=== PATIENT | male | born 1950 | race American Indian/Alaskan Native ===

== ENCOUNTER 2020-09-15 06:28 | Observation (INO) | payer MEDICARE, OTHER ==
[2020-09-15] MEDS ORDERED: dilTIAZem 25 MG/5 ML INJ IV ONE (06:48)
--- NOTE | 2020-09-15 06:55 | Emergency Department Report ---
HPI - General Chief Complaint: Arrhythmia/Palpitations Time Seen by Provider: 09/15/20 06:42 - HPI HPI: Room 4 The patient is a 70-year-old male present with a chief complaint of "feeling hot." The patient states he was at home when he just began feeling hot. Patient states "I was just burning up." The patient states this is why he called 911. Patient denied ever having palpitations, chest pain shortness of breath or cough. Patient states in the ED he feels significantly better than before and currently has no complaints. Patient has a history of atrial fibrillation and is on Xarelto ED Past Medical Hx - Past Medical History Previous Medical History?: Yes Hx Hypertension: Yes Hx HIV: Yes (Unknown last CD4. Followed at [facility]) Additional medical history: Afib - Surgical History Past Surgical History?: No Additional Surgical History: Herniorrhaphy - Family History Family history: no significant - Social History Smoking Status: Former Smoker (None since 1985) Substance Use Type: None (Denies illicit drug use) ED Review of Systems ROS: Stated complaint: AFIB RVR Other details as noted in HPI Constitutional: fever (Subjective) Eyes: denies: eye pain ENT: denies: throat pain Respiratory: denies: shortness of breath Cardiovascular: denies: chest pain, palpitations Endocrine: no symptoms reported Gastrointestinal: denies: abdominal pain Genitourinary: denies: dysuria Musculoskeletal: denies: back pain Neurological: denies: headache Physical Exam - Physical Exam Vital Signs: Vital Signs 09/15/20 06:34 Temperature 98.2 F Pulse Rate 169 H Respiratory 22 Rate Blood Pressure 151/121 [Left] O2 Sat by Pulse 99 Oximetry Physical Exam: GENERAL: The patient is well-developed well-nourished male lying on stretcher no t appearing to be in acute distress. [] HEENT: Normocephalic. Atraumatic. Extraocular motions are intact. Patient has moist mucous membranes. NECK: Supple. Trachea midline CHEST/LUNGS: Clear to auscultation. There is no respiratory distress noted. HEART/CARDIOVASCULAR: Irregularly irregular. There is tachycardia. There is no gallop rub or murmur. ABDOMEN: Abdomen is soft, nontender. Patient has normal bowel sounds. There is no abdominal distention. SKIN: There is no rash. There is no edema. There is no diaphoresis. NEURO: The patient is awake, alert, and oriented. The patient is cooperative. The patient has no focal neurologic deficits. The patient has normal speech MUSCULOSKELETAL: There is no evidence of acute injury. ED Course Vital Signs 09/15/20 06:34 Temperature 98.2 F Pulse Rate 169 H Respiratory 22 Rate Blood Pressure 151/121 [Left] O2 Sat by Pulse 99 Oximetry ED Medical Decision Making - Lab Data Result diagrams: 09/15/20 07:12 09/15/20 07:12 - EKG Data -: EKG Interpreted by Me Rate: tachycardia (139 bpm) - EKG Data When compared to previous EKG there are: previous EKG unavailable Interpretation: other (A. fib with a rapid ventricular response) - Radiology Data Radiology results: report reviewed (Chest x-ray), image reviewed (Chest x-ray) interpreted by me: Chest x-ray-no focal infiltrates, no pneumothorax. No foreign body seen [facility] [address] [place] [address] XRay Report Signed Patient: ISSA PAYAN MR#: [id number] 4 : 1950 Acct:[id number] Age/Sex: 70 / M ADM Date: 09/15/20 Loc: ED Attending Dr: Ordering Physician: ROBERT GONZALEZ MD Date of Service: 09/15/20 Procedure(s): XR chest 1V ap Accession Number(s): [id number] cc: ROBERT GONZALEZ MD Fluoro Time In Minutes: CHEST 1 VIEW INDICATION: Tachycardia. COMPARISON: None FINDINGS: Support devices: None. Heart: Within normal limits. Lungs/Pleura: No acute air space or interstitial disease. Additional findings: None. IMPRESSION: No acute findings. Signer Name: Ray Hall Jr, MD Signed: 09/15/2020 7:55 AM Workstation Name: [id number] Transcribed By: TTR Dictated By: RAY HALL JR, MD Electronically Authenticated By: RAY HALL JR, MD Signed Date/Time: 09/15/20754 DD/ 4 TD/TT: Print Cancel - Differential Diagnosis A. fib with rapid ventricular response, pneumonia, Critical care attestation.: If time is entered above; I have spent that time in minutes in the direct care of this critically ill patient, excluding procedure time. ED Disposition Clinical Impression: Atrial fibrillation with rapid ventricular response, Hypomagnesemia Disposition: OP ADMIT IP TO THIS HOSP Is pt being admited?: Yes Does the pt Need Aspirin: Yes Condition: Fair Time of Disposition: 10:45 (Hospitalist paged)
[2020-09-15 07:43] LABS: Basophils % (Auto) 0.1 % (0.0-1.8); Hematocrit 34.9 % (35.5-45.6); Hemoglobin 11.8 gm/dl (11.8-15.2); Lymphocytes # (Auto) 0.6 K/mm3 (1.2-5.4); Lymphocytes % (Auto) 4.1 % (13.4-35.0); Mean Corpuscular HGB Conc 34 % (32-34); Mean Corpuscular Volume 96 fl (84-94); Monocytes # (Auto) 1.3 K/mm3 (0.0-0.8); Monocytes % (Auto) 9.4 % (0.0-7.3); Platelet Count 233 K/mm3 (140-440); Red Blood Count 3.65 M/mm3 (3.65-5.03); Red Cell Distribution Width 12.8 % (13.2-15.2)
[2020-09-15] MEDS ORDERED: SODIUM CHLORIDE 0.9% 1000 ML 1,000 ML IV ONE ×2 (07:49→09:42)
--- NOTE | 2020-09-15 08:00 | XRay Report ---
CHEST 1 VIEW INDICATION: Tachycardia. COMPARISON: None FINDINGS: Support devices: None. Heart: Within normal limits. Lungs/Pleura: No acute air space or interstitial disease. Additional findings: None. IMPRESSION: No acute findings. Signer Name: Ray Suazo Jr, MD Signed: 09/15/2020 7:55 AM Workstation Name: [id number]
[2020-09-15 08:05] LABS: Alanine Aminotransferase 25 units/L (7-56); Albumin 2.3 g/dL (3.9-5); BUN/Creatinine Ratio 11; Blood Urea Nitrogen 30 mg/dL (9-20); Calcium 8.7 mg/dL (8.4-10.2); Hemolysis Index 42
[2020-09-15 09:37] LABS: Free T4 (Free Thyroxine) 1.68 ng/dL (0.76-1.46)
[2020-09-15] MEDS ORDERED: MAGNESIUM SULFATE 2 GM/50 ML BAG IV ONE (10:33)
[2020-09-15] MEDS ORDERED: dilTIAZem/D5W 100 MG/100 ML BAG IV SCH (11:00)
--- NOTE | 2020-09-15 11:30 | History and Physical Report ---
History of Present Illness Date of admission: 09/15/20 10:52 Chief complaint: I was not feeling good this morning History of present illness: 70 YO Male with HIV, HTN, Atrial Fib presents to ED for evaluation. Patient reports "I was just burning up". Patient states that he was not feeling well this morning. EMS was notified and upon arrival the patient was found to be in distress with a heart rate in the 170s. Patient transported to [facility] for further care and evaluation of the aforementioned symptoms. The patient was seen and evaluated in the emergency department. All lab and imaging studies reviewed. The patient was found to have a heart rate in the 170s on the medical psychotherapist as well as a blood pressure of 74/45. Patient initiated on IV Cardizem for rate control and control of hemodynamic instability with mild improvement in symptoms. Patient admitted to [facility] and initiated on IV antiarrhythmic therapy with amiodarone. Patient also found to have acute kidney injury, systemic inflammatory response syndrome, hyponatremia, hypomagnesemia, as well as metabolic acidosis. Patient denies fever, chills, chest pain, palpitations, productive cough, skin rash, recent ill contacts, or known exposure to COVID-19. No prior admission for review. Cardiology team consulted in ED. Nephrology team consulted in ED. No medication listed at time of admission for reconciliation. Advanced care planning conducted in ED. Past History Past Medical History: atrial fib, HIV/AIDS, hypertension Past Surgical History: hernia repair Social history: single. denies: smoking, alcohol abuse, prescription drug abuse Family history: hypertension Medications and Allergies Allergies Allergy/AdvReac Type Severity Reaction Status Date / Time No Known Allergies Allergy Unverified 09/15/20 06:37 Active Meds: Active Medications Diltiazem HCl (Cardizem/D5w 100mg/100ml) 100 mg in 100 mls @ 5 mls/hr IV TITR EDIE; Protocol Review of Systems Constitutional: weakness, no weight loss, no weight gain, no fever, no chills Ears, nose, mouth and throat: no ear pain, no ear discharge, no tinnitis, no decreased hearing, no nose pain Cardiovascular: no chest pain, no orthopnea, no palpitations, no rapid/irregular heart beat Respiratory: no cough, no excessive sputum, no hemoptysis Gastrointestinal: no nausea, no vomiting, no diarrhea, no constipation Genitourinary Male: no hematuria, no flank pain, no discharge, no urinary freque ncy, no urinary hesitancy Rectal: no pain, no incontinence, no bleeding Musculoskeletal: no neck pain, no low back pain, no shooting leg pain, no leg numbness/tingling Integumentary: no rash, no pruritis, no redness, no sores, no jaundice Neurological: no head injury, no transient paralysis, no paralysis, no numbness, no syncope, no tremors Psychiatric: no anxiety, no memory loss, no change in sleep habits, no insomnia, no hypersomnia, no change in appetite Endocrine: no cold intolerance, no heat intolerance, no polyphagia, no excessive thirst, no polydipsia, no nocturia, no excessive sweating, no flushing Hematologic/Lymphatic: no easy bruising, no easy bleeding, no lymphadenopathy Allergic/Immunologic: no persistent infections, no anaphylaxis Exam - Constitutional Vitals: Temp Pulse Resp BP Pulse Ox 98.2 F 109 H 21 100/63 93 09/15/20 06:34 09/15/20 07:50 09/15/20 07:50 09/15/20 10:00 09/15/20 09:00 General appearance: Present: mild distress - EENT Eyes: Present: PERRL ENT: hearing intact, clear oral mucosa - Neck Neck: Present: supple, normal ROM - Respiratory Respiratory effort: normal Respiratory: bilateral: CTA - Cardiovascular Rhythm: irregularly irregular Heart Sounds: Present: S1 & S2. Absent: rub, click - Extremities Extremities: pulses symmetrical, No edema Peripheral Pulses: within normal limits - Abdominal General gastrointestinal: Present: soft, non-tender, non-distended, normal bowel sounds Male genitourinary: Present: normal - Integumentary Integumentary: Present: clear, warm, dry - Musculoskeletal Musculoskeletal: gait normal, strength equal bilaterally - Psychiatric Psychiatric: appropriate mood/affect, intact judgment & insight - Neurologic Neurologic: CNII-XII intact, moves all extremities HEART Score - HEART Score Troponin: Troponin T < 0.010 ng/mL (0.00-0.029) 09/15/20 10:13 Results - Labs CBC & Chem 7: 09/15/20 07:12 09/15/20 07:12 Labs: Abnormal lab results 09/15/20 09/15/20 09/15/20 Range/Units 07:12 07:12 07:12 WBC 13.5 H (4.5-11.0) K/mm3 Hct 34.9 L (35.5-45.6) % MCV 96 H (84-94) fl RDW 12.8 L (13.2-15.2) % Lymph % (Auto) 4.1 L (13.4-35.0) % [place] % (Auto) 9.4 H (0.0-7.3) % Lymph # (Auto) 0.6 L (1.2-5.4) K/mm3 [place] # (Auto) 1.3 H (0.0-0.8) K/mm3 Seg Neutrophils % 86.4 H (40.0-70.0) % Seg Neutrophils # 11.7 H (1.8-7.7) K/mm3 Sodium 128 L (137-145) mmol/L Chloride 96.5 L (98-107) mmol/L Carbon Dioxide 20 L (22-30) mmol/L BUN 30 H (9-20) mg/dL Creatinine 2.8 H (0.8-1.3) mg/dL Glucose 115 H (75-100) mg/dL Magnesium 1.00 L (1.7-2.3) mg/dL Albumin 2.3 L (3.9-5) g/dL Free T4 (0.76-1.46) ng/dL 09/15/20 Range/Units 07:12 WBC (4.5-11.0) K/mm3 Hct (35.5-45.6) % MCV (84-94) fl RDW (13.2-15.2) % Lymph % (Auto) (13.4-35.0) % [place] % (Auto) (0.0-7.3) % Lymph # (Auto) (1.2-5.4) K/mm3 [place] # (Auto) (0.0-0.8) K/mm3 Seg Neutrophils % (40.0-70.0) % Seg Neutrophils # (1.8-7.7) K/mm3 Sodium (137-145) mmol/L Chloride (98-107) mmol/L Carbon Dioxide (22-30) mmol/L BUN (9-20) mg/dL Creatinine (0.8-1.3) mg/dL Glucose (75-100) mg/dL Magnesium (1.7-2.3) mg/dL Albumin (3.9-5) g/dL Free T4 1.68 H (0.76-1.46) ng/dL Assessment and Plan - Patient Problems (1) Atrial fibrillation with rapid ventricular response Status: Acute Plan to address problem: Chads 2Vasc Score:1, patient treated with IV Cardizem with mild improvement in symptoms. Cardizem discontinued and patient initiated on IV amiodarone therapy. Thyroid panel, urine drug screen, cardiology team consulted. (2) Acute kidney injury (LOLI) with acute tubular necrosis (ATN) Status: Acute Plan to address problem: IV fluid resuscitation therapy, BMP, repeat BMP in a.m. to monitor serum creatinine as well as GFR. Urine sodium, urine creatinine, bilateral renal ultrasound, PSA level. (3) Systemic inflammatory response syndrome Status: Acute Plan to address problem: Empiric IV antibiotic therapy x1 dose, CBC, CMP, repeat CBC in a.m. No source of infection found at this time. (4) Hyponatremia syndrome Status: Acute Plan to address problem: IV fluid resuscitation therapy as clinically indicated, BMP, repeat BMP in a.m. (5) Metabolic acidosis Status: Acute Plan to address problem: IV fluid resuscitation therapy, BMP, repeat BMP in a.m., supportive care. (6) Hypomagnesemia Status: Acute Plan to address problem: Repleted in ED. (7) DVT prophylaxis Status: Acute Plan to address problem: SCD to bilateral lower extremities while in bed, patient is ambulatory. (8) Advance care planning Status: Acute Plan to address problem: Disease education conducted, care plan discussed, diagnosis discussed, prognosis discussed, patient is full code. Patient knowledges understanding and agreement with care plan, +30 minutes.
[2020-09-15] MEDS ORDERED: AMIODARONE 900 MG in DEXTROSE 5% IN WATER 482 ML IV SCH (13:00)
[2020-09-15 15:01] VITALS: BP 94/60
[2020-09-15] MEDS ORDERED: ALBUTEROL 2.5 MG/3 ML NEBU IH PRN (17:34)
[2020-09-15] MEDS ORDERED: ACETAMINOPHEN 325 MG TAB PO PRN (17:34)
[2020-09-15] MEDS ORDERED: SODIUM CHLORIDE 0.9% 1000 ML 1,000 ML IV SCH (17:45)
[2020-09-15] MEDS ORDERED: cefTRIAXone/NS 1 GM/50 ML 1 GM/50 ML BAG IV ONE (18:00)
[2020-09-15] MEDS ORDERED: FAMOTIDINE 20 MG TAB PO SCH (22:00)
--- NOTE | 2020-09-16 10:47 | Electrocardiograph Report ---
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
--- NOTE | 2020-09-16 11:52 | Event Note ---
Date: 09/15/20 Pt left AMA prior to completion of workup and treatment. Pt informed that departure may result in worsening symptoms and even .
== END 2020-09-15 14:50 | disposition left against medical advice (07) ==
LOC: ED 06:28 → 3A 10:52 → IMCU 13:03
PROVIDERS: ADMIT Internal Medicine; ATTEND Internal Medicine
DX: I48.20 Chronic atrial fibrillation, unspecified (principal); R65.10 Systemic inflammatory response syndrome (SIRS) of non-infectious origin without acute organ dysfunction; N17.9 Acute kidney failure, unspecified; E83.42 Hypomagnesemia; E87.1 Hypo-osmolality and hyponatremia; E87.2 Acidosis; Z21 Asymptomatic human immunodeficiency virus [HIV] infection status; Z98.890 Other specified postprocedural states; Z87.891 Personal history of nicotine dependence
CPT/HCPCS: 36415; 71045; 80053; 83735; 84439; 84443; 84484; 85025; 93005; G0378; J0282; J3475; J7030; J7060

== ENCOUNTER 2020-09-17 09:20 | Inpatient (IN) | payer MEDICARE, OTHER ==
[2020-09-17] MEDS ORDERED: SODIUM CHLORIDE 0.9% 1000 ML 1,000 ML IV ONE ×2 (10:43→13:10)
[2020-09-17] MEDS ORDERED: dilTIAZem 25 MG/5 ML INJ IV ONE (10:43)
--- NOTE | 2020-09-17 10:45 | Emergency Department Report ---
HPI - General Chief Complaint: Dyspnea/Respdistress Time Seen by Provider: 09/17/20 09:58 - HPI HPI: This is a 70-year-old male presents to the emergency department with a complaint of a 3-day history of shortness of breath. He has a past medical history of HIV, hypertension and atrial fibrillation. The patient says that he is compliant with his Xarelto. The patient was admitted to this hospital 2 days ago, 09/15, for similar complaints. Shortly after the patient was admitted he left AMA. His diagnosis from that day was A. fib with RVR, hyponatremia, hypomagnesemia and acute kidney injury. 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 He has not taken anything for symptoms prior to presentation today. He denies any fever, chest pain, lower extremity swelling. ED Past Medical Hx - Past Medical History Previous Medical History?: Yes Hx Hypertension: Yes Hx HIV: Yes (Unknown last CD4. Followed at [place]) Additional medical history: Afib - Surgical History Additional Surgical History: Herniorrhaphy - Social History Smoking Status: Former Smoker (None since 1985) Substance Use Type: None (Denies illicit drug use) ED Review of Systems ROS: Stated complaint: SOB Other details as noted in HPI Comment: All other systems reviewed and negative Constitutional: denies: chills, fever Eyes: denies: eye pain, vision change ENT: denies: ear pain, throat pain Respiratory: shortness of breath, wheezing. denies: cough Cardiovascular: denies: chest pain, edema Gastrointestinal: denies: abdominal pain, vomiting Genitourinary: denies: dysuria, discharge Musculoskeletal: denies: back pain, arthralgia Skin: denies: rash, lesions Neurological: denies: headache, weakness Physical Exam - Physical Exam Vital Signs: Vital Signs 09/17/20 09:47 Temperature 98.3 F Pulse Rate 74 Respiratory 35 H Rate Blood Pressure 78/43 [Right] O2 Sat by Pulse 95 Oximetry Physical Exam: GENERAL: The patient is ill-appearing. HENT: Normocephalic. Atraumatic. Patient has moist mucous membranes. EYES: Extraocular motions are intact. Pupils equal reactive to light bilaterally. NECK: Supple. Trachea is midline. CHEST/LUNGS: Coarse breath sounds throughout the chest. There is some tachypnea but no accessory muscle use. HEART/CARDIOVASCULAR: Irregular rhythm with mild to moderate tachycardia. ABDOMEN: Abdomen is soft, nontender. Patient has normal bowel sounds. SKIN: Skin is warm and dry. NEURO: The patient is awake, alert, and oriented. The patient is cooperative. The patient has no focal neurologic deficits. Normal speech. MUSCULOSKELETAL: There is no tenderness or deformity. There is no limitation range of motion. ED Course Vital Signs 09/17/20 09:47 Temperature 98.3 F Pulse Rate 74 Respiratory 35 H Rate Blood Pressure 78/43 [Right] O2 Sat by Pulse 95 Oximetry ED Medical Decision Making - Lab Data Result diagrams: 09/17/20 10:47 09/17/20 10:47 Lab Results 09/17/20 09/17/20 09/17/20 Range/Units 10:28 10:47 10:47 WBC 11.1 H (4.5-11.0) K/mm3 RBC 3.44 L (3.65-5.03) M/mm3 Hgb 11.2 L (11.8-15.2) gm/dl Hct 32.8 L (35.5-45.6) % MCV 95 H (84-94) fl MCH 32 (28-32) pg MCHC 34 (32-34) % RDW 13.7 (13.2-15.2) % Plt Count 168 (140-440) K/mm3 Seg Neutrophils % Inspector Fibrous Wallboard PT 32.9 H (12.2-14.9) Sec. INR 3.16 H (0.87-1.13) APTT 51.1 H (24.2-36.6) Sec. ABG pH 7.508 H (7.320-7.450) POC ABG pCO2 22.8 L (32.0-48.0) mmHg POC ABG pO2 66.8 L (83-108) mmHg POC ABG HCO3 17.7 ABG O2 Saturation 93.4 (0-100) POC ABG Base Excess -3.5 ABG Hemoglobin 12.7 (12.0-17.5) ABG Oxyhemoglobin 92.7 L (94-98) ABG Methemoglobin 0.3 (0.0-1.5) ABG Sodium 127.4 L (136.0-145.0) mmol/L ABG Potassium 4.7 H (3.40-4.50) mmol/L ABG Chloride 101.0 (98-107) mmol/L ABG Glucose 121 H (65-95) mg/dL Carboxyhemoglobin 0.4 L (0.5-1.5) FiO2 % 21 Sodium (137-145) mmol/L Potassium (3.6-5.0) mmol/L Chloride (98-107) mmol/L Carbon Dioxide (22-30) mmol/L Anion Gap mmol/L BUN (9-20) mg/dL Creatinine (0.8-1.3) mg/dL Estimated GFR ml/min BUN/Creatinine Ratio % Glucose (75-100) mg/dL Calcium (8.4-10.2) mg/dL Magnesium (1.7-2.3) mg/dL Total Bilirubin (0.1-1.2) mg/dL AST (5-40) units/L ALT (7-56) units/L Alkaline Phosphatase (35-129) units/L Troponin T (0.00-0.029) ng/mL NT-Pro-B Natriuret Pep (0-900) pg/mL Total Protein (6.3-8.2) g/dL Albumin (3.9-5) g/dL Albumin/Globulin Ratio % Arterial Blood Glucose 121 H (65-95) mg/dL Arterial Blood Ionized Calcium 5.0 (4.6-5.3) mg/dL 09/17/20 09/17/20 09/17/20 Range/Units 10:47 10:47 10:47 WBC (4.5-11.0) K/mm3 RBC (3.65-5.03) M/mm3 Hgb (11.8-15.2) gm/dl Hct (35.5-45.6) % MCV (84-94) fl MCH (28-32) pg MCHC (32-34) % RDW (13.2-15.2) % Plt Count (140-440) K/mm3 Seg Neutrophils % PT (12.2-14.9) Sec. INR (0.87-1.13) APTT (24.2-36.6) Sec. ABG pH (7.320-7.450) POC ABG pCO2 (32.0-48.0) mmHg POC ABG pO2 (83-108) mmHg POC ABG HCO3 ABG O2 Saturation (0-100) POC ABG Base Excess ABG Hemoglobin (12.0-17.5) ABG Oxyhemoglobin (94-98) ABG Methemoglobin (0.0-1.5) ABG Sodium (136.0-145.0) mmol/L ABG Potassium (3.40-4.50) mmol/L ABG Chloride (98-107) mmol/L ABG Glucose (65-95) mg/dL Carboxyhemoglobin (0.5-1.5) FiO2 % Sodium 125 L (137-145) mmol/L Potassium 4.7 (3.6-5.0) mmol/L Chloride 95.3 L (98-107) mmol/L Carbon Dioxide 17 L (22-30) mmol/L Anion Gap 17 mmol/L BUN 64 H (9-20) mg/dL Creatinine 4.6 H D (0.8-1.3) mg/dL Estimated GFR 15 ml/min BUN/Creatinine Ratio 14 % Glucose 104 H (75-100) mg/dL Calcium 9.1 (8.4-10.2) mg/dL Magnesium 1.80 (1.7-2.3) mg/dL Total Bilirubin 1.20 (0.1-1.2) mg/dL AST 69 H (5-40) units/L ALT 40 (7-56) units/L Alkaline Phosphatase 86 (35-129) units/L Troponin T 0.061 H D (0.00-0.029) ng/mL NT-Pro-B Natriuret Pep 42523 H (0-900) pg/mL Total Protein 6.7 (6.3-8.2) g/dL Albumin 1.9 L (3.9-5) g/dL Albumin/Globulin Ratio 0.4 % Arterial Blood Glucose (65-95) mg/dL Arterial Blood Ionized Calcium (4.6-5.3) mg/dL - EKG Data -: EKG Interpreted by Me - EKG Data When compared to previous EKG there are: no significant change Interpretation: unchanged when compared t (09/15/20), other (Atrial fibrillation with a rate of 125 bpm, normal axis. Q waves to the septal leads. No ST elevation MA) - Radiology Data Radiology results: image reviewed interpreted by me: Chest x-ray shows mild cardiomegaly and pulmonary vascular congestion. No obvious pneumonia. No pneumothorax. - Medical Decision Making This patient presents to the emergency department with a 3-day history of shortness of breath. He left AMA after being admitted 2 nights ago. He presents today in atrial fibrillation with RVR with a heart rate of about 120-130. Per triage and EMS records the patient came in on a room air pulse ox of about 85%. He was given oxygen via nasal cannula and then a nonrebreather. After the patient spent some time on the nonrebreather his oxygen was removed and he had a room air blood gas that showed some mild hypoxemia, respiratory alkalosis and mild metabolic acidosis. We were able to get the patient down to supplemental oxygen via nasal cannula and he is keeping his oxygen saturation in the mid 90s. EKG does not have any morphology consistent with ST elevation myocardial infarc tion. Chest x-ray shows some pulmonary vascular congestion and cardiomegaly. No obvious pneumonia or pneumothorax. The patient's labs have multiple abnormalities including hyponatremia with a sodium of 125, acute kidney injury with a creatinine level of 4.6 and a GFR of about 15, elevated troponin and a very elevated BNP level. While the patient initially came in with some low blood pressure, at the time of my initial examination his blood pressure had normalized but he did remain in A. fib with RVR. He was given a small dose of Cardizem with some improvement in the rate rate but he did not convert to sinus rhythm. However, once again, his blood pressure dropped. He was given 2 L of IV fluid resuscitation and currently has a MAP of 67. Patient will be admitted to the hospital for further evaluation treatment was accepted for patient by the hospitalist, Dr. Zamora. Critical Care Time: Yes Critical care time in (mins) excluding proc time.: 35 Critical care attestation.: If time is entered above; I have spent that time in minutes in the direct care of this critically ill patient, excluding procedure time. Critical care time was spent on this patient in doing his initial evaluation, multiple reevaluations, ordering and interpretation of labs and imaging, IV calcium channel ruddy for his A. fib with RVR for rate control, multiple liters of IV fluid for treatment of his hypotension, multiple discussions with the patient and discussion with the hospitalist service. Critical Care Time: 35 minutes ED Disposition Clinical Impression: Hyponatremia syndrome, Acute kidney injury (LOLI) with acute tubular necrosis (ATN), Atrial fibrillation with RVR, NSTEMI (non-ST elevated myocardial infarction) Hypotension Qualifiers: Hypotension type: unspecified hypotension type Qualified Code(s): I95.9 - Hypotension, unspecified Disposition: 09 OP ADMIT IP TO THIS HOSP Is pt being admited?: Yes Condition: Serious Time of Disposition: 14:54
--- NOTE | 2020-09-17 11:08 | XRay Report ---
CHEST 1 VIEW INDICATION: SOB. COMPARISON: 09/15/2020 FINDINGS: Support devices: None. Heart: Heart size appears borderline and slightly increased since the exam 2 days ago. Lungs/Pleura: Mild central pulmonary venous congestion is suspected. No evidence for infiltrate, pleu ral effusion or pneumothorax. Additional findings: None. IMPRESSION: Borderline heart size. Mild central pulmonary venous congestion. Signer Name: Ray Suazo Jr, MD Signed: 09/17/2020 11:04 AM Workstation Name: [id number]
[2020-09-17 11:25] LABS: Hematocrit 32.8 % (35.5-45.6); Hemoglobin 11.2 gm/dl (11.8-15.2); Mean Corpuscular HGB Conc 34 % (32-34); Mean Corpuscular Volume 95 fl (84-94); Platelet Count 168 K/mm3 (140-440); Red Blood Count 3.44 M/mm3 (3.65-5.03); Red Cell Distribution Width 13.7 % (13.2-15.2)
[2020-09-17 11:35] LABS: INR 3.16 (0.87-1.13)
[2020-09-17 11:36] LABS: Partial Thromboplastin Time 51.1 Sec. (24.2-36.6)
[2020-09-17 12:14] LABS: Albumin 1.9 g/dL (3.9-5); Calcium 9.1 mg/dL (8.4-10.2)
--- NOTE | 2020-09-17 13:51 | History and Physical Report ---
History of Present Illness Chief complaint: I feel short of breath History of present illness: 70 YO Male with HIV, HTN, Atrial Fib currently of therapeutic anticoagulation with Xarelto presents to ED for evaluation. Patient reports "I just can't breathe". Patient states that he has experienced shortness of breath over the past 3 days with persistently worsening symptoms over the same timeframe. EMS notified and upon arrival the patient was found to be in distress with a pulse oximetry of 85% on room air. The patient was placed on supplemental oxygen and subsequently transported to [facility] for further care and evaluation of the aforementioned symptoms. The patient was admitted to this hospital 2 days ago, 09/15, for similar complaints and was found to have A. fib with RVR, hyponatremia, hypomagnesemia and acute kidney injury. Shortly after the patient was admitted he left AMA. The patient was seen and evaluated in the emergency department. All lab and imaging studies reviewed. The patient was also found to have a pulse oximetry of 86% on room air which is consistent with acute hypoxemic respiratory failure. The patient was found to have atrial fibrillation with rapid ventricular response, metabolic acidosis, acute kidney injury, as well as symptoms consistent with acute CHF decompensation. The patient was found to be hypotensive with a blood pressure of 78/43 which resulted in a MAP less than 65. Patient admitted to [facility] due to increased risk of cardiopulmonary decompensation. Patient treated with antiarrhythmic therapy in the emergency department, and initiated on CHF protocol. Cardiology team consulted in ED. Nephrology team consulted in ED. Prior admission on 09/16/2019 reviewed. No medication listed at time of admission for reconciliation. Advanced care planning conducted in ED. Past History Past Medical History: atrial fib, HIV/AIDS, hypertension Past Surgical History: hernia repair Social history: single. denies: smoking, alcohol abuse Family history: hypertension Medications and Allergies Allergies Allergy/AdvReac Type Severity Reaction Status Date / Time No Known Allergies Allergy Unverified 09/15/20 06:37 Active Meds: Active Medications Sodium Chloride (Nacl 0.9% 1000 Ml) 1,000 mls @ 125 mls/hr IV ONCE ONE Stop: 09/17/20 18:42 Last Admin: 09/17/20 11:16 Dose: 125 mls/hr Documented by: Sodium Chloride (Nacl 0.9% 1000 Ml) 1,000 mls @ 999 mls/hr IV BOLUS ONE Stop: 09/17/20 14:10 Last Admin: 09/17/20 13:10 Dose: 999 mls/hr Documented by: Review of Systems Constitutional: no weight loss, no weight gain, no fever, no chills Ears, nose, mouth and throat: no ear pain, no ear discharge, no tinnitis, no decreased hearing, no nasal congestion Cardiovascular: shortness of breath, no chest pain, no palpitations, no rapid/irregular heart beat Respiratory: no cough, no cough with sputum, no shortness of breath Gastrointestinal: no abdominal pain, no nausea, no vomiting, no diarrhea Genitourinary Male: no hematuria, no flank pain, no discharge, no urinary frequency, no nocturia Rectal: no pain, no incontinence, no bleeding Musculoskeletal: no neck stiffness, no neck pain, no shooting arm pain, no low back pain, no leg numbness/tingling Integumentary: no rash, no pruritis, no redness, no sores, no wounds, no jaundice Neurological: no head injury, no transient paralysis, no paralysis, no weakness, no parathesias, no seizures Psychiatric: no anxiety, no change in sleep habits, no insomnia, no hypersomnia Endocrine: no cold intolerance, no heat intolerance, no polyphagia, no nocturia, no excessive sweating, no flushing Hematologic/Lymphatic: no easy bruising, no easy bleeding, no lymphedema Exam - Constitutional Vitals: Temp Pulse Resp BP Pulse Ox 98.3 F 134 H 35 H 78/43 98 09/17/20 09:47 09/17/20 11:15 09/17/20 09:47 09/17/20 09:47 09/17/20 10:58 General appearance: Present: mild distress - EENT Eyes: Present: PERRL ENT: hearing intact, clear oral mucosa - Neck Neck: Present: supple, normal ROM - Respiratory Respiratory effort: normal Respiratory: bilateral: diminished, rhonchi - Cardiovascular Rhythm: irregularly irregular Heart Sounds: Present: S1 & S2. Absent: rub, click - Extremities Extremities: pulses symmetrical, No edema Peripheral Pulses: within normal limits - Abdominal General gastrointestinal: Present: soft, non-tender, non-distended, normal bowel sounds Male genitourinary: Present: normal - Integumentary Integumentary: Present: clear, warm, dry - Musculoskeletal Musculoskeletal: gait normal, strength equal bilaterally - Psychiatric Psychiatric: appropriate mood/affect, intact judgment & insight - Neurologic Neurologic: CNII-XII intact, moves all extremities HEART Score - HEART Score Troponin: Troponin T 0.061 ng/mL (0.00-0.029) H D 09/17/20 10:47 Results - Labs CBC & Chem 7: 09/17/20 10:47 09/17/20 10:47 Labs: Abnormal lab results 09/17/20 09/17/20 09/17/20 Range/Units 10:47 10:47 10:47 WBC 11.1 H (4.5-11.0) K/mm3 RBC 3.44 L (3.65-5.03) M/mm3 Hgb 11.2 L (11.8-15.2) gm/dl Hct 32.8 L (35.5-45.6) % MCV 95 H (84-94) fl PT 32.9 H (12.2-14.9) Sec. INR 3.16 H (0.87-1.13) APTT 51.1 H (24.2-36.6) Sec. Sodium 125 L (137-145) mmol/L Chloride 95.3 L (98-107) mmol/L Carbon Dioxide 17 L (22-30) mmol/L BUN 64 H (9-20) mg/dL Creatinine 4.6 H D (0.8-1.3) mg/dL Glucose 104 H (75-100) mg/dL AST 69 H (5-40) units/L Troponin T 0.061 H D (0.00-0.029) ng/mL NT-Pro-B Natriuret Pep (0-900) pg/mL Albumin 1.9 L (3.9-5) g/dL 09/17/20 Range/Units 10:47 WBC (4.5-11.0) K/mm3 RBC (3.65-5.03) M/mm3 Hgb (11.8-15.2) gm/dl Hct (35.5-45.6) % MCV (84-94) fl PT (12.2-14.9) Sec. INR (0.87-1.13) APTT (24.2-36.6) Sec. Sodium (137-145) mmol/L Chloride (98-107) mmol/L Carbon Dioxide (22-30) mmol/L BUN (9-20) mg/dL Creatinine (0.8-1.3) mg/dL Glucose (75-100) mg/dL AST (5-40) units/L Troponin T (0.00-0.029) ng/mL NT-Pro-B Natriuret Pep 65532 H (0-900) pg/mL Albumin (3.9-5) g/dL Assessment and Plan - Patient Problems (1) CHF (congestive heart failure) Current Visit: Yes Status: Acute Qualifiers: Heart failure type: systolic Heart failure chronicity: acute Qualified Code(s): I50.21 - Acute systolic (congestive) heart failure Plan to address problem: Strict I's/O, monitor urine output every shift, daily weight, afterload reduction, blood pressure control, diuresis, cardiology team consulted. (2) Acute hypoxemic respiratory failure Current Visit: Yes Status: Acute Plan to address problem: Supplemental oxygen, pulse oximetry, nebulizer therapy, supportive care. (3) Acute kidney injury (LOLI) with acute tubular necrosis (ATN) Current Visit: Yes Status: Acute Plan to address problem: Monitor fluid balance, monitor urine output every shift, nephrology team consulted in ED, urine electrolytes, renal ultrasound, PSA level. (4) Atrial fibrillation with RVR Current Visit: Yes Status: Acute Plan to address problem: Medical cardioversion with Cardizem, admit to IMCU, telemetry monitoring, blood pressure control, cardiology team consulted. Resume therapeutic anticoagulation. (5) Hypotension Current Visit: Yes Status: Acute Qualifiers: Hypotension type: unspecified hypotension type Qualified Code(s): I95.9 - Hypotension, unspecified Plan to address problem: Monitor blood pressure every shift, IV fluid resuscitation therapy as clinically indicated, IMCU monitoring. (6) DVT prophylaxis Current Visit: No Status: Acute Plan to address problem: SCD to bilateral lower extremities while in bed, continue therapeutic anticoagulation. (7) Advance care planning Current Visit: No Status: Acute Plan to address problem: Disease education conducted, care plan discussed, diagnoses discussed, patient is full code, patient knowledges understanding and agreement with care plan, +30 minutes.
[2020-09-17] MEDS ORDERED: ONDANSETRON 4 MG/2 ML INJ IV PRN (13:52)
[2020-09-17] MEDS ORDERED: ALBUTEROL 2.5 MG/3 ML NEBU IH PRN (13:52)
[2020-09-17 14:37] LABS: Total Cells Counted 100
[2020-09-17 14:39] LABS: Platelet Estimate Consistent w Auto; RBC Morphology Normal
[2020-09-17] MEDS ORDERED: HYDROmorphone 1 MG/1 ML INJ ONE (14:49)
[2020-09-17 15:32] LABS: Chol/HDL Ratio 5.33 %
[2020-09-17] MEDS: HYDROmorphone 1 MG/1 ML INJ IV PRN (15:42)
[2020-09-17] MEDS ORDERED: SODIUM CHLORIDE 0.9% 1000 ML 2,000 ML IV ONE (16:05)
[2020-09-17 18:09] LABS: Hematocrit 31.1 % (35.5-45.6); Hemoglobin 10.7 gm/dl (11.8-15.2); Mean Corpuscular HGB Conc 34 % (32-34); Mean Corpuscular Volume 96 fl (84-94); Platelet Count 142 K/mm3 (140-440); Red Blood Count 3.25 M/mm3 (3.65-5.03); Red Cell Distribution Width 13.3 % (13.2-15.2)
[2020-09-17 18:23] LABS: INR 3.04 (0.87-1.13); Partial Thromboplastin Time 50.9 Sec. (24.2-36.6)
[2020-09-17] MEDS: FUROSEMIDE 20 MG/2 ML INJ IV SCH (18:55)
--- NOTE | 2020-09-17 19:09 | Procedure Note ---
Date of procedure: 09/17/20 Pre-op diagnosis: CHF Post-op diagnosis: same Procedure: Right femoral vein triple-lumen catheter placement under ultrasound guidance The patient was prepped and draped in the usual sterile fashion. A timeout was taken to verify the correct patient, procedure and correct operative site. Under ultrasound guidance and the Seldinger technique was utilized to access the right femoral vein without difficulty. Local anesthesia was obtained with 2% lidocaine. A seeker needle was advanced into the right femoral vein under ultrasound guidance. A guidewire was then placed via the seeker needle and the seeker needle was then removed over the guidewire. A scalpel was used to incise the skin and a dilator was then passed over the guidewire and subsequently removed. A preflushed triple-lumen catheter was then advanced to the right femoral vein. All 3 ports flush and draw with ease. The triple-lumen catheter was then sutured in place. A Biopatch was placed at the insertion site and a sterile dressing was applied over the triple-lumen catheter. Estimated blood loss minimal. Complications none. Anesthesia: local Surgeon: TATUM PAYNE Estimated blood loss: minimal Pathology: none Condition: stable Disposition: other
[2020-09-17] MEDS ORDERED: HYDROmorphone 1 MG/1 ML INJ IV ONE (21:02)
[2020-09-17] MEDS ORDERED: SODIUM CHLORIDE 0.9% 250ML 250 ML IV ONE ×2 (21:53→23:22)
[2020-09-18] MEDS ORDERED: SODIUM CHLORIDE 0.9% 500 ML 500 ML IV ONE (00:23)
[2020-09-18 03:33] LABS: Hemoglobin 10.9 gm/dl (11.8-15.2); Mean Corpuscular HGB Conc 34 % (32-34); Mean Corpuscular Volume 96 fl (84-94); Platelet Count 138 K/mm3 (140-440); Red Blood Count 3.32 M/mm3 (3.65-5.03); Red Cell Distribution Width 13.5 % (13.2-15.2)
[2020-09-18 04:04] LABS: Albumin 2.5 g/dL (3.9-5)
[2020-09-18 05:16] LABS: Calcium 8.2 mg/dL (8.4-10.2)
[2020-09-18] MEDS: FUROSEMIDE 20 MG/2 ML INJ IV SCH ×2 (06:04→17:56)
[2020-09-18 06:43] LABS: Total Cells Counted 100
[2020-09-18 06:44] LABS: Anisocytosis 1+
[2020-09-18 06:46] LABS: Macrocytosis 1+; Platelet Estimate Consistent w Auto
--- NOTE | 2020-09-18 09:23 | Progress Note ---
Assessment and Plan Assessment and plan: Acute hypoxic respiratory failure. Etiology secondary to heart failure. Acute heart failure. Await echocardiogram to assess for diastolic versus systolic etiology. Atrial fibrillation with RVR Acute kidney injury Elevated troponin Coagulopathy 09/18/2020. Await echocardiogram to assess for diastolic versus systolic etiology. Patient with elevated BNP greater than 18,000. Patient apparently wa s admitted approximately 3 days ago but left AMA. Cardiology consulted for heart failure, A. fib with RVR and elevated troponin. Patient denies chest pain. Also, patient with elevated creatinine of 4.7 with creatinine 2.8 on recent admission. We do not have a previous creatinine as a baseline to compare. Nephrology consultation pending. Follow-up renal ultrasound. Patient with coagulopathy and INR 3.04. Unsure if patient was on anticoagulation for A. fib. History Interval history: No new issues overnight. Hospitalist Physical - Constitutional Vitals: Temp Pulse Resp BP Pulse Ox 98.8 F 127 H 25 H 100/68 97 09/18/20 08:00 09/18/20 06:11 09/18/20 06:11 09/18/20 06:11 09/18/20 08:01 General appearance: Present: mild distress - EENT Eyes: Present: PERRL, EOM intact ENT: hearing intact, clear oral mucosa, dentition normal - Neck Neck: Present: supple, normal ROM - Respiratory Respiratory effort: normal Respiratory: bilateral: CTA - Cardiovascular Rhythm: regular Heart Sounds: Present: S1 & S2. Absent: gallop, rub - Extremities Extremities: no ischemia, No edema, Full ROM - Abdominal General gastrointestinal: soft, non-tender, non-distended, normal bowel sounds - Integumentary Integumentary: Present: clear, warm, dry - Neurologic Neurologic: CNII-XII intact, moves all extremities HEART Score - HEART Score Troponin: Troponin T 0.057 ng/mL (0.00-0.029) H 09/17/20 16:36 Results - Labs CBC & Chem 7: 09/18/20 03:19 09/18/20 03:19 Labs: Laboratory Last Values WBC 8.5 K/mm3 (4.5-11.0) 09/18/20 03:19 RBC 3.32 M/mm3 (3.65-5.03) L 09/18/20 03:19 Hgb 10.9 gm/dl (11.8-15.2) L 09/18/20 03:19 Hct 32.0 % (35.5-45.6) L 09/18/20 03:19 MCV 96 fl (84-94) H 09/18/20 03:19 MCH 33 pg (28-32) H 09/18/20 03:19 MCHC 34 % (32-34) 09/18/20 03:19 RDW 13.5 % (13.2-15.2) 09/18/20 03:19 Plt Count 138 K/mm3 (140-440) L 09/18/20 03:19 Add Manual Diff Complete 09/18/20 03:19 Total Counted 100 09/18/20 03:19 Seg Neutrophils % It Instructor 09/17/20 10:47 Seg Neuts % (Manual) 95.0 % (40.0-70.0) H 09/18/20 03:19 Lymphocytes % (Manual) 3.0 % (13.4-35.0) L 09/18/20 03:19 Monocytes % (Manual) 2.0 % (0.0-7.3) 09/18/20 03:19 Nucleated RBC % Not Reportable 09/18/20 03:19 Seg Neutrophils # Man 8.1 K/mm3 (1.8-7.7) H 09/18/20 03:19 Band Neutrophils # 0.0 K/mm3 09/18/20 03:19 Lymphocytes # (Manual) 0.3 K/mm3 (1.2-5.4) L 09/18/20 03:19 Abs React Lymphs (Man) 0.0 K/mm3 09/18/20 03:19 Monocytes # (Manual) 0.2 K/mm3 (0.0-0.8) 09/18/20 03:19 Eosinophils # (Manual) 0.0 K/mm3 (0.0-0.4) 09/18/20 03:19 Basophils # (Manual) 0.0 K/mm3 (0.0-0.1) 09/18/20 03:19 Metamyelocytes # 0.0 K/mm3 09/18/20 03:19 Myelocytes # 0.0 K/mm3 09/18/20 03:19 Promyelocytes # 0.0 K/mm3 09/18/20 03:19 Blast Cells # 0.0 K/mm3 09/18/20 03:19 WBC Morphology Not Reportable 09/18/20 03:19 Hypersegmented Neuts Not Reportable 09/18/20 03:19 Hyposegmented Neuts Not Reportable 09/18/20 03:19 Hypogranular Neuts Not Reportable 09/18/20 03:19 Smudge Cells Not Reportable 09/18/20 03:19 Toxic Granulation Not Reportable 09/18/20 03:19 Toxic Vacuolation Not Reportable 09/18/20 03:19 Dohle Bodies Not Reportable 09/18/20 03:19 Pelger-Huet Anomaly Not Reportable 09/18/20 03:19 Vinh Rods Not Reportable 09/18/20 03:19 Platelet Estimate Consistent w auto 09/18/20 03:19 Clumped Platelets Not Reportable 09/18/20 03:19 Plt Clumps, EDTA Not Reportable 09/18/20 03:19 Large Platelets Not Reportable 09/18/20 03:19 Giant Platelets Not Reportable 09/18/20 03:19 Platelet Satelliting Not Reportable 09/18/20 03:19 Plt Morphology Comment Not Reportable 09/18/20 03:19 RBC Morphology Not Reportable 09/18/20 03:19 Dimorphic RBCs Not Reportable 09/18/20 03:19 Polychromasia Not Reportable 09/18/20 03:19 Hypochromasia Not Reportable 09/18/20 03:19 Poikilocytosis Not Reportable 09/18/20 03:19 Anisocytosis 1+ 09/18/20 03:19 Microcytosis Not Reportable 09/18/20 03:19 Macrocytosis 1+ 09/18/20 03:19 Spherocytes Not Reportable 09/18/20 03:19 Pappenheimer Bodies Not Reportable 09/18/20 03:19 Sickle Cells Not Reportable 09/18/20 03:19 Target Cells Not Reportable 09/18/20 03:19 Tear Drop Cells Not Reportable 09/18/20 03:19 Ovalocytes Not Reportable 09/18/20 03:19 Helmet Cells Not Reportable 09/18/20 03:19 [place] Bodies Not Reportable 09/18/20 03:19 [place] Rings Not Reportable 09/18/20 03:19 [place] Cells Not Reportable 09/18/20 03:19 Bite Cells Not Reportable 09/18/20 03:19 Crenated Cell Not Reportable 09/18/20 03:19 Elliptocytes Not Reportable 09/18/20 03:19 Acanthocytes (Spur) Not Reportable 09/18/20 03:19 Rouleaux Not Reportable 09/18/20 03:19 Hemoglobin C Crystals Not Reportable 09/18/20 03:19 Schistocytes Not Reportable 09/18/20 03:19 Malaria parasites Not Reportable 09/18/20 03:19 Zachary Bodies Not Reportable 09/18/20 03:19 Hem Pathologist Commnt No 09/18/20 03:19 PT 31.9 Sec. (12.2-14.9) H 09/17/20 17:35 INR 3.04 (0.87-1.13) H 09/17/20 17:35 APTT 50.9 Sec. (24.2-36.6) H 09/17/20 17:35 ABG pH 7.508 (7.320-7.450) H 09/17/20 10:28 POC ABG pCO2 22.8 mmHg (32.0-48.0) L 09/17/20 10:28 POC ABG pO2 66.8 mmHg (83-108) L 09/17/20 10:28 POC ABG HCO3 17.7 09/17/20 10:28 ABG O2 Saturation 93.4 (0-100) 09/17/20 10:28 POC ABG Base Excess -3.5 09/17/20 10:28 ABG Hemoglobin 12.7 (12.0-17.5) 09/17/20 10:28 ABG Oxyhemoglobin 92.7 (94-98) L 09/17/20 10:28 ABG Methemoglobin 0.3 (0.0-1.5) 09/17/20 10:28 ABG Sodium 127.4 mmol/L (136.0-145.0) L 09/17/20 10:28 ABG Potassium 4.7 mmol/L (3.40-4.50) H 09/17/20 10:28 ABG Chloride 101.0 mmol/L (98-107) 09/17/20 10:28 ABG Glucose 121 mg/dL (65-95) H 09/17/20 10:28 Carboxyhemoglobin 0.4 (0.5-1.5) L 09/17/20 10:28 FiO2 % 21 09/17/20 10:28 Sodium 137 mmol/L (137-145) D 09/18/20 03:19 Potassium 4.7 mmol/L (3.6-5.0) 09/18/20 03:19 Chloride 106.1 mmol/L (98-107) 09/18/20 03:19 Carbon Dioxide 16 mmol/L (22-30) L 09/18/20 03:19 Anion Gap 20 mmol/L 09/18/20 03:19 BUN 70 mg/dL (9-20) H 09/18/20 03:19 Creatinine 4.7 mg/dL (0.8-1.3) H 09/18/20 03:19 Estimated GFR 15 ml/min 09/18/20 03:19 BUN/Creatinine Ratio 15 % 09/18/20 03:19 Glucose 104 mg/dL (75-100) H 09/18/20 03:19 Calcium 8.2 mg/dL (8.4-10.2) L 09/18/20 03:19 Magnesium 1.80 mg/dL (1.7-2.3) 09/17/20 10:47 Total Bilirubin 1.60 mg/dL (0.1-1.2) H 09/18/20 03:19 AST 128 units/L (5-40) H 09/18/20 03:19 ALT 67 units/L (7-56) H 09/18/20 03:19 Alkaline Phosphatase 90 units/L (35-129) 09/18/20 03:19 Troponin T 0.057 ng/mL (0.00-0.029) H 09/17/20 16:36 NT-Pro-B Natriuret Pep 07171 pg/mL (0-900) H 09/17/20 10:47 Total Protein 5.2 g/dL (6.3-8.2) L D 09/18/20 03:19 Albumin 2.5 g/dL (3.9-5) L 09/18/20 03:19 Albumin/Globulin Ratio 0.9 % 09/18/20 03:19 Triglycerides 137 mg/dL (2-149) 09/17/20 13:54 Cholesterol 48 mg/dL (50-199) L 09/17/20 13:54 LDL Cholesterol Direct 4 mg/dL (50-130) L 09/17/20 13:54 HDL Cholesterol 9 mg/dL (40-59) L 09/17/20 13:54 Cholesterol/HDL Ratio 5.33 % 09/17/20 13:54 Arterial Blood Glucose 121 mg/dL (65-95) H 09/17/20 10:28 Arterial Blood Ionized Calcium 5.0 mg/dL (4.6-5.3) 09/17/20 10:28 Microbiology: Microbiology 09/18/20 02:01 Peripheral/Venous Blood Culture - Preliminary Culture in Progress 09/18/20 03:19 Peripheral/Venous Blood Culture - Preliminary Culture in Progress Gardner/IV: Voiding Method Condom Catheter Active Medications - Current Medications Current Medications: Generic Name Dose Route Start Last Admin Trade Name Freq PRN Reason Stop Dose Admin Acetaminophen 650 mg 09/17/20 13:52 Acetaminophen 325 Mg Tab PO Q4H PRN Pain MILD(1-3)/Fever >100.5/ANGEL Albuterol 2.5 mg 09/17/20 13:52 09/17/20 20:47 Albuterol 2.5 Mg/3 Ml Nebu IH 2.5 mg Q4HRT PRN Administration Shortness Of Breath Furosemide 20 mg 09/17/20 18:00 09/18/20 06:04 Furosemide 20 Mg/2 Ml Inj IV 20 mg BID@0600,1800 EDIE Administration Hydromorphone HCl 0.25 mg 09/17/20 14:50 09/17/20 15:42 Hydromorphone 1 Mg/1 Ml Inj IV 0.25 mg ONCE PRN Administration Pain , Severe (7-10) Ondansetron HCl 4 mg 09/17/20 13:52 Ondansetron 4 Mg/2 Ml Inj IV Q8H PRN Nausea And Vomiting Rivaroxaban 15 mg 09/18/20 17:00 Rivaroxaban 15 Mg Tab PO QPMDIAB [facility] Protocol Sodium Chloride 10 ml 09/17/20 22:00 09/17/20 22:00 Sodium Chloride 0.9% 10 Ml Flush Syringe IV 10 ml BID EDIE Administration Sodium Chloride 10 ml 09/17/20 13:52 Sodium Chloride 0.9% 10 Ml Flush Syringe IV PRN PRN LINE FLUSH
[2020-09-18] MEDS ORDERED: HEPARIN 10,000 UNITS/10 ML VIAL IV PRN (11:02)
--- NOTE | 2020-09-18 11:04 | Consultation ---
History of Present Illness - Reason for Consult Consult date: 09/18/20 acute renal failure, chronic renal failure - History of Present Illness The patientg is a 70 YO male with history sisgnificant for HTN, HIV, Atrial Fib on Xarelto and CKD who presented to [facility] ED 09/17 with c/o worsening sob for the past 3 days. Patient was not able to provide any history and there was no family member at the bedside. EMS notified and upon arrival the patient was found to be in distress with a pulse oximetry of 85% on room air. The patient was placed on supplemental oxygen and subsequently transported to [facility] ED. Of note the patient was admitted to this hospital on 09/15 and was found to have A. fib with RVR, hyponatremia, hypomagnesemia and acute kidney injury. Shortly after the patient was admitted he left AMA. The patient was found to have Atrial fibrillation with rapid ventricular response, metabolic acidosis, acute kidney injury, as well as symptoms/signs consistent with acute CHF dec ompensation. The patient was also found to be hypotensive with a blood pressure of 78/43. Patient admitted to ICU to manage above. Labs significant for Creat 4.7, BUN 70 and bicarb 16. Nephrology was consulted ofr further evaluation and treatment of LOLI. Past History Past Medical History: atrial fib, HIV/AIDS, hypertension Past Surgical History: hernia repair Social history: single. denies: smoking, alcohol abuse Family history: hypertension Medications and Allergies Allergies Allergy/AdvReac Type Severity Reaction Status Date / Time No Known Allergies Allergy Unverified 09/15/20 06:37 Home Medications Medication Instructions Recorded Confirmed Last Taken Type AtorvaSTATin [Lipitor] 20 mg PO QHS 09/18/20 09/18/20 Unknown History Dolutegravir [Tivicay] 50 mg PO DAILY 09/18/20 09/18/20 Unknown History Emtricitabine/Tenofov Alafenam 1 tab PO DAILY 09/18/20 09/18/20 Unknown History [Descovy 200-25 mg (Nf)] Rivaroxaban [Xarelto] 15 mg PO QDAY 09/18/20 09/18/20 Unknown History allopurinoL [Zyloprim] 300 mg PO QDAY 09/18/20 09/18/20 Unknown History carvediloL [Coreg] 25 mg PO BID 09/18/20 09/18/20 Unknown History lisinopriL [Lisinopril] 20 mg PO DAILY 09/18/20 09/18/20 Unknown History Active Meds: Active Medications Acetaminophen (Acetaminophen 325 Mg Tab) 650 mg PO Q4H PRN PRN Reason: Pain MILD(1-3)/Fever >100.5/ANGEL Albuterol (Albuterol 2.5 Mg/3 Ml Nebu) 2.5 mg IH Q4HRT PRN PRN Reason: Shortness Of Breath Last Admin: 09/17/20 20:47 Dose: 2.5 mg Documented by: Furosemide (Furosemide 20 Mg/2 Ml Inj) 20 mg IV BID@0600,1800 [facility] Last Admin: 09/18/20 06:04 Dose: 20 mg Documented by: Hydromorphone HCl (Hydromorphone 1 Mg/1 Ml Inj) 0.25 mg IV ONCE PRN PRN Reason: Pain , Severe (7-10) Last Admin: 09/17/20 15:42 Dose: 0.25 mg Documented by: Ondansetron HCl (Ondansetron 4 Mg/2 Ml Inj) 4 mg IV Q8H PRN PRN Reason: Nausea And Vomiting Rivaroxaban (Rivaroxaban 15 Mg Tab) 15 mg PO QPMDIAB [facility]; Protocol Sodium Chloride (Sodium Chloride 0.9% 10 Ml Flush Syringe) 10 ml IV BID [facility] Last Admin: 09/18/20 10:25 Dose: 10 ml Documented by: Sodium Chloride (Sodium Chloride 0.9% 10 Ml Flush Syringe) 10 ml IV PRN PRN PRN Reason: LINE FLUSH Review of Systems ROS unobtainable: due to mental status Exam - Vital Signs Vital signs: Vital Signs Temp Pulse Resp BP Pulse Ox 98.3 F 74 35 H 78/43 95 09/17/20 09:47 09/17/20 09:47 09/17/20 09:47 09/17/20 09:47 09/17/20 09:47 Results - Lab Results 09/18/20 15:07 09/18/20 03:19 Most recent lab results ABG pH 7.508 (7.320-7.450) H 09/17/20 10:28 ABG O2 Saturation 93.4 (0-100) 09/17/20 10:28 Calcium 8.2 mg/dL (8.4-10.2) L 09/18/20 03:19 Magnesium 1.80 mg/dL (1.7-2.3) 09/17/20 10:47 Assessment and Plan 1. Acute kidney injury: Vasomotor LOLI in the setting of shock. Urine studies and Renal US ordered. Monitor renal function. Creatinine level is increasing. Renal prognosis is guarded. Avoid nephrotoxic agents. Meds dosage based on GFR. Monitor for [employer] needs. 2. FEN: Metabolic acidosis, monitor. Monitor volume status and lytes. 3. Acute hypoxic respiratory failure: Likely 2/2 CHF. Covid test pending. Supplemental O2. 4. Acute CHF: Await echocardiogram results. CHF orderset / pathway. Monitor. 5. Atrial fibrillation with RVR: Followed by Cards. 6. Elevated troponin: Trend. 7. Coagulopathy: Trend. 8. Hypotension: Multifactorial, monitor. Pressors as needed. 9. Metabolic encephalopathy: Monitor. 10. Anemia, POA: Monitor. Subjective: Patient was seen and examined at the bedside. Objective: General appearance: well-developed, appears stated age, appears emaciated, slight resp distress noted HEENT: ATNC, L pupil dilated Neck: trachea midline Respiratory: bilateral rhonchi Heart: irregular, S1S2, no murmur Gastrointestinal: soft, normoactive bowel sounds, not tender Integumentary: no obvious rash Ext: no edema Neurologic: lethargic, only able to tell his name, moving extremities, not following any command
--- NOTE | 2020-09-18 11:05 | Consultation ---
History of Present Illness Consult date: 09/18/20 Requesting physician: VICENTE AMADOR Consult reason: atrial fibrillation History of present illness: 70-year-old male with history of HIV hypertension atrial fibrillation was in the hospital last week signed out AMA for atrial fibrillation with uncontrolled rate. Presents back with shortness of breath history is obtained from the chart as patient is unable to give history secondary to altered mental status. Mita ent was placed on Cardizem drip placed in the CCU for hypotension hypoxemia as his initial saturation was 85%. Patient is in atrial fibrillation heart rate 110s. And hypotension. As per the chart no nausea no vomiting. No fever no chills. Past History Past Medical History: atrial fib, HIV/AIDS, hypertension Past Surgical History: hernia repair Social history: single. denies: smoking, alcohol abuse Family history: hypertension Medications and Allergies Allergies Allergy/AdvReac Type Severity Reaction Status Date / Time No Known Allergies Allergy Unverified 09/15/20 06:37 Home Medications Medication Instructions Recorded Confirmed Last Taken Type AtorvaSTATin [Lipitor] 20 mg PO QHS 09/18/20 09/18/20 Unknown History Dolutegravir [Tivicay] 50 mg PO DAILY 09/18/20 09/18/20 Unknown History Emtricitabine/Tenofov Alafenam 1 tab PO DAILY 09/18/20 09/18/20 Unknown History [Descovy 200-25 mg (Nf)] Rivaroxaban [Xarelto] 15 mg PO QDAY 09/18/20 09/18/20 Unknown History allopurinoL [Zyloprim] 300 mg PO QDAY 09/18/20 09/18/20 Unknown History carvediloL [Coreg] 25 mg PO BID 09/18/20 09/18/20 Unknown History lisinopriL [Lisinopril] 20 mg PO DAILY 09/18/20 09/18/20 Unknown History Active Meds: Active Medications Acetaminophen (Acetaminophen 325 Mg Tab) 650 mg PO Q4H PRN PRN Reason: Pain MILD(1-3)/Fever >100.5/ANGEL Albuterol (Albuterol 2.5 Mg/3 Ml Nebu) 2.5 mg IH Q4HRT PRN PRN Reason: Shortness Of Breath Last Admin: 09/17/20 20:47 Dose: 2.5 mg Documented by: Furosemide (Furosemide 20 Mg/2 Ml Inj) 20 mg IV BID@0600,1800 [facility] Last Admin: 09/18/20 06:04 Dose: 20 mg Documented by: Heparin Sodium (Porcine) (Heparin 10,000 Units/10 Ml Vial) 2,900 unit 40 unit/kg (2900 unit) IV ONCE ONE Stop: 09/18/20 11:03 Heparin Sodium (Porcine) (Heparin 10,000 Units/10 Ml Vial) 2,900 unit 40 unit/kg (2900 unit) IV Q6H PRN PRN Reason: Anti-Xa Assay < 0.1 units/ml Hydromorphone HCl (Hydromorphone 1 Mg/1 Ml Inj) 0.25 mg IV ONCE PRN PRN Reason: Pain , Severe (7-10) Last Admin: 09/17/20 15:42 Dose: 0.25 mg Documented by: Heparin Sodium/Sodium Chloride (Heparin/ 0.45% Nacl-25,000 Unit/500 Ml) 25,000 unit in 500 mls @ 21.69 mls/hr IV TITR EDIE; Protocol Amiodarone HCl 900 mg/ (Dextrose) 500 mls @ 33.333 mls/hr IV DIRECT EDIE; P rotocol Ondansetron HCl (Ondansetron 4 Mg/2 Ml Inj) 4 mg IV Q8H PRN PRN Reason: Nausea And Vomiting Sodium Chloride (Sodium Chloride 0.9% 10 Ml Flush Syringe) 10 ml IV BID [facility] Last Admin: 09/18/20 10:25 Dose: 10 ml Documented by: Sodium Chloride (Sodium Chloride 0.9% 10 Ml Flush Syringe) 10 ml IV PRN PRN PRN Reason: LINE FLUSH Review of Systems ROS unobtainable: due to mental status Physical Examination Vital Signs Temp Pulse Resp BP Pulse Ox 98.3 F 74 35 H 78/43 95 09/17/20 09:47 09/17/20 09:47 09/17/20 09:47 09/17/20 09:47 09/17/20 09:47 General appearance: mild distress HEENT: Positive: PERRL Neck: Positive: neck supple Cardiac: Positive: Irregularly Regular, Tachycardia Lungs: Positive: Decreased Breath Sounds, Wheezes Neuro: Positive: Other Abdomen: Positive: Soft Extremities: Present: normal. Absent: edema Results 09/18/20 03:19 09/18/20 03:19 Cardiac Enzymes 09/17/20 09/18/20 Range/Units 10:47 03:19 AST 69 H 128 H (5-40) units/L Coagulation 09/17/20 09/17/20 Range/Units 10:47 17:35 PT 32.9 H 31.9 H (12.2-14.9) Sec. INR 3.16 H 3.04 H (0.87-1.13) APTT 51.1 H 50.9 H (24.2-36.6) Sec. Lipids 09/17/20 Range/Units 13:54 Triglycerides 137 (2-149) mg/dL Cholesterol 48 L (50-199) mg/dL HDL Cholesterol 9 L (40-59) mg/dL Cholesterol/HDL Ratio 5.33 % CBC 09/17/20 09/17/20 09/18/20 Range/Units 10:47 17:35 03:19 WBC 11.1 H 10.1 8.5 (4.5-11.0) K/mm3 RBC 3.44 L 3.25 L 3.32 L (3.65-5.03) M/mm3 Hgb 11.2 L 10.7 L 10.9 L (11.8-15.2) gm/dl Hct 32.8 L 31.1 L 32.0 L (35.5-45.6) % Plt Count 168 142 138 L (140-440) K/mm3 Comprehensive Metabolic Panel 09/17/20 09/17/20 09/18/20 Range/Units 10:47 17:35 03:19 Sodium 125 L 137 D (137-145) mmol/L Potassium 4.7 4.7 (3.6-5.0) mmol/L Chloride 95.3 L 106.1 (98-107) mmol/L Carbon Dioxide 17 L 16 L (22-30) mmol/L BUN 64 H 70 H (9-20) mg/dL Creatinine 4.6 H D 4.6 H 4.7 H (0.8-1.3) mg/dL Glucose 104 H 104 H (75-100) mg/dL Calcium 9.1 8.2 L (8.4-10.2) mg/dL AST 69 H 128 H (5-40) units/L ALT 40 67 H (7-56) units/L Alkaline Phosphatase 86 90 (35-129) units/L Total Protein 6.7 5.2 L D (6.3-8.2) g/dL Albumin 1.9 L 2.5 L (3.9-5) g/dL - Imaging and Cardiology Echo: pending EKG interpretations - Telemetry EKG Rhythm: Atrial Fibrillation (Atrial fibrillation with RVR) Assessment and Plan 70-year-old male with acute respiratory failure acute atrial fibrillation with RVR acute renal failure altered mental status malnourished has expiratory wheeze on Lasix suggest IV amiodarone for rate control and IV heparin and hold Xarelto echo was ordered poor prognosis - Patient Problems (1) AMS (altered mental status) Current Visit: Yes Status: Acute Qualifiers: Altered mental status type: somnolence Qualified Code(s): R40.0 - Somnolence (2) Acute hypoxemic respiratory failure Current Visit: Yes Status: Acute (3) Acute kidney injury (LOLI) with acute tubular necrosis (ATN) Current Visit: Yes Status: Acute (4) Atrial fibrillation with RVR Current Visit: Yes Status: Acute (5) NSTEMI (non-ST elevated myocardial infarction) Current Visit: Yes Status: Acute (6) Metabolic acidosis Current Visit: No Status: Acute (7) Systemic inflammatory response syndrome Current Visit: No Status: Acute
[2020-09-18] MEDS ORDERED: SODIUM CHLORIDE 0.9% 1000 ML 1,000 ML IV SCH (11:15)
--- NOTE | 2020-09-18 11:40 | Consultation ---
History of Present Illness Consult date: 09/18/20 Requesting physician: TATUM PAYNE Reason for consult: other (Atrial Fibrillation with RVR; LOLI) History of present illness: PULMONARY/CCM CONSULT NOTE (Full dictation # [id number]) Please see dictated notes for full details Past History Past Medical History: atrial fib, HIV/AIDS, hypertension Past Surgical History: hernia repair Social history: single. denies: smoking, alcohol abuse Family history: hypertension Medications and Allergies Allergies Allergy/AdvReac Type Severity Reaction Status Date / Time No Known Allergies Allergy Unverified 09/15/20 06:37 Home Medications Medication Instructions Recorded Confirmed Last Taken Type AtorvaSTATin [Lipitor] 20 mg PO QHS 09/18/20 09/18/20 Unknown History Dolutegravir [Tivicay] 50 mg PO DAILY 09/18/20 09/18/20 Unknown History RX: Emtricitabine/Tenofov Alafenam 1 tab PO DAILY 09/18/20 09/18/20 Unknown History [Descovy 200-25 mg (Nf)] Rivaroxaban [Xarelto] 15 mg PO QDAY 09/18/20 09/18/20 Unknown History allopurinoL [Zyloprim] 300 mg PO QDAY 09/18/20 09/18/20 Unknown History carvediloL [Coreg] 25 mg PO BID 09/18/20 09/18/20 Unknown History lisinopriL [Lisinopril] 20 mg PO DAILY 09/18/20 09/18/20 Unknown History Active Meds: Active Medications Acetaminophen (Acetaminophen 325 Mg Tab) 650 mg PO Q4H PRN PRN Reason: Pain MILD(1-3)/Fever >100.5/ANGEL Albuterol (Albuterol 2.5 Mg/3 Ml Nebu) 2.5 mg IH Q4HRT PRN PRN Reason: Shortness Of Breath Last Admin: 09/17/20 20:47 Dose: 2.5 mg Documented by: Furosemide (Furosemide 20 Mg/2 Ml Inj) 20 mg IV BID@0600,1800 ED[facility] Last Admin: 09/18/20 06:04 Dose: 20 mg Documented by: Heparin Sodium (Porcine) (Heparin 10,000 Units/10 Ml Vial) 2,900 unit 40 unit/kg (2900 unit) IV ONCE ONE Stop: 09/18/20 12:03 Heparin Sodium (Porcine) (Heparin 10,000 Units/10 Ml Vial) 2,900 unit 40 unit/kg (2900 unit) IV Q6H PRN PRN Reason: Anti-Xa Assay < 0.1 units/ml Hydromorphone HCl (Hydromorphone 1 Mg/1 Ml Inj) 0.25 mg IV ONCE PRN PRN Reason: Pain , Severe (7-10) Last Admin: 09/17/20 15:42 Dose: 0.25 mg Documented by: Heparin Sodium/Sodium Chloride (Heparin/ 0.45% Nacl-25,000 Unit/500 Ml) 25,000 unit in 500 mls @ 21 mls/hr IV TITR EDIE; Protocol Amiodarone HCl 900 mg/ (Dextrose) 500 mls @ 33.333 mls/hr IV DIRECT EDIE; Protocol Ondansetron HCl (Ondansetron 4 Mg/2 Ml Inj) 4 mg IV Q8H PRN PRN Reason: Nausea And Vomiting Sodium Chloride (Sodium Chloride 0.9% 10 Ml Flush Syringe) 10 ml IV BID EDIE Last Admin: 09/18/20 10:25 Dose: 10 ml Documented by: Sodium Chloride (Sodium Chloride 0.9% 10 Ml Flush Syringe) 10 ml IV PRN PRN PRN Reason: LINE FLUSH Physical Examination Vital signs: Vital Signs Temp Pulse Resp BP Pulse Ox 98.3 F 74 35 H 78/43 95 09/17/20 09:47 09/17/20 09:47 09/17/20 09:47 09/17/20 09:47 09/17/20 09:47 Results - Laboratory Findings CBC and BMP: 09/18/20 03:19 09/18/20 03:19 ABG ABG pH 7.508 (7.320-7.450) H 09/17/20 10:28 POC ABG pCO2 22.8 mmHg (32.0-48.0) L 09/17/20 10:28 POC ABG pO2 66.8 mmHg (83-108) L 09/17/20 10:28 POC ABG HCO3 17.7 09/17/20 10:28 ABG O2 Saturation 93.4 (0-100) 09/17/20 10:28 PT/INR, D-dimer PT 31.9 Sec. (12.2-14.9) H 09/17/20 17:35 INR 3.04 (0.87-1.13) H 09/17/20 17:35 Abnormal lab findings: Abnormal Labs 09/17/20 09/17/20 09/17/20 10:28 10:47 10:47 WBC 11.1 H RBC 3.44 L Hgb 11.2 L Hct 32.8 L MCV 95 H MCH Plt Count Seg Neuts % (Manual) Lymphocytes % (Manual) 4.0 L Seg Neutrophils # Man 10.7 H Lymphocytes # (Manual) 0.4 L PT 32.9 H INR 3.16 H APTT 51.1 H ABG pH 7.508 H POC ABG pCO2 22.8 L POC ABG pO2 66.8 L ABG Oxyhemoglobin 92.7 L ABG Sodium 127.4 L ABG Potassium 4.7 H ABG Glucose 121 H Carboxyhemoglobin 0.4 L Sodium Chloride Carbon Dioxide BUN Creatinine Glucose Calcium Total Bilirubin AST ALT Troponin T NT-Pro-B Natriuret Pep Total Protein Albumin Cholesterol LDL Cholesterol Direct HDL Cholesterol Arterial Blood Glucose 121 H 09/17/20 09/17/20 09/17/20 10:47 10:47 13:54 WBC RBC Hgb Hct MCV MCH Plt Count Seg Neuts % (Manual) Lymphocytes % (Manual) Seg Neutrophils # Man Lymphocytes # (Manual) PT INR APTT ABG pH POC ABG pCO2 POC ABG pO2 ABG Oxyhemoglobin ABG Sodium ABG Potassium ABG Glucose Carboxyhemoglobin Sodium 125 L Chloride 95.3 L Carbon Dioxide 17 L BUN 64 H Creatinine 4.6 H D Glucose 104 H Calcium Total Bilirubin AST 69 H ALT Troponin T 0.061 H D 0.058 H NT-Pro-B Natriuret Pep 98905 H Total Protein Albumin 1.9 L Cholesterol 48 L LDL Cholesterol Direct 4 L HDL Cholesterol 9 L Arterial Blood Glucose 09/17/20 09/17/20 09/17/20 16:36 17:35 17:35 WBC RBC 3.25 L Hgb 10.7 L Hct 31.1 L MCV 96 H MCH 33 H Plt Count Seg Neuts % (Manual) Lymphocytes % (Manual) Seg Neutrophils # Man Lymphocytes # (Manual) PT 31.9 H INR 3.04 H APTT 50.9 H ABG pH POC ABG pCO2 POC ABG pO2 ABG Oxyhemoglobin ABG Sodium ABG Potassium ABG Glucose Carboxyhemoglobin Sodium Chloride Carbon Dioxide BUN Creatinine Glucose Calcium Total Bilirubin AST ALT Troponin T 0.057 H NT-Pro-B Natriuret Pep Total Protein Albumin Cholesterol LDL Cholesterol Direct HDL Cholesterol Arterial Blood Glucose 09/17/20 09/18/20 09/18/20 17:35 03:19 03:19 WBC RBC 3.32 L Hgb 10.9 L Hct 32.0 L MCV 96 H MCH 33 H Plt Count 138 L Seg Neuts % (Manual) 95.0 H Lymphocytes % (Manual) 3.0 L Seg Neutrophils # Man 8.1 H Lymphocytes # (Manual) 0.3 L PT INR APTT ABG pH POC ABG pCO2 POC ABG pO2 ABG Oxyhemoglobin ABG Sodium ABG Potassium ABG Glucose Carboxyhemoglobin Sodium Chloride Carbon Dioxide 16 L BUN 70 H Creatinine 4.6 H 4.7 H Glucose 104 H Calcium 8.2 L Total Bilirubin 1.60 H AST 128 H ALT 67 H Troponin T NT-Pro-B Natriuret Pep Total Protein 5.2 L D Albumin 2.5 L Cholesterol LDL Cholesterol Direct HDL Cholesterol Arterial Blood Glucose
[2020-09-18] MEDS: AMIODARONE 900 MG in DEXTROSE 5% IN WATER 482 ML IV SCH (11:51)
[2020-09-18] MEDS: HEPARIN/ 0.45% NACL DRIP 25,000 UNIT/500 ML BAG IV SCH (11:52)
[2020-09-18] MEDS ORDERED: HEPARIN 10,000 UNITS/10 ML VIAL IV ONE (12:02)
--- NOTE | 2020-09-18 12:16 | Ultrasound Report ---
Renal ultrasound INDICATION: Kidney disease FINDINGS: Right kidney measures 13.7 cm in left kidney 12.9 cm. Gardner catheter seen within the bladde r. No hydronephrosis. No renal stone or mass is seen. The bladder is not decompressed with Gardner cath eter. IMPRESSION: No acute findings are seen. Gardner catheter is present however there is still fluid in the bladder. Cl inical correlation for Gardner catheter functioning. Signer Name: Ebenezer Grijalva MD Signed: 09/18/2020 12:11 PM Workstation Name: [id number]
[2020-09-18 13:29] LABS: Bacteria,Urine 4+ /HPF (Negative); Bilirubin,Urine NEG (Negative); Blood,Urine SM (Negative); Color,Urine Yellow (Yellow); Granular Casts,Urine 3 /LPF; Hyaline Casts,Urine 3 /LPF; Mucus,Urine FEW /HPF; Urobilinogen,Urine < 2.0 mg/dL (<2.0)
[2020-09-18] MEDS ORDERED: VANCOMYCIN/NS 1 GM/250 ML 1 GM/250 ML BAG IV ONE (13:50)
[2020-09-18] MEDS: FAMOTIDINE 20 MG/2 ML INJ IV SCH (15:12)
[2020-09-18] MEDS: CEFEPIME/NS 1 GM/100 ML 1 GM/100 ML BAG IV SCH (15:12)
[2020-09-18] MEDS: PHENYLEPHRINE 100 MG in SODIUM CHLORIDE 0.9% 90 ML IV SCH (15:13)
[2020-09-18 15:45] LABS: Hematocrit 31.3 % (35.5-45.6); Hemoglobin 10.7 gm/dl (11.8-15.2)
[2020-09-18 15:57] LABS: INR 1.73 (0.87-1.13)
[2020-09-18 15:58] LABS: Partial Thromboplastin Time 40.8 Sec. (24.2-36.6)
[2020-09-18] MEDS ORDERED: VANCOMYCIN 1,500 MG in SODIUM CHLORIDE 0.9% 500 ML 500 ML IV ONE (16:00)
[2020-09-18] MEDS ORDERED: RIVAROXABAN 15 MG TAB PO SCH (17:00)
[2020-09-18] MEDS ORDERED: MORPHINE 4 MG/1 ML INJ IV ONE (21:08)
--- NOTE | 2020-09-19 01:05 | Consultation ---
DATE OF CONSULTATION: 09/18/2020 CONSULTING PHYSICIAN: Dr. Zamora. REASON FOR CONSULTATION: Atrial fibrillation with rapid ventricular response, hypotension. CHIEF COMPLAINT AND HISTORY OF PRESENT ILLNESS: The patient is a 70-year-old male with a past medical history significant amongst other things for a diagnosis of atrial fibrillation, but also HIV positive. He is on home anticoagulation with Xarelto. He came into the emergency room complaining of being unable to breathe. He stated that the shortness of breath have been going on for 3 days. EMS found the patient in respiratory distress with O2 sats of 85% on room air. He was placed on supplemental oxygen and brought into the emergency room. He apparently had just left this hospital about a couple of days prior, at which time was also found to have atrial fibrillation with a rapid ventricular response. He also was found with a metabolic acidosis and acute kidney injury and evidence of an acute CHF decompensation. He was hypotensive with a systolic blood pressure of 78. He was started on antiarrhythmic therapy initiated on CHF protocol and admitted to the medical floor. When I stopped by to see him, he was rested in bed. He had just been started on amiodarone drip; however, his most recent MAP was about 63 mmHg. He denied any chest pain. He was somnolent to somewhat lethargic. I do not have any history of nausea, vomiting or overt aspiration. When asked if he smokes, he nods his head yes to smoking. The above is as much of the history of presentation as I have. PAST MEDICAL HISTORY: Atrial fibrillation, hypertension, HIV positive, history of congestive heart failure. PAST SURGICAL HISTORY: He has had a history of hernia repair. MEDICATIONS: He was on at the time I stopped by to see him were reviewed. Pertinent medications include the following: Tylenol 650 mg p.o. q.4 hours p.r.n. mild pain and fever, albuterol 2.5 mg nebulized q.4 hours p.r.n. shortness of breath, amiodarone drip has just been started at 1 mg per minute, Lasix 20 mg IV b.i.d., heparin drip was going at I think about 1050 units per hour, IV Dilaudid 0.25 mg IV once received for pain, Zofran 4 mg IV q.8 hours p.r.n. nausea and vomiting. ALLERGIES: No known drug allergies. DIET: Well-built gentleman. Denies acute weight loss or gain in the preceding few weeks to months. SOCIAL HISTORY: He is single. He lives in the community. He told me he smokes. The records indicate that he denied alcohol or illicit drug use or abuse. FAMILY HISTORY: There is family history of hypertension. REVIEW OF SYSTEMS: Difficult to obtain secondary to the patient's medical and mental condition. Since he has been here, no gross hematochezia or melena, no gross hematuria, no hematemesis, no hemoptysis, no bloody tracheal secretions. We can see no witnessed seizures. Review of systems otherwise unobtainable or as in the body of the history above. PHYSICAL EXAMINATION: At presentation in the emergency room: VITAL SIGNS: He was afebrile, temperature 98.3 degrees Fahrenheit with a pulse of 74, respiratory rate of 35, blood pressure 78/43, O2 sats were 95%, inspired oxygen concentration was not recorded at that time, his pulse was as high as 135 in the ER, his T-max since he has been in the hospital was 102.4 that was earlier this morning. When I stopped by to see him, his O2 sats were 98% that was on 4 liters nasal cannula. GENERAL: Elderly looking male. Normocephalic, atraumatic. Resting in bed with mildly increased respiratory effort at rest, moaning intermittently. HEENT: Anicteric. No conjunctival erythema. Oropharynx was moist. NECK: No gross jugular venous distention, no thyromegaly. Grossly, there were no palpable lymph nodes in the supraclavicular or submandibular lymph node chains. No gross jugular venous distention. LUNGS: Auscultation of both lungs larson significant for coarse bilateral breath sounds as well as faint expiratory wheezing. HEART: Sounds 1 and 2 are heard, irregularly irregular rate and rhythm without overt rubs or murmurs. ABDOMEN: Soft, full, bowel sounds are positive, nontender. No palpable hepatosplenomegaly. EXTREMITIES: Without overt digital clubbing or cyanosis. No pedal edema. Pedal pulses are 2+ bilaterally. NEUROLOGIC: Pupils are equal, round, about 3 mm, reactive to light. Extraocular muscle movements are intact. He moves all 4 extremities spontaneously. SKIN: Normal turgor and the areas examined without overt cellulitis or rash. Please see the wound care nurses' notes for full description of his skin. PSYCHIATRIC: Mood and affect somewhat appeared depressed. He had poor judgment and insight. LABORATORY DATA: For my review are as follows: Admission white cell count 11,100, hemoglobin 11.2, hematocrit 32.8, platelet count 168. No band forms on the manual differential. INR was 3.16. Arterial blood gas showed a pH of 7.51, pCO2 of 23, pO2 of 67 that was on room air. Serum sodium 125, potassium 4.7, chloride 95, bicarbonate 17, BUN 64, creatinine 4.6, glucose was 104, AST 69. Troponin was 0.061. BNP was elevated. LDL cholesterol was 4.0. Urinalysis shows moderate leukocyte esterase with 71 white cells per high power field. Two sets of blood cultures are no growth to date. Radiographic studies have been reviewed. A chest x-ray was done. I have reviewed the image as well as the radiologist's interpretation, I do agree mild pulmonary venous congestion, perhaps a small left pleural effusion. He has gross cardiomegaly. No gross pneumothorax or consolidation that I can see. ASSESSMENT: 1. Acute hypoxemic respiratory failure. 2. Atrial fibrillation with rapid ventricular response. 3. Acute congestive heart failure exacerbation. 4. Acute on chronic kidney injury. 5. Anemia that is microcytic. 6. Coagulopathy appears to be acquired. 7. Respiratory alkalosis. 8. Mild metabolic acidosis. 9. Possible severe sepsis with shock due to a urinary tract infection. 10. Urinary tract infection. PLAN: I have asked the nurse to watch his blood pressures. If it continues to stay low on the amiodarone, we will hold the amiodarone in the short time. I will also be reaching out to the heavy equipment rental associate, perhaps we could reduce the diuresis. Oxygen will be continued and wean to keep sats greater than or equal to 92%. Aspiration precautions will be maintained. He will be kept in airborne and contact isolation while we are ruling out COVID-19 infection. In the meantime, I will hold on systemic steroids. In light of the wheezing, I will schedule some Xopenex and I will do that b.i.d. schedule. He will also have his p.r.n. treatments. Consideration will be made for beginning positive airway pressure ventilation therapy. I will probably consider at bedtime BiPAP therapy in the short time. I will await his 2D echo to review. I am bothered by the hypotension, the renal failure and the real possibility of occult infection going on. I am inclined to start him empirically on broad-spectrum antibiotic therapy. I will get a procalcitonin level as well as a lactic acid level to help guide clinical decision making. We will empirically give him a dose of vancomycin and start him on either Zosyn or cefepime. I will defer to cardiology for the management of the acute CHF exacerbation. Nephrology consultation has been placed. Again, I will defer to them in terms of management of his renal indices. He is on full anticoagulation. I will start him on GI prophylaxis. Flu and pneumonia vaccination will be addressed per protocol. Further interventions will be based on his progress through this hospitalization. Thank you very much for the consult. We will follow along and make further recommendations as picture progresses/becomes clearer. He is critically ill on life-sustaining interventions including the vasoactive medications. I should mention I will also probably start him on some Pietro-Synephrine for this low blood pressures he is having. At this time, I spent about 35-40 minutes of critical care time without overlap and excluding any procedural time that may be necessary. TID: [id number] RECEIPT: [id number] VICENTE HERNANDEZ
[2020-09-19] MEDS: CEFEPIME/NS 1 GM/100 ML 1 GM/100 ML BAG IV SCH (03:32)
[2020-09-19 03:49] LABS: Hematocrit 30.9 % (35.5-45.6); Hemoglobin 10.9 gm/dl (11.8-15.2); Mean Corpuscular HGB Conc 35 % (32-34); Mean Corpuscular Volume 94 fl (84-94); Platelet Count 147 K/mm3 (140-440); Red Blood Count 3.29 M/mm3 (3.65-5.03)
[2020-09-19 04:11] LABS: Calcium 9.1 mg/dL (8.4-10.2)
[2020-09-19] MEDS: FUROSEMIDE 20 MG/2 ML INJ IV SCH ×2 (06:24→17:19)
--- NOTE | 2020-09-19 08:35 | Progress Note ---
Assessment and Plan Assessment and plan: Acute hypoxic respiratory failure. Etiology secondary to heart failure. Acute heart failure. Await echocardiogram to assess for diastolic versus systolic etiology. Atrial fibrillation with RVR Acute kidney injury Elevated troponin Coagulopathy 09/18/2020. Await echocardiogram to assess for diastolic versus systolic etiology. Patient with elevated BNP greater than 18,000. Patient apparently wa s admitted approximately 3 days ago but left AMA. Cardiology consulted for heart failure, A. fib with RVR and elevated troponin. Patient denies chest pain. Also, patient with elevated creatinine of 4.7 with creatinine 2.8 on recent admission. We do not have a previous creatinine as a baseline to compare. Nephrology consultation pending. Follow-up renal ultrasound. Patient with coagulopathy and INR 3.04. Unsure if patient was on anticoagulation for A. fib. 09/19/2020. Patient likely with vasomotor acute kidney injury in the setting of shock. Follow-up urine studies and renal ultrasound. Creatinine continues to worsen. Nephrology following. Etiology of respiratory failure secondary to heart failure with Covid testing pending. Elevated troponin suggestive of NSTEMI. Continue diuresis with Lasix. Continue IV amiodarone for rate control of A. fib with RVR. Continue heparin. Follow-up echocardiogram. Cardiology following. History Interval history: No new issues overnight. Hospitalist Physical - Constitutional Vitals: Temp Pulse Resp BP Pulse Ox 99.0 F 104 H 26 H 88/63 100 09/18/20 19:43 09/19/20 06:15 09/19/20 06:15 09/19/20 06:15 09/19/20 06:15 General appearance: Present: mild distress - EENT Eyes: Present: PERRL, EOM intact ENT: hearing intact, clear oral mucosa, dentition normal - Neck Neck: Present: supple, normal ROM - Respiratory Respiratory effort: normal Respiratory: bilateral: CTA - Cardiovascular Rhythm: regular Heart Sounds: Present: S1 & S2. Absent: gallop, rub - Extremities Extremities: no ischemia, No edema, Full ROM - Abdominal General gastrointestinal: soft, non-tender, non-distended, normal bowel sounds - Integumentary Integumentary: Present: clear, warm, dry - Neurologic Neurologic: CNII-XII intact, moves all extremities HEART Score - HEART Score Troponin: Troponin T 0.057 ng/mL (0.00-0.029) H 09/17/20 16:36 Results - Labs CBC & Chem 7: 09/18/20 15:07 09/18/20 03:19 Labs: Laboratory Last Values WBC 9.1 K/mm3 (4.5-11.0) 09/19/20 03:30 RBC 3.29 M/mm3 (3.65-5.03) L 09/19/20 03:30 Hgb 10.9 gm/dl (11.8-15.2) L 09/19/20 03:30 Hct 30.9 % (35.5-45.6) L 09/19/20 03:30 MCV 94 fl (84-94) 09/19/20 03:30 MCH 33 pg (28-32) H 09/19/20 03:30 MCHC 35 % (32-34) H 09/19/20 03:30 RDW 14.0 % (13.2-15.2) 09/19/20 03:30 Plt Count 147 K/mm3 (140-440) 09/19/20 03:30 Add Manual Diff Complete 09/18/20 03:19 Total Counted 100 09/18/20 03:19 Seg Neutrophils % Slicing Machine Feeder 09/17/20 10:47 Seg Neuts % (Manual) 95.0 % (40.0-70.0) H 09/18/20 03:19 Lymphocytes % (Manual) 3.0 % (13.4-35.0) L 09/18/20 03:19 Monocytes % (Manual) 2.0 % (0.0-7.3) 09/18/20 03:19 Nucleated RBC % Not Reportable 09/18/20 03:19 Seg Neutrophils # Man 8.1 K/mm3 (1.8-7.7) H 09/18/20 03:19 Band Neutrophils # 0.0 K/mm3 09/18/20 03:19 Lymphocytes # (Manual) 0.3 K/mm3 (1.2-5.4) L 09/18/20 03:19 Abs React Lymphs (Man) 0.0 K/mm3 09/18/20 03:19 Monocytes # (Manual) 0.2 K/mm3 (0.0-0.8) 09/18/20 03:19 Eosinophils # (Manual) 0.0 K/mm3 (0.0-0.4) 09/18/20 03:19 Basophils # (Manual) 0.0 K/mm3 (0.0-0.1) 09/18/20 03:19 Metamyelocytes # 0.0 K/mm3 09/18/20 03:19 Myelocytes # 0.0 K/mm3 09/18/20 03:19 Promyelocytes # 0.0 K/mm3 09/18/20 03:19 Blast Cells # 0.0 K/mm3 09/18/20 03:19 WBC Morphology Not Reportable 09/18/20 03:19 Hypersegmented Neuts Not Reportable 09/18/20 03:19 Hyposegmented Neuts Not Reportable 09/18/20 03:19 Hypogranular Neuts Not Reportable 09/18/20 03:19 Smudge Cells Not Reportable 09/18/20 03:19 Toxic Granulation Not Reportable 09/18/20 03:19 Toxic Vacuolation Not Reportable 09/18/20 03:19 Dohle Bodies Not Reportable 09/18/20 03:19 Pelger-Huet Anomaly Not Reportable 09/18/20 03:19 Vinh Rods Not Reportable 09/18/20 03:19 Platelet Estimate Consistent w auto 09/18/20 03:19 Clumped Platelets Not Reportable 09/18/20 03:19 Plt Clumps, EDTA Not Reportable 09/18/20 03:19 Large Platelets Not Reportable 09/18/20 03:19 Giant Platelets Not Reportable 09/18/20 03:19 Platelet Satelliting Not Reportable 09/18/20 03:19 Plt Morphology Comment Not Reportable 09/18/20 03:19 RBC Morphology Not Reportable 09/18/20 03:19 Dimorphic RBCs Not Reportable 09/18/20 03:19 Polychromasia Not Reportable 09/18/20 03:19 Hypochromasia Not Reportable 09/18/20 03:19 Poikilocytosis Not Reportable 09/18/20 03:19 Anisocytosis 1+ 09/18/20 03:19 Microcytosis Not Reportable 09/18/20 03:19 Macrocytosis 1+ 09/18/20 03:19 Spherocytes Not Reportable 09/18/20 03:19 Pappenheimer Bodies Not Reportable 09/18/20 03:19 Sickle Cells Not Reportable 09/18/20 03:19 Target Cells Not Reportable 09/18/20 03:19 Tear Drop Cells Not Reportable 09/18/20 03:19 Ovalocytes Not Reportable 09/18/20 03:19 Helmet Cells Not Reportable 09/18/20 03:19 [place] Bodies Not Reportable 09/18/20 03:19 [place] Rings Not Reportable 09/18/20 03:19 Milnor Cells Not Reportable 09/18/20 03:19 Bite Cells Not Reportable 09/18/20 03:19 Crenated Cell Not Reportable 09/18/20 03:19 Elliptocytes Not Reportable 09/18/20 03:19 Acanthocytes (Spur) Not Reportable 09/18/20 03:19 Rouleaux Not Reportable 09/18/20 03:19 Hemoglobin C Crystals Not Reportable 09/18/20 03:19 Schistocytes Not Reportable 09/18/20 03:19 Malaria parasites Not Reportable 09/18/20 03:19 Zachary Bodies Not Reportable 09/18/20 03:19 Hem Pathologist Commnt No 09/18/20 03:19 PT 20.3 Sec. (12.2-14.9) H 09/18/20 15:07 INR 1.73 (0.87-1.13) H 09/18/20 15:07 APTT 40.8 Sec. (24.2-36.6) H 09/18/20 15:07 Heparin Anti-Xa Level 0.57 U.I./ml (0.3-0.7) 09/19/20 03:30 ABG pH 7.508 (7.320-7.450) H 09/17/20 10:28 POC ABG pCO2 22.8 mmHg (32.0-48.0) L 09/17/20 10:28 POC ABG pO2 66.8 mmHg (83-108) L 09/17/20 10:28 POC ABG HCO3 17.7 09/17/20 10:28 ABG O2 Saturation 93.4 (0-100) 09/17/20 10:28 POC ABG Base Excess -3.5 09/17/20 10:28 ABG Hemoglobin 12.7 (12.0-17.5) 09/17/20 10:28 ABG Oxyhemoglobin 92.7 (94-98) L 09/17/20 10:28 ABG Methemoglobin 0.3 (0.0-1.5) 09/17/20 10:28 ABG Sodium 127.4 mmol/L (136.0-145.0) L 09/17/20 10:28 ABG Potassium 4.7 mmol/L (3.40-4.50) H 09/17/20 10:28 ABG Chloride 101.0 mmol/L (98-107) 09/17/20 10:28 ABG Glucose 121 mg/dL (65-95) H 09/17/20 10:28 Carboxyhemoglobin 0.4 (0.5-1.5) L 09/17/20 10:28 FiO2 % 21 09/17/20 10:28 Sodium 133 mmol/L (137-145) L 09/19/20 03:30 Potassium 4.8 mmol/L (3.6-5.0) 09/19/20 03:30 Chloride 102.2 mmol/L (98-107) 09/19/20 03:30 Carbon Dioxide 17 mmol/L (22-30) L 09/19/20 03:30 Anion Gap 19 mmol/L 09/19/20 03:30 BUN 94 mg/dL (9-20) H 09/19/20 03:30 Creatinine 5.0 mg/dL (0.8-1.3) H 09/19/20 03:30 Estimated GFR 14 ml/min 09/19/20 03:30 BUN/Creatinine Ratio 19 % 09/19/20 03:30 Glucose 120 mg/dL (75-100) H 09/19/20 03:30 POC Glucose 96 mg/dL (70-105) 09/18/20 08:40 Lactic Acid 1.60 mmol/L (0.7-2.0) 09/18/20 15:07 Calcium 9.1 mg/dL (8.4-10.2) 09/19/20 03:30 Phosphorus 6.30 mg/dL (2.5-4.5) H 09/19/20 03:30 Magnesium 1.80 mg/dL (1.7-2.3) 09/17/20 10:47 Total Bilirubin 2.40 mg/dL (0.1-1.2) H 09/19/20 03:30 AST 163 units/L (5-40) H 09/19/20 03:30 ALT 109 units/L (7-56) H 09/19/20 03:30 Alkaline Phosphatase 160 units/L (35-129) H 09/19/20 03:30 Total Creatine Kinase 20 units/L (55-170) L 09/19/20 03:30 Troponin T 0.057 ng/mL (0.00-0.029) H 09/17/20 16:36 NT-Pro-B Natriuret Pep 75505 pg/mL (0-900) H 09/17/20 10:47 Total Protein 6.2 g/dL (6.3-8.2) L 09/19/20 03:30 Albumin 2.0 g/dL (3.9-5) L 09/19/20 03:30 Albumin/Globulin Ratio 0.5 % 09/19/20 03:30 Triglycerides 137 mg/dL (2-149) 09/17/20 13:54 Cholesterol 48 mg/dL (50-199) L 09/17/20 13:54 LDL Cholesterol Direct 4 mg/dL (50-130) L 09/17/20 13:54 HDL Cholesterol 9 mg/dL (40-59) L 09/17/20 13:54 Cholesterol/HDL Ratio 5.33 % 09/17/20 13:54 PTH Intact 161.4 pg/mL (15-65) H 09/19/20 03:30 Arterial Blood Glucose 121 mg/dL (65-95) H 09/17/20 10:28 Arterial Blood Ionized Calcium 5.0 mg/dL (4.6-5.3) 09/17/20 10:28 Urine Color Yellow (Yellow) 09/18/20 12:00 Urine Turbidity Cloudy (Clear) 09/18/20 12:00 Urine pH 5.0 (5.0-7.0) 09/18/20 12:00 Ur Specific Kenneth 1.009 (1.003-1.030) 09/18/20 12:00 Urine Protein 30 mg/dl mg/dL (Negative) 09/18/20 12:00 Urine Glucose (UA) Neg mg/dL (Negative) 09/18/20 12:00 Urine Ketones Neg mg/dL (Negative) 09/18/20 12:00 Urine Blood Sm (Negative) 09/18/20 12:00 Urine Nitrite Neg (Negative) 09/18/20 12:00 Urine Bilirubin Neg (Negative) 09/18/20 12:00 Urine Urobilinogen < 2.0 mg/dL (<2.0) 09/18/20 12:00 Ur Leukocyte Esterase Mod (Negative) 09/18/20 12:00 Urine WBC (Auto) 71.0 /HPF (0.0-6.0) H 09/18/20 12:00 Urine RBC (Auto) 2.0 /HPF (0.0-6.0) 09/18/20 12:00 U Epithel Cells (Auto) 1.0 /HPF (0-13.0) 09/18/20 12:00 Urine Bacteria (Auto) 4+ /HPF (Negative) 09/18/20 12:00 Urine WBC Clumps 2+ /HPF 09/18/20 12:00 Hyaline Casts 3 /LPF 09/18/20 12:00 Granular Casts 3 /LPF 09/18/20 12:00 Urine Mucus Few /HPF 09/18/20 12:00 Urine Creatinine 61.0 mg/dL (0.1-20.0) H 09/18/20 12:00 Urine Sodium 62 mmol/L 09/18/20 12:00 Random Vancomycin 12.7 ug/mL (0-40.0) 09/19/20 03:30 Microbiology: Microbiology 09/18/20 03:19 Peripheral/Venous Blood Culture - Preliminary 09/18/20 02:01 Peripheral/Venous Blood Culture - Preliminary Gardner/IV: Voiding Method Condom Catheter Active Medications - Current Medications Current Medications: Generic Name Dose Route Start Last Admin Trade Name Freq PRN Reason Stop Dose Admin Acetaminophen 650 mg 09/17/20 13:52 Acetaminophen 325 Mg Tab PO Q4H PRN Pain MILD(1-3)/Fever >100.5/ANGEL Albuterol 2.5 mg 09/17/20 13:52 09/17/20 20:47 Albuterol 2.5 Mg/3 Ml Nebu IH 2.5 mg Q4HRT PRN Administration Shortness Of Breath Famotidine 20 mg 09/18/20 16:00 09/18/20 15:12 Famotidine 20 Mg/2 Ml Inj IV 20 mg QDAY EDIE Administration Furosemide 20 mg 09/17/20 18:00 09/19/20 06:24 Furosemide 20 Mg/2 Ml Inj IV 20 mg BID@0600,1800 EDIE Administration Heparin Sodium (Porcine) 2,900 unit 09/18/20 11:02 Heparin 10,000 Units/10 Ml Vial 40 unit/kg (2900 unit) IV Q6H PRN Anti-Xa Assay < 0.1 units/ml Hydromorphone HCl 0.25 mg 09/17/20 14:50 09/17/20 15:42 Hydromorphone 1 Mg/1 Ml Inj IV 0.25 mg ONCE PRN Administration Pain , Severe (7-10) Heparin Sodium/Sodium Chloride 25,000 unit in 500 mls @ 21 mls/hr 09/18/20 12:00 09/19/20 04:34 Heparin/ 0.45% Nacl-25,000 Unit/500 Ml IV 900 units/hr TITR EDIE 18 mls/hr Titration Protocol 1,050 UNITS/HR Amiodarone HCl 900 mg/ 500 mls @ 33.333 mls/hr 09/18/20 12:00 09/18/20 18:41 Dextrose IV 0.5 mg/min DIRECT EDIE 16.667 mls/hr Infusion Protocol 1 MG/MIN Cefepime HCl 1 gm in 100 mls @ 200 mls/hr 09/18/20 15:30 09/19/20 03:32 Cefepime/Ns 1 Gm/100 Ml IV 09/25/20 15:29 200 mls/hr Q12H EDIE Administration Protocol Phenylephrine HCl 100 mg/ 100 mls @ 3 mls/hr 09/18/20 15:00 09/19/20 03:36 Sodium Chloride IV 40 mcg/min TITR EDIE 2.4 mls/hr Titration Protocol 50 MCG/MIN Ondansetron HCl 4 mg 09/17/20 13:52 Ondansetron 4 Mg/2 Ml Inj IV Q8H PRN Nausea And Vomiting Sodium Chloride 10 ml 09/17/20 22:00 09/18/20 22:00 Sodium Chloride 0.9% 10 Ml Flush Syringe IV 10 ml BID EDIE Administration Sodium Chloride 10 ml 09/17/20 13:52 Sodium Chloride 0.9% 10 Ml Flush Syringe IV PRN PRN LINE FLUSH Nutrition/Malnutrition Assess - Dietary Evaluation Nutrition/Malnutrition Findings: Nutrition Notes Start: 09/18/20 11:30 Freq: Status: Active Protocol: Document 09/18/20 11:30 CW (Rec: 09/18/20 11:36 CW [id number]) Nutrition Notes Need for Assessment generated from: MD Order Initial or Follow up Brief Note Current Diagnosis Acute Kidney Injury,Heart Failure Other Pertinent Diagnosis Covid 19 PUI, AR, AMS Current Diet Cardiac Consistent Carbohydrate (starting at dinner) Labs/Tests BUN 70 Cr 4.7 Pertinent Medications Lasix 5L of NS Height 6 ft 1 in Weight 72.3 kg [place] Body Weight (kg) 83.63 BMI 21.0 Weight change and time frame weight change per last visit likely d/t diuertics usage (87.5kg on 09/15/2020) Weight Status Appropriate Subjective/Other Information RN screen for MST. Pt did not answer phone x2. Pt with AMS. Unable to provide nutritional hx. Current diet to be initiated at dinner per order in chart. Will monitor intakes . Burn Absent Trauma Absent GI Symptoms Other Current % PO Negligible Minimum of two criteria No physical signs of malnutrition Nutrition Intervention Change Diet Order: Add renal modifications to diet Goal #1 Meet at least 75% of kcal and protein needs via PO Anticipated Discharge Needs: Cardiac Consistent Carbohydrate Diet Follow-Up By: 09/20/20 Additional Comments F/U for intakes
[2020-09-19] MEDS: PHENYLEPHRINE 100 MG in SODIUM CHLORIDE 0.9% 90 ML IV SCH (08:56)
[2020-09-19] MEDS: NORepinephrine/NS 4 MG-250 ML 4 MG/250 ML BAG IV SCH ×2 (09:01→19:16)
[2020-09-19] MEDS: FAMOTIDINE 20 MG/2 ML INJ IV SCH (09:06)
--- NOTE | 2020-09-19 09:22 | Progress Note ---
Assessment and Plan 1. Acute kidney injury: Vasomotor LOLI in the setting of shock. ATN likely. Renal US negative for hydro. Bladder scan 139 ml (09/19). Monitor renal function. Creatinine level is increasing. Renal prognosis is guarded. Avoid nephrotoxic agents. Meds dosage based on GFR. 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 2. FEN: Metabolic acidosis, monitor. Monitor volume status and lytes. 3. Acute hypoxic respiratory failure: Likely 2/2 CHF. Covid test pending. Supplemental O2. 4. Acute CHF: Await echocardiogram results. CHF orderset / pathway. Monitor. 5. Atrial fibrillation with RVR: Followed by Cards. 6. Elevated troponin: Trend. Followed by Cards. 7. Coagulopathy: Trend. 8. Hypotension: Multifactorial, monitor. On Phenylephrine. 9. Elevated Transaminases: Trend. 10. Metabolic encephalopathy: Monitor. 11. Anemia, POA: Monitor. Subjective: Patient was seen and examined at the bedside. Objective: General appearance: well-developed, appears stated age, appears emaciated, no distress HEENT: ATNC, L pupil dilated Neck: trachea midline Respiratory: bilateral diminished breath sounds Heart: irregular, S1S2, no murmur Gastrointestinal: soft, normoactive bowel sounds, not tender Integumentary: no obvious rash Ext: no edema Neurologic: lethargic, not following any command Subjective Date of service: 09/19/20 Objective - Vital Signs Vital signs: Vital Signs - 12hr 09/18/20 09/18/20 09/18/20 21:30 21:45 22:00 Pulse Rate 113 H 106 H 111 H Respiratory 31 H 29 H 30 H Rate Blood Pressure 99/70 90/66 89/63 O2 Sat by Pulse 99 Oximetry 09/18/20 09/18/20 09/18/20 22:15 22:30 22:45 Pulse Rate 108 H 116 H 107 H Respiratory 32 H 31 H 31 H Rate Blood Pressure 94/69 94/69 96/65 O2 Sat by Pulse 100 99 100 Oximetry 09/18/20 09/18/20 09/18/20 22:52 23:00 23:15 Pulse Rate 118 H 106 H 104 H Respiratory 31 H 30 H 31 H Rate Blood Pressure 96/65 91/66 95/59 O2 Sat by Pulse 100 100 100 Oximetry 09/18/20 09/18/20 09/19/20 23:30 23:46 00:00 Pulse Rate 106 H 104 H 92 H Respiratory 28 H 29 H 29 H Rate Blood Pressure 87/60 88/62 90/61 O2 Sat by Pulse 99 99 100 Oximetry 09/19/20 09/19/20 09/19/20 00:15 00:25 00:30 Pulse Rate 113 H 107 H 104 H Respiratory 30 H 29 H 30 H Rate Blood Pressure 94/65 94/68 99/64 O2 Sat by Pulse 100 100 100 Oximetry 09/19/20 09/19/20 09/19/20 00:45 01:00 01:15 Pulse Rate 101 H 117 H 99 H Respiratory 28 H 27 H 28 H Rate Blood Pressure 87/59 91/65 92/59 O2 Sat by Pulse 100 100 100 Oximetry 09/19/20 09/19/20 09/19/20 01:30 01:46 02:00 Pulse Rate 106 H 104 H 109 H Respiratory 28 H 27 H 29 H Rate Blood Pressure 85/52 92/68 89/63 O2 Sat by Pulse 99 100 100 Oximetry 09/19/20 09/19/20 09/19/20 02:15 02:30 02:45 Pulse Rate 106 H 111 H 107 H Respiratory 28 H 27 H 27 H Rate Blood Pressure 97/55 89/59 92/65 O2 Sat by Pulse 99 100 100 Oximetry 09/19/20 09/19/20 09/19/20 03:00 03:15 03:30 Pulse Rate 104 H 107 H 107 H Respiratory 28 H 27 H 29 H Rate Blood Pressure 86/62 91/59 91/59 O2 Sat by Pulse 100 99 100 Oximetry 09/19/20 09/19/20 09/19/20 03:46 04:00 04:03 Pulse Rate 102 H 109 H 116 H Respiratory 27 H 27 H Rate Blood Pressure 80/59 80/59 O2 Sat by Pulse 100 100 Oximetry 09/19/20 09/19/20 09/19/20 04:15 04:30 04:45 Pulse Rate 108 H 113 H 105 H Respiratory 28 H 25 H 28 H Rate Blood Pressure 90/66 85/56 87/63 O2 Sat by Pulse 99 100 100 Oximetry 09/19/20 09/19/20 09/19/20 04:47 05:00 05:15 Pulse Rate 110 H 108 H 94 H Respiratory 29 H 28 H 27 H Rate Blood Pressure 85/56 87/63 89/65 O2 Sat by Pulse 100 100 100 Oximetry 09/19/20 09/19/20 09/19/20 05:30 05:45 06:00 Pulse Rate 107 H 97 H 100 H Respiratory 27 H 27 H 26 H Rate Blood Pressure 90/68 99/50 90/59 O2 Sat by Pulse 100 99 99 Oximetry 09/19/20 09/19/20 06:15 09:14 Pulse Rate 104 H Respiratory 26 H Rate Blood Pressure 88/63 O2 Sat by Pulse 100 100 Oximetry - Lab 09/18/20 15:07 09/18/20 03:19 Most recent lab results ABG pH 7.508 (7.320-7.450) H 09/17/20 10:28 ABG O2 Saturation 93.4 (0-100) 09/17/20 10:28 Calcium 9.1 mg/dL (8.4-10.2) 09/19/20 03:30 Phosphorus 6.30 mg/dL (2.5-4.5) H 09/19/20 03:30 Magnesium 1.80 mg/dL (1.7-2.3) 09/17/20 10:47 Urine Creatinine 61.0 mg/dL (0.1-20.0) H 09/18/20 12:00 Urine Sodium 62 mmol/L 09/18/20 12:00 Medications & Allergies - Medications Allergies/Adverse Reactions: Allergies No Known Allergies Allergy (Unverified 09/15/20 06:37) Home Medications: Home Medications Medication Instructions Recorded Confirmed Last Taken Type AtorvaSTATin [Lipitor] 20 mg PO QHS 09/18/20 09/18/20 Unknown History Dolutegravir [Tivicay] 50 mg PO DAILY 09/18/20 09/18/20 Unknown History Emtricitabine/Tenofov Alafenam 1 tab PO DAILY 09/18/20 09/18/20 Unknown History [Descovy 200-25 mg (Nf)] Rivaroxaban [Xarelto] 15 mg PO QDAY 09/18/20 09/18/20 Unknown History allopurinoL [Zyloprim] 300 mg PO QDAY 09/18/20 09/18/20 Unknown History carvediloL [Coreg] 25 mg PO BID 09/18/20 09/18/20 Unknown History lisinopriL [Lisinopril] 20 mg PO DAILY 09/18/20 09/18/20 Unknown History Active Medications: Generic Name Dose Route Start Last Admin Trade Name Freq PRN Reason Stop Dose Admin Acetaminophen 650 mg 09/17/20 13:52 Acetaminophen 325 Mg Tab PO Q4H PRN Pain MILD(1-3)/Fever >100.5/ANGEL Albuterol 2.5 mg 09/17/20 13:52 09/17/20 20:47 Albuterol 2.5 Mg/3 Ml Nebu IH 2.5 mg Q4HRT PRN Administration Shortness Of Breath Famotidine 20 mg 09/18/20 16:00 09/19/20 09:06 Famotidine 20 Mg/2 Ml Inj IV 20 mg QDAY EDIE Administration Furosemide 20 mg 09/17/20 18:00 09/19/20 06:24 Furosemide 20 Mg/2 Ml Inj IV 20 mg BID@0600,1800 EDIE Administration Heparin Sodium (Porcine) 2,900 unit 09/18/20 11:02 Heparin 10,000 Units/10 Ml Vial 40 unit/kg (2900 unit) IV Q6H PRN Anti-Xa Assay < 0.1 units/ml Hydromorphone HCl 0.25 mg 09/17/20 14:50 09/17/20 15:42 Hydromorphone 1 Mg/1 Ml Inj IV 0.25 mg ONCE PRN Administration Pain , Severe (7-10) Heparin Sodium/Sodium Chloride 25,000 unit in 500 mls @ 21 mls/hr 09/18/20 12:00 09/19/20 04:34 Heparin/ 0.45% Nacl-25,000 Unit/500 Ml IV 900 units/hr TITR EDIE 18 mls/hr Titration Protocol 1,050 UNITS/HR Amiodarone HCl 900 mg/ 500 mls @ 33.333 mls/hr 09/18/20 12:00 09/18/20 18:41 Dextrose IV 0.5 mg/min DIRECT EDIE 16.667 mls/hr Infusion Protocol 1 MG/MIN Cefepime HCl 1 gm in 100 mls @ 200 mls/hr 09/18/20 15:30 09/19/20 03:32 Cefepime/Ns 1 Gm/100 Ml IV 09/25/20 15:29 200 mls/hr Q12H EDIE Administration Protocol Phenylephrine HCl 100 mg/ 100 mls @ 3 mls/hr 09/18/20 15:00 09/19/20 09:17 Sodium Chloride IV 20 mcg/min TITR EDIE 1.2 mls/hr Titration Protocol 50 MCG/MIN Ondansetron HCl 4 mg 09/17/20 13:52 Ondansetron 4 Mg/2 Ml Inj IV Q8H PRN Nausea And Vomiting Sodium Chloride 10 ml 09/17/20 22:00 09/19/20 09:06 Sodium Chloride 0.9% 10 Ml Flush Syringe IV 10 ml BID EDIE Administration Sodium Chloride 10 ml 09/17/20 13:52 Sodium Chloride 0.9% 10 Ml Flush Syringe IV PRN PRN LINE FLUSH
--- NOTE | 2020-09-19 09:27 | Consultation ---
History of Present Illness - Reason for Consult Consult date: 09/19/20 GNR bacteremia Requesting physician: MARGARITO CONNER - History of Present Illness 70-year-old male with history of HIV infection (unknown CD4/VL/ART compliance), hypertension, atrial fibrillation on Xarelto, initially admitted on 09/15/2020 RVR Rolf. fib, LOLI, left AMA, came back to the ED on 09/17/2020 secondary to worsening shortness of breath for 3 days. Patient is currently intubated, unable to provide history. On arrival, temperature 98.3, HR 135, RR 35, O2 sat 95% dropped to 88%, BP 70/43. Initial WBC 8.5. Hemoglobin 10.9. Platelets 138. Creatinine 4.7. AST 128. ALT 67. Procalcitonin 28. Urinalysis 71 WBC, moderate leukocytes. Chest x-ray with bilateral pulmonary venous congestion. Blood culture 09/18/2020 gram-negative bacilli 4 out of 4 bottles. Review of Systems: Unable to obtain Past History Past Medical History: atrial fib, HIV/AIDS, hypertension Past Surgical History: hernia repair Social history: single. denies: smoking, alcohol abuse Family history: hypertension Medications and Allergies Allergies Allergy/AdvReac Type Severity Reaction Status Date / Time No Known Allergies Allergy Unverified 09/15/20 06:37 Home Medications Medication Instructions Recorded Confirmed Last Taken Type AtorvaSTATin [Lipitor] 20 mg PO QHS 09/18/20 09/18/20 Unknown History Dolutegravir [Tivicay] 50 mg PO DAILY 09/18/20 09/18/20 Unknown History Emtricitabine/Tenofov Alafenam 1 tab PO DAILY 09/18/20 09/18/20 Unknown History [Descovy 200-25 mg (Nf)] Rivaroxaban [Xarelto] 15 mg PO QDAY 09/18/20 09/18/20 Unknown History allopurinoL [Zyloprim] 300 mg PO QDAY 09/18/20 09/18/20 Unknown History carvediloL [Coreg] 25 mg PO BID 09/18/20 09/18/20 Unknown History lisinopriL [Lisinopril] 20 mg PO DAILY 09/18/20 09/18/20 Unknown History Active Meds: Active Medications Acetaminophen (Acetaminophen 325 Mg Tab) 650 mg PO Q4H PRN PRN Reason: Pain MILD(1-3)/Fever >100.5/ANGEL Albuterol (Albuterol 2.5 Mg/3 Ml Nebu) 2.5 mg IH Q4HRT PRN PRN Reason: Shortness Of Breath Last Admin: 09/17/20 20:47 Dose: 2.5 mg Documented by: Famotidine (Famotidine 20 Mg/2 Ml Inj) 20 mg IV QDAY EDIE Last Admin: 09/19/20 09:06 Dose: 20 mg Documented by: Furosemide (Furosemide 20 Mg/2 Ml Inj) 20 mg IV BID@0600,1800 EDIE Last Admin: 09/19/20 06:24 Dose: 20 mg Documented by: Heparin Sodium (Porcine) (Heparin 10,000 Units/10 Ml Vial) 2,900 unit 40 unit/kg (2900 unit) IV Q6H PRN PRN Reason: Anti-Xa Assay < 0.1 units/ml Hydromorphone HCl (Hydromorphone 1 Mg/1 Ml Inj) 0.25 mg IV ONCE PRN PRN Reason: Pain , Severe (7-10) Last Admin: 09/17/20 15:42 Dose: 0.25 mg Documented by: Heparin Sodium/Sodium Chloride (Heparin/ 0.45% Nacl-25,000 Unit/500 Ml) 25,000 unit in 500 mls @ 21 mls/hr IV TITR EDIE; Protocol Last Titration: 09/19/20 04:34 Dose: 900 units/hr, 18 mls/hr Documented by: Amiodarone HCl 900 mg/ (Dextrose) 500 mls @ 33.333 mls/hr IV DIRECT EDIE; Protocol Last Infusion: 09/18/20 18:41 Dose: 0.5 mg/min, 16.667 mls/hr Documented by: Cefepime HCl (Cefepime/Ns 1 Gm/100 Ml) 1 gm in 100 mls @ 200 mls/hr IV Q12H EDIE; Protocol Stop: 09/25/20 15:29 Last Admin: 09/19/20 03:32 Dose: 200 mls/hr Documented by: Phenylephrine HCl 100 mg/ (Sodium Chloride) 100 mls @ 3 mls/hr IV TITR EDIE; Protocol Last Titration: 09/19/20 09:17 Dose: 20 mcg/min, 1.2 mls/hr Documented by: Ondansetron HCl (Ondansetron 4 Mg/2 Ml Inj) 4 mg IV Q8H PRN PRN Reason: Nausea And Vomiting Sodium Chloride (Sodium Chloride 0.9% 10 Ml Flush Syringe) 10 ml IV BID EDIE Last Admin: 09/19/20 09:06 Dose: 10 ml Documented by: Sodium Chloride (Sodium Chloride 0.9% 10 Ml Flush Syringe) 10 ml IV PRN PRN PRN Reason: LINE FLUSH Physical Examination - Physical Exam Narrative exam: General appearance: Somnolent on BiPAP in no acute distress Eyes: anicteric sclerae, moist conjunctivae; no lid-lag; PERRLA HENT: Normocephalic, Atraumatic; normal external ears, nares open, oropharynx limited due to BiPAP mask Neck: supple, tracheal midline, no JVD Lungs: Coarse breath sound bilaterally CV: Tachycardic Abdomen: Soft, tender to palpation grimaces on the right upper quadrant Extremities: Slightly asymmetric right leg edema more than left Skin: No rash. Psych: Anxious Neuro: Alert, confused - Constitutional Vitals: Vital Signs Temp Pulse Resp BP Pulse Ox 99.0 F 104 H 26 H 88/63 100 09/18/20 19:43 09/19/20 06:15 09/19/20 06:15 09/19/20 06:15 09/19/20 09:14 Temperature -Last 24 Hours Temperature 99.0 F Temperature 98.8 F Temperature 98.5 F Results - Labs CBC & Chem 7: 09/18/20 15:07 09/18/20 03:19 Labs: Abnormal lab results 09/18/20 09/18/20 09/18/20 Range/Units 12:00 12:00 15:07 RBC (3.65-5.03) M/mm3 Hgb 10.7 L (11.8-15.2) gm/dl Hct 31.3 L (35.5-45.6) % MCH (28-32) pg MCHC (32-34) % PT (12.2-14.9) Sec. INR (0.87-1.13) APTT (24.2-36.6) Sec. Heparin Anti-Xa Level (0.3-0.7) U.I./ml Sodium (137-145) mmol/L Carbon Dioxide (22-30) mmol/L BUN (9-20) mg/dL Creatinine (0.8-1.3) mg/dL Glucose (75-100) mg/dL POC Glucose (70-105) mg/dL Phosphorus (2.5-4.5) mg/dL Total Bilirubin (0.1-1.2) mg/dL AST (5-40) units/L ALT (7-56) units/L Alkaline Phosphatase (35-129) units/L Total Creatine Kinase (55-170) units/L Total Protein (6.3-8.2) g/dL Albumin (3.9-5) g/dL PTH Intact (15-65) pg/mL Urine WBC (Auto) 71.0 H (0.0-6.0) /HPF Urine Creatinine 61.0 H (0.1-20.0) mg/dL 09/18/20 09/18/20 09/19/20 Range/Units 15:07 18:33 03:30 RBC 3.29 L (3.65-5.03) M/mm3 Hgb 10.9 L (11.8-15.2) gm/dl Hct 30.9 L (35.5-45.6) % MCH 33 H (28-32) pg MCHC 35 H (32-34) % PT 20.3 H (12.2-14.9) Sec. INR 1.73 H (0.87-1.13) APTT 40.8 H (24.2-36.6) Sec. Heparin Anti-Xa Level 1.09 H (0.3-0.7) U.I./ml Sodium (137-145) mmol/L Carbon Dioxide (22-30) mmol/L BUN (9-20) mg/dL Creatinine (0.8-1.3) mg/dL Glucose (75-100) mg/dL POC Glucose (70-105) mg/dL Phosphorus (2.5-4.5) mg/dL Total Bilirubin (0.1-1.2) mg/dL AST (5-40) units/L ALT (7-56) units/L Alkaline Phosphatase (35-129) units/L Total Creatine Kinase (55-170) units/L Total Protein (6.3-8.2) g/dL Albumin (3.9-5) g/dL PTH Intact (15-65) pg/mL Urine WBC (Auto) (0.0-6.0) /HPF Urine Creatinine (0.1-20.0) mg/dL 09/19/20 09/19/20 09/19/20 Range/Units 03:30 03:30 06:35 RBC (3.65-5.03) M/mm3 Hgb (11.8-15.2) gm/dl Hct (35.5-45.6) % MCH (28-32) pg MCHC (32-34) % PT (12.2-14.9) Sec. INR (0.87-1.13) APTT (24.2-36.6) Sec. Heparin Anti-Xa Level (0.3-0.7) U.I./ml Sodium 133 L (137-145) mmol/L Carbon Dioxide 17 L (22-30) mmol/L BUN 94 H (9-20) mg/dL Creatinine 5.0 H (0.8-1.3) mg/dL Glucose 120 H (75-100) mg/dL POC Glucose 123 H (70-105) mg/dL Phosphorus 6.30 H (2.5-4.5) mg/dL Total Bilirubin 2.40 H (0.1-1.2) mg/dL AST 163 H (5-40) units/L ALT 109 H (7-56) units/L Alkaline Phosphatase 160 H (35-129) units/L Total Creatine Kinase 20 L (55-170) units/L Total Protein 6.2 L (6.3-8.2) g/dL Albumin 2.0 L (3.9-5) g/dL PTH Intact 161.4 H (15-65) pg/mL Urine WBC (Auto) (0.0-6.0) /HPF Urine Creatinine (0.1-20.0) mg/dL Assessment and Plan Cultures: Blood culture 09/18/2020 gram-negative bacilli 4 out of 4 bottles. Assessment: 70-year-old male with history of HIV infection (unknown CD4/VL/ART compliance), hypertension, atrial fibrillation on Xarelto, initially admitted on 09/15/2020 RVR A. fib, LOLI, left AMA, came back to the ED on 09/17/2020 secondary to worsening shortness of breath for 3 days: #Severe sepsis with septic shock: present on admission with tachycardia, hypotension, hypoxia, elevated LFTs, elevated creatinine; source likely secondary to gram-negative bacilli bacteremia from UTI. Noted marked elevated procalcitonin at 28 in the setting of LOLI. #Gram-negative bacilli bacteremia: Likely from UTI. However she rule out cholecystitis given elevated LFTs and tenderness right upper quadrant on exam. #UTI: Urinalysis with 71 WBCs and moderate leukocyte esterase. Urine culture pending. #RVR A. fib: Currently on heparin drip, was on amio gtt, cardiology on board #LOLI: Likely due to sepsis. #Transaminitis: Initial AST 128. ALT 67. Likely due to sepsis +/- passive liver congestion +/-cholecystitis? #Acute respiratory hypoxic failure: Likely secondary to volume overload. BNP 18K. The possibility of COVID-19 pneumonia is in the differential however less likely. Recommendations: -Follow-up blood cultures ID and HALI -Follow-up SARS-CoV-2 PCR -Obtain respiratory cultures -Continue cefepime 1 g IV every 12 hours -Okay to stop vancomycin -Follow-up echocardiogram -Obtain abdominal US rule out cholecystitis, hydronephrosis, pyelonephritis -Request HIV records, nursing communication ordered Guarded prognosis Dr. Butch cody tomorrow Will follow. Arlene Patel MD Infectious Diseases [facility] ([facility] M [phone] O [phone]
[2020-09-19] MEDS ORDERED: NORepinephrine/NS 4 MG-250 ML 4 MG/250 ML BAG IV ONE (09:51)
--- NOTE | 2020-09-19 10:05 | Progress Note ---
Assessment and Plan 70-year-old male with acute respiratory failure acute atrial fibrillation with RVR acute renal failure altered mental status malnourished, hiv, gram negative in discussion with renal patient's daughter renal function is worsening anticipated dialysis continue antibiotics as per ID for atrial fibrillation continue IV amiodarone as patient unable to take oral medications - Patient Problems (1) AMS (altered mental status) Current Visit: Yes Status: Acute Qualifiers: Altered mental status type: somnolence Qualified Code(s): R40.0 - Somnolence (2) Acute hypoxemic respiratory failure Current Visit: Yes Status: Acute (3) Acute kidney injury (LOLI) with acute tubular necrosis (ATN) Current Visit: Yes Status: Acute (4) Atrial fibrillation with RVR Current Visit: Yes Status: Acute (5) NSTEMI (non-ST elevated myocardial infarction) Current Visit: Yes Status: Acute (6) Metabolic acidosis Current Visit: No Status: Acute (7) Systemic inflammatory response syndrome Current Visit: No Status: Acute Subjective Date of service: 09/19/20 Principal diagnosis: afib Interval history: pt is still lethargic Objective Vital Signs Temp Pulse Pulse Resp BP Pulse Ox 09/19/20 09:14 100 09/19/20 06:15 104 H 26 H 88/63 100 09/19/20 06:00 100 H 26 H 90/59 99 09/19/20 05:45 97 H 27 H 99/50 99 09/19/20 05:30 107 H 27 H 90/68 100 09/19/20 05:15 94 H 27 H 89/65 100 09/19/20 05:00 108 H 28 H 87/63 100 09/19/20 04:47 110 H 29 H 85/56 100 09/19/20 04:45 105 H 28 H 87/63 100 09/19/20 04:30 113 H 25 H 85/56 100 09/19/20 04:15 108 H 28 H 90/66 99 09/19/20 04:03 116 H 09/19/20 04:00 109 H 27 H 80/59 100 09/19/20 03:46 102 H 27 H 80/59 100 09/19/20 03:30 107 H 29 H 91/59 100 09/19/20 03:15 107 H 27 H 91/59 99 09/19/20 03:00 104 H 28 H 86/62 100 09/19/20 02:45 107 H 27 H 92/65 100 09/19/20 02:30 111 H 27 H 89/59 100 09/19/20 02:15 106 H 28 H 97/55 99 09/19/20 02:00 109 H 29 H 89/63 100 09/19/20 01:46 104 H 27 H 92/68 100 09/19/20 01:30 106 H 28 H 85/52 99 02 01:15 99 H 28 H 92/59 100 02 01:00 117 H 27 H 91/65 100 09/19/20 00:45 101 H 28 H 87/59 100 09/19/20 00:30 104 H 30 H 99/64 100 09/19/20 00:25 107 H 29 H 94/68 100 09/19/20 00:15 113 H 30 H 94/65 100 09/19/20 00:00 92 H 29 H 90/61 100 09/18/20 23:46 104 H 29 H 88/62 99 09/18/20 23:30 106 H 28 H 87/60 99 09/18/20 23:15 104 H 31 H 95/59 100 09/18/20 23:00 106 H 30 H 91/66 100 09/18/20 22:52 118 H 31 H 96/65 100 09/18/20 22:45 107 H 31 H 96/65 100 09/18/20 22:30 116 H 31 H 94/69 99 09/18/20 22:15 108 H 32 H 94/69 100 09/18/20 22:00 111 H 30 H 89/63 99 09/18/20 21:45 106 H 29 H 90/66 09/18/20 21:30 113 H 31 H 99/70 09/18/20 21:21 102 H 32 H 100/54 97 09/18/20 21:15 107 H 31 H 100/54 09/18/20 21:00 106 H 32 H 100/54 09/18/20 20:47 99 09/18/20 20:45 114 H 29 H 93/72 09/18/20 20:31 107 H 28 H 90/63 98 09/18/20 20:15 107 H 27 H 77/52 09/18/20 20:00 110 H 28 H 77/52 84 05/01/21 19:45 103 H 33 H 93/55 /06/10 19:43 99.0 F 09/18/20 19:30 120 H 31 H 93/55 80 L 09/18/20 19:15 118 H 32 H 87/54 09/18/20 19:00 112 H 31 H 87/62 09/18/20 18:45 122 H 30 H 98/53 100 09/18/20 18:31 105 H 31 H 98/53 98 09/18/20 18:15 115 H 30 H 77/59 09/18/20 18:00 107 H 29 H 89/62 09/18/20 17:51 109 H 30 H 82/61 09/18/20 17:41 101 H 28 H 63/46 09/18/20 17:31 109 H 29 H 63/46 09/18/20 17:21 104 H 28 H 86/65 98 09/18/20 17:11 110 H 30 H 92/66 90 09/18/20 17:01 119 H 33 H 88/65 91 09/18/20 16:51 107 H 29 H 88/65 100 09/18/20 16:41 103 H 30 H 68/40 100 09/18/20 16:31 123 H 18 68/40 91 09/18/20 16:21 109 H 27 H 90/69 94 09/18/20 16:11 110 H 22 88/65 86 09/18/20 16:00 98.8 F 111 H 111 H 21 88/65 92 09/18/20 15:51 116 H 23 98/64 99 09/18/20 15:41 101 H 28 H 94/61 09/18/20 15:30 109 H 26 H 94/61 09/18/20 15:21 107 H 26 H 87/57 09/18/20 15:11 107 H 28 H 89/44 91 09/18/20 15:00 105 H 25 H 84/54 09/18/20 14:51 122 H 25 H 88/64 09/18/20 14:41 127 H 25 H 73/52 09/18/20 14:30 115 H 25 H 73/52 90 09/18/20 14:21 121 H 29 H 84/61 09/18/20 14:11 110 H 24 90/61 09/18/20 14:00 120 H 26 H 90/61 09/18/20 13:51 119 H 22 85/57 100 09/18/20 13:41 120 H 27 H 78/53 09/18/20 13:30 108 H 28 H 75/52 09/18/20 13:21 116 H 26 H 80/59 09/18/20 13:11 111 H 28 H 87/65 09/18/20 13:00 122 H 28 H 87/65 09/18/20 12:51 115 H 29 H 81/57 09/18/20 12:40 105 H 29 H 84/54 09/18/20 12:30 132 H 26 H 66/47 100 09/18/20 12:21 133 H 29 H 93/54 100 09/18/20 12:11 128 H 26 H 54/27 100 09/18/20 12:01 133 H 28 H 82/46 94 09/18/20 12:00 98.5 F 112 H 112 H 25 H 99 09/18/20 11:51 135 H 30 H 80/50 95 09/18/20 11:41 132 H 29 H 84/58 95 09/18/20 11:30 120 H 28 H 84/58 90 09/18/20 11:21 125 H 28 H 90/58 96 09/18/20 11:11 134 H 28 H 86/61 92 09/18/20 11:00 133 H 29 H 86/61 96 09/18/20 10:51 127 H 26 H 81/60 97 09/18/20 10:41 119 H 28 H 96/59 95 09/18/20 10:31 134 H 26 H 95/59 93 09/18/20 10:21 112 H 27 H 95/59 95 09/18/20 10:11 126 H 24 88/62 95 - Physical Examination General: Other HEENT: Positive: PERRL Neck: Positive: neck supple Cardiac: Positive: Irregularly Regular Lungs: Positive: Decreased Breath Sounds, Wheezes Neuro: Positive: Other Abdomen: Positive: Soft Extremities: Present: normal. Absent: edema - Labs and Meds Cardiac Enzymes 09/19/20 Range/Units 03:30 AST 163 H (5-40) units/L Coagulation 09/18/20 Range/Units 15:07 PT 20.3 H (12.2-14.9) Sec. INR 1.73 H (0.87-1.13) APTT 40.8 H (24.2-36.6) Sec. CBC 09/18/20 09/19/20 Range/Units 15:07 03:30 WBC 9.1 (4.5-11.0) K/mm3 RBC 3.29 L (3.65-5.03) M/mm3 Hgb 10.7 L 10.9 L (11.8-15.2) gm/dl Hct 31.3 L 30.9 L (35.5-45.6) % Plt Count 141 147 (140-440) K/mm3 Comprehensive Metabolic Panel 09/19/20 Range/Units 03:30 Sodium 133 L (137-145) mmol/L Potassium 4.8 (3.6-5.0) mmol/L Chloride 102.2 (98-107) mmol/L Carbon Dioxide 17 L (22-30) mmol/L BUN 94 H (9-20) mg/dL Creatinine 5.0 H (0.8-1.3) mg/dL Glucose 120 H (75-100) mg/dL Calcium 9.1 (8.4-10.2) mg/dL AST 163 H (5-40) units/L ALT 109 H (7-56) units/L Alkaline Phosphatase 160 H (35-129) units/L Total Protein 6.2 L (6.3-8.2) g/dL Albumin 2.0 L (3.9-5) g/dL - Imaging and Cardiology Echo: pending - Telemetry EKG Rhythm: Atrial Fibrillation
[2020-09-19] MEDS ORDERED: SODIUM BICARB 8.4% 50 MEQ/50 ML SYRINGE IV ONE (11:09)
--- NOTE | 2020-09-19 11:14 | Ultrasound Report ---
Abdominal ultrasound Limited INDICATION: Evaluate for cholecystitis FINDINGS: Gallbladder wall measures 3 mm. Large echogenic focus suggesting stone measures 1.2 x 0.2 x 1.0 cm. Common bile duct is not well seen. IMPRESSION: Large gallstone within the gallbladder. No pericholecystic fluid. Gallbladder wall is upper limits of normal measuring 3 mm. Signer Name: Ebenezer Grijalva MD Signed: 09/19/2020 11:09 AM Workstation Name: [id number]
--- NOTE | 2020-09-19 13:29 | Progress Note ---
Assessment and Plan Acute hypoxemic respiratory failure. Atrial fibrillation with rapid ventricular response. Gram negative bacteremia Acute congestive heart failure exacerbation. Acute on chronic kidney injury. Anemia that is microcytic. Coagulopathy appears to be acquired. Respiratory alkalosis. Mild metabolic acidosis. Possible severe sepsis with shock due to a urinary tract infection. Urinary tract infection - wean vasopressors for target MAP > 65 mmHg - follow COVID-19 test result - continue to wean supplemental oxygen for target O2 sat's > 92% acutely - Aspiration precautions - continue bronchodilators with pulmonary hygiene per RT - continue accuchecks with glycemic control per SSI (While critically ill target blood glucose of 140-180 mg/dL; avoid hypoglycemia) - avoid nephrotoxins, renally dose all medications - continue to avoid benzodiazepine's, reduce the possibility of delirium - complete AB's per ID rec's (on Cefepime) - prn analgesia per pain score - Maintenance of sleep-wake cycle, avoid delirium - G.I. & VTE prophylaxis - PT/OT/ROM exercises - continue mobility protocols for pressure ulcer prophylaxis - Monitor hemodynamics closely - continue other care per attending / other consultants - discharge planning ongoing concurrently COVID SPECIFIC INTERVENTIONS - Remdesivir as per ID/Pulmonary developed protocols - consider systemic steroids for severe COVID-19 infection empirically - follow repeat COVID tests results - zinc and vitamin C supplementation - Monitor inflammatory markers per facility protocol - ferritin, Ddimer, CRP - therapeutic anticoagulation per system Protocol based on d-dimer and clinical considerations - Continue contact and airborne isolation .... Re-evaluate in am & prn CONDITION: CRITICAL PROGNOSIS: GUARDED CODE STATUS: FULL CODE The high probability of a clinically significant, sudden or life-threatening deterioration of the [respiratory, cardiovascular & neurologic] system(s) required my full and direct attention, intervention and personal management. The aggregate critical care time was [34] minutes without overlap. Time includes spent on; [x] Data Review and interpretation [x] Patient assessment and monitoring of vital signs [x] Documentation [x] Medication orders and management Subjective Date of service: 09/19/20 Principal diagnosis: Ac hypoxemic resp failure; A-fib RVR; AE-CHF; LOLI; Septic shock; UTI Interval history: Patient is seen today for: Acute hypoxemic respiratory failure; A-fib with RVR; AE-CHF; LOLI on CKD; Severe sepsis with shock; UTI Seen and examined at bedside; 24hour events reviewed; nursing and respiratory care staff consulted; no adverse overnight events reported to me; resting peacefully in bed; remains on Levophed drip at 8 mics/min; still with A-fib RVR; remains on Amiodarone; less delirious overall; no emesis or overt aspiration; growing gm -ve rods Objective Vital Signs - 12hr 09/19/20 09/19/20 09/19/20 01:30 01:46 02:00 Pulse Rate 106 H 104 H 109 H Respiratory 28 H 27 H 29 H Rate Blood Pressure 85/52 92/68 89/63 O2 Sat by Pulse 99 100 100 Oximetry 09/19/20 09/19/20 09/19/20 02:15 02:30 02:45 Pulse Rate 106 H 111 H 107 H Respiratory 28 H 27 H 27 H Rate Blood Pressure 97/55 89/59 92/65 O2 Sat by Pulse 99 100 100 Oximetry 09/19/20 09/19/20 09/19/20 03:00 03:15 03:30 Pulse Rate 104 H 107 H 107 H Respiratory 28 H 27 H 29 H Rate Blood Pressure 86/62 91/59 91/59 O2 Sat by Pulse 100 99 100 Oximetry 09/19/20 09/19/20 09/19/20 03:46 04:00 04:03 Pulse Rate 102 H 109 H 116 H Respiratory 27 H 27 H Rate Blood Pressure 80/59 80/59 O2 Sat by Pulse 100 100 Oximetry 09/19/20 09/19/20 09/19/20 04:15 04:30 04:45 Pulse Rate 108 H 113 H 105 H Respiratory 28 H 25 H 28 H Rate Blood Pressure 90/66 85/56 87/63 O2 Sat by Pulse 99 100 100 Oximetry 09/19/20 09/19/20 09/19/20 04:47 05:00 05:15 Pulse Rate 110 H 108 H 94 H Respiratory 29 H 28 H 27 H Rate Blood Pressure 85/56 87/63 89/65 O2 Sat by Pulse 100 100 100 Oximetry 09/19/20 09/19/20 09/19/20 05:30 05:45 06:00 Pulse Rate 107 H 97 H 100 H Respiratory 27 H 27 H 26 H Rate Blood Pressure 90/68 99/50 90/59 O2 Sat by Pulse 100 99 99 Oximetry 09/19/20 09/19/20 09/19/20 06:15 06:30 06:45 Pulse Rate 104 H 104 H 91 H Respiratory 26 H 26 H 26 H Rate Blood Pressure 88/63 81/62 88/66 O2 Sat by Pulse 100 100 100 Oximetry 09/19/20 09/19/20 09/19/20 07:00 07:15 07:30 Pulse Rate 100 H 104 H 102 H Respiratory 27 H 26 H 25 H Rate Blood Pressure 91/61 87/59 92/61 O2 Sat by Pulse 100 98 97 Oximetry 09/19/20 09/19/20 09/19/20 07:45 08:00 08:15 Pulse Rate 105 H 103 H 108 H Respiratory 27 H 22 24 Rate Blood Pressure 84/59 94/59 107/73 O2 Sat by Pulse 100 84 Oximetry 09/19/20 09/19/20 09/19/20 08:30 08:45 09:00 Pulse Rate 89 98 H 106 H Respiratory 25 H 25 H 26 H Rate Blood Pressure 107/73 100/66 100/66 O2 Sat by Pulse 84 67 L Oximetry 09/19/20 09/19/20 09/19/20 09:14 09:16 09:30 Pulse Rate 111 H 110 H Respiratory 26 H 29 H Rate Blood Pressure 138/123 138/123 O2 Sat by Pulse 100 100 Oximetry 09/19/20 09/19/20 09/19/20 09:46 10:00 10:16 Pulse Rate 96 H 105 H 108 H Respiratory 28 H 26 H 23 Rate Blood Pressure 83/62 83/62 90/62 O2 Sat by Pulse 95 37 L Oximetry 09/19/20 09/19/20 09/19/20 10:30 10:46 11:00 Pulse Rate 125 H 128 H 133 H Respiratory 29 H 27 H 26 H Rate Blood Pressure 75/59 111/79 111/79 O2 Sat by Pulse 88 Oximetry 09/19/20 09/19/20 09/19/20 11:15 11:30 11:46 Pulse Rate 133 H 124 H 129 H Respiratory 27 H 27 H 26 H Rate Blood Pressure 92/75 97/69 65/42 O2 Sat by Pulse Oximetry 09/19/20 09/19/20 12:00 12:16 Pulse Rate 136 H 126 H Respiratory 27 H 28 H Rate Blood Pressure 65/42 145/108 O2 Sat by Pulse 98 97 Oximetry Constitutional: appears uncomfortable, other (elderly male with mildly increased respiratory effort at rest) Eyes: non-icteric ENT: oropharynx moist Neck: supple, no lymphadenopathy, no JVD Effort: mildly labored Ascultation: Bilateral: rhonchi Percussion: Bilateral: not dull Cardiovascular: irregular rhythm Gastrointestinal: normoactive bowel sounds, soft, non-tender, non-distended Integumentary: normal Extremities: no cyanosis, no edema, pulses normal, no ischemia or petechiae Neurologic: non-focal exam (grossly), pupils equal and round, CN II-XII normal, other (delirious) Psychiatric: other (delirious) CBC and BMP: 09/18/20 15:07 09/18/20 03:19 ABG, PT/INR, D-dimer: ABG ABG pH 7.508 (7.320-7.450) H 09/17/20 10:28 POC ABG pCO2 22.8 mmHg (32.0-48.0) L 09/17/20 10:28 POC ABG pO2 66.8 mmHg (83-108) L 09/17/20 10:28 POC ABG HCO3 17.7 09/17/20 10:28 ABG O2 Saturation 93.4 (0-100) 09/17/20 10:28 PT/INR, D-dimer PT 20.3 Sec. (12.2-14.9) H 09/18/20 15:07 INR 1.73 (0.87-1.13) H 09/18/20 15:07 Abnormal lab findings: Abnormal Labs 09/17/20 09/17/20 09/17/20 10:28 10:47 10:47 WBC 11.1 H RBC 3.44 L Hgb 11.2 L Hct 32.8 L MCV 95 H MCH MCHC Plt Count Seg Neuts % (Manual) Lymphocytes % (Manual) 4.0 L Seg Neutrophils # Man 10.7 H Lymphocytes # (Manual) 0.4 L PT 32.9 H INR 3.16 H APTT 51.1 H Heparin Anti-Xa Level ABG pH 7.508 H POC ABG pCO2 22.8 L POC ABG pO2 66.8 L ABG Oxyhemoglobin 92.7 L ABG Sodium 127.4 L ABG Potassium 4.7 H ABG Glucose 121 H Carboxyhemoglobin 0.4 L Sodium Chloride Carbon Dioxide BUN Creatinine Glucose POC Glucose Calcium Phosphorus Total Bilirubin AST ALT Alkaline Phosphatase Total Creatine Kinase Troponin T NT-Pro-B Natriuret Pep Total Protein Albumin Cholesterol LDL Cholesterol Direct HDL Cholesterol PTH Intact Arterial Blood Glucose 121 H Urine WBC (Auto) Urine Creatinine 09/17/20 09/17/20 09/17/20 10:47 10:47 13:54 WBC RBC Hgb Hct MCV MCH MCHC Plt Count Seg Neuts % (Manual) Lymphocytes % (Manual) Seg Neutrophils # Man Lymphocytes # (Manual) PT INR APTT Heparin Anti-Xa Level ABG pH POC ABG pCO2 POC ABG pO2 ABG Oxyhemoglobin ABG Sodium ABG Potassium ABG Glucose Carboxyhemoglobin Sodium 125 L Chloride 95.3 L Carbon Dioxide 17 L BUN 64 H Creatinine 4.6 H D Glucose 104 H POC Glucose Calcium Phosphorus Total Bilirubin AST 69 H ALT Alkaline Phosphatase Total Creatine Kinase Troponin T 0.061 H D 0.058 H NT-Pro-B Natriuret Pep 74419 H Total Protein Albumin 1.9 L Cholesterol 48 L LDL Cholesterol Direct 4 L HDL Cholesterol 9 L PTH Intact Arterial Blood Glucose Urine WBC (Auto) Urine Creatinine 09/17/20 09/17/20 09/17/20 16:36 17:35 17:35 WBC RBC 3.25 L Hgb 10.7 L Hct 31.1 L MCV 96 H MCH 33 H MCHC Plt Count Seg Neuts % (Manual) Lymphocytes % (Manual) Seg Neutrophils # Man Lymphocytes # (Manual) PT 31.9 H INR 3.04 H APTT 50.9 H Heparin Anti-Xa Level ABG pH POC ABG pCO2 POC ABG pO2 ABG Oxyhemoglobin ABG Sodium ABG Potassium ABG Glucose Carboxyhemoglobin Sodium Chloride Carbon Dioxide BUN Creatinine Glucose POC Glucose Calcium Phosphorus Total Bilirubin AST ALT Alkaline Phosphatase Total Creatine Kinase Troponin T 0.057 H NT-Pro-B Natriuret Pep Total Protein Albumin Cholesterol LDL Cholesterol Direct HDL Cholesterol PTH Intact Arterial Blood Glucose Urine WBC (Auto) Urine Creatinine 09/17/20 09/18/20 09/18/20 17:35 03:19 03:19 WBC RBC 3.32 L Hgb 10.9 L Hct 32.0 L MCV 96 H MCH 33 H MCHC Plt Count 138 L Seg Neuts % (Manual) 95.0 H Lymphocytes % (Manual) 3.0 L Seg Neutrophils # Man 8.1 H Lymphocytes # (Manual) 0.3 L PT INR APTT Heparin Anti-Xa Level ABG pH POC ABG pCO2 POC ABG pO2 ABG Oxyhemoglobin ABG Sodium ABG Potassium ABG Glucose Carboxyhemoglobin Sodium Chloride Carbon Dioxide 16 L BUN 70 H Creatinine 4.6 H 4.7 H Glucose 104 H POC Glucose Calcium 8.2 L Phosphorus Total Bilirubin 1.60 H AST 128 H ALT 67 H Alkaline Phosphatase Total Creatine Kinase Troponin T NT-Pro-B Natriuret Pep Total Protein 5.2 L D Albumin 2.5 L Cholesterol LDL Cholesterol Direct HDL Cholesterol PTH Intact Arterial Blood Glucose Urine WBC (Auto) Urine Creatinine 09/18/20 09/18/20 09/18/20 12:00 12:00 15:07 WBC RBC Hgb 10.7 L Hct 31.3 L MCV MCH MCHC Plt Count Seg Neuts % (Manual) Lymphocytes % (Manual) Seg Neutrophils # Man Lymphocytes # (Manual) PT INR APTT Heparin Anti-Xa Level ABG pH POC ABG pCO2 POC ABG pO2 ABG Oxyhemoglobin ABG Sodium ABG Potassium ABG Glucose Carboxyhemoglobin Sodium Chloride Carbon Dioxide BUN Creatinine Glucose POC Glucose Calcium Phosphorus Total Bilirubin AST ALT Alkaline Phosphatase Total Creatine Kinase Troponin T NT-Pro-B Natriuret Pep Total Protein Albumin Cholesterol LDL Cholesterol Direct HDL Cholesterol PTH Intact Arterial Blood Glucose Urine WBC (Auto) 71.0 H Urine Creatinine 61.0 H 09/18/20 09/18/20 09/19/20 15:07 18:33 03:30 WBC RBC 3.29 L Hgb 10.9 L Hct 30.9 L MCV MCH 33 H MCHC 35 H Plt Count Seg Neuts % (Manual) Lymphocytes % (Manual) Seg Neutrophils # Man Lymphocytes # (Manual) PT 20.3 H INR 1.73 H APTT 40.8 H Heparin Anti-Xa Level 1.09 H ABG pH POC ABG pCO2 POC ABG pO2 ABG Oxyhemoglobin ABG Sodium ABG Potassium ABG Glucose Carboxyhemoglobin Sodium Chloride Carbon Dioxide BUN Creatinine Glucose POC Glucose Calcium Phosphorus Total Bilirubin AST ALT Alkaline Phosphatase Total Creatine Kinase Troponin T NT-Pro-B Natriuret Pep Total Protein Albumin Cholesterol LDL Cholesterol Direct HDL Cholesterol PTH Intact Arterial Blood Glucose Urine WBC (Auto) Urine Creatinine 09/19/20 09/19/20 09/19/20 03:30 03:30 06:35 WBC RBC Hgb Hct MCV MCH MCHC Plt Count Seg Neuts % (Manual) Lymphocytes % (Manual) Seg Neutrophils # Man Lymphocytes # (Manual) PT INR APTT Heparin Anti-Xa Level ABG pH POC ABG pCO2 POC ABG pO2 ABG Oxyhemoglobin ABG Sodium ABG Potassium ABG Glucose Carboxyhemoglobin Sodium 133 L Chloride Carbon Dioxide 17 L BUN 94 H Creatinine 5.0 H Glucose 120 H POC Glucose 123 H Calcium Phosphorus 6.30 H Total Bilirubin 2.40 H AST 163 H ALT 109 H Alkaline Phosphatase 160 H Total Creatine Kinase 20 L Troponin T NT-Pro-B Natriuret Pep Total Protein 6.2 L Albumin 2.0 L Cholesterol LDL Cholesterol Direct HDL Cholesterol PTH Intact 161.4 H Arterial Blood Glucose Urine WBC (Auto) Urine Creatinine Allied health notes reviewed: nursing
[2020-09-19] MEDS: HEPARIN/ 0.45% NACL DRIP 25,000 UNIT/500 ML BAG IV SCH (13:50)
[2020-09-19] MEDS ORDERED: AMIODARONE 150 MG in DEXTROSE 5% IN WATER 97 ML IV ONE (20:59)
[2020-09-19] MEDS: AMIODARONE 900 MG in DEXTROSE 5% IN WATER 482 ML IV SCH (21:32)
[2020-09-20] MEDS: NORepinephrine/NS 4 MG-250 ML 4 MG/250 ML BAG IV SCH ×4 (01:28→17:00)
[2020-09-20] MEDS: CEFEPIME/NS 1 GM/100 ML 1 GM/100 ML BAG IV SCH ×2 (03:44)
[2020-09-20] MEDS: FUROSEMIDE 20 MG/2 ML INJ IV SCH (05:17)
[2020-09-20 05:57] LABS: Hematocrit 32.2 % (35.5-45.6); Hemoglobin 11.1 gm/dl (11.8-15.2); Mean Corpuscular HGB Conc 34 % (32-34); Mean Corpuscular Volume 94 fl (84-94); Platelet Count 131 K/mm3 (140-440); Red Blood Count 3.43 M/mm3 (3.65-5.03); Red Cell Distribution Width 13.8 % (13.2-15.2)
[2020-09-20 06:17] LABS: Calcium 8.7 mg/dL (8.4-10.2)
[2020-09-20 07:53] LABS: Anisocytosis 1+; Platelet Estimate Consistent w Auto; Total Cells Counted 100
--- NOTE | 2020-09-20 09:29 | Progress Note ---
Assessment and Plan 1. Acute kidney injury: Vasomotor LOLI in the setting of shock. ATN likely. Renal US negative for hydro. Bladder scan 139 ml (09/19). Monitor renal function. Creatinine level is increasing. Renal prognosis is guarded. Avoid nephrotoxic agents. Meds dosage based on GFR. Monitor for [employer] needs. Patient require hemodialysis due to significant decline in the renal function. D/w his daughter over the phone (09/20) about the indications, benefits, risks and alternatives involved in hemodialysis. She voiced understanding and gave verbal consent. Requested to insert temp hemodialysis catheter. HD today, orders placed. 2. FEN: Metabolic acidosis, monitor. Monitor volume status and lytes. 3. Acute hypoxic respiratory failure: Likely 2/2 CHF. Covid test pending. Supplemental O2. 4. Acute CHF: Echocardiogram: EF 40-45%. CHF orderset / pathway. Monitor. 5. Atrial fibrillation with RVR: Amio drip. Followed by Cards. 6. Elevated troponin: Trend. Followed by Cards. 7. Coagulopathy: Trend. 8. Shock / Hypotension: Multifactorial, monitor. On Levophed. 9. Elevated Transaminases: Trend. 10. Metabolic encephalopathy: Monitor. 11. Anemia, POA: Monitor. Subjective: Patient was seen and examined at the bedside. Objective: General appearance: well-developed, appears stated age, appears emaciated, no d istress, NC O2 HEENT: ATNC, L pupil dilated Neck: trachea midline Respiratory: bilateral diminished breath sounds Heart: irregular, S1S2, no murmur Gastrointestinal: soft, normoactive bowel sounds, not tender Integumentary: no obvious rash Ext: no edema Neurologic: lethargic, non-verbal, not following any command Subjective Date of service: 09/20/20 Principal diagnosis: Ac hypoxemic resp failure; A-fib RVR; AE-CHF; LOLI; Septic shock; UTI Objective - Vital Signs Vital signs: Vital Signs - 12hr 09/19/20 09/19/20 09/19/20 21:30 21:38 21:46 Temperature Pulse Rate 141 H 133 H 125 H Pulse Rate [ From Monitor] Respiratory 26 H 20 22 Rate Blood Pressure 91/46 91/46 81/52 O2 Sat by Pulse 100 100 100 Oximetry 09/19/20 09/19/20 09/19/20 22:00 22:16 22:30 Temperature Pulse Rate 118 H 123 H 123 H Pulse Rate [ From Monitor] Respiratory 25 H 26 H 25 H Rate Blood Pressure 94/39 70/32 O2 Sat by Pulse 100 100 100 Oximetry 09/19/20 09/19/20 09/19/20 22:46 23:00 23:15 Temperature Pulse Rate 137 H 124 H 124 H Pulse Rate [ From Monitor] Respiratory 25 H 21 25 H Rate Blood Pressure 97/75 O2 Sat by Pulse 100 100 100 Oximetry 09/19/20 09/19/20 09/20/20 23:30 23:46 00:00 Temperature 98.9 F Pulse Rate 132 H 131 H 133 H Pulse Rate [ From Monitor] Respiratory 23 24 26 H Rate Blood Pressure 85/23 85/23 O2 Sat by Pulse 100 100 100 Oximetry 09/20/20 09/20/20 09/20/20 00:16 00:30 00:46 Temperature Pulse Rate 131 H 130 H 130 H Pulse Rate [ From Monitor] Respiratory 25 H 25 H 25 H Rate Blood Pressure 105/70 O2 Sat by Pulse 100 100 100 Oximetry 09/20/20 09/20/20 09/20/20 01:00 01:16 01:30 Temperature Pulse Rate 137 H 144 H 134 H Pulse Rate [ From Monitor] Respiratory 25 H 22 26 H Rate Blood Pressure 125/81 102/74 102/74 O2 Sat by Pulse 100 99 100 Oximetry 09/20/20 09/20/20 09/20/20 01:46 02:00 02:16 Temperature Pulse Rate 129 H 138 H 120 H Pulse Rate [ From Monitor] Respiratory 24 24 25 H Rate Blood Pressure 102/74 118/65 O2 Sat by Pulse 100 100 100 Oximetry 09/20/20 09/20/20 09/20/20 02:30 02:46 03:00 Temperature Pulse Rate 131 H 139 H 133 H Pulse Rate [ From Monitor] Respiratory 24 25 H 26 H Rate Blood Pressure O2 Sat by Pulse 100 100 100 Oximetry 09/20/20 09/20/20 09/20/20 03:16 03:30 03:37 Temperature 98.8 F Pulse Rate 109 H 131 H Pulse Rate [ From Monitor] Respiratory 28 H Rate Blood Pressure 89/64 O2 Sat by Pulse 96 98 Oximetry 09/20/20 09/20/20 09/20/20 03:45 03:46 03:53 Temperature Pulse Rate 123 H 140 H 116 H Pulse Rate [ From Monitor] Respiratory 24 20 Rate Blood Pressure 107/91 90/58 O2 Sat by Pulse 99 99 Oximetry 09/20/20 09/20/20 09/20/20 04:00 04:15 04:30 Temperature Pulse Rate 119 H 124 H 138 H Pulse Rate [ From Monitor] Respiratory 20 23 22 Rate Blood Pressure 120/86 117/79 O2 Sat by Pulse 100 100 100 Oximetry 09/20/20 09/20/20 09/20/20 04:45 05:00 05:15 Temperature Pulse Rate 122 H 130 H 128 H Pulse Rate [ From Monitor] Respiratory 23 22 22 Rate Blood Pressure 110/81 113/89 O2 Sat by Pulse 100 100 100 Oximetry 09/20/20 09/20/20 09/20/20 05:30 05:45 06:00 Temperature Pulse Rate 130 H 130 H 131 H Pulse Rate [ From Monitor] Respiratory 22 21 20 Rate Blood Pressure 123/81 132/81 118/78 O2 Sat by Pulse 100 100 100 Oximetry 09/20/20 09/20/20 09/20/20 06:16 06:30 06:45 Temperature Pulse Rate 128 H 134 H 145 H Pulse Rate [ From Monitor] Respiratory 23 26 H 21 Rate Blood Pressure 122/82 125/77 123/85 O2 Sat by Pulse 100 100 100 Oximetry 09/20/20 09/20/20 09/20/20 07:00 07:16 07:30 Temperature Pulse Rate 126 H 139 H 138 H Pulse Rate [ From Monitor] Respiratory 20 20 23 Rate Blood Pressure 116/89 121/81 121/81 O2 Sat by Pulse 100 100 100 Oximetry 09/20/20 09/20/20 09/20/20 07:46 08:00 08:15 Temperature Pulse Rate 134 H 129 H 127 H Pulse Rate [ From Monitor] Respiratory 21 21 18 Rate Blood Pressure 122/88 123/87 118/86 O2 Sat by Pulse 100 100 100 Oximetry 09/20/20 09/20/20 09/20/20 08:30 08:45 08:51 Temperature Pulse Rate 127 H 127 H Pulse Rate [ 127 H From Monitor] Respiratory 19 19 21 Rate Blood Pressure 106/75 123/75 O2 Sat by Pulse 100 100 100 Oximetry - Lab 09/20/20 04:00 09/20/20 04:00 Most recent lab results ABG pH 7.508 (7.320-7.450) H 09/17/20 10:28 ABG O2 Saturation 93.4 (0-100) 09/17/20 10:28 Calcium 8.7 mg/dL (8.4-10.2) 09/20/20 04:00 Phosphorus 6.30 mg/dL (2.5-4.5) H 09/19/20 03:30 Magnesium 1.80 mg/dL (1.7-2.3) 09/17/20 10:47 Urine Creatinine 61.0 mg/dL (0.1-20.0) H 09/18/20 12:00 Urine Sodium 62 mmol/L 09/18/20 12:00 Medications & Allergies - Medications Allergies/Adverse Reactions: Allergies No Known Allergies Allergy (Unverified 09/15/20 06:37) Home Medications: Home Medications Medication Instructions Recorded Confirmed Last Taken Type AtorvaSTATin [Lipitor] 20 mg PO QHS 09/18/20 09/18/20 Unknown History Dolutegravir [Tivicay] 50 mg PO DAILY 09/18/20 09/18/20 Unknown History Emtricitabine/Tenofov Alafenam 1 tab PO DAILY 09/18/20 09/18/20 Unknown History [Descovy 200-25 mg (Nf)] Rivaroxaban [Xarelto] 15 mg PO QDAY 09/18/20 09/18/20 Unknown History allopurinoL [Zyloprim] 300 mg PO QDAY 09/18/20 09/18/20 Unknown History carvediloL [Coreg] 25 mg PO BID 09/18/20 09/18/20 Unknown History lisinopriL [Lisinopril] 20 mg PO DAILY 09/18/20 09/18/20 Unknown History Active Medications: Generic Name Dose Route Start Last Admin Trade Name Freq PRN Reason Stop Dose Admin Acetaminophen 650 mg 09/17/20 13:52 Acetaminophen 325 Mg Tab PO Q4H PRN Pain MILD(1-3)/Fever >100.5/ANGEL Albuterol 2.5 mg 09/17/20 13:52 09/17/20 20:47 Albuterol 2.5 Mg/3 Ml Nebu IH 2.5 mg Q4HRT PRN Administration Shortness Of Breath Famotidine 20 mg 09/18/20 16:00 09/19/20 09:06 Famotidine 20 Mg/2 Ml Inj IV 20 mg QDAY EDIE Administration Furosemide 60 mg 09/19/20 11:09 09/20/20 05:17 Furosemide 20 Mg/2 Ml Inj IV 60 mg BID@0600,1800 EDIE Administration Hydromorphone HCl 0.25 mg 09/17/20 14:50 09/17/20 15:42 Hydromorphone 1 Mg/1 Ml Inj IV 0.25 mg ONCE PRN Administration Pain , Severe (7-10) Amiodarone HCl 900 mg/ 500 mls @ 33.333 mls/hr 09/18/20 12:00 09/20/20 03:50 Dextrose IV 0.5 mg/min DIRECT EDIE 16.667 mls/hr Infusion Protocol 1 MG/MIN Norepinephrine 4 mg in 250 mls @ 7.5 mls/hr 09/19/20 11:00 09/20/20 06:32 Levophed Drip 4 Mg/Ns 250 Ml IV 14 mcg/min TITR EDIE 52.5 mls/hr Administration Protocol 2 MCG/MIN Cefepime HCl 2 gm in 100 mls @ 200 mls/hr 09/20/20 15:00 Cefepime/Ns 2 Gm/100 Ml IV Q24H [facility] Protocol Metoprolol Tartrate 5 mg 09/19/20 19:06 Metoprolol Tartrate 5 Mg/5 Ml Inj IV Q8HR PRN HR > 135 Minute Ondansetron HCl 4 mg 09/17/20 13:52 Ondansetron 4 Mg/2 Ml Inj IV Q8H PRN Nausea And Vomiting Sodium Chloride 10 ml 09/17/20 22:00 09/19/20 22:00 Sodium Chloride 0.9% 10 Ml Flush Syringe IV 10 ml BID EDIE Administration Sodium Chloride 10 ml 09/17/20 13:52 Sodium Chloride 0.9% 10 Ml Flush Syringe IV PRN PRN LINE FLUSH
[2020-09-20] MEDS: FAMOTIDINE 20 MG/2 ML INJ IV SCH (09:58)
[2020-09-20] MEDS: AMIODARONE 900 MG in DEXTROSE 5% IN WATER 482 ML IV SCH (09:58)
[2020-09-20] MEDS ORDERED: HEPARIN 10,000 UNITS/10 ML VIAL IV PRN (10:06)
[2020-09-20] MEDS ORDERED: SODIUM CHLORIDE 0.9% 100 ML IV PRN (10:06)
--- NOTE | 2020-09-20 10:22 | Progress Note ---
Assessment and Plan Assessment and plan: This is 70-year-old male with HIV, HTN, and atrial fibrillation (currently on therapeutic anticoagulation with Xarelto) admitted with atrial fibrillation with RVR, SIRs, metabolic acidosis, acute kidney injury, acute hypoxic respiratory failure, hypotension, and CHF Septic Shock Acute hypoxemic respiratory failure 2/2 to volume overload/chf exacerbation Acute systolic heart failure exacerbation Atrial fibrillation with RVR Acute on chronic kidney injury Hypotension Anemia Gram-negative bacilli bacteremia (E. coli 1/2 bottles, awaiting speciation of other bottle) E. coli urinary tract infection NSTEMI Metabolic acidosis HIV HTN Coagulopathy Metabolic acidosis Transaminitis -Cardiology, CCM, Nephrology, ID, general surgery consulted, appreciate recommendations -09/20 COVID-19 PCR positive -Droplet/isolation precautions -Dexamethasone 6 mg p.o. (09/20-09/30) -Vitamin D, vitamin C, zinc -Vasopressor support with levophed -09/17 CXR shows borderline heart size, mild central pulmonary venous congestion -09/17 renal ultrasound shows no acute findings -09/18 echocardiogram shows left ventricle systolic function mildly decreased, LVEF of 40 to 45% with mild concentric left ventricle hypertrophy, trace MR, mild TR, trace CA -09/19 abdominal ultrasound shows large gallstone within the gallbladder, no pe richolecystic fluid, gallbladder wall upper limits of normal measuring 3 mm -09/20 HIDA scan pending -09/17 proBNP 15990 -S/p IV Lasix twice daily -09/20 nephrology initiate the patient on dialysis -Pulmonary hygiene -Bipap qhs -IV amiodarone -HIV meds per ID -IV abx therapy -Trend CBC, BMP, LFTs DVT/GI prophylaxis: PPI, SCDs to bilateral lower extremities while in bed, systemic coagulation with heparin (on hold for procedure 09/20) Disposition: ICU The high probability of a clinically significant, sudden or life threatening deterioration of the [multi] system(s) required my full and direct attention, intervention and personal management. The aggregate critical care time was [35] minutes. This time is in addition to time spent performing reported procedures but includes the following: [x] Data Review and interpretation [x] Patient assessment and monitoring of vital signs [x] Documentation [x] Medication orders and management History Interval history: This is 70-year-old male with HIV, HTN, and atrial fibrillation (currently on therapeutic anticoagulation with Xarelto) presents the emergency department on 09/17 with complaints of shortness of breath over the past 3 days and on arrival of EMS patient was found to have a pulse oximetry of 85% on room air. He was placed on supplemental oxygenation. Of note patient was admitted on 09/15 with similar complaints and found to have A. fib with RVR, hyponatremia, hypomagnesemia and acute kidney injury and left AMA. He was admitted to the hospital service with atrial fibrillation with RVR, SIRs, metabolic acidosis, acute kidney injury, acute hypoxic respiratory failure, hypotension, and CHF . Cardiology, CCM and nephrology were consulted. 09/18/2020. Await echocardiogram to assess for diastolic versus systolic etiology. Patient with elevated BNP greater than 18,000. Patient apparently was admitted approximately 3 days ago but left AMA. Cardiology consulted for heart failure, A. fib with RVR and elevated troponin. Patient denies chest pain. Also, patient with elevated creatinine of 4.7 with creatinine 2.8 on recent admission. We do not have a previous creatinine as a baseline to compare. Nephrology consultation pending. Follow-up renal ultrasound. Patient with coagulopathy and INR 3.04. Unsure if patient was on anticoagulation for A. fib. 09/19/2020. Patient likely with vasomotor acute kidney injury in the setting of shock. Follow-up urine studies and renal ultrasound. Creatinine continues to worsen. Nephrology following. Etiology of respiratory failure secondary to heart failure with Covid testing pending. Elevated troponin suggestive of NSTEMI. Continue diuresis with Lasix. Continue IV amiodarone for rate control of A. fib with RVR. Continue heparin. Follow-up echocardiogram. Cardiology following. 09/20/2020: This time my examination patient was on BiPAP therapy and now is on nasal cannula. Patient remains on amiodarone drip with heart rate in the 130s to 140s and vasopressor support with Levophed. Today nephrology will initiate hemodialysis given worsening renal function studies and has stopped diuresis with Lasix. ID resumed antiretroviral therapy and ordered a HIDA scan. Today the patient received a temporary Vas-Cath and is COVID-19 PCR resulted as positive. Patient will be started on vitamin C, vitamin D and zinc and dex amethasone given need for supplemental oxygenation. Hospitalist Physical - Constitutional Vitals: Temp Pulse Resp BP Pulse Ox 97.6 F 132 H 22 119/83 98 09/20/20 08:00 09/20/20 10:00 09/20/20 10:00 09/20/20 10:00 09/20/20 10:00 General appearance: Present: mild distress - EENT Eyes: Present: PERRL ENT: poor dentition - Neck Neck: Absent: masses or JVD, cervical LAD - Respiratory Respiratory effort: normal Respiratory: bilateral: diminished - Cardiovascular Rhythm: irregularly irregular Heart Sounds: Present: S1 & S2. Absent: systolic murmur, diastolic murmur - Extremities Extremities: no ischemia, pulses intact, pulses symmetrical, normal temperature, normal color Extremity abnormal: edema Peripheral Pulses: within normal limits - Abdominal General gastrointestinal: soft, non-tender, non-distended, normal bowel sounds - Integumentary Integumentary: Present: warm, dry - Psychiatric Psychiatric: other (lethergic) - Neurologic Neurologic: moves all extremities - Allied Health Allied health notes reviewed: nursing, RT HEART Score - HEART Score Troponin: Troponin T 0.057 ng/mL (0.00-0.029) H 09/17/20 16:36 Results - Labs CBC & Chem 7: 09/20/20 04:00 09/20/20 04:00 Labs: Laboratory Last Values WBC 9.3 K/mm3 (4.5-11.0) 09/20/20 04:00 RBC 3.43 M/mm3 (3.65-5.03) L 09/20/20 04:00 Hgb 11.1 gm/dl (11.8-15.2) L 09/20/20 04:00 Hct 32.2 % (35.5-45.6) L 09/20/20 04:00 MCV 94 fl (84-94) 09/20/20 04:00 MCH 32 pg (28-32) 09/20/20 04:00 MCHC 34 % (32-34) 09/20/20 04:00 RDW 13.8 % (13.2-15.2) 09/20/20 04:00 Plt Count 131 K/mm3 (140-440) L 09/20/20 04:00 Add Manual Diff Complete 09/20/20 04:00 Total Counted 100 09/20/20 04:00 Seg Neutrophils % Lead Sales Consultant 09/17/20 10:47 Seg Neuts % (Manual) 88.0 % (40.0-70.0) H 09/20/20 04:00 Lymphocytes % (Manual) 3.0 % (13.4-35.0) L 09/20/20 04:00 Monocytes % (Manual) 9.0 % (0.0-7.3) H 09/20/20 04:00 Nucleated RBC % Not Reportable 09/20/20 04:00 Seg Neutrophils # Man 8.2 K/mm3 (1.8-7.7) H 09/20/20 04:00 Band Neutrophils # 0.0 K/mm3 09/20/20 04:00 Lymphocytes # (Manual) 0.3 K/mm3 (1.2-5.4) L 09/20/20 04:00 Abs React Lymphs (Man) 0.0 K/mm3 09/20/20 04:00 Monocytes # (Manual) 0.8 K/mm3 (0.0-0.8) 09/20/20 04:00 Eosinophils # (Manual) 0.0 K/mm3 (0.0-0.4) 09/20/20 04:00 Basophils # (Manual) 0.0 K/mm3 (0.0-0.1) 09/20/20 04:00 Metamyelocytes # 0.0 K/mm3 09/20/20 04:00 Myelocytes # 0.0 K/mm3 09/20/20 04:00 Promyelocytes # 0.0 K/mm3 09/20/20 04:00 Blast Cells # 0.0 K/mm3 09/20/20 04:00 WBC Morphology Not Reportable 09/20/20 04:00 Hypersegmented Neuts Not Reportable 09/20/20 04:00 Hyposegmented Neuts Not Reportable 09/20/20 04:00 Hypogranular Neuts Not Reportable 09/20/20 04:00 Smudge Cells Not Reportable 09/20/20 04:00 Toxic Granulation Not Reportable 09/20/20 04:00 Toxic Vacuolation Not Reportable 09/20/20 04:00 Dohle Bodies Not Reportable 09/20/20 04:00 Pelger-Huet Anomaly Not Reportable 09/20/20 04:00 Vinh Rods Not Reportable 09/20/20 04:00 Platelet Estimate Consistent w auto 09/20/20 04:00 Clumped Platelets Not Reportable 09/20/20 04:00 Plt Clumps, EDTA Not Reportable 09/20/20 04:00 Large Platelets Not Reportable 09/20/20 04:00 Giant Platelets Not Reportable 09/20/20 04:00 Platelet Satelliting Not Reportable 09/20/20 04:00 Plt Morphology Comment Not Reportable 09/20/20 04:00 RBC Morphology Not Reportable 09/20/20 04:00 Dimorphic RBCs Not Reportable 09/20/20 04:00 Polychromasia Not Reportable 09/20/20 04:00 Hypochromasia Not Reportable 09/20/20 04:00 Poikilocytosis Not Reportable 09/20/20 04:00 Anisocytosis 1+ 09/20/20 04:00 Microcytosis Not Reportable 09/20/20 04:00 Macrocytosis Not Reportable 09/20/20 04:00 Spherocytes Not Reportable 09/20/20 04:00 Pappenheimer Bodies Not Reportable 09/20/20 04:00 Sickle Cells Not Reportable 09/20/20 04:00 Target Cells Not Reportable 09/20/20 04:00 Tear Drop Cells Not Reportable 09/20/20 04:00 Ovalocytes Not Reportable 09/20/20 04:00 Helmet Cells Not Reportable 09/20/20 04:00 [place] Bodies Not Reportable 09/20/20 04:00 [place] Rings Not Reportable 09/20/20 04:00 [place] Cells Not Reportable 09/20/20 04:00 Bite Cells Not Reportable 09/20/20 04:00 Crenated Cell Not Reportable 09/20/20 04:00 Elliptocytes Not Reportable 09/20/20 04:00 Acanthocytes (Spur) Not Reportable 09/20/20 04:00 Rouleaux Not Reportable 09/20/20 04:00 Hemoglobin C Crystals Not Reportable 09/20/20 04:00 Schistocytes Not Reportable 09/20/20 04:00 Malaria parasites Not Reportable 09/20/20 04:00 Zachary Bodies Not Reportable 09/20/20 04:00 Hem Pathologist Commnt No 09/20/20 04:00 PT 20.3 Sec. (12.2-14.9) H 09/18/20 15:07 INR 1.73 (0.87-1.13) H 09/18/20 15:07 APTT 40.8 Sec. (24.2-36.6) H 09/18/20 15:07 Heparin Anti-Xa Level 0.10 U.I./ml (0.3-0.7) L 09/20/20 04:00 ABG pH 7.508 (7.320-7.450) H 09/17/20 10:28 POC ABG pCO2 22.8 mmHg (32.0-48.0) L 09/17/20 10:28 POC ABG pO2 66.8 mmHg (83-108) L 09/17/20 10:28 POC ABG HCO3 17.7 09/17/20 10:28 ABG O2 Saturation 93.4 (0-100) 09/17/20 10:28 POC ABG Base Excess -3.5 09/17/20 10:28 ABG Hemoglobin 12.7 (12.0-17.5) 09/17/20 10:28 ABG Oxyhemoglobin 92.7 (94-98) L 09/17/20 10:28 ABG Methemoglobin 0.3 (0.0-1.5) 09/17/20 10:28 ABG Sodium 127.4 mmol/L (136.0-145.0) L 09/17/20 10:28 ABG Potassium 4.7 mmol/L (3.40-4.50) H 09/17/20 10:28 ABG Chloride 101.0 mmol/L (98-107) 09/17/20 10:28 ABG Glucose 121 mg/dL (65-95) H 09/17/20 10:28 Carboxyhemoglobin 0.4 (0.5-1.5) L 09/17/20 10:28 FiO2 % 21 09/17/20 10:28 Sodium 138 mmol/L (137-145) 09/20/20 04:00 Potassium 4.4 mmol/L (3.6-5.0) 09/20/20 04:00 Chloride 105.5 mmol/L (98-107) 09/20/20 04:00 Carbon Dioxide 16 mmol/L (22-30) L 09/20/20 04:00 Anion Gap 21 mmol/L 09/20/20 04:00 BUN 119 mg/dL (9-20) H 09/20/20 04:00 Creatinine 6.2 mg/dL (0.8-1.3) H 09/20/20 04:00 Estimated GFR 11 ml/min 09/20/20 04:00 BUN/Creatinine Ratio 19 % 09/20/20 04:00 Glucose 136 mg/dL (75-100) H 09/20/20 04:00 POC Glucose 137 mg/dL (70-105) H 09/20/20 05:37 Lactic Acid 1.60 mmol/L (0.7-2.0) 09/18/20 15:07 Calcium 8.7 mg/dL (8.4-10.2) 09/20/20 04:00 Phosphorus 6.30 mg/dL (2.5-4.5) H 09/19/20 03:30 Magnesium 1.80 mg/dL (1.7-2.3) 09/17/20 10:47 Total Bilirubin 2.40 mg/dL (0.1-1.2) H 09/19/20 03:30 AST 163 units/L (5-40) H 09/19/20 03:30 ALT 109 units/L (7-56) H 09/19/20 03:30 Alkaline Phosphatase 160 units/L (35-129) H 09/19/20 03:30 Total Creatine Kinase 20 units/L (55-170) L 09/19/20 03:30 Troponin T 0.057 ng/mL (0.00-0.029) H 09/17/20 16:36 NT-Pro-B Natriuret Pep 90179 pg/mL (0-900) H 09/17/20 10:47 Total Protein 6.2 g/dL (6.3-8.2) L 09/19/20 03:30 Albumin 2.0 g/dL (3.9-5) L 09/19/20 03:30 Albumin/Globulin Ratio 0.5 % 09/19/20 03:30 Triglycerides 137 mg/dL (2-149) 09/17/20 13:54 Cholesterol 48 mg/dL (50-199) L 09/17/20 13:54 LDL Cholesterol Direct 4 mg/dL (50-130) L 09/17/20 13:54 HDL Cholesterol 9 mg/dL (40-59) L 09/17/20 13:54 Cholesterol/HDL Ratio 5.33 % 09/17/20 13:54 Procalcitonin 38.53 ng/mL (<0.15) 09/18/20 15:07 PTH Intact 161.4 pg/mL (15-65) H 09/19/20 03:30 Arterial Blood Glucose 121 mg/dL (65-95) H 09/17/20 10:28 Arterial Blood Ionized Calcium 5.0 mg/dL (4.6-5.3) 09/17/20 10:28 Urine Color Yellow (Yellow) 09/18/20 12:00 Urine Turbidity Cloudy (Clear) 09/18/20 12:00 Urine pH 5.0 (5.0-7.0) 09/18/20 12:00 Ur Specific [place] 1.009 (1.003-1.030) 09/18/20 12:00 Urine Protein 30 mg/dl mg/dL (Negative) 09/18/20 12:00 Urine Glucose (UA) Neg mg/dL (Negative) 09/18/20 12:00 Urine Ketones Neg mg/dL (Negative) 09/18/20 12:00 Urine Blood Sm (Negative) 09/18/20 12:00 Urine Nitrite Neg (Negative) 09/18/20 12:00 Urine Bilirubin Neg (Negative) 09/18/20 12:00 Urine Urobilinogen < 2.0 mg/dL (<2.0) 09/18/20 12:00 Ur Leukocyte Esterase Mod (Negative) 09/18/20 12:00 Urine WBC (Auto) 71.0 /HPF (0.0-6.0) H 09/18/20 12:00 Urine RBC (Auto) 2.0 /HPF (0.0-6.0) 09/18/20 12:00 U Epithel Cells (Auto) 1.0 /HPF (0-13.0) 09/18/20 12:00 Urine Bacteria (Auto) 4+ /HPF (Negative) 09/18/20 12:00 Urine WBC Clumps 2+ /HPF 09/18/20 12:00 Hyaline Casts 3 /LPF 09/18/20 12:00 Granular Casts 3 /LPF 09/18/20 12:00 Urine Mucus Few /HPF 09/18/20 12:00 Urine Eosinophils None seen (None Seen) 09/19/20 03:15 Urine Creatinine 61.0 mg/dL (0.1-20.0) H 09/18/20 12:00 Urine Sodium 62 mmol/L 09/18/20 12:00 Random Vancomycin 12.7 ug/mL (0-40.0) 09/19/20 03:30 Microbiology: Microbiology 09/18/20 02:01 Peripheral/Venous Blood Culture - Preliminary Gram Negative Compa 09/18/20 03:19 Peripheral/Venous Blood Culture - Preliminary Gram Negative Compa Gardner/IV: Voiding Method Condom Catheter Active Medications - Current Medications Current Medications: Generic Name Dose Route Start Last Admin Trade Name Freq PRN Reason Stop Dose Admin Acetaminophen 650 mg 09/17/20 13:52 Acetaminophen 325 Mg Tab PO Q4H PRN Pain MILD(1-3)/Fever >100.5/ANGEL Albuterol 2.5 mg 09/17/20 13:52 09/17/20 20:47 Albuterol 2.5 Mg/3 Ml Nebu IH 2.5 mg Q4HRT PRN Administration Shortness Of Breath Famotidine 20 mg 09/18/20 16:00 09/20/20 09:58 Famotidine 20 Mg/2 Ml Inj IV 20 mg QDAY EDIE Administration Heparin Sodium (Porcine) 3,000 unit 09/20/20 10:06 Heparin 10,000 Units/10 Ml Vial IV VIRGIL PRN hemodialysis Hydromorphone HCl 0.25 mg 09/17/20 14:50 09/17/20 15:42 Hydromorphone 1 Mg/1 Ml Inj IV 0.25 mg ONCE PRN Administration Pain , Severe (7-10) Amiodarone HCl 900 mg/ 500 mls @ 33.333 mls/hr 09/18/20 12:00 09/20/20 09:58 Dextrose IV 0.5 mg/min DIRECT EDIE 16.667 mls/hr Administration Protocol 1 MG/MIN Norepinephrine 4 mg in 250 mls @ 7.5 mls/hr 09/19/20 11:00 09/20/20 09:59 Levophed Drip 4 Mg/Ns 250 Ml IV 10 mcg/min TITR EDIE 37.5 mls/hr Titration Protocol 2 MCG/MIN Cefepime HCl 2 gm in 100 mls @ 200 mls/hr 09/20/20 15:00 Cefepime/Ns 2 Gm/100 Ml IV Q24H EDIE Protocol Sodium Chloride 100 mls @ 999 mls/hr 09/20/20 10:06 Nacl 0.9% IV VIRGIL PRN Hypotension Metoprolol Tartrate 5 mg 09/19/20 19:06 Metoprolol Tartrate 5 Mg/5 Ml Inj IV Q8HR PRN HR > 135 Minute Ondansetron HCl 4 mg 09/17/20 13:52 Ondansetron 4 Mg/2 Ml Inj IV Q8H PRN Nausea And Vomiting Sodium Chloride 10 ml 09/17/20 22:00 09/20/20 09:58 Sodium Chloride 0.9% 10 Ml Flush Syringe IV 10 ml BID EDIE Administration Sodium Chloride 10 ml 09/17/20 13:52 Sodium Chloride 0.9% 10 Ml Flush Syringe IV PRN PRN LINE FLUSH Nutrition/Malnutrition Assess - Dietary Evaluation Nutrition/Malnutrition Findings: Nutrition Notes Start: 09/18/20 11:30 Freq: Status: Active Protocol: Document 09/18/20 11:30 CW (Rec: 09/18/20 11:36 CW [email or web address]) Nutrition Notes Need for Assessment generated from: MD Order Initial or Follow up Brief Note Current Diagnosis Acute Kidney Injury,Heart Failure Other Pertinent Diagnosis Covid 19 PUI, UT, AMS Current Diet Cardiac Consistent Carbohydrate (starting at dinner) Labs/Tests BUN 70 Cr 4.7 Pertinent Medications Lasix 5L of NS Height 6 ft 1 in Weight 72.3 kg [place] Body Weight (kg) 83.63 BMI 21.0 Weight change and time frame weight change per last visit likely d/t diuertics usage (87.5kg on 09/15/2020) Weight Status Appropriate Subjective/Other Information RN screen for MST. Pt did not answer phone x2. Pt with AMS. Unable to provide nutritional hx. Current diet to be initiated at dinner per order in chart. Will monitor intakes . Burn Absent Trauma Absent GI Symptoms Other Current % PO Negligible Minimum of two criteria No physical signs of malnutrition Nutrition Intervention Change Diet Order: Add renal modifications to diet Goal #1 Meet at least 75% of kcal and protein needs via PO Anticipated Discharge Needs: Cardiac Consistent Carbohydrate Diet Follow-Up By: 09/20/20 Additional Comments F/U for intakes
--- NOTE | 2020-09-20 11:36 | Progress Note ---
Assessment and Plan Cultures: 09/18/2020 blood culture: GNR Assessment: 70-year-old male with history of HIV infection (unknown CD4/VL/ART compliance), hypertension, atrial fibrillation on Xarelto, initially admitted on 09/15/2020 RVR A. fib, LOLI, left AMA, came back to the ED on 09/17/2020 secondary to worsening shortness of breath for 3 days: #Severe sepsis with septic shock: likely secondary to gram-negative bacilli bacteremia ?from UTI v/s cholecystitis. #Gram-negative bacilli bacteremia: Likely from UTI. RUQ US did show a large GB stone. Labs with elevated LFTs and bilirubin. #UTI: Urinalysis with 71 WBCs and moderate leukocyte esterase. Urine culture pending. #RVR A. fib: cardiology on board #OLLI: Likely due to sepsis. Planned for HD. #Acute respiratory hypoxic failure: Likely secondary to volume overload. BNP 18K. The possibility of COVID-19 pneumonia is in the differential however less likely. #HIV: listed meds are Descovy + tivicay. Status unknown. #Acute encephalopathy: ?multifactorial. Recommendations: -Continue renally dosed cefepime -Flagyl added -Follow-up HIV RNA PCR, viral load -Follow-up COVID-19 PCR -HIDA scan and general surgery consult ordered, ? Cholecystitis -Resume renally dosed antiretroviral therapy: TDF + FTC + DTG Pat Rae MD, FACP [facility] ([facility]) O: [phone] F: [phone] Subjective Date of service: 09/20/20 Principal diagnosis: Ac hypoxemic resp failure; A-fib RVR; AE-CHF; LOLI; Septic shock; UTI Interval history: No fever. Drowsy. Discussed with RN. Objective - Exam Narrative Exam: Physical Exam: Constitutional: Drowsy Head, Ears, Nose: Normocephalic, atraumatic. External ears, nose normal Eyes: Conjunctivae/corneas clear. No icterus. No ptosis. Neck: Supple, no meningeal signs Oral: Limited Cardiovascular: S1, S2 normal. Respiratory: Good air entry, clear to auscultation bilaterally GI: Mild tenderness present. Bowel sounds present. Musculoskeletal: No pedal edema, no cyanosis. Skin: No rash or abscess Hem/Lymphatic: No palpable cervical or supraclavicular nodes. No lymphangitis Psych: No agitation Neurological: Drowsy, not following commands. Limited exam. - Constitutional Vitals: Vital Signs Temp Pulse Resp BP Pulse Ox 97.6 F 132 H 22 119/83 98 09/20/20 08:00 09/20/20 10:00 09/20/20 10:00 09/20/20 10:00 09/20/20 10:00 Temperature -Last 24 Hours Temperature 97.6 F Temperature 98.8 F Temperature 98.9 F Temperature 98.7 F Temperature 98.1 F Temperature 98.2 F - Labs CBC & Chem 7: 09/20/20 04:00 09/20/20 04:00 Labs: Abnormal lab results 09/19/20 09/20/20 09/20/20 Range/Units 23:37 04:00 04:00 RBC 3.43 L (3.65-5.03) M/mm3 Hgb 11.1 L (11.8-15.2) gm/dl Hct 32.2 L (35.5-45.6) % Plt Count 131 L (140-440) K/mm3 Seg Neuts % (Manual) 88.0 H (40.0-70.0) % Lymphocytes % (Manual) 3.0 L (13.4-35.0) % Monocytes % (Manual) 9.0 H (0.0-7.3) % Seg Neutrophils # Man 8.2 H (1.8-7.7) K/mm3 Lymphocytes # (Manual) 0.3 L (1.2-5.4) K/mm3 Heparin Anti-Xa Level 0.10 L (0.3-0.7) U.I./ml Carbon Dioxide (22-30) mmol/L BUN (9-20) mg/dL Creatinine (0.8-1.3) mg/dL Glucose (75-100) mg/dL POC Glucose 135 H (70-105) mg/dL 09/20/20 09/20/20 Range/Units 04:00 05:37 RBC (3.65-5.03) M/mm3 Hgb (11.8-15.2) gm/dl Hct (35.5-45.6) % Plt Count (140-440) K/mm3 Seg Neuts % (Manual) (40.0-70.0) % Lymphocytes % (Manual) (13.4-35.0) % Monocytes % (Manual) (0.0-7.3) % Seg Neutrophils # Man (1.8-7.7) K/mm3 Lymphocytes # (Manual) (1.2-5.4) K/mm3 Heparin Anti-Xa Level (0.3-0.7) U.I./ml Carbon Dioxide 16 L (22-30) mmol/L BUN 119 H (9-20) mg/dL Creatinine 6.2 H (0.8-1.3) mg/dL Glucose 136 H (75-100) mg/dL POC Glucose 137 H (70-105) mg/dL
[2020-09-20] MEDS ORDERED: TENOFOVIR 300 MG TAB PO SCH (12:00)
--- NOTE | 2020-09-20 12:15 | Consultation ---
History of Present Illness Consult date: 09/20/20 Chief complaint: Sepsis/cholelithiasis - History of present illness History of present illness: 70 yo male admitted with sepsis and found to have a large gallstone on RUQ US. Pt is not communicative. Past History Past Medical History: atrial fib, HIV/AIDS, hypertension Past Surgical History: hernia repair Social history: single. denies: smoking, alcohol abuse Family history: hypertension Medications and Allergies Allergies Allergy/AdvReac Type Severity Reaction Status Date / Time No Known Allergies Allergy Unverified 09/15/20 06:37 Home Medications Medication Instructions Recorded Confirmed Last Taken Type AtorvaSTATin [Lipitor] 20 mg PO QHS 09/18/20 09/18/20 Unknown History Dolutegravir [Tivicay] 50 mg PO DAILY 09/18/20 09/18/20 Unknown History Emtricitabine/Tenofov Alafenam 1 tab PO DAILY 09/18/20 09/18/20 Unknown History [Descovy 200-25 mg (Nf)] Rivaroxaban [Xarelto] 15 mg PO QDAY 09/18/20 09/18/20 Unknown History allopurinoL [Zyloprim] 300 mg PO QDAY 09/18/20 09/18/20 Unknown History carvediloL [Coreg] 25 mg PO BID 09/18/20 09/18/20 Unknown History lisinopriL [Lisinopril] 20 mg PO DAILY 09/18/20 09/18/20 Unknown History Active Meds: Active Medications Acetaminophen (Acetaminophen 325 Mg Tab) 650 mg PO Q4H PRN PRN Reason: Pain MILD(1-3)/Fever >100.5/ANGEL Albuterol (Albuterol 2.5 Mg/3 Ml Nebu) 2.5 mg IH Q4HRT PRN PRN Reason: Shortness Of Breath Last Admin: 09/17/20 20:47 Dose: 2.5 mg Documented by: Emtricitabine (Emtricitabine 200 Mg Cap) 200 mg PO Q96H EDIE Famotidine (Famotidine 20 Mg/2 Ml Inj) 20 mg IV QDAY EDIE Last Admin: 09/20/20 09:58 Dose: 20 mg Documented by: Heparin Sodium (Porcine) (Heparin 10,000 Units/10 Ml Vial) 3,000 unit IV VIRGIL PRN PRN Reason: hemodialysis Hydromorphone HCl (Hydromorphone 1 Mg/1 Ml Inj) 0.25 mg IV ONCE PRN PRN Reason: Pain , Severe (7-10) Last Admin: 09/17/20 15:42 Dose: 0.25 mg Documented by: Amiodarone HCl 900 mg/ (Dextrose) 500 mls @ 33.333 mls/hr IV DIRECT EDIE; Protocol Last Admin: 09/20/20 09:58 Dose: 0.5 mg/min, 16.667 mls/hr Documented by: Norepinephrine (Levophed Drip 4 Mg/Ns 250 Ml) 4 mg in 250 mls @ 7.5 mls/hr IV TITR DEIE; Protocol Last Admin: 09/20/20 11:27 Dose: 10 mcg/min, 37.5 mls/hr Documented by: Cefepime HCl (Cefepime/Ns 2 Gm/100 Ml) 2 gm in 100 mls @ 200 mls/hr IV Q24H EDIE; Protocol Sodium Chloride (Nacl 0.9%) 100 mls @ 999 mls/hr IV VIRGIL PRN PRN Reason: Hypotension Metronidazole (Flagyl 500 Mg/100 Ml) 500 mg in 100 mls @ 100 mls/hr IV Q8H EDIE; Protocol Metoprolol Tartrate (Metoprolol Tartrate 5 Mg/5 Ml Inj) 5 mg IV Q8HR PRN PRN Reason: HR > 135 Minute Ondansetron HCl (Ondansetron 4 Mg/2 Ml Inj) 4 mg IV Q8H PRN PRN Reason: Nausea And Vomiting Sodium Chloride (Sodium Chloride 0.9% 10 Ml Flush Syringe) 10 ml IV BID [facility] Last Admin: 09/20/20 09:58 Dose: 10 ml Documented by: Sodium Chloride (Sodium Chloride 0.9% 10 Ml Flush Syringe) 10 ml IV PRN PRN PRN Reason: LINE FLUSH Tenofovir Disoproxil Fumarate (Tenofovir 300 Mg Tab) 300 mg PO Mo EDIE Review of Systems ROS unobtainable: due to mental status Exam Vital Signs Temp Pulse Resp BP Pulse Ox 98.3 F 74 35 H 78/43 95 09/17/20 09:47 09/17/20 09:47 09/17/20 09:47 09/17/20 09:47 09/17/20 09:47 - General physical appearance Positive: well developed, well nourished, no distress - Eyes Positive: PERRL, normal occular movement - ENT Positive: normal pinna, normal nares, normal mucosa, no hearing loss, no congestion - Neck Positive: no masses, no bruits, trachea midline, no venous distension - Respiratory Positive: normal expansion, normal respiratory effort, clear to auscultation - Cardiovascular Rhythm: regular Heart Sounds: Present: S1 & S2. Absent: rub, click - Extremities Extremities: no ischemia, pulses symmetrical, No edema - Breasts Breasts: normal, no mass, no skin changes - Abdomen Abdomen: Present: soft, bowel sounds normal, other (No umbilicus secondary to prior hernia repair.). Absent: tender, distended Hernia: none - Genitourinary Male Genitourinary: normal Female Genitourinary: normal - Integumentary no rash, no growths, no abnormal pigmentation - Neurologic Neurologic: alert and oriented to time, place and person, motor strength and sensation are grossly intact - Musculoskeletal normal gait, normal posture - Psychiatric Psychiatric: appropriate mood/affect, intact judgment & insight Results - Labs 09/20/20 04:00 09/20/20 04:00 Abnormal lab results 09/19/20 09/20/20 09/20/20 Range/Units 23:37 04:00 04:00 RBC 3.43 L (3.65-5.03) M/mm3 Hgb 11.1 L (11.8-15.2) gm/dl Hct 32.2 L (35.5-45.6) % Plt Count 131 L (140-440) K/mm3 Seg Neuts % (Manual) 88.0 H (40.0-70.0) % Lymphocytes % (Manual) 3.0 L (13.4-35.0) % Monocytes % (Manual) 9.0 H (0.0-7.3) % Seg Neutrophils # Man 8.2 H (1.8-7.7) K/mm3 Lymphocytes # (Manual) 0.3 L (1.2-5.4) K/mm3 Heparin Anti-Xa Level 0.10 L (0.3-0.7) U.I./ml Carbon Dioxide (22-30) mmol/L BUN (9-20) mg/dL Creatinine (0.8-1.3) mg/dL Glucose (75-100) mg/dL POC Glucose 135 H (70-105) mg/dL 09/20/20 09/20/20 Range/Units 04:00 05:37 RBC (3.65-5.03) M/mm3 Hgb (11.8-15.2) gm/dl Hct (35.5-45.6) % Plt Count (140-440) K/mm3 Seg Neuts % (Manual) (40.0-70.0) % Lymphocytes % (Manual) (13.4-35.0) % Monocytes % (Manual) (0.0-7.3) % Seg Neutrophils # Man (1.8-7.7) K/mm3 Lymphocytes # (Manual) (1.2-5.4) K/mm3 Heparin Anti-Xa Level (0.3-0.7) U.I./ml Carbon Dioxide 16 L (22-30) mmol/L BUN 119 H (9-20) mg/dL Creatinine 6.2 H (0.8-1.3) mg/dL Glucose 136 H (75-100) mg/dL POC Glucose 137 H (70-105) mg/dL Diabetes panel 09/20/20 Range/Units 04:00 Sodium 138 (137-145) mmol/L Potassium 4.4 (3.6-5.0) mmol/L Chloride 105.5 (98-107) mmol/L Carbon Dioxide 16 L (22-30) mmol/L BUN 119 H (9-20) mg/dL Creatinine 6.2 H (0.8-1.3) mg/dL Glucose 136 H (75-100) mg/dL Calcium 8.7 (8.4-10.2) mg/dL Calcium panel 09/20/20 Range/Units 04:00 Calcium 8.7 (8.4-10.2) mg/dL Pituitary panel 09/20/20 Range/Units 04:00 Sodium 138 (137-145) mmol/L Potassium 4.4 (3.6-5.0) mmol/L Chloride 105.5 (98-107) mmol/L Carbon Dioxide 16 L (22-30) mmol/L BUN 119 H (9-20) mg/dL Creatinine 6.2 H (0.8-1.3) mg/dL Glucose 136 H (75-100) mg/dL Calcium 8.7 (8.4-10.2) mg/dL Adrenal panel 09/20/20 Range/Units 04:00 Sodium 138 (137-145) mmol/L Potassium 4.4 (3.6-5.0) mmol/L Chloride 105.5 (98-107) mmol/L Carbon Dioxide 16 L (22-30) mmol/L BUN 119 H (9-20) mg/dL Creatinine 6.2 H (0.8-1.3) mg/dL Glucose 136 H (75-100) mg/dL Calcium 8.7 (8.4-10.2) mg/dL - Imaging US - abdomen: report reviewed Assessment and Plan - Patient Problems (1) Cholelithiasis Current Visit: Yes Status: Acute Plan to address problem: 1) Agree with Hida scan 2) May need CT abd/pelvis 3) NPO for now
--- NOTE | 2020-09-20 12:48 | XRay Report ---
Abdomen single view INDICATION: Abdominal pain IMPRESSION: The esophagogastric tube terminates within the upper stomach. Signer Name: Crow Osborne MD Signed: 09/20/2020 12:39 PM Workstation Name: [id number]
--- NOTE | 2020-09-20 12:57 | Progress Note ---
Assessment and Plan Acute hypoxemic respiratory failure. Atrial fibrillation with rapid ventricular response. Gram negative bacteremia Acute congestive heart failure exacerbation. Acute on chronic kidney injury. Anemia that is microcytic. Coagulopathy appears to be acquired. Respiratory alkalosis. Mild metabolic acidosis. Possible severe sepsis with shock due to a urinary tract infection. Urinary tract infection - to begin dialysis - bolus 1 Liter IVNS then run @ 250 mls/hr X 1 liter - NGT placed and yo begin enteral nutrition - continue AB's per ID recommendations - continue care as below otherwise; - wean vasopressors for target MAP > 65 mmHg - follow COVID-19 test result - continue to wean supplemental oxygen for target O2 sat's > 92% acutely - Aspiration precautions - continue bronchodilators with pulmonary hygiene per RT - continue accuchecks with glycemic control per SSI (While critically ill target blood glucose of 140-180 mg/dL; avoid hypoglycemia) - avoid nephrotoxins, renally dose all medications - continue to avoid benzodiazepine's, reduce the possibility of delirium - complete AB's per ID rec's (on Cefepime) - prn analgesia per pain score - Maintenance of sleep-wake cycle, avoid delirium - G.I. & VTE prophylaxis - PT/OT/ROM exercises - continue mobility protocols for pressure ulcer prophylaxis - Monitor hemodynamics closely - continue other care per attending / other consultants - discharge planning ongoing concurrently COVID SPECIFIC INTERVENTIONS - Remdesivir as per ID/Pulmonary developed protocols - consider systemic steroids for severe COVID-19 infection empirically - follow repeat COVID tests results - zinc and vitamin C supplementation - Monitor inflammatory markers per facility protocol - ferritin, Ddimer, CRP - therapeutic anticoagulation per system Protocol based on d-dimer and clinical considerations - Continue contact and airborne isolation .... Re-evaluate in am & prn CONDITION: CRITICAL PROGNOSIS: GUARDED CODE STATUS: FULL CODE The high probability of a clinically significant, sudden or life-threatening deterioration of the [respiratory, cardiovascular & neurologic] system(s) required my full and direct attention, intervention and personal management. The aggregate critical care time was [60] minutes without overlap. Time includes spent on; [x] Data Review and interpretation [x] Patient assessment and monitoring of vital signs [x] Documentation [x] Medication orders and management Subjective Date of service: 09/20/20 Principal diagnosis: Ac hypoxemic resp failure; A-fib RVR; AE-CHF; LOLI; Septic shock; UTI Interval history: Patient is seen today for: Acute hypoxemic respiratory failure; A-fib with RVR; AE-CHF; LOLI on CKD; Severe sepsis with shock; UTI Seen and examined at bedside; 24hour events reviewed; nursing and respiratory care staff consulted; no adverse overnight events reported to me; resting peacefully in bed; azotemia is worse and he is to begin dialysis; no emesis or overt aspiration; remains on Levophed but requiring increased doses; no gross bleeding Objective Vital Signs - 12hr 09/20/20 09/20/20 09/20/20 01:00 01:16 01:30 Temperature Pulse Rate 137 H 144 H 134 H Pulse Rate [ From Monitor] Respiratory 25 H 22 26 H Rate Blood Pressure 125/81 102/74 102/74 O2 Sat by Pulse 100 99 100 Oximetry 09/20/20 09/20/20 09/20/20 01:46 02:00 02:16 Temperature Pulse Rate 129 H 138 H 120 H Pulse Rate [ From Monitor] Respiratory 24 24 25 H Rate Blood Pressure 102/74 118/65 O2 Sat by Pulse 100 100 100 Oximetry 09/20/20 09/20/20 09/20/20 02:30 02:46 03:00 Temperature Pulse Rate 131 H 139 H 133 H Pulse Rate [ From Monitor] Respiratory 24 25 H 26 H Rate Blood Pressure O2 Sat by Pulse 100 100 100 Oximetry 09/20/20 09/20/20 09/20/20 03:16 03:30 03:37 Temperature 98.8 F Pulse Rate 109 H 131 H Pulse Rate [ From Monitor] Respiratory 28 H Rate Blood Pressure 89/64 O2 Sat by Pulse 96 98 Oximetry 09/20/20 09/20/20 09/20/20 03:45 03:46 03:53 Temperature Pulse Rate 123 H 140 H 116 H Pulse Rate [ From Monitor] Respiratory 24 20 Rate Blood Pressure 107/91 90/58 O2 Sat by Pulse 99 99 Oximetry 09/20/20 09/20/20 09/20/20 04:00 04:15 04:30 Temperature Pulse Rate 119 H 124 H 138 H Pulse Rate [ From Monitor] Respiratory 20 23 22 Rate Blood Pressure 120/86 117/79 O2 Sat by Pulse 100 100 100 Oximetry 09/20/20 09/20/20 09/20/20 04:45 05:00 05:15 Temperature Pulse Rate 122 H 130 H 128 H Pulse Rate [ From Monitor] Respiratory 23 22 22 Rate Blood Pressure 110/81 113/89 O2 Sat by Pulse 100 100 100 Oximetry 09/20/20 09/20/20 09/20/20 05:30 05:45 06:00 Temperature Pulse Rate 130 H 130 H 131 H Pulse Rate [ From Monitor] Respiratory 22 21 20 Rate Blood Pressure 123/81 132/81 118/78 O2 Sat by Pulse 100 100 100 Oximetry 09/20/20 09/20/20 09/20/20 06:16 06:30 06:45 Temperature Pulse Rate 128 H 134 H 145 H Pulse Rate [ From Monitor] Respiratory 23 26 H 21 Rate Blood Pressure 122/82 125/77 123/85 O2 Sat by Pulse 100 100 100 Oximetry 09/20/20 09/20/20 09/20/20 07:00 07:16 07:30 Temperature Pulse Rate 126 H 139 H 138 H Pulse Rate [ From Monitor] Respiratory 20 20 23 Rate Blood Pressure 116/89 121/81 121/81 O2 Sat by Pulse 100 100 100 Oximetry 09/20/20 09/20/20 09/20/20 07:46 08:00 08:06 Temperature 97.6 F Pulse Rate 134 H 129 H 125 H Pulse Rate [ From Monitor] Respiratory 21 21 Rate Blood Pressure 122/88 123/87 O2 Sat by Pulse 100 100 Oximetry 09/20/20 09/20/20 09/20/20 08:15 08:30 08:45 Temperature Pulse Rate 127 H 127 H 127 H Pulse Rate [ From Monitor] Respiratory 18 19 19 Rate Blood Pressure 118/86 106/75 123/75 O2 Sat by Pulse 100 100 100 Oximetry 09/20/20 09/20/20 09/20/20 08:51 09:00 09:15 Temperature Pulse Rate 135 H 127 H Pulse Rate [ 127 H From Monitor] Respiratory 21 20 20 Rate Blood Pressure 114/79 115/81 O2 Sat by Pulse 100 100 100 Oximetry 09/20/20 09/20/20 09/20/20 09:30 09:45 09:49 Temperature Pulse Rate 134 H 132 H Pulse Rate [ From Monitor] Respiratory 21 18 Rate Blood Pressure 125/89 119/83 O2 Sat by Pulse 100 100 98 Oximetry 09/20/20 09/20/20 09/20/20 10:00 10:15 10:30 Temperature Pulse Rate 132 H 123 H 124 H Pulse Rate [ From Monitor] Respiratory 22 20 24 Rate Blood Pressure 119/83 104/63 99/66 O2 Sat by Pulse 98 98 95 Oximetry 09/20/20 09/20/20 09/20/20 10:45 11:00 11:16 Temperature Pulse Rate 119 H 106 H 97 H Pulse Rate [ From Monitor] Respiratory 26 H 21 19 Rate Blood Pressure 96/73 96/73 68/46 O2 Sat by Pulse 96 97 95 Oximetry 09/20/20 09/20/20 09/20/20 11:30 11:45 12:00 Temperature 97.8 F Pulse Rate 128 H 123 H 137 H Pulse Rate [ From Monitor] Respiratory 18 21 21 Rate Blood Pressure 100/64 100/69 100/63 O2 Sat by Pulse 98 96 98 Oximetry 09/20/20 09/20/20 12:15 12:30 Temperature Pulse Rate 124 H 133 H Pulse Rate [ From Monitor] Respiratory 21 21 Rate Blood Pressure 91/70 100/62 O2 Sat by Pulse 99 97 Oximetry Constitutional: appears uncomfortable, other (elderly male with mildly increased respiratory effort at rest) Eyes: non-icteric ENT: oropharynx moist Neck: supple, no lymphadenopathy, no JVD Effort: mildly labored Ascultation: Bilateral: rhonchi Percussion: Bilateral: not dull Cardiovascular: irregular rhythm Gastrointestinal: normoactive bowel sounds, soft, non-tender, non-distended Integumentary: normal Extremities: no cyanosis, no edema, pulses normal, no ischemia or petechiae Neurologic: non-focal exam (grossly), pupils equal and round, CN II-XII normal, other (delirious) Psychiatric: other (delirious) CBC and BMP: 09/20/20 04:00 09/20/20 04:00 ABG, PT/INR, D-dimer: ABG ABG pH 7.508 (7.320-7.450) H 09/17/20 10:28 POC ABG pCO2 22.8 mmHg (32.0-48.0) L 09/17/20 10:28 POC ABG pO2 66.8 mmHg (83-108) L 09/17/20 10:28 POC ABG HCO3 17.7 09/17/20 10:28 ABG O2 Saturation 93.4 (0-100) 09/17/20 10:28 PT/INR, D-dimer PT 20.3 Sec. (12.2-14.9) H 09/18/20 15:07 INR 1.73 (0.87-1.13) H 09/18/20 15:07 Abnormal lab findings: Abnormal Labs 09/17/20 09/17/20 09/17/20 10:28 10:47 10:47 WBC 11.1 H RBC 3.44 L Hgb 11.2 L Hct 32.8 L MCV 95 H MCH MCHC Plt Count Seg Neuts % (Manual) Lymphocytes % (Manual) 4.0 L Monocytes % (Manual) Seg Neutrophils # Man 10.7 H Lymphocytes # (Manual) 0.4 L PT 32.9 H INR 3.16 H APTT 51.1 H Heparin Anti-Xa Level ABG pH 7.508 H POC ABG pCO2 22.8 L POC ABG pO2 66.8 L ABG Oxyhemoglobin 92.7 L ABG Sodium 127.4 L ABG Potassium 4.7 H ABG Glucose 121 H Carboxyhemoglobin 0.4 L Sodium Chloride Carbon Dioxide BUN Creatinine Glucose POC Glucose Calcium Phosphorus Total Bilirubin AST ALT Alkaline Phosphatase Total Creatine Kinase Troponin T NT-Pro-B Natriuret Pep Total Protein Albumin Cholesterol LDL Cholesterol Direct HDL Cholesterol PTH Intact Arterial Blood Glucose 121 H Urine WBC (Auto) Urine Creatinine 09/17/20 09/17/20 09/17/20 10:47 10:47 13:54 WBC RBC Hgb Hct MCV MCH MCHC Plt Count Seg Neuts % (Manual) Lymphocytes % (Manual) Monocytes % (Manual) Seg Neutrophils # Man Lymphocytes # (Manual) PT INR APTT Heparin Anti-Xa Level ABG pH POC ABG pCO2 POC ABG pO2 ABG Oxyhemoglobin ABG Sodium ABG Potassium ABG Glucose Carboxyhemoglobin Sodium 125 L Chloride 95.3 L Carbon Dioxide 17 L BUN 64 H Creatinine 4.6 H D Glucose 104 H POC Glucose Calcium Phosphorus Total Bilirubin AST 69 H ALT Alkaline Phosphatase Total Creatine Kinase Troponin T 0.061 H D 0.058 H NT-Pro-B Natriuret Pep 67932 H Total Protein Albumin 1.9 L Cholesterol 48 L LDL Cholesterol Direct 4 L HDL Cholesterol 9 L PTH Intact Arterial Blood Glucose Urine WBC (Auto) Urine Creatinine 09/17/20 09/17/20 09/17/20 16:36 17:35 17:35 WBC RBC 3.25 L Hgb 10.7 L Hct 31.1 L MCV 96 H MCH 33 H MCHC Plt Count Seg Neuts % (Manual) Lymphocytes % (Manual) Monocytes % (Manual) Seg Neutrophils # Man Lymphocytes # (Manual) PT 31.9 H INR 3.04 H APTT 50.9 H Heparin Anti-Xa Level ABG pH POC ABG pCO2 POC ABG pO2 ABG Oxyhemoglobin ABG Sodium ABG Potassium ABG Glucose Carboxyhemoglobin Sodium Chloride Carbon Dioxide BUN Creatinine Glucose POC Glucose Calcium Phosphorus Total Bilirubin AST ALT Alkaline Phosphatase Total Creatine Kinase Troponin T 0.057 H NT-Pro-B Natriuret Pep Total Protein Albumin Cholesterol LDL Cholesterol Direct HDL Cholesterol PTH Intact Arterial Blood Glucose Urine WBC (Auto) Urine Creatinine 09/17/20 09/18/20 09/18/20 17:35 03:19 03:19 WBC RBC 3.32 L Hgb 10.9 L Hct 32.0 L MCV 96 H MCH 33 H MCHC Plt Count 138 L Seg Neuts % (Manual) 95.0 H Lymphocytes % (Manual) 3.0 L Monocytes % (Manual) Seg Neutrophils # Man 8.1 H Lymphocytes # (Manual) 0.3 L PT INR APTT Heparin Anti-Xa Level ABG pH POC ABG pCO2 POC ABG pO2 ABG Oxyhemoglobin ABG Sodium ABG Potassium ABG Glucose Carboxyhemoglobin Sodium Chloride Carbon Dioxide 16 L BUN 70 H Creatinine 4.6 H 4.7 H Glucose 104 H POC Glucose Calcium 8.2 L Phosphorus Total Bilirubin 1.60 H AST 128 H ALT 67 H Alkaline Phosphatase Total Creatine Kinase Troponin T NT-Pro-B Natriuret Pep Total Protein 5.2 L D Albumin 2.5 L Cholesterol LDL Cholesterol Direct HDL Cholesterol PTH Intact Arterial Blood Glucose Urine WBC (Auto) Urine Creatinine 09/18/20 09/18/20 09/18/20 12:00 12:00 15:07 WBC RBC Hgb 10.7 L Hct 31.3 L MCV MCH MCHC Plt Count Seg Neuts % (Manual) Lymphocytes % (Manual) Monocytes % (Manual) Seg Neutrophils # Man Lymphocytes # (Manual) PT INR APTT Heparin Anti-Xa Level ABG pH POC ABG pCO2 POC ABG pO2 ABG Oxyhemoglobin ABG Sodium ABG Potassium ABG Glucose Carboxyhemoglobin Sodium Chloride Carbon Dioxide BUN Creatinine Glucose POC Glucose Calcium Phosphorus Total Bilirubin AST ALT Alkaline Phosphatase Total Creatine Kinase Troponin T NT-Pro-B Natriuret Pep Total Protein Albumin Cholesterol LDL Cholesterol Direct HDL Cholesterol PTH Intact Arterial Blood Glucose Urine WBC (Auto) 71.0 H Urine Creatinine 61.0 H 09/18/20 09/18/20 09/19/20 15:07 18:33 03:30 WBC RBC 3.29 L Hgb 10.9 L Hct 30.9 L MCV MCH 33 H MCHC 35 H Plt Count Seg Neuts % (Manual) Lymphocytes % (Manual) Monocytes % (Manual) Seg Neutrophils # Man Lymphocytes # (Manual) PT 20.3 H INR 1.73 H APTT 40.8 H Heparin Anti-Xa Level 1.09 H ABG pH POC ABG pCO2 POC ABG pO2 ABG Oxyhemoglobin ABG Sodium ABG Potassium ABG Glucose Carboxyhemoglobin Sodium Chloride Carbon Dioxide BUN Creatinine Glucose POC Glucose Calcium Phosphorus Total Bilirubin AST ALT Alkaline Phosphatase Total Creatine Kinase Troponin T NT-Pro-B Natriuret Pep Total Protein Albumin Cholesterol LDL Cholesterol Direct HDL Cholesterol PTH Intact Arterial Blood Glucose Urine WBC (Auto) Urine Creatinine 09/19/20 09/19/20 09/19/20 03:30 03:30 06:35 WBC RBC Hgb Hct MCV MCH MCHC Plt Count Seg Neuts % (Manual) Lymphocytes % (Manual) Monocytes % (Manual) Seg Neutrophils # Man Lymphocytes # (Manual) PT INR APTT Heparin Anti-Xa Level ABG pH POC ABG pCO2 POC ABG pO2 ABG Oxyhemoglobin ABG Sodium ABG Potassium ABG Glucose Carboxyhemoglobin Sodium 133 L Chloride Carbon Dioxide 17 L BUN 94 H Creatinine 5.0 H Glucose 120 H POC Glucose 123 H Calcium Phosphorus 6.30 H Total Bilirubin 2.40 H AST 163 H ALT 109 H Alkaline Phosphatase 160 H Total Creatine Kinase 20 L Troponin T NT-Pro-B Natriuret Pep Total Protein 6.2 L Albumin 2.0 L Cholesterol LDL Cholesterol Direct HDL Cholesterol PTH Intact 161.4 H Arterial Blood Glucose Urine WBC (Auto) Urine Creatinine 09/19/20 09/20/20 09/20/20 23:37 04:00 04:00 WBC RBC 3.43 L Hgb 11.1 L Hct 32.2 L MCV MCH MCHC Plt Count 131 L Seg Neuts % (Manual) 88.0 H Lymphocytes % (Manual) 3.0 L Monocytes % (Manual) 9.0 H Seg Neutrophils # Man 8.2 H Lymphocytes # (Manual) 0.3 L PT INR APTT Heparin Anti-Xa Level 0.10 L ABG pH POC ABG pCO2 POC ABG pO2 ABG Oxyhemoglobin ABG Sodium ABG Potassium ABG Glucose Carboxyhemoglobin Sodium Chloride Carbon Dioxide BUN Creatinine Glucose POC Glucose 135 H Calcium Phosphorus Total Bilirubin AST ALT Alkaline Phosphatase Total Creatine Kinase Troponin T NT-Pro-B Natriuret Pep Total Protein Albumin Cholesterol LDL Cholesterol Direct HDL Cholesterol PTH Intact Arterial Blood Glucose Urine WBC (Auto) Urine Creatinine 09/20/20 09/20/20 09/20/20 04:00 05:37 11:20 WBC RBC Hgb Hct MCV MCH MCHC Plt Count Seg Neuts % (Manual) Lymphocytes % (Manual) Monocytes % (Manual) Seg Neutrophils # Man Lymphocytes # (Manual) PT INR APTT Heparin Anti-Xa Level ABG pH POC ABG pCO2 POC ABG pO2 ABG Oxyhemoglobin ABG Sodium ABG Potassium ABG Glucose Carboxyhemoglobin Sodium Chloride Carbon Dioxide 16 L BUN 119 H Creatinine 6.2 H Glucose 136 H POC Glucose 137 H 108 H Calcium Phosphorus Total Bilirubin AST ALT Alkaline Phosphatase Total Creatine Kinase Troponin T NT-Pro-B Natriuret Pep Total Protein Albumin Cholesterol LDL Cholesterol Direct HDL Cholesterol PTH Intact Arterial Blood Glucose Urine WBC (Auto) Urine Creatinine Chest x-ray: image reviewed (R. SCVL trialysis catheter in good position) Allied health notes reviewed: nursing
[2020-09-20] MEDS ORDERED: LIPASE 10,500/PROTEASE 25,000/AMYLASE 43,750 (UNITS) DR CAP FEEDTUBE PRN (13:10)
[2020-09-20] MEDS ORDERED: SODIUM BICARBONATE 325 MG TAB FEEDTUBE PRN (13:10)
[2020-09-20] MEDS ORDERED: SIMPLE SYRUP 15 ML FEEDTUBE PRN ×2 (13:10)
[2020-09-20] MEDS ORDERED: SODIUM CHLORIDE 0.9% 1000 ML 1,000 ML ONE (14:04)
[2020-09-20] MEDS ORDERED: SODIUM CHLORIDE 0.9% 1000 ML 1,000 ML IV ONE (14:30)
[2020-09-20] MEDS: HYDROmorphone 1 MG/1 ML INJ IV PRN ×2 (14:54→22:24)
[2020-09-20] MEDS ORDERED: CEFEPIME/NS 2 GM/100 ML 2 GM/100 ML BAG IV SCH (15:00)
[2020-09-20] MEDS: metroNIDAZOLE/NS 500 MG/100 ML 500 MG/100 ML BAG IV SCH ×2 (15:17→20:51)
--- NOTE | 2020-09-20 15:25 | Progress Note ---
Assessment and Plan Telemetry reviewed A. fib flutter 120s no events A. fib with RVR Continue amiodarone drip for rate control. Of note patient is unable to take p.o. medications per chart. Patient may benefit from addition of beta-ruddy for increased rate control once nature of p.o. medication problem is clarified. Patient will need anticoagulation. General surgery is consulted for large gallstone. HIDA scan is pending. No systemic AC in anticipation of possible procedure. NSTEMI Troponins are elevated, subacute and nonspecific. Continue to trend CE's Echocardiogram reviewed (09/18/2020): LVEF is 40 to 45%. LV SF is mildly decreased. Mild concentric LVH. RV SF is mildly reduced. No valvular abnormalities. LOLI with acute tubular necrosis Patient is anticipated to start dialysis. Nephrology is consulted. Await nephrology Recs. No GEMA/ARB in setting of LOIL. Avoid nephrotoxic agents. Patient unable to t earnest p.o. medication. DVT prophylaxis Heparin SQ We will follow This patient was seen in conjunction with Dr Avila who agrees with this assessment and plan of care - Patient Problems (1) AMS (altered mental status) Current Visit: Yes Status: Acute Qualifiers: Altered mental status type: somnolence Qualified Code(s): R40.0 - Somnolence (2) Acute hypoxemic respiratory failure Current Visit: Yes Status: Acute (3) Acute kidney injury (LOLI) with acute tubular necrosis (ATN) Current Visit: Yes Status: Acute (4) Atrial fibrillation with RVR Current Visit: Yes Status: Acute (5) NSTEMI (non-ST elevated myocardial infarction) Current Visit: Yes Status: Acute (6) Metabolic acidosis Current Visit: No Status: Acute (7) Systemic inflammatory response syndrome Current Visit: No Status: Acute Subjective Date of service: 09/20/20 Principal diagnosis: Ac hypoxemic resp failure; A-fib RVR; AE-CHF; LOLI; Septic shock; UTI Interval history: Patient resting comfortably in bed. No chest pain shortness of breath overnight. Communication is difficult due to patient being extremely hard of hearing and not having hearing aids. Telemetry reviewed: Sinus rhythm 75. Several episodes of PVC triplets noted overnight. Objective Last Vital Signs Temp 98.2 F 09/21/20 03:33 Pulse 107 H 09/21/20 08:30 Resp 13 09/21/20 08:30 BP 144/123 09/21/20 08:30 Pulse Ox 99 09/21/20 08:30 - Physical Examination General: Other HEENT: Positive: PERRL Neck: Positive: neck supple Neuro: Positive: Other Abdomen: Positive: Soft Extremities: Present: normal. Absent: edema - Labs and Meds CBC 09/20/20 Range/Units 04:00 WBC 9.3 (4.5-11.0) K/mm3 RBC 3.43 L (3.65-5.03) M/mm3 Hgb 11.1 L (11.8-15.2) gm/dl Hct 32.2 L (35.5-45.6) % Plt Count 131 L (140-440) K/mm3 Comprehensive Metabolic Panel 09/20/20 Range/Units 04:00 Sodium 138 (137-145) mmol/L Potassium 4.4 (3.6-5.0) mmol/L Chloride 105.5 (98-107) mmol/L Carbon Dioxide 16 L (22-30) mmol/L BUN 119 H (9-20) mg/dL Creatinine 6.2 H (0.8-1.3) mg/dL Glucose 136 H (75-100) mg/dL Calcium 8.7 (8.4-10.2) mg/dL - Imaging and Cardiology Echo: pending - Allied health notes Allied health notes reviewed: nursing
--- NOTE | 2020-09-20 15:49 | XRay Report ---
CHEST 1 VIEW INDICATION: Vascath placement COMPARISON: 09/17/2020 FINDINGS: Support devices: Perm catheter in the superior vena cava, tip at the atriocaval junction level. Nasog astric tube tip at the gastroesophageal junction. Heart: Normal and unchanged Lungs/Pleura: No acute pulmonary or pleural findings. No pneumothorax. IMPRESSION: 1. Right subclavian line in the superior vena cava. No pneumothorax. Signer Name: Rasheed Lubin MD Signed: 09/20/2020 3:44 PM Workstation Name: [id number]
--- NOTE | 2020-09-20 16:01 | Procedure Note ---
Date of procedure: 09/20/20 Pre-op diagnosis: LOLI Post-op diagnosis: same Procedure: RIJ to R. SCVL Trialysis catheter placement (full dictation # [id number]) Please see dictated notes for full details
[2020-09-20] MEDS: VASOPRESSIN 20 UNIT in SODIUM CHLORIDE 0.9% 100 ML IV SCH (16:59)
[2020-09-20] MEDS: DEXAMETHASONE 4 MG TAB PO SCH (17:01)
[2020-09-20 17:59] LABS: C-Reactive Protein 10.6 mg/dL (0.00-1.30)
[2020-09-20 18:13] LABS: Hepatitis B Surface Antigen Non-Reactive (Negative); Hepatitis C Virus Antibody Non-Reactive (NonReactive)
[2020-09-20] MEDS: DOLUTEGRAVIR 50 MG TAB PO SCH (18:39)
[2020-09-20] MEDS: EMTRICITABINE 200 MG CAP PO SCH (18:40)
--- NOTE | 2020-09-20 19:48 | Operative Report ---
DATE OF SURGERY: 09/20/2020 PROCEDURE: Right internal jugular Vas-Cath placement that was converted intra-procedurally to the right subclavian approach as a Trialysis catheter placement. Assisted by nurse practitioner, Jessica Schwarz. INDICATIONS: Acute kidney injury, needing dialysis. Consent was informed and witnessed, obtained from the niece over the phone. COMPLICATIONS: No immediate procedural complications. DESCRIPTION OF PROCEDURE: After informed and witnessed consent as well as premedication mostly with general local anesthetic agent, the area of the right upper anterior triangle of the neck, but also the right upper anterior chest wall was sterilely prepped and draped. Ultrasound surveillance prior to the procedure had clearly shown that the patient was significantly volume depleted with respiratory motion of the right internal jugular vein. Strict sterile technique was used to include a hat, gown, mask and gloves, full barrier protection. The right IJ was initially located with a 22-gauge needle after first infiltrating lidocaine with a 25-gauge needle. A good venous looking blood return was obtained. This was also to assist a guidance even with the ultrasound as the vein was very collapsible. Provided central venous line insertion needle, the large gauge needle was then introduced, initial pass was provided by the nurse practitioner. Good venous looking blood return was obtained. Unfortunately, the wire would not thread. I then attempted a second pass, again unable to get the vein. At that point, there was a stick, probably a carotid stick. An arterial looking blood was noted. The procedure was abandoned at this point and direct pressure was put over the area of the right upper anterior triangle of the neck. I then proceeded to the subclavian approach. Again, generous local anesthetic agent was placed. The area had been prior sterilely prepped and draped. I was able to locate the subclavian vein on the first stick. There was also evidence of intravascular volume depletion. Even though, I was able to thread the wire through respiratory motions could definitely prevented aspiration of venous blood. Wire was threaded through the needle. Catheter was advanced over the wire after dilatation with the dilators provided. Good venous looking blood was obtained. Catheter was sutured into place. Postprocedure chest x-ray shows a right subclavian Trialysis catheter with the tip in the distal SVC/right atrial junction. No pneumothorax. The nurse was instructed to give the patient a dose of Dilaudid also mostly because he was moaning, but he had been moaning before the procedure just in case there was any significant pain as the local anesthetic agent wore off. TID: [id number] RECEIPT: [id number] JIGAR/IZABELLA/EMEKA
[2020-09-20] MEDS ORDERED: HEPARIN 5,000 UNIT/1 ML VIAL SUB-Q SCH (22:00)
[2020-09-20] MEDS: TENOFOVIR 300 MG TAB PO SCH (22:25)
[2020-09-20] MEDS: ASCORBIC ACID 500 MG TAB PO SCH (22:25)
[2020-09-21] MEDS ORDERED: LIDOCAINE (1%) 10 MG/1 ML VIAL 20 ML MDV ONE (00:24)
[2020-09-21] MEDS: HYDROmorphone 1 MG/1 ML INJ IV PRN (04:12)
[2020-09-21] MEDS: metroNIDAZOLE/NS 500 MG/100 ML 500 MG/100 ML BAG IV SCH ×2 (04:19→13:22)
[2020-09-21] MEDS: VASOPRESSIN 20 UNIT in SODIUM CHLORIDE 0.9% 100 ML IV SCH ×2 (04:19→15:55)
[2020-09-21 07:29] LABS: Hematocrit 33.2 % (35.5-45.6); Hemoglobin 11.3 gm/dl (11.8-15.2); Mean Corpuscular HGB Conc 34 % (32-34); Mean Corpuscular Volume 93 fl (84-94); Platelet Count 125 K/mm3 (140-440); Red Blood Count 3.56 M/mm3 (3.65-5.03); Red Cell Distribution Width 13.8 % (13.2-15.2)
[2020-09-21 07:38] LABS: INR 1.36 (0.87-1.13)
--- NOTE | 2020-09-21 08:05 | Progress Note ---
Assessment and Plan 1. Acute kidney injury: Vasomotor LOLI in the setting of shock. ATN likely. Renal US negative for hydro. Bladder scan 139 ml (09/19). Monitor renal function. Creatinine level is increasing. Renal prognosis is guarded. Avoid nephrotoxic agents. Meds dosage based on GFR. Monitor for PEDIATRIC ALLERGIST needs. Patient require hemodialysis due to significant decline in the renal function. Hemodialysis: 09/20. HD today. 2. FEN: Metabolic acidosis, improving, monitor. Monitor volume status and lytes. 3. Acute hypoxic respiratory failure: Covid test positive. Supplemental O2. 4. Acute CHF: Echocardiogram: EF 40-45%. CHF orderset / pathway. Monitor. 5. Atrial fibrillation with RVR: Amio drip. Followed by Cards. 6. Elevated troponin: Trend. Followed by Cards. 7. Coagulopathy: Trend. 8. Shock / Hypotension: Multifactorial, monitor. On Levophed. 9. Elevated Transaminases: Trend. 10. Metabolic encephalopathy: Monitor. 11. Anemia, POA: Monitor. Subjective: Patient was seen and examined at the bedside. Objective: General appearance: well-developed, appears stated age, appears emaciated, no distress, NC O2 HEENT: ATNC, L pupil dilated Neck: trachea midline Respiratory: bilateral diminished breath sounds Heart: irregular, S1S2, no murmur Gastrointestinal: soft, normoactive bowel sounds, not tender Integumentary: no obvious rash Ext: no edema Neurologic: lethargic, non-verbal, not following any command Subjective Date of service: 09/21/20 Principal diagnosis: Ac hypoxemic resp failure; A-fib RVR; AE-CHF; LOLI; Septic s hock; UTI Objective - Vital Signs Vital signs: Vital Signs - 12hr 09/20/20 09/20/20 09/20/20 20:15 20:30 20:45 Temperature Pulse Rate 122 H 133 H 131 H Pulse Rate [ From Monitor] Respiratory 16 16 16 Rate Blood Pressure 113/84 115/87 111/90 O2 Sat by Pulse 100 100 100 Oximetry 09/20/20 09/20/20 09/20/20 21:00 21:01 21:15 Temperature Pulse Rate 84 128 H 133 H Pulse Rate [ From Monitor] Respiratory 15 14 Rate Blood Pressure 117/96 117/96 132/99 O2 Sat by Pulse 100 100 Oximetry 09/20/20 09/20/2021 21:30 21:31 21:45 Temperature Pulse Rate 78 142 H 139 H Pulse Rate [ From Monitor] Respiratory 17 20 Rate Blood Pressure 95/64 95/64 95/64 O2 Sat by Pulse 100 100 Oximetry 09/20/20 09/20/20 09/20/20 21:54 22:01 22:05 Temperature 97.8 F Pulse Rate 78 92 H 79 Pulse Rate [ From Monitor] Respiratory 14 14 Rate Blood Pressure 137/101 163/112 163/112 O2 Sat by Pulse 100 Oximetry 09/20/20 09/20/20 09/20/20 22:15 22:31 22:45 Temperature Pulse Rate 116 H 105 H 103 H Pulse Rate [ From Monitor] Respiratory 12 12 12 Rate Blood Pressure 158/118 158/118 158/118 O2 Sat by Pulse 100 100 100 Oximetry 09/20/20 09/20/20 09/20/20 23:01 23:15 23:16 Temperature Pulse Rate 105 H 100 H 98 H Pulse Rate [ From Monitor] Respiratory 11 L 11 L 10 L Rate Blood Pressure 158/118 158/118 158/118 O2 Sat by Pulse 100 100 100 Oximetry 09/20/20 09/20/20 09/20/20 23:29 23:31 23:41 Temperature 98 F Pulse Rate 91 H 105 H Pulse Rate [ From Monitor] Respiratory 11 L 11 L Rate Blood Pressure 158/118 158/118 O2 Sat by Pulse 100 100 Oximetry 09/20/20 09/21/20 09/21/20 23:45 00:00 00:01 Temperature Pulse Rate 100 H 94 H 100 H Pulse Rate [ 100 H From Monitor] Respiratory 10 L 12 10 L Rate Blood Pressure 158/118 158/118 O2 Sat by Pulse 100 100 100 Oximetry 09/21/20 09/21/20 09/21/20 00:15 00:31 00:45 Temperature Pulse Rate 100 H 112 H 99 H Pulse Rate [ From Monitor] Respiratory 11 L 11 L 11 L Rate Blood Pressure 158/118 158/118 158/118 O2 Sat by Pulse 100 100 100 Oximetry 09/21/20 09/21/20 09/21/20 01:00 01:15 01:31 Temperature Pulse Rate 97 H 98 H 98 H Pulse Rate [ From Monitor] Respiratory 12 12 11 L Rate Blood Pressure 158/118 158/118 158/118 O2 Sat by Pulse 100 100 100 Oximetry 09/21/20 09/21/20 09/21/20 01:45 02:01 02:15 Temperature Pulse Rate 94 H 93 H 94 H Pulse Rate [ From Monitor] Respiratory 11 L 11 L 11 L Rate Blood Pressure 158/118 158/118 158/118 O2 Sat by Pulse 100 100 100 Oximetry 09/21/20 09/21/20 09/21/20 02:31 02:45 03:01 Temperature Pulse Rate 114 H 104 H 96 H Pulse Rate [ From Monitor] Respiratory 15 12 11 L Rate Blood Pressure 158/118 158/118 158/118 O2 Sat by Pulse 100 100 100 Oximetry 09/21/20 09/21/20 09/21/20 03:15 03:31 03:33 Temperature 98.2 F Pulse Rate 103 H 146 H Pulse Rate [ From Monitor] Respiratory 12 13 Rate Blood Pressure 158/118 158/118 O2 Sat by Pulse 100 100 Oximetry 09/21/20 09/21/20 09/21/20 03:45 04:00 04:01 Temperature Pulse Rate 150 H 148 H 138 H Pulse Rate [ 150 H From Monitor] Respiratory 13 13 12 Rate Blood Pressure 158/118 158/118 O2 Sat by Pulse 100 100 100 Oximetry 09/21/20 09/21/20 09/21/20 04:10 04:15 04:31 Temperature Pulse Rate 134 H 132 H 123 H Pulse Rate [ From Monitor] Respiratory 10 L 10 L 9 L Rate Blood Pressure 158/118 158/118 158/118 O2 Sat by Pulse 100 100 100 Oximetry 09/21/20 09/21/20 09/21/20 04:45 05:01 05:15 Temperature Pulse Rate 141 H 152 H 126 H Pulse Rate [ From Monitor] Respiratory 10 L 11 L 10 L Rate Blood Pressure 158/118 158/118 158/118 O2 Sat by Pulse 100 100 99 Oximetry 09/21/20 09/21/20 09/21/20 05:31 05:45 06:01 Temperature Pulse Rate 116 H 109 H 108 H Pulse Rate [ From Monitor] Respiratory 10 L 11 L 10 L Rate Blood Pressure 113/73 113/73 113/73 O2 Sat by Pulse 100 100 100 Oximetry 09/21/20 09/21/20 09/21/20 06:15 06:31 06:45 Temperature Pulse Rate 107 H 102 H 103 H Pulse Rate [ From Monitor] Respiratory 10 L 10 L 11 L Rate Blood Pressure 113/73 113/73 113/73 O2 Sat by Pulse 100 100 100 Oximetry 09/21/20 09/21/20 07:01 07:39 Temperature Pulse Rate 95 H Pulse Rate [ From Monitor] Respiratory 10 L Rate Blood Pressure 113/73 O2 Sat by Pulse 100 98 Oximetry - Lab 09/21/20 Unknown 09/21/20 Unknown Most recent lab results ABG pH 7.508 (7.320-7.450) H 09/17/20 10:28 ABG O2 Saturation 93.4 (0-100) 09/17/20 10:28 Calcium 8.7 mg/dL (8.4-10.2) 09/20/20 04:00 Phosphorus 6.30 mg/dL (2.5-4.5) H 09/19/20 03:30 Magnesium 1.80 mg/dL (1.7-2.3) 09/17/20 10:47 Urine Creatinine 61.0 mg/dL (0.1-20.0) H 09/18/20 12:00 Urine Sodium 62 mmol/L 09/18/20 12:00 Medications & Allergies - Medications Allergies/Adverse Reactions: Allergies No Known Allergies Allergy (Unverified 09/15/20 06:37) Home Medications: Home Medications Medication Instructions Recorded Confirmed Last Taken Type AtorvaSTATin [Lipitor] 20 mg PO QHS 09/18/20 09/18/20 Unknown History Dolutegravir [Tivicay] 50 mg PO DAILY 09/18/20 09/18/20 Unknown History Emtricitabine/Tenofov Alafenam 1 tab PO DAILY 09/18/20 09/18/20 Unknown History [Descovy 200-25 mg (Nf)] Rivaroxaban [Xarelto] 15 mg PO QDAY 09/18/20 09/18/20 Unknown History allopurinoL [Zyloprim] 300 mg PO QDAY 09/18/20 09/18/20 Unknown History carvediloL [Coreg] 25 mg PO BID 09/18/20 09/18/20 Unknown History lisinopriL [Lisinopril] 20 mg PO DAILY 09/18/20 09/18/20 Unknown History Active Medications: Generic Name Dose Route Start Last Admin Trade Name Freq PRN Reason Stop Dose Admin Acetaminophen 650 mg 09/17/20 13:52 Acetaminophen 325 Mg Tab PO Q4H PRN Pain MILD(1-3)/Fever >100.5/ANGEL Albuterol 2.5 mg 09/17/20 13:52 09/17/20 20:47 Albuterol 2.5 Mg/3 Ml Nebu IH 2.5 mg Q4HRT PRN Administration Shortness Of Breath Lipase/Protease/Amylase 1 each 09/20/20 13:10 Lipase 10,500/Protease 25,000/Amylase 43,750 (Units) Dr Cap FEEDTUBE PRN PRN For Clogged Feeding Tube Ascorbic Acid 500 mg 09/20/20 22:00 09/20/20 22:25 Ascorbic Acid 500 Mg Tab PO 500 mg BID EDIE Administration Cholecalciferol 1,000 unit 09/21/20 10:00 Cholecalciferol (Vit D3) 1000 Unit (25 Mcg) Tab PO QDAY EDIE Dexamethasone 6 mg 09/20/20 17:00 09/20/20 17:01 Dexamethasone 4 Mg Tab PO 09/29/20 10:01 6 mg QDAY EDIE Administration Emtricitabine 200 mg 09/20/20 12:00 09/20/20 18:40 Emtricitabine 200 Mg Cap PO 200 mg Q96H EDIE Administration Famotidine 20 mg 09/18/20 16:00 09/20/20 09:58 Famotidine 20 Mg/2 Ml Inj IV 20 mg QDAY EDIE Administration Heparin Sodium (Porcine) 3,000 unit 09/20/20 10:06 Heparin 10,000 Units/10 Ml Vial IV VIRGIL PRN hemodialysis Hydromorphone HCl 0.25 mg 09/17/20 14:50 09/21/20 04:12 Hydromorphone 1 Mg/1 Ml Inj IV 0.25 mg ONCE PRN Administration Pain , Severe (7-10) Amiodarone HCl 900 mg/ 500 mls @ 33.333 mls/hr 09/18/20 12:00 09/20/20 09:58 Dextrose IV 0.5 mg/min DIRECT EDIE 16.667 mls/hr Administration Protocol 1 MG/MIN Norepinephrine 4 mg in 250 mls @ 7.5 mls/hr 09/19/20 11:00 09/21/20 00:00 Levophed Drip 4 Mg/Ns 250 Ml IV 8 mcg/min TITR EDIE 30 mls/hr Administration Protocol 2 MCG/MIN Cefepime HCl 2 gm in 100 mls @ 200 mls/hr 09/20/20 15:00 09/20/20 15:16 Cefepime/Ns 2 Gm/100 Ml IV 200 mls/hr Q24H EDIE Administration Protocol Sodium Chloride 100 mls @ 999 mls/hr 09/20/20 10:06 Nacl 0.9% IV VIRGIL PRN Hypotension Metronidazole 500 mg in 100 mls @ 100 mls/hr 09/20/20 12:00 09/21/20 04:19 Flagyl 500 Mg/100 Ml IV 100 mls/hr Q8H EDIE Administration Protocol Vasopressin 20 unit/ Sodium 101 mls @ 9.09 mls/hr 09/20/20 17:00 09/21/20 04:19 Chloride IV 0.03 units/min TITR EDIE 9.09 mls/hr Administration Protocol 0.03 UNITS/MIN Metoprolol Tartrate 5 mg 09/19/20 19:06 Metoprolol Tartrate 5 Mg/5 Ml Inj IV Q8HR PRN HR > 135 Minute Ondansetron HCl 4 mg 09/17/20 13:52 Ondansetron 4 Mg/2 Ml Inj IV Q8H PRN Nausea And Vomiting Simple Syrup 15 ml 09/20/20 13:10 Simple Syrup 15 Ml FEEDTUBE PRN PRN Hypoglycemia Simple Syrup 30 ml 09/20/20 13:10 Simple Syrup 15 Ml FEEDTUBE PRN PRN Hypoglycemia Sodium Bicarbonate 325 mg 09/20/20 13:10 Sodium Bicarbonate 325 Mg Tab FEEDTUBE PRN PRN For Clogged Feeding Tube Sodium Chloride 10 ml 09/17/20 22:00 09/20/20 22:24 Sodium Chloride 0.9% 10 Ml Flush Syringe IV 10 ml BID EDIE Administration Sodium Chloride 10 ml 09/17/20 13:52 Sodium Chloride 0.9% 10 Ml Flush Syringe IV PRN PRN LINE FLUSH Tenofovir Disoproxil Fumarate 300 mg 09/20/20 22:00 09/20/20 22:25 Tenofovir 300 Mg Tab PO 300 mg Mo EDIE Administration Zinc Sulfate 220 mg 09/21/20 10:00 Zinc Sulfate 220 Mg Cap PO QDAY [facility]
[2020-09-21 08:07] LABS: Alanine Aminotransferase 57 units/L (7-56); Albumin 1.9 g/dL (3.9-5); Blood Urea Nitrogen 83 mg/dL (9-20); Hemolysis Index 3
[2020-09-21 08:18] LABS: BUN/Creatinine Ratio 19
[2020-09-21] MEDS: NORepinephrine/NS 4 MG-250 ML 4 MG/250 ML BAG IV SCH ×3 (08:55→18:32)
[2020-09-21 09:27] LABS: Total Cells Counted 100
[2020-09-21 09:35] LABS: Platelet Estimate Consistent w Auto; RBC Morphology Normal
[2020-09-21] MEDS: DOLUTEGRAVIR 50 MG TAB PO SCH (09:36)
[2020-09-21] MEDS: CHOLECALCIFEROL (VIT D3) 1000 UNIT (25 mcg) TAB PO SCH (09:37)
[2020-09-21] MEDS: ZINC SULFATE 220 MG CAP PO SCH (09:37)
[2020-09-21] MEDS: ASCORBIC ACID 500 MG TAB PO SCH ×2 (09:37→21:35)
[2020-09-21] MEDS: FAMOTIDINE 20 MG/2 ML INJ IV SCH (09:37)
--- NOTE | 2020-09-21 11:14 | Progress Note ---
Assessment and Plan Acute hypoxemic respiratory failure. Atrial fibrillation with rapid ventricular response. Gram negative bacteremia Acute congestive heart failure exacerbation. Acute on chronic kidney injury. Anemia that is microcytic. Coagulopathy appears to be acquired. Respiratory alkalosis. Mild metabolic acidosis. Possible severe sepsis with shock due to a urinary tract infection. Urinary tract infection (i do feel that despite his CHF history he is septic now and with relative IVVD and will benefit from gentle hydration acutely - IVNS @ 75 mls/hr X 2 liters - continue to wean vasopressors for target MAP > 65 mmHg - enteral nutrition @ goal rate as tolerated - continue AB's per ID recommendations - continue care as below otherwise; - continue to wean supplemental oxygen for target O2 sat's > 92% acutely - Aspiration precautions - continue bronchodilators with pulmonary hygiene per RT - continue accuchecks with glycemic control per SSI (While critically ill target blood glucose of 140-180 mg/dL; avoid hypoglycemia) - avoid nephrotoxins, renally dose all medications - continue to avoid benzodiazepine's, reduce the possibility of delirium - complete AB's per ID rec's (on Cefepime) - prn analgesia per pain score - Maintenance of sleep-wake cycle, avoid delirium - G.I. & VTE prophylaxis - PT/OT/ROM exercises - continue mobility protocols for pressure ulcer prophylaxis - Monitor hemodynamics closely - continue other care per attending / other consultants - discharge planning ongoing concurrently COVID SPECIFIC INTERVENTIONS - Remdesivir as per ID/Pulmonary developed protocols - systemic steroids for severe COVID-19 infection (on Decadron) - follow repeat COVID tests results - zinc and vitamin C supplementation - Monitor inflammatory markers per facility protocol - ferritin, Ddimer, CRP - therapeutic anticoagulation per system Protocol based on d-dimer and clinical considerations - Continue contact and airborne isolation .... Re-evaluate in am & prn CONDITION: CRITICAL PROGNOSIS: GUARDED CODE STATUS: FULL CODE The high probability of a clinically significant, sudden or life-threatening deterioration of the [respiratory, cardiovascular & neurologic] system(s) required my full and direct attention, intervention and personal management. The aggregate critical care time was [32] minutes without overlap. Time includes spent on; [x] Data Review and interpretation [x] Patient assessment and monitoring of vital signs [x] Documentation [x] Medication orders and management Subjective Date of service: 09/21/20 Principal diagnosis: Ac hypoxemic resp failure; A-fib RVR; AE-CHF; LOLI; Septic shock; UTI Interval history: Patient is seen today for: Acute hypoxemic respiratory failure; A-fib with RVR; AE-CHF; LOLI on CKD; Severe sepsis with shock; UTI Seen and examined at bedside; 24hour events reviewed; nursing and respiratory care staff consulted; no adverse overnight events reported to me; resting peacefully in bed; went for HIDA scan today; COVID-19 test positive; remains on Levophed drip @ 4 mics/min and vasopressin Objective Vital Signs - 12hr 09/20/20 09/20/20 09/20/20 23:15 23:16 23:29 Temperature 98 F Pulse Rate 100 H 98 H Pulse Rate [ From Monitor] Pulse Rate [ None] Respiratory 11 L 10 L Rate Blood Pressure 158/118 158/118 O2 Sat by Pulse 100 100 Oximetry 09/20/20 09/20/20 09/20/20 23:31 23:41 23:45 Temperature Pulse Rate 91 H 105 H 100 H Pulse Rate [ From Monitor] Pulse Rate [ None] Respiratory 11 L 11 L 10 L Rate Blood Pressure 158/118 158/118 158/118 O2 Sat by Pulse 100 100 100 Oximetry 09/21/20 09/21/20 09/21/20 00:00 00:01 00:15 Temperature Pulse Rate 94 H 100 H 100 H Pulse Rate [ 100 H From Monitor] Pulse Rate [ None] Respiratory 12 10 L 11 L Rate Blood Pressure 158/118 158/118 O2 Sat by Pulse 100 100 100 Oximetry 09/21/20 09/21/20 09/21/20 00:31 00:45 01:00 Temperature Pulse Rate 112 H 99 H 97 H Pulse Rate [ From Monitor] Pulse Rate [ None] Respiratory 11 L 11 L 12 Rate Blood Pressure 158/118 158/118 158/118 O2 Sat by Pulse 100 100 100 Oximetry 09/21/20 09/21/20 09/21/20 01:15 01:31 01:45 Temperature Pulse Rate 98 H 98 H 94 H Pulse Rate [ From Monitor] Pulse Rate [ None] Respiratory 12 11 L 11 L Rate Blood Pressure 158/118 158/118 158/118 O2 Sat by Pulse 100 100 100 Oximetry 09/21/20 09/21/20 09/21/20 02:01 02:15 02:31 Temperature Pulse Rate 93 H 94 H 114 H Pulse Rate [ From Monitor] Pulse Rate [ None] Respiratory 11 L 11 L 15 Rate Blood Pressure 158/118 158/118 158/118 O2 Sat by Pulse 100 100 100 Oximetry 09/21/20 09/21/20 09/21/20 02:45 03:01 03:15 Temperature Pulse Rate 104 H 96 H 103 H Pulse Rate [ From Monitor] Pulse Rate [ None] Respiratory 12 11 L 12 Rate Blood Pressure 158/118 158/118 158/118 O2 Sat by Pulse 100 100 100 Oximetry 09/21/20 09/21/20 09/21/20 03:31 03:33 03:45 Temperature 98.2 F Pulse Rate 146 H 150 H Pulse Rate [ From Monitor] Pulse Rate [ None] Respiratory 13 13 Rate Blood Pressure 158/118 158/118 O2 Sat by Pulse 100 100 Oximetry 09/21/20 09/21/20 09/21/20 04:00 04:01 04:10 Temperature Pulse Rate 148 H 138 H 134 H Pulse Rate [ 150 H From Monitor] Pulse Rate [ None] Respiratory 13 12 10 L Rate Blood Pressure 158/118 158/118 O2 Sat by Pulse 100 100 100 Oximetry 09/21/20 09/21/20 09/21/20 04:15 04:31 04:45 Temperature Pulse Rate 132 H 123 H 141 H Pulse Rate [ From Monitor] Pulse Rate [ None] Respiratory 10 L 9 L 10 L Rate Blood Pressure 158/118 158/118 158/118 O2 Sat by Pulse 100 100 100 Oximetry 09/21/20 09/21/20 09/21/20 05:01 05:15 05:31 Temperature Pulse Rate 152 H 126 H 116 H Pulse Rate [ From Monitor] Pulse Rate [ None] Respiratory 11 L 10 L 10 L Rate Blood Pressure 158/118 158/118 113/73 O2 Sat by Pulse 100 99 100 Oximetry 09/21/20 09/21/20 09/21/20 05:45 06:01 06:15 Temperature Pulse Rate 109 H 108 H 107 H Pulse Rate [ From Monitor] Pulse Rate [ None] Respiratory 11 L 10 L 10 L Rate Blood Pressure 113/73 113/73 113/73 O2 Sat by Pulse 100 100 100 Oximetry 09/21/20 09/21/20 09/21/20 06:31 06:45 07:01 Temperature Pulse Rate 102 H 103 H 95 H Pulse Rate [ From Monitor] Pulse Rate [ None] Respiratory 10 L 11 L 10 L Rate Blood Pressure 113/73 113/73 113/73 O2 Sat by Pulse 100 100 100 Oximetry 09/21/20 09/21/20 09/21/20 07:15 07:31 07:39 Temperature Pulse Rate 109 H 96 H Pulse Rate [ From Monitor] Pulse Rate [ None] Respiratory 13 11 L Rate Blood Pressure 113/73 113/73 O2 Sat by Pulse 99 100 98 Oximetry 09/21/20 09/21/20 09/21/20 07:45 08:00 08:01 Temperature 97.9 F Pulse Rate 84 111 H 97 H Pulse Rate [ 112 H From Monitor] Pulse Rate [ None] Respiratory 12 15 14 Rate Blood Pressure 113/73 52/33 O2 Sat by Pulse 99 99 99 Oximetry 09/21/20 09/21/20 09/21/20 08:15 08:30 08:45 Temperature Pulse Rate 104 H 107 H 115 H Pulse Rate [ From Monitor] Pulse Rate [ None] Respiratory 13 13 12 Rate Blood Pressure 115/94 144/123 133/94 O2 Sat by Pulse 99 99 99 Oximetry 09/21/20 09/21/20 09/21/20 09:00 09:15 09:31 Temperature Pulse Rate 108 H 110 H 114 H Pulse Rate [ From Monitor] Pulse Rate [ None] Respiratory 17 15 12 Rate Blood Pressure 136/101 128/108 137/102 O2 Sat by Pulse 99 99 99 Oximetry 09/21/20 09/21/20 09:45 11:04 Temperature Pulse Rate 113 H Pulse Rate [ From Monitor] Pulse Rate [ 103 H None] Respiratory 14 16 Rate Blood Pressure 128/90 125/89 O2 Sat by Pulse 99 96 Oximetry Constitutional: appears uncomfortable, other (elderly male with mildly increased respiratory effort at rest) Eyes: non-icteric ENT: oropharynx moist Neck: supple, no lymphadenopathy, no JVD Effort: mildly labored Ascultation: Bilateral: rhonchi Percussion: Bilateral: not dull Cardiovascular: irregular rhythm Gastrointestinal: normoactive bowel sounds, soft, non-tender, non-distended Integumentary: normal Extremities: no cyanosis, no edema, pulses normal, no ischemia or petechiae Neurologic: non-focal exam (grossly), pupils equal and round, CN II-XII normal, other (delirious) Psychiatric: other (delirious) CBC and BMP: 05/04/21 Unknown 09/21/20 Unknown ABG, PT/INR, D-dimer: ABG ABG pH 7.508 (7.320-7.450) H 09/17/20 10:28 POC ABG pCO2 22.8 mmHg (32.0-48.0) L 09/17/20 10:28 POC ABG pO2 66.8 mmHg (83-108) L 09/17/20 10:28 POC ABG HCO3 17.7 09/17/20 10:28 ABG O2 Saturation 93.4 (0-100) 09/17/20 10:28 PT/INR, D-dimer PT 16.8 Sec. (12.2-14.9) H 09/21/20 Unknown INR 1.36 (0.87-1.13) H 09/21/20 Unknown D-Dimer 4271.58 ng/mlDDU (0-234) H 09/20/20 17:10 Abnormal lab findings: Abnormal Labs 09/17/20 09/17/20 09/17/20 10:28 10:47 10:47 WBC 11.1 H RBC 3.44 L Hgb 11.2 L Hct 32.8 L MCV 95 H MCH MCHC Plt Count Seg Neuts % (Manual) Lymphocytes % (Manual) 4.0 L Monocytes % (Manual) Nucleated RBC % Seg Neutrophils # Man 10.7 H Lymphocytes # (Manual) 0.4 L PT 32.9 H INR 3.16 H APTT 51.1 H D-Dimer Heparin Anti-Xa Level ABG pH 7.508 H POC ABG pCO2 22.8 L POC ABG pO2 66.8 L ABG Oxyhemoglobin 92.7 L ABG Sodium 127.4 L ABG Potassium 4.7 H ABG Glucose 121 H Carboxyhemoglobin 0.4 L Sodium Chloride Carbon Dioxide BUN Creatinine Glucose POC Glucose Calcium Phosphorus Ferritin Total Bilirubin AST ALT Alkaline Phosphatase Lactate Dehydrogenase Total Creatine Kinase Troponin T C-Reactive Protein NT-Pro-B Natriuret Pep Total Protein Albumin Cholesterol LDL Cholesterol Direct HDL Cholesterol PTH Intact Arterial Blood Glucose 121 H Urine WBC (Auto) Urine Creatinine Coronavirus (PCR) 09/17/20 09/17/20 09/17/20 10:47 10:47 13:54 WBC RBC Hgb Hct MCV MCH MCHC Plt Count Seg Neuts % (Manual) Lymphocytes % (Manual) Monocytes % (Manual) Nucleated RBC % Seg Neutrophils # Man Lymphocytes # (Manual) PT INR APTT D-Dimer Heparin Anti-Xa Level ABG pH POC ABG pCO2 POC ABG pO2 ABG Oxyhemoglobin ABG Sodium ABG Potassium ABG Glucose Carboxyhemoglobin Sodium 125 L Chloride 95.3 L Carbon Dioxide 17 L BUN 64 H Creatinine 4.6 H D Glucose 104 H POC Glucose Calcium Phosphorus Ferritin Total Bilirubin AST 69 H ALT Alkaline Phosphatase Lactate Dehydrogenase Total Creatine Kinase Troponin T 0.061 H D 0.058 H C-Reactive Protein NT-Pro-B Natriuret Pep 33653 H Total Protein Albumin 1.9 L Cholesterol 48 L LDL Cholesterol Direct 4 L HDL Cholesterol 9 L PTH Intact Arterial Blood Glucose Urine WBC (Auto) Urine Creatinine Coronavirus (PCR) 09/17/20 09/17/20 09/17/20 16:36 17:35 17:35 WBC RBC 3.25 L Hgb 10.7 L Hct 31.1 L MCV 96 H MCH 33 H MCHC Plt Count Seg Neuts % (Manual) Lymphocytes % (Manual) Monocytes % (Manual) Nucleated RBC % Seg Neutrophils # Man Lymphocytes # (Manual) PT 31.9 H INR 3.04 H APTT 50.9 H D-Dimer Heparin Anti-Xa Level ABG pH POC ABG pCO2 POC ABG pO2 ABG Oxyhemoglobin ABG Sodium ABG Potassium ABG Glucose Carboxyhemoglobin Sodium Chloride Carbon Dioxide BUN Creatinine Glucose POC Glucose Calcium Phosphorus Ferritin Total Bilirubin AST ALT Alkaline Phosphatase Lactate Dehydrogenase Total Creatine Kinase Troponin T 0.057 H C-Reactive Protein NT-Pro-B Natriuret Pep Total Protein Albumin Cholesterol LDL Cholesterol Direct HDL Cholesterol PTH Intact Arterial Blood Glucose Urine WBC (Auto) Urine Creatinine Coronavirus (PCR) 09/17/20 09/18/20 09/18/20 17:35 03:19 03:19 WBC RBC 3.32 L Hgb 10.9 L Hct 32.0 L MCV 96 H MCH 33 H MCHC Plt Count 138 L Seg Neuts % (Manual) 95.0 H Lymphocytes % (Manual) 3.0 L Monocytes % (Manual) Nucleated RBC % Seg Neutrophils # Man 8.1 H Lymphocytes # (Manual) 0.3 L PT INR APTT D-Dimer Heparin Anti-Xa Level ABG pH POC ABG pCO2 POC ABG pO2 ABG Oxyhemoglobin ABG Sodium ABG Potassium ABG Glucose Carboxyhemoglobin Sodium Chloride Carbon Dioxide 16 L BUN 70 H Creatinine 4.6 H 4.7 H Glucose 104 H POC Glucose Calcium 8.2 L Phosphorus Ferritin Total Bilirubin 1.60 H AST 128 H ALT 67 H Alkaline Phosphatase Lactate Dehydrogenase Total Creatine Kinase Troponin T C-Reactive Protein NT-Pro-B Natriuret Pep Total Protein 5.2 L D Albumin 2.5 L Cholesterol LDL Cholesterol Direct HDL Cholesterol PTH Intact Arterial Blood Glucose Urine WBC (Auto) Urine Creatinine Coronavirus (PCR) 09/18/20 09/18/20 09/18/20 09:39 12:00 12:00 WBC RBC Hgb Hct MCV MCH MCHC Plt Count Seg Neuts % (Manual) Lymphocytes % (Manual) Monocytes % (Manual) Nucleated RBC % Seg Neutrophils # Man Lymphocytes # (Manual) PT INR APTT D-Dimer Heparin Anti-Xa Level ABG pH POC ABG pCO2 POC ABG pO2 ABG Oxyhemoglobin ABG Sodium ABG Potassium ABG Glucose Carboxyhemoglobin Sodium Chloride Carbon Dioxide BUN Creatinine Glucose POC Glucose Calcium Phosphorus Ferritin Total Bilirubin AST ALT Alkaline Phosphatase Lactate Dehydrogenase Total Creatine Kinase Troponin T C-Reactive Protein NT-Pro-B Natriuret Pep Total Protein Albumin Cholesterol LDL Cholesterol Direct HDL Cholesterol PTH Intact Arterial Blood Glucose Urine WBC (Auto) 71.0 H Urine Creatinine 61.0 H Coronavirus (PCR) Positive A 09/18/20 09/18/20 09/18/20 15:07 15:07 18:33 WBC RBC Hgb 10.7 L Hct 31.3 L MCV MCH MCHC Plt Count Seg Neuts % (Manual) Lymphocytes % (Manual) Monocytes % (Manual) Nucleated RBC % Seg Neutrophils # Man Lymphocytes # (Manual) PT 20.3 H INR 1.73 H APTT 40.8 H D-Dimer Heparin Anti-Xa Level 1.09 H ABG pH POC ABG pCO2 POC ABG pO2 ABG Oxyhemoglobin ABG Sodium ABG Potassium ABG Glucose Carboxyhemoglobin Sodium Chloride Carbon Dioxide BUN Creatinine Glucose POC Glucose Calcium Phosphorus Ferritin Total Bilirubin AST ALT Alkaline Phosphatase Lactate Dehydrogenase Total Creatine Kinase Troponin T C-Reactive Protein NT-Pro-B Natriuret Pep Total Protein Albumin Cholesterol LDL Cholesterol Direct HDL Cholesterol PTH Intact Arterial Blood Glucose Urine WBC (Auto) Urine Creatinine Coronavirus (PCR) 09/19/20 09/19/20 09/19/20 03:30 03:30 03:30 WBC RBC 3.29 L Hgb 10.9 L Hct 30.9 L MCV MCH 33 H MCHC 35 H Plt Count Seg Neuts % (Manual) Lymphocytes % (Manual) Monocytes % (Manual) Nucleated RBC % Seg Neutrophils # Man Lymphocytes # (Manual) PT INR APTT D-Dimer Heparin Anti-Xa Level ABG pH POC ABG pCO2 POC ABG pO2 ABG Oxyhemoglobin ABG Sodium ABG Potassium ABG Glucose Carboxyhemoglobin Sodium 133 L Chloride Carbon Dioxide 17 L BUN 94 H Creatinine 5.0 H Glucose 120 H POC Glucose Calcium Phosphorus 6.30 H Ferritin Total Bilirubin 2.40 H AST 163 H ALT 109 H Alkaline Phosphatase 160 H Lactate Dehydrogenase Total Creatine Kinase 20 L Troponin T C-Reactive Protein NT-Pro-B Natriuret Pep Total Protein 6.2 L Albumin 2.0 L Cholesterol LDL Cholesterol Direct HDL Cholesterol PTH Intact 161.4 H Arterial Blood Glucose Urine WBC (Auto) Urine Creatinine Coronavirus (PCR) 09/19/20 09/19/20 09/20/20 06:35 23:37 04:00 WBC RBC 3.43 L Hgb 11.1 L Hct 32.2 L MCV MCH MCHC Plt Count 131 L Seg Neuts % (Manual) 88.0 H Lymphocytes % (Manual) 3.0 L Monocytes % (Manual) 9.0 H Nucleated RBC % Seg Neutrophils # Man 8.2 H Lymphocytes # (Manual) 0.3 L PT INR APTT D-Dimer Heparin Anti-Xa Level ABG pH POC ABG pCO2 POC ABG pO2 ABG Oxyhemoglobin ABG Sodium ABG Potassium ABG Glucose Carboxyhemoglobin Sodium Chloride Carbon Dioxide BUN Creatinine Glucose POC Glucose 123 H 135 H Calcium Phosphorus Ferritin Total Bilirubin AST ALT Alkaline Phosphatase Lactate Dehydrogenase Total Creatine Kinase Troponin T C-Reactive Protein NT-Pro-B Natriuret Pep Total Protein Albumin Cholesterol LDL Cholesterol Direct HDL Cholesterol PTH Intact Arterial Blood Glucose Urine WBC (Auto) Urine Creatinine Coronavirus (PCR) 09/20/20 09/20/20 09/20/20 04:00 04:00 05:37 WBC RBC Hgb Hct MCV MCH MCHC Plt Count Seg Neuts % (Manual) Lymphocytes % (Manual) Monocytes % (Manual) Nucleated RBC % Seg Neutrophils # Man Lymphocytes # (Manual) PT INR APTT D-Dimer Heparin Anti-Xa Level 0.10 L ABG pH POC ABG pCO2 POC ABG pO2 ABG Oxyhemoglobin ABG Sodium ABG Potassium ABG Glucose Carboxyhemoglobin Sodium Chloride Carbon Dioxide 16 L BUN 119 H Creatinine 6.2 H Glucose 136 H POC Glucose 137 H Calcium Phosphorus Ferritin Total Bilirubin AST ALT Alkaline Phosphatase Lactate Dehydrogenase Total Creatine Kinase Troponin T C-Reactive Protein NT-Pro-B Natriuret Pep Total Protein Albumin Cholesterol LDL Cholesterol Direct HDL Cholesterol PTH Intact Arterial Blood Glucose Urine WBC (Auto) Urine Creatinine Coronavirus (PCR) 09/20/20 09/20/20 09/20/20 11:20 17:10 17:10 WBC RBC Hgb Hct MCV MCH MCHC Plt Count Seg Neuts % (Manual) Lymphocytes % (Manual) Monocytes % (Manual) Nucleated RBC % Seg Neutrophils # Man Lymphocytes # (Manual) PT INR APTT D-Dimer 4271.58 H Heparin Anti-Xa Level ABG pH POC ABG pCO2 POC ABG pO2 ABG Oxyhemoglobin ABG Sodium ABG Potassium ABG Glucose Carboxyhemoglobin Sodium Chloride Carbon Dioxide BUN Creatinine 6.0 H Glucose POC Glucose 108 H Calcium Phosphorus Ferritin Total Bilirubin AST ALT Alkaline Phosphatase Lactate Dehydrogenase Total Creatine Kinase Troponin T C-Reactive Protein NT-Pro-B Natriuret Pep Total Protein Albumin Cholesterol LDL Cholesterol Direct HDL Cholesterol PTH Intact Arterial Blood Glucose Urine WBC (Auto) Urine Creatinine Coronavirus (PCR) 09/20/20 09/20/20 09/20/20 17:10 17:10 18:21 WBC RBC Hgb Hct MCV MCH MCHC Plt Count Seg Neuts % (Manual) Lymphocytes % (Manual) Monocytes % (Manual) Nucleated RBC % Seg Neutrophils # Man Lymphocytes # (Manual) PT INR APTT D-Dimer Heparin Anti-Xa Level ABG pH POC ABG pCO2 POC ABG pO2 ABG Oxyhemoglobin ABG Sodium ABG Potassium ABG Glucose Carboxyhemoglobin Sodium Chloride Carbon Dioxide BUN Creatinine Glucose POC Glucose 129 H Calcium Phosphorus Ferritin 696.6 H Total Bilirubin AST ALT Alkaline Phosphatase Lactate Dehydrogenase 209 H Total Creatine Kinase Troponin T C-Reactive Protein 10.60 H NT-Pro-B Natriuret Pep Total Protein Albumin Cholesterol LDL Cholesterol Direct HDL Cholesterol PTH Intact Arterial Blood Glucose Urine WBC (Auto) Urine Creatinine Coronavirus (PCR) 09/20/20 09/21/20 09/21/20 23:14 05:35 Unknown WBC RBC 3.56 L Hgb 11.3 L Hct 33.2 L MCV MCH MCHC Plt Count 125 L Seg Neuts % (Manual) 90.0 H Lymphocytes % (Manual) 8.0 L Monocytes % (Manual) Nucleated RBC % 1.0 H Seg Neutrophils # Man 9.4 H Lymphocytes # (Manual) 0.8 L PT INR APTT D-Dimer Heparin Anti-Xa Level ABG pH POC ABG pCO2 POC ABG pO2 ABG Oxyhemoglobin ABG Sodium ABG Potassium ABG Glucose Carboxyhemoglobin Sodium Chloride Carbon Dioxide BUN Creatinine Glucose POC Glucose 170 H 170 H Calcium Phosphorus Ferritin Total Bilirubin AST ALT Alkaline Phosphatase Lactate Dehydrogenase Total Creatine Kinase Troponin T C-Reactive Protein NT-Pro-B Natriuret Pep Total Protein Albumin Cholesterol LDL Cholesterol Direct HDL Cholesterol PTH Intact Arterial Blood Glucose Urine WBC (Auto) Urine Creatinine Coronavirus (PCR) 09/21/20 09/21/20 Unknown Unknown WBC RBC Hgb Hct MCV MCH MCHC Plt Count Seg Neuts % (Manual) Lymphocytes % (Manual) Monocytes % (Manual) Nucleated RBC % Seg Neutrophils # Man Lymphocytes # (Manual) PT 16.8 H INR 1.36 H APTT D-Dimer Heparin Anti-Xa Level ABG pH POC ABG pCO2 POC ABG pO2 ABG Oxyhemoglobin ABG Sodium ABG Potassium ABG Glucose Carboxyhemoglobin Sodium Chloride Carbon Dioxide BUN 83 H Creatinine 4.3 H Glucose 163 H POC Glucose Calcium Phosphorus Ferritin Total Bilirubin 2.40 H AST ALT 57 H Alkaline Phosphatase Lactate Dehydrogenase Total Creatine Kinase Troponin T C-Reactive Protein NT-Pro-B Natriuret Pep Total Protein Albumin 1.9 L Cholesterol LDL Cholesterol Direct HDL Cholesterol PTH Intact Arterial Blood Glucose Urine WBC (Auto) Urine Creatinine Coronavirus (PCR) Chest x-ray: other (none today) Allied health notes reviewed: nursing
--- NOTE | 2020-09-21 12:27 | Progress Note ---
Assessment and Plan Cultures: 09/18/2020 COVID-19 PCR: Positive 09/18/2020 blood culture: E.coli 09/18/2020 Urine culture: E.coli Assessment: 70-year-old male with history of HIV infection (unknown CD4/VL/ART compliance), hypertension, atrial fibrillation on Xarelto, initially admitted on 09/15/2020 RVR A. fib, LOLI, left AMA, came back to the ED on 09/17/2020 secondary to worsening shortness of breath for 3 days: #Severe sepsis with septic shock: likely secondary to E.coli bacteremia ?from UTI v/s cholecystitis. #E.coli bacteremia: Likely from UTI. RUQ US did show a large GB stone. Labs with elevated LFTs and bilirubin. HIDA pending. #UTI: Urinalysis with 71 WBCs and moderate leukocyte esterase. Urine culture pending. #COVID-19: PCR positive. On supplemental oxygen. Agree with steroids. Follow- up HIDA scan #LOLI: Likely due to sepsis. On HD. #Acute respiratory hypoxic failure: on NC. #HIV: listed meds are Descovy + Tivicay. Status unknown. #Acute encephalopathy: ?multifactorial. Recommendations: -Given ongoing pressor use, will switch to Meropenem pending E.coli susceptib ilities -COVID positive, agree with steroids -Follow-up HIV RNA PCR, viral load -Follow-up HIDA -continue renally dosed antiretroviral therapy: TDF + FTC + DTG Pat Rae MD, FACP [facility] ([facility]) O: [phone] F: [phone] Subjective Date of service: 09/21/20 Principal diagnosis: Ac hypoxemic resp failure; A-fib RVR; AE-CHF; LOLI; Septic shock; UTI Interval history: No fever. On nasal cannula. COVID-19 PCR came positive. Remains on pressors. Objective - Exam Narrative Exam: Physical Exam (reviewed in chart to minimize risk of transmission) Constitutional: deferred Head, Ears, Nose: deferred Eyes: deferred Neck: deferred Oral: deferred Cardiovascular: deferred Respiratory: deferred GI: deferred Musculoskeletal: deferred Skin: deferred Hem/Lymphatic: deferred Psych: deferred Neurological: deferred - Constitutional Vitals: Vital Signs Temp Pulse Resp BP Pulse Ox 97.9 F 106 H 17 125/85 99 09/21/20 08:00 09/21/20 12:00 09/21/20 12:00 09/21/20 11:54 09/21/20 12:00 Temperature -Last 24 Hours Temperature 97.9 F Temperature 98.2 F Temperature 98 F Temperature 97.8 F Temperature 97.8 F Temperature 97.8 F Temperature 97.6 F - Labs CBC & Chem 7: 09/21/20 Unknown 09/21/20 Unknown Labs: Abnormal lab results 09/18/20 09/20/20 09/20/20 Range/Units 09:39 11:20 17:10 RBC (3.65-5.03) M/mm3 Hgb (11.8-15.2) gm/dl Hct (35.5-45.6) % Plt Count (140-440) K/mm3 Seg Neuts % (Manual) (40.0-70.0) % Lymphocytes % (Manual) (13.4-35.0) % Nucleated RBC % (0.0-0.9) % Seg Neutrophils # Man (1.8-7.7) K/mm3 Lymphocytes # (Manual) (1.2-5.4) K/mm3 PT (12.2-14.9) Sec. INR (0.87-1.13) D-Dimer (0-234) ng/mlDDU BUN (9-20) mg/dL Creatinine 6.0 H (0.8-1.3) mg/dL Glucose (75-100) mg/dL POC Glucose 108 H (70-105) mg/dL Ferritin (30.0-300.0) ng/mL Total Bilirubin (0.1-1.2) mg/dL ALT (7-56) units/L Alkaline Phosphatase (35-129) units/L Lactate Dehydrogenase (91-180) units/L C-Reactive Protein (0.00-1.30) mg/dL Albumin (3.9-5) g/dL Coronavirus (PCR) Positive A (Negative) 09/20/20 09/20/20 09/20/20 Range/Units 17:10 17:10 17:10 RBC (3.65-5.03) M/mm3 Hgb (11.8-15.2) gm/dl Hct (35.5-45.6) % Plt Count (140-440) K/mm3 Seg Neuts % (Manual) (40.0-70.0) % Lymphocytes % (Manual) (13.4-35.0) % Nucleated RBC % (0.0-0.9) % Seg Neutrophils # Man (1.8-7.7) K/mm3 Lymphocytes # (Manual) (1.2-5.4) K/mm3 PT (12.2-14.9) Sec. INR (0.87-1.13) D-Dimer 4271.58 H (0-234) ng/mlDDU BUN (9-20) mg/dL Creatinine (0.8-1.3) mg/dL Glucose (75-100) mg/dL POC Glucose (70-105) mg/dL Ferritin 696.6 H (30.0-300.0) ng/mL Total Bilirubin (0.1-1.2) mg/dL ALT (7-56) units/L Alkaline Phosphatase (35-129) units/L Lactate Dehydrogenase 209 H (91-180) units/L C-Reactive Protein 10.60 H (0.00-1.30) mg/dL Albumin (3.9-5) g/dL Coronavirus (PCR) (Negative) 09/20/20 09/20/20 09/21/20 Range/Units 18:21 23:14 05:35 RBC (3.65-5.03) M/mm3 Hgb (11.8-15.2) gm/dl Hct (35.5-45.6) % Plt Count (140-440) K/mm3 Seg Neuts % (Manual) (40.0-70.0) % Lymphocytes % (Manual) (13.4-35.0) % Nucleated RBC % (0.0-0.9) % Seg Neutrophils # Man (1.8-7.7) K/mm3 Lymphocytes # (Manual) (1.2-5.4) K/mm3 PT (12.2-14.9) Sec. INR (0.87-1.13) D-Dimer (0-234) ng/mlDDU BUN (9-20) mg/dL Creatinine (0.8-1.3) mg/dL Glucose (75-100) mg/dL POC Glucose 129 H 170 H 170 H (70-105) mg/dL Ferritin (30.0-300.0) ng/mL Total Bilirubin (0.1-1.2) mg/dL ALT (7-56) units/L Alkaline Phosphatase (35-129) units/L Lactate Dehydrogenase (91-180) units/L C-Reactive Protein (0.00-1.30) mg/dL Albumin (3.9-5) g/dL Coronavirus (PCR) (Negative) 09/21/20 09/21/20 09/21/20 Range/Units Unknown Unknown Unknown RBC 3.56 L (3.65-5.03) M/mm3 Hgb 11.3 L (11.8-15.2) gm/dl Hct 33.2 L (35.5-45.6) % Plt Count 125 L (140-440) K/mm3 Seg Neuts % (Manual) 90.0 H (40.0-70.0) % Lymphocytes % (Manual) 8.0 L (13.4-35.0) % Nucleated RBC % 1.0 H (0.0-0.9) % Seg Neutrophils # Man 9.4 H (1.8-7.7) K/mm3 Lymphocytes # (Manual) 0.8 L (1.2-5.4) K/mm3 PT 16.8 H (12.2-14.9) Sec. INR 1.36 H (0.87-1.13) D-Dimer (0-234) ng/mlDDU BUN 83 H (9-20) mg/dL Creatinine 4.3 H (0.8-1.3) mg/dL Glucose 163 H (75-100) mg/dL POC Glucose (70-105) mg/dL Ferritin (30.0-300.0) ng/mL Total Bilirubin 2.40 H (0.1-1.2) mg/dL ALT 57 H (7-56) units/L Alkaline Phosphatase < 5 L (35-129) units/L Lactate Dehydrogenase (91-180) units/L C-Reactive Protein (0.00-1.30) mg/dL Albumin 1.9 L (3.9-5) g/dL Coronavirus (PCR) (Negative)
--- NOTE | 2020-09-21 12:37 | Progress Note ---
Assessment and Plan Assessment and plan: This is 70-year-old male with HIV, HTN, and atrial fibrillation (currently on therapeutic anticoagulation with Xarelto) admitted with atrial fibrillation with RVR, SIRs, metabolic acidosis, acute kidney injury, acute hypoxic respiratory failure, hypotension, and CHF Septic Shock Acute hypoxemic respiratory failure 2/2 to volume overload/chf exacerbation Acute systolic heart failure exacerbation Atrial fibrillation with RVR Acute on chronic kidney injury Hypotension Anemia Gram-negative bacilli bacteremia (E. coli 1/2 bottles, awaiting speciation of other bottle) E. coli urinary tract infection NSTEMI Elevated Ddimer Metabolic acidosis HIV HTN Coagulopathy Metabolic acidosis Transaminitis -Cardiology, CCM, Nephrology, ID, general surgery consulted, appreciate recommendations -09/20 COVID-19 PCR positive -Droplet/isolation precautions -Dexamethasone 6 mg p.o. (09/20-09/30) -Vitamin D, vitamin C, zinc -Vasopressor support with levophed and vasopressin -09/17 CXR shows borderline heart size, mild central pulmonary venous congestion -09/17 renal ultrasound shows no acute findings -09/18 echocardiogram shows left ventricle systolic function mildly decreased, LVEF of 40 to 45% with mild concentric left ventricle hypertrophy, trace MR, mild TR, trace IL -09/19 abdominal ultrasound shows large gallstone within the gallbladder, no pericholecystic fluid, gallbladder wall upper limits of normal measuring 3 mm -09/21 HIDA scan shows no evidence of acute cholecystitis -09/21 BLE Dopplar US pending -09/17 proBNP 64568 -S/p IV Lasix twice daily -09/20 nephrology initiate the patient on dialysis -Pulmonary hygiene -Bipap qhs -IV amiodarone -HIV meds per ID -IV abx therapy -Trend CBC, BMP, LFTs DVT/GI prophylaxis: PPI, SCDs to bilateral lower extremities while in bed, systemic coagulation with heparin (on hold for procedure 09/20) Disposition: ICU The high probability of a clinically significant, sudden or life threatening deterioration of the [multi] system(s) required my full and direct attention, intervention and personal management. The aggregate critical care time was [35] minutes. This time is in addition to time spent performing reported procedures but includes the following: [x] Data Review and interpretation [x] Patient assessment and monitoring of vital signs [x] Documentation [x] Medication orders and management History Interval history: This is 70-year-old male with HIV, HTN, and atrial fibrillation (currently on therapeutic anticoagulation with Xarelto) presents the emergency department on 09/17 with complaints of shortness of breath over the past 3 days and on arrival of EMS patient was found to have a pulse oximetry of 85% on room air. He was placed on supplemental oxygenation. Of note patient was admitted on 09/15 with similar complaints and found to have A. fib with RVR, hyponatremia, hypomagnesemia and acute kidney injury and left AMA. He was admitted to the hospital service with atrial fibrillation with RVR, SIRs, metabolic acidosis, acute kidney injury, acute hypoxic respiratory failure, hypotension, and CHF . Cardiology, CCM and nephrology were consulted. 09/18/2020. Await echocardiogram to assess for diastolic versus systolic etiology. Patient with elevated BNP greater than 18,000. Patient apparently was admitted approximately 3 days ago but left AMA. Cardiology consulted for heart failure, A. fib with RVR and elevated troponin. Patient denies chest pain. Also, patient with elevated creatinine of 4.7 with creatinine 2.8 on recent admission. We do not have a previous creatinine as a baseline to compare. Nephrology consultation pending. Follow-up renal ultrasound. Patient with coagulopathy and INR 3.04. Unsure if patient was on anticoagulation for A. fib. 09/19/2020. Patient likely with vasomotor acute kidney injury in the setting of shock. Follow-up urine studies and renal ultrasound. Creatinine continues to worsen. Nephrology following. Etiology of respiratory failure secondary to heart failure with Covid testing pending. Elevated troponin suggestive of NSTEMI. Continue diuresis with Lasix. Continue IV amiodarone for rate control of A. fib with RVR. Continue heparin. Follow-up echocardiogram. Cardiology following. 09/20/2020: This time my examination patient was on BiPAP therapy and now is on nasal cannula. Patient remains on amiodarone drip with heart rate in the 130s to 140s and vasopressor support with Levophed. Today nephrology will initiate hemodialysis given worsening renal function studies and has stopped diuresis with Lasix. ID resumed antiretroviral therapy and ordered a HIDA scan. Today the patient received a temporary Vas-Cath and is COVID-19 PCR resulted as positive. Patient will be started on vitamin C, vitamin D and zinc and dexamethasone given need for supplemental oxygenation. 5/4: Ecoli UTI and bacteremia and ID has changed him to meropenem, Patient received HD yesterday and patient remains on amiodarone drip. He is off the fl oor to obtain a HIDA scan. Hospitalist Physical - Physical exam Narrative exam: not conducted as the patient was off the floor for a procedure - Constitutional Vitals: Temp Pulse Resp BP Pulse Ox 97.9 F 106 H 17 125/85 99 09/21/20 08:00 09/21/20 12:00 09/21/20 12:00 09/21/20 11:54 09/21/20 12:00 General appearance: Present: mild distress HEART Score - HEART Score Troponin: Troponin T 0.057 ng/mL (0.00-0.029) H 09/17/20 16:36 Results - Labs CBC & Chem 7: 09/21/20 Unknown 09/21/20 Unknown Labs: Laboratory Last Values WBC 10.4 K/mm3 (4.5-11.0) 09/21/20 Unknown RBC 3.56 M/mm3 (3.65-5.03) L 09/21/20 Unknown Hgb 11.3 gm/dl (11.8-15.2) L 09/21/20 Unknown Hct 33.2 % (35.5-45.6) L 09/21/20 Unknown MCV 93 fl (84-94) 09/21/20 Unknown MCH 32 pg (28-32) 09/21/20 Unknown MCHC 34 % (32-34) 09/21/20 Unknown RDW 13.8 % (13.2-15.2) 09/21/20 Unknown Plt Count 125 K/mm3 (140-440) L 09/21/20 Unknown Add Manual Diff Complete 09/21/20 Unknown Total Counted 100 09/21/20 Unknown Seg Neutrophils % Grape Grower 09/17/20 10:47 Seg Neuts % (Manual) 90.0 % (40.0-70.0) H 09/21/20 Unknown Lymphocytes % (Manual) 8.0 % (13.4-35.0) L 09/21/20 Unknown Monocytes % (Manual) 2.0 % (0.0-7.3) 09/21/20 Unknown Nucleated RBC % 1.0 % (0.0-0.9) H 09/21/20 Unknown Seg Neutrophils # Man 9.4 K/mm3 (1.8-7.7) H 09/21/20 Unknown Band Neutrophils # 0.0 K/mm3 09/21/20 Unknown Lymphocytes # (Manual) 0.8 K/mm3 (1.2-5.4) L 09/21/20 Unknown Abs React Lymphs (Man) 0.0 K/mm3 09/21/20 Unknown Monocytes # (Manual) 0.2 K/mm3 (0.0-0.8) 09/21/20 Unknown Eosinophils # (Manual) 0.0 K/mm3 (0.0-0.4) 09/21/20 Unknown Basophils # (Manual) 0.0 K/mm3 (0.0-0.1) 09/21/20 Unknown Metamyelocytes # 0.0 K/mm3 09/21/20 Unknown Myelocytes # 0.0 K/mm3 09/21/20 Unknown Promyelocytes # 0.0 K/mm3 09/21/20 Unknown Blast Cells # 0.0 K/mm3 09/21/20 Unknown WBC Morphology Not Reportable 09/21/20 Unknown Hypersegmented Neuts Not Reportable 09/21/20 Unknown Hyposegmented Neuts Not Reportable 09/21/20 Unknown Hypogranular Neuts Not Reportable 09/21/20 Unknown Smudge Cells Not Reportable 09/21/20 Unknown Toxic Granulation Not Reportable 09/21/20 Unknown Toxic Vacuolation Not Reportable 09/21/20 Unknown Dohle Bodies Not Reportable 09/21/20 Unknown Pelger-Huet Anomaly Not Reportable 09/21/20 Unknown Vinh Rods Not Reportable 09/21/20 Unknown Platelet Estimate Consistent w auto 09/21/20 Unknown Clumped Platelets Not Reportable 09/21/20 Unknown Plt Clumps, EDTA Not Reportable 09/21/20 Unknown Large Platelets Not Reportable 09/21/20 Unknown Giant Platelets Not Reportable 09/21/20 Unknown Platelet Satelliting Not Reportable 09/21/20 Unknown Plt Morphology Comment Not Reportable 09/21/20 Unknown RBC Morphology Normal 09/21/20 Unknown Dimorphic RBCs Not Reportable 09/21/20 Unknown Polychromasia Not Reportable 09/21/20 Unknown Hypochromasia Not Reportable 09/21/20 Unknown Poikilocytosis Not Reportable 09/21/20 Unknown Anisocytosis Not Reportable 09/21/20 Unknown Microcytosis Not Reportable 09/21/20 Unknown Macrocytosis Not Reportable 09/21/20 Unknown Spherocytes Not Reportable 09/21/20 Unknown Pappenheimer Bodies Not Reportable 09/21/20 Unknown Sickle Cells Not Reportable 09/21/20 Unknown Target Cells Not Reportable 09/21/20 Unknown Tear Drop Cells Not Reportable 09/21/20 Unknown Ovalocytes Not Reportable 09/21/20 Unknown Helmet Cells Not Reportable 09/21/20 Unknown [place] Bodies Not Reportable 09/21/20 Unknown [place] Rings Not Reportable 09/21/20 Unknown Vita Cells Not Reportable 09/21/20 Unknown Bite Cells Not Reportable 09/21/20 Unknown Crenated Cell Not Reportable 09/21/20 Unknown Elliptocytes Not Reportable 09/21/20 Unknown Acanthocytes (Spur) Not Reportable 09/21/20 Unknown Rouleaux Not Reportable 09/21/20 Unknown Hemoglobin C Crystals Not Reportable 09/21/20 Unknown Schistocytes Not Reportable 09/21/20 Unknown Malaria parasites Not Reportable 09/21/20 Unknown Zachary Bodies Not Reportable 09/21/20 Unknown Hem Pathologist Commnt No 09/21/20 Unknown PT 16.8 Sec. (12.2-14.9) H 09/21/20 Unknown INR 1.36 (0.87-1.13) H 09/21/20 Unknown APTT 40.8 Sec. (24.2-36.6) H 09/18/20 15:07 D-Dimer 4271.58 ng/mlDDU (0-234) H 09/20/20 17:10 Heparin Anti-Xa Level 0.10 U.I./ml (0.3-0.7) L 09/20/20 04:00 ABG pH 7.508 (7.320-7.450) H 09/17/20 10:28 POC ABG pCO2 22.8 mmHg (32.0-48.0) L 09/17/20 10:28 POC ABG pO2 66.8 mmHg (83-108) L 09/17/20 10:28 POC ABG HCO3 17.7 09/17/20 10:28 ABG O2 Saturation 93.4 (0-100) 09/17/20 10:28 POC ABG Base Excess -3.5 09/17/20 10:28 ABG Hemoglobin 12.7 (12.0-17.5) 09/17/20 10:28 ABG Oxyhemoglobin 92.7 (94-98) L 09/17/20 10:28 ABG Methemoglobin 0.3 (0.0-1.5) 09/17/20 10:28 ABG Sodium 127.4 mmol/L (136.0-145.0) L 09/17/20 10:28 ABG Potassium 4.7 mmol/L (3.40-4.50) H 09/17/20 10:28 ABG Chloride 101.0 mmol/L (98-107) 09/17/20 10:28 ABG Glucose 121 mg/dL (65-95) H 09/17/20 10:28 Carboxyhemoglobin 0.4 (0.5-1.5) L 09/17/20 10:28 FiO2 % 21 09/17/20 10:28 Sodium 138 mmol/L (137-145) 09/21/20 Unknown Potassium 4.3 mmol/L (3.6-5.0) 09/21/20 Unknown Chloride 103.7 mmol/L (98-107) 09/21/20 Unknown Carbon Dioxide 22 mmol/L (22-30) 09/21/20 Unknown Anion Gap 17 mmol/L 09/21/20 Unknown BUN 83 mg/dL (9-20) H 09/21/20 Unknown Creatinine 4.3 mg/dL (0.8-1.3) H 09/21/20 Unknown Estimated GFR 17 ml/min 09/21/20 Unknown BUN/Creatinine Ratio 19 % 09/21/20 Unknown Glucose 163 mg/dL (75-100) H 09/21/20 Unknown POC Glucose 170 mg/dL (70-105) H 09/21/20 05:35 Lactic Acid 1.00 mmol/L (0.7-2.0) 09/20/20 17:10 Calcium 9.0 mg/dL (8.4-10.2) 09/21/20 Unknown Phosphorus 6.30 mg/dL (2.5-4.5) H 09/19/20 03:30 Magnesium 1.80 mg/dL (1.7-2.3) 09/17/20 10:47 Ferritin 696.6 ng/mL (30.0-300.0) H 09/20/20 17:10 Total Bilirubin 2.40 mg/dL (0.1-1.2) H 09/21/20 Unknown AST 31 units/L (5-40) 09/21/20 Unknown ALT 57 units/L (7-56) H 09/21/20 Unknown Alkaline Phosphatase < 5 units/L (35-129) L 09/21/20 Unknown Lactate Dehydrogenase 209 units/L (91-180) H 09/20/20 17:10 Total Creatine Kinase 20 units/L (55-170) L 09/19/20 03:30 Troponin T 0.057 ng/mL (0.00-0.029) H 09/17/20 16:36 C-Reactive Protein 10.60 mg/dL (0.00-1.30) H 09/20/20 17:10 NT-Pro-B Natriuret Pep 27813 pg/mL (0-900) H 09/17/20 10:47 Total Protein 6.7 g/dL (6.3-8.2) 09/21/20 Unknown Albumin 1.9 g/dL (3.9-5) L 09/21/20 Unknown Albumin/Globulin Ratio 0.4 % 09/21/20 Unknown Triglycerides 137 mg/dL (2-149) 09/17/20 13:54 Cholesterol 48 mg/dL (50-199) L 09/17/20 13:54 LDL Cholesterol Direct 4 mg/dL (50-130) L 09/17/20 13:54 HDL Cholesterol 9 mg/dL (40-59) L 09/17/20 13:54 Cholesterol/HDL Ratio 5.33 % 09/17/20 13:54 Procalcitonin 23.83 ng/mL (<0.15) 09/20/20 17:10 PTH Intact 161.4 pg/mL (15-65) H 09/19/20 03:30 Arterial Blood Glucose 121 mg/dL (65-95) H 09/17/20 10:28 Arterial Blood Ionized Calcium 5.0 mg/dL (4.6-5.3) 09/17/20 10:28 Urine Color Yellow (Yellow) 09/18/20 12:00 Urine Turbidity Cloudy (Clear) 09/18/20 12:00 Urine pH 5.0 (5.0-7.0) 09/18/20 12:00 Ur Specific [place] 1.009 (1.003-1.030) 09/18/20 12:00 Urine Protein 30 mg/dl mg/dL (Negative) 09/18/20 12:00 Urine Glucose (UA) Neg mg/dL (Negative) 09/18/20 12:00 Urine Ketones Neg mg/dL (Negative) 09/18/20 12:00 Urine Blood Sm (Negative) 09/18/20 12:00 Urine Nitrite Neg (Negative) 09/18/20 12:00 Urine Bilirubin Neg (Negative) 09/18/20 12:00 Urine Urobilinogen < 2.0 mg/dL (<2.0) 09/18/20 12:00 Ur Leukocyte Esterase Mod (Negative) 09/18/20 12:00 Urine WBC (Auto) 71.0 /HPF (0.0-6.0) H 09/18/20 12:00 Urine RBC (Auto) 2.0 /HPF (0.0-6.0) 09/18/20 12:00 U Epithel Cells (Auto) 1.0 /HPF (0-13.0) 09/18/20 12:00 Urine Bacteria (Auto) 4+ /HPF (Negative) 09/18/20 12:00 Urine WBC Clumps 2+ /HPF 09/18/20 12:00 Hyaline Casts 3 /LPF 09/18/20 12:00 Granular Casts 3 /LPF 09/18/20 12:00 Urine Mucus Few /HPF 09/18/20 12:00 Urine Eosinophils None seen (None Seen) 09/19/20 03:15 Urine Creatinine 61.0 mg/dL (0.1-20.0) H 09/18/20 12:00 Urine Sodium 62 mmol/L 09/18/20 12:00 Random Vancomycin 12.7 ug/mL (0-40.0) 09/19/20 03:30 Coronavirus (PCR) Positive (Negative) A 09/18/20 09:39 Hepatitis A IgM Ab Non-reactive (NonReactive) 09/20/20 17:10 Hep Bs Antigen Non-reactive (Negative) 09/20/20 17:10 Hep B Core IgM Ab Non-reactive (NonReactive) 09/20/20 17:10 Hepatitis C Antibody Non-reactive (NonReactive) 09/20/20 17:10 Microbiology: Microbiology 09/18/20 03:19 Peripheral/Venous Blood Culture - Preliminary Escherichia Coli 09/18/20 02:01 Peripheral/Venous Blood Culture - Preliminary Gram Negative Compa 09/18/20 12:00 Urine,Clean Catch Urine Culture - Preliminary Escherichia Coli Gardner/IV: Voiding Method Condom Catheter Active Medications - Current Medications Current Medications: Generic Name Dose Route Start Last Admin Trade Name Freq PRN Reason Stop Dose Admin Acetaminophen 650 mg 09/17/20 13:52 Acetaminophen 325 Mg Tab PO Q4H PRN Pain MILD(1-3)/Fever >100.5/ANGEL Albuterol 2.5 mg 09/17/20 13:52 09/17/20 20:47 Albuterol 2.5 Mg/3 Ml Nebu IH 2.5 mg Q4HRT PRN Administration Shortness Of Breath Lipase/Protease/Amylase 1 each 09/20/20 13:10 Lipase 10,500/Protease 25,000/Amylase 43,750 (Units) Dr Patrick FEEDTUBE PRN PRN For Clogged Feeding Tube Ascorbic Acid 500 mg 09/20/20 22:00 09/21/20 09:37 Ascorbic Acid 500 Mg Tab PO Not Given BID EDIE Cholecalciferol 1,000 unit 09/21/20 10:00 09/21/20 09:37 Cholecalciferol (Vit D3) 1000 Unit (25 Mcg) Tab PO Not Given QDAY EDIE Dexamethasone 6 mg 09/20/20 17:00 09/20/20 17:01 Dexamethasone 4 Mg Tab PO 09/29/20 10:01 6 mg QDAY EDIE Administration Emtricitabine 200 mg 09/20/20 12:00 09/20/20 18:40 Emtricitabine 200 Mg Cap PO 200 mg Q96H EDIE Administration Famotidine 20 mg 09/18/20 16:00 09/21/20 09:37 Famotidine 20 Mg/2 Ml Inj IV 20 mg QDAY EDIE Administration Heparin Sodium (Porcine) 3,000 unit 09/20/20 10:06 Heparin 10,000 Units/10 Ml Vial IV VIRGIL PRN hemodialysis Hydromorphone HCl 0.25 mg 09/17/20 14:50 09/21/20 04:12 Hydromorphone 1 Mg/1 Ml Inj IV 0.25 mg ONCE PRN Administration Pain , Severe (7-10) Amiodarone HCl 900 mg/ 500 mls @ 33.333 mls/hr 09/18/20 12:00 09/20/20 09:58 Dextrose IV 0.5 mg/min DIRECT EDIE 16.667 mls/hr Administration Protocol 1 MG/MIN Norepinephrine 4 mg in 250 mls @ 7.5 mls/hr 09/19/20 11:00 09/21/20 10:00 Levophed Drip 4 Mg/Ns 250 Ml IV 4 mcg/min TITR EDIE 15 mls/hr Titration Protocol 2 MCG/MIN Sodium Chloride 100 mls @ 999 mls/hr 09/20/20 10:06 Nacl 0.9% IV VIRGIL PRN Hypotension Vasopressin 20 unit/ Sodium 101 mls @ 9.09 mls/hr 09/20/20 17:00 09/21/20 04:19 Chloride IV 0.03 units/min TITR EDIE 9.09 mls/hr Administration Protocol 0.03 UNITS/MIN MEROPENEM/NS 1 GRAM/100 ML 1 gram in 100 mls @ 100 mls/hr 09/21/20 13:00 Merrem/Ns 1 Gram/100 Ml IV Q24H [facility] Protocol Metoprolol Tartrate 5 mg 09/19/20 19:06 Metoprolol Tartrate 5 Mg/5 Ml Inj IV Q8HR PRN HR > 135 Minute Ondansetron HCl 4 mg 09/17/20 13:52 Ondansetron 4 Mg/2 Ml Inj IV Q8H PRN Nausea And Vomiting Simple Syrup 15 ml 09/20/20 13:10 Simple Syrup 15 Ml FEEDTUBE PRN PRN Hypoglycemia Simple Syrup 30 ml 09/20/20 13:10 Simple Syrup 15 Ml FEEDTUBE PRN PRN Hypoglycemia Sodium Bicarbonate 325 mg 09/20/20 13:10 Sodium Bicarbonate 325 Mg Tab FEEDTUBE PRN PRN For Clogged Feeding Tube Sodium Chloride 10 ml 09/17/20 22:00 09/21/20 09:09 Sodium Chloride 0.9% 10 Ml Flush Syringe IV Not Given BID EDIE Sodium Chloride 10 ml 09/17/20 13:52 Sodium Chloride 0.9% 10 Ml Flush Syringe IV PRN PRN LINE FLUSH Tenofovir Disoproxil Fumarate 300 mg 09/20/20 22:00 09/20/20 22:25 Tenofovir 300 Mg Tab PO 300 mg Mo EDIE Administration Zinc Sulfate 220 mg 09/21/20 10:00 09/21/20 09:37 Zinc Sulfate 220 Mg Cap PO Not Given QDAY EDIE Nutrition/Malnutrition Assess - Dietary Evaluation Nutrition/Malnutrition Findings: Nutrition Notes Start: 09/18/20 11:30 Freq: Status: Active Protocol: Document 09/20/20 11:12 CW (Rec: 09/20/20 11:31 CW [id number]) Nutrition Notes Need for Assessment generated from: MD Order Initial or Follow up Assessment Current Diagnosis Acute Kidney Injury,Heart Failure Other Pertinent Diagnosis Covid 19 PUI, IN, AMS, cholethiasis Current Diet Renal Cardiac Consistent Carbohydrate Labs/Tests BUN 119 Cr 6.2 Pertinent Medications Lasix Levophed Height 6 ft 1 in Weight 72.3 kg [place] Body Weight (kg) 83.63 BMI 21.0 Weight Status Underweight Subjective/Other Information Per RN, pt is currently NPO for scheduled vas cath. Breakfast tray noted untouched outside of room. Pt did not eat the day prior. RN reports that AMS continues and pt is unable to eat that this time and TF may be warranted if pt unable to eat with feeding assistance. Admendment, 1310: MD consult for TF. Recommend Nepro. Percent of energy/protein needs met: 0%/0% Burn Absent Trauma Absent GI Symptoms Other Current % PO Negligible Minimum of two criteria No physical signs of malnutrition #1 Nutrition Diagnosis Inadequate energy intake Etiology AMS As Evidenced by Signs and Symptoms Pt unable to feed self at this time Is patient on ventilator? No Is Patient Ambulatory and/or Out of Bed No REE-(Roxie-St. Jeor-confined to bed) 1850.100 [facility]culation [facility] Additional Notes protein needs: 58 - 87 g(0.8 - 1.2g/kgBW) fluid needs: 1 ml/kcal Nutrition Intervention Change Diet Order: Initiate TF regimen Nutrition Support: Nepro 1.8 at 45 ml/hr with a free water flush of 200 ml q4h Kcal 1,944 Protein (gm) 87 Fluid (mL) 785 Goal #1 Meet at least 75% of kcal and protein needs Anticipated Discharge Needs: unable to determine at this time Follow-Up By: 09/22/20 Additional Comments F/U TF at goal and tolerance
--- NOTE | 2020-09-21 12:40 | Electrocardiograph Report ---
[facility] Test Date: 2020-09-17 Test Time: 14:41:22 Pat Name: AUBRIE PAYAN Department: Room: A252 Gender: M Mounter Smoking Pipe: RAMONA : 1950 Requested By: RENALDO ENG Order Number: [id number] Reading MD: Yazmin Bales Measurements Intervals [place] Rate: 125 P: SD: QRS: 61 QRSD: 93 T: 42 QT: 335 QTc: 484 Interpretive Statements Rapid atrial fibrillation Low voltage, extremity leads Probable anteroseptal infarct, old Compared to ECG 09/15/2020 06:50:17 Electronically Signed On 09-21-2020 12:40:25 EDT by Yazmin Bales
[2020-09-21] MEDS: DEXAMETHASONE 4 MG TAB PO SCH (13:20)
--- NOTE | 2020-09-21 13:23 | Nuclear Medicine Report ---
NUCLEAR MEDICINE HEPATOBILIARY SCAN INDICATION: cholecystitis. TECHNIQUE: Radiotracer: Tc-99m mebrofenin (by IV): 5.5 mCi. Gallbladder Stimulant: None. FINDINGS: Hepatic activity: Normal. Biliary activity: Normal. Common bile duct activity at 20 minutes. Gallbladder activity: Normal at 30 minutes. Small bowel activity: Not seen throughout 2 hours of imaging which can be a normal finding. CCK was not administered. The patient terminated the procedure at this point due to discomfort. IMPRESSION: No evidence for acute cholecystitis. Signer Name: Ray Suazo Jr, MD Signed: 09/21/2020 1:19 PM Workstation Name: [id number]
[2020-09-21] MEDS: MEROPENEM/NS 1 GRAM/100 ML 1 GRAM/100 ML BAG IV SCH (13:29)
[2020-09-21] MEDS: SODIUM CHLORIDE 0.9% 1000 ML 1,000 ML IV SCH (13:37)
[2020-09-21] MEDS: oxyCODONE 5 MG TAB PO PRN ×2 (13:41→22:57)
--- NOTE | 2020-09-21 14:09 | Vascular Lab Report ---
Bilateral duplex Doppler ultrasound lower extremities INDICATION: Evaluate for DVT FINDINGS: Bilateral common femoral veins, superficial femoral veins and popliteal veins have normal c ompressibility and phasic flow. IMPRESSION: No evidence for DVT. Signer Name: Ebenezer Grijalva MD Signed: 09/21/2020 2:04 PM Workstation Name: [id number]
--- NOTE | 2020-09-21 15:21 | Event Note ---
I updated Phil Pena ( daughter) [phone] on current events and updated her on the HIDA scan results.
--- NOTE | 2020-09-21 15:55 | Progress Note ---
Assessment and Plan Telemetry reviewed A. fib flutter 120s no events A. fib with RVR Optimize rate control regimen. Patient is currently on amiodarone drip at 0.5 mg/min. We will trial 1 mg/min. Of note per chart patient is unable to take p.o. medication. Currently requiring 2 vasopressors. Recommend anticoagulation in setting of atrial fib. No heparin in setting of thrombocytopenia. Patient is on home anticoagulation Xarelto. If no further procedures plans recommend resuming home Xarelto. NSTEMI Troponins are elevated, subacute and nonspecific. Continue to trend CE's Echocardiogram reviewed (09/18/2020): LVEF is 40 to 45%. LV SF is mildly decreased. Mild concentric LVH. RV SF is mildly reduced. No valvular abnormalities. LOLI with acute tubular necrosis Patient for dialysis this a.m. Nephrology is following. No GEMA/ARB in setting of LOLI. Avoid nephrotoxic agents. Patient unable to take p.o. medication. DVT prophylaxis Heparin SQ We will follow This patient was seen in conjunction with Dr Avila who agrees with this assessment and plan of care - Patient Problems (1) AMS (altered mental status) Current Visit: Yes Status: Acute Qualifiers: Altered mental status type: somnolence Qualified Code(s): R40.0 - Somnolence (2) Acute hypoxemic respiratory failure Current Visit: Yes Status: Acute (3) Acute kidney injury (LOLI) with acute tubular necrosis (ATN) Current Visit: Yes Status: Acute (4) Atrial fibrillation with RVR Current Visit: Yes Status: Acute (5) NSTEMI (non-ST elevated myocardial infarction) Current Visit: Yes Status: Acute (6) Metabolic acidosis Current Visit: No Status: Acute (7) Systemic inflammatory response syndrome Current Visit: No Status: Acute Subjective Date of service: 09/21/20 Principal diagnosis: Ac hypoxemic resp failure; A-fib RVR; AE-CHF; LOLI; Septic shock; UTI Interval history: Patient resting comfortably in bed. No chest pain shortness of breath overnight. Telemetry reviewed: A. fib 130s. No events Objective Last Vital Signs Temp 98.9 F 09/21/20 13:30 Pulse 128 H 09/21/20 15:45 Resp 17 09/21/20 15:00 BP 167/116 09/21/20 15:45 Pulse Ox 98 09/21/20 15:00 - Physical Examination General: No Apparent Distress HEENT: Positive: PERRL Neck: Positive: neck supple Cardiac: Positive: irregularly irregular, S1/S2 Lungs: Positive: clear to auscultation, Normal Breath Sounds Neuro: Positive: Grossly Intact Abdomen: Positive: Soft Skin: Negative: Rash, Wound Musculoskeletal: No Pain Extremities: Present: normal. Absent: edema - Labs and Meds Cardiac Enzymes 09/20/20 09/21/20 Range/Units 17:10 Unknown AST 31 (5-40) units/L Lactate Dehydrogenase 209 H (91-180) units/L Coagulation 09/21/20 Range/Units Unknown PT 16.8 H (12.2-14.9) Sec. INR 1.36 H (0.87-1.13) CBC 09/21/20 Range/Units Unknown WBC 10.4 (4.5-11.0) K/mm3 RBC 3.56 L (3.65-5.03) M/mm3 Hgb 11.3 L (11.8-15.2) gm/dl Hct 33.2 L (35.5-45.6) % Plt Count 125 L (140-440) K/mm3 Comprehensive Metabolic Panel 09/20/20 09/21/20 Range/Units 17:10 Unknown Sodium 138 (137-145) mmol/L Potassium 4.3 (3.6-5.0) mmol/L Chloride 103.7 (98-107) mmol/L Carbon Dioxide 22 (22-30) mmol/L BUN 83 H (9-20) mg/dL Creatinine 6.0 H 4.3 H (0.8-1.3) mg/dL Glucose 163 H (75-100) mg/dL Calcium 9.0 (8.4-10.2) mg/dL AST 31 (5-40) units/L ALT 57 H (7-56) units/L Alkaline Phosphatase < 5 L (35-129) units/L Total Protein 6.7 (6.3-8.2) g/dL Albumin 1.9 L (3.9-5) g/dL - Imaging and Cardiology Echo: report reviewed (Echocardiogram reviewed (09/18/2020): LVEF is 40 to 45%. LV SF is mildly decreased. Mild concentric LVH. RV SF is mildly reduced. No valvular abnormality) - Allied health notes Allied health notes reviewed: nursing
[2020-09-21] MEDS ORDERED: METOPROLOL TARTRATE 5 MG/5 ML INJ IV SCH (18:00)
[2020-09-21] MEDS ORDERED: METOPROLOL TARTRATE 25 MG TAB PO SCH (22:00)
[2020-09-22] MEDS: SODIUM CHLORIDE 0.9% 1000 ML 1,000 ML IV SCH (03:15)
[2020-09-22] MEDS: VASOPRESSIN 20 UNIT in SODIUM CHLORIDE 0.9% 100 ML IV SCH ×2 (04:50→17:00)
[2020-09-22] MEDS: AMIODARONE 900 MG in DEXTROSE 5% IN WATER 482 ML IV SCH ×2 (05:15→20:00)
[2020-09-22] MEDS: NORepinephrine/NS 4 MG-250 ML 4 MG/250 ML BAG IV SCH ×3 (05:27→21:38)
[2020-09-22 06:01] LABS: Hemoglobin 10.8 gm/dl (11.8-15.2); Mean Corpuscular HGB Conc 35 % (32-34); Mean Corpuscular Volume 92 fl (84-94); Red Blood Count 3.36 M/mm3 (3.65-5.03); Red Cell Distribution Width 13.5 % (13.2-15.2)
[2020-09-22 06:11] LABS: Platelet Count 68 K/mm3 (140-440)
[2020-09-22 06:13] LABS: Basophils % (Auto) 0.2 % (0.0-1.8); Eosinophils % (Auto) 0.1 % (0.0-4.3); Lymphocytes # (Auto) 0.5 K/mm3 (1.2-5.4); Lymphocytes % (Auto) 3.1 % (13.4-35.0); Monocytes # (Auto) 1.7 K/mm3 (0.0-0.8); Monocytes % (Auto) 10.7 % (0.0-7.3)
[2020-09-22 06:40] LABS: BUN/Creatinine Ratio 20; Blood Urea Nitrogen 61 mg/dL (9-20); Calcium 8.4 mg/dL (8.4-10.2); Hemolysis Index 11
[2020-09-22] MEDS: oxyCODONE 5 MG TAB PO PRN ×3 (07:10→19:55)
--- NOTE | 2020-09-22 08:40 | Progress Note ---
Assessment and Plan - Patient Problems (1) Cholelithiasis Current Visit: Yes Status: Acute Plan to address problem: 1) Cholelithiasis is most probably asymptomatic. 2) No surgery is indicated. 3) I will sign off. Subjective Date of service: 09/21/20 Patient Reports: Positive: no new complaints Objective Vital Signs - 12hr 09/21/20 09/21/20 09/21/20 20:46 21:00 21:16 Temperature Pulse Rate 130 H 128 H 128 H Pulse Rate [ From Monitor] Respiratory 19 21 21 Rate Blood Pressure 147/107 151/110 150/113 O2 Sat by Pulse 97 96 98 Oximetry 09/21/20 09/21/20 09/21/20 21:30 21:46 22:00 Temperature Pulse Rate 134 H 125 H 128 H Pulse Rate [ From Monitor] Respiratory 15 19 17 Rate Blood Pressure 150/113 139/101 160/111 O2 Sat by Pulse 97 98 96 Oximetry 09/21/20 09/21/20 09/21/20 22:16 22:30 22:45 Temperature Pulse Rate 127 H 104 H 118 H Pulse Rate [ From Monitor] Respiratory 14 20 19 Rate Blood Pressure 155/117 155/117 168/108 O2 Sat by Pulse 97 98 98 Oximetry 09/21/20 09/21/20 09/21/20 23:00 23:11 23:15 Temperature Pulse Rate 119 H 124 H 119 H Pulse Rate [ From Monitor] Respiratory 21 18 17 Rate Blood Pressure 145/109 145/109 157/114 O2 Sat by Pulse 97 100 100 Oximetry 09/21/20 09/21/20 09/21/20 23:30 23:43 23:45 Temperature 98.3 F Pulse Rate 124 H 118 H Pulse Rate [ From Monitor] Respiratory 14 17 Rate Blood Pressure 163/106 161/113 O2 Sat by Pulse 100 100 Oximetry 09/22/20 09/22/20 09/22/20 00:00 00:02 00:16 Temperature Pulse Rate 105 H 113 H 108 H Pulse Rate [ 116 H From Monitor] Respiratory 20 14 16 Rate Blood Pressure 103/80 103/80 122/90 O2 Sat by Pulse 100 99 100 Oximetry 09/22/20 09/22/20 09/22/20 00:30 00:46 01:00 Temperature Pulse Rate 114 H 100 H 103 H Pulse Rate [ From Monitor] Respiratory 16 17 17 Rate Blood Pressure 126/99 77/48 100/54 O2 Sat by Pulse 100 100 100 Oximetry 09/22/20 09/22/20 09/22/20 01:15 01:30 01:46 Temperature Pulse Rate 103 H 102 H 111 H Pulse Rate [ From Monitor] Respiratory 16 16 16 Rate Blood Pressure 166/118 150/98 150/98 O2 Sat by Pulse 100 100 100 Oximetry 09/22/20 09/22/20 09/22/20 02:00 02:15 02:30 Temperature Pulse Rate 112 H 106 H 110 H Pulse Rate [ From Monitor] Respiratory 16 16 17 Rate Blood Pressure 150/98 139/107 140/62 O2 Sat by Pulse 100 100 100 Oximetry 09/22/20 09/22/20 09/22/20 02:46 03:00 03:15 Temperature Pulse Rate 119 H 105 H 98 H Pulse Rate [ From Monitor] Respiratory 17 21 17 Rate Blood Pressure 129/64 119/86 123/77 O2 Sat by Pulse 100 100 100 Oximetry 09/22/20 09/22/20 09/22/20 03:30 03:46 03:47 Temperature 98.8 F Pulse Rate 114 H 119 H Pulse Rate [ From Monitor] Respiratory 16 17 Rate Blood Pressure 132/77 83/58 O2 Sat by Pulse 100 100 Oximetry 09/22/20 09/22/20 09/22/20 03:54 04:00 04:16 Temperature Pulse Rate 111 H 106 H 111 H Pulse Rate [ 110 H From Monitor] Respiratory 18 14 18 Rate Blood Pressure 83/58 123/77 87/60 O2 Sat by Pulse 100 100 100 Oximetry 09/22/20 09/22/20 09/22/20 04:30 04:46 05:00 Temperature Pulse Rate 101 H 107 H 97 H Pulse Rate [ From Monitor] Respiratory 16 16 16 Rate Blood Pressure 87/60 125/91 133/98 O2 Sat by Pulse 100 99 100 Oximetry 09/22/20 09/22/20 09/22/20 05:16 05:30 05:45 Temperature Pulse Rate 109 H 100 H 108 H Pulse Rate [ From Monitor] Respiratory 16 13 15 Rate Blood Pressure 131/108 137/103 137/98 O2 Sat by Pulse 100 98 100 Oximetry 09/22/20 09/22/20 09/22/20 06:00 06:16 06:30 Temperature Pulse Rate 121 H 109 H 110 H Pulse Rate [ From Monitor] Respiratory 18 17 17 Rate Blood Pressure 146/97 146/97 137/98 O2 Sat by Pulse 96 90 90 Oximetry 09/22/20 09/22/20 09/22/20 06:46 07:00 07:16 Temperature Pulse Rate 135 H 136 H 157 H Pulse Rate [ From Monitor] Respiratory 17 16 21 Rate Blood Pressure 129/102 149/112 O2 Sat by Pulse 91 92 99 Oximetry 09/22/20 09/22/20 09/22/20 07:19 07:30 07:45 Temperature Pulse Rate 125 H 125 H Pulse Rate [ From Monitor] Respiratory 19 19 Rate Blood Pressure 125/88 130/97 O2 Sat by Pulse 97 98 98 Oximetry 09/22/20 08:00 Temperature 97.4 F L Pulse Rate 131 H Pulse Rate [ 123 H From Monitor] Respiratory 17 Rate Blood Pressure 137/97 O2 Sat by Pulse 99 Oximetry - Abdomen PM_46_EXABD1 4, PM_46_EXABD1 6, PM_46_EXABD1 8 Hernia: none - Labs 09/22/20 05:38 09/22/20 05:38 Diabetes panel 09/21/20 09/22/20 Range/Units Unknown 05:38 Sodium 140 (137-145) mmol/L Potassium 3.9 (3.6-5.0) mmol/L Chloride 104.6 (98-107) mmol/L Carbon Dioxide 24 (22-30) mmol/L BUN 61 H (9-20) mg/dL Creatinine 3.1 H (0.8-1.3) mg/dL Glucose 129 H (75-100) mg/dL Calcium 8.4 (8.4-10.2) mg/dL Alkaline Phosphatase < 5 L (35-129) units/L Calcium panel 09/22/20 Range/Units 05:38 Calcium 8.4 (8.4-10.2) mg/dL Pituitary panel 09/22/20 Range/Units 05:38 Sodium 140 (137-145) mmol/L Potassium 3.9 (3.6-5.0) mmol/L Chloride 104.6 (98-107) mmol/L Carbon Dioxide 24 (22-30) mmol/L BUN 61 H (9-20) mg/dL Creatinine 3.1 H (0.8-1.3) mg/dL Glucose 129 H (75-100) mg/dL Calcium 8.4 (8.4-10.2) mg/dL Adrenal panel 09/21/20 09/22/20 Range/Units Unknown 05:38 Sodium 140 (137-145) mmol/L Potassium 3.9 (3.6-5.0) mmol/L Chloride 104.6 (98-107) mmol/L Carbon Dioxide 24 (22-30) mmol/L BUN 61 H (9-20) mg/dL Creatinine 3.1 H (0.8-1.3) mg/dL Glucose 129 H (75-100) mg/dL Calcium 8.4 (8.4-10.2) mg/dL Alkaline Phosphatase < 5 L (35-129) units/L - Imaging Additional Studies: Hida scan without cystic duct obstruction.
--- NOTE | 2020-09-22 10:24 | Progress Note ---
Assessment and Plan 1. Acute kidney injury: Vasomotor LOLI in the setting of shock. ATN likely. Renal US negative for hydro. Bladder scan 139 ml (09/19). Monitor renal function. Creatinine level is increasing. Renal prognosis is guarded. Avoid nephrotoxic agents. Meds dosage based on GFR. 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 Patient require hemodialysis due to significant decline in the renal function. Hemodialysis: 09/20, 09/21. 2. FEN: Metabolic acidosis, improving, monitor. Monitor volume status and lytes. 3. Acute hypoxic respiratory failure: Covid test positive. Supplemental O2. 4. Acute CHF: Echocardiogram: EF 40-45%. CHF orderset / pathway. Monitor. 5. Atrial fibrillation with RVR: Amio drip. Followed by Cards. 6. Elevated troponin: Trend. Followed by Cards. 7. Coagulopathy: Trend. 8. Shock / Hypotension: Multifactorial, monitor. On Levophed and Vasopressin. 9. Elevated Transaminases: Trend. 10. Metabolic encephalopathy: Monitor. 11. Anemia, POA: Monitor. Subjective: Patient was seen and examined at the bedside. Objective: General appearance: well-developed, appears stated age, no distress, NC O2, NG tube HEENT: ATNC, L pupil dilated Neck: trachea midline Respiratory: bilateral diminished breath sounds Heart: irregular, S1S2, no murmur Gastrointestinal: soft, normoactive bowel sounds, not tender Integumentary: no obvious rash Ext: no edema Neurologic: lethargic, non-verbal, not following any command Subjective Date of service: 09/22/20 Principal diagnosis: Ac hypoxemic resp failure; A-fib RVR; AE-CHF; LOLI; Septic shock; UTI Objective - Vital Signs Vital signs: Vital Signs - 12hr 09/21/20 09/21/20 09/21/20 22:30 22:45 23:00 Temperature Pulse Rate 104 H 118 H 119 H Pulse Rate [ From Monitor] Respiratory 20 19 21 Rate Blood Pressure 155/117 168/108 145/109 O2 Sat by Pulse 98 98 97 Oximetry 09/21/20 09/21/20 09/21/20 23:11 23:15 23:30 Temperature Pulse Rate 124 H 119 H 124 H Pulse Rate [ From Monitor] Respiratory 18 17 14 Rate Blood Pressure 145/109 157/114 163/106 O2 Sat by Pulse 100 100 100 Oximetry 05/09/0809/21/20 09/22/20 23:43 23:45 00:00 Temperature 98.3 F Pulse Rate 118 H 105 H Pulse Rate [ 116 H From Monitor] Respiratory 17 20 Rate Blood Pressure 161/113 103/80 O2 Sat by Pulse 100 100 Oximetry 09/22/20 09/22/20 09/22/20 00:02 00:16 00:30 Temperature Pulse Rate 113 H 108 H 114 H Pulse Rate [ From Monitor] Respiratory 14 16 16 Rate Blood Pressure 103/80 122/90 126/99 O2 Sat by Pulse 99 100 100 Oximetry 09/22/20 09/22/20 09/22/20 00:46 01:00 01:15 Temperature Pulse Rate 100 H 103 H 103 H Pulse Rate [ From Monitor] Respiratory 17 17 16 Rate Blood Pressure 77/48 100/54 166/118 O2 Sat by Pulse 100 100 100 Oximetry 09/22/20 09/22/20 09/22/20 01:30 01:46 02:00 Temperature Pulse Rate 102 H 111 H 112 H Pulse Rate [ From Monitor] Respiratory 16 16 16 Rate Blood Pressure 150/98 150/98 150/98 O2 Sat by Pulse 100 100 100 Oximetry 09/22/20 09/22/20 09/22/20 02:15 02:30 02:46 Temperature Pulse Rate 106 H 110 H 119 H Pulse Rate [ From Monitor] Respiratory 16 17 17 Rate Blood Pressure 139/107 140/62 129/64 O2 Sat by Pulse 100 100 100 Oximetry 09/22/20 09/22/20 09/22/20 03:00 03:15 03:30 Temperature Pulse Rate 105 H 98 H 114 H Pulse Rate [ From Monitor] Respiratory 21 17 16 Rate Blood Pressure 119/86 123/77 132/77 O2 Sat by Pulse 100 100 100 Oximetry 09/22/20 09/22/20 09/22/20 03:46 03:47 03:54 Temperature 98.8 F Pulse Rate 119 H 111 H Pulse Rate [ From Monitor] Respiratory 17 18 Rate Blood Pressure 83/58 83/58 O2 Sat by Pulse 100 100 Oximetry 09/22/20 09/22/20 09/22/20 04:00 04:16 04:30 Temperature Pulse Rate 106 H 111 H 101 H Pulse Rate [ 110 H From Monitor] Respiratory 14 18 16 Rate Blood Pressure 123/77 87/60 87/60 O2 Sat by Pulse 100 100 100 Oximetry 09/22/20 09/22/20 09/22/20 04:46 05:00 05:16 Temperature Pulse Rate 107 H 97 H 109 H Pulse Rate [ From Monitor] Respiratory 16 16 16 Rate Blood Pressure 125/91 133/98 131/108 O2 Sat by Pulse 99 100 100 Oximetry 09/22/20 09/22/20 09/22/20 05:30 05:45 06:00 Temperature Pulse Rate 100 H 108 H 121 H Pulse Rate [ From Monitor] Respiratory 13 15 18 Rate Blood Pressure 137/103 137/98 146/97 O2 Sat by Pulse 98 100 96 Oximetry 09/22/20 09/22/20 09/22/20 06:16 06:30 06:46 Temperature Pulse Rate 109 H 110 H 135 H Pulse Rate [ From Monitor] Respiratory 17 17 17 Rate Blood Pressure 146/97 137/98 129/102 O2 Sat by Pulse 90 90 91 Oximetry 09/22/20 09/22/20 09/22/20 07:00 07:16 07:19 Temperature Pulse Rate 136 H 157 H Pulse Rate [ From Monitor] Respiratory 16 21 Rate Blood Pressure 149/112 O2 Sat by Pulse 92 99 97 Oximetry 09/22/20 09/22/20 09/22/20 07:30 07:45 08:00 Temperature 97.4 F L Pulse Rate 125 H 125 H 131 H Pulse Rate [ 123 H From Monitor] Respiratory 19 19 17 Rate Blood Pressure 125/88 130/97 137/97 O2 Sat by Pulse 98 98 99 Oximetry 09/22/20 09/22/20 09/22/20 08:15 08:30 08:45 Temperature Pulse Rate 129 H 126 H 117 H Pulse Rate [ From Monitor] Respiratory 20 19 19 Rate Blood Pressure 133/91 138/89 141/91 O2 Sat by Pulse 99 99 99 Oximetry 09/22/20 09:00 Temperature Pulse Rate 107 H Pulse Rate [ From Monitor] Respiratory 18 Rate Blood Pressure 141/95 O2 Sat by Pulse 99 Oximetry - Lab 09/22/20 05:38 09/22/20 05:38 Most recent lab results ABG pH 7.508 (7.320-7.450) H 09/17/20 10:28 ABG O2 Saturation 93.4 (0-100) 09/17/20 10:28 Calcium 8.4 mg/dL (8.4-10.2) 09/22/20 05:38 Phosphorus 6.30 mg/dL (2.5-4.5) H 09/19/20 03:30 Magnesium 1.80 mg/dL (1.7-2.3) 09/17/20 10:47 Urine Creatinine 61.0 mg/dL (0.1-20.0) H 09/18/20 12:00 Urine Sodium 62 mmol/L 09/18/20 12:00 Medications & Allergies - Medications Allergies/Adverse Reactions: Allergies No Known Allergies Allergy (Unverified 09/15/20 06:37) Home Medications: Home Medications Medication Instructions Recorded Confirmed Last Taken Type AtorvaSTATin [Lipitor] 20 mg PO QHS 09/18/20 09/18/20 Unknown History Dolutegravir [Tivicay] 50 mg PO DAILY 09/18/20 09/18/20 Unknown History Emtricitabine/Tenofov Alafenam 1 tab PO DAILY 09/18/20 09/18/20 Unknown History [Descovy 200-25 mg (Nf)] Rivaroxaban [Xarelto] 15 mg PO QDAY 09/18/20 09/18/20 Unknown History allopurinoL [Zyloprim] 300 mg PO QDAY 09/18/20 09/18/20 Unknown History carvediloL [Coreg] 25 mg PO BID 09/18/20 09/18/20 Unknown History lisinopriL [Lisinopril] 20 mg PO DAILY 09/18/20 09/18/20 Unknown History Active Medications: Generic Name Dose Route Start Last Admin Trade Name Freq PRN Reason Stop Dose Admin Acetaminophen 650 mg 09/17/20 13:52 Acetaminophen 325 Mg Tab PO Q4H PRN Pain MILD(1-3)/Fever >100.5/ANGEL Albuterol 2.5 mg 09/17/20 13:52 09/17/20 20:47 Albuterol 2.5 Mg/3 Ml Nebu IH 2.5 mg Q4HRT PRN Administration Shortness Of Breath Lipase/Protease/Amylase 1 each 09/20/20 13:10 Lipase 10,500/Protease 25,000/Amylase 43,750 (Units) Dr Patrick FEEDTUBE PRN PRN For Clogged Feeding Tube Ascorbic Acid 500 mg 09/20/20 22:00 09/21/20 21:35 Ascorbic Acid 500 Mg Tab PO 500 mg BID EDIE Administration Cholecalciferol 1,000 unit 09/21/20 10:00 09/21/20 09:37 Cholecalciferol (Vit D3) 1000 Unit (25 Mcg) Tab PO Not Given QDAY EDIE Dexamethasone 6 mg 09/20/20 17:00 09/21/20 13:20 Dexamethasone 4 Mg Tab PO 09/29/20 10:01 6 mg QDAY EDIE Administration Emtricitabine 200 mg 09/20/20 12:00 09/20/20 18:40 Emtricitabine 200 Mg Cap PO 200 mg Q96H EDIE Administration Famotidine 20 mg 09/18/20 16:00 09/21/20 09:37 Famotidine 20 Mg/2 Ml Inj IV 20 mg QDAY EDIE Administration Heparin Sodium (Porcine) 3,000 unit 09/20/20 10:06 Heparin 10,000 Units/10 Ml Vial IV VIRGIL PRN hemodialysis Amiodarone HCl 900 mg/ 500 mls @ 33.333 mls/hr 09/18/20 12:00 09/22/20 05:15 Dextrose IV 1 mg/min DIRECT EDIE 33.333 mls/hr Administration Protocol 1 MG/MIN Norepinephrine 4 mg in 250 mls @ 7.5 mls/hr 09/19/20 11:00 09/22/20 07:25 Levophed Drip 4 Mg/Ns 250 Ml IV 7 mcg/min TITR EDIE 26.25 mls/hr Titration Protocol 2 MCG/MIN Sodium Chloride 100 mls @ 999 mls/hr 09/20/20 10:06 Nacl 0.9% IV VIRGIL PRN Hypotension Vasopressin 20 unit/ Sodium 101 mls @ 9.09 mls/hr 09/20/20 17:00 09/22/20 04:50 Chloride IV 0.03 units/min TITR EDIE 9.09 mls/hr Administration Protocol 0.03 UNITS/MIN MEROPENEM/NS 1 GRAM/100 ML 1 gram in 100 mls @ 100 mls/hr 09/21/20 13:00 0 09/21/20 13:29 Merrem/Ns 1 Gram/100 Ml IV 100 mls/hr Q24H EDIE Administration Protocol Sodium Chloride 1,000 mls @ 75 mls/hr 09/21/20 13:15 09/22/20 03:15 Nacl 0.9% 1000 Ml IV 09/23/20 02:34 75 mls/hr DIRECT EDIE Administration Metoprolol Tartrate 5 mg 09/19/20 19:06 Metoprolol Tartrate 5 Mg/5 Ml Inj IV Q8HR PRN HR > 135 Minute Ondansetron HCl 4 mg 09/17/20 13:52 Ondansetron 4 Mg/2 Ml Inj IV Q8H PRN Nausea And Vomiting Oxycodone HCl 5 mg 09/21/20 13:14 09/22/20 07:10 Oxycodone 5 Mg Tab PO 5 mg Q6H PRN Administration Pain, Moderate (4-6) Simple Syrup 15 ml 09/20/20 13:10 Simple Syrup 15 Ml FEEDTUBE PRN PRN Hypoglycemia Simple Syrup 30 ml 09/20/20 13:10 Simple Syrup 15 Ml FEEDTUBE PRN PRN Hypoglycemia Sodium Bicarbonate 325 mg 09/20/20 13:10 Sodium Bicarbonate 325 Mg Tab FEEDTUBE PRN PRN For Clogged Feeding Tube Sodium Chloride 10 ml 09/17/20 22:00 09/21/20 21:35 Sodium Chloride 0.9% 10 Ml Flush Syringe IV 10 ml BID EDIE Administration Sodium Chloride 10 ml 09/17/20 13:52 Sodium Chloride 0.9% 10 Ml Flush Syringe IV PRN PRN LINE FLUSH Tenofovir Disoproxil Fumarate 300 mg 09/20/20 22:00 09/20/20 22:25 Tenofovir 300 Mg Tab PO 300 mg Mo EDIE Administration Zinc Sulfate 220 mg 09/21/20 10:00 09/21/20 09:37 Zinc Sulfate 220 Mg Cap PO Not Given QDAY EDIE
[2020-09-22] MEDS: DOLUTEGRAVIR 50 MG TAB PO SCH (11:20)
[2020-09-22] MEDS: ZINC SULFATE 220 MG CAP PO SCH (11:21)
[2020-09-22] MEDS: ASCORBIC ACID 500 MG TAB PO SCH ×2 (11:21→21:28)
[2020-09-22] MEDS: CHOLECALCIFEROL (VIT D3) 1000 UNIT (25 mcg) TAB PO SCH (11:21)
[2020-09-22] MEDS: DEXAMETHASONE 4 MG TAB PO SCH (11:21)
[2020-09-22] MEDS: FAMOTIDINE 20 MG/2 ML INJ IV SCH (11:21)
--- NOTE | 2020-09-22 12:23 | Progress Note ---
Assessment and Plan Acute hypoxemic respiratory failure. Atrial fibrillation with rapid ventricular response. Gram negative bacteremia Acute congestive heart failure exacerbation. Acute on chronic kidney injury. Anemia that is microcytic. Coagulopathy appears to be acquired. Respiratory alkalosis. Mild metabolic acidosis. Possible severe sepsis with shock due to a urinary tract infection. Urinary tract infection (i do feel that despite his CHF history he is septic now and with relative IVVD and will benefit from gentle hydration acutely - Heaprinoids stopped - will send HIT assay - Hematology consult placed for thrombocytopenia - complete IVNS @ 75 mls/hr X 2 liters - continue to wean vasopressors for target MAP > 65 mmHg - continue enteral nutrition @ goal rate as tolerated - complete AB's per ID recommendations - continue care as below otherwise; - continue to wean supplemental oxygen for target O2 sat's > 92% acutely - Aspiration precautions - continue bronchodilators with pulmonary hygiene per RT - continue accuchecks with glycemic control per SSI (While critically ill target blood glucose of 140-180 mg/dL; avoid hypoglycemia) - avoid nephrotoxins, renally dose all medications - continue to avoid benzodiazepine's, reduce the possibility of delirium - complete AB's per ID rec's (on Cefepime) - prn analgesia per pain score - Maintenance of sleep-wake cycle, avoid delirium - G.I. & VTE prophylaxis - PT/OT/ROM exercises - continue mobility protocols for pressure ulcer prophylaxis - Monitor hemodynamics closely - continue other care per attending / other consultants - discharge planning ongoing concurrently COVID SPECIFIC INTERVENTIONS - Remdesivir as per ID/Pulmonary developed protocols - systemic steroids for severe COVID-19 infection (on Decadron) - follow repeat COVID tests results - zinc and vitamin C supplementation - Monitor inflammatory markers per facility protocol - ferritin, Ddimer, CRP - therapeutic anticoagulation per system Protocol based on d-dimer and clinical considerations - Continue contact and airborne isolation .... Re-evaluate in am & prn CONDITION: CRITICAL PROGNOSIS: GUARDED CODE STATUS: FULL CODE The high probability of a clinically significant, sudden or life-threatening deterioration of the [respiratory, cardiovascular & neurologic] system(s) req uired my full and direct attention, intervention and personal management. The aggregate critical care time was [35] minutes without overlap. Time includes spent on; [x] Data Review and interpretation [x] Patient assessment and monitoring of vital signs [x] Documentation [x] Medication orders and management Subjective Date of service: 09/22/20 Principal diagnosis: Ac hypoxemic resp failure; A-fib RVR; AE-CHF; LOLI; Septic shock; UTI Interval history: Patient is seen today for: Acute hypoxemic respiratory failure; A-fib with RVR; AE-CHF; LOLI on CKD; Severe sepsis with shock; UTI Seen and examined at bedside; 24hour events reviewed; nursing and respiratory care staff consulted; no adverse overnight events reported to me; resting peacefully in bed; hypotensive still and on vasopressor support; HIDA scan negatiove; AMS is persistent; still with A-fib RVR; no emesis or overt aspiration; no gross bleeding but platelet count has dropped > 50% since admission Objective Vital Signs - 12hr 09/22/20 09/22/20 09/22/20 00:30 00:46 01:00 Temperature Pulse Rate 114 H 100 H 103 H Pulse Rate [ From Monitor] Respiratory 16 17 17 Rate Blood Pressure 126/99 77/48 100/54 O2 Sat by Pulse 100 100 100 Oximetry 09/22/20 09/22/20 09/22/20 01:15 01:30 01:46 Temperature Pulse Rate 103 H 102 H 111 H Pulse Rate [ From Monitor] Respiratory 16 16 16 Rate Blood Pressure 166/118 150/98 150/98 O2 Sat by Pulse 100 100 100 Oximetry 09/22/20 09/22/20 09/22/20 02:00 02:15 02:30 Temperature Pulse Rate 112 H 106 H 110 H Pulse Rate [ From Monitor] Respiratory 16 16 17 Rate Blood Pressure 150/98 139/107 140/62 O2 Sat by Pulse 100 100 100 Oximetry 09/22/20 09/22/20 09/22/20 02:46 03:00 03:15 Temperature Pulse Rate 119 H 105 H 98 H Pulse Rate [ From Monitor] Respiratory 17 21 17 Rate Blood Pressure 129/64 119/86 123/77 O2 Sat by Pulse 100 100 100 Oximetry 09/22/20 09/22/20 09/22/20 03:30 03:46 03:47 Temperature 98.8 F Pulse Rate 114 H 119 H Pulse Rate [ From Monitor] Respiratory 16 17 Rate Blood Pressure 132/77 83/58 O2 Sat by Pulse 100 100 Oximetry 09/22/20 09/22/20 09/22/20 03:54 04:00 04:16 Temperature Pulse Rate 111 H 106 H 111 H Pulse Rate [ 110 H From Monitor] Respiratory 18 14 18 Rate Blood Pressure 83/58 123/77 87/60 O2 Sat by Pulse 100 100 100 Oximetry 09/22/20 09/22/20 09/22/20 04:30 04:46 05:00 Temperature Pulse Rate 101 H 107 H 97 H Pulse Rate [ From Monitor] Respiratory 16 16 16 Rate Blood Pressure 87/60 125/91 133/98 O2 Sat by Pulse 100 99 100 Oximetry 09/22/20 09/22/20 09/22/20 05:16 05:30 05:45 Temperature Pulse Rate 109 H 100 H 108 H Pulse Rate [ From Monitor] Respiratory 16 13 15 Rate Blood Pressure 131/108 137/103 137/98 O2 Sat by Pulse 100 98 100 Oximetry 09/22/20 09/22/20 09/22/20 06:00 06:16 06:30 Temperature Pulse Rate 121 H 109 H 110 H Pulse Rate [ From Monitor] Respiratory 18 17 17 Rate Blood Pressure 146/97 146/97 137/98 O2 Sat by Pulse 96 90 90 Oximetry 09/22/20 09/22/20 09/22/20 06:46 07:00 07:16 Temperature Pulse Rate 135 H 136 H 157 H Pulse Rate [ From Monitor] Respiratory 17 16 21 Rate Blood Pressure 129/102 149/112 O2 Sat by Pulse 91 92 99 Oximetry 09/22/20 09/22/20 09/22/20 07:19 07:30 07:45 Temperature Pulse Rate 125 H 125 H Pulse Rate [ From Monitor] Respiratory 19 19 Rate Blood Pressure 125/88 130/97 O2 Sat by Pulse 97 98 98 Oximetry 09/22/20 09/22/20 09/22/20 08:00 08:15 08:30 Temperature 97.4 F L Pulse Rate 131 H 129 H 126 H Pulse Rate [ 123 H From Monitor] Respiratory 17 20 19 Rate Blood Pressure 137/97 133/91 138/89 O2 Sat by Pulse 99 99 99 Oximetry 09/22/20 09/22/20 09/22/20 08:45 09:00 09:15 Temperature Pulse Rate 117 H 107 H 118 H Pulse Rate [ From Monitor] Respiratory 19 18 19 Rate Blood Pressure 141/91 141/95 143/93 O2 Sat by Pulse 99 99 98 Oximetry 09/22/20 09/22/20 09/22/20 09:30 09:45 10:00 Temperature Pulse Rate 117 H 127 H 129 H Pulse Rate [ From Monitor] Respiratory 18 18 19 Rate Blood Pressure 148/101 136/101 143/98 O2 Sat by Pulse 98 99 99 Oximetry 09/22/20 09/22/20 09/22/20 10:15 10:30 10:45 Temperature Pulse Rate 117 H 122 H 120 H Pulse Rate [ From Monitor] Respiratory 19 19 19 Rate Blood Pressure 145/106 145/95 155/104 O2 Sat by Pulse 99 98 98 Oximetry 09/22/20 09/22/20 09/22/20 11:00 11:16 11:30 Temperature Pulse Rate 119 H 114 H 125 H Pulse Rate [ From Monitor] Respiratory 20 19 19 Rate Blood Pressure 159/99 153/93 145/94 O2 Sat by Pulse 99 99 99 Oximetry 09/22/20 09/22/20 11:46 12:00 Temperature 97.8 F Pulse Rate 129 H 121 H Pulse Rate [ 127 H From Monitor] Respiratory 19 19 Rate Blood Pressure 40/25 40/25 O2 Sat by Pulse 97 99 Oximetry Constitutional: appears uncomfortable, other (elderly male with mildly increased respiratory effort at rest) Eyes: non-icteric ENT: oropharynx moist Neck: supple, no lymphadenopathy, no JVD Effort: mildly labored Ascultation: Bilateral: rhonchi Percussion: Bilateral: not dull Cardiovascular: irregular rhythm Gastrointestinal: normoactive bowel sounds, soft, non-tender, non-distended Integumentary: normal Extremities: no cyanosis, no edema, pulses normal, no ischemia or petechiae Neurologic: non-focal exam (grossly), pupils equal and round, CN II-XII normal, other (delirious) Psychiatric: other (delirious) CBC and BMP: 09/22/20 05:38 09/22/20 05:38 ABG, PT/INR, D-dimer: ABG ABG pH 7.508 (7.320-7.450) H 09/17/20 10:28 POC ABG pCO2 22.8 mmHg (32.0-48.0) L 09/17/20 10:28 POC ABG pO2 66.8 mmHg (83-108) L 09/17/20 10:28 POC ABG HCO3 17.7 09/17/20 10:28 ABG O2 Saturation 93.4 (0-100) 09/17/20 10:28 PT/INR, D-dimer PT 16.8 Sec. (12.2-14.9) H 09/21/20 Unknown INR 1.36 (0.87-1.13) H 09/21/20 Unknown D-Dimer 3281.49 ng/mlDDU (0-234) H 09/22/20 05:38 Abnormal lab findings: Abnormal Labs 09/17/20 09/17/20 09/17/20 10:28 10:47 10:47 WBC 11.1 H RBC 3.44 L Hgb 11.2 L Hct 32.8 L MCV 95 H MCH MCHC Plt Count Lymph % (Auto) [place] % (Auto) Lymph # (Auto) [place] # (Auto) Seg Neutrophils % Seg Neuts % (Manual) Lymphocytes % (Manual) 4.0 L Monocytes % (Manual) Nucleated RBC % Seg Neutrophils # Seg Neutrophils # Man 10.7 H Lymphocytes # (Manual) 0.4 L PT 32.9 H INR 3.16 H APTT 51.1 H D-Dimer Heparin Anti-Xa Level ABG pH 7.508 H POC ABG pCO2 22.8 L POC ABG pO2 66.8 L ABG Oxyhemoglobin 92.7 L ABG Sodium 127.4 L ABG Potassium 4.7 H ABG Glucose 121 H Carboxyhemoglobin 0.4 L Sodium Chloride Carbon Dioxide BUN Creatinine Glucose POC Glucose Calcium Phosphorus Ferritin Total Bilirubin AST ALT Alkaline Phosphatase Lactate Dehydrogenase Total Creatine Kinase Troponin T C-Reactive Protein NT-Pro-B Natriuret Pep Total Protein Albumin Cholesterol LDL Cholesterol Direct HDL Cholesterol PTH Intact Arterial Blood Glucose 121 H Urine WBC (Auto) Urine Creatinine Coronavirus (PCR) 09/17/20 09/17/20 09/17/20 10:47 10:47 13:54 WBC RBC Hgb Hct MCV MCH MCHC Plt Count Lymph % (Auto) [place] % (Auto) Lymph # (Auto) [place] # (Auto) Seg Neutrophils % Seg Neuts % (Manual) Lymphocytes % (Manual) Monocytes % (Manual) Nucleated RBC % Seg Neutrophils # Seg Neutrophils # Man Lymphocytes # (Manual) PT INR APTT D-Dimer Heparin Anti-Xa Level ABG pH POC ABG pCO2 POC ABG pO2 ABG Oxyhemoglobin ABG Sodium ABG Potassium ABG Glucose Carboxyhemoglobin Sodium 125 L Chloride 95.3 L Carbon Dioxide 17 L BUN 64 H Creatinine 4.6 H D Glucose 104 H POC Glucose Calcium Phosphorus Ferritin Total Bilirubin AST 69 H ALT Alkaline Phosphatase Lactate Dehydrogenase Total Creatine Kinase Troponin T 0.061 H D 0.058 H C-Reactive Protein NT-Pro-B Natriuret Pep 20118 H Total Protein Albumin 1.9 L Cholesterol 48 L LDL Cholesterol Direct 4 L HDL Cholesterol 9 L PTH Intact Arterial Blood Glucose Urine WBC (Auto) Urine Creatinine Coronavirus (PCR) 09/17/20 09/17/20 09/17/20 16:36 17:35 17:35 WBC RBC 3.25 L Hgb 10.7 L Hct 31.1 L MCV 96 H MCH 33 H MCHC Plt Count Lymph % (Auto) [place] % (Auto) Lymph # (Auto) [place] # (Auto) Seg Neutrophils % Seg Neuts % (Manual) Lymphocytes % (Manual) Monocytes % (Manual) Nucleated RBC % Seg Neutrophils # Seg Neutrophils # Man Lymphocytes # (Manual) PT 31.9 H INR 3.04 H APTT 50.9 H D-Dimer Heparin Anti-Xa Level ABG pH POC ABG pCO2 POC ABG pO2 ABG Oxyhemoglobin ABG Sodium ABG Potassium ABG Glucose Carboxyhemoglobin Sodium Chloride Carbon Dioxide BUN Creatinine Glucose POC Glucose Calcium Phosphorus Ferritin Total Bilirubin AST ALT Alkaline Phosphatase Lactate Dehydrogenase Total Creatine Kinase Troponin T 0.057 H C-Reactive Protein NT-Pro-B Natriuret Pep Total Protein Albumin Cholesterol LDL Cholesterol Direct HDL Cholesterol PTH Intact Arterial Blood Glucose Urine WBC (Auto) Urine Creatinine Coronavirus (PCR) 09/17/20 09/18/20 09/18/20 17:35 03:19 03:19 WBC RBC 3.32 L Hgb 10.9 L Hct 32.0 L MCV 96 H MCH 33 H MCHC Plt Count 138 L Lymph % (Auto) [place] % (Auto) Lymph # (Auto) [place] # (Auto) Seg Neutrophils % Seg Neuts % (Manual) 95.0 H Lymphocytes % (Manual) 3.0 L Monocytes % (Manual) Nucleated RBC % Seg Neutrophils # Seg Neutrophils # Man 8.1 H Lymphocytes # (Manual) 0.3 L PT INR APTT D-Dimer Heparin Anti-Xa Level ABG pH POC ABG pCO2 POC ABG pO2 ABG Oxyhemoglobin ABG Sodium ABG Potassium ABG Glucose Carboxyhemoglobin Sodium Chloride Carbon Dioxide 16 L BUN 70 H Creatinine 4.6 H 4.7 H Glucose 104 H POC Glucose Calcium 8.2 L Phosphorus Ferritin Total Bilirubin 1.60 H AST 128 H ALT 67 H Alkaline Phosphatase Lactate Dehydrogenase Total Creatine Kinase Troponin T C-Reactive Protein NT-Pro-B Natriuret Pep Total Protein 5.2 L D Albumin 2.5 L Cholesterol LDL Cholesterol Direct HDL Cholesterol PTH Intact Arterial Blood Glucose Urine WBC (Auto) Urine Creatinine Coronavirus (PCR) 09/18/20 09/18/20 09/18/20 09:39 12:00 12:00 WBC RBC Hgb Hct MCV MCH MCHC Plt Count Lymph % (Auto) [place] % (Auto) Lymph # (Auto) [place] # (Auto) Seg Neutrophils % Seg Neuts % (Manual) Lymphocytes % (Manual) Monocytes % (Manual) Nucleated RBC % Seg Neutrophils # Seg Neutrophils # Man Lymphocytes # (Manual) PT INR APTT D-Dimer Heparin Anti-Xa Level ABG pH POC ABG pCO2 POC ABG pO2 ABG Oxyhemoglobin ABG Sodium ABG Potassium ABG Glucose Carboxyhemoglobin Sodium Chloride Carbon Dioxide BUN Creatinine Glucose POC Glucose Calcium Phosphorus Ferritin Total Bilirubin AST ALT Alkaline Phosphatase Lactate Dehydrogenase Total Creatine Kinase Troponin T C-Reactive Protein NT-Pro-B Natriuret Pep Total Protein Albumin Cholesterol LDL Cholesterol Direct HDL Cholesterol PTH Intact Arterial Blood Glucose Urine WBC (Auto) 71.0 H Urine Creatinine 61.0 H Coronavirus (PCR) Positive A 09/18/20 09/18/20 09/18/20 15:07 15:07 18:33 WBC RBC Hgb 10.7 L Hct 31.3 L MCV MCH MCHC Plt Count Lymph % (Auto) [place] % (Auto) Lymph # (Auto) [place] # (Auto) Seg Neutrophils % Seg Neuts % (Manual) Lymphocytes % (Manual) Monocytes % (Manual) Nucleated RBC % Seg Neutrophils # Seg Neutrophils # Man Lymphocytes # (Manual) PT 20.3 H INR 1.73 H APTT 40.8 H D-Dimer Heparin Anti-Xa Level 1.09 H ABG pH POC ABG pCO2 POC ABG pO2 ABG Oxyhemoglobin ABG Sodium ABG Potassium ABG Glucose Carboxyhemoglobin Sodium Chloride Carbon Dioxide BUN Creatinine Glucose POC Glucose Calcium Phosphorus Ferritin Total Bilirubin AST ALT Alkaline Phosphatase Lactate Dehydrogenase Total Creatine Kinase Troponin T C-Reactive Protein NT-Pro-B Natriuret Pep Total Protein Albumin Cholesterol LDL Cholesterol Direct HDL Cholesterol PTH Intact Arterial Blood Glucose Urine WBC (Auto) Urine Creatinine Coronavirus (PCR) 09/19/20 09/19/20 09/19/20 03:30 03:30 03:30 WBC RBC 3.29 L Hgb 10.9 L Hct 30.9 L MCV MCH 33 H MCHC 35 H Plt Count Lymph % (Auto) [place] % (Auto) Lymph # (Auto) [place] # (Auto) Seg Neutrophils % Seg Neuts % (Manual) Lymphocytes % (Manual) Monocytes % (Manual) Nucleated RBC % Seg Neutrophils # Seg Neutrophils # Man Lymphocytes # (Manual) PT INR APTT D-Dimer Heparin Anti-Xa Level ABG pH POC ABG pCO2 POC ABG pO2 ABG Oxyhemoglobin ABG Sodium ABG Potassium ABG Glucose Carboxyhemoglobin Sodium 133 L Chloride Carbon Dioxide 17 L BUN 94 H Creatinine 5.0 H Glucose 120 H POC Glucose Calcium Phosphorus 6.30 H Ferritin Total Bilirubin 2.40 H AST 163 H ALT 109 H Alkaline Phosphatase 160 H Lactate Dehydrogenase Total Creatine Kinase 20 L Troponin T C-Reactive Protein NT-Pro-B Natriuret Pep Total Protein 6.2 L Albumin 2.0 L Cholesterol LDL Cholesterol Direct HDL Cholesterol PTH Intact 161.4 H Arterial Blood Glucose Urine WBC (Auto) Urine Creatinine Coronavirus (PCR) 09/19/20 09/19/20 09/20/20 06:35 23:37 04:00 WBC RBC 3.43 L Hgb 11.1 L Hct 32.2 L MCV MCH MCHC Plt Count 131 L Lymph % (Auto) [place] % (Auto) Lymph # (Auto) [place] # (Auto) Seg Neutrophils % Seg Neuts % (Manual) 88.0 H Lymphocytes % (Manual) 3.0 L Monocytes % (Manual) 9.0 H Nucleated RBC % Seg Neutrophils # Seg Neutrophils # Man 8.2 H Lymphocytes # (Manual) 0.3 L PT INR APTT D-Dimer Heparin Anti-Xa Level ABG pH POC ABG pCO2 POC ABG pO2 ABG Oxyhemoglobin ABG Sodium ABG Potassium ABG Glucose Carboxyhemoglobin Sodium Chloride Carbon Dioxide BUN Creatinine Glucose POC Glucose 123 H 135 H Calcium Phosphorus Ferritin Total Bilirubin AST ALT Alkaline Phosphatase Lactate Dehydrogenase Total Creatine Kinase Troponin T C-Reactive Protein NT-Pro-B Natriuret Pep Total Protein Albumin Cholesterol LDL Cholesterol Direct HDL Cholesterol PTH Intact Arterial Blood Glucose Urine WBC (Auto) Urine Creatinine Coronavirus (PCR) 09/20/20 09/20/20 09/20/20 04:00 04:00 05:37 WBC RBC Hgb Hct MCV MCH MCHC Plt Count Lymph % (Auto) [place] % (Auto) Lymph # (Auto) [place] # (Auto) Seg Neutrophils % Seg Neuts % (Manual) Lymphocytes % (Manual) Monocytes % (Manual) Nucleated RBC % Seg Neutrophils # Seg Neutrophils # Man Lymphocytes # (Manual) PT INR APTT D-Dimer Heparin Anti-Xa Level 0.10 L ABG pH POC ABG pCO2 POC ABG pO2 ABG Oxyhemoglobin ABG Sodium ABG Potassium ABG Glucose Carboxyhemoglobin Sodium Chloride Carbon Dioxide 16 L BUN 119 H Creatinine 6.2 H Glucose 136 H POC Glucose 137 H Calcium Phosphorus Ferritin Total Bilirubin AST ALT Alkaline Phosphatase Lactate Dehydrogenase Total Creatine Kinase Troponin T C-Reactive Protein NT-Pro-B Natriuret Pep Total Protein Albumin Cholesterol LDL Cholesterol Direct HDL Cholesterol PTH Intact Arterial Blood Glucose Urine WBC (Auto) Urine Creatinine Coronavirus (PCR) 09/20/20 09/20/20 09/20/20 11:20 17:10 17:10 WBC RBC Hgb Hct MCV MCH MCHC Plt Count Lymph % (Auto) [place] % (Auto) Lymph # (Auto) [place] # (Auto) Seg Neutrophils % Seg Neuts % (Manual) Lymphocytes % (Manual) Monocytes % (Manual) Nucleated RBC % Seg Neutrophils # Seg Neutrophils # Man Lymphocytes # (Manual) PT INR APTT D-Dimer 4271.58 H Heparin Anti-Xa Level ABG pH POC ABG pCO2 POC ABG pO2 ABG Oxyhemoglobin ABG Sodium ABG Potassium ABG Glucose Carboxyhemoglobin Sodium Chloride Carbon Dioxide BUN Creatinine 6.0 H Glucose POC Glucose 108 H Calcium Phosphorus Ferritin Total Bilirubin AST ALT Alkaline Phosphatase Lactate Dehydrogenase Total Creatine Kinase Troponin T C-Reactive Protein NT-Pro-B Natriuret Pep Total Protein Albumin Cholesterol LDL Cholesterol Direct HDL Cholesterol PTH Intact Arterial Blood Glucose Urine WBC (Auto) Urine Creatinine Coronavirus (PCR) 09/20/20 09/20/20 09/20/20 17:10 17:10 18:21 WBC RBC Hgb Hct MCV MCH MCHC Plt Count Lymph % (Auto) [place] % (Auto) Lymph # (Auto) [place] # (Auto) Seg Neutrophils % Seg Neuts % (Manual) Lymphocytes % (Manual) Monocytes % (Manual) Nucleated RBC % Seg Neutrophils # Seg Neutrophils # Man Lymphocytes # (Manual) PT INR APTT D-Dimer Heparin Anti-Xa Level ABG pH POC ABG pCO2 POC ABG pO2 ABG Oxyhemoglobin ABG Sodium ABG Potassium ABG Glucose Carboxyhemoglobin Sodium Chloride Carbon Dioxide BUN Creatinine Glucose POC Glucose 129 H Calcium Phosphorus Ferritin 696.6 H Total Bilirubin AST ALT Alkaline Phosphatase Lactate Dehydrogenase 209 H Total Creatine Kinase Troponin T C-Reactive Protein 10.60 H NT-Pro-B Natriuret Pep Total Protein Albumin Cholesterol LDL Cholesterol Direct HDL Cholesterol PTH Intact Arterial Blood Glucose Urine WBC (Auto) Urine Creatinine Coronavirus (PCR) 09/20/20 09/21/20 09/21/20 23:14 05:35 17:09 WBC RBC Hgb Hct MCV MCH MCHC Plt Count Lymph % (Auto) [place] % (Auto) Lymph # (Auto) [place] # (Auto) Seg Neutrophils % Seg Neuts % (Manual) Lymphocytes % (Manual) Monocytes % (Manual) Nucleated RBC % Seg Neutrophils # Seg Neutrophils # Man Lymphocytes # (Manual) PT INR APTT D-Dimer Heparin Anti-Xa Level ABG pH POC ABG pCO2 POC ABG pO2 ABG Oxyhemoglobin ABG Sodium ABG Potassium ABG Glucose Carboxyhemoglobin Sodium Chloride Carbon Dioxide BUN Creatinine Glucose POC Glucose 170 H 170 H 140 H Calcium Phosphorus Ferritin Total Bilirubin AST ALT Alkaline Phosphatase Lactate Dehydrogenase Total Creatine Kinase Troponin T C-Reactive Protein NT-Pro-B Natriuret Pep Total Protein Albumin Cholesterol LDL Cholesterol Direct HDL Cholesterol PTH Intact Arterial Blood Glucose Urine WBC (Auto) Urine Creatinine Coronavirus (PCR) 09/21/20 09/21/20 09/21/20 23:18 Unknown Unknown WBC RBC 3.56 L Hgb 11.3 L Hct 33.2 L MCV MCH MCHC Plt Count 125 L Lymph % (Auto) [place] % (Auto) Lymph # (Auto) [place] # (Auto) Seg Neutrophils % Seg Neuts % (Manual) 90.0 H Lymphocytes % (Manual) 8.0 L Monocytes % (Manual) Nucleated RBC % 1.0 H Seg Neutrophils # Seg Neutrophils # Man 9.4 H Lymphocytes # (Manual) 0.8 L PT INR APTT D-Dimer Heparin Anti-Xa Level ABG pH POC ABG pCO2 POC ABG pO2 ABG Oxyhemoglobin ABG Sodium ABG Potassium ABG Glucose Carboxyhemoglobin Sodium Chloride Carbon Dioxide BUN 83 H Creatinine 4.3 H Glucose 163 H POC Glucose 139 H Calcium Phosphorus Ferritin Total Bilirubin 2.40 H AST ALT 57 H Alkaline Phosphatase < 5 L Lactate Dehydrogenase Total Creatine Kinase Troponin T C-Reactive Protein NT-Pro-B Natriuret Pep Total Protein Albumin 1.9 L Cholesterol LDL Cholesterol Direct HDL Cholesterol PTH Intact Arterial Blood Glucose Urine WBC (Auto) Urine Creatinine Coronavirus (PCR) 09/21/20 09/22/20 09/22/20 Unknown 05:38 05:38 WBC 15.8 H RBC 3.36 L Hgb 10.8 L Hct 31.0 L MCV MCH MCHC 35 H Plt Count 68 L Lymph % (Auto) 3.1 L [place] % (Auto) 10.7 H Lymph # (Auto) 0.5 L [place] # (Auto) 1.7 H Seg Neutrophils % 85.9 H Seg Neuts % (Manual) Lymphocytes % (Manual) Monocytes % (Manual) Nucleated RBC % Seg Neutrophils # 13.6 H Seg Neutrophils # Man Lymphocytes # (Manual) PT 16.8 H INR 1.36 H APTT D-Dimer Heparin Anti-Xa Level ABG pH POC ABG pCO2 POC ABG pO2 ABG Oxyhemoglobin ABG Sodium ABG Potassium ABG Glucose Carboxyhemoglobin Sodium Chloride Carbon Dioxide BUN 61 H Creatinine 3.1 H Glucose 129 H POC Glucose Calcium Phosphorus Ferritin Total Bilirubin AST ALT Alkaline Phosphatase Lactate Dehydrogenase 277 H Total Creatine Kinase Troponin T C-Reactive Protein 6.60 H NT-Pro-B Natriuret Pep Total Protein Albumin Cholesterol LDL Cholesterol Direct HDL Cholesterol PTH Intact Arterial Blood Glucose Urine WBC (Auto) Urine Creatinine Coronavirus (PCR) 09/22/20 09/22/20 09/22/20 05:38 05:38 05:44 WBC RBC Hgb Hct MCV MCH MCHC Plt Count Lymph % (Auto) [place] % (Auto) Lymph # (Auto) [place] # (Auto) Seg Neutrophils % Seg Neuts % (Manual) Lymphocytes % (Manual) Monocytes % (Manual) Nucleated RBC % Seg Neutrophils # Seg Neutrophils # Man Lymphocytes # (Manual) PT INR APTT D-Dimer 3281.49 H Heparin Anti-Xa Level ABG pH POC ABG pCO2 POC ABG pO2 ABG Oxyhemoglobin ABG Sodium ABG Potassium ABG Glucose Carboxyhemoglobin Sodium Chloride Carbon Dioxide BUN Creatinine Glucose POC Glucose 112 H Calcium Phosphorus Ferritin 927.8 H Total Bilirubin AST ALT Alkaline Phosphatase Lactate Dehydrogenase Total Creatine Kinase Troponin T C-Reactive Protein NT-Pro-B Natriuret Pep Total Protein Albumin Cholesterol LDL Cholesterol Direct HDL Cholesterol PTH Intact Arterial Blood Glucose Urine WBC (Auto) Urine Creatinine Coronavirus (PCR) 09/22/20 11:26 WBC RBC Hgb Hct MCV MCH MCHC Plt Count Lymph % (Auto) [place] % (Auto) Lymph # (Auto) [place] # (Auto) Seg Neutrophils % Seg Neuts % (Manual) Lymphocytes % (Manual) Monocytes % (Manual) Nucleated RBC % Seg Neutrophils # Seg Neutrophils # Man Lymphocytes # (Manual) PT INR APTT D-Dimer Heparin Anti-Xa Level ABG pH POC ABG pCO2 POC ABG pO2 ABG Oxyhemoglobin ABG Sodium ABG Potassium ABG Glucose Carboxyhemoglobin Sodium Chloride Carbon Dioxide BUN Creatinine Glucose POC Glucose 131 H Calcium Phosphorus Ferritin Total Bilirubin AST ALT Alkaline Phosphatase Lactate Dehydrogenase Total Creatine Kinase Troponin T C-Reactive Protein NT-Pro-B Natriuret Pep Total Protein Albumin Cholesterol LDL Cholesterol Direct HDL Cholesterol PTH Intact Arterial Blood Glucose Urine WBC (Auto) Urine Creatinine Coronavirus (PCR) Chest x-ray: other (none today) Allied health notes reviewed: nursing
--- NOTE | 2020-09-22 12:23 | Progress Note ---
Assessment and Plan Telemetry reviewed A. fib flutter 120s no events A. fib with RVR Optimize rate control regimen. Patient is currently on amiodarone drip at 0.5 mg/min. We will trial 1 mg/min. Currently requiring multiple vasopressors to maintain hemostasis thus unable to tolerate AV leno blocking agents. Initiate Eliquis 5 mg twice daily, dose reviewed with pharmacy in setting of LOLI with tubular necrosis Thrombocytopenia Continue to trend CBC. NSTEMI Troponins elevated, subacute and nonspecific over the weekend. Suspect lab error. Repeat troponins are normal. Echocardiogram reviewed (09/18/2020): LVEF is 40 to 45%. LV SF is mildly decreased. Mild concentric LVH. RV SF is mildly reduced. No valvular abnormalities. LOLI with acute tubular necrosis Patient on dialysis. Nephrology is following. No GEMA/ARB in setting of LOLI. Avoid nephrotoxic agents. Patient unable to take p.o. medication. DVT prophylaxis Anticoagulated on Eliquis 2.5 mg twice a day We will follow This patient was seen in conjunction with Dr Avila who agrees with this assessment and plan of care - Patient Problems (1) AMS (altered mental status) Current Visit: Yes Status: Acute Qualifiers: Altered mental status type: somnolence Qualified Code(s): R40.0 - Somnolence (2) Acute hypoxemic respiratory failure Current Visit: Yes Status: Acute (3) Acute kidney injury (LOLI) with acute tubular necrosis (ATN) Current Visit: Yes Status: Acute (4) Atrial fibrillation with RVR Current Visit: Yes Status: Acute (5) NSTEMI (non-ST elevated myocardial infarction) Current Visit: Yes Status: Acute (6) Metabolic acidosis Current Visit: No Status: Acute (7) Systemic inflammatory response syndrome Current Visit: No Status: Acute Subjective Date of service: 09/22/20 Principal diagnosis: Ac hypoxemic resp failure; A-fib RVR; AE-CHF; LOLI; Septic shock; UTI Interval history: Patient resting comfortably in bed. No chest pain shortness of breath overnight. Telemetry reviewed: A. fib 110s to 120s. No events Objective Last Vital Signs Temp 97.8 F 09/22/20 12:00 Pulse 127 H 09/22/20 12:00 Resp 19 09/22/20 12:00 BP 40/25 09/22/20 12:00 Pulse Ox 100 09/22/20 12:00 - Physical Examination General: No Apparent Distress HEENT: Positive: PERRL Neck: Positive: neck supple Cardiac: Positive: irregularly irregular, S1/S2 Lungs: Positive: Normal Breath Sounds Neuro: Positive: Grossly Intact Abdomen: Positive: Soft Skin: Negative: Rash, Wound Musculoskeletal: No Pain Extremities: Present: normal. Absent: edema - Labs and Meds Cardiac Enzymes 09/22/20 Range/Units 05:38 Lactate Dehydrogenase 277 H (91-180) units/L CBC 09/22/20 Range/Units 05:38 WBC 15.8 H (4.5-11.0) K/mm3 RBC 3.36 L (3.65-5.03) M/mm3 Hgb 10.8 L (11.8-15.2) gm/dl Hct 31.0 L (35.5-45.6) % Plt Count 68 L (140-440) K/mm3 Lymph # (Auto) 0.5 L (1.2-5.4) K/mm3 [place] # (Auto) 1.7 H (0.0-0.8) K/mm3 Eos # (Auto) 0.0 (0.0-0.4) K/mm3 Baso # (Auto) 0.0 (0.0-0.1) K/mm3 Comprehensive Metabolic Panel 09/22/20 Range/Units 05:38 Sodium 140 (137-145) mmol/L Potassium 3.9 (3.6-5.0) mmol/L Chloride 104.6 (98-107) mmol/L Carbon Dioxide 24 (22-30) mmol/L BUN 61 H (9-20) mg/dL Creatinine 3.1 H (0.8-1.3) mg/dL Glucose 129 H (75-100) mg/dL Calcium 8.4 (8.4-10.2) mg/dL - Imaging and Cardiology EKG: report reviewed, image reviewed Echo: report reviewed (Echocardiogram reviewed (09/18/2020): LVEF is 40 to 45%. LV SF is mildly decreased. Mild concentric LVH. RV SF is mildly reduced. No valvular abnormality) - Telemetry EKG Rhythm: Atrial Fibrillation - EKG Supraventricular dysrhythmia: atrial fibrillation - Allied health notes Allied health notes reviewed: nursing
[2020-09-22] MEDS: MEROPENEM/NS 1 GRAM/100 ML 1 GRAM/100 ML BAG IV SCH (12:32)
[2020-09-22] MEDS: MIDODRINE 5 MG TAB PO SCH ×2 (12:33→15:41)
--- NOTE | 2020-09-22 12:41 | Progress Note ---
Assessment and Plan Cultures: 09/18/2020 COVID-19 PCR: Positive 09/18/2020 blood culture: E.coli 09/18/2020 Urine culture: E.coli Assessment: 70-year-old male with history of HIV infection (unknown CD4/VL/ART compliance), hypertension, atrial fibrillation on Xarelto, initially admitted on 09/15/2020 RVR A. fib, LOLI, left AMA, came back to the ED on 09/17/2020 secondary to worsening shortness of breath for 3 days: #Severe sepsis with septic shock: likely secondary to E.coli bacteremia ?from UTI. HIDA scan negative for acute cholecystitis #E.coli bacteremia: Likely from UTI. RUQ US did show a large GB stone. Labs in itially with elevated LFTs and bilirubin. HIDA negative #UTI: Urinalysis with 71 WBCs and moderate leukocyte esterase. Urine culture with E.coli #COVID-19: PCR positive. On supplemental oxygen. Agree with steroids. #LOLI: Likely due to sepsis. On HD. #Acute respiratory hypoxic failure: on NC. #HIV: listed meds are Descovy + Tivicay. Status unknown. #Acute encephalopathy: ?multifactorial. Recommendations: -Meropenem discontinued -IV ceftriaxone 2 g daily -COVID positive, agree with steroids (not on remdesivir due to renal failure) -Follow-up HIV RNA PCR, viral load -continue renally dosed antiretroviral therapy: TDF + FTC + DTG Pat Rae MD, FACP [facility] ([facility]) O: [phone] F: [phone] Subjective Date of service: 09/22/20 Principal diagnosis: Ac hypoxemic resp failure; A-fib RVR; AE-CHF; LOLI; Septic shock; UTI Interval history: No fever. On nasal cannula. COVID-19 PCR came positive. Remains on pressors.No fever. Tachycardic. On oxygen via nasal cannula. Remains on pressors. HIDA scan negative for acute cholecystitis Objective - Exam Narrative Exam: Physical Exam (reviewed in chart to minimize risk of transmission) Constitutional: deferred Head, Ears, Nose: deferred Eyes: deferred Neck: deferred Oral: deferred Cardiovascular: deferred Respiratory: deferred GI: deferred Musculoskeletal: deferred Skin: deferred Hem/Lymphatic: deferred Psych: deferred Neurological: deferred - Constitutional Vitals: Vital Signs Temp Pulse Resp BP Pulse Ox 97.8 F 127 H 19 40/25 100 09/22/20 12:00 09/22/20 12:00 09/22/20 12:00 09/22/20 12:00 09/22/20 12:00 Temperature -Last 24 Hours Temperature 97.8 F Temperature 97.4 F Temperature 98.8 F Temperature 98.3 F Temperature 98.5 F Temperature 98.0 F Temperature 98.0 F Temperature 98.9 F - Labs CBC & Chem 7: 09/22/20 05:38 09/22/20 05:38 Labs: Abnormal lab results 09/21/20 09/21/20 09/22/20 Range/Units 17:09 23:18 05:38 WBC 15.8 H (4.5-11.0) K/mm3 RBC 3.36 L (3.65-5.03) M/mm3 Hgb 10.8 L (11.8-15.2) gm/dl Hct 31.0 L (35.5-45.6) % MCHC 35 H (32-34) % Plt Count 68 L (140-440) K/mm3 Lymph % (Auto) 3.1 L (13.4-35.0) % [place] % (Auto) 10.7 H (0.0-7.3) % Lymph # (Auto) 0.5 L (1.2-5.4) K/mm3 [place] # (Auto) 1.7 H (0.0-0.8) K/mm3 Seg Neutrophils % 85.9 H (40.0-70.0) % Seg Neutrophils # 13.6 H (1.8-7.7) K/mm3 D-Dimer (0-234) ng/mlDDU BUN (9-20) mg/dL Creatinine (0.8-1.3) mg/dL Glucose (75-100) mg/dL POC Glucose 140 H 139 H (70-105) mg/dL Ferritin (30.0-300.0) ng/mL Lactate Dehydrogenase (91-180) units/L C-Reactive Protein (0.00-1.30) mg/dL 09/22/20 09/22/20 09/22/20 Range/Units 05:38 05:38 05:38 WBC (4.5-11.0) K/mm3 RBC (3.65-5.03) M/mm3 Hgb (11.8-15.2) gm/dl Hct (35.5-45.6) % MCHC (32-34) % Plt Count (140-440) K/mm3 Lymph % (Auto) (13.4-35.0) % [place] % (Auto) (0.0-7.3) % Lymph # (Auto) (1.2-5.4) K/mm3 [place] # (Auto) (0.0-0.8) K/mm3 Seg Neutrophils % (40.0-70.0) % Seg Neutrophils # (1.8-7.7) K/mm3 D-Dimer 3281.49 H (0-234) ng/mlDDU BUN 61 H (9-20) mg/dL Creatinine 3.1 H (0.8-1.3) mg/dL Glucose 129 H (75-100) mg/dL POC Glucose (70-105) mg/dL Ferritin 927.8 H (30.0-300.0) ng/mL Lactate Dehydrogenase 277 H (91-180) units/L C-Reactive Protein 6.60 H (0.00-1.30) mg/dL 09/22/20 09/22/20 Range/Units 05:44 11:26 WBC (4.5-11.0) K/mm3 RBC (3.65-5.03) M/mm3 Hgb (11.8-15.2) gm/dl Hct (35.5-45.6) % MCHC (32-34) % Plt Count (140-440) K/mm3 Lymph % (Auto) (13.4-35.0) % [place] % (Auto) (0.0-7.3) % Lymph # (Auto) (1.2-5.4) K/mm3 [place] # (Auto) (0.0-0.8) K/mm3 Seg Neutrophils % (40.0-70.0) % Seg Neutrophils # (1.8-7.7) K/mm3 D-Dimer (0-234) ng/mlDDU BUN (9-20) mg/dL Creatinine (0.8-1.3) mg/dL Glucose (75-100) mg/dL POC Glucose 112 H 131 H (70-105) mg/dL Ferritin (30.0-300.0) ng/mL Lactate Dehydrogenase (91-180) units/L C-Reactive Protein (0.00-1.30) mg/dL
[2020-09-22] MEDS ORDERED: cefTRIAXone/NS 2 GM/100 ML 2 GM/100 ML BAG IV SCH (13:00)
--- NOTE | 2020-09-22 13:17 | Progress Note ---
Assessment and Plan Assessment and plan: This is 70-year-old male with HIV, HTN, and atrial fibrillation (currently on therapeutic anticoagulation with Xarelto) admitted with atrial fibrillation with RVR, SIRs, metabolic acidosis, acute kidney injury, acute hypoxic respiratory failure, hypotension, and CHF Septic Shock Acute hypoxemic respiratory failure 2/2 to volume overload/chf exacerbation Acute systolic heart failure exacerbation Atrial fibrillation with RVR Acute on chronic kidney injury Hypotension Anemia Thrombocytopenia E coli bacteremia E. coli urinary tract infection NSTEMI Elevated Ddimer Leukocytosis HIV, unknown status HTN Coagulopathy Transaminitis -Cardiology, CCM, Nephrology, ID, general surgery, heme/onc consulted, appreciate recommendations -09/20 COVID-19 PCR positive -Droplet/isolation precautions -Dexamethasone 6 mg p.o. (09/20-09/30) -Vitamin D, vitamin C, zinc -Vasopressor support with levophed and vasopressin, midodrine -09/17 CXR shows borderline heart size, mild central pulmonary venous congestion -09/17 renal ultrasound shows no acute findings -09/18 echocardiogram shows left ventricle systolic function mildly decreased, LVEF of 40 to 45% with mild concentric left ventricle hypertrophy, trace MR, mild TR, trace OR -09/19 abdominal ultrasound shows large gallstone within the gallbladder, no pericholecystic fluid, gallbladder wall upper limits of normal measuring 3 mm -09/21 HIDA scan shows no evidence of acute cholecystitis -09/21 BLE Dopplar US no evidence for DVT -09/17 proBNP 39823 -S/p IV Lasix twice daily -09/20 nephrology initiated the patient on dialysis -Pulmonary hygiene -Bipap qhs -IV amiodarone -HIV meds per ID -IV abx therapy -HIT pending -Trend CBC, BMP, LFTs DVT/GI prophylaxis: PPI, SCDs to bilateral lower extremities while in bed, systemic anticoagulation with Eliquis per cardiology Disposition: ICU The high probability of a clinically significant, sudden or life threatening deterioration of the [multi] system(s) required my full and direct attention, intervention and personal management. The aggregate critical care time was [35] minutes. This time is in addition to time spent performing reported procedures but includes the following: [x] Data Review and interpretation [x] Patient assessment and monitoring of vital signs [x] Documentation [x] Medication orders and management History Interval history: This is 70-year-old male with HIV, HTN, and atrial fibrillation (currently on therapeutic anticoagulation with Xarelto) presents the emergency department on 09/17 with complaints of shortness of breath over the past 3 days and on arrival of EMS patient was found to have a pulse oximetry of 85% on room air. He was placed on supplemental oxygenation. Of note patient was admitted on 09/15 with similar complaints and found to have A. fib with RVR, hyponatremia, hypomagnesemia and acute kidney injury and left AMA. He was admitted to the hospital service with atrial fibrillation with RVR, SIRs, metabolic acidosis, acute kidney injury, acute hypoxic respiratory failure, hypotension, and CHF . Cardiology, CCM and nephrology were consulted. 09/18/2020. Await echocardiogram to assess for diastolic versus systolic tori ology. Patient with elevated BNP greater than 18,000. Patient apparently was admitted approximately 3 days ago but left AMA. Cardiology consulted for heart failure, A. fib with RVR and elevated troponin. Patient denies chest pain. Also, patient with elevated creatinine of 4.7 with creatinine 2.8 on recent admission. We do not have a previous creatinine as a baseline to compare. Nephrology consultation pending. Follow-up renal ultrasound. Patient with coagulopathy and INR 3.04. Unsure if patient was on anticoagulation for A. fib. 09/19/2020. Patient likely with vasomotor acute kidney injury in the setting of shock. Follow-up urine studies and renal ultrasound. Creatinine continues to worsen. Nephrology following. Etiology of respiratory failure secondary to heart failure with Covid testing pending. Elevated troponin suggestive of NSTEMI. Continue diuresis with Lasix. Continue IV amiodarone for rate control of A. fib with RVR. Continue heparin. Follow-up echocardiogram. Cardiology following. 09/20/2020: This time my examination patient was on BiPAP therapy and now is on nasal cannula. Patient remains on amiodarone drip with heart rate in the 130s to 140s and vasopressor support with Levophed. Today nephrology will initiate hemodialysis given worsening renal function studies and has stopped diuresis with Lasix. ID resumed antiretroviral therapy and ordered a HIDA scan. Today the patient received a temporary Vas-Cath and is COVID-19 PCR resulted as positive. Patient will be started on vitamin C, vitamin D and zinc and dexamethasone given need for supplemental oxygenation. 09/21: Ecoli UTI and bacteremia and ID has changed him to meropenem, Patient received HD yesterday and patient remains on amiodarone drip. He is off the floor to obtain a HIDA scan. 09/22: HIDA scan did not show acute cholecystitis. Ecoli bacteremia is sensitive to ceftriaxone and ID changed his abx. Mentation is better. BP is liable. Remains on levophed and vasopressin. We started midodrine. HIT panel pending and hem/onc consulted. Hospitalist Physical - Constitutional Vitals: Temp Pulse Resp BP Pulse Ox 97.8 F 116 H 21 160/111 100 09/22/20 12:00 09/22/20 13:00 09/22/20 13:00 09/22/20 13:00 09/22/20 13:00 General appearance: Present: no acute distress - EENT ENT: poor dentition - Neck Neck: Present: normal ROM. Absent: masses or JVD, cervical LAD - Respiratory Respiratory effort: normal Respiratory: bilateral: CTA, diminished - Cardiovascular Rhythm: irregularly irregular Heart Sounds: Present: S1 & S2. Absent: systolic murmur, diastolic murmur - Extremities Extremities: no ischemia, pulses intact, pulses symmetrical, normal temperature, normal color Peripheral Pulses: within normal limits - Abdominal General gastrointestinal: soft, non-tender, non-distended, normal bowel sounds - Integumentary Integumentary: Present: warm, dry - Psychiatric Psychiatric: cooperative, other (Intermittently follows commands) - Allied Health Allied health notes reviewed: nursing, RT HEART Score - HEART Score Troponin: Troponin T < 0.010 ng/mL (0.00-0.029) 09/22/20 05:38 Results - Labs CBC & Chem 7: 09/22/20 05:38 09/22/20 15:12 Labs: Laboratory Last Values WBC 15.8 K/mm3 (4.5-11.0) H 09/22/20 05:38 RBC 3.36 M/mm3 (3.65-5.03) L 09/22/20 05:38 Hgb 10.8 gm/dl (11.8-15.2) L 09/22/20 05:38 Hct 31.0 % (35.5-45.6) L 09/22/20 05:38 MCV 92 fl (84-94) 09/22/20 05:38 MCH 32 pg (28-32) 09/22/20 05:38 MCHC 35 % (32-34) H 09/22/20 05:38 RDW 13.5 % (13.2-15.2) 09/22/20 05:38 Plt Count 68 K/mm3 (140-440) L 09/22/20 05:38 Lymph % (Auto) 3.1 % (13.4-35.0) L 09/22/20 05:38 [place] % (Auto) 10.7 % (0.0-7.3) H 09/22/20 05:38 Eos % (Auto) 0.1 % (0.0-4.3) 09/22/20 05:38 Baso % (Auto) 0.2 % (0.0-1.8) 09/22/20 05:38 Lymph # (Auto) 0.5 K/mm3 (1.2-5.4) L 09/22/20 05:38 [place] # (Auto) 1.7 K/mm3 (0.0-0.8) H 09/22/20 05:38 Eos # (Auto) 0.0 K/mm3 (0.0-0.4) 09/22/20 05:38 Baso # (Auto) 0.0 K/mm3 (0.0-0.1) 09/22/20 05:38 Add Manual Diff Complete 09/21/20 Unknown Total Counted 100 09/21/20 Unknown Seg Neutrophils % 85.9 % (40.0-70.0) H 09/22/20 05:38 Seg Neuts % (Manual) 90.0 % (40.0-70.0) H 09/21/20 Unknown Lymphocytes % (Manual) 8.0 % (13.4-35.0) L 09/21/20 Unknown Monocytes % (Manual) 2.0 % (0.0-7.3) 09/21/20 Unknown Nucleated RBC % 1.0 % (0.0-0.9) H 09/21/20 Unknown Seg Neutrophils # 13.6 K/mm3 (1.8-7.7) H 09/22/20 05:38 Seg Neutrophils # Man 9.4 K/mm3 (1.8-7.7) H 09/21/20 Unknown Band Neutrophils # 0.0 K/mm3 09/21/20 Unknown Lymphocytes # (Manual) 0.8 K/mm3 (1.2-5.4) L 09/21/20 Unknown Abs React Lymphs (Man) 0.0 K/mm3 09/21/20 Unknown Monocytes # (Manual) 0.2 K/mm3 (0.0-0.8) 09/21/20 Unknown Eosinophils # (Manual) 0.0 K/mm3 (0.0-0.4) 09/21/20 Unknown Basophils # (Manual) 0.0 K/mm3 (0.0-0.1) 09/21/20 Unknown Metamyelocytes # 0.0 K/mm3 09/21/20 Unknown Myelocytes # 0.0 K/mm3 09/21/20 Unknown Promyelocytes # 0.0 K/mm3 09/21/20 Unknown Blast Cells # 0.0 K/mm3 09/21/20 Unknown WBC Morphology Not Reportable 09/21/20 Unknown Hypersegmented Neuts Not Reportable 09/21/20 Unknown Hyposegmented Neuts Not Reportable 09/21/20 Unknown Hypogranular Neuts Not Reportable 09/21/20 Unknown Smudge Cells Not Reportable 09/21/20 Unknown Toxic Granulation Not Reportable 09/21/20 Unknown Toxic Vacuolation Not Reportable 09/21/20 Unknown Dohle Bodies Not Reportable 09/21/20 Unknown Pelger-Huet Anomaly Not Reportable 09/21/20 Unknown Vinh Rods Not Reportable 09/21/20 Unknown Platelet Estimate Consistent w auto 09/21/20 Unknown Clumped Platelets Not Reportable 09/21/20 Unknown Plt Clumps, EDTA Not Reportable 09/21/20 Unknown Large Platelets Not Reportable 09/21/20 Unknown Giant Platelets Not Reportable 09/21/20 Unknown Platelet Satelliting Not Reportable 09/21/20 Unknown Plt Morphology Comment Not Reportable 09/21/20 Unknown RBC Morphology Normal 09/21/20 Unknown Dimorphic RBCs Not Reportable 09/21/20 Unknown Polychromasia Not Reportable 09/21/20 Unknown Hypochromasia Not Reportable 09/21/20 Unknown Poikilocytosis Not Reportable 09/21/20 Unknown Anisocytosis Not Reportable 09/21/20 Unknown Microcytosis Not Reportable 09/21/20 Unknown Macrocytosis Not Reportable 09/21/20 Unknown Spherocytes Not Reportable 09/21/20 Unknown Pappenheimer Bodies Not Reportable 09/21/20 Unknown Sickle Cells Not Reportable 09/21/20 Unknown Target Cells Not Reportable 09/21/20 Unknown Tear Drop Cells Not Reportable 09/21/20 Unknown Ovalocytes Not Reportable 09/21/20 Unknown Helmet Cells Not Reportable 09/21/20 Unknown Lazo-[place] Bodies Not Reportable 09/21/20 Unknown Heth Rings Not Reportable 09/21/20 Unknown [place] Cells Not Reportable 09/21/20 Unknown Bite Cells Not Reportable 09/21/20 Unknown Crenated Cell Not Reportable 09/21/20 Unknown Elliptocytes Not Reportable 09/21/20 Unknown Acanthocytes (Spur) Not Reportable 09/21/20 Unknown Rouleaux Not Reportable 09/21/20 Unknown Hemoglobin C Crystals Not Reportable 09/21/20 Unknown Schistocytes Not Reportable 09/21/20 Unknown Malaria parasites Not Reportable 09/21/20 Unknown Zachary Bodies Not Reportable 09/21/20 Unknown Hem Pathologist Commnt No 09/21/20 Unknown PT 16.8 Sec. (12.2-14.9) H 09/21/20 Unknown INR 1.36 (0.87-1.13) H 09/21/20 Unknown APTT 40.8 Sec. (24.2-36.6) H 09/18/20 15:07 D-Dimer 3281.49 ng/mlDDU (0-234) H 09/22/20 05:38 Heparin Anti-Xa Level 0.10 U.I./ml (0.3-0.7) L 09/20/20 04:00 ABG pH 7.508 (7.320-7.450) H 09/17/20 10:28 POC ABG pCO2 22.8 mmHg (32.0-48.0) L 09/17/20 10:28 POC ABG pO2 66.8 mmHg (83-108) L 09/17/20 10:28 POC ABG HCO3 17.7 09/17/20 10:28 ABG O2 Saturation 93.4 (0-100) 09/17/20 10:28 POC ABG Base Excess -3.5 09/17/20 10:28 ABG Hemoglobin 12.7 (12.0-17.5) 09/17/20 10:28 ABG Oxyhemoglobin 92.7 (94-98) L 09/17/20 10:28 ABG Methemoglobin 0.3 (0.0-1.5) 09/17/20 10:28 ABG Sodium 127.4 mmol/L (136.0-145.0) L 09/17/20 10:28 ABG Potassium 4.7 mmol/L (3.40-4.50) H 09/17/20 10:28 ABG Chloride 101.0 mmol/L (98-107) 09/17/20 10:28 ABG Glucose 121 mg/dL (65-95) H 09/17/20 10:28 Carboxyhemoglobin 0.4 (0.5-1.5) L 09/17/20 10:28 FiO2 % 09/17/20 10:28 Sodium 140 mmol/L (137-145) 09/22/20 05:38 Potassium 3.9 mmol/L (3.6-5.0) 09/22/20 05:38 Chloride 104.6 mmol/L (98-107) 09/22/20 05:38 Carbon Dioxide 24 mmol/L (22-30) 09/22/20 05:38 Anion Gap 15 mmol/L 09/22/20 05:38 BUN 61 mg/dL (9-20) H 09/22/20 05:38 Creatinine 3.1 mg/dL (0.8-1.3) H 09/22/20 05:38 Estimated GFR 24 ml/min 09/22/20 05:38 BUN/Creatinine Ratio 20 % 09/22/20 05:38 Glucose 129 mg/dL (75-100) H 09/22/20 05:38 POC Glucose 131 mg/dL (70-105) H 09/22/20 11:26 Lactic Acid 1.00 mmol/L (0.7-2.0) 09/20/20 17:10 Calcium 8.4 mg/dL (8.4-10.2) 09/22/20 05:38 Phosphorus 6.30 mg/dL (2.5-4.5) H 09/19/20 03:30 Magnesium 1.80 mg/dL (1.7-2.3) 09/17/20 10:47 Ferritin 927.8 ng/mL (30.0-300.0) H 09/22/20 05:38 Total Bilirubin 2.40 mg/dL (0.1-1.2) H 09/21/20 Unknown AST 31 units/L (5-40) 09/21/20 Unknown ALT 57 units/L (7-56) H 09/21/20 Unknown Alkaline Phosphatase < 5 units/L (35-129) L 09/21/20 Unknown Lactate Dehydrogenase 277 units/L (91-180) H 09/22/20 05:38 Total Creatine Kinase 20 units/L (55-170) L 09/19/20 03:30 Troponin T < 0.010 ng/mL (0.00-0.029) 09/22/20 05:38 C-Reactive Protein 6.60 mg/dL (0.00-1.30) H 09/22/20 05:38 NT-Pro-B Natriuret Pep 82239 pg/mL (0-900) H 09/17/20 10:47 Total Protein 6.7 g/dL (6.3-8.2) 09/21/20 Unknown Albumin 1.9 g/dL (3.9-5) L 09/21/20 Unknown Albumin/Globulin Ratio 0.4 % 09/21/20 Unknown Triglycerides 137 mg/dL (2-149) 09/17/20 13:54 Cholesterol 48 mg/dL (50-199) L 09/17/20 13:54 LDL Cholesterol Direct 4 mg/dL (50-130) L 09/17/20 13:54 HDL Cholesterol 9 mg/dL (40-59) L 09/17/20 13:54 Cholesterol/HDL Ratio 5.33 % 09/17/20 13:54 Procalcitonin 23.83 ng/mL (<0.15) 09/20/20 17:10 PTH Intact 161.4 pg/mL (15-65) H 09/19/20 03:30 Arterial Blood Glucose 121 mg/dL (65-95) H 09/17/20 10:28 Arterial Blood Ionized Calcium 5.0 mg/dL (4.6-5.3) 09/17/20 10:28 Urine Color Yellow (Yellow) 09/18/20 12:00 Urine Turbidity Cloudy (Clear) 09/18/20 12:00 Urine pH 5.0 (5.0-7.0) 09/18/20 12:00 Ur Specific [place] 1.009 (1.003-1.030) 09/18/20 12:00 Urine Protein 30 mg/dl mg/dL (Negative) 09/18/20 12:00 Urine Glucose (UA) Neg mg/dL (Negative) 09/18/20 12:00 Urine Ketones Neg mg/dL (Negative) 09/18/20 12:00 Urine Blood Sm (Negative) 09/18/20 12:00 Urine Nitrite Neg (Negative) 09/18/20 12:00 Urine Bilirubin Neg (Negative) 09/18/20 12:00 Urine Urobilinogen < 2.0 mg/dL (<2.0) 09/18/20 12:00 Ur Leukocyte Esterase Mod (Negative) 09/18/20 12:00 Urine WBC (Auto) 71.0 /HPF (0.0-6.0) H 09/18/20 12:00 Urine RBC (Auto) 2.0 /HPF (0.0-6.0) 09/18/20 12:00 U Epithel Cells (Auto) 1.0 /HPF (0-13.0) 09/18/20 12:00 Urine Bacteria (Auto) 4+ /HPF (Negative) 09/18/20 12:00 Urine WBC Clumps 2+ /HPF 09/18/20 12:00 Hyaline Casts 3 /LPF 09/18/20 12:00 Granular Casts 3 /LPF 09/18/20 12:00 Urine Mucus Few /HPF 09/18/20 12:00 Urine Eosinophils None seen (None Seen) 09/19/20 03:15 Urine Creatinine 61.0 mg/dL (0.1-20.0) H 09/18/20 12:00 Urine Sodium 62 mmol/L 09/18/20 12:00 Random Vancomycin 12.7 ug/mL (0-40.0) 09/19/20 03:30 Coronavirus (PCR) Positive (Negative) A 09/18/20 09:39 Hepatitis A IgM Ab Non-reactive (NonReactive) 09/20/20 17:10 Hep Bs Antigen Non-reactive (Negative) 09/20/20 17:10 Hep B Core IgM Ab Non-reactive (NonReactive) 09/20/20 17:10 Hepatitis C Antibody Non-reactive (NonReactive) 09/20/20 17:10 Microbiology: Microbiology 09/19/20 22:20 Tracheal Aspirate Sputum Culture - Final 09/18/20 03:19 Peripheral/Venous Blood Culture - Preliminary Escherichia Coli 09/18/20 12:00 Urine,Clean Catch Urine Culture - Preliminary Escherichia Coli 09/18/20 02:01 Peripheral/Venous Blood Culture - Preliminary Escherichia Coli Gardner/IV: Voiding Method Condom Catheter Active Medications - Current Medications Current Medications: Generic Name Dose Route Start Last Admin Trade Name Freq PRN Reason Stop Dose Admin Acetaminophen 650 mg 09/17/20 13:52 Acetaminophen 325 Mg Tab PO Q4H PRN Pain MILD(1-3)/Fever >100.5/ANGEL Albuterol 2.5 mg 09/17/20 13:52 09/17/20 20:47 Albuterol 2.5 Mg/3 Ml Nebu IH 2.5 mg Q4HRT PRN Administration Shortness Of Breath Lipase/Protease/Amylase 1 each 09/20/20 13:10 Lipase 10,500/Protease 25,000/Amylase 43,750 (Units) Dr Patrick FEEDTUBE PRN PRN For Clogged Feeding Tube Ascorbic Acid 500 mg 09/20/20 22:00 09/22/20 11:21 Ascorbic Acid 500 Mg Tab PO 500 mg BID EDIE Administration Cholecalciferol 1,000 unit 09/21/20 10:00 09/22/20 11:21 Cholecalciferol (Vit D3) 1000 Unit (25 Mcg) Tab PO 1,000 unit QDAY EDIE Administration Dexamethasone 6 mg 09/20/20 17:00 09/22/20 11:21 Dexamethasone 4 Mg Tab PO 09/29/20 10:01 6 mg QDAY EDIE Administration Emtricitabine 200 mg 09/20/20 12:00 09/20/20 18:40 Emtricitabine 200 Mg Cap PO 200 mg Q96H EDIE Administration Famotidine 20 mg 09/18/20 16:00 09/22/20 11:21 Famotidine 20 Mg/2 Ml Inj IV 20 mg QDAY EDIE Administration Heparin Sodium (Porcine) 3,000 unit 09/20/20 10:06 Heparin 10,000 Units/10 Ml Vial IV VIRGIL PRN hemodialysis Amiodarone HCl 900 mg/ 500 mls @ 33.333 mls/hr 09/18/20 12:00 09/22/20 05:15 Dextrose IV 1 mg/min DIRECT EDIE 33.333 mls/hr Administration Protocol 1 MG/MIN Norepinephrine 4 mg in 250 mls @ 7.5 mls/hr 09/19/20 11:00 09/22/20 12:53 Levophed Drip 4 Mg/Ns 250 Ml IV 8 mcg/min TITR EDIE 30 mls/hr Titration Protocol 2 MCG/MIN Sodium Chloride 100 mls @ 999 mls/hr 09/20/20 10:06 Nacl 0.9% IV VIRGIL PRN Hypotension Vasopressin 20 unit/ Sodium 101 mls @ 9.09 mls/hr 09/20/20 17:00 09/22/20 04:50 Chloride IV 0.03 units/min TITR EDIE 9.09 mls/hr Administration Protocol 0.03 UNITS/MIN Sodium Chloride 1,000 mls @ 75 mls/hr 09/21/20 13:15 09/22/20 03:15 Nacl 0.9% 1000 Ml IV 09/23/20 02:34 75 mls/hr DIRECT EDIE Administration Ceftriaxone Sodium 2 gm in 100 mls @ 200 mls/hr 09/22/20 13:00 Rocephin/Ns 2 Gm/100 Ml IV Q24HR EDIE Protocol Metoprolol Tartrate 5 mg 09/19/20 19:06 Metoprolol Tartrate 5 Mg/5 Ml Inj IV Q8HR PRN HR > 135 Minute Midodrine 5 mg 09/22/20 12:00 09/22/20 12:33 Midodrine 5 Mg Tab PO 5 mg TID@0800,1200,1600 EDIE Administration Ondansetron HCl 4 mg 09/17/20 13:52 Ondansetron 4 Mg/2 Ml Inj IV Q8H PRN Nausea And Vomiting Oxycodone HCl 5 mg 09/21/20 13:14 09/22/20 07:10 Oxycodone 5 Mg Tab PO 5 mg Q6H PRN Administration Pain, Moderate (4-6) Simple Syrup 15 ml 09/20/20 13:10 Simple Syrup 15 Ml FEEDTUBE PRN PRN Hypoglycemia Simple Syrup 30 ml 09/20/20 13:10 Simple Syrup 15 Ml FEEDTUBE PRN PRN Hypoglycemia Sodium Bicarbonate 325 mg 09/20/20 13:10 Sodium Bicarbonate 325 Mg Tab FEEDTUBE PRN PRN For Clogged Feeding Tube Sodium Chloride 10 ml 09/17/20 22:00 09/22/20 11:22 Sodium Chloride 0.9% 10 Ml Flush Syringe IV Not Given BID EDIE Sodium Chloride 10 ml 09/17/20 13:52 Sodium Chloride 0.9% 10 Ml Flush Syringe IV PRN PRN LINE FLUSH Tenofovir Disoproxil Fumarate 300 mg 09/20/20 22:00 09/20/20 22:25 Tenofovir 300 Mg Tab PO 300 mg Mo EDIE Administration Zinc Sulfate 220 mg 09/21/20 10:00 09/22/20 11:21 Zinc Sulfate 220 Mg Cap PO 220 mg QDAY EDIE Administration Nutrition/Malnutrition Assess - Dietary Evaluation Nutrition/Malnutrition Findings: Nutrition Notes Start: 09/18/20 11:30 Freq: Status: Active Protocol: Document 09/22/20 08:35 AT (Rec: 09/22/20 08:45 AT [id number]) Co-Sign 09/22/20 08:35 Nutrition Notes Initial or Follow up Reassessment Current Diagnosis Acute Kidney Injury,Heart Failure Other Pertinent Diagnosis COVID-19(+), CO, AMS, Cholethiasis, on HD Current Diet Nepro 1.8 at 45 mL/hr Labs/Tests BUN 61 Cr 3.1 BG 129 Pertinent Medications Vitamin C Vitamin D3 Decadron Levophed NS at 75 mL/hr Vasopressin Height 6 ft 1 in Weight 72.3 kg [place] Body Weight (kg) 83.63 BMI 21.0 Weight Status Underweight Subjective/Other Information Follow up for TF goal and tolerance. The pt is currently at 35 mL/hr and is tolerating the TF well per RN. The pt will be at goal by this afternoon. Percent of energy/protein needs met: 82%/78% Burn Absent Trauma Absent GI Symptoms Last BM,Other Current % PO Negligible Minimum of two criteria No Reduced Svp Monetization Strength Measurably Reduced (severe) #2 Nutrition Diagnosis Inadequate oral intake Etiology AMS As Evidenced by Signs and Symptoms pt requiring TF #1 Nutrition Diagnosis Inadequate energy intake As Evidenced by Signs and Symptoms pt on TF (Nepro 1.8) meeting 82% EER and 78% of estimated protein needs Diagnosis Progress(for reassessment Resolved documentation) Is patient on ventilator? No Is Patient Ambulatory and/or Out of Bed No REE-([place] Jeor-confined to bed) 1850.100 Calculation Used for Recommendations [place] Jeor Additional Notes PRO needs: >87 g(>1.2 g/kg for HD) Fluid needs: 1 mL/kcal or per MD Nutrition Intervention Change Diet Order: Continue TF Nutrition Support: Nepro 1.8 at 45 ml/hr with a free water flush of 200 ml q4h Kcal 1,944 Protein (gm) 87 Fluid (mL) 785 Goal #1 Meet at least 75% of estimated kcal and protein needs via TF Goal #2 TF tolerance Goal #3 Weight maintenance/weight gain Anticipated Discharge Needs: Unable to determine at this time. Follow-Up By: 09/24/20 Additional Comments F/U for goal and TF tolerance
[2020-09-22] MEDS: APIXABAN 5 MG TAB PO SCH ×2 (13:35→21:27)
[2020-09-22] MEDS: cefTRIAXone/NS 2 GM/100 ML 2 GM/100 ML BAG IV SCH (13:36)
[2020-09-22 15:47] LABS: INR 1.42 (0.87-1.13)
[2020-09-22 15:48] LABS: Partial Thromboplastin Time 28.6 Sec. (24.2-36.6)
[2020-09-22 16:27] LABS: HIV-1 RNA QN PCR 1.83 Log cps/mL
--- NOTE | 2020-09-22 17:52 | Hem/Onc Consultation ---
History of Present Illness - History of Present Illness hematology consult 70yo AA man with HIV (CD4?) and h/o atrial fib on xarelto, eval for SOB x 3 days, now found ot have covid19 infection has had hypoxia, hypotension found to have ARF-->now planning HD now also found to have low plt count, decreasing over a few days 160-->68 .receiving steroid pulse and now [facility] LAB DATA REVIEWED BELOW IMP:: Low plt count and ARF could be due to infection, r/o HIT recent atrial fibrillationmon IV heparin recent COvis19 infection recent elevated liver enzymes PLAN: change to argatroban low dose labs to include SPEP, Hgb electrophoresis Active Medications Apixaban (Apixaban 5 Mg Tab) 5 mg PO Q12HR EDIE; Protocol Last Admin: 09/22/20 13:35 Dose: 5 mg Documented by: Dexamethasone (Dexamethasone 4 Mg Tab) 6 mg PO QDAY EDIE Stop: 09/29/20 10:01 Last Admin: 09/22/20 11:21 Dose: 6 mg Documented by: Emtricitabine (Emtricitabine 200 Mg Cap) 200 mg PO Q96H EDIE Last Admin: 09/20/20 18:40 Dose: 200 mg Documented by: Famotidine (Famotidine 20 Mg/2 Ml Inj) 20 mg IV QDAY EDIE Last Admin: 09/22/20 11:21 Dose: 20 mg Documented by: Heparin Sodium (Porcine) (Heparin 10,000 Units/10 Ml Vial) 3,000 unit IV VIRGIL PRN PRN Reason: hemodialysis Amiodarone HCl 900 mg/ (Dextrose) 500 mls @ 33.333 mls/hr IV DIRECT EDIE; Protocol Last Admin: 09/22/20 05:15 Dose: 1 mg/min, 33.333 mls/hr Documented by: Norepinephrine (Levophed Drip 4 Mg/Ns 250 Ml) 4 mg in 250 mls @ 7.5 mls/hr IV TITR EDIE; Protocol Last Titration: 09/22/20 17:23 Dose: 6 mcg/min, 22.5 mls/hr Documented by: Sodium Chloride (Nacl 0.9%) 100 mls @ 999 mls/hr IV VIRGIL PRN PRN Reason: Hypotension Vasopressin 20 unit/ Sodium (Chloride) 101 mls @ 9.09 mls/hr IV TITR EDIE; Protocol Last Admin: 09/22/20 17:00 Dose: 0.03 units/min, 9.09 mls/hr Documented by: Sodium Chloride (Nacl 0.9% 1000 Ml) 1,000 mls @ 75 mls/hr IV DIRECT EDIE Stop: 09/23/20 02:34 Last Admin: 09/22/20 03:15 Dose: 75 mls/hr Documented by: Ceftriaxone Sodium (Rocephin/Ns 2 Gm/100 Ml) 2 gm in 100 mls @ 200 mls/hr IV Q24HR EDIE; Protocol Last Admin: 09/22/20 13:36 Dose: 200 mls/hr Documented by: Metoprolol Tartrate (Metoprolol Tartrate 5 Mg/5 Ml Inj) 5 mg IV Q8HR PRN PRN Reason: HR > 135 Minute Midodrine (Midodrine 5 Mg Tab) 5 mg PO TID@0800,1200,1600 EDIE Last Admin: 09/22/20 15:41 Dose: 5 mg Documented by: Tenofovir Disoproxil Fumarate (Tenofovir 300 Mg Tab) 300 mg PO Mo EDIE Last Admin: 09/20/20 22:25 Dose: 300 mg Documented by: Laboratory Last Values WBC 15.8 K/mm3 (4.5-11.0) H 09/22/20 05:38 Hgb 10.8 gm/dl (11.8-15.2) L 09/22/20 05:38 Hct 31.0 % (35.5-45.6) L 09/22/20 05:38 Plt Count 68 K/mm3 (140-440) L 09/22/20 05:38 PT 17.3 Sec. (12.2-14.9) H 09/22/20 15:12 INR 1.42 (0.87-1.13) H 09/22/20 15:12 APTT 28.6 Sec. (24.2-36.6) 09/22/20 15:12 D-Dimer 3281.49 ng/mlDDU (0-234) H 09/22/20 05:38 Heparin Anti-Xa Level 0.10 U.I./ml (0.3-0.7) L 09/20/20 04:00 Creatinine 3.0 mg/dL (0.8-1.3) H 09/22/20 15:12 Total Bilirubin 2.40 mg/dL (0.1-1.2) H 09/21/20 Unknown AST 31 units/L (5-40) 09/21/20 Unknown ALT 57 units/L (7-56) H 09/21/20 Unknown Alkaline Phosphatase < 5 units/L (35-129) L 09/21/20 Unknown Lactate Dehydrogenase 277 units/L (91-180) H 09/22/20 05:38 NT-Pro-B Natriuret Pep 34002 pg/mL (0-900) H 09/17/20 10:47 Total Protein 6.7 g/dL (6.3-8.2) 09/21/20 Unknown Albumin 1.9 g/dL (3.9-5) L 09/21/20 Unknown Coronavirus (PCR) Positive (Negative) A 09/18/20 09:39 HIV-1 RNA PCR copies/ml 67 Copies/mL H 09/19/20 13:35 HIV-1 RNA (PCR) log 1.83 Log cps/mL H 09/19/20 13:35 Past History Past Medical History: atrial fib, HIV/AIDS, hypertension Past Surgical History: hernia repair Social history: single. denies: smoking, alcohol abuse Family history: hypertension Medications and Allergies Allergies Allergy/AdvReac Type Severity Reaction Status Date / Time No Known Allergies Allergy Unverified 09/15/20 06:37 Home Medications Medication Instructions Recorded Confirmed Last Taken Type AtorvaSTATin [Lipitor] 20 mg PO QHS 09/18/20 09/18/20 Unknown History Dolutegravir [Tivicay] 50 mg PO DAILY 09/18/20 09/18/20 Unknown History Emtricitabine/Tenofov Alafenam 1 tab PO DAILY 09/18/20 09/18/20 Unknown History [Descovy 200-25 mg (Nf)] Rivaroxaban [Xarelto] 15 mg PO QDAY 09/18/20 09/18/20 Unknown History allopurinoL [Zyloprim] 300 mg PO QDAY 09/18/20 09/18/20 Unknown History carvediloL [Coreg] 25 mg PO BID 09/18/20 09/18/20 Unknown History lisinopriL [Lisinopril] 20 mg PO DAILY 09/18/20 09/18/20 Unknown History Active Meds: Active Medications Acetaminophen (Acetaminophen 325 Mg Tab) 650 mg PO Q4H PRN PRN Reason: Pain MILD(1-3)/Fever >100.5/ANGEL Albuterol (Albuterol 2.5 Mg/3 Ml Nebu) 2.5 mg IH Q4HRT PRN PRN Reason: Shortness Of Breath Last Admin: 09/17/20 20:47 Dose: 2.5 mg Documented by: Lipase/Protease/Amylase (Lipase 10,500/Protease 25,000/Amylase 43,750 (Units) Dr Cap) 1 each FEEDTUBE PRN PRN PRN Reason: For Clogged Feeding Tube Apixaban (Apixaban 5 Mg Tab) 5 mg PO Q12HR [facility]; Protocol Last Admin: 09/22/20 13:35 Dose: 5 mg Documented by: Ascorbic Acid (Ascorbic Acid 500 Mg Tab) 500 mg PO BID [facility] Last Admin: 09/22/20 11:21 Dose: 500 mg Documented by: Cholecalciferol (Cholecalciferol (Vit D3) 1000 Unit (25 Mcg) Tab) 1,000 unit PO QDAY [facility] Last Admin: 09/22/20 11:21 Dose: 1,000 unit Documented by: Dexamethasone (Dexamethasone 4 Mg Tab) 6 mg PO QDAY [facility] Stop: 09/29/20 10:01 Last Admin: 09/22/20 11:21 Dose: 6 mg Documented by: Emtricitabine (Emtricitabine 200 Mg Cap) 200 mg PO Q96H [facility] Last Admin: 09/20/20 18:40 Dose: 200 mg Documented by: Famotidine (Famotidine 20 Mg/2 Ml Inj) 20 mg IV QDAY [facility] Last Admin: 09/22/20 11:21 Dose: 20 mg Documented by: Heparin Sodium (Porcine) (Heparin 10,000 Units/10 Ml Vial) 3,000 unit IV VIRGIL PRN PRN Reason: hemodialysis Amiodarone HCl 900 mg/ (Dextrose) 500 mls @ 33.333 mls/hr IV DIRECT [facility]; Protocol Last Admin: 09/22/20 05:15 Dose: 1 mg/min, 33.333 mls/hr Documented by: Norepinephrine (Levophed Drip 4 Mg/Ns 250 Ml) 4 mg in 250 mls @ 7.5 mls/hr IV TITR [facility]; Protocol Last Titration: 09/22/20 17:23 Dose: 6 mcg/min, 22.5 mls/hr Documented by: Sodium Chloride (Nacl 0.9%) 100 mls @ 999 mls/hr IV VIRGIL PRN PRN Reason: Hypotension Vasopressin 20 unit/ Sodium (Chloride) 101 mls @ 9.09 mls/hr IV TITR [facility]; Protocol Last Admin: 09/22/20 17:00 Dose: 0.03 units/min, 9.09 mls/hr Documented by: Sodium Chloride (Nacl 0.9% 1000 Ml) 1,000 mls @ 75 mls/hr IV DIRECT EDIE Stop: 09/23/20 02:34 Last Admin: 09/22/20 03:15 Dose: 75 mls/hr Documented by: Ceftriaxone Sodium (Rocephin/Ns 2 Gm/100 Ml) 2 gm in 100 mls @ 200 mls/hr IV Q24HR [facility]; Protocol Last Admin: 09/22/20 13:36 Dose: 200 mls/hr Documented by: Metoprolol Tartrate (Metoprolol Tartrate 5 Mg/5 Ml Inj) 5 mg IV Q8HR PRN PRN Reason: HR > 135 Minute Midodrine (Midodrine 5 Mg Tab) 5 mg PO TID@0800,1200,1600 [facility] Last Admin: 09/22/20 15:41 Dose: 5 mg Documented by: Ondansetron HCl (Ondansetron 4 Mg/2 Ml Inj) 4 mg IV Q8H PRN PRN Reason: Nausea And Vomiting Oxycodone HCl (Oxycodone 5 Mg Tab) 5 mg PO Q6H PRN PRN Reason: Pain, Moderate (4-6) Last Admin: 09/22/20 13:36 Dose: 5 mg Documented by: Simple Syrup (Simple Syrup 15 Ml) 15 ml FEEDTUBE PRN PRN PRN Reason: Hypoglycemia Simple Syrup (Simple Syrup 15 Ml) 30 ml FEEDTUBE PRN PRN PRN Reason: Hypoglycemia Sodium Bicarbonate (Sodium Bicarbonate 325 Mg Tab) 325 mg FEEDTUBE PRN PRN PRN Reason: For Clogged Feeding Tube Sodium Chloride (Sodium Chloride 0.9% 10 Ml Flush Syringe) 10 ml IV BID [facility] Last Admin: 09/22/20 11:22 Dose: Not Given Documented by: Sodium Chloride (Sodium Chloride 0.9% 10 Ml Flush Syringe) 10 ml IV PRN PRN PRN Reason: LINE FLUSH Tenofovir Disoproxil Fumarate (Tenofovir 300 Mg Tab) 300 mg PO Mo [facility] Last Admin: 09/20/20 22:25 Dose: 300 mg Documented by: Zinc Sulfate (Zinc Sulfate 220 Mg Cap) 220 mg PO QDAY [facility] Last Admin: 09/22/20 11:21 Dose: 220 mg Documented by: Exam - Constitutional Vitals: Last Vital Signs Temp 98 F 09/22/20 16:00 Pulse 124 H 09/22/20 17:18 Resp 20 09/22/20 17:18 BP 139/100 09/22/20 17:00 Pulse Ox 96 09/22/20 17:18 Results - Labs lab Results: Laboratory Results - last 24 hr 09/19/20 09/21/20 09/21/20 13:35 17:09 23:18 WBC RBC Hgb Hct MCV MCH MCHC RDW Plt Count Lymph % (Auto) Kings % (Auto) Eos % (Auto) Baso % (Auto) Lymph # (Auto) Kings # (Auto) Eos # (Auto) Baso # (Auto) Seg Neutrophils % Seg Neutrophils # PT INR APTT D-Dimer Sodium Potassium Chloride Carbon Dioxide Anion Gap BUN Creatinine Estimated GFR BUN/Creatinine Ratio Glucose POC Glucose 140 H 139 H Calcium Ferritin Lactate Dehydrogenase Troponin T C-Reactive Protein HIV-1 RNA PCR copies/ml 67 H HIV-1 RNA (PCR) log 1.83 H 09/21/20 09/22/20 09/22/20 Unknown 05:38 05:38 WBC 15.8 H RBC 3.36 L Hgb 10.8 L Hct 31.0 L MCV 92 MCH 32 MCHC 35 H RDW 13.5 Plt Count 68 L Lymph % (Auto) 3.1 L Kings % (Auto) 10.7 H Eos % (Auto) 0.1 Baso % (Auto) 0.2 Lymph # (Auto) 0.5 L Kings # (Auto) 1.7 H Eos # (Auto) 0.0 Baso # (Auto) 0.0 Seg Neutrophils % 85.9 H Seg Neutrophils # 13.6 H PT INR APTT D-Dimer Sodium 140 Potassium 3.9 Chloride 104.6 Carbon Dioxide 24 Anion Gap 15 BUN 61 H Creatinine 3.1 H Estimated GFR 24 BUN/Creatinine Ratio 20 Glucose 129 H POC Glucose Calcium 8.4 Ferritin Lactate Dehydrogenase 277 H Troponin T < 0.010 < 0.010 C-Reactive Protein 6.60 H HIV-1 RNA PCR copies/ml HIV-1 RNA (PCR) log 09/22/20 09/22/20 09/22/20 05:38 05:38 05:44 WBC RBC Hgb Hct MCV MCH MCHC RDW Plt Count Lymph % (Auto) Kings % (Auto) Eos % (Auto) Baso % (Auto) Lymph # (Auto) Kings # (Auto) Eos # (Auto) Baso # (Auto) Seg Neutrophils % Seg Neutrophils # PT INR APTT D-Dimer 3281.49 H Sodium Potassium Chloride Carbon Dioxide Anion Gap BUN Creatinine Estimated GFR BUN/Creatinine Ratio Glucose POC Glucose 112 H Calcium Ferritin 927.8 H Lactate Dehydrogenase Troponin T C-Reactive Protein HIV-1 RNA PCR copies/ml HIV-1 RNA (PCR) log 09/22/20 09/22/20 09/22/20 11:26 15:12 15:12 WBC RBC Hgb Hct MCV MCH MCHC RDW Plt Count Lymph % (Auto) Kings % (Auto) Eos % (Auto) Baso % (Auto) Lymph # (Auto) Kings # (Auto) Eos # (Auto) Baso # (Auto) Seg Neutrophils % Seg Neutrophils # PT 17.3 H INR 1.42 H APTT 28.6 D-Dimer Sodium Potassium Chloride Carbon Dioxide Anion Gap BUN Creatinine 3.0 H Estimated GFR 25 BUN/Creatinine Ratio Glucose POC Glucose 131 H Calcium Ferritin Lactate Dehydrogenase Troponin T C-Reactive Protein HIV-1 RNA PCR copies/ml HIV-1 RNA (PCR) log 09/22/20 16:53 WBC RBC Hgb Hct MCV MCH MCHC RDW Plt Count Lymph % (Auto) Kings % (Auto) Eos % (Auto) Baso % (Auto) Lymph # (Auto) Kings # (Auto) Eos # (Auto) Baso # (Auto) Seg Neutrophils % Seg Neutrophils # PT INR APTT D-Dimer Sodium Potassium Chloride Carbon Dioxide Anion Gap BUN Creatinine Estimated GFR BUN/Creatinine Ratio Glucose POC Glucose 138 H Calcium Ferritin Lactate Dehydrogenase Troponin T C-Reactive Protein HIV-1 RNA PCR copies/ml HIV-1 RNA (PCR) log
[2020-09-22] MEDS: METOPROLOL TARTRATE 5 MG/5 ML INJ IV PRN (19:57)
[2020-09-23] MEDS: VASOPRESSIN 20 UNIT in SODIUM CHLORIDE 0.9% 100 ML IV SCH ×2 (03:51→16:17)
[2020-09-23 04:59] LABS: Hematocrit 28.4 % (35.5-45.6); Hemoglobin 9.8 gm/dl (11.8-15.2); Mean Corpuscular HGB Conc 34 % (32-34); Mean Corpuscular Volume 93 fl (84-94); Red Blood Count 3.05 M/mm3 (3.65-5.03); Red Cell Distribution Width 13.6 % (13.2-15.2)
[2020-09-23 05:12] LABS: Calcium 8.6 mg/dL (8.4-10.2)
[2020-09-23 05:22] LABS: Platelet Count 39 K/mm3 (140-440)
[2020-09-23 06:29] LABS: Anisocytosis 1+; Band Neutrophils # (Manual) 0.3 K/mm3; Platelet Estimate Consistent w Auto; Target Cells Few; Total Cells Counted 100
[2020-09-23] MEDS: oxyCODONE 5 MG TAB PO PRN ×2 (09:05→18:25)
[2020-09-23] MEDS: MIDODRINE 5 MG TAB PO SCH ×3 (09:06→16:17)
[2020-09-23] MEDS: cefTRIAXone/NS 2 GM/100 ML 2 GM/100 ML BAG IV SCH (09:06)
[2020-09-23] MEDS: APIXABAN 5 MG TAB PO SCH (09:06)
[2020-09-23] MEDS: ASCORBIC ACID 500 MG TAB PO SCH ×2 (09:06→22:11)
[2020-09-23] MEDS: DEXAMETHASONE 4 MG TAB PO SCH (09:06)
[2020-09-23] MEDS: DOLUTEGRAVIR 50 MG TAB PO SCH (09:06)
[2020-09-23] MEDS: CHOLECALCIFEROL (VIT D3) 1000 UNIT (25 mcg) TAB PO SCH (09:07)
[2020-09-23] MEDS: ZINC SULFATE 220 MG CAP PO SCH (09:07)
[2020-09-23] MEDS: FAMOTIDINE 20 MG/2 ML INJ IV SCH (09:07)
[2020-09-23] MEDS: AMIODARONE 900 MG in DEXTROSE 5% IN WATER 482 ML IV SCH (09:08)
--- NOTE | 2020-09-23 09:25 | Progress Note ---
Assessment and Plan 1. Acute kidney injury: Vasomotor LOLI in the setting of shock. ATN likely. Renal US negative for hydro. Bladder scan 0 ml (09/23). Patient require hemodialysis due to significant decline in the renal function. Hemodialysis: 09/20, 09/21. Monitor renal function. Creatinine leveled off. Renal prognosis is guarded. Avoid nephrotoxic agents. Meds dosage based on GFR. Monitor for [employer] A[employer]LY[employer] needs. 2. FEN: Metabolic acidosis, improving, monitor. Monitor volume status and lytes. 3. Acute hypoxic respiratory failure: Covid test positive. Supplemental O2. 4. Acute CHF: Echocardiogram: EF 40-45%. CHF orderset / pathway. Monitor. 5. Atrial fibrillation with RVR: Amio drip. Followed by Cards. 6. Elevated troponin: Trend. Followed by Cards. 7. Coagulopathy: Trend. 8. Shock / Hypotension: Multifactorial, monitor. On Levophed and Vasopressin. 9. Elevated Transaminases: Improving. 10. Metabolic encephalopathy: Monitor. 11. HIV. 12. Anemia, POA: Monitor. Subjective: Patient was seen and examined at the bedside. Objective: General appearance: well-developed, appears stated age, no distress, NC O2, NG tube HEENT: ATNC, L pupil dilated Neck: trachea midline Respiratory: bilateral diminished breath sounds Heart: irregular, S1S2, no murmur Gastrointestinal: soft, normoactive bowel sounds, not tender Integumentary: no obvious rash Ext: no edema Neurologic: lethargic, non-verbal, not following any command Subjective Date of service: 09/23/20 Principal diagnosis: Ac hypoxemic resp failure; A-fib RVR; AE-CHF; LOLI; Septic shock; UTI Objective - Vital Signs Vital signs: Vital Signs - 12hr 09/22/20 09/22/20 09/22/20 21:30 21:45 22:00 Temperature Pulse Rate 102 H 97 H 96 H Pulse Rate [ From Monitor] Respiratory 19 18 18 Rate Blood Pressure 146/108 146/108 120/95 O2 Sat by Pulse 100 100 100 Oximetry 09/22/20 09/22/20 09/22/20 22:15 22:30 22:33 Temperature Pulse Rate 96 H 96 H 94 H Pulse Rate [ From Monitor] Respiratory 17 15 16 Rate Blood Pressure 119/90 123/90 123/90 O2 Sat by Pulse 100 100 100 Oximetry 09/22/20 09/22/20 09/22/20 22:45 23:00 23:15 Temperature Pulse Rate 100 H 92 H 85 Pulse Rate [ From Monitor] Respiratory 17 15 16 Rate Blood Pressure 123/90 138/96 136/103 O2 Sat by Pulse 100 100 100 Oximetry 09/22/20 09/22/20 09/23/20 23:30 23:45 00:00 Temperature 98.6 F Pulse Rate 92 H 83 96 H Pulse Rate [ From Monitor] Respiratory 16 16 15 Rate Blood Pressure 143/108 143/108 139/108 O2 Sat by Pulse 100 100 100 Oximetry 09/23/20 09/23/20 09/23/20 00:15 00:19 00:30 Temperature Pulse Rate 97 H 97 H 84 Pulse Rate [ From Monitor] Respiratory 13 14 Rate Blood Pressure 139/108 135/105 O2 Sat by Pulse 100 100 100 Oximetry 09/23/20 09/23/20 09/23/20 00:45 01:00 01:15 Temperature Pulse Rate 91 H 82 89 Pulse Rate [ From Monitor] Respiratory 15 13 16 Rate Blood Pressure 143/110 150/109 141/114 O2 Sat by Pulse 100 100 100 Oximetry 09/23/20 09/23/20 09/23/20 01:30 01:45 01:53 Temperature Pulse Rate 93 H 89 Pulse Rate [ 97 H From Monitor] Respiratory 21 16 17 Rate Blood Pressure 151/102 134/101 O2 Sat by Pulse 100 100 100 Oximetry 09/23/20 09/23/20 09/23/20 02:00 02:15 02:30 Temperature Pulse Rate 105 H 97 H 94 H Pulse Rate [ From Monitor] Respiratory 17 16 16 Rate Blood Pressure 138/103 138/104 135/100 O2 Sat by Pulse 100 100 100 Oximetry 09/23/20 09/23/20 09/23/20 02:45 03:01 03:15 Temperature Pulse Rate 95 H 90 93 H Pulse Rate [ From Monitor] Respiratory 15 15 18 Rate Blood Pressure 135/100 117/84 111/85 O2 Sat by Pulse 100 100 100 Oximetry 09/23/20 09/23/20 09/23/20 03:30 03:45 03:54 Temperature Pulse Rate 95 H 94 H 889 H Pulse Rate [ From Monitor] Respiratory 15 16 18 Rate Blood Pressure 115/81 115/81 126/84 O2 Sat by Pulse 100 100 99 Oximetry 09/23/20 09/23/20 09/23/20 04:00 04:15 04:30 Temperature 97.6 F Pulse Rate 82 95 H 92 H Pulse Rate [ 82 From Monitor] Respiratory 15 16 13 Rate Blood Pressure 102/76 102/76 102/67 O2 Sat by Pulse 100 100 100 Oximetry 09/23/20 09/23/20 09/23/20 04:45 05:00 05:15 Temperature Pulse Rate 97 H 91 H 81 Pulse Rate [ From Monitor] Respiratory 18 16 15 Rate Blood Pressure 107/75 110/77 103/75 O2 Sat by Pulse 100 100 100 Oximetry 09/23/20 09/23/20 09/23/20 05:30 05:45 06:00 Temperature Pulse Rate 88 89 88 Pulse Rate [ From Monitor] Respiratory 15 24 17 Rate Blood Pressure 106/83 106/79 O2 Sat by Pulse 100 100 100 Oximetry 09/23/20 09/23/20 09/23/20 06:15 06:30 06:45 Temperature Pulse Rate 87 87 89 Pulse Rate [ From Monitor] Respiratory 16 15 17 Rate Blood Pressure 98/73 101/77 104/75 O2 Sat by Pulse 100 100 100 Oximetry 09/23/20 09/23/20 09/23/20 07:00 07:12 07:15 Temperature 97.7 F Pulse Rate 92 H 82 Pulse Rate [ From Monitor] Respiratory 15 15 Rate Blood Pressure 110/75 110/75 O2 Sat by Pulse 100 100 100 Oximetry 09/23/20 09/23/20 09/23/20 07:30 07:45 07:53 Temperature Pulse Rate 88 84 85 Pulse Rate [ From Monitor] Respiratory 19 18 Rate Blood Pressure 100/76 103/73 O2 Sat by Pulse 99 100 Oximetry 09/23/20 09/23/20 09/23/20 07:54 08:00 08:15 Temperature Pulse Rate 92 H 84 Pulse Rate [ 81 From Monitor] Respiratory 23 19 21 Rate Blood Pressure 100/72 90/63 O2 Sat by Pulse 100 99 100 Oximetry 09/23/20 09/23/20 09/23/20 08:30 08:45 09:01 Temperature Pulse Rate 85 93 H 86 Pulse Rate [ From Monitor] Respiratory 15 19 13 Rate Blood Pressure 93/64 85/65 85/65 O2 Sat by Pulse 99 100 100 Oximetry - Lab 09/23/20 04:36 09/23/20 04:36 Most recent lab results ABG pH 7.508 (7.320-7.450) H 09/17/20 10:28 ABG O2 Saturation 93.4 (0-100) 09/17/20 10:28 Calcium 8.6 mg/dL (8.4-10.2) 09/23/20 04:36 Phosphorus 6.30 mg/dL (2.5-4.5) H 09/19/20 03:30 Magnesium 1.80 mg/dL (1.7-2.3) 09/17/20 10:47 Urine Creatinine 61.0 mg/dL (0.1-20.0) H 09/18/20 12:00 Urine Sodium 62 mmol/L 09/18/20 12:00 Medications & Allergies - Medications Allergies/Adverse Reactions: Allergies No Known Allergies Allergy (Unverified 09/15/20 06:37) Home Medications: Home Medications Medication Instructions Recorded Confirmed Last Taken Type AtorvaSTATin [Lipitor] 20 mg PO QHS 09/18/20 09/18/20 Unknown History Dolutegravir [Tivicay] 50 mg PO DAILY 09/18/20 09/18/20 Unknown History Emtricitabine/Tenofov Alafenam 1 tab PO DAILY 09/18/20 09/18/20 Unknown History [Descovy 200-25 mg (Nf)] Rivaroxaban [Xarelto] 15 mg PO QDAY 09/18/20 09/18/20 Unknown History allopurinoL [Zyloprim] 300 mg PO QDAY 09/18/20 09/18/20 Unknown History carvediloL [Coreg] 25 mg PO BID 09/18/20 09/18/20 Unknown History lisinopriL [Lisinopril] 20 mg PO DAILY 09/18/20 09/18/20 Unknown History Active Medications: Generic Name Dose Route Start Last Admin Trade Name Freq PRN Reason Stop Dose Admin Acetaminophen 650 mg 09/17/20 13:52 Acetaminophen 325 Mg Tab PO Q4H PRN Pain MILD(1-3)/Fever >100.5/ANGEL Albuterol 2.5 mg 09/17/20 13:52 09/17/20 20:47 Albuterol 2.5 Mg/3 Ml Nebu IH 2.5 mg Q4HRT PRN Administration Shortness Of Breath Lipase/Protease/Amylase 1 each 09/20/20 13:10 Lipase 10,500/Protease 25,000/Amylase 43,750 (Units) Dr Cap FEEDTUBE PRN PRN For Clogged Feeding Tube Apixaban 5 mg 09/22/20 14:00 09/23/20 09:06 Apixaban 5 Mg Tab PO 5 mg Q12HR EDIE Administration Protocol Ascorbic Acid 500 mg 09/20/20 22:00 09/23/20 09:06 Ascorbic Acid 500 Mg Tab PO 500 mg BID EDIE Administration Cholecalciferol 1,000 unit 09/21/20 10:00 09/23/20 09:07 Cholecalciferol (Vit D3) 1000 Unit (25 Mcg) Tab PO 1,000 unit QDAY EDIE Administration Dexamethasone 6 mg 09/20/20 17:00 09/23/20 09:06 Dexamethasone 4 Mg Tab PO 09/29/20 10:01 6 mg QDAY EDIE Administration Emtricitabine 200 mg 09/20/20 12:00 09/20/20 18:40 Emtricitabine 200 Mg Cap PO 200 mg Q96H EDIE Administration Famotidine 20 mg 09/18/20 16:00 09/23/20 09:07 Famotidine 20 Mg/2 Ml Inj IV 20 mg QDAY EDIE Administration Heparin Sodium (Porcine) 3,000 unit 09/20/20 10:06 Heparin 10,000 Units/10 Ml Vial IV VIRGIL PRN hemodialysis Amiodarone HCl 900 mg/ 500 mls @ 33.333 mls/hr 09/18/20 12:00 09/23/20 09:08 Dextrose IV 1 mg/min DIRECT EDIE 33.333 mls/hr Administration Protocol 1 MG/MIN Norepinephrine 4 mg in 250 mls @ 7.5 mls/hr 09/19/20 11:00 09/23/20 03:51 Levophed Drip 4 Mg/Ns 250 Ml IV 0 mcg/min TITR EDIE 0 mls/hr Titration Protocol 2 MCG/MIN Sodium Chloride 100 mls @ 999 mls/hr 09/20/20 10:06 Nacl 0.9% IV VIRGIL PRN Hypotension Vasopressin 20 unit/ Sodium 101 mls @ 9.09 mls/hr 09/20/20 17:00 09/23/20 03:51 Chloride IV 0.03 units/min TITR EDIE 9.09 mls/hr Administration Protocol 0.03 UNITS/MIN Ceftriaxone Sodium 2 gm in 100 mls @ 200 mls/hr 09/22/20 13:00 09/23/20 09:06 Rocephin/Ns 2 Gm/100 Ml IV 200 mls/hr Q24HR EDIE Administration Protocol Metoprolol Tartrate 5 mg 09/19/20 19:06 09/22/20 19:57 Metoprolol Tartrate 5 Mg/5 Ml Inj IV 5 mg Q8HR PRN Administration HR > 135 Minute Midodrine 5 mg 09/22/20 12:00 09/23/20 09:06 Midodrine 5 Mg Tab PO 5 mg TID@0800,1200,1600 EDIE Administration Ondansetron HCl 4 mg 09/17/20 13:52 Ondansetron 4 Mg/2 Ml Inj IV Q8H PRN Nausea And Vomiting Oxycodone HCl 5 mg 09/21/20 13:14 09/23/20 09:05 Oxycodone 5 Mg Tab PO 5 mg Q6H PRN Administration Pain, Moderate (4-6) Simple Syrup 15 ml 09/20/20 13:10 Simple Syrup 15 Ml FEEDTUBE PRN PRN Hypoglycemia Simple Syrup 30 ml 09/20/20 13:10 Simple Syrup 15 Ml FEEDTUBE PRN PRN Hypoglycemia Sodium Bicarbonate 325 mg 09/20/20 13:10 Sodium Bicarbonate 325 Mg Tab FEEDTUBE PRN PRN For Clogged Feeding Tube Sodium Chloride 10 ml 09/17/20 22:00 09/22/20 21:28 Sodium Chloride 0.9% 10 Ml Flush Syringe IV 10 ml BID EDIE Administration Sodium Chloride 10 ml 09/17/20 13:52 Sodium Chloride 0.9% 10 Ml Flush Syringe IV PRN PRN LINE FLUSH Tenofovir Disoproxil Fumarate 300 mg 09/20/20 22:00 09/20/20 22:25 Tenofovir 300 Mg Tab PO 300 mg Mo EDIE Administration Zinc Sulfate 220 mg 09/21/20 10:00 09/23/20 09:07 Zinc Sulfate 220 Mg Cap PO 220 mg QDAY EDIE Administration
--- NOTE | 2020-09-23 11:28 | Progress Note ---
Assessment and Plan Cultures: 09/18/2020 COVID-19 PCR: Positive 09/18/2020 blood culture: E.coli 09/18/2020 Urine culture: E.coli 09/19/2020 sputum culture: Contaminated with oral secretions 09/19/2020 HIV RNA PCR: 67 copies per mL Assessment: 70-year-old male with history of HIV infection (unknown CD4/VL/ART compliance), hypertension, atrial fibrillation on Xarelto, initially admitted on 09/15/2020 RVR A. fib, LOLI, left AMA, came back to the ED on 09/17/2020 secondary to worsening shortness of breath for 3 days: #Severe sepsis with septic shock: secondary to E.coli bacteremia ?from UTI. HIDA scan negative for acute cholecystitis #E.coli bacteremia: Likely from UTI. RUQ US did show a large GB stone. Labs initially with elevated LFTs and bilirubin. HIDA negative. #UTI: Urinalysis with 71 WBCs and moderate leukocyte esterase. Urine culture with E.coli #COVID-19: PCR positive. On supplemental oxygen. Agree with steroids. #LOLI: Likely due to sepsis. On HD. #Acute respiratory hypoxic failure: on NC. #HIV: listed meds are Descovy + Tivicay. Likely good control since his HIV RNA PCR came back at 67 copies/ml. CD4 pending. #Acute encephalopathy: ?multifactorial. Recommendations: -continue IV ceftriaxone 2 g daily + flagyl -complete steroid course for COVID-19 -Follow-up CD4 -continue renally dosed antiretroviral therapy based on formulary/therapeutic interchange: TDF + FTC + DTG Pat Rae MD, FACP [facility] ([facility]) O: [phone] F: [phone] Subjective Date of service: 09/23/20 Principal diagnosis: Ac hypoxemic resp failure; A-fib RVR; AE-CHF; LOLI; Septic shock; UTI Interval history: No fever. Remains on nasal cannula, stable oxygenation. Off Levophed, remains on vasopressin. Objective - Exam Narrative Exam: Physical Exam (reviewed in chart to minimize risk of transmission) Constitutional: deferred Head, Ears, Nose: deferred Eyes: deferred Neck: deferred Oral: deferred Cardiovascular: deferred Respiratory: deferred GI: deferred Musculoskeletal: deferred Skin: deferred Hem/Lymphatic: deferred Psych: deferred Neurological: deferred - Constitutional Vitals: Vital Signs Temp Pulse Resp BP Pulse Ox 97.7 F 90 18 104/75 100 09/23/20 07:00 09/23/20 11:00 09/23/20 11:00 09/23/20 11:00 09/23/20 11:00 Temperature -Last 24 Hours Temperature 97.7 F Temperature 97.6 F Temperature 98.6 F Temperature 98.2 F Temperature 98 F Temperature 97.8 F - Labs CBC & Chem 7: 09/23/20 04:36 09/23/20 04:36 Labs: Abnormal lab results 09/19/20 09/22/20 09/22/20 Range/Units 13:35 11:26 15:12 WBC (4.5-11.0) K/mm3 RBC (3.65-5.03) M/mm3 Hgb (11.8-15.2) gm/dl Hct (35.5-45.6) % Plt Count (140-440) K/mm3 Seg Neuts % (Manual) (40.0-70.0) % Lymphocytes % (Manual) (13.4-35.0) % Seg Neutrophils # Man (1.8-7.7) K/mm3 Lymphocytes # (Manual) (1.2-5.4) K/mm3 PT 17.3 H (12.2-14.9) Sec. INR 1.42 H (0.87-1.13) BUN (9-20) mg/dL Creatinine (0.8-1.3) mg/dL Glucose (75-100) mg/dL POC Glucose 131 H (70-105) mg/dL HIV-1 RNA PCR copies/ml 67 H Copies/mL HIV-1 RNA (PCR) log 1.83 H Log cps/mL 09/22/20 09/22/20 09/22/20 Range/Units 15:12 16:53 23:55 WBC (4.5-11.0) K/mm3 RBC (3.65-5.03) M/mm3 Hgb (11.8-15.2) gm/dl Hct (35.5-45.6) % Plt Count (140-440) K/mm3 Seg Neuts % (Manual) (40.0-70.0) % Lymphocytes % (Manual) (13.4-35.0) % Seg Neutrophils # Man (1.8-7.7) K/mm3 Lymphocytes # (Manual) (1.2-5.4) K/mm3 PT (12.2-14.9) Sec. INR (0.87-1.13) BUN (9-20) mg/dL Creatinine 3.0 H (0.8-1.3) mg/dL Glucose (75-100) mg/dL POC Glucose 138 H 171 H (70-105) mg/dL HIV-1 RNA PCR copies/ml Copies/mL HIV-1 RNA (PCR) log Log cps/mL 09/23/20 09/23/20 09/23/20 Range/Units 04:36 04:36 05:41 WBC 14.2 H (4.5-11.0) K/mm3 RBC 3.05 L (3.65-5.03) M/mm3 Hgb 9.8 L (11.8-15.2) gm/dl Hct 28.4 L (35.5-45.6) % Plt Count 39 L (140-440) K/mm3 Seg Neuts % (Manual) 91.0 H (40.0-70.0) % Lymphocytes % (Manual) 2.0 L (13.4-35.0) % Seg Neutrophils # Man 12.9 H (1.8-7.7) K/mm3 Lymphocytes # (Manual) 0.3 L (1.2-5.4) K/mm3 PT (12.2-14.9) Sec. INR (0.87-1.13) BUN 76 H (9-20) mg/dL Creatinine 3.1 H (0.8-1.3) mg/dL Glucose 157 H (75-100) mg/dL POC Glucose 136 H (70-105) mg/dL HIV-1 RNA PCR copies/ml Copies/mL HIV-1 RNA (PCR) log Log cps/mL
--- NOTE | 2020-09-23 12:21 | Progress Note ---
Assessment and Plan Assessment and plan: This is 70-year-old male with HIV, HTN, and atrial fibrillation (currently on therapeutic anticoagulation with Xarelto) admitted with atrial fibrillation with RVR, SIRs, metabolic acidosis, acute kidney injury, acute hypoxic respiratory failure, hypotension, and CHF Septic Shock Acute hypoxemic respiratory failure 2/2 to volume overload/chf exacerbation Acute systolic heart failure exacerbation Atrial fibrillation with RVR Acute on chronic kidney injury Hypotension Anemia Thrombocytopenia E coli bacteremia E. coli urinary tract infection NSTEMI Elevated Ddimer Leukocytosis HIV, unknown status HTN Coagulopathy Transaminitis -Cardiology, CCM, Nephrology, ID, general surgery, heme/onc consulted, appreciate recommendations -09/20 COVID-19 PCR positive -Droplet/isolation precautions -Dexamethasone 6 mg p.o. (09/20-09/30) -Vitamin D, vitamin C, zinc -Vasopressor support with levophed and vasopressin, midodrine -09/17 CXR shows borderline heart size, mild central pulmonary venous congestion -09/17 renal ultrasound shows no acute findings -09/18 echocardiogram shows left ventricle systolic function mildly decreased, LVEF of 40 to 45% with mild concentric left ventricle hypertrophy, trace MR, mild TR, trace AR -09/19 abdominal ultrasound shows large gallstone within the gallbladder, no pericholecystic fluid, gallbladder wall upper limits of normal measuring 3 mm -09/21 HIDA scan shows no evidence of acute cholecystitis -09/21 BLE Dopplar US no evidence for DVT -09/23 CT head shows no acute intracranial hemorrhage or parenchymal abnormality, mild diffuse brain atrophy with commensurate ventricular enlargement which is likely age appropriate, small frontal scalp lipoma measuring 9 mm in thickness, 4 cm in length, and 4 cm in width., Sinuses and mastoid air cells are clear. -09/17 proBNP 53722 -S/p IV Lasix twice daily -09/20 nephrology initiated the patient on dialysis -Pulmonary hygiene -Bipap qhs -IV amiodarone -HIV meds per ID -IV abx therapy -HIT pending -Trend CBC, BMP, LFTs DVT/GI prophylaxis: PPI, SCDs to bilateral lower extremities while in bed, no chemical anticoagulation at this time d/t thrombocytopenia Disposition: ICU The high probability of a clinically significant, sudden or life threatening deterioration of the [multi] system(s) required my full and direct attention, i ntervention and personal management. The aggregate critical care time was [35] minutes. This time is in addition to time spent performing reported procedures but includes the following: [x] Data Review and interpretation [x] Patient assessment and monitoring of vital signs [x] Documentation [x] Medication orders and management History Interval history: This is 70-year-old male with HIV, HTN, and atrial fibrillation (currently on therapeutic anticoagulation with Xarelto) presents the emergency department on 09/17 with complaints of shortness of breath over the past 3 days and on arrival of EMS patient was found to have a pulse oximetry of 85% on room air. He was placed on supplemental oxygenation. Of note patient was admitted on 09/15 with similar complaints and found to have A. fib with RVR, hyponatremia, hypomagnesemia and acute kidney injury and left AMA. He was admitted to the hospital service with atrial fibrillation with RVR, SIRs, metabolic acidosis, acute kidney injury, acute hypoxic respiratory failure, hypotension, and CHF . Cardiology, CCM and nephrology were consulted. 09/18/2020. Await echocardiogram to assess for diastolic versus systolic etiology. Patient with elevated BNP greater than 18,000. Patient apparently was admitted approximately 3 days ago but left AMA. Cardiology consulted for heart failure, A. fib with RVR and elevated troponin. Patient denies chest pain. Also, patient with elevated creatinine of 4.7 with creatinine 2.8 on recent admission. We do not have a previous creatinine as a baseline to compare. Nephrology consultation pending. Follow-up renal ultrasound. Patient with coagulopathy and INR 3.04. Unsure if patient was on anticoagulation for A. fib. 09/19/2020. Patient likely with vasomotor acute kidney injury in the setting of shock. Follow-up urine studies and renal ultrasound. Creatinine continues to worsen. Nephrology following. Etiology of respiratory failure secondary to heart failure with Covid testing pending. Elevated troponin suggestive of NSTEMI. Continue diuresis with Lasix. Continue IV amiodarone for rate control of A. fib with RVR. Continue heparin. Follow-up echocardiogram. Cardiology following. 09/20/2020: This time my examination patient was on BiPAP therapy and now is on nasal cannula. Patient remains on amiodarone drip with heart rate in the 130s to 140s and vasopressor support with Levophed. Today nephrology will initiate hemodialysis given worsening renal function studies and has stopped diuresis with Lasix. ID resumed antiretroviral therapy and ordered a HIDA scan. Today the patient received a temporary Vas-Cath and is COVID-19 PCR resulted as positive. Patient will be started on vitamin C, vitamin D and zinc and dexamethasone given need for supplemental oxygenation. 09/21: Ecoli UTI and bacteremia and ID has changed him to meropenem, Patient received HD yesterday and patient remains on amiodarone drip. He is off the floor to obtain a HIDA scan. 09/22: HIDA scan did not show acute cholecystitis. Ecoli bacteremia is sensitive to ceftriaxone and ID changed his abx. Mentation is better. BP is liable. Remains on levophed and vasopressin. We started midodrine. HIT panel pending and hem/onc consulted. 09/23: Patient noted to have unequal pupils with left >right, STAT CT head ordered. Nephro will withhold hemodialysis and assess needs as kidney function has gotten better. Patient symptomatically follows commands and is on nasal cannula. Cardiology stopped his Eliquis due to persistent thrombocytopenia. Hospitalist Physical - Constitutional Vitals: Temp Pulse Resp BP Pulse Ox 98.6 F 74 17 104/75 100 09/23/20 12:00 09/23/20 12:00 09/23/20 12:00 09/23/20 11:00 09/23/20 12:00 General appearance: Present: no acute distress - EENT Eyes: Absent: PERRL (unqual pupils, L>R, Left not reactive to light (acute change according to RN who states they were equal and reactive during AM assessment)) ENT: poor dentition - Neck Neck: Present: normal ROM - Respiratory Respiratory effort: normal Respiratory: bilateral: diminished - Cardiovascular Rhythm: irregularly irregular Heart Sounds: Present: S1 & S2. Absent: systolic murmur, diastolic murmur - Extremities Extremities: no ischemia, pulses intact, pulses symmetrical, No edema, normal temperature Peripheral Pulses: within normal limits - Abdominal General gastrointestinal: soft, non-tender, non-distended, normal bowel sounds - Integumentary Integumentary: Present: warm, dry - Psychiatric Psychiatric: other (Intermittently follows commands) - Neurologic Neurologic: moves all extremities - Allied Health Allied health notes reviewed: nursing, RT, social work HEART Score - HEART Score Troponin: Troponin T < 0.010 ng/mL (0.00-0.029) 09/22/20 05:38 Results - Labs CBC & Chem 7: 09/23/20 04:36 09/23/20 04:36 Labs: Laboratory Last Values WBC 14.2 K/mm3 (4.5-11.0) H 09/23/20 04:36 RBC 3.05 M/mm3 (3.65-5.03) L 09/23/20 04:36 Hgb 9.8 gm/dl (11.8-15.2) L 09/23/20 04:36 Hct 28.4 % (35.5-45.6) L 09/23/20 04:36 MCV 93 fl (84-94) 09/23/20 04:36 MCH 32 pg (28-32) 09/23/20 04:36 MCHC 34 % (32-34) 09/23/20 04:36 RDW 13.6 % (13.2-15.2) 09/23/20 04:36 Plt Count 39 K/mm3 (140-440) L 09/23/20 04:36 Lymph % (Auto) 3.1 % (13.4-35.0) L 09/22/20 05:38 [place] % (Auto) 10.7 % (0.0-7.3) H 09/22/20 05:38 Eos % (Auto) 0.1 % (0.0-4.3) 09/22/20 05:38 Baso % (Auto) 0.2 % (0.0-1.8) 09/22/20 05:38 Lymph # (Auto) 0.5 K/mm3 (1.2-5.4) L 09/22/20 05:38 [place] # (Auto) 1.7 K/mm3 (0.0-0.8) H 09/22/20 05:38 Eos # (Auto) 0.0 K/mm3 (0.0-0.4) 09/22/20 05:38 Baso # (Auto) 0.0 K/mm3 (0.0-0.1) 09/22/20 05:38 Add Manual Diff Complete 09/23/20 04:36 Total Counted 100 09/23/20 04:36 Seg Neutrophils % [employer] L[employer]arian 09/23/20 04:36 Seg Neuts % (Manual) 91.0 % (40.0-70.0) H 09/23/20 04:36 Band Neutrophils % 2.0 % 09/23/20 04:36 Lymphocytes % (Manual) 2.0 % (13.4-35.0) L 09/23/20 04:36 Monocytes % (Manual) 5.0 % (0.0-7.3) 09/23/20 04:36 Nucleated RBC % Not Reportable 09/23/20 04:36 Seg Neutrophils # 13.6 K/mm3 (1.8-7.7) H 09/22/20 05:38 Seg Neutrophils # Man 12.9 K/mm3 (1.8-7.7) H 09/23/20 04:36 Band Neutrophils # 0.3 K/mm3 09/23/20 04:36 Lymphocytes # (Manual) 0.3 K/mm3 (1.2-5.4) L 09/23/20 04:36 Abs React Lymphs (Man) 0.0 K/mm3 09/23/20 04:36 Monocytes # (Manual) 0.7 K/mm3 (0.0-0.8) 09/23/20 04:36 Eosinophils # (Manual) 0.0 K/mm3 (0.0-0.4) 09/23/20 04:36 Basophils # (Manual) 0.0 K/mm3 (0.0-0.1) 09/23/20 04:36 Metamyelocytes # 0.0 K/mm3 09/23/20 04:36 Myelocytes # 0.0 K/mm3 09/23/20 04:36 Promyelocytes # 0.0 K/mm3 09/23/20 04:36 Blast Cells # 0.0 K/mm3 09/23/20 04:36 WBC Morphology Not Reportable 09/23/20 04:36 Hypersegmented Neuts Not Reportable 09/23/20 04:36 Hyposegmented Neuts Not Reportable 09/23/20 04:36 Hypogranular Neuts Not Reportable 09/23/20 04:36 Smudge Cells Not Reportable 09/23/20 04:36 Toxic Granulation Not Reportable 09/23/20 04:36 Toxic Vacuolation Not Reportable 09/23/20 04:36 Dohle Bodies Not Reportable 09/23/20 04:36 Pelger-Huet Anomaly Not Reportable 09/23/20 04:36 Vinh Rods Not Reportable 09/23/20 04:36 Platelet Estimate Consistent w auto 09/23/20 04:36 Clumped Platelets Not Reportable 09/23/20 04:36 Plt Clumps, EDTA Not Reportable 09/23/20 04:36 Large Platelets Not Reportable 09/23/20 04:36 Giant Platelets Not Reportable 09/23/20 04:36 Platelet Satelliting Not Reportable 09/23/20 04:36 Plt Morphology Comment Not Reportable 09/23/20 04:36 RBC Morphology Not Reportable 09/23/20 04:36 Dimorphic RBCs Not Reportable 09/23/20 04:36 Polychromasia Not Reportable 09/23/20 04:36 Hypochromasia Not Reportable 09/23/20 04:36 Poikilocytosis Not Reportable 09/23/20 04:36 Anisocytosis 1+ 09/23/20 04:36 Microcytosis Not Reportable 09/23/20 04:36 Macrocytosis Not Reportable 09/23/20 04:36 Spherocytes Not Reportable 09/23/20 04:36 Pappenheimer Bodies Not Reportable 09/23/20 04:36 Sickle Cells Not Reportable 09/23/20 04:36 Target Cells Few 09/23/20 04:36 Tear Drop Cells Not Reportable 09/23/20 04:36 Ovalocytes Not Reportable 09/23/20 04:36 Helmet Cells Not Reportable 09/23/20 04:36 Lazo-Culp Bodies Not Reportable 09/23/20 04:36 [place] Rings Not Reportable 09/23/20 04:36 [place] Cells Not Reportable 09/23/20 04:36 Bite Cells Not Reportable 09/23/20 04:36 Crenated Cell Not Reportable 09/23/20 04:36 Elliptocytes Not Reportable 09/23/20 04:36 Acanthocytes (Spur) Not Reportable 09/23/20 04:36 Rouleaux Not Reportable 09/23/20 04:36 Hemoglobin C Crystals Not Reportable 09/23/20 04:36 Schistocytes Not Reportable 09/23/20 04:36 Malaria parasites Not Reportable 09/23/20 04:36 Zachary Bodies Not Reportable 09/23/20 04:36 Hem Pathologist Commnt No 09/23/20 04:36 PT 17.3 Sec. (12.2-14.9) H 09/22/20 15:12 INR 1.42 (0.87-1.13) H 09/22/20 15:12 APTT 28.6 Sec. (24.2-36.6) 09/22/20 15:12 D-Dimer 3281.49 ng/mlDDU (0-234) H 09/22/20 05:38 Heparin Anti-Xa Level 0.10 U.I./ml (0.3-0.7) L 09/20/20 04:00 ABG pH 7.508 (7.320-7.450) H 09/17/20 10:28 POC ABG pCO2 22.8 mmHg (32.0-48.0) L 09/17/20 10:28 POC ABG pO2 66.8 mmHg (83-108) L 09/17/20 10:28 POC ABG HCO3 17.7 09/17/20 10:28 ABG O2 Saturation 93.4 (0-100) 09/17/20 10:28 POC ABG Base Excess -3.5 09/17/20 10:28 ABG Hemoglobin 12.7 (12.0-17.5) 09/17/20 10:28 ABG Oxyhemoglobin 92.7 (94-98) L 09/17/20 10:28 ABG Methemoglobin 0.3 (0.0-1.5) 09/17/20 10:28 ABG Sodium 127.4 mmol/L (136.0-145.0) L 09/17/20 10:28 ABG Potassium 4.7 mmol/L (3.40-4.50) H 09/17/20 10:28 ABG Chloride 101.0 mmol/L (98-107) 09/17/20 10:28 ABG Glucose 121 mg/dL (65-95) H 09/17/20 10:28 Carboxyhemoglobin 0.4 (0.5-1.5) L 09/17/20 10:28 FiO2 % 21 09/17/20 10:28 Sodium 138 mmol/L (137-145) 09/23/20 04:36 Potassium 4.0 mmol/L (3.6-5.0) 09/23/20 04:36 Chloride 104.0 mmol/L (98-107) 09/23/20 04:36 Carbon Dioxide 25 mmol/L (22-30) 09/23/20 04:36 Anion Gap 13 mmol/L 09/23/20 04:36 BUN 76 mg/dL (9-20) H 09/23/20 04:36 Creatinine 3.1 mg/dL (0.8-1.3) H 09/23/20 04:36 Estimated GFR 24 ml/min 09/23/20 04:36 BUN/Creatinine Ratio 25 % 09/23/20 04:36 Glucose 157 mg/dL (75-100) H 09/23/20 04:36 POC Glucose 141 mg/dL (70-105) H 09/23/20 11:38 Lactic Acid 1.00 mmol/L (0.7-2.0) 09/20/20 17:10 Calcium 8.6 mg/dL (8.4-10.2) 09/23/20 04:36 Phosphorus 6.30 mg/dL (2.5-4.5) H 09/19/20 03:30 Magnesium 1.80 mg/dL (1.7-2.3) 09/17/20 10:47 Ferritin 927.8 ng/mL (30.0-300.0) H 09/22/20 05:38 Total Bilirubin 2.40 mg/dL (0.1-1.2) H 09/21/20 Unknown AST 31 units/L (5-40) 09/21/20 Unknown ALT 57 units/L (7-56) H 09/21/20 Unknown Alkaline Phosphatase < 5 units/L (35-129) L 09/21/20 Unknown Lactate Dehydrogenase 277 units/L (91-180) H 09/22/20 05:38 Total Creatine Kinase 20 units/L (55-170) L 09/19/20 03:30 Troponin T < 0.010 ng/mL (0.00-0.029) 09/22/20 05:38 C-Reactive Protein 6.60 mg/dL (0.00-1.30) H 09/22/20 05:38 NT-Pro-B Natriuret Pep 23883 pg/mL (0-900) H 09/17/20 10:47 Total Protein 6.7 g/dL (6.3-8.2) 09/21/20 Unknown Albumin 1.9 g/dL (3.9-5) L 09/21/20 Unknown Albumin/Globulin Ratio 0.4 % 09/21/20 Unknown Triglycerides 137 mg/dL (2-149) 09/17/20 13:54 Cholesterol 48 mg/dL (50-199) L 09/17/20 13:54 LDL Cholesterol Direct 4 mg/dL (50-130) L 09/17/20 13:54 HDL Cholesterol 9 mg/dL (40-59) L 09/17/20 13:54 Cholesterol/HDL Ratio 5.33 % 09/17/20 13:54 Procalcitonin 23.83 ng/mL (<0.15) 09/20/20 17:10 PTH Intact 161.4 pg/mL (15-65) H 09/19/20 03:30 Arterial Blood Glucose 121 mg/dL (65-95) H 09/17/20 10:28 Arterial Blood Ionized Calcium 5.0 mg/dL (4.6-5.3) 09/17/20 10:28 Urine Color Yellow (Yellow) 09/18/20 12:00 Urine Turbidity Cloudy (Clear) 09/18/20 12:00 Urine pH 5.0 (5.0-7.0) 09/18/20 12:00 Ur Specific [place] 1.009 (1.003-1.030) 09/18/20 12:00 Urine Protein 30 mg/dl mg/dL (Negative) 09/18/20 12:00 Urine Glucose (UA) Neg mg/dL (Negative) 09/18/20 12:00 Urine Ketones Neg mg/dL (Negative) 09/18/20 12:00 Urine Blood Sm (Negative) 09/18/20 12:00 Urine Nitrite Neg (Negative) 09/18/20 12:00 Urine Bilirubin Neg (Negative) 09/18/20 12:00 Urine Urobilinogen < 2.0 mg/dL (<2.0) 09/18/20 12:00 Ur Leukocyte Esterase Mod (Negative) 09/18/20 12:00 Urine WBC (Auto) 71.0 /HPF (0.0-6.0) H 09/18/20 12:00 Urine RBC (Auto) 2.0 /HPF (0.0-6.0) 09/18/20 12:00 U Epithel Cells (Auto) 1.0 /HPF (0-13.0) 09/18/20 12:00 Urine Bacteria (Auto) 4+ /HPF (Negative) 09/18/20 12:00 Urine WBC Clumps 2+ /HPF 09/18/20 12:00 Hyaline Casts 3 /LPF 09/18/20 12:00 Granular Casts 3 /LPF 09/18/20 12:00 Urine Mucus Few /HPF 09/18/20 12:00 Urine Eosinophils None seen (None Seen) 09/19/20 03:15 Urine Creatinine 61.0 mg/dL (0.1-20.0) H 09/18/20 12:00 Urine Sodium 62 mmol/L 09/18/20 12:00 Random Vancomycin 12.7 ug/mL (0-40.0) 09/19/20 03:30 Coronavirus (PCR) Positive (Negative) A 09/18/20 09:39 Hepatitis A IgM Ab Non-reactive (NonReactive) 09/20/20 17:10 Hep Bs Antigen Non-reactive (Negative) 09/20/20 17:10 Hep B Core IgM Ab Non-reactive (NonReactive) 09/20/20 17:10 Hepatitis C Antibody Non-reactive (NonReactive) 09/20/20 17:10 HIV-1 RNA PCR copies/ml 67 Copies/mL H 09/19/20 13:35 HIV-1 RNA (PCR) log 1.83 Log cps/mL H 09/19/20 13:35 [place]/IV: Voiding Method Condom Catheter Active Medications - Current Medications Current Medications: Generic Name Dose Route Start Last Admin Trade Name Freq PRN Reason Stop Dose Admin Acetaminophen 650 mg 09/17/20 13:52 Acetaminophen 325 Mg Tab PO Q4H PRN Pain MILD(1-3)/Fever >100.5/ANGEL Albuterol 2.5 mg 09/17/20 13:52 09/17/20 20:47 Albuterol 2.5 Mg/3 Ml Nebu IH 2.5 mg Q4HRT PRN Administration Shortness Of Breath Lipase/Protease/Amylase 1 each 09/20/20 13:10 Lipase 10,500/Protease 25,000/Amylase 43,750 (Units) Dr Cap FEEDTUBE PRN PRN For Clogged Feeding Tube Ascorbic Acid 500 mg 09/20/20 22:00 09/23/20 09:06 Ascorbic Acid 500 Mg Tab PO 500 mg BID EDIE Administration Cholecalciferol 1,000 unit 09/21/20 10:00 09/23/20 09:07 Cholecalciferol (Vit D3) 1000 Unit (25 Mcg) Tab PO 1,000 unit QDAY EDIE Administration Dexamethasone 6 mg 09/20/20 17:00 09/23/20 09:06 Dexamethasone 4 Mg Tab PO 09/29/20 10:01 6 mg QDAY EDIE Administration Emtricitabine 200 mg 09/20/20 12:00 09/20/20 18:40 Emtricitabine 200 Mg Cap PO 200 mg Q96H EDIE Administration Famotidine 20 mg 09/18/20 16:00 09/23/20 09:07 Famotidine 20 Mg/2 Ml Inj IV 20 mg QDAY EDIE Administration Heparin Sodium (Porcine) 3,000 unit 09/20/20 10:06 Heparin 10,000 Units/10 Ml Vial IV VIRGIL PRN hemodialysis Amiodarone HCl 900 mg/ 500 mls @ 33.333 mls/hr 09/18/20 12:00 09/23/20 11:03 Dextrose IV 0.5 mg/min DIRECT EDIE 16.667 mls/hr Infusion Protocol 1 MG/MIN Norepinephrine 4 mg in 250 mls @ 7.5 mls/hr 09/19/20 11:00 09/23/20 03:51 Levophed Drip 4 Mg/Ns 250 Ml IV 0 mcg/min TITR EDIE 0 mls/hr Titration Protocol 2 MCG/MIN Sodium Chloride 100 mls @ 999 mls/hr 09/20/20 10:06 Nacl 0.9% IV VIRGIL PRN Hypotension Vasopressin 20 unit/ Sodium 101 mls @ 9.09 mls/hr 09/20/20 17:00 09/23/20 03:51 Chloride IV 0.03 units/min TITR EDIE 9.09 mls/hr Administration Protocol 0.03 UNITS/MIN Ceftriaxone Sodium 2 gm in 100 mls @ 200 mls/hr 09/22/20 13:00 09/23/20 09:06 Rocephin/Ns 2 Gm/100 Ml IV 200 mls/hr Q24HR EDIE Administration Protocol Metoprolol Tartrate 5 mg 09/19/20 19:06 09/22/20 19:57 Metoprolol Tartrate 5 Mg/5 Ml Inj IV 5 mg Q8HR PRN Administration HR > 135 Minute Midodrine 5 mg 09/22/20 12:00 09/23/20 11:02 Midodrine 5 Mg Tab PO 5 mg TID@0800,1200,1600 EDIE Administration Ondansetron HCl 4 mg 09/17/20 13:52 Ondansetron 4 Mg/2 Ml Inj IV Q8H PRN Nausea And Vomiting Oxycodone HCl 5 mg 09/21/20 13:14 09/23/20 09:05 Oxycodone 5 Mg Tab PO 5 mg Q6H PRN Administration Pain, Moderate (4-6) Simple Syrup 15 ml 09/20/20 13:10 Simple Syrup 15 Ml FEEDTUBE PRN PRN Hypoglycemia Simple Syrup 30 ml 09/20/20 13:10 Simple Syrup 15 Ml FEEDTUBE PRN PRN Hypoglycemia Sodium Bicarbonate 325 mg 09/20/20 13:10 Sodium Bicarbonate 325 Mg Tab FEEDTUBE PRN PRN For Clogged Feeding Tube Sodium Chloride 10 ml 09/17/20 22:00 09/23/20 09:29 Sodium Chloride 0.9% 10 Ml Flush Syringe IV Not Given BID EDIE Sodium Chloride 10 ml 09/17/20 13:52 Sodium Chloride 0.9% 10 Ml Flush Syringe IV PRN PRN LINE FLUSH Tenofovir Disoproxil Fumarate 300 mg 09/20/20 22:00 09/20/20 22:25 Tenofovir 300 Mg Tab PO 300 mg Mo EDIE Administration Zinc Sulfate 220 mg 09/21/20 10:00 09/23/20 09:07 Zinc Sulfate 220 Mg Cap PO 220 mg QDAY EDIE Administration Nutrition/Malnutrition Assess - Dietary Evaluation Nutrition/Malnutrition Findings: Nutrition Notes Start: 09/18/20 11 :30 Freq: Status: Active Protocol: Document 09/22/20 08:35 AT (Rec: 09/22/20 08:45 AT [id number]) Co-Sign 09/22/20 08:35 MK Nutrition Notes Initial or Follow up Reassessment Current Diagnosis Acute Kidney Injury,Heart Failure Other Pertinent Diagnosis COVID-19(+), [place], AMS, Cholethiasis, on HD Current Diet Nepro 1.8 at 45 mL/hr Labs/Tests BUN 61 Cr 3.1 BG 129 Pertinent Medications Vitamin C Vitamin D3 Decadron Levophed NS at 75 mL/hr Vasopressin Height 6 ft 1 in Weight 72.3 kg [place] Body Weight (kg) 83.63 BMI 21.0 Weight Status Underweight Subjective/Other Information Follow up for TF goal and tolerance. The pt is currently at 35 mL/hr and is tolerating the TF well per RN. The pt will be at goal by this afternoon. Percent of energy/protein needs met: 82%/78% Burn Absent Trauma Absent GI Symptoms Last BM,Other Current % PO Negligible Minimum of two criteria No Reduced Customer Relations Coordinator Strength Measurably Reduced (severe) #2 Nutrition Diagnosis Inadequate oral intake Etiology AMS As Evidenced by Signs and Symptoms pt requiring TF #1 Nutrition Diagnosis Inadequate energy intake As Evidenced by Signs and Symptoms pt on TF (Nepro 1.8) meeting 82% EER and 78% of estimated protein needs Diagnosis Progress(for reassessment Resolved documentation) Is patient on ventilator? No Is Patient Ambulatory and/or Out of Bed No REE-([facility]-confined to bed) 1850.100 Calculation Used for Recommendations [facility] Additional Notes PRO needs: >87 g(>1.2 g/kg for HD) Fluid needs: 1 mL/kcal or per MD Nutrition Intervention Change Diet Order: Continue TF Nutrition Support: Nepro 1.8 at 45 ml/hr with a free water flush of 200 ml q4h Kcal 1,944 Protein (gm) 87 Fluid (mL) 785 Goal #1 Meet at least 75% of estimated kcal and protein needs via TF Goal #2 TF tolerance Goal #3 Weight maintenance/weight gain Anticipated Discharge Needs: Unable to determine at this time. Follow-Up By: 09/24/20 Additional Comments F/U for goal and TF tolerance
--- NOTE | 2020-09-23 12:36 | Progress Note ---
Assessment and Plan * A. fib with RVR * Telemetry reviewed: A. fib 80s. No events * Optimize rate control. Patient currently on amiodarone gtt. 1 mg/minute. Will wean as tolerated, trial 0.5 mg/min. Patient is still requiring multiple vasopressors to maintain him hemostasis thus unable to tolerate AV leno blocking agents for rate control. * No anticoagulation in the setting of severe thrombocytopenia. Discontinue Eliquis due to risk of significant bleeding. * NSTEMI * Troponins elevated, subacute and nonspecific over the weekend. Suspect lab error. Repeat troponins are normal. * Echocardiogram reviewed (09/18/2020): LVEF is 40 to 45%. LV SF is mildly decreased. Mild concentric LVH. RV SF is mildly reduced. No valvular abnormalities. * LOLI with acute tubular necrosis * Patient on dialysis. Nephrology is following. * No GEMA/ARB in setting of LOLI. Avoid nephrotoxic agents. * DVT prophylaxis * No AC in setting of severe thrombocytopenia We will follow This patient was seen in conjunction with Dr Avila who agrees with this assessment and plan of care - Patient Problems (1) AMS (altered mental status) Current Visit: Yes Status: Acute Qualifiers: Altered mental status type: somnolence Qualified Code(s): R40.0 - Somnolence (2) Acute hypoxemic respiratory failure Current Visit: Yes Status: Acute (3) Acute kidney injury (LOLI) with acute tubular necrosis (ATN) Current Visit: Yes Status: Acute (4) Atrial fibrillation with RVR Current Visit: Yes Status: Acute (5) NSTEMI (non-ST elevated myocardial infarction) Current Visit: Yes Status: Acute (6) Metabolic acidosis Current Visit: No Status: Acute (7) Systemic inflammatory response syndrome Current Visit: No Status: Acute Subjective Date of service: 09/23/20 Principal diagnosis: Ac hypoxemic resp failure; A-fib RVR; AE-CHF; LOLI; Septic shock; UTI Interval history: Patient is resting in bed. Altered mental status in the setting of septic shock. Telemetry reviewed: A. fib 80s. No events Objective Last Vital Signs Temp 98.6 F 09/23/20 12:00 Pulse 74 09/23/20 12:00 Resp 17 09/23/20 12:00 BP 104/75 09/23/20 11:00 Pulse Ox 100 09/23/20 12:00 - Physical Examination General: No Apparent Distress HEENT: Positive: PERRL Neck: Positive: neck supple Cardiac: Positive: irregularly irregular, S1/S2 Lungs: Positive: Decreased Breath Sounds Neuro: Positive: Grossly Intact Abdomen: Positive: Soft Skin: Negative: Rash, Wound Musculoskeletal: No Pain Extremities: Present: normal. Absent: edema - Labs and Meds Coagulation 09/22/20 Range/Units 15:12 PT 17.3 H (12.2-14.9) Sec. INR 1.42 H (0.87-1.13) APTT 28.6 (24.2-36.6) Sec. CBC 09/23/20 Range/Units 04:36 WBC 14.2 H (4.5-11.0) K/mm3 RBC 3.05 L (3.65-5.03) M/mm3 Hgb 9.8 L (11.8-15.2) gm/dl Hct 28.4 L (35.5-45.6) % Plt Count 39 L (140-440) K/mm3 Comprehensive Metabolic Panel 09/22/20 09/23/20 Range/Units 15:12 04:36 Sodium 138 (137-145) mmol/L Potassium 4.0 (3.6-5.0) mmol/L Chloride 104.0 (98-107) mmol/L Carbon Dioxide 25 (22-30) mmol/L BUN 76 H (9-20) mg/dL Creatinine 3.0 H 3.1 H (0.8-1.3) mg/dL Glucose 157 H (75-100) mg/dL Calcium 8.6 (8.4-10.2) mg/dL - Imaging and Cardiology EKG: report reviewed, image reviewed Echo: report reviewed (Echocardiogram reviewed (09/18/2020): LVEF is 40 to 45%. LV SF is mildly decreased. Mild concentric LVH. RV SF is mildly reduced. No valvular abnormality) - Telemetry EKG Rhythm: Atrial Fibrillation - Allied health notes Allied health notes reviewed: nursing
--- NOTE | 2020-09-23 12:49 | Progress Note ---
Assessment and Plan Acute hypoxemic respiratory failure. Atrial fibrillation with rapid ventricular response. Gram negative bacteremia Acute congestive heart failure exacerbation. Acute on chronic kidney injury. Anemia that is microcytic. Coagulopathy appears to be acquired. Respiratory alkalosis. Mild metabolic acidosis. Possible severe sepsis with shock due to a urinary tract infection. Urinary tract infection (i do feel that despite his CHF history he is septic now and with relative IVVD and will benefit from gentle hydration acutely - CT head negative - place Fentanyl 25 rylee's/hr patch X 1 - get mid-line and discontinue R. Femoral CVL (use Trialysis for vasopressors) - get CXR and address - Mag Citrate 300 mls X 1 and begin bowel regimen - watch for bleeding - follow HIT assay - complete IVNS @ 75 mls/hr X 2 liters - continue to wean vasopressors for target MAP > 65 mmHg - continue enteral nutrition @ goal rate as tolerated - complete AB's per ID recommendations - continue care as below otherwise; - continue to wean supplemental oxygen for target O2 sat's > 92% acutely - Aspiration precautions - continue bronchodilators with pulmonary hygiene per RT - continue accuchecks with glycemic control per SSI (While critically ill target blood glucose of 140-180 mg/dL; avoid hypoglycemia) - avoid nephrotoxins, renally dose all medications - continue to avoid benzodiazepine's, reduce the possibility of delirium - complete AB's per ID rec's (on Cefepime) - prn analgesia per pain score - Maintenance of sleep-wake cycle, avoid delirium - G.I. & VTE prophylaxis - PT/OT/ROM exercises - continue mobility protocols for pressure ulcer prophylaxis - Monitor hemodynamics closely - continue other care per attending / other consultants - discharge planning ongoing concurrently COVID SPECIFIC INTERVENTIONS - Remdesivir as per ID/Pulmonary developed protocols - systemic steroids for severe COVID-19 infection (on Decadron) - follow repeat COVID tests results - zinc and vitamin C supplementation - Monitor inflammatory markers per facility protocol - ferritin, Ddimer, CRP - therapeutic anticoagulation per system Protocol based on d-dimer and clinical considerations - Continue contact and airborne isolation .... Re-evaluate in am & prn CONDITION: CRITICAL PROGNOSIS: GUARDED CODE STATUS: FULL CODE The high probability of a clinically significant, sudden or life-threatening deterioration of the [respiratory, cardiovascular & neurologic] system(s) required my full and direct attention, intervention and personal management. The aggregate critical care time was [32] minutes without overlap. Time includes spent on; [x] Data Review and interpretation [x] Patient assessment and monitoring of vital signs [x] Documentation [x] Medication orders and management Subjective Date of service: 09/23/20 Principal diagnosis: Ac hypoxemic resp failure; A-fib RVR; AE-CHF; LOLI; Septic shock; UTI Interval history: Patient is seen today for: Acute hypoxemic respiratory failure; A-fib with RVR; AE-CHF; LOLI on CKD; Severe sepsis with shock; UTI Seen and examined at bedside; 24hour events reviewed; nursing and respiratory care staff consulted; no adverse overnight events reported to me; resting peacefully in bed; Eliquis held re: thrombocytopenia; weaned off Levophed but remains on vasopressin; tolerating tube feeds well but no BM's; + ? uncontrolled pain issues Objective Vital Signs - 12hr 09/23/20 09/23/20 09/23/20 01:00 01:15 01:30 Temperature Pulse Rate 82 89 93 H Pulse Rate [ From Monitor] Respiratory 13 16 21 Rate Blood Pressure 150/109 141/114 151/102 O2 Sat by Pulse 100 100 100 Oximetry 09/23/20 09/23/20 09/23/20 01:45 01:53 02:00 Temperature Pulse Rate 89 105 H Pulse Rate [ 97 H From Monitor] Respiratory 16 17 17 Rate Blood Pressure 134/101 138/103 O2 Sat by Pulse 100 100 100 Oximetry 09/23/20 09/23/20 09/23/20 02:15 02:30 02:45 Temperature Pulse Rate 97 H 94 H 95 H Pulse Rate [ From Monitor] Respiratory 16 16 15 Rate Blood Pressure 138/104 135/100 135/100 O2 Sat by Pulse 100 100 100 Oximetry 09/23/20 09/23/20 09/23/20 03:01 03:15 03:30 Temperature Pulse Rate 90 93 H 95 H Pulse Rate [ From Monitor] Respiratory 15 18 15 Rate Blood Pressure 117/84 111/85 115/81 O2 Sat by Pulse 100 100 100 Oximetry 09/23/20 09/23/20 09/23/20 03:45 03:54 04:00 Temperature 97.6 F Pulse Rate 94 H 889 H 82 Pulse Rate [ 82 From Monitor] Respiratory 16 18 15 Rate Blood Pressure 115/81 126/84 102/76 O2 Sat by Pulse 100 99 100 Oximetry 09/23/20 09/23/20 09/23/20 04:15 04:30 04:45 Temperature Pulse Rate 95 H 92 H 97 H Pulse Rate [ From Monitor] Respiratory 16 13 18 Rate Blood Pressure 102/76 102/67 107/75 O2 Sat by Pulse 100 100 100 Oximetry 09/23/20 09/23/20 09/23/20 05:00 05:15 05:30 Temperature Pulse Rate 91 H 81 88 Pulse Rate [ From Monitor] Respiratory 16 15 15 Rate Blood Pressure 110/77 103/75 106/83 O2 Sat by Pulse 100 100 100 Oximetry 09/23/20 09/23/20 09/23/20 05:45 06:00 06:15 Temperature Pulse Rate 89 88 87 Pulse Rate [ From Monitor] Respiratory 24 17 16 Rate Blood Pressure 106/79 98/73 O2 Sat by Pulse 100 100 100 Oximetry 09/23/20 09/23/20 09/23/20 06:30 06:45 07:00 Temperature 97.7 F Pulse Rate 87 89 92 H Pulse Rate [ From Monitor] Respiratory 15 17 15 Rate Blood Pressure 101/77 104/75 110/75 O2 Sat by Pulse 100 100 100 Oximetry 09/23/20 09/23/20 09/23/20 07:12 07:15 07:30 Temperature Pulse Rate 82 88 Pulse Rate [ From Monitor] Respiratory 15 19 Rate Blood Pressure 110/75 100/76 O2 Sat by Pulse 100 100 99 Oximetry 09/23/20 09/23/20 09/23/20 07:45 07:53 07:54 Temperature Pulse Rate 84 85 Pulse Rate [ 81 From Monitor] Respiratory 18 23 Rate Blood Pressure 103/73 O2 Sat by Pulse 100 100 Oximetry 09/23/20 09/23/20 09/23/20 08:00 08:15 08:30 Temperature Pulse Rate 92 H 84 85 Pulse Rate [ From Monitor] Respiratory 19 21 15 Rate Blood Pressure 100/72 90/63 93/64 O2 Sat by Pulse 99 100 99 Oximetry 09/23/20 09/23/20 09/23/20 08:45 09:01 09:15 Temperature Pulse Rate 93 H 86 87 Pulse Rate [ From Monitor] Respiratory 19 13 15 Rate Blood Pressure 85/65 85/65 97/67 O2 Sat by Pulse 100 100 Oximetry 09/23/20 09/23/20 09/23/20 09:30 09:45 10:01 Temperature Pulse Rate 83 89 91 H Pulse Rate [ From Monitor] Respiratory 17 19 16 Rate Blood Pressure 102/72 95/71 104/71 O2 Sat by Pulse 100 100 Oximetry 09/23/20 09/23/20 09/23/20 10:15 10:30 10:45 Temperature Pulse Rate 90 79 94 H Pulse Rate [ From Monitor] Respiratory 19 13 16 Rate Blood Pressure 89/64 97/63 105/71 O2 Sat by Pulse 100 100 100 Oximetry 09/23/20 09/23/20 11:00 12:00 Temperature 98.6 F Pulse Rate 90 Pulse Rate [ 74 From Monitor] Respiratory 18 17 Rate Blood Pressure 104/75 O2 Sat by Pulse 100 100 Oximetry Constitutional: appears uncomfortable, other (elderly male with mildly increased respiratory effort at rest) Eyes: non-icteric ENT: oropharynx moist Neck: supple, no lymphadenopathy, no JVD Effort: mildly labored Ascultation: Bilateral: rhonchi Percussion: Bilateral: not dull Cardiovascular: irregular rhythm Gastrointestinal: normoactive bowel sounds, soft, non-tender, non-distended Integumentary: normal Extremities: no cyanosis, no edema, pulses normal, no ischemia or petechiae Neurologic: non-focal exam (grossly), pupils equal and round, CN II-XII normal, other (delirious) Psychiatric: other (delirious) CBC and BMP: 09/24/20 05:00 09/24/20 05:00 ABG, PT/INR, D-dimer: ABG ABG pH 7.508 (7.320-7.450) H 09/17/20 10:28 POC ABG pCO2 22.8 mmHg (32.0-48.0) L 09/17/20 10:28 POC ABG pO2 66.8 mmHg (83-108) L 09/17/20 10:28 POC ABG HCO3 17.7 09/17/20 10:28 ABG O2 Saturation 93.4 (0-100) 09/17/20 10:28 PT/INR, D-dimer PT 17.3 Sec. (12.2-14.9) H 09/22/20 15:12 INR 1.42 (0.87-1.13) H 09/22/20 15:12 D-Dimer 3281.49 ng/mlDDU (0-234) H 09/22/20 05:38 Abnormal lab findings: Abnormal Labs 09/17/20 09/17/20 09/17/20 10:28 10:47 10:47 WBC 11.1 H RBC 3.44 L Hgb 11.2 L Hct 32.8 L MCV 95 H MCH MCHC Plt Count Lymph % (Auto) [place] % (Auto) Lymph # (Auto) [place] # (Auto) Seg Neutrophils % Seg Neuts % (Manual) Lymphocytes % (Manual) 4.0 L Monocytes % (Manual) Nucleated RBC % Seg Neutrophils # Seg Neutrophils # Man 10.7 H Lymphocytes # (Manual) 0.4 L PT 32.9 H INR 3.16 H APTT 51.1 H D-Dimer Heparin Anti-Xa Level ABG pH 7.508 H POC ABG pCO2 22.8 L POC ABG pO2 66.8 L ABG Oxyhemoglobin 92.7 L ABG Sodium 127.4 L ABG Potassium 4.7 H ABG Glucose 121 H Carboxyhemoglobin 0.4 L Sodium Chloride Carbon Dioxide BUN Creatinine Glucose POC Glucose Calcium Phosphorus Ferritin Total Bilirubin AST ALT Alkaline Phosphatase Lactate Dehydrogenase Total Creatine Kinase Troponin T C-Reactive Protein NT-Pro-B Natriuret Pep Total Protein Albumin Cholesterol LDL Cholesterol Direct HDL Cholesterol PTH Intact Arterial Blood Glucose 121 H Urine WBC (Auto) Urine Creatinine Coronavirus (PCR) HIV-1 RNA PCR copies/ml HIV-1 RNA (PCR) log 09/17/20 09/17/20 09/17/20 10:47 10:47 13:54 WBC RBC Hgb Hct MCV MCH MCHC Plt Count Lymph % (Auto) [place] % (Auto) Lymph # (Auto) [place] # (Auto) Seg Neutrophils % Seg Neuts % (Manual) Lymphocytes % (Manual) Monocytes % (Manual) Nucleated RBC % Seg Neutrophils # Seg Neutrophils # Man Lymphocytes # (Manual) PT INR APTT D-Dimer Heparin Anti-Xa Level ABG pH POC ABG pCO2 POC ABG pO2 ABG Oxyhemoglobin ABG Sodium ABG Potassium ABG Glucose Carboxyhemoglobin Sodium 125 L Chloride 95.3 L Carbon Dioxide 17 L BUN 64 H Creatinine 4.6 H D Glucose 104 H POC Glucose Calcium Phosphorus Ferritin Total Bilirubin AST 69 H ALT Alkaline Phosphatase Lactate Dehydrogenase Total Creatine Kinase Troponin T 0.061 H D 0.058 H C-Reactive Protein NT-Pro-B Natriuret Pep 25327 H Total Protein Albumin 1.9 L Cholesterol 48 L LDL Cholesterol Direct 4 L HDL Cholesterol 9 L PTH Intact Arterial Blood Glucose Urine WBC (Auto) Urine Creatinine Coronavirus (PCR) HIV-1 RNA PCR copies/ml HIV-1 RNA (PCR) log 09/17/20 09/17/20 09/17/20 16:36 17:35 17:35 WBC RBC 3.25 L Hgb 10.7 L Hct 31.1 L MCV 96 H MCH 33 H MCHC Plt Count Lymph % (Auto) [place] % (Auto) Lymph # (Auto) [place] # (Auto) Seg Neutrophils % Seg Neuts % (Manual) Lymphocytes % (Manual) Monocytes % (Manual) Nucleated RBC % Seg Neutrophils # Seg Neutrophils # Man Lymphocytes # (Manual) PT 31.9 H INR 3.04 H APTT 50.9 H D-Dimer Heparin Anti-Xa Level ABG pH POC ABG pCO2 POC ABG pO2 ABG Oxyhemoglobin ABG Sodium ABG Potassium ABG Glucose Carboxyhemoglobin Sodium Chloride Carbon Dioxide BUN Creatinine Glucose POC Glucose Calcium Phosphorus Ferritin Total Bilirubin AST ALT Alkaline Phosphatase Lactate Dehydrogenase Total Creatine Kinase Troponin T 0.057 H C-Reactive Protein NT-Pro-B Natriuret Pep Total Protein Albumin Cholesterol LDL Cholesterol Direct HDL Cholesterol PTH Intact Arterial Blood Glucose Urine WBC (Auto) Urine Creatinine Coronavirus (PCR) HIV-1 RNA PCR copies/ml HIV-1 RNA (PCR) log 09/17/20 09/18/20 09/18/20 17:35 03:19 03:19 WBC RBC 3.32 L Hgb 10.9 L Hct 32.0 L MCV 96 H MCH 33 H MCHC Plt Count 138 L Lymph % (Auto) [place] % (Auto) Lymph # (Auto) [place] # (Auto) Seg Neutrophils % Seg Neuts % (Manual) 95.0 H Lymphocytes % (Manual) 3.0 L Monocytes % (Manual) Nucleated RBC % Seg Neutrophils # Seg Neutrophils # Man 8.1 H Lymphocytes # (Manual) 0.3 L PT INR APTT D-Dimer Heparin Anti-Xa Level ABG pH POC ABG pCO2 POC ABG pO2 ABG Oxyhemoglobin ABG Sodium ABG Potassium ABG Glucose Carboxyhemoglobin Sodium Chloride Carbon Dioxide 16 L BUN 70 H Creatinine 4.6 H 4.7 H Glucose 104 H POC Glucose Calcium 8.2 L Phosphorus Ferritin Total Bilirubin 1.60 H AST 128 H ALT 67 H Alkaline Phosphatase Lactate Dehydrogenase Total Creatine Kinase Troponin T C-Reactive Protein NT-Pro-B Natriuret Pep Total Protein 5.2 L D Albumin 2.5 L Cholesterol LDL Cholesterol Direct HDL Cholesterol PTH Intact Arterial Blood Glucose Urine WBC (Auto) Urine Creatinine Coronavirus (PCR) HIV-1 RNA PCR copies/ml HIV-1 RNA (PCR) log 09/18/20 09/18/20 09/18/20 09:39 12:00 12:00 WBC RBC Hgb Hct MCV MCH MCHC Plt Count Lymph % (Auto) [place] % (Auto) Lymph # (Auto) [place] # (Auto) Seg Neutrophils % Seg Neuts % (Manual) Lymphocytes % (Manual) Monocytes % (Manual) Nucleated RBC % Seg Neutrophils # Seg Neutrophils # Man Lymphocytes # (Manual) PT INR APTT D-Dimer Heparin Anti-Xa Level ABG pH POC ABG pCO2 POC ABG pO2 ABG Oxyhemoglobin ABG Sodium ABG Potassium ABG Glucose Carboxyhemoglobin Sodium Chloride Carbon Dioxide BUN Creatinine Glucose POC Glucose Calcium Phosphorus Ferritin Total Bilirubin AST ALT Alkaline Phosphatase Lactate Dehydrogenase Total Creatine Kinase Troponin T C-Reactive Protein NT-Pro-B Natriuret Pep Total Protein Albumin Cholesterol LDL Cholesterol Direct HDL Cholesterol PTH Intact Arterial Blood Glucose Urine WBC (Auto) 71.0 H Urine Creatinine 61.0 H Coronavirus (PCR) Positive A HIV-1 RNA PCR copies/ml HIV-1 RNA (PCR) log 09/18/20 09/18/20 09/18/20 15:07 15:07 18:33 WBC RBC Hgb 10.7 L Hct 31.3 L MCV MCH MCHC Plt Count Lymph % (Auto) [place] % (Auto) Lymph # (Auto) [place] # (Auto) Seg Neutrophils % Seg Neuts % (Manual) Lymphocytes % (Manual) Monocytes % (Manual) Nucleated RBC % Seg Neutrophils # Seg Neutrophils # Man Lymphocytes # (Manual) PT 20.3 H INR 1.73 H APTT 40.8 H D-Dimer Heparin Anti-Xa Level 1.09 H ABG pH POC ABG pCO2 POC ABG pO2 ABG Oxyhemoglobin ABG Sodium ABG Potassium ABG Glucose Carboxyhemoglobin Sodium Chloride Carbon Dioxide BUN Creatinine Glucose POC Glucose Calcium Phosphorus Ferritin Total Bilirubin AST ALT Alkaline Phosphatase Lactate Dehydrogenase Total Creatine Kinase Troponin T C-Reactive Protein NT-Pro-B Natriuret Pep Total Protein Albumin Cholesterol LDL Cholesterol Direct HDL Cholesterol PTH Intact Arterial Blood Glucose Urine WBC (Auto) Urine Creatinine Coronavirus (PCR) HIV-1 RNA PCR copies/ml HIV-1 RNA (PCR) log 09/19/20 09/19/20 09/19/20 03:30 03:30 03:30 WBC RBC 3.29 L Hgb 10.9 L Hct 30.9 L MCV MCH 33 H MCHC 35 H Plt Count Lymph % (Auto) [place] % (Auto) Lymph # (Auto) [place] # (Auto) Seg Neutrophils % Seg Neuts % (Manual) Lymphocytes % (Manual) Monocytes % (Manual) Nucleated RBC % Seg Neutrophils # Seg Neutrophils # Man Lymphocytes # (Manual) PT INR APTT D-Dimer Heparin Anti-Xa Level ABG pH POC ABG pCO2 POC ABG pO2 ABG Oxyhemoglobin ABG Sodium ABG Potassium ABG Glucose Carboxyhemoglobin Sodium 133 L Chloride Carbon Dioxide 17 L BUN 94 H Creatinine 5.0 H Glucose 120 H POC Glucose Calcium Phosphorus 6.30 H Ferritin Total Bilirubin 2.40 H AST 163 H ALT 109 H Alkaline Phosphatase 160 H Lactate Dehydrogenase Total Creatine Kinase 20 L Troponin T C-Reactive Protein NT-Pro-B Natriuret Pep Total Protein 6.2 L Albumin 2.0 L Cholesterol LDL Cholesterol Direct HDL Cholesterol PTH Intact 161.4 H Arterial Blood Glucose Urine WBC (Auto) Urine Creatinine Coronavirus (PCR) HIV-1 RNA PCR copies/ml HIV-1 RNA (PCR) log 09/19/20 09/19/20 09/19/20 06:35 13:35 23:37 WBC RBC Hgb Hct MCV MCH MCHC Plt Count Lymph % (Auto) [place] % (Auto) Lymph # (Auto) [place] # (Auto) Seg Neutrophils % Seg Neuts % (Manual) Lymphocytes % (Manual) Monocytes % (Manual) Nucleated RBC % Seg Neutrophils # Seg Neutrophils # Man Lymphocytes # (Manual) PT INR APTT D-Dimer Heparin Anti-Xa Level ABG pH POC ABG pCO2 POC ABG pO2 ABG Oxyhemoglobin ABG Sodium ABG Potassium ABG Glucose Carboxyhemoglobin Sodium Chloride Carbon Dioxide BUN Creatinine Glucose POC Glucose 123 H 135 H Calcium Phosphorus Ferritin Total Bilirubin AST ALT Alkaline Phosphatase Lactate Dehydrogenase Total Creatine Kinase Troponin T C-Reactive Protein NT-Pro-B Natriuret Pep Total Protein Albumin Cholesterol LDL Cholesterol Direct HDL Cholesterol PTH Intact Arterial Blood Glucose Urine WBC (Auto) Urine Creatinine Coronavirus (PCR) HIV-1 RNA PCR copies/ml 67 H HIV-1 RNA (PCR) log 1.83 H 09/20/20 09/20/20 09/20/20 04:00 04:00 04:00 WBC RBC 3.43 L Hgb 11.1 L Hct 32.2 L MCV MCH MCHC Plt Count 131 L Lymph % (Auto) [place] % (Auto) Lymph # (Auto) [place] # (Auto) Seg Neutrophils % Seg Neuts % (Manual) 88.0 H Lymphocytes % (Manual) 3.0 L Monocytes % (Manual) 9.0 H Nucleated RBC % Seg Neutrophils # Seg Neutrophils # Man 8.2 H Lymphocytes # (Manual) 0.3 L PT INR APTT D-Dimer Heparin Anti-Xa Level 0.10 L ABG pH POC ABG pCO2 POC ABG pO2 ABG Oxyhemoglobin ABG Sodium ABG Potassium ABG Glucose Carboxyhemoglobin Sodium Chloride Carbon Dioxide 16 L BUN 119 H Creatinine 6.2 H Glucose 136 H POC Glucose Calcium Phosphorus Ferritin Total Bilirubin AST ALT Alkaline Phosphatase Lactate Dehydrogenase Total Creatine Kinase Troponin T C-Reactive Protein NT-Pro-B Natriuret Pep Total Protein Albumin Cholesterol LDL Cholesterol Direct HDL Cholesterol PTH Intact Arterial Blood Glucose Urine WBC (Auto) Urine Creatinine Coronavirus (PCR) HIV-1 RNA PCR copies/ml HIV-1 RNA (PCR) log 09/20/20 09/20/20 09/20/20 05:37 11:20 17:10 WBC RBC Hgb Hct MCV MCH MCHC Plt Count Lymph % (Auto) [place] % (Auto) Lymph # (Auto) [place] # (Auto) Seg Neutrophils % Seg Neuts % (Manual) Lymphocytes % (Manual) Monocytes % (Manual) Nucleated RBC % Seg Neutrophils # Seg Neutrophils # Man Lymphocytes # (Manual) PT INR APTT D-Dimer Heparin Anti-Xa Level ABG pH POC ABG pCO2 POC ABG pO2 ABG Oxyhemoglobin ABG Sodium ABG Potassium ABG Glucose Carboxyhemoglobin Sodium Chloride Carbon Dioxide BUN Creatinine 6.0 H Glucose POC Glucose 137 H 108 H Calcium Phosphorus Ferritin Total Bilirubin AST ALT Alkaline Phosphatase Lactate Dehydrogenase Total Creatine Kinase Troponin T C-Reactive Protein NT-Pro-B Natriuret Pep Total Protein Albumin Cholesterol LDL Cholesterol Direct HDL Cholesterol PTH Intact Arterial Blood Glucose Urine WBC (Auto) Urine Creatinine Coronavirus (PCR) HIV-1 RNA PCR copies/ml HIV-1 RNA (PCR) log 09/20/20 09/20/20 09/20/20 17:10 17:10 17:10 WBC RBC Hgb Hct MCV MCH MCHC Plt Count Lymph % (Auto) [place] % (Auto) Lymph # (Auto) [place] # (Auto) Seg Neutrophils % Seg Neuts % (Manual) Lymphocytes % (Manual) Monocytes % (Manual) Nucleated RBC % Seg Neutrophils # Seg Neutrophils # Man Lymphocytes # (Manual) PT INR APTT D-Dimer 4271.58 H Heparin Anti-Xa Level ABG pH POC ABG pCO2 POC ABG pO2 ABG Oxyhemoglobin ABG Sodium ABG Potassium ABG Glucose Carboxyhemoglobin Sodium Chloride Carbon Dioxide BUN Creatinine Glucose POC Glucose Calcium Phosphorus Ferritin 696.6 H Total Bilirubin AST ALT Alkaline Phosphatase Lactate Dehydrogenase 209 H Total Creatine Kinase Troponin T C-Reactive Protein 10.60 H NT-Pro-B Natriuret Pep Total Protein Albumin Cholesterol LDL Cholesterol Direct HDL Cholesterol PTH Intact Arterial Blood Glucose Urine WBC (Auto) Urine Creatinine Coronavirus (PCR) HIV-1 RNA PCR copies/ml HIV-1 RNA (PCR) log 09/20/20 09/20/20 09/21/20 18:21 23:14 05:35 WBC RBC Hgb Hct MCV MCH MCHC Plt Count Lymph % (Auto) [place] % (Auto) Lymph # (Auto) [place] # (Auto) Seg Neutrophils % Seg Neuts % (Manual) Lymphocytes % (Manual) Monocytes % (Manual) Nucleated RBC % Seg Neutrophils # Seg Neutrophils # Man Lymphocytes # (Manual) PT INR APTT D-Dimer Heparin Anti-Xa Level ABG pH POC ABG pCO2 POC ABG pO2 ABG Oxyhemoglobin ABG Sodium ABG Potassium ABG Glucose Carboxyhemoglobin Sodium Chloride Carbon Dioxide BUN Creatinine Glucose POC Glucose 129 H 170 H 170 H Calcium Phosphorus Ferritin Total Bilirubin AST ALT Alkaline Phosphatase Lactate Dehydrogenase Total Creatine Kinase Troponin T C-Reactive Protein NT-Pro-B Natriuret Pep Total Protein Albumin Cholesterol LDL Cholesterol Direct HDL Cholesterol PTH Intact Arterial Blood Glucose Urine WBC (Auto) Urine Creatinine Coronavirus (PCR) HIV-1 RNA PCR copies/ml HIV-1 RNA (PCR) log 09/21/20 09/21/20 09/21/20 17:09 23:18 Unknown WBC RBC 3.56 L Hgb 11.3 L Hct 33.2 L MCV MCH MCHC Plt Count 125 L Lymph % (Auto) [place] % (Auto) Lymph # (Auto) [place] # (Auto) Seg Neutrophils % Seg Neuts % (Manual) 90.0 H Lymphocytes % (Manual) 8.0 L Monocytes % (Manual) Nucleated RBC % 1.0 H Seg Neutrophils # Seg Neutrophils # Man 9.4 H Lymphocytes # (Manual) 0.8 L PT INR APTT D-Dimer Heparin Anti-Xa Level ABG pH POC ABG pCO2 POC ABG pO2 ABG Oxyhemoglobin ABG Sodium ABG Potassium ABG Glucose Carboxyhemoglobin Sodium Chloride Carbon Dioxide BUN Creatinine Glucose POC Glucose 140 H 139 H Calcium Phosphorus Ferritin Total Bilirubin AST ALT Alkaline Phosphatase Lactate Dehydrogenase Total Creatine Kinase Troponin T C-Reactive Protein NT-Pro-B Natriuret Pep Total Protein Albumin Cholesterol LDL Cholesterol Direct HDL Cholesterol PTH Intact Arterial Blood Glucose Urine WBC (Auto) Urine Creatinine Coronavirus (PCR) HIV-1 RNA PCR copies/ml HIV-1 RNA (PCR) log 09/21/20 09/21/20 09/22/20 Unknown Unknown 05:38 WBC 15.8 H RBC 3.36 L Hgb 10.8 L Hct 31.0 L MCV MCH MCHC 35 H Plt Count 68 L Lymph % (Auto) 3.1 L [place] % (Auto) 10.7 H Lymph # (Auto) 0.5 L [place] # (Auto) 1.7 H Seg Neutrophils % 85.9 H Seg Neuts % (Manual) Lymphocytes % (Manual) Monocytes % (Manual) Nucleated RBC % Seg Neutrophils # 13.6 H Seg Neutrophils # Man Lymphocytes # (Manual) PT 16.8 H INR 1.36 H APTT D-Dimer Heparin Anti-Xa Level ABG pH POC ABG pCO2 POC ABG pO2 ABG Oxyhemoglobin ABG Sodium ABG Potassium ABG Glucose Carboxyhemoglobin Sodium Chloride Carbon Dioxide BUN 83 H Creatinine 4.3 H Glucose 163 H POC Glucose Calcium Phosphorus Ferritin Total Bilirubin 2.40 H AST ALT 57 H Alkaline Phosphatase < 5 L Lactate Dehydrogenase Total Creatine Kinase Troponin T C-Reactive Protein NT-Pro-B Natriuret Pep Total Protein Albumin 1.9 L Cholesterol LDL Cholesterol Direct HDL Cholesterol PTH Intact Arterial Blood Glucose Urine WBC (Auto) Urine Creatinine Coronavirus (PCR) HIV-1 RNA PCR copies/ml HIV-1 RNA (PCR) log 09/22/20 09/22/20 09/22/20 05:38 05:38 05:38 WBC RBC Hgb Hct MCV MCH MCHC Plt Count Lymph % (Auto) [place] % (Auto) Lymph # (Auto) [place] # (Auto) Seg Neutrophils % Seg Neuts % (Manual) Lymphocytes % (Manual) Monocytes % (Manual) Nucleated RBC % Seg Neutrophils # Seg Neutrophils # Man Lymphocytes # (Manual) PT INR APTT D-Dimer 3281.49 H Heparin Anti-Xa Level ABG pH POC ABG pCO2 POC ABG pO2 ABG Oxyhemoglobin ABG Sodium ABG Potassium ABG Glucose Carboxyhemoglobin Sodium Chloride Carbon Dioxide BUN 61 H Creatinine 3.1 H Glucose 129 H POC Glucose Calcium Phosphorus Ferritin 927.8 H Total Bilirubin AST ALT Alkaline Phosphatase Lactate Dehydrogenase 277 H Total Creatine Kinase Troponin T C-Reactive Protein 6.60 H NT-Pro-B Natriuret Pep Total Protein Albumin Cholesterol LDL Cholesterol Direct HDL Cholesterol PTH Intact Arterial Blood Glucose Urine WBC (Auto) Urine Creatinine Coronavirus (PCR) HIV-1 RNA PCR copies/ml HIV-1 RNA (PCR) log 09/22/20 09/22/20 09/22/20 05:44 11:26 15:12 WBC RBC Hgb Hct MCV MCH MCHC Plt Count Lymph % (Auto) [place] % (Auto) Lymph # (Auto) [place] # (Auto) Seg Neutrophils % Seg Neuts % (Manual) Lymphocytes % (Manual) Monocytes % (Manual) Nucleated RBC % Seg Neutrophils # Seg Neutrophils # Man Lymphocytes # (Manual) PT 17.3 H INR 1.42 H APTT D-Dimer Heparin Anti-Xa Level ABG pH POC ABG pCO2 POC ABG pO2 ABG Oxyhemoglobin ABG Sodium ABG Potassium ABG Glucose Carboxyhemoglobin Sodium Chloride Carbon Dioxide BUN Creatinine Glucose POC Glucose 112 H 131 H Calcium Phosphorus Ferritin Total Bilirubin AST ALT Alkaline Phosphatase Lactate Dehydrogenase Total Creatine Kinase Troponin T C-Reactive Protein NT-Pro-B Natriuret Pep Total Protein Albumin Cholesterol LDL Cholesterol Direct HDL Cholesterol PTH Intact Arterial Blood Glucose Urine WBC (Auto) Urine Creatinine Coronavirus (PCR) HIV-1 RNA PCR copies/ml HIV-1 RNA (PCR) log 09/22/20 09/22/20 09/22/20 15:12 16:53 23:55 WBC RBC Hgb Hct MCV MCH MCHC Plt Count Lymph % (Auto) [place] % (Auto) Lymph # (Auto) [place] # (Auto) Seg Neutrophils % Seg Neuts % (Manual) Lymphocytes % (Manual) Monocytes % (Manual) Nucleated RBC % Seg Neutrophils # Seg Neutrophils # Man Lymphocytes # (Manual) PT INR APTT D-Dimer Heparin Anti-Xa Level ABG pH POC ABG pCO2 POC ABG pO2 ABG Oxyhemoglobin ABG Sodium ABG Potassium ABG Glucose Carboxyhemoglobin Sodium Chloride Carbon Dioxide BUN Creatinine 3.0 H Glucose POC Glucose 138 H 171 H Calcium Phosphorus Ferritin Total Bilirubin AST ALT Alkaline Phosphatase Lactate Dehydrogenase Total Creatine Kinase Troponin T C-Reactive Protein NT-Pro-B Natriuret Pep Total Protein Albumin Cholesterol LDL Cholesterol Direct HDL Cholesterol PTH Intact Arterial Blood Glucose Urine WBC (Auto) Urine Creatinine Coronavirus (PCR) HIV-1 RNA PCR copies/ml HIV-1 RNA (PCR) log 09/23/20 09/23/20 09/23/20 04:36 04:36 05:41 WBC 14.2 H RBC 3.05 L Hgb 9.8 L Hct 28.4 L MCV MCH MCHC Plt Count 39 L Lymph % (Auto) [place] % (Auto) Lymph # (Auto) [place] # (Auto) Seg Neutrophils % Seg Neuts % (Manual) 91.0 H Lymphocytes % (Manual) 2.0 L Monocytes % (Manual) Nucleated RBC % Seg Neutrophils # Seg Neutrophils # Man 12.9 H Lymphocytes # (Manual) 0.3 L PT INR APTT D-Dimer Heparin Anti-Xa Level ABG pH POC ABG pCO2 POC ABG pO2 ABG Oxyhemoglobin ABG Sodium ABG Potassium ABG Glucose Carboxyhemoglobin Sodium Chloride Carbon Dioxide BUN 76 H Creatinine 3.1 H Glucose 157 H POC Glucose 136 H Calcium Phosphorus Ferritin Total Bilirubin AST ALT Alkaline Phosphatase Lactate Dehydrogenase Total Creatine Kinase Troponin T C-Reactive Protein NT-Pro-B Natriuret Pep Total Protein Albumin Cholesterol LDL Cholesterol Direct HDL Cholesterol PTH Intact Arterial Blood Glucose Urine WBC (Auto) Urine Creatinine Coronavirus (PCR) HIV-1 RNA PCR copies/ml HIV-1 RNA (PCR) log 09/23/20 11:38 WBC RBC Hgb Hct MCV MCH MCHC Plt Count Lymph % (Auto) [place] % (Auto) Lymph # (Auto) [place] # (Auto) Seg Neutrophils % Seg Neuts % (Manual) Lymphocytes % (Manual) Monocytes % (Manual) Nucleated RBC % Seg Neutrophils # Seg Neutrophils # Man Lymphocytes # (Manual) PT INR APTT D-Dimer Heparin Anti-Xa Level ABG pH POC ABG pCO2 POC ABG pO2 ABG Oxyhemoglobin ABG Sodium ABG Potassium ABG Glucose Carboxyhemoglobin Sodium Chloride Carbon Dioxide BUN Creatinine Glucose POC Glucose 141 H Calcium Phosphorus Ferritin Total Bilirubin AST ALT Alkaline Phosphatase Lactate Dehydrogenase Total Creatine Kinase Troponin T C-Reactive Protein NT-Pro-B Natriuret Pep Total Protein Albumin Cholesterol LDL Cholesterol Direct HDL Cholesterol PTH Intact Arterial Blood Glucose Urine WBC (Auto) Urine Creatinine Coronavirus (PCR) HIV-1 RNA PCR copies/ml HIV-1 RNA (PCR) log Allied health notes reviewed: nursing
--- NOTE | 2020-09-23 13:11 | Cat Scan Report ---
CT head without contrast HISTORY: ams. TECHNIQUE: Axial imaging performed from the skull apex through the skull base without the use of con trast. All CT scans at this location are performed using CT dose reduction for ALARA by means of aut omated exposure control. COMPARISON: None FINDINGS: Parenchyma: No acute intracranial hemorrhage or parenchymal abnormality. Ventricles: There is mild diffuse brain atrophy with commensurate ventricular enlargement which is l ikely age appropriate. Soft tissues: Soft tissues including the orbits appear normal. There is a small frontal scalp lipoma measuring 9 mm in thickness, 4 cm in length, and 4 cm in width. Bones: No acute osseous abnormality. Sinuses: Sinuses and mastoid air cells are clear. IMPRESSION: No acute abnormality. Signer Name: Calderon Clarke MD Signed: 09/23/2020 1:07 PM Workstation Name: [id number]
[2020-09-23] MEDS ORDERED: MAGNESIUM CITRATE 300 ML ORAL LIQD PO ONE (14:03)
[2020-09-23] MEDS ORDERED: HYDROmorphone 1 MG/1 ML INJ IV ONE (14:04)
[2020-09-23] MEDS ORDERED: fentaNYL 25 MCG/HR PATCH 72HR TD NR (14:05)
[2020-09-24 03:56] LABS: CD4/CD8 Ratio 0.7 (0.86-5.00)
[2020-09-24 05:18] LABS: Hematocrit 29.7 % (35.5-45.6); Mean Corpuscular HGB Conc 34 % (32-34); Mean Corpuscular Volume 92 fl (84-94); Red Blood Count 3.23 M/mm3 (3.65-5.03); Red Cell Distribution Width 13.8 % (13.2-15.2)
[2020-09-24 05:21] LABS: Platelet Count 74 K/mm3 (140-440)
[2020-09-24 05:51] LABS: C-Reactive Protein 4.2 mg/dL (0.00-1.30); Calcium 9.2 mg/dL (8.4-10.2)
[2020-09-24] MEDS: metroNIDAZOLE/NS 500 MG/100 ML 500 MG/100 ML BAG IV SCH ×2 (09:12→16:53)
[2020-09-24] MEDS: cefTRIAXone/NS 2 GM/100 ML 2 GM/100 ML BAG IV SCH (09:13)
[2020-09-24] MEDS: ZINC SULFATE 220 MG CAP PO SCH (09:13)
[2020-09-24] MEDS: DEXAMETHASONE 4 MG TAB PO SCH (09:13)
[2020-09-24] MEDS: CHOLECALCIFEROL (VIT D3) 1000 UNIT (25 mcg) TAB PO SCH (09:13)
[2020-09-24] MEDS: MIDODRINE 5 MG TAB PO SCH ×3 (09:13→16:54)
[2020-09-24] MEDS: ASCORBIC ACID 500 MG TAB PO SCH ×2 (09:14→21:04)
[2020-09-24] MEDS: FAMOTIDINE 20 MG TAB PO SCH (09:14)
[2020-09-24] MEDS: DOLUTEGRAVIR 50 MG TAB PO SCH (09:16)
[2020-09-24] MEDS: METOPROLOL TARTRATE 5 MG/5 ML INJ IV PRN (10:59)
[2020-09-24] MEDS: EMTRICITABINE 200 MG CAP PO SCH (11:00)
--- NOTE | 2020-09-24 11:00 | Progress Note ---
Assessment and Plan Acute hypoxemic respiratory failure. Atrial fibrillation with rapid ventricular response. Gram negative bacteremia Acute congestive heart failure exacerbation. Acute on chronic kidney injury. Anemia that is microcytic. Coagulopathy appears to be acquired. Respiratory alkalosis. Mild metabolic acidosis. Possible severe sepsis with shock due to a urinary tract infection. Urinary tract infection (i do feel that despite his CHF history he is septic now and with relative IVVD and will benefit from gentle hydration acutely - resume Eliquis 2.5 mg p.o. bid - repeat procalcitonin in am - begin scopolamine re: oropheryngeal secretions - continue care as below otherwise; - R. Femoral CVL discontinued (use Trialysis for vasopressors) - continue to watch for bleeding - follow HIT assay - continue enteral nutrition @ goal rate as tolerated - complete AB's per ID recommendations - continue to wean supplemental oxygen for target O2 sat's > 92% acutely - Aspiration precautions - continue bronchodilators with pulmonary hygiene per RT - continue accuchecks with glycemic control per SSI (While critically ill target blood glucose of 140-180 mg/dL; avoid hypoglycemia) - avoid nephrotoxins, renally dose all medications - continue to avoid benzodiazepine's, reduce the possibility of delirium - complete AB's per ID rec's (on Cefepime) - prn analgesia per pain score - Maintenance of sleep-wake cycle, avoid delirium - G.I. & VTE prophylaxis - PT/OT/ROM exercises - continue mobility protocols for pressure ulcer prophylaxis - Monitor hemodynamics closely - continue other care per attending / other consultants - discharge planning ongoing concurrently COVID SPECIFIC INTERVENTIONS - Remdesivir as per ID/Pulmonary developed protocols - systemic steroids for severe COVID-19 infection (on Decadron) - follow repeat COVID tests results - zinc and vitamin C supplementation - Monitor inflammatory markers per facility protocol - ferritin, Ddimer, CRP - therapeutic anticoagulation per system Protocol based on d-dimer and clinical considerations - Continue contact and airborne isolation ... will transfer to [facility] .... Re-evaluate in am & prn CONDITION: CRITICAL PROGNOSIS: GUARDED CODE STATUS: FULL CODE The high probability of a clinically significant, sudden or life-threatening deterioration of the [respiratory, cardiovascular & neurologic] system(s) required my full and direct attention, intervention and personal management. The aggregate critical care time was [34] minutes without overlap. Time includes spent on; [x] Data Review and interpretation [x] Patient assessment and monitoring of vital signs [x] Documentation [x] Medication orders and management Subjective Date of service: 09/24/20 Principal diagnosis: Ac hypoxemic resp failure; A-fib RVR; AE-CHF; LOLI; Septic shock; UTI Interval history: Patient is seen today for: Acute hypoxemic respiratory failure; A-fib with RVR; AE-CHF; LOLI on CKD; Severe sepsis with shock; UTI Seen and examined at bedside; 24hour events reviewed; nursing and respiratory care staff consulted; no adverse overnight events reported to me; resting peacefully in bed; slowly improving and now off vasopressors; started on midodrine; still delirious but a little better; no emesis or overt aspiration Objective Vital Signs - 12hr 09/23/20 09/23/20 09/23/20 23:00 23:15 23:30 Temperature Pulse Rate 116 H 115 H 110 H Pulse Rate [ From Monitor] Respiratory 17 17 18 Rate Blood Pressure 116/74 117/78 117/74 O2 Sat by Pulse 97 97 98 Oximetry 09/23/20 09/23/20 09/24/20 23:36 23:45 00:00 Temperature 97.8 F Pulse Rate 119 H 113 H Pulse Rate [ 112 H From Monitor] Respiratory 17 14 Rate Blood Pressure 117/75 123/79 O2 Sat by Pulse 98 99 Oximetry 09/24/20 09/24/20 09/24/20 00:15 00:30 00:46 Temperature Pulse Rate 113 H 117 H 120 H Pulse Rate [ From Monitor] Respiratory 18 16 18 Rate Blood Pressure 123/79 123/79 121/76 O2 Sat by Pulse 98 98 97 Oximetry 09/24/20 09/24/20 09/24/20 01:00 01:15 01:30 Temperature Pulse Rate 115 H 121 H 110 H Pulse Rate [ From Monitor] Respiratory 14 16 17 Rate Blood Pressure 121/76 124/83 114/75 O2 Sat by Pulse 98 99 99 Oximetry 09/24/20 09/24/20 09/24/20 01:46 02:00 02:16 Temperature Pulse Rate 113 H 111 H 107 H Pulse Rate [ From Monitor] Respiratory 15 17 18 Rate Blood Pressure 106/81 114/76 112/85 O2 Sat by Pulse 98 99 97 Oximetry 09/24/20 09/24/20 09/24/20 02:30 02:45 03:00 Temperature Pulse Rate 114 H 112 H 123 H Pulse Rate [ From Monitor] Respiratory 18 17 16 Rate Blood Pressure 123/82 115/86 121/80 O2 Sat by Pulse 99 98 98 Oximetry 09/24/20 09/24/20 09/24/20 03:16 03:30 03:41 Temperature 97.8 F Pulse Rate 116 H 112 H Pulse Rate [ From Monitor] Respiratory 14 17 Rate Blood Pressure 121/80 123/71 O2 Sat by Pulse 98 97 Oximetry 09/24/20 09/24/20 09/24/20 03:45 04:00 04:15 Temperature Pulse Rate 108 H 106 H 102 H Pulse Rate [ 106 H From Monitor] Respiratory 16 18 15 Rate Blood Pressure 129/75 125/87 121/70 O2 Sat by Pulse 99 97 98 Oximetry 09/24/20 09/24/20 09/24/20 04:30 04:45 05:00 Temperature Pulse Rate 111 H 104 H 119 H Pulse Rate [ From Monitor] Respiratory 15 11 L 17 Rate Blood Pressure 113/78 102/79 114/84 O2 Sat by Pulse 97 99 97 Oximetry 09/24/20 09/24/20 09/24/20 05:15 05:30 05:45 Temperature Pulse Rate 114 H 114 H 110 H Pulse Rate [ From Monitor] Respiratory 11 L 16 16 Rate Blood Pressure 122/78 122/75 122/81 O2 Sat by Pulse 98 99 97 Oximetry 09/24/20 09/24/20 09/24/20 06:00 06:16 06:30 Temperature Pulse Rate 111 H 112 H 111 H Pulse Rate [ From Monitor] Respiratory 15 14 16 Rate Blood Pressure 129/86 118/78 128/78 O2 Sat by Pulse 97 98 98 Oximetry 09/24/20 09/24/20 09/24/20 06:46 07:00 07:16 Temperature Pulse Rate 105 H 99 H 87 Pulse Rate [ From Monitor] Respiratory 16 17 14 Rate Blood Pressure 128/78 108/66 139/100 O2 Sat by Pulse 95 97 Oximetry 09/24/20 09/24/20 09/24/20 07:30 07:45 07:56 Temperature 97.9 F Pulse Rate 92 H 84 Pulse Rate [ From Monitor] Respiratory 16 17 Rate Blood Pressure 120/82 121/82 O2 Sat by Pulse 98 97 Oximetry 09/24/20 09/24/20 09/24/20 08:00 08:15 08:30 Temperature Pulse Rate 82 90 95 H Pulse Rate [ 106 H From Monitor] Respiratory 15 15 17 Rate Blood Pressure 140/93 135/92 143/89 O2 Sat by Pulse 100 98 100 Oximetry 09/24/20 09/24/20 09/24/20 08:45 09:00 09:15 Temperature Pulse Rate 85 82 91 H Pulse Rate [ From Monitor] Respiratory 15 15 14 Rate Blood Pressure 137/86 117/82 115/88 O2 Sat by Pulse 100 99 99 Oximetry 09/24/20 09:30 Temperature Pulse Rate 95 H Pulse Rate [ From Monitor] Respiratory 13 Rate Blood Pressure 138/93 O2 Sat by Pulse 89 Oximetry Constitutional: appears uncomfortable, other (elderly male with mildly increased respiratory effort at rest) Eyes: non-icteric ENT: oropharynx moist Neck: supple, no lymphadenopathy, no JVD Effort: mildly labored Ascultation: Bilateral: rhonchi, other (right SCVL Trialysis catheter) Percussion: Bilateral: not dull Cardiovascular: irregular rhythm Gastrointestinal: normoactive bowel sounds, soft, non-tender, non-distended Integumentary: normal Extremities: no cyanosis, no edema, pulses normal, no ischemia or petechiae Neurologic: non-focal exam (grossly), pupils equal and round, CN II-XII normal, other (delirious) Psychiatric: other (delirious) CBC and BMP: 09/24/20 12:13 09/24/20 11:25 ABG, PT/INR, D-dimer: ABG ABG pH 7.508 (7.320-7.450) H 09/17/20 10:28 POC ABG pCO2 22.8 mmHg (32.0-48.0) L 09/17/20 10:28 POC ABG pO2 66.8 mmHg (83-108) L 09/17/20 10:28 POC ABG HCO3 17.7 09/17/20 10:28 ABG O2 Saturation 93.4 (0-100) 09/17/20 10:28 PT/INR, D-dimer PT 17.3 Sec. (12.2-14.9) H 09/22/20 15:12 INR 1.42 (0.87-1.13) H 09/22/20 15:12 D-Dimer 1772.86 ng/mlDDU (0-234) H 09/24/20 05:00 Abnormal lab findings: Abnormal Labs 09/17/20 09/17/20 09/17/20 10:28 10:47 10:47 WBC 11.1 H RBC 3.44 L Hgb 11.2 L Hct 32.8 L MCV 95 H MCH MCHC Plt Count Lymph % (Auto) [place] % (Auto) Lymph # (Auto) [place] # (Auto) Seg Neutrophils % Seg Neuts % (Manual) Lymphocytes % (Manual) 4.0 L Monocytes % (Manual) Nucleated RBC % Seg Neutrophils # Seg Neutrophils # Man 10.7 H Abs Lymphs (Manual) Lymphocytes # (Manual) 0.4 L PT 32.9 H INR 3.16 H APTT 51.1 H D-Dimer Heparin Anti-Xa Level ABG pH 7.508 H POC ABG pCO2 22.8 L POC ABG pO2 66.8 L ABG Oxyhemoglobin 92.7 L ABG Sodium 127.4 L ABG Potassium 4.7 H ABG Glucose 121 H Carboxyhemoglobin 0.4 L Sodium Chloride Carbon Dioxide BUN Creatinine Glucose POC Glucose Calcium Phosphorus Ferritin Total Bilirubin AST ALT Alkaline Phosphatase Lactate Dehydrogenase Total Creatine Kinase Troponin T C-Reactive Protein NT-Pro-B Natriuret Pep Total Protein Albumin Cholesterol LDL Cholesterol Direct HDL Cholesterol PTH Intact Arterial Blood Glucose 121 H Urine WBC (Auto) Urine Creatinine Lymph Enumerat CD4/CD8 Absolute CD3 Count Absolute CD4 Count % CD8 Cells Absolute CD8 Count Absolute CD19 Count Coronavirus (PCR) HIV-1 RNA PCR copies/ml HIV-1 RNA (PCR) log 09/17/20 09/17/20 09/17/20 10:47 10:47 13:54 WBC RBC Hgb Hct MCV MCH MCHC Plt Count Lymph % (Auto) [place] % (Auto) Lymph # (Auto) [place] # (Auto) Seg Neutrophils % Seg Neuts % (Manual) Lymphocytes % (Manual) Monocytes % (Manual) Nucleated RBC % Seg Neutrophils # Seg Neutrophils # Man Abs Lymphs (Manual) Lymphocytes # (Manual) PT INR APTT D-Dimer Heparin Anti-Xa Level ABG pH POC ABG pCO2 POC ABG pO2 ABG Oxyhemoglobin ABG Sodium ABG Potassium ABG Glucose Carboxyhemoglobin Sodium 125 L Chloride 95.3 L Carbon Dioxide 17 L BUN 64 H Creatinine 4.6 H D Glucose 104 H POC Glucose Calcium Phosphorus Ferritin Total Bilirubin AST 69 H ALT Alkaline Phosphatase Lactate Dehydrogenase Total Creatine Kinase Troponin T 0.061 H D 0.058 H C-Reactive Protein NT-Pro-B Natriuret Pep 90170 H Total Protein Albumin 1.9 L Cholesterol 48 L LDL Cholesterol Direct 4 L HDL Cholesterol 9 L PTH Intact Arterial Blood Glucose Urine WBC (Auto) Urine Creatinine Lymph Enumerat CD4/CD8 Absolute CD3 Count Absolute CD4 Count % CD8 Cells Absolute CD8 Count Absolute CD19 Count Coronavirus (PCR) HIV-1 RNA PCR copies/ml HIV-1 RNA (PCR) log 09/17/20 09/17/20 09/17/20 16:36 17:35 17:35 WBC RBC 3.25 L Hgb 10.7 L Hct 31.1 L MCV 96 H MCH 33 H MCHC Plt Count Lymph % (Auto) [place] % (Auto) Lymph # (Auto) [place] # (Auto) Seg Neutrophils % Seg Neuts % (Manual) Lymphocytes % (Manual) Monocytes % (Manual) Nucleated RBC % Seg Neutrophils # Seg Neutrophils # Man Abs Lymphs (Manual) Lymphocytes # (Manual) PT 31.9 H INR 3.04 H APTT 50.9 H D-Dimer Heparin Anti-Xa Level ABG pH POC ABG pCO2 POC ABG pO2 ABG Oxyhemoglobin ABG Sodium ABG Potassium ABG Glucose Carboxyhemoglobin Sodium Chloride Carbon Dioxide BUN Creatinine Glucose POC Glucose Calcium Phosphorus Ferritin Total Bilirubin AST ALT Alkaline Phosphatase Lactate Dehydrogenase Total Creatine Kinase Troponin T 0.057 H C-Reactive Protein NT-Pro-B Natriuret Pep Total Protein Albumin Cholesterol LDL Cholesterol Direct HDL Cholesterol PTH Intact Arterial Blood Glucose Urine WBC (Auto) Urine Creatinine Lymph Enumerat CD4/CD8 Absolute CD3 Count Absolute CD4 Count % CD8 Cells Absolute CD8 Count Absolute CD19 Count Coronavirus (PCR) HIV-1 RNA PCR copies/ml HIV-1 RNA (PCR) log 09/17/20 09/18/20 09/18/20 17:35 03:19 03:19 WBC RBC 3.32 L Hgb 10.9 L Hct 32.0 L MCV 96 H MCH 33 H MCHC Plt Count 138 L Lymph % (Auto) [place] % (Auto) Lymph # (Auto) [place] # (Auto) Seg Neutrophils % Seg Neuts % (Manual) 95.0 H Lymphocytes % (Manual) 3.0 L Monocytes % (Manual) Nucleated RBC % Seg Neutrophils # Seg Neutrophils # Man 8.1 H Abs Lymphs (Manual) Lymphocytes # (Manual) 0.3 L PT INR APTT D-Dimer Heparin Anti-Xa Level ABG pH POC ABG pCO2 POC ABG pO2 ABG Oxyhemoglobin ABG Sodium ABG Potassium ABG Glucose Carboxyhemoglobin Sodium Chloride Carbon Dioxide 16 L BUN 70 H Creatinine 4.6 H 4.7 H Glucose 104 H POC Glucose Calcium 8.2 L Phosphorus Ferritin Total Bilirubin 1.60 H AST 128 H ALT 67 H Alkaline Phosphatase Lactate Dehydrogenase Total Creatine Kinase Troponin T C-Reactive Protein NT-Pro-B Natriuret Pep Total Protein 5.2 L D Albumin 2.5 L Cholesterol LDL Cholesterol Direct HDL Cholesterol PTH Intact Arterial Blood Glucose Urine WBC (Auto) Urine Creatinine Lymph Enumerat CD4/CD8 Absolute CD3 Count Absolute CD4 Count % CD8 Cells Absolute CD8 Count Absolute CD19 Count Coronavirus (PCR) HIV-1 RNA PCR copies/ml HIV-1 RNA (PCR) log 09/18/20 09/18/20 09/18/20 09:39 12:00 12:00 WBC RBC Hgb Hct MCV MCH MCHC Plt Count Lymph % (Auto) [place] % (Auto) Lymph # (Auto) [place] # (Auto) Seg Neutrophils % Seg Neuts % (Manual) Lymphocytes % (Manual) Monocytes % (Manual) Nucleated RBC % Seg Neutrophils # Seg Neutrophils # Man Abs Lymphs (Manual) Lymphocytes # (Manual) PT INR APTT D-Dimer Heparin Anti-Xa Level ABG pH POC ABG pCO2 POC ABG pO2 ABG Oxyhemoglobin ABG Sodium ABG Potassium ABG Glucose Carboxyhemoglobin Sodium Chloride Carbon Dioxide BUN Creatinine Glucose POC Glucose Calcium Phosphorus Ferritin Total Bilirubin AST ALT Alkaline Phosphatase Lactate Dehydrogenase Total Creatine Kinase Troponin T C-Reactive Protein NT-Pro-B Natriuret Pep Total Protein Albumin Cholesterol LDL Cholesterol Direct HDL Cholesterol PTH Intact Arterial Blood Glucose Urine WBC (Auto) 71.0 H Urine Creatinine 61.0 H Lymph Enumerat CD4/CD8 Absolute CD3 Count Absolute CD4 Count % CD8 Cells Absolute CD8 Count Absolute CD19 Count Coronavirus (PCR) Positive A HIV-1 RNA PCR copies/ml HIV-1 RNA (PCR) log 09/18/20 09/18/20 09/18/20 15:07 15:07 18:33 WBC RBC Hgb 10.7 L Hct 31.3 L MCV MCH MCHC Plt Count Lymph % (Auto) [place] % (Auto) Lymph # (Auto) [place] # (Auto) Seg Neutrophils % Seg Neuts % (Manual) Lymphocytes % (Manual) Monocytes % (Manual) Nucleated RBC % Seg Neutrophils # Seg Neutrophils # Man Abs Lymphs (Manual) Lymphocytes # (Manual) PT 20.3 H INR 1.73 H APTT 40.8 H D-Dimer Heparin Anti-Xa Level 1.09 H ABG pH POC ABG pCO2 POC ABG pO2 ABG Oxyhemoglobin ABG Sodium ABG Potassium ABG Glucose Carboxyhemoglobin Sodium Chloride Carbon Dioxide BUN Creatinine Glucose POC Glucose Calcium Phosphorus Ferritin Total Bilirubin AST ALT Alkaline Phosphatase Lactate Dehydrogenase Total Creatine Kinase Troponin T C-Reactive Protein NT-Pro-B Natriuret Pep Total Protein Albumin Cholesterol LDL Cholesterol Direct HDL Cholesterol PTH Intact Arterial Blood Glucose Urine WBC (Auto) Urine Creatinine Lymph Enumerat CD4/CD8 Absolute CD3 Count Absolute CD4 Count % CD8 Cells Absolute CD8 Count Absolute CD19 Count Coronavirus (PCR) HIV-1 RNA PCR copies/ml HIV-1 RNA (PCR) log 09/19/20 09/19/20 09/19/20 03:30 03:30 03:30 WBC RBC 3.29 L Hgb 10.9 L Hct 30.9 L MCV MCH 33 H MCHC 35 H Plt Count Lymph % (Auto) [place] % (Auto) Lymph # (Auto) [place] # (Auto) Seg Neutrophils % Seg Neuts % (Manual) Lymphocytes % (Manual) Monocytes % (Manual) Nucleated RBC % Seg Neutrophils # Seg Neutrophils # Man Abs Lymphs (Manual) Lymphocytes # (Manual) PT INR APTT D-Dimer Heparin Anti-Xa Level ABG pH POC ABG pCO2 POC ABG pO2 ABG Oxyhemoglobin ABG Sodium ABG Potassium ABG Glucose Carboxyhemoglobin Sodium 133 L Chloride Carbon Dioxide 17 L BUN 94 H Creatinine 5.0 H Glucose 120 H POC Glucose Calcium Phosphorus 6.30 H Ferritin Total Bilirubin 2.40 H AST 163 H ALT 109 H Alkaline Phosphatase 160 H Lactate Dehydrogenase Total Creatine Kinase 20 L Troponin T C-Reactive Protein NT-Pro-B Natriuret Pep Total Protein 6.2 L Albumin 2.0 L Cholesterol LDL Cholesterol Direct HDL Cholesterol PTH Intact 161.4 H Arterial Blood Glucose Urine WBC (Auto) Urine Creatinine Lymph Enumerat CD4/CD8 Absolute CD3 Count Absolute CD4 Count % CD8 Cells Absolute CD8 Count Absolute CD19 Count Coronavirus (PCR) HIV-1 RNA PCR copies/ml HIV-1 RNA (PCR) log 09/19/20 09/19/20 09/19/20 06:35 13:35 13:35 WBC RBC Hgb Hct MCV MCH MCHC Plt Count Lymph % (Auto) [place] % (Auto) Lymph # (Auto) [place] # (Auto) Seg Neutrophils % Seg Neuts % (Manual) Lymphocytes % (Manual) Monocytes % (Manual) Nucleated RBC % Seg Neutrophils # Seg Neutrophils # Man Abs Lymphs (Manual) 223 L Lymphocytes # (Manual) PT INR APTT D-Dimer Heparin Anti-Xa Level ABG pH POC ABG pCO2 POC ABG pO2 ABG Oxyhemoglobin ABG Sodium ABG Potassium ABG Glucose Carboxyhemoglobin Sodium Chloride Carbon Dioxide BUN Creatinine Glucose POC Glucose 123 H Calcium Phosphorus Ferritin Total Bilirubin AST ALT Alkaline Phosphatase Lactate Dehydrogenase Total Creatine Kinase Troponin T C-Reactive Protein NT-Pro-B Natriuret Pep Total Protein Albumin Cholesterol LDL Cholesterol Direct HDL Cholesterol PTH Intact Arterial Blood Glucose Urine WBC (Auto) Urine Creatinine Lymph Enumerat CD4/CD8 0.70 L Absolute CD3 Count 175 L Absolute CD4 Count 70 L % CD8 Cells 45 H Absolute CD8 Count 101 L Absolute CD19 Count 26 L Coronavirus (PCR) HIV-1 RNA PCR copies/ml 67 H HIV-1 RNA (PCR) log 1.83 H 09/19/20 09/20/20 09/20/20 23:37 04:00 04:00 WBC RBC 3.43 L Hgb 11.1 L Hct 32.2 L MCV MCH MCHC Plt Count 131 L Lymph % (Auto) [place] % (Auto) Lymph # (Auto) [place] # (Auto) Seg Neutrophils % Seg Neuts % (Manual) 88.0 H Lymphocytes % (Manual) 3.0 L Monocytes % (Manual) 9.0 H Nucleated RBC % Seg Neutrophils # Seg Neutrophils # Man 8.2 H Abs Lymphs (Manual) Lymphocytes # (Manual) 0.3 L PT INR APTT D-Dimer Heparin Anti-Xa Level 0.10 L ABG pH POC ABG pCO2 POC ABG pO2 ABG Oxyhemoglobin ABG Sodium ABG Potassium ABG Glucose Carboxyhemoglobin Sodium Chloride Carbon Dioxide BUN Creatinine Glucose POC Glucose 135 H Calcium Phosphorus Ferritin Total Bilirubin AST ALT Alkaline Phosphatase Lactate Dehydrogenase Total Creatine Kinase Troponin T C-Reactive Protein NT-Pro-B Natriuret Pep Total Protein Albumin Cholesterol LDL Cholesterol Direct HDL Cholesterol PTH Intact Arterial Blood Glucose Urine WBC (Auto) Urine Creatinine Lymph Enumerat CD4/CD8 Absolute CD3 Count Absolute CD4 Count % CD8 Cells Absolute CD8 Count Absolute CD19 Count Coronavirus (PCR) HIV-1 RNA PCR copies/ml HIV-1 RNA (PCR) log 09/20/20 09/20/20 09/20/20 04:00 05:37 11:20 WBC RBC Hgb Hct MCV MCH MCHC Plt Count Lymph % (Auto) [place] % (Auto) Lymph # (Auto) [place] # (Auto) Seg Neutrophils % Seg Neuts % (Manual) Lymphocytes % (Manual) Monocytes % (Manual) Nucleated RBC % Seg Neutrophils # Seg Neutrophils # Man Abs Lymphs (Manual) Lymphocytes # (Manual) PT INR APTT D-Dimer Heparin Anti-Xa Level ABG pH POC ABG pCO2 POC ABG pO2 ABG Oxyhemoglobin ABG Sodium ABG Potassium ABG Glucose Carboxyhemoglobin Sodium Chloride Carbon Dioxide 16 L BUN 119 H Creatinine 6.2 H Glucose 136 H POC Glucose 137 H 108 H Calcium Phosphorus Ferritin Total Bilirubin AST ALT Alkaline Phosphatase Lactate Dehydrogenase Total Creatine Kinase Troponin T C-Reactive Protein NT-Pro-B Natriuret Pep Total Protein Albumin Cholesterol LDL Cholesterol Direct HDL Cholesterol PTH Intact Arterial Blood Glucose Urine WBC (Auto) Urine Creatinine Lymph Enumerat CD4/CD8 Absolute CD3 Count Absolute CD4 Count % CD8 Cells Absolute CD8 Count Absolute CD19 Count Coronavirus (PCR) HIV-1 RNA PCR copies/ml HIV-1 RNA (PCR) log 09/20/20 09/20/20 09/20/20 17:10 17:10 17:10 WBC RBC Hgb Hct MCV MCH MCHC Plt Count Lymph % (Auto) [place] % (Auto) Lymph # (Auto) [place] # (Auto) Seg Neutrophils % Seg Neuts % (Manual) Lymphocytes % (Manual) Monocytes % (Manual) Nucleated RBC % Seg Neutrophils # Seg Neutrophils # Man Abs Lymphs (Manual) Lymphocytes # (Manual) PT INR APTT D-Dimer 4271.58 H Heparin Anti-Xa Level ABG pH POC ABG pCO2 POC ABG pO2 ABG Oxyhemoglobin ABG Sodium ABG Potassium ABG Glucose Carboxyhemoglobin Sodium Chloride Carbon Dioxide BUN Creatinine 6.0 H Glucose POC Glucose Calcium Phosphorus Ferritin 696.6 H Total Bilirubin AST ALT Alkaline Phosphatase Lactate Dehydrogenase Total Creatine Kinase Troponin T C-Reactive Protein NT-Pro-B Natriuret Pep Total Protein Albumin Cholesterol LDL Cholesterol Direct HDL Cholesterol PTH Intact Arterial Blood Glucose Urine WBC (Auto) Urine Creatinine Lymph Enumerat CD4/CD8 Absolute CD3 Count Absolute CD4 Count % CD8 Cells Absolute CD8 Count Absolute CD19 Count Coronavirus (PCR) HIV-1 RNA PCR copies/ml HIV-1 RNA (PCR) log 09/20/20 09/20/20 09/20/20 17:10 18:21 23:14 WBC RBC Hgb Hct MCV MCH MCHC Plt Count Lymph % (Auto) [place] % (Auto) Lymph # (Auto) [place] # (Auto) Seg Neutrophils % Seg Neuts % (Manual) Lymphocytes % (Manual) Monocytes % (Manual) Nucleated RBC % Seg Neutrophils # Seg Neutrophils # Man Abs Lymphs (Manual) Lymphocytes # (Manual) PT INR APTT D-Dimer Heparin Anti-Xa Level ABG pH POC ABG pCO2 POC ABG pO2 ABG Oxyhemoglobin ABG Sodium ABG Potassium ABG Glucose Carboxyhemoglobin Sodium Chloride Carbon Dioxide BUN Creatinine Glucose POC Glucose 129 H 170 H Calcium Phosphorus Ferritin Total Bilirubin AST ALT Alkaline Phosphatase Lactate Dehydrogenase 209 H Total Creatine Kinase Troponin T C-Reactive Protein 10.60 H NT-Pro-B Natriuret Pep Total Protein Albumin Cholesterol LDL Cholesterol Direct HDL Cholesterol PTH Intact Arterial Blood Glucose Urine WBC (Auto) Urine Creatinine Lymph Enumerat CD4/CD8 Absolute CD3 Count Absolute CD4 Count % CD8 Cells Absolute CD8 Count Absolute CD19 Count Coronavirus (PCR) HIV-1 RNA PCR copies/ml HIV-1 RNA (PCR) log 09/21/20 09/21/20 09/21/20 05:35 17:09 23:18 WBC RBC Hgb Hct MCV MCH MCHC Plt Count Lymph % (Auto) [place] % (Auto) Lymph # (Auto) [place] # (Auto) Seg Neutrophils % Seg Neuts % (Manual) Lymphocytes % (Manual) Monocytes % (Manual) Nucleated RBC % Seg Neutrophils # Seg Neutrophils # Man Abs Lymphs (Manual) Lymphocytes # (Manual) PT INR APTT D-Dimer Heparin Anti-Xa Level ABG pH POC ABG pCO2 POC ABG pO2 ABG Oxyhemoglobin ABG Sodium ABG Potassium ABG Glucose Carboxyhemoglobin Sodium Chloride Carbon Dioxide BUN Creatinine Glucose POC Glucose 170 H 140 H 139 H Calcium Phosphorus Ferritin Total Bilirubin AST ALT Alkaline Phosphatase Lactate Dehydrogenase Total Creatine Kinase Troponin T C-Reactive Protein NT-Pro-B Natriuret Pep Total Protein Albumin Cholesterol LDL Cholesterol Direct HDL Cholesterol PTH Intact Arterial Blood Glucose Urine WBC (Auto) Urine Creatinine Lymph Enumerat CD4/CD8 Absolute CD3 Count Absolute CD4 Count % CD8 Cells Absolute CD8 Count Absolute CD19 Count Coronavirus (PCR) HIV-1 RNA PCR copies/ml HIV-1 RNA (PCR) log 09/21/20 09/21/20 09/21/20 Unknown Unknown Unknown WBC RBC 3.56 L Hgb 11.3 L Hct 33.2 L MCV MCH MCHC Plt Count 125 L Lymph % (Auto) [place] % (Auto) Lymph # (Auto) [place] # (Auto) Seg Neutrophils % Seg Neuts % (Manual) 90.0 H Lymphocytes % (Manual) 8.0 L Monocytes % (Manual) Nucleated RBC % 1.0 H Seg Neutrophils # Seg Neutrophils # Man 9.4 H Abs Lymphs (Manual) Lymphocytes # (Manual) 0.8 L PT 16.8 H INR 1.36 H APTT D-Dimer Heparin Anti-Xa Level ABG pH POC ABG pCO2 POC ABG pO2 ABG Oxyhemoglobin ABG Sodium ABG Potassium ABG Glucose Carboxyhemoglobin Sodium Chloride Carbon Dioxide BUN 83 H Creatinine 4.3 H Glucose 163 H POC Glucose Calcium Phosphorus Ferritin Total Bilirubin 2.40 H AST ALT 57 H Alkaline Phosphatase < 5 L Lactate Dehydrogenase Total Creatine Kinase Troponin T C-Reactive Protein NT-Pro-B Natriuret Pep Total Protein Albumin 1.9 L Cholesterol LDL Cholesterol Direct HDL Cholesterol PTH Intact Arterial Blood Glucose Urine WBC (Auto) Urine Creatinine Lymph Enumerat CD4/CD8 Absolute CD3 Count Absolute CD4 Count % CD8 Cells Absolute CD8 Count Absolute CD19 Count Coronavirus (PCR) HIV-1 RNA PCR copies/ml HIV-1 RNA (PCR) log 09/22/20 09/22/20 09/22/20 05:38 05:38 05:38 WBC 15.8 H RBC 3.36 L Hgb 10.8 L Hct 31.0 L MCV MCH MCHC 35 H Plt Count 68 L Lymph % (Auto) 3.1 L [place] % (Auto) 10.7 H Lymph # (Auto) 0.5 L [place] # (Auto) 1.7 H Seg Neutrophils % 85.9 H Seg Neuts % (Manual) Lymphocytes % (Manual) Monocytes % (Manual) Nucleated RBC % Seg Neutrophils # 13.6 H Seg Neutrophils # Man Abs Lymphs (Manual) Lymphocytes # (Manual) PT INR APTT D-Dimer 3281.49 H Heparin Anti-Xa Level ABG pH POC ABG pCO2 POC ABG pO2 ABG Oxyhemoglobin ABG Sodium ABG Potassium ABG Glucose Carboxyhemoglobin Sodium Chloride Carbon Dioxide BUN 61 H Creatinine 3.1 H Glucose 129 H POC Glucose Calcium Phosphorus Ferritin Total Bilirubin AST ALT Alkaline Phosphatase Lactate Dehydrogenase 277 H Total Creatine Kinase Troponin T C-Reactive Protein 6.60 H NT-Pro-B Natriuret Pep Total Protein Albumin Cholesterol LDL Cholesterol Direct HDL Cholesterol PTH Intact Arterial Blood Glucose Urine WBC (Auto) Urine Creatinine Lymph Enumerat CD4/CD8 Absolute CD3 Count Absolute CD4 Count % CD8 Cells Absolute CD8 Count Absolute CD19 Count Coronavirus (PCR) HIV-1 RNA PCR copies/ml HIV-1 RNA (PCR) log 09/22/20 09/22/20 09/22/20 05:38 05:44 11:26 WBC RBC Hgb Hct MCV MCH MCHC Plt Count Lymph % (Auto) [place] % (Auto) Lymph # (Auto) [place] # (Auto) Seg Neutrophils % Seg Neuts % (Manual) Lymphocytes % (Manual) Monocytes % (Manual) Nucleated RBC % Seg Neutrophils # Seg Neutrophils # Man Abs Lymphs (Manual) Lymphocytes # (Manual) PT INR APTT D-Dimer Heparin Anti-Xa Level ABG pH POC ABG pCO2 POC ABG pO2 ABG Oxyhemoglobin ABG Sodium ABG Potassium ABG Glucose Carboxyhemoglobin Sodium Chloride Carbon Dioxide BUN Creatinine Glucose POC Glucose 112 H 131 H Calcium Phosphorus Ferritin 927.8 H Total Bilirubin AST ALT Alkaline Phosphatase Lactate Dehydrogenase Total Creatine Kinase Troponin T C-Reactive Protein NT-Pro-B Natriuret Pep Total Protein Albumin Cholesterol LDL Cholesterol Direct HDL Cholesterol PTH Intact Arterial Blood Glucose Urine WBC (Auto) Urine Creatinine Lymph Enumerat CD4/CD8 Absolute CD3 Count Absolute CD4 Count % CD8 Cells Absolute CD8 Count Absolute CD19 Count Coronavirus (PCR) HIV-1 RNA PCR copies/ml HIV-1 RNA (PCR) log 09/22/20 09/22/20 09/22/20 15:12 15:12 16:53 WBC RBC Hgb Hct MCV MCH MCHC Plt Count Lymph % (Auto) [place] % (Auto) Lymph # (Auto) [place] # (Auto) Seg Neutrophils % Seg Neuts % (Manual) Lymphocytes % (Manual) Monocytes % (Manual) Nucleated RBC % Seg Neutrophils # Seg Neutrophils # Man Abs Lymphs (Manual) Lymphocytes # (Manual) PT 17.3 H INR 1.42 H APTT D-Dimer Heparin Anti-Xa Level ABG pH POC ABG pCO2 POC ABG pO2 ABG Oxyhemoglobin ABG Sodium ABG Potassium ABG Glucose Carboxyhemoglobin Sodium Chloride Carbon Dioxide BUN Creatinine 3.0 H Glucose POC Glucose 138 H Calcium Phosphorus Ferritin Total Bilirubin AST ALT Alkaline Phosphatase Lactate Dehydrogenase Total Creatine Kinase Troponin T C-Reactive Protein NT-Pro-B Natriuret Pep Total Protein Albumin Cholesterol LDL Cholesterol Direct HDL Cholesterol PTH Intact Arterial Blood Glucose Urine WBC (Auto) Urine Creatinine Lymph Enumerat CD4/CD8 Absolute CD3 Count Absolute CD4 Count % CD8 Cells Absolute CD8 Count Absolute CD19 Count Coronavirus (PCR) HIV-1 RNA PCR copies/ml HIV-1 RNA (PCR) log 09/22/20 09/23/20 09/23/20 23:55 04:36 04:36 WBC 14.2 H RBC 3.05 L Hgb 9.8 L Hct 28.4 L MCV MCH MCHC Plt Count 39 L Lymph % (Auto) [place] % (Auto) Lymph # (Auto) [place] # (Auto) Seg Neutrophils % Seg Neuts % (Manual) 91.0 H Lymphocytes % (Manual) 2.0 L Monocytes % (Manual) Nucleated RBC % Seg Neutrophils # Seg Neutrophils # Man 12.9 H Abs Lymphs (Manual) Lymphocytes # (Manual) 0.3 L PT INR APTT D-Dimer Heparin Anti-Xa Level ABG pH POC ABG pCO2 POC ABG pO2 ABG Oxyhemoglobin ABG Sodium ABG Potassium ABG Glucose Carboxyhemoglobin Sodium Chloride Carbon Dioxide BUN 76 H Creatinine 3.1 H Glucose 157 H POC Glucose 171 H Calcium Phosphorus Ferritin Total Bilirubin AST ALT Alkaline Phosphatase Lactate Dehydrogenase Total Creatine Kinase Troponin T C-Reactive Protein NT-Pro-B Natriuret Pep Total Protein Albumin Cholesterol LDL Cholesterol Direct HDL Cholesterol PTH Intact Arterial Blood Glucose Urine WBC (Auto) Urine Creatinine Lymph Enumerat CD4/CD8 Absolute CD3 Count Absolute CD4 Count % CD8 Cells Absolute CD8 Count Absolute CD19 Count Coronavirus (PCR) HIV-1 RNA PCR copies/ml HIV-1 RNA (PCR) log 09/23/20 09/23/20 09/23/20 05:41 11:38 17:09 WBC RBC Hgb Hct MCV MCH MCHC Plt Count Lymph % (Auto) [place] % (Auto) Lymph # (Auto) [place] # (Auto) Seg Neutrophils % Seg Neuts % (Manual) Lymphocytes % (Manual) Monocytes % (Manual) Nucleated RBC % Seg Neutrophils # Seg Neutrophils # Man Abs Lymphs (Manual) Lymphocytes # (Manual) PT INR APTT D-Dimer Heparin Anti-Xa Level ABG pH POC ABG pCO2 POC ABG pO2 ABG Oxyhemoglobin ABG Sodium ABG Potassium ABG Glucose Carboxyhemoglobin Sodium Chloride Carbon Dioxide BUN Creatinine Glucose POC Glucose 136 H 141 H 128 H Calcium Phosphorus Ferritin Total Bilirubin AST ALT Alkaline Phosphatase Lactate Dehydrogenase Total Creatine Kinase Troponin T C-Reactive Protein NT-Pro-B Natriuret Pep Total Protein Albumin Cholesterol LDL Cholesterol Direct HDL Cholesterol PTH Intact Arterial Blood Glucose Urine WBC (Auto) Urine Creatinine Lymph Enumerat CD4/CD8 Absolute CD3 Count Absolute CD4 Count % CD8 Cells Absolute CD8 Count Absolute CD19 Count Coronavirus (PCR) HIV-1 RNA PCR copies/ml HIV-1 RNA (PCR) log 09/23/20 09/24/20 09/24/20 23:51 05:00 05:00 WBC 24.2 H RBC 3.23 L Hgb 10.0 L Hct 29.7 L MCV MCH MCHC Plt Count 74 L Lymph % (Auto) [place] % (Auto) Lymph # (Auto) [place] # (Auto) Seg Neutrophils % Seg Neuts % (Manual) Lymphocytes % (Manual) Monocytes % (Manual) Nucleated RBC % Seg Neutrophils # Seg Neutrophils # Man Abs Lymphs (Manual) Lymphocytes # (Manual) PT INR APTT D-Dimer 1772.86 H Heparin Anti-Xa Level ABG pH POC ABG pCO2 POC ABG pO2 ABG Oxyhemoglobin ABG Sodium ABG Potassium ABG Glucose Carboxyhemoglobin Sodium Chloride Carbon Dioxide BUN Creatinine Glucose POC Glucose 128 H Calcium Phosphorus Ferritin Total Bilirubin AST ALT Alkaline Phosphatase Lactate Dehydrogenase Total Creatine Kinase Troponin T C-Reactive Protein NT-Pro-B Natriuret Pep Total Protein Albumin Cholesterol LDL Cholesterol Direct HDL Cholesterol PTH Intact Arterial Blood Glucose Urine WBC (Auto) Urine Creatinine Lymph Enumerat CD4/CD8 Absolute CD3 Count Absolute CD4 Count % CD8 Cells Absolute CD8 Count Absolute CD19 Count Coronavirus (PCR) HIV-1 RNA PCR copies/ml HIV-1 RNA (PCR) log 09/24/20 09/24/20 09/24/20 05:00 05:00 05:12 WBC RBC Hgb Hct MCV MCH MCHC Plt Count Lymph % (Auto) [place] % (Auto) Lymph # (Auto) [place] # (Auto) Seg Neutrophils % Seg Neuts % (Manual) Lymphocytes % (Manual) Monocytes % (Manual) Nucleated RBC % Seg Neutrophils # Seg Neutrophils # Man Abs Lymphs (Manual) Lymphocytes # (Manual) PT INR APTT D-Dimer Heparin Anti-Xa Level ABG pH POC ABG pCO2 POC ABG pO2 ABG Oxyhemoglobin ABG Sodium ABG Potassium ABG Glucose Carboxyhemoglobin Sodium Chloride 107.1 H Carbon Dioxide BUN 90 H Creatinine 3.1 H Glucose 118 H POC Glucose 114 H Calcium Phosphorus Ferritin 1190.0 H Total Bilirubin AST ALT Alkaline Phosphatase Lactate Dehydrogenase 276 H Total Creatine Kinase Troponin T C-Reactive Protein 4.20 H NT-Pro-B Natriuret Pep Total Protein Albumin Cholesterol LDL Cholesterol Direct HDL Cholesterol PTH Intact Arterial Blood Glucose Urine WBC (Auto) Urine Creatinine Lymph Enumerat CD4/CD8 Absolute CD3 Count Absolute CD4 Count % CD8 Cells Absolute CD8 Count Absolute CD19 Count Coronavirus (PCR) HIV-1 RNA PCR copies/ml HIV-1 RNA (PCR) log Additional Studies: CT head negative Allied health notes reviewed: nursing
--- NOTE | 2020-09-24 11:16 | Progress Note ---
Assessment and Plan Cultures: 09/18/2020 COVID-19 PCR: Positive 09/18/2020 blood culture: E.coli 09/18/2020 Urine culture: E.coli 09/19/2020 sputum culture: Contaminated with oral secretions 09/19/2020 HIV RNA PCR: 67 copies per mL Assessment: 70-year-old male with history of HIV infection (unknown CD4/VL/ART compliance), hypertension, atrial fibrillation on Xarelto, initially admitted on 09/15/2020 RVR A. fib, LOLI, left AMA, came back to the ED on 09/17/2020 secondary to worsening shortness of breath for 3 days: #Severe sepsis with septic shock: secondary to E.coli bacteremia ?from UTI. HIDA scan negative for acute cholecystitis #E.coli bacteremia: Likely from UTI. RUQ US did show a large GB stone. Labs initially with elevated LFTs and bilirubin. HIDA negative. #UTI: Urinalysis with 71 WBCs and moderate leukocyte esterase. Urine culture with E.coli #COVID-19: PCR positive. On supplemental oxygen. Agree with steroids. #LOLI: Likely due to sepsis. On HD. #Acute respiratory hypoxic failure: on NC. #HIV: listed meds are Descovy + Tivicay. Likely good control since his HIV RNA PCR came back at 67 copies/ml. CD4 is 70 but 30%, overall count is low likely due to steroids. OI prophylaxis is not needed. #Acute encephalopathy: ?multifactorial. Recommendations: -if WBC remains elevated, get CT abdomen pelvis without contrast -continue IV ceftriaxone 2 g daily + flagyl -complete steroid course for COVID-19 -continue renally dosed antiretroviral therapy based on formulary/therapeutic interchange: TDF + FTC + DTG -HIV RNA PCR came back at 67 copies/ml. CD4 is 70 but 30%, overall count is low likely due to steroids. OI prophylaxis is not needed Pat Rae MD, FACP [facility] ([facility] O: [phone] F: [phone] Subjective Date of service: 09/24/20 Principal diagnosis: Ac hypoxemic resp failure; A-fib RVR; AE-CHF; LOLI; Septic shock; UTI Interval history: No fever. Remains on nasal cannula, stable oxygenation. Off pressors but WBC is up. Objective - Exam Narrative Exam: Physical Exam (reviewed in chart to minimize risk of transmission) Constitutional: deferred Head, Ears, Nose: deferred Eyes: deferred Neck: deferred Oral: deferred Cardiovascular: deferred Respiratory: deferred GI: deferred Musculoskeletal: deferred Skin: deferred Hem/Lymphatic: deferred Psych: deferred Neurological: deferred - Constitutional Vitals: Vital Signs Temp Pulse Resp BP Pulse Ox 97.9 F 95 H 13 138/93 99 09/24/20 07:56 09/24/20 09:30 09/24/20 09:30 09/24/20 09:30 09/24/20 10:00 Temperature -Last 24 Hours Temperature 97.9 F Temperature 97.8 F Temperature 97.8 F Temperature 97.5 F Temperature 97.6 F Temperature 98.6 F - Labs CBC & Chem 7: 09/24/20 05:00 09/24/20 05:00 Labs: Abnormal lab results 09/19/20 09/23/20 09/23/20 Range/Units 13:35 11:38 17:09 WBC (4.5-11.0) K/mm3 RBC (3.65-5.03) M/mm3 Hgb (11.8-15.2) gm/dl Hct (35.5-45.6) % Plt Count (140-440) K/mm3 Abs Lymphs (Manual) 223 L (850-3900) cells/uL D-Dimer (0-234) ng/mlDDU Chloride (98-107) mmol/L BUN (9-20) mg/dL Creatinine (0.8-1.3) mg/dL Glucose (75-100) mg/dL POC Glucose 141 H 128 H (70-105) mg/dL Ferritin (30.0-300.0) ng/mL Lactate Dehydrogenase (91-180) units/L C-Reactive Protein (0.00-1.30) mg/dL Lymph Enumerat CD4/CD8 0.70 L (0.86-5.00) Absolute CD3 Count 175 L (840-3060) cells/uL Absolute CD4 Count 70 L (490-1740) cells/uL % CD8 Cells 45 H (12-42) % Absolute CD8 Count 101 L (180-1170) cells/uL Absolute CD19 Count 26 L (110-660) cells/uL 09/23/20 09/24/20 09/24/20 Range/Units 23:51 05:00 05:00 WBC 24.2 H (4.5-11.0) K/mm3 RBC 3.23 L (3.65-5.03) M/mm3 Hgb 10.0 L (11.8-15.2) gm/dl Hct 29.7 L (35.5-45.6) % Plt Count 74 L (140-440) K/mm3 Abs Lymphs (Manual) (850-3900) cells/uL D-Dimer 1772.86 H (0-234) ng/mlDDU Chloride (98-107) mmol/L BUN (9-20) mg/dL Creatinine (0.8-1.3) mg/dL Glucose (75-100) mg/dL POC Glucose 128 H (70-105) mg/dL Ferritin (30.0-300.0) ng/mL Lactate Dehydrogenase (91-180) units/L C-Reactive Protein (0.00-1.30) mg/dL Lymph Enumerat CD4/CD8 (0.86-5.00) Absolute CD3 Count (840-3060) cells/uL Absolute CD4 Count (490-1740) cells/uL % CD8 Cells (12-42) % Absolute CD8 Count (180-1170) cells/uL Absolute CD19 Count (110-660) cells/uL 09/24/20 09/24/20 09/24/20 Range/Units 05:00 05:00 05:12 WBC (4.5-11.0) K/mm3 RBC (3.65-5.03) M/mm3 Hgb (11.8-15.2) gm/dl Hct (35.5-45.6) % Plt Count (140-440) K/mm3 Abs Lymphs (Manual) (850-3900) cells/uL D-Dimer (0-234) ng/mlDDU Chloride 107.1 H (98-107) mmol/L BUN 90 H (9-20) mg/dL Creatinine 3.1 H (0.8-1.3) mg/dL Glucose 118 H (75-100) mg/dL POC Glucose 114 H (70-105) mg/dL Ferritin 1190.0 H (30.0-300.0) ng/mL Lactate Dehydrogenase 276 H (91-180) units/L C-Reactive Protein 4.20 H (0.00-1.30) mg/dL Lymph Enumerat CD4/CD8 (0.86-5.00) Absolute CD3 Count (840-3060) cells/uL Absolute CD4 Count (490-1740) cells/uL % CD8 Cells (12-42) % Absolute CD8 Count (180-1170) cells/uL Absolute CD19 Count (110-660) cells/uL
[2020-09-24] MEDS: APIXABAN 2.5 MG TAB PO SCH ×2 (11:57→21:04)
--- NOTE | 2020-09-24 12:12 | Progress Note ---
Assessment and Plan 1. Acute kidney injury: Vasomotor LOLI in the setting of shock. ATN likely. Renal US negative for hydro. Bladder scan 0 ml (09/23). Patient require hemodialysis due to significant decline in the renal function. Hemodialysis: 09/20, 09/21. Monitor renal function. Creatinine leveled off. BUN level is increasing. Renal prognosis is guarded. Avoid nephrotoxic agents. Meds dosage based on GFR. Monitor for TELEMARK[employer]PERVIS[employer] needs. 2. FEN: Metabolic acidosis, improved, monitor. Monitor volume status and lytes. 3. Acute hypoxic respiratory failure: Covid test positive. Supplemental O2. 4. Acute CHF: Echocardiogram: EF 40-45%. CHF orderset / pathway. Monitor. 5. Atrial fibrillation with RVR: On Amio. Followed by Cards. 6. Elevated troponin: Trend. Followed by Cards. 7. Coagulopathy: Trend. 8. Shock / Hypotension: Multifactorial, monitor. Off pressors. 9. Elevated Transaminases: Improving. 10. Metabolic encephalopathy: Monitor. 11. HIV. 12. Anemia, POA: Monitor. Subjective: Patient was seen and examined at the bedside. Objective: General appearance: well-developed, appears stated age, no distress, NC O2, NG tube HEENT: ATNC, L pupil dilated Neck: trachea midline Respiratory: bilateral diminished breath sounds Heart: irregular, S1S2, no murmur Gastrointestinal: soft, normoactive bowel sounds, not tender Integumentary: no obvious rash Ext: no edema Neurologic: lethargic, non-verbal, not following any command Subjective Date of service: 09/24/20 Principal diagnosis: Ac hypoxemic resp failure; A-fib RVR; AE-CHF; LOLI; Septic shock; UTI Objective - Vital Signs Vital signs: Vital Signs - 12hr 09/24/20 09/24/20 09/24/20 00:15 00:30 00:46 Temperature Pulse Rate 113 H 117 H 120 H Pulse Rate [ From Monitor] Respiratory 18 16 18 Rate Blood Pressure 123/79 123/79 121/76 O2 Sat by Pulse 98 98 97 Oximetry 09/24/20 09/24/20 09/24/20 01:00 01:15 01:30 Temperature Pulse Rate 115 H 121 H 110 H Pulse Rate [ From Monitor] Respiratory 14 16 17 Rate Blood Pressure 121/76 124/83 114/75 O2 Sat by Pulse 98 99 99 Oximetry 09/24/20 09/24/20 09/24/20 01:46 02:00 02:16 Temperature Pulse Rate 113 H 111 H 107 H Pulse Rate [ From Monitor] Respiratory 15 17 18 Rate Blood Pressure 106/81 114/76 112/85 O2 Sat by Pulse 98 99 97 Oximetry 09/24/20 09/24/20 09/24/20 02:30 02:45 03:00 Temperature Pulse Rate 114 H 112 H 123 H Pulse Rate [ From Monitor] Respiratory 18 17 16 Rate Blood Pressure 123/82 115/86 121/80 O2 Sat by Pulse 99 98 98 Oximetry 09/24/20 09/24/20 09/24/20 03:16 03:30 03:41 Temperature 97.8 F Pulse Rate 116 H 112 H Pulse Rate [ From Monitor] Respiratory 14 17 Rate Blood Pressure 121/80 123/71 O2 Sat by Pulse 98 97 Oximetry 09/24/20 09/24/20 09/24/20 03:45 04:00 04:15 Temperature Pulse Rate 108 H 106 H 102 H Pulse Rate [ 106 H From Monitor] Respiratory 16 18 15 Rate Blood Pressure 129/75 125/87 121/70 O2 Sat by Pulse 99 97 98 Oximetry 09/24/20 09/24/20 09/24/20 04:30 04:45 05:00 Temperature Pulse Rate 111 H 104 H 119 H Pulse Rate [ From Monitor] Respiratory 15 11 L 17 Rate Blood Pressure 113/78 102/79 114/84 O2 Sat by Pulse 97 99 97 Oximetry 09/24/20 09/24/20 09/24/20 05:15 05:30 05:45 Temperature Pulse Rate 114 H 114 H 110 H Pulse Rate [ From Monitor] Respiratory 11 L 16 16 Rate Blood Pressure 122/78 122/75 122/81 O2 Sat by Pulse 98 99 97 Oximetry 09/24/20 09/24/20 09/24/20 06:00 06:16 06:30 Temperature Pulse Rate 111 H 112 H 111 H Pulse Rate [ From Monitor] Respiratory 15 14 16 Rate Blood Pressure 129/86 118/78 128/78 O2 Sat by Pulse 97 98 98 Oximetry 09/24/20 09/24/20 09/24/20 06:46 07:00 07:16 Temperature Pulse Rate 105 H 99 H 87 Pulse Rate [ From Monitor] Respiratory 16 17 14 Rate Blood Pressure 128/78 108/66 139/100 O2 Sat by Pulse 95 97 Oximetry 09/24/20 09/24/20 09/24/20 07:30 07:45 07:56 Temperature 97.9 F Pulse Rate 92 H 84 Pulse Rate [ From Monitor] Respiratory 16 17 Rate Blood Pressure 120/82 121/82 O2 Sat by Pulse 98 97 Oximetry 09/24/20 09/24/20 09/24/20 08:00 08:15 08:30 Temperature Pulse Rate 82 90 95 H Pulse Rate [ 106 H From Monitor] Respiratory 15 15 17 Rate Blood Pressure 140/93 135/92 143/89 O2 Sat by Pulse 100 98 100 Oximetry 09/24/20 09/24/20 09/24/20 08:45 09:00 09:15 Temperature Pulse Rate 85 82 91 H Pulse Rate [ From Monitor] Respiratory 15 15 14 Rate Blood Pressure 137/86 117/82 115/88 O2 Sat by Pulse 100 99 99 Oximetry 09/24/20 09/24/20 09:30 10:00 Temperature Pulse Rate 95 H Pulse Rate [ From Monitor] Respiratory 13 Rate Blood Pressure 138/93 O2 Sat by Pulse 89 99 Oximetry - Lab 09/24/20 12:13 09/24/20 11:25 Most recent lab results ABG pH 7.508 (7.320-7.450) H 09/17/20 10:28 ABG O2 Saturation 93.4 (0-100) 09/17/20 10:28 Calcium 9.2 mg/dL (8.4-10.2) 09/24/20 05:00 Phosphorus 6.30 mg/dL (2.5-4.5) H 09/19/20 03:30 Magnesium 1.80 mg/dL (1.7-2.3) 09/17/20 10:47 Urine Creatinine 61.0 mg/dL (0.1-20.0) H 09/18/20 12:00 Urine Sodium 62 mmol/L 09/18/20 12:00 Medications & Allergies - Medications Allergies/Adverse Reactions: Allergies No Known Allergies Allergy (Unverified 09/15/20 06:37) Home Medications: Home Medications Medication Instructions Recorded Confirmed Last Taken Type AtorvaSTATin [Lipitor] 20 mg PO QHS 09/18/20 09/18/20 Unknown History Dolutegravir [Tivicay] 50 mg PO DAILY 09/18/20 09/18/20 Unknown History Emtricitabine/Tenofov Alafenam 1 tab PO DAILY 09/18/20 09/18/20 Unknown History [Descovy 200-25 mg (Nf)] Rivaroxaban [Xarelto] 15 mg PO QDAY 09/18/20 09/18/20 Unknown History allopurinoL [Zyloprim] 300 mg PO QDAY 09/18/20 09/18/20 Unknown History carvediloL [Coreg] 25 mg PO BID 09/18/20 09/18/20 Unknown History lisinopriL [Lisinopril] 20 mg PO DAILY 09/18/20 09/18/20 Unknown History Active Medications: Generic Name Dose Route Start Last Admin Trade Name Freq PRN Reason Stop Dose Admin Acetaminophen 650 mg 09/17/20 13:52 Acetaminophen 325 Mg Tab PO Q4H PRN Pain MILD(1-3)/Fever >100.5/ANGEL Albuterol 2.5 mg 09/17/20 13:52 09/17/20 20:47 Albuterol 2.5 Mg/3 Ml Nebu IH 2.5 mg Q4HRT PRN Administration Shortness Of Breath Amiodarone HCl 200 mg 09/24/20 22:00 Amiodarone 200 Mg Tab PO BID EDIE Lipase/Protease/Amylase 1 each 09/20/20 13:10 Lipase 10,500/Protease 25,000/Amylase 43,750 (Units) Dr Patrick FEEDTUBE PRN PRN For Clogged Feeding Tube Apixaban 2.5 mg 09/24/20 12:00 09/24/20 11:57 Apixaban 2.5 Mg Tab PO 2.5 mg Q12HR EDIE Administration Protocol Ascorbic Acid 500 mg 09/20/20 22:00 09/24/20 09:14 Ascorbic Acid 500 Mg Tab PO 500 mg BID EDIE Administration Cholecalciferol 1,000 unit 09/21/20 10:00 09/24/20 09:13 Cholecalciferol (Vit D3) 1000 Unit (25 Mcg) Tab PO 1,000 unit QDAY EDIE Administration Dexamethasone 6 mg 09/20/20 17:00 09/24/20 09:13 Dexamethasone 4 Mg Tab PO 09/29/20 10:01 6 mg QDAY EDIE Administration Emtricitabine 200 mg 09/20/20 12:00 09/24/20 11:00 Emtricitabine 200 Mg Cap PO 200 mg Q96H EDIE Administration Famotidine 20 mg 09/24/20 10:00 09/24/20 09:14 Famotidine 20 Mg Tab PO 20 mg DAILY EDIE Administration Fentanyl 1 applic 09/23/20 14:05 09/23/20 14:42 Fentanyl 25 Mcg/Hr Patch 72hr TD 09/26/20 14:04 1 applic ONCE NR Administration Heparin Sodium (Porcine) 3,000 unit 09/20/20 10:06 Heparin 10,000 Units/10 Ml Vial IV VIRGIL PRN hemodialysis Amiodarone HCl 900 mg/ 500 mls @ 33.333 mls/hr 09/18/20 12:00 09/23/20 11:03 Dextrose IV 0.5 mg/min DIRECT EDIE 16.667 mls/hr Infusion Protocol 1 MG/MIN Norepinephrine 4 mg in 250 mls @ 7.5 mls/hr 09/19/20 11:00 09/23/20 03:51 Levophed Drip 4 Mg/Ns 250 Ml IV 0 mcg/min TITR EDIE 0 mls/hr Titration Protocol 2 MCG/MIN Sodium Chloride 100 mls @ 999 mls/hr 09/20/20 10:06 Nacl 0.9% IV VIRGIL PRN Hypotension Vasopressin 20 unit/ Sodium 101 mls @ 9.09 mls/hr 09/20/20 17:00 09/23/20 18:15 Chloride IV 0 units/min TITR EDIE 0 mls/hr Titration Protocol 0.03 UNITS/MIN Ceftriaxone Sodium 2 gm in 100 mls @ 200 mls/hr 09/22/20 13:00 09/24/20 09:13 Rocephin/Ns 2 Gm/100 Ml IV 200 mls/hr Q24HR EDIE Administration Protocol Metronidazole 500 mg in 100 mls @ 100 mls/hr 09/24/20 08:00 09/24/20 09:12 Flagyl 500 Mg/100 Ml IV 100 mls/hr Q8H EDIE Administration Protocol Metoprolol Tartrate 5 mg 09/19/20 19:06 09/24/20 10:59 Metoprolol Tartrate 5 Mg/5 Ml Inj IV 5 mg Q8HR PRN Administration HR > 135 Minute Metoprolol Tartrate 25 mg 09/24/20 22:00 Metoprolol Tartrate 25 Mg Tab PO BID EDIE Midodrine 5 mg 09/22/20 12:00 09/24/20 10:59 Midodrine 5 Mg Tab PO 5 mg TID@0800,1200,1600 EDIE Administration Ondansetron HCl 4 mg 09/17/20 13:52 Ondansetron 4 Mg/2 Ml Inj IV Q8H PRN Nausea And Vomiting Oxycodone HCl 5 mg 09/21/20 13:14 09/23/20 18:25 Oxycodone 5 Mg Tab PO 5 mg Q6H PRN Administration Pain, Moderate (4-6) Simple Syrup 15 ml 09/20/20 13:10 Simple Syrup 15 Ml FEEDTUBE PRN PRN Hypoglycemia Simple Syrup 30 ml 09/20/20 13:10 Simple Syrup 15 Ml FEEDTUBE PRN PRN Hypoglycemia Sodium Bicarbonate 325 mg 09/20/20 13:10 Sodium Bicarbonate 325 Mg Tab FEEDTUBE PRN PRN For Clogged Feeding Tube Sodium Chloride 10 ml 09/17/20 22:00 09/24/20 09:16 Sodium Chloride 0.9% 10 Ml Flush Syringe IV 10 ml BID EDIE Administration Sodium Chloride 10 ml 09/17/20 13:52 09/24/20 09:15 Sodium Chloride 0.9% 10 Ml Flush Syringe IV 10 ml PRN PRN Administration LINE FLUSH Tenofovir Disoproxil Fumarate 300 mg 09/20/20 22:00 09/20/20 22:25 Tenofovir 300 Mg Tab PO 300 mg Mo EDIE Administration Zinc Sulfate 220 mg 09/21/20 10:00 09/24/20 09:13 Zinc Sulfate 220 Mg Cap PO 220 mg QDAY EDIE Administration
[2020-09-24 12:16] LABS: Hemoglobin 9.5 gm/dl (11.8-15.2); Mean Corpuscular HGB Conc 34 % (32-34); Mean Corpuscular Volume 92 fl (84-94); Platelet Count 78 K/mm3 (140-440); Red Blood Count 3.04 M/mm3 (3.65-5.03)
[2020-09-24 12:30] LABS: INR 1.27 (0.87-1.13)
[2020-09-24 12:31] LABS: Partial Thromboplastin Time 25.7 Sec. (24.2-36.6)
--- NOTE | 2020-09-24 12:59 | Progress Note ---
Assessment and Plan Assessment and plan: This is 70-year-old male with HIV, HTN, and atrial fibrillation (currently on therapeutic anticoagulation with Xarelto) admitted with atrial fibrillation with RVR, SIRs, metabolic acidosis, acute kidney injury, acute hypoxic respiratory failure, hypotension, and CHF Septic Shock Acute hypoxemic respiratory failure 2/2 to volume overload/chf exacerbation Acute systolic heart failure exacerbation Atrial fibrillation with RVR Acute on chronic kidney injury Hypotension Anemia Thrombocytopenia E coli bacteremia E. coli urinary tract infection NSTEMI Elevated Ddimer Leukocytosis HIV, asymptomatic HTN Coagulopathy Transaminitis -Cardiology, CCM, Nephrology, ID, general surgery, heme/onc consulted, a ppreciate recommendations -09/20 COVID-19 PCR positive -Droplet/isolation precautions -Dexamethasone 6 mg p.o. (09/20-09/30) -Vitamin D, vitamin C, zinc -Vasopressor support with levophed and vasopressin, midodrine -09/17 CXR shows borderline heart size, mild central pulmonary venous congestion -09/17 renal ultrasound shows no acute findings -09/18 echocardiogram shows left ventricle systolic function mildly decreased, LVEF of 40 to 45% with mild concentric left ventricle hypertrophy, trace MR, mild TR, trace IA -09/19 abdominal ultrasound shows large gallstone within the gallbladder, no pericholecystic fluid, gallbladder wall upper limits of normal measuring 3 mm -09/21 HIDA scan shows no evidence of acute cholecystitis -09/21 BLE Dopplar US no evidence for DVT -09/23 CT head shows no acute intracranial hemorrhage or parenchymal abnormality, mild diffuse brain atrophy with commensurate ventricular enlargement which is likely age appropriate, small frontal scalp lipoma measuring 9 mm in thickness, 4 cm in length, and 4 cm in width., Sinuses and mastoid air cells are clear. -09/17 proBNP 21482 -S/p IV Lasix twice daily -09/20 nephrology initiated the patient on dialysis -Pulmonary hygiene -Bipap qhs -PO amiodarone -HIV meds per ID -IV abx therapy -HIT pending -Trend CBC, BMP, LFTs DVT/GI prophylaxis: PPI, SCDs to bilateral lower extremities while in bed, no chemical anticoagulation at this time d/t thrombocytopenia Disposition: transfer to [facility] The high probability of a clinically significant, sudden or life threatening deterioration of the [multi] system(s) required my full and direct attention, intervention and personal management. The aggregate critical care time was [25] minutes. This time is in addition to time spent performing reported procedures but includes the following: [x] Data Review and interpretation [x] Patient assessment and monitoring of vital signs [x] Documentation [x] Medication orders and management History Interval history: This is 70-year-old male with HIV, HTN, and atrial fibrillation (currently on therapeutic anticoagulation with Xarelto) presents the emergency department on 09/17 with complaints of shortness of breath over the past 3 days and on arrival of EMS patient was found to have a pulse oximetry of 85% on room air. He was placed on supplemental oxygenation. Of note patient was admitted on 09/15 with similar complaints and found to have A. fib with RVR, hyponatremia, hypomagnesemia and acute kidney injury and left AMA. He was admitted to the hospital service with atrial fibrillation with RVR, SIRs, metabolic acidosis, acute kidney injury, acute hypoxic respiratory failure, hypotension, and CHF . Cardiology, CCM and nephrology were consulted. 09/18/2020. Await echocardiogram to assess for diastolic versus systolic etiology. Patient with elevated BNP greater than 18,000. Patient apparently was admitted approximately 3 days ago but left AMA. Cardiology consulted for heart failure, A. fib with RVR and elevated troponin. Patient denies chest pain. Also, patient with elevated creatinine of 4.7 with creatinine 2.8 on recent admission. We do not have a previous creatinine as a baseline to compare. Nephrology consultation pending. Follow-up renal ultrasound. Patient with coagulopathy and INR 3.04. Unsure if patient was on anticoagulation for A. fib. 09/19/2020. Patient likely with vasomotor acute kidney injury in the setting of shock. Follow-up urine studies and renal ultrasound. Creatinine continues to worsen. Nephrology following. Etiology of respiratory failure secondary to heart failure with Covid testing pending. Elevated troponin suggestive of NSTEMI. Continue diuresis with Lasix. Continue IV amiodarone for rate control of A. fib with RVR. Continue heparin. Follow-up echocardiogram. Cardiology following. 09/20/2020: This time my examination patient was on BiPAP therapy and now is on nasal cannula. Patient remains on amiodarone drip with heart rate in the 130s to 140s and vasopressor support with Levophed. Today nephrology will initiate hemodialysis given worsening renal function studies and has stopped diuresis with Lasix. ID resumed antiretroviral therapy and ordered a HIDA scan. Today the patient received a temporary Vas-Cath and is COVID-19 PCR resulted as positive. Patient will be started on vitamin C, vitamin D and zinc and de xamethasone given need for supplemental oxygenation. 09/21: Ecoli UTI and bacteremia and ID has changed him to meropenem, Patient received HD yesterday and patient remains on amiodarone drip. He is off the floor to obtain a HIDA scan. 09/22: HIDA scan did not show acute cholecystitis. Ecoli bacteremia is sensitive to ceftriaxone and ID changed his abx. Mentation is better. BP is liable. Remains on levophed and vasopressin. We started midodrine. HIT panel pending and hem/onc consulted. 09/23: Patient noted to have unequal pupils with left >right, STAT CT head ordered. Nephro will withhold hemodialysis and assess needs as kidney function has gotten better. Patient symptomatically follows commands and is on nasal cannula. Cardiology stopped his Eliquis due to persistent thrombocytopenia. 09/24: Patient remains confused, pupils still unequal. Started on eliquis 2.5 today and he will be transferred to [facility]. Hospitalist Physical - Constitutional Vitals: Temp Pulse Resp BP Pulse Ox 97.6 F 100 H 17 120/79 100 09/24/20 12:18 09/24/20 12:45 09/24/20 12:45 09/24/20 12:45 09/24/20 12:45 General appearance: Present: no acute distress - EENT Eyes: Absent: PERRL (unequal pupils) ENT: poor dentition - Neck Neck: Absent: masses or JVD, cervical LAD - Respiratory Respiratory effort: normal Respiratory: bilateral: diminished - Cardiovascular Rhythm: irregularly irregular Heart Sounds: Present: S1 & S2. Absent: systolic murmur, diastolic murmur - Extremities Extremities: no ischemia, pulses intact, pulses symmetrical, normal temperature, normal color Peripheral Pulses: within normal limits - Abdominal General gastrointestinal: soft, non-tender, non-distended, normal bowel sounds - Integumentary Integumentary: Present: warm, dry - Psychiatric Psychiatric: agitated - Neurologic Neurologic: moves all extremities - Allied Health Allied health notes reviewed: nursing, RT HEART Score - HEART Score Troponin: Troponin T < 0.010 ng/mL (0.00-0.029) 09/22/20 05:38 Results - Labs CBC & Chem 7: 09/24/20 12:13 09/24/20 11:25 Labs: Laboratory Last Values WBC 20.8 K/mm3 (4.5-11.0) H 09/24/20 12:13 RBC 3.04 M/mm3 (3.65-5.03) L 09/24/20 12:13 Hgb 9.5 gm/dl (11.8-15.2) L 09/24/20 12:13 Hct 28.0 % (35.5-45.6) L 09/24/20 12:13 MCV 92 fl (84-94) 09/24/20 12:13 MCH 31 pg (28-32) 09/24/20 12:13 MCHC 34 % (32-34) 09/24/20 12:13 RDW 14.0 % (13.2-15.2) 09/24/20 12:13 Plt Count 78 K/mm3 (140-440) L 09/24/20 12:13 Lymph % (Auto) 3.1 % (13.4-35.0) L 09/22/20 05:38 Mckenzie % (Auto) 10.7 % (0.0-7.3) H 09/22/20 05:38 Eos % (Auto) 0.1 % (0.0-4.3) 09/22/20 05:38 Baso % (Auto) 0.2 % (0.0-1.8) 09/22/20 05:38 Lymph # (Auto) 0.5 K/mm3 (1.2-5.4) L 09/22/20 05:38 Mckenzie # (Auto) 1.7 K/mm3 (0.0-0.8) H 09/22/20 05:38 Eos # (Auto) 0.0 K/mm3 (0.0-0.4) 09/22/20 05:38 Baso # (Auto) 0.0 K/mm3 (0.0-0.1) 09/22/20 05:38 Add Manual Diff Complete 09/23/20 04:36 Total Counted 100 09/23/20 04:36 Seg Neutrophils % Hand Fretted Instrument Maker 09/23/20 04:36 Seg Neuts % (Manual) 91.0 % (40.0-70.0) H 09/23/20 04:36 Band Neutrophils % 2.0 % 09/23/20 04:36 Lymphocytes % (Manual) 2.0 % (13.4-35.0) L 09/23/20 04:36 Monocytes % (Manual) 5.0 % (0.0-7.3) 09/23/20 04:36 Nucleated RBC % Not Reportable 09/23/20 04:36 Seg Neutrophils # 13.6 K/mm3 (1.8-7.7) H 09/22/20 05:38 Seg Neutrophils # Man 12.9 K/mm3 (1.8-7.7) H 09/23/20 04:36 Band Neutrophils # 0.3 K/mm3 09/23/20 04:36 Abs Lymphs (Manual) 223 cells/uL (850-3900) L 09/19/20 13:35 Lymphocytes # (Manual) 0.3 K/mm3 (1.2-5.4) L 09/23/20 04:36 Abs React Lymphs (Man) 0.0 K/mm3 09/23/20 04:36 Monocytes # (Manual) 0.7 K/mm3 (0.0-0.8) 09/23/20 04:36 Eosinophils # (Manual) 0.0 K/mm3 (0.0-0.4) 09/23/20 04:36 Basophils # (Manual) 0.0 K/mm3 (0.0-0.1) 09/23/20 04:36 Metamyelocytes # 0.0 K/mm3 09/23/20 04:36 Myelocytes # 0.0 K/mm3 09/23/20 04:36 Promyelocytes # 0.0 K/mm3 09/23/20 04:36 Blast Cells # 0.0 K/mm3 09/23/20 04:36 WBC Morphology Not Reportable 09/23/20 04:36 Hypersegmented Neuts Not Reportable 09/23/20 04:36 Hyposegmented Neuts Not Reportable 09/23/20 04:36 Hypogranular Neuts Not Reportable 09/23/20 04:36 Smudge Cells Not Reportable 09/23/20 04:36 Toxic Granulation Not Reportable 09/23/20 04:36 Toxic Vacuolation Not Reportable 09/23/20 04:36 Dohle Bodies Not Reportable 09/23/20 04:36 Pelger-Huet Anomaly Not Reportable 09/23/20 04:36 Vinh Rods Not Reportable 09/23/20 04:36 Platelet Estimate Consistent w auto 09/23/20 04:36 Clumped Platelets Not Reportable 09/23/20 04:36 Plt Clumps, EDTA Not Reportable 09/23/20 04:36 Large Platelets Not Reportable 09/23/20 04:36 Giant Platelets Not Reportable 09/23/20 04:36 Platelet Satelliting Not Reportable 09/23/20 04:36 Plt Morphology Comment Not Reportable 09/23/20 04:36 RBC Morphology Not Reportable 09/23/20 04:36 Dimorphic RBCs Not Reportable 09/23/20 04:36 Polychromasia Not Reportable 09/23/20 04:36 Hypochromasia Not Reportable 09/23/20 04:36 Poikilocytosis Not Reportable 09/23/20 04:36 Anisocytosis 1+ 09/23/20 04:36 Microcytosis Not Reportable 09/23/20 04:36 Macrocytosis Not Reportable 09/23/20 04:36 Spherocytes Not Reportable 09/23/20 04:36 Pappenheimer Bodies Not Reportable 09/23/20 04:36 Sickle Cells Not Reportable 09/23/20 04:36 Target Cells Few 09/23/20 04:36 Tear Drop Cells Not Reportable 09/23/20 04:36 Ovalocytes Not Reportable 09/23/20 04:36 Helmet Cells Not Reportable 09/23/20 04:36 Lazo-Markle Bodies Not Reportable 09/23/20 04:36 Bowie Rings Not Reportable 09/23/20 04:36 Vita Cells Not Reportable 09/23/20 04:36 Bite Cells Not Reportable 09/23/20 04:36 Crenated Cell Not Reportable 09/23/20 04:36 Elliptocytes Not Reportable 09/23/20 04:36 Acanthocytes (Spur) Not Reportable 09/23/20 04:36 Rouleaux Not Reportable 09/23/20 04:36 Hemoglobin C Crystals Not Reportable 09/23/20 04:36 Schistocytes Not Reportable 09/23/20 04:36 Malaria parasites Not Reportable 09/23/20 04:36 Zachary Bodies Not Reportable 09/23/20 04:36 Hem Pathologist Commnt No 09/23/20 04:36 PT 15.7 Sec. (12.2-14.9) H 09/24/20 12:13 INR 1.27 (0.87-1.13) H 09/24/20 12:13 APTT 25.7 Sec. (24.2-36.6) 09/24/20 12:13 D-Dimer 1772.86 ng/mlDDU (0-234) H 09/24/20 05:00 Heparin Anti-Xa Level 0.10 U.I./ml (0.3-0.7) L 09/20/20 04:00 ABG pH 7.508 (7.320-7.450) H 09/17/20 10:28 POC ABG pCO2 22.8 mmHg (32.0-48.0) L 09/17/20 10:28 POC ABG pO2 66.8 mmHg (83-108) L 09/17/20 10:28 POC ABG HCO3 17.7 09/17/20 10:28 ABG O2 Saturation 93.4 (0-100) 09/17/20 10:28 POC ABG Base Excess -3.5 09/17/20 10:28 ABG Hemoglobin 12.7 (12.0-17.5) 09/17/20 10:28 ABG Oxyhemoglobin 92.7 (94-98) L 09/17/20 10:28 ABG Methemoglobin 0.3 (0.0-1.5) 09/17/20 10:28 ABG Sodium 127.4 mmol/L (136.0-145.0) L 09/17/20 10:28 ABG Potassium 4.7 mmol/L (3.40-4.50) H 09/17/20 10:28 ABG Chloride 101.0 mmol/L (98-107) 09/17/20 10:28 ABG Glucose 121 mg/dL (65-95) H 09/17/20 10:28 Carboxyhemoglobin 0.4 (0.5-1.5) L 09/17/20 10:28 FiO2 % 21 09/17/20 10:28 Sodium 142 mmol/L (137-145) 09/24/20 05:00 Potassium 3.9 mmol/L (3.6-5.0) 09/24/20 05:00 Chloride 107.1 mmol/L (98-107) H 09/24/20 05:00 Carbon Dioxide 25 mmol/L (22-30) 09/24/20 05:00 Anion Gap 14 mmol/L 09/24/20 05:00 BUN 90 mg/dL (9-20) H 09/24/20 05:00 Creatinine 3.1 mg/dL (0.8-1.3) H 09/24/20 11:25 Estimated GFR 24 ml/min 09/24/20 11:25 BUN/Creatinine Ratio 29 % 09/24/20 05:00 Glucose 118 mg/dL (75-100) H 09/24/20 05:00 POC Glucose 114 mg/dL (70-105) H 09/24/20 05:12 Lactic Acid 1.00 mmol/L (0.7-2.0) 09/20/20 17:10 Calcium 9.2 mg/dL (8.4-10.2) 09/24/20 05:00 Phosphorus 6.30 mg/dL (2.5-4.5) H 09/19/20 03:30 Magnesium 1.80 mg/dL (1.7-2.3) 09/17/20 10:47 Ferritin 1190.0 ng/mL (30.0-300.0) H 09/24/20 05:00 Total Bilirubin 2.40 mg/dL (0.1-1.2) H 09/21/20 Unknown AST 31 units/L (5-40) 09/21/20 Unknown ALT 57 units/L (7-56) H 09/21/20 Unknown Alkaline Phosphatase < 5 units/L (35-129) L 09/21/20 Unknown Lactate Dehydrogenase 276 units/L (91-180) H 09/24/20 05:00 Total Creatine Kinase 20 units/L (55-170) L 09/19/20 03:30 Troponin T < 0.010 ng/mL (0.00-0.029) 09/22/20 05:38 C-Reactive Protein 4.20 mg/dL (0.00-1.30) H 09/24/20 05:00 NT-Pro-B Natriuret Pep 08609 pg/mL (0-900) H 09/17/20 10:47 Total Protein 6.7 g/dL (6.3-8.2) 09/21/20 Unknown Albumin 1.9 g/dL (3.9-5) L 09/21/20 Unknown Albumin/Globulin Ratio 0.4 % 09/21/20 Unknown Triglycerides 137 mg/dL (2-149) 09/17/20 13:54 Cholesterol 48 mg/dL (50-199) L 09/17/20 13:54 LDL Cholesterol Direct 4 mg/dL (50-130) L 09/17/20 13:54 HDL Cholesterol 9 mg/dL (40-59) L 09/17/20 13:54 Cholesterol/HDL Ratio 5.33 % 09/17/20 13:54 Procalcitonin 23.83 ng/mL (<0.15) 09/20/20 17:10 PTH Intact 161.4 pg/mL (15-65) H 09/19/20 03:30 Arterial Blood Glucose 121 mg/dL (65-95) H 09/17/20 10:28 Arterial Blood Ionized Calcium 5.0 mg/dL (4.6-5.3) 09/17/20 10:28 Urine Color Yellow (Yellow) 09/18/20 12:00 Urine Turbidity Cloudy (Clear) 09/18/20 12:00 Urine pH 5.0 (5.0-7.0) 09/18/20 12:00 Ur Specific [place] 1.009 (1.003-1.030) 09/18/20 12:00 Urine Protein 30 mg/dl mg/dL (Negative) 09/18/20 12:00 Urine Glucose (UA) Neg mg/dL (Negative) 09/18/20 12:00 Urine Ketones Neg mg/dL (Negative) 09/18/20 12:00 Urine Blood Sm (Negative) 09/18/20 12:00 Urine Nitrite Neg (Negative) 09/18/20 12:00 Urine Bilirubin Neg (Negative) 09/18/20 12:00 Urine Urobilinogen < 2.0 mg/dL (<2.0) 09/18/20 12:00 Ur Leukocyte Esterase Mod (Negative) 09/18/20 12:00 Urine WBC (Auto) 71.0 /HPF (0.0-6.0) H 09/18/20 12:00 Urine RBC (Auto) 2.0 /HPF (0.0-6.0) 09/18/20 12:00 U Epithel Cells (Auto) 1.0 /HPF (0-13.0) 09/18/20 12:00 Urine Bacteria (Auto) 4+ /HPF (Negative) 09/18/20 12:00 Urine WBC Clumps 2+ /HPF 09/18/20 12:00 Hyaline Casts 3 /LPF 09/18/20 12:00 Granular Casts 3 /LPF 09/18/20 12:00 Urine Mucus Few /HPF 09/18/20 12:00 Urine Eosinophils None seen (None Seen) 09/19/20 03:15 Urine Creatinine 61.0 mg/dL (0.1-20.0) H 09/18/20 12:00 Urine Sodium 62 mmol/L 09/18/20 12:00 Random Vancomycin 12.7 ug/mL (0-40.0) 09/19/20 03:30 Lymph Enumerat CD4/CD8 0.70 (0.86-5.00) L 09/19/20 13:35 % CD3 Cells 79 % (57-85) 09/19/20 13:35 Absolute CD3 Count 175 cells/uL (840-3060) L 09/19/20 13:35 % CD4 Cells 31 % (30-61) 09/19/20 13:35 Absolute CD4 Count 70 cells/uL (490-1740) L 09/19/20 13:35 % CD8 Cells 45 % (12-42) H 09/19/20 13:35 Absolute CD8 Count 101 cells/uL (180-1170) L 09/19/20 13:35 % CD19 Cells 12 % (6-29) 09/19/20 13:35 Absolute CD19 Count 26 cells/uL (110-660) L 09/19/20 13:35 Coronavirus (PCR) Positive (Negative) A 09/18/20 09:39 Hepatitis A IgM Ab Non-reactive (NonReactive) 09/20/20 17:10 Hep Bs Antigen Non-reactive (Negative) 09/20/20 17:10 Hep B Core IgM Ab Non-reactive (NonReactive) 09/20/20 17:10 Hepatitis C Antibody Non-reactive (NonReactive) 09/20/20 17:10 HIV-1 RNA PCR copies/ml 67 Copies/mL H 09/19/20 13:35 HIV-1 RNA (PCR) log 1.83 Log cps/mL H 09/19/20 13:35 Gardner/IV: Voiding Method Condom Catheter Active Medications - Current Medications Current Medications: Generic Name Dose Route Start Last Admin Trade Name Freq PRN Reason Stop Dose Admin Acetaminophen 650 mg 09/17/20 13:52 Acetaminophen 325 Mg Tab PO Q4H PRN Pain MILD(1-3)/Fever >100.5/ANGEL Albuterol 2.5 mg 09/17/20 13:52 09/17/20 20:47 Albuterol 2.5 Mg/3 Ml Nebu IH 2.5 mg Q4HRT PRN Administration Shortness Of Breath Amiodarone HCl 200 mg 09/24/20 22:00 Amiodarone 200 Mg Tab PO BID EDIE Lipase/Protease/Amylase 1 each 09/20/20 13:10 Lipase 10,500/Protease 25,000/Amylase 43,750 (Units) Dr Patrick FEEDTUBE PRN PRN For Clogged Feeding Tube Apixaban 2.5 mg 09/24/20 12:00 09/24/20 11:57 Apixaban 2.5 Mg Tab PO 2.5 mg Q12HR EDIE Administration Protocol Ascorbic Acid 500 mg 09/20/20 22:00 09/24/20 09:14 Ascorbic Acid 500 Mg Tab PO 500 mg BID EDIE Administration Cholecalciferol 1,000 unit 09/21/20 10:00 09/24/20 09:13 Cholecalciferol (Vit D3) 1000 Unit (25 Mcg) Tab PO 1,000 unit QDAY EDIE Administration Dexamethasone 6 mg 09/20/20 17:00 09/24/20 09:13 Dexamethasone 4 Mg Tab PO 09/29/20 10:01 6 mg QDAY EDIE Administration Emtricitabine 200 mg 09/20/20 12:00 09/24/20 11:00 Emtricitabine 200 Mg Cap PO 200 mg Q96H EDIE Administration Famotidine 20 mg 09/24/20 10:00 09/24/20 09:14 Famotidine 20 Mg Tab PO 20 mg DAILY EDIE Administration Fentanyl 1 applic 09/23/20 14:05 09/23/20 14:42 Fentanyl 25 Mcg/Hr Patch 72hr TD 09/26/20 14:04 1 applic ONCE NR Administration Heparin Sodium (Porcine) 3,000 unit 09/20/20 10:06 Heparin 10,000 Units/10 Ml Vial IV VIRGIL PRN hemodialysis Amiodarone HCl 900 mg/ 500 mls @ 33.333 mls/hr 09/18/20 12:00 09/23/20 11:03 Dextrose IV 0.5 mg/min DIRECT EDIE 16.667 mls/hr Infusion Protocol 1 MG/MIN Norepinephrine 4 mg in 250 mls @ 7.5 mls/hr 09/19/20 11:00 09/23/20 03:51 Levophed Drip 4 Mg/Ns 250 Ml IV 0 mcg/min TITR EDIE 0 mls/hr Titration Protocol 2 MCG/MIN Sodium Chloride 100 mls @ 999 mls/hr 09/20/20 10:06 Nacl 0.9% IV VIRGIL PRN Hypotension Vasopressin 20 unit/ Sodium 101 mls @ 9.09 mls/hr 09/20/20 17:00 09/23/20 18:15 Chloride IV 0 units/min TITR EDIE 0 mls/hr Titration Protocol 0.03 UNITS/MIN Ceftriaxone Sodium 2 gm in 100 mls @ 200 mls/hr 09/22/20 13:00 09/24/20 09:13 Rocephin/Ns 2 Gm/100 Ml IV 200 mls/hr Q24HR EDIE Administration Protocol Metronidazole 500 mg in 100 mls @ 100 mls/hr 09/24/20 08:00 09/24/20 09:12 Flagyl 500 Mg/100 Ml IV 100 mls/hr Q8H EDIE Administration Protocol Metoprolol Tartrate 5 mg 09/19/20 19:06 09/24/20 10:59 Metoprolol Tartrate 5 Mg/5 Ml Inj IV 5 mg Q8HR PRN Administration HR > 135 Minute Metoprolol Tartrate 25 mg 09/24/20 22:00 Metoprolol Tartrate 25 Mg Tab PO BID EDIE Midodrine 5 mg 09/22/20 12:00 09/24/20 10:59 Midodrine 5 Mg Tab PO 5 mg TID@0800,1200,1600 EDIE Administration Ondansetron HCl 4 mg 09/17/20 13:52 Ondansetron 4 Mg/2 Ml Inj IV Q8H PRN Nausea And Vomiting Oxycodone HCl 5 mg 09/21/20 13:14 09/23/20 18:25 Oxycodone 5 Mg Tab PO 5 mg Q6H PRN Administration Pain, Moderate (4-6) Simple Syrup 15 ml 09/20/20 13:10 Simple Syrup 15 Ml FEEDTUBE PRN PRN Hypoglycemia Simple Syrup 30 ml 09/20/20 13:10 Simple Syrup 15 Ml FEEDTUBE PRN PRN Hypoglycemia Sodium Bicarbonate 325 mg 09/20/20 13:10 Sodium Bicarbonate 325 Mg Tab FEEDTUBE PRN PRN For Clogged Feeding Tube Sodium Chloride 10 ml 09/17/20 22:00 09/24/20 09:16 Sodium Chloride 0.9% 10 Ml Flush Syringe IV 10 ml BID EDIE Administration Sodium Chloride 10 ml 09/17/20 13:52 09/24/20 09:15 Sodium Chloride 0.9% 10 Ml Flush Syringe IV 10 ml PRN PRN Administration LINE FLUSH Tenofovir Disoproxil Fumarate 300 mg 09/20/20 22:00 09/20/20 22:25 Tenofovir 300 Mg Tab PO 300 mg Mo EDIE Administration Zinc Sulfate 220 mg 09/21/20 10:00 09/24/20 09:13 Zinc Sulfate 220 Mg Cap PO 220 mg QDAY EDIE Administration Nutrition/Malnutrition Assess - Dietary Evaluation Nutrition/Malnutrition Findings: Nutrition Notes Start: 09/18/20 11:30 Freq: Status: Active Protocol: Document 09/24/20 12:37 CW (Rec: 09/24/20 12:50 CW [id number]) Nutrition Notes Initial or Follow up Reassessment Current Diagnosis Acute Kidney Injury,Heart Failure Other Pertinent Diagnosis COVID-19(+), ME, AMS, Cholethiasis, on HD Current Diet Nepro 1.8 at 45 mL/hr Labs/Tests BUN 90 Cr 3.1 Pertinent Medications Decadron Vasopressin Height 6 ft 1 in Weight 73 kg [place] Body Weight (kg) 83.63 BMI 21.2 Weight Status Underweight Subjective/Other Information F/U for TF at goal and tolerance. TF running at goal and was well tolerated. Percent of energy/protein needs met: 100%/100% Burn Absent Trauma Absent GI Symptoms Constipation Current % PO Negligible Minimum of two criteria No Reduced Bereavement Program Coordinator Strength Measurably Reduced (severe) #2 Nutrition Diagnosis Inadequate oral intake Diagnosis Progress(for reassessment Continues documentation) Is patient on ventilator? No Is Patient Ambulatory and/or Out of Bed No [facility] [phone] Calculation Used for Recommendations [facility] Additional Notes PRO needs: >87 g(>1.2 g/kg for HD) Fluid needs: 1 mL/kcal or per MD Nutrition Intervention Change Diet Order: Continue TF Nutrition Support: Nepro 1.8 at 45 ml/hr with a free water flush of 200 ml q4h Kcal 1,944 Protein (gm) 87 Fluid (mL) 785 Goal #1 Meet at least 75% of estimated kcal and protein needs via TF Goal #2 TF tolerance Goal #3 Weight maintenance/weight gain Anticipated Discharge Needs: Unable to determine at this time. Follow-Up By: 09/27/20 Additional Comments F/U for TF tolerance
--- NOTE | 2020-09-24 13:04 | Progress Note ---
Assessment and Plan * A. fib with RVR * Telemetry reviewed: A flutter/fib 90s to 100s. * Patient is currently weaned off vasopressors. Optimize rate control. Discontinue amiodarone gtt., initiate amiodarone 200 mg p.o. twice daily. Initiate metoprolol 25 mg p.o. twice daily. * No anticoagulation in the setting of severe thrombocytopenia. Discontinue Eliquis due to risk of significant bleeding. * NSTEMI * Troponins elevated, subacute and nonspecific over the weekend. Suspect lab error. Repeat troponins are normal. * Echocardiogram reviewed (09/18/2020): LVEF is 40 to 45%. LV SF is mildly decreased. Mild concentric LVH. RV SF is mildly reduced. No valvular abnormalities. * LOLI with acute tubular necrosis * Patient on dialysis. Nephrology is following. * No GEMA/ARB in setting of LOLI. Avoid nephrotoxic agents. * DVT prophylaxis * No AC in setting of severe thrombocytopenia We will follow This patient was seen in conjunction with Dr Avila who agrees with this assessment and plan of care - Patient Problems (1) AMS (altered mental status) Current Visit: Yes Status: Acute Qualifiers: Altered mental status type: somnolence Qualified Code(s): R40.0 - Somnolence (2) Acute hypoxemic respiratory failure Current Visit: Yes Status: Acute (3) Acute kidney injury (LOLI) with acute tubular necrosis (ATN) Current Visit: Yes Status: Acute (4) Atrial fibrillation with RVR Current Visit: Yes Status: Acute (5) NSTEMI (non-ST elevated myocardial infarction) Current Visit: Yes Status: Acute (6) Metabolic acidosis Current Visit: No Status: Acute (7) Systemic inflammatory response syndrome Current Visit: No Status: Acute Subjective Date of service: 09/24/20 Principal diagnosis: Ac hypoxemic resp failure; A-fib RVR; AE-CHF; LOLI; Septic shock; UTI Interval history: Patient is resting in bed. Altered mental status in the setting of septic shock. Telemetry reviewed: A. fib flutter/fib 90s to 100s. No events Objective Last Vital Signs Temp 97.6 F 09/24/20 12:18 Pulse 100 H 09/24/20 12:45 Resp 17 09/24/20 12:45 BP 120/79 09/24/20 12:45 Pulse Ox 100 09/24/20 12:45 - Physical Examination General: No Apparent Distress HEENT: Positive: PERRL Neck: Positive: neck supple Cardiac: Positive: irregularly irregular, S1/S2 Lungs: Positive: Decreased Breath Sounds Neuro: Positive: Grossly Intact Abdomen: Positive: Soft Skin: Negative: Rash, Wound Musculoskeletal: No Pain Extremities: Present: normal. Absent: edema - Labs and Meds Cardiac Enzymes 09/24/20 Range/Units 05:00 Lactate Dehydrogenase 276 H (91-180) units/L Coagulation 09/24/20 Range/Units 12:13 PT 15.7 H (12.2-14.9) Sec. INR 1.27 H (0.87-1.13) APTT 25.7 (24.2-36.6) Sec. CBC 09/24/20 09/24/20 Range/Units 05:00 12:13 WBC 24.2 H 20.8 H (4.5-11.0) K/mm3 RBC 3.23 L 3.04 L (3.65-5.03) M/mm3 Hgb 10.0 L 9.5 L (11.8-15.2) gm/dl Hct 29.7 L 28.0 L (35.5-45.6) % Plt Count 74 L 78 L (140-440) K/mm3 Comprehensive Metabolic Panel 09/24/20 09/24/20 Range/Units 05:00 11:25 Sodium 142 (137-145) mmol/L Potassium 3.9 (3.6-5.0) mmol/L Chloride 107.1 H (98-107) mmol/L Carbon Dioxide 25 (22-30) mmol/L BUN 90 H (9-20) mg/dL Creatinine 3.1 H 3.1 H (0.8-1.3) mg/dL Glucose 118 H (75-100) mg/dL Calcium 9.2 (8.4-10.2) mg/dL - Imaging and Cardiology EKG: report reviewed, image reviewed Echo: report reviewed (Echocardiogram reviewed (09/18/2020): LVEF is 40 to 45%. LV SF is mildly decreased. Mild concentric LVH. RV SF is mildly reduced. No valvular abnormality) - Telemetry EKG Rhythm: Atrial Flutter - Allied health notes Allied health notes reviewed: nursing
[2020-09-24] MEDS: oxyCODONE 5 MG TAB PO PRN (16:54)
[2020-09-24] MEDS: AMIODARONE 200 MG TAB PO SCH (21:05)
[2020-09-24] MEDS: METOPROLOL TARTRATE 25 MG TAB PO SCH (21:05)
[2020-09-25 07:32] LABS: Calcium 9.6 mg/dL (8.4-10.2)
--- NOTE | 2020-09-25 08:12 | Progress Note ---
Assessment and Plan 1. Acute kidney injury: Vasomotor LOLI in the setting of shock. ATN likely. Renal US negative for hydro. Bladder scan 0 ml (09/23). Patient require hemodialysis due to significant decline in the renal function. Hemodialysis: 09/20, 09/21. Monitor renal function. Creatinine leveled off. BUN level is increasing. Renal prognosis is guarded. Avoid nephrotoxic agents. Meds dosage based on GFR. Monitor for [employer] needs. HD today. 2. FEN: Metabolic acidosis, improved, monitor. Monitor volume status and lytes. 3. Acute hypoxic respiratory failure: Covid test positive. Supplemental O2. 4. Acute CHF: Echocardiogram: EF 40-45%. CHF orderset / pathway. Monitor. 5. Atrial fibrillation with RVR: On Amio. Followed by Cards. 6. Elevated troponin: Trend. Followed by Cards. 7. Coagulopathy: Trend. 8. Shock / Hypotension: Multifactorial, monitor. Off pressors. 9. Elevated Transaminases: Improving. 10. Metabolic encephalopathy: Monitor. 11. HIV. 12. Anemia, POA: Monitor. Subjective: Patient was seen and examined at the bedside. Objective: General appearance: well-developed, appears stated age, no distress, on BIPAP HEENT: ATNC, L pupil dilated Neck: trachea midline Respiratory: bilateral diminished breath sounds Heart: irregular, S1S2, no murmur Gastrointestinal: soft, normoactive bowel sounds, not tender Integumentary: no obvious rash Ext: no edema Neurologic: lethargic, non-verbal, not following any command Subjective Date of service: 09/25/20 Principal diagnosis: Ac hypoxemic resp failure; A-fib RVR; AE-CHF; LOLI; Septic shock; UTI Objective - Vital Signs Vital signs: Vital Signs - 12hr 09/24/20 09/24/20 09/24/20 20:15 20:30 20:46 Temperature Pulse Rate 86 75 79 Respiratory 13 13 10 L Rate Blood Pressure 108/76 98/63 106/85 O2 Sat by Pulse 98 99 98 Oximetry 09/24/20 09/24/20 09/24/20 21:00 21:05 21:15 Temperature Pulse Rate 83 87 90 Respiratory 11 L 12 13 Rate Blood Pressure 107/89 107/89 116/89 O2 Sat by Pulse 100 100 100 Oximetry 09/24/20 09/24/20 09/24/20 21:30 21:45 22:00 Temperature Pulse Rate 79 85 80 Respiratory 14 12 12 Rate Blood Pressure 111/81 120/86 111/73 O2 Sat by Pulse 100 100 100 Oximetry 09/24/20 09/24/20 09/24/20 22:15 22:30 22:45 Temperature Pulse Rate 84 78 75 Respiratory 12 13 11 L Rate Blood Pressure 111/67 105/64 95/63 O2 Sat by Pulse 99 99 100 Oximetry 09/24/20 09/24/20 09/24/20 23:00 23:15 23:30 Temperature Pulse Rate 80 75 80 Respiratory 11 L 12 9 L Rate Blood Pressure 110/81 95/62 99/69 O2 Sat by Pulse 100 99 100 Oximetry 09/24/20 09/24/20 09/24/20 23:33 23:45 23:51 Temperature Pulse Rate 75 68 84 Respiratory 13 13 12 Rate Blood Pressure 99/69 93/63 93/63 O2 Sat by Pulse 99 97 100 Oximetry 09/24/20 09/25/20 09/25/20 23:55 00:00 00:15 Temperature 97.6 F Pulse Rate 71 64 Respiratory 11 L 12 Rate Blood Pressure 91/70 91/61 O2 Sat by Pulse 100 100 Oximetry 09/25/20 09/25/20 09/25/20 00:30 00:45 01:00 Temperature Pulse Rate 74 89 96 H Respiratory 11 L 11 L 13 Rate Blood Pressure 91/61 125/109 109/71 O2 Sat by Pulse 100 96 95 Oximetry 09/25/20 09/25/20 09/25/20 01:16 01:30 01:45 Temperature Pulse Rate 93 H 95 H 91 H Respiratory 12 10 L 10 L Rate Blood Pressure 129/89 119/73 119/73 O2 Sat by Pulse 100 99 Oximetry 09/25/20 09/25/20 09/25/20 02:00 02:15 02:30 Temperature Pulse Rate 90 81 92 H Respiratory 14 12 12 Rate Blood Pressure 118/77 108/82 105/74 O2 Sat by Pulse 100 99 100 Oximetry 09/25/20 09/25/20 09/25/20 02:45 03:01 03:15 Temperature Pulse Rate 94 H 86 87 Respiratory 11 L 13 13 Rate Blood Pressure 101/71 101/71 104/70 O2 Sat by Pulse 100 94 100 Oximetry 09/25/20 09/25/20 09/25/20 03:31 03:40 03:45 Temperature 98 F Pulse Rate 91 H 99 H Respiratory 13 17 Rate Blood Pressure 112/74 112/74 O2 Sat by Pulse Oximetry 09/25/20 09/25/20 09/25/20 04:00 04:01 04:15 Temperature Pulse Rate 91 H 98 H 89 Respiratory 18 17 15 Rate Blood Pressure 115/80 115/80 O2 Sat by Pulse 99 100 100 Oximetry 09/25/20 09/25/20 09/25/20 04:30 04:45 05:00 Temperature Pulse Rate 79 84 87 Respiratory 16 12 14 Rate Blood Pressure 104/76 112/79 105/73 O2 Sat by Pulse 100 100 99 Oximetry 09/25/20 09/25/20 09/25/20 05:15 05:30 05:32 Temperature Pulse Rate 117 H 88 100 H Respiratory 17 11 L 17 Rate Blood Pressure 105/73 104/79 124/87 O2 Sat by Pulse 100 Oximetry 09/25/20 09/25/20 09/25/20 05:45 06:00 07:15 Temperature Pulse Rate 88 96 H 89 Respiratory 12 14 12 Rate Blood Pressure 120/87 113/78 115/77 O2 Sat by Pulse 100 Oximetry - Lab 09/25/20 10:45 09/25/20 06:40 Most recent lab results ABG pH 7.508 (7.320-7.450) H 09/17/20 10:28 ABG O2 Saturation 93.4 (0-100) 09/17/20 10:28 Calcium 9.6 mg/dL (8.4-10.2) 09/25/20 06:40 Phosphorus 6.30 mg/dL (2.5-4.5) H 09/19/20 03:30 Magnesium 1.80 mg/dL (1.7-2.3) 09/17/20 10:47 Urine Creatinine 61.0 mg/dL (0.1-20.0) H 09/18/20 12:00 Urine Sodium 62 mmol/L 09/18/20 12:00 Medications & Allergies - Medications Allergies/Adverse Reactions: Allergies No Known Allergies Allergy (Unverified 09/15/20 06:37) Home Medications: Home Medications Medication Instructions Recorded Confirmed Last Taken Type AtorvaSTATin [Lipitor] 20 mg PO QHS 09/18/20 09/18/20 Unknown History Dolutegravir [Tivicay] 50 mg PO DAILY 09/18/20 09/18/20 Unknown History Emtricitabine/Tenofov Alafenam 1 tab PO DAILY 09/18/20 09/18/20 Unknown History [Descovy 200-25 mg (Nf)] Rivaroxaban [Xarelto] 15 mg PO QDAY 09/18/20 09/18/20 Unknown History allopurinoL [Zyloprim] 300 mg PO QDAY 09/18/20 09/18/20 Unknown History carvediloL [Coreg] 25 mg PO BID 09/18/20 09/18/20 Unknown History lisinopriL [Lisinopril] 20 mg PO DAILY 09/18/20 09/18/20 Unknown History Active Medications: Generic Name Dose Route Start Last Admin Trade Name Freq PRN Reason Stop Dose Admin Acetaminophen 650 mg 09/17/20 13:52 Acetaminophen 325 Mg Tab PO Q4H PRN Pain MILD(1-3)/Fever >100.5/ANGEL Albuterol 2.5 mg 09/17/20 13:52 09/17/20 20:47 Albuterol 2.5 Mg/3 Ml Nebu IH 2.5 mg Q4HRT PRN Administration Shortness Of Breath Amiodarone HCl 200 mg 09/24/20 22:00 09/24/20 21:05 Amiodarone 200 Mg Tab PO 200 mg BID EDIE Administration Lipase/Protease/Amylase 1 each 09/20/20 13:10 Lipase 10,500/Protease 25,000/Amylase 43,750 (Units) Dr Darnell BREENTHODA PRN PRN For Clogged Feeding Tube Apixaban 2.5 mg 09/24/20 12:00 09/24/20 21:04 Apixaban 2.5 Mg Tab PO 2.5 mg Q12HR EDIE Administration Protocol Ascorbic Acid 500 mg 09/20/20 22:00 09/24/20 21:04 Ascorbic Acid 500 Mg Tab PO 500 mg BID EDIE Administration Cholecalciferol 1,000 unit 09/21/20 10:00 09/24/20 09:13 Cholecalciferol (Vit D3) 1000 Unit (25 Mcg) Tab PO 1,000 unit QDAY EDIE Administration Dexamethasone 6 mg 09/20/20 17:00 09/24/20 09:13 Dexamethasone 4 Mg Tab PO 09/29/20 10:01 6 mg QDAY EDIE Administration Emtricitabine 200 mg 09/20/20 12:00 09/24/20 11:00 Emtricitabine 200 Mg Cap PO 200 mg Q96H EDIE Administration Famotidine 20 mg 09/24/20 10:00 09/24/20 09:14 Famotidine 20 Mg Tab PO 20 mg DAILY EDIE Administration Fentanyl 1 applic 09/23/20 14:05 09/23/20 14:42 Fentanyl 25 Mcg/Hr Patch 72hr TD 09/26/20 14:04 1 applic ONCE NR Administration Heparin Sodium (Porcine) 3,000 unit 09/20/20 10:06 Heparin 10,000 Units/10 Ml Vial IV VIRGIL PRN hemodialysis Amiodarone HCl 900 mg/ 500 mls @ 33.333 mls/hr 09/18/20 12:00 09/23/20 11:03 Dextrose IV 0.5 mg/min DIRECT EDIE 16.667 mls/hr Infusion Protocol 1 MG/MIN Norepinephrine 4 mg in 250 mls @ 7.5 mls/hr 09/19/20 11:00 09/23/20 03:51 Levophed Drip 4 Mg/Ns 250 Ml IV 0 mcg/min TITR EDIE 0 mls/hr Titration Protocol 2 MCG/MIN Sodium Chloride 100 mls @ 999 mls/hr 09/20/20 10:06 Nacl 0.9% IV VIRGIL PRN Hypotension Vasopressin 20 unit/ Sodium 101 mls @ 9.09 mls/hr 09/20/20 17:00 09/23/20 18:15 Chloride IV 0 units/min TITR EDIE 0 mls/hr Titration Protocol 0.03 UNITS/MIN Ceftriaxone Sodium 2 gm in 100 mls @ 200 mls/hr 09/22/20 13:00 09/24/20 09:13 Rocephin/Ns 2 Gm/100 Ml IV 200 mls/hr Q24HR EDIE Administration Protocol Metronidazole 500 mg in 100 mls @ 100 mls/hr 09/24/20 08:00 09/24/20 16:53 Flagyl 500 Mg/100 Ml IV 100 mls/hr Q8H EDIE Administration Protocol Metoprolol Tartrate 5 mg 09/19/20 19:06 09/24/20 10:59 Metoprolol Tartrate 5 Mg/5 Ml Inj IV 5 mg Q8HR PRN Administration HR > 135 Minute Metoprolol Tartrate 25 mg 09/24/20 22:00 09/24/20 21:05 Metoprolol Tartrate 25 Mg Tab PO 25 mg BID EDIE Administration Midodrine 5 mg 09/22/20 12:00 09/24/20 16:54 Midodrine 5 Mg Tab PO 5 mg TID@0800,1200,1600 EDIE Administration Ondansetron HCl 4 mg 09/17/20 13:52 Ondansetron 4 Mg/2 Ml Inj IV Q8H PRN Nausea And Vomiting Oxycodone HCl 5 mg 09/21/20 13:14 09/24/20 16:54 Oxycodone 5 Mg Tab PO 5 mg Q6H PRN Administration Pain, Moderate (4-6) Simple Syrup 15 ml 09/20/20 13:10 Simple Syrup 15 Ml FEEDTUBE PRN PRN Hypoglycemia Simple Syrup 30 ml 09/20/20 13:10 Simple Syrup 15 Ml FEEDTUBE PRN PRN Hypoglycemia Sodium Bicarbonate 325 mg 09/20/20 13:10 Sodium Bicarbonate 325 Mg Tab FEEDTUBE PRN PRN For Clogged Feeding Tube Sodium Chloride 10 ml 09/17/20 22:00 09/24/20 21:05 Sodium Chloride 0.9% 10 Ml Flush Syringe IV 10 ml BID EDIE Administration Sodium Chloride 10 ml 09/17/20 13:52 09/24/20 09:15 Sodium Chloride 0.9% 10 Ml Flush Syringe IV 10 ml PRN PRN Administration LINE FLUSH Tenofovir Disoproxil Fumarate 300 mg 09/20/20 22:00 09/20/20 22:25 Tenofovir 300 Mg Tab PO 300 mg Mo EDIE Administration Zinc Sulfate 220 mg 09/21/20 10:00 09/24/20 09:13 Zinc Sulfate 220 Mg Cap PO 220 mg QDAY EDIE Administration
[2020-09-25] MEDS: MIDODRINE 5 MG TAB PO SCH ×3 (08:21→15:00)
[2020-09-25] MEDS: CHOLECALCIFEROL (VIT D3) 1000 UNIT (25 mcg) TAB PO SCH (10:20)
[2020-09-25] MEDS: ASCORBIC ACID 500 MG TAB PO SCH (10:21)
[2020-09-25] MEDS: FAMOTIDINE 20 MG TAB PO SCH (10:21)
[2020-09-25] MEDS: DEXAMETHASONE 4 MG TAB PO SCH (10:21)
[2020-09-25] MEDS: AMIODARONE 200 MG TAB PO SCH ×2 (10:22→22:51)
[2020-09-25] MEDS: METOPROLOL TARTRATE 25 MG TAB PO SCH ×2 (10:22→23:02)
[2020-09-25] MEDS: DOLUTEGRAVIR 50 MG TAB PO SCH (10:23)
[2020-09-25] MEDS: cefTRIAXone/NS 2 GM/100 ML 2 GM/100 ML BAG IV SCH (10:23)
[2020-09-25] MEDS: APIXABAN 2.5 MG TAB PO SCH ×2 (10:23→22:52)
[2020-09-25] MEDS: ZINC SULFATE 220 MG CAP PO SCH (10:23)
[2020-09-25] MEDS: metroNIDAZOLE/NS 500 MG/100 ML 500 MG/100 ML BAG IV SCH ×2 (10:24)
[2020-09-25 10:54] LABS: Hematocrit 31.3 % (35.5-45.6); Hemoglobin 10.2 gm/dl (11.8-15.2); Mean Corpuscular HGB Conc 33 % (32-34); Mean Corpuscular Volume 94 fl (84-94); Platelet Count 139 K/mm3 (140-440); Red Blood Count 3.33 M/mm3 (3.65-5.03); Red Cell Distribution Width 14.1 % (13.2-15.2)
[2020-09-25] MEDS ORDERED: SODIUM CHLORIDE 0.9% 1000 ML 2,000 ML ONE (11:02)
--- NOTE | 2020-09-25 11:12 | Progress Note ---
Assessment and Plan Cultures: 09/18/2020 COVID-19 PCR: Positive 09/18/2020 blood culture: E.coli 09/18/2020 Urine culture: E.coli 09/19/2020 sputum culture: Contaminated with oral secretions 09/19/2020 HIV RNA PCR: 67 copies per mL Assessment: 70-year-old male with history of HIV infection (unknown CD4/VL/ART compliance), hypertension, atrial fibrillation on Xarelto, initially admitted on 09/15/2020 RVR A. fib, LOLI, left AMA, came back to the ED on 09/17/2020 secondary to worsening shortness of breath for 3 days: #Severe sepsis with septic shock: secondary to E.coli bacteremia ?from UTI. HIDA scan negative for acute cholecystitis #E.coli bacteremia: Likely from UTI. RUQ US did show a large GB stone. Labs initially with elevated LFTs and bilirubin. HIDA negative. Was seen by Gen Surg #UTI: Urinalysis with 71 WBCs and moderate leukocyte esterase. Urine culture with E.coli #COVID-19: PCR positive. On supplemental oxygen. Was not given remdesivir due to renal failure. #LOLI: Likely due to sepsis. On HD. #Acute respiratory hypoxic failure: on NC. #HIV: listed meds are Descovy + Tivicay. Likely good control since his HIV RNA PCR came back at 67 copies/ml. CD4 is 70 but 30%, overall count is low likely due to steroids. OI prophylaxis is not needed. #Acute encephalopathy: ?multifactorial. CT head unremarkable for acute process. Recommendations: -if WBC remains elevated, get CT abdomen pelvis without contrast -continue IV ceftriaxone 2 g daily -flagyl discontinued -complete steroid course for COVID-19 -continue renally dosed antiretroviral therapy based on formulary/therapeutic interchange: TDF + FTC + DTG -HIV RNA PCR came back at 67 copies/ml. CD4 is 70 but 30%, overall count is low likely due to steroids. OI prophylaxis is not needed Pat Rae MD, FACP [facility] ([facility] O: [phone] F: [phone] Subjective Date of service: 09/25/20 Principal diagnosis: Ac hypoxemic resp failure; A-fib RVR; AE-CHF; LOLI; Septic shock; UTI Interval history: No fever. On nasal cannula this morning. Remains off pressors. WBC improving. Objective - Exam Narrative Exam: Physical Exam (reviewed in chart to minimize risk of transmission) Constitutional: deferred Head, Ears, Nose: deferred Eyes: deferred Neck: deferred Oral: deferred Cardiovascular: deferred Respiratory: deferred GI: deferred Musculoskeletal: deferred Skin: deferred Hem/Lymphatic: deferred Psych: deferred Neurological: deferred - Constitutional Vitals: Vital Signs Temp Pulse Resp BP Pulse Ox 98 F 110 H 13 135/85 100 09/25/20 03:40 09/25/20 10:22 09/25/20 08:45 09/25/20 10:22 09/25/20 07:15 Temperature -Last 24 Hours Temperature 98 F Temperature 97.6 F Temperature 97.7 F Temperature 97.4 F Temperature 97.6 F - Labs CBC & Chem 7: 09/25/20 10:45 09/25/20 06:40 Labs: Abnormal lab results 09/24/20 09/24/20 09/24/20 Range/Units 11:25 12:09 12:13 WBC 20.8 H (4.5-11.0) K/mm3 RBC 3.04 L (3.65-5.03) M/mm3 Hgb 9.5 L (11.8-15.2) gm/dl Hct 28.0 L (35.5-45.6) % Plt Count 78 L (140-440) K/mm3 PT (12.2-14.9) Sec. INR (0.87-1.13) Chloride (98-107) mmol/L BUN (9-20) mg/dL Creatinine 3.1 H (0.8-1.3) mg/dL Glucose (75-100) mg/dL POC Glucose 110 H (70-105) mg/dL 09/24/20 09/24/20 09/24/20 Range/Units 12:13 17:41 23:34 WBC (4.5-11.0) K/mm3 RBC (3.65-5.03) M/mm3 Hgb (11.8-15.2) gm/dl Hct (35.5-45.6) % Plt Count (140-440) K/mm3 PT 15.7 H (12.2-14.9) Sec. INR 1.27 H (0.87-1.13) Chloride (98-107) mmol/L BUN (9-20) mg/dL Creatinine (0.8-1.3) mg/dL Glucose (75-100) mg/dL POC Glucose 133 H 113 H (70-105) mg/dL 09/25/20 09/25/20 09/25/20 Range/Units 06:40 06:40 10:45 WBC 20.7 H (4.5-11.0) K/mm3 RBC 3.33 L (3.65-5.03) M/mm3 Hgb 10.2 L (11.8-15.2) gm/dl Hct 31.3 L (35.5-45.6) % Plt Count 139 L (140-440) K/mm3 PT (12.2-14.9) Sec. INR (0.87-1.13) Chloride 109.0 H (98-107) mmol/L BUN 98 H (9-20) mg/dL Creatinine 3.0 H 3.0 H (0.8-1.3) mg/dL Glucose 111 H (75-100) mg/dL POC Glucose (70-105) mg/dL
--- NOTE | 2020-09-25 11:47 | Progress Note ---
Assessment and Plan Assessment and plan: This is 70-year-old male with HIV, HTN, and atrial fibrillation (currently on therapeutic anticoagulation with Xarelto) admitted with atrial fibrillation with RVR, SIRs, metabolic acidosis, acute kidney injury, acute hypoxic respiratory failure, hypotension, and CHF Septic Shock Acute hypoxemic respiratory failure 2/2 to volume overload/chf exacerbation Acute systolic heart failure exacerbation Atrial fibrillation with RVR Acute on chronic kidney injury Hypotension Anemia Thrombocytopenia E coli bacteremia E. coli urinary tract infection NSTEMI Elevated Ddimer Leukocytosis HIV, asymptomatic HTN Coagulopathy Transaminitis -Cardiology, CCM, Nephrology, ID, general surgery, heme/onc consulted, a ppreciate recommendations -09/20 COVID-19 PCR positive -Droplet/isolation precautions -Dexamethasone 6 mg p.o. (09/20-09/30) -Vitamin D, vitamin C, zinc -Vasopressor support with levophed and vasopressin, midodrine -09/17 CXR shows borderline heart size, mild central pulmonary venous congestion -09/17 renal ultrasound shows no acute findings -09/18 echocardiogram shows left ventricle systolic function mildly decreased, LVEF of 40 to 45% with mild concentric left ventricle hypertrophy, trace MR, mild TR, trace WA -09/19 abdominal ultrasound shows large gallstone within the gallbladder, no pericholecystic fluid, gallbladder wall upper limits of normal measuring 3 mm -09/21 HIDA scan shows no evidence of acute cholecystitis -09/21 BLE Dopplar US no evidence for DVT -09/23 CT head shows no acute intracranial hemorrhage or parenchymal abnormality, mild diffuse brain atrophy with commensurate ventricular enlargement which is likely age appropriate, small frontal scalp lipoma measuring 9 mm in thickness, 4 cm in length, and 4 cm in width., Sinuses and mastoid air cells are clear. -09/17 proBNP [id number] -S/p IV Lasix twice daily -09/20 nephrology initiated the patient on dialysis -Pulmonary hygiene -Bipap qhs -09/25 CT abd/pelvis without contrast pending -PO amiodarone -HIV meds per ID -IV abx therapy -HIT pending -Trend CBC, BMP, LFTs DVT/GI prophylaxis: PPI, SCDs to bilateral lower extremities while in bed, no chemical anticoagulation at this time d/t thrombocytopenia Disposition: IMCU The high probability of a clinically significant, sudden or life threatening deterioration of the [multi] system(s) required my full and direct attention, intervention and personal management. The aggregate critical care time was [25] minutes. This time is in addition to time spent performing reported procedures but includes the following: [x] Data Review and interpretation [x] Patient assessment and monitoring of vital signs [x] Documentation [x] Medication orders and management History Interval history: This is 70-year-old male with HIV, HTN, and atrial fibrillation (currently on therapeutic anticoagulation with Xarelto) presents the emergency department on 09/17 with complaints of shortness of breath over the past 3 days and on arrival of EMS patient was found to have a pulse oximetry of 85% on room air. He was placed on supplemental oxygenation. Of note patient was admitted on 09/15 with similar complaints and found to have A. fib with RVR, hyponatremia, hypomagnesemia and acute kidney injury and left AMA. He was admitted to the hospital service with atrial fibrillation with RVR, SIRs, metabolic acidosis, acute kidney injury, acute hypoxic respiratory failure, hypotension, and CHF . Cardiology, [facility] and nephrology were consulted. 09/18/2020. Await echocardiogram to assess for diastolic versus systolic etiology. Patient with elevated BNP greater than 18,000. Patient apparently was admitted approximately 3 days ago but left AMA. Cardiology consulted for heart failure, A. fib with RVR and elevated troponin. Patient denies chest pain . Also, patient with elevated creatinine of 4.7 with creatinine 2.8 on recent admission. We do not have a previous creatinine as a baseline to compare. Nephrology consultation pending. Follow-up renal ultrasound. Patient with coagulopathy and INR 3.04. Unsure if patient was on anticoagulation for A. fib. 09/19/2020. Patient likely with vasomotor acute kidney injury in the setting of shock. Follow-up urine studies and renal ultrasound. Creatinine continues to worsen. Nephrology following. Etiology of respiratory failure secondary to heart failure with Covid testing pending. Elevated troponin suggestive of NSTEMI. Continue diuresis with Lasix. Continue IV amiodarone for rate control of A. fib with RVR. Continue heparin. Follow-up echocardiogram. Cardiology following. 09/20/2020: This time my examination patient was on BiPAP therapy and now is on nasal cannula. Patient remains on amiodarone drip with heart rate in the 130s to 140s and vasopressor support with Levophed. Today nephrology will initiate hemodialysis given worsening renal function studies and has stopped diuresis with Lasix. ID resumed antiretroviral therapy and ordered a HIDA scan. Today the patient received a temporary Vas-Cath and is COVID-19 PCR resulted as positive. Patient will be started on vitamin C, vitamin D and zinc and dexamethasone given need for supplemental oxygenation. 09/21: Ecoli UTI and bacteremia and ID has changed him to meropenem, Patient received HD yesterday and patient remains on amiodarone drip. He is off the floor to obtain a HIDA scan. 09/22: HIDA scan did not show acute cholecystitis. Ecoli bacteremia is sensitive to ceftriaxone and ID changed his abx. Mentation is better. BP is liable. Remains on levophed and vasopressin. We started midodrine. HIT panel pending and hem/onc consulted. 09/23: Patient noted to have unequal pupils with left >right, STAT CT head order ed. Nephro will withhold hemodialysis and assess needs as kidney function has gotten better. Patient symptomatically follows commands and is on nasal cannula. Cardiology stopped his Eliquis due to persistent thrombocytopenia. 09/24: Patient remains confused, pupils still unequal. Started on eliquis 2.5 today and he will be transferred to IM. 09/25: Patient remains confused, had Bipap overnight, CT abd/pelvis ordered per ID recommendations given persistent leukocytosis. Cr remains unchanged but BUN in rising. Nephrology is on the case. Hospitalist Physical - Constitutional Vitals: Temp Pulse Resp BP Pulse Ox 98 F 110 H 13 135/85 100 09/25/20 03:40 09/25/20 10:22 09/25/20 08:45 09/25/20 10:22 09/25/20 07:15 General appearance: Present: no acute distress - EENT Eyes: Absent: PERRL ENT: poor dentition - Neck Neck: Present: normal ROM - Respiratory Respiratory effort: normal Respiratory: bilateral: diminished - Cardiovascular Rhythm: regular Heart Sounds: Present: S1 & S2. Absent: systolic murmur, diastolic murmur - Extremities Extremities: no ischemia, pulses intact, pulses symmetrical, No edema, normal temperature, normal color Peripheral Pulses: within normal limits - Abdominal General gastrointestinal: soft, non-tender, non-distended, normal bowel sounds - Integumentary Integumentary: Present: warm, dry - Psychiatric Psychiatric: agitated - Neurologic Neurologic: CNII-XII intact, no focal deficits, moves all extremities - Allied Health Allied health notes reviewed: nursing, RT HEART Score - HEART Score Troponin: Troponin T < 0.010 ng/mL (0.00-0.029) 09/22/20 05:38 Results - Labs CBC & Chem 7: 09/25/20 10:45 09/25/20 06:40 Labs: Laboratory Last Values WBC 20.7 K/mm3 (4.5-11.0) H 09/25/20 10:45 RBC 3.33 M/mm3 (3.65-5.03) L 09/25/20 10:45 Hgb 10.2 gm/dl (11.8-15.2) L 09/25/20 10:45 Hct 31.3 % (35.5-45.6) L 09/25/20 10:45 MCV 94 fl (84-94) 09/25/20 10:45 MCH 31 pg (28-32) 09/25/20 10:45 MCHC 33 % (32-34) 09/25/20 10:45 RDW 14.1 % (13.2-15.2) 09/25/20 10:45 Plt Count 139 K/mm3 (140-440) L 09/25/20 10:45 Lymph % (Auto) 3.1 % (13.4-35.0) L 09/22/20 05:38 [place] % (Auto) 10.7 % (0.0-7.3) H 09/22/20 05:38 Eos % (Auto) 0.1 % (0.0-4.3) 09/22/20 05:38 Baso % (Auto) 0.2 % (0.0-1.8) 09/22/20 05:38 Lymph # (Auto) 0.5 K/mm3 (1.2-5.4) L 09/22/20 05:38 [place] # (Auto) 1.7 K/mm3 (0.0-0.8) H 09/22/20 05:38 Eos # (Auto) 0.0 K/mm3 (0.0-0.4) 09/22/20 05:38 Baso # (Auto) 0.0 K/mm3 (0.0-0.1) 09/22/20 05:38 Add Manual Diff Complete 09/23/20 04:36 Total Counted 100 09/23/20 04:36 Seg Neutrophils % Evs Tech 09/23/20 04:36 Seg Neuts % (Manual) 91.0 % (40.0-70.0) H 09/23/20 04:36 Band Neutrophils % 2.0 % 09/23/20 04:36 Lymphocytes % (Manual) 2.0 % (13.4-35.0) L 09/23/20 04:36 Monocytes % (Manual) 5.0 % (0.0-7.3) 09/23/20 04:36 Nucleated RBC % Not Reportable 09/23/20 04:36 Seg Neutrophils # 13.6 K/mm3 (1.8-7.7) H 09/22/20 05:38 Seg Neutrophils # Man 12.9 K/mm3 (1.8-7.7) H 09/23/20 04:36 Band Neutrophils # 0.3 K/mm3 09/23/20 04:36 Abs Lymphs (Manual) 223 cells/uL (850-3900) L 09/19/20 13:35 Lymphocytes # (Manual) 0.3 K/mm3 (1.2-5.4) L 09/23/20 04:36 Abs React Lymphs (Man) 0.0 K/mm3 09/23/20 04:36 Monocytes # (Manual) 0.7 K/mm3 (0.0-0.8) 09/23/20 04:36 Eosinophils # (Manual) 0.0 K/mm3 (0.0-0.4) 09/23/20 04:36 Basophils # (Manual) 0.0 K/mm3 (0.0-0.1) 09/23/20 04:36 Metamyelocytes # 0.0 K/mm3 09/23/20 04:36 Myelocytes # 0.0 K/mm3 09/23/20 04:36 Promyelocytes # 0.0 K/mm3 09/23/20 04:36 Blast Cells # 0.0 K/mm3 09/23/20 04:36 WBC Morphology Not Reportable 09/23/20 04:36 Hypersegmented Neuts Not Reportable 09/23/20 04:36 Hyposegmented Neuts Not Reportable 09/23/20 04:36 Hypogranular Neuts Not Reportable 09/23/20 04:36 Smudge Cells Not Reportable 09/23/20 04:36 Toxic Granulation Not Reportable 09/23/20 04:36 Toxic Vacuolation Not Reportable 09/23/20 04:36 Dohle Bodies Not Reportable 09/23/20 04:36 Pelger-Huet Anomaly Not Reportable 09/23/20 04:36 Vinh Rods Not Reportable 09/23/20 04:36 Platelet Estimate Consistent w auto 09/23/20 04:36 Clumped Platelets Not Reportable 09/23/20 04:36 Plt Clumps, EDTA Not Reportable 09/23/20 04:36 Large Platelets Not Reportable 09/23/20 04:36 Giant Platelets Not Reportable 09/23/20 04:36 Platelet Satelliting Not Reportable 09/23/20 04:36 Plt Morphology Comment Not Reportable 09/23/20 04:36 RBC Morphology Not Reportable 09/23/20 04:36 Dimorphic RBCs Not Reportable 09/23/20 04:36 Polychromasia Not Reportable 09/23/20 04:36 Hypochromasia Not Reportable 09/23/20 04:36 Poikilocytosis Not Reportable 09/23/20 04:36 Anisocytosis 1+ 09/23/20 04:36 Microcytosis Not Reportable 09/23/20 04:36 Macrocytosis Not Reportable 09/23/20 04:36 Spherocytes Not Reportable 09/23/20 04:36 Pappenheimer Bodies Not Reportable 09/23/20 04:36 Sickle Cells Not Reportable 09/23/20 04:36 Target Cells Few 09/23/20 04:36 Tear Drop Cells Not Reportable 09/23/20 04:36 Ovalocytes Not Reportable 09/23/20 04:36 Helmet Cells Not Reportable 09/23/20 04:36 [place] Bodies Not Reportable 09/23/20 04:36 [place] Rings Not Reportable 09/23/20 04:36 [place] Cells Not Reportable 09/23/20 04:36 Bite Cells Not Reportable 09/23/20 04:36 Crenated Cell Not Reportable 09/23/20 04:36 Elliptocytes Not Reportable 09/23/20 04:36 Acanthocytes (Spur) Not Reportable 09/23/20 04:36 Rouleaux Not Reportable 09/23/20 04:36 Hemoglobin C Crystals Not Reportable 09/23/20 04:36 Schistocytes Not Reportable 09/23/20 04:36 Malaria parasites Not Reportable 09/23/20 04:36 Zachary Bodies Not Reportable 09/23/20 04:36 Hem Pathologist Commnt No 09/23/20 04:36 PT 15.7 Sec. (12.2-14.9) H 09/24/20 12:13 INR 1.27 (0.87-1.13) H 09/24/20 12:13 APTT 25.7 Sec. (24.2-36.6) 09/24/20 12:13 D-Dimer 1772.86 ng/mlDDU (0-234) H 09/24/20 05:00 Heparin Anti-Xa Level 0.10 U.I./ml (0.3-0.7) L 09/20/20 04:00 ABG pH 7.508 (7.320-7.450) H 09/17/20 10:28 POC ABG pCO2 22.8 mmHg (32.0-48.0) L 09/17/20 10:28 POC ABG pO2 66.8 mmHg (83-108) L 09/17/20 10:28 POC ABG HCO3 17.7 09/17/20 10:28 ABG O2 Saturation 93.4 (0-100) 09/17/20 10:28 POC ABG Base Excess -3.5 09/17/20 10:28 ABG Hemoglobin 12.7 (12.0-17.5) 09/17/20 10:28 ABG Oxyhemoglobin 92.7 (94-98) L 09/17/20 10:28 ABG Methemoglobin 0.3 (0.0-1.5) 09/17/20 10:28 ABG Sodium 127.4 mmol/L (136.0-145.0) L 09/17/20 10:28 ABG Potassium 4.7 mmol/L (3.40-4.50) H 09/17/20 10:28 ABG Chloride 101.0 mmol/L (98-107) 09/17/20 10:28 ABG Glucose 121 mg/dL (65-95) H 09/17/20 10:28 Carboxyhemoglobin 0.4 (0.5-1.5) L 09/17/20 10:28 FiO2 % 21 09/17/20 10:28 Sodium 145 mmol/L (137-145) 09/25/20 06:40 Potassium 4.0 mmol/L (3.6-5.0) 09/25/20 06:40 Chloride 109.0 mmol/L (98-107) H 09/25/20 06:40 Carbon Dioxide 27 mmol/L (22-30) 09/25/20 06:40 Anion Gap 13 mmol/L 09/25/20 06:40 BUN 98 mg/dL (9-20) H 09/25/20 06:40 Creatinine 3.0 mg/dL (0.8-1.3) H 09/25/20 06:40 Creatinine 3.0 mg/dL (0.8-1.3) H 09/25/20 06:40 Estimated GFR 25 ml/min 09/25/20 06:40 Estimated GFR 25 ml/min 09/25/20 06:40 BUN/Creatinine Ratio 33 % 09/25/20 06:40 Glucose 111 mg/dL (75-100) H 09/25/20 06:40 POC Glucose 103 mg/dL (70-105) 09/25/20 05:08 Lactic Acid 1.00 mmol/L (0.7-2.0) 09/20/20 17:10 Calcium 9.6 mg/dL (8.4-10.2) 09/25/20 06:40 Phosphorus 6.30 mg/dL (2.5-4.5) H 09/19/20 03:30 Magnesium 1.80 mg/dL (1.7-2.3) 09/17/20 10:47 Ferritin 1190.0 ng/mL (30.0-300.0) H 09/24/20 05:00 Total Bilirubin 2.40 mg/dL (0.1-1.2) H 09/21/20 Unknown AST 31 units/L (5-40) 09/21/20 Unknown ALT 57 units/L (7-56) H 09/21/20 Unknown Alkaline Phosphatase < 5 units/L (35-129) L 09/21/20 Unknown Lactate Dehydrogenase 276 units/L (91-180) H 09/24/20 05:00 Total Creatine Kinase 20 units/L (55-170) L 09/19/20 03:30 Troponin T < 0.010 ng/mL (0.00-0.029) 09/22/20 05:38 C-Reactive Protein 4.20 mg/dL (0.00-1.30) H 09/24/20 05:00 NT-Pro-B Natriuret Pep 49548 pg/mL (0-900) H 09/17/20 10:47 Total Protein 6.7 g/dL (6.3-8.2) 09/21/20 Unknown Albumin 1.9 g/dL (3.9-5) L 09/21/20 Unknown Albumin/Globulin Ratio 0.4 % 09/21/20 Unknown Triglycerides 137 mg/dL (2-149) 09/17/20 13:54 Cholesterol 48 mg/dL (50-199) L 09/17/20 13:54 LDL Cholesterol Direct 4 mg/dL (50-130) L 09/17/20 13:54 HDL Cholesterol 9 mg/dL (40-59) L 09/17/20 13:54 Cholesterol/HDL Ratio 5.33 % 09/17/20 13:54 Free PSA See scanned result 09/17/20 17:35 % Free PSA Calc See scanned result 09/17/20 17:35 Total PSA See scanned result 09/17/20 17:35 Procalcitonin 2.10 ng/mL (<0.15) 09/25/20 06:40 PTH Intact 161.4 pg/mL (15-65) H 09/19/20 03:30 Arterial Blood Glucose 121 mg/dL (65-95) H 09/17/20 10:28 Arterial Blood Ionized Calcium 5.0 mg/dL (4.6-5.3) 09/17/20 10:28 Urine Color Yellow (Yellow) 09/18/20 12:00 Urine Turbidity Cloudy (Clear) 09/18/20 12:00 Urine pH 5.0 (5.0-7.0) 09/18/20 12:00 Ur Specific [place] 1.009 (1.003-1.030) 09/18/20 12:00 Urine Protein 30 mg/dl mg/dL (Negative) 09/18/20 12:00 Urine Glucose (UA) Neg mg/dL (Negative) 09/18/20 12:00 Urine Ketones Neg mg/dL (Negative) 09/18/20 12:00 Urine Blood Sm (Negative) 09/18/20 12:00 Urine Nitrite Neg (Negative) 09/18/20 12:00 Urine Bilirubin Neg (Negative) 09/18/20 12:00 Urine Urobilinogen < 2.0 mg/dL (<2.0) 09/18/20 12:00 Ur Leukocyte Esterase Mod (Negative) 09/18/20 12:00 Urine WBC (Auto) 71.0 /HPF (0.0-6.0) H 09/18/20 12:00 Urine RBC (Auto) 2.0 /HPF (0.0-6.0) 09/18/20 12:00 U Epithel Cells (Auto) 1.0 /HPF (0-13.0) 09/18/20 12:00 Urine Bacteria (Auto) 4+ /HPF (Negative) 09/18/20 12:00 Urine WBC Clumps 2+ /HPF 09/18/20 12:00 Hyaline Casts 3 /LPF 09/18/20 12:00 Granular Casts 3 /LPF 09/18/20 12:00 Urine Mucus Few /HPF 09/18/20 12:00 Urine Eosinophils None seen (None Seen) 09/19/20 03:15 Urine Creatinine 61.0 mg/dL (0.1-20.0) H 09/18/20 12:00 Urine Sodium 62 mmol/L 09/18/20 12:00 Random Vancomycin 12.7 ug/mL (0-40.0) 09/19/20 03:30 Lymph Enumerat CD4/CD8 0.70 (0.86-5.00) L 09/19/20 13:35 % CD3 Cells 79 % (57-85) 09/19/20 13:35 Absolute CD3 Count 175 cells/uL (840-3060) L 09/19/20 13:35 % CD4 Cells 31 % (30-61) 09/19/20 13:35 Absolute CD4 Count 70 cells/uL (490-1740) L 09/19/20 13:35 % CD8 Cells 45 % (12-42) H 09/19/20 13:35 Absolute CD8 Count 101 cells/uL (180-1170) L 09/19/20 13:35 % CD19 Cells 12 % (6-29) 09/19/20 13:35 Absolute CD19 Count 26 cells/uL (110-660) L 09/19/20 13:35 Coronavirus (PCR) Positive (Negative) A 09/18/20 09:39 Hepatitis A IgM Ab Non-reactive (NonReactive) 09/20/20 17:10 Hep Bs Antigen Non-reactive (Negative) 09/20/20 17:10 Hep B Core IgM Ab Non-reactive (NonReactive) 09/20/20 17:10 Hepatitis C Antibody Non-reactive (NonReactive) 09/20/20 17:10 HIV-1 RNA PCR copies/ml 67 Copies/mL H 09/19/20 13:35 HIV-1 RNA (PCR) log 1.83 Log cps/mL H 09/19/20 13:35 [place]/IV: Voiding Method Condom Catheter Active Medications - Current Medications Current Medications: Generic Name Dose Route Start Last Admin Trade Name Freq PRN Reason Stop Dose Admin Acetaminophen 650 mg 09/17/20 13:52 Acetaminophen 325 Mg Tab PO Q4H PRN Pain MILD(1-3)/Fever >100.5/ANGEL Albuterol 2.5 mg 09/17/20 13:52 09/17/20 20:47 Albuterol 2.5 Mg/3 Ml Nebu IH 2.5 mg Q4HRT PRN Administration Shortness Of Breath Amiodarone HCl 200 mg 09/24/20 22:00 09/25/20 10:22 Amiodarone 200 Mg Tab PO 200 mg BID EDIE Administration Lipase/Protease/Amylase 1 each 09/20/20 13:10 Lipase 10,500/Protease 25,000/Amylase 43,750 (Units) Dr Patrick FEEDTUBE PRN PRN For Clogged Feeding Tube Apixaban 2.5 mg 09/24/20 12:00 09/25/20 10:23 Apixaban 2.5 Mg Tab PO 2.5 mg Q12HR EDIE Administration Protocol Ascorbic Acid 500 mg 09/20/20 22:00 09/25/20 10:21 Ascorbic Acid 500 Mg Tab PO 500 mg BID EDIE Administration Cholecalciferol 1,000 unit 09/21/20 10:00 09/25/20 10:20 Cholecalciferol (Vit D3) 1000 Unit (25 Mcg) Tab PO 1,000 unit QDAY EDIE Administration Dexamethasone 6 mg 09/20/20 17:00 09/25/20 10:21 Dexamethasone 4 Mg Tab PO 09/29/20 10:01 6 mg QDAY EDIE Administration Emtricitabine 200 mg 09/20/20 12:00 09/24/20 11:00 Emtricitabine 200 Mg Cap PO 200 mg Q96H EDIE Administration Famotidine 20 mg 09/24/20 10:00 09/25/20 10:21 Famotidine 20 Mg Tab PO 20 mg DAILY EDIE Administration Fentanyl 1 applic 09/23/20 14:05 09/23/20 14:42 Fentanyl 25 Mcg/Hr Patch 72hr TD 09/26/20 14:04 1 applic ONCE NR Administration Heparin Sodium (Porcine) 3,000 unit 09/20/20 10:06 Heparin 10,000 Units/10 Ml Vial IV VIRGIL PRN hemodialysis Norepinephrine 4 mg in 250 mls @ 7.5 mls/hr 09/19/20 11:00 09/23/20 03:51 Levophed Drip 4 Mg/Ns 250 Ml IV 0 mcg/min TITR EDIE 0 mls/hr Titration Protocol 2 MCG/MIN Sodium Chloride 100 mls @ 999 mls/hr 09/20/20 10:06 Nacl 0.9% IV VIRGIL PRN Hypotension Vasopressin 20 unit/ Sodium 101 mls @ 9.09 mls/hr 09/20/20 17:00 09/23/20 18:15 Chloride IV 0 units/min TITR EDIE 0 mls/hr Titration Protocol 0.03 UNITS/MIN Ceftriaxone Sodium 2 gm in 100 mls @ 200 mls/hr 09/22/20 13:00 09/25/20 10:23 Rocephin/Ns 2 Gm/100 Ml IV 200 mls/hr Q24HR EDIE Administration Protocol Metoprolol Tartrate 5 mg 09/19/20 19:06 09/24/20 10:59 Metoprolol Tartrate 5 Mg/5 Ml Inj IV 5 mg Q8HR PRN Administration HR > 135 Minute Metoprolol Tartrate 25 mg 09/24/20 22:00 09/25/20 10:22 Metoprolol Tartrate 25 Mg Tab PO 25 mg BID EDIE Administration Midodrine 5 mg 09/22/20 12:00 09/25/20 08:21 Midodrine 5 Mg Tab PO 5 mg TID@0800,1200,1600 EDIE Administration Ondansetron HCl 4 mg 09/17/20 13:52 Ondansetron 4 Mg/2 Ml Inj IV Q8H PRN Nausea And Vomiting Oxycodone HCl 5 mg 09/21/20 13:14 09/24/20 16:54 Oxycodone 5 Mg Tab PO 5 mg Q6H PRN Administration Pain, Moderate (4-6) Simple Syrup 15 ml 09/20/20 13:10 Simple Syrup 15 Ml FEEDTUBE PRN PRN Hypoglycemia Simple Syrup 30 ml 09/20/20 13:10 Simple Syrup 15 Ml FEEDTUBE PRN PRN Hypoglycemia Sodium Bicarbonate 325 mg 09/20/20 13:10 Sodium Bicarbonate 325 Mg Tab FEEDTUBE PRN PRN For Clogged Feeding Tube Sodium Chloride 10 ml 09/17/20 22:00 09/25/20 10:25 Sodium Chloride 0.9% 10 Ml Flush Syringe IV 10 ml BID EDIE Administration Sodium Chloride 10 ml 09/17/20 13:52 09/24/20 09:15 Sodium Chloride 0.9% 10 Ml Flush Syringe IV 10 ml PRN PRN Administration LINE FLUSH Tenofovir Disoproxil Fumarate 300 mg 09/20/20 22:00 09/20/20 22:25 Tenofovir 300 Mg Tab PO 300 mg Mo EDIE Administration Zinc Sulfate 220 mg 09/21/20 10:00 09/25/20 10:23 Zinc Sulfate 220 Mg Cap PO 220 mg QDAY EDIE Administration Nutrition/Malnutrition Assess - Dietary Evaluation Nutrition/Malnutrition Findings: Nutrition Notes Start: 09/18/20 11:30 Freq: Status: Active Protocol: Document 09/24/20 12:37 CW (Rec: 09/24/20 12:50 CW [email or web address]) Nutrition Notes Initial or Follow up Reassessment Current Diagnosis Acute Kidney Injury,Heart Failure Other Pertinent Diagnosis COVID-19(+), [place], AMS, Cholethiasis, on HD Current Diet Nepro 1.8 at 45 mL/hr Labs/Tests BUN 90 Cr 3.1 Pertinent Medications Decadron Vasopressin Height 6 ft 1 in Weight 73 kg [place] Body Weight (kg) 83.63 BMI 21.2 Weight Status Underweight Subjective/Other Information F/U for TF at goal and tolerance. TF running at goal and was well tolerated. Percent of energy/protein needs met: 100%/100% Burn Absent Trauma Absent GI Symptoms Constipation Current % PO Negligible Minimum of two criteria No Reduced Freight Clerk Strength Measurably Reduced (severe) #2 Nutrition Diagnosis Inadequate oral intake Diagnosis Progress(for reassessment Continues documentation) Is patient on ventilator? No Is Patient Ambulatory and/or Out of Bed No REE-([facility]-confined to bed) [phone] Calculation Used for Recommendations [facility] Additional Notes PRO needs: >87 g(>1.2 g/kg for HD) Fluid needs: 1 mL/kcal or per MD Nutrition Intervention Change Diet Order: Continue TF Nutrition Support: Nepro 1.8 at 45 ml/hr with a free water flush of 200 ml q4h Kcal 1,944 Protein (gm) 87 Fluid (mL) 785 Goal #1 Meet at least 75% of estimated kcal and protein needs via TF Goal #2 TF tolerance Goal #3 Weight maintenance/weight gain Anticipated Discharge Needs: Unable to determine at this time. Follow-Up By: 09/27/20 Additional Comments F/U for TF tolerance
--- NOTE | 2020-09-25 14:09 | Event Note ---
I updated Phil Pena ( daughter) [phone] on current events and updated her on the CT head results, current events and current therapies.
--- NOTE | 2020-09-25 16:23 | Progress Note ---
Assessment and Plan Acute hypoxemic respiratory failure. Atrial fibrillation with rapid ventricular response. Gram negative bacteremia Acute congestive heart failure exacerbation. Acute on chronic kidney injury. Anemia that is microcytic. Coagulopathy appears to be acquired. Respiratory alkalosis. Mild metabolic acidosis. Possible severe sepsis with shock due to a urinary tract infection. Urinary tract infection HIV COVID positive -Titrate supplemental oxygen to keep O2 sast 89-92%, BIPAP qhs and prn - continue enteral nutrition at goal rate as tolerated, using NGT -conitnue with aspiration precautions, HOB >40 - complete antibiotics per ID recommendations. ART therapy per ID service - continue bronchodilators with pulmonary hygiene per RT - continue accuchecks with glycemic control per SSI (While critically ill target blood glucose of 140-180 mg/dL; avoid hypoglycemia) - avoid nephrotoxins, renally dose all medications - continue to avoid benzodiazepines, reduce the possibility of delirium - prn analgesia per pain score - Maintain of sleep-wake cycle, avoid delirium - Stress ulcer and VTE prophylaxis( Famotidine and therapeutic Apixaban) - PT/OT/ROM exercises - continue mobility, off loading, frequent turning per facility protocol to prevent pressure ulcers - Monitor hemodynamics closely -Follow up HIT panel results - continue other care per attending / other consultants COVID SPECIFIC INTERVENTIONS - Did not receive Remdesivir secondary to renal failure - Complete Dexamethasone - zinc and vitamin C supplementation - Monitor inflammatory markers per facility protocol - ferritin, D dimer, CRP - therapeutic anticoagulation per system Protocol based on d-dimer and clinical considerations- currently on Apixaban - Continue contact and airborne isolation per facility protocol Subjective Date of service: 09/25/20 Principal diagnosis: Ac hypoxemic resp failure; A-fib RVR; AE-CHF; LOLI; Septic shock; UTI Interval history: Patient is seen today for: Acute hypoxemic respiratory failure; A-fib with RVR; AE-CHF; LOLI on CKD; Severe sepsis with shock; UTI Seen and examined at bedside; 24hour events reviewed; nursing and respiratory care staff consulted; no adverse overnight events reported to me; resting peacefully in bed; slowly improving off vasopressors on midodrine; no emesis or overt aspiration; no documented fevers, BIPAP qhs. Remains in the ICU, but can be transferred to IMCU. Mental status changes, but awake and alert, weak Objective Vital Signs - 12hr 09/25/20 09/25/20 09/25/20 04:30 04:45 05:00 Temperature Pulse Rate 79 84 87 Respiratory 16 12 14 Rate Blood Pressure 104/76 112/79 105/73 O2 Sat by Pulse 100 100 99 Oximetry O2 Sat by Pulse Oximetry [ Bilateral Throughout] 09/25/20 09/25/20 09/25/20 05:15 05:30 05:32 Temperature Pulse Rate 117 H 88 100 H Respiratory 17 11 L 17 Rate Blood Pressure 105/73 104/79 124/87 O2 Sat by Pulse 100 Oximetry O2 Sat by Pulse Oximetry [ Bilateral Throughout] 09/25/20 09/25/20 09/25/20 05:45 06:00 06:16 Temperature Pulse Rate 88 96 H Respiratory 12 14 Rate Blood Pressure 120/87 113/78 102/57 O2 Sat by Pulse Oximetry O2 Sat by Pulse Oximetry [ Bilateral Throughout] 09/25/20 09/25/20 09/25/20 06:30 06:45 07:00 Temperature Pulse Rate 95 H 92 H 96 H Respiratory 13 14 13 Rate Blood Pressure 108/75 105/67 104/69 O2 Sat by Pulse Oximetry O2 Sat by Pulse Oximetry [ Bilateral Throughout] 09/25/20 09/25/20 09/25/20 07:15 07:30 07:45 Temperature Pulse Rate 83 92 H 84 Respiratory 19 12 14 Rate Blood Pressure 100/76 95/67 95/67 O2 Sat by Pulse 100 Oximetry O2 Sat by Pulse Oximetry [ Bilateral Throughout] 09/25/20 09/25/20 09/25/20 08:00 08:15 08:31 Temperature 97.4 F L Pulse Rate 102 H 94 H 98 H Respiratory 18 12 16 Rate Blood Pressure 115/77 100/73 102/70 O2 Sat by Pulse 99 Oximetry O2 Sat by Pulse Oximetry [ Bilateral Throughout] 09/25/20 09/25/20 09/25/20 08:45 09:01 09:15 Temperature Pulse Rate 94 H 102 H 105 H Respiratory 13 17 14 Rate Blood Pressure 102/70 135/88 135/88 O2 Sat by Pulse Oximetry O2 Sat by Pulse Oximetry [ Bilateral Throughout] 09/25/20 09/25/20 09/25/20 09:30 09:45 10:01 Temperature Pulse Rate 92 H 95 H 106 H Respiratory 13 11 L 13 Rate Blood Pressure 130/100 131/91 135/85 O2 Sat by Pulse Oximetry O2 Sat by Pulse Oximetry [ Bilateral Throughout] 09/25/20 09/25/20 09/25/20 10:15 10:22 10:30 Temperature Pulse Rate 109 H 110 H 115 H Respiratory 16 14 Rate Blood Pressure 135/85 135/85 131/84 O2 Sat by Pulse Oximetry O2 Sat by Pulse Oximetry [ Bilateral Throughout] 09/25/20 09/25/20 09/25/20 10:45 11:00 11:10 Temperature 98.9 F Pulse Rate 106 H 93 H 97 H Respiratory 14 11 L 15 Rate Blood Pressure 129/86 139/90 139/90 O2 Sat by Pulse 93 Oximetry O2 Sat by Pulse 93 Oximetry [ Bilateral Throughout] 09/25/20 09/25/20 09/25/20 11:15 11:30 11:45 Temperature Pulse Rate 92 H 96 H 109 H Respiratory 11 L 11 L 16 Rate Blood Pressure 141/87 127/74 101/65 O2 Sat by Pulse Oximetry O2 Sat by Pulse Oximetry [ Bilateral Throughout] 09/25/20 09/25/20 09/25/20 12:00 12:01 12:15 Temperature 97.7 F Pulse Rate 96 H 99 H 100 H Respiratory 18 15 16 Rate Blood Pressure 137/90 88/64 104/68 O2 Sat by Pulse 99 Oximetry O2 Sat by Pulse Oximetry [ Bilateral Throughout] 09/25/20 09/25/20 09/25/20 12:30 12:31 12:45 Temperature Pulse Rate 97 H 98 H 99 H Respiratory 15 14 Rate Blood Pressure 92/66 92/66 100/71 O2 Sat by Pulse Oximetry O2 Sat by Pulse Oximetry [ Bilateral Throughout] 09/25/20 09/25/20 09/25/20 13:00 13:15 13:30 Temperature Pulse Rate 97 H 96 H 95 H Respiratory 15 16 12 Rate Blood Pressure 93/67 98/62 92/62 O2 Sat by Pulse 99 Oximetry O2 Sat by Pulse Oximetry [ Bilateral Throughout] 09/25/20 09/25/20 09/25/20 13:45 14:00 14:01 Temperature Pulse Rate 98 H 102 H 122 H Respiratory 15 12 Rate Blood Pressure 92/67 107/77 107/77 O2 Sat by Pulse 99 Oximetry O2 Sat by Pulse Oximetry [ Bilateral Throughout] 09/25/20 09/25/20 09/25/20 14:15 14:31 14:38 Temperature 99 F Pulse Rate 103 H 105 H 98 H Respiratory 11 L 16 13 Rate Blood Pressure 110/82 102/72 102/72 O2 Sat by Pulse 98 100 Oximetry O2 Sat by Pulse 100 Oximetry [ Bilateral Throughout] 09/25/20 09/25/20 09/25/20 14:45 15:00 15:15 Temperature Pulse Rate 93 H 108 H 103 H Respiratory 16 16 16 Rate Blood Pressure 95/62 98/71 106/69 O2 Sat by Pulse 100 100 100 Oximetry O2 Sat by Pulse Oximetry [ Bilateral Throughout] 09/25/20 09/25/20 09/25/20 15:31 15:45 16:00 Temperature Pulse Rate 94 H 98 H 104 H Respiratory 10 L 16 18 Rate Blood Pressure 116/78 116/78 O2 Sat by Pulse 98 98 99 Oximetry O2 Sat by Pulse Oximetry [ Bilateral Throughout] 09/25/20 09/25/20 16:01 16:15 Temperature Pulse Rate 99 H 86 Respiratory 12 10 L Rate Blood Pressure 114/73 113/76 O2 Sat by Pulse 96 95 Oximetry O2 Sat by Pulse Oximetry [ Bilateral Throughout] Constitutional: appears uncomfortable, other (elderly male with mildly increased respiratory effort at rest) Eyes: non-icteric ENT: oropharynx moist, other (NGT in nares) Neck: supple, no lymphadenopathy, no JVD Effort: mildly labored Ascultation: Bilateral: rhonchi, other (right SCVL Trialysis catheter) Percussion: Bilateral: not dull Cardiovascular: irregular rhythm, other (S1,S2) Gastrointestinal: normoactive bowel sounds, soft, non-tender, non-distended Integumentary: normal Extremities: no cyanosis, no edema, pulses normal, no ischemia or petechiae Neurologic: non-focal exam (grossly, moves extemities, tracks voice), pupils equal and round, other (delirious) Psychiatric: other (delirious) CBC and BMP: 09/30/20 04:47 09/30/20 04:47 ABG, PT/INR, D-dimer: ABG ABG pH 7.508 (7.320-7.450) H 09/17/20 10:28 POC ABG pCO2 22.8 mmHg (32.0-48.0) L 09/17/20 10:28 POC ABG pO2 66.8 mmHg (83-108) L 09/17/20 10:28 POC ABG HCO3 17.7 09/17/20 10:28 ABG O2 Saturation 93.4 (0-100) 09/17/20 10:28 PT/INR, D-dimer PT 15.7 Sec. (12.2-14.9) H 09/24/20 12:13 INR 1.27 (0.87-1.13) H 09/24/20 12:13 D-Dimer 1772.86 ng/mlDDU (0-234) H 09/24/20 05:00 Abnormal lab findings: Abnormal Labs 09/17/20 09/17/20 09/17/20 10:28 10:47 10:47 WBC 11.1 H RBC 3.44 L Hgb 11.2 L Hct 32.8 L MCV 95 H MCH MCHC Plt Count Lymph % (Auto) [place] % (Auto) Lymph # (Auto) [place] # (Auto) Seg Neutrophils % Seg Neuts % (Manual) Lymphocytes % (Manual) 4.0 L Monocytes % (Manual) Nucleated RBC % Seg Neutrophils # Seg Neutrophils # Man 10.7 H Abs Lymphs (Manual) Lymphocytes # (Manual) 0.4 L PT 32.9 H INR 3.16 H APTT 51.1 H D-Dimer Heparin Anti-Xa Level ABG pH 7.508 H POC ABG pCO2 22.8 L POC ABG pO2 66.8 L ABG Oxyhemoglobin 92.7 L ABG Sodium 127.4 L ABG Potassium 4.7 H ABG Glucose 121 H Carboxyhemoglobin 0.4 L Sodium Chloride Carbon Dioxide BUN Creatinine Glucose POC Glucose Calcium Phosphorus Ferritin Total Bilirubin AST ALT Alkaline Phosphatase Lactate Dehydrogenase Total Creatine Kinase Troponin T C-Reactive Protein NT-Pro-B Natriuret Pep Total Protein Albumin Cholesterol LDL Cholesterol Direct HDL Cholesterol PTH Intact Arterial Blood Glucose 121 H Urine WBC (Auto) Urine Creatinine Lymph Enumerat CD4/CD8 Absolute CD3 Count Absolute CD4 Count % CD8 Cells Absolute CD8 Count Absolute CD19 Count Coronavirus (PCR) HIV-1 RNA PCR copies/ml HIV-1 RNA (PCR) log 09/17/20 09/17/20 09/17/20 10:47 10:47 13:54 WBC RBC Hgb Hct MCV MCH MCHC Plt Count Lymph % (Auto) [place] % (Auto) Lymph # (Auto) [place] # (Auto) Seg Neutrophils % Seg Neuts % (Manual) Lymphocytes % (Manual) Monocytes % (Manual) Nucleated RBC % Seg Neutrophils # Seg Neutrophils # Man Abs Lymphs (Manual) Lymphocytes # (Manual) PT INR APTT D-Dimer Heparin Anti-Xa Level ABG pH POC ABG pCO2 POC ABG pO2 ABG Oxyhemoglobin ABG Sodium ABG Potassium ABG Glucose Carboxyhemoglobin Sodium 125 L Chloride 95.3 L Carbon Dioxide 17 L BUN 64 H Creatinine 4.6 H D Glucose 104 H POC Glucose Calcium Phosphorus Ferritin Total Bilirubin AST 69 H ALT Alkaline Phosphatase Lactate Dehydrogenase Total Creatine Kinase Troponin T 0.061 H D 0.058 H C-Reactive Protein NT-Pro-B Natriuret Pep 91195 H Total Protein Albumin 1.9 L Cholesterol 48 L LDL Cholesterol Direct 4 L HDL Cholesterol 9 L PTH Intact Arterial Blood Glucose Urine WBC (Auto) Urine Creatinine Lymph Enumerat CD4/CD8 Absolute CD3 Count Absolute CD4 Count % CD8 Cells Absolute CD8 Count Absolute CD19 Count Coronavirus (PCR) HIV-1 RNA PCR copies/ml HIV-1 RNA (PCR) log 09/17/20 09/17/20 09/17/20 16:36 17:35 17:35 WBC RBC 3.25 L Hgb 10.7 L Hct 31.1 L MCV 96 H MCH 33 H MCHC Plt Count Lymph % (Auto) [place] % (Auto) Lymph # (Auto) [place] # (Auto) Seg Neutrophils % Seg Neuts % (Manual) Lymphocytes % (Manual) Monocytes % (Manual) Nucleated RBC % Seg Neutrophils # Seg Neutrophils # Man Abs Lymphs (Manual) Lymphocytes # (Manual) PT 31.9 H INR 3.04 H APTT 50.9 H D-Dimer Heparin Anti-Xa Level ABG pH POC ABG pCO2 POC ABG pO2 ABG Oxyhemoglobin ABG Sodium ABG Potassium ABG Glucose Carboxyhemoglobin Sodium Chloride Carbon Dioxide BUN Creatinine Glucose POC Glucose Calcium Phosphorus Ferritin Total Bilirubin AST ALT Alkaline Phosphatase Lactate Dehydrogenase Total Creatine Kinase Troponin T 0.057 H C-Reactive Protein NT-Pro-B Natriuret Pep Total Protein Albumin Cholesterol LDL Cholesterol Direct HDL Cholesterol PTH Intact Arterial Blood Glucose Urine WBC (Auto) Urine Creatinine Lymph Enumerat CD4/CD8 Absolute CD3 Count Absolute CD4 Count % CD8 Cells Absolute CD8 Count Absolute CD19 Count Coronavirus (PCR) HIV-1 RNA PCR copies/ml HIV-1 RNA (PCR) log 09/17/20 09/18/20 09/18/20 17:35 03:19 03:19 WBC RBC 3.32 L Hgb 10.9 L Hct 32.0 L MCV 96 H MCH 33 H MCHC Plt Count 138 L Lymph % (Auto) [place] % (Auto) Lymph # (Auto) [place] # (Auto) Seg Neutrophils % Seg Neuts % (Manual) 95.0 H Lymphocytes % (Manual) 3.0 L Monocytes % (Manual) Nucleated RBC % Seg Neutrophils # Seg Neutrophils # Man 8.1 H Abs Lymphs (Manual) Lymphocytes # (Manual) 0.3 L PT INR APTT D-Dimer Heparin Anti-Xa Level ABG pH POC ABG pCO2 POC ABG pO2 ABG Oxyhemoglobin ABG Sodium ABG Potassium ABG Glucose Carboxyhemoglobin Sodium Chloride Carbon Dioxide 16 L BUN 70 H Creatinine 4.6 H 4.7 H Glucose 104 H POC Glucose Calcium 8.2 L Phosphorus Ferritin Total Bilirubin 1.60 H AST 128 H ALT 67 H Alkaline Phosphatase Lactate Dehydrogenase Total Creatine Kinase Troponin T C-Reactive Protein NT-Pro-B Natriuret Pep Total Protein 5.2 L D Albumin 2.5 L Cholesterol LDL Cholesterol Direct HDL Cholesterol PTH Intact Arterial Blood Glucose Urine WBC (Auto) Urine Creatinine Lymph Enumerat CD4/CD8 Absolute CD3 Count Absolute CD4 Count % CD8 Cells Absolute CD8 Count Absolute CD19 Count Coronavirus (PCR) HIV-1 RNA PCR copies/ml HIV-1 RNA (PCR) log 09/18/20 09/18/20 09/18/20 09:39 12:00 12:00 WBC RBC Hgb Hct MCV MCH MCHC Plt Count Lymph % (Auto) [place] % (Auto) Lymph # (Auto) [place] # (Auto) Seg Neutrophils % Seg Neuts % (Manual) Lymphocytes % (Manual) Monocytes % (Manual) Nucleated RBC % Seg Neutrophils # Seg Neutrophils # Man Abs Lymphs (Manual) Lymphocytes # (Manual) PT INR APTT D-Dimer Heparin Anti-Xa Level ABG pH POC ABG pCO2 POC ABG pO2 ABG Oxyhemoglobin ABG Sodium ABG Potassium ABG Glucose Carboxyhemoglobin Sodium Chloride Carbon Dioxide BUN Creatinine Glucose POC Glucose Calcium Phosphorus Ferritin Total Bilirubin AST ALT Alkaline Phosphatase Lactate Dehydrogenase Total Creatine Kinase Troponin T C-Reactive Protein NT-Pro-B Natriuret Pep Total Protein Albumin Cholesterol LDL Cholesterol Direct HDL Cholesterol PTH Intact Arterial Blood Glucose Urine WBC (Auto) 71.0 H Urine Creatinine 61.0 H Lymph Enumerat CD4/CD8 Absolute CD3 Count Absolute CD4 Count % CD8 Cells Absolute CD8 Count Absolute CD19 Count Coronavirus (PCR) Positive A HIV-1 RNA PCR copies/ml HIV-1 RNA (PCR) log 09/18/20 09/18/20 09/18/20 15:07 15:07 18:33 WBC RBC Hgb 10.7 L Hct 31.3 L MCV MCH MCHC Plt Count Lymph % (Auto) [place] % (Auto) Lymph # (Auto) [place] # (Auto) Seg Neutrophils % Seg Neuts % (Manual) Lymphocytes % (Manual) Monocytes % (Manual) Nucleated RBC % Seg Neutrophils # Seg Neutrophils # Man Abs Lymphs (Manual) Lymphocytes # (Manual) PT 20.3 H INR 1.73 H APTT 40.8 H D-Dimer Heparin Anti-Xa Level 1.09 H ABG pH POC ABG pCO2 POC ABG pO2 ABG Oxyhemoglobin ABG Sodium ABG Potassium ABG Glucose Carboxyhemoglobin Sodium Chloride Carbon Dioxide BUN Creatinine Glucose POC Glucose Calcium Phosphorus Ferritin Total Bilirubin AST ALT Alkaline Phosphatase Lactate Dehydrogenase Total Creatine Kinase Troponin T C-Reactive Protein NT-Pro-B Natriuret Pep Total Protein Albumin Cholesterol LDL Cholesterol Direct HDL Cholesterol PTH Intact Arterial Blood Glucose Urine WBC (Auto) Urine Creatinine Lymph Enumerat CD4/CD8 Absolute CD3 Count Absolute CD4 Count % CD8 Cells Absolute CD8 Count Absolute CD19 Count Coronavirus (PCR) HIV-1 RNA PCR copies/ml HIV-1 RNA (PCR) log 09/19/20 09/19/20 09/19/20 03:30 03:30 03:30 WBC RBC 3.29 L Hgb 10.9 L Hct 30.9 L MCV MCH 33 H MCHC 35 H Plt Count Lymph % (Auto) [place] % (Auto) Lymph # (Auto) [place] # (Auto) Seg Neutrophils % Seg Neuts % (Manual) Lymphocytes % (Manual) Monocytes % (Manual) Nucleated RBC % Seg Neutrophils # Seg Neutrophils # Man Abs Lymphs (Manual) Lymphocytes # (Manual) PT INR APTT D-Dimer Heparin Anti-Xa Level ABG pH POC ABG pCO2 POC ABG pO2 ABG Oxyhemoglobin ABG Sodium ABG Potassium ABG Glucose Carboxyhemoglobin Sodium 133 L Chloride Carbon Dioxide 17 L BUN 94 H Creatinine 5.0 H Glucose 120 H POC Glucose Calcium Phosphorus 6.30 H Ferritin Total Bilirubin 2.40 H AST 163 H ALT 109 H Alkaline Phosphatase 160 H Lactate Dehydrogenase Total Creatine Kinase 20 L Troponin T C-Reactive Protein NT-Pro-B Natriuret Pep Total Protein 6.2 L Albumin 2.0 L Cholesterol LDL Cholesterol Direct HDL Cholesterol PTH Intact 161.4 H Arterial Blood Glucose Urine WBC (Auto) Urine Creatinine Lymph Enumerat CD4/CD8 Absolute CD3 Count Absolute CD4 Count % CD8 Cells Absolute CD8 Count Absolute CD19 Count Coronavirus (PCR) HIV-1 RNA PCR copies/ml HIV-1 RNA (PCR) log 09/19/20 09/19/20 09/19/20 06:35 13:35 13:35 WBC RBC Hgb Hct MCV MCH MCHC Plt Count Lymph % (Auto) [place] % (Auto) Lymph # (Auto) [place] # (Auto) Seg Neutrophils % Seg Neuts % (Manual) Lymphocytes % (Manual) Monocytes % (Manual) Nucleated RBC % Seg Neutrophils # Seg Neutrophils # Man Abs Lymphs (Manual) 223 L Lymphocytes # (Manual) PT INR APTT D-Dimer Heparin Anti-Xa Level ABG pH POC ABG pCO2 POC ABG pO2 ABG Oxyhemoglobin ABG Sodium ABG Potassium ABG Glucose Carboxyhemoglobin Sodium Chloride Carbon Dioxide BUN Creatinine Glucose POC Glucose 123 H Calcium Phosphorus Ferritin Total Bilirubin AST ALT Alkaline Phosphatase Lactate Dehydrogenase Total Creatine Kinase Troponin T C-Reactive Protein NT-Pro-B Natriuret Pep Total Protein Albumin Cholesterol LDL Cholesterol Direct HDL Cholesterol PTH Intact Arterial Blood Glucose Urine WBC (Auto) Urine Creatinine Lymph Enumerat CD4/CD8 0.70 L Absolute CD3 Count 175 L Absolute CD4 Count 70 L % CD8 Cells 45 H Absolute CD8 Count 101 L Absolute CD19 Count 26 L Coronavirus (PCR) HIV-1 RNA PCR copies/ml 67 H HIV-1 RNA (PCR) log 1.83 H 09/19/20 09/20/20 09/20/20 23:37 04:00 04:00 WBC RBC 3.43 L Hgb 11.1 L Hct 32.2 L MCV MCH MCHC Plt Count 131 L Lymph % (Auto) [place] % (Auto) Lymph # (Auto) [place] # (Auto) Seg Neutrophils % Seg Neuts % (Manual) 88.0 H Lymphocytes % (Manual) 3.0 L Monocytes % (Manual) 9.0 H Nucleated RBC % Seg Neutrophils # Seg Neutrophils # Man 8.2 H Abs Lymphs (Manual) Lymphocytes # (Manual) 0.3 L PT INR APTT D-Dimer Heparin Anti-Xa Level 0.10 L ABG pH POC ABG pCO2 POC ABG pO2 ABG Oxyhemoglobin ABG Sodium ABG Potassium ABG Glucose Carboxyhemoglobin Sodium Chloride Carbon Dioxide BUN Creatinine Glucose POC Glucose 135 H Calcium Phosphorus Ferritin Total Bilirubin AST ALT Alkaline Phosphatase Lactate Dehydrogenase Total Creatine Kinase Troponin T C-Reactive Protein NT-Pro-B Natriuret Pep Total Protein Albumin Cholesterol LDL Cholesterol Direct HDL Cholesterol PTH Intact Arterial Blood Glucose Urine WBC (Auto) Urine Creatinine Lymph Enumerat CD4/CD8 Absolute CD3 Count Absolute CD4 Count % CD8 Cells Absolute CD8 Count Absolute CD19 Count Coronavirus (PCR) HIV-1 RNA PCR copies/ml HIV-1 RNA (PCR) log 09/20/20 09/20/20 09/20/20 04:00 05:37 11:20 WBC RBC Hgb Hct MCV MCH MCHC Plt Count Lymph % (Auto) [place] % (Auto) Lymph # (Auto) [place] # (Auto) Seg Neutrophils % Seg Neuts % (Manual) Lymphocytes % (Manual) Monocytes % (Manual) Nucleated RBC % Seg Neutrophils # Seg Neutrophils # Man Abs Lymphs (Manual) Lymphocytes # (Manual) PT INR APTT D-Dimer Heparin Anti-Xa Level ABG pH POC ABG pCO2 POC ABG pO2 ABG Oxyhemoglobin ABG Sodium ABG Potassium ABG Glucose Carboxyhemoglobin Sodium Chloride Carbon Dioxide 16 L BUN 119 H Creatinine 6.2 H Glucose 136 H POC Glucose 137 H 108 H Calcium Phosphorus Ferritin Total Bilirubin AST ALT Alkaline Phosphatase Lactate Dehydrogenase Total Creatine Kinase Troponin T C-Reactive Protein NT-Pro-B Natriuret Pep Total Protein Albumin Cholesterol LDL Cholesterol Direct HDL Cholesterol PTH Intact Arterial Blood Glucose Urine WBC (Auto) Urine Creatinine Lymph Enumerat CD4/CD8 Absolute CD3 Count Absolute CD4 Count % CD8 Cells Absolute CD8 Count Absolute CD19 Count Coronavirus (PCR) HIV-1 RNA PCR copies/ml HIV-1 RNA (PCR) log 09/20/20 09/20/20 09/20/20 17:10 17:10 17:10 WBC RBC Hgb Hct MCV MCH MCHC Plt Count Lymph % (Auto) [place] % (Auto) Lymph # (Auto) [place] # (Auto) Seg Neutrophils % Seg Neuts % (Manual) Lymphocytes % (Manual) Monocytes % (Manual) Nucleated RBC % Seg Neutrophils # Seg Neutrophils # Man Abs Lymphs (Manual) Lymphocytes # (Manual) PT INR APTT D-Dimer 4271.58 H Heparin Anti-Xa Level ABG pH POC ABG pCO2 POC ABG pO2 ABG Oxyhemoglobin ABG Sodium ABG Potassium ABG Glucose Carboxyhemoglobin Sodium Chloride Carbon Dioxide BUN Creatinine 6.0 H Glucose POC Glucose Calcium Phosphorus Ferritin 696.6 H Total Bilirubin AST ALT Alkaline Phosphatase Lactate Dehydrogenase Total Creatine Kinase Troponin T C-Reactive Protein NT-Pro-B Natriuret Pep Total Protein Albumin Cholesterol LDL Cholesterol Direct HDL Cholesterol PTH Intact Arterial Blood Glucose Urine WBC (Auto) Urine Creatinine Lymph Enumerat CD4/CD8 Absolute CD3 Count Absolute CD4 Count % CD8 Cells Absolute CD8 Count Absolute CD19 Count Coronavirus (PCR) HIV-1 RNA PCR copies/ml HIV-1 RNA (PCR) log 09/20/20 09/20/20 09/20/20 17:10 18:21 23:14 WBC RBC Hgb Hct MCV MCH MCHC Plt Count Lymph % (Auto) [place] % (Auto) Lymph # (Auto) [place] # (Auto) Seg Neutrophils % Seg Neuts % (Manual) Lymphocytes % (Manual) Monocytes % (Manual) Nucleated RBC % Seg Neutrophils # Seg Neutrophils # Man Abs Lymphs (Manual) Lymphocytes # (Manual) PT INR APTT D-Dimer Heparin Anti-Xa Level ABG pH POC ABG pCO2 POC ABG pO2 ABG Oxyhemoglobin ABG Sodium ABG Potassium ABG Glucose Carboxyhemoglobin Sodium Chloride Carbon Dioxide BUN Creatinine Glucose POC Glucose 129 H 170 H Calcium Phosphorus Ferritin Total Bilirubin AST ALT Alkaline Phosphatase Lactate Dehydrogenase 209 H Total Creatine Kinase Troponin T C-Reactive Protein 10.60 H NT-Pro-B Natriuret Pep Total Protein Albumin Cholesterol LDL Cholesterol Direct HDL Cholesterol PTH Intact Arterial Blood Glucose Urine WBC (Auto) Urine Creatinine Lymph Enumerat CD4/CD8 Absolute CD3 Count Absolute CD4 Count % CD8 Cells Absolute CD8 Count Absolute CD19 Count Coronavirus (PCR) HIV-1 RNA PCR copies/ml HIV-1 RNA (PCR) log 09/21/20 09/21/20 09/21/20 05:35 17:09 23:18 WBC RBC Hgb Hct MCV MCH MCHC Plt Count Lymph % (Auto) [place] % (Auto) Lymph # (Auto) [place] # (Auto) Seg Neutrophils % Seg Neuts % (Manual) Lymphocytes % (Manual) Monocytes % (Manual) Nucleated RBC % Seg Neutrophils # Seg Neutrophils # Man Abs Lymphs (Manual) Lymphocytes # (Manual) PT INR APTT D-Dimer Heparin Anti-Xa Level ABG pH POC ABG pCO2 POC ABG pO2 ABG Oxyhemoglobin ABG Sodium ABG Potassium ABG Glucose Carboxyhemoglobin Sodium Chloride Carbon Dioxide BUN Creatinine Glucose POC Glucose 170 H 140 H 139 H Calcium Phosphorus Ferritin Total Bilirubin AST ALT Alkaline Phosphatase Lactate Dehydrogenase Total Creatine Kinase Troponin T C-Reactive Protein NT-Pro-B Natriuret Pep Total Protein Albumin Cholesterol LDL Cholesterol Direct HDL Cholesterol PTH Intact Arterial Blood Glucose Urine WBC (Auto) Urine Creatinine Lymph Enumerat CD4/CD8 Absolute CD3 Count Absolute CD4 Count % CD8 Cells Absolute CD8 Count Absolute CD19 Count Coronavirus (PCR) HIV-1 RNA PCR copies/ml HIV-1 RNA (PCR) log 09/21/20 09/21/20 09/21/20 Unknown Unknown Unknown WBC RBC 3.56 L Hgb 11.3 L Hct 33.2 L MCV MCH MCHC Plt Count 125 L Lymph % (Auto) [place] % (Auto) Lymph # (Auto) [place] # (Auto) Seg Neutrophils % Seg Neuts % (Manual) 90.0 H Lymphocytes % (Manual) 8.0 L Monocytes % (Manual) Nucleated RBC % 1.0 H Seg Neutrophils # Seg Neutrophils # Man 9.4 H Abs Lymphs (Manual) Lymphocytes # (Manual) 0.8 L PT 16.8 H INR 1.36 H APTT D-Dimer Heparin Anti-Xa Level ABG pH POC ABG pCO2 POC ABG pO2 ABG Oxyhemoglobin ABG Sodium ABG Potassium ABG Glucose Carboxyhemoglobin Sodium Chloride Carbon Dioxide BUN 83 H Creatinine 4.3 H Glucose 163 H POC Glucose Calcium Phosphorus Ferritin Total Bilirubin 2.40 H AST ALT 57 H Alkaline Phosphatase < 5 L Lactate Dehydrogenase Total Creatine Kinase Troponin T C-Reactive Protein NT-Pro-B Natriuret Pep Total Protein Albumin 1.9 L Cholesterol LDL Cholesterol Direct HDL Cholesterol PTH Intact Arterial Blood Glucose Urine WBC (Auto) Urine Creatinine Lymph Enumerat CD4/CD8 Absolute CD3 Count Absolute CD4 Count % CD8 Cells Absolute CD8 Count Absolute CD19 Count Coronavirus (PCR) HIV-1 RNA PCR copies/ml HIV-1 RNA (PCR) log 09/22/20 09/22/20 09/22/20 05:38 05:38 05:38 WBC 15.8 H RBC 3.36 L Hgb 10.8 L Hct 31.0 L MCV MCH MCHC 35 H Plt Count 68 L Lymph % (Auto) 3.1 L [place] % (Auto) 10.7 H Lymph # (Auto) 0.5 L [place] # (Auto) 1.7 H Seg Neutrophils % 85.9 H Seg Neuts % (Manual) Lymphocytes % (Manual) Monocytes % (Manual) Nucleated RBC % Seg Neutrophils # 13.6 H Seg Neutrophils # Man Abs Lymphs (Manual) Lymphocytes # (Manual) PT INR APTT D-Dimer 3281.49 H Heparin Anti-Xa Level ABG pH POC ABG pCO2 POC ABG pO2 ABG Oxyhemoglobin ABG Sodium ABG Potassium ABG Glucose Carboxyhemoglobin Sodium Chloride Carbon Dioxide BUN 61 H Creatinine 3.1 H Glucose 129 H POC Glucose Calcium Phosphorus Ferritin Total Bilirubin AST ALT Alkaline Phosphatase Lactate Dehydrogenase 277 H Total Creatine Kinase Troponin T C-Reactive Protein 6.60 H NT-Pro-B Natriuret Pep Total Protein Albumin Cholesterol LDL Cholesterol Direct HDL Cholesterol PTH Intact Arterial Blood Glucose Urine WBC (Auto) Urine Creatinine Lymph Enumerat CD4/CD8 Absolute CD3 Count Absolute CD4 Count % CD8 Cells Absolute CD8 Count Absolute CD19 Count Coronavirus (PCR) HIV-1 RNA PCR copies/ml HIV-1 RNA (PCR) log 09/22/20 09/22/20 09/22/20 05:38 05:44 11:26 WBC RBC Hgb Hct MCV MCH MCHC Plt Count Lymph % (Auto) [place] % (Auto) Lymph # (Auto) [place] # (Auto) Seg Neutrophils % Seg Neuts % (Manual) Lymphocytes % (Manual) Monocytes % (Manual) Nucleated RBC % Seg Neutrophils # Seg Neutrophils # Man Abs Lymphs (Manual) Lymphocytes # (Manual) PT INR APTT D-Dimer Heparin Anti-Xa Level ABG pH POC ABG pCO2 POC ABG pO2 ABG Oxyhemoglobin ABG Sodium ABG Potassium ABG Glucose Carboxyhemoglobin Sodium Chloride Carbon Dioxide BUN Creatinine Glucose POC Glucose 112 H 131 H Calcium Phosphorus Ferritin 927.8 H Total Bilirubin AST ALT Alkaline Phosphatase Lactate Dehydrogenase Total Creatine Kinase Troponin T C-Reactive Protein NT-Pro-B Natriuret Pep Total Protein Albumin Cholesterol LDL Cholesterol Direct HDL Cholesterol PTH Intact Arterial Blood Glucose Urine WBC (Auto) Urine Creatinine Lymph Enumerat CD4/CD8 Absolute CD3 Count Absolute CD4 Count % CD8 Cells Absolute CD8 Count Absolute CD19 Count Coronavirus (PCR) HIV-1 RNA PCR copies/ml HIV-1 RNA (PCR) log 09/22/20 09/22/20 09/22/20 15:12 15:12 16:53 WBC RBC Hgb Hct MCV MCH MCHC Plt Count Lymph % (Auto) [place] % (Auto) Lymph # (Auto) [place] # (Auto) Seg Neutrophils % Seg Neuts % (Manual) Lymphocytes % (Manual) Monocytes % (Manual) Nucleated RBC % Seg Neutrophils # Seg Neutrophils # Man Abs Lymphs (Manual) Lymphocytes # (Manual) PT 17.3 H INR 1.42 H APTT D-Dimer Heparin Anti-Xa Level ABG pH POC ABG pCO2 POC ABG pO2 ABG Oxyhemoglobin ABG Sodium ABG Potassium ABG Glucose Carboxyhemoglobin Sodium Chloride Carbon Dioxide BUN Creatinine 3.0 H Glucose POC Glucose 138 H Calcium Phosphorus Ferritin Total Bilirubin AST ALT Alkaline Phosphatase Lactate Dehydrogenase Total Creatine Kinase Troponin T C-Reactive Protein NT-Pro-B Natriuret Pep Total Protein Albumin Cholesterol LDL Cholesterol Direct HDL Cholesterol PTH Intact Arterial Blood Glucose Urine WBC (Auto) Urine Creatinine Lymph Enumerat CD4/CD8 Absolute CD3 Count Absolute CD4 Count % CD8 Cells Absolute CD8 Count Absolute CD19 Count Coronavirus (PCR) HIV-1 RNA PCR copies/ml HIV-1 RNA (PCR) log 09/22/20 09/23/20 09/23/20 23:55 04:36 04:36 WBC 14.2 H RBC 3.05 L Hgb 9.8 L Hct 28.4 L MCV MCH MCHC Plt Count 39 L Lymph % (Auto) [place] % (Auto) Lymph # (Auto) [place] # (Auto) Seg Neutrophils % Seg Neuts % (Manual) 91.0 H Lymphocytes % (Manual) 2.0 L Monocytes % (Manual) Nucleated RBC % Seg Neutrophils # Seg Neutrophils # Man 12.9 H Abs Lymphs (Manual) Lymphocytes # (Manual) 0.3 L PT INR APTT D-Dimer Heparin Anti-Xa Level ABG pH POC ABG pCO2 POC ABG pO2 ABG Oxyhemoglobin ABG Sodium ABG Potassium ABG Glucose Carboxyhemoglobin Sodium Chloride Carbon Dioxide BUN 76 H Creatinine 3.1 H Glucose 157 H POC Glucose 171 H Calcium Phosphorus Ferritin Total Bilirubin AST ALT Alkaline Phosphatase Lactate Dehydrogenase Total Creatine Kinase Troponin T C-Reactive Protein NT-Pro-B Natriuret Pep Total Protein Albumin Cholesterol LDL Cholesterol Direct HDL Cholesterol PTH Intact Arterial Blood Glucose Urine WBC (Auto) Urine Creatinine Lymph Enumerat CD4/CD8 Absolute CD3 Count Absolute CD4 Count % CD8 Cells Absolute CD8 Count Absolute CD19 Count Coronavirus (PCR) HIV-1 RNA PCR copies/ml HIV-1 RNA (PCR) log 09/23/20 09/23/20 09/23/20 05:41 11:38 17:09 WBC RBC Hgb Hct MCV MCH MCHC Plt Count Lymph % (Auto) [place] % (Auto) Lymph # (Auto) [place] # (Auto) Seg Neutrophils % Seg Neuts % (Manual) Lymphocytes % (Manual) Monocytes % (Manual) Nucleated RBC % Seg Neutrophils # Seg Neutrophils # Man Abs Lymphs (Manual) Lymphocytes # (Manual) PT INR APTT D-Dimer Heparin Anti-Xa Level ABG pH POC ABG pCO2 POC ABG pO2 ABG Oxyhemoglobin ABG Sodium ABG Potassium ABG Glucose Carboxyhemoglobin Sodium Chloride Carbon Dioxide BUN Creatinine Glucose POC Glucose 136 H 141 H 128 H Calcium Phosphorus Ferritin Total Bilirubin AST ALT Alkaline Phosphatase Lactate Dehydrogenase Total Creatine Kinase Troponin T C-Reactive Protein NT-Pro-B Natriuret Pep Total Protein Albumin Cholesterol LDL Cholesterol Direct HDL Cholesterol PTH Intact Arterial Blood Glucose Urine WBC (Auto) Urine Creatinine Lymph Enumerat CD4/CD8 Absolute CD3 Count Absolute CD4 Count % CD8 Cells Absolute CD8 Count Absolute CD19 Count Coronavirus (PCR) HIV-1 RNA PCR copies/ml HIV-1 RNA (PCR) log 09/23/20 09/24/20 09/24/20 23:51 05:00 05:00 WBC 24.2 H RBC 3.23 L Hgb 10.0 L Hct 29.7 L MCV MCH MCHC Plt Count 74 L Lymph % (Auto) [place] % (Auto) Lymph # (Auto) [place] # (Auto) Seg Neutrophils % Seg Neuts % (Manual) Lymphocytes % (Manual) Monocytes % (Manual) Nucleated RBC % Seg Neutrophils # Seg Neutrophils # Man Abs Lymphs (Manual) Lymphocytes # (Manual) PT INR APTT D-Dimer 1772.86 H Heparin Anti-Xa Level ABG pH POC ABG pCO2 POC ABG pO2 ABG Oxyhemoglobin ABG Sodium ABG Potassium ABG Glucose Carboxyhemoglobin Sodium Chloride Carbon Dioxide BUN Creatinine Glucose POC Glucose 128 H Calcium Phosphorus Ferritin Total Bilirubin AST ALT Alkaline Phosphatase Lactate Dehydrogenase Total Creatine Kinase Troponin T C-Reactive Protein NT-Pro-B Natriuret Pep Total Protein Albumin Cholesterol LDL Cholesterol Direct HDL Cholesterol PTH Intact Arterial Blood Glucose Urine WBC (Auto) Urine Creatinine Lymph Enumerat CD4/CD8 Absolute CD3 Count Absolute CD4 Count % CD8 Cells Absolute CD8 Count Absolute CD19 Count Coronavirus (PCR) HIV-1 RNA PCR copies/ml HIV-1 RNA (PCR) log 09/24/20 09/24/20 09/24/20 05:00 05:00 05:12 WBC RBC Hgb Hct MCV MCH MCHC Plt Count Lymph % (Auto) [place] % (Auto) Lymph # (Auto) [place] # (Auto) Seg Neutrophils % Seg Neuts % (Manual) Lymphocytes % (Manual) Monocytes % (Manual) Nucleated RBC % Seg Neutrophils # Seg Neutrophils # Man Abs Lymphs (Manual) Lymphocytes # (Manual) PT INR APTT D-Dimer Heparin Anti-Xa Level ABG pH POC ABG pCO2 POC ABG pO2 ABG Oxyhemoglobin ABG Sodium ABG Potassium ABG Glucose Carboxyhemoglobin Sodium Chloride 107.1 H Carbon Dioxide BUN 90 H Creatinine 3.1 H Glucose 118 H POC Glucose 114 H Calcium Phosphorus Ferritin 1190.0 H Total Bilirubin AST ALT Alkaline Phosphatase Lactate Dehydrogenase 276 H Total Creatine Kinase Troponin T C-Reactive Protein 4.20 H NT-Pro-B Natriuret Pep Total Protein Albumin Cholesterol LDL Cholesterol Direct HDL Cholesterol PTH Intact Arterial Blood Glucose Urine WBC (Auto) Urine Creatinine Lymph Enumerat CD4/CD8 Absolute CD3 Count Absolute CD4 Count % CD8 Cells Absolute CD8 Count Absolute CD19 Count Coronavirus (PCR) HIV-1 RNA PCR copies/ml HIV-1 RNA (PCR) log 09/24/20 09/24/20 09/24/20 11:25 12:09 12:13 WBC 20.8 H RBC 3.04 L Hgb 9.5 L Hct 28.0 L MCV MCH MCHC Plt Count 78 L Lymph % (Auto) [place] % (Auto) Lymph # (Auto) [place] # (Auto) Seg Neutrophils % Seg Neuts % (Manual) Lymphocytes % (Manual) Monocytes % (Manual) Nucleated RBC % Seg Neutrophils # Seg Neutrophils # Man Abs Lymphs (Manual) Lymphocytes # (Manual) PT INR APTT D-Dimer Heparin Anti-Xa Level ABG pH POC ABG pCO2 POC ABG pO2 ABG Oxyhemoglobin ABG Sodium ABG Potassium ABG Glucose Carboxyhemoglobin Sodium Chloride Carbon Dioxide BUN Creatinine 3.1 H Glucose POC Glucose 110 H Calcium Phosphorus Ferritin Total Bilirubin AST ALT Alkaline Phosphatase Lactate Dehydrogenase Total Creatine Kinase Troponin T C-Reactive Protein NT-Pro-B Natriuret Pep Total Protein Albumin Cholesterol LDL Cholesterol Direct HDL Cholesterol PTH Intact Arterial Blood Glucose Urine WBC (Auto) Urine Creatinine Lymph Enumerat CD4/CD8 Absolute CD3 Count Absolute CD4 Count % CD8 Cells Absolute CD8 Count Absolute CD19 Count Coronavirus (PCR) HIV-1 RNA PCR copies/ml HIV-1 RNA (PCR) log 09/24/20 09/24/20 09/24/20 12:13 17:41 23:34 WBC RBC Hgb Hct MCV MCH MCHC Plt Count Lymph % (Auto) [place] % (Auto) Lymph # (Auto) [place] # (Auto) Seg Neutrophils % Seg Neuts % (Manual) Lymphocytes % (Manual) Monocytes % (Manual) Nucleated RBC % Seg Neutrophils # Seg Neutrophils # Man Abs Lymphs (Manual) Lymphocytes # (Manual) PT 15.7 H INR 1.27 H APTT D-Dimer Heparin Anti-Xa Level ABG pH POC ABG pCO2 POC ABG pO2 ABG Oxyhemoglobin ABG Sodium ABG Potassium ABG Glucose Carboxyhemoglobin Sodium Chloride Carbon Dioxide BUN Creatinine Glucose POC Glucose 133 H 113 H Calcium Phosphorus Ferritin Total Bilirubin AST ALT Alkaline Phosphatase Lactate Dehydrogenase Total Creatine Kinase Troponin T C-Reactive Protein NT-Pro-B Natriuret Pep Total Protein Albumin Cholesterol LDL Cholesterol Direct HDL Cholesterol PTH Intact Arterial Blood Glucose Urine WBC (Auto) Urine Creatinine Lymph Enumerat CD4/CD8 Absolute CD3 Count Absolute CD4 Count % CD8 Cells Absolute CD8 Count Absolute CD19 Count Coronavirus (PCR) HIV-1 RNA PCR copies/ml HIV-1 RNA (PCR) log 09/25/20 09/25/20 09/25/20 06:40 06:40 10:45 WBC 20.7 H RBC 3.33 L Hgb 10.2 L Hct 31.3 L MCV MCH MCHC Plt Count 139 L Lymph % (Auto) [place] % (Auto) Lymph # (Auto) [place] # (Auto) Seg Neutrophils % Seg Neuts % (Manual) Lymphocytes % (Manual) Monocytes % (Manual) Nucleated RBC % Seg Neutrophils # Seg Neutrophils # Man Abs Lymphs (Manual) Lymphocytes # (Manual) PT INR APTT D-Dimer Heparin Anti-Xa Level ABG pH POC ABG pCO2 POC ABG pO2 ABG Oxyhemoglobin ABG Sodium ABG Potassium ABG Glucose Carboxyhemoglobin Sodium Chloride 109.0 H Carbon Dioxide BUN 98 H Creatinine 3.0 H 3.0 H Glucose 111 H POC Glucose Calcium Phosphorus Ferritin Total Bilirubin AST ALT Alkaline Phosphatase Lactate Dehydrogenase Total Creatine Kinase Troponin T C-Reactive Protein NT-Pro-B Natriuret Pep Total Protein Albumin Cholesterol LDL Cholesterol Direct HDL Cholesterol PTH Intact Arterial Blood Glucose Urine WBC (Auto) Urine Creatinine Lymph Enumerat CD4/CD8 Absolute CD3 Count Absolute CD4 Count % CD8 Cells Absolute CD8 Count Absolute CD19 Count Coronavirus (PCR) HIV-1 RNA PCR copies/ml HIV-1 RNA (PCR) log 09/25/20 12:45 WBC RBC Hgb Hct MCV MCH MCHC Plt Count Lymph % (Auto) [place] % (Auto) Lymph # (Auto) [place] # (Auto) Seg Neutrophils % Seg Neuts % (Manual) Lymphocytes % (Manual) Monocytes % (Manual) Nucleated RBC % Seg Neutrophils # Seg Neutrophils # Man Abs Lymphs (Manual) Lymphocytes # (Manual) PT INR APTT D-Dimer Heparin Anti-Xa Level ABG pH POC ABG pCO2 POC ABG pO2 ABG Oxyhemoglobin ABG Sodium ABG Potassium ABG Glucose Carboxyhemoglobin Sodium Chloride Carbon Dioxide BUN Creatinine Glucose POC Glucose 108 H Calcium Phosphorus Ferritin Total Bilirubin AST ALT Alkaline Phosphatase Lactate Dehydrogenase Total Creatine Kinase Troponin T C-Reactive Protein NT-Pro-B Natriuret Pep Total Protein Albumin Cholesterol LDL Cholesterol Direct HDL Cholesterol PTH Intact Arterial Blood Glucose Urine WBC (Auto) Urine Creatinine Lymph Enumerat CD4/CD8 Absolute CD3 Count Absolute CD4 Count % CD8 Cells Absolute CD8 Count Absolute CD19 Count Coronavirus (PCR) HIV-1 RNA PCR copies/ml HIV-1 RNA (PCR) log Chest x-ray: image reviewed Allied health notes reviewed: RT
--- NOTE | 2020-09-25 22:06 | Progress Note ---
Assessment and Plan Volume optimization via HD. Continue PO Lopressor 25 mg BID as BP permits on Midodrine. Continue PO Amio 200mg BID. Recommend PRN repletion of electrolytes to avoid tachyarrhythmias. Continue anticoagulation with Eliquis 2.5mg BID. Pt seen in conjunction with Dr. Crespo, who agrees with the assessment and plan of care. - Patient Problems (1) AMS (altered mental status) Current Visit: Yes Status: Acute Qualifiers: Altered mental status type: somnolence Qualified Code(s): R40.0 - Somnolence (2) Acute respiratory failure Current Visit: Yes Status: Acute (3) Sepsis Current Visit: Yes Status: Acute Qualifiers: Severe sepsis shock status: with septic shock (4) UTI (urinary tract infection) Current Visit: Yes Status: Acute (5) LOLI (acute kidney injury) Current Visit: Yes Status: Acute (6) Acute HFrEF (heart failure with reduced ejection fraction) Current Visit: Yes Status: Acute (7) Cardiomyopathy Current Visit: Yes Status: Chronic (8) Atrial fibrillation with RVR Current Visit: Yes Status: Acute (9) Anemia Current Visit: Yes Status: Acute (10) Thrombocytopenia Current Visit: Yes Status: Acute (11) Coagulopathy Current Visit: Yes Status: Acute (12) Elevated LFTs Current Visit: Yes Status: Acute (13) H/O: HTN (hypertension) Current Visit: Yes Status: Chronic (14) HIV (human immunodeficiency virus infection) Current Visit: Yes Status: Chronic Subjective Date of service: 09/25/20 Principal diagnosis: Acute Resp Fail, Sepsis, AF with RVR Interval history: On BiPAP at time of exam. Tele reviewed - AF 80-110s, no acute events overnight. Objective Last Vital Signs Temp 98.2 F 09/25/20 20:00 Pulse 91 H 09/25/20 21:00 Resp 13 09/25/20 21:00 BP 105/72 09/25/20 21:00 Pulse Ox 100 09/25/20 21:00 - Physical Examination General: No Apparent Distress HEENT: Positive: Normocephaly, Mucus Membranes Moist Neck: Positive: neck supple. Negative: JVD/HJR Cardiac: Positive: irregularly irregular, S1/S2 Lungs: Positive: Decreased Breath Sounds Neuro: Positive: Grossly Intact Abdomen: Positive: Soft Skin: Negative: Rash Extremities: Absent: edema - Labs and Meds CBC 09/25/20 Range/Units 10:45 WBC 20.7 H (4.5-11.0) K/mm3 RBC 3.33 L (3.65-5.03) M/mm3 Hgb 10.2 L (11.8-15.2) gm/dl Hct 31.3 L (35.5-45.6) % Plt Count 139 L (140-440) K/mm3 Comprehensive Metabolic Panel 09/25/20 09/25/20 Range/Units 06:40 06:40 Sodium 145 (137-145) mmol/L Potassium 4.0 (3.6-5.0) mmol/L Chloride 109.0 H (98-107) mmol/L Carbon Dioxide 27 (22-30) mmol/L BUN 98 H (9-20) mg/dL Creatinine 3.0 H 3.0 H (0.8-1.3) mg/dL Glucose 111 H (75-100) mg/dL Calcium 9.6 (8.4-10.2) mg/dL - Imaging and Cardiology EKG: report reviewed, image reviewed Echo: report reviewed (09/18/2020 - EF 40-45%, mild concentric LVH, RV sys fxn mildly reduced, no significant valvular abnormality) - Telemetry EKG Rhythm: Atrial Fibrillation - EKG Supraventricular dysrhythmia: atrial fibrillation Myocardial infarction: septal DC (old age or ind, anterior DC (old age or i - Allied health notes Allied health notes reviewed: nursing
[2020-09-25] MEDS: ACETAMINOPHEN 325 MG TAB PO PRN (22:52)
[2020-09-25] MEDS: oxyCODONE 5 MG TAB PO PRN (23:02)
[2020-09-26] MEDS: ASCORBIC ACID 500 MG TAB PO SCH ×3 (00:28→21:29)
[2020-09-26] MEDS: ACETAMINOPHEN 325 MG TAB PO PRN ×2 (06:43→21:29)
[2020-09-26 07:59] LABS: Hematocrit 28.8 % (35.5-45.6); Hemoglobin 9.6 gm/dl (11.8-15.2); Mean Corpuscular HGB Conc 34 % (32-34); Mean Corpuscular Volume 93 fl (84-94); Platelet Count 153 K/mm3 (140-440); Red Cell Distribution Width 13.9 % (13.2-15.2)
[2020-09-26 08:25] LABS: Calcium 9.1 mg/dL (8.4-10.2)
[2020-09-26] MEDS: cefTRIAXone/NS 2 GM/100 ML 2 GM/100 ML BAG IV SCH (09:05)
[2020-09-26] MEDS: DEXAMETHASONE 4 MG TAB PO SCH (09:06)
[2020-09-26] MEDS: FAMOTIDINE 20 MG TAB PO SCH (09:07)
[2020-09-26] MEDS: AMIODARONE 200 MG TAB PO SCH ×2 (09:07→21:29)
[2020-09-26] MEDS: ZINC SULFATE 220 MG CAP PO SCH (09:07)
[2020-09-26] MEDS: METOPROLOL TARTRATE 25 MG TAB PO SCH ×2 (09:07→21:30)
[2020-09-26] MEDS: MIDODRINE 5 MG TAB PO SCH ×3 (09:07→17:36)
[2020-09-26] MEDS: APIXABAN 2.5 MG TAB PO SCH ×2 (09:07→21:29)
[2020-09-26] MEDS: oxyCODONE 5 MG TAB PO PRN (09:07)
[2020-09-26] MEDS: CHOLECALCIFEROL (VIT D3) 1000 UNIT (25 mcg) TAB PO SCH (09:08)
--- NOTE | 2020-09-26 09:14 | Progress Note ---
Assessment and Plan Cultures: 09/18/2020 COVID-19 PCR: Positive 09/18/2020 blood culture: E.coli 09/18/2020 Urine culture: E.coli 09/19/2020 sputum culture: Contaminated with oral secretions 09/19/2020 HIV RNA PCR: 67 copies per mL Assessment: 70-year-old male with history of HIV infection (unknown CD4/VL/ART compliance), hypertension, atrial fibrillation on Xarelto, initially admitted on 09/15/2020 RVR A. fib, LOLI, left AMA, came back to the ED on 09/17/2020 secondary to worsening shortness of breath for 3 days: #Severe sepsis with septic shock: Shock resolved. Secondary to E.coli bacteremia likely from UTI. HIDA scan negative for acute cholecystitis. #E.coli bacteremia: Likely from UTI. RUQ US did show a large GB stone. Labs initially with elevated LFTs and bilirubin. HIDA negative. Was seen by Gen Surg. #UTI: Urinalysis with 71 WBCs and moderate leukocyte esterase. Urine culture with E.coli #COVID-19: PCR positive. On supplemental oxygen. Was not given remdesivir due to renal failure. #LOLI: renally dose meds and antimicrobials. On HD. #Acute respiratory hypoxic failure: on NC. #HIV: listed meds are Descovy + Tivicay. Likely good control since his HIV RNA PCR came back at 67 copies/ml. CD4 is 70 but 30%, overall count is low likely due to steroids. OI prophylaxis is not needed. #Acute encephalopathy: ?multifactorial. CT head unremarkable for acute process. Recommendations: -continue IV ceftriaxone 2 g daily ending 09/28/2020 (total 10 days) -complete steroid course for COVID-19 -continue renally dosed antiretroviral therapy based on formulary/therapeutic interchange: TDF + FTC + DTG -HIV RNA PCR came back at 67 copies/ml. CD4 is 70 but 30%, overall count is low likely due to steroids. OI prophylaxis is not needed -anticoag per protocol, on yasmin Rae MD, FACP [facility] ([facility]) O: [phone] F: [phone] Subjective Date of service: 09/26/20 Principal diagnosis: Acute Resp Fail, Sepsis, AF with RVR Interval history: No fever. On nasal cannula but had taken it off. He pulled out his NG tube. Ot herwise calm, states he wants to get out of here. Objective - Exam Narrative Exam: Physical Exam Constitutional: Awake, no distress Head, Ears, Nose: Normocephalic, atraumatic. External ears, nose normal Eyes: Conjunctivae/corneas clear. No icterus. No ptosis. Neck: Supple, no meningeal signs Cardiovascular: S1, S2 normal. Respiratory: Air entry fair bilaterally GI: Soft, non-tender; bowel sounds normal. No peritoneal signs Musculoskeletal: No pedal edema, no cyanosis. Right upper chest HD catheter present Skin: No rash or abscess Hem/Lymphatic: No palpable cervical or supraclavicular nodes. No lymphangitis Psych: No agitation Neurological: Awake, lying in bed - Constitutional Vitals: Vital Signs Temp Pulse Resp BP Pulse Ox 96.8 F L 77 20 114/59 100 09/26/20 03:50 09/26/20 08:00 09/26/20 08:00 09/26/20 08:00 09/26/20 08:00 Temperature -Last 24 Hours Temperature 96.8 F Temperature 97.9 F Temperature 98.2 F Temperature 98.0 F Temperature 99 F Temperature 97.7 F Temperature 98.9 F - Labs CBC & Chem 7: 09/26/20 07:06 09/26/20 07:06 Labs: Abnormal lab results 09/25/20 09/25/20 09/25/20 Range/Units 10:45 12:45 18:03 WBC 20.7 H (4.5-11.0) K/mm3 RBC 3.33 L (3.65-5.03) M/mm3 Hgb 10.2 L (11.8-15.2) gm/dl Hct 31.3 L (35.5-45.6) % Plt Count 139 L (140-440) K/mm3 BUN (9-20) mg/dL Creatinine (0.8-1.3) mg/dL Glucose (75-100) mg/dL POC Glucose 108 H 114 H (70-105) mg/dL 09/25/20 09/26/20 09/26/20 Range/Units 23:29 05:00 07:06 WBC 17.0 H (4.5-11.0) K/mm3 RBC 3.10 L (3.65-5.03) M/mm3 Hgb 9.6 L (11.8-15.2) gm/dl Hct 28.8 L (35.5-45.6) % Plt Count (140-440) K/mm3 BUN (9-20) mg/dL Creatinine (0.8-1.3) mg/dL Glucose (75-100) mg/dL POC Glucose 111 H 115 H (70-105) mg/dL 09/26/20 Range/Units 07:06 WBC (4.5-11.0) K/mm3 RBC (3.65-5.03) M/mm3 Hgb (11.8-15.2) gm/dl Hct (35.5-45.6) % Plt Count (140-440) K/mm3 BUN 69 H (9-20) mg/dL Creatinine 2.2 H (0.8-1.3) mg/dL Glucose 107 H (75-100) mg/dL POC Glucose (70-105) mg/dL
--- NOTE | 2020-09-26 09:54 | Progress Note ---
Assessment and Plan Assessment and plan: This is 70-year-old male with HIV, HTN, and atrial fibrillation (currently on therapeutic anticoagulation with Xarelto) admitted with atrial fibrillation with RVR, SIRs, metabolic acidosis, acute kidney injury, acute hypoxic respiratory failure, hypotension, and CHF Septic Shock Acute hypoxemic respiratory failure 2/2 to volume overload/chf exacerbation Acute systolic heart failure exacerbation Atrial fibrillation with RVR Acute on chronic kidney injury Hypotension Anemia Thrombocytopenia E coli bacteremia E. coli urinary tract infection NSTEMI Elevated Ddimer Leukocytosis HIV, asymptomatic HTN Coagulopathy Transaminitis -Cardiology, CCM, Nephrology, ID, general surgery, heme/onc consulted, appreciate recommendations -09/20 COVID-19 PCR positive -Droplet/isolation precautions -Dexamethasone 6 mg p.o. (09/20-09/30) -Vitamin D, vitamin C, zinc -Vasopressor support with levophed and vasopressin, midodrine -09/17 CXR shows borderline heart size, mild central pulmonary venous congestion -09/17 renal ultrasound shows no acute findings -09/18 echocardiogram shows left ventricle systolic function mildly decreased, LVEF of 40 to 45% with mild concentric left ventricle hypertrophy, trace MR, mild TR, trace OR -09/19 abdominal ultrasound shows large gallstone within the gallbladder, no pericholecystic fluid, gallbladder wall upper limits of normal measuring 3 mm -09/21 HIDA scan shows no evidence of acute cholecystitis -09/21 BLE Dopplar US no evidence for DVT -09/23 CT head shows no acute intracranial hemorrhage or parenchymal abnormality, mild diffuse brain atrophy with commensurate ventricular enlargement which is likely age appropriate, small frontal scalp lipoma measuring 9 mm in thickness, 4 cm in length, and 4 cm in width., Sinuses and mastoid air cells are clear. -09/17 proBNP 98149 -S/p IV Lasix twice daily -09/20 nephrology initiated the patient on dialysis -Pulmonary hygiene -Bipap qhs -09/25 CT abd/pelvis without contrast pending -PO amiodarone -HIV meds per ID -IV abx therapy -HIT pending -Trend CBC, BMP, LFTs DVT/GI prophylaxis: PPI, SCDs to bilateral lower extremities while in bed, no chemical anticoagulation at this time d/t thrombocytopenia Disposition: IMCU History Interval history: This is 70-year-old male with HIV, HTN, and atrial fibrillation (currently on therapeutic anticoagulation with Xarelto) presents the emergency department on 09/17 with complaints of shortness of breath over the past 3 days and on arrival of EMS patient was found to have a pulse oximetry of 85% on room air. He was placed on supplemental oxygenation. Of note patient was admitted on 09/15 with similar complaints and found to have A. fib with RVR, hyponatremia, hypomagnesemia and acute kidney injury and left AMA. He was admitted to the hospital service with atrial fibrillation with RVR, SIRs, metabolic acidosis, acute kidney injury, acute hypoxic respiratory failure, hypotension, and CHF . Cardiology, CCM and nephrology were consulted. 09/18/2020. Await echocardiogram to assess for diastolic versus systolic etiology. Patient with elevated BNP greater than 18,000. Patient apparently was admitted approximately 3 days ago but left AMA. Cardiology consulted for heart failure, A. fib with RVR and elevated troponin. Patient denies chest pain. Also, patient with elevated creatinine of 4.7 with creatinine 2.8 on recent admission. We do not have a previous creatinine as a baseline to compare. Nephrology consultation pending. Follow-up renal ultrasound. Patient with coagulopathy and INR 3.04. Unsure if patient was on anticoagulation for A. fib. 09/19/2020. Patient likely with vasomotor acute kidney injury in the setting of s hock. Follow-up urine studies and renal ultrasound. Creatinine continues to worsen. Nephrology following. Etiology of respiratory failure secondary to heart failure with Covid testing pending. Elevated troponin suggestive of NSTEMI. Continue diuresis with Lasix. Continue IV amiodarone for rate control of A. fib with RVR. Continue heparin. Follow-up echocardiogram. Cardiology following. 09/20/2020: This time my examination patient was on BiPAP therapy and now is on nasal cannula. Patient remains on amiodarone drip with heart rate in the 130s to 140s and vasopressor support with Levophed. Today nephrology will initiate hemodialysis given worsening renal function studies and has stopped diuresis with Lasix. ID resumed antiretroviral therapy and ordered a HIDA scan. Today the patient received a temporary Vas-Cath and is COVID-19 PCR resulted as positive. Patient will be started on vitamin C, vitamin D and zinc and dexamethasone given need for supplemental oxygenation. 09/21: Ecoli UTI and bacteremia and ID has changed him to meropenem, Patient received HD yesterday and patient remains on amiodarone drip. He is off the floor to obtain a HIDA scan. 09/22: HIDA scan did not show acute cholecystitis. Ecoli bacteremia is sensitive to ceftriaxone and ID changed his abx. Mentation is better. BP is liable. Remains on levophed and vasopressin. We started midodrine. HIT panel pending and hem/onc consulted. 09/23: Patient noted to have unequal pupils with left >right, STAT CT head ordered. Nephro will withhold hemodialysis and assess needs as kidney function has gotten better. Patient symptomatically follows commands and is on nasal cannula. Cardiology stopped his Eliquis due to persistent thrombocytopenia. 09/24: Patient remains confused, pupils still unequal. Started on eliquis 2.5 today and he will be transferred to [facility]. 09/25: Patient remains confused, had Bipap overnight, CT abd/pelvis ordered per ID recommendations given persistent leukocytosis. Cr remains unchanged but BUN in rising. Nephrology is on the case. 09/26/2020; patient was confused and on 3 L of oxygen. ID is following the patient and continue with antiretroviral medications, no OI prophylaxis needed. Patient is on IV Rocephin lasted 09/28 per ID recommendation for E. coli bacteremia. ID ordered CT abdomen and pelvis. We will follow the results. Patient is being followed by cardiology and they recommend to resume Eliquis with 2.5 mg p.o. twice daily, thrombocytopenia is improving. Patient is on amiodarone and metoprolol. Patient is being followed by nephrology and is on dialysis. Blood pressure was normal this morning. Patient was tachycardic in A. fib with RVR. CT head was normal. Prognosis is guarded. Continue [facility] care. History Interval history: Patient was seen and evaluated this morning Patient said he is feeling better, patient was confused and did not answer more questions. Patient was on 3 L of oxygen Hospitalist Physical - Physical exam Narrative exam: Patient was on 3L of oxygen. The patient appeared well nourished and normally developed. Vital signs as documented. Head exam is unremarkable. No scleral icterus . Neck is without jugular venous distension, thyromegaly, or carotid bruits. Lungs are clear to auscultation. Cardiac exam reveals regular rate and Rhythm. Abdominal exam reveals normal bowel sounds, nontender, no organomegaly. Extremities are nonedematous and both femoral and pedal pulses are normal. 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 - Constitutional Vitals: Temp Pulse Resp BP Pulse Ox 96.8 F L 110 H 16 118/70 100 09/26/20 03:50 09/26/20 09:31 09/26/20 09:31 09/26/20 09:31 09/26/20 09:31 General appearance: Present: no acute distress HEART Score - HEART Score Troponin: Troponin T < 0.010 ng/mL (0.00-0.029) 09/22/20 05:38 Results - Labs CBC & Chem 7: 09/26/20 07:06 09/26/20 07:06 Labs: Laboratory Last Values WBC 17.0 K/mm3 (4.5-11.0) H 09/26/20 07:06 RBC 3.10 M/mm3 (3.65-5.03) L 09/26/20 07:06 Hgb 9.6 gm/dl (11.8-15.2) L 09/26/20 07:06 Hct 28.8 % (35.5-45.6) L 09/26/20 07:06 MCV 93 fl (84-94) 09/26/20 07:06 MCH 31 pg (28-32) 09/26/20 07:06 MCHC 34 % (32-34) 09/26/20 07:06 RDW 13.9 % (13.2-15.2) 09/26/20 07:06 Plt Count 153 K/mm3 (140-440) 09/26/20 07:06 Lymph % (Auto) 3.1 % (13.4-35.0) L 09/22/20 05:38 [place] % (Auto) 10.7 % (0.0-7.3) H 09/22/20 05:38 Eos % (Auto) 0.1 % (0.0-4.3) 09/22/20 05:38 Baso % (Auto) 0.2 % (0.0-1.8) 09/22/20 05:38 Lymph # (Auto) 0.5 K/mm3 (1.2-5.4) L 09/22/20 05:38 [place] # (Auto) 1.7 K/mm3 (0.0-0.8) H 09/22/20 05:38 Eos # (Auto) 0.0 K/mm3 (0.0-0.4) 09/22/20 05:38 Baso # (Auto) 0.0 K/mm3 (0.0-0.1) 09/22/20 05:38 Add Manual Diff Complete 09/23/20 04:36 Total Counted 100 09/23/20 04:36 Seg Neutrophils % Piping Design Specialist 09/23/20 04:36 Seg Neuts % (Manual) 91.0 % (40.0-70.0) H 09/23/20 04:36 Band Neutrophils % 2.0 % 09/23/20 04:36 Lymphocytes % (Manual) 2.0 % (13.4-35.0) L 09/23/20 04:36 Monocytes % (Manual) 5.0 % (0.0-7.3) 09/23/20 04:36 Nucleated RBC % Not Reportable 09/23/20 04:36 Seg Neutrophils # 13.6 K/mm3 (1.8-7.7) H 09/22/20 05:38 Seg Neutrophils # Man 12.9 K/mm3 (1.8-7.7) H 09/23/20 04:36 Band Neutrophils # 0.3 K/mm3 09/23/20 04:36 Abs Lymphs (Manual) 223 cells/uL (850-3900) L 09/19/20 13:35 Lymphocytes # (Manual) 0.3 K/mm3 (1.2-5.4) L 09/23/20 04:36 Abs React Lymphs (Man) 0.0 K/mm3 09/23/20 04:36 Monocytes # (Manual) 0.7 K/mm3 (0.0-0.8) 09/23/20 04:36 Eosinophils # (Manual) 0.0 K/mm3 (0.0-0.4) 09/23/20 04:36 Basophils # (Manual) 0.0 K/mm3 (0.0-0.1) 09/23/20 04:36 Metamyelocytes # 0.0 K/mm3 09/23/20 04:36 Myelocytes # 0.0 K/mm3 09/23/20 04:36 Promyelocytes # 0.0 K/mm3 09/23/20 04:36 Blast Cells # 0.0 K/mm3 09/23/20 04:36 WBC Morphology Not Reportable 09/23/20 04:36 Hypersegmented Neuts Not Reportable 09/23/20 04:36 Hyposegmented Neuts Not Reportable 09/23/20 04:36 Hypogranular Neuts Not Reportable 09/23/20 04:36 Smudge Cells Not Reportable 09/23/20 04:36 Toxic Granulation Not Reportable 09/23/20 04:36 Toxic Vacuolation Not Reportable 09/23/20 04:36 Dohle Bodies Not Reportable 09/23/20 04:36 Pelger-Huet Anomaly Not Reportable 09/23/20 04:36 Vinh Rods Not Reportable 09/23/20 04:36 Platelet Estimate Consistent w auto 09/23/20 04:36 Clumped Platelets Not Reportable 09/23/20 04:36 Plt Clumps, EDTA Not Reportable 09/23/20 04:36 Large Platelets Not Reportable 09/23/20 04:36 Giant Platelets Not Reportable 09/23/20 04:36 Platelet Satelliting Not Reportable 09/23/20 04:36 Plt Morphology Comment Not Reportable 09/23/20 04:36 RBC Morphology Not Reportable 09/23/20 04:36 Dimorphic RBCs Not Reportable 09/23/20 04:36 Polychromasia Not Reportable 09/23/20 04:36 Hypochromasia Not Reportable 09/23/20 04:36 Poikilocytosis Not Reportable 09/23/20 04:36 Anisocytosis 1+ 09/23/20 04:36 Microcytosis Not Reportable 09/23/20 04:36 Macrocytosis Not Reportable 09/23/20 04:36 Spherocytes Not Reportable 09/23/20 04:36 Pappenheimer Bodies Not Reportable 09/23/20 04:36 Sickle Cells Not Reportable 09/23/20 04:36 Target Cells Few 09/23/20 04:36 Tear Drop Cells Not Reportable 09/23/20 04:36 Ovalocytes Not Reportable 09/23/20 04:36 Helmet Cells Not Reportable 09/23/20 04:36 [place] Bodies Not Reportable 09/23/20 04:36 [place] Rings Not Reportable 09/23/20 04:36 Vita Cells Not Reportable 09/23/20 04:36 Bite Cells Not Reportable 09/23/20 04:36 Crenated Cell Not Reportable 09/23/20 04:36 Elliptocytes Not Reportable 09/23/20 04:36 Acanthocytes (Spur) Not Reportable 09/23/20 04:36 Rouleaux Not Reportable 09/23/20 04:36 Hemoglobin C Crystals Not Reportable 09/23/20 04:36 Schistocytes Not Reportable 09/23/20 04:36 Malaria parasites Not Reportable 09/23/20 04:36 Zachary Bodies Not Reportable 09/23/20 04:36 Hem Pathologist Commnt No 09/23/20 04:36 PT 15.7 Sec. (12.2-14.9) H 09/24/20 12:13 INR 1.27 (0.87-1.13) H 09/24/20 12:13 APTT 25.7 Sec. (24.2-36.6) 09/24/20 12:13 D-Dimer 1772.86 ng/mlDDU (0-234) H 09/24/20 05:00 Heparin Anti-Xa Level 0.10 U.I./ml (0.3-0.7) L 09/20/20 04:00 ABG pH 7.508 (7.320-7.450) H 09/17/20 10:28 POC ABG pCO2 22.8 mmHg (32.0-48.0) L 09/17/20 10:28 POC ABG pO2 66.8 mmHg (83-108) L 09/17/20 10:28 POC ABG HCO3 17.7 09/17/20 10:28 ABG O2 Saturation 93.4 (0-100) 09/17/20 10:28 POC ABG Base Excess -3.5 09/17/20 10:28 ABG Hemoglobin 12.7 (12.0-17.5) 09/17/20 10:28 ABG Oxyhemoglobin 92.7 (94-98) L 09/17/20 10:28 ABG Methemoglobin 0.3 (0.0-1.5) 09/17/20 10:28 ABG Sodium 127.4 mmol/L (136.0-145.0) L 09/17/20 10:28 ABG Potassium 4.7 mmol/L (3.40-4.50) H 09/17/20 10:28 ABG Chloride 101.0 mmol/L (98-107) 09/17/20 10:28 ABG Glucose 121 mg/dL (65-95) H 09/17/20 10:28 Carboxyhemoglobin 0.4 (0.5-1.5) L 09/17/20 10:28 FiO2 % 21 09/17/20 10:28 Sodium 139 mmol/L (137-145) 09/26/20 07:06 Potassium 3.9 mmol/L (3.6-5.0) 09/26/20 07:06 Chloride 103.7 mmol/L (98-107) 09/26/20 07:06 Carbon Dioxide 30 mmol/L (22-30) 09/26/20 07:06 Anion Gap 9 mmol/L 09/26/20 07:06 BUN 69 mg/dL (9-20) H 09/26/20 07:06 Creatinine 2.2 mg/dL (0.8-1.3) H 09/26/20 07:06 Estimated GFR 36 ml/min 09/26/20 07:06 BUN/Creatinine Ratio 31 % 09/26/20 07:06 Glucose 107 mg/dL (75-100) H 09/26/20 07:06 POC Glucose 115 mg/dL (70-105) H 09/26/20 05:00 Lactic Acid 1.00 mmol/L (0.7-2.0) 09/20/20 17:10 Calcium 9.1 mg/dL (8.4-10.2) 09/26/20 07:06 Phosphorus 2.90 mg/dL (2.5-4.5) 09/26/20 07:06 Magnesium 1.70 mg/dL (1.7-2.3) 09/26/20 07:06 Ferritin 1190.0 ng/mL (30.0-300.0) H 09/24/20 05:00 Total Bilirubin 2.40 mg/dL (0.1-1.2) H 09/21/20 Unknown AST 31 units/L (5-40) 09/21/20 Unknown ALT 57 units/L (7-56) H 09/21/20 Unknown Alkaline Phosphatase < 5 units/L (35-129) L 09/21/20 Unknown Lactate Dehydrogenase 276 units/L (91-180) H 09/24/20 05:00 Total Creatine Kinase 20 units/L (55-170) L 09/19/20 03:30 Troponin T < 0.010 ng/mL (0.00-0.029) 09/22/20 05:38 C-Reactive Protein 4.20 mg/dL (0.00-1.30) H 09/24/20 05:00 NT-Pro-B Natriuret Pep 46428 pg/mL (0-900) H 09/17/20 10:47 Total Protein 6.7 g/dL (6.3-8.2) 09/21/20 Unknown Albumin 1.9 g/dL (3.9-5) L 09/21/20 Unknown Albumin/Globulin Ratio 0.4 % 09/21/20 Unknown Triglycerides 137 mg/dL (2-149) 09/17/20 13:54 Cholesterol 48 mg/dL (50-199) L 09/17/20 13:54 LDL Cholesterol Direct 4 mg/dL (50-130) L 09/17/20 13:54 HDL Cholesterol 9 mg/dL (40-59) L 09/17/20 13:54 Cholesterol/HDL Ratio 5.33 % 09/17/20 13:54 Free PSA See scanned result 09/17/20 17:35 % Free PSA Calc See scanned result 09/17/20 17:35 Total PSA See scanned result 09/17/20 17:35 Procalcitonin 2.10 ng/mL (<0.15) 09/25/20 06:40 PTH Intact 161.4 pg/mL (15-65) H 09/19/20 03:30 Arterial Blood Glucose 121 mg/dL (65-95) H 09/17/20 10:28 Arterial Blood Ionized Calcium 5.0 mg/dL (4.6-5.3) 09/17/20 10:28 Urine Color Yellow (Yellow) 09/18/20 12:00 Urine Turbidity Cloudy (Clear) 09/18/20 12:00 Urine pH 5.0 (5.0-7.0) 09/18/20 12:00 Ur Specific [place] 1.009 (1.003-1.030) 09/18/20 12:00 Urine Protein 30 mg/dl mg/dL (Negative) 09/18/20 12:00 Urine Glucose (UA) Neg mg/dL (Negative) 09/18/20 12:00 Urine Ketones Neg mg/dL (Negative) 09/18/20 12:00 Urine Blood Sm (Negative) 09/18/20 12:00 Urine Nitrite Neg (Negative) 09/18/20 12:00 Urine Bilirubin Neg (Negative) 09/18/20 12:00 Urine Urobilinogen < 2.0 mg/dL (<2.0) 09/18/20 12:00 Ur Leukocyte Esterase Mod (Negative) 09/18/20 12:00 Urine WBC (Auto) 71.0 /HPF (0.0-6.0) H 09/18/20 12:00 Urine RBC (Auto) 2.0 /HPF (0.0-6.0) 09/18/20 12:00 U Epithel Cells (Auto) 1.0 /HPF (0-13.0) 09/18/20 12:00 Urine Bacteria (Auto) 4+ /HPF (Negative) 09/18/20 12:00 Urine WBC Clumps 2+ /HPF 09/18/20 12:00 Hyaline Casts 3 /LPF 09/18/20 12:00 Granular Casts 3 /LPF 09/18/20 12:00 Urine Mucus Few /HPF 09/18/20 12:00 Urine Eosinophils None seen (None Seen) 09/19/20 03:15 Urine Creatinine 61.0 mg/dL (0.1-20.0) H 09/18/20 12:00 Urine Sodium 62 mmol/L 09/18/20 12:00 Random Vancomycin 12.7 ug/mL (0-40.0) 09/19/20 03:30 Lymph Enumerat CD4/CD8 0.70 (0.86-5.00) L 09/19/20 13:35 % CD3 Cells 79 % (57-85) 09/19/20 13:35 Absolute CD3 Count 175 cells/uL (840-3060) L 09/19/20 13:35 % CD4 Cells 31 % (30-61) 09/19/20 13:35 Absolute CD4 Count 70 cells/uL (490-1740) L 09/19/20 13:35 % CD8 Cells 45 % (12-42) H 09/19/20 13:35 Absolute CD8 Count 101 cells/uL (180-1170) L 09/19/20 13:35 % CD19 Cells 12 % (6-29) 09/19/20 13:35 Absolute CD19 Count 26 cells/uL (110-660) L 09/19/20 13:35 Coronavirus (PCR) Positive (Negative) A 09/18/20 09:39 Hepatitis A IgM Ab Non-reactive (NonReactive) 09/20/20 17:10 Hep Bs Antigen Non-reactive (Negative) 09/20/20 17:10 Hep B Core IgM Ab Non-reactive (NonReactive) 09/20/20 17:10 Hepatitis C Antibody Non-reactive (NonReactive) 09/20/20 17:10 HIV-1 RNA PCR copies/ml 67 Copies/mL H 09/19/20 13:35 HIV-1 RNA (PCR) log 1.83 Log cps/mL H 09/19/20 13:35 [place]/IV: Voiding Method Condom Catheter Active Medications - Current Medications Current Medications: Generic Name Dose Route Start Last Admin Trade Name Freq PRN Reason Stop Dose Admin Acetaminophen 650 mg 09/17/20 13:52 09/26/20 06:43 Acetaminophen 325 Mg Tab PO 650 mg Q4H PRN Administration Pain MILD(1-3)/Fever >100.5/ANGEL Albuterol 2.5 mg 09/17/20 13:52 09/17/20 20:47 Albuterol 2.5 Mg/3 Ml Nebu IH 2.5 mg Q4HRT PRN Administration Shortness Of Breath Amiodarone HCl 200 mg 09/24/20 22:00 09/26/20 09:07 Amiodarone 200 Mg Tab PO 200 mg BID EDIE Administration Lipase/Protease/Amylase 1 each 09/20/20 13:10 Lipase 10,500/Protease 25,000/Amylase 43,750 (Units) Dr Darnell BREENTUBE PRN PRN For Clogged Feeding Tube Apixaban 2.5 mg 09/24/20 12:00 09/26/20 09:07 Apixaban 2.5 Mg Tab PO 2.5 mg Q12HR EDIE Administration Protocol Ascorbic Acid 500 mg 09/20/20 22:00 09/26/20 09:08 Ascorbic Acid 500 Mg Tab PO 500 mg BID EDIE Administration Cholecalciferol 1,000 unit 09/21/20 10:00 09/26/20 09:08 Cholecalciferol (Vit D3) 1000 Unit (25 Mcg) Tab PO 1,000 unit QDAY EDIE Administration Dexamethasone 6 mg 09/20/20 17:00 09/26/20 09:06 Dexamethasone 4 Mg Tab PO 09/29/20 10:01 6 mg QDAY EDIE Administration Emtricitabine 200 mg 09/20/20 12:00 09/24/20 11:00 Emtricitabine 200 Mg Cap PO 200 mg Q96H EDIE Administration Famotidine 20 mg 09/24/20 10:00 09/26/20 09:07 Famotidine 20 Mg Tab PO 20 mg DAILY EDIE Administration Fentanyl 1 applic 09/23/20 14:05 09/23/20 14:42 Fentanyl 25 Mcg/Hr Patch 72hr TD 09/26/20 14:04 1 applic ONCE NR Administration Heparin Sodium (Porcine) 3,000 unit 09/20/20 10:06 Heparin 10,000 Units/10 Ml Vial IV VIRGIL PRN hemodialysis Sodium Chloride 100 mls @ 999 mls/hr 09/20/20 10:06 Nacl 0.9% IV VIRGIL PRN Hypotension Ceftriaxone Sodium 2 gm in 100 mls @ 200 mls/hr 09/22/20 13:00 09/26/20 09:05 Rocephin/Ns 2 Gm/100 Ml IV 200 mls/hr Q24HR EDIE Administration Protocol Metoprolol Tartrate 5 mg 09/19/20 19:06 09/24/20 10:59 Metoprolol Tartrate 5 Mg/5 Ml Inj IV 5 mg Q8HR PRN Administration HR > 135 Minute Metoprolol Tartrate 25 mg 09/24/20 22:00 09/26/20 09:07 Metoprolol Tartrate 25 Mg Tab PO 25 mg BID EDIE Administration Midodrine 5 mg 09/22/20 12:00 09/26/20 09:07 Midodrine 5 Mg Tab PO 5 mg TID@0800,1200,1600 EDIE Administration Ondansetron HCl 4 mg 09/17/20 13:52 Ondansetron 4 Mg/2 Ml Inj IV Q8H PRN Nausea And Vomiting Oxycodone HCl 5 mg 09/21/20 13:14 09/26/20 09:07 Oxycodone 5 Mg Tab PO 5 mg Q6H PRN Administration Pain, Moderate (4-6) Simple Syrup 15 ml 09/20/20 13:10 Simple Syrup 15 Ml FEEDTUBE PRN PRN Hypoglycemia Simple Syrup 30 ml 09/20/20 13:10 Simple Syrup 15 Ml FEEDTUBE PRN PRN Hypoglycemia Sodium Bicarbonate 325 mg 09/20/20 13:10 Sodium Bicarbonate 325 Mg Tab FEEDTUBE PRN PRN For Clogged Feeding Tube Sodium Chloride 10 ml 09/17/20 22:00 09/26/20 09:08 Sodium Chloride 0.9% 10 Ml Flush Syringe IV 10 ml BID EDIE Administration Sodium Chloride 10 ml 09/17/20 13:52 09/24/20 09:15 Sodium Chloride 0.9% 10 Ml Flush Syringe IV 10 ml PRN PRN Administration LINE FLUSH Tenofovir Disoproxil Fumarate 300 mg 09/20/20 22:00 09/20/20 22:25 Tenofovir 300 Mg Tab PO 300 mg Mo EDIE Administration Zinc Sulfate 220 mg 09/21/20 10:00 09/26/20 09:07 Zinc Sulfate 220 Mg Cap PO 220 mg QDAY EDIE Administration Nutrition/Malnutrition Assess - Dietary Evaluation Nutrition/Malnutrition Findings: Nutrition Notes Start: 09/18/20 11:30 Freq: Status: Active Protocol: Document 09/24/20 12:37 CW (Rec: 09/24/20 12:50 CW [id number]) Nutrition Notes Initial or Follow up Reassessment Current Diagnosis Acute Kidney Injury,Heart Failure Other Pertinent Diagnosis COVID-19(+), MS, AMS, Cholethiasis, on HD Current Diet Nepro 1.8 at 45 mL/hr Labs/Tests BUN 90 Cr 3.1 Pertinent Medications Decadron Vasopressin Height 6 ft 1 in Weight 73 kg [place] Body Weight (kg) 83.63 BMI 21.2 Weight Status Underweight Subjective/Other Information F/U for TF at goal and tolerance. TF running at goal and was well tolerated. 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 No Is Patient Ambulatory and/or Out of Bed No REE-([facility] Hoang-confined to bed) [phone] Calculation Used for Recommendations [facility] Additional Notes PRO needs: >87 g(>1.2 g/kg for HD) Fluid needs: 1 mL/kcal or per MD Nutrition Intervention Change Diet Order: Continue TF Nutrition Support: Nepro 1.8 at 45 ml/hr with a free water flush of 200 ml q4h Kcal 1,944 Protein (gm) 87 Fluid (mL) 785 Goal #1 Meet at least 75% of estimated kcal and protein needs via TF Goal #2 TF tolerance Goal #3 Weight maintenance/weight gain Anticipated Discharge Needs: Unable to determine at this time. Follow-Up By: 09/27/20 Additional Comments F/U for TF tolerance
--- NOTE | 2020-09-26 10:43 | XRay Report ---
ABDOMEN 1 VIEW 09/26/2020 9:35 AM INDICATION / CLINICAL INFORMATION: NG tube placement confirmation. COMPARISON: 09/20/2020 FINDINGS: TUBES / LINES: Gastric tube with radiolucent marker at the gastroesophageal junction. BOWEL GAS PATTERN: Diffuse gaseous distention of bowel. No definite evidence of obstruction. FREE AIR / EXTRALUMINAL GAS: None. ADDITIONAL FINDINGS: No significant additional findings. IMPRESSION: 1. Gastric tube radiolucent marker is at the gastroesophageal junction. Recommend advancing 5 cm prio r to use. Signer Name: Jose Alfredo Mujica MD Signed: 09/26/2020 10:38 AM Workstation Name: [email or web address]
--- NOTE | 2020-09-26 10:48 | Progress Note ---
Assessment and Plan 1. Acute kidney injury: Vasomotor LOLI in the setting of shock. ATN likely. Renal US negative for hydro. Multiple bladder scan negative. Patient require hemodialysis due to significant decline in the renal function. Hemodialysis: 09/20, 09/21, 09/25. Monitor renal function. Renal prognosis is guarded. Avoid nephrotoxic agents. Meds dosage based on GFR. Monitor for FOOD SERVICES COORDINATOR needs. 2. FEN: Metabolic acidosis, improved, monitor. Monitor volume status and lytes. 3. Acute hypoxic respiratory failure: Covid test positive. Supplemental O2. 4. Acute CHF: Echocardiogram: EF 40-45%. CHF orderset / pathway. Monitor. 5. Atrial fibrillation with RVR: On Amio. Followed by Cards. 6. Elevated troponin: Trend. Followed by Cards. 7. Coagulopathy: Trend. 8. Shock / Hypotension: Multifactorial, monitor. Off pressors. 9. Elevated Transaminases: Improving. 10. Metabolic encephalopathy: Monitor. 11. HIV. 12. Anemia, POA: Monitor. Subjective: Patient was seen and examined at the bedside. Objective: General appearance: well-developed, appears stated age, no distress, on NC O2 HEENT: ATNC, L pupil dilated Neck: trachea midline Respiratory: bilateral diminished breath sounds Heart: irregular, S1S2, no murmur Gastrointestinal: soft, normoactive bowel sounds, not tender Integumentary: no obvious rash Ext: no edema Neurologic: lethargic, non-verbal, not following any command Subjective Date of service: 09/26/20 Principal diagnosis: Acute Resp Fail, Sepsis, AF with RVR Objective - Vital Signs Vital signs: Vital Signs - 12hr 09/25/20 09/25/20 09/25/20 22:51 22:52 23:01 Temperature Pulse Rate 87 99 H Pulse Rate [ From Monitor] Pulse Rate [ None] Respiratory 14 13 14 Rate Blood Pressure 80/50 116/68 O2 Sat by Pulse 100 100 Oximetry 09/25/20 09/25/20 09/25/20 23:02 23:11 23:21 Temperature Pulse Rate 99 H 107 H 110 H Pulse Rate [ From Monitor] Pulse Rate [ None] Respiratory 13 17 11 L Rate Blood Pressure 116/68 80/50 80/50 O2 Sat by Pulse 100 100 Oximetry 09/25/20 09/25/20 09/25/20 23:31 23:41 23:51 Temperature Pulse Rate 89 94 H 89 Pulse Rate [ From Monitor] Pulse Rate [ None] Respiratory 14 13 13 Rate Blood Pressure 80/50 80/50 80/50 O2 Sat by Pulse 100 100 100 Oximetry 09/25/20 09/26/20 09/26/20 23:52 00:00 00:02 Temperature 97.9 F Pulse Rate 82 Pulse Rate [ From Monitor] Pulse Rate [ None] Respiratory 12 11 L 12 Rate Blood Pressure 66/43 O2 Sat by Pulse 100 Oximetry 09/26/20 09/26/20 09/26/20 00:10 00:11 00:21 Temperature Pulse Rate 68 82 75 Pulse Rate [ From Monitor] Pulse Rate [ None] Respiratory 12 11 L Rate Blood Pressure 66/43 66/43 O2 Sat by Pulse 100 100 Oximetry 09/26/20 09/26/20 09/26/20 00:30 00:41 00:51 Temperature Pulse Rate 72 77 83 Pulse Rate [ From Monitor] Pulse Rate [ None] Respiratory 11 L 11 L 13 Rate Blood Pressure 81/44 87/49 87/49 O2 Sat by Pulse 100 90 90 Oximetry 09/26/20 09/26/20 09/26/20 00:54 01:00 01:11 Temperature Pulse Rate 66 89 96 H Pulse Rate [ 89 From Monitor] Pulse Rate [ None] Respiratory 14 11 L 11 L Rate Blood Pressure 87/49 85/54 85/54 O2 Sat by Pulse 97 99 100 Oximetry 09/26/20 09/26/20 09/26/20 01:21 01:30 01:41 Temperature Pulse Rate 91 H 82 75 Pulse Rate [ From Monitor] Pulse Rate [ None] Respiratory 12 11 L 11 L Rate Blood Pressure 85/54 82/49 82/49 O2 Sat by Pulse 100 100 100 Oximetry 09/26/20 09/26/20 09/26/20 01:51 02:00 02:10 Temperature Pulse Rate 84 80 72 Pulse Rate [ From Monitor] Pulse Rate [ None] Respiratory 10 L 11 L 13 Rate Blood Pressure 82/49 79/49 82/52 O2 Sat by Pulse 100 100 100 Oximetry 09/26/20 09/26/20 09/26/20 02:21 02:30 02:41 Temperature Pulse Rate 75 73 79 Pulse Rate [ From Monitor] Pulse Rate [ None] Respiratory 20 12 14 Rate Blood Pressure 82/52 85/53 82/52 O2 Sat by Pulse 99 99 100 Oximetry 09/26/20 09/26/20 09/26/20 02:50 03:00 03:11 Temperature Pulse Rate 89 93 H 98 H Pulse Rate [ From Monitor] Pulse Rate [ None] Respiratory 10 L 12 11 L Rate Blood Pressure 85/53 77/50 107/68 O2 Sat by Pulse 100 99 98 Oximetry 09/26/20 09/26/20 09/26/20 03:21 03:30 03:45 Temperature Pulse Rate 97 H 88 91 H Pulse Rate [ From Monitor] Pulse Rate [ None] Respiratory 12 11 L Rate Blood Pressure 85/53 111/63 O2 Sat by Pulse 97 98 Oximetry 09/26/20 09/26/20 09/26/20 03:50 04:00 04:30 Temperature 96.8 F L Pulse Rate 82 97 H Pulse Rate [ From Monitor] Pulse Rate [ None] Respiratory 11 L 14 Rate Blood Pressure 114/58 110/59 O2 Sat by Pulse 99 98 Oximetry 09/26/20 09/26/20 09/26/20 05:01 05:30 06:00 Temperature Pulse Rate 95 H 112 H 92 H Pulse Rate [ From Monitor] Pulse Rate [ None] Respiratory 18 10 L 12 Rate Blood Pressure 139/72 108/63 108/63 O2 Sat by Pulse 96 99 94 Oximetry 09/26/20 09/26/20 09/26/20 06:30 06:43 07:00 Temperature Pulse Rate 94 H 114 H Pulse Rate [ From Monitor] Pulse Rate [ None] Respiratory 12 13 13 Rate Blood Pressure 103/62 102/58 O2 Sat by Pulse 95 93 Oximetry 09/26/20 09/26/20 09/26/20 07:30 08:00 08:20 Temperature Pulse Rate 111 H 108 H Pulse Rate [ 110 H From Monitor] Pulse Rate [ 77 None] Respiratory 11 L 20 Rate Blood Pressure 110/69 114/59 O2 Sat by Pulse 100 100 99 Oximetry 09/26/20 09/26/20 09/26/20 08:30 09:00 09:31 Temperature Pulse Rate 111 H 125 H 110 H Pulse Rate [ From Monitor] Pulse Rate [ None] Respiratory 13 15 16 Rate Blood Pressure 114/71 103/73 118/70 O2 Sat by Pulse 94 100 Oximetry 09/26/20 10:00 Temperature Pulse Rate 117 H Pulse Rate [ From Monitor] Pulse Rate [ None] Respiratory 17 Rate Blood Pressure 98/63 O2 Sat by Pulse 100 Oximetry - Lab 09/27/20 04:00 09/27/20 05:00 Most recent lab results ABG pH 7.508 (7.320-7.450) H 09/17/20 10:28 ABG O2 Saturation 93.4 (0-100) 09/17/20 10:28 Calcium 9.1 mg/dL (8.4-10.2) 09/26/20 07:06 Phosphorus 2.90 mg/dL (2.5-4.5) 09/26/20 07:06 Magnesium 1.70 mg/dL (1.7-2.3) 09/26/20 07:06 Urine Creatinine 61.0 mg/dL (0.1-20.0) H 09/18/20 12:00 Urine Sodium 62 mmol/L 09/18/20 12:00 Medications & Allergies - Medications Allergies/Adverse Reactions: Allergies No Known Allergies Allergy (Unverified 09/15/20 06:37) Home Medications: Home Medications Medication Instructions Recorded Confirmed Last Taken Type AtorvaSTATin [Lipitor] 20 mg PO QHS 09/18/20 09/18/20 Unknown History Dolutegravir [Tivicay] 50 mg PO DAILY 09/18/20 09/18/20 Unknown History Emtricitabine/Tenofov Alafenam 1 tab PO DAILY 09/18/20 09/18/20 Unknown History [Descovy 200-25 mg (Nf)] Rivaroxaban [Xarelto] 15 mg PO QDAY 09/18/20 09/18/20 Unknown History allopurinoL [Zyloprim] 300 mg PO QDAY 09/18/20 09/18/20 Unknown History carvediloL [Coreg] 25 mg PO BID 09/18/20 09/18/20 Unknown History lisinopriL [Lisinopril] 20 mg PO DAILY 09/18/20 09/18/20 Unknown History Active Medications: Generic Name Dose Route Start Last Admin Trade Name Freq PRN Reason Stop Dose Admin Acetaminophen 650 mg 09/17/20 13:52 09/26/20 06:43 Acetaminophen 325 Mg Tab PO 650 mg Q4H PRN Administration Pain MILD(1-3)/Fever >100.5/ANGEL Albuterol 2.5 mg 09/17/20 13:52 09/17/20 20:47 Albuterol 2.5 Mg/3 Ml Nebu IH 2.5 mg Q4HRT PRN Administration Shortness Of Breath Amiodarone HCl 200 mg 09/24/20 22:00 09/26/20 09:07 Amiodarone 200 Mg Tab PO 200 mg BID EDIE Administration Lipase/Protease/Amylase 1 each 09/20/20 13:10 Lipase 10,500/Protease 25,000/Amylase 43,750 (Units) Dr Patrick FEEDTUBE PRN PRN For Clogged Feeding Tube Apixaban 2.5 mg 09/24/20 12:00 09/26/20 09:07 Apixaban 2.5 Mg Tab PO 2.5 mg Q12HR DEIE Administration Protocol Ascorbic Acid 500 mg 09/20/20 22:00 09/26/20 09:08 Ascorbic Acid 500 Mg Tab PO 500 mg BID EDIE Administration Cholecalciferol 1,000 unit 09/21/20 10:00 09/26/20 09:08 Cholecalciferol (Vit D3) 1000 Unit (25 Mcg) Tab PO 1,000 unit QDAY EDIE Administration Dexamethasone 6 mg 09/20/20 17:00 09/26/20 09:06 Dexamethasone 4 Mg Tab PO 09/29/20 10:01 6 mg QDAY EDIE Administration Emtricitabine 200 mg 09/20/20 12:00 09/24/20 11:00 Emtricitabine 200 Mg Cap PO 200 mg Q96H EDIE Administration Famotidine 20 mg 09/24/20 10:00 09/26/20 09:07 Famotidine 20 Mg Tab PO 20 mg DAILY EDIE Administration Fentanyl 1 applic 09/23/20 14:05 09/23/20 14:42 Fentanyl 25 Mcg/Hr Patch 72hr TD 09/26/20 14:04 1 applic ONCE NR Administration Heparin Sodium (Porcine) 3,000 unit 09/20/20 10:06 Heparin 10,000 Units/10 Ml Vial IV VIRGIL PRN hemodialysis Sodium Chloride 100 mls @ 999 mls/hr 09/20/20 10:06 Nacl 0.9% IV VIRGIL PRN Hypotension Ceftriaxone Sodium 2 gm in 100 mls @ 200 mls/hr 09/22/20 13:00 09/26/20 09:05 Rocephin/Ns 2 Gm/100 Ml IV 200 mls/hr Q24HR EDIE Administration Protocol Metoprolol Tartrate 5 mg 09/19/20 19:06 09/24/20 10:59 Metoprolol Tartrate 5 Mg/5 Ml Inj IV 5 mg Q8HR PRN Administration HR > 135 Minute Metoprolol Tartrate 25 mg 09/24/20 22:00 09/26/20 09:07 Metoprolol Tartrate 25 Mg Tab PO 25 mg BID EDIE Administration Midodrine 5 mg 09/22/20 12:00 09/26/20 09:07 Midodrine 5 Mg Tab PO 5 mg TID@0800,1200,1600 EDIE Administration Ondansetron HCl 4 mg 09/17/20 13:52 Ondansetron 4 Mg/2 Ml Inj IV Q8H PRN Nausea And Vomiting Oxycodone HCl 5 mg 09/21/20 13:14 09/26/20 09:07 Oxycodone 5 Mg Tab PO 5 mg Q6H PRN Administration Pain, Moderate (4-6) Simple Syrup 15 ml 09/20/20 13:10 Simple Syrup 15 Ml FEEDTUBE PRN PRN Hypoglycemia Simple Syrup 30 ml 09/20/20 13:10 Simple Syrup 15 Ml FEEDTUBE PRN PRN Hypoglycemia Sodium Bicarbonate 325 mg 09/20/20 13:10 Sodium Bicarbonate 325 Mg Tab FEEDTUBE PRN PRN For Clogged Feeding Tube Sodium Chloride 10 ml 09/17/20 22:00 09/26/20 09:08 Sodium Chloride 0.9% 10 Ml Flush Syringe IV 10 ml BID EDIE Administration Sodium Chloride 10 ml 09/17/20 13:52 09/24/20 09:15 Sodium Chloride 0.9% 10 Ml Flush Syringe IV 10 ml PRN PRN Administration LINE FLUSH Tenofovir Disoproxil Fumarate 300 mg 09/20/20 22:00 09/20/20 22:25 Tenofovir 300 Mg Tab PO 300 mg Mo EDIE Administration Zinc Sulfate 220 mg 09/21/20 10:00 09/26/20 09:07 Zinc Sulfate 220 Mg Cap PO 220 mg QDAY EDIE Administration
--- NOTE | 2020-09-26 13:30 | Progress Note ---
Assessment and Plan Volume optimization via HD. Continue PO Lopressor 25 mg BID as BP permits on Midodrine. Ok to continue PRN IV Lopressor as well for sustained HR > 130 bpm. Continue PO Amio 200mg BID. Recommend PRN repletion of electrolytes to avoid tachyarrhythmias. Continue anticoagulation with Eliquis 2.5mg BID. Pt seen in conjunction with Dr. Crespo, who agrees with the assessment and plan of care. - Patient Problems (1) AMS (altered mental status) Current Visit: Yes Status: Acute Qualifiers: Altered mental status type: somnolence Qualified Code(s): R40.0 - Somnolence (2) Acute respiratory failure Current Visit: Yes Status: Acute (3) Sepsis Current Visit: Yes Status: Acute Qualifiers: Severe sepsis shock status: with septic shock (4) UTI (urinary tract infection) Current Visit: Yes Status: Acute (5) LOLI (acute kidney injury) Current Visit: Yes Status: Acute (6) Acute HFrEF (heart failure with reduced ejection fraction) Current Visit: Yes Status: Acute (7) Cardiomyopathy Current Visit: Yes Status: Chronic (8) Atrial fibrillation with RVR Current Visit: Yes Status: Acute (9) Anemia Current Visit: Yes Status: Acute (10) Thrombocytopenia Current Visit: Yes Status: Acute (11) Coagulopathy Current Visit: Yes Status: Acute (12) Elevated LFTs Current Visit: Yes Status: Acute (13) H/O: HTN (hypertension) Current Visit: Yes Status: Chronic (14) HIV (human immunodeficiency virus infection) Current Visit: Yes Status: Chronic Subjective Date of service: 09/26/20 Principal diagnosis: Acute Resp Fail, Sepsis, AF with RVR Interval history: Tele reviewed - AF 100-110s, no acute events overnight. Objective Last Vital Signs Temp 96.8 F L 09/26/20 03:50 Pulse 104 H 09/26/20 13:01 Resp 16 09/26/20 13:01 BP 128/78 09/26/20 13:01 Pulse Ox 98 09/26/20 13:01 - Physical Examination General: No Apparent Distress HEENT: Positive: Normocephaly, Mucus Membranes Moist Neck: Positive: neck supple. Negative: JVD/HJR Cardiac: Positive: irregularly irregular Lungs: Positive: Decreased Breath Sounds Neuro: Positive: Grossly Intact Abdomen: Positive: Soft Skin: Negative: Rash Musculoskeletal: No Pain Extremities: Present: lower extr. pulses. Absent: edema - Labs and Meds CBC 09/26/20 Range/Units 07:06 WBC 17.0 H (4.5-11.0) K/mm3 RBC 3.10 L (3.65-5.03) M/mm3 Hgb 9.6 L (11.8-15.2) gm/dl Hct 28.8 L (35.5-45.6) % Plt Count 153 (140-440) K/mm3 Comprehensive Metabolic Panel 09/26/20 Range/Units 07:06 Sodium 139 (137-145) mmol/L Potassium 3.9 (3.6-5.0) mmol/L Chloride 103.7 (98-107) mmol/L Carbon Dioxide 30 (22-30) mmol/L BUN 69 H (9-20) mg/dL Creatinine 2.2 H (0.8-1.3) mg/dL Glucose 107 H (75-100) mg/dL Calcium 9.1 (8.4-10.2) mg/dL - Imaging and Cardiology EKG: report reviewed, image reviewed Echo: report reviewed (09/18/2020 - EF 40-45%, mild concentric LVH, RV sys fxn mildly reduced, no significant valvular abnormality) - Telemetry EKG Rhythm: Atrial Fibrillation - EKG Supraventricular dysrhythmia: atrial fibrillation Myocardial infarction: septal NH (old age or ind, anterior NH (old age or i - Allied health notes Allied health notes reviewed: nursing
[2020-09-26] MEDS: DOLUTEGRAVIR 50 MG TAB PO SCH (13:35)
--- NOTE | 2020-09-26 19:32 | Progress Note ---
Assessment and Plan Acute hypoxemic respiratory failure. Atrial fibrillation with rapid ventricular response. Gram negative bacteremia Acute congestive heart failure exacerbation. Acute on chronic kidney injury. Anemia that is microcytic. Coagulopathy appears to be acquired. Respiratory alkalosis. Mild metabolic acidosis. Possible severe sepsis with shock due to a urinary tract infection. Urinary tract infection HIV COVID positive - Continue to titrate supplemental oxygen to keep O2 sast 89-92%, BIPAP qhs and prn - continue enteral nutrition at goal rate as tolerated, using NGT -continue with aspiration precautions, HOB >40 - complete antibiotics per ID recommendations. ART therapy per ID service - continue bronchodilators with pulmonary hygiene per RT - continue accuchecks with glycemic control per SSI (While critically ill target blood glucose of 140-180 mg/dL; avoid hypoglycemia) - avoid nephrotoxins, renally dose all medications - continue to avoid benzodiazepines, reduce the possibility of delirium - prn analgesia per pain score - Maintain of sleep-wake cycle, avoid delirium - Stress ulcer and VTE prophylaxis( Famotidine and therapeutic Apixaban) - PT/OT/ROM exercises - continue mobility, off loading, frequent turning per facility protocol to prevent pressure ulcers - Monitor hemodynamics closely -Follow up HIT panel results, still pending - continue other care per attending / other consultants COVID SPECIFIC INTERVENTIONS - Did not receive Remdesivir secondary to renal failure - Complete Dexamethasone - zinc and vitamin C supplementation - Monitor inflammatory markers per facility protocol - ferritin, D dimer, CRP - therapeutic anticoagulation per system Protocol based on d-dimer and clinical considerations- currently on Apixaban - Continue contact and airborne isolation per facility protocol Subjective Date of service: 09/26/20 Principal diagnosis: Acute Resp Fail, Sepsis, AF with RVR Interval history: Patient is seen today for: Acute hypoxemic respiratory failure; A-fib with RVR; AE-CHF; LOLI on CKD; Severe sepsis with shock; UTI Seen and examined at bedside; 24hour events reviewed; nursing and respiratory care staff consulted; no adverse overnight events reported to me; resting peacefully in bed; slowly improving reamains off vasopressors on midodrine; no emesis or overt aspiration; no documented fevers, BIPAP qhs. Mental status c hanges, but awake and alert, weak, tracking voice. remains HD dependant, now on 3L supplemental oxygen via NC Objective Vital Signs - 12hr 09/26/20 09/26/20 09/26/20 08:00 08:20 08:30 Temperature Pulse Rate 108 H 111 H Pulse Rate [ 110 H From Monitor] Pulse Rate [ 77 None] Respiratory 20 13 Rate Blood Pressure 114/59 114/71 O2 Sat by Pulse 100 99 94 Oximetry 09/26/20 09/26/20 09/26/20 09:00 09:31 10:00 Temperature Pulse Rate 125 H 110 H 117 H Pulse Rate [ From Monitor] Pulse Rate [ None] Respiratory 15 16 17 Rate Blood Pressure 103/73 118/70 98/63 O2 Sat by Pulse 100 100 Oximetry 09/26/20 09/26/20 09/26/20 10:31 11:00 11:31 Temperature Pulse Rate 110 H 108 H 94 H Pulse Rate [ From Monitor] Pulse Rate [ None] Respiratory 15 14 13 Rate Blood Pressure 106/73 91/70 91/70 O2 Sat by Pulse 99 78 L 100 Oximetry 09/26/20 09/26/20 09/26/20 12:00 12:01 12:31 Temperature 97.2 F L Pulse Rate 100 H 98 H Pulse Rate [ From Monitor] Pulse Rate [ 105 H None] Respiratory 12 12 Rate Blood Pressure 139/95 139/95 O2 Sat by Pulse 93 100 Oximetry 09/26/20 09/26/20 09/26/20 13:01 13:31 14:00 Temperature Pulse Rate 104 H 113 H 106 H Pulse Rate [ From Monitor] Pulse Rate [ None] Respiratory 16 14 12 Rate Blood Pressure 128/78 128/78 150/87 O2 Sat by Pulse 98 94 100 Oximetry 09/26/20 09/26/20 09/26/20 14:31 15:00 15:31 Temperature Pulse Rate 112 H 111 H 106 H Pulse Rate [ From Monitor] Pulse Rate [ None] Respiratory 14 13 13 Rate Blood Pressure 150/87 135/82 135/82 O2 Sat by Pulse 100 100 Oximetry 09/26/20 09/26/20 09/26/20 16:00 16:31 17:01 Temperature Pulse Rate 101 H 111 H 102 H Pulse Rate [ 110 H From Monitor] Pulse Rate [ None] Respiratory 16 13 13 Rate Blood Pressure 111/73 111/73 109/79 O2 Sat by Pulse 100 Oximetry 09/26/20 09/26/20 17:31 18:00 Temperature Pulse Rate 112 H 126 H Pulse Rate [ From Monitor] Pulse Rate [ None] Respiratory 11 L 10 L Rate Blood Pressure 109/79 122/91 O2 Sat by Pulse Oximetry Constitutional: appears uncomfortable, other (elderly male with mildly increased respiratory effort at rest) Eyes: non-icteric ENT: oropharynx moist Neck: supple, no lymphadenopathy, no JVD Effort: mildly labored Ascultation: Bilateral: rhonchi, other (right SCVL Trialysis catheter) Percussion: Bilateral: not dull Cardiovascular: irregular rhythm Gastrointestinal: normoactive bowel sounds, soft, non-tender, non-distended Integumentary: normal Extremities: no cyanosis, no edema, pulses normal, no ischemia or petechiae Neurologic: non-focal exam (grossly), pupils equal and round, CN II-XII normal, other (delirious) Psychiatric: other (delirious) CBC and BMP: 09/30/20 04:47 09/30/20 04:47 ABG, PT/INR, D-dimer: ABG ABG pH 7.508 (7.320-7.450) H 09/17/20 10:28 POC ABG pCO2 22.8 mmHg (32.0-48.0) L 09/17/20 10:28 POC ABG pO2 66.8 mmHg (83-108) L 09/17/20 10:28 POC ABG HCO3 17.7 09/17/20 10:28 ABG O2 Saturation 93.4 (0-100) 09/17/20 10:28 PT/INR, D-dimer PT 15.7 Sec. (12.2-14.9) H 09/24/20 12:13 INR 1.27 (0.87-1.13) H 09/24/20 12:13 D-Dimer 1772.86 ng/mlDDU (0-234) H 09/24/20 05:00 Abnormal lab findings: Abnormal Labs 09/17/20 09/17/20 09/17/20 10:28 10:47 10:47 WBC 11.1 H RBC 3.44 L Hgb 11.2 L Hct 32.8 L MCV 95 H MCH MCHC Plt Count Lymph % (Auto) [place] % (Auto) Lymph # (Auto) [place] # (Auto) Seg Neutrophils % Seg Neuts % (Manual) Lymphocytes % (Manual) 4.0 L Monocytes % (Manual) Nucleated RBC % Seg Neutrophils # Seg Neutrophils # Man 10.7 H Abs Lymphs (Manual) Lymphocytes # (Manual) 0.4 L PT 32.9 H INR 3.16 H APTT 51.1 H D-Dimer Heparin Anti-Xa Level ABG pH 7.508 H POC ABG pCO2 22.8 L POC ABG pO2 66.8 L ABG Oxyhemoglobin 92.7 L ABG Sodium 127.4 L ABG Potassium 4.7 H ABG Glucose 121 H Carboxyhemoglobin 0.4 L Sodium Chloride Carbon Dioxide BUN Creatinine Glucose POC Glucose Calcium Phosphorus Ferritin Total Bilirubin AST ALT Alkaline Phosphatase Lactate Dehydrogenase Total Creatine Kinase Troponin T C-Reactive Protein NT-Pro-B Natriuret Pep Total Protein Albumin Cholesterol LDL Cholesterol Direct HDL Cholesterol PTH Intact Arterial Blood Glucose 121 H Urine WBC (Auto) Urine Creatinine Lymph Enumerat CD4/CD8 Absolute CD3 Count Absolute CD4 Count % CD8 Cells Absolute CD8 Count Absolute CD19 Count Coronavirus (PCR) HIV-1 RNA PCR copies/ml HIV-1 RNA (PCR) log 09/17/20 09/17/20 09/17/20 10:47 10:47 13:54 WBC RBC Hgb Hct MCV MCH MCHC Plt Count Lymph % (Auto) [place] % (Auto) Lymph # (Auto) [place] # (Auto) Seg Neutrophils % Seg Neuts % (Manual) Lymphocytes % (Manual) Monocytes % (Manual) Nucleated RBC % Seg Neutrophils # Seg Neutrophils # Man Abs Lymphs (Manual) Lymphocytes # (Manual) PT INR APTT D-Dimer Heparin Anti-Xa Level ABG pH POC ABG pCO2 POC ABG pO2 ABG Oxyhemoglobin ABG Sodium ABG Potassium ABG Glucose Carboxyhemoglobin Sodium 125 L Chloride 95.3 L Carbon Dioxide 17 L BUN 64 H Creatinine 4.6 H D Glucose 104 H POC Glucose Calcium Phosphorus Ferritin Total Bilirubin AST 69 H ALT Alkaline Phosphatase Lactate Dehydrogenase Total Creatine Kinase Troponin T 0.061 H D 0.058 H C-Reactive Protein NT-Pro-B Natriuret Pep 01403 H Total Protein Albumin 1.9 L Cholesterol 48 L LDL Cholesterol Direct 4 L HDL Cholesterol 9 L PTH Intact Arterial Blood Glucose Urine WBC (Auto) Urine Creatinine Lymph Enumerat CD4/CD8 Absolute CD3 Count Absolute CD4 Count % CD8 Cells Absolute CD8 Count Absolute CD19 Count Coronavirus (PCR) HIV-1 RNA PCR copies/ml HIV-1 RNA (PCR) log 09/17/20 09/17/20 09/17/20 16:36 17:35 17:35 WBC RBC 3.25 L Hgb 10.7 L Hct 31.1 L MCV 96 H MCH 33 H MCHC Plt Count Lymph % (Auto) [place] % (Auto) Lymph # (Auto) [place] # (Auto) Seg Neutrophils % Seg Neuts % (Manual) Lymphocytes % (Manual) Monocytes % (Manual) Nucleated RBC % Seg Neutrophils # Seg Neutrophils # Man Abs Lymphs (Manual) Lymphocytes # (Manual) PT 31.9 H INR 3.04 H APTT 50.9 H D-Dimer Heparin Anti-Xa Level ABG pH POC ABG pCO2 POC ABG pO2 ABG Oxyhemoglobin ABG Sodium ABG Potassium ABG Glucose Carboxyhemoglobin Sodium Chloride Carbon Dioxide BUN Creatinine Glucose POC Glucose Calcium Phosphorus Ferritin Total Bilirubin AST ALT Alkaline Phosphatase Lactate Dehydrogenase Total Creatine Kinase Troponin T 0.057 H C-Reactive Protein NT-Pro-B Natriuret Pep Total Protein Albumin Cholesterol LDL Cholesterol Direct HDL Cholesterol PTH Intact Arterial Blood Glucose Urine WBC (Auto) Urine Creatinine Lymph Enumerat CD4/CD8 Absolute CD3 Count Absolute CD4 Count % CD8 Cells Absolute CD8 Count Absolute CD19 Count Coronavirus (PCR) HIV-1 RNA PCR copies/ml HIV-1 RNA (PCR) log 09/17/20 09/18/20 09/18/20 17:35 03:19 03:19 WBC RBC 3.32 L Hgb 10.9 L Hct 32.0 L MCV 96 H MCH 33 H MCHC Plt Count 138 L Lymph % (Auto) [place] % (Auto) Lymph # (Auto) [place] # (Auto) Seg Neutrophils % Seg Neuts % (Manual) 95.0 H Lymphocytes % (Manual) 3.0 L Monocytes % (Manual) Nucleated RBC % Seg Neutrophils # Seg Neutrophils # Man 8.1 H Abs Lymphs (Manual) Lymphocytes # (Manual) 0.3 L PT INR APTT D-Dimer Heparin Anti-Xa Level ABG pH POC ABG pCO2 POC ABG pO2 ABG Oxyhemoglobin ABG Sodium ABG Potassium ABG Glucose Carboxyhemoglobin Sodium Chloride Carbon Dioxide 16 L BUN 70 H Creatinine 4.6 H 4.7 H Glucose 104 H POC Glucose Calcium 8.2 L Phosphorus Ferritin Total Bilirubin 1.60 H AST 128 H ALT 67 H Alkaline Phosphatase Lactate Dehydrogenase Total Creatine Kinase Troponin T C-Reactive Protein NT-Pro-B Natriuret Pep Total Protein 5.2 L D Albumin 2.5 L Cholesterol LDL Cholesterol Direct HDL Cholesterol PTH Intact Arterial Blood Glucose Urine WBC (Auto) Urine Creatinine Lymph Enumerat CD4/CD8 Absolute CD3 Count Absolute CD4 Count % CD8 Cells Absolute CD8 Count Absolute CD19 Count Coronavirus (PCR) HIV-1 RNA PCR copies/ml HIV-1 RNA (PCR) log 09/18/20 09/18/20 09/18/20 09:39 12:00 12:00 WBC RBC Hgb Hct MCV MCH MCHC Plt Count Lymph % (Auto) [place] % (Auto) Lymph # (Auto) [place] # (Auto) Seg Neutrophils % Seg Neuts % (Manual) Lymphocytes % (Manual) Monocytes % (Manual) Nucleated RBC % Seg Neutrophils # Seg Neutrophils # Man Abs Lymphs (Manual) Lymphocytes # (Manual) PT INR APTT D-Dimer Heparin Anti-Xa Level ABG pH POC ABG pCO2 POC ABG pO2 ABG Oxyhemoglobin ABG Sodium ABG Potassium ABG Glucose Carboxyhemoglobin Sodium Chloride Carbon Dioxide BUN Creatinine Glucose POC Glucose Calcium Phosphorus Ferritin Total Bilirubin AST ALT Alkaline Phosphatase Lactate Dehydrogenase Total Creatine Kinase Troponin T C-Reactive Protein NT-Pro-B Natriuret Pep Total Protein Albumin Cholesterol LDL Cholesterol Direct HDL Cholesterol PTH Intact Arterial Blood Glucose Urine WBC (Auto) 71.0 H Urine Creatinine 61.0 H Lymph Enumerat CD4/CD8 Absolute CD3 Count Absolute CD4 Count % CD8 Cells Absolute CD8 Count Absolute CD19 Count Coronavirus (PCR) Positive A HIV-1 RNA PCR copies/ml HIV-1 RNA (PCR) log 09/18/20 09/18/20 09/18/20 15:07 15:07 18:33 WBC RBC Hgb 10.7 L Hct 31.3 L MCV MCH MCHC Plt Count Lymph % (Auto) [place] % (Auto) Lymph # (Auto) [place] # (Auto) Seg Neutrophils % Seg Neuts % (Manual) Lymphocytes % (Manual) Monocytes % (Manual) Nucleated RBC % Seg Neutrophils # Seg Neutrophils # Man Abs Lymphs (Manual) Lymphocytes # (Manual) PT 20.3 H INR 1.73 H APTT 40.8 H D-Dimer Heparin Anti-Xa Level 1.09 H ABG pH POC ABG pCO2 POC ABG pO2 ABG Oxyhemoglobin ABG Sodium ABG Potassium ABG Glucose Carboxyhemoglobin Sodium Chloride Carbon Dioxide BUN Creatinine Glucose POC Glucose Calcium Phosphorus Ferritin Total Bilirubin AST ALT Alkaline Phosphatase Lactate Dehydrogenase Total Creatine Kinase Troponin T C-Reactive Protein NT-Pro-B Natriuret Pep Total Protein Albumin Cholesterol LDL Cholesterol Direct HDL Cholesterol PTH Intact Arterial Blood Glucose Urine WBC (Auto) Urine Creatinine Lymph Enumerat CD4/CD8 Absolute CD3 Count Absolute CD4 Count % CD8 Cells Absolute CD8 Count Absolute CD19 Count Coronavirus (PCR) HIV-1 RNA PCR copies/ml HIV-1 RNA (PCR) log 09/19/20 09/19/20 09/19/20 03:30 03:30 03:30 WBC RBC 3.29 L Hgb 10.9 L Hct 30.9 L MCV MCH 33 H MCHC 35 H Plt Count Lymph % (Auto) [place] % (Auto) Lymph # (Auto) [place] # (Auto) Seg Neutrophils % Seg Neuts % (Manual) Lymphocytes % (Manual) Monocytes % (Manual) Nucleated RBC % Seg Neutrophils # Seg Neutrophils # Man Abs Lymphs (Manual) Lymphocytes # (Manual) PT INR APTT D-Dimer Heparin Anti-Xa Level ABG pH POC ABG pCO2 POC ABG pO2 ABG Oxyhemoglobin ABG Sodium ABG Potassium ABG Glucose Carboxyhemoglobin Sodium 133 L Chloride Carbon Dioxide 17 L BUN 94 H Creatinine 5.0 H Glucose 120 H POC Glucose Calcium Phosphorus 6.30 H Ferritin Total Bilirubin 2.40 H AST 163 H ALT 109 H Alkaline Phosphatase 160 H Lactate Dehydrogenase Total Creatine Kinase 20 L Troponin T C-Reactive Protein NT-Pro-B Natriuret Pep Total Protein 6.2 L Albumin 2.0 L Cholesterol LDL Cholesterol Direct HDL Cholesterol PTH Intact 161.4 H Arterial Blood Glucose Urine WBC (Auto) Urine Creatinine Lymph Enumerat CD4/CD8 Absolute CD3 Count Absolute CD4 Count % CD8 Cells Absolute CD8 Count Absolute CD19 Count Coronavirus (PCR) HIV-1 RNA PCR copies/ml HIV-1 RNA (PCR) log 09/19/20 09/19/20 09/19/20 06:35 13:35 13:35 WBC RBC Hgb Hct MCV MCH MCHC Plt Count Lymph % (Auto) [place] % (Auto) Lymph # (Auto) [place] # (Auto) Seg Neutrophils % Seg Neuts % (Manual) Lymphocytes % (Manual) Monocytes % (Manual) Nucleated RBC % Seg Neutrophils # Seg Neutrophils # Man Abs Lymphs (Manual) 223 L Lymphocytes # (Manual) PT INR APTT D-Dimer Heparin Anti-Xa Level ABG pH POC ABG pCO2 POC ABG pO2 ABG Oxyhemoglobin ABG Sodium ABG Potassium ABG Glucose Carboxyhemoglobin Sodium Chloride Carbon Dioxide BUN Creatinine Glucose POC Glucose 123 H Calcium Phosphorus Ferritin Total Bilirubin AST ALT Alkaline Phosphatase Lactate Dehydrogenase Total Creatine Kinase Troponin T C-Reactive Protein NT-Pro-B Natriuret Pep Total Protein Albumin Cholesterol LDL Cholesterol Direct HDL Cholesterol PTH Intact Arterial Blood Glucose Urine WBC (Auto) Urine Creatinine Lymph Enumerat CD4/CD8 0.70 L Absolute CD3 Count 175 L Absolute CD4 Count 70 L % CD8 Cells 45 H Absolute CD8 Count 101 L Absolute CD19 Count 26 L Coronavirus (PCR) HIV-1 RNA PCR copies/ml 67 H HIV-1 RNA (PCR) log 1.83 H 09/19/20 09/20/20 09/20/20 23:37 04:00 04:00 WBC RBC 3.43 L Hgb 11.1 L Hct 32.2 L MCV MCH MCHC Plt Count 131 L Lymph % (Auto) [place] % (Auto) Lymph # (Auto) [place] # (Auto) Seg Neutrophils % Seg Neuts % (Manual) 88.0 H Lymphocytes % (Manual) 3.0 L Monocytes % (Manual) 9.0 H Nucleated RBC % Seg Neutrophils # Seg Neutrophils # Man 8.2 H Abs Lymphs (Manual) Lymphocytes # (Manual) 0.3 L PT INR APTT D-Dimer Heparin Anti-Xa Level 0.10 L ABG pH POC ABG pCO2 POC ABG pO2 ABG Oxyhemoglobin ABG Sodium ABG Potassium ABG Glucose Carboxyhemoglobin Sodium Chloride Carbon Dioxide BUN Creatinine Glucose POC Glucose 135 H Calcium Phosphorus Ferritin Total Bilirubin AST ALT Alkaline Phosphatase Lactate Dehydrogenase Total Creatine Kinase Troponin T C-Reactive Protein NT-Pro-B Natriuret Pep Total Protein Albumin Cholesterol LDL Cholesterol Direct HDL Cholesterol PTH Intact Arterial Blood Glucose Urine WBC (Auto) Urine Creatinine Lymph Enumerat CD4/CD8 Absolute CD3 Count Absolute CD4 Count % CD8 Cells Absolute CD8 Count Absolute CD19 Count Coronavirus (PCR) HIV-1 RNA PCR copies/ml HIV-1 RNA (PCR) log 09/20/20 09/20/20 09/20/20 04:00 05:37 11:20 WBC RBC Hgb Hct MCV MCH MCHC Plt Count Lymph % (Auto) [place] % (Auto) Lymph # (Auto) [place] # (Auto) Seg Neutrophils % Seg Neuts % (Manual) Lymphocytes % (Manual) Monocytes % (Manual) Nucleated RBC % Seg Neutrophils # Seg Neutrophils # Man Abs Lymphs (Manual) Lymphocytes # (Manual) PT INR APTT D-Dimer Heparin Anti-Xa Level ABG pH POC ABG pCO2 POC ABG pO2 ABG Oxyhemoglobin ABG Sodium ABG Potassium ABG Glucose Carboxyhemoglobin Sodium Chloride Carbon Dioxide 16 L BUN 119 H Creatinine 6.2 H Glucose 136 H POC Glucose 137 H 108 H Calcium Phosphorus Ferritin Total Bilirubin AST ALT Alkaline Phosphatase Lactate Dehydrogenase Total Creatine Kinase Troponin T C-Reactive Protein NT-Pro-B Natriuret Pep Total Protein Albumin Cholesterol LDL Cholesterol Direct HDL Cholesterol PTH Intact Arterial Blood Glucose Urine WBC (Auto) Urine Creatinine Lymph Enumerat CD4/CD8 Absolute CD3 Count Absolute CD4 Count % CD8 Cells Absolute CD8 Count Absolute CD19 Count Coronavirus (PCR) HIV-1 RNA PCR copies/ml HIV-1 RNA (PCR) log 09/20/20 09/20/20 09/20/20 17:10 17:10 17:10 WBC RBC Hgb Hct MCV MCH MCHC Plt Count Lymph % (Auto) [place] % (Auto) Lymph # (Auto) [place] # (Auto) Seg Neutrophils % Seg Neuts % (Manual) Lymphocytes % (Manual) Monocytes % (Manual) Nucleated RBC % Seg Neutrophils # Seg Neutrophils # Man Abs Lymphs (Manual) Lymphocytes # (Manual) PT INR APTT D-Dimer 4271.58 H Heparin Anti-Xa Level ABG pH POC ABG pCO2 POC ABG pO2 ABG Oxyhemoglobin ABG Sodium ABG Potassium ABG Glucose Carboxyhemoglobin Sodium Chloride Carbon Dioxide BUN Creatinine 6.0 H Glucose POC Glucose Calcium Phosphorus Ferritin 696.6 H Total Bilirubin AST ALT Alkaline Phosphatase Lactate Dehydrogenase Total Creatine Kinase Troponin T C-Reactive Protein NT-Pro-B Natriuret Pep Total Protein Albumin Cholesterol LDL Cholesterol Direct HDL Cholesterol PTH Intact Arterial Blood Glucose Urine WBC (Auto) Urine Creatinine Lymph Enumerat CD4/CD8 Absolute CD3 Count Absolute CD4 Count % CD8 Cells Absolute CD8 Count Absolute CD19 Count Coronavirus (PCR) HIV-1 RNA PCR copies/ml HIV-1 RNA (PCR) log 09/20/20 09/20/20 09/20/20 17:10 18:21 23:14 WBC RBC Hgb Hct MCV MCH MCHC Plt Count Lymph % (Auto) [place] % (Auto) Lymph # (Auto) [place] # (Auto) Seg Neutrophils % Seg Neuts % (Manual) Lymphocytes % (Manual) Monocytes % (Manual) Nucleated RBC % Seg Neutrophils # Seg Neutrophils # Man Abs Lymphs (Manual) Lymphocytes # (Manual) PT INR APTT D-Dimer Heparin Anti-Xa Level ABG pH POC ABG pCO2 POC ABG pO2 ABG Oxyhemoglobin ABG Sodium ABG Potassium ABG Glucose Carboxyhemoglobin Sodium Chloride Carbon Dioxide BUN Creatinine Glucose POC Glucose 129 H 170 H Calcium Phosphorus Ferritin Total Bilirubin AST ALT Alkaline Phosphatase Lactate Dehydrogenase 209 H Total Creatine Kinase Troponin T C-Reactive Protein 10.60 H NT-Pro-B Natriuret Pep Total Protein Albumin Cholesterol LDL Cholesterol Direct HDL Cholesterol PTH Intact Arterial Blood Glucose Urine WBC (Auto) Urine Creatinine Lymph Enumerat CD4/CD8 Absolute CD3 Count Absolute CD4 Count % CD8 Cells Absolute CD8 Count Absolute CD19 Count Coronavirus (PCR) HIV-1 RNA PCR copies/ml HIV-1 RNA (PCR) log 09/21/20 09/21/20 09/21/20 05:35 17:09 23:18 WBC RBC Hgb Hct MCV MCH MCHC Plt Count Lymph % (Auto) [place] % (Auto) Lymph # (Auto) [place] # (Auto) Seg Neutrophils % Seg Neuts % (Manual) Lymphocytes % (Manual) Monocytes % (Manual) Nucleated RBC % Seg Neutrophils # Seg Neutrophils # Man Abs Lymphs (Manual) Lymphocytes # (Manual) PT INR APTT D-Dimer Heparin Anti-Xa Level ABG pH POC ABG pCO2 POC ABG pO2 ABG Oxyhemoglobin ABG Sodium ABG Potassium ABG Glucose Carboxyhemoglobin Sodium Chloride Carbon Dioxide BUN Creatinine Glucose POC Glucose 170 H 140 H 139 H Calcium Phosphorus Ferritin Total Bilirubin AST ALT Alkaline Phosphatase Lactate Dehydrogenase Total Creatine Kinase Troponin T C-Reactive Protein NT-Pro-B Natriuret Pep Total Protein Albumin Cholesterol LDL Cholesterol Direct HDL Cholesterol PTH Intact Arterial Blood Glucose Urine WBC (Auto) Urine Creatinine Lymph Enumerat CD4/CD8 Absolute CD3 Count Absolute CD4 Count % CD8 Cells Absolute CD8 Count Absolute CD19 Count Coronavirus (PCR) HIV-1 RNA PCR copies/ml HIV-1 RNA (PCR) log 09/21/20 09/21/20 09/21/20 Unknown Unknown Unknown WBC RBC 3.56 L Hgb 11.3 L Hct 33.2 L MCV MCH MCHC Plt Count 125 L Lymph % (Auto) [place] % (Auto) Lymph # (Auto) [place] # (Auto) Seg Neutrophils % Seg Neuts % (Manual) 90.0 H Lymphocytes % (Manual) 8.0 L Monocytes % (Manual) Nucleated RBC % 1.0 H Seg Neutrophils # Seg Neutrophils # Man 9.4 H Abs Lymphs (Manual) Lymphocytes # (Manual) 0.8 L PT 16.8 H INR 1.36 H APTT D-Dimer Heparin Anti-Xa Level ABG pH POC ABG pCO2 POC ABG pO2 ABG Oxyhemoglobin ABG Sodium ABG Potassium ABG Glucose Carboxyhemoglobin Sodium Chloride Carbon Dioxide BUN 83 H Creatinine 4.3 H Glucose 163 H POC Glucose Calcium Phosphorus Ferritin Total Bilirubin 2.40 H AST ALT 57 H Alkaline Phosphatase < 5 L Lactate Dehydrogenase Total Creatine Kinase Troponin T C-Reactive Protein NT-Pro-B Natriuret Pep Total Protein Albumin 1.9 L Cholesterol LDL Cholesterol Direct HDL Cholesterol PTH Intact Arterial Blood Glucose Urine WBC (Auto) Urine Creatinine Lymph Enumerat CD4/CD8 Absolute CD3 Count Absolute CD4 Count % CD8 Cells Absolute CD8 Count Absolute CD19 Count Coronavirus (PCR) HIV-1 RNA PCR copies/ml HIV-1 RNA (PCR) log 09/22/20 09/22/20 09/22/20 05:38 05:38 05:38 WBC 15.8 H RBC 3.36 L Hgb 10.8 L Hct 31.0 L MCV MCH MCHC 35 H Plt Count 68 L Lymph % (Auto) 3.1 L [place] % (Auto) 10.7 H Lymph # (Auto) 0.5 L [place] # (Auto) 1.7 H Seg Neutrophils % 85.9 H Seg Neuts % (Manual) Lymphocytes % (Manual) Monocytes % (Manual) Nucleated RBC % Seg Neutrophils # 13.6 H Seg Neutrophils # Man Abs Lymphs (Manual) Lymphocytes # (Manual) PT INR APTT D-Dimer 3281.49 H Heparin Anti-Xa Level ABG pH POC ABG pCO2 POC ABG pO2 ABG Oxyhemoglobin ABG Sodium ABG Potassium ABG Glucose Carboxyhemoglobin Sodium Chloride Carbon Dioxide BUN 61 H Creatinine 3.1 H Glucose 129 H POC Glucose Calcium Phosphorus Ferritin Total Bilirubin AST ALT Alkaline Phosphatase Lactate Dehydrogenase 277 H Total Creatine Kinase Troponin T C-Reactive Protein 6.60 H NT-Pro-B Natriuret Pep Total Protein Albumin Cholesterol LDL Cholesterol Direct HDL Cholesterol PTH Intact Arterial Blood Glucose Urine WBC (Auto) Urine Creatinine Lymph Enumerat CD4/CD8 Absolute CD3 Count Absolute CD4 Count % CD8 Cells Absolute CD8 Count Absolute CD19 Count Coronavirus (PCR) HIV-1 RNA PCR copies/ml HIV-1 RNA (PCR) log 09/22/20 09/22/20 09/22/20 05:38 05:44 11:26 WBC RBC Hgb Hct MCV MCH MCHC Plt Count Lymph % (Auto) [place] % (Auto) Lymph # (Auto) [place] # (Auto) Seg Neutrophils % Seg Neuts % (Manual) Lymphocytes % (Manual) Monocytes % (Manual) Nucleated RBC % Seg Neutrophils # Seg Neutrophils # Man Abs Lymphs (Manual) Lymphocytes # (Manual) PT INR APTT D-Dimer Heparin Anti-Xa Level ABG pH POC ABG pCO2 POC ABG pO2 ABG Oxyhemoglobin ABG Sodium ABG Potassium ABG Glucose Carboxyhemoglobin Sodium Chloride Carbon Dioxide BUN Creatinine Glucose POC Glucose 112 H 131 H Calcium Phosphorus Ferritin 927.8 H Total Bilirubin AST ALT Alkaline Phosphatase Lactate Dehydrogenase Total Creatine Kinase Troponin T C-Reactive Protein NT-Pro-B Natriuret Pep Total Protein Albumin Cholesterol LDL Cholesterol Direct HDL Cholesterol PTH Intact Arterial Blood Glucose Urine WBC (Auto) Urine Creatinine Lymph Enumerat CD4/CD8 Absolute CD3 Count Absolute CD4 Count % CD8 Cells Absolute CD8 Count Absolute CD19 Count Coronavirus (PCR) HIV-1 RNA PCR copies/ml HIV-1 RNA (PCR) log 09/22/20 09/22/20 09/22/20 15:12 15:12 16:53 WBC RBC Hgb Hct MCV MCH MCHC Plt Count Lymph % (Auto) [place] % (Auto) Lymph # (Auto) [place] # (Auto) Seg Neutrophils % Seg Neuts % (Manual) Lymphocytes % (Manual) Monocytes % (Manual) Nucleated RBC % Seg Neutrophils # Seg Neutrophils # Man Abs Lymphs (Manual) Lymphocytes # (Manual) PT 17.3 H INR 1.42 H APTT D-Dimer Heparin Anti-Xa Level ABG pH POC ABG pCO2 POC ABG pO2 ABG Oxyhemoglobin ABG Sodium ABG Potassium ABG Glucose Carboxyhemoglobin Sodium Chloride Carbon Dioxide BUN Creatinine 3.0 H Glucose POC Glucose 138 H Calcium Phosphorus Ferritin Total Bilirubin AST ALT Alkaline Phosphatase Lactate Dehydrogenase Total Creatine Kinase Troponin T C-Reactive Protein NT-Pro-B Natriuret Pep Total Protein Albumin Cholesterol LDL Cholesterol Direct HDL Cholesterol PTH Intact Arterial Blood Glucose Urine WBC (Auto) Urine Creatinine Lymph Enumerat CD4/CD8 Absolute CD3 Count Absolute CD4 Count % CD8 Cells Absolute CD8 Count Absolute CD19 Count Coronavirus (PCR) HIV-1 RNA PCR copies/ml HIV-1 RNA (PCR) log 09/22/20 09/23/20 09/23/20 23:55 04:36 04:36 WBC 14.2 H RBC 3.05 L Hgb 9.8 L Hct 28.4 L MCV MCH MCHC Plt Count 39 L Lymph % (Auto) [place] % (Auto) Lymph # (Auto) [place] # (Auto) Seg Neutrophils % Seg Neuts % (Manual) 91.0 H Lymphocytes % (Manual) 2.0 L Monocytes % (Manual) Nucleated RBC % Seg Neutrophils # Seg Neutrophils # Man 12.9 H Abs Lymphs (Manual) Lymphocytes # (Manual) 0.3 L PT INR APTT D-Dimer Heparin Anti-Xa Level ABG pH POC ABG pCO2 POC ABG pO2 ABG Oxyhemoglobin ABG Sodium ABG Potassium ABG Glucose Carboxyhemoglobin Sodium Chloride Carbon Dioxide BUN 76 H Creatinine 3.1 H Glucose 157 H POC Glucose 171 H Calcium Phosphorus Ferritin Total Bilirubin AST ALT Alkaline Phosphatase Lactate Dehydrogenase Total Creatine Kinase Troponin T C-Reactive Protein NT-Pro-B Natriuret Pep Total Protein Albumin Cholesterol LDL Cholesterol Direct HDL Cholesterol PTH Intact Arterial Blood Glucose Urine WBC (Auto) Urine Creatinine Lymph Enumerat CD4/CD8 Absolute CD3 Count Absolute CD4 Count % CD8 Cells Absolute CD8 Count Absolute CD19 Count Coronavirus (PCR) HIV-1 RNA PCR copies/ml HIV-1 RNA (PCR) log 09/23/20 09/23/20 09/23/20 05:41 11:38 17:09 WBC RBC Hgb Hct MCV MCH MCHC Plt Count Lymph % (Auto) [place] % (Auto) Lymph # (Auto) [place] # (Auto) Seg Neutrophils % Seg Neuts % (Manual) Lymphocytes % (Manual) Monocytes % (Manual) Nucleated RBC % Seg Neutrophils # Seg Neutrophils # Man Abs Lymphs (Manual) Lymphocytes # (Manual) PT INR APTT D-Dimer Heparin Anti-Xa Level ABG pH POC ABG pCO2 POC ABG pO2 ABG Oxyhemoglobin ABG Sodium ABG Potassium ABG Glucose Carboxyhemoglobin Sodium Chloride Carbon Dioxide BUN Creatinine Glucose POC Glucose 136 H 141 H 128 H Calcium Phosphorus Ferritin Total Bilirubin AST ALT Alkaline Phosphatase Lactate Dehydrogenase Total Creatine Kinase Troponin T C-Reactive Protein NT-Pro-B Natriuret Pep Total Protein Albumin Cholesterol LDL Cholesterol Direct HDL Cholesterol PTH Intact Arterial Blood Glucose Urine WBC (Auto) Urine Creatinine Lymph Enumerat CD4/CD8 Absolute CD3 Count Absolute CD4 Count % CD8 Cells Absolute CD8 Count Absolute CD19 Count Coronavirus (PCR) HIV-1 RNA PCR copies/ml HIV-1 RNA (PCR) log 09/23/20 09/24/20 09/24/20 23:51 05:00 05:00 WBC 24.2 H RBC 3.23 L Hgb 10.0 L Hct 29.7 L MCV MCH MCHC Plt Count 74 L Lymph % (Auto) [place] % (Auto) Lymph # (Auto) [place] # (Auto) Seg Neutrophils % Seg Neuts % (Manual) Lymphocytes % (Manual) Monocytes % (Manual) Nucleated RBC % Seg Neutrophils # Seg Neutrophils # Man Abs Lymphs (Manual) Lymphocytes # (Manual) PT INR APTT D-Dimer 1772.86 H Heparin Anti-Xa Level ABG pH POC ABG pCO2 POC ABG pO2 ABG Oxyhemoglobin ABG Sodium ABG Potassium ABG Glucose Carboxyhemoglobin Sodium Chloride Carbon Dioxide BUN Creatinine Glucose POC Glucose 128 H Calcium Phosphorus Ferritin Total Bilirubin AST ALT Alkaline Phosphatase Lactate Dehydrogenase Total Creatine Kinase Troponin T C-Reactive Protein NT-Pro-B Natriuret Pep Total Protein Albumin Cholesterol LDL Cholesterol Direct HDL Cholesterol PTH Intact Arterial Blood Glucose Urine WBC (Auto) Urine Creatinine Lymph Enumerat CD4/CD8 Absolute CD3 Count Absolute CD4 Count % CD8 Cells Absolute CD8 Count Absolute CD19 Count Coronavirus (PCR) HIV-1 RNA PCR copies/ml HIV-1 RNA (PCR) log 09/24/20 09/24/20 09/24/20 05:00 05:00 05:12 WBC RBC Hgb Hct MCV MCH MCHC Plt Count Lymph % (Auto) [place] % (Auto) Lymph # (Auto) [place] # (Auto) Seg Neutrophils % Seg Neuts % (Manual) Lymphocytes % (Manual) Monocytes % (Manual) Nucleated RBC % Seg Neutrophils # Seg Neutrophils # Man Abs Lymphs (Manual) Lymphocytes # (Manual) PT INR APTT D-Dimer Heparin Anti-Xa Level ABG pH POC ABG pCO2 POC ABG pO2 ABG Oxyhemoglobin ABG Sodium ABG Potassium ABG Glucose Carboxyhemoglobin Sodium Chloride 107.1 H Carbon Dioxide BUN 90 H Creatinine 3.1 H Glucose 118 H POC Glucose 114 H Calcium Phosphorus Ferritin 1190.0 H Total Bilirubin AST ALT Alkaline Phosphatase Lactate Dehydrogenase 276 H Total Creatine Kinase Troponin T C-Reactive Protein 4.20 H NT-Pro-B Natriuret Pep Total Protein Albumin Cholesterol LDL Cholesterol Direct HDL Cholesterol PTH Intact Arterial Blood Glucose Urine WBC (Auto) Urine Creatinine Lymph Enumerat CD4/CD8 Absolute CD3 Count Absolute CD4 Count % CD8 Cells Absolute CD8 Count Absolute CD19 Count Coronavirus (PCR) HIV-1 RNA PCR copies/ml HIV-1 RNA (PCR) log 09/24/20 09/24/20 09/24/20 11:25 12:09 12:13 WBC 20.8 H RBC 3.04 L Hgb 9.5 L Hct 28.0 L MCV MCH MCHC Plt Count 78 L Lymph % (Auto) [place] % (Auto) Lymph # (Auto) [place] # (Auto) Seg Neutrophils % Seg Neuts % (Manual) Lymphocytes % (Manual) Monocytes % (Manual) Nucleated RBC % Seg Neutrophils # Seg Neutrophils # Man Abs Lymphs (Manual) Lymphocytes # (Manual) PT INR APTT D-Dimer Heparin Anti-Xa Level ABG pH POC ABG pCO2 POC ABG pO2 ABG Oxyhemoglobin ABG Sodium ABG Potassium ABG Glucose Carboxyhemoglobin Sodium Chloride Carbon Dioxide BUN Creatinine 3.1 H Glucose POC Glucose 110 H Calcium Phosphorus Ferritin Total Bilirubin AST ALT Alkaline Phosphatase Lactate Dehydrogenase Total Creatine Kinase Troponin T C-Reactive Protein NT-Pro-B Natriuret Pep Total Protein Albumin Cholesterol LDL Cholesterol Direct HDL Cholesterol PTH Intact Arterial Blood Glucose Urine WBC (Auto) Urine Creatinine Lymph Enumerat CD4/CD8 Absolute CD3 Count Absolute CD4 Count % CD8 Cells Absolute CD8 Count Absolute CD19 Count Coronavirus (PCR) HIV-1 RNA PCR copies/ml HIV-1 RNA (PCR) log 09/24/20 09/24/20 09/24/20 12:13 17:41 23:34 WBC RBC Hgb Hct MCV MCH MCHC Plt Count Lymph % (Auto) [place] % (Auto) Lymph # (Auto) [place] # (Auto) Seg Neutrophils % Seg Neuts % (Manual) Lymphocytes % (Manual) Monocytes % (Manual) Nucleated RBC % Seg Neutrophils # Seg Neutrophils # Man Abs Lymphs (Manual) Lymphocytes # (Manual) PT 15.7 H INR 1.27 H APTT D-Dimer Heparin Anti-Xa Level ABG pH POC ABG pCO2 POC ABG pO2 ABG Oxyhemoglobin ABG Sodium ABG Potassium ABG Glucose Carboxyhemoglobin Sodium Chloride Carbon Dioxide BUN Creatinine Glucose POC Glucose 133 H 113 H Calcium Phosphorus Ferritin Total Bilirubin AST ALT Alkaline Phosphatase Lactate Dehydrogenase Total Creatine Kinase Troponin T C-Reactive Protein NT-Pro-B Natriuret Pep Total Protein Albumin Cholesterol LDL Cholesterol Direct HDL Cholesterol PTH Intact Arterial Blood Glucose Urine WBC (Auto) Urine Creatinine Lymph Enumerat CD4/CD8 Absolute CD3 Count Absolute CD4 Count % CD8 Cells Absolute CD8 Count Absolute CD19 Count Coronavirus (PCR) HIV-1 RNA PCR copies/ml HIV-1 RNA (PCR) log 09/25/20 09/25/20 09/25/20 06:40 06:40 10:45 WBC 20.7 H RBC 3.33 L Hgb 10.2 L Hct 31.3 L MCV MCH MCHC Plt Count 139 L Lymph % (Auto) [place] % (Auto) Lymph # (Auto) [place] # (Auto) Seg Neutrophils % Seg Neuts % (Manual) Lymphocytes % (Manual) Monocytes % (Manual) Nucleated RBC % Seg Neutrophils # Seg Neutrophils # Man Abs Lymphs (Manual) Lymphocytes # (Manual) PT INR APTT D-Dimer Heparin Anti-Xa Level ABG pH POC ABG pCO2 POC ABG pO2 ABG Oxyhemoglobin ABG Sodium ABG Potassium ABG Glucose Carboxyhemoglobin Sodium Chloride 109.0 H Carbon Dioxide BUN 98 H Creatinine 3.0 H 3.0 H Glucose 111 H POC Glucose Calcium Phosphorus Ferritin Total Bilirubin AST ALT Alkaline Phosphatase Lactate Dehydrogenase Total Creatine Kinase Troponin T C-Reactive Protein NT-Pro-B Natriuret Pep Total Protein Albumin Cholesterol LDL Cholesterol Direct HDL Cholesterol PTH Intact Arterial Blood Glucose Urine WBC (Auto) Urine Creatinine Lymph Enumerat CD4/CD8 Absolute CD3 Count Absolute CD4 Count % CD8 Cells Absolute CD8 Count Absolute CD19 Count Coronavirus (PCR) HIV-1 RNA PCR copies/ml HIV-1 RNA (PCR) log 09/25/20 09/25/20 09/25/20 12:45 18:03 23:29 WBC RBC Hgb Hct MCV MCH MCHC Plt Count Lymph % (Auto) [place] % (Auto) Lymph # (Auto) [place] # (Auto) Seg Neutrophils % Seg Neuts % (Manual) Lymphocytes % (Manual) Monocytes % (Manual) Nucleated RBC % Seg Neutrophils # Seg Neutrophils # Man Abs Lymphs (Manual) Lymphocytes # (Manual) PT INR APTT D-Dimer Heparin Anti-Xa Level ABG pH POC ABG pCO2 POC ABG pO2 ABG Oxyhemoglobin ABG Sodium ABG Potassium ABG Glucose Carboxyhemoglobin Sodium Chloride Carbon Dioxide BUN Creatinine Glucose POC Glucose 108 H 114 H 111 H Calcium Phosphorus Ferritin Total Bilirubin AST ALT Alkaline Phosphatase Lactate Dehydrogenase Total Creatine Kinase Troponin T C-Reactive Protein NT-Pro-B Natriuret Pep Total Protein Albumin Cholesterol LDL Cholesterol Direct HDL Cholesterol PTH Intact Arterial Blood Glucose Urine WBC (Auto) Urine Creatinine Lymph Enumerat CD4/CD8 Absolute CD3 Count Absolute CD4 Count % CD8 Cells Absolute CD8 Count Absolute CD19 Count Coronavirus (PCR) HIV-1 RNA PCR copies/ml HIV-1 RNA (PCR) log 09/26/20 09/26/20 09/26/20 05:00 07:06 07:06 WBC 17.0 H RBC 3.10 L Hgb 9.6 L Hct 28.8 L MCV MCH MCHC Plt Count Lymph % (Auto) [place] % (Auto) Lymph # (Auto) [place] # (Auto) Seg Neutrophils % Seg Neuts % (Manual) Lymphocytes % (Manual) Monocytes % (Manual) Nucleated RBC % Seg Neutrophils # Seg Neutrophils # Man Abs Lymphs (Manual) Lymphocytes # (Manual) PT INR APTT D-Dimer Heparin Anti-Xa Level ABG pH POC ABG pCO2 POC ABG pO2 ABG Oxyhemoglobin ABG Sodium ABG Potassium ABG Glucose Carboxyhemoglobin Sodium Chloride Carbon Dioxide BUN 69 H Creatinine 2.2 H Glucose 107 H POC Glucose 115 H Calcium Phosphorus Ferritin Total Bilirubin AST ALT Alkaline Phosphatase Lactate Dehydrogenase Total Creatine Kinase Troponin T C-Reactive Protein NT-Pro-B Natriuret Pep Total Protein Albumin Cholesterol LDL Cholesterol Direct HDL Cholesterol PTH Intact Arterial Blood Glucose Urine WBC (Auto) Urine Creatinine Lymph Enumerat CD4/CD8 Absolute CD3 Count Absolute CD4 Count % CD8 Cells Absolute CD8 Count Absolute CD19 Count Coronavirus (PCR) HIV-1 RNA PCR copies/ml HIV-1 RNA (PCR) log Allied health notes reviewed: nursing
[2020-09-27] MEDS: ACETAMINOPHEN 325 MG TAB PO PRN ×2 (04:20→12:41)
[2020-09-27 04:59] LABS: Eosinophils % (Auto) 0.1 % (0.0-4.3); Hematocrit 25.8 % (35.5-45.6); Hemoglobin 8.6 gm/dl (11.8-15.2); Lymphocytes # (Auto) 0.6 K/mm3 (1.2-5.4); Lymphocytes % (Auto) 4.3 % (13.4-35.0); Mean Corpuscular HGB Conc 33 % (32-34); Mean Corpuscular Volume 95 fl (84-94); Monocytes # (Auto) 0.9 K/mm3 (0.0-0.8); Platelet Count 175 K/mm3 (140-440); Red Blood Count 2.72 M/mm3 (3.65-5.03); Red Cell Distribution Width 13.4 % (13.2-15.2)
[2020-09-27 05:07] LABS: Calcium 8.9 mg/dL (8.4-10.2)
[2020-09-27] MEDS: MIDODRINE 5 MG TAB PO SCH ×3 (07:29→15:07)
[2020-09-27 09:03] LABS: Heparin-Induced Platelet Antib Weak Positive (Negative); Unfractionated Heparin Negative (Negative)
--- NOTE | 2020-09-27 09:18 | Progress Note ---
Assessment and Plan 1. Acute kidney injury: Vasomotor OLLI in the setting of shock. ATN likely. Renal US negative for hydro. Multiple bladder scan negative. Patient require hemodialysis due to significant decline in the renal function. Hemodialysis: 09/20, 09/21, 09/25. Monitor renal function. Renal prognosis is guarded. Avoid nephrotoxic agents. Meds dosage based on GFR. Monitor for STEREOTYPER needs. 2. FEN: Metabolic acidosis, improved, monitor. Monitor volume status and lytes. 3. Acute hypoxic respiratory failure: Covid test positive. Supplemental O2. 4. Acute CHF: Echocardiogram: EF 40-45%. CHF orderset / pathway. Monitor. 5. Atrial fibrillation with RVR: On Amio. Followed by Cards. 6. Elevated troponin: Trend. Followed by Cards. 7. Coagulopathy: Trend. 8. Shock / Hypotension: Multifactorial, monitor. Off pressors. 9. Elevated Transaminases: Improving. 10. Metabolic encephalopathy: Monitor. 11. HIV. 12. Anemia, POA: Monitor. Subjective: Patient was seen and examined at the bedside. Objective: General appearance: well-developed, appears stated age, no distress, on NC O2 HEENT: ATNC, L pupil dilated Neck: trachea midline Respiratory: bilateral diminished breath sounds Heart: irregular, S1S2, no murmur Gastrointestinal: soft, normoactive bowel sounds, not tender Integumentary: no obvious rash Ext: no edema Neurologic: lethargic, non-verbal, not following any command Hemodialysis access: R subclavian catheter Subjective Date of service: 09/27/20 Principal diagnosis: Acute Resp Fail, Sepsis, AF with RVR Objective - Vital Signs Vital signs: Vital Signs - 12hr 09/26/20 09/26/20 09/26/20 21:29 21:30 21:31 Temperature Pulse Rate 94 H 107 H Pulse Rate [ From Monitor] Respiratory 14 15 Rate Blood Pressure 140/95 140/95 O2 Sat by Pulse 100 Oximetry 09/26/20 09/26/20 09/26/20 21:47 22:00 22:01 Temperature Pulse Rate 105 H 96 H 93 H Pulse Rate [ From Monitor] Respiratory 11 L 12 11 L Rate Blood Pressure 140/95 143/82 143/82 O2 Sat by Pulse 100 100 99 Oximetry 09/26/20 09/26/20 09/26/20 22:29 22:31 23:00 Temperature Pulse Rate 100 H 89 Pulse Rate [ From Monitor] Respiratory 12 13 13 Rate Blood Pressure 143/82 137/95 O2 Sat by Pulse 100 100 Oximetry 09/26/20 09/27/20 09/27/20 23:31 00:00 00:28 Temperature 97.5 F L Pulse Rate 83 94 H 90 Pulse Rate [ From Monitor] Respiratory 13 13 Rate Blood Pressure 137/95 122/67 O2 Sat by Pulse 100 99 Oximetry 09/27/20 09/27/20 09/27/20 00:31 01:01 01:31 Temperature Pulse Rate 107 H 105 H 99 H Pulse Rate [ From Monitor] Respiratory 13 12 13 Rate Blood Pressure 137/95 107/58 107/58 O2 Sat by Pulse 92 95 99 Oximetry 09/27/20 09/27/20 09/27/20 02:00 02:31 04:00 Temperature Pulse Rate 85 89 86 Pulse Rate [ From Monitor] Respiratory 14 13 12 Rate Blood Pressure 99/66 99/66 118/68 O2 Sat by Pulse 100 100 100 Oximetry 09/27/20 09/27/20 09/27/20 04:02 04:04 04:20 Temperature Pulse Rate 85 95 H Pulse Rate [ From Monitor] Respiratory 11 L 11 L Rate Blood Pressure 118/68 O2 Sat by Pulse 100 Oximetry 09/27/20 09/27/20 09/27/20 04:31 04:45 05:00 Temperature 97.2 F L Pulse Rate 92 H 86 Pulse Rate [ From Monitor] Respiratory 10 L 15 Rate Blood Pressure 116/91 121/80 O2 Sat by Pulse 100 100 Oximetry 09/27/20 09/27/20 09/27/20 05:30 06:00 06:31 Temperature Pulse Rate 106 H 107 H 96 H Pulse Rate [ From Monitor] Respiratory 12 9 L 15 Rate Blood Pressure 121/80 129/99 129/99 O2 Sat by Pulse 100 100 100 Oximetry 09/27/20 09/27/20 09/27/20 07:00 07:31 08:00 Temperature 98.4 F Pulse Rate 102 H 81 101 H Pulse Rate [ 98 H From Monitor] Respiratory 12 10 L 13 Rate Blood Pressure 105/65 129/99 O2 Sat by Pulse 100 99 99 Oximetry 09/27/20 09/27/20 09/27/20 08:01 08:31 09:01 Temperature Pulse Rate 94 H 116 H 114 H Pulse Rate [ From Monitor] Respiratory 10 L 12 12 Rate Blood Pressure 146/84 146/84 132/87 O2 Sat by Pulse 97 99 99 Oximetry 09/27/20 09:03 Temperature Pulse Rate Pulse Rate [ From Monitor] Respiratory Rate Blood Pressure O2 Sat by Pulse 100 Oximetry - Lab 09/27/20 04:00 09/27/20 05:00 Most recent lab results ABG pH 7.508 (7.320-7.450) H 09/17/20 10:28 ABG O2 Saturation 93.4 (0-100) 09/17/20 10:28 Calcium 8.9 mg/dL (8.4-10.2) 09/27/20 04:00 Phosphorus 2.90 mg/dL (2.5-4.5) 09/26/20 07:06 Magnesium 1.70 mg/dL (1.7-2.3) 09/26/20 07:06 Urine Creatinine 61.0 mg/dL (0.1-20.0) H 09/18/20 12:00 Urine Sodium 62 mmol/L 09/18/20 12:00 Medications & Allergies - Medications Allergies/Adverse Reactions: Allergies No Known Allergies Allergy (Unverified 09/15/20 06:37) Home Medications: Home Medications Medication Instructions Recorded Confirmed Last Taken Type AtorvaSTATin [Lipitor] 20 mg PO QHS 09/18/20 09/18/20 Unknown History Dolutegravir [Tivicay] 50 mg PO DAILY 09/18/20 09/18/20 Unknown History Emtricitabine/Tenofov Alafenam 1 tab PO DAILY 09/18/20 09/18/20 Unknown History [Descovy 200-25 mg (Nf)] Rivaroxaban [Xarelto] 15 mg PO QDAY 09/18/20 09/18/20 Unknown History allopurinoL [Zyloprim] 300 mg PO QDAY 09/18/20 09/18/20 Unknown History carvediloL [Coreg] 25 mg PO BID 09/18/20 09/18/20 Unknown History lisinopriL [Lisinopril] 20 mg PO DAILY 09/18/20 09/18/20 Unknown History Active Medications: Generic Name Dose Route Start Last Admin Trade Name Freq PRN Reason Stop Dose Admin Acetaminophen 650 mg 09/17/20 13:52 09/27/20 04:20 Acetaminophen 325 Mg Tab PO 650 mg Q4H PRN Administration Pain MILD(1-3)/Fever >100.5/ANGEL Albuterol 2.5 mg 09/17/20 13:52 09/17/20 20:47 Albuterol 2.5 Mg/3 Ml Nebu IH 2.5 mg Q4HRT PRN Administration Shortness Of Breath Amiodarone HCl 200 mg 09/24/20 22:00 09/26/20 21:29 Amiodarone 200 Mg Tab PO 200 mg BID EDIE Administration Lipase/Protease/Amylase 1 each 09/20/20 13:10 Lipase 10,500/Protease 25,000/Amylase 43,750 (Units) Dr Patrick FEEDTUBE PRN PRN For Clogged Feeding Tube Apixaban 2.5 mg 09/24/20 12:00 09/26/20 21:29 Apixaban 2.5 Mg Tab PO 2.5 mg Q12HR EDIE Administration Protocol Ascorbic Acid 500 mg 09/20/20 22:00 09/26/20 21:29 Ascorbic Acid 500 Mg Tab PO 500 mg BID EDIE Administration Cholecalciferol 1,000 unit 09/21/20 10:00 09/26/20 09:08 Cholecalciferol (Vit D3) 1000 Unit (25 Mcg) Tab PO 1,000 unit QDAY EDIE Administration Dexamethasone 6 mg 09/20/20 17:00 09/26/20 09:06 Dexamethasone 4 Mg Tab PO 09/29/20 10:01 6 mg QDAY EDIE Administration Emtricitabine 200 mg 09/20/20 12:00 09/24/20 11:00 Emtricitabine 200 Mg Cap PO 200 mg Q96H EDIE Administration Famotidine 20 mg 09/24/20 10:00 09/26/20 09:07 Famotidine 20 Mg Tab PO 20 mg DAILY EDIE Administration Heparin Sodium (Porcine) 3,000 unit 09/20/20 10:06 Heparin 10,000 Units/10 Ml Vial IV VIRGIL PRN hemodialysis Sodium Chloride 100 mls @ 999 mls/hr 09/20/20 10:06 Nacl 0.9% IV VIRGIL PRN Hypotension Ceftriaxone Sodium 2 gm in 100 mls @ 200 mls/hr 09/22/20 13:00 09/26/20 09:05 Rocephin/Ns 2 Gm/100 Ml IV 09/28/20 10:29 200 mls/hr Q24HR EDIE Administration Protocol Metoprolol Tartrate 5 mg 09/19/20 19:06 09/24/20 10:59 Metoprolol Tartrate 5 Mg/5 Ml Inj IV 5 mg Q8HR PRN Administration HR > 135 Minute Metoprolol Tartrate 25 mg 09/24/20 22:00 09/26/20 21:30 Metoprolol Tartrate 25 Mg Tab PO 25 mg BID EDIE Administration Midodrine 5 mg 09/22/20 12:00 09/27/20 07:29 Midodrine 5 Mg Tab PO 5 mg TID@0800,1200,1600 EDIE Administration Ondansetron HCl 4 mg 09/17/20 13:52 Ondansetron 4 Mg/2 Ml Inj IV Q8H PRN Nausea And Vomiting Oxycodone HCl 5 mg 09/21/20 13:14 09/26/20 09:07 Oxycodone 5 Mg Tab PO 5 mg Q6H PRN Administration Pain, Moderate (4-6) Simple Syrup 15 ml 09/20/20 13:10 Simple Syrup 15 Ml FEEDTUBE PRN PRN Hypoglycemia Simple Syrup 30 ml 09/20/20 13:10 Simple Syrup 15 Ml FEEDTUBE PRN PRN Hypoglycemia Sodium Bicarbonate 325 mg 09/20/20 13:10 Sodium Bicarbonate 325 Mg Tab FEEDTUBE PRN PRN For Clogged Feeding Tube Sodium Chloride 10 ml 09/17/20 22:00 09/26/20 21:30 Sodium Chloride 0.9% 10 Ml Flush Syringe IV 10 ml BID EDIE Administration Sodium Chloride 10 ml 09/17/20 13:52 09/24/20 09:15 Sodium Chloride 0.9% 10 Ml Flush Syringe IV 10 ml PRN PRN Administration LINE FLUSH Tenofovir Disoproxil Fumarate 300 mg 09/20/20 22:00 09/20/20 22:25 Tenofovir 300 Mg Tab PO 300 mg Mo EDIE Administration Zinc Sulfate 220 mg 09/21/20 10:00 09/26/20 09:07 Zinc Sulfate 220 Mg Cap PO 220 mg QDAY EDIE Administration
[2020-09-27] MEDS: ZINC SULFATE 220 MG CAP PO SCH (09:21)
[2020-09-27] MEDS: CHOLECALCIFEROL (VIT D3) 1000 UNIT (25 mcg) TAB PO SCH (09:21)
[2020-09-27] MEDS: APIXABAN 2.5 MG TAB PO SCH ×2 (09:22→21:38)
[2020-09-27] MEDS: DEXAMETHASONE 4 MG TAB PO SCH (09:22)
[2020-09-27] MEDS: METOPROLOL TARTRATE 25 MG TAB PO SCH ×2 (09:22→21:41)
[2020-09-27] MEDS: FAMOTIDINE 20 MG TAB PO SCH (09:22)
[2020-09-27] MEDS: cefTRIAXone/NS 2 GM/100 ML 2 GM/100 ML BAG IV SCH (09:23)
[2020-09-27] MEDS: ASCORBIC ACID 500 MG TAB PO SCH ×2 (09:23→21:40)
[2020-09-27] MEDS: DOLUTEGRAVIR 50 MG TAB PO SCH (09:23)
[2020-09-27] MEDS: AMIODARONE 200 MG TAB PO SCH ×2 (09:23→21:38)
[2020-09-27] MEDS: oxyCODONE 5 MG TAB PO PRN ×3 (09:25→23:19)
--- NOTE | 2020-09-27 13:49 | Progress Note ---
Assessment and Plan Acute hypoxemic respiratory failure. Atrial fibrillation with rapid ventricular response. Gram negative bacteremia Acute congestive heart failure exacerbation. Acute on chronic kidney injury. Anemia that is microcytic. Coagulopathy appears to be acquired. Respiratory alkalosis. Mild metabolic acidosis. Possible severe sepsis with shock due to a urinary tract infection. Urinary tract infection (i do feel that despite his CHF history he is septic now and with relative IVVD and will benefit from gentle hydration acutely - resume Eliquis 2.5 mg p.o. bid - repeat procalcitonin in am - begin scopolamine re: oropheryngeal secretions - continue care as below otherwise; - R. Femoral CVL discontinued (use Trialysis for vasopressors) - continue to watch for bleeding - follow HIT assay - continue enteral nutrition @ goal rate as tolerated - complete AB's per ID recommendations - continue to wean supplemental oxygen for target O2 sat's > 92% acutely - Aspiration precautions - continue bronchodilators with pulmonary hygiene per RT - continue accuchecks with glycemic control per SSI (While critically ill target blood glucose of 140-180 mg/dL; avoid hypoglycemia) - avoid nephrotoxins, renally dose all medications - continue to avoid benzodiazepine's, reduce the possibility of delirium - complete AB's per ID rec's (on Cefepime) - prn analgesia per pain score - Maintenance of sleep-wake cycle, avoid delirium - G.I. & VTE prophylaxis - PT/OT/ROM exercises - continue mobility protocols for pressure ulcer prophylaxis - Monitor hemodynamics closely - continue other care per attending / other consultants - discharge planning ongoing concurrently COVID SPECIFIC INTERVENTIONS - Remdesivir as per ID/Pulmonary developed protocols - systemic steroids for severe COVID-19 infection (on Decadron) - follow repeat COVID tests results - zinc and vitamin C supplementation - Monitor inflammatory markers per facility protocol - ferritin, Ddimer, CRP - therapeutic anticoagulation per system Protocol based on d-dimer and clinical considerations - Continue contact and airborne isolation ... will transfer to [facility] .... Re-evaluate in am & prn CONDITION: CRITICAL PROGNOSIS: GUARDED CODE STATUS: FULL CODE The high probability of a clinically significant, sudden or life-threatening deterioration of the [respiratory, cardiovascular & neurologic] system(s) required my full and direct attention, intervention and personal management. The aggregate critical care time was [34] minutes without overlap. Time includes spent on; [x] Data Review and interpretation [x] Patient assessment and monitoring of vital signs [x] Documentation [x] Medication orders and management Subjective Date of service: 09/27/20 Principal diagnosis: Ac hypoxemic resp failure; A-fib RVR; AE-CHF; LOLI; Septic shock; UTI Interval history: Patient is seen today for: Acute hypoxemic respiratory failure; A-fib with RVR; AE-CHF; LOLI on CKD; Severe sepsis with shock; UTI Seen and examined at bedside; 24hour events reviewed; nursing and respiratory care staff consulted; no adverse overnight events reported to me; resting peacefully in bed; Objective Vital Signs - 12hr 09/27/20 09/27/20 09/27/20 02:00 02:31 04:00 Temperature Pulse Rate 85 89 86 Pulse Rate [ From Monitor] Respiratory 14 13 12 Rate Blood Pressure 99/66 99/66 118/68 O2 Sat by Pulse 100 100 100 Oximetry 09/27/20 09/27/20 09/27/20 04:02 04:04 04:20 Temperature Pulse Rate 85 95 H Pulse Rate [ From Monitor] Respiratory 11 L 11 L Rate Blood Pressure 118/68 O2 Sat by Pulse 100 Oximetry 09/27/20 09/27/20 09/27/20 04:31 04:45 05:00 Temperature 97.2 F L Pulse Rate 92 H 86 Pulse Rate [ From Monitor] Respiratory 10 L 15 Rate Blood Pressure 116/91 121/80 O2 Sat by Pulse 100 100 Oximetry 09/27/20 09/27/20 09/27/20 05:30 06:00 06:31 Temperature Pulse Rate 106 H 107 H 96 H Pulse Rate [ From Monitor] Respiratory 12 9 L 15 Rate Blood Pressure 121/80 129/99 129/99 O2 Sat by Pulse 100 100 100 Oximetry 09/27/20 09/27/20 09/27/20 07:00 07:31 08:00 Temperature 98.4 F Pulse Rate 102 H 81 101 H Pulse Rate [ 98 H From Monitor] Respiratory 12 10 L 13 Rate Blood Pressure 105/65 129/99 O2 Sat by Pulse 100 99 99 Oximetry 09/27/20 09/27/20 09/27/20 08:01 08:31 09:01 Temperature Pulse Rate 94 H 116 H 114 H Pulse Rate [ From Monitor] Respiratory 10 L 12 12 Rate Blood Pressure 146/84 146/84 132/87 O2 Sat by Pulse 97 99 99 Oximetry 09/27/20 09/27/20 09/27/20 09:03 09:22 09:31 Temperature Pulse Rate 118 H 118 H Pulse Rate [ From Monitor] Respiratory 12 Rate Blood Pressure 132/87 132/87 O2 Sat by Pulse 100 Oximetry 09/27/20 09/27/20 09/27/20 10:01 10:31 11:00 Temperature Pulse Rate 105 H 81 87 Pulse Rate [ From Monitor] Respiratory 10 L 13 13 Rate Blood Pressure 107/88 107/88 121/79 O2 Sat by Pulse 83 L 100 100 Oximetry 09/27/20 09/27/20 09/27/20 11:31 11:39 12:00 Temperature 97.6 F Pulse Rate 88 92 H 87 Pulse Rate [ 92 H From Monitor] Respiratory 21 14 16 Rate Blood Pressure 107/88 129/95 O2 Sat by Pulse 99 99 100 Oximetry 09/27/20 09/27/20 12:31 13:00 Temperature Pulse Rate 110 H 115 H Pulse Rate [ From Monitor] Respiratory 11 L 14 Rate Blood Pressure 129/95 141/106 O2 Sat by Pulse 89 100 Oximetry Constitutional: appears uncomfortable, other (elderly male with mildly increased respiratory effort at rest) Eyes: non-icteric ENT: oropharynx moist Neck: supple, no lymphadenopathy, no JVD Effort: mildly labored Ascultation: Bilateral: rhonchi, other (right SCVL Trialysis catheter) Percussion: Bilateral: not dull Cardiovascular: irregular rhythm Gastrointestinal: normoactive bowel sounds, soft, non-tender, non-distended Integumentary: normal Extremities: no cyanosis, no edema, pulses normal, no ischemia or petechiae Neurologic: non-focal exam (grossly), pupils equal and round, CN II-XII normal, other (delirious) Psychiatric: other (delirious) CBC and BMP: 09/27/20 04:00 09/27/20 05:00 ABG, PT/INR, D-dimer: ABG ABG pH 7.508 (7.320-7.450) H 09/17/20 10:28 POC ABG pCO2 22.8 mmHg (32.0-48.0) L 09/17/20 10:28 POC ABG pO2 66.8 mmHg (83-108) L 09/17/20 10:28 POC ABG HCO3 17.7 09/17/20 10:28 ABG O2 Saturation 93.4 (0-100) 09/17/20 10:28 PT/INR, D-dimer PT 15.7 Sec. (12.2-14.9) H 09/24/20 12:13 INR 1.27 (0.87-1.13) H 09/24/20 12:13 D-Dimer 1772.86 ng/mlDDU (0-234) H 09/24/20 05:00 Abnormal lab findings: Abnormal Labs 09/17/20 09/17/20 09/17/20 10:28 10:47 10:47 WBC 11.1 H RBC 3.44 L Hgb 11.2 L Hct 32.8 L MCV 95 H MCH MCHC Plt Count Lymph % (Auto) [place] % (Auto) Lymph # (Auto) [place] # (Auto) Seg Neutrophils % Seg Neuts % (Manual) Lymphocytes % (Manual) 4.0 L Monocytes % (Manual) Nucleated RBC % Seg Neutrophils # Seg Neutrophils # Man 10.7 H Abs Lymphs (Manual) Lymphocytes # (Manual) 0.4 L PT 32.9 H INR 3.16 H APTT 51.1 H D-Dimer Heparin Anti-Xa Level ABG pH 7.508 H POC ABG pCO2 22.8 L POC ABG pO2 66.8 L ABG Oxyhemoglobin 92.7 L ABG Sodium 127.4 L ABG Potassium 4.7 H ABG Glucose 121 H Carboxyhemoglobin 0.4 L Sodium Chloride Carbon Dioxide BUN Creatinine Glucose POC Glucose Calcium Phosphorus Ferritin Total Bilirubin AST ALT Alkaline Phosphatase Lactate Dehydrogenase Total Creatine Kinase Troponin T C-Reactive Protein NT-Pro-B Natriuret Pep Total Protein Albumin Cholesterol LDL Cholesterol Direct HDL Cholesterol PTH Intact Arterial Blood Glucose 121 H Urine WBC (Auto) Urine Creatinine Heparin-induced Plt Ab Lymph Enumerat CD4/CD8 Absolute CD3 Count Absolute CD4 Count % CD8 Cells Absolute CD8 Count Absolute CD19 Count Coronavirus (PCR) HIV-1 RNA PCR copies/ml HIV-1 RNA (PCR) log 09/17/20 09/17/20 09/17/20 10:47 10:47 13:54 WBC RBC Hgb Hct MCV MCH MCHC Plt Count Lymph % (Auto) [place] % (Auto) Lymph # (Auto) [place] # (Auto) Seg Neutrophils % Seg Neuts % (Manual) Lymphocytes % (Manual) Monocytes % (Manual) Nucleated RBC % Seg Neutrophils # Seg Neutrophils # Man Abs Lymphs (Manual) Lymphocytes # (Manual) PT INR APTT D-Dimer Heparin Anti-Xa Level ABG pH POC ABG pCO2 POC ABG pO2 ABG Oxyhemoglobin ABG Sodium ABG Potassium ABG Glucose Carboxyhemoglobin Sodium 125 L Chloride 95.3 L Carbon Dioxide 17 L BUN 64 H Creatinine 4.6 H D Glucose 104 H POC Glucose Calcium Phosphorus Ferritin Total Bilirubin AST 69 H ALT Alkaline Phosphatase Lactate Dehydrogenase Total Creatine Kinase Troponin T 0.061 H D 0.058 H C-Reactive Protein NT-Pro-B Natriuret Pep 36928 H Total Protein Albumin 1.9 L Cholesterol 48 L LDL Cholesterol Direct 4 L HDL Cholesterol 9 L PTH Intact Arterial Blood Glucose Urine WBC (Auto) Urine Creatinine Heparin-induced Plt Ab Lymph Enumerat CD4/CD8 Absolute CD3 Count Absolute CD4 Count % CD8 Cells Absolute CD8 Count Absolute CD19 Count Coronavirus (PCR) HIV-1 RNA PCR copies/ml HIV-1 RNA (PCR) log 09/17/20 09/17/20 09/17/20 16:36 17:35 17:35 WBC RBC 3.25 L Hgb 10.7 L Hct 31.1 L MCV 96 H MCH 33 H MCHC Plt Count Lymph % (Auto) [place] % (Auto) Lymph # (Auto) [place] # (Auto) Seg Neutrophils % Seg Neuts % (Manual) Lymphocytes % (Manual) Monocytes % (Manual) Nucleated RBC % Seg Neutrophils # Seg Neutrophils # Man Abs Lymphs (Manual) Lymphocytes # (Manual) PT 31.9 H INR 3.04 H APTT 50.9 H D-Dimer Heparin Anti-Xa Level ABG pH POC ABG pCO2 POC ABG pO2 ABG Oxyhemoglobin ABG Sodium ABG Potassium ABG Glucose Carboxyhemoglobin Sodium Chloride Carbon Dioxide BUN Creatinine Glucose POC Glucose Calcium Phosphorus Ferritin Total Bilirubin AST ALT Alkaline Phosphatase Lactate Dehydrogenase Total Creatine Kinase Troponin T 0.057 H C-Reactive Protein NT-Pro-B Natriuret Pep Total Protein Albumin Cholesterol LDL Cholesterol Direct HDL Cholesterol PTH Intact Arterial Blood Glucose Urine WBC (Auto) Urine Creatinine Heparin-induced Plt Ab Lymph Enumerat CD4/CD8 Absolute CD3 Count Absolute CD4 Count % CD8 Cells Absolute CD8 Count Absolute CD19 Count Coronavirus (PCR) HIV-1 RNA PCR copies/ml HIV-1 RNA (PCR) log 09/17/20 09/18/20 09/18/20 17:35 03:19 03:19 WBC RBC 3.32 L Hgb 10.9 L Hct 32.0 L MCV 96 H MCH 33 H MCHC Plt Count 138 L Lymph % (Auto) [place] % (Auto) Lymph # (Auto) [place] # (Auto) Seg Neutrophils % Seg Neuts % (Manual) 95.0 H Lymphocytes % (Manual) 3.0 L Monocytes % (Manual) Nucleated RBC % Seg Neutrophils # Seg Neutrophils # Man 8.1 H Abs Lymphs (Manual) Lymphocytes # (Manual) 0.3 L PT INR APTT D-Dimer Heparin Anti-Xa Level ABG pH POC ABG pCO2 POC ABG pO2 ABG Oxyhemoglobin ABG Sodium ABG Potassium ABG Glucose Carboxyhemoglobin Sodium Chloride Carbon Dioxide 16 L BUN 70 H Creatinine 4.6 H 4.7 H Glucose 104 H POC Glucose Calcium 8.2 L Phosphorus Ferritin Total Bilirubin 1.60 H AST 128 H ALT 67 H Alkaline Phosphatase Lactate Dehydrogenase Total Creatine Kinase Troponin T C-Reactive Protein NT-Pro-B Natriuret Pep Total Protein 5.2 L D Albumin 2.5 L Cholesterol LDL Cholesterol Direct HDL Cholesterol PTH Intact Arterial Blood Glucose Urine WBC (Auto) Urine Creatinine Heparin-induced Plt Ab Lymph Enumerat CD4/CD8 Absolute CD3 Count Absolute CD4 Count % CD8 Cells Absolute CD8 Count Absolute CD19 Count Coronavirus (PCR) HIV-1 RNA PCR copies/ml HIV-1 RNA (PCR) log 09/18/20 09/18/20 09/18/20 09:39 12:00 12:00 WBC RBC Hgb Hct MCV MCH MCHC Plt Count Lymph % (Auto) [place] % (Auto) Lymph # (Auto) [place] # (Auto) Seg Neutrophils % Seg Neuts % (Manual) Lymphocytes % (Manual) Monocytes % (Manual) Nucleated RBC % Seg Neutrophils # Seg Neutrophils # Man Abs Lymphs (Manual) Lymphocytes # (Manual) PT INR APTT D-Dimer Heparin Anti-Xa Level ABG pH POC ABG pCO2 POC ABG pO2 ABG Oxyhemoglobin ABG Sodium ABG Potassium ABG Glucose Carboxyhemoglobin Sodium Chloride Carbon Dioxide BUN Creatinine Glucose POC Glucose Calcium Phosphorus Ferritin Total Bilirubin AST ALT Alkaline Phosphatase Lactate Dehydrogenase Total Creatine Kinase Troponin T C-Reactive Protein NT-Pro-B Natriuret Pep Total Protein Albumin Cholesterol LDL Cholesterol Direct HDL Cholesterol PTH Intact Arterial Blood Glucose Urine WBC (Auto) 71.0 H Urine Creatinine 61.0 H Heparin-induced Plt Ab Lymph Enumerat CD4/CD8 Absolute CD3 Count Absolute CD4 Count % CD8 Cells Absolute CD8 Count Absolute CD19 Count Coronavirus (PCR) Positive A HIV-1 RNA PCR copies/ml HIV-1 RNA (PCR) log 09/18/20 09/18/20 09/18/20 15:07 15:07 18:33 WBC RBC Hgb 10.7 L Hct 31.3 L MCV MCH MCHC Plt Count Lymph % (Auto) [place] % (Auto) Lymph # (Auto) [place] # (Auto) Seg Neutrophils % Seg Neuts % (Manual) Lymphocytes % (Manual) Monocytes % (Manual) Nucleated RBC % Seg Neutrophils # Seg Neutrophils # Man Abs Lymphs (Manual) Lymphocytes # (Manual) PT 20.3 H INR 1.73 H APTT 40.8 H D-Dimer Heparin Anti-Xa Level 1.09 H ABG pH POC ABG pCO2 POC ABG pO2 ABG Oxyhemoglobin ABG Sodium ABG Potassium ABG Glucose Carboxyhemoglobin Sodium Chloride Carbon Dioxide BUN Creatinine Glucose POC Glucose Calcium Phosphorus Ferritin Total Bilirubin AST ALT Alkaline Phosphatase Lactate Dehydrogenase Total Creatine Kinase Troponin T C-Reactive Protein NT-Pro-B Natriuret Pep Total Protein Albumin Cholesterol LDL Cholesterol Direct HDL Cholesterol PTH Intact Arterial Blood Glucose Urine WBC (Auto) Urine Creatinine Heparin-induced Plt Ab Lymph Enumerat CD4/CD8 Absolute CD3 Count Absolute CD4 Count % CD8 Cells Absolute CD8 Count Absolute CD19 Count Coronavirus (PCR) HIV-1 RNA PCR copies/ml HIV-1 RNA (PCR) log 09/19/20 09/19/20 09/19/20 03:30 03:30 03:30 WBC RBC 3.29 L Hgb 10.9 L Hct 30.9 L MCV MCH 33 H MCHC 35 H Plt Count Lymph % (Auto) [place] % (Auto) Lymph # (Auto) [place] # (Auto) Seg Neutrophils % Seg Neuts % (Manual) Lymphocytes % (Manual) Monocytes % (Manual) Nucleated RBC % Seg Neutrophils # Seg Neutrophils # Man Abs Lymphs (Manual) Lymphocytes # (Manual) PT INR APTT D-Dimer Heparin Anti-Xa Level ABG pH POC ABG pCO2 POC ABG pO2 ABG Oxyhemoglobin ABG Sodium ABG Potassium ABG Glucose Carboxyhemoglobin Sodium 133 L Chloride Carbon Dioxide 17 L BUN 94 H Creatinine 5.0 H Glucose 120 H POC Glucose Calcium Phosphorus 6.30 H Ferritin Total Bilirubin 2.40 H AST 163 H ALT 109 H Alkaline Phosphatase 160 H Lactate Dehydrogenase Total Creatine Kinase 20 L Troponin T C-Reactive Protein NT-Pro-B Natriuret Pep Total Protein 6.2 L Albumin 2.0 L Cholesterol LDL Cholesterol Direct HDL Cholesterol PTH Intact 161.4 H Arterial Blood Glucose Urine WBC (Auto) Urine Creatinine Heparin-induced Plt Ab Lymph Enumerat CD4/CD8 Absolute CD3 Count Absolute CD4 Count % CD8 Cells Absolute CD8 Count Absolute CD19 Count Coronavirus (PCR) HIV-1 RNA PCR copies/ml HIV-1 RNA (PCR) log 09/19/20 09/19/20 09/19/20 06:35 13:35 13:35 WBC RBC Hgb Hct MCV MCH MCHC Plt Count Lymph % (Auto) [place] % (Auto) Lymph # (Auto) [place] # (Auto) Seg Neutrophils % Seg Neuts % (Manual) Lymphocytes % (Manual) Monocytes % (Manual) Nucleated RBC % Seg Neutrophils # Seg Neutrophils # Man Abs Lymphs (Manual) 223 L Lymphocytes # (Manual) PT INR APTT D-Dimer Heparin Anti-Xa Level ABG pH POC ABG pCO2 POC ABG pO2 ABG Oxyhemoglobin ABG Sodium ABG Potassium ABG Glucose Carboxyhemoglobin Sodium Chloride Carbon Dioxide BUN Creatinine Glucose POC Glucose 123 H Calcium Phosphorus Ferritin Total Bilirubin AST ALT Alkaline Phosphatase Lactate Dehydrogenase Total Creatine Kinase Troponin T C-Reactive Protein NT-Pro-B Natriuret Pep Total Protein Albumin Cholesterol LDL Cholesterol Direct HDL Cholesterol PTH Intact Arterial Blood Glucose Urine WBC (Auto) Urine Creatinine Heparin-induced Plt Ab Lymph Enumerat CD4/CD8 0.70 L Absolute CD3 Count 175 L Absolute CD4 Count 70 L % CD8 Cells 45 H Absolute CD8 Count 101 L Absolute CD19 Count 26 L Coronavirus (PCR) HIV-1 RNA PCR copies/ml 67 H HIV-1 RNA (PCR) log 1.83 H 09/19/20 09/20/20 09/20/20 23:37 04:00 04:00 WBC RBC 3.43 L Hgb 11.1 L Hct 32.2 L MCV MCH MCHC Plt Count 131 L Lymph % (Auto) [place] % (Auto) Lymph # (Auto) [place] # (Auto) Seg Neutrophils % Seg Neuts % (Manual) 88.0 H Lymphocytes % (Manual) 3.0 L Monocytes % (Manual) 9.0 H Nucleated RBC % Seg Neutrophils # Seg Neutrophils # Man 8.2 H Abs Lymphs (Manual) Lymphocytes # (Manual) 0.3 L PT INR APTT D-Dimer Heparin Anti-Xa Level 0.10 L ABG pH POC ABG pCO2 POC ABG pO2 ABG Oxyhemoglobin ABG Sodium ABG Potassium ABG Glucose Carboxyhemoglobin Sodium Chloride Carbon Dioxide BUN Creatinine Glucose POC Glucose 135 H Calcium Phosphorus Ferritin Total Bilirubin AST ALT Alkaline Phosphatase Lactate Dehydrogenase Total Creatine Kinase Troponin T C-Reactive Protein NT-Pro-B Natriuret Pep Total Protein Albumin Cholesterol LDL Cholesterol Direct HDL Cholesterol PTH Intact Arterial Blood Glucose Urine WBC (Auto) Urine Creatinine Heparin-induced Plt Ab Lymph Enumerat CD4/CD8 Absolute CD3 Count Absolute CD4 Count % CD8 Cells Absolute CD8 Count Absolute CD19 Count Coronavirus (PCR) HIV-1 RNA PCR copies/ml HIV-1 RNA (PCR) log 09/20/20 09/20/20 09/20/20 04:00 05:37 11:20 WBC RBC Hgb Hct MCV MCH MCHC Plt Count Lymph % (Auto) [place] % (Auto) Lymph # (Auto) [place] # (Auto) Seg Neutrophils % Seg Neuts % (Manual) Lymphocytes % (Manual) Monocytes % (Manual) Nucleated RBC % Seg Neutrophils # Seg Neutrophils # Man Abs Lymphs (Manual) Lymphocytes # (Manual) PT INR APTT D-Dimer Heparin Anti-Xa Level ABG pH POC ABG pCO2 POC ABG pO2 ABG Oxyhemoglobin ABG Sodium ABG Potassium ABG Glucose Carboxyhemoglobin Sodium Chloride Carbon Dioxide 16 L BUN 119 H Creatinine 6.2 H Glucose 136 H POC Glucose 137 H 108 H Calcium Phosphorus Ferritin Total Bilirubin AST ALT Alkaline Phosphatase Lactate Dehydrogenase Total Creatine Kinase Troponin T C-Reactive Protein NT-Pro-B Natriuret Pep Total Protein Albumin Cholesterol LDL Cholesterol Direct HDL Cholesterol PTH Intact Arterial Blood Glucose Urine WBC (Auto) Urine Creatinine Heparin-induced Plt Ab Lymph Enumerat CD4/CD8 Absolute CD3 Count Absolute CD4 Count % CD8 Cells Absolute CD8 Count Absolute CD19 Count Coronavirus (PCR) HIV-1 RNA PCR copies/ml HIV-1 RNA (PCR) log 09/20/20 09/20/20 09/20/20 17:10 17:10 17:10 WBC RBC Hgb Hct MCV MCH MCHC Plt Count Lymph % (Auto) [place] % (Auto) Lymph # (Auto) [place] # (Auto) Seg Neutrophils % Seg Neuts % (Manual) Lymphocytes % (Manual) Monocytes % (Manual) Nucleated RBC % Seg Neutrophils # Seg Neutrophils # Man Abs Lymphs (Manual) Lymphocytes # (Manual) PT INR APTT D-Dimer 4271.58 H Heparin Anti-Xa Level ABG pH POC ABG pCO2 POC ABG pO2 ABG Oxyhemoglobin ABG Sodium ABG Potassium ABG Glucose Carboxyhemoglobin Sodium Chloride Carbon Dioxide BUN Creatinine 6.0 H Glucose POC Glucose Calcium Phosphorus Ferritin 696.6 H Total Bilirubin AST ALT Alkaline Phosphatase Lactate Dehydrogenase Total Creatine Kinase Troponin T C-Reactive Protein NT-Pro-B Natriuret Pep Total Protein Albumin Cholesterol LDL Cholesterol Direct HDL Cholesterol PTH Intact Arterial Blood Glucose Urine WBC (Auto) Urine Creatinine Heparin-induced Plt Ab Lymph Enumerat CD4/CD8 Absolute CD3 Count Absolute CD4 Count % CD8 Cells Absolute CD8 Count Absolute CD19 Count Coronavirus (PCR) HIV-1 RNA PCR copies/ml HIV-1 RNA (PCR) log 09/20/20 09/20/20 09/20/20 17:10 18:21 23:14 WBC RBC Hgb Hct MCV MCH MCHC Plt Count Lymph % (Auto) [place] % (Auto) Lymph # (Auto) [place] # (Auto) Seg Neutrophils % Seg Neuts % (Manual) Lymphocytes % (Manual) Monocytes % (Manual) Nucleated RBC % Seg Neutrophils # Seg Neutrophils # Man Abs Lymphs (Manual) Lymphocytes # (Manual) PT INR APTT D-Dimer Heparin Anti-Xa Level ABG pH POC ABG pCO2 POC ABG pO2 ABG Oxyhemoglobin ABG Sodium ABG Potassium ABG Glucose Carboxyhemoglobin Sodium Chloride Carbon Dioxide BUN Creatinine Glucose POC Glucose 129 H 170 H Calcium Phosphorus Ferritin Total Bilirubin AST ALT Alkaline Phosphatase Lactate Dehydrogenase 209 H Total Creatine Kinase Troponin T C-Reactive Protein 10.60 H NT-Pro-B Natriuret Pep Total Protein Albumin Cholesterol LDL Cholesterol Direct HDL Cholesterol PTH Intact Arterial Blood Glucose Urine WBC (Auto) Urine Creatinine Heparin-induced Plt Ab Lymph Enumerat CD4/CD8 Absolute CD3 Count Absolute CD4 Count % CD8 Cells Absolute CD8 Count Absolute CD19 Count Coronavirus (PCR) HIV-1 RNA PCR copies/ml HIV-1 RNA (PCR) log 09/21/20 09/21/20 09/21/20 05:35 17:09 23:18 WBC RBC Hgb Hct MCV MCH MCHC Plt Count Lymph % (Auto) [place] % (Auto) Lymph # (Auto) [place] # (Auto) Seg Neutrophils % Seg Neuts % (Manual) Lymphocytes % (Manual) Monocytes % (Manual) Nucleated RBC % Seg Neutrophils # Seg Neutrophils # Man Abs Lymphs (Manual) Lymphocytes # (Manual) PT INR APTT D-Dimer Heparin Anti-Xa Level ABG pH POC ABG pCO2 POC ABG pO2 ABG Oxyhemoglobin ABG Sodium ABG Potassium ABG Glucose Carboxyhemoglobin Sodium Chloride Carbon Dioxide BUN Creatinine Glucose POC Glucose 170 H 140 H 139 H Calcium Phosphorus Ferritin Total Bilirubin AST ALT Alkaline Phosphatase Lactate Dehydrogenase Total Creatine Kinase Troponin T C-Reactive Protein NT-Pro-B Natriuret Pep Total Protein Albumin Cholesterol LDL Cholesterol Direct HDL Cholesterol PTH Intact Arterial Blood Glucose Urine WBC (Auto) Urine Creatinine Heparin-induced Plt Ab Lymph Enumerat CD4/CD8 Absolute CD3 Count Absolute CD4 Count % CD8 Cells Absolute CD8 Count Absolute CD19 Count Coronavirus (PCR) HIV-1 RNA PCR copies/ml HIV-1 RNA (PCR) log 09/21/20 09/21/20 09/21/20 Unknown Unknown Unknown WBC RBC 3.56 L Hgb 11.3 L Hct 33.2 L MCV MCH MCHC Plt Count 125 L Lymph % (Auto) [place] % (Auto) Lymph # (Auto) [place] # (Auto) Seg Neutrophils % Seg Neuts % (Manual) 90.0 H Lymphocytes % (Manual) 8.0 L Monocytes % (Manual) Nucleated RBC % 1.0 H Seg Neutrophils # Seg Neutrophils # Man 9.4 H Abs Lymphs (Manual) Lymphocytes # (Manual) 0.8 L PT 16.8 H INR 1.36 H APTT D-Dimer Heparin Anti-Xa Level ABG pH POC ABG pCO2 POC ABG pO2 ABG Oxyhemoglobin ABG Sodium ABG Potassium ABG Glucose Carboxyhemoglobin Sodium Chloride Carbon Dioxide BUN 83 H Creatinine 4.3 H Glucose 163 H POC Glucose Calcium Phosphorus Ferritin Total Bilirubin 2.40 H AST ALT 57 H Alkaline Phosphatase < 5 L Lactate Dehydrogenase Total Creatine Kinase Troponin T C-Reactive Protein NT-Pro-B Natriuret Pep Total Protein Albumin 1.9 L Cholesterol LDL Cholesterol Direct HDL Cholesterol PTH Intact Arterial Blood Glucose Urine WBC (Auto) Urine Creatinine Heparin-induced Plt Ab Lymph Enumerat CD4/CD8 Absolute CD3 Count Absolute CD4 Count % CD8 Cells Absolute CD8 Count Absolute CD19 Count Coronavirus (PCR) HIV-1 RNA PCR copies/ml HIV-1 RNA (PCR) log 09/22/20 09/22/20 09/22/20 05:38 05:38 05:38 WBC 15.8 H RBC 3.36 L Hgb 10.8 L Hct 31.0 L MCV MCH MCHC 35 H Plt Count 68 L Lymph % (Auto) 3.1 L [place] % (Auto) 10.7 H Lymph # (Auto) 0.5 L [place] # (Auto) 1.7 H Seg Neutrophils % 85.9 H Seg Neuts % (Manual) Lymphocytes % (Manual) Monocytes % (Manual) Nucleated RBC % Seg Neutrophils # 13.6 H Seg Neutrophils # Man Abs Lymphs (Manual) Lymphocytes # (Manual) PT INR APTT D-Dimer 3281.49 H Heparin Anti-Xa Level ABG pH POC ABG pCO2 POC ABG pO2 ABG Oxyhemoglobin ABG Sodium ABG Potassium ABG Glucose Carboxyhemoglobin Sodium Chloride Carbon Dioxide BUN 61 H Creatinine 3.1 H Glucose 129 H POC Glucose Calcium Phosphorus Ferritin Total Bilirubin AST ALT Alkaline Phosphatase Lactate Dehydrogenase 277 H Total Creatine Kinase Troponin T C-Reactive Protein 6.60 H NT-Pro-B Natriuret Pep Total Protein Albumin Cholesterol LDL Cholesterol Direct HDL Cholesterol PTH Intact Arterial Blood Glucose Urine WBC (Auto) Urine Creatinine Heparin-induced Plt Ab Lymph Enumerat CD4/CD8 Absolute CD3 Count Absolute CD4 Count % CD8 Cells Absolute CD8 Count Absolute CD19 Count Coronavirus (PCR) HIV-1 RNA PCR copies/ml HIV-1 RNA (PCR) log 09/22/20 09/22/20 09/22/20 05:38 05:44 11:26 WBC RBC Hgb Hct MCV MCH MCHC Plt Count Lymph % (Auto) [place] % (Auto) Lymph # (Auto) [place] # (Auto) Seg Neutrophils % Seg Neuts % (Manual) Lymphocytes % (Manual) Monocytes % (Manual) Nucleated RBC % Seg Neutrophils # Seg Neutrophils # Man Abs Lymphs (Manual) Lymphocytes # (Manual) PT INR APTT D-Dimer Heparin Anti-Xa Level ABG pH POC ABG pCO2 POC ABG pO2 ABG Oxyhemoglobin ABG Sodium ABG Potassium ABG Glucose Carboxyhemoglobin Sodium Chloride Carbon Dioxide BUN Creatinine Glucose POC Glucose 112 H 131 H Calcium Phosphorus Ferritin 927.8 H Total Bilirubin AST ALT Alkaline Phosphatase Lactate Dehydrogenase Total Creatine Kinase Troponin T C-Reactive Protein NT-Pro-B Natriuret Pep Total Protein Albumin Cholesterol LDL Cholesterol Direct HDL Cholesterol PTH Intact Arterial Blood Glucose Urine WBC (Auto) Urine Creatinine Heparin-induced Plt Ab Lymph Enumerat CD4/CD8 Absolute CD3 Count Absolute CD4 Count % CD8 Cells Absolute CD8 Count Absolute CD19 Count Coronavirus (PCR) HIV-1 RNA PCR copies/ml HIV-1 RNA (PCR) log 09/22/20 09/22/20 09/22/20 15:12 15:12 15:12 WBC RBC Hgb Hct MCV MCH MCHC Plt Count Lymph % (Auto) [place] % (Auto) Lymph # (Auto) [place] # (Auto) Seg Neutrophils % Seg Neuts % (Manual) Lymphocytes % (Manual) Monocytes % (Manual) Nucleated RBC % Seg Neutrophils # Seg Neutrophils # Man Abs Lymphs (Manual) Lymphocytes # (Manual) PT 17.3 H INR 1.42 H APTT D-Dimer Heparin Anti-Xa Level ABG pH POC ABG pCO2 POC ABG pO2 ABG Oxyhemoglobin ABG Sodium ABG Potassium ABG Glucose Carboxyhemoglobin Sodium Chloride Carbon Dioxide BUN Creatinine 3.0 H Glucose POC Glucose Calcium Phosphorus Ferritin Total Bilirubin AST ALT Alkaline Phosphatase Lactate Dehydrogenase Total Creatine Kinase Troponin T C-Reactive Protein NT-Pro-B Natriuret Pep Total Protein Albumin Cholesterol LDL Cholesterol Direct HDL Cholesterol PTH Intact Arterial Blood Glucose Urine WBC (Auto) Urine Creatinine Heparin-induced Plt Ab Weak positive H Lymph Enumerat CD4/CD8 Absolute CD3 Count Absolute CD4 Count % CD8 Cells Absolute CD8 Count Absolute CD19 Count Coronavirus (PCR) HIV-1 RNA PCR copies/ml HIV-1 RNA (PCR) log 09/22/20 09/22/20 09/23/20 16:53 23:55 04:36 WBC 14.2 H RBC 3.05 L Hgb 9.8 L Hct 28.4 L MCV MCH MCHC Plt Count 39 L Lymph % (Auto) [place] % (Auto) Lymph # (Auto) [place] # (Auto) Seg Neutrophils % Seg Neuts % (Manual) 91.0 H Lymphocytes % (Manual) 2.0 L Monocytes % (Manual) Nucleated RBC % Seg Neutrophils # Seg Neutrophils # Man 12.9 H Abs Lymphs (Manual) Lymphocytes # (Manual) 0.3 L PT INR APTT D-Dimer Heparin Anti-Xa Level ABG pH POC ABG pCO2 POC ABG pO2 ABG Oxyhemoglobin ABG Sodium ABG Potassium ABG Glucose Carboxyhemoglobin Sodium Chloride Carbon Dioxide BUN Creatinine Glucose POC Glucose 138 H 171 H Calcium Phosphorus Ferritin Total Bilirubin AST ALT Alkaline Phosphatase Lactate Dehydrogenase Total Creatine Kinase Troponin T C-Reactive Protein NT-Pro-B Natriuret Pep Total Protein Albumin Cholesterol LDL Cholesterol Direct HDL Cholesterol PTH Intact Arterial Blood Glucose Urine WBC (Auto) Urine Creatinine Heparin-induced Plt Ab Lymph Enumerat CD4/CD8 Absolute CD3 Count Absolute CD4 Count % CD8 Cells Absolute CD8 Count Absolute CD19 Count Coronavirus (PCR) HIV-1 RNA PCR copies/ml HIV-1 RNA (PCR) log 09/23/20 09/23/20 09/23/20 04:36 05:41 11:38 WBC RBC Hgb Hct MCV MCH MCHC Plt Count Lymph % (Auto) [place] % (Auto) Lymph # (Auto) [place] # (Auto) Seg Neutrophils % Seg Neuts % (Manual) Lymphocytes % (Manual) Monocytes % (Manual) Nucleated RBC % Seg Neutrophils # Seg Neutrophils # Man Abs Lymphs (Manual) Lymphocytes # (Manual) PT INR APTT D-Dimer Heparin Anti-Xa Level ABG pH POC ABG pCO2 POC ABG pO2 ABG Oxyhemoglobin ABG Sodium ABG Potassium ABG Glucose Carboxyhemoglobin Sodium Chloride Carbon Dioxide BUN 76 H Creatinine 3.1 H Glucose 157 H POC Glucose 136 H 141 H Calcium Phosphorus Ferritin Total Bilirubin AST ALT Alkaline Phosphatase Lactate Dehydrogenase Total Creatine Kinase Troponin T C-Reactive Protein NT-Pro-B Natriuret Pep Total Protein Albumin Cholesterol LDL Cholesterol Direct HDL Cholesterol PTH Intact Arterial Blood Glucose Urine WBC (Auto) Urine Creatinine Heparin-induced Plt Ab Lymph Enumerat CD4/CD8 Absolute CD3 Count Absolute CD4 Count % CD8 Cells Absolute CD8 Count Absolute CD19 Count Coronavirus (PCR) HIV-1 RNA PCR copies/ml HIV-1 RNA (PCR) log 09/23/20 09/23/20 09/24/20 17:09 23:51 05:00 WBC 24.2 H RBC 3.23 L Hgb 10.0 L Hct 29.7 L MCV MCH MCHC Plt Count 74 L Lymph % (Auto) [place] % (Auto) Lymph # (Auto) [place] # (Auto) Seg Neutrophils % Seg Neuts % (Manual) Lymphocytes % (Manual) Monocytes % (Manual) Nucleated RBC % Seg Neutrophils # Seg Neutrophils # Man Abs Lymphs (Manual) Lymphocytes # (Manual) PT INR APTT D-Dimer Heparin Anti-Xa Level ABG pH POC ABG pCO2 POC ABG pO2 ABG Oxyhemoglobin ABG Sodium ABG Potassium ABG Glucose Carboxyhemoglobin Sodium Chloride Carbon Dioxide BUN Creatinine Glucose POC Glucose 128 H 128 H Calcium Phosphorus Ferritin Total Bilirubin AST ALT Alkaline Phosphatase Lactate Dehydrogenase Total Creatine Kinase Troponin T C-Reactive Protein NT-Pro-B Natriuret Pep Total Protein Albumin Cholesterol LDL Cholesterol Direct HDL Cholesterol PTH Intact Arterial Blood Glucose Urine WBC (Auto) Urine Creatinine Heparin-induced Plt Ab Lymph Enumerat CD4/CD8 Absolute CD3 Count Absolute CD4 Count % CD8 Cells Absolute CD8 Count Absolute CD19 Count Coronavirus (PCR) HIV-1 RNA PCR copies/ml HIV-1 RNA (PCR) log 09/24/20 09/24/20 09/24/20 05:00 05:00 05:00 WBC RBC Hgb Hct MCV MCH MCHC Plt Count Lymph % (Auto) [place] % (Auto) Lymph # (Auto) [place] # (Auto) Seg Neutrophils % Seg Neuts % (Manual) Lymphocytes % (Manual) Monocytes % (Manual) Nucleated RBC % Seg Neutrophils # Seg Neutrophils # Man Abs Lymphs (Manual) Lymphocytes # (Manual) PT INR APTT D-Dimer 1772.86 H Heparin Anti-Xa Level ABG pH POC ABG pCO2 POC ABG pO2 ABG Oxyhemoglobin ABG Sodium ABG Potassium ABG Glucose Carboxyhemoglobin Sodium Chloride 107.1 H Carbon Dioxide BUN 90 H Creatinine 3.1 H Glucose 118 H POC Glucose Calcium Phosphorus Ferritin 1190.0 H Total Bilirubin AST ALT Alkaline Phosphatase Lactate Dehydrogenase 276 H Total Creatine Kinase Troponin T C-Reactive Protein 4.20 H NT-Pro-B Natriuret Pep Total Protein Albumin Cholesterol LDL Cholesterol Direct HDL Cholesterol PTH Intact Arterial Blood Glucose Urine WBC (Auto) Urine Creatinine Heparin-induced Plt Ab Lymph Enumerat CD4/CD8 Absolute CD3 Count Absolute CD4 Count % CD8 Cells Absolute CD8 Count Absolute CD19 Count Coronavirus (PCR) HIV-1 RNA PCR copies/ml HIV-1 RNA (PCR) log 09/24/20 09/24/20 09/24/20 05:12 11:25 12:09 WBC RBC Hgb Hct MCV MCH MCHC Plt Count Lymph % (Auto) [place] % (Auto) Lymph # (Auto) [place] # (Auto) Seg Neutrophils % Seg Neuts % (Manual) Lymphocytes % (Manual) Monocytes % (Manual) Nucleated RBC % Seg Neutrophils # Seg Neutrophils # Man Abs Lymphs (Manual) Lymphocytes # (Manual) PT INR APTT D-Dimer Heparin Anti-Xa Level ABG pH POC ABG pCO2 POC ABG pO2 ABG Oxyhemoglobin ABG Sodium ABG Potassium ABG Glucose Carboxyhemoglobin Sodium Chloride Carbon Dioxide BUN Creatinine 3.1 H Glucose POC Glucose 114 H 110 H Calcium Phosphorus Ferritin Total Bilirubin AST ALT Alkaline Phosphatase Lactate Dehydrogenase Total Creatine Kinase Troponin T C-Reactive Protein NT-Pro-B Natriuret Pep Total Protein Albumin Cholesterol LDL Cholesterol Direct HDL Cholesterol PTH Intact Arterial Blood Glucose Urine WBC (Auto) Urine Creatinine Heparin-induced Plt Ab Lymph Enumerat CD4/CD8 Absolute CD3 Count Absolute CD4 Count % CD8 Cells Absolute CD8 Count Absolute CD19 Count Coronavirus (PCR) HIV-1 RNA PCR copies/ml HIV-1 RNA (PCR) log 09/24/20 09/24/20 09/24/20 12:13 12:13 17:41 WBC 20.8 H RBC 3.04 L Hgb 9.5 L Hct 28.0 L MCV MCH MCHC Plt Count 78 L Lymph % (Auto) [place] % (Auto) Lymph # (Auto) [place] # (Auto) Seg Neutrophils % Seg Neuts % (Manual) Lymphocytes % (Manual) Monocytes % (Manual) Nucleated RBC % Seg Neutrophils # Seg Neutrophils # Man Abs Lymphs (Manual) Lymphocytes # (Manual) PT 15.7 H INR 1.27 H APTT D-Dimer Heparin Anti-Xa Level ABG pH POC ABG pCO2 POC ABG pO2 ABG Oxyhemoglobin ABG Sodium ABG Potassium ABG Glucose Carboxyhemoglobin Sodium Chloride Carbon Dioxide BUN Creatinine Glucose POC Glucose 133 H Calcium Phosphorus Ferritin Total Bilirubin AST ALT Alkaline Phosphatase Lactate Dehydrogenase Total Creatine Kinase Troponin T C-Reactive Protein NT-Pro-B Natriuret Pep Total Protein Albumin Cholesterol LDL Cholesterol Direct HDL Cholesterol PTH Intact Arterial Blood Glucose Urine WBC (Auto) Urine Creatinine Heparin-induced Plt Ab Lymph Enumerat CD4/CD8 Absolute CD3 Count Absolute CD4 Count % CD8 Cells Absolute CD8 Count Absolute CD19 Count Coronavirus (PCR) HIV-1 RNA PCR copies/ml HIV-1 RNA (PCR) log 09/24/20 09/25/20 09/25/20 23:34 06:40 06:40 WBC RBC Hgb Hct MCV MCH MCHC Plt Count Lymph % (Auto) [place] % (Auto) Lymph # (Auto) [place] # (Auto) Seg Neutrophils % Seg Neuts % (Manual) Lymphocytes % (Manual) Monocytes % (Manual) Nucleated RBC % Seg Neutrophils # Seg Neutrophils # Man Abs Lymphs (Manual) Lymphocytes # (Manual) PT INR APTT D-Dimer Heparin Anti-Xa Level ABG pH POC ABG pCO2 POC ABG pO2 ABG Oxyhemoglobin ABG Sodium ABG Potassium ABG Glucose Carboxyhemoglobin Sodium Chloride 109.0 H Carbon Dioxide BUN 98 H Creatinine 3.0 H 3.0 H Glucose 111 H POC Glucose 113 H Calcium Phosphorus Ferritin Total Bilirubin AST ALT Alkaline Phosphatase Lactate Dehydrogenase Total Creatine Kinase Troponin T C-Reactive Protein NT-Pro-B Natriuret Pep Total Protein Albumin Cholesterol LDL Cholesterol Direct HDL Cholesterol PTH Intact Arterial Blood Glucose Urine WBC (Auto) Urine Creatinine Heparin-induced Plt Ab Lymph Enumerat CD4/CD8 Absolute CD3 Count Absolute CD4 Count % CD8 Cells Absolute CD8 Count Absolute CD19 Count Coronavirus (PCR) HIV-1 RNA PCR copies/ml HIV-1 RNA (PCR) log 09/25/20 09/25/20 09/25/20 10:45 12:45 18:03 WBC 20.7 H RBC 3.33 L Hgb 10.2 L Hct 31.3 L MCV MCH MCHC Plt Count 139 L Lymph % (Auto) [place] % (Auto) Lymph # (Auto) [place] # (Auto) Seg Neutrophils % Seg Neuts % (Manual) Lymphocytes % (Manual) Monocytes % (Manual) Nucleated RBC % Seg Neutrophils # Seg Neutrophils # Man Abs Lymphs (Manual) Lymphocytes # (Manual) PT INR APTT D-Dimer Heparin Anti-Xa Level ABG pH POC ABG pCO2 POC ABG pO2 ABG Oxyhemoglobin ABG Sodium ABG Potassium ABG Glucose Carboxyhemoglobin Sodium Chloride Carbon Dioxide BUN Creatinine Glucose POC Glucose 108 H 114 H Calcium Phosphorus Ferritin Total Bilirubin AST ALT Alkaline Phosphatase Lactate Dehydrogenase Total Creatine Kinase Troponin T C-Reactive Protein NT-Pro-B Natriuret Pep Total Protein Albumin Cholesterol LDL Cholesterol Direct HDL Cholesterol PTH Intact Arterial Blood Glucose Urine WBC (Auto) Urine Creatinine Heparin-induced Plt Ab Lymph Enumerat CD4/CD8 Absolute CD3 Count Absolute CD4 Count % CD8 Cells Absolute CD8 Count Absolute CD19 Count Coronavirus (PCR) HIV-1 RNA PCR copies/ml HIV-1 RNA (PCR) log 09/25/20 09/26/20 09/26/20 23:29 05:00 07:06 WBC 17.0 H RBC 3.10 L Hgb 9.6 L Hct 28.8 L MCV MCH MCHC Plt Count Lymph % (Auto) [place] % (Auto) Lymph # (Auto) [place] # (Auto) Seg Neutrophils % Seg Neuts % (Manual) Lymphocytes % (Manual) Monocytes % (Manual) Nucleated RBC % Seg Neutrophils # Seg Neutrophils # Man Abs Lymphs (Manual) Lymphocytes # (Manual) PT INR APTT D-Dimer Heparin Anti-Xa Level ABG pH POC ABG pCO2 POC ABG pO2 ABG Oxyhemoglobin ABG Sodium ABG Potassium ABG Glucose Carboxyhemoglobin Sodium Chloride Carbon Dioxide BUN Creatinine Glucose POC Glucose 111 H 115 H Calcium Phosphorus Ferritin Total Bilirubin AST ALT Alkaline Phosphatase Lactate Dehydrogenase Total Creatine Kinase Troponin T C-Reactive Protein NT-Pro-B Natriuret Pep Total Protein Albumin Cholesterol LDL Cholesterol Direct HDL Cholesterol PTH Intact Arterial Blood Glucose Urine WBC (Auto) Urine Creatinine Heparin-induced Plt Ab Lymph Enumerat CD4/CD8 Absolute CD3 Count Absolute CD4 Count % CD8 Cells Absolute CD8 Count Absolute CD19 Count Coronavirus (PCR) HIV-1 RNA PCR copies/ml HIV-1 RNA (PCR) log 09/26/20 09/26/20 09/27/20 07:06 17:26 04:00 WBC RBC Hgb Hct MCV MCH MCHC Plt Count Lymph % (Auto) [place] % (Auto) Lymph # (Auto) [place] # (Auto) Seg Neutrophils % Seg Neuts % (Manual) Lymphocytes % (Manual) Monocytes % (Manual) Nucleated RBC % Seg Neutrophils # Seg Neutrophils # Man Abs Lymphs (Manual) Lymphocytes # (Manual) PT INR APTT D-Dimer Heparin Anti-Xa Level ABG pH POC ABG pCO2 POC ABG pO2 ABG Oxyhemoglobin ABG Sodium ABG Potassium ABG Glucose Carboxyhemoglobin Sodium Chloride Carbon Dioxide BUN 69 H 67 H Creatinine 2.2 H 2.3 H Glucose 107 H 121 H POC Glucose 124 H Calcium Phosphorus Ferritin Total Bilirubin AST ALT Alkaline Phosphatase Lactate Dehydrogenase Total Creatine Kinase Troponin T C-Reactive Protein NT-Pro-B Natriuret Pep Total Protein Albumin Cholesterol LDL Cholesterol Direct HDL Cholesterol PTH Intact Arterial Blood Glucose Urine WBC (Auto) Urine Creatinine Heparin-induced Plt Ab Lymph Enumerat CD4/CD8 Absolute CD3 Count Absolute CD4 Count % CD8 Cells Absolute CD8 Count Absolute CD19 Count Coronavirus (PCR) HIV-1 RNA PCR copies/ml HIV-1 RNA (PCR) log 09/27/20 09/27/20 04:00 05:00 WBC 14.6 H RBC 2.72 L Hgb 8.6 L Hct 25.8 L MCV 95 H MCH MCHC Plt Count Lymph % (Auto) 4.3 L [place] % (Auto) Lymph # (Auto) 0.6 L [place] # (Auto) 0.9 H Seg Neutrophils % 89.6 H Seg Neuts % (Manual) Lymphocytes % (Manual) Monocytes % (Manual) Nucleated RBC % Seg Neutrophils # 13.1 H Seg Neutrophils # Man Abs Lymphs (Manual) Lymphocytes # (Manual) PT INR APTT D-Dimer Heparin Anti-Xa Level ABG pH POC ABG pCO2 POC ABG pO2 ABG Oxyhemoglobin ABG Sodium ABG Potassium ABG Glucose Carboxyhemoglobin Sodium Chloride Carbon Dioxide BUN Creatinine 2.4 H Glucose POC Glucose Calcium Phosphorus Ferritin Total Bilirubin AST ALT Alkaline Phosphatase Lactate Dehydrogenase Total Creatine Kinase Troponin T C-Reactive Protein NT-Pro-B Natriuret Pep Total Protein Albumin Cholesterol LDL Cholesterol Direct HDL Cholesterol PTH Intact Arterial Blood Glucose Urine WBC (Auto) Urine Creatinine Heparin-induced Plt Ab Lymph Enumerat CD4/CD8 Absolute CD3 Count Absolute CD4 Count % CD8 Cells Absolute CD8 Count Absolute CD19 Count Coronavirus (PCR) HIV-1 RNA PCR copies/ml HIV-1 RNA (PCR) log Allied health notes reviewed: nursing
--- NOTE | 2020-09-27 13:57 | Progress Note ---
Assessment and Plan * A. fib with RVR * Telemetry reviewed: Atrial fibrillation 100s-110s. No events * Patient is currently weaned off vasopressors. Continue rate control regimen: Amiodarone 200 mg p.o. twice daily, metoprolol 25 mg p.o. twice daily. * Continue anticoagulation with Eliquis 2.5 mg twice daily in setting of renal disease * NSTEMI * Troponins elevated, subacute and nonspecific over the weekend. Suspect lab error. Repeat troponins are normal. * Echocardiogram reviewed (09/18/2020): LVEF is 40 to 45%. LV SF is mildly decreased. Mild concentric LVH. RV SF is mildly reduced. No valvular abnormalities. * LOLI with acute tubular necrosis * Patient on dialysis. Nephrology is following. * No GEMA/ARB in setting of LOLI. Avoid nephrotoxic agents. * DVT prophylaxis * Currently on Eliquis We will follow This patient was seen in conjunction with Dr Feliciano Grey who agrees with this assessment and plan of care - Patient Problems (1) AMS (altered mental status) Current Visit: Yes Status: Acute Qualifiers: Altered mental status type: somnolence Qualified Code(s): R40.0 - Somnolence (2) Acute hypoxemic respiratory failure Current Visit: Yes Status: Acute (3) Acute kidney injury (LOLI) with acute tubular necrosis (ATN) Current Visit: Yes Status: Acute (4) Atrial fibrillation with RVR Current Visit: Yes Status: Acute (5) NSTEMI (non-ST elevated myocardial infarction) Current Visit: Yes Status: Acute (6) Metabolic acidosis Current Visit: No Status: Acute (7) Systemic inflammatory response syndrome Current Visit: No Status: Acute Subjective Date of service: 09/27/20 Principal diagnosis: Ac hypoxemic resp failure; A-fib RVR; AE-CHF; LOLI; Septic shock; UTI Interval history: Patient is resting in bed. Altered mental status, agitated requiring restraints in the setting of septic shock. Telemetry reviewed: A. fib flutter/fib 110s. No events Objective Last Vital Signs Temp 97.6 F 09/27/20 12:00 Pulse 115 H 09/27/20 13:00 Resp 14 09/27/20 13:00 BP 141/106 09/27/20 13:00 Pulse Ox 100 09/27/20 13:00 - Physical Examination General: No Apparent Distress HEENT: Positive: Normocephaly, Mucus Membranes Moist Neck: Positive: neck supple. Negative: JVD/HJR Cardiac: Positive: irregularly irregular, S1/S2 Lungs: Positive: clear to auscultation, Normal Breath Sounds Neuro: Positive: Grossly Intact Abdomen: Positive: Soft Skin: Negative: Rash Musculoskeletal: No Pain Extremities: Present: lower extr. pulses. Absent: edema - Labs and Meds CBC 09/27/20 Range/Units 04:00 WBC 14.6 H (4.5-11.0) K/mm3 RBC 2.72 L (3.65-5.03) M/mm3 Hgb 8.6 L (11.8-15.2) gm/dl Hct 25.8 L (35.5-45.6) % Plt Count 175 (140-440) K/mm3 Lymph # (Auto) 0.6 L (1.2-5.4) K/mm3 [place] # (Auto) 0.9 H (0.0-0.8) K/mm3 Eos # (Auto) 0.0 (0.0-0.4) K/mm3 Baso # (Auto) 0.0 (0.0-0.1) K/mm3 Comprehensive Metabolic Panel 09/27/20 09/27/20 Range/Units 04:00 05:00 Sodium 139 (137-145) mmol/L Potassium 4.5 (3.6-5.0) mmol/L Chloride 102.8 (98-107) mmol/L Carbon Dioxide 30 (22-30) mmol/L BUN 67 H (9-20) mg/dL Creatinine 2.3 H 2.4 H (0.8-1.3) mg/dL Glucose 121 H (75-100) mg/dL Calcium 8.9 (8.4-10.2) mg/dL - Imaging and Cardiology EKG: report reviewed, image reviewed Echo: report reviewed (09/18/2020 - EF 40-45%, mild concentric LVH, RV sys fxn mildly reduced, no significant valvular abnormality) - EKG Supraventricular dysrhythmia: atrial fibrillation Myocardial infarction: septal [place] (old age or ind, anterior [place] (old age or i - Allied health notes Allied health notes reviewed: nursing
--- NOTE | 2020-09-27 14:07 | Progress Note ---
Assessment and Plan Cultures: 09/18/2020 COVID-19 PCR: Positive 09/18/2020 blood culture: E.coli 09/18/2020 Urine culture: E.coli 09/19/2020 sputum culture: Contaminated with oral secretions 09/19/2020 HIV RNA PCR: 67 copies per mL Assessment: 70-year-old male with history of HIV infection (unknown CD4/VL/ART compliance), hypertension, atrial fibrillation on Xarelto, initially admitted on 09/15/2020 RVR A. fib, LOLI, left AMA, came back to the ED on 09/17/2020 secondary to worsening shortness of breath for 3 days: #Severe sepsis with septic shock: Shock resolved. Secondary to E.coli bacteremia likely from UTI. HIDA scan negative for acute cholecystitis. #E.coli bacteremia: Likely from UTI. RUQ US did show a large GB stone. Labs initially with elevated LFTs and bilirubin. HIDA negative. Was seen by Gen Surg. #UTI: Urinalysis with 71 WBCs and moderate leukocyte esterase. Urine culture with E.coli #COVID-19: PCR positive. On supplemental oxygen. Was not given remdesivir due to renal failure. #LOLI: renally dose meds and antimicrobials. On HD. #Acute respiratory hypoxic failure: on 3L NC. #HIV: listed meds are Descovy + Tivicay. Likely good control since his HIV RNA PCR came back at 67 copies/ml. CD4 is 70 but 30%, overall count is low likely due to steroids. OI prophylaxis is not needed. #Acute encephalopathy: ?multifactorial. CT head unremarkable for acute process. Remains confused. Recommendations: -continue IV ceftriaxone 2 g daily ending 09/28/2020 (total 10 days) -complete steroid course for COVID-19 -continue renally dosed antiretroviral therapy based on formulary/therapeutic interchange: TDF + FTC + DTG -anticoag per protocol, on eliquis Will follow. Arlene Patel MD Infectious Diseases [employer] Admin [facility] ([facility] M [phone] O [phone] Subjective Date of service: 09/27/20 Principal diagnosis: Ac hypoxemic resp failure; A-fib RVR; AE-CHF; LOLI; Septic shock; UTI Interval history: Patient remains confused, no fever, on nasal cannula oxygen 3 L. Objective - Exam Narrative Exam: General appearance: Alert, in no acute distress, on nasal cannula oxygen Eyes: anicteric sclerae, moist conjunctivae; no lid-lag; PERRLA HENT: Normocephalic, Atraumatic; normal external ears, nares open, oropharynx limited partially edentulous Neck: supple, tracheal midline, no JVD Lungs: Bilateral scattered rhonchi CV: RRR Abdomen: Soft, tender to palpation grimaces on the right upper quadrant Extremities: No edema Skin: No rash. Psych: Anxious Neuro: Alert, confused - Constitutional Vitals: Vital Signs Temp Pulse Resp BP Pulse Ox 97.6 F 115 H 14 141/106 100 09/27/20 12:00 09/27/20 13:00 09/27/20 13:00 09/27/20 13:00 09/27/20 13:00 Temperature -Last 24 Hours Temperature 97.6 F Temperature 98.4 F Temperature 97.2 F Temperature 97.5 F Temperature 97.8 F - Labs CBC & Chem 7: 09/27/20 04:00 09/27/20 05:00 Labs: Abnormal lab results 09/22/20 09/26/20 09/27/20 Range/Units 15:12 17:26 04:00 WBC (4.5-11.0) K/mm3 RBC (3.65-5.03) M/mm3 Hgb (11.8-15.2) gm/dl Hct (35.5-45.6) % MCV (84-94) fl Lymph % (Auto) (13.4-35.0) % Lymph # (Auto) (1.2-5.4) K/mm3 Arthur # (Auto) (0.0-0.8) K/mm3 Seg Neutrophils % (40.0-70.0) % Seg Neutrophils # (1.8-7.7) K/mm3 BUN 67 H (9-20) mg/dL Creatinine 2.3 H (0.8-1.3) mg/dL Glucose 121 H (75-100) mg/dL POC Glucose 124 H (70-105) mg/dL Heparin-induced Plt Ab Weak positive H (Negative) 09/27/20 09/27/20 Range/Units 04:00 05:00 WBC 14.6 H (4.5-11.0) K/mm3 RBC 2.72 L (3.65-5.03) M/mm3 Hgb 8.6 L (11.8-15.2) gm/dl Hct 25.8 L (35.5-45.6) % MCV 95 H (84-94) fl Lymph % (Auto) 4.3 L (13.4-35.0) % Lymph # (Auto) 0.6 L (1.2-5.4) K/mm3 Arthur # (Auto) 0.9 H (0.0-0.8) K/mm3 Seg Neutrophils % 89.6 H (40.0-70.0) % Seg Neutrophils # 13.1 H (1.8-7.7) K/mm3 BUN (9-20) mg/dL Creatinine 2.4 H (0.8-1.3) mg/dL Glucose (75-100) mg/dL POC Glucose (70-105) mg/dL Heparin-induced Plt Ab (Negative)
--- NOTE | 2020-09-27 14:15 | Progress Note ---
Assessment and Plan Assessment and plan: This is 70-year-old male with HIV, HTN, and atrial fibrillation (currently on therapeutic anticoagulation with Xarelto) presents the emergency department on 09/17 with complaints of shortness of breath over the past 3 days and on arrival of EMS patient was found to have a pulse oximetry of 85% on room air. He was placed on supplemental oxygenation. Of note patient was admitted on 09/15 with similar complaints and found to have A. fib with RVR, hyponatremia, hypomagnesemia and acute kidney injury and left AMA. He was admitted to the hospital service with atrial fibrillation with RVR, SIRs, metabolic acidosis, acute kidney injury, acute hypoxic respiratory failure, hypotension, and CHF . Cardiology, CCM and nephrology were consulted. 09/18/2020. Await echocardiogram to assess for diastolic versus systolic etiology. Patient with elevated BNP greater than 18,000. Patient apparently was admitted approximately 3 days ago but left AMA. Cardiology consulted for heart failure, A. fib with RVR and elevated troponin. Patient denies chest pain. Also, patient with elevated creatinine of 4.7 with creatinine 2.8 on recent admission. We do not have a previous creatinine as a baseline to compar e. Nephrology consultation pending. Follow-up renal ultrasound. Patient with coagulopathy and INR 3.04. Unsure if patient was on anticoagulation for A. fib. 09/19/2020. Patient likely with vasomotor acute kidney injury in the setting of shock. Follow-up urine studies and renal ultrasound. Creatinine continues to worsen. Nephrology following. Etiology of respiratory failure secondary to hea rt failure with Covid testing pending. Elevated troponin suggestive of NSTEMI. Continue diuresis with Lasix. Continue IV amiodarone for rate control of A. fib with RVR. Continue heparin. Follow-up echocardiogram. Cardiology following. 09/20/2020: This time my examination patient was on BiPAP therapy and now is on nasal cannula. Patient remains on amiodarone drip with heart rate in the 130s t o 140s and vasopressor support with Levophed. Today nephrology will initiate hemodialysis given worsening renal function studies and has stopped diuresis with Lasix. ID resumed antiretroviral therapy and ordered a HIDA scan. Today the patient received a temporary Vas-Cath and is COVID-19 PCR resulted as positive. Patient will be started on vitamin C, vitamin D and zinc and dexamethasone given need for supplemental oxygenation. 09/21: Ecoli UTI and bacteremia and ID has changed him to meropenem, Patient received HD yesterday and patient remains on amiodarone drip. He is off the floor to obtain a HIDA scan. 09/22: HIDA scan did not show acute cholecystitis. Ecoli bacteremia is sensitive to ceftriaxone and ID changed his abx. Mentation is better. BP is liable. Remains on levophed and vasopressin. We started midodrine. HIT panel pending and hem/onc consulted. 09/23: Patient noted to have unequal pupils with left >right, STAT CT head ordered. Nephro will withhold hemodialysis and assess needs as kidney function has gotten better. Patient symptomatically follows commands and is on nasal cannula. Cardiology stopped his Eliquis due to persistent thrombocytopenia. 09/24: Patient remains confused, pupils still unequal. Started on eliquis 2.5 today and he will be transferred to IMCU. 09/25: Patient remains confused, had Bipap overnight, CT abd/pelvis ordered per ID recommendations given persistent leukocytosis. Cr remains unchanged but BUN in rising. Nephrology is on the case. 09/26/2020; patient was confused and on 3 L of oxygen. ID is following the patient and continue with antiretroviral medications, no OI prophylaxis needed. Patient is on IV Rocephin lasted 09/28 per ID recommendation for E. coli bacteremia. ID ordered CT abdomen and pelvis. We will follow the results. Sulaiman wild is being followed by cardiology and they recommend to resume Eliquis with 2.5 mg p.o. twice daily, thrombocytopenia is improving. Patient is on amiodarone and metoprolol. Patient is being followed by nephrology and is on dialysis. Blood pressure was normal this morning. Patient was tachycardic in A. fib with RVR. CT head was normal. Prognosis is guarded. Continue IMCU care. 09/27: Continue IMCU care, still with unresolved Afib, will continue to adjust medications for better control. Septic Shock Acute hypoxemic respiratory failure 2/2 to volume overload/chf exacerbation Acute systolic heart failure exacerbation Atrial fibrillation with RVR Acute on chronic kidney injury Hypotension Anemia Thrombocytopenia E coli bacteremia E. coli urinary tract infection NSTEMI Elevated Ddimer Leukocytosis HIV, asymptomatic HTN Coagulopathy Transaminitis -Cardiology, CCM, Nephrology, ID, general surgery, heme/onc consulted, appreciate recommendations -09/20 COVID-19 PCR positive -Droplet/isolation precautions -Dexamethasone 6 mg p.o. (09/20-09/30) -Vitamin D, vitamin C, zinc -Vasopressor support with levophed and vasopressin, midodrine -09/17 CXR shows borderline heart size, mild central pulmonary venous congestion -09/17 renal ultrasound shows no acute findings -09/18 echocardiogram shows left ventricle systolic function mildly decreased, LVEF of 40 to 45% with mild concentric left ventricle hypertrophy, trace MR, mild TR, trace NH -09/19 abdominal ultrasound shows large gallstone within the gallbladder, no pericholecystic fluid, gallbladder wall upper limits of normal measuring 3 mm -09/21 HIDA scan shows no evidence of acute cholecystitis -09/21 BLE Dopplar US no evidence for DVT -09/23 CT head shows no acute intracranial hemorrhage or parenchymal abnormality, mild diffuse brain atrophy with commensurate ventricular enlargement which is likely age appropriate, small frontal scalp lipoma measuring 9 mm in thickness, 4 cm in length, and 4 cm in width., Sinuses and mastoid air cells are clear. -09/17 proBNP 36693 -S/p IV Lasix twice daily -09/20 nephrology initiated the patient on dialysis -Pulmonary hygiene -Bipap qhs -09/25 CT abd/pelvis without contrast pending -PO amiodarone -HIV meds per ID -IV abx therapy -HIT pending -Trend CBC, BMP, LFTs DVT/GI prophylaxis: PPI, SCDs to bilateral lower extremities while in bed, no chemical anticoagulation at this time d/t thrombocytopenia Disposition: IMCU History Interval history: This is 70-year-old male with HIV, HTN, and atrial fibrillation (currently on therapeutic anticoagulation with Xarelto) admitted with atrial fibrillation with RVR, SIRs, metabolic acidosis, acute kidney injury, acute hypoxic respiratory failure, hypotension, and CHF Patient seen and examined, No new issues reported, remains on 3 liters of oxygen Hospitalist Physical - Physical exam Narrative exam: Patient was on 3L of oxygen. The patient appeared well nourished and normally developed. Vital signs as documented. Head exam is unremarkable. No scleral icterus . Neck is without jugular venous distension, thyromegaly, or carotid bruits. Lungs are clear to auscultation. Cardiac exam reveals regular rate and Rhythm. Abdominal exam reveals normal bowel sounds, nontender, no organomegaly. Extremities are nonedematous and both femoral and pedal pulses are normal. 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 - Constitutional Vitals: Temp Pulse Resp BP Pulse Ox 97.6 F 115 H 14 141/106 100 09/27/20 12:00 09/27/20 13:00 09/27/20 13:00 09/27/20 13:00 09/27/20 13:00 General appearance: Present: no acute distress HEART Score - HEART Score Troponin: Troponin T < 0.010 ng/mL (0.00-0.029) 09/22/20 05:38 Results - Labs CBC & Chem 7: 09/28/20 04:46 09/28/20 04:46 Labs: Laboratory Last Values WBC 14.6 K/mm3 (4.5-11.0) H 09/27/20 04:00 RBC 2.72 M/mm3 (3.65-5.03) L 09/27/20 04:00 Hgb 8.6 gm/dl (11.8-15.2) L 09/27/20 04:00 Hct 25.8 % (35.5-45.6) L 09/27/20 04:00 MCV 95 fl (84-94) H 09/27/20 04:00 MCH 32 pg (28-32) 09/27/20 04:00 MCHC 33 % (32-34) 09/27/20 04:00 RDW 13.4 % (13.2-15.2) 09/27/20 04:00 Plt Count 175 K/mm3 (140-440) 09/27/20 04:00 Lymph % (Auto) 4.3 % (13.4-35.0) L 09/27/20 04:00 [place] % (Auto) 6.0 % (0.0-7.3) 09/27/20 04:00 Eos % (Auto) 0.1 % (0.0-4.3) 09/27/20 04:00 Baso % (Auto) 0.0 % (0.0-1.8) 09/27/20 04:00 Lymph # (Auto) 0.6 K/mm3 (1.2-5.4) L 09/27/20 04:00 [place] # (Auto) 0.9 K/mm3 (0.0-0.8) H 09/27/20 04:00 Eos # (Auto) 0.0 K/mm3 (0.0-0.4) 09/27/20 04:00 Baso # (Auto) 0.0 K/mm3 (0.0-0.1) 09/27/20 04:00 Add Manual Diff Complete 09/23/20 04:36 Total Counted 100 09/23/20 04:36 Seg Neutrophils % 89.6 % (40.0-70.0) H 09/27/20 04:00 Seg Neuts % (Manual) 91.0 % (40.0-70.0) H 09/23/20 04:36 Band Neutrophils % 2.0 % 09/23/20 04:36 Lymphocytes % (Manual) 2.0 % (13.4-35.0) L 09/23/20 04:36 Monocytes % (Manual) 5.0 % (0.0-7.3) 09/23/20 04:36 Nucleated RBC % Not Reportable 09/23/20 04:36 Seg Neutrophils # 13.1 K/mm3 (1.8-7.7) H 09/27/20 04:00 Seg Neutrophils # Man 12.9 K/mm3 (1.8-7.7) H 09/23/20 04:36 Band Neutrophils # 0.3 K/mm3 09/23/20 04:36 Abs Lymphs (Manual) 223 cells/uL (850-3900) L 09/19/20 13:35 Lymphocytes # (Manual) 0.3 K/mm3 (1.2-5.4) L 09/23/20 04:36 Abs React Lymphs (Man) 0.0 K/mm3 09/23/20 04:36 Monocytes # (Manual) 0.7 K/mm3 (0.0-0.8) 09/23/20 04:36 Eosinophils # (Manual) 0.0 K/mm3 (0.0-0.4) 09/23/20 04:36 Basophils # (Manual) 0.0 K/mm3 (0.0-0.1) 09/23/20 04:36 Metamyelocytes # 0.0 K/mm3 09/23/20 04:36 Myelocytes # 0.0 K/mm3 09/23/20 04:36 Promyelocytes # 0.0 K/mm3 09/23/20 04:36 Blast Cells # 0.0 K/mm3 09/23/20 04:36 WBC Morphology Not Reportable 09/23/20 04:36 Hypersegmented Neuts Not Reportable 09/23/20 04:36 Hyposegmented Neuts Not Reportable 09/23/20 04:36 Hypogranular Neuts Not Reportable 09/23/20 04:36 Smudge Cells Not Reportable 09/23/20 04:36 Toxic Granulation Not Reportable 09/23/20 04:36 Toxic Vacuolation Not Reportable 09/23/20 04:36 Dohle Bodies Not Reportable 09/23/20 04:36 Pelger-Huet Anomaly Not Reportable 09/23/20 04:36 Vinh Rods Not Reportable 09/23/20 04:36 Platelet Estimate Consistent w auto 09/23/20 04:36 Clumped Platelets Not Reportable 09/23/20 04:36 Plt Clumps, EDTA Not Reportable 09/23/20 04:36 Large Platelets Not Reportable 09/23/20 04:36 Giant Platelets Not Reportable 09/23/20 04:36 Platelet Satelliting Not Reportable 09/23/20 04:36 Plt Morphology Comment Not Reportable 09/23/20 04:36 RBC Morphology Not Reportable 09/23/20 04:36 Dimorphic RBCs Not Reportable 09/23/20 04:36 Polychromasia Not Reportable 09/23/20 04:36 Hypochromasia Not Reportable 09/23/20 04:36 Poikilocytosis Not Reportable 09/23/20 04:36 Anisocytosis 1+ 09/23/20 04:36 Microcytosis Not Reportable 09/23/20 04:36 Macrocytosis Not Reportable 09/23/20 04:36 Spherocytes Not Reportable 09/23/20 04:36 Pappenheimer Bodies Not Reportable 09/23/20 04:36 Sickle Cells Not Reportable 09/23/20 04:36 Target Cells Few 09/23/20 04:36 Tear Drop Cells Not Reportable 09/23/20 04:36 Ovalocytes Not Reportable 09/23/20 04:36 Helmet Cells Not Reportable 09/23/20 04:36 [place] Bodies Not Reportable 09/23/20 04:36 [place] Rings Not Reportable 09/23/20 04:36 Vita Cells Not Reportable 09/23/20 04:36 Bite Cells Not Reportable 09/23/20 04:36 Crenated Cell Not Reportable 09/23/20 04:36 Elliptocytes Not Reportable 09/23/20 04:36 Acanthocytes (Spur) Not Reportable 09/23/20 04:36 Rouleaux Not Reportable 09/23/20 04:36 Hemoglobin C Crystals Not Reportable 09/23/20 04:36 Schistocytes Not Reportable 09/23/20 04:36 Malaria parasites Not Reportable 09/23/20 04:36 Zachary Bodies Not Reportable 09/23/20 04:36 Hem Pathologist Commnt No 09/23/20 04:36 PT 15.7 Sec. (12.2-14.9) H 09/24/20 12:13 INR 1.27 (0.87-1.13) H 09/24/20 12:13 APTT 25.7 Sec. (24.2-36.6) 09/24/20 12:13 D-Dimer 1772.86 ng/mlDDU (0-234) H 09/24/20 05:00 Heparin Anti-Xa Level 0.10 U.I./ml (0.3-0.7) L 09/20/20 04:00 Heparin Anti-Xa, Unfract Negative (Negative) 09/22/20 15:12 ABG pH 7.508 (7.320-7.450) H 09/17/20 10:28 POC ABG pCO2 22.8 mmHg (32.0-48.0) L 09/17/20 10:28 POC ABG pO2 66.8 mmHg (83-108) L 09/17/20 10:28 POC ABG HCO3 17.7 09/17/20 10:28 ABG O2 Saturation 93.4 (0-100) 09/17/20 10:28 POC ABG Base Excess -3.5 09/17/20 10:28 ABG Hemoglobin 12.7 (12.0-17.5) 09/17/20 10:28 ABG Oxyhemoglobin 92.7 (94-98) L 09/17/20 10:28 ABG Methemoglobin 0.3 (0.0-1.5) 09/17/20 10:28 ABG Sodium 127.4 mmol/L (136.0-145.0) L 09/17/20 10:28 ABG Potassium 4.7 mmol/L (3.40-4.50) H 09/17/20 10:28 ABG Chloride 101.0 mmol/L (98-107) 09/17/20 10:28 ABG Glucose 121 mg/dL (65-95) H 09/17/20 10:28 Carboxyhemoglobin 0.4 (0.5-1.5) L 09/17/20 10:28 FiO2 % 21 09/17/20 10:28 Sodium 139 mmol/L (137-145) 09/27/20 04:00 Potassium 4.5 mmol/L (3.6-5.0) 09/27/20 04:00 Chloride 102.8 mmol/L (98-107) 09/27/20 04:00 Carbon Dioxide 30 mmol/L (22-30) 09/27/20 04:00 Anion Gap 11 mmol/L 09/27/20 04:00 BUN 67 mg/dL (9-20) H 09/27/20 04:00 Creatinine 2.4 mg/dL (0.8-1.3) H 09/27/20 05:00 Estimated GFR 33 ml/min 09/27/20 05:00 BUN/Creatinine Ratio 29 % 09/27/20 04:00 Glucose 121 mg/dL (75-100) H 09/27/20 04:00 POC Glucose 104 mg/dL (70-105) 09/27/20 11:22 Lactic Acid 1.00 mmol/L (0.7-2.0) 09/20/20 17:10 Calcium 8.9 mg/dL (8.4-10.2) 09/27/20 04:00 Phosphorus 2.90 mg/dL (2.5-4.5) 09/26/20 07:06 Magnesium 1.70 mg/dL (1.7-2.3) 09/26/20 07:06 Ferritin 1190.0 ng/mL (30.0-300.0) H 09/24/20 05:00 Total Bilirubin 2.40 mg/dL (0.1-1.2) H 09/21/20 Unknown AST 31 units/L (5-40) 09/21/20 Unknown ALT 57 units/L (7-56) H 09/21/20 Unknown Alkaline Phosphatase < 5 units/L (35-129) L 09/21/20 Unknown Lactate Dehydrogenase 276 units/L (91-180) H 09/24/20 05:00 Total Creatine Kinase 20 units/L (55-170) L 09/19/20 03:30 Troponin T < 0.010 ng/mL (0.00-0.029) 09/22/20 05:38 C-Reactive Protein 4.20 mg/dL (0.00-1.30) H 09/24/20 05:00 NT-Pro-B Natriuret Pep 57469 pg/mL (0-900) H 09/17/20 10:47 Total Protein 6.7 g/dL (6.3-8.2) 09/21/20 Unknown Albumin 1.9 g/dL (3.9-5) L 09/21/20 Unknown Albumin/Globulin Ratio 0.4 % 09/21/20 Unknown Triglycerides 137 mg/dL (2-149) 09/17/20 13:54 Cholesterol 48 mg/dL (50-199) L 09/17/20 13:54 LDL Cholesterol Direct 4 mg/dL (50-130) L 09/17/20 13:54 HDL Cholesterol 9 mg/dL (40-59) L 09/17/20 13:54 Cholesterol/HDL Ratio 5.33 % 09/17/20 13:54 Free PSA See scanned result 09/17/20 17:35 % Free PSA Calc See scanned result 09/17/20 17:35 Total PSA See scanned result 09/17/20 17:35 Procalcitonin 2.10 ng/mL (<0.15) 09/25/20 06:40 PTH Intact 161.4 pg/mL (15-65) H 09/19/20 03:30 Arterial Blood Glucose 121 mg/dL (65-95) H 09/17/20 10:28 Arterial Blood Ionized Calcium 5.0 mg/dL (4.6-5.3) 09/17/20 10:28 Urine Color Yellow (Yellow) 09/18/20 12:00 Urine Turbidity Cloudy (Clear) 09/18/20 12:00 Urine pH 5.0 (5.0-7.0) 09/18/20 12:00 Ur Specific [place] 1.009 (1.003-1.030) 09/18/20 12:00 Urine Protein 30 mg/dl mg/dL (Negative) 09/18/20 12:00 Urine Glucose (UA) Neg mg/dL (Negative) 09/18/20 12:00 Urine Ketones Neg mg/dL (Negative) 09/18/20 12:00 Urine Blood Sm (Negative) 09/18/20 12:00 Urine Nitrite Neg (Negative) 09/18/20 12:00 Urine Bilirubin Neg (Negative) 09/18/20 12:00 Urine Urobilinogen < 2.0 mg/dL (<2.0) 09/18/20 12:00 Ur Leukocyte Esterase Mod (Negative) 09/18/20 12:00 Urine WBC (Auto) 71.0 /HPF (0.0-6.0) H 09/18/20 12:00 Urine RBC (Auto) 2.0 /HPF (0.0-6.0) 09/18/20 12:00 U Epithel Cells (Auto) 1.0 /HPF (0-13.0) 09/18/20 12:00 Urine Bacteria (Auto) 4+ /HPF (Negative) 09/18/20 12:00 Urine WBC Clumps 2+ /HPF 09/18/20 12:00 Hyaline Casts 3 /LPF 09/18/20 12:00 Granular Casts 3 /LPF 09/18/20 12:00 Urine Mucus Few /HPF 09/18/20 12:00 Urine Eosinophils None seen (None Seen) 09/19/20 03:15 Urine Creatinine 61.0 mg/dL (0.1-20.0) H 09/18/20 12:00 Urine Sodium 62 mmol/L 09/18/20 12:00 Random Vancomycin 12.7 ug/mL (0-40.0) 09/19/20 03:30 Heparin-induced Plt Ab Weak positive (Negative) H 09/22/20 15:12 UF Heparin High Dose 0 % Release 09/22/20 15:12 [place] UFH Low Dose 0.1 0 % Release 09/22/20 15:12 [place] UFH Low Dose 0.5 0 % Release 09/22/20 15:12 Lymph Enumerat CD4/CD8 0.70 (0.86-5.00) L 09/19/20 13:35 % CD3 Cells 79 % (57-85) 09/19/20 13:35 Absolute CD3 Count 175 cells/uL (840-3060) L 09/19/20 13:35 % CD4 Cells 31 % (30-61) 09/19/20 13:35 Absolute CD4 Count 70 cells/uL (490-1740) L 09/19/20 13:35 % CD8 Cells 45 % (12-42) H 09/19/20 13:35 Absolute CD8 Count 101 cells/uL (180-1170) L 09/19/20 13:35 % CD19 Cells 12 % (6-29) 09/19/20 13:35 Absolute CD19 Count 26 cells/uL (110-660) L 09/19/20 13:35 Coronavirus (PCR) Positive (Negative) A 09/18/20 09:39 Hepatitis A IgM Ab Non-reactive (NonReactive) 09/20/20 17:10 Hep Bs Antigen Non-reactive (Negative) 09/20/20 17:10 Hep B Core IgM Ab Non-reactive (NonReactive) 09/20/20 17:10 Hepatitis C Antibody Non-reactive (NonReactive) 09/20/20 17:10 HIV-1 RNA PCR copies/ml 67 Copies/mL H 09/19/20 13:35 HIV-1 RNA (PCR) log 1.83 Log cps/mL H 09/19/20 13:35 Gardner/IV: Voiding Method Condom Catheter Active Medications - Current Medications Current Medications: Generic Name Dose Route Start Last Admin Trade Name Freq PRN Reason Stop Dose Admin Acetaminophen 650 mg 09/17/20 13:52 09/27/20 12:41 Acetaminophen 325 Mg Tab PO 650 mg Q4H PRN Administration Pain MILD(1-3)/Fever >100.5/ANGEL Albuterol 2.5 mg 09/17/20 13:52 09/17/20 20:47 Albuterol 2.5 Mg/3 Ml Nebu IH 2.5 mg Q4HRT PRN Administration Shortness Of Breath Amiodarone HCl 200 mg 09/24/20 22:00 09/27/20 09:23 Amiodarone 200 Mg Tab PO 200 mg BID EDIE Administration Lipase/Protease/Amylase 1 each 09/20/20 13:10 Lipase 10,500/Protease 25,000/Amylase 43,750 (Units) Dr Patrick FEEDTUBE PRN PRN For Clogged Feeding Tube Apixaban 2.5 mg 09/24/20 12:00 09/27/20 09:22 Apixaban 2.5 Mg Tab PO 2.5 mg Q12HR EDIE Administration Protocol Ascorbic Acid 500 mg 09/20/20 22:00 09/27/20 09:23 Ascorbic Acid 500 Mg Tab PO 500 mg BID EDIE Administration Cholecalciferol 1,000 unit 09/21/20 10:00 09/27/20 09:21 Cholecalciferol (Vit D3) 1000 Unit (25 Mcg) Tab PO 1,000 unit QDAY EDIE Administration Dexamethasone 6 mg 09/20/20 17:00 09/27/20 09:22 Dexamethasone 4 Mg Tab PO 09/29/20 10:01 6 mg QDAY EDIE Administration Emtricitabine 200 mg 09/20/20 12:00 09/24/20 11:00 Emtricitabine 200 Mg Cap PO 200 mg Q96H EDIE Administration Famotidine 20 mg 09/24/20 10:00 09/27/20 09:22 Famotidine 20 Mg Tab PO 20 mg DAILY EDIE Administration Heparin Sodium (Porcine) 3,000 unit 09/20/20 10:06 Heparin 10,000 Units/10 Ml Vial IV VIRGIL PRN hemodialysis Sodium Chloride 100 mls @ 999 mls/hr 09/20/20 10:06 Nacl 0.9% IV VIRGIL PRN Hypotension Ceftriaxone Sodium 2 gm in 100 mls @ 200 mls/hr 09/22/20 13:00 09/27/20 09:23 Rocephin/Ns 2 Gm/100 Ml IV 09/28/20 10:29 200 mls/hr Q24HR EDIE Administration Protocol Metoprolol Tartrate 5 mg 09/19/20 19:06 09/24/20 10:59 Metoprolol Tartrate 5 Mg/5 Ml Inj IV 5 mg Q8HR PRN Administration HR > 135 Minute Metoprolol Tartrate 25 mg 09/24/20 22:00 09/27/20 09:22 Metoprolol Tartrate 25 Mg Tab PO 25 mg BID EDIE Administration Midodrine 5 mg 09/22/20 12:00 09/27/20 11:07 Midodrine 5 Mg Tab PO 5 mg TID@0800,1200,1600 EDIE Administration Ondansetron HCl 4 mg 09/17/20 13:52 Ondansetron 4 Mg/2 Ml Inj IV Q8H PRN Nausea And Vomiting Oxycodone HCl 5 mg 09/21/20 13:14 09/27/20 09:25 Oxycodone 5 Mg Tab PO 5 mg Q6H PRN Administration Pain, Moderate (4-6) Simple Syrup 15 ml 09/20/20 13:10 Simple Syrup 15 Ml FEEDTUBE PRN PRN Hypoglycemia Simple Syrup 30 ml 09/20/20 13:10 Simple Syrup 15 Ml FEEDTUBE PRN PRN Hypoglycemia Sodium Bicarbonate 325 mg 09/20/20 13:10 Sodium Bicarbonate 325 Mg Tab FEEDTUBE PRN PRN For Clogged Feeding Tube Sodium Chloride 10 ml 09/17/20 22:00 09/27/20 09:23 Sodium Chloride 0.9% 10 Ml Flush Syringe IV Not Given BID EDIE Sodium Chloride 10 ml 09/17/20 13:52 09/24/20 09:15 Sodium Chloride 0.9% 10 Ml Flush Syringe IV 10 ml PRN PRN Administration LINE FLUSH Tenofovir Disoproxil Fumarate 300 mg 09/20/20 22:00 09/20/20 22:25 Tenofovir 300 Mg Tab PO 300 mg Mo EDIE Administration Zinc Sulfate 220 mg 09/21/20 10:00 09/27/20 09:21 Zinc Sulfate 220 Mg Cap PO 220 mg QDAY EDIE Administration Nutrition/Malnutrition Assess - Dietary Evaluation Nutrition/Malnutrition Findings: Nutrition Notes Start: 09/18/20 11:30 Freq: Status: Active Protocol: Document 09/27/20 13:30 MELISSA (Rec: 09/27/20 13:40 MELISSA [id number]) Nutrition Notes Initial or Follow up Reassessment Current Diagnosis Acute Kidney Injury,Sepsis, Hypertension,Heart Failure, Respiratory Failure Other Pertinent Diagnosis COVID-19 (+), AMS, UTI, afib with RVR, HIV (+) Current Diet TF - Nepro at 45ml/hr Labs/Tests BUN 67 Cr 2.3 Pertinent Medications Reviewed Height 6 ft 1 in Weight 73 kg [place] Body Weight (kg) 83.63 BMI 21.2 Weight Status Underweight Subjective/Other Information Pt pulled out NGT yesterday, however, it was re-inserted and confirmed by MARQUESIlia. Spoke with RN via phone at 13:28. Pt tolerating TF at goal rate. Percent of energy/protein needs met: 100% energy 99% pro Burn Absent Trauma Absent #2 Nutrition Diagnosis Inadequate oral intake Diagnosis Progress(for reassessment Continues documentation) Is patient on ventilator? No Is Patient Ambulatory and/or Out of Bed No REE-([place]-St. Jeor-confined to bed) 1858.500 Kcal/Kg value to use for calculation 30 Approximate Energy Requirements Using 2190 kcal/Kg Calculation Used for Recommendations Kcal/kg Additional Notes Pro needs >1.2g/kg: >88g/day Fluid needs 1-1.5L/day Nutrition Intervention Nutrition Support: Continue Nepro at 45 ml/hr with a free water flush of 200 ml q4h Kcal 1,944 Protein (gm) 87 Fluid (mL) 785 Goal #1 TF tolerance Goal #2 TF to meet 75-100% energy and pro needs Goal #3 Wt maintenance and/or gain Follow-Up By: 10/04/20 Additional Comments F/U: stable TF, wt
--- NOTE | 2020-09-27 16:09 | Progress Note ---
Assessment and Plan 70 YO Male with HIV, HTN, Atrial Fib currently of therapeutic anticoagulation with Xarelto presents to ED for evaluation. Patient reports "I just can't breathe". Patient states that he has experienced shortness of breath over the past 3 days with persistently worsening symptoms over the same timeframe. EMS notified and upon arrival the patient was found to be in distress with a pulse oximetry of 85% on room air. The patient was placed on supplemental oxygen and subsequently transported to [facility] for further care and evaluation of the aforementioned symptoms. The patient was admitted to this hospital 2 days ago, 09/15, for similar complaints and was found to have A. fib with RVR, hyponatremia, hypomagnesemia and acute kidney injury. Shortly after the patient was admitted he left AMA. The patient was seen and evaluated in the emergency department. All lab and imaging studies reviewed. The patient was also found to have a pulse oximetry of 86% on room air which is consistent with acute hypoxemic respiratory failure. The patient was found to have atrial fibrillation with rapid ventricular response, metabolic acidosis, acute kidney injury, as well as symptoms consistent with acute CHF decompensation. The patient was found to be hypotensive with a blood pressure of 78/43 which resulted in a MAP less than 65. Patient admitted to [facility] due to increased risk of cardiopulmonary decompensation. Patient treated with antiarrhythmic therapy in the emergency department, and initiated on CHF protocol. Cardiology , Nepro logy and pulmonary and critical care consulted. Patient awake. On 3L O2. O2 saturation running 98%. BiPap 20/8, rate of 10, FiO2 40% STANDBY in room. Patient appears depressed. No acute respiratory distress at rest. Patient afebrile, with leukocytosis. Patient's coronavirus test was positive. Patient's inflammatory markers: D-dimer: 1772.86, Ferritin: 1,190, Lactic: 1.00, C-reactive protein: 4.20, NT Pro-BNP: 18,204, Troponin < 0.01, CPK: 20, LDH: 276 Medications include apixaban, albuterol, famotidine, dexamethasone, ceftriaxone, tenofovir. Chest x-ray done on 09/20/20 showed no acute pulmonary or pleural findings. No pneumothorax. Patient is seen in IM. I spent critical care time of 35 minutes, reviewing the chart, examining the patient, review chest xray, labs, talking to the respiratory therapy and nursing staff and work out plan of treatment in this cricall ill COVID 19 Positive patient. - Patient Problems (1) Acute hypoxemic respiratory failure Current Visit: Yes Status: Acute Plan to address problem: Patient on 3L O2. O2 saturation running 98%. BiPap 20/8, rate of 10, FiO2 40% STANDBY in room. No acute respiratory distress at rest. Medications include albuterol, dexamethasone. (2) CHF (congestive heart failure) Current Visit: Yes Status: Acute Qualifiers: Heart failure type: systolic Heart failure chronicity: acute Qualified Code(s): I50.21 - Acute systolic (congestive) heart failure Plan to address problem: Management as per cardiology (3) LOLI (acute kidney injury) Current Visit: Yes Status: Acute Plan to address problem: Management as per nephrology. (4) AMS (altered mental status) Current Visit: Yes Status: Acute Qualifiers: Altered mental status type: somnolence Qualified Code(s): R40.0 - Somnolence Plan to address problem: Management as per primary team. (5) Atrial fibrillation with RVR Current Visit: Yes Status: Acute Plan to address problem: Management as cardiology. Patient is on Apixaban (6) Coronavirus infection Current Visit: Yes Status: Acute Plan to address problem: Patients [place] virus PCR is positive. Management as per ID. (7) HIV (human immunodeficiency virus infection) Current Visit: Yes Status: Chronic Plan to address problem: Management as per ID. Patient on Tenofovir. Subjective Date of service: 09/27/20 Principal diagnosis: Ac hypoxemic resp failure; A-fib RVR; AE-CHF; LOLI; Septic shock; UTI Interval history: 70 YO Male with HIV, HTN, Atrial Fib currently of therapeutic anticoagulation with Xarelto presents to ED for evaluation. Patient reports "I just can't breathe". Patient states that he has experienced shortness of breath over the past 3 days with persistently worsening symptoms over the same timeframe. EMS notified and upon arrival the patient was found to be in distress with a pulse oximetry of 85% on room air. The patient was placed on supplemental oxygen and subsequently transported to [facility] for further care and evaluation of the aforementioned symptoms. The patient was admitted to this hospital 2 days ago, 09/15, for similar complaints and was found to have A. fib with RVR, hyponatremia, hypomagnesemia and acute kidney injury. Shortly after the patient was admitted he left AMA. The patient was seen and evaluated in the emergency department. All lab and imaging studies reviewed. The patient was also found to have a pulse oximetry of 86% on room air which is consistent with acute hypoxemic respiratory failure. The patient was found to have atrial fibrillation with rapid ventricular response, metabolic acidosis, acute kidney injury, as well as symptoms consistent with acute CHF decompensation. The patient was found to be hypotensive with a blood pressure of 78/43 which resulted in a MAP less than 65. Patient admitted to [facility] due to increased risk of cardiopulmonary decompensation. Patient treated with antiarrhythmic therapy in the emergency department, and initiated on CHF protocol. Cardiology and Nephrology and pulmonary and critical care consulted. Patient awake. On 3L O2. O2 saturation running 98%. BiPap 20/8, rate of 10, FiO2 40% STANDBY in room. Patient appears depressed. No acute respiratory distress at rest. Patient afebrile, with leukocytosis. Patient's coronavirus test was positive. Patient's inflammatory markers: D-dimer: 1772.86, Ferritin: 1,190, Lactic: 1.00, C-reactive protein: 4.20, NT Pro-BNP: 18,204, Troponin < 0.01, CPK: 20, LDH: 276 Medications include apixaban, albuterol, famotidine, dexamethasone, ceftriaxone, tenofovir, Chest x-ray done on 09/20/20 showed no acute pulmonary or pleural findings. No pneumothorax. Objective Vital Signs - 12hr 09/27/20 09/27/20 09/27/20 04:20 04:31 04:45 Temperature 97.2 F L Pulse Rate 92 H Pulse Rate [ From Monitor] Respiratory 11 L 10 L Rate Blood Pressure 116/91 O2 Sat by Pulse 100 Oximetry 09/27/20 09/27/20 09/27/20 05:00 05:30 06:00 Temperature Pulse Rate 86 106 H 107 H Pulse Rate [ From Monitor] Respiratory 15 12 9 L Rate Blood Pressure 121/80 121/80 129/99 O2 Sat by Pulse 100 100 100 Oximetry 09/27/20 09/27/20 09/27/20 06:31 07:00 07:31 Temperature Pulse Rate 96 H 102 H 81 Pulse Rate [ From Monitor] Respiratory 15 12 10 L Rate Blood Pressure 129/99 105/65 129/99 O2 Sat by Pulse 100 100 99 Oximetry 09/27/20 09/27/20 09/27/20 08:00 08:01 08:31 Temperature 98.4 F Pulse Rate 101 H 94 H 116 H Pulse Rate [ 98 H From Monitor] Respiratory 13 10 L 12 Rate Blood Pressure 146/84 146/84 O2 Sat by Pulse 99 97 99 Oximetry 09/27/20 09/27/20 09/27/20 09:01 09:03 09:22 Temperature Pulse Rate 114 H 118 H Pulse Rate [ From Monitor] Respiratory 12 Rate Blood Pressure 132/87 132/87 O2 Sat by Pulse 99 100 Oximetry 09/27/20 09/27/20 09/27/20 09:31 10:01 10:31 Temperature Pulse Rate 118 H 105 H 81 Pulse Rate [ From Monitor] Respiratory 12 10 L 13 Rate Blood Pressure 132/87 107/88 107/88 O2 Sat by Pulse 83 L 100 Oximetry 09/27/20 09/27/20 09/27/20 11:00 11:31 11:39 Temperature Pulse Rate 87 88 92 H Pulse Rate [ 92 H From Monitor] Respiratory 13 21 14 Rate Blood Pressure 121/79 107/88 O2 Sat by Pulse 100 99 99 Oximetry 09/27/20 09/27/20 09/27/20 12:00 12:31 13:00 Temperature 97.6 F Pulse Rate 87 110 H 115 H Pulse Rate [ From Monitor] Respiratory 16 11 L 14 Rate Blood Pressure 129/95 129/95 141/106 O2 Sat by Pulse 100 89 100 Oximetry 09/27/20 09/27/20 09/27/20 13:31 14:00 14:31 Temperature Pulse Rate 115 H 112 H 109 H Pulse Rate [ From Monitor] Respiratory 18 16 12 Rate Blood Pressure 141/106 125/86 141/106 O2 Sat by Pulse 100 100 Oximetry 09/27/20 15:00 Temperature Pulse Rate 115 H Pulse Rate [ From Monitor] Respiratory 14 Rate Blood Pressure 132/81 O2 Sat by Pulse 99 Oximetry Constitutional: no acute distress, alert, appears uncomfortable, other (elderly male with mildly increased respiratory effort at rest) Eyes: non-icteric ENT: oropharynx moist Neck: supple, no lymphadenopathy, no JVD Effort: mildly labored Ascultation: Bilateral: rhonchi, other (right SCVL Trialysis catheter) Percussion: Bilateral: not dull Cardiovascular: irregular rhythm Gastrointestinal: normoactive bowel sounds, soft, non-tender, non-distended Integumentary: normal Extremities: no cyanosis, no edema, pulses normal, no ischemia or petechiae Neurologic: non-focal exam (grossly), pupils equal and round, CN II-XII normal, other (delirious) Psychiatric: depressed, other (delirious) CBC and BMP: 09/27/20 04:00 09/27/20 05:00 ABG, PT/INR, D-dimer: ABG ABG pH 7.508 (7.320-7.450) H 09/17/20 10:28 POC ABG pCO2 22.8 mmHg (32.0-48.0) L 09/17/20 10:28 POC ABG pO2 66.8 mmHg (83-108) L 09/17/20 10:28 POC ABG HCO3 17.7 09/17/20 10:28 ABG O2 Saturation 93.4 (0-100) 09/17/20 10:28 PT/INR, D-dimer PT 15.7 Sec. (12.2-14.9) H 09/24/20 12:13 INR 1.27 (0.87-1.13) H 09/24/20 12:13 D-Dimer 1772.86 ng/mlDDU (0-234) H 09/24/20 05:00 Abnormal lab findings: Abnormal Labs 09/17/20 09/17/20 09/17/20 10:28 10:47 10:47 WBC 11.1 H RBC 3.44 L Hgb 11.2 L Hct 32.8 L MCV 95 H MCH MCHC Plt Count Lymph % (Auto) [place] % (Auto) Lymph # (Auto) [place] # (Auto) Seg Neutrophils % Seg Neuts % (Manual) Lymphocytes % (Manual) 4.0 L Monocytes % (Manual) Nucleated RBC % Seg Neutrophils # Seg Neutrophils # Man 10.7 H Abs Lymphs (Manual) Lymphocytes # (Manual) 0.4 L PT 32.9 H INR 3.16 H APTT 51.1 H D-Dimer Heparin Anti-Xa Level ABG pH 7.508 H POC ABG pCO2 22.8 L POC ABG pO2 66.8 L ABG Oxyhemoglobin 92.7 L ABG Sodium 127.4 L ABG Potassium 4.7 H ABG Glucose 121 H Carboxyhemoglobin 0.4 L Sodium Chloride Carbon Dioxide BUN Creatinine Glucose POC Glucose Calcium Phosphorus Ferritin Total Bilirubin AST ALT Alkaline Phosphatase Lactate Dehydrogenase Total Creatine Kinase Troponin T C-Reactive Protein NT-Pro-B Natriuret Pep Total Protein Albumin Cholesterol LDL Cholesterol Direct HDL Cholesterol PTH Intact Arterial Blood Glucose 121 H Urine WBC (Auto) Urine Creatinine Heparin-induced Plt Ab Lymph Enumerat CD4/CD8 Absolute CD3 Count Absolute CD4 Count % CD8 Cells Absolute CD8 Count Absolute CD19 Count Coronavirus (PCR) HIV-1 RNA PCR copies/ml HIV-1 RNA (PCR) log 09/17/20 09/17/20 09/17/20 10:47 10:47 13:54 WBC RBC Hgb Hct MCV MCH MCHC Plt Count Lymph % (Auto) [place] % (Auto) Lymph # (Auto) [place] # (Auto) Seg Neutrophils % Seg Neuts % (Manual) Lymphocytes % (Manual) Monocytes % (Manual) Nucleated RBC % Seg Neutrophils # Seg Neutrophils # Man Abs Lymphs (Manual) Lymphocytes # (Manual) PT INR APTT D-Dimer Heparin Anti-Xa Level ABG pH POC ABG pCO2 POC ABG pO2 ABG Oxyhemoglobin ABG Sodium ABG Potassium ABG Glucose Carboxyhemoglobin Sodium 125 L Chloride 95.3 L Carbon Dioxide 17 L BUN 64 H Creatinine 4.6 H D Glucose 104 H POC Glucose Calcium Phosphorus Ferritin Total Bilirubin AST 69 H ALT Alkaline Phosphatase Lactate Dehydrogenase Total Creatine Kinase Troponin T 0.061 H D 0.058 H C-Reactive Protein NT-Pro-B Natriuret Pep 04283 H Total Protein Albumin 1.9 L Cholesterol 48 L LDL Cholesterol Direct 4 L HDL Cholesterol 9 L PTH Intact Arterial Blood Glucose Urine WBC (Auto) Urine Creatinine Heparin-induced Plt Ab Lymph Enumerat CD4/CD8 Absolute CD3 Count Absolute CD4 Count % CD8 Cells Absolute CD8 Count Absolute CD19 Count Coronavirus (PCR) HIV-1 RNA PCR copies/ml HIV-1 RNA (PCR) log 09/17/20 09/17/20 09/17/20 16:36 17:35 17:35 WBC RBC 3.25 L Hgb 10.7 L Hct 31.1 L MCV 96 H MCH 33 H MCHC Plt Count Lymph % (Auto) [place] % (Auto) Lymph # (Auto) [place] # (Auto) Seg Neutrophils % Seg Neuts % (Manual) Lymphocytes % (Manual) Monocytes % (Manual) Nucleated RBC % Seg Neutrophils # Seg Neutrophils # Man Abs Lymphs (Manual) Lymphocytes # (Manual) PT 31.9 H INR 3.04 H APTT 50.9 H D-Dimer Heparin Anti-Xa Level ABG pH POC ABG pCO2 POC ABG pO2 ABG Oxyhemoglobin ABG Sodium ABG Potassium ABG Glucose Carboxyhemoglobin Sodium Chloride Carbon Dioxide BUN Creatinine Glucose POC Glucose Calcium Phosphorus Ferritin Total Bilirubin AST ALT Alkaline Phosphatase Lactate Dehydrogenase Total Creatine Kinase Troponin T 0.057 H C-Reactive Protein NT-Pro-B Natriuret Pep Total Protein Albumin Cholesterol LDL Cholesterol Direct HDL Cholesterol PTH Intact Arterial Blood Glucose Urine WBC (Auto) Urine Creatinine Heparin-induced Plt Ab Lymph Enumerat CD4/CD8 Absolute CD3 Count Absolute CD4 Count % CD8 Cells Absolute CD8 Count Absolute CD19 Count Coronavirus (PCR) HIV-1 RNA PCR copies/ml HIV-1 RNA (PCR) log 09/17/20 09/18/20 09/18/20 17:35 03:19 03:19 WBC RBC 3.32 L Hgb 10.9 L Hct 32.0 L MCV 96 H MCH 33 H MCHC Plt Count 138 L Lymph % (Auto) [place] % (Auto) Lymph # (Auto) [place] # (Auto) Seg Neutrophils % Seg Neuts % (Manual) 95.0 H Lymphocytes % (Manual) 3.0 L Monocytes % (Manual) Nucleated RBC % Seg Neutrophils # Seg Neutrophils # Man 8.1 H Abs Lymphs (Manual) Lymphocytes # (Manual) 0.3 L PT INR APTT D-Dimer Heparin Anti-Xa Level ABG pH POC ABG pCO2 POC ABG pO2 ABG Oxyhemoglobin ABG Sodium ABG Potassium ABG Glucose Carboxyhemoglobin Sodium Chloride Carbon Dioxide 16 L BUN 70 H Creatinine 4.6 H 4.7 H Glucose 104 H POC Glucose Calcium 8.2 L Phosphorus Ferritin Total Bilirubin 1.60 H AST 128 H ALT 67 H Alkaline Phosphatase Lactate Dehydrogenase Total Creatine Kinase Troponin T C-Reactive Protein NT-Pro-B Natriuret Pep Total Protein 5.2 L D Albumin 2.5 L Cholesterol LDL Cholesterol Direct HDL Cholesterol PTH Intact Arterial Blood Glucose Urine WBC (Auto) Urine Creatinine Heparin-induced Plt Ab Lymph Enumerat CD4/CD8 Absolute CD3 Count Absolute CD4 Count % CD8 Cells Absolute CD8 Count Absolute CD19 Count Coronavirus (PCR) HIV-1 RNA PCR copies/ml HIV-1 RNA (PCR) log 09/18/20 09/18/20 09/18/20 09:39 12:00 12:00 WBC RBC Hgb Hct MCV MCH MCHC Plt Count Lymph % (Auto) [place] % (Auto) Lymph # (Auto) [place] # (Auto) Seg Neutrophils % Seg Neuts % (Manual) Lymphocytes % (Manual) Monocytes % (Manual) Nucleated RBC % Seg Neutrophils # Seg Neutrophils # Man Abs Lymphs (Manual) Lymphocytes # (Manual) PT INR APTT D-Dimer Heparin Anti-Xa Level ABG pH POC ABG pCO2 POC ABG pO2 ABG Oxyhemoglobin ABG Sodium ABG Potassium ABG Glucose Carboxyhemoglobin Sodium Chloride Carbon Dioxide BUN Creatinine Glucose POC Glucose Calcium Phosphorus Ferritin Total Bilirubin AST ALT Alkaline Phosphatase Lactate Dehydrogenase Total Creatine Kinase Troponin T C-Reactive Protein NT-Pro-B Natriuret Pep Total Protein Albumin Cholesterol LDL Cholesterol Direct HDL Cholesterol PTH Intact Arterial Blood Glucose Urine WBC (Auto) 71.0 H Urine Creatinine 61.0 H Heparin-induced Plt Ab Lymph Enumerat CD4/CD8 Absolute CD3 Count Absolute CD4 Count % CD8 Cells Absolute CD8 Count Absolute CD19 Count Coronavirus (PCR) Positive A HIV-1 RNA PCR copies/ml HIV-1 RNA (PCR) log 09/18/20 09/18/20 09/18/20 15:07 15:07 18:33 WBC RBC Hgb 10.7 L Hct 31.3 L MCV MCH MCHC Plt Count Lymph % (Auto) [place] % (Auto) Lymph # (Auto) [place] # (Auto) Seg Neutrophils % Seg Neuts % (Manual) Lymphocytes % (Manual) Monocytes % (Manual) Nucleated RBC % Seg Neutrophils # Seg Neutrophils # Man Abs Lymphs (Manual) Lymphocytes # (Manual) PT 20.3 H INR 1.73 H APTT 40.8 H D-Dimer Heparin Anti-Xa Level 1.09 H ABG pH POC ABG pCO2 POC ABG pO2 ABG Oxyhemoglobin ABG Sodium ABG Potassium ABG Glucose Carboxyhemoglobin Sodium Chloride Carbon Dioxide BUN Creatinine Glucose POC Glucose Calcium Phosphorus Ferritin Total Bilirubin AST ALT Alkaline Phosphatase Lactate Dehydrogenase Total Creatine Kinase Troponin T C-Reactive Protein NT-Pro-B Natriuret Pep Total Protein Albumin Cholesterol LDL Cholesterol Direct HDL Cholesterol PTH Intact Arterial Blood Glucose Urine WBC (Auto) Urine Creatinine Heparin-induced Plt Ab Lymph Enumerat CD4/CD8 Absolute CD3 Count Absolute CD4 Count % CD8 Cells Absolute CD8 Count Absolute CD19 Count Coronavirus (PCR) HIV-1 RNA PCR copies/ml HIV-1 RNA (PCR) log 09/19/20 09/19/20 09/19/20 03:30 03:30 03:30 WBC RBC 3.29 L Hgb 10.9 L Hct 30.9 L MCV MCH 33 H MCHC 35 H Plt Count Lymph % (Auto) [place] % (Auto) Lymph # (Auto) [place] # (Auto) Seg Neutrophils % Seg Neuts % (Manual) Lymphocytes % (Manual) Monocytes % (Manual) Nucleated RBC % Seg Neutrophils # Seg Neutrophils # Man Abs Lymphs (Manual) Lymphocytes # (Manual) PT INR APTT D-Dimer Heparin Anti-Xa Level ABG pH POC ABG pCO2 POC ABG pO2 ABG Oxyhemoglobin ABG Sodium ABG Potassium ABG Glucose Carboxyhemoglobin Sodium 133 L Chloride Carbon Dioxide 17 L BUN 94 H Creatinine 5.0 H Glucose 120 H POC Glucose Calcium Phosphorus 6.30 H Ferritin Total Bilirubin 2.40 H AST 163 H ALT 109 H Alkaline Phosphatase 160 H Lactate Dehydrogenase Total Creatine Kinase 20 L Troponin T C-Reactive Protein NT-Pro-B Natriuret Pep Total Protein 6.2 L Albumin 2.0 L Cholesterol LDL Cholesterol Direct HDL Cholesterol PTH Intact 161.4 H Arterial Blood Glucose Urine WBC (Auto) Urine Creatinine Heparin-induced Plt Ab Lymph Enumerat CD4/CD8 Absolute CD3 Count Absolute CD4 Count % CD8 Cells Absolute CD8 Count Absolute CD19 Count Coronavirus (PCR) HIV-1 RNA PCR copies/ml HIV-1 RNA (PCR) log 09/19/20 09/19/20 09/19/20 06:35 13:35 13:35 WBC RBC Hgb Hct MCV MCH MCHC Plt Count Lymph % (Auto) [place] % (Auto) Lymph # (Auto) [place] # (Auto) Seg Neutrophils % Seg Neuts % (Manual) Lymphocytes % (Manual) Monocytes % (Manual) Nucleated RBC % Seg Neutrophils # Seg Neutrophils # Man Abs Lymphs (Manual) 223 L Lymphocytes # (Manual) PT INR APTT D-Dimer Heparin Anti-Xa Level ABG pH POC ABG pCO2 POC ABG pO2 ABG Oxyhemoglobin ABG Sodium ABG Potassium ABG Glucose Carboxyhemoglobin Sodium Chloride Carbon Dioxide BUN Creatinine Glucose POC Glucose 123 H Calcium Phosphorus Ferritin Total Bilirubin AST ALT Alkaline Phosphatase Lactate Dehydrogenase Total Creatine Kinase Troponin T C-Reactive Protein NT-Pro-B Natriuret Pep Total Protein Albumin Cholesterol LDL Cholesterol Direct HDL Cholesterol PTH Intact Arterial Blood Glucose Urine WBC (Auto) Urine Creatinine Heparin-induced Plt Ab Lymph Enumerat CD4/CD8 0.70 L Absolute CD3 Count 175 L Absolute CD4 Count 70 L % CD8 Cells 45 H Absolute CD8 Count 101 L Absolute CD19 Count 26 L Coronavirus (PCR) HIV-1 RNA PCR copies/ml 67 H HIV-1 RNA (PCR) log 1.83 H 09/19/20 09/20/20 09/20/20 23:37 04:00 04:00 WBC RBC 3.43 L Hgb 11.1 L Hct 32.2 L MCV MCH MCHC Plt Count 131 L Lymph % (Auto) [place] % (Auto) Lymph # (Auto) [place] # (Auto) Seg Neutrophils % Seg Neuts % (Manual) 88.0 H Lymphocytes % (Manual) 3.0 L Monocytes % (Manual) 9.0 H Nucleated RBC % Seg Neutrophils # Seg Neutrophils # Man 8.2 H Abs Lymphs (Manual) Lymphocytes # (Manual) 0.3 L PT INR APTT D-Dimer Heparin Anti-Xa Level 0.10 L ABG pH POC ABG pCO2 POC ABG pO2 ABG Oxyhemoglobin ABG Sodium ABG Potassium ABG Glucose Carboxyhemoglobin Sodium Chloride Carbon Dioxide BUN Creatinine Glucose POC Glucose 135 H Calcium Phosphorus Ferritin Total Bilirubin AST ALT Alkaline Phosphatase Lactate Dehydrogenase Total Creatine Kinase Troponin T C-Reactive Protein NT-Pro-B Natriuret Pep Total Protein Albumin Cholesterol LDL Cholesterol Direct HDL Cholesterol PTH Intact Arterial Blood Glucose Urine WBC (Auto) Urine Creatinine Heparin-induced Plt Ab Lymph Enumerat CD4/CD8 Absolute CD3 Count Absolute CD4 Count % CD8 Cells Absolute CD8 Count Absolute CD19 Count Coronavirus (PCR) HIV-1 RNA PCR copies/ml HIV-1 RNA (PCR) log 09/20/20 09/20/20 09/20/20 04:00 05:37 11:20 WBC RBC Hgb Hct MCV MCH MCHC Plt Count Lymph % (Auto) [place] % (Auto) Lymph # (Auto) [place] # (Auto) Seg Neutrophils % Seg Neuts % (Manual) Lymphocytes % (Manual) Monocytes % (Manual) Nucleated RBC % Seg Neutrophils # Seg Neutrophils # Man Abs Lymphs (Manual) Lymphocytes # (Manual) PT INR APTT D-Dimer Heparin Anti-Xa Level ABG pH POC ABG pCO2 POC ABG pO2 ABG Oxyhemoglobin ABG Sodium ABG Potassium ABG Glucose Carboxyhemoglobin Sodium Chloride Carbon Dioxide 16 L BUN 119 H Creatinine 6.2 H Glucose 136 H POC Glucose 137 H 108 H Calcium Phosphorus Ferritin Total Bilirubin AST ALT Alkaline Phosphatase Lactate Dehydrogenase Total Creatine Kinase Troponin T C-Reactive Protein NT-Pro-B Natriuret Pep Total Protein Albumin Cholesterol LDL Cholesterol Direct HDL Cholesterol PTH Intact Arterial Blood Glucose Urine WBC (Auto) Urine Creatinine Heparin-induced Plt Ab Lymph Enumerat CD4/CD8 Absolute CD3 Count Absolute CD4 Count % CD8 Cells Absolute CD8 Count Absolute CD19 Count Coronavirus (PCR) HIV-1 RNA PCR copies/ml HIV-1 RNA (PCR) log 09/20/20 09/20/20 09/20/20 17:10 17:10 17:10 WBC RBC Hgb Hct MCV MCH MCHC Plt Count Lymph % (Auto) [place] % (Auto) Lymph # (Auto) [place] # (Auto) Seg Neutrophils % Seg Neuts % (Manual) Lymphocytes % (Manual) Monocytes % (Manual) Nucleated RBC % Seg Neutrophils # Seg Neutrophils # Man Abs Lymphs (Manual) Lymphocytes # (Manual) PT INR APTT D-Dimer 4271.58 H Heparin Anti-Xa Level ABG pH POC ABG pCO2 POC ABG pO2 ABG Oxyhemoglobin ABG Sodium ABG Potassium ABG Glucose Carboxyhemoglobin Sodium Chloride Carbon Dioxide BUN Creatinine 6.0 H Glucose POC Glucose Calcium Phosphorus Ferritin 696.6 H Total Bilirubin AST ALT Alkaline Phosphatase Lactate Dehydrogenase Total Creatine Kinase Troponin T C-Reactive Protein NT-Pro-B Natriuret Pep Total Protein Albumin Cholesterol LDL Cholesterol Direct HDL Cholesterol PTH Intact Arterial Blood Glucose Urine WBC (Auto) Urine Creatinine Heparin-induced Plt Ab Lymph Enumerat CD4/CD8 Absolute CD3 Count Absolute CD4 Count % CD8 Cells Absolute CD8 Count Absolute CD19 Count Coronavirus (PCR) HIV-1 RNA PCR copies/ml HIV-1 RNA (PCR) log 09/20/20 09/20/20 09/20/20 17:10 18:21 23:14 WBC RBC Hgb Hct MCV MCH MCHC Plt Count Lymph % (Auto) [place] % (Auto) Lymph # (Auto) [place] # (Auto) Seg Neutrophils % Seg Neuts % (Manual) Lymphocytes % (Manual) Monocytes % (Manual) Nucleated RBC % Seg Neutrophils # Seg Neutrophils # Man Abs Lymphs (Manual) Lymphocytes # (Manual) PT INR APTT D-Dimer Heparin Anti-Xa Level ABG pH POC ABG pCO2 POC ABG pO2 ABG Oxyhemoglobin ABG Sodium ABG Potassium ABG Glucose Carboxyhemoglobin Sodium Chloride Carbon Dioxide BUN Creatinine Glucose POC Glucose 129 H 170 H Calcium Phosphorus Ferritin Total Bilirubin AST ALT Alkaline Phosphatase Lactate Dehydrogenase 209 H Total Creatine Kinase Troponin T C-Reactive Protein 10.60 H NT-Pro-B Natriuret Pep Total Protein Albumin Cholesterol LDL Cholesterol Direct HDL Cholesterol PTH Intact Arterial Blood Glucose Urine WBC (Auto) Urine Creatinine Heparin-induced Plt Ab Lymph Enumerat CD4/CD8 Absolute CD3 Count Absolute CD4 Count % CD8 Cells Absolute CD8 Count Absolute CD19 Count Coronavirus (PCR) HIV-1 RNA PCR copies/ml HIV-1 RNA (PCR) log 09/21/20 09/21/20 09/21/20 05:35 17:09 23:18 WBC RBC Hgb Hct MCV MCH MCHC Plt Count Lymph % (Auto) [place] % (Auto) Lymph # (Auto) [place] # (Auto) Seg Neutrophils % Seg Neuts % (Manual) Lymphocytes % (Manual) Monocytes % (Manual) Nucleated RBC % Seg Neutrophils # Seg Neutrophils # Man Abs Lymphs (Manual) Lymphocytes # (Manual) PT INR APTT D-Dimer Heparin Anti-Xa Level ABG pH POC ABG pCO2 POC ABG pO2 ABG Oxyhemoglobin ABG Sodium ABG Potassium ABG Glucose Carboxyhemoglobin Sodium Chloride Carbon Dioxide BUN Creatinine Glucose POC Glucose 170 H 140 H 139 H Calcium Phosphorus Ferritin Total Bilirubin AST ALT Alkaline Phosphatase Lactate Dehydrogenase Total Creatine Kinase Troponin T C-Reactive Protein NT-Pro-B Natriuret Pep Total Protein Albumin Cholesterol LDL Cholesterol Direct HDL Cholesterol PTH Intact Arterial Blood Glucose Urine WBC (Auto) Urine Creatinine Heparin-induced Plt Ab Lymph Enumerat CD4/CD8 Absolute CD3 Count Absolute CD4 Count % CD8 Cells Absolute CD8 Count Absolute CD19 Count Coronavirus (PCR) HIV-1 RNA PCR copies/ml HIV-1 RNA (PCR) log 09/21/20 09/21/20 09/21/20 Unknown Unknown Unknown WBC RBC 3.56 L Hgb 11.3 L Hct 33.2 L MCV MCH MCHC Plt Count 125 L Lymph % (Auto) [place] % (Auto) Lymph # (Auto) [place] # (Auto) Seg Neutrophils % Seg Neuts % (Manual) 90.0 H Lymphocytes % (Manual) 8.0 L Monocytes % (Manual) Nucleated RBC % 1.0 H Seg Neutrophils # Seg Neutrophils # Man 9.4 H Abs Lymphs (Manual) Lymphocytes # (Manual) 0.8 L PT 16.8 H INR 1.36 H APTT D-Dimer Heparin Anti-Xa Level ABG pH POC ABG pCO2 POC ABG pO2 ABG Oxyhemoglobin ABG Sodium ABG Potassium ABG Glucose Carboxyhemoglobin Sodium Chloride Carbon Dioxide BUN 83 H Creatinine 4.3 H Glucose 163 H POC Glucose Calcium Phosphorus Ferritin Total Bilirubin 2.40 H AST ALT 57 H Alkaline Phosphatase < 5 L Lactate Dehydrogenase Total Creatine Kinase Troponin T C-Reactive Protein NT-Pro-B Natriuret Pep Total Protein Albumin 1.9 L Cholesterol LDL Cholesterol Direct HDL Cholesterol PTH Intact Arterial Blood Glucose Urine WBC (Auto) Urine Creatinine Heparin-induced Plt Ab Lymph Enumerat CD4/CD8 Absolute CD3 Count Absolute CD4 Count % CD8 Cells Absolute CD8 Count Absolute CD19 Count Coronavirus (PCR) HIV-1 RNA PCR copies/ml HIV-1 RNA (PCR) log 09/22/20 09/22/20 09/22/20 05:38 05:38 05:38 WBC 15.8 H RBC 3.36 L Hgb 10.8 L Hct 31.0 L MCV MCH MCHC 35 H Plt Count 68 L Lymph % (Auto) 3.1 L [place] % (Auto) 10.7 H Lymph # (Auto) 0.5 L [place] # (Auto) 1.7 H Seg Neutrophils % 85.9 H Seg Neuts % (Manual) Lymphocytes % (Manual) Monocytes % (Manual) Nucleated RBC % Seg Neutrophils # 13.6 H Seg Neutrophils # Man Abs Lymphs (Manual) Lymphocytes # (Manual) PT INR APTT D-Dimer 3281.49 H Heparin Anti-Xa Level ABG pH POC ABG pCO2 POC ABG pO2 ABG Oxyhemoglobin ABG Sodium ABG Potassium ABG Glucose Carboxyhemoglobin Sodium Chloride Carbon Dioxide BUN 61 H Creatinine 3.1 H Glucose 129 H POC Glucose Calcium Phosphorus Ferritin Total Bilirubin AST ALT Alkaline Phosphatase Lactate Dehydrogenase 277 H Total Creatine Kinase Troponin T C-Reactive Protein 6.60 H NT-Pro-B Natriuret Pep Total Protein Albumin Cholesterol LDL Cholesterol Direct HDL Cholesterol PTH Intact Arterial Blood Glucose Urine WBC (Auto) Urine Creatinine Heparin-induced Plt Ab Lymph Enumerat CD4/CD8 Absolute CD3 Count Absolute CD4 Count % CD8 Cells Absolute CD8 Count Absolute CD19 Count Coronavirus (PCR) HIV-1 RNA PCR copies/ml HIV-1 RNA (PCR) log 09/22/20 09/22/20 09/22/20 05:38 05:44 11:26 WBC RBC Hgb Hct MCV MCH MCHC Plt Count Lymph % (Auto) [place] % (Auto) Lymph # (Auto) [place] # (Auto) Seg Neutrophils % Seg Neuts % (Manual) Lymphocytes % (Manual) Monocytes % (Manual) Nucleated RBC % Seg Neutrophils # Seg Neutrophils # Man Abs Lymphs (Manual) Lymphocytes # (Manual) PT INR APTT D-Dimer Heparin Anti-Xa Level ABG pH POC ABG pCO2 POC ABG pO2 ABG Oxyhemoglobin ABG Sodium ABG Potassium ABG Glucose Carboxyhemoglobin Sodium Chloride Carbon Dioxide BUN Creatinine Glucose POC Glucose 112 H 131 H Calcium Phosphorus Ferritin 927.8 H Total Bilirubin AST ALT Alkaline Phosphatase Lactate Dehydrogenase Total Creatine Kinase Troponin T C-Reactive Protein NT-Pro-B Natriuret Pep Total Protein Albumin Cholesterol LDL Cholesterol Direct HDL Cholesterol PTH Intact Arterial Blood Glucose Urine WBC (Auto) Urine Creatinine Heparin-induced Plt Ab Lymph Enumerat CD4/CD8 Absolute CD3 Count Absolute CD4 Count % CD8 Cells Absolute CD8 Count Absolute CD19 Count Coronavirus (PCR) HIV-1 RNA PCR copies/ml HIV-1 RNA (PCR) log 09/22/20 09/22/20 09/22/20 15:12 15:12 15:12 WBC RBC Hgb Hct MCV MCH MCHC Plt Count Lymph % (Auto) [place] % (Auto) Lymph # (Auto) [place] # (Auto) Seg Neutrophils % Seg Neuts % (Manual) Lymphocytes % (Manual) Monocytes % (Manual) Nucleated RBC % Seg Neutrophils # Seg Neutrophils # Man Abs Lymphs (Manual) Lymphocytes # (Manual) PT 17.3 H INR 1.42 H APTT D-Dimer Heparin Anti-Xa Level ABG pH POC ABG pCO2 POC ABG pO2 ABG Oxyhemoglobin ABG Sodium ABG Potassium ABG Glucose Carboxyhemoglobin Sodium Chloride Carbon Dioxide BUN Creatinine 3.0 H Glucose POC Glucose Calcium Phosphorus Ferritin Total Bilirubin AST ALT Alkaline Phosphatase Lactate Dehydrogenase Total Creatine Kinase Troponin T C-Reactive Protein NT-Pro-B Natriuret Pep Total Protein Albumin Cholesterol LDL Cholesterol Direct HDL Cholesterol PTH Intact Arterial Blood Glucose Urine WBC (Auto) Urine Creatinine Heparin-induced Plt Ab Weak positive H Lymph Enumerat CD4/CD8 Absolute CD3 Count Absolute CD4 Count % CD8 Cells Absolute CD8 Count Absolute CD19 Count Coronavirus (PCR) HIV-1 RNA PCR copies/ml HIV-1 RNA (PCR) log 09/22/20 09/22/20 09/23/20 16:53 23:55 04:36 WBC 14.2 H RBC 3.05 L Hgb 9.8 L Hct 28.4 L MCV MCH MCHC Plt Count 39 L Lymph % (Auto) [place] % (Auto) Lymph # (Auto) [place] # (Auto) Seg Neutrophils % Seg Neuts % (Manual) 91.0 H Lymphocytes % (Manual) 2.0 L Monocytes % (Manual) Nucleated RBC % Seg Neutrophils # Seg Neutrophils # Man 12.9 H Abs Lymphs (Manual) Lymphocytes # (Manual) 0.3 L PT INR APTT D-Dimer Heparin Anti-Xa Level ABG pH POC ABG pCO2 POC ABG pO2 ABG Oxyhemoglobin ABG Sodium ABG Potassium ABG Glucose Carboxyhemoglobin Sodium Chloride Carbon Dioxide BUN Creatinine Glucose POC Glucose 138 H 171 H Calcium Phosphorus Ferritin Total Bilirubin AST ALT Alkaline Phosphatase Lactate Dehydrogenase Total Creatine Kinase Troponin T C-Reactive Protein NT-Pro-B Natriuret Pep Total Protein Albumin Cholesterol LDL Cholesterol Direct HDL Cholesterol PTH Intact Arterial Blood Glucose Urine WBC (Auto) Urine Creatinine Heparin-induced Plt Ab Lymph Enumerat CD4/CD8 Absolute CD3 Count Absolute CD4 Count % CD8 Cells Absolute CD8 Count Absolute CD19 Count Coronavirus (PCR) HIV-1 RNA PCR copies/ml HIV-1 RNA (PCR) log 09/23/20 09/23/20 09/23/20 04:36 05:41 11:38 WBC RBC Hgb Hct MCV MCH MCHC Plt Count Lymph % (Auto) [place] % (Auto) Lymph # (Auto) [place] # (Auto) Seg Neutrophils % Seg Neuts % (Manual) Lymphocytes % (Manual) Monocytes % (Manual) Nucleated RBC % Seg Neutrophils # Seg Neutrophils # Man Abs Lymphs (Manual) Lymphocytes # (Manual) PT INR APTT D-Dimer Heparin Anti-Xa Level ABG pH POC ABG pCO2 POC ABG pO2 ABG Oxyhemoglobin ABG Sodium ABG Potassium ABG Glucose Carboxyhemoglobin Sodium Chloride Carbon Dioxide BUN 76 H Creatinine 3.1 H Glucose 157 H POC Glucose 136 H 141 H Calcium Phosphorus Ferritin Total Bilirubin AST ALT Alkaline Phosphatase Lactate Dehydrogenase Total Creatine Kinase Troponin T C-Reactive Protein NT-Pro-B Natriuret Pep Total Protein Albumin Cholesterol LDL Cholesterol Direct HDL Cholesterol PTH Intact Arterial Blood Glucose Urine WBC (Auto) Urine Creatinine Heparin-induced Plt Ab Lymph Enumerat CD4/CD8 Absolute CD3 Count Absolute CD4 Count % CD8 Cells Absolute CD8 Count Absolute CD19 Count Coronavirus (PCR) HIV-1 RNA PCR copies/ml HIV-1 RNA (PCR) log 09/23/20 09/23/20 09/24/20 17:09 23:51 05:00 WBC 24.2 H RBC 3.23 L Hgb 10.0 L Hct 29.7 L MCV MCH MCHC Plt Count 74 L Lymph % (Auto) [place] % (Auto) Lymph # (Auto) [place] # (Auto) Seg Neutrophils % Seg Neuts % (Manual) Lymphocytes % (Manual) Monocytes % (Manual) Nucleated RBC % Seg Neutrophils # Seg Neutrophils # Man Abs Lymphs (Manual) Lymphocytes # (Manual) PT INR APTT D-Dimer Heparin Anti-Xa Level ABG pH POC ABG pCO2 POC ABG pO2 ABG Oxyhemoglobin ABG Sodium ABG Potassium ABG Glucose Carboxyhemoglobin Sodium Chloride Carbon Dioxide BUN Creatinine Glucose POC Glucose 128 H 128 H Calcium Phosphorus Ferritin Total Bilirubin AST ALT Alkaline Phosphatase Lactate Dehydrogenase Total Creatine Kinase Troponin T C-Reactive Protein NT-Pro-B Natriuret Pep Total Protein Albumin Cholesterol LDL Cholesterol Direct HDL Cholesterol PTH Intact Arterial Blood Glucose Urine WBC (Auto) Urine Creatinine Heparin-induced Plt Ab Lymph Enumerat CD4/CD8 Absolute CD3 Count Absolute CD4 Count % CD8 Cells Absolute CD8 Count Absolute CD19 Count Coronavirus (PCR) HIV-1 RNA PCR copies/ml HIV-1 RNA (PCR) log 09/24/20 09/24/20 09/24/20 05:00 05:00 05:00 WBC RBC Hgb Hct MCV MCH MCHC Plt Count Lymph % (Auto) [place] % (Auto) Lymph # (Auto) [place] # (Auto) Seg Neutrophils % Seg Neuts % (Manual) Lymphocytes % (Manual) Monocytes % (Manual) Nucleated RBC % Seg Neutrophils # Seg Neutrophils # Man Abs Lymphs (Manual) Lymphocytes # (Manual) PT INR APTT D-Dimer 1772.86 H Heparin Anti-Xa Level ABG pH POC ABG pCO2 POC ABG pO2 ABG Oxyhemoglobin ABG Sodium ABG Potassium ABG Glucose Carboxyhemoglobin Sodium Chloride 107.1 H Carbon Dioxide BUN 90 H Creatinine 3.1 H Glucose 118 H POC Glucose Calcium Phosphorus Ferritin 1190.0 H Total Bilirubin AST ALT Alkaline Phosphatase Lactate Dehydrogenase 276 H Total Creatine Kinase Troponin T C-Reactive Protein 4.20 H NT-Pro-B Natriuret Pep Total Protein Albumin Cholesterol LDL Cholesterol Direct HDL Cholesterol PTH Intact Arterial Blood Glucose Urine WBC (Auto) Urine Creatinine Heparin-induced Plt Ab Lymph Enumerat CD4/CD8 Absolute CD3 Count Absolute CD4 Count % CD8 Cells Absolute CD8 Count Absolute CD19 Count Coronavirus (PCR) HIV-1 RNA PCR copies/ml HIV-1 RNA (PCR) log 09/24/20 09/24/20 09/24/20 05:12 11:25 12:09 WBC RBC Hgb Hct MCV MCH MCHC Plt Count Lymph % (Auto) [place] % (Auto) Lymph # (Auto) [place] # (Auto) Seg Neutrophils % Seg Neuts % (Manual) Lymphocytes % (Manual) Monocytes % (Manual) Nucleated RBC % Seg Neutrophils # Seg Neutrophils # Man Abs Lymphs (Manual) Lymphocytes # (Manual) PT INR APTT D-Dimer Heparin Anti-Xa Level ABG pH POC ABG pCO2 POC ABG pO2 ABG Oxyhemoglobin ABG Sodium ABG Potassium ABG Glucose Carboxyhemoglobin Sodium Chloride Carbon Dioxide BUN Creatinine 3.1 H Glucose POC Glucose 114 H 110 H Calcium Phosphorus Ferritin Total Bilirubin AST ALT Alkaline Phosphatase Lactate Dehydrogenase Total Creatine Kinase Troponin T C-Reactive Protein NT-Pro-B Natriuret Pep Total Protein Albumin Cholesterol LDL Cholesterol Direct HDL Cholesterol PTH Intact Arterial Blood Glucose Urine WBC (Auto) Urine Creatinine Heparin-induced Plt Ab Lymph Enumerat CD4/CD8 Absolute CD3 Count Absolute CD4 Count % CD8 Cells Absolute CD8 Count Absolute CD19 Count Coronavirus (PCR) HIV-1 RNA PCR copies/ml HIV-1 RNA (PCR) log 09/24/20 09/24/20 09/24/20 12:13 12:13 17:41 WBC 20.8 H RBC 3.04 L Hgb 9.5 L Hct 28.0 L MCV MCH MCHC Plt Count 78 L Lymph % (Auto) [place] % (Auto) Lymph # (Auto) [place] # (Auto) Seg Neutrophils % Seg Neuts % (Manual) Lymphocytes % (Manual) Monocytes % (Manual) Nucleated RBC % Seg Neutrophils # Seg Neutrophils # Man Abs Lymphs (Manual) Lymphocytes # (Manual) PT 15.7 H INR 1.27 H APTT D-Dimer Heparin Anti-Xa Level ABG pH POC ABG pCO2 POC ABG pO2 ABG Oxyhemoglobin ABG Sodium ABG Potassium ABG Glucose Carboxyhemoglobin Sodium Chloride Carbon Dioxide BUN Creatinine Glucose POC Glucose 133 H Calcium Phosphorus Ferritin Total Bilirubin AST ALT Alkaline Phosphatase Lactate Dehydrogenase Total Creatine Kinase Troponin T C-Reactive Protein NT-Pro-B Natriuret Pep Total Protein Albumin Cholesterol LDL Cholesterol Direct HDL Cholesterol PTH Intact Arterial Blood Glucose Urine WBC (Auto) Urine Creatinine Heparin-induced Plt Ab Lymph Enumerat CD4/CD8 Absolute CD3 Count Absolute CD4 Count % CD8 Cells Absolute CD8 Count Absolute CD19 Count Coronavirus (PCR) HIV-1 RNA PCR copies/ml HIV-1 RNA (PCR) log 09/24/20 09/25/20 09/25/20 23:34 06:40 06:40 WBC RBC Hgb Hct MCV MCH MCHC Plt Count Lymph % (Auto) [place] % (Auto) Lymph # (Auto) [place] # (Auto) Seg Neutrophils % Seg Neuts % (Manual) Lymphocytes % (Manual) Monocytes % (Manual) Nucleated RBC % Seg Neutrophils # Seg Neutrophils # Man Abs Lymphs (Manual) Lymphocytes # (Manual) PT INR APTT D-Dimer Heparin Anti-Xa Level ABG pH POC ABG pCO2 POC ABG pO2 ABG Oxyhemoglobin ABG Sodium ABG Potassium ABG Glucose Carboxyhemoglobin Sodium Chloride 109.0 H Carbon Dioxide BUN 98 H Creatinine 3.0 H 3.0 H Glucose 111 H POC Glucose 113 H Calcium Phosphorus Ferritin Total Bilirubin AST ALT Alkaline Phosphatase Lactate Dehydrogenase Total Creatine Kinase Troponin T C-Reactive Protein NT-Pro-B Natriuret Pep Total Protein Albumin Cholesterol LDL Cholesterol Direct HDL Cholesterol PTH Intact Arterial Blood Glucose Urine WBC (Auto) Urine Creatinine Heparin-induced Plt Ab Lymph Enumerat CD4/CD8 Absolute CD3 Count Absolute CD4 Count % CD8 Cells Absolute CD8 Count Absolute CD19 Count Coronavirus (PCR) HIV-1 RNA PCR copies/ml HIV-1 RNA (PCR) log 09/25/20 09/25/20 09/25/20 10:45 12:45 18:03 WBC 20.7 H RBC 3.33 L Hgb 10.2 L Hct 31.3 L MCV MCH MCHC Plt Count 139 L Lymph % (Auto) [place] % (Auto) Lymph # (Auto) [place] # (Auto) Seg Neutrophils % Seg Neuts % (Manual) Lymphocytes % (Manual) Monocytes % (Manual) Nucleated RBC % Seg Neutrophils # Seg Neutrophils # Man Abs Lymphs (Manual) Lymphocytes # (Manual) PT INR APTT D-Dimer Heparin Anti-Xa Level ABG pH POC ABG pCO2 POC ABG pO2 ABG Oxyhemoglobin ABG Sodium ABG Potassium ABG Glucose Carboxyhemoglobin Sodium Chloride Carbon Dioxide BUN Creatinine Glucose POC Glucose 108 H 114 H Calcium Phosphorus Ferritin Total Bilirubin AST ALT Alkaline Phosphatase Lactate Dehydrogenase Total Creatine Kinase Troponin T C-Reactive Protein NT-Pro-B Natriuret Pep Total Protein Albumin Cholesterol LDL Cholesterol Direct HDL Cholesterol PTH Intact Arterial Blood Glucose Urine WBC (Auto) Urine Creatinine Heparin-induced Plt Ab Lymph Enumerat CD4/CD8 Absolute CD3 Count Absolute CD4 Count % CD8 Cells Absolute CD8 Count Absolute CD19 Count Coronavirus (PCR) HIV-1 RNA PCR copies/ml HIV-1 RNA (PCR) log 09/25/20 09/26/20 09/26/20 23:29 05:00 07:06 WBC 17.0 H RBC 3.10 L Hgb 9.6 L Hct 28.8 L MCV MCH MCHC Plt Count Lymph % (Auto) [place] % (Auto) Lymph # (Auto) [place] # (Auto) Seg Neutrophils % Seg Neuts % (Manual) Lymphocytes % (Manual) Monocytes % (Manual) Nucleated RBC % Seg Neutrophils # Seg Neutrophils # Man Abs Lymphs (Manual) Lymphocytes # (Manual) PT INR APTT D-Dimer Heparin Anti-Xa Level ABG pH POC ABG pCO2 POC ABG pO2 ABG Oxyhemoglobin ABG Sodium ABG Potassium ABG Glucose Carboxyhemoglobin Sodium Chloride Carbon Dioxide BUN Creatinine Glucose POC Glucose 111 H 115 H Calcium Phosphorus Ferritin Total Bilirubin AST ALT Alkaline Phosphatase Lactate Dehydrogenase Total Creatine Kinase Troponin T C-Reactive Protein NT-Pro-B Natriuret Pep Total Protein Albumin Cholesterol LDL Cholesterol Direct HDL Cholesterol PTH Intact Arterial Blood Glucose Urine WBC (Auto) Urine Creatinine Heparin-induced Plt Ab Lymph Enumerat CD4/CD8 Absolute CD3 Count Absolute CD4 Count % CD8 Cells Absolute CD8 Count Absolute CD19 Count Coronavirus (PCR) HIV-1 RNA PCR copies/ml HIV-1 RNA (PCR) log 09/26/20 09/26/20 09/27/20 07:06 17:26 04:00 WBC RBC Hgb Hct MCV MCH MCHC Plt Count Lymph % (Auto) [place] % (Auto) Lymph # (Auto) [place] # (Auto) Seg Neutrophils % Seg Neuts % (Manual) Lymphocytes % (Manual) Monocytes % (Manual) Nucleated RBC % Seg Neutrophils # Seg Neutrophils # Man Abs Lymphs (Manual) Lymphocytes # (Manual) PT INR APTT D-Dimer Heparin Anti-Xa Level ABG pH POC ABG pCO2 POC ABG pO2 ABG Oxyhemoglobin ABG Sodium ABG Potassium ABG Glucose Carboxyhemoglobin Sodium Chloride Carbon Dioxide BUN 69 H 67 H Creatinine 2.2 H 2.3 H Glucose 107 H 121 H POC Glucose 124 H Calcium Phosphorus Ferritin Total Bilirubin AST ALT Alkaline Phosphatase Lactate Dehydrogenase Total Creatine Kinase Troponin T C-Reactive Protein NT-Pro-B Natriuret Pep Total Protein Albumin Cholesterol LDL Cholesterol Direct HDL Cholesterol PTH Intact Arterial Blood Glucose Urine WBC (Auto) Urine Creatinine Heparin-induced Plt Ab Lymph Enumerat CD4/CD8 Absolute CD3 Count Absolute CD4 Count % CD8 Cells Absolute CD8 Count Absolute CD19 Count Coronavirus (PCR) HIV-1 RNA PCR copies/ml HIV-1 RNA (PCR) log 09/27/20 09/27/20 04:00 05:00 WBC 14.6 H RBC 2.72 L Hgb 8.6 L Hct 25.8 L MCV 95 H MCH MCHC Plt Count Lymph % (Auto) 4.3 L [place] % (Auto) Lymph # (Auto) 0.6 L [place] # (Auto) 0.9 H Seg Neutrophils % 89.6 H Seg Neuts % (Manual) Lymphocytes % (Manual) Monocytes % (Manual) Nucleated RBC % Seg Neutrophils # 13.1 H Seg Neutrophils # Man Abs Lymphs (Manual) Lymphocytes # (Manual) PT INR APTT D-Dimer Heparin Anti-Xa Level ABG pH POC ABG pCO2 POC ABG pO2 ABG Oxyhemoglobin ABG Sodium ABG Potassium ABG Glucose Carboxyhemoglobin Sodium Chloride Carbon Dioxide BUN Creatinine 2.4 H Glucose POC Glucose Calcium Phosphorus Ferritin Total Bilirubin AST ALT Alkaline Phosphatase Lactate Dehydrogenase Total Creatine Kinase Troponin T C-Reactive Protein NT-Pro-B Natriuret Pep Total Protein Albumin Cholesterol LDL Cholesterol Direct HDL Cholesterol PTH Intact Arterial Blood Glucose Urine WBC (Auto) Urine Creatinine Heparin-induced Plt Ab Lymph Enumerat CD4/CD8 Absolute CD3 Count Absolute CD4 Count % CD8 Cells Absolute CD8 Count Absolute CD19 Count Coronavirus (PCR) HIV-1 RNA PCR copies/ml HIV-1 RNA (PCR) log Chest x-ray: report reviewed, image reviewed Prior PFT's, U/S of legs: report reviewed, image reviewed Additional Studies: CHEST 1 VIEW 09/20/20 INDICATION: Vascath placement COMPARISON: 09/17/2020 FINDINGS: Support devices: Perm catheter in the superior vena cava, tip at the atriocaval junction level. Nasogastric tube tip at the gastroesophageal junction. Heart: Normal and unchanged Lungs/Pleura: No acute pulmonary or pleural findings. No pneumothorax. IMPRESSION: 1. Right subclavian line in the superior vena cava. No pneumothorax. Bilateral duplex Doppler ultrasound lower extremities 09/21/20 INDICATION: Evaluate for DVT FINDINGS: Bilateral common femoral veins, superficial femoral veins and po pliteal veins have normal compressibility and phasic flow. IMPRESSION: No evidence for DVT. Allied health notes reviewed: nursing
--- NOTE | 2020-09-27 16:38 | Cat Scan Report ---
CT ABDOMEN AND PELVIS WITHOUT CONTRAST INDICATION: Worsening Leukocytosis. TECHNIQUE: Axial CT images were obtained through the abdomen and pelvis without IV contrast. All CT scans at [facility] location are performed using CT dose reduction for ALARA by means of automated exposure control. COMPARISON: Renal ultrasound 09/18/2020 FINDINGS: LOWER CHEST: Incompletely visualized 8mm right middle lobe pulmonary nodule. Moderate COPD and increa sed interstitial markings both lung bases LIVER: No significant abnormality. GALLBLADDER: Cholelithiasis and gallbladder sludge. BILE DUCTS: No significant abnormality. PANCREAS: No significant abnormality. SPLEEN: No significant abnormality. ADRENALS: No significant abnormality. RIGHT KIDNEY and URETER: Complex 2.5 cm exophytic lesion upper pole right kidney image 59. Several hy podense right renal lesions characteristic for cysts. LEFT KIDNEY and URETER: Small hemorrhagic 1 cm left upper pole renal cyst STOMACH and SMALL BOWEL: No significant abnormality. COLON: Mild sigmoid diverticulosis without diverticulitis. APPENDIX: No significant abnormality. PERITONEUM: No free fluid. No free air. No fluid collection. LYMPH NODES: No significant adenopathy. AORTA and ARTERIES: No significant abnormality. IVC and VEINS: No significant abnormality. URINARY BLADDER: No significant abnormality. REPRODUCTIVE ORGANS: Enlarged prostate with 2 cm intravesicular protrusion ADDITIONAL FINDINGS: None. 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 Cholelithiasis. 2. Mild sigmoid diverticulosis without diverticulitis 3 indeterminate 2.5 cm exophytic right upper pole renal lesion. Recommend repeat renal ultrasound or multiphase CT for further characterization in order to exclude solid mass. This lesion was not imaged on recent renal ultrasound Single incidental pulmonary nodule(s) in the right middle lobe measuring 8 mm with solid characterist ics. Recommendation according to Fleischner Society 2017 Guidelines: Low Risk Patient: CT at 6-12 mon ths, then consider CT at 18-24 months; High Risk Patient: CT at 6-12 months, then CT at 18-24 months Signer Name: Kota Pedroza MD Signed: 09/27/2020 4:34 PM Workstation Name: [id number]
[2020-09-27] MEDS: TENOFOVIR 300 MG TAB PO SCH (21:39)
[2020-09-28] MEDS: ACETAMINOPHEN 325 MG TAB PO PRN (03:21)
[2020-09-28 05:21] LABS: Hematocrit 25.3 % (35.5-45.6); Hemoglobin 8.4 gm/dl (11.8-15.2); Mean Corpuscular HGB Conc 33 % (32-34); Mean Corpuscular Volume 95 fl (84-94); Platelet Count 220 K/mm3 (140-440); Red Blood Count 2.66 M/mm3 (3.65-5.03); Red Cell Distribution Width 13.9 % (13.2-15.2)
[2020-09-28 05:40] LABS: Calcium 9.2 mg/dL (8.4-10.2)
[2020-09-28] MEDS: FAMOTIDINE 20 MG TAB PO SCH (10:00)
[2020-09-28] MEDS: METOPROLOL TARTRATE 25 MG TAB PO SCH ×2 (10:00→21:28)
[2020-09-28] MEDS: ZINC SULFATE 220 MG CAP PO SCH (10:00)
[2020-09-28] MEDS: APIXABAN 2.5 MG TAB PO SCH ×2 (10:00→21:28)
[2020-09-28] MEDS: MIDODRINE 5 MG TAB PO SCH ×3 (10:00→16:41)
[2020-09-28] MEDS: cefTRIAXone/NS 2 GM/100 ML 2 GM/100 ML BAG IV SCH (10:00)
[2020-09-28] MEDS: DEXAMETHASONE 4 MG TAB PO SCH (10:00)
[2020-09-28] MEDS: AMIODARONE 200 MG TAB PO SCH ×2 (10:00→21:26)
[2020-09-28] MEDS: DOLUTEGRAVIR 50 MG TAB PO SCH (10:00)
[2020-09-28] MEDS: CHOLECALCIFEROL (VIT D3) 1000 UNIT (25 mcg) TAB PO SCH (10:00)
[2020-09-28] MEDS: ASCORBIC ACID 500 MG TAB PO SCH ×2 (10:00→21:28)
--- NOTE | 2020-09-28 10:58 | Progress Note ---
Assessment and Plan 70 YO Male with HIV, HTN, Atrial Fib currently of therapeutic anticoagulation with Xarelto presents to ED for evaluation. Patient reports "I just can't breathe". Patient states that he has experienced shortness of breath over the past 3 days with persistently worsening symptoms over the same timeframe. EMS notified and upon arrival the patient was found to be in distress with a pulse oximetry of 85% on room air. The patient was placed on supplemental oxygen and subsequently transported to [facility] for further care and evaluation of the aforementioned symptoms. The patient was admitted to this hospital 2 days ago, 09/15, for similar complaints and was found to have A. fib with RVR, hyponatremia, hypomagnesemia and acute kidney injury. Shortly after the patient was admitted he left AMA. The patient was seen and evaluated in the emergency department. All lab and imaging studies reviewed. The patient was also found to have a pulse oximetry of 86% on room air which is consistent with acute hypoxemic respiratory failure. The patient was found to have atrial fibrillation with rapid ventricular response, metabolic acidosis, acute kidney injury, as well as symptoms consistent with acute CHF decompensation. The patient was found to be hypotensive with a blood pressure of 78/43 which resulted in a MAP less than 65. Patient admitted to [facility] due to increased risk of cardiopulmonary decompensation. Patient treated with antiarrhythmic therapy in the emergency department, and initiated on CHF protocol. Cardiology , Nepro logy and pulmonary and critical care consulted. Patient awake. On 3L O2. O2 saturation running 99%. BiPap 20/8, rate of 10, FiO2 40% STANDBY in room. Patient appears depressed. No acute respiratory distress at rest. Patient afebrile, with leukocytosis. Patient's coronavirus test was positive. Patient's inflammatory markers: D-dimer: 1772.86, Ferritin: 1,190, Lactic: 1.00, C-reactive protein: 4.20, NT Pro-BNP: 18,204, Troponin < 0.01, CPK: 20, LDH: 276 Medications include apixaban, albuterol, famotidine, dexamethasone, ceftriaxone, tenofovir. Chest x-ray done on 09/20/20 showed no acute pulmonary or pleural findings. No pneumothorax. Patient is seen in IMCU. I spent critical care time of 33 minutes, reviewing the chart, examining the patient, review chest xray, labs, talking to the respiratory therapy and nursing staff and work out plan of treatment in this cricall ill COVID 19 Positive patient. - Patient Problems (1) Acute hypoxemic respiratory failure Current Visit: Yes Status: Acute Plan to address problem: Patient on 3L O2. O2 saturation running 98%. BiPap 20/8, rate of 10, FiO2 40% STANDBY in room. No acute respiratory distress at rest. Medications include albuterol, dexamethasone. (2) CHF (congestive heart failure) Current Visit: Yes Status: Acute Qualifiers: Heart failure type: systolic Heart failure chronicity: acute Qualified Code(s): I50.21 - Acute systolic (congestive) heart failure Plan to address problem: Management as per cardiology (3) LOLI (acute kidney injury) Current Visit: Yes Status: Acute Plan to address problem: Management as per nephrology. (4) AMS (altered mental status) Current Visit: Yes Status: Acute Qualifiers: Altered mental status type: somnolence Qualified Code(s): R40.0 - Somnolence Plan to address problem: Management as per primary team. (5) Atrial fibrillation with RVR Current Visit: Yes Status: Acute Plan to address problem: Management as cardiology. Patient is on Apixaban (6) Coronavirus infection Current Visit: Yes Status: Acute Plan to address problem: Patients [place] virus PCR is positive. Management as per ID. (7) HIV (human immunodeficiency virus infection) Current Visit: Yes Status: Chronic Plan to address problem: Management as per ID. Patient on Tenofovir. Subjective Date of service: 09/28/20 Principal diagnosis: Acute Resp Fail, Sepsis, AF with RVR Interval history: 70 YO Male with HIV, HTN, Atrial Fib currently of therapeutic anticoagulation with Xarelto presents to ED for evaluation. Patient reports "I just can't breathe". Patient states that he has experienced shortness of breath over the past 3 days with persistently worsening symptoms over the same timeframe. EMS notified and upon arrival the patient was found to be in distress with a pulse oximetry of 85% on room air. The patient was placed on supplemental oxygen and subsequently transported to [facility] for further care and evaluation of the aforementioned symptoms. The patient was admitted to this hospital 2 days ago, 09/15, for similar complaints and was found to have A. fib with RVR, hyponatremia, hypomagnesemia and acute kidney injury. Shortly after the patient was admitted he left AMA. The patient was seen and evaluated in the emergency department. All lab and imaging studies reviewed. The patient was also found to have a pulse oximetry of 86% on room air which is consistent with acute hypoxemic respiratory failure. The patient was found to have atrial fibrillation with rapid ventricular response, metabolic acidosis, acute kidney injury, as well as symptoms consistent with acute CHF decompensation. The patient was found to be hypotensive with a blood pressure of 78/43 which resulted in a MAP less than 65. Patient admitted to [facility] due to increased risk of cardiopulmonary decompensation. Patient treated with antiarrhythmic therapy in the emergency department, and initiated on CHF protocol. Cardiology and Nephrology and pulmonary and critical care consulted. Patient awake. On 3L O2. O2 saturation running 99%. BiPap 20/8, rate of 10, FiO2 40% STANDBY in room. Patient appears depressed. No acute respiratory distress at rest. Patient afebrile, with leukocytosis. Patient's coronavirus test was positive. Patient's inflammatory markers: D-dimer: 1772.86, Ferritin: 1,190, Lactic: 1.00, C-reactive protein: 4.20, NT Pro-BNP: 18,204, Troponin < 0.01, CPK: 20, LDH: 276 Medications include apixaban, albuterol, famotidine, dexamethasone, ceftriaxone, tenofovir, Chest x-ray done on 09/20/20 showed no acute pulmonary or pleural findings. No pneumothorax. Objective Vital Signs - 12hr 09/27/20 09/27/20 09/27/20 23:00 23:05 23:19 Temperature Pulse Rate 89 89 Pulse Rate [ From Monitor] Respiratory 16 15 12 Rate Blood Pressure 94/60 94/60 O2 Sat by Pulse 100 100 Oximetry 09/27/20 09/27/20 09/28/20 23:31 23:43 00:00 Temperature 98.7 F Pulse Rate 107 H 86 Pulse Rate [ 107 H From Monitor] Respiratory 14 13 Rate Blood Pressure 94/60 86/57 O2 Sat by Pulse 100 100 Oximetry 09/28/20 09/28/20 09/28/20 00:31 00:41 01:00 Temperature Pulse Rate 100 H 96 H 95 H Pulse Rate [ From Monitor] Respiratory 11 L 12 11 L Rate Blood Pressure 86/57 91/55 O2 Sat by Pulse 100 99 100 Oximetry 09/28/20 09/28/20 09/28/20 01:31 02:00 02:31 Temperature Pulse Rate 93 H 101 H 100 H Pulse Rate [ From Monitor] Respiratory 11 L 10 L 11 L Rate Blood Pressure 91/55 106/72 106/72 O2 Sat by Pulse 100 100 100 Oximetry 09/28/20 09/28/20 09/28/20 03:00 03:21 03:31 Temperature Pulse Rate 97 H 105 H Pulse Rate [ From Monitor] Respiratory 13 12 14 Rate Blood Pressure 92/70 92/70 O2 Sat by Pulse 100 100 Oximetry 09/28/20 09/28/20 09/28/20 04:00 04:31 05:00 Temperature 98.8 F Pulse Rate 111 H 111 H 96 H Pulse Rate [ 102 H From Monitor] Respiratory 11 L 12 12 Rate Blood Pressure 114/86 114/86 99/57 O2 Sat by Pulse 99 100 100 Oximetry 09/28/20 09/28/20 09/28/20 05:31 06:00 06:31 Temperature Pulse Rate 79 87 81 Pulse Rate [ From Monitor] Respiratory 11 L 11 L 10 L Rate Blood Pressure 99/57 89/50 89/50 O2 Sat by Pulse 100 100 100 Oximetry 09/28/20 09/28/20 09/28/20 07:00 07:30 07:31 Temperature Pulse Rate 96 H 108 H Pulse Rate [ From Monitor] Respiratory 11 L 12 Rate Blood Pressure 116/80 116/80 O2 Sat by Pulse 100 100 100 Oximetry 09/28/20 09/28/20 09/28/20 08:00 08:31 09:00 Temperature Pulse Rate Pulse Rate [ From Monitor] Respiratory Rate Blood Pressure 109/73 109/73 93/65 O2 Sat by Pulse 99 98 99 Oximetry 09/28/20 09/28/20 09/28/20 09:31 10:00 10:31 Temperature Pulse Rate 120 H 107 H Pulse Rate [ From Monitor] Respiratory 14 11 L Rate Blood Pressure 93/65 94/73 94/73 O2 Sat by Pulse 98 99 100 Oximetry Constitutional: no acute distress, alert, appears uncomfortable, other (elderly male with mildly increased respiratory effort at rest) Eyes: non-icteric ENT: oropharynx moist Neck: supple, no lymphadenopathy, no JVD Effort: mildly labored Ascultation: Bilateral: rhonchi, other (right SCVL Trialysis catheter) Percussion: Bilateral: not dull Cardiovascular: irregular rhythm Gastrointestinal: normoactive bowel sounds, soft, non-tender, non-distended Integumentary: normal Extremities: no cyanosis, no edema, pulses normal, no ischemia or petechiae Neurologic: non-focal exam (grossly), pupils equal and round, CN II-XII normal, other (delirious) Psychiatric: depressed, other (delirious) CBC and BMP: 09/28/20 04:46 09/28/20 04:46 ABG, PT/INR, D-dimer: ABG ABG pH 7.508 (7.320-7.450) H 09/17/20 10:28 POC ABG pCO2 22.8 mmHg (32.0-48.0) L 09/17/20 10:28 POC ABG pO2 66.8 mmHg (83-108) L 09/17/20 10:28 POC ABG HCO3 17.7 09/17/20 10:28 ABG O2 Saturation 93.4 (0-100) 09/17/20 10:28 PT/INR, D-dimer PT 15.7 Sec. (12.2-14.9) H 09/24/20 12:13 INR 1.27 (0.87-1.13) H 09/24/20 12:13 D-Dimer 1772.86 ng/mlDDU (0-234) H 09/24/20 05:00 Abnormal lab findings: Abnormal Labs 09/17/20 09/17/20 09/17/20 10:28 10:47 10:47 WBC 11.1 H RBC 3.44 L Hgb 11.2 L Hct 32.8 L MCV 95 H MCH MCHC Plt Count Lymph % (Auto) [place] % (Auto) Lymph # (Auto) [place] # (Auto) Seg Neutrophils % Seg Neuts % (Manual) Lymphocytes % (Manual) 4.0 L Monocytes % (Manual) Nucleated RBC % Seg Neutrophils # Seg Neutrophils # Man 10.7 H Abs Lymphs (Manual) Lymphocytes # (Manual) 0.4 L PT 32.9 H INR 3.16 H APTT 51.1 H D-Dimer Heparin Anti-Xa Level ABG pH 7.508 H POC ABG pCO2 22.8 L POC ABG pO2 66.8 L ABG Oxyhemoglobin 92.7 L ABG Sodium 127.4 L ABG Potassium 4.7 H ABG Glucose 121 H Carboxyhemoglobin 0.4 L Sodium Chloride Carbon Dioxide BUN Creatinine Glucose POC Glucose Calcium Phosphorus Ferritin Total Bilirubin AST ALT Alkaline Phosphatase Lactate Dehydrogenase Total Creatine Kinase Troponin T C-Reactive Protein NT-Pro-B Natriuret Pep Total Protein Albumin Cholesterol LDL Cholesterol Direct HDL Cholesterol PTH Intact Arterial Blood Glucose 121 H Urine WBC (Auto) Urine Creatinine Heparin-induced Plt Ab Lymph Enumerat CD4/CD8 Absolute CD3 Count Absolute CD4 Count % CD8 Cells Absolute CD8 Count Absolute CD19 Count Coronavirus (PCR) HIV-1 RNA PCR copies/ml HIV-1 RNA (PCR) log 09/17/20 09/17/20 09/17/20 10:47 10:47 13:54 WBC RBC Hgb Hct MCV MCH MCHC Plt Count Lymph % (Auto) [place] % (Auto) Lymph # (Auto) [place] # (Auto) Seg Neutrophils % Seg Neuts % (Manual) Lymphocytes % (Manual) Monocytes % (Manual) Nucleated RBC % Seg Neutrophils # Seg Neutrophils # Man Abs Lymphs (Manual) Lymphocytes # (Manual) PT INR APTT D-Dimer Heparin Anti-Xa Level ABG pH POC ABG pCO2 POC ABG pO2 ABG Oxyhemoglobin ABG Sodium ABG Potassium ABG Glucose Carboxyhemoglobin Sodium 125 L Chloride 95.3 L Carbon Dioxide 17 L BUN 64 H Creatinine 4.6 H D Glucose 104 H POC Glucose Calcium Phosphorus Ferritin Total Bilirubin AST 69 H ALT Alkaline Phosphatase Lactate Dehydrogenase Total Creatine Kinase Troponin T 0.061 H D 0.058 H C-Reactive Protein NT-Pro-B Natriuret Pep 85174 H Total Protein Albumin 1.9 L Cholesterol 48 L LDL Cholesterol Direct 4 L HDL Cholesterol 9 L PTH Intact Arterial Blood Glucose Urine WBC (Auto) Urine Creatinine Heparin-induced Plt Ab Lymph Enumerat CD4/CD8 Absolute CD3 Count Absolute CD4 Count % CD8 Cells Absolute CD8 Count Absolute CD19 Count Coronavirus (PCR) HIV-1 RNA PCR copies/ml HIV-1 RNA (PCR) log 09/17/20 09/17/20 09/17/20 16:36 17:35 17:35 WBC RBC 3.25 L Hgb 10.7 L Hct 31.1 L MCV 96 H MCH 33 H MCHC Plt Count Lymph % (Auto) [place] % (Auto) Lymph # (Auto) [place] # (Auto) Seg Neutrophils % Seg Neuts % (Manual) Lymphocytes % (Manual) Monocytes % (Manual) Nucleated RBC % Seg Neutrophils # Seg Neutrophils # Man Abs Lymphs (Manual) Lymphocytes # (Manual) PT 31.9 H INR 3.04 H APTT 50.9 H D-Dimer Heparin Anti-Xa Level ABG pH POC ABG pCO2 POC ABG pO2 ABG Oxyhemoglobin ABG Sodium ABG Potassium ABG Glucose Carboxyhemoglobin Sodium Chloride Carbon Dioxide BUN Creatinine Glucose POC Glucose Calcium Phosphorus Ferritin Total Bilirubin AST ALT Alkaline Phosphatase Lactate Dehydrogenase Total Creatine Kinase Troponin T 0.057 H C-Reactive Protein NT-Pro-B Natriuret Pep Total Protein Albumin Cholesterol LDL Cholesterol Direct HDL Cholesterol PTH Intact Arterial Blood Glucose Urine WBC (Auto) Urine Creatinine Heparin-induced Plt Ab Lymph Enumerat CD4/CD8 Absolute CD3 Count Absolute CD4 Count % CD8 Cells Absolute CD8 Count Absolute CD19 Count Coronavirus (PCR) HIV-1 RNA PCR copies/ml HIV-1 RNA (PCR) log 09/17/20 09/18/20 09/18/20 17:35 03:19 03:19 WBC RBC 3.32 L Hgb 10.9 L Hct 32.0 L MCV 96 H MCH 33 H MCHC Plt Count 138 L Lymph % (Auto) [place] % (Auto) Lymph # (Auto) [place] # (Auto) Seg Neutrophils % Seg Neuts % (Manual) 95.0 H Lymphocytes % (Manual) 3.0 L Monocytes % (Manual) Nucleated RBC % Seg Neutrophils # Seg Neutrophils # Man 8.1 H Abs Lymphs (Manual) Lymphocytes # (Manual) 0.3 L PT INR APTT D-Dimer Heparin Anti-Xa Level ABG pH POC ABG pCO2 POC ABG pO2 ABG Oxyhemoglobin ABG Sodium ABG Potassium ABG Glucose Carboxyhemoglobin Sodium Chloride Carbon Dioxide 16 L BUN 70 H Creatinine 4.6 H 4.7 H Glucose 104 H POC Glucose Calcium 8.2 L Phosphorus Ferritin Total Bilirubin 1.60 H AST 128 H ALT 67 H Alkaline Phosphatase Lactate Dehydrogenase Total Creatine Kinase Troponin T C-Reactive Protein NT-Pro-B Natriuret Pep Total Protein 5.2 L D Albumin 2.5 L Cholesterol LDL Cholesterol Direct HDL Cholesterol PTH Intact Arterial Blood Glucose Urine WBC (Auto) Urine Creatinine Heparin-induced Plt Ab Lymph Enumerat CD4/CD8 Absolute CD3 Count Absolute CD4 Count % CD8 Cells Absolute CD8 Count Absolute CD19 Count Coronavirus (PCR) HIV-1 RNA PCR copies/ml HIV-1 RNA (PCR) log 09/18/20 09/18/20 09/18/20 09:39 12:00 12:00 WBC RBC Hgb Hct MCV MCH MCHC Plt Count Lymph % (Auto) [place] % (Auto) Lymph # (Auto) [place] # (Auto) Seg Neutrophils % Seg Neuts % (Manual) Lymphocytes % (Manual) Monocytes % (Manual) Nucleated RBC % Seg Neutrophils # Seg Neutrophils # Man Abs Lymphs (Manual) Lymphocytes # (Manual) PT INR APTT D-Dimer Heparin Anti-Xa Level ABG pH POC ABG pCO2 POC ABG pO2 ABG Oxyhemoglobin ABG Sodium ABG Potassium ABG Glucose Carboxyhemoglobin Sodium Chloride Carbon Dioxide BUN Creatinine Glucose POC Glucose Calcium Phosphorus Ferritin Total Bilirubin AST ALT Alkaline Phosphatase Lactate Dehydrogenase Total Creatine Kinase Troponin T C-Reactive Protein NT-Pro-B Natriuret Pep Total Protein Albumin Cholesterol LDL Cholesterol Direct HDL Cholesterol PTH Intact Arterial Blood Glucose Urine WBC (Auto) 71.0 H Urine Creatinine 61.0 H Heparin-induced Plt Ab Lymph Enumerat CD4/CD8 Absolute CD3 Count Absolute CD4 Count % CD8 Cells Absolute CD8 Count Absolute CD19 Count Coronavirus (PCR) Positive A HIV-1 RNA PCR copies/ml HIV-1 RNA (PCR) log 09/18/20 09/18/20 09/18/20 15:07 15:07 18:33 WBC RBC Hgb 10.7 L Hct 31.3 L MCV MCH MCHC Plt Count Lymph % (Auto) [place] % (Auto) Lymph # (Auto) [place] # (Auto) Seg Neutrophils % Seg Neuts % (Manual) Lymphocytes % (Manual) Monocytes % (Manual) Nucleated RBC % Seg Neutrophils # Seg Neutrophils # Man Abs Lymphs (Manual) Lymphocytes # (Manual) PT 20.3 H INR 1.73 H APTT 40.8 H D-Dimer Heparin Anti-Xa Level 1.09 H ABG pH POC ABG pCO2 POC ABG pO2 ABG Oxyhemoglobin ABG Sodium ABG Potassium ABG Glucose Carboxyhemoglobin Sodium Chloride Carbon Dioxide BUN Creatinine Glucose POC Glucose Calcium Phosphorus Ferritin Total Bilirubin AST ALT Alkaline Phosphatase Lactate Dehydrogenase Total Creatine Kinase Troponin T C-Reactive Protein NT-Pro-B Natriuret Pep Total Protein Albumin Cholesterol LDL Cholesterol Direct HDL Cholesterol PTH Intact Arterial Blood Glucose Urine WBC (Auto) Urine Creatinine Heparin-induced Plt Ab Lymph Enumerat CD4/CD8 Absolute CD3 Count Absolute CD4 Count % CD8 Cells Absolute CD8 Count Absolute CD19 Count Coronavirus (PCR) HIV-1 RNA PCR copies/ml HIV-1 RNA (PCR) log 09/19/20 09/19/20 09/19/20 03:30 03:30 03:30 WBC RBC 3.29 L Hgb 10.9 L Hct 30.9 L MCV MCH 33 H MCHC 35 H Plt Count Lymph % (Auto) [place] % (Auto) Lymph # (Auto) [place] # (Auto) Seg Neutrophils % Seg Neuts % (Manual) Lymphocytes % (Manual) Monocytes % (Manual) Nucleated RBC % Seg Neutrophils # Seg Neutrophils # Man Abs Lymphs (Manual) Lymphocytes # (Manual) PT INR APTT D-Dimer Heparin Anti-Xa Level ABG pH POC ABG pCO2 POC ABG pO2 ABG Oxyhemoglobin ABG Sodium ABG Potassium ABG Glucose Carboxyhemoglobin Sodium 133 L Chloride Carbon Dioxide 17 L BUN 94 H Creatinine 5.0 H Glucose 120 H POC Glucose Calcium Phosphorus 6.30 H Ferritin Total Bilirubin 2.40 H AST 163 H ALT 109 H Alkaline Phosphatase 160 H Lactate Dehydrogenase Total Creatine Kinase 20 L Troponin T C-Reactive Protein NT-Pro-B Natriuret Pep Total Protein 6.2 L Albumin 2.0 L Cholesterol LDL Cholesterol Direct HDL Cholesterol PTH Intact 161.4 H Arterial Blood Glucose Urine WBC (Auto) Urine Creatinine Heparin-induced Plt Ab Lymph Enumerat CD4/CD8 Absolute CD3 Count Absolute CD4 Count % CD8 Cells Absolute CD8 Count Absolute CD19 Count Coronavirus (PCR) HIV-1 RNA PCR copies/ml HIV-1 RNA (PCR) log 09/19/20 09/19/20 09/19/20 06:35 13:35 13:35 WBC RBC Hgb Hct MCV MCH MCHC Plt Count Lymph % (Auto) [place] % (Auto) Lymph # (Auto) [place] # (Auto) Seg Neutrophils % Seg Neuts % (Manual) Lymphocytes % (Manual) Monocytes % (Manual) Nucleated RBC % Seg Neutrophils # Seg Neutrophils # Man Abs Lymphs (Manual) 223 L Lymphocytes # (Manual) PT INR APTT D-Dimer Heparin Anti-Xa Level ABG pH POC ABG pCO2 POC ABG pO2 ABG Oxyhemoglobin ABG Sodium ABG Potassium ABG Glucose Carboxyhemoglobin Sodium Chloride Carbon Dioxide BUN Creatinine Glucose POC Glucose 123 H Calcium Phosphorus Ferritin Total Bilirubin AST ALT Alkaline Phosphatase Lactate Dehydrogenase Total Creatine Kinase Troponin T C-Reactive Protein NT-Pro-B Natriuret Pep Total Protein Albumin Cholesterol LDL Cholesterol Direct HDL Cholesterol PTH Intact Arterial Blood Glucose Urine WBC (Auto) Urine Creatinine Heparin-induced Plt Ab Lymph Enumerat CD4/CD8 0.70 L Absolute CD3 Count 175 L Absolute CD4 Count 70 L % CD8 Cells 45 H Absolute CD8 Count 101 L Absolute CD19 Count 26 L Coronavirus (PCR) HIV-1 RNA PCR copies/ml 67 H HIV-1 RNA (PCR) log 1.83 H 09/19/20 09/20/20 09/20/20 23:37 04:00 04:00 WBC RBC 3.43 L Hgb 11.1 L Hct 32.2 L MCV MCH MCHC Plt Count 131 L Lymph % (Auto) [place] % (Auto) Lymph # (Auto) [place] # (Auto) Seg Neutrophils % Seg Neuts % (Manual) 88.0 H Lymphocytes % (Manual) 3.0 L Monocytes % (Manual) 9.0 H Nucleated RBC % Seg Neutrophils # Seg Neutrophils # Man 8.2 H Abs Lymphs (Manual) Lymphocytes # (Manual) 0.3 L PT INR APTT D-Dimer Heparin Anti-Xa Level 0.10 L ABG pH POC ABG pCO2 POC ABG pO2 ABG Oxyhemoglobin ABG Sodium ABG Potassium ABG Glucose Carboxyhemoglobin Sodium Chloride Carbon Dioxide BUN Creatinine Glucose POC Glucose 135 H Calcium Phosphorus Ferritin Total Bilirubin AST ALT Alkaline Phosphatase Lactate Dehydrogenase Total Creatine Kinase Troponin T C-Reactive Protein NT-Pro-B Natriuret Pep Total Protein Albumin Cholesterol LDL Cholesterol Direct HDL Cholesterol PTH Intact Arterial Blood Glucose Urine WBC (Auto) Urine Creatinine Heparin-induced Plt Ab Lymph Enumerat CD4/CD8 Absolute CD3 Count Absolute CD4 Count % CD8 Cells Absolute CD8 Count Absolute CD19 Count Coronavirus (PCR) HIV-1 RNA PCR copies/ml HIV-1 RNA (PCR) log 09/20/20 09/20/20 09/20/20 04:00 05:37 11:20 WBC RBC Hgb Hct MCV MCH MCHC Plt Count Lymph % (Auto) [place] % (Auto) Lymph # (Auto) [place] # (Auto) Seg Neutrophils % Seg Neuts % (Manual) Lymphocytes % (Manual) Monocytes % (Manual) Nucleated RBC % Seg Neutrophils # Seg Neutrophils # Man Abs Lymphs (Manual) Lymphocytes # (Manual) PT INR APTT D-Dimer Heparin Anti-Xa Level ABG pH POC ABG pCO2 POC ABG pO2 ABG Oxyhemoglobin ABG Sodium ABG Potassium ABG Glucose Carboxyhemoglobin Sodium Chloride Carbon Dioxide 16 L BUN 119 H Creatinine 6.2 H Glucose 136 H POC Glucose 137 H 108 H Calcium Phosphorus Ferritin Total Bilirubin AST ALT Alkaline Phosphatase Lactate Dehydrogenase Total Creatine Kinase Troponin T C-Reactive Protein NT-Pro-B Natriuret Pep Total Protein Albumin Cholesterol LDL Cholesterol Direct HDL Cholesterol PTH Intact Arterial Blood Glucose Urine WBC (Auto) Urine Creatinine Heparin-induced Plt Ab Lymph Enumerat CD4/CD8 Absolute CD3 Count Absolute CD4 Count % CD8 Cells Absolute CD8 Count Absolute CD19 Count Coronavirus (PCR) HIV-1 RNA PCR copies/ml HIV-1 RNA (PCR) log 09/20/20 09/20/20 09/20/20 17:10 17:10 17:10 WBC RBC Hgb Hct MCV MCH MCHC Plt Count Lymph % (Auto) [place] % (Auto) Lymph # (Auto) [place] # (Auto) Seg Neutrophils % Seg Neuts % (Manual) Lymphocytes % (Manual) Monocytes % (Manual) Nucleated RBC % Seg Neutrophils # Seg Neutrophils # Man Abs Lymphs (Manual) Lymphocytes # (Manual) PT INR APTT D-Dimer 4271.58 H Heparin Anti-Xa Level ABG pH POC ABG pCO2 POC ABG pO2 ABG Oxyhemoglobin ABG Sodium ABG Potassium ABG Glucose Carboxyhemoglobin Sodium Chloride Carbon Dioxide BUN Creatinine 6.0 H Glucose POC Glucose Calcium Phosphorus Ferritin 696.6 H Total Bilirubin AST ALT Alkaline Phosphatase Lactate Dehydrogenase Total Creatine Kinase Troponin T C-Reactive Protein NT-Pro-B Natriuret Pep Total Protein Albumin Cholesterol LDL Cholesterol Direct HDL Cholesterol PTH Intact Arterial Blood Glucose Urine WBC (Auto) Urine Creatinine Heparin-induced Plt Ab Lymph Enumerat CD4/CD8 Absolute CD3 Count Absolute CD4 Count % CD8 Cells Absolute CD8 Count Absolute CD19 Count Coronavirus (PCR) HIV-1 RNA PCR copies/ml HIV-1 RNA (PCR) log 09/20/20 09/20/20 09/20/20 17:10 18:21 23:14 WBC RBC Hgb Hct MCV MCH MCHC Plt Count Lymph % (Auto) [place] % (Auto) Lymph # (Auto) [place] # (Auto) Seg Neutrophils % Seg Neuts % (Manual) Lymphocytes % (Manual) Monocytes % (Manual) Nucleated RBC % Seg Neutrophils # Seg Neutrophils # Man Abs Lymphs (Manual) Lymphocytes # (Manual) PT INR APTT D-Dimer Heparin Anti-Xa Level ABG pH POC ABG pCO2 POC ABG pO2 ABG Oxyhemoglobin ABG Sodium ABG Potassium ABG Glucose Carboxyhemoglobin Sodium Chloride Carbon Dioxide BUN Creatinine Glucose POC Glucose 129 H 170 H Calcium Phosphorus Ferritin Total Bilirubin AST ALT Alkaline Phosphatase Lactate Dehydrogenase 209 H Total Creatine Kinase Troponin T C-Reactive Protein 10.60 H NT-Pro-B Natriuret Pep Total Protein Albumin Cholesterol LDL Cholesterol Direct HDL Cholesterol PTH Intact Arterial Blood Glucose Urine WBC (Auto) Urine Creatinine Heparin-induced Plt Ab Lymph Enumerat CD4/CD8 Absolute CD3 Count Absolute CD4 Count % CD8 Cells Absolute CD8 Count Absolute CD19 Count Coronavirus (PCR) HIV-1 RNA PCR copies/ml HIV-1 RNA (PCR) log 09/21/20 09/21/20 09/21/20 05:35 17:09 23:18 WBC RBC Hgb Hct MCV MCH MCHC Plt Count Lymph % (Auto) [place] % (Auto) Lymph # (Auto) [place] # (Auto) Seg Neutrophils % Seg Neuts % (Manual) Lymphocytes % (Manual) Monocytes % (Manual) Nucleated RBC % Seg Neutrophils # Seg Neutrophils # Man Abs Lymphs (Manual) Lymphocytes # (Manual) PT INR APTT D-Dimer Heparin Anti-Xa Level ABG pH POC ABG pCO2 POC ABG pO2 ABG Oxyhemoglobin ABG Sodium ABG Potassium ABG Glucose Carboxyhemoglobin Sodium Chloride Carbon Dioxide BUN Creatinine Glucose POC Glucose 170 H 140 H 139 H Calcium Phosphorus Ferritin Total Bilirubin AST ALT Alkaline Phosphatase Lactate Dehydrogenase Total Creatine Kinase Troponin T C-Reactive Protein NT-Pro-B Natriuret Pep Total Protein Albumin Cholesterol LDL Cholesterol Direct HDL Cholesterol PTH Intact Arterial Blood Glucose Urine WBC (Auto) Urine Creatinine Heparin-induced Plt Ab Lymph Enumerat CD4/CD8 Absolute CD3 Count Absolute CD4 Count % CD8 Cells Absolute CD8 Count Absolute CD19 Count Coronavirus (PCR) HIV-1 RNA PCR copies/ml HIV-1 RNA (PCR) log 09/21/20 09/21/20 09/21/20 Unknown Unknown Unknown WBC RBC 3.56 L Hgb 11.3 L Hct 33.2 L MCV MCH MCHC Plt Count 125 L Lymph % (Auto) [place] % (Auto) Lymph # (Auto) [place] # (Auto) Seg Neutrophils % Seg Neuts % (Manual) 90.0 H Lymphocytes % (Manual) 8.0 L Monocytes % (Manual) Nucleated RBC % 1.0 H Seg Neutrophils # Seg Neutrophils # Man 9.4 H Abs Lymphs (Manual) Lymphocytes # (Manual) 0.8 L PT 16.8 H INR 1.36 H APTT D-Dimer Heparin Anti-Xa Level ABG pH POC ABG pCO2 POC ABG pO2 ABG Oxyhemoglobin ABG Sodium ABG Potassium ABG Glucose Carboxyhemoglobin Sodium Chloride Carbon Dioxide BUN 83 H Creatinine 4.3 H Glucose 163 H POC Glucose Calcium Phosphorus Ferritin Total Bilirubin 2.40 H AST ALT 57 H Alkaline Phosphatase < 5 L Lactate Dehydrogenase Total Creatine Kinase Troponin T C-Reactive Protein NT-Pro-B Natriuret Pep Total Protein Albumin 1.9 L Cholesterol LDL Cholesterol Direct HDL Cholesterol PTH Intact Arterial Blood Glucose Urine WBC (Auto) Urine Creatinine Heparin-induced Plt Ab Lymph Enumerat CD4/CD8 Absolute CD3 Count Absolute CD4 Count % CD8 Cells Absolute CD8 Count Absolute CD19 Count Coronavirus (PCR) HIV-1 RNA PCR copies/ml HIV-1 RNA (PCR) log 09/22/20 09/22/20 09/22/20 05:38 05:38 05:38 WBC 15.8 H RBC 3.36 L Hgb 10.8 L Hct 31.0 L MCV MCH MCHC 35 H Plt Count 68 L Lymph % (Auto) 3.1 L [place] % (Auto) 10.7 H Lymph # (Auto) 0.5 L [place] # (Auto) 1.7 H Seg Neutrophils % 85.9 H Seg Neuts % (Manual) Lymphocytes % (Manual) Monocytes % (Manual) Nucleated RBC % Seg Neutrophils # 13.6 H Seg Neutrophils # Man Abs Lymphs (Manual) Lymphocytes # (Manual) PT INR APTT D-Dimer 3281.49 H Heparin Anti-Xa Level ABG pH POC ABG pCO2 POC ABG pO2 ABG Oxyhemoglobin ABG Sodium ABG Potassium ABG Glucose Carboxyhemoglobin Sodium Chloride Carbon Dioxide BUN 61 H Creatinine 3.1 H Glucose 129 H POC Glucose Calcium Phosphorus Ferritin Total Bilirubin AST ALT Alkaline Phosphatase Lactate Dehydrogenase 277 H Total Creatine Kinase Troponin T C-Reactive Protein 6.60 H NT-Pro-B Natriuret Pep Total Protein Albumin Cholesterol LDL Cholesterol Direct HDL Cholesterol PTH Intact Arterial Blood Glucose Urine WBC (Auto) Urine Creatinine Heparin-induced Plt Ab Lymph Enumerat CD4/CD8 Absolute CD3 Count Absolute CD4 Count % CD8 Cells Absolute CD8 Count Absolute CD19 Count Coronavirus (PCR) HIV-1 RNA PCR copies/ml HIV-1 RNA (PCR) log 09/22/20 09/22/20 09/22/20 05:38 05:44 11:26 WBC RBC Hgb Hct MCV MCH MCHC Plt Count Lymph % (Auto) [place] % (Auto) Lymph # (Auto) [place] # (Auto) Seg Neutrophils % Seg Neuts % (Manual) Lymphocytes % (Manual) Monocytes % (Manual) Nucleated RBC % Seg Neutrophils # Seg Neutrophils # Man Abs Lymphs (Manual) Lymphocytes # (Manual) PT INR APTT D-Dimer Heparin Anti-Xa Level ABG pH POC ABG pCO2 POC ABG pO2 ABG Oxyhemoglobin ABG Sodium ABG Potassium ABG Glucose Carboxyhemoglobin Sodium Chloride Carbon Dioxide BUN Creatinine Glucose POC Glucose 112 H 131 H Calcium Phosphorus Ferritin 927.8 H Total Bilirubin AST ALT Alkaline Phosphatase Lactate Dehydrogenase Total Creatine Kinase Troponin T C-Reactive Protein NT-Pro-B Natriuret Pep Total Protein Albumin Cholesterol LDL Cholesterol Direct HDL Cholesterol PTH Intact Arterial Blood Glucose Urine WBC (Auto) Urine Creatinine Heparin-induced Plt Ab Lymph Enumerat CD4/CD8 Absolute CD3 Count Absolute CD4 Count % CD8 Cells Absolute CD8 Count Absolute CD19 Count Coronavirus (PCR) HIV-1 RNA PCR copies/ml HIV-1 RNA (PCR) log 09/22/20 09/22/20 09/22/20 15:12 15:12 15:12 WBC RBC Hgb Hct MCV MCH MCHC Plt Count Lymph % (Auto) [place] % (Auto) Lymph # (Auto) [place] # (Auto) Seg Neutrophils % Seg Neuts % (Manual) Lymphocytes % (Manual) Monocytes % (Manual) Nucleated RBC % Seg Neutrophils # Seg Neutrophils # Man Abs Lymphs (Manual) Lymphocytes # (Manual) PT 17.3 H INR 1.42 H APTT D-Dimer Heparin Anti-Xa Level ABG pH POC ABG pCO2 POC ABG pO2 ABG Oxyhemoglobin ABG Sodium ABG Potassium ABG Glucose Carboxyhemoglobin Sodium Chloride Carbon Dioxide BUN Creatinine 3.0 H Glucose POC Glucose Calcium Phosphorus Ferritin Total Bilirubin AST ALT Alkaline Phosphatase Lactate Dehydrogenase Total Creatine Kinase Troponin T C-Reactive Protein NT-Pro-B Natriuret Pep Total Protein Albumin Cholesterol LDL Cholesterol Direct HDL Cholesterol PTH Intact Arterial Blood Glucose Urine WBC (Auto) Urine Creatinine Heparin-induced Plt Ab Weak positive H Lymph Enumerat CD4/CD8 Absolute CD3 Count Absolute CD4 Count % CD8 Cells Absolute CD8 Count Absolute CD19 Count Coronavirus (PCR) HIV-1 RNA PCR copies/ml HIV-1 RNA (PCR) log 09/22/20 09/22/20 09/23/20 16:53 23:55 04:36 WBC 14.2 H RBC 3.05 L Hgb 9.8 L Hct 28.4 L MCV MCH MCHC Plt Count 39 L Lymph % (Auto) [place] % (Auto) Lymph # (Auto) [place] # (Auto) Seg Neutrophils % Seg Neuts % (Manual) 91.0 H Lymphocytes % (Manual) 2.0 L Monocytes % (Manual) Nucleated RBC % Seg Neutrophils # Seg Neutrophils # Man 12.9 H Abs Lymphs (Manual) Lymphocytes # (Manual) 0.3 L PT INR APTT D-Dimer Heparin Anti-Xa Level ABG pH POC ABG pCO2 POC ABG pO2 ABG Oxyhemoglobin ABG Sodium ABG Potassium ABG Glucose Carboxyhemoglobin Sodium Chloride Carbon Dioxide BUN Creatinine Glucose POC Glucose 138 H 171 H Calcium Phosphorus Ferritin Total Bilirubin AST ALT Alkaline Phosphatase Lactate Dehydrogenase Total Creatine Kinase Troponin T C-Reactive Protein NT-Pro-B Natriuret Pep Total Protein Albumin Cholesterol LDL Cholesterol Direct HDL Cholesterol PTH Intact Arterial Blood Glucose Urine WBC (Auto) Urine Creatinine Heparin-induced Plt Ab Lymph Enumerat CD4/CD8 Absolute CD3 Count Absolute CD4 Count % CD8 Cells Absolute CD8 Count Absolute CD19 Count Coronavirus (PCR) HIV-1 RNA PCR copies/ml HIV-1 RNA (PCR) log 09/23/20 09/23/20 09/23/20 04:36 05:41 11:38 WBC RBC Hgb Hct MCV MCH MCHC Plt Count Lymph % (Auto) [place] % (Auto) Lymph # (Auto) [place] # (Auto) Seg Neutrophils % Seg Neuts % (Manual) Lymphocytes % (Manual) Monocytes % (Manual) Nucleated RBC % Seg Neutrophils # Seg Neutrophils # Man Abs Lymphs (Manual) Lymphocytes # (Manual) PT INR APTT D-Dimer Heparin Anti-Xa Level ABG pH POC ABG pCO2 POC ABG pO2 ABG Oxyhemoglobin ABG Sodium ABG Potassium ABG Glucose Carboxyhemoglobin Sodium Chloride Carbon Dioxide BUN 76 H Creatinine 3.1 H Glucose 157 H POC Glucose 136 H 141 H Calcium Phosphorus Ferritin Total Bilirubin AST ALT Alkaline Phosphatase Lactate Dehydrogenase Total Creatine Kinase Troponin T C-Reactive Protein NT-Pro-B Natriuret Pep Total Protein Albumin Cholesterol LDL Cholesterol Direct HDL Cholesterol PTH Intact Arterial Blood Glucose Urine WBC (Auto) Urine Creatinine Heparin-induced Plt Ab Lymph Enumerat CD4/CD8 Absolute CD3 Count Absolute CD4 Count % CD8 Cells Absolute CD8 Count Absolute CD19 Count Coronavirus (PCR) HIV-1 RNA PCR copies/ml HIV-1 RNA (PCR) log 09/23/20 09/23/20 09/24/20 17:09 23:51 05:00 WBC 24.2 H RBC 3.23 L Hgb 10.0 L Hct 29.7 L MCV MCH MCHC Plt Count 74 L Lymph % (Auto) [place] % (Auto) Lymph # (Auto) [place] # (Auto) Seg Neutrophils % Seg Neuts % (Manual) Lymphocytes % (Manual) Monocytes % (Manual) Nucleated RBC % Seg Neutrophils # Seg Neutrophils # Man Abs Lymphs (Manual) Lymphocytes # (Manual) PT INR APTT D-Dimer Heparin Anti-Xa Level ABG pH POC ABG pCO2 POC ABG pO2 ABG Oxyhemoglobin ABG Sodium ABG Potassium ABG Glucose Carboxyhemoglobin Sodium Chloride Carbon Dioxide BUN Creatinine Glucose POC Glucose 128 H 128 H Calcium Phosphorus Ferritin Total Bilirubin AST ALT Alkaline Phosphatase Lactate Dehydrogenase Total Creatine Kinase Troponin T C-Reactive Protein NT-Pro-B Natriuret Pep Total Protein Albumin Cholesterol LDL Cholesterol Direct HDL Cholesterol PTH Intact Arterial Blood Glucose Urine WBC (Auto) Urine Creatinine Heparin-induced Plt Ab Lymph Enumerat CD4/CD8 Absolute CD3 Count Absolute CD4 Count % CD8 Cells Absolute CD8 Count Absolute CD19 Count Coronavirus (PCR) HIV-1 RNA PCR copies/ml HIV-1 RNA (PCR) log 09/24/20 09/24/20 09/24/20 05:00 05:00 05:00 WBC RBC Hgb Hct MCV MCH MCHC Plt Count Lymph % (Auto) [place] % (Auto) Lymph # (Auto) [place] # (Auto) Seg Neutrophils % Seg Neuts % (Manual) Lymphocytes % (Manual) Monocytes % (Manual) Nucleated RBC % Seg Neutrophils # Seg Neutrophils # Man Abs Lymphs (Manual) Lymphocytes # (Manual) PT INR APTT D-Dimer 1772.86 H Heparin Anti-Xa Level ABG pH POC ABG pCO2 POC ABG pO2 ABG Oxyhemoglobin ABG Sodium ABG Potassium ABG Glucose Carboxyhemoglobin Sodium Chloride 107.1 H Carbon Dioxide BUN 90 H Creatinine 3.1 H Glucose 118 H POC Glucose Calcium Phosphorus Ferritin 1190.0 H Total Bilirubin AST ALT Alkaline Phosphatase Lactate Dehydrogenase 276 H Total Creatine Kinase Troponin T C-Reactive Protein 4.20 H NT-Pro-B Natriuret Pep Total Protein Albumin Cholesterol LDL Cholesterol Direct HDL Cholesterol PTH Intact Arterial Blood Glucose Urine WBC (Auto) Urine Creatinine Heparin-induced Plt Ab Lymph Enumerat CD4/CD8 Absolute CD3 Count Absolute CD4 Count % CD8 Cells Absolute CD8 Count Absolute CD19 Count Coronavirus (PCR) HIV-1 RNA PCR copies/ml HIV-1 RNA (PCR) log 09/24/20 09/24/20 09/24/20 05:12 11:25 12:09 WBC RBC Hgb Hct MCV MCH MCHC Plt Count Lymph % (Auto) [place] % (Auto) Lymph # (Auto) [place] # (Auto) Seg Neutrophils % Seg Neuts % (Manual) Lymphocytes % (Manual) Monocytes % (Manual) Nucleated RBC % Seg Neutrophils # Seg Neutrophils # Man Abs Lymphs (Manual) Lymphocytes # (Manual) PT INR APTT D-Dimer Heparin Anti-Xa Level ABG pH POC ABG pCO2 POC ABG pO2 ABG Oxyhemoglobin ABG Sodium ABG Potassium ABG Glucose Carboxyhemoglobin Sodium Chloride Carbon Dioxide BUN Creatinine 3.1 H Glucose POC Glucose 114 H 110 H Calcium Phosphorus Ferritin Total Bilirubin AST ALT Alkaline Phosphatase Lactate Dehydrogenase Total Creatine Kinase Troponin T C-Reactive Protein NT-Pro-B Natriuret Pep Total Protein Albumin Cholesterol LDL Cholesterol Direct HDL Cholesterol PTH Intact Arterial Blood Glucose Urine WBC (Auto) Urine Creatinine Heparin-induced Plt Ab Lymph Enumerat CD4/CD8 Absolute CD3 Count Absolute CD4 Count % CD8 Cells Absolute CD8 Count Absolute CD19 Count Coronavirus (PCR) HIV-1 RNA PCR copies/ml HIV-1 RNA (PCR) log 09/24/20 09/24/20 09/24/20 12:13 12:13 17:41 WBC 20.8 H RBC 3.04 L Hgb 9.5 L Hct 28.0 L MCV MCH MCHC Plt Count 78 L Lymph % (Auto) [place] % (Auto) Lymph # (Auto) [place] # (Auto) Seg Neutrophils % Seg Neuts % (Manual) Lymphocytes % (Manual) Monocytes % (Manual) Nucleated RBC % Seg Neutrophils # Seg Neutrophils # Man Abs Lymphs (Manual) Lymphocytes # (Manual) PT 15.7 H INR 1.27 H APTT D-Dimer Heparin Anti-Xa Level ABG pH POC ABG pCO2 POC ABG pO2 ABG Oxyhemoglobin ABG Sodium ABG Potassium ABG Glucose Carboxyhemoglobin Sodium Chloride Carbon Dioxide BUN Creatinine Glucose POC Glucose 133 H Calcium Phosphorus Ferritin Total Bilirubin AST ALT Alkaline Phosphatase Lactate Dehydrogenase Total Creatine Kinase Troponin T C-Reactive Protein NT-Pro-B Natriuret Pep Total Protein Albumin Cholesterol LDL Cholesterol Direct HDL Cholesterol PTH Intact Arterial Blood Glucose Urine WBC (Auto) Urine Creatinine Heparin-induced Plt Ab Lymph Enumerat CD4/CD8 Absolute CD3 Count Absolute CD4 Count % CD8 Cells Absolute CD8 Count Absolute CD19 Count Coronavirus (PCR) HIV-1 RNA PCR copies/ml HIV-1 RNA (PCR) log 09/24/20 09/25/20 09/25/20 23:34 06:40 06:40 WBC RBC Hgb Hct MCV MCH MCHC Plt Count Lymph % (Auto) [place] % (Auto) Lymph # (Auto) [place] # (Auto) Seg Neutrophils % Seg Neuts % (Manual) Lymphocytes % (Manual) Monocytes % (Manual) Nucleated RBC % Seg Neutrophils # Seg Neutrophils # Man Abs Lymphs (Manual) Lymphocytes # (Manual) PT INR APTT D-Dimer Heparin Anti-Xa Level ABG pH POC ABG pCO2 POC ABG pO2 ABG Oxyhemoglobin ABG Sodium ABG Potassium ABG Glucose Carboxyhemoglobin Sodium Chloride 109.0 H Carbon Dioxide BUN 98 H Creatinine 3.0 H 3.0 H Glucose 111 H POC Glucose 113 H Calcium Phosphorus Ferritin Total Bilirubin AST ALT Alkaline Phosphatase Lactate Dehydrogenase Total Creatine Kinase Troponin T C-Reactive Protein NT-Pro-B Natriuret Pep Total Protein Albumin Cholesterol LDL Cholesterol Direct HDL Cholesterol PTH Intact Arterial Blood Glucose Urine WBC (Auto) Urine Creatinine Heparin-induced Plt Ab Lymph Enumerat CD4/CD8 Absolute CD3 Count Absolute CD4 Count % CD8 Cells Absolute CD8 Count Absolute CD19 Count Coronavirus (PCR) HIV-1 RNA PCR copies/ml HIV-1 RNA (PCR) log 09/25/20 09/25/20 09/25/20 10:45 12:45 18:03 WBC 20.7 H RBC 3.33 L Hgb 10.2 L Hct 31.3 L MCV MCH MCHC Plt Count 139 L Lymph % (Auto) [place] % (Auto) Lymph # (Auto) [place] # (Auto) Seg Neutrophils % Seg Neuts % (Manual) Lymphocytes % (Manual) Monocytes % (Manual) Nucleated RBC % Seg Neutrophils # Seg Neutrophils # Man Abs Lymphs (Manual) Lymphocytes # (Manual) PT INR APTT D-Dimer Heparin Anti-Xa Level ABG pH POC ABG pCO2 POC ABG pO2 ABG Oxyhemoglobin ABG Sodium ABG Potassium ABG Glucose Carboxyhemoglobin Sodium Chloride Carbon Dioxide BUN Creatinine Glucose POC Glucose 108 H 114 H Calcium Phosphorus Ferritin Total Bilirubin AST ALT Alkaline Phosphatase Lactate Dehydrogenase Total Creatine Kinase Troponin T C-Reactive Protein NT-Pro-B Natriuret Pep Total Protein Albumin Cholesterol LDL Cholesterol Direct HDL Cholesterol PTH Intact Arterial Blood Glucose Urine WBC (Auto) Urine Creatinine Heparin-induced Plt Ab Lymph Enumerat CD4/CD8 Absolute CD3 Count Absolute CD4 Count % CD8 Cells Absolute CD8 Count Absolute CD19 Count Coronavirus (PCR) HIV-1 RNA PCR copies/ml HIV-1 RNA (PCR) log 09/25/20 09/26/20 09/26/20 23:29 05:00 07:06 WBC 17.0 H RBC 3.10 L Hgb 9.6 L Hct 28.8 L MCV MCH MCHC Plt Count Lymph % (Auto) [place] % (Auto) Lymph # (Auto) [place] # (Auto) Seg Neutrophils % Seg Neuts % (Manual) Lymphocytes % (Manual) Monocytes % (Manual) Nucleated RBC % Seg Neutrophils # Seg Neutrophils # Man Abs Lymphs (Manual) Lymphocytes # (Manual) PT INR APTT D-Dimer Heparin Anti-Xa Level ABG pH POC ABG pCO2 POC ABG pO2 ABG Oxyhemoglobin ABG Sodium ABG Potassium ABG Glucose Carboxyhemoglobin Sodium Chloride Carbon Dioxide BUN Creatinine Glucose POC Glucose 111 H 115 H Calcium Phosphorus Ferritin Total Bilirubin AST ALT Alkaline Phosphatase Lactate Dehydrogenase Total Creatine Kinase Troponin T C-Reactive Protein NT-Pro-B Natriuret Pep Total Protein Albumin Cholesterol LDL Cholesterol Direct HDL Cholesterol PTH Intact Arterial Blood Glucose Urine WBC (Auto) Urine Creatinine Heparin-induced Plt Ab Lymph Enumerat CD4/CD8 Absolute CD3 Count Absolute CD4 Count % CD8 Cells Absolute CD8 Count Absolute CD19 Count Coronavirus (PCR) HIV-1 RNA PCR copies/ml HIV-1 RNA (PCR) log 09/26/20 09/26/20 09/27/20 07:06 17:26 04:00 WBC RBC Hgb Hct MCV MCH MCHC Plt Count Lymph % (Auto) [place] % (Auto) Lymph # (Auto) [place] # (Auto) Seg Neutrophils % Seg Neuts % (Manual) Lymphocytes % (Manual) Monocytes % (Manual) Nucleated RBC % Seg Neutrophils # Seg Neutrophils # Man Abs Lymphs (Manual) Lymphocytes # (Manual) PT INR APTT D-Dimer Heparin Anti-Xa Level ABG pH POC ABG pCO2 POC ABG pO2 ABG Oxyhemoglobin ABG Sodium ABG Potassium ABG Glucose Carboxyhemoglobin Sodium Chloride Carbon Dioxide BUN 69 H 67 H Creatinine 2.2 H 2.3 H Glucose 107 H 121 H POC Glucose 124 H Calcium Phosphorus Ferritin Total Bilirubin AST ALT Alkaline Phosphatase Lactate Dehydrogenase Total Creatine Kinase Troponin T C-Reactive Protein NT-Pro-B Natriuret Pep Total Protein Albumin Cholesterol LDL Cholesterol Direct HDL Cholesterol PTH Intact Arterial Blood Glucose Urine WBC (Auto) Urine Creatinine Heparin-induced Plt Ab Lymph Enumerat CD4/CD8 Absolute CD3 Count Absolute CD4 Count % CD8 Cells Absolute CD8 Count Absolute CD19 Count Coronavirus (PCR) HIV-1 RNA PCR copies/ml HIV-1 RNA (PCR) log 09/27/20 09/27/20 09/27/20 04:00 05:00 17:11 WBC 14.6 H RBC 2.72 L Hgb 8.6 L Hct 25.8 L MCV 95 H MCH MCHC Plt Count Lymph % (Auto) 4.3 L [place] % (Auto) Lymph # (Auto) 0.6 L [place] # (Auto) 0.9 H Seg Neutrophils % 89.6 H Seg Neuts % (Manual) Lymphocytes % (Manual) Monocytes % (Manual) Nucleated RBC % Seg Neutrophils # 13.1 H Seg Neutrophils # Man Abs Lymphs (Manual) Lymphocytes # (Manual) PT INR APTT D-Dimer Heparin Anti-Xa Level ABG pH POC ABG pCO2 POC ABG pO2 ABG Oxyhemoglobin ABG Sodium ABG Potassium ABG Glucose Carboxyhemoglobin Sodium Chloride Carbon Dioxide BUN Creatinine 2.4 H Glucose POC Glucose 132 H Calcium Phosphorus Ferritin Total Bilirubin AST ALT Alkaline Phosphatase Lactate Dehydrogenase Total Creatine Kinase Troponin T C-Reactive Protein NT-Pro-B Natriuret Pep Total Protein Albumin Cholesterol LDL Cholesterol Direct HDL Cholesterol PTH Intact Arterial Blood Glucose Urine WBC (Auto) Urine Creatinine Heparin-induced Plt Ab Lymph Enumerat CD4/CD8 Absolute CD3 Count Absolute CD4 Count % CD8 Cells Absolute CD8 Count Absolute CD19 Count Coronavirus (PCR) HIV-1 RNA PCR copies/ml HIV-1 RNA (PCR) log 09/28/20 09/28/20 04:46 04:46 WBC 14.6 H RBC 2.66 L Hgb 8.4 L Hct 25.3 L MCV 95 H MCH MCHC Plt Count Lymph % (Auto) [place] % (Auto) Lymph # (Auto) [place] # (Auto) Seg Neutrophils % Seg Neuts % (Manual) Lymphocytes % (Manual) Monocytes % (Manual) Nucleated RBC % Seg Neutrophils # Seg Neutrophils # Man Abs Lymphs (Manual) Lymphocytes # (Manual) PT INR APTT D-Dimer Heparin Anti-Xa Level ABG pH POC ABG pCO2 POC ABG pO2 ABG Oxyhemoglobin ABG Sodium ABG Potassium ABG Glucose Carboxyhemoglobin Sodium Chloride Carbon Dioxide BUN 71 H Creatinine 2.3 H Glucose 105 H POC Glucose Calcium Phosphorus Ferritin Total Bilirubin AST ALT Alkaline Phosphatase Lactate Dehydrogenase Total Creatine Kinase Troponin T C-Reactive Protein NT-Pro-B Natriuret Pep Total Protein Albumin Cholesterol LDL Cholesterol Direct HDL Cholesterol PTH Intact Arterial Blood Glucose Urine WBC (Auto) Urine Creatinine Heparin-induced Plt Ab Lymph Enumerat CD4/CD8 Absolute CD3 Count Absolute CD4 Count % CD8 Cells Absolute CD8 Count Absolute CD19 Count Coronavirus (PCR) HIV-1 RNA PCR copies/ml HIV-1 RNA (PCR) log Allied health notes reviewed: nursing
--- NOTE | 2020-09-28 12:23 | Progress Note ---
Assessment and Plan 1. Acute kidney injury: Vasomotor LOLI in the setting of shock. ATN likely. Renal US negative for hydro. Multiple bladder scan negative. Patient require hemodialysis due to significant decline in the renal function. Hemodialysis: 09/20, 09/21, 09/25. Monitor renal function. Renal prognosis is guarded. Avoid nephrotoxic agents. Meds dosage based on GFR. 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 2. FEN: Metabolic acidosis, improved, monitor. Monitor volume status and lytes. 3. Acute hypoxic respiratory failure: Covid test positive. Supplemental O2. 4. Acute CHF: Echocardiogram: EF 40-45%. CHF orderset / pathway. Monitor. 5. Atrial fibrillation with RVR: On Amio. Followed by Cards. 6. Elevated troponin: Trend. Followed by Cards. 7. Coagulopathy: Trend. 8. Shock / Hypotension: Multifactorial, monitor. Off pressors. 9. Elevated Transaminases: Improving. 10. Metabolic encephalopathy: Monitor. 11. HIV. 12. Anemia, POA: Monitor. Subjective: Patient was seen and examined at the bedside. RN at the bedside. Objective: General appearance: well-developed, appears stated age, pt trying to come out of the bed HEENT: ATNC, L pupil dilated Neck: trachea midline Respiratory: bilateral diminished breath sounds Heart: S1S2, no murmur Gastrointestinal: soft, normoactive bowel sounds, not tender Integumentary: no obvious rash Ext: no edema Neurologic: lethargic, non-verbal, not following any command Hemodialysis access: R subclavian catheter Subjective Date of service: 09/28/20 Principal diagnosis: Acute Resp Fail, Sepsis, AF with RVR Objective - Vital Signs Vital signs: Vital Signs - 12hr 09/28/20 09/28/20 09/28/20 00:31 00:41 01:00 Temperature Pulse Rate 100 H 96 H 95 H Pulse Rate [ From Monitor] Respiratory 11 L 12 11 L Rate Blood Pressure 86/57 91/55 O2 Sat by Pulse 100 99 100 Oximetry 09/28/20 09/28/20 09/28/20 01:31 02:00 02:31 Temperature Pulse Rate 93 H 101 H 100 H Pulse Rate [ From Monitor] Respiratory 11 L 10 L 11 L Rate Blood Pressure 91/55 106/72 106/72 O2 Sat by Pulse 100 100 100 Oximetry 09/28/20 09/28/20 09/28/20 03:00 03:21 03:31 Temperature Pulse Rate 97 H 105 H Pulse Rate [ From Monitor] Respiratory 13 12 14 Rate Blood Pressure 92/70 92/70 O2 Sat by Pulse 100 100 Oximetry 09/28/20 09/28/20 09/28/20 04:00 04:31 05:00 Temperature 98.8 F Pulse Rate 111 H 111 H 96 H Pulse Rate [ 102 H From Monitor] Respiratory 11 L 12 12 Rate Blood Pressure 114/86 114/86 99/57 O2 Sat by Pulse 99 100 100 Oximetry 09/28/20 09/28/20 09/28/20 05:31 06:00 06:31 Temperature Pulse Rate 79 87 81 Pulse Rate [ From Monitor] Respiratory 11 L 11 L 10 L Rate Blood Pressure 99/57 89/50 89/50 O2 Sat by Pulse 100 100 100 Oximetry 09/28/20 09/28/20 09/28/20 07:00 07:30 07:31 Temperature Pulse Rate 96 H 108 H Pulse Rate [ From Monitor] Respiratory 11 L 12 Rate Blood Pressure 116/80 116/80 O2 Sat by Pulse 100 100 100 Oximetry 09/28/20 09/28/20 09/28/20 08:00 08:31 09:00 Temperature Pulse Rate Pulse Rate [ From Monitor] Respiratory Rate Blood Pressure 109/73 109/73 93/65 O2 Sat by Pulse 99 98 99 Oximetry 09/28/20 09/28/20 09/28/20 09:31 10:00 10:31 Temperature Pulse Rate 120 H 107 H Pulse Rate [ From Monitor] Respiratory 14 11 L Rate Blood Pressure 93/65 94/73 94/73 O2 Sat by Pulse 98 99 100 Oximetry 09/28/20 09/28/20 09/28/20 11:01 11:31 12:00 Temperature Pulse Rate 113 H 114 H 110 H Pulse Rate [ From Monitor] Respiratory 12 Rate Blood Pressure 118/84 118/84 121/81 O2 Sat by Pulse 63 L 99 Oximetry - Lab 09/28/20 04:46 09/28/20 04:46 Most recent lab results ABG pH 7.508 (7.320-7.450) H 09/17/20 10:28 ABG O2 Saturation 93.4 (0-100) 09/17/20 10:28 Calcium 9.2 mg/dL (8.4-10.2) 09/28/20 04:46 Phosphorus 2.90 mg/dL (2.5-4.5) 09/26/20 07:06 Magnesium 1.70 mg/dL (1.7-2.3) 09/26/20 07:06 Urine Creatinine 61.0 mg/dL (0.1-20.0) H 09/18/20 12:00 Urine Sodium 62 mmol/L 09/18/20 12:00 Medications & Allergies - Medications Allergies/Adverse Reactions: Allergies No Known Allergies Allergy (Unverified 09/15/20 06:37) Home Medications: Home Medications Medication Instructions Recorded Confirmed Last Taken Type AtorvaSTATin [Lipitor] 20 mg PO QHS 09/18/20 09/18/20 Unknown History Dolutegravir [Tivicay] 50 mg PO DAILY 09/18/20 09/18/20 Unknown History Emtricitabine/Tenofov Alafenam 1 tab PO DAILY 09/18/20 09/18/20 Unknown History [Descovy 200-25 mg (Nf)] Rivaroxaban [Xarelto] 15 mg PO QDAY 09/18/20 09/18/20 Unknown History allopurinoL [Zyloprim] 300 mg PO QDAY 09/18/20 09/18/20 Unknown History carvediloL [Coreg] 25 mg PO BID 09/18/20 09/18/20 Unknown History lisinopriL [Lisinopril] 20 mg PO DAILY 09/18/20 09/18/20 Unknown History Active Medications: Generic Name Dose Route Start Last Admin Trade Name Freq PRN Reason Stop Dose Admin Acetaminophen 650 mg 09/17/20 13:52 09/28/20 03:21 Acetaminophen 325 Mg Tab PO 650 mg Q4H PRN Administration Pain MILD(1-3)/Fever >100.5/ANGEL Albuterol 2.5 mg 09/17/20 13:52 09/17/20 20:47 Albuterol 2.5 Mg/3 Ml Nebu IH 2.5 mg Q4HRT PRN Administration Shortness Of Breath Amiodarone HCl 200 mg 09/24/20 22:00 09/28/20 10:00 Amiodarone 200 Mg Tab PO 200 mg BID EDIE Administration Lipase/Protease/Amylase 1 each 09/20/20 13:10 Lipase 10,500/Protease 25,000/Amylase 43,750 (Units) Dr Patrick FEEDTUBE PRN PRN For Clogged Feeding Tube Apixaban 2.5 mg 09/24/20 12:00 09/28/20 10:00 Apixaban 2.5 Mg Tab PO 2.5 mg Q12HR EDIE Administration Protocol Ascorbic Acid 500 mg 09/20/20 22:00 09/28/20 10:00 Ascorbic Acid 500 Mg Tab PO 500 mg BID EDIE Administration Cholecalciferol 1,000 unit 09/21/20 10:00 09/28/20 10:00 Cholecalciferol (Vit D3) 1000 Unit (25 Mcg) Tab PO 1,000 unit QDAY EDIE Administration Dexamethasone 6 mg 09/20/20 17:00 09/28/20 10:00 Dexamethasone 4 Mg Tab PO 09/29/20 10:01 6 mg QDAY EDIE Administration Emtricitabine 200 mg 09/20/20 12:00 09/24/20 11:00 Emtricitabine 200 Mg Cap PO 200 mg Q96H EDIE Administration Famotidine 20 mg 09/24/20 10:00 09/28/20 10:00 Famotidine 20 Mg Tab PO 20 mg DAILY EDIE Administration Heparin Sodium (Porcine) 3,000 unit 09/20/20 10:06 Heparin 10,000 Units/10 Ml Vial IV VIRGIL PRN hemodialysis Sodium Chloride 100 mls @ 999 mls/hr 09/20/20 10:06 Nacl 0.9% IV VIRGIL PRN Hypotension Metoprolol Tartrate 5 mg 09/19/20 19:06 09/24/20 10:59 Metoprolol Tartrate 5 Mg/5 Ml Inj IV 5 mg Q8HR PRN Administration HR > 135 Minute Metoprolol Tartrate 25 mg 09/24/20 22:00 09/28/20 10:00 Metoprolol Tartrate 25 Mg Tab PO 25 mg BID EDIE Administration Midodrine 5 mg 09/22/20 12:00 09/28/20 10:00 Midodrine 5 Mg Tab PO 5 mg TID@0800,1200,1600 EDIE Administration Ondansetron HCl 4 mg 09/17/20 13:52 Ondansetron 4 Mg/2 Ml Inj IV Q8H PRN Nausea And Vomiting Oxycodone HCl 5 mg 09/21/20 13:14 09/27/20 23:19 Oxycodone 5 Mg Tab PO 5 mg Q6H PRN Administration Pain, Moderate (4-6) Simple Syrup 15 ml 09/20/20 13:10 Simple Syrup 15 Ml FEEDTUBE PRN PRN Hypoglycemia Simple Syrup 30 ml 09/20/20 13:10 Simple Syrup 15 Ml FEEDTUBE PRN PRN Hypoglycemia Sodium Bicarbonate 325 mg 09/20/20 13:10 Sodium Bicarbonate 325 Mg Tab FEEDTUBE PRN PRN For Clogged Feeding Tube Sodium Chloride 10 ml 09/17/20 22:00 09/27/20 21:40 Sodium Chloride 0.9% 10 Ml Flush Syringe IV 10 ml BID EDIE Administration Sodium Chloride 10 ml 09/17/20 13:52 09/24/20 09:15 Sodium Chloride 0.9% 10 Ml Flush Syringe IV 10 ml PRN PRN Administration LINE FLUSH Tenofovir Disoproxil Fumarate 300 mg 09/20/20 22:00 09/27/20 21:39 Tenofovir 300 Mg Tab PO 300 mg Mo EDIE Administration Zinc Sulfate 220 mg 09/21/20 10:00 09/28/20 10:00 Zinc Sulfate 220 Mg Cap PO 220 mg QDAY EDIE Administration
--- NOTE | 2020-09-28 12:55 | Progress Note ---
Assessment and Plan Cultures: 09/18/2020 COVID-19 PCR: Positive 09/18/2020 blood culture: E.coli 09/18/2020 Urine culture: E.coli 09/19/2020 sputum culture: Contaminated with oral secretions 09/19/2020 HIV RNA PCR: 67 copies per mL Assessment: 70-year-old male with history of HIV infection (unknown CD4/VL/ART compliance), hypertension, atrial fibrillation on Xarelto, initially admitted on 09/15/2020 RVR A. fib, LOLI, left AMA, came back to the ED on 09/17/2020 secondary to worsening shortness of breath for 3 days: #Severe sepsis with septic shock: Shock resolved. Remains with leukocytosis. Secondary to E.coli bacteremia likely from UTI. HIDA scan negative for acute cholecystitis. #E.coli bacteremia: Likely from UTI. RUQ US did show a large GB stone. Labs initially with elevated LFTs and bilirubin. HIDA negative. Was seen by Gen Surg. #UTI: Urinalysis with 71 WBCs and moderate leukocyte esterase. Urine culture with E.coli #COVID-19: PCR positive. On supplemental oxygen. Was not given remdesivir due to renal failure. #LOLI: renally dose meds and antimicrobials. On HD. #Acute respiratory hypoxic failure: Remains on 3 L #HIV: listed meds are Descovy + Tivicay. Likely good control since his HIV RNA PCR came back at 67 copies/ml. CD4 is 70 but 30%, overall count is low likely due to steroids. OI prophylaxis is not needed. #Acute encephalopathy: ?multifactorial. CT head unremarkable for acute process. Remains confused. Recommendations: -continue IV ceftriaxone 2 g daily ending 09/28/2020 (total 10 days) -complete steroid course for COVID-19 -continue renally dosed antiretroviral therapy based on formulary/therapeutic interchange: TDF + FTC + DTG -anticoag per protocol, on eliquis -Monitor off antibiotics Will follow. Arlene Patel MD Infectious Diseases Lead Bi Developer [facility] ([facility] M [phone] O [phone] Subjective Date of service: 09/28/20 Principal diagnosis: Acute Resp Fail, Sepsis, AF with RVR Interval history: Patient is alert, confused, agitated, pulling lines and NG tube. Remains on 3 L nasal cannula. Objective - Exam Narrative Exam: General appearance: Alert, in no acute distress, on nasal cannula oxygen Eyes: anicteric sclerae, moist conjunctivae; no lid-lag; PERRLA HENT: Normocephalic, Atraumatic; normal external ears, nares open, oropharynx limited partially edentulous Neck: supple, tracheal midline, no JVD Lungs: Bilateral scattered rhonchi CV: RRR Abdomen: Soft, tender to palpation grimaces on the right upper quadrant Extremities: No edema Skin: No rash. Psych: Anxious Neuro: Alert, confused - Constitutional Vitals: Vital Signs Temp Pulse Resp BP Pulse Ox 98.8 F 112 H 12 121/81 99 09/28/20 04:00 09/28/20 12:00 09/28/20 12:00 09/28/20 12:00 09/28/20 12:00 Temperature -Last 24 Hours Temperature 98.8 F Temperature 98.7 F Temperature 98.8 F Temperature 97.5 F - Labs CBC & Chem 7: 09/28/20 04:46 09/28/20 04:46 Labs: Abnormal lab results 09/27/20 09/28/20 09/28/20 Range/Units 17:11 04:46 04:46 WBC 14.6 H (4.5-11.0) K/mm3 RBC 2.66 L (3.65-5.03) M/mm3 Hgb 8.4 L (11.8-15.2) gm/dl Hct 25.3 L (35.5-45.6) % MCV 95 H (84-94) fl BUN 71 H (9-20) mg/dL Creatinine 2.3 H (0.8-1.3) mg/dL Glucose 105 H (75-100) mg/dL POC Glucose 132 H (70-105) mg/dL
[2020-09-28] MEDS: oxyCODONE 5 MG TAB PO PRN ×2 (13:42→21:27)
[2020-09-28] MEDS: EMTRICITABINE 200 MG CAP PO SCH (13:44)
--- NOTE | 2020-09-28 15:30 | Progress Note ---
Assessment and Plan * A. fib with RVR * Telemetry reviewed: Atrial fibrillation 100s-110s. No events * Continue rate control regimen: Amiodarone 200 mg p.o. twice daily, metoprolol 25 mg p.o. twice daily. * Continue anticoagulation with Eliquis 2.5 mg twice daily in setting of renal disease * NSTEMI * Troponins elevated, subacute and nonspecific over the weekend. Suspect lab error. Repeat troponins are normal. * Echocardiogram reviewed (09/18/2020): LVEF is 40 to 45%. LVSF is mildly decreased. Mild concentric LVH. RVSF is mildly reduced. No valvular abnormalities. * LOLI with acute tubular necrosis * Patient on dialysis. Nephrology is following. * No GEMA/ARB in setting of LOLI. Avoid nephrotoxic agents. * DVT prophylaxis * Currently on Eliquis We will follow This patient was seen in conjunction with Dr Feliciano Grey who agrees with this assessment and plan of care - Patient Problems (1) AMS (altered mental status) Current Visit: Yes Status: Acute Qualifiers: Altered mental status type: somnolence Qualified Code(s): R40.0 - Somnolence (2) Acute hypoxemic respiratory failure Current Visit: Yes Status: Acute (3) Acute kidney injury (LOLI) with acute tubular necrosis (ATN) Current Visit: Yes Status: Acute (4) Atrial fibrillation with RVR Current Visit: Yes Status: Acute (5) NSTEMI (non-ST elevated myocardial infarction) Current Visit: Yes Status: Acute (6) Metabolic acidosis Current Visit: No Status: Acute (7) Systemic inflammatory response syndrome Current Visit: No Status: Acute Subjective Date of service: 09/28/20 Principal diagnosis: Acute Resp Fail, Sepsis, AF with RVR Interval history: Patient is resting in bed. Altered mental status, agitated requiring restraints in the setting of septic shock. Telemetry reviewed: A. fib flutter/fib 100s-110s. No events Objective Last Vital Signs Temp 97.9 F 09/28/20 12:00 Pulse 113 H 09/28/20 14:31 Resp 14 09/28/20 14:31 BP 129/85 09/28/20 14:31 Pulse Ox 100 09/28/20 12:00 - Physical Examination General: No Apparent Distress HEENT: Positive: Normocephaly, Mucus Membranes Moist Neck: Positive: neck supple. Negative: JVD/HJR Cardiac: Positive: irregularly irregular, S1/S2 Lungs: Positive: Normal Exam Neuro: Positive: Grossly Intact Abdomen: Positive: Soft Skin: Negative: Rash Musculoskeletal: No Pain Extremities: Present: lower extr. pulses. Absent: edema - Labs and Meds CBC 09/28/20 Range/Units 04:46 WBC 14.6 H (4.5-11.0) K/mm3 RBC 2.66 L (3.65-5.03) M/mm3 Hgb 8.4 L (11.8-15.2) gm/dl Hct 25.3 L (35.5-45.6) % Plt Count 220 (140-440) K/mm3 Comprehensive Metabolic Panel 09/28/20 Range/Units 04:46 Sodium 141 (137-145) mmol/L Potassium 4.7 (3.6-5.0) mmol/L Chloride 104.2 (98-107) mmol/L Carbon Dioxide 30 (22-30) mmol/L BUN 71 H (9-20) mg/dL Creatinine 2.3 H (0.8-1.3) mg/dL Glucose 105 H (75-100) mg/dL Calcium 9.2 (8.4-10.2) mg/dL - Imaging and Cardiology EKG: report reviewed, image reviewed Echo: report reviewed (09/18/2020 - EF 40-45%, mild concentric LVH, RV sys fxn mildly reduced, no significant valvular abnormality) - EKG Supraventricular dysrhythmia: atrial fibrillation Myocardial infarction: septal SC (old age or ind, anterior SC (old age or i - Allied health notes Allied health notes reviewed: nursing
--- NOTE | 2020-09-28 15:34 | Progress Note ---
Assessment and Plan Assessment and plan: This is 70-year-old male with HIV, HTN, and atrial fibrillation (currently on therapeutic anticoagulation with Xarelto) presents the emergency department on 09/17 with complaints of shortness of breath over the past 3 days and on arrival of EMS patient was found to have a pulse oximetry of 85% on room air. He was placed on supplemental oxygenation. Of note patient was admitted on 09/15 with similar complaints and found to have A. fib with RVR, hyponatremia, hypomagnesemia and acute kidney injury and left AMA. He was admitted to the hospital service with atrial fibrillation with RVR, SIRs, metabolic acidosis, acute kidney injury, acute hypoxic respiratory failure, hypotension, and CHF . Cardiology, CCM and nephrology were consulted. 09/18/2020. Await echocardiogram to assess for diastolic versus systolic etiology. Patient with elevated BNP greater than 18,000. Patient apparently was admitted approximately 3 days ago but left AMA. Cardiology consulted for heart failure, A. fib with RVR and elevated troponin. Patient denies chest pain. Also, patient with elevated creatinine of 4.7 with creatinine 2.8 on recent admission. We do not have a previous creatinine as a baseline to compar e. Nephrology consultation pending. Follow-up renal ultrasound. Patient with coagulopathy and INR 3.04. Unsure if patient was on anticoagulation for A. fib. 09/19/2020. Patient likely with vasomotor acute kidney injury in the setting of shock. Follow-up urine studies and renal ultrasound. Creatinine continues to worsen. Nephrology following. Etiology of respiratory failure secondary to hea rt failure with Covid testing pending. Elevated troponin suggestive of NSTEMI. Continue diuresis with Lasix. Continue IV amiodarone for rate control of A. fib with RVR. Continue heparin. Follow-up echocardiogram. Cardiology following. 09/20/2020: This time my examination patient was on BiPAP therapy and now is on nasal cannula. Patient remains on amiodarone drip with heart rate in the 130s t o 140s and vasopressor support with Levophed. Today nephrology will initiate hemodialysis given worsening renal function studies and has stopped diuresis with Lasix. ID resumed antiretroviral therapy and ordered a HIDA scan. Today the patient received a temporary Vas-Cath and is COVID-19 PCR resulted as positive. Patient will be started on vitamin C, vitamin D and zinc and dexamethasone given need for supplemental oxygenation. 09/21: Ecoli UTI and bacteremia and ID has changed him to meropenem, Patient received HD yesterday and patient remains on amiodarone drip. He is off the floor to obtain a HIDA scan. 09/22: HIDA scan did not show acute cholecystitis. Ecoli bacteremia is sensitive to ceftriaxone and ID changed his abx. Mentation is better. BP is liable. Remains on levophed and vasopressin. We started midodrine. HIT panel pending and hem/onc consulted. 09/23: Patient noted to have unequal pupils with left >right, STAT CT head ordered. Nephro will withhold hemodialysis and assess needs as kidney function has gotten better. Patient symptomatically follows commands and is on nasal cannula. Cardiology stopped his Eliquis due to persistent thrombocytopenia. 09/24: Patient remains confused, pupils still unequal. Started on eliquis 2.5 today and he will be transferred to IMCU. 09/25: Patient remains confused, had Bipap overnight, CT abd/pelvis ordered per ID recommendations given persistent leukocytosis. Cr remains unchanged but BUN in rising. Nephrology is on the case. 09/26/2020; patient was confused and on 3 L of oxygen. ID is following the patient and continue with antiretroviral medications, no OI prophylaxis needed. Patient is on IV Rocephin lasted 09/28 per ID recommendation for E. coli bacteremia. ID ordered CT abdomen and pelvis. We will follow the results. Sulaiman wild is being followed by cardiology and they recommend to resume Eliquis with 2.5 mg p.o. twice daily, thrombocytopenia is improving. Patient is on amiodarone and metoprolol. Patient is being followed by nephrology and is on dialysis. Blood pressure was normal this morning. Patient was tachycardic in A. fib with RVR. CT head was normal. Prognosis is guarded. Continue IMCU care. 09/27: Continue IMCU care, still with unresolved Afib, will continue to adjust medications for better control. 09/28: Start Seroquel DUE TO THE AGITATION, Discussed with daughter, will work on getting Afib better controlled. Per daughter the confusion is new, although some improvement noted today. Patient will benefit from SNF Septic Shock Acute hypoxemic respiratory failure 2/2 to volume overload/chf exacerbation Acute systolic heart failure exacerbation Atrial fibrillation with RVR Acute on chronic kidney injury Hypotension Anemia Thrombocytopenia E coli bacteremia E. coli urinary tract infection NSTEMI Elevated Ddimer Leukocytosis HIV, asymptomatic HTN Coagulopathy Transaminitis -Cardiology, CCM, Nephrology, ID, general surgery, heme/onc consulted, appreciate recommendations -09/20 COVID-19 PCR positive -Droplet/isolation precautions -Dexamethasone 6 mg p.o. (09/20-09/30) -Vitamin D, vitamin C, zinc -Vasopressor support with levophed and vasopressin, midodrine -09/17 CXR shows borderline heart size, mild central pulmonary venous congestion -09/17 renal ultrasound shows no acute findings -09/18 echocardiogram shows left ventricle systolic function mildly decreased, LVEF of 40 to 45% with mild concentric left ventricle hypertrophy, trace MR, mild TR, trace LA -09/19 abdominal ultrasound shows large gallstone within the gallbladder, no pericholecystic fluid, gallbladder wall upper limits of normal measuring 3 mm -09/21 HIDA scan shows no evidence of acute cholecystitis -09/21 BLE Dopplar US no evidence for DVT -09/23 CT head shows no acute intracranial hemorrhage or parenchymal abnormality, mild diffuse brain atrophy with commensurate ventricular enlargement which is likely age appropriate, small frontal scalp lipoma measuring 9 mm in thickness, 4 cm in length, and 4 cm in width., Sinuses and mastoid air cells are clear. -09/17 proBNP [id number] -S/p IV Lasix twice daily -09/20 nephrology initiated the patient on dialysis -Pulmonary hygiene -Bipap qhs -09/25 CT abd/pelvis without contrast pending -PO amiodarone -HIV meds per ID -IV abx therapy -HIT pending -Trend CBC, BMP, LFTs DVT/GI prophylaxis: PPI, SCDs to bilateral lower extremities while in bed, no chemical anticoagulation at this time d/t thrombocytopenia Disposition: IMCU History Interval history: This is 70-year-old male with HIV, HTN, and atrial fibrillation (currently on therapeutic anticoagulation with Xarelto) admitted with atrial fibrillation with RVR, SIRs, metabolic acidosis, acute kidney injury, acute hypoxic respiratory failure, hypotension, and CHF Patient seen and examined, No new issues reported except agitation, remains on 3 liters of oxygen Hospitalist Physical - Physical exam Narrative exam: Patient was on 3L of oxygen. The patient appeared well nourished and normally developed. Vital signs as documented. Head exam is unremarkable. No scleral icterus . Neck is without jugular venous distension, thyromegaly, or carotid bruits. Lungs are clear to auscultation. Cardiac exam reveals regular rate and Rhythm. Abdominal exam reveals normal bowel sounds, nontender, no organomegaly. Extremities are nonedematous and both femoral and pedal pulses are normal. 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 - Constitutional Vitals: Temp Pulse Resp BP Pulse Ox 97.9 F 126 H 14 129/85 100 09/28/20 12:00 09/28/20 15:00 09/28/20 14:31 09/28/20 15:00 09/28/20 12:00 General appearance: Present: no acute distress HEART Score - HEART Score Troponin: Troponin T < 0.010 ng/mL (0.00-0.029) 09/22/20 05:38 Results - Labs CBC & Chem 7: 09/29/20 04:45 09/29/20 04:45 Labs: Laboratory Last Values WBC 14.6 K/mm3 (4.5-11.0) H 09/28/20 04:46 RBC 2.66 M/mm3 (3.65-5.03) L 09/28/20 04:46 Hgb 8.4 gm/dl (11.8-15.2) L 09/28/20 04:46 Hct 25.3 % (35.5-45.6) L 09/28/20 04:46 MCV 95 fl (84-94) H 09/28/20 04:46 MCH 32 pg (28-32) 09/28/20 04:46 MCHC 33 % (32-34) 09/28/20 04:46 RDW 13.9 % (13.2-15.2) 09/28/20 04:46 Plt Count 220 K/mm3 (140-440) 09/28/20 04:46 Lymph % (Auto) 4.3 % (13.4-35.0) L 09/27/20 04:00 [place] % (Auto) 6.0 % (0.0-7.3) 09/27/20 04:00 Eos % (Auto) 0.1 % (0.0-4.3) 09/27/20 04:00 Baso % (Auto) 0.0 % (0.0-1.8) 09/27/20 04:00 Lymph # (Auto) 0.6 K/mm3 (1.2-5.4) L 09/27/20 04:00 [place] # (Auto) 0.9 K/mm3 (0.0-0.8) H 09/27/20 04:00 Eos # (Auto) 0.0 K/mm3 (0.0-0.4) 09/27/20 04:00 Baso # (Auto) 0.0 K/mm3 (0.0-0.1) 09/27/20 04:00 Add Manual Diff Complete 09/23/20 04:36 Total Counted 100 09/23/20 04:36 Seg Neutrophils % 89.6 % (40.0-70.0) H 09/27/20 04:00 Seg Neuts % (Manual) 91.0 % (40.0-70.0) H 09/23/20 04:36 Band Neutrophils % 2.0 % 09/23/20 04:36 Lymphocytes % (Manual) 2.0 % (13.4-35.0) L 09/23/20 04:36 Monocytes % (Manual) 5.0 % (0.0-7.3) 09/23/20 04:36 Nucleated RBC % Not Reportable 09/23/20 04:36 Seg Neutrophils # 13.1 K/mm3 (1.8-7.7) H 09/27/20 04:00 Seg Neutrophils # Man 12.9 K/mm3 (1.8-7.7) H 09/23/20 04:36 Band Neutrophils # 0.3 K/mm3 09/23/20 04:36 Abs Lymphs (Manual) 223 cells/uL (850-3900) L 09/19/20 13:35 Lymphocytes # (Manual) 0.3 K/mm3 (1.2-5.4) L 09/23/20 04:36 Abs React Lymphs (Man) 0.0 K/mm3 09/23/20 04:36 Monocytes # (Manual) 0.7 K/mm3 (0.0-0.8) 09/23/20 04:36 Eosinophils # (Manual) 0.0 K/mm3 (0.0-0.4) 09/23/20 04:36 Basophils # (Manual) 0.0 K/mm3 (0.0-0.1) 09/23/20 04:36 Metamyelocytes # 0.0 K/mm3 09/23/20 04:36 Myelocytes # 0.0 K/mm3 09/23/20 04:36 Promyelocytes # 0.0 K/mm3 09/23/20 04:36 Blast Cells # 0.0 K/mm3 09/23/20 04:36 WBC Morphology Not Reportable 09/23/20 04:36 Hypersegmented Neuts Not Reportable 09/23/20 04:36 Hyposegmented Neuts Not Reportable 09/23/20 04:36 Hypogranular Neuts Not Reportable 09/23/20 04:36 Smudge Cells Not Reportable 09/23/20 04:36 Toxic Granulation Not Reportable 09/23/20 04:36 Toxic Vacuolation Not Reportable 09/23/20 04:36 Dohle Bodies Not Reportable 09/23/20 04:36 Pelger-Huet Anomaly Not Reportable 09/23/20 04:36 Vinh Rods Not Reportable 09/23/20 04:36 Platelet Estimate Consistent w auto 09/23/20 04:36 Clumped Platelets Not Reportable 09/23/20 04:36 Plt Clumps, EDTA Not Reportable 09/23/20 04:36 Large Platelets Not Reportable 09/23/20 04:36 Giant Platelets Not Reportable 09/23/20 04:36 Platelet Satelliting Not Reportable 09/23/20 04:36 Plt Morphology Comment Not Reportable 09/23/20 04:36 RBC Morphology Not Reportable 09/23/20 04:36 Dimorphic RBCs Not Reportable 09/23/20 04:36 Polychromasia Not Reportable 09/23/20 04:36 Hypochromasia Not Reportable 09/23/20 04:36 Poikilocytosis Not Reportable 09/23/20 04:36 Anisocytosis 1+ 09/23/20 04:36 Microcytosis Not Reportable 09/23/20 04:36 Macrocytosis Not Reportable 09/23/20 04:36 Spherocytes Not Reportable 09/23/20 04:36 Pappenheimer Bodies Not Reportable 09/23/20 04:36 Sickle Cells Not Reportable 09/23/20 04:36 Target Cells Few 09/23/20 04:36 Tear Drop Cells Not Reportable 09/23/20 04:36 Ovalocytes Not Reportable 09/23/20 04:36 Helmet Cells Not Reportable 09/23/20 04:36 [place] Bodies Not Reportable 09/23/20 04:36 [place] Rings Not Reportable 09/23/20 04:36 [place] Cells Not Reportable 09/23/20 04:36 Bite Cells Not Reportable 09/23/20 04:36 Crenated Cell Not Reportable 09/23/20 04:36 Elliptocytes Not Reportable 09/23/20 04:36 Acanthocytes (Spur) Not Reportable 09/23/20 04:36 Rouleaux Not Reportable 09/23/20 04:36 Hemoglobin C Crystals Not Reportable 09/23/20 04:36 Schistocytes Not Reportable 09/23/20 04:36 Malaria parasites Not Reportable 09/23/20 04:36 Zachary Bodies Not Reportable 09/23/20 04:36 Hem Pathologist Commnt No 09/23/20 04:36 PT 15.7 Sec. (12.2-14.9) H 09/24/20 12:13 INR 1.27 (0.87-1.13) H 09/24/20 12:13 APTT 25.7 Sec. (24.2-36.6) 09/24/20 12:13 D-Dimer 1772.86 ng/mlDDU (0-234) H 09/24/20 05:00 Heparin Anti-Xa Level 0.10 U.I./ml (0.3-0.7) L 09/20/20 04:00 Heparin Anti-Xa, Unfract Negative (Negative) 09/22/20 15:12 ABG pH 7.508 (7.320-7.450) H 09/17/20 10:28 POC ABG pCO2 22.8 mmHg (32.0-48.0) L 09/17/20 10:28 POC ABG pO2 66.8 mmHg (83-108) L 09/17/20 10:28 POC ABG HCO3 17.7 09/17/20 10:28 ABG O2 Saturation 93.4 (0-100) 09/17/20 10:28 POC ABG Base Excess -3.5 09/17/20 10:28 ABG Hemoglobin 12.7 (12.0-17.5) 09/17/20 10:28 ABG Oxyhemoglobin 92.7 (94-98) L 09/17/20 10:28 ABG Methemoglobin 0.3 (0.0-1.5) 09/17/20 10:28 ABG Sodium 127.4 mmol/L (136.0-145.0) L 09/17/20 10:28 ABG Potassium 4.7 mmol/L (3.40-4.50) H 09/17/20 10:28 ABG Chloride 101.0 mmol/L (98-107) 09/17/20 10:28 ABG Glucose 121 mg/dL (65-95) H 09/17/20 10:28 Carboxyhemoglobin 0.4 (0.5-1.5) L 09/17/20 10:28 FiO2 % 21 09/17/20 10:28 Sodium 141 mmol/L (137-145) 09/28/20 04:46 Potassium 4.7 mmol/L (3.6-5.0) 09/28/20 04:46 Chloride 104.2 mmol/L (98-107) 09/28/20 04:46 Carbon Dioxide 30 mmol/L (22-30) 09/28/20 04:46 Anion Gap 12 mmol/L 09/28/20 04:46 BUN 71 mg/dL (9-20) H 09/28/20 04:46 Creatinine 2.3 mg/dL (0.8-1.3) H 09/28/20 04:46 Estimated GFR 34 ml/min 09/28/20 04:46 BUN/Creatinine Ratio 31 % 09/28/20 04:46 Glucose 105 mg/dL (75-100) H 09/28/20 04:46 POC Glucose 91 mg/dL (70-105) 09/28/20 11:41 Lactic Acid 1.00 mmol/L (0.7-2.0) 09/20/20 17:10 Calcium 9.2 mg/dL (8.4-10.2) 09/28/20 04:46 Phosphorus 2.90 mg/dL (2.5-4.5) 09/26/20 07:06 Magnesium 1.70 mg/dL (1.7-2.3) 09/26/20 07:06 Ferritin 1190.0 ng/mL (30.0-300.0) H 09/24/20 05:00 Total Bilirubin 2.40 mg/dL (0.1-1.2) H 09/21/20 Unknown AST 31 units/L (5-40) 09/21/20 Unknown ALT 57 units/L (7-56) H 09/21/20 Unknown Alkaline Phosphatase < 5 units/L (35-129) L 09/21/20 Unknown Lactate Dehydrogenase 276 units/L (91-180) H 09/24/20 05:00 Total Creatine Kinase 20 units/L (55-170) L 09/19/20 03:30 Troponin T < 0.010 ng/mL (0.00-0.029) 09/22/20 05:38 C-Reactive Protein 4.20 mg/dL (0.00-1.30) H 09/24/20 05:00 NT-Pro-B Natriuret Pep 57046 pg/mL (0-900) H 09/17/20 10:47 Total Protein 6.7 g/dL (6.3-8.2) 09/21/20 Unknown Albumin 1.9 g/dL (3.9-5) L 09/21/20 Unknown Albumin/Globulin Ratio 0.4 % 09/21/20 Unknown Triglycerides 137 mg/dL (2-149) 09/17/20 13:54 Cholesterol 48 mg/dL (50-199) L 09/17/20 13:54 LDL Cholesterol Direct 4 mg/dL (50-130) L 09/17/20 13:54 HDL Cholesterol 9 mg/dL (40-59) L 09/17/20 13:54 Cholesterol/HDL Ratio 5.33 % 09/17/20 13:54 Free PSA See scanned result 09/17/20 17:35 % Free PSA Calc See scanned result 09/17/20 17:35 Total PSA See scanned result 09/17/20 17:35 Procalcitonin 2.10 ng/mL (<0.15) 09/25/20 06:40 PTH Intact 161.4 pg/mL (15-65) H 09/19/20 03:30 Arterial Blood Glucose 121 mg/dL (65-95) H 09/17/20 10:28 Arterial Blood Ionized Calcium 5.0 mg/dL (4.6-5.3) 09/17/20 10:28 Urine Color Yellow (Yellow) 09/18/20 12:00 Urine Turbidity Cloudy (Clear) 09/18/20 12:00 Urine pH 5.0 (5.0-7.0) 09/18/20 12:00 Ur Specific [place] 1.009 (1.003-1.030) 09/18/20 12:00 Urine Protein 30 mg/dl mg/dL (Negative) 09/18/20 12:00 Urine Glucose (UA) Neg mg/dL (Negative) 09/18/20 12:00 Urine Ketones Neg mg/dL (Negative) 09/18/20 12:00 Urine Blood Sm (Negative) 09/18/20 12:00 Urine Nitrite Neg (Negative) 09/18/20 12:00 Urine Bilirubin Neg (Negative) 09/18/20 12:00 Urine Urobilinogen < 2.0 mg/dL (<2.0) 09/18/20 12:00 Ur Leukocyte Esterase Mod (Negative) 09/18/20 12:00 Urine WBC (Auto) 71.0 /HPF (0.0-6.0) H 09/18/20 12:00 Urine RBC (Auto) 2.0 /HPF (0.0-6.0) 09/18/20 12:00 U Epithel Cells (Auto) 1.0 /HPF (0-13.0) 09/18/20 12:00 Urine Bacteria (Auto) 4+ /HPF (Negative) 09/18/20 12:00 Urine WBC Clumps 2+ /HPF 09/18/20 12:00 Hyaline Casts 3 /LPF 09/18/20 12:00 Granular Casts 3 /LPF 09/18/20 12:00 Urine Mucus Few /HPF 09/18/20 12:00 Urine Eosinophils None seen (None Seen) 09/19/20 03:15 Urine Creatinine 61.0 mg/dL (0.1-20.0) H 09/18/20 12:00 Urine Sodium 62 mmol/L 09/18/20 12:00 Random Vancomycin 12.7 ug/mL (0-40.0) 09/19/20 03:30 Heparin-induced Plt Ab Weak positive (Negative) H 09/22/20 15:12 UF Heparin High Dose 0 % Release 09/22/20 15:12 CORAZON UFH Low Dose 0.1 0 % Release 09/22/20 15:12 [place]ON UFH Low Dose 0.5 0 % Release 09/22/20 15:12 Lymph Enumerat CD4/CD8 0.70 (0.86-5.00) L 09/19/20 13:35 % CD3 Cells 79 % (57-85) 09/19/20 13:35 Absolute CD3 Count 175 cells/uL (840-3060) L 09/19/20 13:35 % CD4 Cells 31 % (30-61) 09/19/20 13:35 Absolute CD4 Count 70 cells/uL (490-1740) L 09/19/20 13:35 % CD8 Cells 45 % (12-42) H 09/19/20 13:35 Absolute CD8 Count 101 cells/uL (180-1170) L 09/19/20 13:35 % CD19 Cells 12 % (6-29) 09/19/20 13:35 Absolute CD19 Count 26 cells/uL (110-660) L 09/19/20 13:35 Coronavirus (PCR) Positive (Negative) A 09/18/20 09:39 Hepatitis A IgM Ab Non-reactive (NonReactive) 09/20/20 17:10 Hep Bs Antigen Non-reactive (Negative) 09/20/20 17:10 Hep B Core IgM Ab Non-reactive (NonReactive) 09/20/20 17:10 Hepatitis C Antibody Non-reactive (NonReactive) 09/20/20 17:10 HIV-1 RNA PCR copies/ml 67 Copies/mL H 09/19/20 13:35 HIV-1 RNA (PCR) log 1.83 Log cps/mL H 09/19/20 13:35 [place]/IV: Voiding Method Diaper Active Medications - Current Medications Current Medications: Generic Name Dose Route Start Last Admin Trade Name Freq PRN Reason Stop Dose Admin Acetaminophen 650 mg 09/17/20 13:52 09/28/20 03:21 Acetaminophen 325 Mg Tab PO 650 mg Q4H PRN Administration Pain MILD(1-3)/Fever >100.5/ANGEL Albuterol 2.5 mg 09/17/20 13:52 09/17/20 20:47 Albuterol 2.5 Mg/3 Ml Nebu IH 2.5 mg Q4HRT PRN Administration Shortness Of Breath Amiodarone HCl 200 mg 09/24/20 22:00 09/28/20 10:00 Amiodarone 200 Mg Tab PO 200 mg BID EDIE Administration Lipase/Protease/Amylase 1 each 09/20/20 13:10 Lipase 10,500/Protease 25,000/Amylase 43,750 (Units) Dr Patrick FEEDTUBE PRN PRN For Clogged Feeding Tube Apixaban 2.5 mg 09/24/20 12:00 09/28/20 10:00 Apixaban 2.5 Mg Tab PO 2.5 mg Q12HR EDIE Administration Protocol Ascorbic Acid 500 mg 09/20/20 22:00 09/28/20 10:00 Ascorbic Acid 500 Mg Tab PO 500 mg BID EDIE Administration Cholecalciferol 1,000 unit 09/21/20 10:00 09/28/20 10:00 Cholecalciferol (Vit D3) 1000 Unit (25 Mcg) Tab PO 1,000 unit QDAY EDIE Administration Dexamethasone 6 mg 09/20/20 17:00 09/28/20 10:00 Dexamethasone 4 Mg Tab PO 09/29/20 10:01 6 mg QDAY EDIE Administration Emtricitabine 200 mg 09/20/20 12:00 09/28/20 13:44 Emtricitabine 200 Mg Cap PO 200 mg Q96H EDIE Administration Famotidine 20 mg 09/24/20 10:00 09/28/20 10:00 Famotidine 20 Mg Tab PO 20 mg DAILY EDIE Administration Heparin Sodium (Porcine) 3,000 unit 09/20/20 10:06 Heparin 10,000 Units/10 Ml Vial IV VIRGIL PRN hemodialysis Sodium Chloride 100 mls @ 999 mls/hr 09/20/20 10:06 Nacl 0.9% IV VIRGIL PRN Hypotension Metoprolol Tartrate 5 mg 09/19/20 19:06 09/24/20 10:59 Metoprolol Tartrate 5 Mg/5 Ml Inj IV 5 mg Q8HR PRN Administration HR > 135 Minute Metoprolol Tartrate 25 mg 09/24/20 22:00 09/28/20 10:00 Metoprolol Tartrate 25 Mg Tab PO 25 mg BID EDIE Administration Midodrine 5 mg 09/22/20 12:00 09/28/20 13:45 Midodrine 5 Mg Tab PO 5 mg TID@0800,1200,1600 EDIE Administration Ondansetron HCl 4 mg 09/17/20 13:52 Ondansetron 4 Mg/2 Ml Inj IV Q8H PRN Nausea And Vomiting Oxycodone HCl 5 mg 09/21/20 13:14 09/28/20 13:42 Oxycodone 5 Mg Tab PO 5 mg Q6H PRN Administration Pain, Moderate (4-6) Simple Syrup 15 ml 09/20/20 13:10 Simple Syrup 15 Ml FEEDTUBE PRN PRN Hypoglycemia Simple Syrup 30 ml 09/20/20 13:10 Simple Syrup 15 Ml FEEDTUBE PRN PRN Hypoglycemia Sodium Bicarbonate 325 mg 09/20/20 13:10 Sodium Bicarbonate 325 Mg Tab FEEDTUBE PRN PRN For Clogged Feeding Tube Sodium Chloride 10 ml 09/17/20 22:00 09/27/20 21:40 Sodium Chloride 0.9% 10 Ml Flush Syringe IV 10 ml BID EDIE Administration Sodium Chloride 10 ml 09/17/20 13:52 09/24/20 09:15 Sodium Chloride 0.9% 10 Ml Flush Syringe IV 10 ml PRN PRN Administration LINE FLUSH Tenofovir Disoproxil Fumarate 300 mg 09/20/20 22:00 09/27/20 21:39 Tenofovir 300 Mg Tab PO 300 mg Mo EDIE Administration Zinc Sulfate 220 mg 09/21/20 10:00 09/28/20 10:00 Zinc Sulfate 220 Mg Cap PO 220 mg QDAY EDIE Administration Nutrition/Malnutrition Assess - Dietary Evaluation Nutrition/Malnutrition Findings: Nutrition Notes Start: 09/18/20 11:30 Freq: Status: Active Protocol: Document 09/27/20 13:30 MELISSA (Rec: 09/27/20 13:40 [facility] [id number]) Nutrition Notes Initial or Follow up Reassessment Current Diagnosis Acute Kidney Injury,Sepsis, Hypertension,Heart Failure, Respiratory Failure Other Pertinent Diagnosis COVID-19 (+), AMS, UTI, afib with RVR, HIV (+) Current Diet TF - Nepro at 45ml/hr Labs/Tests BUN 67 Cr 2.3 Pertinent Medications Reviewed Height 6 ft 1 in Weight 73 kg [place] Body Weight (kg) 83.63 BMI 21.2 Weight Status Underweight Subjective/Other Information Pt pulled out NGT yesterday, however, it was re-inserted and confirmed by KUB. Spoke with RN via phone at 13:28. Pt tolerating TF at goal rate. Percent of energy/protein needs met: 100% energy 99% pro Burn Absent Trauma Absent #2 Nutrition Diagnosis Inadequate oral intake Diagnosis Progress(for reassessment Continues documentation) Is patient on ventilator? No Is Patient Ambulatory and/or Out of Bed No REE-([place]-confined to bed) 1858.500 Kcal/Kg value to use for calculation 30 Approximate Energy Requirements Using 2190 kcal/Kg Calculation Used for Recommendations Kcal/kg Additional Notes Pro needs >1.2g/kg: >88g/day Fluid needs 1-1.5L/day Nutrition Intervention Nutrition Support: Continue Nepro at 45 ml/hr with a free water flush of 200 ml q4h Kcal 1,944 Protein (gm) 87 Fluid (mL) 785 Goal #1 TF tolerance Goal #2 TF to meet 75-100% energy and pro needs Goal #3 Wt maintenance and/or gain Follow-Up By: 10/04/20 Additional Comments F/U: stable TF, wt
[2020-09-29 05:19] LABS: Hematocrit 28.1 % (35.5-45.6); Hemoglobin 9.6 gm/dl (11.8-15.2); Mean Corpuscular HGB Conc 34 % (32-34); Mean Corpuscular Volume 96 fl (84-94); Platelet Count 266 K/mm3 (140-440); Red Blood Count 2.92 M/mm3 (3.65-5.03); Red Cell Distribution Width 13.8 % (13.2-15.2)
[2020-09-29 05:37] LABS: Calcium 9.4 mg/dL (8.4-10.2)
[2020-09-29] MEDS: oxyCODONE 5 MG TAB PO PRN (05:51)
--- NOTE | 2020-09-29 09:02 | Progress Note ---
Assessment and Plan 70 YO Male with HIV, HTN, Atrial Fib currently of therapeutic anticoagulation with Xarelto presents to ED for evaluation. Patient reports "I just can't breathe". Patient states that he has experienced shortness of breath over the past 3 days with persistently worsening symptoms over the same timeframe. EMS notified and upon arrival the patient was found to be in distress with a pulse oximetry of 85% on room air. The patient was placed on supplemental oxygen and subsequently transported to [facility] for further care and evaluation of the aforementioned symptoms. The patient was admitted to this hospital 2 days ago, 09/15, for similar complaints and was found to have A. fib with RVR, hyponatremia, hypomagnesemia and acute kidney injury. Shortly after the patient was admitted he left AMA. The patient was seen and evaluated in the emergency department. All lab and imaging studies reviewed. The patient was also found to have a pulse oximetry of 86% on room air which is consistent with acute hypoxemic respiratory failure. The patient was found to have atrial fibrillation with rapid ventricular response, metabolic acidosis, acute kidney injury, as well as symptoms consistent with acute CHF decompensation. The patient was found to be hypotensive with a blood pressure of 78/43 which resulted in a MAP less than 65. Patient admitted to [facility] due to increased risk of cardiopulmonary decompensation. Patient treated with antiarrhythmic therapy in the emergency department, and initiated on CHF protocol. Cardiology and Nep hrology and pulmonary and critical care consulted. Patient awake and patient presently resting on room air. O2 saturation running 100%. BiPap 20/8, rate of 10, FiO2 40% STANDBY in room. Patient appears depressed. No acute respiratory distress at rest. Patient afebrile, with no leukocytosis. Patient's coronavirus test was positive. Patient's inflammatory markers: D-dimer: 1772.86, Ferritin: 1,190, Lactic: 1.00, C-reactive protein: 4.20, NT Pro-BNP: 18,204, Troponin < 0.01, CPK: 20, LDH: 276 Medications include apixaban, albuterol, famotidine, tenofovir, Chest x-ray done on 09/20/20 showed no acute pulmonary or pleural findings. No pneumothorax. Patient is seen in [facility]. I spent critical care time of 32 minutes, reviewing the chart, examining the patient, review chest xray, labs, talking to the respiratory therapy and nursing staff and work out plan of treatment in this cricall ill COVID 19 Positive patient. - Patient Problems (1) Acute hypoxemic respiratory failure Current Visit: Yes Status: Acute Plan to address problem: Patient resting on room air. O2 saturation running 100%. BiPap 20/8, rate of 10, FiO2 40% STANDBY in room. No acute respiratory distress at rest. Medications include albuterol. (2) CHF (congestive heart failure) Current Visit: Yes Status: Acute Qualifiers: Heart failure type: systolic Heart failure chronicity: acute Qualified Code(s): I50.21 - Acute systolic (congestive) heart failure Plan to address problem: Management as per cardiology (3) LOLI (acute kidney injury) Current Visit: Yes Status: Acute Plan to address problem: Management as per nephrology. (4) AMS (altered mental status) Current Visit: Yes Status: Acute Qualifiers: Altered mental status type: somnolence Qualified Code(s): R40.0 - Somnolence Plan to address problem: Management as per primary team. (5) Atrial fibrillation with RVR Current Visit: Yes Status: Acute Plan to address problem: Management as cardiology. Patient is on Apixaban (6) Coronavirus infection Current Visit: Yes Status: Acute Plan to address problem: Patients [place] virus PCR is positive. Management as per ID. (7) HIV (human immunodeficiency virus infection) Current Visit: Yes Status: Chronic Plan to address problem: Management as per ID. Subjective Date of service: 09/29/20 Principal diagnosis: Acute Resp Fail, Sepsis, AF with RVR Interval history: 70 YO Male with HIV, HTN, Atrial Fib currently of therapeutic anticoagulation with Xarelto presents to ED for evaluation. Patient reports "I just can't breathe". Patient states that he has experienced shortness of breath over the past 3 days with persistently worsening symptoms over the same timeframe. EMS notified and upon arrival the patient was found to be in distress with a pulse oximetry of 85% on room air. The patient was placed on supplemental oxygen and subsequently transported to [facility] for further care and evaluation of the aforementioned symptoms. The patient was admitted to this hospital 2 days ago, 09/15, for similar complaints and was found to have A. fib with RVR, hyponatremia, hypomagnesemia and acute kidney injury. Shortly after the patient was admitted he left AMA. The patient was seen and evaluated in the emergency department. All lab and imaging studies reviewed. The patient was also found to have a pulse oximetry of 86% on room air which is consistent with acute hypoxemic respiratory failure. The patient was found to have atrial fibrillation with rapid ventricular response, metabolic acidosis, acute kidney injury, as well as symptoms consistent with acute CHF decompensation. The zenaida ent was found to be hypotensive with a blood pressure of 78/43 which resulted in a MAP less than 65. Patient admitted to [facility] due to increased risk of cardiopulmonary decompensation. Patient treated with antiarrhythmic therapy in the emergency department, and initiated on CHF protocol. Cardiology and Nephrology and pulmonary and critical care consulted. Patient awake and patient presently resting on room air. O2 saturation running 100%. BiPap 20/8, rate of 10, FiO2 40% STANDBY in room. Patient appears depressed. No acute respiratory distress at rest. Patient afebrile, with no leukocytosis. Patient's coronavirus test was positive. Patient's inflammatory markers: D-dimer: 1772.86, Ferritin: 1,190, Lactic: 1.00, C-reactive protein: 4.20, NT Pro-BNP: 18,204, Troponin < 0.01, CPK: 20, LDH: 276 Medications include apixaban, albuterol, famotidine, tenofovir, Chest x-ray done on 09/20/20 showed no acute pulmonary or pleural findings. No pneumothorax. Objective Vital Signs - 12hr 09/28/20 09/28/20 09/28/20 21:27 21:28 21:30 Temperature Pulse Rate 114 H 122 H Pulse Rate [ From Monitor] Respiratory 12 10 L Rate Blood Pressure 108/76 108/76 O2 Sat by Pulse Oximetry 09/28/20 09/28/20 09/28/20 22:00 22:30 22:34 Temperature Pulse Rate 87 86 Pulse Rate [ From Monitor] Respiratory 12 12 Rate Blood Pressure 115/76 108/76 108/76 O2 Sat by Pulse 95 96 Oximetry 09/28/20 09/28/20 09/28/20 22:48 23:00 23:30 Temperature Pulse Rate 89 85 Pulse Rate [ From Monitor] Respiratory 11 L 11 L Rate Blood Pressure 103/71 103/71 O2 Sat by Pulse 97 97 97 Oximetry 09/29/20 09/29/20 09/29/20 00:00 00:30 01:00 Temperature 98.5 F Pulse Rate 96 H 90 88 Pulse Rate [ 96 H From Monitor] Respiratory 20 11 L 11 L Rate Blood Pressure 125/86 125/86 108/76 O2 Sat by Pulse 100 93 Oximetry 09/29/20 09/29/20 09/29/20 01:30 02:00 02:30 Temperature Pulse Rate 102 H 89 106 H Pulse Rate [ From Monitor] Respiratory 9 L 13 10 L Rate Blood Pressure 108/76 106/74 106/74 O2 Sat by Pulse 86 70 L Oximetry 09/29/20 09/29/20 09/29/20 03:00 03:30 04:00 Temperature 97.6 F Pulse Rate 105 H 97 H 114 H Pulse Rate [ 106 H From Monitor] Respiratory 12 15 14 Rate Blood Pressure 123/77 123/77 118/86 O2 Sat by Pulse 66 L 90 96 Oximetry 09/29/20 09/29/20 09/29/20 04:30 05:00 05:30 Temperature Pulse Rate 114 H 109 H 109 H Pulse Rate [ From Monitor] Respiratory 10 L 13 17 Rate Blood Pressure 118/86 126/90 126/90 O2 Sat by Pulse Oximetry 09/29/20 09/29/20 09/29/20 06:00 06:30 07:00 Temperature Pulse Rate 114 H 112 H 137 H Pulse Rate [ From Monitor] Respiratory 13 15 11 L Rate Blood Pressure 125/88 125/88 125/88 O2 Sat by Pulse 91 Oximetry 09/29/20 09/29/20 09/29/20 07:30 08:00 08:30 Temperature 97.8 F Pulse Rate 119 H 102 H Pulse Rate [ From Monitor] Respiratory 14 13 Rate Blood Pressure 121/93 121/93 O2 Sat by Pulse 100 97 Oximetry Constitutional: no acute distress, alert, appears uncomfortable, other (elderly male with mildly increased respiratory effort at rest) Eyes: non-icteric ENT: oropharynx moist Neck: supple, no lymphadenopathy, no JVD Effort: mildly labored Ascultation: Bilateral: rhonchi, other (right SCVL Trialysis catheter) Percussion: Bilateral: not dull Cardiovascular: irregular rhythm Gastrointestinal: normoactive bowel sounds, soft, non-tender, non-distended Integumentary: normal Extremities: no cyanosis, no edema, pulses normal, no ischemia or petechiae Neurologic: non-focal exam (grossly), pupils equal and round, CN II-XII normal, other (delirious) Psychiatric: depressed, other (delirious) CBC and BMP: 09/29/20 04:45 09/29/20 04:45 ABG, PT/INR, D-dimer: ABG ABG pH 7.508 (7.320-7.450) H 09/17/20 10:28 POC ABG pCO2 22.8 mmHg (32.0-48.0) L 09/17/20 10:28 POC ABG pO2 66.8 mmHg (83-108) L 09/17/20 10:28 POC ABG HCO3 17.7 09/17/20 10:28 ABG O2 Saturation 93.4 (0-100) 09/17/20 10:28 PT/INR, D-dimer PT 15.7 Sec. (12.2-14.9) H 09/24/20 12:13 INR 1.27 (0.87-1.13) H 09/24/20 12:13 D-Dimer 1772.86 ng/mlDDU (0-234) H 09/24/20 05:00 Abnormal lab findings: Abnormal Labs 09/17/20 09/17/20 09/17/20 10:28 10:47 10:47 WBC 11.1 H RBC 3.44 L Hgb 11.2 L Hct 32.8 L MCV 95 H MCH MCHC Plt Count Lymph % (Auto) [place] % (Auto) Lymph # (Auto) [place] # (Auto) Seg Neutrophils % Seg Neuts % (Manual) Lymphocytes % (Manual) 4.0 L Monocytes % (Manual) Nucleated RBC % Seg Neutrophils # Seg Neutrophils # Man 10.7 H Abs Lymphs (Manual) Lymphocytes # (Manual) 0.4 L PT 32.9 H INR 3.16 H APTT 51.1 H D-Dimer Heparin Anti-Xa Level ABG pH 7.508 H POC ABG pCO2 22.8 L POC ABG pO2 66.8 L ABG Oxyhemoglobin 92.7 L ABG Sodium 127.4 L ABG Potassium 4.7 H ABG Glucose 121 H Carboxyhemoglobin 0.4 L Sodium Chloride Carbon Dioxide BUN Creatinine Glucose POC Glucose Calcium Phosphorus Ferritin Total Bilirubin AST ALT Alkaline Phosphatase Lactate Dehydrogenase Total Creatine Kinase Troponin T C-Reactive Protein NT-Pro-B Natriuret Pep Total Protein Albumin Cholesterol LDL Cholesterol Direct HDL Cholesterol PTH Intact Arterial Blood Glucose 121 H Urine WBC (Auto) Urine Creatinine Heparin-induced Plt Ab Lymph Enumerat CD4/CD8 Absolute CD3 Count Absolute CD4 Count % CD8 Cells Absolute CD8 Count Absolute CD19 Count Coronavirus (PCR) HIV-1 RNA PCR copies/ml HIV-1 RNA (PCR) log 09/17/20 09/17/20 09/17/20 10:47 10:47 13:54 WBC RBC Hgb Hct MCV MCH MCHC Plt Count Lymph % (Auto) [place] % (Auto) Lymph # (Auto) [place] # (Auto) Seg Neutrophils % Seg Neuts % (Manual) Lymphocytes % (Manual) Monocytes % (Manual) Nucleated RBC % Seg Neutrophils # Seg Neutrophils # Man Abs Lymphs (Manual) Lymphocytes # (Manual) PT INR APTT D-Dimer Heparin Anti-Xa Level ABG pH POC ABG pCO2 POC ABG pO2 ABG Oxyhemoglobin ABG Sodium ABG Potassium ABG Glucose Carboxyhemoglobin Sodium 125 L Chloride 95.3 L Carbon Dioxide 17 L BUN 64 H Creatinine 4.6 H D Glucose 104 H POC Glucose Calcium Phosphorus Ferritin Total Bilirubin AST 69 H ALT Alkaline Phosphatase Lactate Dehydrogenase Total Creatine Kinase Troponin T 0.061 H D 0.058 H C-Reactive Protein NT-Pro-B Natriuret Pep 76538 H Total Protein Albumin 1.9 L Cholesterol 48 L LDL Cholesterol Direct 4 L HDL Cholesterol 9 L PTH Intact Arterial Blood Glucose Urine WBC (Auto) Urine Creatinine Heparin-induced Plt Ab Lymph Enumerat CD4/CD8 Absolute CD3 Count Absolute CD4 Count % CD8 Cells Absolute CD8 Count Absolute CD19 Count Coronavirus (PCR) HIV-1 RNA PCR copies/ml HIV-1 RNA (PCR) log 09/17/20 09/17/20 09/17/20 16:36 17:35 17:35 WBC RBC 3.25 L Hgb 10.7 L Hct 31.1 L MCV 96 H MCH 33 H MCHC Plt Count Lymph % (Auto) [place] % (Auto) Lymph # (Auto) [place] # (Auto) Seg Neutrophils % Seg Neuts % (Manual) Lymphocytes % (Manual) Monocytes % (Manual) Nucleated RBC % Seg Neutrophils # Seg Neutrophils # Man Abs Lymphs (Manual) Lymphocytes # (Manual) PT 31.9 H INR 3.04 H APTT 50.9 H D-Dimer Heparin Anti-Xa Level ABG pH POC ABG pCO2 POC ABG pO2 ABG Oxyhemoglobin ABG Sodium ABG Potassium ABG Glucose Carboxyhemoglobin Sodium Chloride Carbon Dioxide BUN Creatinine Glucose POC Glucose Calcium Phosphorus Ferritin Total Bilirubin AST ALT Alkaline Phosphatase Lactate Dehydrogenase Total Creatine Kinase Troponin T 0.057 H C-Reactive Protein NT-Pro-B Natriuret Pep Total Protein Albumin Cholesterol LDL Cholesterol Direct HDL Cholesterol PTH Intact Arterial Blood Glucose Urine WBC (Auto) Urine Creatinine Heparin-induced Plt Ab Lymph Enumerat CD4/CD8 Absolute CD3 Count Absolute CD4 Count % CD8 Cells Absolute CD8 Count Absolute CD19 Count Coronavirus (PCR) HIV-1 RNA PCR copies/ml HIV-1 RNA (PCR) log 09/17/20 09/18/20 09/18/20 17:35 03:19 03:19 WBC RBC 3.32 L Hgb 10.9 L Hct 32.0 L MCV 96 H MCH 33 H MCHC Plt Count 138 L Lymph % (Auto) [place] % (Auto) Lymph # (Auto) [place] # (Auto) Seg Neutrophils % Seg Neuts % (Manual) 95.0 H Lymphocytes % (Manual) 3.0 L Monocytes % (Manual) Nucleated RBC % Seg Neutrophils # Seg Neutrophils # Man 8.1 H Abs Lymphs (Manual) Lymphocytes # (Manual) 0.3 L PT INR APTT D-Dimer Heparin Anti-Xa Level ABG pH POC ABG pCO2 POC ABG pO2 ABG Oxyhemoglobin ABG Sodium ABG Potassium ABG Glucose Carboxyhemoglobin Sodium Chloride Carbon Dioxide 16 L BUN 70 H Creatinine 4.6 H 4.7 H Glucose 104 H POC Glucose Calcium 8.2 L Phosphorus Ferritin Total Bilirubin 1.60 H AST 128 H ALT 67 H Alkaline Phosphatase Lactate Dehydrogenase Total Creatine Kinase Troponin T C-Reactive Protein NT-Pro-B Natriuret Pep Total Protein 5.2 L D Albumin 2.5 L Cholesterol LDL Cholesterol Direct HDL Cholesterol PTH Intact Arterial Blood Glucose Urine WBC (Auto) Urine Creatinine Heparin-induced Plt Ab Lymph Enumerat CD4/CD8 Absolute CD3 Count Absolute CD4 Count % CD8 Cells Absolute CD8 Count Absolute CD19 Count Coronavirus (PCR) HIV-1 RNA PCR copies/ml HIV-1 RNA (PCR) log 09/18/20 09/18/20 09/18/20 09:39 12:00 12:00 WBC RBC Hgb Hct MCV MCH MCHC Plt Count Lymph % (Auto) [place] % (Auto) Lymph # (Auto) [place] # (Auto) Seg Neutrophils % Seg Neuts % (Manual) Lymphocytes % (Manual) Monocytes % (Manual) Nucleated RBC % Seg Neutrophils # Seg Neutrophils # Man Abs Lymphs (Manual) Lymphocytes # (Manual) PT INR APTT D-Dimer Heparin Anti-Xa Level ABG pH POC ABG pCO2 POC ABG pO2 ABG Oxyhemoglobin ABG Sodium ABG Potassium ABG Glucose Carboxyhemoglobin Sodium Chloride Carbon Dioxide BUN Creatinine Glucose POC Glucose Calcium Phosphorus Ferritin Total Bilirubin AST ALT Alkaline Phosphatase Lactate Dehydrogenase Total Creatine Kinase Troponin T C-Reactive Protein NT-Pro-B Natriuret Pep Total Protein Albumin Cholesterol LDL Cholesterol Direct HDL Cholesterol PTH Intact Arterial Blood Glucose Urine WBC (Auto) 71.0 H Urine Creatinine 61.0 H Heparin-induced Plt Ab Lymph Enumerat CD4/CD8 Absolute CD3 Count Absolute CD4 Count % CD8 Cells Absolute CD8 Count Absolute CD19 Count Coronavirus (PCR) Positive A HIV-1 RNA PCR copies/ml HIV-1 RNA (PCR) log 09/18/20 09/18/20 09/18/20 15:07 15:07 18:33 WBC RBC Hgb 10.7 L Hct 31.3 L MCV MCH MCHC Plt Count Lymph % (Auto) [place] % (Auto) Lymph # (Auto) [place] # (Auto) Seg Neutrophils % Seg Neuts % (Manual) Lymphocytes % (Manual) Monocytes % (Manual) Nucleated RBC % Seg Neutrophils # Seg Neutrophils # Man Abs Lymphs (Manual) Lymphocytes # (Manual) PT 20.3 H INR 1.73 H APTT 40.8 H D-Dimer Heparin Anti-Xa Level 1.09 H ABG pH POC ABG pCO2 POC ABG pO2 ABG Oxyhemoglobin ABG Sodium ABG Potassium ABG Glucose Carboxyhemoglobin Sodium Chloride Carbon Dioxide BUN Creatinine Glucose POC Glucose Calcium Phosphorus Ferritin Total Bilirubin AST ALT Alkaline Phosphatase Lactate Dehydrogenase Total Creatine Kinase Troponin T C-Reactive Protein NT-Pro-B Natriuret Pep Total Protein Albumin Cholesterol LDL Cholesterol Direct HDL Cholesterol PTH Intact Arterial Blood Glucose Urine WBC (Auto) Urine Creatinine Heparin-induced Plt Ab Lymph Enumerat CD4/CD8 Absolute CD3 Count Absolute CD4 Count % CD8 Cells Absolute CD8 Count Absolute CD19 Count Coronavirus (PCR) HIV-1 RNA PCR copies/ml HIV-1 RNA (PCR) log 05/02/21 05/02/21 05/02/21 03:30 03:30 03:30 WBC RBC 3.29 L Hgb 10.9 L Hct 30.9 L MCV MCH 33 H MCHC 35 H Plt Count Lymph % (Auto) [place] % (Auto) Lymph # (Auto) [place] # (Auto) Seg Neutrophils % Seg Neuts % (Manual) Lymphocytes % (Manual) Monocytes % (Manual) Nucleated RBC % Seg Neutrophils # Seg Neutrophils # Man Abs Lymphs (Manual) Lymphocytes # (Manual) PT INR APTT D-Dimer Heparin Anti-Xa Level ABG pH POC ABG pCO2 POC ABG pO2 ABG Oxyhemoglobin ABG Sodium ABG Potassium ABG Glucose Carboxyhemoglobin Sodium 133 L Chloride Carbon Dioxide 17 L BUN 94 H Creatinine 5.0 H Glucose 120 H POC Glucose Calcium Phosphorus 6.30 H Ferritin Total Bilirubin 2.40 H AST 163 H ALT 109 H Alkaline Phosphatase 160 H Lactate Dehydrogenase Total Creatine Kinase 20 L Troponin T C-Reactive Protein NT-Pro-B Natriuret Pep Total Protein 6.2 L Albumin 2.0 L Cholesterol LDL Cholesterol Direct HDL Cholesterol PTH Intact 161.4 H Arterial Blood Glucose Urine WBC (Auto) Urine Creatinine Heparin-induced Plt Ab Lymph Enumerat CD4/CD8 Absolute CD3 Count Absolute CD4 Count % CD8 Cells Absolute CD8 Count Absolute CD19 Count Coronavirus (PCR) HIV-1 RNA PCR copies/ml HIV-1 RNA (PCR) log 09/19/20 09/19/20 09/19/20 06:35 13:35 13:35 WBC RBC Hgb Hct MCV MCH MCHC Plt Count Lymph % (Auto) [place] % (Auto) Lymph # (Auto) [place] # (Auto) Seg Neutrophils % Seg Neuts % (Manual) Lymphocytes % (Manual) Monocytes % (Manual) Nucleated RBC % Seg Neutrophils # Seg Neutrophils # Man Abs Lymphs (Manual) 223 L Lymphocytes # (Manual) PT INR APTT D-Dimer Heparin Anti-Xa Level ABG pH POC ABG pCO2 POC ABG pO2 ABG Oxyhemoglobin ABG Sodium ABG Potassium ABG Glucose Carboxyhemoglobin Sodium Chloride Carbon Dioxide BUN Creatinine Glucose POC Glucose 123 H Calcium Phosphorus Ferritin Total Bilirubin AST ALT Alkaline Phosphatase Lactate Dehydrogenase Total Creatine Kinase Troponin T C-Reactive Protein NT-Pro-B Natriuret Pep Total Protein Albumin Cholesterol LDL Cholesterol Direct HDL Cholesterol PTH Intact Arterial Blood Glucose Urine WBC (Auto) Urine Creatinine Heparin-induced Plt Ab Lymph Enumerat CD4/CD8 0.70 L Absolute CD3 Count 175 L Absolute CD4 Count 70 L % CD8 Cells 45 H Absolute CD8 Count 101 L Absolute CD19 Count 26 L Coronavirus (PCR) HIV-1 RNA PCR copies/ml 67 H HIV-1 RNA (PCR) log 1.83 H 09/19/20 09/20/20 09/20/20 23:37 04:00 04:00 WBC RBC 3.43 L Hgb 11.1 L Hct 32.2 L MCV MCH MCHC Plt Count 131 L Lymph % (Auto) [place] % (Auto) Lymph # (Auto) [place] # (Auto) Seg Neutrophils % Seg Neuts % (Manual) 88.0 H Lymphocytes % (Manual) 3.0 L Monocytes % (Manual) 9.0 H Nucleated RBC % Seg Neutrophils # Seg Neutrophils # Man 8.2 H Abs Lymphs (Manual) Lymphocytes # (Manual) 0.3 L PT INR APTT D-Dimer Heparin Anti-Xa Level 0.10 L ABG pH POC ABG pCO2 POC ABG pO2 ABG Oxyhemoglobin ABG Sodium ABG Potassium ABG Glucose Carboxyhemoglobin Sodium Chloride Carbon Dioxide BUN Creatinine Glucose POC Glucose 135 H Calcium Phosphorus Ferritin Total Bilirubin AST ALT Alkaline Phosphatase Lactate Dehydrogenase Total Creatine Kinase Troponin T C-Reactive Protein NT-Pro-B Natriuret Pep Total Protein Albumin Cholesterol LDL Cholesterol Direct HDL Cholesterol PTH Intact Arterial Blood Glucose Urine WBC (Auto) Urine Creatinine Heparin-induced Plt Ab Lymph Enumerat CD4/CD8 Absolute CD3 Count Absolute CD4 Count % CD8 Cells Absolute CD8 Count Absolute CD19 Count Coronavirus (PCR) HIV-1 RNA PCR copies/ml HIV-1 RNA (PCR) log 09/20/20 09/20/20 09/20/20 04:00 05:37 11:20 WBC RBC Hgb Hct MCV MCH MCHC Plt Count Lymph % (Auto) [place] % (Auto) Lymph # (Auto) [place] # (Auto) Seg Neutrophils % Seg Neuts % (Manual) Lymphocytes % (Manual) Monocytes % (Manual) Nucleated RBC % Seg Neutrophils # Seg Neutrophils # Man Abs Lymphs (Manual) Lymphocytes # (Manual) PT INR APTT D-Dimer Heparin Anti-Xa Level ABG pH POC ABG pCO2 POC ABG pO2 ABG Oxyhemoglobin ABG Sodium ABG Potassium ABG Glucose Carboxyhemoglobin Sodium Chloride Carbon Dioxide 16 L BUN 119 H Creatinine 6.2 H Glucose 136 H POC Glucose 137 H 108 H Calcium Phosphorus Ferritin Total Bilirubin AST ALT Alkaline Phosphatase Lactate Dehydrogenase Total Creatine Kinase Troponin T C-Reactive Protein NT-Pro-B Natriuret Pep Total Protein Albumin Cholesterol LDL Cholesterol Direct HDL Cholesterol PTH Intact Arterial Blood Glucose Urine WBC (Auto) Urine Creatinine Heparin-induced Plt Ab Lymph Enumerat CD4/CD8 Absolute CD3 Count Absolute CD4 Count % CD8 Cells Absolute CD8 Count Absolute CD19 Count Coronavirus (PCR) HIV-1 RNA PCR copies/ml HIV-1 RNA (PCR) log 09/20/20 09/20/20 09/20/20 17:10 17:10 17:10 WBC RBC Hgb Hct MCV MCH MCHC Plt Count Lymph % (Auto) [place] % (Auto) Lymph # (Auto) [place] # (Auto) Seg Neutrophils % Seg Neuts % (Manual) Lymphocytes % (Manual) Monocytes % (Manual) Nucleated RBC % Seg Neutrophils # Seg Neutrophils # Man Abs Lymphs (Manual) Lymphocytes # (Manual) PT INR APTT D-Dimer 4271.58 H Heparin Anti-Xa Level ABG pH POC ABG pCO2 POC ABG pO2 ABG Oxyhemoglobin ABG Sodium ABG Potassium ABG Glucose Carboxyhemoglobin Sodium Chloride Carbon Dioxide BUN Creatinine 6.0 H Glucose POC Glucose Calcium Phosphorus Ferritin 696.6 H Total Bilirubin AST ALT Alkaline Phosphatase Lactate Dehydrogenase Total Creatine Kinase Troponin T C-Reactive Protein NT-Pro-B Natriuret Pep Total Protein Albumin Cholesterol LDL Cholesterol Direct HDL Cholesterol PTH Intact Arterial Blood Glucose Urine WBC (Auto) Urine Creatinine Heparin-induced Plt Ab Lymph Enumerat CD4/CD8 Absolute CD3 Count Absolute CD4 Count % CD8 Cells Absolute CD8 Count Absolute CD19 Count Coronavirus (PCR) HIV-1 RNA PCR copies/ml HIV-1 RNA (PCR) log 09/20/20 09/20/20 09/20/20 17:10 18:21 23:14 WBC RBC Hgb Hct MCV MCH MCHC Plt Count Lymph % (Auto) [place] % (Auto) Lymph # (Auto) [place] # (Auto) Seg Neutrophils % Seg Neuts % (Manual) Lymphocytes % (Manual) Monocytes % (Manual) Nucleated RBC % Seg Neutrophils # Seg Neutrophils # Man Abs Lymphs (Manual) Lymphocytes # (Manual) PT INR APTT D-Dimer Heparin Anti-Xa Level ABG pH POC ABG pCO2 POC ABG pO2 ABG Oxyhemoglobin ABG Sodium ABG Potassium ABG Glucose Carboxyhemoglobin Sodium Chloride Carbon Dioxide BUN Creatinine Glucose POC Glucose 129 H 170 H Calcium Phosphorus Ferritin Total Bilirubin AST ALT Alkaline Phosphatase Lactate Dehydrogenase 209 H Total Creatine Kinase Troponin T C-Reactive Protein 10.60 H NT-Pro-B Natriuret Pep Total Protein Albumin Cholesterol LDL Cholesterol Direct HDL Cholesterol PTH Intact Arterial Blood Glucose Urine WBC (Auto) Urine Creatinine Heparin-induced Plt Ab Lymph Enumerat CD4/CD8 Absolute CD3 Count Absolute CD4 Count % CD8 Cells Absolute CD8 Count Absolute CD19 Count Coronavirus (PCR) HIV-1 RNA PCR copies/ml HIV-1 RNA (PCR) log 09/21/20 09/21/20 09/21/20 05:35 17:09 23:18 WBC RBC Hgb Hct MCV MCH MCHC Plt Count Lymph % (Auto) [place] % (Auto) Lymph # (Auto) [place] # (Auto) Seg Neutrophils % Seg Neuts % (Manual) Lymphocytes % (Manual) Monocytes % (Manual) Nucleated RBC % Seg Neutrophils # Seg Neutrophils # Man Abs Lymphs (Manual) Lymphocytes # (Manual) PT INR APTT D-Dimer Heparin Anti-Xa Level ABG pH POC ABG pCO2 POC ABG pO2 ABG Oxyhemoglobin ABG Sodium ABG Potassium ABG Glucose Carboxyhemoglobin Sodium Chloride Carbon Dioxide BUN Creatinine Glucose POC Glucose 170 H 140 H 139 H Calcium Phosphorus Ferritin Total Bilirubin AST ALT Alkaline Phosphatase Lactate Dehydrogenase Total Creatine Kinase Troponin T C-Reactive Protein NT-Pro-B Natriuret Pep Total Protein Albumin Cholesterol LDL Cholesterol Direct HDL Cholesterol PTH Intact Arterial Blood Glucose Urine WBC (Auto) Urine Creatinine Heparin-induced Plt Ab Lymph Enumerat CD4/CD8 Absolute CD3 Count Absolute CD4 Count % CD8 Cells Absolute CD8 Count Absolute CD19 Count Coronavirus (PCR) HIV-1 RNA PCR copies/ml HIV-1 RNA (PCR) log 09/21/20 09/21/20 09/21/20 Unknown Unknown Unknown WBC RBC 3.56 L Hgb 11.3 L Hct 33.2 L MCV MCH MCHC Plt Count 125 L Lymph % (Auto) [place] % (Auto) Lymph # (Auto) [place] # (Auto) Seg Neutrophils % Seg Neuts % (Manual) 90.0 H Lymphocytes % (Manual) 8.0 L Monocytes % (Manual) Nucleated RBC % 1.0 H Seg Neutrophils # Seg Neutrophils # Man 9.4 H Abs Lymphs (Manual) Lymphocytes # (Manual) 0.8 L PT 16.8 H INR 1.36 H APTT D-Dimer Heparin Anti-Xa Level ABG pH POC ABG pCO2 POC ABG pO2 ABG Oxyhemoglobin ABG Sodium ABG Potassium ABG Glucose Carboxyhemoglobin Sodium Chloride Carbon Dioxide BUN 83 H Creatinine 4.3 H Glucose 163 H POC Glucose Calcium Phosphorus Ferritin Total Bilirubin 2.40 H AST ALT 57 H Alkaline Phosphatase < 5 L Lactate Dehydrogenase Total Creatine Kinase Troponin T C-Reactive Protein NT-Pro-B Natriuret Pep Total Protein Albumin 1.9 L Cholesterol LDL Cholesterol Direct HDL Cholesterol PTH Intact Arterial Blood Glucose Urine WBC (Auto) Urine Creatinine Heparin-induced Plt Ab Lymph Enumerat CD4/CD8 Absolute CD3 Count Absolute CD4 Count % CD8 Cells Absolute CD8 Count Absolute CD19 Count Coronavirus (PCR) HIV-1 RNA PCR copies/ml HIV-1 RNA (PCR) log 09/22/20 09/22/20 09/22/20 05:38 05:38 05:38 WBC 15.8 H RBC 3.36 L Hgb 10.8 L Hct 31.0 L MCV MCH MCHC 35 H Plt Count 68 L Lymph % (Auto) 3.1 L [place] % (Auto) 10.7 H Lymph # (Auto) 0.5 L [place] # (Auto) 1.7 H Seg Neutrophils % 85.9 H Seg Neuts % (Manual) Lymphocytes % (Manual) Monocytes % (Manual) Nucleated RBC % Seg Neutrophils # 13.6 H Seg Neutrophils # Man Abs Lymphs (Manual) Lymphocytes # (Manual) PT INR APTT D-Dimer 3281.49 H Heparin Anti-Xa Level ABG pH POC ABG pCO2 POC ABG pO2 ABG Oxyhemoglobin ABG Sodium ABG Potassium ABG Glucose Carboxyhemoglobin Sodium Chloride Carbon Dioxide BUN 61 H Creatinine 3.1 H Glucose 129 H POC Glucose Calcium Phosphorus Ferritin Total Bilirubin AST ALT Alkaline Phosphatase Lactate Dehydrogenase 277 H Total Creatine Kinase Troponin T C-Reactive Protein 6.60 H NT-Pro-B Natriuret Pep Total Protein Albumin Cholesterol LDL Cholesterol Direct HDL Cholesterol PTH Intact Arterial Blood Glucose Urine WBC (Auto) Urine Creatinine Heparin-induced Plt Ab Lymph Enumerat CD4/CD8 Absolute CD3 Count Absolute CD4 Count % CD8 Cells Absolute CD8 Count Absolute CD19 Count Coronavirus (PCR) HIV-1 RNA PCR copies/ml HIV-1 RNA (PCR) log 09/22/20 09/22/20 09/22/20 05:38 05:44 11:26 WBC RBC Hgb Hct MCV MCH MCHC Plt Count Lymph % (Auto) [place] % (Auto) Lymph # (Auto) [place] # (Auto) Seg Neutrophils % Seg Neuts % (Manual) Lymphocytes % (Manual) Monocytes % (Manual) Nucleated RBC % Seg Neutrophils # Seg Neutrophils # Man Abs Lymphs (Manual) Lymphocytes # (Manual) PT INR APTT D-Dimer Heparin Anti-Xa Level ABG pH POC ABG pCO2 POC ABG pO2 ABG Oxyhemoglobin ABG Sodium ABG Potassium ABG Glucose Carboxyhemoglobin Sodium Chloride Carbon Dioxide BUN Creatinine Glucose POC Glucose 112 H 131 H Calcium Phosphorus Ferritin 927.8 H Total Bilirubin AST ALT Alkaline Phosphatase Lactate Dehydrogenase Total Creatine Kinase Troponin T C-Reactive Protein NT-Pro-B Natriuret Pep Total Protein Albumin Cholesterol LDL Cholesterol Direct HDL Cholesterol PTH Intact Arterial Blood Glucose Urine WBC (Auto) Urine Creatinine Heparin-induced Plt Ab Lymph Enumerat CD4/CD8 Absolute CD3 Count Absolute CD4 Count % CD8 Cells Absolute CD8 Count Absolute CD19 Count Coronavirus (PCR) HIV-1 RNA PCR copies/ml HIV-1 RNA (PCR) log 09/22/20 09/22/20 09/22/20 15:12 15:12 15:12 WBC RBC Hgb Hct MCV MCH MCHC Plt Count Lymph % (Auto) [place] % (Auto) Lymph # (Auto) [place] # (Auto) Seg Neutrophils % Seg Neuts % (Manual) Lymphocytes % (Manual) Monocytes % (Manual) Nucleated RBC % Seg Neutrophils # Seg Neutrophils # Man Abs Lymphs (Manual) Lymphocytes # (Manual) PT 17.3 H INR 1.42 H APTT D-Dimer Heparin Anti-Xa Level ABG pH POC ABG pCO2 POC ABG pO2 ABG Oxyhemoglobin ABG Sodium ABG Potassium ABG Glucose Carboxyhemoglobin Sodium Chloride Carbon Dioxide BUN Creatinine 3.0 H Glucose POC Glucose Calcium Phosphorus Ferritin Total Bilirubin AST ALT Alkaline Phosphatase Lactate Dehydrogenase Total Creatine Kinase Troponin T C-Reactive Protein NT-Pro-B Natriuret Pep Total Protein Albumin Cholesterol LDL Cholesterol Direct HDL Cholesterol PTH Intact Arterial Blood Glucose Urine WBC (Auto) Urine Creatinine Heparin-induced Plt Ab Weak positive H Lymph Enumerat CD4/CD8 Absolute CD3 Count Absolute CD4 Count % CD8 Cells Absolute CD8 Count Absolute CD19 Count Coronavirus (PCR) HIV-1 RNA PCR copies/ml HIV-1 RNA (PCR) log 09/22/20 09/22/20 09/23/20 16:53 23:55 04:36 WBC 14.2 H RBC 3.05 L Hgb 9.8 L Hct 28.4 L MCV MCH MCHC Plt Count 39 L Lymph % (Auto) [place] % (Auto) Lymph # (Auto) [place] # (Auto) Seg Neutrophils % Seg Neuts % (Manual) 91.0 H Lymphocytes % (Manual) 2.0 L Monocytes % (Manual) Nucleated RBC % Seg Neutrophils # Seg Neutrophils # Man 12.9 H Abs Lymphs (Manual) Lymphocytes # (Manual) 0.3 L PT INR APTT D-Dimer Heparin Anti-Xa Level ABG pH POC ABG pCO2 POC ABG pO2 ABG Oxyhemoglobin ABG Sodium ABG Potassium ABG Glucose Carboxyhemoglobin Sodium Chloride Carbon Dioxide BUN Creatinine Glucose POC Glucose 138 H 171 H Calcium Phosphorus Ferritin Total Bilirubin AST ALT Alkaline Phosphatase Lactate Dehydrogenase Total Creatine Kinase Troponin T C-Reactive Protein NT-Pro-B Natriuret Pep Total Protein Albumin Cholesterol LDL Cholesterol Direct HDL Cholesterol PTH Intact Arterial Blood Glucose Urine WBC (Auto) Urine Creatinine Heparin-induced Plt Ab Lymph Enumerat CD4/CD8 Absolute CD3 Count Absolute CD4 Count % CD8 Cells Absolute CD8 Count Absolute CD19 Count Coronavirus (PCR) HIV-1 RNA PCR copies/ml HIV-1 RNA (PCR) log 09/23/20 09/23/20 09/23/20 04:36 05:41 11:38 WBC RBC Hgb Hct MCV MCH MCHC Plt Count Lymph % (Auto) [place] % (Auto) Lymph # (Auto) [place] # (Auto) Seg Neutrophils % Seg Neuts % (Manual) Lymphocytes % (Manual) Monocytes % (Manual) Nucleated RBC % Seg Neutrophils # Seg Neutrophils # Man Abs Lymphs (Manual) Lymphocytes # (Manual) PT INR APTT D-Dimer Heparin Anti-Xa Level ABG pH POC ABG pCO2 POC ABG pO2 ABG Oxyhemoglobin ABG Sodium ABG Potassium ABG Glucose Carboxyhemoglobin Sodium Chloride Carbon Dioxide BUN 76 H Creatinine 3.1 H Glucose 157 H POC Glucose 136 H 141 H Calcium Phosphorus Ferritin Total Bilirubin AST ALT Alkaline Phosphatase Lactate Dehydrogenase Total Creatine Kinase Troponin T C-Reactive Protein NT-Pro-B Natriuret Pep Total Protein Albumin Cholesterol LDL Cholesterol Direct HDL Cholesterol PTH Intact Arterial Blood Glucose Urine WBC (Auto) Urine Creatinine Heparin-induced Plt Ab Lymph Enumerat CD4/CD8 Absolute CD3 Count Absolute CD4 Count % CD8 Cells Absolute CD8 Count Absolute CD19 Count Coronavirus (PCR) HIV-1 RNA PCR copies/ml HIV-1 RNA (PCR) log 09/23/20 09/23/20 09/24/20 17:09 23:51 05:00 WBC 24.2 H RBC 3.23 L Hgb 10.0 L Hct 29.7 L MCV MCH MCHC Plt Count 74 L Lymph % (Auto) [place] % (Auto) Lymph # (Auto) [place] # (Auto) Seg Neutrophils % Seg Neuts % (Manual) Lymphocytes % (Manual) Monocytes % (Manual) Nucleated RBC % Seg Neutrophils # Seg Neutrophils # Man Abs Lymphs (Manual) Lymphocytes # (Manual) PT INR APTT D-Dimer Heparin Anti-Xa Level ABG pH POC ABG pCO2 POC ABG pO2 ABG Oxyhemoglobin ABG Sodium ABG Potassium ABG Glucose Carboxyhemoglobin Sodium Chloride Carbon Dioxide BUN Creatinine Glucose POC Glucose 128 H 128 H Calcium Phosphorus Ferritin Total Bilirubin AST ALT Alkaline Phosphatase Lactate Dehydrogenase Total Creatine Kinase Troponin T C-Reactive Protein NT-Pro-B Natriuret Pep Total Protein Albumin Cholesterol LDL Cholesterol Direct HDL Cholesterol PTH Intact Arterial Blood Glucose Urine WBC (Auto) Urine Creatinine Heparin-induced Plt Ab Lymph Enumerat CD4/CD8 Absolute CD3 Count Absolute CD4 Count % CD8 Cells Absolute CD8 Count Absolute CD19 Count Coronavirus (PCR) HIV-1 RNA PCR copies/ml HIV-1 RNA (PCR) log 09/24/20 09/24/20 09/24/20 05:00 05:00 05:00 WBC RBC Hgb Hct MCV MCH MCHC Plt Count Lymph % (Auto) [place] % (Auto) Lymph # (Auto) [place] # (Auto) Seg Neutrophils % Seg Neuts % (Manual) Lymphocytes % (Manual) Monocytes % (Manual) Nucleated RBC % Seg Neutrophils # Seg Neutrophils # Man Abs Lymphs (Manual) Lymphocytes # (Manual) PT INR APTT D-Dimer 1772.86 H Heparin Anti-Xa Level ABG pH POC ABG pCO2 POC ABG pO2 ABG Oxyhemoglobin ABG Sodium ABG Potassium ABG Glucose Carboxyhemoglobin Sodium Chloride 107.1 H Carbon Dioxide BUN 90 H Creatinine 3.1 H Glucose 118 H POC Glucose Calcium Phosphorus Ferritin 1190.0 H Total Bilirubin AST ALT Alkaline Phosphatase Lactate Dehydrogenase 276 H Total Creatine Kinase Troponin T C-Reactive Protein 4.20 H NT-Pro-B Natriuret Pep Total Protein Albumin Cholesterol LDL Cholesterol Direct HDL Cholesterol PTH Intact Arterial Blood Glucose Urine WBC (Auto) Urine Creatinine Heparin-induced Plt Ab Lymph Enumerat CD4/CD8 Absolute CD3 Count Absolute CD4 Count % CD8 Cells Absolute CD8 Count Absolute CD19 Count Coronavirus (PCR) HIV-1 RNA PCR copies/ml HIV-1 RNA (PCR) log 09/24/20 09/24/20 09/24/20 05:12 11:25 12:09 WBC RBC Hgb Hct MCV MCH MCHC Plt Count Lymph % (Auto) [place] % (Auto) Lymph # (Auto) [place] # (Auto) Seg Neutrophils % Seg Neuts % (Manual) Lymphocytes % (Manual) Monocytes % (Manual) Nucleated RBC % Seg Neutrophils # Seg Neutrophils # Man Abs Lymphs (Manual) Lymphocytes # (Manual) PT INR APTT D-Dimer Heparin Anti-Xa Level ABG pH POC ABG pCO2 POC ABG pO2 ABG Oxyhemoglobin ABG Sodium ABG Potassium ABG Glucose Carboxyhemoglobin Sodium Chloride Carbon Dioxide BUN Creatinine 3.1 H Glucose POC Glucose 114 H 110 H Calcium Phosphorus Ferritin Total Bilirubin AST ALT Alkaline Phosphatase Lactate Dehydrogenase Total Creatine Kinase Troponin T C-Reactive Protein NT-Pro-B Natriuret Pep Total Protein Albumin Cholesterol LDL Cholesterol Direct HDL Cholesterol PTH Intact Arterial Blood Glucose Urine WBC (Auto) Urine Creatinine Heparin-induced Plt Ab Lymph Enumerat CD4/CD8 Absolute CD3 Count Absolute CD4 Count % CD8 Cells Absolute CD8 Count Absolute CD19 Count Coronavirus (PCR) HIV-1 RNA PCR copies/ml HIV-1 RNA (PCR) log 09/24/20 09/24/20 09/24/20 12:13 12:13 17:41 WBC 20.8 H RBC 3.04 L Hgb 9.5 L Hct 28.0 L MCV MCH MCHC Plt Count 78 L Lymph % (Auto) [place] % (Auto) Lymph # (Auto) [place] # (Auto) Seg Neutrophils % Seg Neuts % (Manual) Lymphocytes % (Manual) Monocytes % (Manual) Nucleated RBC % Seg Neutrophils # Seg Neutrophils # Man Abs Lymphs (Manual) Lymphocytes # (Manual) PT 15.7 H INR 1.27 H APTT D-Dimer Heparin Anti-Xa Level ABG pH POC ABG pCO2 POC ABG pO2 ABG Oxyhemoglobin ABG Sodium ABG Potassium ABG Glucose Carboxyhemoglobin Sodium Chloride Carbon Dioxide BUN Creatinine Glucose POC Glucose 133 H Calcium Phosphorus Ferritin Total Bilirubin AST ALT Alkaline Phosphatase Lactate Dehydrogenase Total Creatine Kinase Troponin T C-Reactive Protein NT-Pro-B Natriuret Pep Total Protein Albumin Cholesterol LDL Cholesterol Direct HDL Cholesterol PTH Intact Arterial Blood Glucose Urine WBC (Auto) Urine Creatinine Heparin-induced Plt Ab Lymph Enumerat CD4/CD8 Absolute CD3 Count Absolute CD4 Count % CD8 Cells Absolute CD8 Count Absolute CD19 Count Coronavirus (PCR) HIV-1 RNA PCR copies/ml HIV-1 RNA (PCR) log 09/24/20 09/25/20 09/25/20 23:34 06:40 06:40 WBC RBC Hgb Hct MCV MCH MCHC Plt Count Lymph % (Auto) [place] % (Auto) Lymph # (Auto) [place] # (Auto) Seg Neutrophils % Seg Neuts % (Manual) Lymphocytes % (Manual) Monocytes % (Manual) Nucleated RBC % Seg Neutrophils # Seg Neutrophils # Man Abs Lymphs (Manual) Lymphocytes # (Manual) PT INR APTT D-Dimer Heparin Anti-Xa Level ABG pH POC ABG pCO2 POC ABG pO2 ABG Oxyhemoglobin ABG Sodium ABG Potassium ABG Glucose Carboxyhemoglobin Sodium Chloride 109.0 H Carbon Dioxide BUN 98 H Creatinine 3.0 H 3.0 H Glucose 111 H POC Glucose 113 H Calcium Phosphorus Ferritin Total Bilirubin AST ALT Alkaline Phosphatase Lactate Dehydrogenase Total Creatine Kinase Troponin T C-Reactive Protein NT-Pro-B Natriuret Pep Total Protein Albumin Cholesterol LDL Cholesterol Direct HDL Cholesterol PTH Intact Arterial Blood Glucose Urine WBC (Auto) Urine Creatinine Heparin-induced Plt Ab Lymph Enumerat CD4/CD8 Absolute CD3 Count Absolute CD4 Count % CD8 Cells Absolute CD8 Count Absolute CD19 Count Coronavirus (PCR) HIV-1 RNA PCR copies/ml HIV-1 RNA (PCR) log 09/25/20 09/25/20 09/25/20 10:45 12:45 18:03 WBC 20.7 H RBC 3.33 L Hgb 10.2 L Hct 31.3 L MCV MCH MCHC Plt Count 139 L Lymph % (Auto) [place] % (Auto) Lymph # (Auto) [place] # (Auto) Seg Neutrophils % Seg Neuts % (Manual) Lymphocytes % (Manual) Monocytes % (Manual) Nucleated RBC % Seg Neutrophils # Seg Neutrophils # Man Abs Lymphs (Manual) Lymphocytes # (Manual) PT INR APTT D-Dimer Heparin Anti-Xa Level ABG pH POC ABG pCO2 POC ABG pO2 ABG Oxyhemoglobin ABG Sodium ABG Potassium ABG Glucose Carboxyhemoglobin Sodium Chloride Carbon Dioxide BUN Creatinine Glucose POC Glucose 108 H 114 H Calcium Phosphorus Ferritin Total Bilirubin AST ALT Alkaline Phosphatase Lactate Dehydrogenase Total Creatine Kinase Troponin T C-Reactive Protein NT-Pro-B Natriuret Pep Total Protein Albumin Cholesterol LDL Cholesterol Direct HDL Cholesterol PTH Intact Arterial Blood Glucose Urine WBC (Auto) Urine Creatinine Heparin-induced Plt Ab Lymph Enumerat CD4/CD8 Absolute CD3 Count Absolute CD4 Count % CD8 Cells Absolute CD8 Count Absolute CD19 Count Coronavirus (PCR) HIV-1 RNA PCR copies/ml HIV-1 RNA (PCR) log 09/25/20 09/26/20 09/26/20 23:29 05:00 07:06 WBC 17.0 H RBC 3.10 L Hgb 9.6 L Hct 28.8 L MCV MCH MCHC Plt Count Lymph % (Auto) [place] % (Auto) Lymph # (Auto) [place] # (Auto) Seg Neutrophils % Seg Neuts % (Manual) Lymphocytes % (Manual) Monocytes % (Manual) Nucleated RBC % Seg Neutrophils # Seg Neutrophils # Man Abs Lymphs (Manual) Lymphocytes # (Manual) PT INR APTT D-Dimer Heparin Anti-Xa Level ABG pH POC ABG pCO2 POC ABG pO2 ABG Oxyhemoglobin ABG Sodium ABG Potassium ABG Glucose Carboxyhemoglobin Sodium Chloride Carbon Dioxide BUN Creatinine Glucose POC Glucose 111 H 115 H Calcium Phosphorus Ferritin Total Bilirubin AST ALT Alkaline Phosphatase Lactate Dehydrogenase Total Creatine Kinase Troponin T C-Reactive Protein NT-Pro-B Natriuret Pep Total Protein Albumin Cholesterol LDL Cholesterol Direct HDL Cholesterol PTH Intact Arterial Blood Glucose Urine WBC (Auto) Urine Creatinine Heparin-induced Plt Ab Lymph Enumerat CD4/CD8 Absolute CD3 Count Absolute CD4 Count % CD8 Cells Absolute CD8 Count Absolute CD19 Count Coronavirus (PCR) HIV-1 RNA PCR copies/ml HIV-1 RNA (PCR) log 09/26/20 09/26/20 09/27/20 07:06 17:26 04:00 WBC RBC Hgb Hct MCV MCH MCHC Plt Count Lymph % (Auto) [place] % (Auto) Lymph # (Auto) [place] # (Auto) Seg Neutrophils % Seg Neuts % (Manual) Lymphocytes % (Manual) Monocytes % (Manual) Nucleated RBC % Seg Neutrophils # Seg Neutrophils # Man Abs Lymphs (Manual) Lymphocytes # (Manual) PT INR APTT D-Dimer Heparin Anti-Xa Level ABG pH POC ABG pCO2 POC ABG pO2 ABG Oxyhemoglobin ABG Sodium ABG Potassium ABG Glucose Carboxyhemoglobin Sodium Chloride Carbon Dioxide BUN 69 H 67 H Creatinine 2.2 H 2.3 H Glucose 107 H 121 H POC Glucose 124 H Calcium Phosphorus Ferritin Total Bilirubin AST ALT Alkaline Phosphatase Lactate Dehydrogenase Total Creatine Kinase Troponin T C-Reactive Protein NT-Pro-B Natriuret Pep Total Protein Albumin Cholesterol LDL Cholesterol Direct HDL Cholesterol PTH Intact Arterial Blood Glucose Urine WBC (Auto) Urine Creatinine Heparin-induced Plt Ab Lymph Enumerat CD4/CD8 Absolute CD3 Count Absolute CD4 Count % CD8 Cells Absolute CD8 Count Absolute CD19 Count Coronavirus (PCR) HIV-1 RNA PCR copies/ml HIV-1 RNA (PCR) log 09/27/20 09/27/20 09/27/20 04:00 05:00 17:11 WBC 14.6 H RBC 2.72 L Hgb 8.6 L Hct 25.8 L MCV 95 H MCH MCHC Plt Count Lymph % (Auto) 4.3 L [place] % (Auto) Lymph # (Auto) 0.6 L [place] # (Auto) 0.9 H Seg Neutrophils % 89.6 H Seg Neuts % (Manual) Lymphocytes % (Manual) Monocytes % (Manual) Nucleated RBC % Seg Neutrophils # 13.1 H Seg Neutrophils # Man Abs Lymphs (Manual) Lymphocytes # (Manual) PT INR APTT D-Dimer Heparin Anti-Xa Level ABG pH POC ABG pCO2 POC ABG pO2 ABG Oxyhemoglobin ABG Sodium ABG Potassium ABG Glucose Carboxyhemoglobin Sodium Chloride Carbon Dioxide BUN Creatinine 2.4 H Glucose POC Glucose 132 H Calcium Phosphorus Ferritin Total Bilirubin AST ALT Alkaline Phosphatase Lactate Dehydrogenase Total Creatine Kinase Troponin T C-Reactive Protein NT-Pro-B Natriuret Pep Total Protein Albumin Cholesterol LDL Cholesterol Direct HDL Cholesterol PTH Intact Arterial Blood Glucose Urine WBC (Auto) Urine Creatinine Heparin-induced Plt Ab Lymph Enumerat CD4/CD8 Absolute CD3 Count Absolute CD4 Count % CD8 Cells Absolute CD8 Count Absolute CD19 Count Coronavirus (PCR) HIV-1 RNA PCR copies/ml HIV-1 RNA (PCR) log 09/28/20 09/28/20 09/29/20 04:46 04:46 04:45 WBC 14.6 H RBC 2.66 L Hgb 8.4 L Hct 25.3 L MCV 95 H MCH MCHC Plt Count Lymph % (Auto) [place] % (Auto) Lymph # (Auto) [place] # (Auto) Seg Neutrophils % Seg Neuts % (Manual) Lymphocytes % (Manual) Monocytes % (Manual) Nucleated RBC % Seg Neutrophils # Seg Neutrophils # Man Abs Lymphs (Manual) Lymphocytes # (Manual) PT INR APTT D-Dimer Heparin Anti-Xa Level ABG pH POC ABG pCO2 POC ABG pO2 ABG Oxyhemoglobin ABG Sodium ABG Potassium ABG Glucose Carboxyhemoglobin Sodium Chloride Carbon Dioxide BUN 71 H 63 H Creatinine 2.3 H 2.2 H Glucose 105 H POC Glucose Calcium Phosphorus Ferritin Total Bilirubin AST ALT Alkaline Phosphatase Lactate Dehydrogenase Total Creatine Kinase Troponin T C-Reactive Protein NT-Pro-B Natriuret Pep Total Protein Albumin Cholesterol LDL Cholesterol Direct HDL Cholesterol PTH Intact Arterial Blood Glucose Urine WBC (Auto) Urine Creatinine Heparin-induced Plt Ab Lymph Enumerat CD4/CD8 Absolute CD3 Count Absolute CD4 Count % CD8 Cells Absolute CD8 Count Absolute CD19 Count Coronavirus (PCR) HIV-1 RNA PCR copies/ml HIV-1 RNA (PCR) log 09/29/20 09/29/20 04:45 05:43 WBC RBC 2.92 L Hgb 9.6 L Hct 28.1 L MCV 96 H MCH 33 H MCHC Plt Count Lymph % (Auto) [place] % (Auto) Lymph # (Auto) [place] # (Auto) Seg Neutrophils % Seg Neuts % (Manual) Lymphocytes % (Manual) Monocytes % (Manual) Nucleated RBC % Seg Neutrophils # Seg Neutrophils # Man Abs Lymphs (Manual) Lymphocytes # (Manual) PT INR APTT D-Dimer Heparin Anti-Xa Level ABG pH POC ABG pCO2 POC ABG pO2 ABG Oxyhemoglobin ABG Sodium ABG Potassium ABG Glucose Carboxyhemoglobin Sodium Chloride Carbon Dioxide BUN Creatinine Glucose POC Glucose 69 L Calcium Phosphorus Ferritin Total Bilirubin AST ALT Alkaline Phosphatase Lactate Dehydrogenase Total Creatine Kinase Troponin T C-Reactive Protein NT-Pro-B Natriuret Pep Total Protein Albumin Cholesterol LDL Cholesterol Direct HDL Cholesterol PTH Intact Arterial Blood Glucose Urine WBC (Auto) Urine Creatinine Heparin-induced Plt Ab Lymph Enumerat CD4/CD8 Absolute CD3 Count Absolute CD4 Count % CD8 Cells Absolute CD8 Count Absolute CD19 Count Coronavirus (PCR) HIV-1 RNA PCR copies/ml HIV-1 RNA (PCR) log Allied health notes reviewed: nursing
--- NOTE | 2020-09-29 09:15 | Progress Note ---
Assessment and Plan * A. fib with RVR * Telemetry reviewed: Atrial fibrillation 100s-110s. No events * Optimize rate control regimen: Increase metoprolol to 50 mg twice daily, continue amiodarone p.o. 200 mg twice daily. Repeat CMP * Continue anticoagulation with Eliquis 2.5 mg twice daily in setting of renal disease * NSTEMI * Troponins elevated, subacute and nonspecific over the weekend. Suspect lab error. Repeat troponins are normal. * Echocardiogram reviewed (09/18/2020): LVEF is 40 to 45%. LVSF is mildly decreased. Mild concentric LVH. RVSF is mildly reduced. No valvular abnormalities. * LOLI with acute tubular necrosis * Patient on dialysis. Nephrology is following. * No GEMA/ARB in setting of LOLI. Avoid nephrotoxic agents. * DVT prophylaxis * Currently on Eliquis We will follow This patient was seen in conjunction with Dr Feliciano Grey who agrees with this assessment and plan of care - Patient Problems (1) AMS (altered mental status) Current Visit: Yes Status: Acute Qualifiers: Altered mental status type: somnolence Qualified Code(s): R40.0 - Somnolence (2) Acute hypoxemic respiratory failure Current Visit: Yes Status: Acute (3) Acute kidney injury (LOLI) with acute tubular necrosis (ATN) Current Visit: Yes Status: Acute (4) Atrial fibrillation with RVR Current Visit: Yes Status: Acute (5) NSTEMI (non-ST elevated myocardial infarction) Current Visit: Yes Status: Acute (6) Metabolic acidosis Current Visit: No Status: Acute (7) Systemic inflammatory response syndrome Current Visit: No Status: Acute Subjective Date of service: 09/29/20 Principal diagnosis: Acute Resp Fail, Sepsis, AF with RVR Interval history: Patient is resting in bed. Altered mental status. Telemetry reviewed: A. fib 100-110s. No events Objective Last Vital Signs Temp 97.8 F 09/29/20 08:00 Pulse 102 H 09/29/20 08:00 Resp 13 09/29/20 08:00 BP 121/93 09/29/20 08:00 Pulse Ox 97 09/29/20 08:30 - Physical Examination General: No Apparent Distress HEENT: Positive: Normocephaly, Mucus Membranes Moist Neck: Positive: neck supple. Negative: JVD/HJR Cardiac: Positive: irregularly irregular, S1/S2 Lungs: Positive: Normal Exam Neuro: Positive: Grossly Intact Abdomen: Positive: Soft Skin: Negative: Rash Musculoskeletal: No Pain Extremities: Present: upper extr. pulses, lower extr. pulses. Absent: edema - Labs and Meds CBC 09/29/20 Range/Units 04:45 WBC 10.5 (4.5-11.0) K/mm3 RBC 2.92 L (3.65-5.03) M/mm3 Hgb 9.6 L (11.8-15.2) gm/dl Hct 28.1 L (35.5-45.6) % Plt Count 266 (140-440) K/mm3 Comprehensive Metabolic Panel 09/29/20 Range/Units 04:45 Sodium 143 (137-145) mmol/L Potassium 4.4 (3.6-5.0) mmol/L Chloride 104.3 (98-107) mmol/L Carbon Dioxide 30 (22-30) mmol/L BUN 63 H (9-20) mg/dL Creatinine 2.2 H (0.8-1.3) mg/dL Glucose 94 (75-100) mg/dL Calcium 9.4 (8.4-10.2) mg/dL - Imaging and Cardiology EKG: report reviewed, image reviewed Echo: report reviewed (09/18/2020 - EF 40-45%, mild concentric LVH, RV sys fxn mildly reduced, no significant valvular abnormality) Myocardial infarction: septal NC (old age or ind, anterior NC (old age or i - Allied health notes Allied health notes reviewed: nursing
[2020-09-29] MEDS: CHOLECALCIFEROL (VIT D3) 1000 UNIT (25 mcg) TAB PO SCH (09:41)
[2020-09-29] MEDS: MIDODRINE 5 MG TAB PO SCH ×3 (09:42→16:00)
[2020-09-29] MEDS: DEXAMETHASONE 4 MG TAB PO SCH (09:42)
[2020-09-29] MEDS: METOPROLOL TARTRATE 25 MG TAB PO SCH ×2 (09:43→18:30)
[2020-09-29] MEDS: APIXABAN 2.5 MG TAB PO SCH ×2 (09:43→21:19)
[2020-09-29] MEDS: FAMOTIDINE 20 MG TAB PO SCH (09:43)
[2020-09-29] MEDS: AMIODARONE 200 MG TAB PO SCH ×2 (09:43→21:19)
[2020-09-29] MEDS: ZINC SULFATE 220 MG CAP PO SCH (09:43)
[2020-09-29] MEDS: ASCORBIC ACID 500 MG TAB PO SCH ×2 (09:43→21:19)
[2020-09-29] MEDS: DOLUTEGRAVIR 50 MG TAB PO SCH (09:43)
--- NOTE | 2020-09-29 11:47 | Progress Note ---
Assessment and Plan 1. Acute kidney injury: Vasomotor LOLI in the setting of shock. ATN likely. Renal US negative for hydro. Multiple bladder scan negative. Patient require hemodialysis due to significant decline in the renal function. Hemodialysis: 09/20, 09/21, 09/25. Monitor renal function. Creatinine appears leveled off. Renal prognosis is guarded. Avoid nephrotoxic agents. Meds dosage based on GFR. Monitor for STREET PH[employer]GR[employer]HER needs. 2. FEN: Metabolic acidosis, improved, monitor. Monitor volume status and lytes. 3. Acute hypoxic respiratory failure: Covid test positive. Supplemental O2. 4. Acute CHF: Echocardiogram: EF 40-45%. CHF orderset / pathway. Monitor. 5. Atrial fibrillation with RVR: On Amio and Metoprolol. Followed by Cards. 6. Elevated troponin: Trend. Followed by Cards. 7. Coagulopathy: Trend. 8. Shock / Hypotension: Multifactorial, monitor. Off pressors. 9. Elevated Transaminases: Improving. 10. Metabolic encephalopathy: Monitor. 11. HIV. 12. Anemia, POA: Monitor. Subjective: Patient was seen and examined at the bedside. Objective: General appearance: well-developed, appears stated age, on restrains HEENT: ATNC, L pupil dilated Neck: trachea midline Respiratory: bilateral diminished breath sounds Heart: S1S2, irregular, no murmur Abdomen: soft, normoactive bowel sounds, not tender Integumentary: no obvious rash Ext: no edema Neurologic: lethargic, non-verbal, not following any command Hemodialysis access: R subclavian catheter Subjective Date of service: 09/29/20 Principal diagnosis: Acute Resp Fail, Sepsis, AF with RVR Objective - Vital Signs Vital signs: Vital Signs - 12hr 09/29/20 09/29/20 09/29/20 00:00 00:30 01:00 Temperature 98.5 F Pulse Rate 96 H 90 88 Pulse Rate [ 96 H From Monitor] Respiratory 20 11 L 11 L Rate Blood Pressure 125/86 125/86 108/76 O2 Sat by Pulse 100 93 Oximetry 09/29/20 09/29/20 09/29/20 01:30 02:00 02:30 Temperature Pulse Rate 102 H 89 106 H Pulse Rate [ From Monitor] Respiratory 9 L 13 10 L Rate Blood Pressure 108/76 106/74 106/74 O2 Sat by Pulse 86 70 L Oximetry 0509/29/20 09/29/20 03:00 03:30 04:00 Temperature 97.6 F Pulse Rate 105 H 97 H 114 H Pulse Rate [ 106 H From Monitor] Respiratory 12 15 14 Rate Blood Pressure 123/77 123/77 118/86 O2 Sat by Pulse 66 L 90 96 Oximetry 09/29/20 09/29/20 09/29/20 04:30 05:00 05:30 Temperature Pulse Rate 114 H 109 H 109 H Pulse Rate [ From Monitor] Respiratory 10 L 13 17 Rate Blood Pressure 118/86 126/90 126/90 O2 Sat by Pulse Oximetry 09/29/20 09/29/20 09/29/20 06:00 06:30 07:00 Temperature Pulse Rate 114 H 112 H 137 H Pulse Rate [ From Monitor] Respiratory 13 15 11 L Rate Blood Pressure 125/88 125/88 125/88 O2 Sat by Pulse 91 Oximetry 09/29/20 09/29/20 09/29/20 07:30 08:00 08:30 Temperature 97.8 F Pulse Rate 119 H 102 H 122 H Pulse Rate [ From Monitor] Respiratory 14 13 13 Rate Blood Pressure 121/93 121/93 98/61 O2 Sat by Pulse 100 97 Oximetry 09/29/20 09/29/20 09/29/20 09:00 09:30 10:00 Temperature Pulse Rate 112 H 112 H 111 H Pulse Rate [ From Monitor] Respiratory 12 13 9 L Rate Blood Pressure 99/67 99/67 99/67 O2 Sat by Pulse 97 Oximetry - Lab 09/29/20 04:45 09/29/20 04:45 Most recent lab results ABG pH 7.508 (7.320-7.450) H 09/17/20 10:28 ABG O2 Saturation 93.4 (0-100) 09/17/20 10:28 Calcium 9.4 mg/dL (8.4-10.2) 09/29/20 04:45 Phosphorus 2.90 mg/dL (2.5-4.5) 09/26/20 07:06 Magnesium 1.70 mg/dL (1.7-2.3) 09/26/20 07:06 Urine Creatinine 61.0 mg/dL (0.1-20.0) H 09/18/20 12:00 Urine Sodium 62 mmol/L 09/18/20 12:00 Medications & Allergies - Medications Allergies/Adverse Reactions: Allergies heparin Adverse Reaction (Verified 09/29/20 16:33) thrombocytopenia PF4 Home Medications: Home Medications Medication Instructions Recorded Confirmed Last Taken Type AtorvaSTATin [Lipitor] 20 mg PO QHS 09/18/20 09/18/20 Unknown History Dolutegravir [Tivicay] 50 mg PO DAILY 09/18/20 09/18/20 Unknown History Emtricitabine/Tenofov Alafenam 1 tab PO DAILY 09/18/20 09/18/20 Unknown History [Descovy 200-25 mg (Nf)] Rivaroxaban [Xarelto] 15 mg PO QDAY 09/18/20 09/18/20 Unknown History allopurinoL [Zyloprim] 300 mg PO QDAY 09/18/20 09/18/20 Unknown History carvediloL [Coreg] 25 mg PO BID 09/18/20 09/18/20 Unknown History lisinopriL [Lisinopril] 20 mg PO DAILY 09/18/20 09/18/20 Unknown History Active Medications: Generic Name Dose Route Start Last Admin Trade Name Freq PRN Reason Stop Dose Admin Acetaminophen 650 mg 09/17/20 13:52 09/28/20 03:21 Acetaminophen 325 Mg Tab PO 650 mg Q4H PRN Administration Pain MILD(1-3)/Fever >100.5/ANGEL Albuterol 2.5 mg 09/17/20 13:52 09/17/20 20:47 Albuterol 2.5 Mg/3 Ml Nebu IH 2.5 mg Q4HRT PRN Administration Shortness Of Breath Amiodarone HCl 200 mg 09/24/20 22:00 09/29/20 09:43 Amiodarone 200 Mg Tab PO 200 mg BID EDIE Administration Lipase/Protease/Amylase 1 each 09/20/20 13:10 Lipase 10,500/Protease 25,000/Amylase 43,750 (Units) Dr Darnell BINGHAM PRN PRN For Clogged Feeding Tube Apixaban 2.5 mg 09/24/20 12:00 09/29/20 09:43 Apixaban 2.5 Mg Tab PO 2.5 mg Q12HR EDIE Administration Protocol Ascorbic Acid 500 mg 09/20/20 22:00 09/29/20 09:43 Ascorbic Acid 500 Mg Tab PO 500 mg BID EDIE Administration Cholecalciferol 1,000 unit 09/21/20 10:00 09/29/20 09:41 Cholecalciferol (Vit D3) 1000 Unit (25 Mcg) Tab PO 1,000 unit QDAY EDIE Administration Emtricitabine 200 mg 09/20/20 12:00 09/28/20 13:44 Emtricitabine 200 Mg Cap PO 200 mg Q96H EDIE Administration Famotidine 20 mg 09/24/20 10:00 09/29/20 09:43 Famotidine 20 Mg Tab PO 20 mg DAILY EDIE Administration Heparin Sodium (Porcine) 3,000 unit 09/20/20 10:06 Heparin 10,000 Units/10 Ml Vial IV VIRGIL PRN hemodialysis Sodium Chloride 100 mls @ 999 mls/hr 09/20/20 10:06 Nacl 0.9% IV VIRGIL PRN Hypotension Metoprolol Tartrate 5 mg 09/19/20 19:06 09/24/20 10:59 Metoprolol Tartrate 5 Mg/5 Ml Inj IV 5 mg Q8HR PRN Administration HR > 135 Minute Metoprolol Tartrate 25 mg 09/24/20 22:00 09/29/20 09:43 Metoprolol Tartrate 25 Mg Tab PO 25 mg BID EDIE Administration Midodrine 5 mg 09/22/20 12:00 09/29/20 09:42 Midodrine 5 Mg Tab PO 5 mg TID@0800,1200,1600 EDIE Administration Ondansetron HCl 4 mg 09/17/20 13:52 Ondansetron 4 Mg/2 Ml Inj IV Q8H PRN Nausea And Vomiting Oxycodone HCl 5 mg 09/21/20 13:14 09/29/20 05:51 Oxycodone 5 Mg Tab PO 5 mg Q6H PRN Administration Pain, Moderate (4-6) Simple Syrup 15 ml 09/20/20 13:10 Simple Syrup 15 Ml FEEDTUBE PRN PRN Hypoglycemia Simple Syrup 30 ml 09/20/20 13:10 Simple Syrup 15 Ml FEEDTUBE PRN PRN Hypoglycemia Sodium Bicarbonate 325 mg 09/20/20 13:10 Sodium Bicarbonate 325 Mg Tab FEEDTUBE PRN PRN For Clogged Feeding Tube Sodium Chloride 10 ml 09/17/20 22:00 09/28/20 21:27 Sodium Chloride 0.9% 10 Ml Flush Syringe IV 10 ml BID EDIE Administration Sodium Chloride 10 ml 09/17/20 13:52 09/24/20 09:15 Sodium Chloride 0.9% 10 Ml Flush Syringe IV 10 ml PRN PRN Administration LINE FLUSH Tenofovir Disoproxil Fumarate 300 mg 09/20/20 22:00 09/27/20 21:39 Tenofovir 300 Mg Tab PO 300 mg Mo EDIE Administration Zinc Sulfate 220 mg 09/21/20 10:00 09/29/20 09:43 Zinc Sulfate 220 Mg Cap PO 220 mg QDAY EDIE Administration
[2020-09-29] MEDS ORDERED: QUEtiapine 25 MG TAB PO SCH (13:00)
[2020-09-29] MEDS ORDERED: METOPROLOL TARTRATE 25 MG TAB PO SCH (13:00)
--- NOTE | 2020-09-29 13:40 | Progress Note ---
Assessment and Plan Cultures: 09/18/2020 COVID-19 PCR: Positive 09/18/2020 blood culture: E.coli 09/18/2020 Urine culture: E.coli 09/19/2020 sputum culture: Contaminated with oral secretions 09/19/2020 HIV RNA PCR: 67 copies per mL Assessment: 70-year-old male with history of HIV infection (unknown CD4/VL/ART compliance), hypertension, atrial fibrillation on Xarelto, initially admitted on 09/15/2020 RVR A. fib, LOLI, left AMA, came back to the ED on 09/17/2020 secondary to worsening shortness of breath for 3 days: #Severe sepsis with septic shock: Shock resolved. Remains with leukocytosis. Secondary to E.coli bacteremia likely from UTI. HIDA scan negative for acute cholecystitis. #E.coli bacteremia: Likely from UTI. RUQ US did show a large GB stone. Labs initially with elevated LFTs and bilirubin. HIDA negative. Was seen by Gen Surg. #UTI: Urinalysis with 71 WBCs and moderate leukocyte esterase. Urine culture with E.coli #COVID-19: PCR positive. On supplemental oxygen. Was not given remdesivir due to renal failure. #LOLI: renally dose meds and antimicrobials. On HD. #Acute respiratory hypoxic failure: Remains on 3 L #HIV: listed meds are Descovy + Tivicay. Likely good control since his HIV RNA PCR came back at 67 copies/ml. CD4 is 70 but 30%, overall count is low likely due to steroids. OI prophylaxis is not needed. #Acute encephalopathy: ?multifactorial. CT head unremarkable for acute process. Remains confused. Recommendations: -Completed IV ceftriaxone 2 g daily ending 09/28/2020 (total 10 days) -complete steroid course for COVID-19 -continue renally dosed antiretroviral therapy based on formulary/therapeutic interchange: TDF + FTC + DTG -anticoag per protocol, on eliquis -Monitor off antibiotics Will follow. Arlene Patel MD Infectious Diseases Inspector [employer] [facility] M [phone] O [phone] Subjective Date of service: 09/29/20 Principal diagnosis: Acute Resp Fail, Sepsis, AF with RVR Interval history: Feels better, talking, slightly agitated. Objective - Exam Narrative Exam: General appearance: Alert, in no acute distress, on nasal cannula oxygen Eyes: anicteric sclerae, moist conjunctivae; no lid-lag; PERRLA HENT: Normocephalic, Atraumatic; normal external ears, nares open, oropharynx limited partially edentulous Neck: supple, tracheal midline, no JVD Lungs: Bilateral scattered rhonchi CV: RRR Abdomen: Soft, nontender Extremities: No edema Skin: No rash. Psych: Anxious Neuro: Alert, confused - Constitutional Vitals: Vital Signs Temp Pulse Resp BP Pulse Ox 97.0 F L 98 H 12 114/81 100 09/29/20 12:00 09/29/20 13:00 09/29/20 13:00 09/29/20 13:00 09/29/20 12:30 Temperature -Last 24 Hours Temperature 97.0 F Temperature 97.8 F Temperature 97.6 F Temperature 98.5 F Temperature 98.5 F Temperature 98.0 F - Labs CBC & Chem 7: 09/29/20 04:45 09/29/20 04:45 Labs: Abnormal lab results 09/29/20 09/29/20 09/29/20 Range/Units 04:45 04:45 05:43 RBC 2.92 L (3.65-5.03) M/mm3 Hgb 9.6 L (11.8-15.2) gm/dl Hct 28.1 L (35.5-45.6) % MCV 96 H (84-94) fl MCH 33 H (28-32) pg BUN 63 H (9-20) mg/dL Creatinine 2.2 H (0.8-1.3) mg/dL POC Glucose 69 L (70-105) mg/dL
--- NOTE | 2020-09-29 15:19 | Progress Note ---
Assessment and Plan Assessment and plan: This is 70-year-old male with HIV, HTN, and atrial fibrillation (currently on therapeutic anticoagulation with Xarelto) presents the emergency department on 09/17 with complaints of shortness of breath over the past 3 days and on arrival of EMS patient was found to have a pulse oximetry of 85% on room air. He was placed on supplemental oxygenation. Of note patient was admitted on 09/15 with similar complaints and found to have A. fib with RVR, hyponatremia, hypomagnesemia and acute kidney injury and left AMA. He was admitted to the hospital service with atrial fibrillation with RVR, SIRs, metabolic acidosis, acute kidney injury, acute hypoxic respiratory failure, hypotension, and CHF . Cardiology, CCM and nephrology were consulted. 09/18/2020. Await echocardiogram to assess for diastolic versus systolic etiology. Patient with elevated BNP greater than 18,000. Patient apparently was admitted approximately 3 days ago but left AMA. Cardiology consulted for heart failure, A. fib with RVR and elevated troponin. Patient denies chest pain. Also, patient with elevated creatinine of 4.7 with creatinine 2.8 on recent admission. We do not have a previous creatinine as a baseline to compar e. Nephrology consultation pending. Follow-up renal ultrasound. Patient with coagulopathy and INR 3.04. Unsure if patient was on anticoagulation for A. fib. 09/19/2020. Patient likely with vasomotor acute kidney injury in the setting of shock. Follow-up urine studies and renal ultrasound. Creatinine continues to worsen. Nephrology following. Etiology of respiratory failure secondary to hea rt failure with Covid testing pending. Elevated troponin suggestive of NSTEMI. Continue diuresis with Lasix. Continue IV amiodarone for rate control of A. fib with RVR. Continue heparin. Follow-up echocardiogram. Cardiology following. 09/20/2020: This time my examination patient was on BiPAP therapy and now is on nasal cannula. Patient remains on amiodarone drip with heart rate in the 130s t o 140s and vasopressor support with Levophed. Today nephrology will initiate hemodialysis given worsening renal function studies and has stopped diuresis with Lasix. ID resumed antiretroviral therapy and ordered a HIDA scan. Today the patient received a temporary Vas-Cath and is COVID-19 PCR resulted as positive. Patient will be started on vitamin C, vitamin D and zinc and dexamethasone given need for supplemental oxygenation. 09/21: Ecoli UTI and bacteremia and ID has changed him to meropenem, Patient received HD yesterday and patient remains on amiodarone drip. He is off the floor to obtain a HIDA scan. 09/22: HIDA scan did not show acute cholecystitis. Ecoli bacteremia is sensitive to ceftriaxone and ID changed his abx. Mentation is better. BP is liable. Remains on levophed and vasopressin. We started midodrine. HIT panel pending and hem/onc consulted. 09/23: Patient noted to have unequal pupils with left >right, STAT CT head ordered. Nephro will withhold hemodialysis and assess needs as kidney function has gotten better. Patient symptomatically follows commands and is on nasal cannula. Cardiology stopped his Eliquis due to persistent thrombocytopenia. 09/24: Patient remains confused, pupils still unequal. Started on eliquis 2.5 today and he will be transferred to IMCU. 09/25: Patient remains confused, had Bipap overnight, CT abd/pelvis ordered per ID recommendations given persistent leukocytosis. Cr remains unchanged but BUN in rising. Nephrology is on the case. 09/26/2020; patient was confused and on 3 L of oxygen. ID is following the patient and continue with antiretroviral medications, no OI prophylaxis needed. Patient is on IV Rocephin lasted 09/28 per ID recommendation for E. coli bacteremia. ID ordered CT abdomen and pelvis. We will follow the results. Sulaiman wild is being followed by cardiology and they recommend to resume Eliquis with 2.5 mg p.o. twice daily, thrombocytopenia is improving. Patient is on amiodarone and metoprolol. Patient is being followed by nephrology and is on dialysis. Blood pressure was normal this morning. Patient was tachycardic in A. fib with RVR. CT head was normal. Prognosis is guarded. Continue IMCU care. 09/27: Continue IMCU care, still with unresolved Afib, will continue to adjust medications for better control. 09/28: Start Seroquel DUE TO THE AGITATION, Discussed with daughter, will work on getting Afib better controlled. Per daughter the confusion is new, although some improvement noted today. Patient will benefit from SNF 09/29: Seroquel started today as it was not started yesterday, await PT/OT, Yasmin veronica to monitor mental status, will transfer to Tele. Anticipate discharge when bed available. Septic Shock Acute hypoxemic respiratory failure 2/2 to volume overload/chf exacerbation Acute systolic heart failure exacerbation Atrial fibrillation with RVR Acute on chronic kidney injury Hypotension Anemia Thrombocytopenia E coli bacteremia E. coli urinary tract infection NSTEMI Elevated Ddimer Leukocytosis HIV, asymptomatic HTN Coagulopathy Transaminitis -Cardiology, CCM, Nephrology, ID, general surgery, heme/onc consulted, appreciate recommendations -09/20 COVID-19 PCR positive -Droplet/isolation precautions -Dexamethasone 6 mg p.o. (09/20-09/30) -Vitamin D, vitamin C, zinc -Vasopressor support with levophed and vasopressin, midodrine -09/17 CXR shows borderline heart size, mild central pulmonary venous congestion -09/17 renal ultrasound shows no acute findings -09/18 echocardiogram shows left ventricle systolic function mildly decreased, LVEF of 40 to 45% with mild concentric left ventricle hypertrophy, trace MR, mild TR, trace VT -09/19 abdominal ultrasound shows large gallstone within the gallbladder, no pericholecystic fluid, gallbladder wall upper limits of normal measuring 3 mm -09/21 HIDA scan shows no evidence of acute cholecystitis -09/21 BLE Dopplar US no evidence for DVT -09/23 CT head shows no acute intracranial hemorrhage or parenchymal abnormality, mild diffuse brain atrophy with commensurate ventricular enlargement which is likely age appropriate, small frontal scalp lipoma measuring 9 mm in thickness, 4 cm in length, and 4 cm in width., Sinuses and mastoid air cells are clear. -09/17 proBNP 46036 -S/p IV Lasix twice daily -09/20 nephrology initiated the patient on dialysis -Pulmonary hygiene -Bipap qhs -09/25 CT abd/pelvis without contrast pending -PO amiodarone -HIV meds per ID -IV abx therapy -HIT pending -Trend CBC, BMP, LFTs DVT/GI prophylaxis: PPI, SCDs to bilateral lower extremities while in bed, no chemical anticoagulation at this time d/t thrombocytopenia Disposition: IMCU History Interval history: This is 70-year-old male with HIV, HTN, and atrial fibrillation (currently on therapeutic anticoagulation with Xarelto) admitted with atrial fibrillation with RVR, SIRs, metabolic acidosis, acute kidney injury, acute hypoxic respiratory failure, hypotension, and CHF Patient seen and examined, No new issues reported except agitation, remains on 3 liters of oxygen. drowsy this morning following seroquel Hospitalist Physical - Physical exam Narrative exam: Patient was on 3L of oxygen. The patient appeared well nourished and normally developed. Vital signs as documented. Head exam is unremarkable. No scleral icterus . Neck is without jugular venous distension, thyromegaly, or carotid bruits. Lungs are clear to auscultation. Cardiac exam reveals regular rate and Rhythm. Abdominal exam reveals normal bowel sounds, nontender, no organomegaly. Extremities are nonedematous and both femoral and pedal pulses are normal. 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 agitated - Constitutional Vitals: Temp Pulse Resp BP Pulse Ox 97.0 F L 98 H 12 114/81 100 09/29/20 12:00 09/29/20 13:00 09/29/20 13:00 09/29/20 13:00 09/29/20 12:30 General appearance: Present: no acute distress HEART Score - HEART Score Troponin: Troponin T < 0.010 ng/mL (0.00-0.029) 09/22/20 05:38 Results - Labs CBC & Chem 7: 09/29/20 04:45 09/29/20 04:45 Labs: Laboratory Last Values WBC 10.5 K/mm3 (4.5-11.0) 09/29/20 04:45 RBC 2.92 M/mm3 (3.65-5.03) L 09/29/20 04:45 Hgb 9.6 gm/dl (11.8-15.2) L 09/29/20 04:45 Hct 28.1 % (35.5-45.6) L 09/29/20 04:45 MCV 96 fl (84-94) H 09/29/20 04:45 MCH 33 pg (28-32) H 09/29/20 04:45 MCHC 34 % (32-34) 09/29/20 04:45 RDW 13.8 % (13.2-15.2) 09/29/20 04:45 Plt Count 266 K/mm3 (140-440) 09/29/20 04:45 Lymph % (Auto) 4.3 % (13.4-35.0) L 09/27/20 04:00 [place] % (Auto) 6.0 % (0.0-7.3) 09/27/20 04:00 Eos % (Auto) 0.1 % (0.0-4.3) 09/27/20 04:00 Baso % (Auto) 0.0 % (0.0-1.8) 09/27/20 04:00 Lymph # (Auto) 0.6 K/mm3 (1.2-5.4) L 09/27/20 04:00 [place] # (Auto) 0.9 K/mm3 (0.0-0.8) H 09/27/20 04:00 Eos # (Auto) 0.0 K/mm3 (0.0-0.4) 09/27/20 04:00 Baso # (Auto) 0.0 K/mm3 (0.0-0.1) 09/27/20 04:00 Add Manual Diff Complete 09/23/20 04:36 Total Counted 100 09/23/20 04:36 Seg Neutrophils % 89.6 % (40.0-70.0) H 09/27/20 04:00 Seg Neuts % (Manual) 91.0 % (40.0-70.0) H 09/23/20 04:36 Band Neutrophils % 2.0 % 09/23/20 04:36 Lymphocytes % (Manual) 2.0 % (13.4-35.0) L 09/23/20 04:36 Monocytes % (Manual) 5.0 % (0.0-7.3) 09/23/20 04:36 Nucleated RBC % Not Reportable 09/23/20 04:36 Seg Neutrophils # 13.1 K/mm3 (1.8-7.7) H 09/27/20 04:00 Seg Neutrophils # Man 12.9 K/mm3 (1.8-7.7) H 09/23/20 04:36 Band Neutrophils # 0.3 K/mm3 09/23/20 04:36 Abs Lymphs (Manual) 223 cells/uL (850-3900) L 09/19/20 13:35 Lymphocytes # (Manual) 0.3 K/mm3 (1.2-5.4) L 09/23/20 04:36 Abs React Lymphs (Man) 0.0 K/mm3 09/23/20 04:36 Monocytes # (Manual) 0.7 K/mm3 (0.0-0.8) 09/23/20 04:36 Eosinophils # (Manual) 0.0 K/mm3 (0.0-0.4) 09/23/20 04:36 Basophils # (Manual) 0.0 K/mm3 (0.0-0.1) 09/23/20 04:36 Metamyelocytes # 0.0 K/mm3 09/23/20 04:36 Myelocytes # 0.0 K/mm3 09/23/20 04:36 Promyelocytes # 0.0 K/mm3 09/23/20 04:36 Blast Cells # 0.0 K/mm3 09/23/20 04:36 WBC Morphology Not Reportable 09/23/20 04:36 Hypersegmented Neuts Not Reportable 09/23/20 04:36 Hyposegmented Neuts Not Reportable 09/23/20 04:36 Hypogranular Neuts Not Reportable 09/23/20 04:36 Smudge Cells Not Reportable 09/23/20 04:36 Toxic Granulation Not Reportable 09/23/20 04:36 Toxic Vacuolation Not Reportable 09/23/20 04:36 Dohle Bodies Not Reportable 09/23/20 04:36 Pelger-Huet Anomaly Not Reportable 09/23/20 04:36 Vinh Rods Not Reportable 09/23/20 04:36 Platelet Estimate Consistent w auto 09/23/20 04:36 Clumped Platelets Not Reportable 09/23/20 04:36 Plt Clumps, EDTA Not Reportable 09/23/20 04:36 Large Platelets Not Reportable 09/23/20 04:36 Giant Platelets Not Reportable 09/23/20 04:36 Platelet Satelliting Not Reportable 09/23/20 04:36 Plt Morphology Comment Not Reportable 09/23/20 04:36 RBC Morphology Not Reportable 09/23/20 04:36 Dimorphic RBCs Not Reportable 09/23/20 04:36 Polychromasia Not Reportable 09/23/20 04:36 Hypochromasia Not Reportable 09/23/20 04:36 Poikilocytosis Not Reportable 09/23/20 04:36 Anisocytosis 1+ 09/23/20 04:36 Microcytosis Not Reportable 09/23/20 04:36 Macrocytosis Not Reportable 09/23/20 04:36 Spherocytes Not Reportable 09/23/20 04:36 Pappenheimer Bodies Not Reportable 09/23/20 04:36 Sickle Cells Not Reportable 09/23/20 04:36 Target Cells Few 09/23/20 04:36 Tear Drop Cells Not Reportable 09/23/20 04:36 Ovalocytes Not Reportable 09/23/20 04:36 Helmet Cells Not Reportable 09/23/20 04:36 [place] Bodies Not Reportable 09/23/20 04:36 [place] Rings Not Reportable 09/23/20 04:36 [place] Cells Not Reportable 09/23/20 04:36 Bite Cells Not Reportable 09/23/20 04:36 Crenated Cell Not Reportable 09/23/20 04:36 Elliptocytes Not Reportable 09/23/20 04:36 Acanthocytes (Spur) Not Reportable 09/23/20 04:36 Rouleaux Not Reportable 09/23/20 04:36 Hemoglobin C Crystals Not Reportable 09/23/20 04:36 Schistocytes Not Reportable 09/23/20 04:36 Malaria parasites Not Reportable 09/23/20 04:36 Zachary Bodies Not Reportable 09/23/20 04:36 Hem Pathologist Commnt No 09/23/20 04:36 PT 15.7 Sec. (12.2-14.9) H 09/24/20 12:13 INR 1.27 (0.87-1.13) H 09/24/20 12:13 APTT 25.7 Sec. (24.2-36.6) 09/24/20 12:13 D-Dimer 1772.86 ng/mlDDU (0-234) H 09/24/20 05:00 Heparin Anti-Xa Level 0.10 U.I./ml (0.3-0.7) L 09/20/20 04:00 Heparin Anti-Xa, Unfract Negative (Negative) 09/22/20 15:12 ABG pH 7.508 (7.320-7.450) H 09/17/20 10:28 POC ABG pCO2 22.8 mmHg (32.0-48.0) L 09/17/20 10:28 POC ABG pO2 66.8 mmHg (83-108) L 09/17/20 10:28 POC ABG HCO3 17.7 09/17/20 10:28 ABG O2 Saturation 93.4 (0-100) 09/17/20 10:28 POC ABG Base Excess -3.5 09/17/20 10:28 ABG Hemoglobin 12.7 (12.0-17.5) 09/17/20 10:28 ABG Oxyhemoglobin 92.7 (94-98) L 09/17/20 10:28 ABG Methemoglobin 0.3 (0.0-1.5) 09/17/20 10:28 ABG Sodium 127.4 mmol/L (136.0-145.0) L 09/17/20 10:28 ABG Potassium 4.7 mmol/L (3.40-4.50) H 09/17/20 10:28 ABG Chloride 101.0 mmol/L (98-107) 09/17/20 10:28 ABG Glucose 121 mg/dL (65-95) H 09/17/20 10:28 Carboxyhemoglobin 0.4 (0.5-1.5) L 09/17/20 10:28 FiO2 % 21 09/17/20 10:28 Sodium 143 mmol/L (137-145) 09/29/20 04:45 Potassium 4.4 mmol/L (3.6-5.0) 09/29/20 04:45 Chloride 104.3 mmol/L (98-107) 09/29/20 04:45 Carbon Dioxide 30 mmol/L (22-30) 09/29/20 04:45 Anion Gap 13 mmol/L 09/29/20 04:45 BUN 63 mg/dL (9-20) H 09/29/20 04:45 Creatinine 2.2 mg/dL (0.8-1.3) H 09/29/20 04:45 Estimated GFR 36 ml/min 09/29/20 04:45 BUN/Creatinine Ratio 29 % 09/29/20 04:45 Glucose 94 mg/dL (75-100) 09/29/20 04:45 POC Glucose 69 mg/dL (70-105) L 09/29/20 05:43 Lactic Acid 1.00 mmol/L (0.7-2.0) 09/20/20 17:10 Calcium 9.4 mg/dL (8.4-10.2) 09/29/20 04:45 Phosphorus 2.90 mg/dL (2.5-4.5) 09/26/20 07:06 Magnesium 1.70 mg/dL (1.7-2.3) 09/26/20 07:06 Ferritin 1190.0 ng/mL (30.0-300.0) H 09/24/20 05:00 Total Bilirubin 2.40 mg/dL (0.1-1.2) H 09/21/20 Unknown AST 31 units/L (5-40) 09/21/20 Unknown ALT 57 units/L (7-56) H 09/21/20 Unknown Alkaline Phosphatase < 5 units/L (35-129) L 09/21/20 Unknown Lactate Dehydrogenase 276 units/L (91-180) H 09/24/20 05:00 Total Creatine Kinase 20 units/L (55-170) L 09/19/20 03:30 Troponin T < 0.010 ng/mL (0.00-0.029) 09/22/20 05:38 C-Reactive Protein 4.20 mg/dL (0.00-1.30) H 09/24/20 05:00 NT-Pro-B Natriuret Pep 18722 pg/mL (0-900) H 09/17/20 10:47 Total Protein 6.7 g/dL (6.3-8.2) 09/21/20 Unknown Albumin 1.9 g/dL (3.9-5) L 09/21/20 Unknown Albumin/Globulin Ratio 0.4 % 09/21/20 Unknown Triglycerides 137 mg/dL (2-149) 09/17/20 13:54 Cholesterol 48 mg/dL (50-199) L 09/17/20 13:54 LDL Cholesterol Direct 4 mg/dL (50-130) L 09/17/20 13:54 HDL Cholesterol 9 mg/dL (40-59) L 09/17/20 13:54 Cholesterol/HDL Ratio 5.33 % 09/17/20 13:54 Free PSA See scanned result 09/17/20 17:35 % Free PSA Calc See scanned result 09/17/20 17:35 Total PSA See scanned result 09/17/20 17:35 Procalcitonin 2.10 ng/mL (<0.15) 09/25/20 06:40 PTH Intact 161.4 pg/mL (15-65) H 09/19/20 03:30 Arterial Blood Glucose 121 mg/dL (65-95) H 09/17/20 10:28 Arterial Blood Ionized Calcium 5.0 mg/dL (4.6-5.3) 09/17/20 10:28 Urine Color Yellow (Yellow) 09/18/20 12:00 Urine Turbidity Cloudy (Clear) 09/18/20 12:00 Urine pH 5.0 (5.0-7.0) 09/18/20 12:00 Ur Specific [place] 1.009 (1.003-1.030) 09/18/20 12:00 Urine Protein 30 mg/dl mg/dL (Negative) 09/18/20 12:00 Urine Glucose (UA) Neg mg/dL (Negative) 09/18/20 12:00 Urine Ketones Neg mg/dL (Negative) 09/18/20 12:00 Urine Blood Sm (Negative) 09/18/20 12:00 Urine Nitrite Neg (Negative) 09/18/20 12:00 Urine Bilirubin Neg (Negative) 09/18/20 12:00 Urine Urobilinogen < 2.0 mg/dL (<2.0) 09/18/20 12:00 Ur Leukocyte Esterase Mod (Negative) 09/18/20 12:00 Urine WBC (Auto) 71.0 /HPF (0.0-6.0) H 09/18/20 12:00 Urine RBC (Auto) 2.0 /HPF (0.0-6.0) 09/18/20 12:00 U Epithel Cells (Auto) 1.0 /HPF (0-13.0) 09/18/20 12:00 Urine Bacteria (Auto) 4+ /HPF (Negative) 09/18/20 12:00 Urine WBC Clumps 2+ /HPF 09/18/20 12:00 Hyaline Casts 3 /LPF 09/18/20 12:00 Granular Casts 3 /LPF 09/18/20 12:00 Urine Mucus Few /HPF 09/18/20 12:00 Urine Eosinophils None seen (None Seen) 09/19/20 03:15 Urine Creatinine 61.0 mg/dL (0.1-20.0) H 09/18/20 12:00 Urine Sodium 62 mmol/L 09/18/20 12:00 Random Vancomycin 12.7 ug/mL (0-40.0) 09/19/20 03:30 Heparin-induced Plt Ab Weak positive (Negative) H 09/22/20 15:12 UF Heparin High Dose 0 % Release 09/22/20 15:12 COR[place]ON UFH Low Dose 0.1 0 % Release 09/22/20 15:12 [place]ON UFH Low Dose 0.5 0 % Release 09/22/20 15:12 Lymph Enumerat CD4/CD8 0.70 (0.86-5.00) L 09/19/20 13:35 % CD3 Cells 79 % (57-85) 09/19/20 13:35 Absolute CD3 Count 175 cells/uL (840-3060) L 09/19/20 13:35 % CD4 Cells 31 % (30-61) 09/19/20 13:35 Absolute CD4 Count 70 cells/uL (490-1740) L 09/19/20 13:35 % CD8 Cells 45 % (12-42) H 09/19/20 13:35 Absolute CD8 Count 101 cells/uL (180-1170) L 09/19/20 13:35 % CD19 Cells 12 % (6-29) 09/19/20 13:35 Absolute CD19 Count 26 cells/uL (110-660) L 09/19/20 13:35 Coronavirus (PCR) Positive (Negative) A 09/18/20 09:39 Hepatitis A IgM Ab Non-reactive (NonReactive) 09/20/20 17:10 Hep Bs Antigen Non-reactive (Negative) 09/20/20 17:10 Hep B Core IgM Ab Non-reactive (NonReactive) 09/20/20 17:10 Hepatitis C Antibody Non-reactive (NonReactive) 09/20/20 17:10 HIV-1 RNA PCR copies/ml 67 Copies/mL H 09/19/20 13:35 HIV-1 RNA (PCR) log 1.83 Log cps/mL H 09/19/20 13:35 Gardner/IV: Voiding Method Incontinent Active Medications - Current Medications Current Medications: Generic Name Dose Route Start Last Admin Trade Name Freq PRN Reason Stop Dose Admin Acetaminophen 650 mg 09/17/20 13:52 09/28/20 03:21 Acetaminophen 325 Mg Tab PO 650 mg Q4H PRN Administration Pain MILD(1-3)/Fever >100.5/ANGEL Albuterol 2.5 mg 09/17/20 13:52 09/17/20 20:47 Albuterol 2.5 Mg/3 Ml Nebu IH 2.5 mg Q4HRT PRN Administration Shortness Of Breath Amiodarone HCl 200 mg 09/24/20 22:00 09/29/20 09:43 Amiodarone 200 Mg Tab PO 200 mg BID EDIE Administration Lipase/Protease/Amylase 1 each 09/20/20 13:10 Lipase 10,500/Protease 25,000/Amylase 43,750 (Units) Dr Patrick FEEDTUBE PRN PRN For Clogged Feeding Tube Apixaban 2.5 mg 09/24/20 12:00 09/29/20 09:43 Apixaban 2.5 Mg Tab PO 2.5 mg Q12HR EDIE Administration Protocol Ascorbic Acid 500 mg 09/20/20 22:00 09/29/20 09:43 Ascorbic Acid 500 Mg Tab PO 500 mg BID EDIE Administration Cholecalciferol 1,000 unit 09/21/20 10:00 09/29/20 09:41 Cholecalciferol (Vit D3) 1000 Unit (25 Mcg) Tab PO 1,000 unit QDAY EDIE Administration Emtricitabine 200 mg 09/20/20 12:00 09/28/20 13:44 Emtricitabine 200 Mg Cap PO 200 mg Q96H EDIE Administration Famotidine 20 mg 09/24/20 10:00 09/29/20 09:43 Famotidine 20 Mg Tab PO 20 mg DAILY EDIE Administration Heparin Sodium (Porcine) 3,000 unit 09/20/20 10:06 Heparin 10,000 Units/10 Ml Vial IV VIRGIL PRN hemodialysis Sodium Chloride 100 mls @ 999 mls/hr 09/20/20 10:06 Nacl 0.9% IV VIRGIL PRN Hypotension Sodium Chloride 500 mls @ 999 mls/hr 09/29/20 15:51 09/29/20 15:00 Nacl 0.9% 500 Ml IV 09/29/20 16:21 999 mls/hr ONCE ONE Administration Metoprolol Tartrate 5 mg 09/19/20 19:06 09/24/20 10:59 Metoprolol Tartrate 5 Mg/5 Ml Inj IV 5 mg Q8HR PRN Administration HR > 135 Minute Metoprolol Tartrate 50 mg 09/29/20 13:00 09/29/20 15:03 Metoprolol Tartrate 25 Mg Tab PO Not Given BID EDIE Midodrine 5 mg 09/22/20 12:00 09/29/20 12:47 Midodrine 5 Mg Tab PO 5 mg TID@0800,1200,1600 EDIE Administration Ondansetron HCl 4 mg 09/17/20 13:52 Ondansetron 4 Mg/2 Ml Inj IV Q8H PRN Nausea And Vomiting Oxycodone HCl 5 mg 09/21/20 13:14 09/29/20 05:51 Oxycodone 5 Mg Tab PO 5 mg Q6H PRN Administration Pain, Moderate (4-6) Quetiapine Fumarate 25 mg 09/30/20 10:00 Quetiapine 25 Mg Tab PO BID EDIE Simple Syrup 15 ml 09/20/20 13:10 Simple Syrup 15 Ml FEEDTUBE PRN PRN Hypoglycemia Simple Syrup 30 ml 09/20/20 13:10 Simple Syrup 15 Ml FEEDTUBE PRN PRN Hypoglycemia Sodium Bicarbonate 325 mg 09/20/20 13:10 Sodium Bicarbonate 325 Mg Tab FEEDTUBE PRN PRN For Clogged Feeding Tube Sodium Chloride 10 ml 09/17/20 22:00 09/29/20 15:02 Sodium Chloride 0.9% 10 Ml Flush Syringe IV 10 ml BID EDIE Administration Sodium Chloride 10 ml 09/17/20 13:52 09/24/20 09:15 Sodium Chloride 0.9% 10 Ml Flush Syringe IV 10 ml PRN PRN Administration LINE FLUSH Tenofovir Disoproxil Fumarate 300 mg 09/20/20 22:00 09/27/20 21:39 Tenofovir 300 Mg Tab PO 300 mg Mo EDIE Administration Zinc Sulfate 220 mg 09/21/20 10:00 09/29/20 09:43 Zinc Sulfate 220 Mg Cap PO 220 mg QDAY EDIE Administration Nutrition/Malnutrition Assess - Dietary Evaluation Nutrition/Malnutrition Findings: Nutrition Notes Start: 09/18/20 11:30 Freq: Status: Active Protocol: Document 09/27/20 13:30 [facility] (Rec: 09/27/20 13:40 [facility] [id number]) Nutrition Notes Initial or Follow up Reassessment Current Diagnosis Acute Kidney Injury,Sepsis, Hypertension,Heart Failure, Respiratory Failure Other Pertinent Diagnosis COVID-19 (+), AMS, UTI, afib with RVR, HIV (+) Current Diet TF - Nepro at 45ml/hr Labs/Tests BUN 67 Cr 2.3 Pertinent Medications Reviewed Height 6 ft 1 in Weight 73 kg [place] Body Weight (kg) 83.63 BMI 21.2 Weight Status Underweight Subjective/Other Information Pt pulled out NGT yesterday, however, it was re-inserted and confirmed by KUB. Spoke with RN via phone at 13:28. Pt tolerating TF at goal rate. Percent of energy/protein needs met: 100% energy 99% pro Burn Absent Trauma Absent #2 Nutrition Diagnosis Inadequate oral intake Diagnosis Progress(for reassessment Continues documentation) Is patient on ventilator? No Is Patient Ambulatory and/or Out of Bed No REE-([facility]-confined to bed) 1858.500 Kcal/Kg value to use for calculation 30 Approximate Energy Requirements Using 2190 kcal/Kg Calculation Used for Recommendations Kcal/kg Additional Notes Pro needs >1.2g/kg: >88g/day Fluid needs 1-1.5L/day Nutrition Intervention Nutrition Support: Continue Nepro at 45 ml/hr with a free water flush of 200 ml q4h Kcal 1,944 Protein (gm) 87 Fluid (mL) 785 Goal #1 TF tolerance Goal #2 TF to meet 75-100% energy and pro needs Goal #3 Wt maintenance and/or gain Follow-Up By: 10/04/20 Additional Comments F/U: stable TF, wt
[2020-09-29] MEDS ORDERED: SODIUM CHLORIDE 0.9% 500 ML 500 ML IV ONE (15:51)
[2020-09-29] MEDS ORDERED: SODIUM CHLORIDE 0.9% 1000 ML 500 ML IV ONE (18:34)
[2020-09-30] MEDS: oxyCODONE 5 MG TAB PO PRN (00:19)
--- NOTE | 2020-09-30 03:00 | Hem/Onc Progress Note ---
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 recent atrial fibrillation on IV heparin-->now eliquis recent COvid19 infection recent elevated liver enzymes PLAN: cont eliquis inpt-->outpt Active Medications Acetaminophen (Acetaminophen 325 Mg Tab) 650 mg PO Q4H PRN PRN Reason: Pain MILD(1-3)/Fever >100.5/ANGEL Last Admin: 09/28/20 03:21 Dose: 650 mg Documented by: Albuterol (Albuterol 2.5 Mg/3 Ml Nebu) 2.5 mg IH Q4HRT PRN PRN Reason: Shortness Of Breath Last Admin: 09/17/20 20:47 Dose: 2.5 mg Documented by: Amiodarone HCl (Amiodarone 200 Mg Tab) 200 mg PO BID [facility] Last Admin: 09/29/20 21:19 Dose: 200 mg Documented by: Lipase/Protease/Amylase (Lipase 10,500/Protease 25,000/Amylase 43,750 (Units) Dr Patrick) 1 each FEEDTUBE PRN PRN PRN Reason: For Clogged Feeding Tube Apixaban (Apixaban 2.5 Mg Tab) 2.5 mg PO Q12HR [facility]; Protocol Last Admin: 09/29/20 21:19 Dose: 2.5 mg Documented by: Emtricitabine (Emtricitabine 200 Mg Cap) 200 mg PO Q96H [facility] Last Admin: 09/28/20 13:44 Dose: 200 mg Documented by: Famotidine (Famotidine 20 Mg Tab) 20 mg PO DAILY [facility] Last Admin: 09/29/20 09:43 Dose: 20 mg Documented by: Heparin Sodium (Porcine) (Heparin 10,000 Units/10 Ml Vial) 3,000 unit IV VIRGIL PRN PRN Reason: hemodialysis Sodium Chloride (Nacl 0.9%) 100 mls @ 999 mls/hr IV VIRGIL PRN PRN Reason: Hypotension Metoprolol Tartrate (Metoprolol Tartrate 5 Mg/5 Ml Inj) 5 mg IV Q8HR PRN PRN Reason: HR > 135 Minute Last Admin: 09/24/20 10:59 Dose: 5 mg Documented by: Metoprolol Tartrate (Metoprolol Tartrate 25 Mg Tab) 25 mg PO BID EDIE Midodrine (Midodrine 5 Mg Tab) 5 mg PO TID@0800,1200,1600 EDIE Last Admin: 09/29/20 12:47 Dose: 5 mg Documented by: Ondansetron HCl (Ondansetron 4 Mg/2 Ml Inj) 4 mg IV Q8H PRN PRN Reason: Nausea And Vomiting Oxycodone HCl (Oxycodone 5 Mg Tab) 5 mg PO Q6H PRN PRN Reason: Pain, Moderate (4-6) Last Admin: 09/30/20 00:19 Dose: 5 m Documented by: Laboratory Last Values WBC 10.5 K/mm3 (4.5-11.0) 09/29/20 04:45 RBC 2.92 M/mm3 (3.65-5.03) L 09/29/20 04:45 Hgb 9.6 gm/dl (11.8-15.2) L 09/29/20 04:45 Hct 28.1 % (35.5-45.6) L 09/29/20 04:45 Plt Count 266 K/mm3 (140-440) 09/29/20 04:45 PT 15.7 Sec. (12.2-14.9) H 09/24/20 12:13 INR 1.27 (0.87-1.13) H 09/24/20 12:13 APTT 25.7 Sec. (24.2-36.6) 09/24/20 12:13 D-Dimer 1772.86 ng/mlDDU (0-234) H 09/24/20 05:00 Heparin-induced Plt Ab Weak positive (Negative) H 09/22/20 15:12 UF Heparin High Dose 0 % Release 09/22/20 15:12 CORAZON UFH Low Dose 0.1 0 % Release 09/22/20 15:12 CORAZON UFH Low Dose 0.5 0 % Release 09/22/20 15:12 Absolute CD4 Count 70 cells/uL (490-1740) L 09/19/20 13:35 Hepatitis C Antibody Non-reactive (NonReactive) 09/20/20 17:10 HIV-1 RNA PCR copies/ml 67 Copies/mL H 09/19/20 13:35 HIV-1 RNA (PCR) log 1.83 Log cps/mL H 09/19/20 13:35 Objective - Constitutional Vitals: Last Vital Signs Temp 97.4 F L 09/30/20 00:00 Pulse 80 09/30/20 02:00 Resp 10 L 09/30/20 02:00 BP 101/64 09/30/20 02:00 Pulse Ox 100 09/30/20 02:00 - Labs Lab Results: Laboratory Results - last 24 hr 09/28/20 09/29/20 09/29/20 23:46 04:45 04:45 WBC 10.5 RBC 2.92 L Hgb 9.6 L Hct 28.1 L MCV 96 H MCH 33 H MCHC 34 RDW 13.8 Plt Count 266 Sodium 143 Potassium 4.4 Chloride 104.3 Carbon Dioxide 30 Anion Gap 13 BUN 63 H Creatinine 2.2 H Estimated GFR 36 BUN/Creatinine Ratio 29 Glucose 94 POC Glucose 97 Calcium 9.4 09/29/20 09/29/20 09/29/20 05:43 17:50 23:45 WBC RBC Hgb Hct MCV MCH MCHC RDW Plt Count Sodium Potassium Chloride Carbon Dioxide Anion Gap BUN Creatinine Estimated GFR BUN/Creatinine Ratio Glucose POC Glucose 69 L 132 H 96 Calcium Medications & Allergies - Medications Allergies/Adverse Reactions: Allergies heparin Adverse Reaction (Verified 09/29/20 16:33) thrombocytopenia PF4 Home Medications: Home Medications Medication Instructions Recorded Confirmed Last Taken Type AtorvaSTATin [Lipitor] 20 mg PO QHS 09/18/20 09/18/20 Unknown History Dolutegravir [Tivicay] 50 mg PO DAILY 09/18/20 09/18/20 Unknown History Emtricitabine/Tenofov Alafenam 1 tab PO DAILY 09/18/20 09/18/20 Unknown History [Descovy 200-25 mg (Nf)] Rivaroxaban [Xarelto] 15 mg PO QDAY 09/18/20 09/18/20 Unknown History allopurinoL [Zyloprim] 300 mg PO QDAY 09/18/20 09/18/20 Unknown History carvediloL [Coreg] 25 mg PO BID 09/18/20 09/18/20 Unknown History lisinopriL [Lisinopril] 20 mg PO DAILY 09/18/20 09/18/20 Unknown History Active Medications: Generic Name Dose Route Start Last Admin Trade Name Freq PRN Reason Stop Dose Admin Acetaminophen 650 mg 09/17/20 13:52 09/28/20 03:21 Acetaminophen 325 Mg Tab PO 650 mg Q4H PRN Administration Pain MILD(1-3)/Fever >100.5/ANGEL Albuterol 2.5 mg 09/17/20 13:52 09/17/20 20:47 Albuterol 2.5 Mg/3 Ml Nebu IH 2.5 mg Q4HRT PRN Administration Shortness Of Breath Amiodarone HCl 200 mg 09/24/20 22:00 09/29/20 21:19 Amiodarone 200 Mg Tab PO 200 mg BID EDIE Administration Lipase/Protease/Amylase 1 each 09/20/20 13:10 Lipase 10,500/Protease 25,000/Amylase 43,750 (Units) Dr Patrick FEEDTUBE PRN PRN For Clogged Feeding Tube Apixaban 2.5 mg 09/24/20 12:00 09/29/20 21:19 Apixaban 2.5 Mg Tab PO 2.5 mg Q12HR EDIE Administration Protocol Ascorbic Acid 500 mg 09/20/20 22:00 09/29/20 21:19 Ascorbic Acid 500 Mg Tab PO 500 mg BID EDIE Administration Cholecalciferol 1,000 unit 09/21/20 10:00 09/29/20 09:41 Cholecalciferol (Vit D3) 1000 Unit (25 Mcg) Tab PO 1,000 unit QDAY EDIE Administration Emtricitabine 200 mg 09/20/20 12:00 09/28/20 13:44 Emtricitabine 200 Mg Cap PO 200 mg Q96H EDIE Administration Famotidine 20 mg 09/24/20 10:00 09/29/20 09:43 Famotidine 20 Mg Tab PO 20 mg DAILY EDIE Administration Heparin Sodium (Porcine) 3,000 unit 09/20/20 10:06 Heparin 10,000 Units/10 Ml Vial IV VIRGIL PRN hemodialysis Sodium Chloride 100 mls @ 999 mls/hr 09/20/20 10:06 Nacl 0.9% IV VIRGIL PRN Hypotension Metoprolol Tartrate 5 mg 09/19/20 19:06 09/24/20 10:59 Metoprolol Tartrate 5 Mg/5 Ml Inj IV 5 mg Q8HR PRN Administration HR > 135 Minute Metoprolol Tartrate 25 mg 09/29/20 18:34 Metoprolol Tartrate 25 Mg Tab PO BID EDIE Midodrine 5 mg 09/22/20 12:00 09/29/20 12:47 Midodrine 5 Mg Tab PO 5 mg TID@0800,1200,1600 EDIE Administration Ondansetron HCl 4 mg 09/17/20 13:52 Ondansetron 4 Mg/2 Ml Inj IV Q8H PRN Nausea And Vomiting Oxycodone HCl 5 mg 09/21/20 13:14 09/30/20 00:19 Oxycodone 5 Mg Tab PO 5 mg Q6H PRN Administration Pain, Moderate (4-6) Quetiapine Fumarate 25 mg 09/30/20 10:00 Quetiapine 25 Mg Tab PO BID EDIE Simple Syrup 15 ml 09/20/20 13:10 Simple Syrup 15 Ml FEEDTUBE PRN PRN Hypoglycemia Simple Syrup 30 ml 09/20/20 13:10 Simple Syrup 15 Ml FEEDTUBE PRN PRN Hypoglycemia Sodium Bicarbonate 325 mg 09/20/20 13:10 Sodium Bicarbonate 325 Mg Tab FEEDTUBE PRN PRN For Clogged Feeding Tube Sodium Chloride 10 ml 09/17/20 22:00 09/29/20 23:35 Sodium Chloride 0.9% 10 Ml Flush Syringe IV Not Given BID EDIE Sodium Chloride 10 ml 09/17/20 13:52 09/24/20 09:15 Sodium Chloride 0.9% 10 Ml Flush Syringe IV 10 ml PRN PRN Administration LINE FLUSH Tenofovir Disoproxil Fumarate 300 mg 09/20/20 22:00 09/27/20 21:39 Tenofovir 300 Mg Tab PO 300 mg Mo EDIE Administration Zinc Sulfate 220 mg 09/21/20 10:00 09/29/20 09:43 Zinc Sulfate 220 Mg Cap PO 220 mg QDAY EDIE Administration
[2020-09-30 05:18] LABS: Hematocrit 23.9 % (35.5-45.6); Hemoglobin 8.1 gm/dl (11.8-15.2); Mean Corpuscular HGB Conc 34 % (32-34); Mean Corpuscular Volume 97 fl (84-94); Platelet Count 240 K/mm3 (140-440); Red Blood Count 2.47 M/mm3 (3.65-5.03); Red Cell Distribution Width 14.2 % (13.2-15.2)
[2020-09-30 05:51] LABS: Albumin 2.2 g/dL (3.9-5); Calcium 8.8 mg/dL (8.4-10.2)
--- NOTE | 2020-09-30 09:24 | Progress Note ---
Assessment and Plan 1. Acute kidney injury: Vasomotor LOLI in the setting of shock. ATN likely. Renal US negative for hydro. Multiple bladder scan negative. Patient require hemodialysis due to significant decline in the renal function. Hemodialysis: 09/20, 09/21, 09/25. Monitor renal function. Creatinine appears leveled off. Renal prognosis is guarded. Avoid nephrotoxic agents. Meds dosage based on GFR. Monitor for [employer] needs. 2. FEN: Metabolic acidosis, improved, monitor. Monitor volume status and lytes. 3. Acute hypoxic respiratory failure: Covid test positive. Supplemental O2. 4. Acute CHF: Echocardiogram: EF 40-45%. CHF orderset / pathway. Monitor. 5. Atrial fibrillation with RVR: On Amio and Metoprolol. Followed by Cards. 6. Elevated troponin: Trend. Followed by Cards. 7. Coagulopathy: Trend. 8. Shock / Hypotension: Multifactorial, monitor. Off pressors. 9. Elevated Transaminases: Improving. 10. Metabolic encephalopathy: Monitor. 11. HIV. 12. Anemia, POA: Monitor. Subjective: Patient was seen and examined at the bedside. Objective: General appearance: well-developed, appears stated age, on restrains HEENT: ATNC, L pupil dilated Neck: trachea midline Respiratory: bilateral diminished breath sounds Heart: S1S2, irregular, no murmur Abdomen: soft, normoactive bowel sounds, not tender Integumentary: no obvious rash Ext: no edema Neurologic: lethargic, non-verbal, not following any command Hemodialysis access: R subclavian catheter Subjective Date of service: 09/30/20 Principal diagnosis: Acute Resp Fail, Sepsis, AF with RVR Objective - Vital Signs Vital signs: Vital Signs - 12hr 09/29/20 09/29/20 09/29/20 21:30 22:00 22:30 Temperature Pulse Rate 100 H 83 95 H Pulse Rate [ From Monitor] Respiratory 11 L 11 L 11 L Rate Blood Pressure 95/67 86/53 100/65 O2 Sat by Pulse 100 99 93 Oximetry 09/29/20 09/29/20 09/29/20 23:00 23:26 23:30 Temperature Pulse Rate 91 H 87 94 H Pulse Rate [ From Monitor] Respiratory 10 L 11 L 12 Rate Blood Pressure 102/65 102/65 108/73 O2 Sat by Pulse 99 100 90 Oximetry 09/29/20 09/30/2021 23:32 00:00 00:10 Temperature 97.4 F L Pulse Rate 85 87 98 H Pulse Rate [ From Monitor] Respiratory 13 11 L 16 Rate Blood Pressure 108/73 99/65 O2 Sat by Pulse 100 100 96 Oximetry 09/30/20 09/30/20 09/30/20 00:30 01:00 01:30 Temperature Pulse Rate 100 H 90 101 H Pulse Rate [ From Monitor] Respiratory 11 L 10 L 13 Rate Blood Pressure 100/70 94/58 98/66 O2 Sat by Pulse 100 100 Oximetry 09/30/20 09/30/20 09/30/20 02:00 02:30 03:00 Temperature Pulse Rate 80 88 89 Pulse Rate [ From Monitor] Respiratory 10 L 10 L 11 L Rate Blood Pressure 101/64 93/63 116/84 O2 Sat by Pulse 100 65 L Oximetry 09/30/20 09/30/20 09/30/20 03:30 04:00 04:30 Temperature 97.5 F L Pulse Rate 95 H 99 H 90 Pulse Rate [ 90 From Monitor] Respiratory 9 L 10 L 10 L Rate Blood Pressure 98/63 103/73 95/63 O2 Sat by Pulse 86 Oximetry 09/30/20 09/30/20 09/30/20 05:00 05:30 06:00 Temperature Pulse Rate 101 H 105 H 87 Pulse Rate [ From Monitor] Respiratory 11 L 15 10 L Rate Blood Pressure 94/61 105/74 100/75 O2 Sat by Pulse 100 93 97 Oximetry 09/30/20 07:38 Temperature 98.1 F Pulse Rate Pulse Rate [ From Monitor] Respiratory Rate Blood Pressure O2 Sat by Pulse Oximetry - Lab 09/30/20 04:47 09/30/20 04:47 Most recent lab results ABG pH 7.508 (7.320-7.450) H 09/17/20 10:28 ABG O2 Saturation 93.4 (0-100) 09/17/20 10:28 Calcium 8.8 mg/dL (8.4-10.2) 09/30/20 04:47 Phosphorus 2.90 mg/dL (2.5-4.5) 09/26/20 07:06 Magnesium 1.70 mg/dL (1.7-2.3) 09/26/20 07:06 Urine Creatinine 61.0 mg/dL (0.1-20.0) H 09/18/20 12:00 Urine Sodium 62 mmol/L 09/18/20 12:00 Medications & Allergies - Medications Allergies/Adverse Reactions: Allergies heparin Adverse Reaction (Verified 09/29/20 16:33) thrombocytopenia PF4 Home Medications: Home Medications Medication Instructions Recorded Confirmed Last Taken Type AtorvaSTATin [Lipitor] 20 mg PO QHS 09/18/20 09/18/20 Unknown History Dolutegravir [Tivicay] 50 mg PO DAILY 09/18/20 09/18/20 Unknown History Emtricitabine/Tenofov Alafenam 1 tab PO DAILY 09/18/20 09/18/20 Unknown History [Descovy 200-25 mg (Nf)] Rivaroxaban [Xarelto] 15 mg PO QDAY 09/18/20 09/18/20 Unknown History allopurinoL [Zyloprim] 300 mg PO QDAY 09/18/20 09/18/20 Unknown History carvediloL [Coreg] 25 mg PO BID 09/18/20 09/18/20 Unknown History lisinopriL [Lisinopril] 20 mg PO DAILY 09/18/20 09/18/20 Unknown History Active Medications: Generic Name Dose Route Start Last Admin Trade Name Freq PRN Reason Stop Dose Admin Acetaminophen 650 mg 09/17/20 13:52 09/28/20 03:21 Acetaminophen 325 Mg Tab PO 650 mg Q4H PRN Administration Pain MILD(1-3)/Fever >100.5/ANGEL Albuterol 2.5 mg 09/17/20 13:52 09/17/20 20:47 Albuterol 2.5 Mg/3 Ml Nebu IH 2.5 mg Q4HRT PRN Administration Shortness Of Breath Amiodarone HCl 200 mg 09/24/20 22:00 09/29/20 21:19 Amiodarone 200 Mg Tab PO 200 mg BID EDIE Administration Lipase/Protease/Amylase 1 each 09/20/20 13:10 Lipase 10,500/Protease 25,000/Amylase 43,750 (Units) Dr Patrick FEEDTUBE PRN PRN For Clogged Feeding Tube Apixaban 2.5 mg 09/24/20 12:00 09/29/20 21:19 Apixaban 2.5 Mg Tab PO 2.5 mg Q12HR EDIE Administration Protocol Ascorbic Acid 500 mg 09/20/20 22:00 09/29/20 21:19 Ascorbic Acid 500 Mg Tab PO 500 mg BID EDIE Administration Cholecalciferol 1,000 unit 09/21/20 10:00 09/29/20 09:41 Cholecalciferol (Vit D3) 1000 Unit (25 Mcg) Tab PO 1,000 unit QDAY EDIE Administration Emtricitabine 200 mg 09/20/20 12:00 09/28/20 13:44 Emtricitabine 200 Mg Cap PO 200 mg Q96H EDIE Administration Famotidine 20 mg 09/24/20 10:00 09/29/20 09:43 Famotidine 20 Mg Tab PO 20 mg DAILY EDIE Administration Heparin Sodium (Porcine) 3,000 unit 09/20/20 10:06 Heparin 10,000 Units/10 Ml Vial IV VIRGIL PRN hemodialysis Sodium Chloride 100 mls @ 999 mls/hr 09/20/20 10:06 Nacl 0.9% IV VIRGIL PRN Hypotension Metoprolol Tartrate 5 mg 09/19/20 19:06 09/24/20 10:59 Metoprolol Tartrate 5 Mg/5 Ml Inj IV 5 mg Q8HR PRN Administration HR > 135 Minute Metoprolol Tartrate 25 mg 09/29/20 18:34 Metoprolol Tartrate 25 Mg Tab PO BID [facility] Midodrine 5 mg 09/22/20 12:00 09/29/20 12:47 Midodrine 5 Mg Tab PO 5 mg TID@0800,1200,1600 EDIE Administration Ondansetron HCl 4 mg 09/17/20 13:52 Ondansetron 4 Mg/2 Ml Inj IV Q8H PRN Nausea And Vomiting Simple Syrup 15 ml 09/20/20 13:10 Simple Syrup 15 Ml FEEDTUBE PRN PRN Hypoglycemia Simple Syrup 30 ml 09/20/20 13:10 Simple Syrup 15 Ml FEEDTUBE PRN PRN Hypoglycemia Sodium Bicarbonate 325 mg 09/20/20 13:10 Sodium Bicarbonate 325 Mg Tab FEEDTUBE PRN PRN For Clogged Feeding Tube Sodium Chloride 10 ml 09/17/20 22:00 09/29/20 23:35 Sodium Chloride 0.9% 10 Ml Flush Syringe IV Not Given BID EDIE Sodium Chloride 10 ml 09/17/20 13:52 09/24/20 09:15 Sodium Chloride 0.9% 10 Ml Flush Syringe IV 10 ml PRN PRN Administration LINE FLUSH Tenofovir Disoproxil Fumarate 300 mg 09/20/20 22:00 09/27/20 21:39 Tenofovir 300 Mg Tab PO 300 mg Mo EDIE Administration Zinc Sulfate 220 mg 09/21/20 10:00 09/29/20 09:43 Zinc Sulfate 220 Mg Cap PO 220 mg QDAY EDIE Administration
[2020-09-30] MEDS: FAMOTIDINE 20 MG TAB PO SCH (09:54)
[2020-09-30] MEDS: MIDODRINE 5 MG TAB PO SCH ×3 (09:55→16:45)
[2020-09-30] MEDS: APIXABAN 2.5 MG TAB PO SCH ×2 (09:55→21:12)
[2020-09-30] MEDS: ASCORBIC ACID 500 MG TAB PO SCH ×2 (09:55→21:13)
[2020-09-30] MEDS: ZINC SULFATE 220 MG CAP PO SCH (09:55)
[2020-09-30] MEDS: CHOLECALCIFEROL (VIT D3) 1000 UNIT (25 mcg) TAB PO SCH (09:55)
[2020-09-30] MEDS: METOPROLOL TARTRATE 25 MG TAB PO SCH ×2 (09:56→21:13)
[2020-09-30] MEDS: DOLUTEGRAVIR 50 MG TAB PO SCH (09:57)
[2020-09-30] MEDS ORDERED: QUEtiapine 25 MG TAB PO SCH (10:00)
--- NOTE | 2020-09-30 13:16 | Progress Note ---
Assessment and Plan Acute hypoxemic respiratory failure. Atrial fibrillation with rapid ventricular response. Gram negative bacteremia Acute congestive heart failure exacerbation. Acute on chronic kidney injury. Anemia that is microcytic. Coagulopathy appears to be acquired. Respiratory alkalosis. Mild metabolic acidosis. Possible severe sepsis with shock due to a urinary tract infection. Urinary tract infection (i do feel that despite his CHF history he is septic now and with relative IVVD and will benefit from gentle hydration acutely - continue Eliquis 2.5 mg p.o. bid - [employer] evaluation and advance diet as tolerated - AB's per ID recommendations - continue to wean supplemental oxygen for target O2 sat's > 92% acutely - Aspiration precautions - prn bronchodilators with pulmonary hygiene per RT - continue accuchecks with glycemic control per SSI for target blood glucose of < 180 mg/dL; avoid hypoglycemia - avoid nephrotoxins, renally dose all medications - continue to avoid benzodiazepine's, reduce the possibility of delirium - prn analgesia per pain score - Maintenance of sleep-wake cycle, avoid delirium - G.I. & VTE prophylaxis - PT/OT/ROM exercises - continue mobility protocols for pressure ulcer prophylaxis - Monitor hemodynamics closely - continue other care per attending / other consultants - discharge planning ongoing concurrently COVID SPECIFIC INTERVENTIONS - Remdesivir as per ID/Pulmonary developed protocols - systemic steroids for severe COVID-19 infection (on Decadron) - follow repeat COVID tests results - zinc and vitamin C supplementation - Monitor inflammatory markers per facility protocol - ferritin, Ddimer, CRP - therapeutic anticoagulation per system Protocol based on d-dimer and clinical considerations - Continue contact and airborne isolation ... improved .... Re-evaluate in am & prn Subjective Date of service: 09/30/20 Principal diagnosis: Acute Resp Fail, Sepsis, AF with RVR Interval history: Patient is seen today for: Acute hypoxemic respiratory failure; A-fib with RVR; AE-CHF; LOLI on CKD; Severe sepsis with shock; UTI Seen and examined at bedside; 24hour events reviewed; nursing and respiratory care staff consulted; no adverse overnight events reported to me; resting peacefully in bed; delirium much better; off vasopressors; no emesis or overt aspiration Objective Vital Signs - 12hr 09/30/20 09/30/20 09/30/20 01:30 02:00 02:30 Temperature Pulse Rate 101 H 80 88 Pulse Rate [ From Monitor] Respiratory 13 10 L 10 L Rate Blood Pressure 98/66 101/64 93/63 O2 Sat by Pulse 100 100 Oximetry 09/30/20 09/30/20 09/30/20 03:00 03:30 04:00 Temperature 97.5 F L Pulse Rate 89 95 H 99 H Pulse Rate [ 90 From Monitor] Respiratory 11 L 9 L 10 L Rate Blood Pressure 116/84 98/63 103/73 O2 Sat by Pulse 65 L 86 Oximetry 09/30/20 09/30/20 09/30/20 04:30 05:00 05:30 Temperature Pulse Rate 90 101 H 105 H Pulse Rate [ From Monitor] Respiratory 10 L 11 L 15 Rate Blood Pressure 95/63 94/61 105/74 O2 Sat by Pulse 100 93 Oximetry 09/30/20 09/30/20 09/30/20 06:00 06:30 07:00 Temperature Pulse Rate 87 100 H 104 H Pulse Rate [ From Monitor] Respiratory 10 L 11 L 12 Rate Blood Pressure 100/75 106/74 102/72 O2 Sat by Pulse 97 53 L Oximetry 09/30/20 09/30/20 09/30/20 07:30 07:38 08:00 Temperature 98.1 F Pulse Rate 102 H 98 H Pulse Rate [ 100 H From Monitor] Respiratory 12 11 L Rate Blood Pressure 95/69 93/67 O2 Sat by Pulse 72 L 89 Oximetry 09/30/20 09/30/20 09/30/20 08:30 09:00 09:30 Temperature Pulse Rate 100 H 94 H 112 H Pulse Rate [ From Monitor] Respiratory 13 12 12 Rate Blood Pressure 102/66 94/67 97/61 O2 Sat by Pulse 71 L 74 L 53 L Oximetry 09/30/20 09/30/20 09/30/20 09:56 10:00 10:30 Temperature Pulse Rate 112 H 118 H 112 H Pulse Rate [ From Monitor] Respiratory 13 13 Rate Blood Pressure 97/61 101/59 102/62 O2 Sat by Pulse 99 Oximetry 09/30/20 09/30/20 11:00 12:29 Temperature 97.7 F Pulse Rate 122 H Pulse Rate [ From Monitor] Respiratory 12 Rate Blood Pressure 102/62 O2 Sat by Pulse Oximetry Constitutional: no acute distress, alert, appears uncomfortable, other (elderly male with mildly increased respiratory effort at rest) Eyes: non-icteric ENT: oropharynx moist Neck: supple, no lymphadenopathy, no JVD Effort: mildly labored Ascultation: Bilateral: rhonchi Percussion: Bilateral: not dull Cardiovascular: irregular rhythm Gastrointestinal: normoactive bowel sounds, soft, non-tender, non-distended Integumentary: normal Extremities: no cyanosis, no edema, pulses normal, no ischemia or petechiae Neurologic: non-focal exam (grossly), pupils equal and round, CN II-XII normal, other (delirious) Psychiatric: depressed, other (delirious) CBC and BMP: 09/30/20 04:47 10/01/20 07:16 ABG, PT/INR, D-dimer: ABG ABG pH 7.508 (7.320-7.450) H 09/17/20 10:28 POC ABG pCO2 22.8 mmHg (32.0-48.0) L 09/17/20 10:28 POC ABG pO2 66.8 mmHg (83-108) L 09/17/20 10:28 POC ABG HCO3 17.7 09/17/20 10:28 ABG O2 Saturation 93.4 (0-100) 09/17/20 10:28 PT/INR, D-dimer PT 15.7 Sec. (12.2-14.9) H 09/24/20 12:13 INR 1.27 (0.87-1.13) H 09/24/20 12:13 D-Dimer 1772.86 ng/mlDDU (0-234) H 09/24/20 05:00 Abnormal lab findings: Abnormal Labs 09/17/20 09/17/20 09/17/20 10:28 10:47 10:47 WBC 11.1 H RBC 3.44 L Hgb 11.2 L Hct 32.8 L MCV 95 H MCH MCHC Plt Count Lymph % (Auto) [place] % (Auto) Lymph # (Auto) [place] # (Auto) Seg Neutrophils % Seg Neuts % (Manual) Lymphocytes % (Manual) 4.0 L Monocytes % (Manual) Nucleated RBC % Seg Neutrophils # Seg Neutrophils # Man 10.7 H Abs Lymphs (Manual) Lymphocytes # (Manual) 0.4 L PT 32.9 H INR 3.16 H APTT 51.1 H D-Dimer Heparin Anti-Xa Level ABG pH 7.508 H POC ABG pCO2 22.8 L POC ABG pO2 66.8 L ABG Oxyhemoglobin 92.7 L ABG Sodium 127.4 L ABG Potassium 4.7 H ABG Glucose 121 H Carboxyhemoglobin 0.4 L Sodium Chloride Carbon Dioxide BUN Creatinine Glucose POC Glucose Calcium Phosphorus Ferritin Total Bilirubin AST ALT Alkaline Phosphatase Lactate Dehydrogenase Total Creatine Kinase Troponin T C-Reactive Protein NT-Pro-B Natriuret Pep Total Protein Albumin Cholesterol LDL Cholesterol Direct HDL Cholesterol PTH Intact Arterial Blood Glucose 121 H Urine WBC (Auto) Urine Creatinine Heparin-induced Plt Ab Lymph Enumerat CD4/CD8 Absolute CD3 Count Absolute CD4 Count % CD8 Cells Absolute CD8 Count Absolute CD19 Count Coronavirus (PCR) HIV-1 RNA PCR copies/ml HIV-1 RNA (PCR) log 09/17/20 09/17/20 09/17/20 10:47 10:47 13:54 WBC RBC Hgb Hct MCV MCH MCHC Plt Count Lymph % (Auto) [place] % (Auto) Lymph # (Auto) [place] # (Auto) Seg Neutrophils % Seg Neuts % (Manual) Lymphocytes % (Manual) Monocytes % (Manual) Nucleated RBC % Seg Neutrophils # Seg Neutrophils # Man Abs Lymphs (Manual) Lymphocytes # (Manual) PT INR APTT D-Dimer Heparin Anti-Xa Level ABG pH POC ABG pCO2 POC ABG pO2 ABG Oxyhemoglobin ABG Sodium ABG Potassium ABG Glucose Carboxyhemoglobin Sodium 125 L Chloride 95.3 L Carbon Dioxide 17 L BUN 64 H Creatinine 4.6 H D Glucose 104 H POC Glucose Calcium Phosphorus Ferritin Total Bilirubin AST 69 H ALT Alkaline Phosphatase Lactate Dehydrogenase Total Creatine Kinase Troponin T 0.061 H D 0.058 H C-Reactive Protein NT-Pro-B Natriuret Pep 98949 H Total Protein Albumin 1.9 L Cholesterol 48 L LDL Cholesterol Direct 4 L HDL Cholesterol 9 L PTH Intact Arterial Blood Glucose Urine WBC (Auto) Urine Creatinine Heparin-induced Plt Ab Lymph Enumerat CD4/CD8 Absolute CD3 Count Absolute CD4 Count % CD8 Cells Absolute CD8 Count Absolute CD19 Count Coronavirus (PCR) HIV-1 RNA PCR copies/ml HIV-1 RNA (PCR) log 09/17/20 09/17/20 09/17/20 16:36 17:35 17:35 WBC RBC 3.25 L Hgb 10.7 L Hct 31.1 L MCV 96 H MCH 33 H MCHC Plt Count Lymph % (Auto) [place] % (Auto) Lymph # (Auto) [place] # (Auto) Seg Neutrophils % Seg Neuts % (Manual) Lymphocytes % (Manual) Monocytes % (Manual) Nucleated RBC % Seg Neutrophils # Seg Neutrophils # Man Abs Lymphs (Manual) Lymphocytes # (Manual) PT 31.9 H INR 3.04 H APTT 50.9 H D-Dimer Heparin Anti-Xa Level ABG pH POC ABG pCO2 POC ABG pO2 ABG Oxyhemoglobin ABG Sodium ABG Potassium ABG Glucose Carboxyhemoglobin Sodium Chloride Carbon Dioxide BUN Creatinine Glucose POC Glucose Calcium Phosphorus Ferritin Total Bilirubin AST ALT Alkaline Phosphatase Lactate Dehydrogenase Total Creatine Kinase Troponin T 0.057 H C-Reactive Protein NT-Pro-B Natriuret Pep Total Protein Albumin Cholesterol LDL Cholesterol Direct HDL Cholesterol PTH Intact Arterial Blood Glucose Urine WBC (Auto) Urine Creatinine Heparin-induced Plt Ab Lymph Enumerat CD4/CD8 Absolute CD3 Count Absolute CD4 Count % CD8 Cells Absolute CD8 Count Absolute CD19 Count Coronavirus (PCR) HIV-1 RNA PCR copies/ml HIV-1 RNA (PCR) log 09/17/20 09/18/20 09/18/20 17:35 03:19 03:19 WBC RBC 3.32 L Hgb 10.9 L Hct 32.0 L MCV 96 H MCH 33 H MCHC Plt Count 138 L Lymph % (Auto) [place] % (Auto) Lymph # (Auto) [place] # (Auto) Seg Neutrophils % Seg Neuts % (Manual) 95.0 H Lymphocytes % (Manual) 3.0 L Monocytes % (Manual) Nucleated RBC % Seg Neutrophils # Seg Neutrophils # Man 8.1 H Abs Lymphs (Manual) Lymphocytes # (Manual) 0.3 L PT INR APTT D-Dimer Heparin Anti-Xa Level ABG pH POC ABG pCO2 POC ABG pO2 ABG Oxyhemoglobin ABG Sodium ABG Potassium ABG Glucose Carboxyhemoglobin Sodium Chloride Carbon Dioxide 16 L BUN 70 H Creatinine 4.6 H 4.7 H Glucose 104 H POC Glucose Calcium 8.2 L Phosphorus Ferritin Total Bilirubin 1.60 H AST 128 H ALT 67 H Alkaline Phosphatase Lactate Dehydrogenase Total Creatine Kinase Troponin T C-Reactive Protein NT-Pro-B Natriuret Pep Total Protein 5.2 L D Albumin 2.5 L Cholesterol LDL Cholesterol Direct HDL Cholesterol PTH Intact Arterial Blood Glucose Urine WBC (Auto) Urine Creatinine Heparin-induced Plt Ab Lymph Enumerat CD4/CD8 Absolute CD3 Count Absolute CD4 Count % CD8 Cells Absolute CD8 Count Absolute CD19 Count Coronavirus (PCR) HIV-1 RNA PCR copies/ml HIV-1 RNA (PCR) log 09/18/20 09/18/20 09/18/20 09:39 12:00 12:00 WBC RBC Hgb Hct MCV MCH MCHC Plt Count Lymph % (Auto) [place] % (Auto) Lymph # (Auto) [place] # (Auto) Seg Neutrophils % Seg Neuts % (Manual) Lymphocytes % (Manual) Monocytes % (Manual) Nucleated RBC % Seg Neutrophils # Seg Neutrophils # Man Abs Lymphs (Manual) Lymphocytes # (Manual) PT INR APTT D-Dimer Heparin Anti-Xa Level ABG pH POC ABG pCO2 POC ABG pO2 ABG Oxyhemoglobin ABG Sodium ABG Potassium ABG Glucose Carboxyhemoglobin Sodium Chloride Carbon Dioxide BUN Creatinine Glucose POC Glucose Calcium Phosphorus Ferritin Total Bilirubin AST ALT Alkaline Phosphatase Lactate Dehydrogenase Total Creatine Kinase Troponin T C-Reactive Protein NT-Pro-B Natriuret Pep Total Protein Albumin Cholesterol LDL Cholesterol Direct HDL Cholesterol PTH Intact Arterial Blood Glucose Urine WBC (Auto) 71.0 H Urine Creatinine 61.0 H Heparin-induced Plt Ab Lymph Enumerat CD4/CD8 Absolute CD3 Count Absolute CD4 Count % CD8 Cells Absolute CD8 Count Absolute CD19 Count Coronavirus (PCR) Positive A HIV-1 RNA PCR copies/ml HIV-1 RNA (PCR) log 09/18/20 09/18/20 09/18/20 15:07 15:07 18:33 WBC RBC Hgb 10.7 L Hct 31.3 L MCV MCH MCHC Plt Count Lymph % (Auto) [place] % (Auto) Lymph # (Auto) [place] # (Auto) Seg Neutrophils % Seg Neuts % (Manual) Lymphocytes % (Manual) Monocytes % (Manual) Nucleated RBC % Seg Neutrophils # Seg Neutrophils # Man Abs Lymphs (Manual) Lymphocytes # (Manual) PT 20.3 H INR 1.73 H APTT 40.8 H D-Dimer Heparin Anti-Xa Level 1.09 H ABG pH POC ABG pCO2 POC ABG pO2 ABG Oxyhemoglobin ABG Sodium ABG Potassium ABG Glucose Carboxyhemoglobin Sodium Chloride Carbon Dioxide BUN Creatinine Glucose POC Glucose Calcium Phosphorus Ferritin Total Bilirubin AST ALT Alkaline Phosphatase Lactate Dehydrogenase Total Creatine Kinase Troponin T C-Reactive Protein NT-Pro-B Natriuret Pep Total Protein Albumin Cholesterol LDL Cholesterol Direct HDL Cholesterol PTH Intact Arterial Blood Glucose Urine WBC (Auto) Urine Creatinine Heparin-induced Plt Ab Lymph Enumerat CD4/CD8 Absolute CD3 Count Absolute CD4 Count % CD8 Cells Absolute CD8 Count Absolute CD19 Count Coronavirus (PCR) HIV-1 RNA PCR copies/ml HIV-1 RNA (PCR) log 09/19/20 09/19/20 09/19/20 03:30 03:30 03:30 WBC RBC 3.29 L Hgb 10.9 L Hct 30.9 L MCV MCH 33 H MCHC 35 H Plt Count Lymph % (Auto) [place] % (Auto) Lymph # (Auto) [place] # (Auto) Seg Neutrophils % Seg Neuts % (Manual) Lymphocytes % (Manual) Monocytes % (Manual) Nucleated RBC % Seg Neutrophils # Seg Neutrophils # Man Abs Lymphs (Manual) Lymphocytes # (Manual) PT INR APTT D-Dimer Heparin Anti-Xa Level ABG pH POC ABG pCO2 POC ABG pO2 ABG Oxyhemoglobin ABG Sodium ABG Potassium ABG Glucose Carboxyhemoglobin Sodium 133 L Chloride Carbon Dioxide 17 L BUN 94 H Creatinine 5.0 H Glucose 120 H POC Glucose Calcium Phosphorus 6.30 H Ferritin Total Bilirubin 2.40 H AST 163 H ALT 109 H Alkaline Phosphatase 160 H Lactate Dehydrogenase Total Creatine Kinase 20 L Troponin T C-Reactive Protein NT-Pro-B Natriuret Pep Total Protein 6.2 L Albumin 2.0 L Cholesterol LDL Cholesterol Direct HDL Cholesterol PTH Intact 161.4 H Arterial Blood Glucose Urine WBC (Auto) Urine Creatinine Heparin-induced Plt Ab Lymph Enumerat CD4/CD8 Absolute CD3 Count Absolute CD4 Count % CD8 Cells Absolute CD8 Count Absolute CD19 Count Coronavirus (PCR) HIV-1 RNA PCR copies/ml HIV-1 RNA (PCR) log 09/19/20 09/19/20 09/19/20 06:35 13:35 13:35 WBC RBC Hgb Hct MCV MCH MCHC Plt Count Lymph % (Auto) [place] % (Auto) Lymph # (Auto) [place] # (Auto) Seg Neutrophils % Seg Neuts % (Manual) Lymphocytes % (Manual) Monocytes % (Manual) Nucleated RBC % Seg Neutrophils # Seg Neutrophils # Man Abs Lymphs (Manual) 223 L Lymphocytes # (Manual) PT INR APTT D-Dimer Heparin Anti-Xa Level ABG pH POC ABG pCO2 POC ABG pO2 ABG Oxyhemoglobin ABG Sodium ABG Potassium ABG Glucose Carboxyhemoglobin Sodium Chloride Carbon Dioxide BUN Creatinine Glucose POC Glucose 123 H Calcium Phosphorus Ferritin Total Bilirubin AST ALT Alkaline Phosphatase Lactate Dehydrogenase Total Creatine Kinase Troponin T C-Reactive Protein NT-Pro-B Natriuret Pep Total Protein Albumin Cholesterol LDL Cholesterol Direct HDL Cholesterol PTH Intact Arterial Blood Glucose Urine WBC (Auto) Urine Creatinine Heparin-induced Plt Ab Lymph Enumerat CD4/CD8 0.70 L Absolute CD3 Count 175 L Absolute CD4 Count 70 L % CD8 Cells 45 H Absolute CD8 Count 101 L Absolute CD19 Count 26 L Coronavirus (PCR) HIV-1 RNA PCR copies/ml 67 H HIV-1 RNA (PCR) log 1.83 H 09/19/20 09/20/20 09/20/20 23:37 04:00 04:00 WBC RBC 3.43 L Hgb 11.1 L Hct 32.2 L MCV MCH MCHC Plt Count 131 L Lymph % (Auto) [place] % (Auto) Lymph # (Auto) [place] # (Auto) Seg Neutrophils % Seg Neuts % (Manual) 88.0 H Lymphocytes % (Manual) 3.0 L Monocytes % (Manual) 9.0 H Nucleated RBC % Seg Neutrophils # Seg Neutrophils # Man 8.2 H Abs Lymphs (Manual) Lymphocytes # (Manual) 0.3 L PT INR APTT D-Dimer Heparin Anti-Xa Level 0.10 L ABG pH POC ABG pCO2 POC ABG pO2 ABG Oxyhemoglobin ABG Sodium ABG Potassium ABG Glucose Carboxyhemoglobin Sodium Chloride Carbon Dioxide BUN Creatinine Glucose POC Glucose 135 H Calcium Phosphorus Ferritin Total Bilirubin AST ALT Alkaline Phosphatase Lactate Dehydrogenase Total Creatine Kinase Troponin T C-Reactive Protein NT-Pro-B Natriuret Pep Total Protein Albumin Cholesterol LDL Cholesterol Direct HDL Cholesterol PTH Intact Arterial Blood Glucose Urine WBC (Auto) Urine Creatinine Heparin-induced Plt Ab Lymph Enumerat CD4/CD8 Absolute CD3 Count Absolute CD4 Count % CD8 Cells Absolute CD8 Count Absolute CD19 Count Coronavirus (PCR) HIV-1 RNA PCR copies/ml HIV-1 RNA (PCR) log 09/20/20 09/20/20 09/20/20 04:00 05:37 11:20 WBC RBC Hgb Hct MCV MCH MCHC Plt Count Lymph % (Auto) [place] % (Auto) Lymph # (Auto) [place] # (Auto) Seg Neutrophils % Seg Neuts % (Manual) Lymphocytes % (Manual) Monocytes % (Manual) Nucleated RBC % Seg Neutrophils # Seg Neutrophils # Man Abs Lymphs (Manual) Lymphocytes # (Manual) PT INR APTT D-Dimer Heparin Anti-Xa Level ABG pH POC ABG pCO2 POC ABG pO2 ABG Oxyhemoglobin ABG Sodium ABG Potassium ABG Glucose Carboxyhemoglobin Sodium Chloride Carbon Dioxide 16 L BUN 119 H Creatinine 6.2 H Glucose 136 H POC Glucose 137 H 108 H Calcium Phosphorus Ferritin Total Bilirubin AST ALT Alkaline Phosphatase Lactate Dehydrogenase Total Creatine Kinase Troponin T C-Reactive Protein NT-Pro-B Natriuret Pep Total Protein Albumin Cholesterol LDL Cholesterol Direct HDL Cholesterol PTH Intact Arterial Blood Glucose Urine WBC (Auto) Urine Creatinine Heparin-induced Plt Ab Lymph Enumerat CD4/CD8 Absolute CD3 Count Absolute CD4 Count % CD8 Cells Absolute CD8 Count Absolute CD19 Count Coronavirus (PCR) HIV-1 RNA PCR copies/ml HIV-1 RNA (PCR) log 09/20/20 09/20/20 09/20/20 17:10 17:10 17:10 WBC RBC Hgb Hct MCV MCH MCHC Plt Count Lymph % (Auto) [place] % (Auto) Lymph # (Auto) [place] # (Auto) Seg Neutrophils % Seg Neuts % (Manual) Lymphocytes % (Manual) Monocytes % (Manual) Nucleated RBC % Seg Neutrophils # Seg Neutrophils # Man Abs Lymphs (Manual) Lymphocytes # (Manual) PT INR APTT D-Dimer 4271.58 H Heparin Anti-Xa Level ABG pH POC ABG pCO2 POC ABG pO2 ABG Oxyhemoglobin ABG Sodium ABG Potassium ABG Glucose Carboxyhemoglobin Sodium Chloride Carbon Dioxide BUN Creatinine 6.0 H Glucose POC Glucose Calcium Phosphorus Ferritin 696.6 H Total Bilirubin AST ALT Alkaline Phosphatase Lactate Dehydrogenase Total Creatine Kinase Troponin T C-Reactive Protein NT-Pro-B Natriuret Pep Total Protein Albumin Cholesterol LDL Cholesterol Direct HDL Cholesterol PTH Intact Arterial Blood Glucose Urine WBC (Auto) Urine Creatinine Heparin-induced Plt Ab Lymph Enumerat CD4/CD8 Absolute CD3 Count Absolute CD4 Count % CD8 Cells Absolute CD8 Count Absolute CD19 Count Coronavirus (PCR) HIV-1 RNA PCR copies/ml HIV-1 RNA (PCR) log 09/20/20 09/20/20 09/20/20 17:10 18:21 23:14 WBC RBC Hgb Hct MCV MCH MCHC Plt Count Lymph % (Auto) [place] % (Auto) Lymph # (Auto) [place] # (Auto) Seg Neutrophils % Seg Neuts % (Manual) Lymphocytes % (Manual) Monocytes % (Manual) Nucleated RBC % Seg Neutrophils # Seg Neutrophils # Man Abs Lymphs (Manual) Lymphocytes # (Manual) PT INR APTT D-Dimer Heparin Anti-Xa Level ABG pH POC ABG pCO2 POC ABG pO2 ABG Oxyhemoglobin ABG Sodium ABG Potassium ABG Glucose Carboxyhemoglobin Sodium Chloride Carbon Dioxide BUN Creatinine Glucose POC Glucose 129 H 170 H Calcium Phosphorus Ferritin Total Bilirubin AST ALT Alkaline Phosphatase Lactate Dehydrogenase 209 H Total Creatine Kinase Troponin T C-Reactive Protein 10.60 H NT-Pro-B Natriuret Pep Total Protein Albumin Cholesterol LDL Cholesterol Direct HDL Cholesterol PTH Intact Arterial Blood Glucose Urine WBC (Auto) Urine Creatinine Heparin-induced Plt Ab Lymph Enumerat CD4/CD8 Absolute CD3 Count Absolute CD4 Count % CD8 Cells Absolute CD8 Count Absolute CD19 Count Coronavirus (PCR) HIV-1 RNA PCR copies/ml HIV-1 RNA (PCR) log 09/21/20 09/21/20 09/21/20 05:35 17:09 23:18 WBC RBC Hgb Hct MCV MCH MCHC Plt Count Lymph % (Auto) [place] % (Auto) Lymph # (Auto) [place] # (Auto) Seg Neutrophils % Seg Neuts % (Manual) Lymphocytes % (Manual) Monocytes % (Manual) Nucleated RBC % Seg Neutrophils # Seg Neutrophils # Man Abs Lymphs (Manual) Lymphocytes # (Manual) PT INR APTT D-Dimer Heparin Anti-Xa Level ABG pH POC ABG pCO2 POC ABG pO2 ABG Oxyhemoglobin ABG Sodium ABG Potassium ABG Glucose Carboxyhemoglobin Sodium Chloride Carbon Dioxide BUN Creatinine Glucose POC Glucose 170 H 140 H 139 H Calcium Phosphorus Ferritin Total Bilirubin AST ALT Alkaline Phosphatase Lactate Dehydrogenase Total Creatine Kinase Troponin T C-Reactive Protein NT-Pro-B Natriuret Pep Total Protein Albumin Cholesterol LDL Cholesterol Direct HDL Cholesterol PTH Intact Arterial Blood Glucose Urine WBC (Auto) Urine Creatinine Heparin-induced Plt Ab Lymph Enumerat CD4/CD8 Absolute CD3 Count Absolute CD4 Count % CD8 Cells Absolute CD8 Count Absolute CD19 Count Coronavirus (PCR) HIV-1 RNA PCR copies/ml HIV-1 RNA (PCR) log 09/21/20 09/21/20 09/21/20 Unknown Unknown Unknown WBC RBC 3.56 L Hgb 11.3 L Hct 33.2 L MCV MCH MCHC Plt Count 125 L Lymph % (Auto) [place] % (Auto) Lymph # (Auto) [place] # (Auto) Seg Neutrophils % Seg Neuts % (Manual) 90.0 H Lymphocytes % (Manual) 8.0 L Monocytes % (Manual) Nucleated RBC % 1.0 H Seg Neutrophils # Seg Neutrophils # Man 9.4 H Abs Lymphs (Manual) Lymphocytes # (Manual) 0.8 L PT 16.8 H INR 1.36 H APTT D-Dimer Heparin Anti-Xa Level ABG pH POC ABG pCO2 POC ABG pO2 ABG Oxyhemoglobin ABG Sodium ABG Potassium ABG Glucose Carboxyhemoglobin Sodium Chloride Carbon Dioxide BUN 83 H Creatinine 4.3 H Glucose 163 H POC Glucose Calcium Phosphorus Ferritin Total Bilirubin 2.40 H AST ALT 57 H Alkaline Phosphatase < 5 L Lactate Dehydrogenase Total Creatine Kinase Troponin T C-Reactive Protein NT-Pro-B Natriuret Pep Total Protein Albumin 1.9 L Cholesterol LDL Cholesterol Direct HDL Cholesterol PTH Intact Arterial Blood Glucose Urine WBC (Auto) Urine Creatinine Heparin-induced Plt Ab Lymph Enumerat CD4/CD8 Absolute CD3 Count Absolute CD4 Count % CD8 Cells Absolute CD8 Count Absolute CD19 Count Coronavirus (PCR) HIV-1 RNA PCR copies/ml HIV-1 RNA (PCR) log 09/22/20 09/22/20 09/22/20 05:38 05:38 05:38 WBC 15.8 H RBC 3.36 L Hgb 10.8 L Hct 31.0 L MCV MCH MCHC 35 H Plt Count 68 L Lymph % (Auto) 3.1 L [place] % (Auto) 10.7 H Lymph # (Auto) 0.5 L [place] # (Auto) 1.7 H Seg Neutrophils % 85.9 H Seg Neuts % (Manual) Lymphocytes % (Manual) Monocytes % (Manual) Nucleated RBC % Seg Neutrophils # 13.6 H Seg Neutrophils # Man Abs Lymphs (Manual) Lymphocytes # (Manual) PT INR APTT D-Dimer 3281.49 H Heparin Anti-Xa Level ABG pH POC ABG pCO2 POC ABG pO2 ABG Oxyhemoglobin ABG Sodium ABG Potassium ABG Glucose Carboxyhemoglobin Sodium Chloride Carbon Dioxide BUN 61 H Creatinine 3.1 H Glucose 129 H POC Glucose Calcium Phosphorus Ferritin Total Bilirubin AST ALT Alkaline Phosphatase Lactate Dehydrogenase 277 H Total Creatine Kinase Troponin T C-Reactive Protein 6.60 H NT-Pro-B Natriuret Pep Total Protein Albumin Cholesterol LDL Cholesterol Direct HDL Cholesterol PTH Intact Arterial Blood Glucose Urine WBC (Auto) Urine Creatinine Heparin-induced Plt Ab Lymph Enumerat CD4/CD8 Absolute CD3 Count Absolute CD4 Count % CD8 Cells Absolute CD8 Count Absolute CD19 Count Coronavirus (PCR) HIV-1 RNA PCR copies/ml HIV-1 RNA (PCR) log 09/22/20 09/22/20 09/22/20 05:38 05:44 11:26 WBC RBC Hgb Hct MCV MCH MCHC Plt Count Lymph % (Auto) [place] % (Auto) Lymph # (Auto) [place] # (Auto) Seg Neutrophils % Seg Neuts % (Manual) Lymphocytes % (Manual) Monocytes % (Manual) Nucleated RBC % Seg Neutrophils # Seg Neutrophils # Man Abs Lymphs (Manual) Lymphocytes # (Manual) PT INR APTT D-Dimer Heparin Anti-Xa Level ABG pH POC ABG pCO2 POC ABG pO2 ABG Oxyhemoglobin ABG Sodium ABG Potassium ABG Glucose Carboxyhemoglobin Sodium Chloride Carbon Dioxide BUN Creatinine Glucose POC Glucose 112 H 131 H Calcium Phosphorus Ferritin 927.8 H Total Bilirubin AST ALT Alkaline Phosphatase Lactate Dehydrogenase Total Creatine Kinase Troponin T C-Reactive Protein NT-Pro-B Natriuret Pep Total Protein Albumin Cholesterol LDL Cholesterol Direct HDL Cholesterol PTH Intact Arterial Blood Glucose Urine WBC (Auto) Urine Creatinine Heparin-induced Plt Ab Lymph Enumerat CD4/CD8 Absolute CD3 Count Absolute CD4 Count % CD8 Cells Absolute CD8 Count Absolute CD19 Count Coronavirus (PCR) HIV-1 RNA PCR copies/ml HIV-1 RNA (PCR) log 09/22/20 09/22/20 09/22/20 15:12 15:12 15:12 WBC RBC Hgb Hct MCV MCH MCHC Plt Count Lymph % (Auto) [place] % (Auto) Lymph # (Auto) [place] # (Auto) Seg Neutrophils % Seg Neuts % (Manual) Lymphocytes % (Manual) Monocytes % (Manual) Nucleated RBC % Seg Neutrophils # Seg Neutrophils # Man Abs Lymphs (Manual) Lymphocytes # (Manual) PT 17.3 H INR 1.42 H APTT D-Dimer Heparin Anti-Xa Level ABG pH POC ABG pCO2 POC ABG pO2 ABG Oxyhemoglobin ABG Sodium ABG Potassium ABG Glucose Carboxyhemoglobin Sodium Chloride Carbon Dioxide BUN Creatinine 3.0 H Glucose POC Glucose Calcium Phosphorus Ferritin Total Bilirubin AST ALT Alkaline Phosphatase Lactate Dehydrogenase Total Creatine Kinase Troponin T C-Reactive Protein NT-Pro-B Natriuret Pep Total Protein Albumin Cholesterol LDL Cholesterol Direct HDL Cholesterol PTH Intact Arterial Blood Glucose Urine WBC (Auto) Urine Creatinine Heparin-induced Plt Ab Weak positive H Lymph Enumerat CD4/CD8 Absolute CD3 Count Absolute CD4 Count % CD8 Cells Absolute CD8 Count Absolute CD19 Count Coronavirus (PCR) HIV-1 RNA PCR copies/ml HIV-1 RNA (PCR) log 09/22/20 09/22/20 09/23/20 16:53 23:55 04:36 WBC 14.2 H RBC 3.05 L Hgb 9.8 L Hct 28.4 L MCV MCH MCHC Plt Count 39 L Lymph % (Auto) [place] % (Auto) Lymph # (Auto) [place] # (Auto) Seg Neutrophils % Seg Neuts % (Manual) 91.0 H Lymphocytes % (Manual) 2.0 L Monocytes % (Manual) Nucleated RBC % Seg Neutrophils # Seg Neutrophils # Man 12.9 H Abs Lymphs (Manual) Lymphocytes # (Manual) 0.3 L PT INR APTT D-Dimer Heparin Anti-Xa Level ABG pH POC ABG pCO2 POC ABG pO2 ABG Oxyhemoglobin ABG Sodium ABG Potassium ABG Glucose Carboxyhemoglobin Sodium Chloride Carbon Dioxide BUN Creatinine Glucose POC Glucose 138 H 171 H Calcium Phosphorus Ferritin Total Bilirubin AST ALT Alkaline Phosphatase Lactate Dehydrogenase Total Creatine Kinase Troponin T C-Reactive Protein NT-Pro-B Natriuret Pep Total Protein Albumin Cholesterol LDL Cholesterol Direct HDL Cholesterol PTH Intact Arterial Blood Glucose Urine WBC (Auto) Urine Creatinine Heparin-induced Plt Ab Lymph Enumerat CD4/CD8 Absolute CD3 Count Absolute CD4 Count % CD8 Cells Absolute CD8 Count Absolute CD19 Count Coronavirus (PCR) HIV-1 RNA PCR copies/ml HIV-1 RNA (PCR) log 09/23/20 09/23/20 09/23/20 04:36 05:41 11:38 WBC RBC Hgb Hct MCV MCH MCHC Plt Count Lymph % (Auto) [place] % (Auto) Lymph # (Auto) [place] # (Auto) Seg Neutrophils % Seg Neuts % (Manual) Lymphocytes % (Manual) Monocytes % (Manual) Nucleated RBC % Seg Neutrophils # Seg Neutrophils # Man Abs Lymphs (Manual) Lymphocytes # (Manual) PT INR APTT D-Dimer Heparin Anti-Xa Level ABG pH POC ABG pCO2 POC ABG pO2 ABG Oxyhemoglobin ABG Sodium ABG Potassium ABG Glucose Carboxyhemoglobin Sodium Chloride Carbon Dioxide BUN 76 H Creatinine 3.1 H Glucose 157 H POC Glucose 136 H 141 H Calcium Phosphorus Ferritin Total Bilirubin AST ALT Alkaline Phosphatase Lactate Dehydrogenase Total Creatine Kinase Troponin T C-Reactive Protein NT-Pro-B Natriuret Pep Total Protein Albumin Cholesterol LDL Cholesterol Direct HDL Cholesterol PTH Intact Arterial Blood Glucose Urine WBC (Auto) Urine Creatinine Heparin-induced Plt Ab Lymph Enumerat CD4/CD8 Absolute CD3 Count Absolute CD4 Count % CD8 Cells Absolute CD8 Count Absolute CD19 Count Coronavirus (PCR) HIV-1 RNA PCR copies/ml HIV-1 RNA (PCR) log 09/23/20 09/23/20 09/24/20 17:09 23:51 05:00 WBC 24.2 H RBC 3.23 L Hgb 10.0 L Hct 29.7 L MCV MCH MCHC Plt Count 74 L Lymph % (Auto) [place] % (Auto) Lymph # (Auto) [place] # (Auto) Seg Neutrophils % Seg Neuts % (Manual) Lymphocytes % (Manual) Monocytes % (Manual) Nucleated RBC % Seg Neutrophils # Seg Neutrophils # Man Abs Lymphs (Manual) Lymphocytes # (Manual) PT INR APTT D-Dimer Heparin Anti-Xa Level ABG pH POC ABG pCO2 POC ABG pO2 ABG Oxyhemoglobin ABG Sodium ABG Potassium ABG Glucose Carboxyhemoglobin Sodium Chloride Carbon Dioxide BUN Creatinine Glucose POC Glucose 128 H 128 H Calcium Phosphorus Ferritin Total Bilirubin AST ALT Alkaline Phosphatase Lactate Dehydrogenase Total Creatine Kinase Troponin T C-Reactive Protein NT-Pro-B Natriuret Pep Total Protein Albumin Cholesterol LDL Cholesterol Direct HDL Cholesterol PTH Intact Arterial Blood Glucose Urine WBC (Auto) Urine Creatinine Heparin-induced Plt Ab Lymph Enumerat CD4/CD8 Absolute CD3 Count Absolute CD4 Count % CD8 Cells Absolute CD8 Count Absolute CD19 Count Coronavirus (PCR) HIV-1 RNA PCR copies/ml HIV-1 RNA (PCR) log 09/24/20 09/24/20 09/24/20 05:00 05:00 05:00 WBC RBC Hgb Hct MCV MCH MCHC Plt Count Lymph % (Auto) [place] % (Auto) Lymph # (Auto) [place] # (Auto) Seg Neutrophils % Seg Neuts % (Manual) Lymphocytes % (Manual) Monocytes % (Manual) Nucleated RBC % Seg Neutrophils # Seg Neutrophils # Man Abs Lymphs (Manual) Lymphocytes # (Manual) PT INR APTT D-Dimer 1772.86 H Heparin Anti-Xa Level ABG pH POC ABG pCO2 POC ABG pO2 ABG Oxyhemoglobin ABG Sodium ABG Potassium ABG Glucose Carboxyhemoglobin Sodium Chloride 107.1 H Carbon Dioxide BUN 90 H Creatinine 3.1 H Glucose 118 H POC Glucose Calcium Phosphorus Ferritin 1190.0 H Total Bilirubin AST ALT Alkaline Phosphatase Lactate Dehydrogenase 276 H Total Creatine Kinase Troponin T C-Reactive Protein 4.20 H NT-Pro-B Natriuret Pep Total Protein Albumin Cholesterol LDL Cholesterol Direct HDL Cholesterol PTH Intact Arterial Blood Glucose Urine WBC (Auto) Urine Creatinine Heparin-induced Plt Ab Lymph Enumerat CD4/CD8 Absolute CD3 Count Absolute CD4 Count % CD8 Cells Absolute CD8 Count Absolute CD19 Count Coronavirus (PCR) HIV-1 RNA PCR copies/ml HIV-1 RNA (PCR) log 09/24/20 09/24/20 09/24/20 05:12 11:25 12:09 WBC RBC Hgb Hct MCV MCH MCHC Plt Count Lymph % (Auto) [place] % (Auto) Lymph # (Auto) [place] # (Auto) Seg Neutrophils % Seg Neuts % (Manual) Lymphocytes % (Manual) Monocytes % (Manual) Nucleated RBC % Seg Neutrophils # Seg Neutrophils # Man Abs Lymphs (Manual) Lymphocytes # (Manual) PT INR APTT D-Dimer Heparin Anti-Xa Level ABG pH POC ABG pCO2 POC ABG pO2 ABG Oxyhemoglobin ABG Sodium ABG Potassium ABG Glucose Carboxyhemoglobin Sodium Chloride Carbon Dioxide BUN Creatinine 3.1 H Glucose POC Glucose 114 H 110 H Calcium Phosphorus Ferritin Total Bilirubin AST ALT Alkaline Phosphatase Lactate Dehydrogenase Total Creatine Kinase Troponin T C-Reactive Protein NT-Pro-B Natriuret Pep Total Protein Albumin Cholesterol LDL Cholesterol Direct HDL Cholesterol PTH Intact Arterial Blood Glucose Urine WBC (Auto) Urine Creatinine Heparin-induced Plt Ab Lymph Enumerat CD4/CD8 Absolute CD3 Count Absolute CD4 Count % CD8 Cells Absolute CD8 Count Absolute CD19 Count Coronavirus (PCR) HIV-1 RNA PCR copies/ml HIV-1 RNA (PCR) log 09/24/20 09/24/20 09/24/20 12:13 12:13 17:41 WBC 20.8 H RBC 3.04 L Hgb 9.5 L Hct 28.0 L MCV MCH MCHC Plt Count 78 L Lymph % (Auto) [place] % (Auto) Lymph # (Auto) [place] # (Auto) Seg Neutrophils % Seg Neuts % (Manual) Lymphocytes % (Manual) Monocytes % (Manual) Nucleated RBC % Seg Neutrophils # Seg Neutrophils # Man Abs Lymphs (Manual) Lymphocytes # (Manual) PT 15.7 H INR 1.27 H APTT D-Dimer Heparin Anti-Xa Level ABG pH POC ABG pCO2 POC ABG pO2 ABG Oxyhemoglobin ABG Sodium ABG Potassium ABG Glucose Carboxyhemoglobin Sodium Chloride Carbon Dioxide BUN Creatinine Glucose POC Glucose 133 H Calcium Phosphorus Ferritin Total Bilirubin AST ALT Alkaline Phosphatase Lactate Dehydrogenase Total Creatine Kinase Troponin T C-Reactive Protein NT-Pro-B Natriuret Pep Total Protein Albumin Cholesterol LDL Cholesterol Direct HDL Cholesterol PTH Intact Arterial Blood Glucose Urine WBC (Auto) Urine Creatinine Heparin-induced Plt Ab Lymph Enumerat CD4/CD8 Absolute CD3 Count Absolute CD4 Count % CD8 Cells Absolute CD8 Count Absolute CD19 Count Coronavirus (PCR) HIV-1 RNA PCR copies/ml HIV-1 RNA (PCR) log 09/24/20 09/25/20 09/25/20 23:34 06:40 06:40 WBC RBC Hgb Hct MCV MCH MCHC Plt Count Lymph % (Auto) [place] % (Auto) Lymph # (Auto) [place] # (Auto) Seg Neutrophils % Seg Neuts % (Manual) Lymphocytes % (Manual) Monocytes % (Manual) Nucleated RBC % Seg Neutrophils # Seg Neutrophils # Man Abs Lymphs (Manual) Lymphocytes # (Manual) PT INR APTT D-Dimer Heparin Anti-Xa Level ABG pH POC ABG pCO2 POC ABG pO2 ABG Oxyhemoglobin ABG Sodium ABG Potassium ABG Glucose Carboxyhemoglobin Sodium Chloride 109.0 H Carbon Dioxide BUN 98 H Creatinine 3.0 H 3.0 H Glucose 111 H POC Glucose 113 H Calcium Phosphorus Ferritin Total Bilirubin AST ALT Alkaline Phosphatase Lactate Dehydrogenase Total Creatine Kinase Troponin T C-Reactive Protein NT-Pro-B Natriuret Pep Total Protein Albumin Cholesterol LDL Cholesterol Direct HDL Cholesterol PTH Intact Arterial Blood Glucose Urine WBC (Auto) Urine Creatinine Heparin-induced Plt Ab Lymph Enumerat CD4/CD8 Absolute CD3 Count Absolute CD4 Count % CD8 Cells Absolute CD8 Count Absolute CD19 Count Coronavirus (PCR) HIV-1 RNA PCR copies/ml HIV-1 RNA (PCR) log 09/25/20 09/25/20 09/25/20 10:45 12:45 18:03 WBC 20.7 H RBC 3.33 L Hgb 10.2 L Hct 31.3 L MCV MCH MCHC Plt Count 139 L Lymph % (Auto) [place] % (Auto) Lymph # (Auto) [place] # (Auto) Seg Neutrophils % Seg Neuts % (Manual) Lymphocytes % (Manual) Monocytes % (Manual) Nucleated RBC % Seg Neutrophils # Seg Neutrophils # Man Abs Lymphs (Manual) Lymphocytes # (Manual) PT INR APTT D-Dimer Heparin Anti-Xa Level ABG pH POC ABG pCO2 POC ABG pO2 ABG Oxyhemoglobin ABG Sodium ABG Potassium ABG Glucose Carboxyhemoglobin Sodium Chloride Carbon Dioxide BUN Creatinine Glucose POC Glucose 108 H 114 H Calcium Phosphorus Ferritin Total Bilirubin AST ALT Alkaline Phosphatase Lactate Dehydrogenase Total Creatine Kinase Troponin T C-Reactive Protein NT-Pro-B Natriuret Pep Total Protein Albumin Cholesterol LDL Cholesterol Direct HDL Cholesterol PTH Intact Arterial Blood Glucose Urine WBC (Auto) Urine Creatinine Heparin-induced Plt Ab Lymph Enumerat CD4/CD8 Absolute CD3 Count Absolute CD4 Count % CD8 Cells Absolute CD8 Count Absolute CD19 Count Coronavirus (PCR) HIV-1 RNA PCR copies/ml HIV-1 RNA (PCR) log 09/25/20 09/26/20 09/26/20 23:29 05:00 07:06 WBC 17.0 H RBC 3.10 L Hgb 9.6 L Hct 28.8 L MCV MCH MCHC Plt Count Lymph % (Auto) [place] % (Auto) Lymph # (Auto) [place] # (Auto) Seg Neutrophils % Seg Neuts % (Manual) Lymphocytes % (Manual) Monocytes % (Manual) Nucleated RBC % Seg Neutrophils # Seg Neutrophils # Man Abs Lymphs (Manual) Lymphocytes # (Manual) PT INR APTT D-Dimer Heparin Anti-Xa Level ABG pH POC ABG pCO2 POC ABG pO2 ABG Oxyhemoglobin ABG Sodium ABG Potassium ABG Glucose Carboxyhemoglobin Sodium Chloride Carbon Dioxide BUN Creatinine Glucose POC Glucose 111 H 115 H Calcium Phosphorus Ferritin Total Bilirubin AST ALT Alkaline Phosphatase Lactate Dehydrogenase Total Creatine Kinase Troponin T C-Reactive Protein NT-Pro-B Natriuret Pep Total Protein Albumin Cholesterol LDL Cholesterol Direct HDL Cholesterol PTH Intact Arterial Blood Glucose Urine WBC (Auto) Urine Creatinine Heparin-induced Plt Ab Lymph Enumerat CD4/CD8 Absolute CD3 Count Absolute CD4 Count % CD8 Cells Absolute CD8 Count Absolute CD19 Count Coronavirus (PCR) HIV-1 RNA PCR copies/ml HIV-1 RNA (PCR) log 09/26/20 09/26/20 09/27/20 07:06 17:26 04:00 WBC RBC Hgb Hct MCV MCH MCHC Plt Count Lymph % (Auto) [place] % (Auto) Lymph # (Auto) [place] # (Auto) Seg Neutrophils % Seg Neuts % (Manual) Lymphocytes % (Manual) Monocytes % (Manual) Nucleated RBC % Seg Neutrophils # Seg Neutrophils # Man Abs Lymphs (Manual) Lymphocytes # (Manual) PT INR APTT D-Dimer Heparin Anti-Xa Level ABG pH POC ABG pCO2 POC ABG pO2 ABG Oxyhemoglobin ABG Sodium ABG Potassium ABG Glucose Carboxyhemoglobin Sodium Chloride Carbon Dioxide BUN 69 H 67 H Creatinine 2.2 H 2.3 H Glucose 107 H 121 H POC Glucose 124 H Calcium Phosphorus Ferritin Total Bilirubin AST ALT Alkaline Phosphatase Lactate Dehydrogenase Total Creatine Kinase Troponin T C-Reactive Protein NT-Pro-B Natriuret Pep Total Protein Albumin Cholesterol LDL Cholesterol Direct HDL Cholesterol PTH Intact Arterial Blood Glucose Urine WBC (Auto) Urine Creatinine Heparin-induced Plt Ab Lymph Enumerat CD4/CD8 Absolute CD3 Count Absolute CD4 Count % CD8 Cells Absolute CD8 Count Absolute CD19 Count Coronavirus (PCR) HIV-1 RNA PCR copies/ml HIV-1 RNA (PCR) log 09/27/20 09/27/20 09/27/20 04:00 05:00 17:11 WBC 14.6 H RBC 2.72 L Hgb 8.6 L Hct 25.8 L MCV 95 H MCH MCHC Plt Count Lymph % (Auto) 4.3 L [place] % (Auto) Lymph # (Auto) 0.6 L [place] # (Auto) 0.9 H Seg Neutrophils % 89.6 H Seg Neuts % (Manual) Lymphocytes % (Manual) Monocytes % (Manual) Nucleated RBC % Seg Neutrophils # 13.1 H Seg Neutrophils # Man Abs Lymphs (Manual) Lymphocytes # (Manual) PT INR APTT D-Dimer Heparin Anti-Xa Level ABG pH POC ABG pCO2 POC ABG pO2 ABG Oxyhemoglobin ABG Sodium ABG Potassium ABG Glucose Carboxyhemoglobin Sodium Chloride Carbon Dioxide BUN Creatinine 2.4 H Glucose POC Glucose 132 H Calcium Phosphorus Ferritin Total Bilirubin AST ALT Alkaline Phosphatase Lactate Dehydrogenase Total Creatine Kinase Troponin T C-Reactive Protein NT-Pro-B Natriuret Pep Total Protein Albumin Cholesterol LDL Cholesterol Direct HDL Cholesterol PTH Intact Arterial Blood Glucose Urine WBC (Auto) Urine Creatinine Heparin-induced Plt Ab Lymph Enumerat CD4/CD8 Absolute CD3 Count Absolute CD4 Count % CD8 Cells Absolute CD8 Count Absolute CD19 Count Coronavirus (PCR) HIV-1 RNA PCR copies/ml HIV-1 RNA (PCR) log 09/28/20 09/28/20 09/29/20 04:46 04:46 04:45 WBC 14.6 H RBC 2.66 L Hgb 8.4 L Hct 25.3 L MCV 95 H MCH MCHC Plt Count Lymph % (Auto) [place] % (Auto) Lymph # (Auto) [place] # (Auto) Seg Neutrophils % Seg Neuts % (Manual) Lymphocytes % (Manual) Monocytes % (Manual) Nucleated RBC % Seg Neutrophils # Seg Neutrophils # Man Abs Lymphs (Manual) Lymphocytes # (Manual) PT INR APTT D-Dimer Heparin Anti-Xa Level ABG pH POC ABG pCO2 POC ABG pO2 ABG Oxyhemoglobin ABG Sodium ABG Potassium ABG Glucose Carboxyhemoglobin Sodium Chloride Carbon Dioxide BUN 71 H 63 H Creatinine 2.3 H 2.2 H Glucose 105 H POC Glucose Calcium Phosphorus Ferritin Total Bilirubin AST ALT Alkaline Phosphatase Lactate Dehydrogenase Total Creatine Kinase Troponin T C-Reactive Protein NT-Pro-B Natriuret Pep Total Protein Albumin Cholesterol LDL Cholesterol Direct HDL Cholesterol PTH Intact Arterial Blood Glucose Urine WBC (Auto) Urine Creatinine Heparin-induced Plt Ab Lymph Enumerat CD4/CD8 Absolute CD3 Count Absolute CD4 Count % CD8 Cells Absolute CD8 Count Absolute CD19 Count Coronavirus (PCR) HIV-1 RNA PCR copies/ml HIV-1 RNA (PCR) log 09/29/20 09/29/20 09/29/20 04:45 05:43 17:50 WBC RBC 2.92 L Hgb 9.6 L Hct 28.1 L MCV 96 H MCH 33 H MCHC Plt Count Lymph % (Auto) [place] % (Auto) Lymph # (Auto) [place] # (Auto) Seg Neutrophils % Seg Neuts % (Manual) Lymphocytes % (Manual) Monocytes % (Manual) Nucleated RBC % Seg Neutrophils # Seg Neutrophils # Man Abs Lymphs (Manual) Lymphocytes # (Manual) PT INR APTT D-Dimer Heparin Anti-Xa Level ABG pH POC ABG pCO2 POC ABG pO2 ABG Oxyhemoglobin ABG Sodium ABG Potassium ABG Glucose Carboxyhemoglobin Sodium Chloride Carbon Dioxide BUN Creatinine Glucose POC Glucose 69 L 132 H Calcium Phosphorus Ferritin Total Bilirubin AST ALT Alkaline Phosphatase Lactate Dehydrogenase Total Creatine Kinase Troponin T C-Reactive Protein NT-Pro-B Natriuret Pep Total Protein Albumin Cholesterol LDL Cholesterol Direct HDL Cholesterol PTH Intact Arterial Blood Glucose Urine WBC (Auto) Urine Creatinine Heparin-induced Plt Ab Lymph Enumerat CD4/CD8 Absolute CD3 Count Absolute CD4 Count % CD8 Cells Absolute CD8 Count Absolute CD19 Count Coronavirus (PCR) HIV-1 RNA PCR copies/ml HIV-1 RNA (PCR) log 09/30/20 09/30/20 04:47 04:47 WBC RBC 2.47 L Hgb 8.1 L Hct 23.9 L MCV 97 H MCH 33 H MCHC Plt Count Lymph % (Auto) [place] % (Auto) Lymph # (Auto) [place] # (Auto) Seg Neutrophils % Seg Neuts % (Manual) Lymphocytes % (Manual) Monocytes % (Manual) Nucleated RBC % Seg Neutrophils # Seg Neutrophils # Man Abs Lymphs (Manual) Lymphocytes # (Manual) PT INR APTT D-Dimer Heparin Anti-Xa Level ABG pH POC ABG pCO2 POC ABG pO2 ABG Oxyhemoglobin ABG Sodium ABG Potassium ABG Glucose Carboxyhemoglobin Sodium Chloride Carbon Dioxide 31 H BUN 63 H Creatinine 2.1 H Glucose POC Glucose Calcium Phosphorus Ferritin Total Bilirubin AST ALT Alkaline Phosphatase Lactate Dehydrogenase Total Creatine Kinase Troponin T C-Reactive Protein NT-Pro-B Natriuret Pep Total Protein 5.9 L Albumin 2.2 L Cholesterol LDL Cholesterol Direct HDL Cholesterol PTH Intact Arterial Blood Glucose Urine WBC (Auto) Urine Creatinine Heparin-induced Plt Ab Lymph Enumerat CD4/CD8 Absolute CD3 Count Absolute CD4 Count % CD8 Cells Absolute CD8 Count Absolute CD19 Count Coronavirus (PCR) HIV-1 RNA PCR copies/ml HIV-1 RNA (PCR) log Allied health notes reviewed: nursing
--- NOTE | 2020-09-30 13:40 | Progress Note ---
Assessment and Plan Cultures: 09/18/2020 COVID-19 PCR: Positive 09/18/2020 blood culture: E.coli 09/18/2020 Urine culture: E.coli 09/19/2020 sputum culture: Contaminated with oral secretions 09/19/2020 HIV RNA PCR: 67 copies per mL Assessment: 70-year-old male with history of HIV infection (unknown CD4/VL/ART compliance), hypertension, atrial fibrillation on Xarelto, initially admitted on 09/15/2020 RVR A. fib, LOLI, left AMA, came back to the ED on 09/17/2020 secondary to worsening shortness of breath for 3 days: #Severe sepsis with septic shock: Shock resolved. Remains with leukocytosis. Secondary to E.coli bacteremia likely from UTI. HIDA scan negative for acute cholecystitis. #E.coli bacteremia: Likely from UTI. RUQ US did show a large GB stone. Labs initially with elevated LFTs and bilirubin. HIDA negative. Was seen by Gen Surg. #UTI: Urinalysis with 71 WBCs and moderate leukocyte esterase. Urine culture with E.coli #COVID-19: PCR positive. On supplemental oxygen. Was not given remdesivir due to renal failure. #LOLI: renally dose meds and antimicrobials. On HD. #Acute respiratory hypoxic failure: Remains on 3 L #HIV: listed meds are Descovy + Tivicay. Likely good control since his HIV RNA PCR came back at 67 copies/ml. CD4 is 70 but 30%, overall count is low likely due to steroids. OI prophylaxis is not needed. #Acute encephalopathy: ?multifactorial. CT head unremarkable for acute process. Remains confused. Recommendations: -Completed IV ceftriaxone 2 g daily ending 09/28/2020 (total 10 days) -Completed steroid course for COVID-19 -continue renally dosed antiretroviral therapy based on formulary/therapeutic interchange: TDF + FTC + DTG -Monitor off antibiotics Will follow. Arlene Patel MD Infectious Diseases [employer] [facility] ([facility] M [phone] O [phone] Subjective Date of service: 09/30/20 Principal diagnosis: Acute Resp Fail, Sepsis, AF with RVR Interval history: Patient feels okay. Slightly confused. No fever. Objective - Exam Narrative Exam: General appearance: Alert in no acute distress Eyes: anicteric sclerae, moist conjunctivae; no lid-lag; PERRLA HENT: Normocephalic, Atraumatic; normal external ears, nares open, oropharynx limited partially edentulous Neck: supple, tracheal midline, no JVD Lungs: Bilateral scattered rhonchi CV: RRR Abdomen: Soft, nontender Extremities: No edema Skin: No rash. Psych: Anxious Neuro: Alert, confused - Constitutional Vitals: Vital Signs Temp Pulse Resp BP Pulse Ox 97.7 F 122 H 12 102/62 99 09/30/20 12:29 09/30/20 11:00 09/30/20 11:00 09/30/20 11:00 09/30/20 10:00 Temperature -Last 24 Hours Temperature 97.7 F Temperature 98.1 F Temperature 97.5 F Temperature 97.4 F Temperature 97.7 F Temperature 97.5 F - Labs CBC & Chem 7: 09/30/20 04:47 09/30/20 04:47 Labs: Abnormal lab results 09/29/20 09/30/20 09/30/20 Range/Units 17:50 04:47 04:47 RBC 2.47 L (3.65-5.03) M/mm3 Hgb 8.1 L (11.8-15.2) gm/dl Hct 23.9 L (35.5-45.6) % MCV 97 H (84-94) fl MCH 33 H (28-32) pg Carbon Dioxide 31 H (22-30) mmol/L BUN 63 H (9-20) mg/dL Creatinine 2.1 H (0.8-1.3) mg/dL POC Glucose 132 H (70-105) mg/dL Total Protein 5.9 L (6.3-8.2) g/dL Albumin 2.2 L (3.9-5) g/dL
--- NOTE | 2020-09-30 14:49 | Progress Note ---
Assessment and Plan Assessment and plan: This is 70-year-old male with HIV, HTN, and atrial fibrillation (currently on therapeutic anticoagulation with Xarelto) presents the emergency department on 09/17 with complaints of shortness of breath over the past 3 days and on arrival of EMS patient was found to have a pulse oximetry of 85% on room air. He was placed on supplemental oxygenation. Of note patient was admitted on 09/15 with similar complaints and found to have A. fib with RVR, hyponatremia, hypomagnesemia and acute kidney injury and left AMA. He was admitted to the hospital service with atrial fibrillation with RVR, SIRs, metabolic acidosis, acute kidney injury, acute hypoxic respiratory failure, hypotension, and CHF . Cardiology, CCM and nephrology were consulted. 09/18/2020. Await echocardiogram to assess for diastolic versus systolic etiology. Patient with elevated BNP greater than 18,000. Patient apparently was admitted approximately 3 days ago but left AMA. Cardiology consulted for heart failure, A. fib with RVR and elevated troponin. Patient denies chest pain. Also, patient with elevated creatinine of 4.7 with creatinine 2.8 on recent admission. We do not have a previous creatinine as a baseline to compar e. Nephrology consultation pending. Follow-up renal ultrasound. Patient with coagulopathy and INR 3.04. Unsure if patient was on anticoagulation for A. fib. 09/19/2020. Patient likely with vasomotor acute kidney injury in the setting of shock. Follow-up urine studies and renal ultrasound. Creatinine continues to worsen. Nephrology following. Etiology of respiratory failure secondary to hea rt failure with Covid testing pending. Elevated troponin suggestive of NSTEMI. Continue diuresis with Lasix. Continue IV amiodarone for rate control of A. fib with RVR. Continue heparin. Follow-up echocardiogram. Cardiology following. 09/20/2020: This time my examination patient was on BiPAP therapy and now is on nasal cannula. Patient remains on amiodarone drip with heart rate in the 130s t o 140s and vasopressor support with Levophed. Today nephrology will initiate hemodialysis given worsening renal function studies and has stopped diuresis with Lasix. ID resumed antiretroviral therapy and ordered a HIDA scan. Today the patient received a temporary Vas-Cath and is COVID-19 PCR resulted as positive. Patient will be started on vitamin C, vitamin D and zinc and dexamethasone given need for supplemental oxygenation. 09/21: Ecoli UTI and bacteremia and ID has changed him to meropenem, Patient received HD yesterday and patient remains on amiodarone drip. He is off the floor to obtain a HIDA scan. 09/22: HIDA scan did not show acute cholecystitis. Ecoli bacteremia is sensitive to ceftriaxone and ID changed his abx. Mentation is better. BP is liable. Remains on levophed and vasopressin. We started midodrine. HIT panel pending and hem/onc consulted. 09/23: Patient noted to have unequal pupils with left >right, STAT CT head ordered. Nephro will withhold hemodialysis and assess needs as kidney function has gotten better. Patient symptomatically follows commands and is on nasal cannula. Cardiology stopped his Eliquis due to persistent thrombocytopenia. 09/24: Patient remains confused, pupils still unequal. Started on eliquis 2.5 today and he will be transferred to IMCU. 09/25: Patient remains confused, had Bipap overnight, CT abd/pelvis ordered per ID recommendations given persistent leukocytosis. Cr remains unchanged but BUN in rising. Nephrology is on the case. 09/26/2020; patient was confused and on 3 L of oxygen. ID is following the patient and continue with antiretroviral medications, no OI prophylaxis needed. Patient is on IV Rocephin lasted 09/28 per ID recommendation for E. coli bacteremia. ID ordered CT abdomen and pelvis. We will follow the results. Sulaiman wild is being followed by cardiology and they recommend to resume Eliquis with 2.5 mg p.o. twice daily, thrombocytopenia is improving. Patient is on amiodarone and metoprolol. Patient is being followed by nephrology and is on dialysis. Blood pressure was normal this morning. Patient was tachycardic in A. fib with RVR. CT head was normal. Prognosis is guarded. Continue IMCU care. 09/27: Continue IMCU care, still with unresolved Afib, will continue to adjust medications for better control. 09/28: Start Seroquel DUE TO THE AGITATION, Discussed with daughter, will work on getting Afib better controlled. Per daughter the confusion is new, although some improvement noted today. Patient will benefit from SNF 09/29: Seroquel started today as it was not started yesterday, await PT/OT, Yasmin veronica to monitor mental status, will transfer to Tele. Anticipate discharge when bed available. 09/30: Discussed extensively with the daughter about her clinical condition, Seroquel discontinued as patient did not tolerate, still with low BP responded to Fluids. Hold BB and continue to monitor and redirect. Discussed with Nursing staff. Septic Shock Acute hypoxemic respiratory failure 2/2 to volume overload/chf exacerbation Acute systolic heart failure exacerbation Atrial fibrillation with RVR Acute on chronic kidney injury Hypotension Anemia Thrombocytopenia E coli bacteremia Delirium related to critical illness. E. coli urinary tract infection NSTEMI Elevated Ddimer Leukocytosis HIV, asymptomatic HTN Coagulopathy Transaminitis -Cardiology, CCM, Nephrology, ID, general surgery, heme/onc consulted, appreciate recommendations -09/20 COVID-19 PCR positive -Droplet/isolation precautions -Dexamethasone 6 mg p.o. (09/20-09/30) -Vitamin D, vitamin C, zinc -Vasopressor support with levophed and vasopressin, midodrine -09/17 CXR shows borderline heart size, mild central pulmonary venous congestion -09/17 renal ultrasound shows no acute findings -09/18 echocardiogram shows left ventricle systolic function mildly decreased, LVEF of 40 to 45% with mild concentric left ventricle hypertrophy, trace MR, mild TR, trace MD -09/19 abdominal ultrasound shows large gallstone within the gallbladder, no pericholecystic fluid, gallbladder wall upper limits of normal measuring 3 mm -09/21 HIDA scan shows no evidence of acute cholecystitis -09/21 BLE Dopplar US no evidence for DVT -09/23 CT head shows no acute intracranial hemorrhage or parenchymal abnormality, mild diffuse brain atrophy with commensurate ventricular enlargement which is likely age appropriate, small frontal scalp lipoma measuring 9 mm in thickness, 4 cm in length, and 4 cm in width., Sinuses and mastoid air cells are clear. -09/17 proBNP 12515 -S/p IV Lasix twice daily -09/20 nephrology initiated the patient on dialysis -Pulmonary hygiene -Bipap qhs -09/25 CT abd/pelvis without contrast pending -PO amiodarone -HIV meds per ID -IV abx therapy -HIT pending -Trend CBC, BMP, LFTs DVT/GI prophylaxis: PPI, SCDs to bilateral lower extremities while in bed, no chemical anticoagulation at this time d/t thrombocytopenia Disposition: IMCU History Interval history: This is 70-year-old male with HIV, HTN, and atrial fibrillation (currently on therapeutic anticoagulation with Xarelto) admitted with atrial fibrillation with RVR, SIRs, metabolic acidosis, acute kidney injury, acute hypoxic respiratory failure, hypotension, and CHF Patient seen and examined, No new issues reported except agitation which has improved, remains on 3 liters of oxygen. Hospitalist Physical - Physical exam Narrative exam: Patient was on 3L of oxygen. The patient appeared well nourished and normally developed. Vital signs as documented. Head exam is unremarkable. No scleral icterus . Neck is without jugular venous distension, thyromegaly, or carotid bruits. Lungs are clear to auscultation. Cardiac exam reveals regular rate and Rhythm. Abdominal exam reveals normal bowel sounds, nontender, no organomegaly. Extremities are nonedematous and both femoral and pedal pulses are normal. PHOTOGRAPHER MODEL: Confused. agitated - Constitutional Vitals: Temp Pulse Resp BP Pulse Ox 97.7 F 140 H 14 71/41 76 L 09/30/20 12:29 09/30/20 13:00 09/30/20 13:00 09/30/20 14:01 09/30/20 12:30 General appearance: Present: no acute distress HEART Score - HEART Score Troponin: Troponin T < 0.010 ng/mL (0.00-0.029) 09/22/20 05:38 Results - Labs CBC & Chem 7: 09/30/20 04:47 09/30/20 04:47 Labs: Laboratory Last Values WBC 9.3 K/mm3 (4.5-11.0) 09/30/20 04:47 RBC 2.47 M/mm3 (3.65-5.03) L 09/30/20 04:47 Hgb 8.1 gm/dl (11.8-15.2) L 09/30/20 04:47 Hct 23.9 % (35.5-45.6) L 09/30/20 04:47 MCV 97 fl (84-94) H 09/30/20 04:47 MCH 33 pg (28-32) H 09/30/20 04:47 MCHC 34 % (32-34) 09/30/20 04:47 RDW 14.2 % (13.2-15.2) 09/30/20 04:47 Plt Count 240 K/mm3 (140-440) 09/30/20 04:47 Lymph % (Auto) 4.3 % (13.4-35.0) L 09/27/20 04:00 Rich % (Auto) 6.0 % (0.0-7.3) 09/27/20 04:00 Eos % (Auto) 0.1 % (0.0-4.3) 09/27/20 04:00 Baso % (Auto) 0.0 % (0.0-1.8) 09/27/20 04:00 Lymph # (Auto) 0.6 K/mm3 (1.2-5.4) L 09/27/20 04:00 Rich # (Auto) 0.9 K/mm3 (0.0-0.8) H 09/27/20 04:00 Eos # (Auto) 0.0 K/mm3 (0.0-0.4) 09/27/20 04:00 Baso # (Auto) 0.0 K/mm3 (0.0-0.1) 09/27/20 04:00 Add Manual Diff Complete 09/23/20 04:36 Total Counted 100 09/23/20 04:36 Seg Neutrophils % 89.6 % (40.0-70.0) H 09/27/20 04:00 Seg Neuts % (Manual) 91.0 % (40.0-70.0) H 09/23/20 04:36 Band Neutrophils % 2.0 % 09/23/20 04:36 Lymphocytes % (Manual) 2.0 % (13.4-35.0) L 09/23/20 04:36 Monocytes % (Manual) 5.0 % (0.0-7.3) 09/23/20 04:36 Nucleated RBC % Not Reportable 09/23/20 04:36 Seg Neutrophils # 13.1 K/mm3 (1.8-7.7) H 09/27/20 04:00 Seg Neutrophils # Man 12.9 K/mm3 (1.8-7.7) H 09/23/20 04:36 Band Neutrophils # 0.3 K/mm3 09/23/20 04:36 Abs Lymphs (Manual) 223 cells/uL (850-3900) L 09/19/20 13:35 Lymphocytes # (Manual) 0.3 K/mm3 (1.2-5.4) L 09/23/20 04:36 Abs React Lymphs (Man) 0.0 K/mm3 09/23/20 04:36 Monocytes # (Manual) 0.7 K/mm3 (0.0-0.8) 09/23/20 04:36 Eosinophils # (Manual) 0.0 K/mm3 (0.0-0.4) 09/23/20 04:36 Basophils # (Manual) 0.0 K/mm3 (0.0-0.1) 09/23/20 04:36 Metamyelocytes # 0.0 K/mm3 09/23/20 04:36 Myelocytes # 0.0 K/mm3 09/23/20 04:36 Promyelocytes # 0.0 K/mm3 09/23/20 04:36 Blast Cells # 0.0 K/mm3 09/23/20 04:36 WBC Morphology Not Reportable 09/23/20 04:36 Hypersegmented Neuts Not Reportable 09/23/20 04:36 Hyposegmented Neuts Not Reportable 09/23/20 04:36 Hypogranular Neuts Not Reportable 09/23/20 04:36 Smudge Cells Not Reportable 09/23/20 04:36 Toxic Granulation Not Reportable 09/23/20 04:36 Toxic Vacuolation Not Reportable 09/23/20 04:36 Dohle Bodies Not Reportable 09/23/20 04:36 Pelger-Huet Anomaly Not Reportable 09/23/20 04:36 Vinh Rods Not Reportable 09/23/20 04:36 Platelet Estimate Consistent w auto 09/23/20 04:36 Clumped Platelets Not Reportable 09/23/20 04:36 Plt Clumps, EDTA Not Reportable 09/23/20 04:36 Large Platelets Not Reportable 09/23/20 04:36 Giant Platelets Not Reportable 09/23/20 04:36 Platelet Satelliting Not Reportable 09/23/20 04:36 Plt Morphology Comment Not Reportable 09/23/20 04:36 RBC Morphology Not Reportable 09/23/20 04:36 Dimorphic RBCs Not Reportable 09/23/20 04:36 Polychromasia Not Reportable 09/23/20 04:36 Hypochromasia Not Reportable 09/23/20 04:36 Poikilocytosis Not Reportable 09/23/20 04:36 Anisocytosis 1+ 09/23/20 04:36 Microcytosis Not Reportable 09/23/20 04:36 Macrocytosis Not Reportable 09/23/20 04:36 Spherocytes Not Reportable 09/23/20 04:36 Pappenheimer Bodies Not Reportable 09/23/20 04:36 Sickle Cells Not Reportable 09/23/20 04:36 Target Cells Few 09/23/20 04:36 Tear Drop Cells Not Reportable 09/23/20 04:36 Ovalocytes Not Reportable 09/23/20 04:36 Helmet Cells Not Reportable 09/23/20 04:36 Lazo-Mehama Bodies Not Reportable 09/23/20 04:36 Davenport Rings Not Reportable 09/23/20 04:36 Vita Cells Not Reportable 09/23/20 04:36 Bite Cells Not Reportable 09/23/20 04:36 Crenated Cell Not Reportable 09/23/20 04:36 Elliptocytes Not Reportable 09/23/20 04:36 Acanthocytes (Spur) Not Reportable 09/23/20 04:36 Rouleaux Not Reportable 09/23/20 04:36 Hemoglobin C Crystals Not Reportable 09/23/20 04:36 Schistocytes Not Reportable 09/23/20 04:36 Malaria parasites Not Reportable 09/23/20 04:36 Zachary Bodies Not Reportable 09/23/20 04:36 Hem Pathologist Commnt No 09/23/20 04:36 PT 15.7 Sec. (12.2-14.9) H 09/24/20 12:13 INR 1.27 (0.87-1.13) H 09/24/20 12:13 APTT 25.7 Sec. (24.2-36.6) 09/24/20 12:13 D-Dimer 1772.86 ng/mlDDU (0-234) H 09/24/20 05:00 Heparin Anti-Xa Level 0.10 U.I./ml (0.3-0.7) L 09/20/20 04:00 Heparin Anti-Xa, Unfract Negative (Negative) 09/22/20 15:12 ABG pH 7.508 (7.320-7.450) H 09/17/20 10:28 POC ABG pCO2 22.8 mmHg (32.0-48.0) L 09/17/20 10:28 POC ABG pO2 66.8 mmHg (83-108) L 09/17/20 10:28 POC ABG HCO3 17.7 09/17/20 10:28 ABG O2 Saturation 93.4 (0-100) 09/17/20 10:28 POC ABG Base Excess -3.5 09/17/20 10:28 ABG Hemoglobin 12.7 (12.0-17.5) 09/17/20 10:28 ABG Oxyhemoglobin 92.7 (94-98) L 09/17/20 10:28 ABG Methemoglobin 0.3 (0.0-1.5) 09/17/20 10:28 ABG Sodium 127.4 mmol/L (136.0-145.0) L 09/17/20 10:28 ABG Potassium 4.7 mmol/L (3.40-4.50) H 09/17/20 10:28 ABG Chloride 101.0 mmol/L (98-107) 09/17/20 10:28 ABG Glucose 121 mg/dL (65-95) H 09/17/20 10:28 Carboxyhemoglobin 0.4 (0.5-1.5) L 09/17/20 10:28 FiO2 % 21 09/17/20 10:28 Sodium 141 mmol/L (137-145) 09/30/20 04:47 Potassium 4.5 mmol/L (3.6-5.0) 09/30/20 04:47 Chloride 105.9 mmol/L (98-107) 09/30/20 04:47 Carbon Dioxide 31 mmol/L (22-30) H 09/30/20 04:47 Anion Gap 9 mmol/L 09/30/20 04:47 BUN 63 mg/dL (9-20) H 09/30/20 04:47 Creatinine 2.1 mg/dL (0.8-1.3) H 09/30/20 04:47 Estimated GFR 38 ml/min 09/30/20 04:47 BUN/Creatinine Ratio 30 % 09/30/20 04:47 Glucose 97 mg/dL (75-100) 09/30/20 04:47 POC Glucose 72 mg/dL (70-105) 09/30/20 11:45 Lactic Acid 1.00 mmol/L (0.7-2.0) 09/20/20 17:10 Calcium 8.8 mg/dL (8.4-10.2) 09/30/20 04:47 Phosphorus 2.90 mg/dL (2.5-4.5) 09/26/20 07:06 Magnesium 1.70 mg/dL (1.7-2.3) 09/26/20 07:06 Ferritin 1190.0 ng/mL (30.0-300.0) H 09/24/20 05:00 Total Bilirubin 0.80 mg/dL (0.1-1.2) 09/30/20 04:47 AST 14 units/L (5-40) 09/30/20 04:47 ALT 21 units/L (7-56) 09/30/20 04:47 Alkaline Phosphatase 81 units/L (35-129) 09/30/20 04:47 Lactate Dehydrogenase 276 units/L (91-180) H 09/24/20 05:00 Total Creatine Kinase 20 units/L (55-170) L 09/19/20 03:30 Troponin T < 0.010 ng/mL (0.00-0.029) 09/22/20 05:38 C-Reactive Protein 4.20 mg/dL (0.00-1.30) H 09/24/20 05:00 NT-Pro-B Natriuret Pep 44199 pg/mL (0-900) H 09/17/20 10:47 Total Protein 5.9 g/dL (6.3-8.2) L 09/30/20 04:47 Albumin 2.2 g/dL (3.9-5) L 09/30/20 04:47 Albumin/Globulin Ratio 0.6 % 09/30/20 04:47 Triglycerides 137 mg/dL (2-149) 09/17/20 13:54 Cholesterol 48 mg/dL (50-199) L 09/17/20 13:54 LDL Cholesterol Direct 4 mg/dL (50-130) L 09/17/20 13:54 HDL Cholesterol 9 mg/dL (40-59) L 09/17/20 13:54 Cholesterol/HDL Ratio 5.33 % 09/17/20 13:54 Free PSA See scanned result 09/17/20 17:35 % Free PSA Calc See scanned result 09/17/20 17:35 Total PSA See scanned result 09/17/20 17:35 Procalcitonin 2.10 ng/mL (<0.15) 09/25/20 06:40 PTH Intact 161.4 pg/mL (15-65) H 09/19/20 03:30 Arterial Blood Glucose 121 mg/dL (65-95) H 09/17/20 10:28 Arterial Blood Ionized Calcium 5.0 mg/dL (4.6-5.3) 09/17/20 10:28 Urine Color Yellow (Yellow) 09/18/20 12:00 Urine Turbidity Cloudy (Clear) 09/18/20 12:00 Urine pH 5.0 (5.0-7.0) 09/18/20 12:00 Ur Specific [place] 1.009 (1.003-1.030) 09/18/20 12:00 Urine Protein 30 mg/dl mg/dL (Negative) 09/18/20 12:00 Urine Glucose (UA) Neg mg/dL (Negative) 09/18/20 12:00 Urine Ketones Neg mg/dL (Negative) 09/18/20 12:00 Urine Blood Sm (Negative) 09/18/20 12:00 Urine Nitrite Neg (Negative) 09/18/20 12:00 Urine Bilirubin Neg (Negative) 09/18/20 12:00 Urine Urobilinogen < 2.0 mg/dL (<2.0) 09/18/20 12:00 Ur Leukocyte Esterase Mod (Negative) 09/18/20 12:00 Urine WBC (Auto) 71.0 /HPF (0.0-6.0) H 09/18/20 12:00 Urine RBC (Auto) 2.0 /HPF (0.0-6.0) 09/18/20 12:00 U Epithel Cells (Auto) 1.0 /HPF (0-13.0) 09/18/20 12:00 Urine Bacteria (Auto) 4+ /HPF (Negative) 09/18/20 12:00 Urine WBC Clumps 2+ /HPF 09/18/20 12:00 Hyaline Casts 3 /LPF 09/18/20 12:00 Granular Casts 3 /LPF 09/18/20 12:00 Urine Mucus Few /HPF 09/18/20 12:00 Urine Eosinophils None seen (None Seen) 09/19/20 03:15 Urine Creatinine 61.0 mg/dL (0.1-20.0) H 09/18/20 12:00 Urine Sodium 62 mmol/L 09/18/20 12:00 Random Vancomycin 12.7 ug/mL (0-40.0) 09/19/20 03:30 Heparin-induced Plt Ab Weak positive (Negative) H 09/22/20 15:12 UF Heparin High Dose 0 % Release 09/22/20 15:12 CORAZON UFH Low Dose 0.1 0 % Release 09/22/20 15:12 COR[place]ON UFH Low Dose 0.5 0 % Release 09/22/20 15:12 Lymph Enumerat CD4/CD8 0.70 (0.86-5.00) L 09/19/20 13:35 % CD3 Cells 79 % (57-85) 09/19/20 13:35 Absolute CD3 Count 175 cells/uL (840-3060) L 09/19/20 13:35 % CD4 Cells 31 % (30-61) 09/19/20 13:35 Absolute CD4 Count 70 cells/uL (490-1740) L 09/19/20 13:35 % CD8 Cells 45 % (12-42) H 09/19/20 13:35 Absolute CD8 Count 101 cells/uL (180-1170) L 09/19/20 13:35 % CD19 Cells 12 % (6-29) 09/19/20 13:35 Absolute CD19 Count 26 cells/uL (110-660) L 09/19/20 13:35 Coronavirus (PCR) Positive (Negative) A 09/18/20 09:39 Hepatitis A IgM Ab Non-reactive (NonReactive) 09/20/20 17:10 Hep Bs Antigen Non-reactive (Negative) 09/20/20 17:10 Hep B Core IgM Ab Non-reactive (NonReactive) 09/20/20 17:10 Hepatitis C Antibody Non-reactive (NonReactive) 09/20/20 17:10 HIV-1 RNA PCR copies/ml 67 Copies/mL H 09/19/20 13:35 HIV-1 RNA (PCR) log 1.83 Log cps/mL H 09/19/20 13:35 Gardner/IV: Voiding Method Incontinent Active Medications - Current Medications Current Medications: Generic Name Dose Route Start Last Admin Trade Name Freq PRN Reason Stop Dose Admin Acetaminophen 650 mg 09/17/20 13:52 09/28/20 03:21 Acetaminophen 325 Mg Tab PO 650 mg Q4H PRN Administration Pain MILD(1-3)/Fever >100.5/ANGEL Albuterol 2.5 mg 09/17/20 13:52 09/17/20 20:47 Albuterol 2.5 Mg/3 Ml Nebu IH 2.5 mg Q4HRT PRN Administration Shortness Of Breath Amiodarone HCl 200 mg 09/24/20 22:00 09/29/20 21:19 Amiodarone 200 Mg Tab PO 200 mg BID EDIE Administration Lipase/Protease/Amylase 1 each 09/20/20 13:10 Lipase 10,500/Protease 25,000/Amylase 43,750 (Units) Dr Patrick FEEDTUBE PRN PRN For Clogged Feeding Tube Apixaban 2.5 mg 09/24/20 12:00 09/30/20 09:55 Apixaban 2.5 Mg Tab PO 2.5 mg Q12HR EDIE Administration Protocol Ascorbic Acid 500 mg 09/20/20 22:00 09/30/20 09:55 Ascorbic Acid 500 Mg Tab PO 500 mg BID EDIE Administration Cholecalciferol 1,000 unit 09/21/20 10:00 09/30/20 09:55 Cholecalciferol (Vit D3) 1000 Unit (25 Mcg) Tab PO 1,000 unit QDAY EDIE Administration Emtricitabine 200 mg 09/30/20 11:00 Emtricitabine 200 Mg Cap PO Q48H EDIE Famotidine 20 mg 09/24/20 10:00 09/30/20 09:54 Famotidine 20 Mg Tab PO 20 mg DAILY EDIE Administration Heparin Sodium (Porcine) 3,000 unit 09/20/20 10:06 Heparin 10,000 Units/10 Ml Vial IV VIRGIL PRN hemodialysis Sodium Chloride 100 mls @ 999 mls/hr 09/20/20 10:06 Nacl 0.9% IV VIRGIL PRN Hypotension Metoprolol Tartrate 5 mg 09/19/20 19:06 09/24/20 10:59 Metoprolol Tartrate 5 Mg/5 Ml Inj IV 5 mg Q8HR PRN Administration HR > 135 Minute Metoprolol Tartrate 25 mg 09/29/20 18:34 09/30/20 09:56 Metoprolol Tartrate 25 Mg Tab PO Not Given BID EDIE Midodrine 5 mg 09/22/20 12:00 09/30/20 12:44 Midodrine 5 Mg Tab PO 5 mg TID@0800,1200,1600 EDIE Administration Ondansetron HCl 4 mg 09/17/20 13:52 Ondansetron 4 Mg/2 Ml Inj IV Q8H PRN Nausea And Vomiting Simple Syrup 15 ml 09/20/20 13:10 Simple Syrup 15 Ml FEEDTUBE PRN PRN Hypoglycemia Simple Syrup 30 ml 09/20/20 13:10 Simple Syrup 15 Ml FEEDTUBE PRN PRN Hypoglycemia Sodium Bicarbonate 325 mg 09/20/20 13:10 Sodium Bicarbonate 325 Mg Tab FEEDTUBE PRN PRN For Clogged Feeding Tube Sodium Chloride 10 ml 09/17/20 22:00 09/30/20 09:57 Sodium Chloride 0.9% 10 Ml Flush Syringe IV 10 ml BID EDIE Administration Sodium Chloride 10 ml 09/17/20 13:52 09/24/20 09:15 Sodium Chloride 0.9% 10 Ml Flush Syringe IV 10 ml PRN PRN Administration LINE FLUSH Tenofovir Disoproxil Fumarate 300 mg 09/30/20 11:00 Tenofovir 300 Mg Tab PO Q48H EDIE Zinc Sulfate 220 mg 09/21/20 10:00 09/30/20 09:55 Zinc Sulfate 220 Mg Cap PO 220 mg QDAY EDIE Administration Nutrition/Malnutrition Assess - Dietary Evaluation Nutrition/Malnutrition Findings: Nutrition Notes Start: 09/18/20 11:30 Freq: Status: Active Protocol: Document 09/27/20 13:30 MELISSA (Rec: 09/27/20 13:40 [id number]) Nutrition Notes Initial or Follow up Reassessment Current Diagnosis Acute Kidney Injury,Sepsis, Hypertension,Heart Failure, Respiratory Failure Other Pertinent Diagnosis COVID-19 (+), AMS, UTI, afib with RVR, HIV (+) Current Diet TF - Nepro at 45ml/hr Labs/Tests BUN 67 Cr 2.3 Pertinent Medications Reviewed Height 6 ft 1 in Weight 73 kg [place] Body Weight (kg) 83.63 BMI 21.2 Weight Status Underweight Subjective/Other Information Pt pulled out NGT yesterday, however, it was re-inserted and confirmed by KUB. Spoke with RN via phone at 13:28. Pt tolerating TF at goal rate. Percent of energy/protein needs met: 100% energy 99% pro Burn Absent Trauma Absent #2 Nutrition Diagnosis Inadequate oral intake Diagnosis Progress(for reassessment Continues documentation) Is patient on ventilator? No Is Patient Ambulatory and/or Out of Bed No REE-([place]-St. Jeor-confined to bed) 1858.500 Kcal/Kg value to use for calculation 30 Approximate Energy Requirements Using 2190 kcal/Kg Calculation Used for Recommendations Kcal/kg Additional Notes Pro needs >1.2g/kg: >88g/day Fluid needs 1-1.5L/day Nutrition Intervention Nutrition Support: Continue Nepro at 45 ml/hr with a free water flush of 200 ml q4h Kcal 1,944 Protein (gm) 87 Fluid (mL) 785 Goal #1 TF tolerance Goal #2 TF to meet 75-100% energy and pro needs Goal #3 Wt maintenance and/or gain Follow-Up By: 10/04/20 Additional Comments F/U: stable TF, wt
[2020-09-30] MEDS: EMTRICITABINE 200 MG CAP PO SCH (15:28)
[2020-09-30] MEDS: AMIODARONE 200 MG TAB PO SCH (15:28)
[2020-09-30] MEDS: TENOFOVIR 300 MG TAB PO SCH (15:35)
[2020-09-30] MEDS ORDERED: SODIUM CHLORIDE 0.9% 500 ML IVPB IV ONE (16:10)
[2020-09-30] MEDS ORDERED: SODIUM CHLORIDE 0.9% 1000 ML 0 ML ONE (17:42)
[2020-09-30] MEDS ORDERED: NEOMY 3.5 MG/BACIT 400 UNITS/POLY B 5000 UNITS/GM OINT PACKET TP ONE (17:52)
--- NOTE | 2020-09-30 18:39 | Progress Note ---
Assessment and Plan May decrease PO Amio to 200mg daily. Given significant drop in Hgb, would consider holding Eliquis at this time. Recommend Heme input. There is some concern about the safety continuing long-term OAC as an outpatient given high fall risk. Pt seen in conjunction with Dr. Feliciano Grey, who agrees with the assessment and plan of care. - Patient Problems (1) AMS (altered mental status) Current Visit: Yes Status: Acute Qualifiers: Altered mental status type: somnolence Qualified Code(s): R40.0 - Somnolence (2) Acute respiratory failure Current Visit: Yes Status: Acute (3) Sepsis Current Visit: Yes Status: Acute Qualifiers: Severe sepsis shock status: with septic shock (4) UTI (urinary tract infection) Current Visit: Yes Status: Acute (5) LOLI (acute kidney injury) Current Visit: Yes Status: Acute (6) Acute HFrEF (heart failure with reduced ejection fraction) Current Visit: Yes Status: Resolved (7) Cardiomyopathy Current Visit: Yes Status: Chronic (8) Atrial fibrillation with RVR Current Visit: Yes Status: Acute (9) Anemia Current Visit: Yes Status: Acute (10) H/O: HTN (hypertension) Current Visit: Yes Status: Chronic (11) HIV (human immunodeficiency virus infection) Current Visit: Yes Status: Chronic Subjective Date of service: 09/30/20 Principal diagnosis: Acute Resp Fail, Sepsis, AF with RVR Interval history: Tele reviewed - AF 80-100s, no acute events overnight. Objective Last Vital Signs Temp 98.8 F 09/30/20 16:32 Pulse 102 H 09/30/20 16:32 Resp 18 09/30/20 16:32 BP 126/78 09/30/20 16:32 Pulse Ox 95 09/30/20 16:32 - Physical Examination General: No Apparent Distress HEENT: Positive: Normocephaly, Mucus Membranes Moist Neck: Positive: neck supple. Negative: JVD/HJR Cardiac: Positive: irregularly irregular, S1/S2 Lungs: Positive: Decreased Breath Sounds Neuro: Positive: Grossly Intact Abdomen: Positive: Soft Skin: Negative: Rash Musculoskeletal: No Fluid Collection Extremities: Present: upper extr. pulses, lower extr. pulses. Absent: edema - Labs and Meds Cardiac Enzymes 09/30/20 Range/Units 04:47 AST 14 (5-40) units/L CBC 09/30/20 Range/Units 04:47 WBC 9.3 (4.5-11.0) K/mm3 RBC 2.47 L (3.65-5.03) M/mm3 Hgb 8.1 L (11.8-15.2) gm/dl Hct 23.9 L (35.5-45.6) % Plt Count 240 (140-440) K/mm3 Comprehensive Metabolic Panel 09/30/20 Range/Units 04:47 Sodium 141 (137-145) mmol/L Potassium 4.5 (3.6-5.0) mmol/L Chloride 105.9 (98-107) mmol/L Carbon Dioxide 31 H (22-30) mmol/L BUN 63 H (9-20) mg/dL Creatinine 2.1 H (0.8-1.3) mg/dL Glucose 97 (75-100) mg/dL Calcium 8.8 (8.4-10.2) mg/dL AST 14 (5-40) units/L ALT 21 (7-56) units/L Alkaline Phosphatase 81 (35-129) units/L Total Protein 5.9 L (6.3-8.2) g/dL Albumin 2.2 L (3.9-5) g/dL - Imaging and Cardiology EKG: report reviewed, image reviewed Echo: report reviewed (09/18/2020 - EF 40-45%, mild concentric LVH, RV sys fxn mildly reduced, no significant valvular abnormality) - Telemetry EKG Rhythm: Atrial Fibrillation - EKG Supraventricular dysrhythmia: atrial fibrillation Myocardial infarction: septal UT (old age or ind, anterior UT (old age or i - Allied health notes Allied health notes reviewed: nursing
[2020-09-30] MEDS: ACETAMINOPHEN 325 MG TAB PO PRN (21:12)
[2020-10-01] MEDS: MIDODRINE 5 MG TAB PO SCH ×3 (08:00→16:27)
[2020-10-01 08:10] LABS: Calcium 8.5 mg/dL (8.4-10.2)
--- NOTE | 2020-10-01 08:14 | Consultation ---
History of Present Illness Consult date: 10/01/20 Reason for Consult: Delirium History of present illness: This is 70-year-old male with HIV, HTN, and atrial fibrillation (currently on therapeutic anticoagulation with Xarelto) presents the emergency department on 09/17 with complaints of shortness of breath over the past 3 days and on arrival of EMS patient was found to have a pulse oximetry of 85% on room air. He was placed on supplemental oxygenation. Of note patient was admitted on 09/15 with similar complaints and found to have A. fib with RVR, hyponatremia, hypomagnesemia and acute kidney injury and left AMA. He was admitted to the hospital service with atrial fibrillation with RVR, SIRs, metabolic acidosis, acute kidney injury, acute hypoxic respiratory failure, hypotension, and CHF . Cardiology, CCM and nephrology were consulted. Initially presented with Afib with RVR and elevated troponin. Patient denies chest pain. Also, patient with elevated creatinine of 4.7 Patient remains on amiodarone drip with heart rate in the 130s to 140s and vasopressor support with Levophed. Nephrology initiate hemodialysis given worsening renal function studies and has stopped diuresis with Lasix. ID resumed antiretroviral therapy and ordered a HIDA scan. COVID-19 PCR resulted as positive. Patient started on vitamin C, vitamin D and zinc and dexamethasone given need for supplemental oxygenation. Ecoli UTI and bacteremia and ID has changed him to meropenem, HIDA scan did not show acute cholecystitis. Ecoli bacteremia is sensitive to ceftriaxone and ID changed his abx. Remains on levophed and vasopressin. and is started midodrine. Patient remains confused, pupils still unequal. on 09/24 Started on eliquis 2.5 today and he will be transferred to [facility]. On 09/29: Start Seroquel as he is getting more agitated Seroquel discontinued as patient did not tolerate, still with low BP responded to Fluids. 10/01: Patient seen and examined resting comfortably still with intermittent delirium and agitated he cries and wants to go home . Blood pressure has improved although beta-ruddy was held midodrine was given. Past History Past Medical History: atrial fib, HIV/AIDS, hypertension Past Surgical History: hernia repair Social history: single. denies: smoking, alcohol abuse Family history: hypertension Past History Past Medical History: atrial fib, HIV/AIDS, hypertension Past Surgical History: hernia repair Social history: single. denies: smoking, alcohol abuse Family history: hypertension Medications and Allergies Allergies Allergy/AdvReac Type Severity Reaction Status Date / Time heparin AdvReac thrombocyto Verified 09/29/20 16:33 penia Home Medications Medication Instructions Recorded Confirmed Last Taken Type AtorvaSTATin [Lipitor] 20 mg PO QHS 09/18/20 09/18/20 Unknown History Dolutegravir [Tivicay] 50 mg PO DAILY 09/18/20 09/18/20 Unknown History Emtricitabine/Tenofov Alafenam 1 tab PO DAILY 09/18/20 09/18/20 Unknown History [Descovy 200-25 mg (Nf)] allopurinoL [Zyloprim] 300 mg PO QDAY 09/18/20 09/18/20 Unknown History Amiodarone [Cordarone 200 MG TAB] 200 mg PO DAILY #60 tablet 10/01/20 Unknown Rx Apixaban [Eliquis] 2.5 mg PO Q12HR #60 tablet 10/01/20 Unknown Rx Ascorbic Acid [Vitamin C] 500 mg PO BID #60 tablet 10/01/20 Unknown Rx Cholecalciferol Vit D3 [Vitamin D3 1,000 unit PO QDAY #30 tablet 10/01/20 Unknown Rx 1,000 UNIT TAB] Famotidine [Pepcid] 20 mg PO DAILY #30 tablet 10/01/20 Unknown Rx Midodrine [Proamatine] 5 mg PO TID@0800,1200,1600 #90 10/01/20 Unknown Rx tablet QUEtiapine [SEROquel] 25 mg PO BID #30 tablet 10/01/20 Unknown Rx Zinc Sulfate 220 mg PO QDAY #30 capsule 10/01/20 Unknown Rx carvediloL [Coreg] 3.125 mg PO BID #60 tablet 10/01/20 Unknown Rx haloperidoL [Haldol] 2 mg PO Q8H PRN #30 tablet 10/01/20 Unknown Rx Active Meds: Active Medications Acetaminophen (Acetaminophen 325 Mg Tab) 650 mg PO Q4H PRN PRN Reason: Pain MILD(1-3)/Fever >100.5/ANGEL Last Admin: 09/30/20 21:12 Dose: 650 mg Documented by: Albuterol (Albuterol 2.5 Mg/3 Ml Nebu) 2.5 mg IH Q4HRT PRN PRN Reason: Shortness Of Breath Last Admin: 09/17/20 20:47 Dose: 2.5 mg Documented by: Amiodarone HCl (Amiodarone 200 Mg Tab) 200 mg PO DAILY [facility] Lipase/Protease/Amylase (Lipase 10,500/Protease 25,000/Amylase 43,750 (Units) Dr Darnell) 1 each FEEDTUBE PRN PRN PRN Reason: For Clogged Feeding Tube Apixaban (Apixaban 2.5 Mg Tab) 2.5 mg PO Q12HR [facility]; Protocol Last Admin: 09/30/20 21:12 Dose: 2.5 mg Documented by: Ascorbic Acid (Ascorbic Acid 500 Mg Tab) 500 mg PO BID [facility] Last Admin: 09/30/20 21:13 Dose: 500 mg Documented by: Cholecalciferol (Cholecalciferol (Vit D3) 1000 Unit (25 Mcg) Tab) 1,000 unit PO QDAY [facility] Last Admin: 09/30/20 09:55 Dose: 1,000 unit Documented by: Emtricitabine (Emtricitabine 200 Mg Cap) 200 mg PO Q48H [facility] Last Admin: 09/30/20 15:28 Dose: 200 mg Documented by: Famotidine (Famotidine 20 Mg Tab) 20 mg PO DAILY [facility] Last Admin: 09/30/20 09:54 Dose: 20 mg Documented by: Heparin Sodium (Porcine) (Heparin 10,000 Units/10 Ml Vial) 3,000 unit IV VIRGIL PRN PRN Reason: hemodialysis Sodium Chloride (Nacl 0.9%) 100 mls @ 999 mls/hr IV VIRGIL PRN PRN Reason: Hypotension Metoprolol Tartrate (Metoprolol Tartrate 5 Mg/5 Ml Inj) 5 mg IV Q8HR PRN PRN Reason: HR > 135 Minute Last Admin: 09/24/20 10:59 Dose: 5 mg Documented by: Metoprolol Tartrate (Metoprolol Tartrate 25 Mg Tab) 25 mg PO BID [facility] Last Admin: 09/30/20 21:13 Dose: 25 mg Documented by: Midodrine (Midodrine 5 Mg Tab) 5 mg PO TID@0800,1200,1600 [facility] Last Admin: 09/30/20 16:45 Dose: 5 mg Documented by: Ondansetron HCl (Ondansetron 4 Mg/2 Ml Inj) 4 mg IV Q8H PRN PRN Reason: Nausea And Vomiting Simple Syrup (Simple Syrup 15 Ml) 15 ml FEEDTUBE PRN PRN PRN Reason: Hypoglycemia Simple Syrup (Simple Syrup 15 Ml) 30 ml FEEDTUBE PRN PRN PRN Reason: Hypoglycemia Sodium Bicarbonate (Sodium Bicarbonate 325 Mg Tab) 325 mg FEEDTUBE PRN PRN PRN Reason: For Clogged Feeding Tube Sodium Chloride (Sodium Chloride 0.9% 10 Ml Flush Syringe) 10 ml IV BID [facility] Last Admin: 09/30/20 21:13 Dose: 10 ml Documented by: Sodium Chloride (Sodium Chloride 0.9% 10 Ml Flush Syringe) 10 ml IV PRN PRN PRN Reason: LINE FLUSH Last Admin: 09/24/20 09:15 Dose: 10 ml Documented by: Tenofovir Disoproxil Fumarate (Tenofovir 300 Mg Tab) 300 mg PO Q48H [facility] Last Admin: 09/30/20 15:35 Dose: 300 mg Documented by: Zinc Sulfate (Zinc Sulfate 220 Mg Cap) 220 mg PO QDAY [facility] Last Admin: 09/30/20 09:55 Dose: 220 mg Documented by: Physical Examination - Vital Signs Vital Signs: Vital Signs Temp Pulse Resp BP Pulse Ox 98.3 F 74 35 H 78/43 95 09/17/20 09:47 09/17/20 09:47 09/17/20 09:47 09/17/20 09:47 09/17/20 09:47 - Constitutional General appearance: other (agitated crying restless at time getting aggressive) - EENT EENT: Present: PERRL, mucous membranes moist - Respiratory Respiratory: Present: lungs clear, crackles - Cardiovascular Cardiovascular: Present: other (AF) Extremities: Present: no peripheral edema bilatateraly, no clubbing, cyanosis - Gastrointestinal Gastrointestinal: Present: normoactive bowel sounds - Integumentary Integumentary: Present: normal - Neurologic Cranial nerve examination: PERRL, EOMI, intact Speech examination: intact Sensorimotor examination: intact Detailed motor examination: grossly full strength in Detailed sensory examination: intact Results - Laboratory Findings CBC and BMP: 09/30/20 04:47 10/01/20 07:16 Abnormal Lab Findings: Abnormal Labs 09/17/20 09/17/20 09/17/20 10:28 10:47 10:47 WBC 11.1 H RBC 3.44 L Hgb 11.2 L Hct 32.8 L MCV 95 H MCH MCHC Plt Count Lymph % (Auto) [place] % (Auto) Lymph # (Auto) [place] # (Auto) Seg Neutrophils % Seg Neuts % (Manual) Lymphocytes % (Manual) 4.0 L Monocytes % (Manual) Nucleated RBC % Seg Neutrophils # Seg Neutrophils # Man 10.7 H Abs Lymphs (Manual) Lymphocytes # (Manual) 0.4 L PT 32.9 H INR 3.16 H APTT 51.1 H D-Dimer Heparin Anti-Xa Level ABG pH 7.508 H POC ABG pCO2 22.8 L POC ABG pO2 66.8 L ABG Oxyhemoglobin 92.7 L ABG Sodium 127.4 L ABG Potassium 4.7 H ABG Glucose 121 H Carboxyhemoglobin 0.4 L Sodium Chloride Carbon Dioxide BUN Creatinine Glucose POC Glucose Calcium Phosphorus Ferritin Total Bilirubin AST ALT Alkaline Phosphatase Lactate Dehydrogenase Total Creatine Kinase Troponin T C-Reactive Protein NT-Pro-B Natriuret Pep Total Protein Albumin Cholesterol LDL Cholesterol Direct HDL Cholesterol PTH Intact Arterial Blood Glucose 121 H Urine WBC (Auto) Urine Creatinine Heparin-induced Plt Ab Lymph Enumerat CD4/CD8 Absolute CD3 Count Absolute CD4 Count % CD8 Cells Absolute CD8 Count Absolute CD19 Count Coronavirus (PCR) HIV-1 RNA PCR copies/ml HIV-1 RNA (PCR) log 09/17/20 09/17/20 09/17/20 10:47 10:47 13:54 WBC RBC Hgb Hct MCV MCH MCHC Plt Count Lymph % (Auto) [place] % (Auto) Lymph # (Auto) [place] # (Auto) Seg Neutrophils % Seg Neuts % (Manual) Lymphocytes % (Manual) Monocytes % (Manual) Nucleated RBC % Seg Neutrophils # Seg Neutrophils # Man Abs Lymphs (Manual) Lymphocytes # (Manual) PT INR APTT D-Dimer Heparin Anti-Xa Level ABG pH POC ABG pCO2 POC ABG pO2 ABG Oxyhemoglobin ABG Sodium ABG Potassium ABG Glucose Carboxyhemoglobin Sodium 125 L Chloride 95.3 L Carbon Dioxide 17 L BUN 64 H Creatinine 4.6 H D Glucose 104 H POC Glucose Calcium Phosphorus Ferritin Total Bilirubin AST 69 H ALT Alkaline Phosphatase Lactate Dehydrogenase Total Creatine Kinase Troponin T 0.061 H D 0.058 H C-Reactive Protein NT-Pro-B Natriuret Pep 80688 H Total Protein Albumin 1.9 L Cholesterol 48 L LDL Cholesterol Direct 4 L HDL Cholesterol 9 L PTH Intact Arterial Blood Glucose Urine WBC (Auto) Urine Creatinine Heparin-induced Plt Ab Lymph Enumerat CD4/CD8 Absolute CD3 Count Absolute CD4 Count % CD8 Cells Absolute CD8 Count Absolute CD19 Count Coronavirus (PCR) HIV-1 RNA PCR copies/ml HIV-1 RNA (PCR) log 09/17/20 09/17/20 09/17/20 16:36 17:35 17:35 WBC RBC 3.25 L Hgb 10.7 L Hct 31.1 L MCV 96 H MCH 33 H MCHC Plt Count Lymph % (Auto) [place] % (Auto) Lymph # (Auto) [place] # (Auto) Seg Neutrophils % Seg Neuts % (Manual) Lymphocytes % (Manual) Monocytes % (Manual) Nucleated RBC % Seg Neutrophils # Seg Neutrophils # Man Abs Lymphs (Manual) Lymphocytes # (Manual) PT 31.9 H INR 3.04 H APTT 50.9 H D-Dimer Heparin Anti-Xa Level ABG pH POC ABG pCO2 POC ABG pO2 ABG Oxyhemoglobin ABG Sodium ABG Potassium ABG Glucose Carboxyhemoglobin Sodium Chloride Carbon Dioxide BUN Creatinine Glucose POC Glucose Calcium Phosphorus Ferritin Total Bilirubin AST ALT Alkaline Phosphatase Lactate Dehydrogenase Total Creatine Kinase Troponin T 0.057 H C-Reactive Protein NT-Pro-B Natriuret Pep Total Protein Albumin Cholesterol LDL Cholesterol Direct HDL Cholesterol PTH Intact Arterial Blood Glucose Urine WBC (Auto) Urine Creatinine Heparin-induced Plt Ab Lymph Enumerat CD4/CD8 Absolute CD3 Count Absolute CD4 Count % CD8 Cells Absolute CD8 Count Absolute CD19 Count Coronavirus (PCR) HIV-1 RNA PCR copies/ml HIV-1 RNA (PCR) log 09/17/20 09/18/20 09/18/20 17:35 03:19 03:19 WBC RBC 3.32 L Hgb 10.9 L Hct 32.0 L MCV 96 H MCH 33 H MCHC Plt Count 138 L Lymph % (Auto) [place] % (Auto) Lymph # (Auto) [place] # (Auto) Seg Neutrophils % Seg Neuts % (Manual) 95.0 H Lymphocytes % (Manual) 3.0 L Monocytes % (Manual) Nucleated RBC % Seg Neutrophils # Seg Neutrophils # Man 8.1 H Abs Lymphs (Manual) Lymphocytes # (Manual) 0.3 L PT INR APTT D-Dimer Heparin Anti-Xa Level ABG pH POC ABG pCO2 POC ABG pO2 ABG Oxyhemoglobin ABG Sodium ABG Potassium ABG Glucose Carboxyhemoglobin Sodium Chloride Carbon Dioxide 16 L BUN 70 H Creatinine 4.6 H 4.7 H Glucose 104 H POC Glucose Calcium 8.2 L Phosphorus Ferritin Total Bilirubin 1.60 H AST 128 H ALT 67 H Alkaline Phosphatase Lactate Dehydrogenase Total Creatine Kinase Troponin T C-Reactive Protein NT-Pro-B Natriuret Pep Total Protein 5.2 L D Albumin 2.5 L Cholesterol LDL Cholesterol Direct HDL Cholesterol PTH Intact Arterial Blood Glucose Urine WBC (Auto) Urine Creatinine Heparin-induced Plt Ab Lymph Enumerat CD4/CD8 Absolute CD3 Count Absolute CD4 Count % CD8 Cells Absolute CD8 Count Absolute CD19 Count Coronavirus (PCR) HIV-1 RNA PCR copies/ml HIV-1 RNA (PCR) log 09/18/20 09/18/20 09/18/20 09:39 12:00 12:00 WBC RBC Hgb Hct MCV MCH MCHC Plt Count Lymph % (Auto) [place] % (Auto) Lymph # (Auto) [place] # (Auto) Seg Neutrophils % Seg Neuts % (Manual) Lymphocytes % (Manual) Monocytes % (Manual) Nucleated RBC % Seg Neutrophils # Seg Neutrophils # Man Abs Lymphs (Manual) Lymphocytes # (Manual) PT INR APTT D-Dimer Heparin Anti-Xa Level ABG pH POC ABG pCO2 POC ABG pO2 ABG Oxyhemoglobin ABG Sodium ABG Potassium ABG Glucose Carboxyhemoglobin Sodium Chloride Carbon Dioxide BUN Creatinine Glucose POC Glucose Calcium Phosphorus Ferritin Total Bilirubin AST ALT Alkaline Phosphatase Lactate Dehydrogenase Total Creatine Kinase Troponin T C-Reactive Protein NT-Pro-B Natriuret Pep Total Protein Albumin Cholesterol LDL Cholesterol Direct HDL Cholesterol PTH Intact Arterial Blood Glucose Urine WBC (Auto) 71.0 H Urine Creatinine 61.0 H Heparin-induced Plt Ab Lymph Enumerat CD4/CD8 Absolute CD3 Count Absolute CD4 Count % CD8 Cells Absolute CD8 Count Absolute CD19 Count Coronavirus (PCR) Positive A HIV-1 RNA PCR copies/ml HIV-1 RNA (PCR) log 09/18/20 09/18/20 09/18/20 15:07 15:07 18:33 WBC RBC Hgb 10.7 L Hct 31.3 L MCV MCH MCHC Plt Count Lymph % (Auto) [place] % (Auto) Lymph # (Auto) [place] # (Auto) Seg Neutrophils % Seg Neuts % (Manual) Lymphocytes % (Manual) Monocytes % (Manual) Nucleated RBC % Seg Neutrophils # Seg Neutrophils # Man Abs Lymphs (Manual) Lymphocytes # (Manual) PT 20.3 H INR 1.73 H APTT 40.8 H D-Dimer Heparin Anti-Xa Level 1.09 H ABG pH POC ABG pCO2 POC ABG pO2 ABG Oxyhemoglobin ABG Sodium ABG Potassium ABG Glucose Carboxyhemoglobin Sodium Chloride Carbon Dioxide BUN Creatinine Glucose POC Glucose Calcium Phosphorus Ferritin Total Bilirubin AST ALT Alkaline Phosphatase Lactate Dehydrogenase Total Creatine Kinase Troponin T C-Reactive Protein NT-Pro-B Natriuret Pep Total Protein Albumin Cholesterol LDL Cholesterol Direct HDL Cholesterol PTH Intact Arterial Blood Glucose Urine WBC (Auto) Urine Creatinine Heparin-induced Plt Ab Lymph Enumerat CD4/CD8 Absolute CD3 Count Absolute CD4 Count % CD8 Cells Absolute CD8 Count Absolute CD19 Count Coronavirus (PCR) HIV-1 RNA PCR copies/ml HIV-1 RNA (PCR) log 09/19/20 09/19/20 09/19/20 03:30 03:30 03:30 WBC RBC 3.29 L Hgb 10.9 L Hct 30.9 L MCV MCH 33 H MCHC 35 H Plt Count Lymph % (Auto) [place] % (Auto) Lymph # (Auto) [place] # (Auto) Seg Neutrophils % Seg Neuts % (Manual) Lymphocytes % (Manual) Monocytes % (Manual) Nucleated RBC % Seg Neutrophils # Seg Neutrophils # Man Abs Lymphs (Manual) Lymphocytes # (Manual) PT INR APTT D-Dimer Heparin Anti-Xa Level ABG pH POC ABG pCO2 POC ABG pO2 ABG Oxyhemoglobin ABG Sodium ABG Potassium ABG Glucose Carboxyhemoglobin Sodium 133 L Chloride Carbon Dioxide 17 L BUN 94 H Creatinine 5.0 H Glucose 120 H POC Glucose Calcium Phosphorus 6.30 H Ferritin Total Bilirubin 2.40 H AST 163 H ALT 109 H Alkaline Phosphatase 160 H Lactate Dehydrogenase Total Creatine Kinase 20 L Troponin T C-Reactive Protein NT-Pro-B Natriuret Pep Total Protein 6.2 L Albumin 2.0 L Cholesterol LDL Cholesterol Direct HDL Cholesterol PTH Intact 161.4 H Arterial Blood Glucose Urine WBC (Auto) Urine Creatinine Heparin-induced Plt Ab Lymph Enumerat CD4/CD8 Absolute CD3 Count Absolute CD4 Count % CD8 Cells Absolute CD8 Count Absolute CD19 Count Coronavirus (PCR) HIV-1 RNA PCR copies/ml HIV-1 RNA (PCR) log 09/19/20 09/19/20 09/19/20 06:35 13:35 13:35 WBC RBC Hgb Hct MCV MCH MCHC Plt Count Lymph % (Auto) [place] % (Auto) Lymph # (Auto) [place] # (Auto) Seg Neutrophils % Seg Neuts % (Manual) Lymphocytes % (Manual) Monocytes % (Manual) Nucleated RBC % Seg Neutrophils # Seg Neutrophils # Man Abs Lymphs (Manual) 223 L Lymphocytes # (Manual) PT INR APTT D-Dimer Heparin Anti-Xa Level ABG pH POC ABG pCO2 POC ABG pO2 ABG Oxyhemoglobin ABG Sodium ABG Potassium ABG Glucose Carboxyhemoglobin Sodium Chloride Carbon Dioxide BUN Creatinine Glucose POC Glucose 123 H Calcium Phosphorus Ferritin Total Bilirubin AST ALT Alkaline Phosphatase Lactate Dehydrogenase Total Creatine Kinase Troponin T C-Reactive Protein NT-Pro-B Natriuret Pep Total Protein Albumin Cholesterol LDL Cholesterol Direct HDL Cholesterol PTH Intact Arterial Blood Glucose Urine WBC (Auto) Urine Creatinine Heparin-induced Plt Ab Lymph Enumerat CD4/CD8 0.70 L Absolute CD3 Count 175 L Absolute CD4 Count 70 L % CD8 Cells 45 H Absolute CD8 Count 101 L Absolute CD19 Count 26 L Coronavirus (PCR) HIV-1 RNA PCR copies/ml 67 H HIV-1 RNA (PCR) log 1.83 H 09/19/20 09/20/20 09/20/20 23:37 04:00 04:00 WBC RBC 3.43 L Hgb 11.1 L Hct 32.2 L MCV MCH MCHC Plt Count 131 L Lymph % (Auto) [place] % (Auto) Lymph # (Auto) [place] # (Auto) Seg Neutrophils % Seg Neuts % (Manual) 88.0 H Lymphocytes % (Manual) 3.0 L Monocytes % (Manual) 9.0 H Nucleated RBC % Seg Neutrophils # Seg Neutrophils # Man 8.2 H Abs Lymphs (Manual) Lymphocytes # (Manual) 0.3 L PT INR APTT D-Dimer Heparin Anti-Xa Level 0.10 L ABG pH POC ABG pCO2 POC ABG pO2 ABG Oxyhemoglobin ABG Sodium ABG Potassium ABG Glucose Carboxyhemoglobin Sodium Chloride Carbon Dioxide BUN Creatinine Glucose POC Glucose 135 H Calcium Phosphorus Ferritin Total Bilirubin AST ALT Alkaline Phosphatase Lactate Dehydrogenase Total Creatine Kinase Troponin T C-Reactive Protein NT-Pro-B Natriuret Pep Total Protein Albumin Cholesterol LDL Cholesterol Direct HDL Cholesterol PTH Intact Arterial Blood Glucose Urine WBC (Auto) Urine Creatinine Heparin-induced Plt Ab Lymph Enumerat CD4/CD8 Absolute CD3 Count Absolute CD4 Count % CD8 Cells Absolute CD8 Count Absolute CD19 Count Coronavirus (PCR) HIV-1 RNA PCR copies/ml HIV-1 RNA (PCR) log 09/20/20 09/20/20 09/20/20 04:00 05:37 11:20 WBC RBC Hgb Hct MCV MCH MCHC Plt Count Lymph % (Auto) [place] % (Auto) Lymph # (Auto) [place] # (Auto) Seg Neutrophils % Seg Neuts % (Manual) Lymphocytes % (Manual) Monocytes % (Manual) Nucleated RBC % Seg Neutrophils # Seg Neutrophils # Man Abs Lymphs (Manual) Lymphocytes # (Manual) PT INR APTT D-Dimer Heparin Anti-Xa Level ABG pH POC ABG pCO2 POC ABG pO2 ABG Oxyhemoglobin ABG Sodium ABG Potassium ABG Glucose Carboxyhemoglobin Sodium Chloride Carbon Dioxide 16 L BUN 119 H Creatinine 6.2 H Glucose 136 H POC Glucose 137 H 108 H Calcium Phosphorus Ferritin Total Bilirubin AST ALT Alkaline Phosphatase Lactate Dehydrogenase Total Creatine Kinase Troponin T C-Reactive Protein NT-Pro-B Natriuret Pep Total Protein Albumin Cholesterol LDL Cholesterol Direct HDL Cholesterol PTH Intact Arterial Blood Glucose Urine WBC (Auto) Urine Creatinine Heparin-induced Plt Ab Lymph Enumerat CD4/CD8 Absolute CD3 Count Absolute CD4 Count % CD8 Cells Absolute CD8 Count Absolute CD19 Count Coronavirus (PCR) HIV-1 RNA PCR copies/ml HIV-1 RNA (PCR) log 09/20/20 09/20/20 09/20/20 17:10 17:10 17:10 WBC RBC Hgb Hct MCV MCH MCHC Plt Count Lymph % (Auto) [place] % (Auto) Lymph # (Auto) [place] # (Auto) Seg Neutrophils % Seg Neuts % (Manual) Lymphocytes % (Manual) Monocytes % (Manual) Nucleated RBC % Seg Neutrophils # Seg Neutrophils # Man Abs Lymphs (Manual) Lymphocytes # (Manual) PT INR APTT D-Dimer 4271.58 H Heparin Anti-Xa Level ABG pH POC ABG pCO2 POC ABG pO2 ABG Oxyhemoglobin ABG Sodium ABG Potassium ABG Glucose Carboxyhemoglobin Sodium Chloride Carbon Dioxide BUN Creatinine 6.0 H Glucose POC Glucose Calcium Phosphorus Ferritin 696.6 H Total Bilirubin AST ALT Alkaline Phosphatase Lactate Dehydrogenase Total Creatine Kinase Troponin T C-Reactive Protein NT-Pro-B Natriuret Pep Total Protein Albumin Cholesterol LDL Cholesterol Direct HDL Cholesterol PTH Intact Arterial Blood Glucose Urine WBC (Auto) Urine Creatinine Heparin-induced Plt Ab Lymph Enumerat CD4/CD8 Absolute CD3 Count Absolute CD4 Count % CD8 Cells Absolute CD8 Count Absolute CD19 Count Coronavirus (PCR) HIV-1 RNA PCR copies/ml HIV-1 RNA (PCR) log 09/20/20 09/20/20 09/20/20 17:10 18:21 23:14 WBC RBC Hgb Hct MCV MCH MCHC Plt Count Lymph % (Auto) [place] % (Auto) Lymph # (Auto) [place] # (Auto) Seg Neutrophils % Seg Neuts % (Manual) Lymphocytes % (Manual) Monocytes % (Manual) Nucleated RBC % Seg Neutrophils # Seg Neutrophils # Man Abs Lymphs (Manual) Lymphocytes # (Manual) PT INR APTT D-Dimer Heparin Anti-Xa Level ABG pH POC ABG pCO2 POC ABG pO2 ABG Oxyhemoglobin ABG Sodium ABG Potassium ABG Glucose Carboxyhemoglobin Sodium Chloride Carbon Dioxide BUN Creatinine Glucose POC Glucose 129 H 170 H Calcium Phosphorus Ferritin Total Bilirubin AST ALT Alkaline Phosphatase Lactate Dehydrogenase 209 H Total Creatine Kinase Troponin T C-Reactive Protein 10.60 H NT-Pro-B Natriuret Pep Total Protein Albumin Cholesterol LDL Cholesterol Direct HDL Cholesterol PTH Intact Arterial Blood Glucose Urine WBC (Auto) Urine Creatinine Heparin-induced Plt Ab Lymph Enumerat CD4/CD8 Absolute CD3 Count Absolute CD4 Count % CD8 Cells Absolute CD8 Count Absolute CD19 Count Coronavirus (PCR) HIV-1 RNA PCR copies/ml HIV-1 RNA (PCR) log 09/21/20 09/21/20 09/21/20 05:35 17:09 23:18 WBC RBC Hgb Hct MCV MCH MCHC Plt Count Lymph % (Auto) [place] % (Auto) Lymph # (Auto) [place] # (Auto) Seg Neutrophils % Seg Neuts % (Manual) Lymphocytes % (Manual) Monocytes % (Manual) Nucleated RBC % Seg Neutrophils # Seg Neutrophils # Man Abs Lymphs (Manual) Lymphocytes # (Manual) PT INR APTT D-Dimer Heparin Anti-Xa Level ABG pH POC ABG pCO2 POC ABG pO2 ABG Oxyhemoglobin ABG Sodium ABG Potassium ABG Glucose Carboxyhemoglobin Sodium Chloride Carbon Dioxide BUN Creatinine Glucose POC Glucose 170 H 140 H 139 H Calcium Phosphorus Ferritin Total Bilirubin AST ALT Alkaline Phosphatase Lactate Dehydrogenase Total Creatine Kinase Troponin T C-Reactive Protein NT-Pro-B Natriuret Pep Total Protein Albumin Cholesterol LDL Cholesterol Direct HDL Cholesterol PTH Intact Arterial Blood Glucose Urine WBC (Auto) Urine Creatinine Heparin-induced Plt Ab Lymph Enumerat CD4/CD8 Absolute CD3 Count Absolute CD4 Count % CD8 Cells Absolute CD8 Count Absolute CD19 Count Coronavirus (PCR) HIV-1 RNA PCR copies/ml HIV-1 RNA (PCR) log 09/21/20 09/21/20 09/21/20 Unknown Unknown Unknown WBC RBC 3.56 L Hgb 11.3 L Hct 33.2 L MCV MCH MCHC Plt Count 125 L Lymph % (Auto) [place] % (Auto) Lymph # (Auto) [place] # (Auto) Seg Neutrophils % Seg Neuts % (Manual) 90.0 H Lymphocytes % (Manual) 8.0 L Monocytes % (Manual) Nucleated RBC % 1.0 H Seg Neutrophils # Seg Neutrophils # Man 9.4 H Abs Lymphs (Manual) Lymphocytes # (Manual) 0.8 L PT 16.8 H INR 1.36 H APTT D-Dimer Heparin Anti-Xa Level ABG pH POC ABG pCO2 POC ABG pO2 ABG Oxyhemoglobin ABG Sodium ABG Potassium ABG Glucose Carboxyhemoglobin Sodium Chloride Carbon Dioxide BUN 83 H Creatinine 4.3 H Glucose 163 H POC Glucose Calcium Phosphorus Ferritin Total Bilirubin 2.40 H AST ALT 57 H Alkaline Phosphatase < 5 L Lactate Dehydrogenase Total Creatine Kinase Troponin T C-Reactive Protein NT-Pro-B Natriuret Pep Total Protein Albumin 1.9 L Cholesterol LDL Cholesterol Direct HDL Cholesterol PTH Intact Arterial Blood Glucose Urine WBC (Auto) Urine Creatinine Heparin-induced Plt Ab Lymph Enumerat CD4/CD8 Absolute CD3 Count Absolute CD4 Count % CD8 Cells Absolute CD8 Count Absolute CD19 Count Coronavirus (PCR) HIV-1 RNA PCR copies/ml HIV-1 RNA (PCR) log 09/22/20 09/22/20 09/22/20 05:38 05:38 05:38 WBC 15.8 H RBC 3.36 L Hgb 10.8 L Hct 31.0 L MCV MCH MCHC 35 H Plt Count 68 L Lymph % (Auto) 3.1 L [place] % (Auto) 10.7 H Lymph # (Auto) 0.5 L [place] # (Auto) 1.7 H Seg Neutrophils % 85.9 H Seg Neuts % (Manual) Lymphocytes % (Manual) Monocytes % (Manual) Nucleated RBC % Seg Neutrophils # 13.6 H Seg Neutrophils # Man Abs Lymphs (Manual) Lymphocytes # (Manual) PT INR APTT D-Dimer 3281.49 H Heparin Anti-Xa Level ABG pH POC ABG pCO2 POC ABG pO2 ABG Oxyhemoglobin ABG Sodium ABG Potassium ABG Glucose Carboxyhemoglobin Sodium Chloride Carbon Dioxide BUN 61 H Creatinine 3.1 H Glucose 129 H POC Glucose Calcium Phosphorus Ferritin Total Bilirubin AST ALT Alkaline Phosphatase Lactate Dehydrogenase 277 H Total Creatine Kinase Troponin T C-Reactive Protein 6.60 H NT-Pro-B Natriuret Pep Total Protein Albumin Cholesterol LDL Cholesterol Direct HDL Cholesterol PTH Intact Arterial Blood Glucose Urine WBC (Auto) Urine Creatinine Heparin-induced Plt Ab Lymph Enumerat CD4/CD8 Absolute CD3 Count Absolute CD4 Count % CD8 Cells Absolute CD8 Count Absolute CD19 Count Coronavirus (PCR) HIV-1 RNA PCR copies/ml HIV-1 RNA (PCR) log 09/22/20 09/22/20 09/22/20 05:38 05:44 11:26 WBC RBC Hgb Hct MCV MCH MCHC Plt Count Lymph % (Auto) [place] % (Auto) Lymph # (Auto) [place] # (Auto) Seg Neutrophils % Seg Neuts % (Manual) Lymphocytes % (Manual) Monocytes % (Manual) Nucleated RBC % Seg Neutrophils # Seg Neutrophils # Man Abs Lymphs (Manual) Lymphocytes # (Manual) PT INR APTT D-Dimer Heparin Anti-Xa Level ABG pH POC ABG pCO2 POC ABG pO2 ABG Oxyhemoglobin ABG Sodium ABG Potassium ABG Glucose Carboxyhemoglobin Sodium Chloride Carbon Dioxide BUN Creatinine Glucose POC Glucose 112 H 131 H Calcium Phosphorus Ferritin 927.8 H Total Bilirubin AST ALT Alkaline Phosphatase Lactate Dehydrogenase Total Creatine Kinase Troponin T C-Reactive Protein NT-Pro-B Natriuret Pep Total Protein Albumin Cholesterol LDL Cholesterol Direct HDL Cholesterol PTH Intact Arterial Blood Glucose Urine WBC (Auto) Urine Creatinine Heparin-induced Plt Ab Lymph Enumerat CD4/CD8 Absolute CD3 Count Absolute CD4 Count % CD8 Cells Absolute CD8 Count Absolute CD19 Count Coronavirus (PCR) HIV-1 RNA PCR copies/ml HIV-1 RNA (PCR) log 09/22/20 09/22/20 09/22/20 15:12 15:12 15:12 WBC RBC Hgb Hct MCV MCH MCHC Plt Count Lymph % (Auto) [place] % (Auto) Lymph # (Auto) [place] # (Auto) Seg Neutrophils % Seg Neuts % (Manual) Lymphocytes % (Manual) Monocytes % (Manual) Nucleated RBC % Seg Neutrophils # Seg Neutrophils # Man Abs Lymphs (Manual) Lymphocytes # (Manual) PT 17.3 H INR 1.42 H APTT D-Dimer Heparin Anti-Xa Level ABG pH POC ABG pCO2 POC ABG pO2 ABG Oxyhemoglobin ABG Sodium ABG Potassium ABG Glucose Carboxyhemoglobin Sodium Chloride Carbon Dioxide BUN Creatinine 3.0 H Glucose POC Glucose Calcium Phosphorus Ferritin Total Bilirubin AST ALT Alkaline Phosphatase Lactate Dehydrogenase Total Creatine Kinase Troponin T C-Reactive Protein NT-Pro-B Natriuret Pep Total Protein Albumin Cholesterol LDL Cholesterol Direct HDL Cholesterol PTH Intact Arterial Blood Glucose Urine WBC (Auto) Urine Creatinine Heparin-induced Plt Ab Weak positive H Lymph Enumerat CD4/CD8 Absolute CD3 Count Absolute CD4 Count % CD8 Cells Absolute CD8 Count Absolute CD19 Count Coronavirus (PCR) HIV-1 RNA PCR copies/ml HIV-1 RNA (PCR) log 09/22/20 09/22/20 09/23/20 16:53 23:55 04:36 WBC 14.2 H RBC 3.05 L Hgb 9.8 L Hct 28.4 L MCV MCH MCHC Plt Count 39 L Lymph % (Auto) [place] % (Auto) Lymph # (Auto) [place] # (Auto) Seg Neutrophils % Seg Neuts % (Manual) 91.0 H Lymphocytes % (Manual) 2.0 L Monocytes % (Manual) Nucleated RBC % Seg Neutrophils # Seg Neutrophils # Man 12.9 H Abs Lymphs (Manual) Lymphocytes # (Manual) 0.3 L PT INR APTT D-Dimer Heparin Anti-Xa Level ABG pH POC ABG pCO2 POC ABG pO2 ABG Oxyhemoglobin ABG Sodium ABG Potassium ABG Glucose Carboxyhemoglobin Sodium Chloride Carbon Dioxide BUN Creatinine Glucose POC Glucose 138 H 171 H Calcium Phosphorus Ferritin Total Bilirubin AST ALT Alkaline Phosphatase Lactate Dehydrogenase Total Creatine Kinase Troponin T C-Reactive Protein NT-Pro-B Natriuret Pep Total Protein Albumin Cholesterol LDL Cholesterol Direct HDL Cholesterol PTH Intact Arterial Blood Glucose Urine WBC (Auto) Urine Creatinine Heparin-induced Plt Ab Lymph Enumerat CD4/CD8 Absolute CD3 Count Absolute CD4 Count % CD8 Cells Absolute CD8 Count Absolute CD19 Count Coronavirus (PCR) HIV-1 RNA PCR copies/ml HIV-1 RNA (PCR) log 09/23/20 09/23/20 09/23/20 04:36 05:41 11:38 WBC RBC Hgb Hct MCV MCH MCHC Plt Count Lymph % (Auto) [place] % (Auto) Lymph # (Auto) [place] # (Auto) Seg Neutrophils % Seg Neuts % (Manual) Lymphocytes % (Manual) Monocytes % (Manual) Nucleated RBC % Seg Neutrophils # Seg Neutrophils # Man Abs Lymphs (Manual) Lymphocytes # (Manual) PT INR APTT D-Dimer Heparin Anti-Xa Level ABG pH POC ABG pCO2 POC ABG pO2 ABG Oxyhemoglobin ABG Sodium ABG Potassium ABG Glucose Carboxyhemoglobin Sodium Chloride Carbon Dioxide BUN 76 H Creatinine 3.1 H Glucose 157 H POC Glucose 136 H 141 H Calcium Phosphorus Ferritin Total Bilirubin AST ALT Alkaline Phosphatase Lactate Dehydrogenase Total Creatine Kinase Troponin T C-Reactive Protein NT-Pro-B Natriuret Pep Total Protein Albumin Cholesterol LDL Cholesterol Direct HDL Cholesterol PTH Intact Arterial Blood Glucose Urine WBC (Auto) Urine Creatinine Heparin-induced Plt Ab Lymph Enumerat CD4/CD8 Absolute CD3 Count Absolute CD4 Count % CD8 Cells Absolute CD8 Count Absolute CD19 Count Coronavirus (PCR) HIV-1 RNA PCR copies/ml HIV-1 RNA (PCR) log 09/23/20 09/23/20 09/24/20 17:09 23:51 05:00 WBC 24.2 H RBC 3.23 L Hgb 10.0 L Hct 29.7 L MCV MCH MCHC Plt Count 74 L Lymph % (Auto) [place] % (Auto) Lymph # (Auto) [place] # (Auto) Seg Neutrophils % Seg Neuts % (Manual) Lymphocytes % (Manual) Monocytes % (Manual) Nucleated RBC % Seg Neutrophils # Seg Neutrophils # Man Abs Lymphs (Manual) Lymphocytes # (Manual) PT INR APTT D-Dimer Heparin Anti-Xa Level ABG pH POC ABG pCO2 POC ABG pO2 ABG Oxyhemoglobin ABG Sodium ABG Potassium ABG Glucose Carboxyhemoglobin Sodium Chloride Carbon Dioxide BUN Creatinine Glucose POC Glucose 128 H 128 H Calcium Phosphorus Ferritin Total Bilirubin AST ALT Alkaline Phosphatase Lactate Dehydrogenase Total Creatine Kinase Troponin T C-Reactive Protein NT-Pro-B Natriuret Pep Total Protein Albumin Cholesterol LDL Cholesterol Direct HDL Cholesterol PTH Intact Arterial Blood Glucose Urine WBC (Auto) Urine Creatinine Heparin-induced Plt Ab Lymph Enumerat CD4/CD8 Absolute CD3 Count Absolute CD4 Count % CD8 Cells Absolute CD8 Count Absolute CD19 Count Coronavirus (PCR) HIV-1 RNA PCR copies/ml HIV-1 RNA (PCR) log 09/24/20 09/24/20 09/24/20 05:00 05:00 05:00 WBC RBC Hgb Hct MCV MCH MCHC Plt Count Lymph % (Auto) [place] % (Auto) Lymph # (Auto) [place] # (Auto) Seg Neutrophils % Seg Neuts % (Manual) Lymphocytes % (Manual) Monocytes % (Manual) Nucleated RBC % Seg Neutrophils # Seg Neutrophils # Man Abs Lymphs (Manual) Lymphocytes # (Manual) PT INR APTT D-Dimer 1772.86 H Heparin Anti-Xa Level ABG pH POC ABG pCO2 POC ABG pO2 ABG Oxyhemoglobin ABG Sodium ABG Potassium ABG Glucose Carboxyhemoglobin Sodium Chloride 107.1 H Carbon Dioxide BUN 90 H Creatinine 3.1 H Glucose 118 H POC Glucose Calcium Phosphorus Ferritin 1190.0 H Total Bilirubin AST ALT Alkaline Phosphatase Lactate Dehydrogenase 276 H Total Creatine Kinase Troponin T C-Reactive Protein 4.20 H NT-Pro-B Natriuret Pep Total Protein Albumin Cholesterol LDL Cholesterol Direct HDL Cholesterol PTH Intact Arterial Blood Glucose Urine WBC (Auto) Urine Creatinine Heparin-induced Plt Ab Lymph Enumerat CD4/CD8 Absolute CD3 Count Absolute CD4 Count % CD8 Cells Absolute CD8 Count Absolute CD19 Count Coronavirus (PCR) HIV-1 RNA PCR copies/ml HIV-1 RNA (PCR) log 09/24/20 09/24/20 09/24/20 05:12 11:25 12:09 WBC RBC Hgb Hct MCV MCH MCHC Plt Count Lymph % (Auto) [place] % (Auto) Lymph # (Auto) [place] # (Auto) Seg Neutrophils % Seg Neuts % (Manual) Lymphocytes % (Manual) Monocytes % (Manual) Nucleated RBC % Seg Neutrophils # Seg Neutrophils # Man Abs Lymphs (Manual) Lymphocytes # (Manual) PT INR APTT D-Dimer Heparin Anti-Xa Level ABG pH POC ABG pCO2 POC ABG pO2 ABG Oxyhemoglobin ABG Sodium ABG Potassium ABG Glucose Carboxyhemoglobin Sodium Chloride Carbon Dioxide BUN Creatinine 3.1 H Glucose POC Glucose 114 H 110 H Calcium Phosphorus Ferritin Total Bilirubin AST ALT Alkaline Phosphatase Lactate Dehydrogenase Total Creatine Kinase Troponin T C-Reactive Protein NT-Pro-B Natriuret Pep Total Protein Albumin Cholesterol LDL Cholesterol Direct HDL Cholesterol PTH Intact Arterial Blood Glucose Urine WBC (Auto) Urine Creatinine Heparin-induced Plt Ab Lymph Enumerat CD4/CD8 Absolute CD3 Count Absolute CD4 Count % CD8 Cells Absolute CD8 Count Absolute CD19 Count Coronavirus (PCR) HIV-1 RNA PCR copies/ml HIV-1 RNA (PCR) log 09/24/20 09/24/20 09/24/20 12:13 12:13 17:41 WBC 20.8 H RBC 3.04 L Hgb 9.5 L Hct 28.0 L MCV MCH MCHC Plt Count 78 L Lymph % (Auto) [place] % (Auto) Lymph # (Auto) [place] # (Auto) Seg Neutrophils % Seg Neuts % (Manual) Lymphocytes % (Manual) Monocytes % (Manual) Nucleated RBC % Seg Neutrophils # Seg Neutrophils # Man Abs Lymphs (Manual) Lymphocytes # (Manual) PT 15.7 H INR 1.27 H APTT D-Dimer Heparin Anti-Xa Level ABG pH POC ABG pCO2 POC ABG pO2 ABG Oxyhemoglobin ABG Sodium ABG Potassium ABG Glucose Carboxyhemoglobin Sodium Chloride Carbon Dioxide BUN Creatinine Glucose POC Glucose 133 H Calcium Phosphorus Ferritin Total Bilirubin AST ALT Alkaline Phosphatase Lactate Dehydrogenase Total Creatine Kinase Troponin T C-Reactive Protein NT-Pro-B Natriuret Pep Total Protein Albumin Cholesterol LDL Cholesterol Direct HDL Cholesterol PTH Intact Arterial Blood Glucose Urine WBC (Auto) Urine Creatinine Heparin-induced Plt Ab Lymph Enumerat CD4/CD8 Absolute CD3 Count Absolute CD4 Count % CD8 Cells Absolute CD8 Count Absolute CD19 Count Coronavirus (PCR) HIV-1 RNA PCR copies/ml HIV-1 RNA (PCR) log 09/24/20 09/25/20 09/25/20 23:34 06:40 06:40 WBC RBC Hgb Hct MCV MCH MCHC Plt Count Lymph % (Auto) [place] % (Auto) Lymph # (Auto) [place] # (Auto) Seg Neutrophils % Seg Neuts % (Manual) Lymphocytes % (Manual) Monocytes % (Manual) Nucleated RBC % Seg Neutrophils # Seg Neutrophils # Man Abs Lymphs (Manual) Lymphocytes # (Manual) PT INR APTT D-Dimer Heparin Anti-Xa Level ABG pH POC ABG pCO2 POC ABG pO2 ABG Oxyhemoglobin ABG Sodium ABG Potassium ABG Glucose Carboxyhemoglobin Sodium Chloride 109.0 H Carbon Dioxide BUN 98 H Creatinine 3.0 H 3.0 H Glucose 111 H POC Glucose 113 H Calcium Phosphorus Ferritin Total Bilirubin AST ALT Alkaline Phosphatase Lactate Dehydrogenase Total Creatine Kinase Troponin T C-Reactive Protein NT-Pro-B Natriuret Pep Total Protein Albumin Cholesterol LDL Cholesterol Direct HDL Cholesterol PTH Intact Arterial Blood Glucose Urine WBC (Auto) Urine Creatinine Heparin-induced Plt Ab Lymph Enumerat CD4/CD8 Absolute CD3 Count Absolute CD4 Count % CD8 Cells Absolute CD8 Count Absolute CD19 Count Coronavirus (PCR) HIV-1 RNA PCR copies/ml HIV-1 RNA (PCR) log 09/25/20 09/25/20 09/25/20 10:45 12:45 18:03 WBC 20.7 H RBC 3.33 L Hgb 10.2 L Hct 31.3 L MCV MCH MCHC Plt Count 139 L Lymph % (Auto) [place] % (Auto) Lymph # (Auto) [place] # (Auto) Seg Neutrophils % Seg Neuts % (Manual) Lymphocytes % (Manual) Monocytes % (Manual) Nucleated RBC % Seg Neutrophils # Seg Neutrophils # Man Abs Lymphs (Manual) Lymphocytes # (Manual) PT INR APTT D-Dimer Heparin Anti-Xa Level ABG pH POC ABG pCO2 POC ABG pO2 ABG Oxyhemoglobin ABG Sodium ABG Potassium ABG Glucose Carboxyhemoglobin Sodium Chloride Carbon Dioxide BUN Creatinine Glucose POC Glucose 108 H 114 H Calcium Phosphorus Ferritin Total Bilirubin AST ALT Alkaline Phosphatase Lactate Dehydrogenase Total Creatine Kinase Troponin T C-Reactive Protein NT-Pro-B Natriuret Pep Total Protein Albumin Cholesterol LDL Cholesterol Direct HDL Cholesterol PTH Intact Arterial Blood Glucose Urine WBC (Auto) Urine Creatinine Heparin-induced Plt Ab Lymph Enumerat CD4/CD8 Absolute CD3 Count Absolute CD4 Count % CD8 Cells Absolute CD8 Count Absolute CD19 Count Coronavirus (PCR) HIV-1 RNA PCR copies/ml HIV-1 RNA (PCR) log 09/25/20 09/26/20 09/26/20 23:29 05:00 07:06 WBC 17.0 H RBC 3.10 L Hgb 9.6 L Hct 28.8 L MCV MCH MCHC Plt Count Lymph % (Auto) [place] % (Auto) Lymph # (Auto) [place] # (Auto) Seg Neutrophils % Seg Neuts % (Manual) Lymphocytes % (Manual) Monocytes % (Manual) Nucleated RBC % Seg Neutrophils # Seg Neutrophils # Man Abs Lymphs (Manual) Lymphocytes # (Manual) PT INR APTT D-Dimer Heparin Anti-Xa Level ABG pH POC ABG pCO2 POC ABG pO2 ABG Oxyhemoglobin ABG Sodium ABG Potassium ABG Glucose Carboxyhemoglobin Sodium Chloride Carbon Dioxide BUN Creatinine Glucose POC Glucose 111 H 115 H Calcium Phosphorus Ferritin Total Bilirubin AST ALT Alkaline Phosphatase Lactate Dehydrogenase Total Creatine Kinase Troponin T C-Reactive Protein NT-Pro-B Natriuret Pep Total Protein Albumin Cholesterol LDL Cholesterol Direct HDL Cholesterol PTH Intact Arterial Blood Glucose Urine WBC (Auto) Urine Creatinine Heparin-induced Plt Ab Lymph Enumerat CD4/CD8 Absolute CD3 Count Absolute CD4 Count % CD8 Cells Absolute CD8 Count Absolute CD19 Count Coronavirus (PCR) HIV-1 RNA PCR copies/ml HIV-1 RNA (PCR) log 09/26/20 09/26/20 09/27/20 07:06 17:26 04:00 WBC RBC Hgb Hct MCV MCH MCHC Plt Count Lymph % (Auto) [place] % (Auto) Lymph # (Auto) [place] # (Auto) Seg Neutrophils % Seg Neuts % (Manual) Lymphocytes % (Manual) Monocytes % (Manual) Nucleated RBC % Seg Neutrophils # Seg Neutrophils # Man Abs Lymphs (Manual) Lymphocytes # (Manual) PT INR APTT D-Dimer Heparin Anti-Xa Level ABG pH POC ABG pCO2 POC ABG pO2 ABG Oxyhemoglobin ABG Sodium ABG Potassium ABG Glucose Carboxyhemoglobin Sodium Chloride Carbon Dioxide BUN 69 H 67 H Creatinine 2.2 H 2.3 H Glucose 107 H 121 H POC Glucose 124 H Calcium Phosphorus Ferritin Total Bilirubin AST ALT Alkaline Phosphatase Lactate Dehydrogenase Total Creatine Kinase Troponin T C-Reactive Protein NT-Pro-B Natriuret Pep Total Protein Albumin Cholesterol LDL Cholesterol Direct HDL Cholesterol PTH Intact Arterial Blood Glucose Urine WBC (Auto) Urine Creatinine Heparin-induced Plt Ab Lymph Enumerat CD4/CD8 Absolute CD3 Count Absolute CD4 Count % CD8 Cells Absolute CD8 Count Absolute CD19 Count Coronavirus (PCR) HIV-1 RNA PCR copies/ml HIV-1 RNA (PCR) log 09/27/20 09/27/20 09/27/20 04:00 05:00 17:11 WBC 14.6 H RBC 2.72 L Hgb 8.6 L Hct 25.8 L MCV 95 H MCH MCHC Plt Count Lymph % (Auto) 4.3 L [place] % (Auto) Lymph # (Auto) 0.6 L [place] # (Auto) 0.9 H Seg Neutrophils % 89.6 H Seg Neuts % (Manual) Lymphocytes % (Manual) Monocytes % (Manual) Nucleated RBC % Seg Neutrophils # 13.1 H Seg Neutrophils # Man Abs Lymphs (Manual) Lymphocytes # (Manual) PT INR APTT D-Dimer Heparin Anti-Xa Level ABG pH POC ABG pCO2 POC ABG pO2 ABG Oxyhemoglobin ABG Sodium ABG Potassium ABG Glucose Carboxyhemoglobin Sodium Chloride Carbon Dioxide BUN Creatinine 2.4 H Glucose POC Glucose 132 H Calcium Phosphorus Ferritin Total Bilirubin AST ALT Alkaline Phosphatase Lactate Dehydrogenase Total Creatine Kinase Troponin T C-Reactive Protein NT-Pro-B Natriuret Pep Total Protein Albumin Cholesterol LDL Cholesterol Direct HDL Cholesterol PTH Intact Arterial Blood Glucose Urine WBC (Auto) Urine Creatinine Heparin-induced Plt Ab Lymph Enumerat CD4/CD8 Absolute CD3 Count Absolute CD4 Count % CD8 Cells Absolute CD8 Count Absolute CD19 Count Coronavirus (PCR) HIV-1 RNA PCR copies/ml HIV-1 RNA (PCR) log 09/28/20 09/28/20 09/29/20 04:46 04:46 04:45 WBC 14.6 H RBC 2.66 L Hgb 8.4 L Hct 25.3 L MCV 95 H MCH MCHC Plt Count Lymph % (Auto) [place] % (Auto) Lymph # (Auto) [place] # (Auto) Seg Neutrophils % Seg Neuts % (Manual) Lymphocytes % (Manual) Monocytes % (Manual) Nucleated RBC % Seg Neutrophils # Seg Neutrophils # Man Abs Lymphs (Manual) Lymphocytes # (Manual) PT INR APTT D-Dimer Heparin Anti-Xa Level ABG pH POC ABG pCO2 POC ABG pO2 ABG Oxyhemoglobin ABG Sodium ABG Potassium ABG Glucose Carboxyhemoglobin Sodium Chloride Carbon Dioxide BUN 71 H 63 H Creatinine 2.3 H 2.2 H Glucose 105 H POC Glucose Calcium Phosphorus Ferritin Total Bilirubin AST ALT Alkaline Phosphatase Lactate Dehydrogenase Total Creatine Kinase Troponin T C-Reactive Protein NT-Pro-B Natriuret Pep Total Protein Albumin Cholesterol LDL Cholesterol Direct HDL Cholesterol PTH Intact Arterial Blood Glucose Urine WBC (Auto) Urine Creatinine Heparin-induced Plt Ab Lymph Enumerat CD4/CD8 Absolute CD3 Count Absolute CD4 Count % CD8 Cells Absolute CD8 Count Absolute CD19 Count Coronavirus (PCR) HIV-1 RNA PCR copies/ml HIV-1 RNA (PCR) log 09/29/20 09/29/20 09/29/20 04:45 05:43 17:50 WBC RBC 2.92 L Hgb 9.6 L Hct 28.1 L MCV 96 H MCH 33 H MCHC Plt Count Lymph % (Auto) [place] % (Auto) Lymph # (Auto) [place] # (Auto) Seg Neutrophils % Seg Neuts % (Manual) Lymphocytes % (Manual) Monocytes % (Manual) Nucleated RBC % Seg Neutrophils # Seg Neutrophils # Man Abs Lymphs (Manual) Lymphocytes # (Manual) PT INR APTT D-Dimer Heparin Anti-Xa Level ABG pH POC ABG pCO2 POC ABG pO2 ABG Oxyhemoglobin ABG Sodium ABG Potassium ABG Glucose Carboxyhemoglobin Sodium Chloride Carbon Dioxide BUN Creatinine Glucose POC Glucose 69 L 132 H Calcium Phosphorus Ferritin Total Bilirubin AST ALT Alkaline Phosphatase Lactate Dehydrogenase Total Creatine Kinase Troponin T C-Reactive Protein NT-Pro-B Natriuret Pep Total Protein Albumin Cholesterol LDL Cholesterol Direct HDL Cholesterol PTH Intact Arterial Blood Glucose Urine WBC (Auto) Urine Creatinine Heparin-induced Plt Ab Lymph Enumerat CD4/CD8 Absolute CD3 Count Absolute CD4 Count % CD8 Cells Absolute CD8 Count Absolute CD19 Count Coronavirus (PCR) HIV-1 RNA PCR copies/ml HIV-1 RNA (PCR) log 09/30/20 09/30/20 10/01/20 04:47 04:47 07:16 WBC RBC 2.47 L Hgb 8.1 L Hct 23.9 L MCV 97 H MCH 33 H MCHC Plt Count Lymph % (Auto) [place] % (Auto) Lymph # (Auto) [place] # (Auto) Seg Neutrophils % Seg Neuts % (Manual) Lymphocytes % (Manual) Monocytes % (Manual) Nucleated RBC % Seg Neutrophils # Seg Neutrophils # Man Abs Lymphs (Manual) Lymphocytes # (Manual) PT INR APTT D-Dimer Heparin Anti-Xa Level ABG pH POC ABG pCO2 POC ABG pO2 ABG Oxyhemoglobin ABG Sodium ABG Potassium ABG Glucose Carboxyhemoglobin Sodium Chloride Carbon Dioxide 31 H BUN 63 H 58 H Creatinine 2.1 H 2.2 H Glucose POC Glucose Calcium Phosphorus Ferritin Total Bilirubin AST ALT Alkaline Phosphatase Lactate Dehydrogenase Total Creatine Kinase Troponin T C-Reactive Protein NT-Pro-B Natriuret Pep Total Protein 5.9 L Albumin 2.2 L Cholesterol LDL Cholesterol Direct HDL Cholesterol PTH Intact Arterial Blood Glucose Urine WBC (Auto) Urine Creatinine Heparin-induced Plt Ab Lymph Enumerat CD4/CD8 Absolute CD3 Count Absolute CD4 Count % CD8 Cells Absolute CD8 Count Absolute CD19 Count Coronavirus (PCR) HIV-1 RNA PCR copies/ml HIV-1 RNA (PCR) log Assessment and Plan Assessment and Plan Assessment and plan: This is 70-year-old male with HIV, HTN, and atrial fibrillation (currently on therapeutic anticoagulation with Xarelto) presents the emergency department on 09/17 with complaints of shortness of breath over the past 3 days and on arrival of EMS patient was found to have a pulse oximetry of 85% on room air. He was placed on supplemental oxygenation. Of note patient was admitted on 09/15 with similar complaints and found to have A. fib with RVR, hyponatremia, hypomagnesemia and acute kidney injury and left AMA. He was admitted to the hospital service with atrial fibrillation with RVR, SIRs, metabolic acidosis, acute kidney injury, acute hypoxic respiratory failure, hypotension, and CHF . Cardiology, CCM and nephrology were consulted. Neurology is consulted today due to increase agitation /aggressive behaviour and confusion according to record attempt to give seroquel was not tolerated by the pt. # Finding from hx and exam is suggestive of underling Delirium -he is alert interactive at time does not knows place or date but knows name and birthdate and address -crying wants to go home with the possibilty of under lying reactive depression can not be excluded -recommend psychiatry to see -Haldol 1 mg Iv q 4 hours prn for agitation -hold Seroquel for now - try geodon 10 mg IM q 8 hours prn #Septic Shock resolved #Acute hypoxemic respiratory failure 2/2 to volume overload/chf exacerbation #Acute systolic heart failure exacerbation #Atrial fibrillation with RVR #Acute on chronic kidney injury #Hypotension #Anemia #Thrombocytopenia #E coli bacteremia #E. coli urinary tract infection #NSTEMI #Elevated Ddimer #Leukocytosis #HIV, asymptomatic #HTN #Coagulopathy #Transaminitis DVT/GI prophylaxis: PPI, SCDs to bilateral lower extremities while in bed, no chemical anticoagulation at this time d/t thrombocytopenia will follow
[2020-10-01] MEDS: ASCORBIC ACID 500 MG TAB PO SCH ×2 (09:25→22:01)
[2020-10-01] MEDS: CHOLECALCIFEROL (VIT D3) 1000 UNIT (25 mcg) TAB PO SCH (09:26)
[2020-10-01] MEDS: FAMOTIDINE 20 MG TAB PO SCH (09:26)
[2020-10-01] MEDS: APIXABAN 2.5 MG TAB PO SCH ×2 (09:27→22:01)
[2020-10-01] MEDS: DOLUTEGRAVIR 50 MG TAB PO SCH (09:32)
[2020-10-01] MEDS: METOPROLOL TARTRATE 25 MG TAB PO SCH ×2 (09:33→22:00)
[2020-10-01] MEDS: ZINC SULFATE 220 MG CAP PO SCH (09:35)
[2020-10-01] MEDS ORDERED: AMIODARONE 200 MG TAB PO SCH (10:00)
--- NOTE | 2020-10-01 10:29 | Progress Note ---
Assessment and Plan Assessment and plan: This is 70-year-old male with HIV, HTN, and atrial fibrillation (currently on therapeutic anticoagulation with Xarelto) presents the emergency department on 09/17 with complaints of shortness of breath over the past 3 days and on arrival of EMS patient was found to have a pulse oximetry of 85% on room air. He was placed on supplemental oxygenation. Of note patient was admitted on 09/15 with similar complaints and found to have A. fib with RVR, hyponatremia, hypomagnesemia and acute kidney injury and left AMA. He was admitted to the hospital service with atrial fibrillation with RVR, SIRs, metabolic acidosis, acute kidney injury, acute hypoxic respiratory failure, hypotension, and CHF . Cardiology, CCM and nephrology were consulted. 09/18/2020. Await echocardiogram to assess for diastolic versus systolic etiology. Patient with elevated BNP greater than 18,000. Patient apparently was admitted approximately 3 days ago but left AMA. Cardiology consulted for heart failure, A. fib with RVR and elevated troponin. Patient denies chest pain. Also, patient with elevated creatinine of 4.7 with creatinine 2.8 on recent admission. We do not have a previous creatinine as a baseline to compar e. Nephrology consultation pending. Follow-up renal ultrasound. Patient with coagulopathy and INR 3.04. Unsure if patient was on anticoagulation for A. fib. 09/19/2020. Patient likely with vasomotor acute kidney injury in the setting of shock. Follow-up urine studies and renal ultrasound. Creatinine continues to worsen. Nephrology following. Etiology of respiratory failure secondary to hea rt failure with Covid testing pending. Elevated troponin suggestive of NSTEMI. Continue diuresis with Lasix. Continue IV amiodarone for rate control of A. fib with RVR. Continue heparin. Follow-up echocardiogram. Cardiology following. 09/20/2020: This time my examination patient was on BiPAP therapy and now is on nasal cannula. Patient remains on amiodarone drip with heart rate in the 130s t o 140s and vasopressor support with Levophed. Today nephrology will initiate hemodialysis given worsening renal function studies and has stopped diuresis with Lasix. ID resumed antiretroviral therapy and ordered a HIDA scan. Today the patient received a temporary Vas-Cath and is COVID-19 PCR resulted as positive. Patient will be started on vitamin C, vitamin D and zinc and dexamethasone given need for supplemental oxygenation. 09/21: Ecoli UTI and bacteremia and ID has changed him to meropenem, Patient received HD yesterday and patient remains on amiodarone drip. He is off the floor to obtain a HIDA scan. 09/22: HIDA scan did not show acute cholecystitis. Ecoli bacteremia is sensitive to ceftriaxone and ID changed his abx. Mentation is better. BP is liable. Remains on levophed and vasopressin. We started midodrine. HIT panel pending and hem/onc consulted. 09/23: Patient noted to have unequal pupils with left >right, STAT CT head ordered. Nephro will withhold hemodialysis and assess needs as kidney function has gotten better. Patient symptomatically follows commands and is on nasal cannula. Cardiology stopped his Eliquis due to persistent thrombocytopenia. 09/24: Patient remains confused, pupils still unequal. Started on eliquis 2.5 today and he will be transferred to IMCU. 09/25: Patient remains confused, had Bipap overnight, CT abd/pelvis ordered per ID recommendations given persistent leukocytosis. Cr remains unchanged but BUN in rising. Nephrology is on the case. 09/26/2020; patient was confused and on 3 L of oxygen. ID is following the patient and continue with antiretroviral medications, no OI prophylaxis needed. Patient is on IV Rocephin lasted 09/28 per ID recommendation for E. coli bacteremia. ID ordered CT abdomen and pelvis. We will follow the results. Sulaiman wild is being followed by cardiology and they recommend to resume Eliquis with 2.5 mg p.o. twice daily, thrombocytopenia is improving. Patient is on amiodarone and metoprolol. Patient is being followed by nephrology and is on dialysis. Blood pressure was normal this morning. Patient was tachycardic in A. fib with RVR. CT head was normal. Prognosis is guarded. Continue IMCU care. 09/27: Continue IMCU care, still with unresolved Afib, will continue to adjust medications for better control. 09/28: Start Seroquel DUE TO THE AGITATION, Discussed with daughter, will work on getting Afib better controlled. Per daughter the confusion is new, although some improvement noted today. Patient will benefit from SNF 09/29: Seroquel started today as it was not started yesterday, await PT/OT, Yasmin veronica to monitor mental status, will transfer to Tele. Anticipate discharge when bed available. 09/30: Discussed extensively with the daughter about her clinical condition, Seroquel discontinued as patient did not tolerate, still with low BP responded to Fluids. Hold BB and continue to monitor and redirect. Discussed with Nursing staff. 10/01: Patient seen and examined resting comfortably still with intermittent delirium. Blood pressure has improved although beta-ruddy was held midodrine was given. Will change to Coreg 3.125 with holding parameters on discharge. Per cardiology amiodarone changed to 200 mg daily. Neurology evaluation is still pending. I have initiated placement to a SNF facility and once approved patient can be discharged. Daughter has been updated on medical condition. For now on anticoagulation left in place although outpatient this may be discontinued due to patient's mental status if there is no improvement. Septic Shock Acute hypoxemic respiratory failure 2/2 to volume overload/chf exacerbation Acute systolic heart failure exacerbation Atrial fibrillation with RVR Acute on chronic kidney injury Hypotension Anemia Thrombocytopenia E coli bacteremia Delirium related to critical illness. E. coli urinary tract infection NSTEMI Elevated Ddimer Leukocytosis HIV, asymptomatic HTN Coagulopathy Transaminitis -Cardiology, CCM, Nephrology, ID, general surgery, heme/onc consulted, appreciate recommendations -09/20 COVID-19 PCR positive -Droplet/isolation precautions -Dexamethasone 6 mg p.o. (09/20-09/30) -Vitamin D, vitamin C, zinc -Vasopressor support with levophed and vasopressin, midodrine -09/17 CXR shows borderline heart size, mild central pulmonary venous congestion -09/17 renal ultrasound shows no acute findings -09/18 echocardiogram shows left ventricle systolic function mildly decreased, LVEF of 40 to 45% with mild concentric left ventricle hypertrophy, trace MR, mild TR, trace MI -09/19 abdominal ultrasound shows large gallstone within the gallbladder, no pericholecystic fluid, gallbladder wall upper limits of normal measuring 3 mm -09/21 HIDA scan shows no evidence of acute cholecystitis -09/21 BLE Dopplar US no evidence for DVT -09/23 CT head shows no acute intracranial hemorrhage or parenchymal abnormality, mild diffuse brain atrophy with commensurate ventricular enlargement which is likely age appropriate, small frontal scalp lipoma measuring 9 mm in thickness, 4 cm in length, and 4 cm in width., Sinuses and mastoid air cells are clear. -09/17 proBNP 09841 -S/p IV Lasix twice daily -09/20 nephrology initiated the patient on dialysis -Pulmonary hygiene -Bipap qhs -09/25 CT abd/pelvis without contrast pending -PO amiodarone -HIV meds per ID -IV abx therapy -HIT pending -Trend CBC, BMP, LFTs DVT/GI prophylaxis: PPI, SCDs to bilateral lower extremities while in bed, no chemical anticoagulation at this time d/t thrombocytopenia Disposition: IMCU History Interval history: This is 70-year-old male with HIV, HTN, and atrial fibrillation (currently on therapeutic anticoagulation with Xarelto) admitted with atrial fibrillation with RVR, SIRs, metabolic acidosis, acute kidney injury, acute hypoxic respiratory failure, hypotension, and CHF Patient seen and examined, No new issues reported except agitation and intermittent delirium oxygen has been weaned off without hypoxia noted. Hospitalist Physical - Physical exam Narrative exam: Resting comfortably although intermittently delirious and agitated The patient appeared well nourished and normally developed. Vital signs as documented. Head exam is unremarkable. No scleral icterus . Neck is without jugular venous distension, thyromegaly, or carotid bruits. Lungs are clear to auscultation. Cardiac exam reveals regular rate and Rhythm. Abdominal exam reveals normal bowel sounds, nontender, no organomegaly. Extremities are nonedematous and both femoral and pedal pulses are normal. 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 oriented x2 no focal deficit noted intermittent delirium noted to - Constitutional Vitals: Temp Pulse Resp BP Pulse Ox 97.8 F 101 H 16 131/81 96 10/01/20 04:23 09/30/20 21:05 10/01/20 04:23 10/01/20 04:23 09/30/20 22:00 General appearance: Present: no acute distress HEART Score - HEART Score Troponin: Troponin T < 0.010 ng/mL (0.00-0.029) 09/22/20 05:38 Results - Labs CBC & Chem 7: 09/30/20 04:47 10/01/20 07:16 Labs: Laboratory Last Values WBC 9.3 K/mm3 (4.5-11.0) 09/30/20 04:47 RBC 2.47 M/mm3 (3.65-5.03) L 09/30/20 04:47 Hgb 8.1 gm/dl (11.8-15.2) L 09/30/20 04:47 Hct 23.9 % (35.5-45.6) L 09/30/20 04:47 MCV 97 fl (84-94) H 09/30/20 04:47 MCH 33 pg (28-32) H 09/30/20 04:47 MCHC 34 % (32-34) 09/30/20 04:47 RDW 14.2 % (13.2-15.2) 09/30/20 04:47 Plt Count 240 K/mm3 (140-440) 09/30/20 04:47 Lymph % (Auto) 4.3 % (13.4-35.0) L 09/27/20 04:00 [place] % (Auto) 6.0 % (0.0-7.3) 09/27/20 04:00 Eos % (Auto) 0.1 % (0.0-4.3) 09/27/20 04:00 Baso % (Auto) 0.0 % (0.0-1.8) 09/27/20 04:00 Lymph # (Auto) 0.6 K/mm3 (1.2-5.4) L 09/27/20 04:00 [place] # (Auto) 0.9 K/mm3 (0.0-0.8) H 09/27/20 04:00 Eos # (Auto) 0.0 K/mm3 (0.0-0.4) 09/27/20 04:00 Baso # (Auto) 0.0 K/mm3 (0.0-0.1) 09/27/20 04:00 Add Manual Diff Complete 09/23/20 04:36 Total Counted 100 09/23/20 04:36 Seg Neutrophils % 89.6 % (40.0-70.0) H 09/27/20 04:00 Seg Neuts % (Manual) 91.0 % (40.0-70.0) H 09/23/20 04:36 Band Neutrophils % 2.0 % 09/23/20 04:36 Lymphocytes % (Manual) 2.0 % (13.4-35.0) L 09/23/20 04:36 Monocytes % (Manual) 5.0 % (0.0-7.3) 09/23/20 04:36 Nucleated RBC % Not Reportable 09/23/20 04:36 Seg Neutrophils # 13.1 K/mm3 (1.8-7.7) H 09/27/20 04:00 Seg Neutrophils # Man 12.9 K/mm3 (1.8-7.7) H 09/23/20 04:36 Band Neutrophils # 0.3 K/mm3 09/23/20 04:36 Abs Lymphs (Manual) 223 cells/uL (850-3900) L 09/19/20 13:35 Lymphocytes # (Manual) 0.3 K/mm3 (1.2-5.4) L 09/23/20 04:36 Abs React Lymphs (Man) 0.0 K/mm3 09/23/20 04:36 Monocytes # (Manual) 0.7 K/mm3 (0.0-0.8) 09/23/20 04:36 Eosinophils # (Manual) 0.0 K/mm3 (0.0-0.4) 09/23/20 04:36 Basophils # (Manual) 0.0 K/mm3 (0.0-0.1) 09/23/20 04:36 Metamyelocytes # 0.0 K/mm3 09/23/20 04:36 Myelocytes # 0.0 K/mm3 09/23/20 04:36 Promyelocytes # 0.0 K/mm3 09/23/20 04:36 Blast Cells # 0.0 K/mm3 09/23/20 04:36 WBC Morphology Not Reportable 09/23/20 04:36 Hypersegmented Neuts Not Reportable 09/23/20 04:36 Hyposegmented Neuts Not Reportable 09/23/20 04:36 Hypogranular Neuts Not Reportable 09/23/20 04:36 Smudge Cells Not Reportable 09/23/20 04:36 Toxic Granulation Not Reportable 09/23/20 04:36 Toxic Vacuolation Not Reportable 09/23/20 04:36 Dohle Bodies Not Reportable 09/23/20 04:36 Pelger-Huet Anomaly Not Reportable 09/23/20 04:36 Vinh Rods Not Reportable 09/23/20 04:36 Platelet Estimate Consistent w auto 09/23/20 04:36 Clumped Platelets Not Reportable 09/23/20 04:36 Plt Clumps, EDTA Not Reportable 09/23/20 04:36 Large Platelets Not Reportable 09/23/20 04:36 Giant Platelets Not Reportable 09/23/20 04:36 Platelet Satelliting Not Reportable 09/23/20 04:36 Plt Morphology Comment Not Reportable 09/23/20 04:36 RBC Morphology Not Reportable 09/23/20 04:36 Dimorphic RBCs Not Reportable 09/23/20 04:36 Polychromasia Not Reportable 09/23/20 04:36 Hypochromasia Not Reportable 09/23/20 04:36 Poikilocytosis Not Reportable 09/23/20 04:36 Anisocytosis 1+ 09/23/20 04:36 Microcytosis Not Reportable 09/23/20 04:36 Macrocytosis Not Reportable 09/23/20 04:36 Spherocytes Not Reportable 09/23/20 04:36 Pappenheimer Bodies Not Reportable 09/23/20 04:36 Sickle Cells Not Reportable 09/23/20 04:36 Target Cells Few 09/23/20 04:36 Tear Drop Cells Not Reportable 09/23/20 04:36 Ovalocytes Not Reportable 09/23/20 04:36 Helmet Cells Not Reportable 09/23/20 04:36 [place] Bodies Not Reportable 09/23/20 04:36 Barney Rings Not Reportable 09/23/20 04:36 Vita Cells Not Reportable 09/23/20 04:36 Bite Cells Not Reportable 09/23/20 04:36 Crenated Cell Not Reportable 09/23/20 04:36 Elliptocytes Not Reportable 09/23/20 04:36 Acanthocytes (Spur) Not Reportable 09/23/20 04:36 Rouleaux Not Reportable 09/23/20 04:36 Hemoglobin C Crystals Not Reportable 09/23/20 04:36 Schistocytes Not Reportable 09/23/20 04:36 Malaria parasites Not Reportable 09/23/20 04:36 Zachary Bodies Not Reportable 09/23/20 04:36 Hem Pathologist Commnt No 09/23/20 04:36 PT 15.7 Sec. (12.2-14.9) H 09/24/20 12:13 INR 1.27 (0.87-1.13) H 09/24/20 12:13 APTT 25.7 Sec. (24.2-36.6) 09/24/20 12:13 D-Dimer 1772.86 ng/mlDDU (0-234) H 09/24/20 05:00 Heparin Anti-Xa Level 0.10 U.I./ml (0.3-0.7) L 09/20/20 04:00 Heparin Anti-Xa, Unfract Negative (Negative) 09/22/20 15:12 ABG pH 7.508 (7.320-7.450) H 09/17/20 10:28 POC ABG pCO2 22.8 mmHg (32.0-48.0) L 09/17/20 10:28 POC ABG pO2 66.8 mmHg (83-108) L 09/17/20 10:28 POC ABG HCO3 17.7 09/17/20 10:28 ABG O2 Saturation 93.4 (0-100) 09/17/20 10:28 POC ABG Base Excess -3.5 09/17/20 10:28 ABG Hemoglobin 12.7 (12.0-17.5) 09/17/20 10:28 ABG Oxyhemoglobin 92.7 (94-98) L 09/17/20 10:28 ABG Methemoglobin 0.3 (0.0-1.5) 09/17/20 10:28 ABG Sodium 127.4 mmol/L (136.0-145.0) L 09/17/20 10:28 ABG Potassium 4.7 mmol/L (3.40-4.50) H 09/17/20 10:28 ABG Chloride 101.0 mmol/L (98-107) 09/17/20 10:28 ABG Glucose 121 mg/dL (65-95) H 09/17/20 10:28 Carboxyhemoglobin 0.4 (0.5-1.5) L 09/17/20 10:28 FiO2 % 21 09/17/20 10:28 Sodium 142 mmol/L (137-145) 10/01/20 07:16 Potassium 4.5 mmol/L (3.6-5.0) 10/01/20 07:16 Chloride 106.6 mmol/L (98-107) 10/01/20 07:16 Carbon Dioxide 30 mmol/L (22-30) 10/01/20 07:16 Anion Gap 10 mmol/L 10/01/20 07:16 BUN 58 mg/dL (9-20) H 10/01/20 07:16 Creatinine 2.2 mg/dL (0.8-1.3) H 10/01/20 07:16 Estimated GFR 36 ml/min 10/01/20 07:16 BUN/Creatinine Ratio 26 % 10/01/20 07:16 Glucose 80 mg/dL (75-100) 10/01/20 07:16 POC Glucose 72 mg/dL (70-105) 09/30/20 11:45 Lactic Acid 1.00 mmol/L (0.7-2.0) 09/20/20 17:10 Calcium 8.5 mg/dL (8.4-10.2) 10/01/20 07:16 Phosphorus 2.90 mg/dL (2.5-4.5) 09/26/20 07:06 Magnesium 1.70 mg/dL (1.7-2.3) 09/26/20 07:06 Ferritin 1190.0 ng/mL (30.0-300.0) H 09/24/20 05:00 Total Bilirubin 0.80 mg/dL (0.1-1.2) 09/30/20 04:47 AST 14 units/L (5-40) 09/30/20 04:47 ALT 21 units/L (7-56) 09/30/20 04:47 Alkaline Phosphatase 81 units/L (35-129) 09/30/20 04:47 Lactate Dehydrogenase 276 units/L (91-180) H 09/24/20 05:00 Total Creatine Kinase 20 units/L (55-170) L 09/19/20 03:30 Troponin T < 0.010 ng/mL (0.00-0.029) 09/22/20 05:38 C-Reactive Protein 4.20 mg/dL (0.00-1.30) H 09/24/20 05:00 NT-Pro-B Natriuret Pep 38721 pg/mL (0-900) H 09/17/20 10:47 Total Protein 5.9 g/dL (6.3-8.2) L 09/30/20 04:47 Albumin 2.2 g/dL (3.9-5) L 09/30/20 04:47 Albumin/Globulin Ratio 0.6 % 09/30/20 04:47 Triglycerides 137 mg/dL (2-149) 09/17/20 13:54 Cholesterol 48 mg/dL (50-199) L 09/17/20 13:54 LDL Cholesterol Direct 4 mg/dL (50-130) L 09/17/20 13:54 HDL Cholesterol 9 mg/dL (40-59) L 09/17/20 13:54 Cholesterol/HDL Ratio 5.33 % 09/17/20 13:54 Free PSA See scanned result 09/17/20 17:35 % Free PSA Calc See scanned result 09/17/20 17:35 Total PSA See scanned result 09/17/20 17:35 Procalcitonin 2.10 ng/mL (<0.15) 09/25/20 06:40 PTH Intact 161.4 pg/mL (15-65) H 09/19/20 03:30 Arterial Blood Glucose 121 mg/dL (65-95) H 09/17/20 10:28 Arterial Blood Ionized Calcium 5.0 mg/dL (4.6-5.3) 09/17/20 10:28 Urine Color Yellow (Yellow) 09/18/20 12:00 Urine Turbidity Cloudy (Clear) 09/18/20 12:00 Urine pH 5.0 (5.0-7.0) 09/18/20 12:00 Ur Specific [place] 1.009 (1.003-1.030) 09/18/20 12:00 Urine Protein 30 mg/dl mg/dL (Negative) 09/18/20 12:00 Urine Glucose (UA) Neg mg/dL (Negative) 09/18/20 12:00 Urine Ketones Neg mg/dL (Negative) 09/18/20 12:00 Urine Blood Sm (Negative) 09/18/20 12:00 Urine Nitrite Neg (Negative) 09/18/20 12:00 Urine Bilirubin Neg (Negative) 09/18/20 12:00 Urine Urobilinogen < 2.0 mg/dL (<2.0) 09/18/20 12:00 Ur Leukocyte Esterase Mod (Negative) 09/18/20 12:00 Urine WBC (Auto) 71.0 /HPF (0.0-6.0) H 09/18/20 12:00 Urine RBC (Auto) 2.0 /HPF (0.0-6.0) 09/18/20 12:00 U Epithel Cells (Auto) 1.0 /HPF (0-13.0) 09/18/20 12:00 Urine Bacteria (Auto) 4+ /HPF (Negative) 09/18/20 12:00 Urine WBC Clumps 2+ /HPF 09/18/20 12:00 Hyaline Casts 3 /LPF 09/18/20 12:00 Granular Casts 3 /LPF 09/18/20 12:00 Urine Mucus Few /HPF 09/18/20 12:00 Urine Eosinophils None seen (None Seen) 09/19/20 03:15 Urine Creatinine 61.0 mg/dL (0.1-20.0) H 09/18/20 12:00 Urine Sodium 62 mmol/L 09/18/20 12:00 Random Vancomycin 12.7 ug/mL (0-40.0) 09/19/20 03:30 Heparin-induced Plt Ab Weak positive (Negative) H 09/22/20 15:12 UF Heparin High Dose 0 % Release 09/22/20 15:12 CORAZON UFH Low Dose 0.1 0 % Release 09/22/20 15:12 [place]ON UFH Low Dose 0.5 0 % Release 09/22/20 15:12 Lymph Enumerat CD4/CD8 0.70 (0.86-5.00) L 09/19/20 13:35 % CD3 Cells 79 % (57-85) 09/19/20 13:35 Absolute CD3 Count 175 cells/uL (840-3060) L 09/19/20 13:35 % CD4 Cells 31 % (30-61) 09/19/20 13:35 Absolute CD4 Count 70 cells/uL (490-1740) L 09/19/20 13:35 % CD8 Cells 45 % (12-42) H 09/19/20 13:35 Absolute CD8 Count 101 cells/uL (180-1170) L 09/19/20 13:35 % CD19 Cells 12 % (6-29) 09/19/20 13:35 Absolute CD19 Count 26 cells/uL (110-660) L 09/19/20 13:35 Coronavirus (PCR) Positive (Negative) A 09/18/20 09:39 Hepatitis A IgM Ab Non-reactive (NonReactive) 09/20/20 17:10 Hep Bs Antigen Non-reactive (Negative) 09/20/20 17:10 Hep B Core IgM Ab Non-reactive (NonReactive) 09/20/20 17:10 Hepatitis C Antibody Non-reactive (NonReactive) 09/20/20 17:10 HIV-1 RNA PCR copies/ml 67 Copies/mL H 09/19/20 13:35 HIV-1 RNA (PCR) log 1.83 Log cps/mL H 09/19/20 13:35 Gardner/IV: Voiding Method Condom Catheter Active Medications - Current Medications Current Medications: Generic Name Dose Route Start Last Admin Trade Name Freq PRN Reason Stop Dose Admin Acetaminophen 650 mg 09/17/20 13:52 09/30/20 21:12 Acetaminophen 325 Mg Tab PO 650 mg Q4H PRN Administration Pain MILD(1-3)/Fever >100.5/ANGEL Albuterol 2.5 mg 09/17/20 13:52 09/17/20 20:47 Albuterol 2.5 Mg/3 Ml Nebu IH 2.5 mg Q4HRT PRN Administration Shortness Of Breath Amiodarone HCl 200 mg 10/01/20 10:00 10/01/20 09:26 Amiodarone 200 Mg Tab PO 200 mg DAILY EDIE Administration Lipase/Protease/Amylase 1 each 09/20/20 13:10 Lipase 10,500/Protease 25,000/Amylase 43,750 (Units) Dr Patrick FEEDTUBE PRN PRN For Clogged Feeding Tube Apixaban 2.5 mg 09/24/20 12:00 10/01/20 09:27 Apixaban 2.5 Mg Tab PO 2.5 mg Q12HR EDIE Administration Protocol Ascorbic Acid 500 mg 09/20/20 22:00 10/01/20 09:25 Ascorbic Acid 500 Mg Tab PO 500 mg BID EDIE Administration Cholecalciferol 1,000 unit 09/21/20 10:00 10/01/20 09:26 Cholecalciferol (Vit D3) 1000 Unit (25 Mcg) Tab PO 1,000 unit QDAY EDIE Administration Emtricitabine 200 mg 09/30/20 11:00 09/30/20 15:28 Emtricitabine 200 Mg Cap PO 200 mg Q48H EDIE Administration Famotidine 20 mg 09/24/20 10:00 10/01/20 09:26 Famotidine 20 Mg Tab PO 20 mg DAILY EDIE Administration Heparin Sodium (Porcine) 3,000 unit 09/20/20 10:06 Heparin 10,000 Units/10 Ml Vial IV VIRGIL PRN hemodialysis Sodium Chloride 100 mls @ 999 mls/hr 09/20/20 10:06 Nacl 0.9% IV VIRGIL PRN Hypotension Metoprolol Tartrate 5 mg 09/19/20 19:06 09/24/20 10:59 Metoprolol Tartrate 5 Mg/5 Ml Inj IV 5 mg Q8HR PRN Administration HR > 135 Minute Metoprolol Tartrate 25 mg 09/29/20 18:34 10/01/20 09:33 Metoprolol Tartrate 25 Mg Tab PO Not Given BID EDIE Midodrine 5 mg 09/22/20 12:00 10/01/20 08:00 Midodrine 5 Mg Tab PO 5 mg TID@0800,1200,1600 EDIE Administration Ondansetron HCl 4 mg 09/17/20 13:52 Ondansetron 4 Mg/2 Ml Inj IV Q8H PRN Nausea And Vomiting Simple Syrup 15 ml 09/20/20 13:10 Simple Syrup 15 Ml FEEDTUBE PRN PRN Hypoglycemia Simple Syrup 30 ml 09/20/20 13:10 Simple Syrup 15 Ml FEEDTUBE PRN PRN Hypoglycemia Sodium Bicarbonate 325 mg 09/20/20 13:10 Sodium Bicarbonate 325 Mg Tab FEEDTUBE PRN PRN For Clogged Feeding Tube Sodium Chloride 10 ml 09/17/20 22:00 10/01/20 09:29 Sodium Chloride 0.9% 10 Ml Flush Syringe IV 10 ml BID EDIE Administration Sodium Chloride 10 ml 09/17/20 13:52 09/24/20 09:15 Sodium Chloride 0.9% 10 Ml Flush Syringe IV 10 ml PRN PRN Administration LINE FLUSH Tenofovir Disoproxil Fumarate 300 mg 09/30/20 11:00 09/30/20 15:35 Tenofovir 300 Mg Tab PO 300 mg Q48H EDIE Administration Zinc Sulfate 220 mg 09/21/20 10:00 10/01/20 09:35 Zinc Sulfate 220 Mg Cap PO 220 mg QDAY EDIE Administration Nutrition/Malnutrition Assess - Dietary Evaluation Nutrition/Malnutrition Findings: Nutrition Notes Start: 09/18/20 11:30 Freq: Status: Active Protocol: Document 09/27/20 13:30 MARILULEEANNA (Rec: 09/27/20 13:40 [facility] [id number]) Nutrition Notes Initial or Follow up Reassessment Current Diagnosis Acute Kidney Injury,Sepsis, Hypertension,Heart Failure, Respiratory Failure Other Pertinent Diagnosis COVID-19 (+), AMS, UTI, afib with RVR, HIV (+) Current Diet TF - Nepro at 45ml/hr Labs/Tests BUN 67 Cr 2.3 Pertinent Medications Reviewed Height 6 ft 1 in Weight 73 kg [place] Body Weight (kg) 83.63 BMI 21.2 Weight Status Underweight Subjective/Other Information Pt pulled out NGT yesterday, however, it was re-inserted and confirmed by KUB. Spoke with RN via phone at 13:28. Pt tolerating TF at goal rate. Percent of energy/protein needs met: 100% energy 99% pro Burn Absent Trauma Absent #2 Nutrition Diagnosis Inadequate oral intake Diagnosis Progress(for reassessment Continues documentation) Is patient on ventilator? No Is Patient Ambulatory and/or Out of Bed No REE-([place]-confined to bed) 1858.500 Kcal/Kg value to use for calculation 30 Approximate Energy Requirements Using 2190 kcal/Kg Calculation Used for Recommendations Kcal/kg Additional Notes Pro needs >1.2g/kg: >88g/day Fluid needs 1-1.5L/day Nutrition Intervention Nutrition Support: Continue Nepro at 45 ml/hr with a free water flush of 200 ml q4h Kcal 1,944 Protein (gm) 87 Fluid (mL) 785 Goal #1 TF tolerance Goal #2 TF to meet 75-100% energy and pro needs Goal #3 Wt maintenance and/or gain Follow-Up By: 10/04/20 Additional Comments F/U: stable TF, wt
--- NOTE | 2020-10-01 10:48 | Progress Note ---
Assessment and Plan * A. fib with RVR * Telemetry reviewed: A. fib 120s. No events * Optimize rate control: Increase amiodarone to 200 mg p.o. twice daily, con tinue metoprolol 25 mg twice daily * Continue anticoagulation with Eliquis 2.5 mg twice daily in setting of renal disease. Repeat CBC/BMP in a.m. * NSTEMI * Troponins elevated, subacute and nonspecific over the weekend. Suspect lab error. Repeat troponins are normal x2 * Echocardiogram reviewed (09/18/2020): LVEF is 40 to 45%. LVSF is mildly decreased. Mild concentric LVH. RVSF is mildly reduced. No valvular abnormalities. * LOLI with acute tubular necrosis * Patient on dialysis. Nephrology is following. * No GEMA/ARB in setting of LOLI. Avoid nephrotoxic agents. * DVT prophylaxis * Currently on Eliquis We will follow This patient was seen in conjunction with Dr Feliciano Grey who agrees with this assessment and plan of care - Patient Problems (1) AMS (altered mental status) Current Visit: Yes Status: Acute Qualifiers: Altered mental status type: somnolence Qualified Code(s): R40.0 - Somnolence (2) Acute hypoxemic respiratory failure Current Visit: Yes Status: Acute (3) Acute kidney injury (LOLI) with acute tubular necrosis (ATN) Current Visit: Yes Status: Acute (4) Atrial fibrillation with RVR Current Visit: Yes Status: Acute (5) NSTEMI (non-ST elevated myocardial infarction) Current Visit: Yes Status: Acute (6) Metabolic acidosis Current Visit: No Status: Acute (7) Systemic inflammatory response syndrome Current Visit: No Status: Acute Subjective Date of service: 10/01/20 Principal diagnosis: Acute Resp Fail, Sepsis, AF with RVR Interval history: Patient is resting in bed. Altered mental status. Telemetry reviewed: A. fib 120s. No events. Objective Last Vital Signs Temp 97.8 F 10/01/20 04:23 Pulse 101 H 09/30/20 21:05 Resp 16 10/01/20 04:23 BP 131/81 10/01/20 04:23 Pulse Ox 96 09/30/20 22:00 - Physical Examination General: No Apparent Distress HEENT: Positive: Normocephaly, Mucus Membranes Moist Neck: Positive: neck supple. Negative: JVD/HJR Cardiac: Positive: irregularly irregular, S1/S2 Lungs: Positive: Normal Exam Neuro: Positive: Grossly Intact Abdomen: Positive: Soft Skin: Negative: Rash Musculoskeletal: No Fluid Collection Extremities: Present: upper extr. pulses, lower extr. pulses. Absent: edema - Labs and Meds Comprehensive Metabolic Panel 10/01/20 Range/Units 07:16 Sodium 142 (137-145) mmol/L Potassium 4.5 (3.6-5.0) mmol/L Chloride 106.6 (98-107) mmol/L Carbon Dioxide 30 (22-30) mmol/L BUN 58 H (9-20) mg/dL Creatinine 2.2 H (0.8-1.3) mg/dL Glucose 80 (75-100) mg/dL Calcium 8.5 (8.4-10.2) mg/dL - Imaging and Cardiology EKG: report reviewed, image reviewed Echo: report reviewed (09/18/2020 - EF 40-45%, mild concentric LVH, RV sys fxn mildly reduced, no significant valvular abnormality) - EKG Supraventricular dysrhythmia: atrial fibrillation Myocardial infarction: septal NE (old age or ind, anterior NE (old age or i - Allied health notes Allied health notes reviewed: nursing
[2020-10-01] MEDS ORDERED: LORazepam 2 MG/ML VIAL IV ONE (11:00)
[2020-10-01] MEDS: VALPROATE SODIUM 500 MG in SODIUM CHLORIDE 0.9% 100 ML IV SCH ×2 (12:30→22:01)
--- NOTE | 2020-10-01 13:28 | Progress Note ---
Assessment and Plan 1. Acute kidney injury: Vasomotor LOLI in the setting of shock. ATN likely. Renal US negative for hydro. Multiple bladder scan negative. Patient require hemodialysis due to significant decline in the renal function. Hemodialysis: 09/20, 09/21, 09/25. Monitor renal function. Creatinine leveled off. Renal prognosis is guarded. Avoid nephrotoxic agents. Meds dosage based on GFR. Monitor for [employer] needs. 2. FEN: Metabolic acidosis, improved, monitor. Monitor volume status and lytes. 3. Acute hypoxic respiratory failure: Covid test positive. Supplemental O2. 4. Acute CHF: Echocardiogram: EF 40-45%. CHF orderset / pathway. Monitor. 5. Atrial fibrillation with RVR: On Amio and Metoprolol. Followed by Cards. 6. Elevated troponin: Followed by Cards. 7. Coagulopathy: Trend. 8. Shock / Hypotension: Multifactorial, monitor. Off pressors. 9. Elevated Transaminases: Improving. 10. Metabolic encephalopathy: Monitor. 11. HIV. 12. Anemia, POA: Monitor. Subjective: Patient was seen and examined at the bedside. Pt pulled out the dialysis catheter yesterday. Objective: General appearance: well-developed, appears stated age, not in distress HEENT: ATNC, L pupil dilated Neck: trachea midline Respiratory: bilateral diminished breath sounds Heart: S1S2, irregular, no murmur Abdomen: soft, normoactive bowel sounds, not tender Integumentary: no obvious rash Ext: no edema Neurologic: lethargic, non-verbal, not following any command Hemodialysis access: none Subjective Date of service: 10/01/20 Principal diagnosis: Acute Resp Fail, Sepsis, AF with RVR Objective - Vital Signs Vital signs: Vital Signs - 12hr 10/01/20 04:23 Temperature 97.8 F Respiratory 16 Rate Blood Pressure 131/81 - Lab 09/30/20 04:47 10/01/20 07:16 Most recent lab results ABG pH 7.508 (7.320-7.450) H 09/17/20 10:28 ABG O2 Saturation 93.4 (0-100) 09/17/20 10:28 Calcium 8.5 mg/dL (8.4-10.2) 10/01/20 07:16 Phosphorus 2.90 mg/dL (2.5-4.5) 09/26/20 07:06 Magnesium 1.70 mg/dL (1.7-2.3) 09/26/20 07:06 Urine Creatinine 61.0 mg/dL (0.1-20.0) H 09/18/20 12:00 Urine Sodium 62 mmol/L 09/18/20 12:00 Medications & Allergies - Medications Allergies/Adverse Reactions: Allergies heparin Adverse Reaction (Verified 09/29/20 16:33) thrombocytopenia PF4 Home Medications: Home Medications Medication Instructions Recorded Confirmed Last Taken Type AtorvaSTATin [Lipitor] 20 mg PO QHS 09/18/20 09/18/20 Unknown History Dolutegravir [Tivicay] 50 mg PO DAILY 09/18/20 09/18/20 Unknown History Emtricitabine/Tenofov Alafenam 1 tab PO DAILY 09/18/20 09/18/20 Unknown History [Descovy 200-25 mg (Nf)] allopurinoL [Zyloprim] 300 mg PO QDAY 09/18/20 09/18/20 Unknown History Amiodarone [Cordarone 200 MG TAB] 200 mg PO DAILY #60 tablet 10/01/20 Unknown Rx Apixaban [Eliquis] 2.5 mg PO Q12HR #60 tablet 10/01/20 Unknown Rx Ascorbic Acid [Vitamin C] 500 mg PO BID #60 tablet 10/01/20 Unknown Rx Cholecalciferol Vit D3 [Vitamin D3 1,000 unit PO QDAY #30 tablet 10/01/20 Unknown Rx 1,000 UNIT TAB] Famotidine [Pepcid] 20 mg PO DAILY #30 tablet 10/01/20 Unknown Rx Midodrine [Proamatine] 5 mg PO TID@0800,1200,1600 #90 10/01/20 Unknown Rx tablet QUEtiapine [SEROquel] 25 mg PO BID #30 tablet 10/01/20 Unknown Rx Zinc Sulfate 220 mg PO QDAY #30 capsule 10/01/20 Unknown Rx carvediloL [Coreg] 3.125 mg PO BID #60 tablet 10/01/20 Unknown Rx haloperidoL [Haldol] 2 mg PO Q8H PRN #30 tablet 10/01/20 Unknown Rx Active Medications: Generic Name Dose Route Start Last Admin Trade Name Freq PRN Reason Stop Dose Admin Acetaminophen 650 mg 09/17/20 13:52 09/30/20 21:12 Acetaminophen 325 Mg Tab PO 650 mg Q4H PRN Administration Pain MILD(1-3)/Fever >100.5/ANGEL Albuterol 2.5 mg 09/17/20 13:52 09/17/20 20:47 Albuterol 2.5 Mg/3 Ml Nebu IH 2.5 mg Q4HRT PRN Administration Shortness Of Breath Amiodarone HCl 200 mg 10/01/20 10:00 10/01/20 09:26 Amiodarone 200 Mg Tab PO 200 mg DAILY EDIE Administration Lipase/Protease/Amylase 1 each 09/20/20 13:10 Lipase 10,500/Protease 25,000/Amylase 43,750 (Units) Dr Patrick FEEDTUBE PRN PRN For Clogged Feeding Tube Apixaban 2.5 mg 09/24/20 12:00 10/01/20 09:27 Apixaban 2.5 Mg Tab PO 2.5 mg Q12HR EDIE Administration Protocol Ascorbic Acid 500 mg 09/20/20 22:00 10/01/20 09:25 Ascorbic Acid 500 Mg Tab PO 500 mg BID EDIE Administration Cholecalciferol 1,000 unit 09/21/20 10:00 10/01/20 09:26 Cholecalciferol (Vit D3) 1000 Unit (25 Mcg) Tab PO 1,000 unit QDAY EDIE Administration Emtricitabine 200 mg 09/30/20 11:00 09/30/20 15:28 Emtricitabine 200 Mg Cap PO 200 mg Q48H EDIE Administration Famotidine 20 mg 09/24/20 10:00 10/01/20 09:26 Famotidine 20 Mg Tab PO 20 mg DAILY EIDE Administration Haloperidol Lactate 5 mg 10/01/20 11:34 Haloperidol Lactate 5 Mg/1 Ml Inj IM Q6H PRN Agitation Heparin Sodium (Porcine) 3,000 unit 09/20/20 10:06 Heparin 10,000 Units/10 Ml Vial IV VIRGIL PRN hemodialysis Sodium Chloride 100 mls @ 999 mls/hr 09/20/20 10:06 Nacl 0.9% IV VIRGIL PRN Hypotension Valproate Sodium 500 mg/ 105 mls @ 100 mls/hr 10/01/20 12:30 Sodium Chloride IV Q12HR [facility] Metoprolol Tartrate 5 mg 09/19/20 19:06 09/24/20 10:59 Metoprolol Tartrate 5 Mg/5 Ml Inj IV 5 mg Q8HR PRN Administration HR > 135 Minute Metoprolol Tartrate 25 mg 09/29/20 18:34 10/01/20 09:33 Metoprolol Tartrate 25 Mg Tab PO Not Given BID EDIE Midodrine 5 mg 09/22/20 12:00 10/01/20 11:28 Midodrine 5 Mg Tab PO 5 mg TID@0800,1200,1600 EDIE Administration Ondansetron HCl 4 mg 09/17/20 13:52 Ondansetron 4 Mg/2 Ml Inj IV Q8H PRN Nausea And Vomiting Simple Syrup 15 ml 09/20/20 13:10 Simple Syrup 15 Ml FEEDTUBE PRN PRN Hypoglycemia Simple Syrup 30 ml 09/20/20 13:10 Simple Syrup 15 Ml FEEDTUBE PRN PRN Hypoglycemia Sodium Bicarbonate 325 mg 09/20/20 13:10 Sodium Bicarbonate 325 Mg Tab FEEDTUBE PRN PRN For Clogged Feeding Tube Sodium Chloride 10 ml 09/17/20 22:00 10/01/20 09:29 Sodium Chloride 0.9% 10 Ml Flush Syringe IV 10 ml BID EDIE Administration Sodium Chloride 10 ml 09/17/20 13:52 09/24/20 09:15 Sodium Chloride 0.9% 10 Ml Flush Syringe IV 10 ml PRN PRN Administration LINE FLUSH Tenofovir Disoproxil Fumarate 300 mg 09/30/20 11:00 09/30/20 15:35 Tenofovir 300 Mg Tab PO 300 mg Q48H EDIE Administration Zinc Sulfate 220 mg 09/21/20 10:00 10/01/20 09:35 Zinc Sulfate 220 Mg Cap PO 220 mg QDAY EDIE Administration
--- NOTE | 2020-10-01 13:47 | Progress Note ---
Assessment and Plan Cultures: 09/18/2020 COVID-19 PCR: Positive 09/18/2020 blood culture: E.coli 09/18/2020 Urine culture: E.coli 09/19/2020 sputum culture: Contaminated with oral secretions 09/19/2020 HIV RNA PCR: 67 copies per mL Assessment: 70-year-old male with history of HIV infection (unknown CD4/VL/ART compliance), hypertension, atrial fibrillation on Xarelto, initially admitted on 09/15/2020 RVR A. fib, LOLI, left AMA, came back to the ED on 09/17/2020 secondary to worsening shortness of breath for 3 days: #Severe sepsis with septic shock: Shock resolved. Remains with leukocytosis. Secondary to E.coli bacteremia likely from UTI. HIDA scan negative for acute cholecystitis. #E.coli bacteremia: Likely from UTI. RUQ US did show a large GB stone. Labs initially with elevated LFTs and bilirubin. HIDA negative. Was seen by Gen Surg. #UTI: Urinalysis with 71 WBCs and moderate leukocyte esterase. Urine culture with E.coli #COVID-19: PCR positive. On supplemental oxygen. Was not given remdesivir due to renal failure. #LOLI: renally dose meds and antimicrobials. On HD. #Acute respiratory hypoxic failure: Remains on 3 L #HIV: listed meds are Descovy + Tivicay. Likely good control since his HIV RNA PCR came back at 67 copies/ml. CD4 is 70 but 30%, overall count is low likely due to steroids. OI prophylaxis is not needed. #Acute encephalopathy: ?multifactorial. CT head unremarkable for acute process. Remains confused. Recommendations: -Monitor mentation, patient remains confused pulled-out Vas-Cath -Completed IV ceftriaxone 2 g daily ending 09/28/2020 (total 10 days) -Completed steroid course for COVID-19 -continue renally dosed antiretroviral therapy based on formulary/therapeutic interchange: TDF + FTC + DTG -Monitor off antibiotics Will sign off please call us if any question Arlene Patel MD Infectious Diseases [facility] ([facility] M [phone] O [phone] Subjective Date of service: 10/01/20 Principal diagnosis: Acute Resp Fail, Sepsis, AF with RVR Interval history: Patient remains confused, agitated, no fever.. Objective - Exam Narrative Exam: General appearance: Alert in no acute distress Eyes: anicteric sclerae, moist conjunctivae; no HENT: Normocephalic, Atraumatic; normal external ears, limited Neck: supple, tracheal midline, no JVD Lungs: Limited due to agitation CV: RRR Abdomen: Soft, nontender Extremities: No edema Skin: No rash. Psych: Anxious agitated Neuro: Alert, confused - Constitutional Vitals: Vital Signs Temp Pulse Resp BP Pulse Ox 97.8 F 101 H 16 131/81 96 10/01/20 04:23 09/30/20 21:05 10/01/20 04:23 10/01/20 04:23 09/30/20 22:00 Temperature -Last 24 Hours Temperature 97.8 F Temperature 97.9 F Temperature 98.8 F - Labs CBC & Chem 7: 09/30/20 04:47 10/01/20 07:16 Labs: Abnormal lab results 10/01/20 Range/Units 07:16 BUN 58 H (9-20) mg/dL Creatinine 2.2 H (0.8-1.3) mg/dL
[2020-10-01] MEDS ORDERED: METOPROLOL TARTRATE 25 MG TAB PO SCH (15:18)
[2020-10-01] MEDS ORDERED: METOPROLOL TARTRATE 50 MG TAB PO SCH ×2 (16:00)
[2020-10-01] MEDS: AMIODARONE 200 MG TAB PO SCH (22:02)
[2020-10-02 06:40] LABS: Calcium 8.7 mg/dL (8.4-10.2)
--- NOTE | 2020-10-02 08:35 | Progress Note ---
Assessment and Plan Assessment and plan: This is 70-year-old male with HIV, HTN, and atrial fibrillation (currently on therapeutic anticoagulation with Xarelto) presents the emergency department on 09/17 with complaints of shortness of breath over the past 3 days and on arrival of EMS patient was found to have a pulse oximetry of 85% on room air. He was placed on supplemental oxygenation. Of note patient was admitted on 09/15 with similar complaints and found to have A. fib with RVR, hyponatremia, hypomagnesemia and acute kidney injury and left AMA. He was admitted to the hospital service with atrial fibrillation with RVR, SIRs, metabolic acidosis, acute kidney injury, acute hypoxic respiratory failure, hypotension, and CHF . Cardiology, CCM and nephrology were consulted. 09/18/2020. Await echocardiogram to assess for diastolic versus systolic etiology. Patient with elevated BNP greater than 18,000. Patient apparently was admitted approximately 3 days ago but left AMA. Cardiology consulted for heart failure, A. fib with RVR and elevated troponin. Patient denies chest pain. Also, patient with elevated creatinine of 4.7 with creatinine 2.8 on recent admission. We do not have a previous creatinine as a baseline to compar e. Nephrology consultation pending. Follow-up renal ultrasound. Patient with coagulopathy and INR 3.04. Unsure if patient was on anticoagulation for A. fib. 09/19/2020. Patient likely with vasomotor acute kidney injury in the setting of shock. Follow-up urine studies and renal ultrasound. Creatinine continues to worsen. Nephrology following. Etiology of respiratory failure secondary to hea rt failure with Covid testing pending. Elevated troponin suggestive of NSTEMI. Continue diuresis with Lasix. Continue IV amiodarone for rate control of A. fib with RVR. Continue heparin. Follow-up echocardiogram. Cardiology following. 09/20/2020: This time my examination patient was on BiPAP therapy and now is on nasal cannula. Patient remains on amiodarone drip with heart rate in the 130s t o 140s and vasopressor support with Levophed. Today nephrology will initiate hemodialysis given worsening renal function studies and has stopped diuresis with Lasix. ID resumed antiretroviral therapy and ordered a HIDA scan. Today the patient received a temporary Vas-Cath and is COVID-19 PCR resulted as positive. Patient will be started on vitamin C, vitamin D and zinc and dexamethasone given need for supplemental oxygenation. 09/21: Ecoli UTI and bacteremia and ID has changed him to meropenem, Patient received HD yesterday and patient remains on amiodarone drip. He is off the floor to obtain a HIDA scan. 09/22: HIDA scan did not show acute cholecystitis. Ecoli bacteremia is sensitive to ceftriaxone and ID changed his abx. Mentation is better. BP is liable. Remains on levophed and vasopressin. We started midodrine. HIT panel pending and hem/onc consulted. 09/23: Patient noted to have unequal pupils with left >right, STAT CT head ordered. Nephro will withhold hemodialysis and assess needs as kidney function has gotten better. Patient symptomatically follows commands and is on nasal cannula. Cardiology stopped his Eliquis due to persistent thrombocytopenia. 09/24: Patient remains confused, pupils still unequal. Started on eliquis 2.5 today and he will be transferred to IMCU. 09/25: Patient remains confused, had Bipap overnight, CT abd/pelvis ordered per ID recommendations given persistent leukocytosis. Cr remains unchanged but BUN in rising. Nephrology is on the case. 09/26/2020; patient was confused and on 3 L of oxygen. ID is following the patient and continue with antiretroviral medications, no OI prophylaxis needed. Patient is on IV Rocephin lasted 09/28 per ID recommendation for E. coli bacteremia. ID ordered CT abdomen and pelvis. We will follow the results. Sulaiman wild is being followed by cardiology and they recommend to resume Eliquis with 2.5 mg p.o. twice daily, thrombocytopenia is improving. Patient is on amiodarone and metoprolol. Patient is being followed by nephrology and is on dialysis. Blood pressure was normal this morning. Patient was tachycardic in A. fib with RVR. CT head was normal. Prognosis is guarded. Continue IMCU care. 09/27: Continue IMCU care, still with unresolved Afib, will continue to adjust medications for better control. 09/28: Start Seroquel DUE TO THE AGITATION, Discussed with daughter, will work on getting Afib better controlled. Per daughter the confusion is new, although some improvement noted today. Patient will benefit from SNF 09/29: Seroquel started today as it was not started yesterday, await PT/OT, Yasmin veronica to monitor mental status, will transfer to Tele. Anticipate discharge when bed available. 09/30: Discussed extensively with the daughter about her clinical condition, Seroquel discontinued as patient did not tolerate, still with low BP responded to Fluids. Hold BB and continue to monitor and redirect. Discussed with Nursing staff. 10/01: Patient seen and examined resting comfortably still with intermittent delirium. Blood pressure has improved although beta-ruddy was held midodrine was given. Will change to Coreg 3.125 with holding parameters on discharge. Per cardiology amiodarone changed to 200 mg daily. Neurology evaluation is still pending. I have initiated placement to a SNF facility and once approved patient can be discharged. Daughter has been updated on medical condition. For now on anticoagulation left in place although outpatient this may be discontinued due to patient's mental status if there is no improvement. 10/02: Neurology evaluated the patient for increased agitation and aggressive behavior and confusion. Exam suggestive of delirium stopped. Due to not tolerating Seroquel, now Geodon trial Haldol however recommended also valproic acid. No overnight issues reported. Continue awaiting SNF placement for continued rehab. Blood pressure has remained stable no further fever recorded. Monitor for any recurrence of the pain in the leg. Septic Shock Acute hypoxemic respiratory failure 2/2 to volume overload/chf exacerbation Acute systolic heart failure exacerbation Atrial fibrillation with RVR Acute on chronic kidney injury Hypotension Anemia Thrombocytopenia E coli bacteremia Delirium related to critical illness. E. coli urinary tract infection NSTEMI Elevated Ddimer Leukocytosis HIV, asymptomatic HTN Coagulopathy Transaminitis -Cardiology, CCM, Nephrology, ID, general surgery, heme/onc consulted, appreciate recommendations -09/20 COVID-19 PCR positive -Droplet/isolation precautions -Dexamethasone 6 mg p.o. (09/20-09/30) -Vitamin D, vitamin C, zinc -Vasopressor support with levophed and vasopressin, midodrine -09/17 CXR shows borderline heart size, mild central pulmonary venous congestion -09/17 renal ultrasound shows no acute findings -09/18 echocardiogram shows left ventricle systolic function mildly decreased, LVEF of 40 to 45% with mild concentric left ventricle hypertrophy, trace MR, mild TR, trace NH -09/19 abdominal ultrasound shows large gallstone within the gallbladder, no pericholecystic fluid, gallbladder wall upper limits of normal measuring 3 mm -09/21 HIDA scan shows no evidence of acute cholecystitis -09/21 BLE Dopplar US no evidence for DVT -09/23 CT head shows no acute intracranial hemorrhage or parenchymal abnormality, mild diffuse brain atrophy with commensurate ventricular enlargement which is likely age appropriate, small frontal scalp lipoma measuring 9 mm in thickness, 4 cm in length, and 4 cm in width., Sinuses and mastoid air cells are clear. -09/17 proBNP 22291 -S/p IV Lasix twice daily -09/20 nephrology initiated the patient on dialysis -Pulmonary hygiene -Bipap qhs -09/25 CT abd/pelvis without contrast pending -PO amiodarone -HIV meds per ID -IV abx therapy -HIT pending -Trend CBC, BMP, LFTs DVT/GI prophylaxis: PPI, SCDs to bilateral lower extremities while in bed, no chemical anticoagulation at this time d/t thrombocytopenia Disposition: IMCU History Interval history: This is 70-year-old male with HIV, HTN, and atrial fibrillation (currently on th erapeutic anticoagulation with Xarelto) admitted with atrial fibrillation with RVR, SIRs, metabolic acidosis, acute kidney injury, acute hypoxic respiratory failure, hypotension, and CHF Patient seen and examined, was teary this morning reported some pain in the leg. Although has since resolved. Hospitalist Physical - Physical exam Narrative exam: Resting comfortably although intermittently delirious and agitated The patient appeared well nourished and normally developed. Vital signs as documented. Head exam is unremarkable. No scleral icterus . Neck is without jugular venous distension, thyromegaly, or carotid bruits. Lungs are clear to auscultation. Cardiac exam reveals regular rate and Rhythm. Abdominal exam reveals normal bowel sounds, nontender, no organomegaly. Extremities are nonedematous and both femoral and pedal pulses are normal. DIRECTOR BUSINESS MANAGEMENT: Alert awake oriented x2 no focal deficit noted intermittent delirium noted to - Constitutional Vitals: Temp Pulse Resp BP Pulse Ox 97.9 F 70 16 117/82 90 10/02/20 04:09 10/01/20 22:00 10/02/20 04:09 10/02/20 04:09 10/01/20 21:54 General appearance: Present: no acute distress HEART Score - HEART Score Troponin: Troponin T < 0.010 ng/mL (0.00-0.029) 09/22/20 05:38 Results - Labs CBC & Chem 7: 09/30/20 04:47 10/02/20 05:10 Labs: Laboratory Last Values WBC 9.3 K/mm3 (4.5-11.0) 09/30/20 04:47 RBC 2.47 M/mm3 (3.65-5.03) L 09/30/20 04:47 Hgb 8.1 gm/dl (11.8-15.2) L 09/30/20 04:47 Hct 23.9 % (35.5-45.6) L 09/30/20 04:47 MCV 97 fl (84-94) H 09/30/20 04:47 MCH 33 pg (28-32) H 09/30/20 04:47 MCHC 34 % (32-34) 09/30/20 04:47 RDW 14.2 % (13.2-15.2) 09/30/20 04:47 Plt Count 240 K/mm3 (140-440) 09/30/20 04:47 Lymph % (Auto) 4.3 % (13.4-35.0) L 09/27/20 04:00 Tucker % (Auto) 6.0 % (0.0-7.3) 09/27/20 04:00 Eos % (Auto) 0.1 % (0.0-4.3) 09/27/20 04:00 Baso % (Auto) 0.0 % (0.0-1.8) 09/27/20 04:00 Lymph # (Auto) 0.6 K/mm3 (1.2-5.4) L 09/27/20 04:00 Tucker # (Auto) 0.9 K/mm3 (0.0-0.8) H 09/27/20 04:00 Eos # (Auto) 0.0 K/mm3 (0.0-0.4) 09/27/20 04:00 Baso # (Auto) 0.0 K/mm3 (0.0-0.1) 09/27/20 04:00 Add Manual Diff Complete 09/23/20 04:36 Total Counted 100 09/23/20 04:36 Seg Neutrophils % 89.6 % (40.0-70.0) H 09/27/20 04:00 Seg Neuts % (Manual) 91.0 % (40.0-70.0) H 09/23/20 04:36 Band Neutrophils % 2.0 % 09/23/20 04:36 Lymphocytes % (Manual) 2.0 % (13.4-35.0) L 09/23/20 04:36 Monocytes % (Manual) 5.0 % (0.0-7.3) 09/23/20 04:36 Nucleated RBC % Not Reportable 09/23/20 04:36 Seg Neutrophils # 13.1 K/mm3 (1.8-7.7) H 09/27/20 04:00 Seg Neutrophils # Man 12.9 K/mm3 (1.8-7.7) H 09/23/20 04:36 Band Neutrophils # 0.3 K/mm3 09/23/20 04:36 Abs Lymphs (Manual) 223 cells/uL (850-3900) L 09/19/20 13:35 Lymphocytes # (Manual) 0.3 K/mm3 (1.2-5.4) L 09/23/20 04:36 Abs React Lymphs (Man) 0.0 K/mm3 09/23/20 04:36 Monocytes # (Manual) 0.7 K/mm3 (0.0-0.8) 09/23/20 04:36 Eosinophils # (Manual) 0.0 K/mm3 (0.0-0.4) 09/23/20 04:36 Basophils # (Manual) 0.0 K/mm3 (0.0-0.1) 09/23/20 04:36 Metamyelocytes # 0.0 K/mm3 09/23/20 04:36 Myelocytes # 0.0 K/mm3 09/23/20 04:36 Promyelocytes # 0.0 K/mm3 09/23/20 04:36 Blast Cells # 0.0 K/mm3 09/23/20 04:36 WBC Morphology Not Reportable 09/23/20 04:36 Hypersegmented Neuts Not Reportable 09/23/20 04:36 Hyposegmented Neuts Not Reportable 09/23/20 04:36 Hypogranular Neuts Not Reportable 09/23/20 04:36 Smudge Cells Not Reportable 09/23/20 04:36 Toxic Granulation Not Reportable 09/23/20 04:36 Toxic Vacuolation Not Reportable 09/23/20 04:36 Dohle Bodies Not Reportable 09/23/20 04:36 Pelger-Huet Anomaly Not Reportable 09/23/20 04:36 Vinh Rods Not Reportable 09/23/20 04:36 Platelet Estimate Consistent w auto 09/23/20 04:36 Clumped Platelets Not Reportable 09/23/20 04:36 Plt Clumps, EDTA Not Reportable 09/23/20 04:36 Large Platelets Not Reportable 09/23/20 04:36 Giant Platelets Not Reportable 09/23/20 04:36 Platelet Satelliting Not Reportable 09/23/20 04:36 Plt Morphology Comment Not Reportable 09/23/20 04:36 RBC Morphology Not Reportable 09/23/20 04:36 Dimorphic RBCs Not Reportable 09/23/20 04:36 Polychromasia Not Reportable 09/23/20 04:36 Hypochromasia Not Reportable 09/23/20 04:36 Poikilocytosis Not Reportable 09/23/20 04:36 Anisocytosis 1+ 09/23/20 04:36 Microcytosis Not Reportable 09/23/20 04:36 Macrocytosis Not Reportable 09/23/20 04:36 Spherocytes Not Reportable 09/23/20 04:36 Pappenheimer Bodies Not Reportable 09/23/20 04:36 Sickle Cells Not Reportable 09/23/20 04:36 Target Cells Few 09/23/20 04:36 Tear Drop Cells Not Reportable 09/23/20 04:36 Ovalocytes Not Reportable 09/23/20 04:36 Helmet Cells Not Reportable 09/23/20 04:36 Lazo-Dales Bodies Not Reportable 09/23/20 04:36 Bimble Rings Not Reportable 09/23/20 04:36 Vita Cells Not Reportable 09/23/20 04:36 Bite Cells Not Reportable 09/23/20 04:36 Crenated Cell Not Reportable 09/23/20 04:36 Elliptocytes Not Reportable 09/23/20 04:36 Acanthocytes (Spur) Not Reportable 09/23/20 04:36 Rouleaux Not Reportable 09/23/20 04:36 Hemoglobin C Crystals Not Reportable 09/23/20 04:36 Schistocytes Not Reportable 09/23/20 04:36 Malaria parasites Not Reportable 09/23/20 04:36 Zachary Bodies Not Reportable 09/23/20 04:36 Hem Pathologist Commnt No 09/23/20 04:36 PT 15.7 Sec. (12.2-14.9) H 09/24/20 12:13 INR 1.27 (0.87-1.13) H 09/24/20 12:13 APTT 25.7 Sec. (24.2-36.6) 09/24/20 12:13 D-Dimer 1772.86 ng/mlDDU (0-234) H 09/24/20 05:00 Heparin Anti-Xa Level 0.10 U.I./ml (0.3-0.7) L 09/20/20 04:00 Heparin Anti-Xa, Unfract Negative (Negative) 09/22/20 15:12 ABG pH 7.508 (7.320-7.450) H 09/17/20 10:28 POC ABG pCO2 22.8 mmHg (32.0-48.0) L 09/17/20 10:28 POC ABG pO2 66.8 mmHg (83-108) L 09/17/20 10:28 POC ABG HCO3 17.7 09/17/20 10:28 ABG O2 Saturation 93.4 (0-100) 09/17/20 10:28 POC ABG Base Excess -3.5 09/17/20 10:28 ABG Hemoglobin 12.7 (12.0-17.5) 09/17/20 10:28 ABG Oxyhemoglobin 92.7 (94-98) L 09/17/20 10:28 ABG Methemoglobin 0.3 (0.0-1.5) 09/17/20 10:28 ABG Sodium 127.4 mmol/L (136.0-145.0) L 09/17/20 10:28 ABG Potassium 4.7 mmol/L (3.40-4.50) H 09/17/20 10:28 ABG Chloride 101.0 mmol/L (98-107) 09/17/20 10:28 ABG Glucose 121 mg/dL (65-95) H 09/17/20 10:28 Carboxyhemoglobin 0.4 (0.5-1.5) L 09/17/20 10:28 FiO2 % 09/17/20 10:28 Sodium 140 mmol/L (137-145) 10/02/20 05:10 Potassium 4.0 mmol/L (3.6-5.0) 10/02/20 05:10 Chloride 105.9 mmol/L (98-107) 10/02/20 05:10 Carbon Dioxide 29 mmol/L (22-30) 10/02/20 05:10 Anion Gap 9 mmol/L 10/02/20 05:10 BUN 48 mg/dL (9-20) H 10/02/20 05:10 Creatinine 2.0 mg/dL (0.8-1.3) H 10/02/20 05:10 Estimated GFR 40 ml/min 10/02/20 05:10 BUN/Creatinine Ratio 24 % 10/02/20 05:10 Glucose 78 mg/dL (75-100) 10/02/20 05:10 POC Glucose 72 mg/dL (70-105) 09/30/20 11:45 Lactic Acid 1.00 mmol/L (0.7-2.0) 09/20/20 17:10 Calcium 8.7 mg/dL (8.4-10.2) 10/02/20 05:10 Phosphorus 2.90 mg/dL (2.5-4.5) 09/26/20 07:06 Magnesium 1.70 mg/dL (1.7-2.3) 09/26/20 07:06 Ferritin 1190.0 ng/mL (30.0-300.0) H 09/24/20 05:00 Total Bilirubin 0.80 mg/dL (0.1-1.2) 09/30/20 04:47 AST 14 units/L (5-40) 09/30/20 04:47 ALT 21 units/L (7-56) 09/30/20 04:47 Alkaline Phosphatase 81 units/L (35-129) 09/30/20 04:47 Lactate Dehydrogenase 276 units/L (91-180) H 09/24/20 05:00 Total Creatine Kinase 20 units/L (55-170) L 09/19/20 03:30 Troponin T < 0.010 ng/mL (0.00-0.029) 09/22/20 05:38 C-Reactive Protein 4.20 mg/dL (0.00-1.30) H 09/24/20 05:00 NT-Pro-B Natriuret Pep 49348 pg/mL (0-900) H 09/17/20 10:47 Total Protein 5.9 g/dL (6.3-8.2) L 09/30/20 04:47 Albumin 2.2 g/dL (3.9-5) L 09/30/20 04:47 Albumin/Globulin Ratio 0.6 % 09/30/20 04:47 Triglycerides 137 mg/dL (2-149) 09/17/20 13:54 Cholesterol 48 mg/dL (50-199) L 09/17/20 13:54 LDL Cholesterol Direct 4 mg/dL (50-130) L 09/17/20 13:54 HDL Cholesterol 9 mg/dL (40-59) L 09/17/20 13:54 Cholesterol/HDL Ratio 5.33 % 09/17/20 13:54 Free PSA See scanned result 09/17/20 17:35 % Free PSA Calc See scanned result 09/17/20 17:35 Total PSA See scanned result 09/17/20 17:35 Procalcitonin 2.10 ng/mL (<0.15) 09/25/20 06:40 PTH Intact 161.4 pg/mL (15-65) H 09/19/20 03:30 Arterial Blood Glucose 121 mg/dL (65-95) H 09/17/20 10:28 Arterial Blood Ionized Calcium 5.0 mg/dL (4.6-5.3) 09/17/20 10:28 Urine Color Yellow (Yellow) 09/18/20 12:00 Urine Turbidity Cloudy (Clear) 09/18/20 12:00 Urine pH 5.0 (5.0-7.0) 09/18/20 12:00 Ur Specific [place] 1.009 (1.003-1.030) 09/18/20 12:00 Urine Protein 30 mg/dl mg/dL (Negative) 09/18/20 12:00 Urine Glucose (UA) Neg mg/dL (Negative) 09/18/20 12:00 Urine Ketones Neg mg/dL (Negative) 09/18/20 12:00 Urine Blood Sm (Negative) 09/18/20 12:00 Urine Nitrite Neg (Negative) 09/18/20 12:00 Urine Bilirubin Neg (Negative) 09/18/20 12:00 Urine Urobilinogen < 2.0 mg/dL (<2.0) 09/18/20 12:00 Ur Leukocyte Esterase Mod (Negative) 09/18/20 12:00 Urine WBC (Auto) 71.0 /HPF (0.0-6.0) H 09/18/20 12:00 Urine RBC (Auto) 2.0 /HPF (0.0-6.0) 09/18/20 12:00 U Epithel Cells (Auto) 1.0 /HPF (0-13.0) 09/18/20 12:00 Urine Bacteria (Auto) 4+ /HPF (Negative) 09/18/20 12:00 Urine WBC Clumps 2+ /HPF 09/18/20 12:00 Hyaline Casts 3 /LPF 09/18/20 12:00 Granular Casts 3 /LPF 09/18/20 12:00 Urine Mucus Few /HPF 09/18/20 12:00 Urine Eosinophils None seen (None Seen) 09/19/20 03:15 Urine Creatinine 61.0 mg/dL (0.1-20.0) H 09/18/20 12:00 Urine Sodium 62 mmol/L 09/18/20 12:00 Random Vancomycin 12.7 ug/mL (0-40.0) 09/19/20 03:30 Heparin-induced Plt Ab Weak positive (Negative) H 09/22/20 15:12 UF Heparin High Dose 0 % Release 09/22/20 15:12 CORAZON UFH Low Dose 0.1 0 % Release 09/22/20 15:12 CORAZON UFH Low Dose 0.5 0 % Release 09/22/20 15:12 Lymph Enumerat CD4/CD8 0.70 (0.86-5.00) L 09/19/20 13:35 % CD3 Cells 79 % (57-85) 09/19/20 13:35 Absolute CD3 Count 175 cells/uL (840-3060) L 09/19/20 13:35 % CD4 Cells 31 % (30-61) 09/19/20 13:35 Absolute CD4 Count 70 cells/uL (490-1740) L 09/19/20 13:35 % CD8 Cells 45 % (12-42) H 09/19/20 13:35 Absolute CD8 Count 101 cells/uL (180-1170) L 09/19/20 13:35 % CD19 Cells 12 % (6-29) 09/19/20 13:35 Absolute CD19 Count 26 cells/uL (110-660) L 09/19/20 13:35 Coronavirus (PCR) Positive (Negative) A 09/18/20 09:39 Hepatitis A IgM Ab Non-reactive (NonReactive) 09/20/20 17:10 Hep Bs Antigen Non-reactive (Negative) 09/20/20 17:10 Hep B Core IgM Ab Non-reactive (NonReactive) 09/20/20 17:10 Hepatitis C Antibody Non-reactive (NonReactive) 09/20/20 17:10 HIV-1 RNA PCR copies/ml 67 Copies/mL H 09/19/20 13:35 HIV-1 RNA (PCR) log 1.83 Log cps/mL H 09/19/20 13:35 Microbiology: Microbiology 09/18/20 02:01 Peripheral/Venous Blood Culture - Final Escherichia Coli 09/18/20 03:19 Peripheral/Venous Blood Culture - Final Escherichia Coli 09/18/20 12:00 Urine,Clean Catch Urine Culture - Final Escherichia Coli Gardner/IV: Voiding Method Incontinent Active Medications - Current Medications Current Medications: Generic Name Dose Route Start Last Admin Trade Name Freq PRN Reason Stop Dose Admin Acetaminophen 650 mg 09/17/20 13:52 09/30/20 21:12 Acetaminophen 325 Mg Tab PO 650 mg Q4H PRN Administration Pain MILD(1-3)/Fever >100.5/ANGEL Albuterol 2.5 mg 09/17/20 13:52 09/17/20 20:47 Albuterol 2.5 Mg/3 Ml Nebu IH 2.5 mg Q4HRT PRN Administration Shortness Of Breath Amiodarone HCl 200 mg 10/01/20 22:00 10/01/20 22:02 Amiodarone 200 Mg Tab PO 200 mg BID EDIE Administration Lipase/Protease/Amylase 1 each 09/20/20 13:10 Lipase 10,500/Protease 25,000/Amylase 43,750 (Units) Dr Patrick FEEDTUBE PRN PRN For Clogged Feeding Tube Apixaban 2.5 mg 09/24/20 12:00 10/01/20 22:01 Apixaban 2.5 Mg Tab PO 2.5 mg Q12HR EDIE Administration Protocol Ascorbic Acid 500 mg 09/20/20 22:00 10/01/20 22:01 Ascorbic Acid 500 Mg Tab PO 500 mg BID EDIE Administration Cholecalciferol 1,000 unit 09/21/20 10:00 10/01/20 09:26 Cholecalciferol (Vit D3) 1000 Unit (25 Mcg) Tab PO 1,000 unit QDAY EDIE Administration Emtricitabine 200 mg 09/30/20 11:00 09/30/20 15:28 Emtricitabine 200 Mg Cap PO 200 mg Q48H EDIE Administration Famotidine 20 mg 09/24/20 10:00 10/01/20 09:26 Famotidine 20 Mg Tab PO 20 mg DAILY EDIE Administration Haloperidol Lactate 5 mg 10/01/20 11:34 Haloperidol Lactate 5 Mg/1 Ml Inj IM Q6H PRN Agitation Heparin Sodium (Porcine) 3,000 unit 09/20/20 10:06 Heparin 10,000 Units/10 Ml Vial IV VIRGIL PRN hemodialysis Sodium Chloride 100 mls @ 999 mls/hr 09/20/20 10:06 Nacl 0.9% IV VIRGIL PRN Hypotension Valproate Sodium 500 mg/ 105 mls @ 100 mls/hr 10/01/20 12:30 10/01/20 22:01 Sodium Chloride IV 100 mls/hr Q12HR EDIE Administration Metoprolol Tartrate 5 mg 09/19/20 19:06 09/24/20 10:59 Metoprolol Tartrate 5 Mg/5 Ml Inj IV 5 mg Q8HR PRN Administration HR > 135 Minute Metoprolol Tartrate 25 mg 10/01/20 22:00 10/01/20 22:00 Metoprolol Tartrate 25 Mg Tab PO 25 mg BID EDIE Administration Midodrine 5 mg 09/22/20 12:00 10/01/20 16:27 Midodrine 5 Mg Tab PO 5 mg TID@0800,1200,1600 [facility] Administration Ondansetron HCl 4 mg 09/17/20 13:52 Ondansetron 4 Mg/2 Ml Inj IV Q8H PRN Nausea And Vomiting Simple Syrup 15 ml 09/20/20 13:10 Simple Syrup 15 Ml FEEDTUBE PRN PRN Hypoglycemia Simple Syrup 30 ml 09/20/20 13:10 Simple Syrup 15 Ml FEEDTUBE PRN PRN Hypoglycemia Sodium Bicarbonate 325 mg 09/20/20 13:10 Sodium Bicarbonate 325 Mg Tab FEEDTUBE PRN PRN For Clogged Feeding Tube Sodium Chloride 10 ml 09/17/20 22:00 10/01/20 22:02 Sodium Chloride 0.9% 10 Ml Flush Syringe IV 10 ml BID EDIE Administration Sodium Chloride 10 ml 09/17/20 13:52 09/24/20 09:15 Sodium Chloride 0.9% 10 Ml Flush Syringe IV 10 ml PRN PRN Administration LINE FLUSH Tenofovir Disoproxil Fumarate 300 mg 09/30/20 11:00 09/30/20 15:35 Tenofovir 300 Mg Tab PO 300 mg Q48H EDIE Administration Zinc Sulfate 220 mg 09/21/20 10:00 10/01/20 09:35 Zinc Sulfate 220 Mg Cap PO 220 mg QDAY EDIE Administration Nutrition/Malnutrition Assess - Dietary Evaluation Nutrition/Malnutrition Findings: Nutrition Notes Start: 09/18/20 11:30 Freq: Status: Active Protocol: Document 09/27/20 13:30 MELISSA (Rec: 09/27/20 13:40 VALEEANNA [id number]) Nutrition Notes Initial or Follow up Reassessment Current Diagnosis Acute Kidney Injury,Sepsis, Hypertension,Heart Failure, Respiratory Failure Other Pertinent Diagnosis COVID-19 (+), AMS, UTI, afib with RVR, HIV (+) Current Diet TF - Nepro at 45ml/hr Labs/Tests BUN 67 Cr 2.3 Pertinent Medications Reviewed Height 6 ft 1 in Weight 73 kg Brooks Body Weight (kg) 83.63 BMI 21.2 Weight Status Underweight Subjective/Other Information Pt pulled out NGT yesterday, however, it was re-inserted and confirmed by KUB. Spoke with RN via phone at 13:28. Pt tolerating TF at goal rate. Percent of energy/protein needs met: 100% energy 99% pro Burn Absent Trauma Absent #2 Nutrition Diagnosis Inadequate oral intake Diagnosis Progress(for reassessment Continues documentation) Is patient on ventilator? No Is Patient Ambulatory and/or Out of Bed No REE-([facility]-confined to bed) 1858.500 Kcal/Kg value to use for calculation 30 Approximate Energy Requirements Using 2190 kcal/Kg Calculation Used for Recommendations Kcal/kg Additional Notes Pro needs >1.2g/kg: >88g/day Fluid needs 1-1.5L/day Nutrition Intervention Nutrition Support: Continue Nepro at 45 ml/hr with a free water flush of 200 ml q4h Kcal 1,944 Protein (gm) 87 Fluid (mL) 785 Goal #1 TF tolerance Goal #2 TF to meet 75-100% energy and pro needs Goal #3 Wt maintenance and/or gain Follow-Up By: 10/04/20 Additional Comments F/U: stable TF, wt
[2020-10-02] MEDS: CHOLECALCIFEROL (VIT D3) 1000 UNIT (25 mcg) TAB PO SCH (09:24)
[2020-10-02] MEDS: DOLUTEGRAVIR 50 MG TAB PO SCH (09:24)
[2020-10-02] MEDS: ZINC SULFATE 220 MG CAP PO SCH (09:24)
[2020-10-02] MEDS: METOPROLOL TARTRATE 25 MG TAB PO SCH ×2 (09:25→22:52)
[2020-10-02] MEDS: APIXABAN 2.5 MG TAB PO SCH ×2 (09:25→22:57)
[2020-10-02] MEDS: ASCORBIC ACID 500 MG TAB PO SCH ×2 (09:25→22:52)
[2020-10-02] MEDS: FAMOTIDINE 20 MG TAB PO SCH (09:25)
[2020-10-02] MEDS: MIDODRINE 5 MG TAB PO SCH ×3 (09:26→17:05)
[2020-10-02] MEDS: AMIODARONE 200 MG TAB PO SCH ×2 (09:26→22:52)
[2020-10-02] MEDS: VALPROATE SODIUM 500 MG in SODIUM CHLORIDE 0.9% 100 ML IV SCH ×2 (09:26→22:56)
[2020-10-02] MEDS: TENOFOVIR 300 MG TAB PO SCH (11:45)
[2020-10-02] MEDS: EMTRICITABINE 200 MG CAP PO SCH (11:45)
--- NOTE | 2020-10-02 11:55 | Progress Note ---
Assessment and Plan Assessment and Plan Assessment and plan: This is 70-year-old male with HIV, HTN, and atrial fibrillation (currently on therapeutic anticoagulation with Xarelto) presents the emergency department on with complaints of shortness of breath over the past 3 days and on arrival of EMS patient was found to have a pulse oximetry of 85% on room air. He was placed on supplemental oxygenation. Of note patient was admitted on 09/15 with similar complaints and found to have A. fib with RVR, hyponatremia, hypomagnesemia and acute kidney injury and left AMA. He was admitted to the hospital service with atrial fibrillation with RVR, SIRs, metabolic acidosis, acute kidney injury, acute hypoxic respiratory failure, hypotension, and CHF . Cardiology, CCM and nephrology were consulted. Neurology is consulted today due to increase agitation /aggressive behaviour and confusion according to record attempt to give seroquel was not tolerated by the pt. # Finding from hx and exam is suggestive of underling Delirium -he is alert interactive at time does knows place today not date but knows name and birthdate and address -crying wants to go home with the possibilty of under lying reactive depression can not be excluded -recommend psychiatry to see -Haldol 1 mg Iv q 4 hours prn for agitation -hold Seroquel for now - will start on Seroqel 12.5 mg am and 25 mg qhs #Septic Shock resolved #Acute hypoxemic respiratory failure 2/2 to volume overload/chf exacerbation #Acute systolic heart failure exacerbation #Atrial fibrillation with RVR #Acute on chronic kidney injury #Hypotension #Anemia #Thrombocytopenia #E coli bacteremia #E. coli urinary tract infection #NSTEMI #Elevated Ddimer #Leukocytosis #HIV, asymptomatic #HTN #Coagulopathy #Transaminitis DVT/GI prophylaxis: PPI, SCDs to bilateral lower extremities while in bed, no chemical anticoagulation at this time d/t thrombocytopenia will follow as needed Subjective Date of service: 10/02/20 Principal diagnosis: Acute Resp Fail, Sepsis, AF with RVR Interval history: pt. is slightly calmer today alert oriented to place follow command crying wants to go home Objective - Vital Sign Vital Signs - 12hr 10/02/20 10/02/20 10/02/20 04:09 08:53 09:21 Temperature 97.9 F 97.5 F L Respiratory 16 20 Rate Blood Pressure 117/82 87/60 O2 Sat by Pulse 97 Oximetry 10/02/20 09:25 Temperature Respiratory Rate Blood Pressure 87/60 O2 Sat by Pulse Oximetry - General Apperance Constitutional: comfortable - EENT EENT: PERRL, mucous membranes moist - Respiratory Respiratory: chest non-tender, lungs clear, crackles - Cardiovascular Cardiovascular: other (AF) Extremities: no peripheral edema bilat, no clubbing, cyanosis - Gastrointestinal Gastrointestinal: normoactive bowel sounds - Integumentary Integumentary: normal - Neurologic Cranial nerve examination: PERRL, EOMI, intact Speech examination: intact Detailed motor examination: grossly full strength in - Psychiatric Psychiatric: other (at time he get restless try to get off bed follow commands cry when asked question, poor judjment ) - Laboratory Findings CBC and BMP: 09/30/20 04:47 10/02/20 05:10 Abnormal Lab Findings: Abnormal Labs 09/17/20 09/17/20 09/17/20 10:28 10:47 10:47 WBC 11.1 H RBC 3.44 L Hgb 11.2 L Hct 32.8 L MCV 95 H MCH MCHC Plt Count Lymph % (Auto) [place] % (Auto) Lymph # (Auto) [place] # (Auto) Seg Neutrophils % Seg Neuts % (Manual) Lymphocytes % (Manual) 4.0 L Monocytes % (Manual) Nucleated RBC % Seg Neutrophils # Seg Neutrophils # Man 10.7 H Abs Lymphs (Manual) Lymphocytes # (Manual) 0.4 L PT 32.9 H INR 3.16 H APTT 51.1 H D-Dimer Heparin Anti-Xa Level ABG pH 7.508 H POC ABG pCO2 22.8 L POC ABG pO2 66.8 L ABG Oxyhemoglobin 92.7 L ABG Sodium 127.4 L ABG Potassium 4.7 H ABG Glucose 121 H Carboxyhemoglobin 0.4 L Sodium Chloride Carbon Dioxide BUN Creatinine Glucose POC Glucose Calcium Phosphorus Ferritin Total Bilirubin AST ALT Alkaline Phosphatase Lactate Dehydrogenase Total Creatine Kinase Troponin T C-Reactive Protein NT-Pro-B Natriuret Pep Total Protein Albumin Cholesterol LDL Cholesterol Direct HDL Cholesterol PTH Intact Arterial Blood Glucose 121 H Urine WBC (Auto) Urine Creatinine Heparin-induced Plt Ab Lymph Enumerat CD4/CD8 Absolute CD3 Count Absolute CD4 Count % CD8 Cells Absolute CD8 Count Absolute CD19 Count Coronavirus (PCR) HIV-1 RNA PCR copies/ml HIV-1 RNA (PCR) log 09/17/20 09/17/20 09/17/20 10:47 10:47 13:54 WBC RBC Hgb Hct MCV MCH MCHC Plt Count Lymph % (Auto) [place] % (Auto) Lymph # (Auto) [place] # (Auto) Seg Neutrophils % Seg Neuts % (Manual) Lymphocytes % (Manual) Monocytes % (Manual) Nucleated RBC % Seg Neutrophils # Seg Neutrophils # Man Abs Lymphs (Manual) Lymphocytes # (Manual) PT INR APTT D-Dimer Heparin Anti-Xa Level ABG pH POC ABG pCO2 POC ABG pO2 ABG Oxyhemoglobin ABG Sodium ABG Potassium ABG Glucose Carboxyhemoglobin Sodium 125 L Chloride 95.3 L Carbon Dioxide 17 L BUN 64 H Creatinine 4.6 H D Glucose 104 H POC Glucose Calcium Phosphorus Ferritin Total Bilirubin AST 69 H ALT Alkaline Phosphatase Lactate Dehydrogenase Total Creatine Kinase Troponin T 0.061 H D 0.058 H C-Reactive Protein NT-Pro-B Natriuret Pep 00362 H Total Protein Albumin 1.9 L Cholesterol 48 L LDL Cholesterol Direct 4 L HDL Cholesterol 9 L PTH Intact Arterial Blood Glucose Urine WBC (Auto) Urine Creatinine Heparin-induced Plt Ab Lymph Enumerat CD4/CD8 Absolute CD3 Count Absolute CD4 Count % CD8 Cells Absolute CD8 Count Absolute CD19 Count Coronavirus (PCR) HIV-1 RNA PCR copies/ml HIV-1 RNA (PCR) log 09/17/20 09/17/20 09/17/20 16:36 17:35 17:35 WBC RBC 3.25 L Hgb 10.7 L Hct 31.1 L MCV 96 H MCH 33 H MCHC Plt Count Lymph % (Auto) [place] % (Auto) Lymph # (Auto) [place] # (Auto) Seg Neutrophils % Seg Neuts % (Manual) Lymphocytes % (Manual) Monocytes % (Manual) Nucleated RBC % Seg Neutrophils # Seg Neutrophils # Man Abs Lymphs (Manual) Lymphocytes # (Manual) PT 31.9 H INR 3.04 H APTT 50.9 H D-Dimer Heparin Anti-Xa Level ABG pH POC ABG pCO2 POC ABG pO2 ABG Oxyhemoglobin ABG Sodium ABG Potassium ABG Glucose Carboxyhemoglobin Sodium Chloride Carbon Dioxide BUN Creatinine Glucose POC Glucose Calcium Phosphorus Ferritin Total Bilirubin AST ALT Alkaline Phosphatase Lactate Dehydrogenase Total Creatine Kinase Troponin T 0.057 H C-Reactive Protein NT-Pro-B Natriuret Pep Total Protein Albumin Cholesterol LDL Cholesterol Direct HDL Cholesterol PTH Intact Arterial Blood Glucose Urine WBC (Auto) Urine Creatinine Heparin-induced Plt Ab Lymph Enumerat CD4/CD8 Absolute CD3 Count Absolute CD4 Count % CD8 Cells Absolute CD8 Count Absolute CD19 Count Coronavirus (PCR) HIV-1 RNA PCR copies/ml HIV-1 RNA (PCR) log 09/17/20 09/18/20 09/18/20 17:35 03:19 03:19 WBC RBC 3.32 L Hgb 10.9 L Hct 32.0 L MCV 96 H MCH 33 H MCHC Plt Count 138 L Lymph % (Auto) [place] % (Auto) Lymph # (Auto) [place] # (Auto) Seg Neutrophils % Seg Neuts % (Manual) 95.0 H Lymphocytes % (Manual) 3.0 L Monocytes % (Manual) Nucleated RBC % Seg Neutrophils # Seg Neutrophils # Man 8.1 H Abs Lymphs (Manual) Lymphocytes # (Manual) 0.3 L PT INR APTT D-Dimer Heparin Anti-Xa Level ABG pH POC ABG pCO2 POC ABG pO2 ABG Oxyhemoglobin ABG Sodium ABG Potassium ABG Glucose Carboxyhemoglobin Sodium Chloride Carbon Dioxide 16 L BUN 70 H Creatinine 4.6 H 4.7 H Glucose 104 H POC Glucose Calcium 8.2 L Phosphorus Ferritin Total Bilirubin 1.60 H AST 128 H ALT 67 H Alkaline Phosphatase Lactate Dehydrogenase Total Creatine Kinase Troponin T C-Reactive Protein NT-Pro-B Natriuret Pep Total Protein 5.2 L D Albumin 2.5 L Cholesterol LDL Cholesterol Direct HDL Cholesterol PTH Intact Arterial Blood Glucose Urine WBC (Auto) Urine Creatinine Heparin-induced Plt Ab Lymph Enumerat CD4/CD8 Absolute CD3 Count Absolute CD4 Count % CD8 Cells Absolute CD8 Count Absolute CD19 Count Coronavirus (PCR) HIV-1 RNA PCR copies/ml HIV-1 RNA (PCR) log 09/18/20 09/18/20 09/18/20 09:39 12:00 12:00 WBC RBC Hgb Hct MCV MCH MCHC Plt Count Lymph % (Auto) [place] % (Auto) Lymph # (Auto) [place] # (Auto) Seg Neutrophils % Seg Neuts % (Manual) Lymphocytes % (Manual) Monocytes % (Manual) Nucleated RBC % Seg Neutrophils # Seg Neutrophils # Man Abs Lymphs (Manual) Lymphocytes # (Manual) PT INR APTT D-Dimer Heparin Anti-Xa Level ABG pH POC ABG pCO2 POC ABG pO2 ABG Oxyhemoglobin ABG Sodium ABG Potassium ABG Glucose Carboxyhemoglobin Sodium Chloride Carbon Dioxide BUN Creatinine Glucose POC Glucose Calcium Phosphorus Ferritin Total Bilirubin AST ALT Alkaline Phosphatase Lactate Dehydrogenase Total Creatine Kinase Troponin T C-Reactive Protein NT-Pro-B Natriuret Pep Total Protein Albumin Cholesterol LDL Cholesterol Direct HDL Cholesterol PTH Intact Arterial Blood Glucose Urine WBC (Auto) 71.0 H Urine Creatinine 61.0 H Heparin-induced Plt Ab Lymph Enumerat CD4/CD8 Absolute CD3 Count Absolute CD4 Count % CD8 Cells Absolute CD8 Count Absolute CD19 Count Coronavirus (PCR) Positive A HIV-1 RNA PCR copies/ml HIV-1 RNA (PCR) log 09/18/20 09/18/20 09/18/20 15:07 15:07 18:33 WBC RBC Hgb 10.7 L Hct 31.3 L MCV MCH MCHC Plt Count Lymph % (Auto) [place] % (Auto) Lymph # (Auto) [place] # (Auto) Seg Neutrophils % Seg Neuts % (Manual) Lymphocytes % (Manual) Monocytes % (Manual) Nucleated RBC % Seg Neutrophils # Seg Neutrophils # Man Abs Lymphs (Manual) Lymphocytes # (Manual) PT 20.3 H INR 1.73 H APTT 40.8 H D-Dimer Heparin Anti-Xa Level 1.09 H ABG pH POC ABG pCO2 POC ABG pO2 ABG Oxyhemoglobin ABG Sodium ABG Potassium ABG Glucose Carboxyhemoglobin Sodium Chloride Carbon Dioxide BUN Creatinine Glucose POC Glucose Calcium Phosphorus Ferritin Total Bilirubin AST ALT Alkaline Phosphatase Lactate Dehydrogenase Total Creatine Kinase Troponin T C-Reactive Protein NT-Pro-B Natriuret Pep Total Protein Albumin Cholesterol LDL Cholesterol Direct HDL Cholesterol PTH Intact Arterial Blood Glucose Urine WBC (Auto) Urine Creatinine Heparin-induced Plt Ab Lymph Enumerat CD4/CD8 Absolute CD3 Count Absolute CD4 Count % CD8 Cells Absolute CD8 Count Absolute CD19 Count Coronavirus (PCR) HIV-1 RNA PCR copies/ml HIV-1 RNA (PCR) log 09/19/20 09/19/20 09/19/20 03:30 03:30 03:30 WBC RBC 3.29 L Hgb 10.9 L Hct 30.9 L MCV MCH 33 H MCHC 35 H Plt Count Lymph % (Auto) [place] % (Auto) Lymph # (Auto) [place] # (Auto) Seg Neutrophils % Seg Neuts % (Manual) Lymphocytes % (Manual) Monocytes % (Manual) Nucleated RBC % Seg Neutrophils # Seg Neutrophils # Man Abs Lymphs (Manual) Lymphocytes # (Manual) PT INR APTT D-Dimer Heparin Anti-Xa Level ABG pH POC ABG pCO2 POC ABG pO2 ABG Oxyhemoglobin ABG Sodium ABG Potassium ABG Glucose Carboxyhemoglobin Sodium 133 L Chloride Carbon Dioxide 17 L BUN 94 H Creatinine 5.0 H Glucose 120 H POC Glucose Calcium Phosphorus 6.30 H Ferritin Total Bilirubin 2.40 H AST 163 H ALT 109 H Alkaline Phosphatase 160 H Lactate Dehydrogenase Total Creatine Kinase 20 L Troponin T C-Reactive Protein NT-Pro-B Natriuret Pep Total Protein 6.2 L Albumin 2.0 L Cholesterol LDL Cholesterol Direct HDL Cholesterol PTH Intact 161.4 H Arterial Blood Glucose Urine WBC (Auto) Urine Creatinine Heparin-induced Plt Ab Lymph Enumerat CD4/CD8 Absolute CD3 Count Absolute CD4 Count % CD8 Cells Absolute CD8 Count Absolute CD19 Count Coronavirus (PCR) HIV-1 RNA PCR copies/ml HIV-1 RNA (PCR) log 09/19/20 09/19/20 09/19/20 06:35 13:35 13:35 WBC RBC Hgb Hct MCV MCH MCHC Plt Count Lymph % (Auto) [place] % (Auto) Lymph # (Auto) [place] # (Auto) Seg Neutrophils % Seg Neuts % (Manual) Lymphocytes % (Manual) Monocytes % (Manual) Nucleated RBC % Seg Neutrophils # Seg Neutrophils # Man Abs Lymphs (Manual) 223 L Lymphocytes # (Manual) PT INR APTT D-Dimer Heparin Anti-Xa Level ABG pH POC ABG pCO2 POC ABG pO2 ABG Oxyhemoglobin ABG Sodium ABG Potassium ABG Glucose Carboxyhemoglobin Sodium Chloride Carbon Dioxide BUN Creatinine Glucose POC Glucose 123 H Calcium Phosphorus Ferritin Total Bilirubin AST ALT Alkaline Phosphatase Lactate Dehydrogenase Total Creatine Kinase Troponin T C-Reactive Protein NT-Pro-B Natriuret Pep Total Protein Albumin Cholesterol LDL Cholesterol Direct HDL Cholesterol PTH Intact Arterial Blood Glucose Urine WBC (Auto) Urine Creatinine Heparin-induced Plt Ab Lymph Enumerat CD4/CD8 0.70 L Absolute CD3 Count 175 L Absolute CD4 Count 70 L % CD8 Cells 45 H Absolute CD8 Count 101 L Absolute CD19 Count 26 L Coronavirus (PCR) HIV-1 RNA PCR copies/ml 67 H HIV-1 RNA (PCR) log 1.83 H 09/19/20 09/20/20 09/20/20 23:37 04:00 04:00 WBC RBC 3.43 L Hgb 11.1 L Hct 32.2 L MCV MCH MCHC Plt Count 131 L Lymph % (Auto) [place] % (Auto) Lymph # (Auto) [place] # (Auto) Seg Neutrophils % Seg Neuts % (Manual) 88.0 H Lymphocytes % (Manual) 3.0 L Monocytes % (Manual) 9.0 H Nucleated RBC % Seg Neutrophils # Seg Neutrophils # Man 8.2 H Abs Lymphs (Manual) Lymphocytes # (Manual) 0.3 L PT INR APTT D-Dimer Heparin Anti-Xa Level 0.10 L ABG pH POC ABG pCO2 POC ABG pO2 ABG Oxyhemoglobin ABG Sodium ABG Potassium ABG Glucose Carboxyhemoglobin Sodium Chloride Carbon Dioxide BUN Creatinine Glucose POC Glucose 135 H Calcium Phosphorus Ferritin Total Bilirubin AST ALT Alkaline Phosphatase Lactate Dehydrogenase Total Creatine Kinase Troponin T C-Reactive Protein NT-Pro-B Natriuret Pep Total Protein Albumin Cholesterol LDL Cholesterol Direct HDL Cholesterol PTH Intact Arterial Blood Glucose Urine WBC (Auto) Urine Creatinine Heparin-induced Plt Ab Lymph Enumerat CD4/CD8 Absolute CD3 Count Absolute CD4 Count % CD8 Cells Absolute CD8 Count Absolute CD19 Count Coronavirus (PCR) HIV-1 RNA PCR copies/ml HIV-1 RNA (PCR) log 09/20/20 09/20/20 09/20/20 04:00 05:37 11:20 WBC RBC Hgb Hct MCV MCH MCHC Plt Count Lymph % (Auto) [place] % (Auto) Lymph # (Auto) [place] # (Auto) Seg Neutrophils % Seg Neuts % (Manual) Lymphocytes % (Manual) Monocytes % (Manual) Nucleated RBC % Seg Neutrophils # Seg Neutrophils # Man Abs Lymphs (Manual) Lymphocytes # (Manual) PT INR APTT D-Dimer Heparin Anti-Xa Level ABG pH POC ABG pCO2 POC ABG pO2 ABG Oxyhemoglobin ABG Sodium ABG Potassium ABG Glucose Carboxyhemoglobin Sodium Chloride Carbon Dioxide 16 L BUN 119 H Creatinine 6.2 H Glucose 136 H POC Glucose 137 H 108 H Calcium Phosphorus Ferritin Total Bilirubin AST ALT Alkaline Phosphatase Lactate Dehydrogenase Total Creatine Kinase Troponin T C-Reactive Protein NT-Pro-B Natriuret Pep Total Protein Albumin Cholesterol LDL Cholesterol Direct HDL Cholesterol PTH Intact Arterial Blood Glucose Urine WBC (Auto) Urine Creatinine Heparin-induced Plt Ab Lymph Enumerat CD4/CD8 Absolute CD3 Count Absolute CD4 Count % CD8 Cells Absolute CD8 Count Absolute CD19 Count Coronavirus (PCR) HIV-1 RNA PCR copies/ml HIV-1 RNA (PCR) log 09/20/20 09/20/20 09/20/20 17:10 17:10 17:10 WBC RBC Hgb Hct MCV MCH MCHC Plt Count Lymph % (Auto) [place] % (Auto) Lymph # (Auto) [place] # (Auto) Seg Neutrophils % Seg Neuts % (Manual) Lymphocytes % (Manual) Monocytes % (Manual) Nucleated RBC % Seg Neutrophils # Seg Neutrophils # Man Abs Lymphs (Manual) Lymphocytes # (Manual) PT INR APTT D-Dimer 4271.58 H Heparin Anti-Xa Level ABG pH POC ABG pCO2 POC ABG pO2 ABG Oxyhemoglobin ABG Sodium ABG Potassium ABG Glucose Carboxyhemoglobin Sodium Chloride Carbon Dioxide BUN Creatinine 6.0 H Glucose POC Glucose Calcium Phosphorus Ferritin 696.6 H Total Bilirubin AST ALT Alkaline Phosphatase Lactate Dehydrogenase Total Creatine Kinase Troponin T C-Reactive Protein NT-Pro-B Natriuret Pep Total Protein Albumin Cholesterol LDL Cholesterol Direct HDL Cholesterol PTH Intact Arterial Blood Glucose Urine WBC (Auto) Urine Creatinine Heparin-induced Plt Ab Lymph Enumerat CD4/CD8 Absolute CD3 Count Absolute CD4 Count % CD8 Cells Absolute CD8 Count Absolute CD19 Count Coronavirus (PCR) HIV-1 RNA PCR copies/ml HIV-1 RNA (PCR) log 09/20/20 09/20/20 09/20/20 17:10 18:21 23:14 WBC RBC Hgb Hct MCV MCH MCHC Plt Count Lymph % (Auto) [place] % (Auto) Lymph # (Auto) [place] # (Auto) Seg Neutrophils % Seg Neuts % (Manual) Lymphocytes % (Manual) Monocytes % (Manual) Nucleated RBC % Seg Neutrophils # Seg Neutrophils # Man Abs Lymphs (Manual) Lymphocytes # (Manual) PT INR APTT D-Dimer Heparin Anti-Xa Level ABG pH POC ABG pCO2 POC ABG pO2 ABG Oxyhemoglobin ABG Sodium ABG Potassium ABG Glucose Carboxyhemoglobin Sodium Chloride Carbon Dioxide BUN Creatinine Glucose POC Glucose 129 H 170 H Calcium Phosphorus Ferritin Total Bilirubin AST ALT Alkaline Phosphatase Lactate Dehydrogenase 209 H Total Creatine Kinase Troponin T C-Reactive Protein 10.60 H NT-Pro-B Natriuret Pep Total Protein Albumin Cholesterol LDL Cholesterol Direct HDL Cholesterol PTH Intact Arterial Blood Glucose Urine WBC (Auto) Urine Creatinine Heparin-induced Plt Ab Lymph Enumerat CD4/CD8 Absolute CD3 Count Absolute CD4 Count % CD8 Cells Absolute CD8 Count Absolute CD19 Count Coronavirus (PCR) HIV-1 RNA PCR copies/ml HIV-1 RNA (PCR) log 09/21/20 09/21/20 09/21/20 05:35 17:09 23:18 WBC RBC Hgb Hct MCV MCH MCHC Plt Count Lymph % (Auto) [place] % (Auto) Lymph # (Auto) [place] # (Auto) Seg Neutrophils % Seg Neuts % (Manual) Lymphocytes % (Manual) Monocytes % (Manual) Nucleated RBC % Seg Neutrophils # Seg Neutrophils # Man Abs Lymphs (Manual) Lymphocytes # (Manual) PT INR APTT D-Dimer Heparin Anti-Xa Level ABG pH POC ABG pCO2 POC ABG pO2 ABG Oxyhemoglobin ABG Sodium ABG Potassium ABG Glucose Carboxyhemoglobin Sodium Chloride Carbon Dioxide BUN Creatinine Glucose POC Glucose 170 H 140 H 139 H Calcium Phosphorus Ferritin Total Bilirubin AST ALT Alkaline Phosphatase Lactate Dehydrogenase Total Creatine Kinase Troponin T C-Reactive Protein NT-Pro-B Natriuret Pep Total Protein Albumin Cholesterol LDL Cholesterol Direct HDL Cholesterol PTH Intact Arterial Blood Glucose Urine WBC (Auto) Urine Creatinine Heparin-induced Plt Ab Lymph Enumerat CD4/CD8 Absolute CD3 Count Absolute CD4 Count % CD8 Cells Absolute CD8 Count Absolute CD19 Count Coronavirus (PCR) HIV-1 RNA PCR copies/ml HIV-1 RNA (PCR) log 09/21/20 09/21/20 09/21/20 Unknown Unknown Unknown WBC RBC 3.56 L Hgb 11.3 L Hct 33.2 L MCV MCH MCHC Plt Count 125 L Lymph % (Auto) [place] % (Auto) Lymph # (Auto) [place] # (Auto) Seg Neutrophils % Seg Neuts % (Manual) 90.0 H Lymphocytes % (Manual) 8.0 L Monocytes % (Manual) Nucleated RBC % 1.0 H Seg Neutrophils # Seg Neutrophils # Man 9.4 H Abs Lymphs (Manual) Lymphocytes # (Manual) 0.8 L PT 16.8 H INR 1.36 H APTT D-Dimer Heparin Anti-Xa Level ABG pH POC ABG pCO2 POC ABG pO2 ABG Oxyhemoglobin ABG Sodium ABG Potassium ABG Glucose Carboxyhemoglobin Sodium Chloride Carbon Dioxide BUN 83 H Creatinine 4.3 H Glucose 163 H POC Glucose Calcium Phosphorus Ferritin Total Bilirubin 2.40 H AST ALT 57 H Alkaline Phosphatase < 5 L Lactate Dehydrogenase Total Creatine Kinase Troponin T C-Reactive Protein NT-Pro-B Natriuret Pep Total Protein Albumin 1.9 L Cholesterol LDL Cholesterol Direct HDL Cholesterol PTH Intact Arterial Blood Glucose Urine WBC (Auto) Urine Creatinine Heparin-induced Plt Ab Lymph Enumerat CD4/CD8 Absolute CD3 Count Absolute CD4 Count % CD8 Cells Absolute CD8 Count Absolute CD19 Count Coronavirus (PCR) HIV-1 RNA PCR copies/ml HIV-1 RNA (PCR) log 09/22/20 09/22/20 09/22/20 05:38 05:38 05:38 WBC 15.8 H RBC 3.36 L Hgb 10.8 L Hct 31.0 L MCV MCH MCHC 35 H Plt Count 68 L Lymph % (Auto) 3.1 L [place] % (Auto) 10.7 H Lymph # (Auto) 0.5 L [place] # (Auto) 1.7 H Seg Neutrophils % 85.9 H Seg Neuts % (Manual) Lymphocytes % (Manual) Monocytes % (Manual) Nucleated RBC % Seg Neutrophils # 13.6 H Seg Neutrophils # Man Abs Lymphs (Manual) Lymphocytes # (Manual) PT INR APTT D-Dimer 3281.49 H Heparin Anti-Xa Level ABG pH POC ABG pCO2 POC ABG pO2 ABG Oxyhemoglobin ABG Sodium ABG Potassium ABG Glucose Carboxyhemoglobin Sodium Chloride Carbon Dioxide BUN 61 H Creatinine 3.1 H Glucose 129 H POC Glucose Calcium Phosphorus Ferritin Total Bilirubin AST ALT Alkaline Phosphatase Lactate Dehydrogenase 277 H Total Creatine Kinase Troponin T C-Reactive Protein 6.60 H NT-Pro-B Natriuret Pep Total Protein Albumin Cholesterol LDL Cholesterol Direct HDL Cholesterol PTH Intact Arterial Blood Glucose Urine WBC (Auto) Urine Creatinine Heparin-induced Plt Ab Lymph Enumerat CD4/CD8 Absolute CD3 Count Absolute CD4 Count % CD8 Cells Absolute CD8 Count Absolute CD19 Count Coronavirus (PCR) HIV-1 RNA PCR copies/ml HIV-1 RNA (PCR) log 09/22/20 09/22/20 09/22/20 05:38 05:44 11:26 WBC RBC Hgb Hct MCV MCH MCHC Plt Count Lymph % (Auto) [place] % (Auto) Lymph # (Auto) [place] # (Auto) Seg Neutrophils % Seg Neuts % (Manual) Lymphocytes % (Manual) Monocytes % (Manual) Nucleated RBC % Seg Neutrophils # Seg Neutrophils # Man Abs Lymphs (Manual) Lymphocytes # (Manual) PT INR APTT D-Dimer Heparin Anti-Xa Level ABG pH POC ABG pCO2 POC ABG pO2 ABG Oxyhemoglobin ABG Sodium ABG Potassium ABG Glucose Carboxyhemoglobin Sodium Chloride Carbon Dioxide BUN Creatinine Glucose POC Glucose 112 H 131 H Calcium Phosphorus Ferritin 927.8 H Total Bilirubin AST ALT Alkaline Phosphatase Lactate Dehydrogenase Total Creatine Kinase Troponin T C-Reactive Protein NT-Pro-B Natriuret Pep Total Protein Albumin Cholesterol LDL Cholesterol Direct HDL Cholesterol PTH Intact Arterial Blood Glucose Urine WBC (Auto) Urine Creatinine Heparin-induced Plt Ab Lymph Enumerat CD4/CD8 Absolute CD3 Count Absolute CD4 Count % CD8 Cells Absolute CD8 Count Absolute CD19 Count Coronavirus (PCR) HIV-1 RNA PCR copies/ml HIV-1 RNA (PCR) log 09/22/20 09/22/20 09/22/20 15:12 15:12 15:12 WBC RBC Hgb Hct MCV MCH MCHC Plt Count Lymph % (Auto) [place] % (Auto) Lymph # (Auto) [place] # (Auto) Seg Neutrophils % Seg Neuts % (Manual) Lymphocytes % (Manual) Monocytes % (Manual) Nucleated RBC % Seg Neutrophils # Seg Neutrophils # Man Abs Lymphs (Manual) Lymphocytes # (Manual) PT 17.3 H INR 1.42 H APTT D-Dimer Heparin Anti-Xa Level ABG pH POC ABG pCO2 POC ABG pO2 ABG Oxyhemoglobin ABG Sodium ABG Potassium ABG Glucose Carboxyhemoglobin Sodium Chloride Carbon Dioxide BUN Creatinine 3.0 H Glucose POC Glucose Calcium Phosphorus Ferritin Total Bilirubin AST ALT Alkaline Phosphatase Lactate Dehydrogenase Total Creatine Kinase Troponin T C-Reactive Protein NT-Pro-B Natriuret Pep Total Protein Albumin Cholesterol LDL Cholesterol Direct HDL Cholesterol PTH Intact Arterial Blood Glucose Urine WBC (Auto) Urine Creatinine Heparin-induced Plt Ab Weak positive H Lymph Enumerat CD4/CD8 Absolute CD3 Count Absolute CD4 Count % CD8 Cells Absolute CD8 Count Absolute CD19 Count Coronavirus (PCR) HIV-1 RNA PCR copies/ml HIV-1 RNA (PCR) log 09/22/20 09/22/20 09/23/20 16:53 23:55 04:36 WBC 14.2 H RBC 3.05 L Hgb 9.8 L Hct 28.4 L MCV MCH MCHC Plt Count 39 L Lymph % (Auto) [place] % (Auto) Lymph # (Auto) [place] # (Auto) Seg Neutrophils % Seg Neuts % (Manual) 91.0 H Lymphocytes % (Manual) 2.0 L Monocytes % (Manual) Nucleated RBC % Seg Neutrophils # Seg Neutrophils # Man 12.9 H Abs Lymphs (Manual) Lymphocytes # (Manual) 0.3 L PT INR APTT D-Dimer Heparin Anti-Xa Level ABG pH POC ABG pCO2 POC ABG pO2 ABG Oxyhemoglobin ABG Sodium ABG Potassium ABG Glucose Carboxyhemoglobin Sodium Chloride Carbon Dioxide BUN Creatinine Glucose POC Glucose 138 H 171 H Calcium Phosphorus Ferritin Total Bilirubin AST ALT Alkaline Phosphatase Lactate Dehydrogenase Total Creatine Kinase Troponin T C-Reactive Protein NT-Pro-B Natriuret Pep Total Protein Albumin Cholesterol LDL Cholesterol Direct HDL Cholesterol PTH Intact Arterial Blood Glucose Urine WBC (Auto) Urine Creatinine Heparin-induced Plt Ab Lymph Enumerat CD4/CD8 Absolute CD3 Count Absolute CD4 Count % CD8 Cells Absolute CD8 Count Absolute CD19 Count Coronavirus (PCR) HIV-1 RNA PCR copies/ml HIV-1 RNA (PCR) log 09/23/20 09/23/20 09/23/20 04:36 05:41 11:38 WBC RBC Hgb Hct MCV MCH MCHC Plt Count Lymph % (Auto) [place] % (Auto) Lymph # (Auto) [place] # (Auto) Seg Neutrophils % Seg Neuts % (Manual) Lymphocytes % (Manual) Monocytes % (Manual) Nucleated RBC % Seg Neutrophils # Seg Neutrophils # Man Abs Lymphs (Manual) Lymphocytes # (Manual) PT INR APTT D-Dimer Heparin Anti-Xa Level ABG pH POC ABG pCO2 POC ABG pO2 ABG Oxyhemoglobin ABG Sodium ABG Potassium ABG Glucose Carboxyhemoglobin Sodium Chloride Carbon Dioxide BUN 76 H Creatinine 3.1 H Glucose 157 H POC Glucose 136 H 141 H Calcium Phosphorus Ferritin Total Bilirubin AST ALT Alkaline Phosphatase Lactate Dehydrogenase Total Creatine Kinase Troponin T C-Reactive Protein NT-Pro-B Natriuret Pep Total Protein Albumin Cholesterol LDL Cholesterol Direct HDL Cholesterol PTH Intact Arterial Blood Glucose Urine WBC (Auto) Urine Creatinine Heparin-induced Plt Ab Lymph Enumerat CD4/CD8 Absolute CD3 Count Absolute CD4 Count % CD8 Cells Absolute CD8 Count Absolute CD19 Count Coronavirus (PCR) HIV-1 RNA PCR copies/ml HIV-1 RNA (PCR) log 09/23/20 09/23/20 09/24/20 17:09 23:51 05:00 WBC 24.2 H RBC 3.23 L Hgb 10.0 L Hct 29.7 L MCV MCH MCHC Plt Count 74 L Lymph % (Auto) [place] % (Auto) Lymph # (Auto) [place] # (Auto) Seg Neutrophils % Seg Neuts % (Manual) Lymphocytes % (Manual) Monocytes % (Manual) Nucleated RBC % Seg Neutrophils # Seg Neutrophils # Man Abs Lymphs (Manual) Lymphocytes # (Manual) PT INR APTT D-Dimer Heparin Anti-Xa Level ABG pH POC ABG pCO2 POC ABG pO2 ABG Oxyhemoglobin ABG Sodium ABG Potassium ABG Glucose Carboxyhemoglobin Sodium Chloride Carbon Dioxide BUN Creatinine Glucose POC Glucose 128 H 128 H Calcium Phosphorus Ferritin Total Bilirubin AST ALT Alkaline Phosphatase Lactate Dehydrogenase Total Creatine Kinase Troponin T C-Reactive Protein NT-Pro-B Natriuret Pep Total Protein Albumin Cholesterol LDL Cholesterol Direct HDL Cholesterol PTH Intact Arterial Blood Glucose Urine WBC (Auto) Urine Creatinine Heparin-induced Plt Ab Lymph Enumerat CD4/CD8 Absolute CD3 Count Absolute CD4 Count % CD8 Cells Absolute CD8 Count Absolute CD19 Count Coronavirus (PCR) HIV-1 RNA PCR copies/ml HIV-1 RNA (PCR) log 09/24/20 09/24/20 09/24/20 05:00 05:00 05:00 WBC RBC Hgb Hct MCV MCH MCHC Plt Count Lymph % (Auto) [place] % (Auto) Lymph # (Auto) [place] # (Auto) Seg Neutrophils % Seg Neuts % (Manual) Lymphocytes % (Manual) Monocytes % (Manual) Nucleated RBC % Seg Neutrophils # Seg Neutrophils # Man Abs Lymphs (Manual) Lymphocytes # (Manual) PT INR APTT D-Dimer 1772.86 H Heparin Anti-Xa Level ABG pH POC ABG pCO2 POC ABG pO2 ABG Oxyhemoglobin ABG Sodium ABG Potassium ABG Glucose Carboxyhemoglobin Sodium Chloride 107.1 H Carbon Dioxide BUN 90 H Creatinine 3.1 H Glucose 118 H POC Glucose Calcium Phosphorus Ferritin 1190.0 H Total Bilirubin AST ALT Alkaline Phosphatase Lactate Dehydrogenase 276 H Total Creatine Kinase Troponin T C-Reactive Protein 4.20 H NT-Pro-B Natriuret Pep Total Protein Albumin Cholesterol LDL Cholesterol Direct HDL Cholesterol PTH Intact Arterial Blood Glucose Urine WBC (Auto) Urine Creatinine Heparin-induced Plt Ab Lymph Enumerat CD4/CD8 Absolute CD3 Count Absolute CD4 Count % CD8 Cells Absolute CD8 Count Absolute CD19 Count Coronavirus (PCR) HIV-1 RNA PCR copies/ml HIV-1 RNA (PCR) log 09/24/20 09/24/20 09/24/20 05:12 11:25 12:09 WBC RBC Hgb Hct MCV MCH MCHC Plt Count Lymph % (Auto) [place] % (Auto) Lymph # (Auto) [place] # (Auto) Seg Neutrophils % Seg Neuts % (Manual) Lymphocytes % (Manual) Monocytes % (Manual) Nucleated RBC % Seg Neutrophils # Seg Neutrophils # Man Abs Lymphs (Manual) Lymphocytes # (Manual) PT INR APTT D-Dimer Heparin Anti-Xa Level ABG pH POC ABG pCO2 POC ABG pO2 ABG Oxyhemoglobin ABG Sodium ABG Potassium ABG Glucose Carboxyhemoglobin Sodium Chloride Carbon Dioxide BUN Creatinine 3.1 H Glucose POC Glucose 114 H 110 H Calcium Phosphorus Ferritin Total Bilirubin AST ALT Alkaline Phosphatase Lactate Dehydrogenase Total Creatine Kinase Troponin T C-Reactive Protein NT-Pro-B Natriuret Pep Total Protein Albumin Cholesterol LDL Cholesterol Direct HDL Cholesterol PTH Intact Arterial Blood Glucose Urine WBC (Auto) Urine Creatinine Heparin-induced Plt Ab Lymph Enumerat CD4/CD8 Absolute CD3 Count Absolute CD4 Count % CD8 Cells Absolute CD8 Count Absolute CD19 Count Coronavirus (PCR) HIV-1 RNA PCR copies/ml HIV-1 RNA (PCR) log 09/24/20 09/24/20 09/24/20 12:13 12:13 17:41 WBC 20.8 H RBC 3.04 L Hgb 9.5 L Hct 28.0 L MCV MCH MCHC Plt Count 78 L Lymph % (Auto) [place] % (Auto) Lymph # (Auto) [place] # (Auto) Seg Neutrophils % Seg Neuts % (Manual) Lymphocytes % (Manual) Monocytes % (Manual) Nucleated RBC % Seg Neutrophils # Seg Neutrophils # Man Abs Lymphs (Manual) Lymphocytes # (Manual) PT 15.7 H INR 1.27 H APTT D-Dimer Heparin Anti-Xa Level ABG pH POC ABG pCO2 POC ABG pO2 ABG Oxyhemoglobin ABG Sodium ABG Potassium ABG Glucose Carboxyhemoglobin Sodium Chloride Carbon Dioxide BUN Creatinine Glucose POC Glucose 133 H Calcium Phosphorus Ferritin Total Bilirubin AST ALT Alkaline Phosphatase Lactate Dehydrogenase Total Creatine Kinase Troponin T C-Reactive Protein NT-Pro-B Natriuret Pep Total Protein Albumin Cholesterol LDL Cholesterol Direct HDL Cholesterol PTH Intact Arterial Blood Glucose Urine WBC (Auto) Urine Creatinine Heparin-induced Plt Ab Lymph Enumerat CD4/CD8 Absolute CD3 Count Absolute CD4 Count % CD8 Cells Absolute CD8 Count Absolute CD19 Count Coronavirus (PCR) HIV-1 RNA PCR copies/ml HIV-1 RNA (PCR) log 09/24/20 09/25/20 09/25/20 23:34 06:40 06:40 WBC RBC Hgb Hct MCV MCH MCHC Plt Count Lymph % (Auto) [place] % (Auto) Lymph # (Auto) [place] # (Auto) Seg Neutrophils % Seg Neuts % (Manual) Lymphocytes % (Manual) Monocytes % (Manual) Nucleated RBC % Seg Neutrophils # Seg Neutrophils # Man Abs Lymphs (Manual) Lymphocytes # (Manual) PT INR APTT D-Dimer Heparin Anti-Xa Level ABG pH POC ABG pCO2 POC ABG pO2 ABG Oxyhemoglobin ABG Sodium ABG Potassium ABG Glucose Carboxyhemoglobin Sodium Chloride 109.0 H Carbon Dioxide BUN 98 H Creatinine 3.0 H 3.0 H Glucose 111 H POC Glucose 113 H Calcium Phosphorus Ferritin Total Bilirubin AST ALT Alkaline Phosphatase Lactate Dehydrogenase Total Creatine Kinase Troponin T C-Reactive Protein NT-Pro-B Natriuret Pep Total Protein Albumin Cholesterol LDL Cholesterol Direct HDL Cholesterol PTH Intact Arterial Blood Glucose Urine WBC (Auto) Urine Creatinine Heparin-induced Plt Ab Lymph Enumerat CD4/CD8 Absolute CD3 Count Absolute CD4 Count % CD8 Cells Absolute CD8 Count Absolute CD19 Count Coronavirus (PCR) HIV-1 RNA PCR copies/ml HIV-1 RNA (PCR) log 09/25/20 09/25/20 09/25/20 10:45 12:45 18:03 WBC 20.7 H RBC 3.33 L Hgb 10.2 L Hct 31.3 L MCV MCH MCHC Plt Count 139 L Lymph % (Auto) [place] % (Auto) Lymph # (Auto) [place] # (Auto) Seg Neutrophils % Seg Neuts % (Manual) Lymphocytes % (Manual) Monocytes % (Manual) Nucleated RBC % Seg Neutrophils # Seg Neutrophils # Man Abs Lymphs (Manual) Lymphocytes # (Manual) PT INR APTT D-Dimer Heparin Anti-Xa Level ABG pH POC ABG pCO2 POC ABG pO2 ABG Oxyhemoglobin ABG Sodium ABG Potassium ABG Glucose Carboxyhemoglobin Sodium Chloride Carbon Dioxide BUN Creatinine Glucose POC Glucose 108 H 114 H Calcium Phosphorus Ferritin Total Bilirubin AST ALT Alkaline Phosphatase Lactate Dehydrogenase Total Creatine Kinase Troponin T C-Reactive Protein NT-Pro-B Natriuret Pep Total Protein Albumin Cholesterol LDL Cholesterol Direct HDL Cholesterol PTH Intact Arterial Blood Glucose Urine WBC (Auto) Urine Creatinine Heparin-induced Plt Ab Lymph Enumerat CD4/CD8 Absolute CD3 Count Absolute CD4 Count % CD8 Cells Absolute CD8 Count Absolute CD19 Count Coronavirus (PCR) HIV-1 RNA PCR copies/ml HIV-1 RNA (PCR) log 09/25/20 09/26/20 09/26/20 23:29 05:00 07:06 WBC 17.0 H RBC 3.10 L Hgb 9.6 L Hct 28.8 L MCV MCH MCHC Plt Count Lymph % (Auto) [place] % (Auto) Lymph # (Auto) [place] # (Auto) Seg Neutrophils % Seg Neuts % (Manual) Lymphocytes % (Manual) Monocytes % (Manual) Nucleated RBC % Seg Neutrophils # Seg Neutrophils # Man Abs Lymphs (Manual) Lymphocytes # (Manual) PT INR APTT D-Dimer Heparin Anti-Xa Level ABG pH POC ABG pCO2 POC ABG pO2 ABG Oxyhemoglobin ABG Sodium ABG Potassium ABG Glucose Carboxyhemoglobin Sodium Chloride Carbon Dioxide BUN Creatinine Glucose POC Glucose 111 H 115 H Calcium Phosphorus Ferritin Total Bilirubin AST ALT Alkaline Phosphatase Lactate Dehydrogenase Total Creatine Kinase Troponin T C-Reactive Protein NT-Pro-B Natriuret Pep Total Protein Albumin Cholesterol LDL Cholesterol Direct HDL Cholesterol PTH Intact Arterial Blood Glucose Urine WBC (Auto) Urine Creatinine Heparin-induced Plt Ab Lymph Enumerat CD4/CD8 Absolute CD3 Count Absolute CD4 Count % CD8 Cells Absolute CD8 Count Absolute CD19 Count Coronavirus (PCR) HIV-1 RNA PCR copies/ml HIV-1 RNA (PCR) log 09/26/20 09/26/20 09/27/20 07:06 17:26 04:00 WBC RBC Hgb Hct MCV MCH MCHC Plt Count Lymph % (Auto) [place] % (Auto) Lymph # (Auto) [place] # (Auto) Seg Neutrophils % Seg Neuts % (Manual) Lymphocytes % (Manual) Monocytes % (Manual) Nucleated RBC % Seg Neutrophils # Seg Neutrophils # Man Abs Lymphs (Manual) Lymphocytes # (Manual) PT INR APTT D-Dimer Heparin Anti-Xa Level ABG pH POC ABG pCO2 POC ABG pO2 ABG Oxyhemoglobin ABG Sodium ABG Potassium ABG Glucose Carboxyhemoglobin Sodium Chloride Carbon Dioxide BUN 69 H 67 H Creatinine 2.2 H 2.3 H Glucose 107 H 121 H POC Glucose 124 H Calcium Phosphorus Ferritin Total Bilirubin AST ALT Alkaline Phosphatase Lactate Dehydrogenase Total Creatine Kinase Troponin T C-Reactive Protein NT-Pro-B Natriuret Pep Total Protein Albumin Cholesterol LDL Cholesterol Direct HDL Cholesterol PTH Intact Arterial Blood Glucose Urine WBC (Auto) Urine Creatinine Heparin-induced Plt Ab Lymph Enumerat CD4/CD8 Absolute CD3 Count Absolute CD4 Count % CD8 Cells Absolute CD8 Count Absolute CD19 Count Coronavirus (PCR) HIV-1 RNA PCR copies/ml HIV-1 RNA (PCR) log 09/27/20 09/27/20 09/27/20 04:00 05:00 17:11 WBC 14.6 H RBC 2.72 L Hgb 8.6 L Hct 25.8 L MCV 95 H MCH MCHC Plt Count Lymph % (Auto) 4.3 L [place] % (Auto) Lymph # (Auto) 0.6 L [place] # (Auto) 0.9 H Seg Neutrophils % 89.6 H Seg Neuts % (Manual) Lymphocytes % (Manual) Monocytes % (Manual) Nucleated RBC % Seg Neutrophils # 13.1 H Seg Neutrophils # Man Abs Lymphs (Manual) Lymphocytes # (Manual) PT INR APTT D-Dimer Heparin Anti-Xa Level ABG pH POC ABG pCO2 POC ABG pO2 ABG Oxyhemoglobin ABG Sodium ABG Potassium ABG Glucose Carboxyhemoglobin Sodium Chloride Carbon Dioxide BUN Creatinine 2.4 H Glucose POC Glucose 132 H Calcium Phosphorus Ferritin Total Bilirubin AST ALT Alkaline Phosphatase Lactate Dehydrogenase Total Creatine Kinase Troponin T C-Reactive Protein NT-Pro-B Natriuret Pep Total Protein Albumin Cholesterol LDL Cholesterol Direct HDL Cholesterol PTH Intact Arterial Blood Glucose Urine WBC (Auto) Urine Creatinine Heparin-induced Plt Ab Lymph Enumerat CD4/CD8 Absolute CD3 Count Absolute CD4 Count % CD8 Cells Absolute CD8 Count Absolute CD19 Count Coronavirus (PCR) HIV-1 RNA PCR copies/ml HIV-1 RNA (PCR) log 09/28/20 09/28/20 09/29/20 04:46 04:46 04:45 WBC 14.6 H RBC 2.66 L Hgb 8.4 L Hct 25.3 L MCV 95 H MCH MCHC Plt Count Lymph % (Auto) [place] % (Auto) Lymph # (Auto) [place] # (Auto) Seg Neutrophils % Seg Neuts % (Manual) Lymphocytes % (Manual) Monocytes % (Manual) Nucleated RBC % Seg Neutrophils # Seg Neutrophils # Man Abs Lymphs (Manual) Lymphocytes # (Manual) PT INR APTT D-Dimer Heparin Anti-Xa Level ABG pH POC ABG pCO2 POC ABG pO2 ABG Oxyhemoglobin ABG Sodium ABG Potassium ABG Glucose Carboxyhemoglobin Sodium Chloride Carbon Dioxide BUN 71 H 63 H Creatinine 2.3 H 2.2 H Glucose 105 H POC Glucose Calcium Phosphorus Ferritin Total Bilirubin AST ALT Alkaline Phosphatase Lactate Dehydrogenase Total Creatine Kinase Troponin T C-Reactive Protein NT-Pro-B Natriuret Pep Total Protein Albumin Cholesterol LDL Cholesterol Direct HDL Cholesterol PTH Intact Arterial Blood Glucose Urine WBC (Auto) Urine Creatinine Heparin-induced Plt Ab Lymph Enumerat CD4/CD8 Absolute CD3 Count Absolute CD4 Count % CD8 Cells Absolute CD8 Count Absolute CD19 Count Coronavirus (PCR) HIV-1 RNA PCR copies/ml HIV-1 RNA (PCR) log 09/29/20 09/29/20 09/29/20 04:45 05:43 17:50 WBC RBC 2.92 L Hgb 9.6 L Hct 28.1 L MCV 96 H MCH 33 H MCHC Plt Count Lymph % (Auto) [place] % (Auto) Lymph # (Auto) [place] # (Auto) Seg Neutrophils % Seg Neuts % (Manual) Lymphocytes % (Manual) Monocytes % (Manual) Nucleated RBC % Seg Neutrophils # Seg Neutrophils # Man Abs Lymphs (Manual) Lymphocytes # (Manual) PT INR APTT D-Dimer Heparin Anti-Xa Level ABG pH POC ABG pCO2 POC ABG pO2 ABG Oxyhemoglobin ABG Sodium ABG Potassium ABG Glucose Carboxyhemoglobin Sodium Chloride Carbon Dioxide BUN Creatinine Glucose POC Glucose 69 L 132 H Calcium Phosphorus Ferritin Total Bilirubin AST ALT Alkaline Phosphatase Lactate Dehydrogenase Total Creatine Kinase Troponin T C-Reactive Protein NT-Pro-B Natriuret Pep Total Protein Albumin Cholesterol LDL Cholesterol Direct HDL Cholesterol PTH Intact Arterial Blood Glucose Urine WBC (Auto) Urine Creatinine Heparin-induced Plt Ab Lymph Enumerat CD4/CD8 Absolute CD3 Count Absolute CD4 Count % CD8 Cells Absolute CD8 Count Absolute CD19 Count Coronavirus (PCR) HIV-1 RNA PCR copies/ml HIV-1 RNA (PCR) log 09/30/20 09/30/20 10/01/20 04:47 04:47 07:16 WBC RBC 2.47 L Hgb 8.1 L Hct 23.9 L MCV 97 H MCH 33 H MCHC Plt Count Lymph % (Auto) [place] % (Auto) Lymph # (Auto) [place] # (Auto) Seg Neutrophils % Seg Neuts % (Manual) Lymphocytes % (Manual) Monocytes % (Manual) Nucleated RBC % Seg Neutrophils # Seg Neutrophils # Man Abs Lymphs (Manual) Lymphocytes # (Manual) PT INR APTT D-Dimer Heparin Anti-Xa Level ABG pH POC ABG pCO2 POC ABG pO2 ABG Oxyhemoglobin ABG Sodium ABG Potassium ABG Glucose Carboxyhemoglobin Sodium Chloride Carbon Dioxide 31 H BUN 63 H 58 H Creatinine 2.1 H 2.2 H Glucose POC Glucose Calcium Phosphorus Ferritin Total Bilirubin AST ALT Alkaline Phosphatase Lactate Dehydrogenase Total Creatine Kinase Troponin T C-Reactive Protein NT-Pro-B Natriuret Pep Total Protein 5.9 L Albumin 2.2 L Cholesterol LDL Cholesterol Direct HDL Cholesterol PTH Intact Arterial Blood Glucose Urine WBC (Auto) Urine Creatinine Heparin-induced Plt Ab Lymph Enumerat CD4/CD8 Absolute CD3 Count Absolute CD4 Count % CD8 Cells Absolute CD8 Count Absolute CD19 Count Coronavirus (PCR) HIV-1 RNA PCR copies/ml HIV-1 RNA (PCR) log 10/02/20 05:10 WBC RBC Hgb Hct MCV MCH MCHC Plt Count Lymph % (Auto) [place] % (Auto) Lymph # (Auto) [place] # (Auto) Seg Neutrophils % Seg Neuts % (Manual) Lymphocytes % (Manual) Monocytes % (Manual) Nucleated RBC % Seg Neutrophils # Seg Neutrophils # Man Abs Lymphs (Manual) Lymphocytes # (Manual) PT INR APTT D-Dimer Heparin Anti-Xa Level ABG pH POC ABG pCO2 POC ABG pO2 ABG Oxyhemoglobin ABG Sodium ABG Potassium ABG Glucose Carboxyhemoglobin Sodium Chloride Carbon Dioxide BUN 48 H Creatinine 2.0 H Glucose POC Glucose Calcium Phosphorus Ferritin Total Bilirubin AST ALT Alkaline Phosphatase Lactate Dehydrogenase Total Creatine Kinase Troponin T C-Reactive Protein NT-Pro-B Natriuret Pep Total Protein Albumin Cholesterol LDL Cholesterol Direct HDL Cholesterol PTH Intact Arterial Blood Glucose Urine WBC (Auto) Urine Creatinine Heparin-induced Plt Ab Lymph Enumerat CD4/CD8 Absolute CD3 Count Absolute CD4 Count % CD8 Cells Absolute CD8 Count Absolute CD19 Count Coronavirus (PCR) HIV-1 RNA PCR copies/ml HIV-1 RNA (PCR) log
--- NOTE | 2020-10-02 13:19 | Cat Scan Report ---
CT HEAD WITHOUT CONTRAST INDICATION / CLINICAL INFORMATION: ams. TECHNIQUE: All CT scans at this location are performed using CT dose reduction for ALARA by means of automated e xposure control. COMPARISON: 09/23/2020 FINDINGS: HEMORRHAGE: None. EXTRA-AXIAL SPACES: Normal in size and morphology for the patient's age. VENTRICULAR SYSTEM: Normal in size and morphology for the patient's age. CEREBRAL PARENCHYMA: Moderate/severe chronic microvascular changes are noted in the periventricular s ubcortical white matter. Supratentorial parenchymal atrophy similar to prior exam. MIDLINE SHIFT OR HERNIATION: None. CEREBELLUM / BRAINSTEM: No significant abnormality. ORBITS: The left lens is noted in the posterior aspect of the orbit, unchanged from prior exam. Possi ble prior lens dislocation. SOFT TISSUES of HEAD: Frontal scalp lipoma unchanged. CALVARIUM: No significant abnormality. PARANASAL SINUSES / MASTOID AIR CELLS: Normal as visualized. ADDITIONAL FINDINGS: None. IMPRESSION: 1. No acute intracranial abnormality. 2. Previously noted chronic microvessel changes and age-related parenchymal atrophy are similar. 3. 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 Clinical correlat ion is needed. 4. Frontal scalp lipoma unchanged in size and character since prior. Signer Name: Rusty Painter MD Signed: 10/02/2020 1:14 PM Workstation Name: [id number]
--- NOTE | 2020-10-02 13:25 | Progress Note ---
Assessment and Plan Acute hypoxemic respiratory failure. Atrial fibrillation with rapid ventricular response. Gram negative bacteremia Acute congestive heart failure exacerbation. Acute on chronic kidney injury. Anemia that is microcytic. Coagulopathy appears to be acquired. Respiratory alkalosis. Mild metabolic acidosis. Possible severe sepsis with shock due to a urinary tract infection. Urinary tract infection (i do feel that despite his CHF history he is septic now and with relative IVVD and will benefit from gentle hydration acutely - neurology evaluation ongoing - rate control per cardiology (on Amiodarone 200 mg qd) - continue Eliquis 2.5 mg p.o. bid - FUR LINER evaluation and advance diet as tolerated (pureed with thin lioquids) - s/p AB's per ID recommendations - continue care as below otherwise; - continue to wean supplemental oxygen for target O2 sat's > 92% acutely - Aspiration precautions - prn bronchodilators with pulmonary hygiene per RT - continue accuchecks with glycemic control per SSI for target blood glucose of < 180 mg/dL; avoid hypoglycemia - avoid nephrotoxins, renally dose all medications - continue to avoid benzodiazepine's, reduce the possibility of delirium - prn analgesia per pain score - Maintenance of sleep-wake cycle, avoid delirium - G.I. & VTE prophylaxis - PT/OT/ROM exercises - continue mobility protocols for pressure ulcer prophylaxis - Monitor hemodynamics closely - continue other care per attending / other consultants - discharge planning ongoing concurrently COVID SPECIFIC INTERVENTIONS - Remdesivir as per ID/Pulmonary developed protocols (not given due to LOLI) - systemic steroids for severe COVID-19 infection (s/p Decadron) - follow repeat COVID tests results - zinc and vitamin C supplementation - Monitor inflammatory markers per facility protocol - ferritin, Ddimer, CRP - therapeutic anticoagulation per system Protocol based on d-dimer and clinical considerations - Continue contact and airborne isolation ... improved .... Re-evaluate in am & prn Subjective Date of service: 10/01/20 Principal diagnosis: Acute Resp Fail, Sepsis, AF with RVR Interval history: Patient is seen today for: Acute hypoxemic respiratory failure; A-fib with RVR; AE-CHF; LOLI on CKD; Severe sepsis with shock; UTI Seen and examined at bedside; 24hour events reviewed; nursing and respiratory care staff consulted; no adverse overnight events reported to me; resting peacefully in bed; still with mild delirium; no N/V/F/C Objective Vital Signs - 12hr 05/14/21 04:23 Temperature 97.8 F Respiratory 16 Rate Blood Pressure 131/81 Constitutional: no acute distress, alert, other (elderly male with mildly increased respiratory effort at rest) Eyes: non-icteric ENT: oropharynx moist Neck: supple, no lymphadenopathy, no JVD Effort: mildly labored Ascultation: Bilateral: rhonchi Percussion: Bilateral: not dull Cardiovascular: irregular rhythm Gastrointestinal: normoactive bowel sounds, soft, non-tender, non-distended Integumentary: normal Extremities: no cyanosis, no edema, pulses normal, no ischemia or petechiae Neurologic: non-focal exam (grossly), pupils equal and round, CN II-XII normal, other (mild delirium) Psychiatric: other (mild delirium) CBC and BMP: 09/30/20 04:47 10/02/20 05:10 ABG, PT/INR, D-dimer: ABG ABG pH 7.508 (7.320-7.450) H 09/17/20 10:28 POC ABG pCO2 22.8 mmHg (32.0-48.0) L 09/17/20 10:28 POC ABG pO2 66.8 mmHg (83-108) L 09/17/20 10:28 POC ABG HCO3 17.7 09/17/20 10:28 ABG O2 Saturation 93.4 (0-100) 09/17/20 10:28 PT/INR, D-dimer PT 15.7 Sec. (12.2-14.9) H 09/24/20 12:13 INR 1.27 (0.87-1.13) H 09/24/20 12:13 D-Dimer 1772.86 ng/mlDDU (0-234) H 09/24/20 05:00 Abnormal lab findings: Abnormal Labs 09/17/20 09/17/20 09/17/20 10:28 10:47 10:47 WBC 11.1 H RBC 3.44 L Hgb 11.2 L Hct 32.8 L MCV 95 H MCH MCHC Plt Count Lymph % (Auto) [place] % (Auto) Lymph # (Auto) [place] # (Auto) Seg Neutrophils % Seg Neuts % (Manual) Lymphocytes % (Manual) 4.0 L Monocytes % (Manual) Nucleated RBC % Seg Neutrophils # Seg Neutrophils # Man 10.7 H Abs Lymphs (Manual) Lymphocytes # (Manual) 0.4 L PT 32.9 H INR 3.16 H APTT 51.1 H D-Dimer Heparin Anti-Xa Level ABG pH 7.508 H POC ABG pCO2 22.8 L POC ABG pO2 66.8 L ABG Oxyhemoglobin 92.7 L ABG Sodium 127.4 L ABG Potassium 4.7 H ABG Glucose 121 H Carboxyhemoglobin 0.4 L Sodium Chloride Carbon Dioxide BUN Creatinine Glucose POC Glucose Calcium Phosphorus Ferritin Total Bilirubin AST ALT Alkaline Phosphatase Lactate Dehydrogenase Total Creatine Kinase Troponin T C-Reactive Protein NT-Pro-B Natriuret Pep Total Protein Albumin Cholesterol LDL Cholesterol Direct HDL Cholesterol PTH Intact Arterial Blood Glucose 121 H Urine WBC (Auto) Urine Creatinine Heparin-induced Plt Ab Lymph Enumerat CD4/CD8 Absolute CD3 Count Absolute CD4 Count % CD8 Cells Absolute CD8 Count Absolute CD19 Count Coronavirus (PCR) HIV-1 RNA PCR copies/ml HIV-1 RNA (PCR) log 09/17/20 09/17/20 09/17/20 10:47 10:47 13:54 WBC RBC Hgb Hct MCV MCH MCHC Plt Count Lymph % (Auto) [place] % (Auto) Lymph # (Auto) [place] # (Auto) Seg Neutrophils % Seg Neuts % (Manual) Lymphocytes % (Manual) Monocytes % (Manual) Nucleated RBC % Seg Neutrophils # Seg Neutrophils # Man Abs Lymphs (Manual) Lymphocytes # (Manual) PT INR APTT D-Dimer Heparin Anti-Xa Level ABG pH POC ABG pCO2 POC ABG pO2 ABG Oxyhemoglobin ABG Sodium ABG Potassium ABG Glucose Carboxyhemoglobin Sodium 125 L Chloride 95.3 L Carbon Dioxide 17 L BUN 64 H Creatinine 4.6 H D Glucose 104 H POC Glucose Calcium Phosphorus Ferritin Total Bilirubin AST 69 H ALT Alkaline Phosphatase Lactate Dehydrogenase Total Creatine Kinase Troponin T 0.061 H D 0.058 H C-Reactive Protein NT-Pro-B Natriuret Pep 97507 H Total Protein Albumin 1.9 L Cholesterol 48 L LDL Cholesterol Direct 4 L HDL Cholesterol 9 L PTH Intact Arterial Blood Glucose Urine WBC (Auto) Urine Creatinine Heparin-induced Plt Ab Lymph Enumerat CD4/CD8 Absolute CD3 Count Absolute CD4 Count % CD8 Cells Absolute CD8 Count Absolute CD19 Count Coronavirus (PCR) HIV-1 RNA PCR copies/ml HIV-1 RNA (PCR) log 09/17/20 09/17/20 09/17/20 16:36 17:35 17:35 WBC RBC 3.25 L Hgb 10.7 L Hct 31.1 L MCV 96 H MCH 33 H MCHC Plt Count Lymph % (Auto) [place] % (Auto) Lymph # (Auto) [place] # (Auto) Seg Neutrophils % Seg Neuts % (Manual) Lymphocytes % (Manual) Monocytes % (Manual) Nucleated RBC % Seg Neutrophils # Seg Neutrophils # Man Abs Lymphs (Manual) Lymphocytes # (Manual) PT 31.9 H INR 3.04 H APTT 50.9 H D-Dimer Heparin Anti-Xa Level ABG pH POC ABG pCO2 POC ABG pO2 ABG Oxyhemoglobin ABG Sodium ABG Potassium ABG Glucose Carboxyhemoglobin Sodium Chloride Carbon Dioxide BUN Creatinine Glucose POC Glucose Calcium Phosphorus Ferritin Total Bilirubin AST ALT Alkaline Phosphatase Lactate Dehydrogenase Total Creatine Kinase Troponin T 0.057 H C-Reactive Protein NT-Pro-B Natriuret Pep Total Protein Albumin Cholesterol LDL Cholesterol Direct HDL Cholesterol PTH Intact Arterial Blood Glucose Urine WBC (Auto) Urine Creatinine Heparin-induced Plt Ab Lymph Enumerat CD4/CD8 Absolute CD3 Count Absolute CD4 Count % CD8 Cells Absolute CD8 Count Absolute CD19 Count Coronavirus (PCR) HIV-1 RNA PCR copies/ml HIV-1 RNA (PCR) log 09/17/20 09/18/20 09/18/20 17:35 03:19 03:19 WBC RBC 3.32 L Hgb 10.9 L Hct 32.0 L MCV 96 H MCH 33 H MCHC Plt Count 138 L Lymph % (Auto) [place] % (Auto) Lymph # (Auto) [place] # (Auto) Seg Neutrophils % Seg Neuts % (Manual) 95.0 H Lymphocytes % (Manual) 3.0 L Monocytes % (Manual) Nucleated RBC % Seg Neutrophils # Seg Neutrophils # Man 8.1 H Abs Lymphs (Manual) Lymphocytes # (Manual) 0.3 L PT INR APTT D-Dimer Heparin Anti-Xa Level ABG pH POC ABG pCO2 POC ABG pO2 ABG Oxyhemoglobin ABG Sodium ABG Potassium ABG Glucose Carboxyhemoglobin Sodium Chloride Carbon Dioxide 16 L BUN 70 H Creatinine 4.6 H 4.7 H Glucose 104 H POC Glucose Calcium 8.2 L Phosphorus Ferritin Total Bilirubin 1.60 H AST 128 H ALT 67 H Alkaline Phosphatase Lactate Dehydrogenase Total Creatine Kinase Troponin T C-Reactive Protein NT-Pro-B Natriuret Pep Total Protein 5.2 L D Albumin 2.5 L Cholesterol LDL Cholesterol Direct HDL Cholesterol PTH Intact Arterial Blood Glucose Urine WBC (Auto) Urine Creatinine Heparin-induced Plt Ab Lymph Enumerat CD4/CD8 Absolute CD3 Count Absolute CD4 Count % CD8 Cells Absolute CD8 Count Absolute CD19 Count Coronavirus (PCR) HIV-1 RNA PCR copies/ml HIV-1 RNA (PCR) log 09/18/20 09/18/20 09/18/20 09:39 12:00 12:00 WBC RBC Hgb Hct MCV MCH MCHC Plt Count Lymph % (Auto) [place] % (Auto) Lymph # (Auto) [place] # (Auto) Seg Neutrophils % Seg Neuts % (Manual) Lymphocytes % (Manual) Monocytes % (Manual) Nucleated RBC % Seg Neutrophils # Seg Neutrophils # Man Abs Lymphs (Manual) Lymphocytes # (Manual) PT INR APTT D-Dimer Heparin Anti-Xa Level ABG pH POC ABG pCO2 POC ABG pO2 ABG Oxyhemoglobin ABG Sodium ABG Potassium ABG Glucose Carboxyhemoglobin Sodium Chloride Carbon Dioxide BUN Creatinine Glucose POC Glucose Calcium Phosphorus Ferritin Total Bilirubin AST ALT Alkaline Phosphatase Lactate Dehydrogenase Total Creatine Kinase Troponin T C-Reactive Protein NT-Pro-B Natriuret Pep Total Protein Albumin Cholesterol LDL Cholesterol Direct HDL Cholesterol PTH Intact Arterial Blood Glucose Urine WBC (Auto) 71.0 H Urine Creatinine 61.0 H Heparin-induced Plt Ab Lymph Enumerat CD4/CD8 Absolute CD3 Count Absolute CD4 Count % CD8 Cells Absolute CD8 Count Absolute CD19 Count Coronavirus (PCR) Positive A HIV-1 RNA PCR copies/ml HIV-1 RNA (PCR) log 09/18/20 09/18/20 09/18/20 15:07 15:07 18:33 WBC RBC Hgb 10.7 L Hct 31.3 L MCV MCH MCHC Plt Count Lymph % (Auto) [place] % (Auto) Lymph # (Auto) [place] # (Auto) Seg Neutrophils % Seg Neuts % (Manual) Lymphocytes % (Manual) Monocytes % (Manual) Nucleated RBC % Seg Neutrophils # Seg Neutrophils # Man Abs Lymphs (Manual) Lymphocytes # (Manual) PT 20.3 H INR 1.73 H APTT 40.8 H D-Dimer Heparin Anti-Xa Level 1.09 H ABG pH POC ABG pCO2 POC ABG pO2 ABG Oxyhemoglobin ABG Sodium ABG Potassium ABG Glucose Carboxyhemoglobin Sodium Chloride Carbon Dioxide BUN Creatinine Glucose POC Glucose Calcium Phosphorus Ferritin Total Bilirubin AST ALT Alkaline Phosphatase Lactate Dehydrogenase Total Creatine Kinase Troponin T C-Reactive Protein NT-Pro-B Natriuret Pep Total Protein Albumin Cholesterol LDL Cholesterol Direct HDL Cholesterol PTH Intact Arterial Blood Glucose Urine WBC (Auto) Urine Creatinine Heparin-induced Plt Ab Lymph Enumerat CD4/CD8 Absolute CD3 Count Absolute CD4 Count % CD8 Cells Absolute CD8 Count Absolute CD19 Count Coronavirus (PCR) HIV-1 RNA PCR copies/ml HIV-1 RNA (PCR) log 09/19/20 09/19/20 09/19/20 03:30 03:30 03:30 WBC RBC 3.29 L Hgb 10.9 L Hct 30.9 L MCV MCH 33 H MCHC 35 H Plt Count Lymph % (Auto) [place] % (Auto) Lymph # (Auto) [place] # (Auto) Seg Neutrophils % Seg Neuts % (Manual) Lymphocytes % (Manual) Monocytes % (Manual) Nucleated RBC % Seg Neutrophils # Seg Neutrophils # Man Abs Lymphs (Manual) Lymphocytes # (Manual) PT INR APTT D-Dimer Heparin Anti-Xa Level ABG pH POC ABG pCO2 POC ABG pO2 ABG Oxyhemoglobin ABG Sodium ABG Potassium ABG Glucose Carboxyhemoglobin Sodium 133 L Chloride Carbon Dioxide 17 L BUN 94 H Creatinine 5.0 H Glucose 120 H POC Glucose Calcium Phosphorus 6.30 H Ferritin Total Bilirubin 2.40 H AST 163 H ALT 109 H Alkaline Phosphatase 160 H Lactate Dehydrogenase Total Creatine Kinase 20 L Troponin T C-Reactive Protein NT-Pro-B Natriuret Pep Total Protein 6.2 L Albumin 2.0 L Cholesterol LDL Cholesterol Direct HDL Cholesterol PTH Intact 161.4 H Arterial Blood Glucose Urine WBC (Auto) Urine Creatinine Heparin-induced Plt Ab Lymph Enumerat CD4/CD8 Absolute CD3 Count Absolute CD4 Count % CD8 Cells Absolute CD8 Count Absolute CD19 Count Coronavirus (PCR) HIV-1 RNA PCR copies/ml HIV-1 RNA (PCR) log 09/19/20 09/19/20 09/19/20 06:35 13:35 13:35 WBC RBC Hgb Hct MCV MCH MCHC Plt Count Lymph % (Auto) [place] % (Auto) Lymph # (Auto) [place] # (Auto) Seg Neutrophils % Seg Neuts % (Manual) Lymphocytes % (Manual) Monocytes % (Manual) Nucleated RBC % Seg Neutrophils # Seg Neutrophils # Man Abs Lymphs (Manual) 223 L Lymphocytes # (Manual) PT INR APTT D-Dimer Heparin Anti-Xa Level ABG pH POC ABG pCO2 POC ABG pO2 ABG Oxyhemoglobin ABG Sodium ABG Potassium ABG Glucose Carboxyhemoglobin Sodium Chloride Carbon Dioxide BUN Creatinine Glucose POC Glucose 123 H Calcium Phosphorus Ferritin Total Bilirubin AST ALT Alkaline Phosphatase Lactate Dehydrogenase Total Creatine Kinase Troponin T C-Reactive Protein NT-Pro-B Natriuret Pep Total Protein Albumin Cholesterol LDL Cholesterol Direct HDL Cholesterol PTH Intact Arterial Blood Glucose Urine WBC (Auto) Urine Creatinine Heparin-induced Plt Ab Lymph Enumerat CD4/CD8 0.70 L Absolute CD3 Count 175 L Absolute CD4 Count 70 L % CD8 Cells 45 H Absolute CD8 Count 101 L Absolute CD19 Count 26 L Coronavirus (PCR) HIV-1 RNA PCR copies/ml 67 H HIV-1 RNA (PCR) log 1.83 H 09/19/20 09/20/20 09/20/20 23:37 04:00 04:00 WBC RBC 3.43 L Hgb 11.1 L Hct 32.2 L MCV MCH MCHC Plt Count 131 L Lymph % (Auto) [place] % (Auto) Lymph # (Auto) [place] # (Auto) Seg Neutrophils % Seg Neuts % (Manual) 88.0 H Lymphocytes % (Manual) 3.0 L Monocytes % (Manual) 9.0 H Nucleated RBC % Seg Neutrophils # Seg Neutrophils # Man 8.2 H Abs Lymphs (Manual) Lymphocytes # (Manual) 0.3 L PT INR APTT D-Dimer Heparin Anti-Xa Level 0.10 L ABG pH POC ABG pCO2 POC ABG pO2 ABG Oxyhemoglobin ABG Sodium ABG Potassium ABG Glucose Carboxyhemoglobin Sodium Chloride Carbon Dioxide BUN Creatinine Glucose POC Glucose 135 H Calcium Phosphorus Ferritin Total Bilirubin AST ALT Alkaline Phosphatase Lactate Dehydrogenase Total Creatine Kinase Troponin T C-Reactive Protein NT-Pro-B Natriuret Pep Total Protein Albumin Cholesterol LDL Cholesterol Direct HDL Cholesterol PTH Intact Arterial Blood Glucose Urine WBC (Auto) Urine Creatinine Heparin-induced Plt Ab Lymph Enumerat CD4/CD8 Absolute CD3 Count Absolute CD4 Count % CD8 Cells Absolute CD8 Count Absolute CD19 Count Coronavirus (PCR) HIV-1 RNA PCR copies/ml HIV-1 RNA (PCR) log 09/20/20 09/20/20 09/20/20 04:00 05:37 11:20 WBC RBC Hgb Hct MCV MCH MCHC Plt Count Lymph % (Auto) [place] % (Auto) Lymph # (Auto) [place] # (Auto) Seg Neutrophils % Seg Neuts % (Manual) Lymphocytes % (Manual) Monocytes % (Manual) Nucleated RBC % Seg Neutrophils # Seg Neutrophils # Man Abs Lymphs (Manual) Lymphocytes # (Manual) PT INR APTT D-Dimer Heparin Anti-Xa Level ABG pH POC ABG pCO2 POC ABG pO2 ABG Oxyhemoglobin ABG Sodium ABG Potassium ABG Glucose Carboxyhemoglobin Sodium Chloride Carbon Dioxide 16 L BUN 119 H Creatinine 6.2 H Glucose 136 H POC Glucose 137 H 108 H Calcium Phosphorus Ferritin Total Bilirubin AST ALT Alkaline Phosphatase Lactate Dehydrogenase Total Creatine Kinase Troponin T C-Reactive Protein NT-Pro-B Natriuret Pep Total Protein Albumin Cholesterol LDL Cholesterol Direct HDL Cholesterol PTH Intact Arterial Blood Glucose Urine WBC (Auto) Urine Creatinine Heparin-induced Plt Ab Lymph Enumerat CD4/CD8 Absolute CD3 Count Absolute CD4 Count % CD8 Cells Absolute CD8 Count Absolute CD19 Count Coronavirus (PCR) HIV-1 RNA PCR copies/ml HIV-1 RNA (PCR) log 09/20/20 09/20/20 09/20/20 17:10 17:10 17:10 WBC RBC Hgb Hct MCV MCH MCHC Plt Count Lymph % (Auto) [place] % (Auto) Lymph # (Auto) [place] # (Auto) Seg Neutrophils % Seg Neuts % (Manual) Lymphocytes % (Manual) Monocytes % (Manual) Nucleated RBC % Seg Neutrophils # Seg Neutrophils # Man Abs Lymphs (Manual) Lymphocytes # (Manual) PT INR APTT D-Dimer 4271.58 H Heparin Anti-Xa Level ABG pH POC ABG pCO2 POC ABG pO2 ABG Oxyhemoglobin ABG Sodium ABG Potassium ABG Glucose Carboxyhemoglobin Sodium Chloride Carbon Dioxide BUN Creatinine 6.0 H Glucose POC Glucose Calcium Phosphorus Ferritin 696.6 H Total Bilirubin AST ALT Alkaline Phosphatase Lactate Dehydrogenase Total Creatine Kinase Troponin T C-Reactive Protein NT-Pro-B Natriuret Pep Total Protein Albumin Cholesterol LDL Cholesterol Direct HDL Cholesterol PTH Intact Arterial Blood Glucose Urine WBC (Auto) Urine Creatinine Heparin-induced Plt Ab Lymph Enumerat CD4/CD8 Absolute CD3 Count Absolute CD4 Count % CD8 Cells Absolute CD8 Count Absolute CD19 Count Coronavirus (PCR) HIV-1 RNA PCR copies/ml HIV-1 RNA (PCR) log 09/20/20 09/20/20 09/20/20 17:10 18:21 23:14 WBC RBC Hgb Hct MCV MCH MCHC Plt Count Lymph % (Auto) [place] % (Auto) Lymph # (Auto) [place] # (Auto) Seg Neutrophils % Seg Neuts % (Manual) Lymphocytes % (Manual) Monocytes % (Manual) Nucleated RBC % Seg Neutrophils # Seg Neutrophils # Man Abs Lymphs (Manual) Lymphocytes # (Manual) PT INR APTT D-Dimer Heparin Anti-Xa Level ABG pH POC ABG pCO2 POC ABG pO2 ABG Oxyhemoglobin ABG Sodium ABG Potassium ABG Glucose Carboxyhemoglobin Sodium Chloride Carbon Dioxide BUN Creatinine Glucose POC Glucose 129 H 170 H Calcium Phosphorus Ferritin Total Bilirubin AST ALT Alkaline Phosphatase Lactate Dehydrogenase 209 H Total Creatine Kinase Troponin T C-Reactive Protein 10.60 H NT-Pro-B Natriuret Pep Total Protein Albumin Cholesterol LDL Cholesterol Direct HDL Cholesterol PTH Intact Arterial Blood Glucose Urine WBC (Auto) Urine Creatinine Heparin-induced Plt Ab Lymph Enumerat CD4/CD8 Absolute CD3 Count Absolute CD4 Count % CD8 Cells Absolute CD8 Count Absolute CD19 Count Coronavirus (PCR) HIV-1 RNA PCR copies/ml HIV-1 RNA (PCR) log 09/21/20 09/21/20 09/21/20 05:35 17:09 23:18 WBC RBC Hgb Hct MCV MCH MCHC Plt Count Lymph % (Auto) [place] % (Auto) Lymph # (Auto) [place] # (Auto) Seg Neutrophils % Seg Neuts % (Manual) Lymphocytes % (Manual) Monocytes % (Manual) Nucleated RBC % Seg Neutrophils # Seg Neutrophils # Man Abs Lymphs (Manual) Lymphocytes # (Manual) PT INR APTT D-Dimer Heparin Anti-Xa Level ABG pH POC ABG pCO2 POC ABG pO2 ABG Oxyhemoglobin ABG Sodium ABG Potassium ABG Glucose Carboxyhemoglobin Sodium Chloride Carbon Dioxide BUN Creatinine Glucose POC Glucose 170 H 140 H 139 H Calcium Phosphorus Ferritin Total Bilirubin AST ALT Alkaline Phosphatase Lactate Dehydrogenase Total Creatine Kinase Troponin T C-Reactive Protein NT-Pro-B Natriuret Pep Total Protein Albumin Cholesterol LDL Cholesterol Direct HDL Cholesterol PTH Intact Arterial Blood Glucose Urine WBC (Auto) Urine Creatinine Heparin-induced Plt Ab Lymph Enumerat CD4/CD8 Absolute CD3 Count Absolute CD4 Count % CD8 Cells Absolute CD8 Count Absolute CD19 Count Coronavirus (PCR) HIV-1 RNA PCR copies/ml HIV-1 RNA (PCR) log 09/21/20 09/21/20 09/21/20 Unknown Unknown Unknown WBC RBC 3.56 L Hgb 11.3 L Hct 33.2 L MCV MCH MCHC Plt Count 125 L Lymph % (Auto) [place] % (Auto) Lymph # (Auto) [place] # (Auto) Seg Neutrophils % Seg Neuts % (Manual) 90.0 H Lymphocytes % (Manual) 8.0 L Monocytes % (Manual) Nucleated RBC % 1.0 H Seg Neutrophils # Seg Neutrophils # Man 9.4 H Abs Lymphs (Manual) Lymphocytes # (Manual) 0.8 L PT 16.8 H INR 1.36 H APTT D-Dimer Heparin Anti-Xa Level ABG pH POC ABG pCO2 POC ABG pO2 ABG Oxyhemoglobin ABG Sodium ABG Potassium ABG Glucose Carboxyhemoglobin Sodium Chloride Carbon Dioxide BUN 83 H Creatinine 4.3 H Glucose 163 H POC Glucose Calcium Phosphorus Ferritin Total Bilirubin 2.40 H AST ALT 57 H Alkaline Phosphatase < 5 L Lactate Dehydrogenase Total Creatine Kinase Troponin T C-Reactive Protein NT-Pro-B Natriuret Pep Total Protein Albumin 1.9 L Cholesterol LDL Cholesterol Direct HDL Cholesterol PTH Intact Arterial Blood Glucose Urine WBC (Auto) Urine Creatinine Heparin-induced Plt Ab Lymph Enumerat CD4/CD8 Absolute CD3 Count Absolute CD4 Count % CD8 Cells Absolute CD8 Count Absolute CD19 Count Coronavirus (PCR) HIV-1 RNA PCR copies/ml HIV-1 RNA (PCR) log 09/22/20 09/22/20 09/22/20 05:38 05:38 05:38 WBC 15.8 H RBC 3.36 L Hgb 10.8 L Hct 31.0 L MCV MCH MCHC 35 H Plt Count 68 L Lymph % (Auto) 3.1 L [place] % (Auto) 10.7 H Lymph # (Auto) 0.5 L [place] # (Auto) 1.7 H Seg Neutrophils % 85.9 H Seg Neuts % (Manual) Lymphocytes % (Manual) Monocytes % (Manual) Nucleated RBC % Seg Neutrophils # 13.6 H Seg Neutrophils # Man Abs Lymphs (Manual) Lymphocytes # (Manual) PT INR APTT D-Dimer 3281.49 H Heparin Anti-Xa Level ABG pH POC ABG pCO2 POC ABG pO2 ABG Oxyhemoglobin ABG Sodium ABG Potassium ABG Glucose Carboxyhemoglobin Sodium Chloride Carbon Dioxide BUN 61 H Creatinine 3.1 H Glucose 129 H POC Glucose Calcium Phosphorus Ferritin Total Bilirubin AST ALT Alkaline Phosphatase Lactate Dehydrogenase 277 H Total Creatine Kinase Troponin T C-Reactive Protein 6.60 H NT-Pro-B Natriuret Pep Total Protein Albumin Cholesterol LDL Cholesterol Direct HDL Cholesterol PTH Intact Arterial Blood Glucose Urine WBC (Auto) Urine Creatinine Heparin-induced Plt Ab Lymph Enumerat CD4/CD8 Absolute CD3 Count Absolute CD4 Count % CD8 Cells Absolute CD8 Count Absolute CD19 Count Coronavirus (PCR) HIV-1 RNA PCR copies/ml HIV-1 RNA (PCR) log 09/22/20 09/22/20 09/22/20 05:38 05:44 11:26 WBC RBC Hgb Hct MCV MCH MCHC Plt Count Lymph % (Auto) [place] % (Auto) Lymph # (Auto) [place] # (Auto) Seg Neutrophils % Seg Neuts % (Manual) Lymphocytes % (Manual) Monocytes % (Manual) Nucleated RBC % Seg Neutrophils # Seg Neutrophils # Man Abs Lymphs (Manual) Lymphocytes # (Manual) PT INR APTT D-Dimer Heparin Anti-Xa Level ABG pH POC ABG pCO2 POC ABG pO2 ABG Oxyhemoglobin ABG Sodium ABG Potassium ABG Glucose Carboxyhemoglobin Sodium Chloride Carbon Dioxide BUN Creatinine Glucose POC Glucose 112 H 131 H Calcium Phosphorus Ferritin 927.8 H Total Bilirubin AST ALT Alkaline Phosphatase Lactate Dehydrogenase Total Creatine Kinase Troponin T C-Reactive Protein NT-Pro-B Natriuret Pep Total Protein Albumin Cholesterol LDL Cholesterol Direct HDL Cholesterol PTH Intact Arterial Blood Glucose Urine WBC (Auto) Urine Creatinine Heparin-induced Plt Ab Lymph Enumerat CD4/CD8 Absolute CD3 Count Absolute CD4 Count % CD8 Cells Absolute CD8 Count Absolute CD19 Count Coronavirus (PCR) HIV-1 RNA PCR copies/ml HIV-1 RNA (PCR) log 09/22/20 09/22/20 09/22/20 15:12 15:12 15:12 WBC RBC Hgb Hct MCV MCH MCHC Plt Count Lymph % (Auto) [place] % (Auto) Lymph # (Auto) [place] # (Auto) Seg Neutrophils % Seg Neuts % (Manual) Lymphocytes % (Manual) Monocytes % (Manual) Nucleated RBC % Seg Neutrophils # Seg Neutrophils # Man Abs Lymphs (Manual) Lymphocytes # (Manual) PT 17.3 H INR 1.42 H APTT D-Dimer Heparin Anti-Xa Level ABG pH POC ABG pCO2 POC ABG pO2 ABG Oxyhemoglobin ABG Sodium ABG Potassium ABG Glucose Carboxyhemoglobin Sodium Chloride Carbon Dioxide BUN Creatinine 3.0 H Glucose POC Glucose Calcium Phosphorus Ferritin Total Bilirubin AST ALT Alkaline Phosphatase Lactate Dehydrogenase Total Creatine Kinase Troponin T C-Reactive Protein NT-Pro-B Natriuret Pep Total Protein Albumin Cholesterol LDL Cholesterol Direct HDL Cholesterol PTH Intact Arterial Blood Glucose Urine WBC (Auto) Urine Creatinine Heparin-induced Plt Ab Weak positive H Lymph Enumerat CD4/CD8 Absolute CD3 Count Absolute CD4 Count % CD8 Cells Absolute CD8 Count Absolute CD19 Count Coronavirus (PCR) HIV-1 RNA PCR copies/ml HIV-1 RNA (PCR) log 09/22/20 09/22/20 09/23/20 16:53 23:55 04:36 WBC 14.2 H RBC 3.05 L Hgb 9.8 L Hct 28.4 L MCV MCH MCHC Plt Count 39 L Lymph % (Auto) [place] % (Auto) Lymph # (Auto) [place] # (Auto) Seg Neutrophils % Seg Neuts % (Manual) 91.0 H Lymphocytes % (Manual) 2.0 L Monocytes % (Manual) Nucleated RBC % Seg Neutrophils # Seg Neutrophils # Man 12.9 H Abs Lymphs (Manual) Lymphocytes # (Manual) 0.3 L PT INR APTT D-Dimer Heparin Anti-Xa Level ABG pH POC ABG pCO2 POC ABG pO2 ABG Oxyhemoglobin ABG Sodium ABG Potassium ABG Glucose Carboxyhemoglobin Sodium Chloride Carbon Dioxide BUN Creatinine Glucose POC Glucose 138 H 171 H Calcium Phosphorus Ferritin Total Bilirubin AST ALT Alkaline Phosphatase Lactate Dehydrogenase Total Creatine Kinase Troponin T C-Reactive Protein NT-Pro-B Natriuret Pep Total Protein Albumin Cholesterol LDL Cholesterol Direct HDL Cholesterol PTH Intact Arterial Blood Glucose Urine WBC (Auto) Urine Creatinine Heparin-induced Plt Ab Lymph Enumerat CD4/CD8 Absolute CD3 Count Absolute CD4 Count % CD8 Cells Absolute CD8 Count Absolute CD19 Count Coronavirus (PCR) HIV-1 RNA PCR copies/ml HIV-1 RNA (PCR) log 09/23/20 09/23/20 09/23/20 04:36 05:41 11:38 WBC RBC Hgb Hct MCV MCH MCHC Plt Count Lymph % (Auto) [place] % (Auto) Lymph # (Auto) [place] # (Auto) Seg Neutrophils % Seg Neuts % (Manual) Lymphocytes % (Manual) Monocytes % (Manual) Nucleated RBC % Seg Neutrophils # Seg Neutrophils # Man Abs Lymphs (Manual) Lymphocytes # (Manual) PT INR APTT D-Dimer Heparin Anti-Xa Level ABG pH POC ABG pCO2 POC ABG pO2 ABG Oxyhemoglobin ABG Sodium ABG Potassium ABG Glucose Carboxyhemoglobin Sodium Chloride Carbon Dioxide BUN 76 H Creatinine 3.1 H Glucose 157 H POC Glucose 136 H 141 H Calcium Phosphorus Ferritin Total Bilirubin AST ALT Alkaline Phosphatase Lactate Dehydrogenase Total Creatine Kinase Troponin T C-Reactive Protein NT-Pro-B Natriuret Pep Total Protein Albumin Cholesterol LDL Cholesterol Direct HDL Cholesterol PTH Intact Arterial Blood Glucose Urine WBC (Auto) Urine Creatinine Heparin-induced Plt Ab Lymph Enumerat CD4/CD8 Absolute CD3 Count Absolute CD4 Count % CD8 Cells Absolute CD8 Count Absolute CD19 Count Coronavirus (PCR) HIV-1 RNA PCR copies/ml HIV-1 RNA (PCR) log 09/23/20 09/23/20 09/24/20 17:09 23:51 05:00 WBC 24.2 H RBC 3.23 L Hgb 10.0 L Hct 29.7 L MCV MCH MCHC Plt Count 74 L Lymph % (Auto) [place] % (Auto) Lymph # (Auto) [place] # (Auto) Seg Neutrophils % Seg Neuts % (Manual) Lymphocytes % (Manual) Monocytes % (Manual) Nucleated RBC % Seg Neutrophils # Seg Neutrophils # Man Abs Lymphs (Manual) Lymphocytes # (Manual) PT INR APTT D-Dimer Heparin Anti-Xa Level ABG pH POC ABG pCO2 POC ABG pO2 ABG Oxyhemoglobin ABG Sodium ABG Potassium ABG Glucose Carboxyhemoglobin Sodium Chloride Carbon Dioxide BUN Creatinine Glucose POC Glucose 128 H 128 H Calcium Phosphorus Ferritin Total Bilirubin AST ALT Alkaline Phosphatase Lactate Dehydrogenase Total Creatine Kinase Troponin T C-Reactive Protein NT-Pro-B Natriuret Pep Total Protein Albumin Cholesterol LDL Cholesterol Direct HDL Cholesterol PTH Intact Arterial Blood Glucose Urine WBC (Auto) Urine Creatinine Heparin-induced Plt Ab Lymph Enumerat CD4/CD8 Absolute CD3 Count Absolute CD4 Count % CD8 Cells Absolute CD8 Count Absolute CD19 Count Coronavirus (PCR) HIV-1 RNA PCR copies/ml HIV-1 RNA (PCR) log 09/24/20 09/24/20 09/24/20 05:00 05:00 05:00 WBC RBC Hgb Hct MCV MCH MCHC Plt Count Lymph % (Auto) [place] % (Auto) Lymph # (Auto) [place] # (Auto) Seg Neutrophils % Seg Neuts % (Manual) Lymphocytes % (Manual) Monocytes % (Manual) Nucleated RBC % Seg Neutrophils # Seg Neutrophils # Man Abs Lymphs (Manual) Lymphocytes # (Manual) PT INR APTT D-Dimer 1772.86 H Heparin Anti-Xa Level ABG pH POC ABG pCO2 POC ABG pO2 ABG Oxyhemoglobin ABG Sodium ABG Potassium ABG Glucose Carboxyhemoglobin Sodium Chloride 107.1 H Carbon Dioxide BUN 90 H Creatinine 3.1 H Glucose 118 H POC Glucose Calcium Phosphorus Ferritin 1190.0 H Total Bilirubin AST ALT Alkaline Phosphatase Lactate Dehydrogenase 276 H Total Creatine Kinase Troponin T C-Reactive Protein 4.20 H NT-Pro-B Natriuret Pep Total Protein Albumin Cholesterol LDL Cholesterol Direct HDL Cholesterol PTH Intact Arterial Blood Glucose Urine WBC (Auto) Urine Creatinine Heparin-induced Plt Ab Lymph Enumerat CD4/CD8 Absolute CD3 Count Absolute CD4 Count % CD8 Cells Absolute CD8 Count Absolute CD19 Count Coronavirus (PCR) HIV-1 RNA PCR copies/ml HIV-1 RNA (PCR) log 09/24/20 09/24/20 09/24/20 05:12 11:25 12:09 WBC RBC Hgb Hct MCV MCH MCHC Plt Count Lymph % (Auto) [place] % (Auto) Lymph # (Auto) [place] # (Auto) Seg Neutrophils % Seg Neuts % (Manual) Lymphocytes % (Manual) Monocytes % (Manual) Nucleated RBC % Seg Neutrophils # Seg Neutrophils # Man Abs Lymphs (Manual) Lymphocytes # (Manual) PT INR APTT D-Dimer Heparin Anti-Xa Level ABG pH POC ABG pCO2 POC ABG pO2 ABG Oxyhemoglobin ABG Sodium ABG Potassium ABG Glucose Carboxyhemoglobin Sodium Chloride Carbon Dioxide BUN Creatinine 3.1 H Glucose POC Glucose 114 H 110 H Calcium Phosphorus Ferritin Total Bilirubin AST ALT Alkaline Phosphatase Lactate Dehydrogenase Total Creatine Kinase Troponin T C-Reactive Protein NT-Pro-B Natriuret Pep Total Protein Albumin Cholesterol LDL Cholesterol Direct HDL Cholesterol PTH Intact Arterial Blood Glucose Urine WBC (Auto) Urine Creatinine Heparin-induced Plt Ab Lymph Enumerat CD4/CD8 Absolute CD3 Count Absolute CD4 Count % CD8 Cells Absolute CD8 Count Absolute CD19 Count Coronavirus (PCR) HIV-1 RNA PCR copies/ml HIV-1 RNA (PCR) log 09/24/20 09/24/20 09/24/20 12:13 12:13 17:41 WBC 20.8 H RBC 3.04 L Hgb 9.5 L Hct 28.0 L MCV MCH MCHC Plt Count 78 L Lymph % (Auto) [place] % (Auto) Lymph # (Auto) [place] # (Auto) Seg Neutrophils % Seg Neuts % (Manual) Lymphocytes % (Manual) Monocytes % (Manual) Nucleated RBC % Seg Neutrophils # Seg Neutrophils # Man Abs Lymphs (Manual) Lymphocytes # (Manual) PT 15.7 H INR 1.27 H APTT D-Dimer Heparin Anti-Xa Level ABG pH POC ABG pCO2 POC ABG pO2 ABG Oxyhemoglobin ABG Sodium ABG Potassium ABG Glucose Carboxyhemoglobin Sodium Chloride Carbon Dioxide BUN Creatinine Glucose POC Glucose 133 H Calcium Phosphorus Ferritin Total Bilirubin AST ALT Alkaline Phosphatase Lactate Dehydrogenase Total Creatine Kinase Troponin T C-Reactive Protein NT-Pro-B Natriuret Pep Total Protein Albumin Cholesterol LDL Cholesterol Direct HDL Cholesterol PTH Intact Arterial Blood Glucose Urine WBC (Auto) Urine Creatinine Heparin-induced Plt Ab Lymph Enumerat CD4/CD8 Absolute CD3 Count Absolute CD4 Count % CD8 Cells Absolute CD8 Count Absolute CD19 Count Coronavirus (PCR) HIV-1 RNA PCR copies/ml HIV-1 RNA (PCR) log 09/24/20 09/25/20 09/25/20 23:34 06:40 06:40 WBC RBC Hgb Hct MCV MCH MCHC Plt Count Lymph % (Auto) [place] % (Auto) Lymph # (Auto) [place] # (Auto) Seg Neutrophils % Seg Neuts % (Manual) Lymphocytes % (Manual) Monocytes % (Manual) Nucleated RBC % Seg Neutrophils # Seg Neutrophils # Man Abs Lymphs (Manual) Lymphocytes # (Manual) PT INR APTT D-Dimer Heparin Anti-Xa Level ABG pH POC ABG pCO2 POC ABG pO2 ABG Oxyhemoglobin ABG Sodium ABG Potassium ABG Glucose Carboxyhemoglobin Sodium Chloride 109.0 H Carbon Dioxide BUN 98 H Creatinine 3.0 H 3.0 H Glucose 111 H POC Glucose 113 H Calcium Phosphorus Ferritin Total Bilirubin AST ALT Alkaline Phosphatase Lactate Dehydrogenase Total Creatine Kinase Troponin T C-Reactive Protein NT-Pro-B Natriuret Pep Total Protein Albumin Cholesterol LDL Cholesterol Direct HDL Cholesterol PTH Intact Arterial Blood Glucose Urine WBC (Auto) Urine Creatinine Heparin-induced Plt Ab Lymph Enumerat CD4/CD8 Absolute CD3 Count Absolute CD4 Count % CD8 Cells Absolute CD8 Count Absolute CD19 Count Coronavirus (PCR) HIV-1 RNA PCR copies/ml HIV-1 RNA (PCR) log 09/25/20 09/25/20 09/25/20 10:45 12:45 18:03 WBC 20.7 H RBC 3.33 L Hgb 10.2 L Hct 31.3 L MCV MCH MCHC Plt Count 139 L Lymph % (Auto) [place] % (Auto) Lymph # (Auto) [place] # (Auto) Seg Neutrophils % Seg Neuts % (Manual) Lymphocytes % (Manual) Monocytes % (Manual) Nucleated RBC % Seg Neutrophils # Seg Neutrophils # Man Abs Lymphs (Manual) Lymphocytes # (Manual) PT INR APTT D-Dimer Heparin Anti-Xa Level ABG pH POC ABG pCO2 POC ABG pO2 ABG Oxyhemoglobin ABG Sodium ABG Potassium ABG Glucose Carboxyhemoglobin Sodium Chloride Carbon Dioxide BUN Creatinine Glucose POC Glucose 108 H 114 H Calcium Phosphorus Ferritin Total Bilirubin AST ALT Alkaline Phosphatase Lactate Dehydrogenase Total Creatine Kinase Troponin T C-Reactive Protein NT-Pro-B Natriuret Pep Total Protein Albumin Cholesterol LDL Cholesterol Direct HDL Cholesterol PTH Intact Arterial Blood Glucose Urine WBC (Auto) Urine Creatinine Heparin-induced Plt Ab Lymph Enumerat CD4/CD8 Absolute CD3 Count Absolute CD4 Count % CD8 Cells Absolute CD8 Count Absolute CD19 Count Coronavirus (PCR) HIV-1 RNA PCR copies/ml HIV-1 RNA (PCR) log 09/25/20 09/26/20 09/26/20 23:29 05:00 07:06 WBC 17.0 H RBC 3.10 L Hgb 9.6 L Hct 28.8 L MCV MCH MCHC Plt Count Lymph % (Auto) [place] % (Auto) Lymph # (Auto) [place] # (Auto) Seg Neutrophils % Seg Neuts % (Manual) Lymphocytes % (Manual) Monocytes % (Manual) Nucleated RBC % Seg Neutrophils # Seg Neutrophils # Man Abs Lymphs (Manual) Lymphocytes # (Manual) PT INR APTT D-Dimer Heparin Anti-Xa Level ABG pH POC ABG pCO2 POC ABG pO2 ABG Oxyhemoglobin ABG Sodium ABG Potassium ABG Glucose Carboxyhemoglobin Sodium Chloride Carbon Dioxide BUN Creatinine Glucose POC Glucose 111 H 115 H Calcium Phosphorus Ferritin Total Bilirubin AST ALT Alkaline Phosphatase Lactate Dehydrogenase Total Creatine Kinase Troponin T C-Reactive Protein NT-Pro-B Natriuret Pep Total Protein Albumin Cholesterol LDL Cholesterol Direct HDL Cholesterol PTH Intact Arterial Blood Glucose Urine WBC (Auto) Urine Creatinine Heparin-induced Plt Ab Lymph Enumerat CD4/CD8 Absolute CD3 Count Absolute CD4 Count % CD8 Cells Absolute CD8 Count Absolute CD19 Count Coronavirus (PCR) HIV-1 RNA PCR copies/ml HIV-1 RNA (PCR) log 09/26/20 09/26/20 09/27/20 07:06 17:26 04:00 WBC RBC Hgb Hct MCV MCH MCHC Plt Count Lymph % (Auto) [place] % (Auto) Lymph # (Auto) [place] # (Auto) Seg Neutrophils % Seg Neuts % (Manual) Lymphocytes % (Manual) Monocytes % (Manual) Nucleated RBC % Seg Neutrophils # Seg Neutrophils # Man Abs Lymphs (Manual) Lymphocytes # (Manual) PT INR APTT D-Dimer Heparin Anti-Xa Level ABG pH POC ABG pCO2 POC ABG pO2 ABG Oxyhemoglobin ABG Sodium ABG Potassium ABG Glucose Carboxyhemoglobin Sodium Chloride Carbon Dioxide BUN 69 H 67 H Creatinine 2.2 H 2.3 H Glucose 107 H 121 H POC Glucose 124 H Calcium Phosphorus Ferritin Total Bilirubin AST ALT Alkaline Phosphatase Lactate Dehydrogenase Total Creatine Kinase Troponin T C-Reactive Protein NT-Pro-B Natriuret Pep Total Protein Albumin Cholesterol LDL Cholesterol Direct HDL Cholesterol PTH Intact Arterial Blood Glucose Urine WBC (Auto) Urine Creatinine Heparin-induced Plt Ab Lymph Enumerat CD4/CD8 Absolute CD3 Count Absolute CD4 Count % CD8 Cells Absolute CD8 Count Absolute CD19 Count Coronavirus (PCR) HIV-1 RNA PCR copies/ml HIV-1 RNA (PCR) log 09/27/20 09/27/20 09/27/20 04:00 05:00 17:11 WBC 14.6 H RBC 2.72 L Hgb 8.6 L Hct 25.8 L MCV 95 H MCH MCHC Plt Count Lymph % (Auto) 4.3 L [place] % (Auto) Lymph # (Auto) 0.6 L [place] # (Auto) 0.9 H Seg Neutrophils % 89.6 H Seg Neuts % (Manual) Lymphocytes % (Manual) Monocytes % (Manual) Nucleated RBC % Seg Neutrophils # 13.1 H Seg Neutrophils # Man Abs Lymphs (Manual) Lymphocytes # (Manual) PT INR APTT D-Dimer Heparin Anti-Xa Level ABG pH POC ABG pCO2 POC ABG pO2 ABG Oxyhemoglobin ABG Sodium ABG Potassium ABG Glucose Carboxyhemoglobin Sodium Chloride Carbon Dioxide BUN Creatinine 2.4 H Glucose POC Glucose 132 H Calcium Phosphorus Ferritin Total Bilirubin AST ALT Alkaline Phosphatase Lactate Dehydrogenase Total Creatine Kinase Troponin T C-Reactive Protein NT-Pro-B Natriuret Pep Total Protein Albumin Cholesterol LDL Cholesterol Direct HDL Cholesterol PTH Intact Arterial Blood Glucose Urine WBC (Auto) Urine Creatinine Heparin-induced Plt Ab Lymph Enumerat CD4/CD8 Absolute CD3 Count Absolute CD4 Count % CD8 Cells Absolute CD8 Count Absolute CD19 Count Coronavirus (PCR) HIV-1 RNA PCR copies/ml HIV-1 RNA (PCR) log 09/28/20 09/28/20 09/29/20 04:46 04:46 04:45 WBC 14.6 H RBC 2.66 L Hgb 8.4 L Hct 25.3 L MCV 95 H MCH MCHC Plt Count Lymph % (Auto) [place] % (Auto) Lymph # (Auto) [place] # (Auto) Seg Neutrophils % Seg Neuts % (Manual) Lymphocytes % (Manual) Monocytes % (Manual) Nucleated RBC % Seg Neutrophils # Seg Neutrophils # Man Abs Lymphs (Manual) Lymphocytes # (Manual) PT INR APTT D-Dimer Heparin Anti-Xa Level ABG pH POC ABG pCO2 POC ABG pO2 ABG Oxyhemoglobin ABG Sodium ABG Potassium ABG Glucose Carboxyhemoglobin Sodium Chloride Carbon Dioxide BUN 71 H 63 H Creatinine 2.3 H 2.2 H Glucose 105 H POC Glucose Calcium Phosphorus Ferritin Total Bilirubin AST ALT Alkaline Phosphatase Lactate Dehydrogenase Total Creatine Kinase Troponin T C-Reactive Protein NT-Pro-B Natriuret Pep Total Protein Albumin Cholesterol LDL Cholesterol Direct HDL Cholesterol PTH Intact Arterial Blood Glucose Urine WBC (Auto) Urine Creatinine Heparin-induced Plt Ab Lymph Enumerat CD4/CD8 Absolute CD3 Count Absolute CD4 Count % CD8 Cells Absolute CD8 Count Absolute CD19 Count Coronavirus (PCR) HIV-1 RNA PCR copies/ml HIV-1 RNA (PCR) log 09/29/20 09/29/20 09/29/20 04:45 05:43 17:50 WBC RBC 2.92 L Hgb 9.6 L Hct 28.1 L MCV 96 H MCH 33 H MCHC Plt Count Lymph % (Auto) [place] % (Auto) Lymph # (Auto) [place] # (Auto) Seg Neutrophils % Seg Neuts % (Manual) Lymphocytes % (Manual) Monocytes % (Manual) Nucleated RBC % Seg Neutrophils # Seg Neutrophils # Man Abs Lymphs (Manual) Lymphocytes # (Manual) PT INR APTT D-Dimer Heparin Anti-Xa Level ABG pH POC ABG pCO2 POC ABG pO2 ABG Oxyhemoglobin ABG Sodium ABG Potassium ABG Glucose Carboxyhemoglobin Sodium Chloride Carbon Dioxide BUN Creatinine Glucose POC Glucose 69 L 132 H Calcium Phosphorus Ferritin Total Bilirubin AST ALT Alkaline Phosphatase Lactate Dehydrogenase Total Creatine Kinase Troponin T C-Reactive Protein NT-Pro-B Natriuret Pep Total Protein Albumin Cholesterol LDL Cholesterol Direct HDL Cholesterol PTH Intact Arterial Blood Glucose Urine WBC (Auto) Urine Creatinine Heparin-induced Plt Ab Lymph Enumerat CD4/CD8 Absolute CD3 Count Absolute CD4 Count % CD8 Cells Absolute CD8 Count Absolute CD19 Count Coronavirus (PCR) HIV-1 RNA PCR copies/ml HIV-1 RNA (PCR) log 09/30/20 09/30/20 10/01/20 04:47 04:47 07:16 WBC RBC 2.47 L Hgb 8.1 L Hct 23.9 L MCV 97 H MCH 33 H MCHC Plt Count Lymph % (Auto) [place] % (Auto) Lymph # (Auto) [place] # (Auto) Seg Neutrophils % Seg Neuts % (Manual) Lymphocytes % (Manual) Monocytes % (Manual) Nucleated RBC % Seg Neutrophils # Seg Neutrophils # Man Abs Lymphs (Manual) Lymphocytes # (Manual) PT INR APTT D-Dimer Heparin Anti-Xa Level ABG pH POC ABG pCO2 POC ABG pO2 ABG Oxyhemoglobin ABG Sodium ABG Potassium ABG Glucose Carboxyhemoglobin Sodium Chloride Carbon Dioxide 31 H BUN 63 H 58 H Creatinine 2.1 H 2.2 H Glucose POC Glucose Calcium Phosphorus Ferritin Total Bilirubin AST ALT Alkaline Phosphatase Lactate Dehydrogenase Total Creatine Kinase Troponin T C-Reactive Protein NT-Pro-B Natriuret Pep Total Protein 5.9 L Albumin 2.2 L Cholesterol LDL Cholesterol Direct HDL Cholesterol PTH Intact Arterial Blood Glucose Urine WBC (Auto) Urine Creatinine Heparin-induced Plt Ab Lymph Enumerat CD4/CD8 Absolute CD3 Count Absolute CD4 Count % CD8 Cells Absolute CD8 Count Absolute CD19 Count Coronavirus (PCR) HIV-1 RNA PCR copies/ml HIV-1 RNA (PCR) log Allied health notes reviewed: nursing
--- NOTE | 2020-10-02 14:20 | XRay Report ---
BILATERAL HIP 3 VIEW(S) INDICATION / CLINICAL INFORMATION: fall COMPARISON: Prior CT abdomen and pelvis 09/27/2020 FINDINGS: BONES / JOINT(S): No acute fracture or subluxation. 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 Moderate left hip arthrosis. DJD of bilateral SI joints. Moderate lumbar spondylosis. SOFT TISSUES: No significant abnormality. ADDITIONAL FINDINGS: None. Signer Name: Rusty Painter MD Signed: 10/02/2020 2:16 PM Workstation Name: [id number]
--- NOTE | 2020-10-02 14:59 | Progress Note ---
Assessment and Plan 1. Acute kidney injury: Vasomotor LOLI in the setting of shock. ATN likely. Renal US negative for hydro. Multiple bladder scan negative. Patient require hemodialysis due to significant decline in the renal function. Hemodialysis: 09/20, 09/21, 09/25. Monitor renal function. Creatinine leveled off. Renal prognosis is guarded. Avoid nephrotoxic agents. Meds dosage based on GFR. 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 2. FEN: Metabolic acidosis, improved, monitor. Monitor volume status and lytes. 3. Acute hypoxic respiratory failure: Covid test positive. Supplemental O2. 4. Acute CHF: Echocardiogram: EF 40-45%. CHF orderset / pathway. Monitor. 5. Atrial fibrillation with RVR: On Amio and Metoprolol. Followed by Cards. 6. Elevated troponin: Followed by Cards. 7. Coagulopathy: Trend. 8. Shock / Hypotension: Multifactorial, monitor. Off pressors. 9. Elevated Transaminases: Improving. 10. Metabolic encephalopathy: Monitor. 11. HIV. 12. Anemia, POA: Monitor. Subjective: Patient was seen and examined at the bedside. Objective: General appearance: well-developed, appears stated age, not in distress HEENT: ATNC, L pupil dilated Neck: trachea midline Respiratory: bilateral diminished breath sounds Heart: S1S2, irregular, no murmur Abdomen: soft, normoactive bowel sounds, not tender Integumentary: no obvious rash Ext: no edema Neurologic: lethargic, non-verbal, not following any command Hemodialysis access: none Subjective Date of service: 10/02/20 Principal diagnosis: Acute Hypoxemic Resp Failure; COVID-19 infxn; Septic Shock; A-Fib with RVR Objective - Vital Signs Vital signs: Vital Signs - 12hr 10/02/20 10/02/20 10/02/20 04:09 08:53 09:21 Temperature 97.9 F 97.5 F L Pulse Rate Respiratory 16 20 Rate Blood Pressure 117/82 87/60 Blood Pressure [Right] O2 Sat by Pulse 97 Oximetry 10/02/20 10/02/20 10/02/20 09:25 11:05 13:06 Temperature 97.9 F Pulse Rate 98 H Respiratory 20 20 Rate Blood Pressure 87/60 Blood Pressure 97/60 [Right] O2 Sat by Pulse Oximetry 10/02/20 13:29 Temperature 97.8 F Pulse Rate 101 H Respiratory Rate Blood Pressure Blood Pressure 99/54 [Right] O2 Sat by Pulse Oximetry - Lab 09/30/20 04:47 10/02/20 05:10 Most recent lab results ABG pH 7.508 (7.320-7.450) H 09/17/20 10:28 ABG O2 Saturation 93.4 (0-100) 09/17/20 10:28 Calcium 8.7 mg/dL (8.4-10.2) 10/02/20 05:10 Phosphorus 2.90 mg/dL (2.5-4.5) 09/26/20 07:06 Magnesium 1.70 mg/dL (1.7-2.3) 09/26/20 07:06 Urine Creatinine 61.0 mg/dL (0.1-20.0) H 09/18/20 12:00 Urine Sodium 62 mmol/L 09/18/20 12:00 Medications & Allergies - Medications Allergies/Adverse Reactions: Allergies heparin Adverse Reaction (Verified 09/29/20 16:33) thrombocytopenia PF4 Home Medications: Home Medications Medication Instructions Recorded Confirmed Last Taken Type AtorvaSTATin [Lipitor] 20 mg PO QHS 09/18/20 09/18/20 Unknown History Dolutegravir [Tivicay] 50 mg PO DAILY 09/18/20 09/18/20 Unknown History Emtricitabine/Tenofov Alafenam 1 tab PO DAILY 09/18/20 09/18/20 Unknown History [Descovy 200-25 mg (Nf)] allopurinoL [Zyloprim] 300 mg PO QDAY 09/18/20 09/18/20 Unknown History Amiodarone [Cordarone 200 MG TAB] 200 mg PO DAILY #60 tablet 10/01/20 Unknown Rx Apixaban [Eliquis] 2.5 mg PO Q12HR #60 tablet 10/01/20 Unknown Rx Ascorbic Acid [Vitamin C] 500 mg PO BID #60 tablet 10/01/20 Unknown Rx Cholecalciferol Vit D3 [Vitamin D3 1,000 unit PO QDAY #30 tablet 10/01/20 Unknown Rx 1,000 UNIT TAB] Famotidine [Pepcid] 20 mg PO DAILY #30 tablet 10/01/20 Unknown Rx Midodrine [Proamatine] 5 mg PO TID@0800,1200,1600 #90 10/01/20 Unknown Rx tablet QUEtiapine [SEROquel] 25 mg PO BID #30 tablet 10/01/20 Unknown Rx Zinc Sulfate 220 mg PO QDAY #30 capsule 10/01/20 Unknown Rx carvediloL [Coreg] 3.125 mg PO BID #60 tablet 10/01/20 Unknown Rx haloperidoL [Haldol] 2 mg PO Q8H PRN #30 tablet 10/01/20 Unknown Rx Active Medications: Generic Name Dose Route Start Last Admin Trade Name Freq PRN Reason Stop Dose Admin Acetaminophen 650 mg 09/17/20 13:52 09/30/20 21:12 Acetaminophen 325 Mg Tab PO 650 mg Q4H PRN Administration Pain MILD(1-3)/Fever >100.5/ANGEL Albuterol 2.5 mg 09/17/20 13:52 09/17/20 20:47 Albuterol 2.5 Mg/3 Ml Nebu IH 2.5 mg Q4HRT PRN Administration Shortness Of Breath Amiodarone HCl 200 mg 10/01/20 22:00 10/02/20 09:26 Amiodarone 200 Mg Tab PO Not Given BID EDIE Lipase/Protease/Amylase 1 each 09/20/20 13:10 Lipase 10,500/Protease 25,000/Amylase 43,750 (Units) Dr Patrick FEEDTUBE PRN PRN For Clogged Feeding Tube Apixaban 2.5 mg 09/24/20 12:00 10/02/20 09:25 Apixaban 2.5 Mg Tab PO 2.5 mg Q12HR EDIE Administration Protocol Ascorbic Acid 500 mg 09/20/20 22:00 10/02/20 09:25 Ascorbic Acid 500 Mg Tab PO 500 mg BID EDIE Administration Cholecalciferol 1,000 unit 09/21/20 10:00 10/02/20 09:24 Cholecalciferol (Vit D3) 1000 Unit (25 Mcg) Tab PO 1,000 unit QDAY EDIE Administration Emtricitabine 200 mg 09/30/20 11:00 10/02/20 11:45 Emtricitabine 200 Mg Cap PO 200 mg Q48H EDIE Administration Famotidine 20 mg 09/24/20 10:00 10/02/20 09:25 Famotidine 20 Mg Tab PO 20 mg DAILY EDIE Administration Haloperidol Lactate 5 mg 10/01/20 11:34 Haloperidol Lactate 5 Mg/1 Ml Inj IM Q6H PRN Agitation Heparin Sodium (Porcine) 3,000 unit 09/20/20 10:06 Heparin 10,000 Units/10 Ml Vial IV VIRGIL PRN hemodialysis Sodium Chloride 100 mls @ 999 mls/hr 09/20/20 10:06 Nacl 0.9% IV VIRGIL PRN Hypotension Valproate Sodium 500 mg/ 105 mls @ 100 mls/hr 10/01/20 12:30 10/02/20 09:26 Sodium Chloride IV 100 mls/hr Q12HR EDIE Administration Metoprolol Tartrate 5 mg 09/19/20 19:06 09/24/20 10:59 Metoprolol Tartrate 5 Mg/5 Ml Inj IV 5 mg Q8HR PRN Administration HR > 135 Minute Metoprolol Tartrate 25 mg 10/01/20 22:00 10/02/20 09:25 Metoprolol Tartrate 25 Mg Tab PO Not Given BID EDIE Midodrine 5 mg 09/22/20 12:00 10/02/20 13:22 Midodrine 5 Mg Tab PO 5 mg TID@0800,1200,1600 EDIE Administration Ondansetron HCl 4 mg 09/17/20 13:52 Ondansetron 4 Mg/2 Ml Inj IV Q8H PRN Nausea And Vomiting Quetiapine Fumarate 12.5 mg 10/03/20 10:00 Quetiapine 25 Mg Tab PO QAM EDIE Quetiapine Fumarate 25 mg 10/02/20 22:00 Quetiapine 25 Mg Tab PO QHS EDIE Simple Syrup 15 ml 09/20/20 13:10 Simple Syrup 15 Ml FEEDTUBE PRN PRN Hypoglycemia Simple Syrup 30 ml 09/20/20 13:10 Simple Syrup 15 Ml FEEDTUBE PRN PRN Hypoglycemia Sodium Bicarbonate 325 mg 09/20/20 13:10 Sodium Bicarbonate 325 Mg Tab FEEDTUBE PRN PRN For Clogged Feeding Tube Sodium Chloride 10 ml 09/17/20 22:00 10/02/20 09:24 Sodium Chloride 0.9% 10 Ml Flush Syringe IV 10 ml BID EDIE Administration Sodium Chloride 10 ml 09/17/20 13:52 09/24/20 09:15 Sodium Chloride 0.9% 10 Ml Flush Syringe IV 10 ml PRN PRN Administration LINE FLUSH Tenofovir Disoproxil Fumarate 300 mg 09/30/20 11:00 10/02/20 11:45 Tenofovir 300 Mg Tab PO 300 mg Q48H EDIE Administration Zinc Sulfate 220 mg 09/21/20 10:00 10/02/20 09:24 Zinc Sulfate 220 Mg Cap PO 220 mg QDAY EDIE Administration
[2020-10-02] MEDS: HALOPERIDOL LACTATE 5 MG/1 ML INJ IM PRN (17:04)
[2020-10-02] MEDS ORDERED: QUEtiapine 25 MG TAB PO SCH (22:00)
[2020-10-03] MEDS: QUEtiapine 25 MG TAB PO SCH ×3 (08:27→23:08)
[2020-10-03] MEDS: MIDODRINE 5 MG TAB PO SCH ×3 (08:27→16:26)
[2020-10-03] MEDS: CHOLECALCIFEROL (VIT D3) 1000 UNIT (25 mcg) TAB PO SCH ×2 (08:27→16:25)
[2020-10-03] MEDS: ASCORBIC ACID 500 MG TAB PO SCH ×3 (08:28→23:07)
[2020-10-03] MEDS: APIXABAN 2.5 MG TAB PO SCH ×3 (08:28→23:07)
[2020-10-03] MEDS: FAMOTIDINE 20 MG TAB PO SCH ×2 (08:35→16:23)
[2020-10-03] MEDS ORDERED: SODIUM POLYSTYRENE 15 GM/60 ML ORAL LIQD PO ONE (08:44)
--- NOTE | 2020-10-03 08:47 | Progress Note ---
Assessment and Plan 1. Acute kidney injury: Vasomotor LOLI in the setting of shock. ATN likely. Renal US negative for hydro. Multiple bladder scan negative. Patient require hemodialysis due to significant decline in the renal function. Hemodialysis: 09/20, 09/21, 09/25. Monitor renal function. Slight increase in the Creatinine level noted. Renal prognosis is guarded. Avoid nephrotoxic agents. Meds dosage based on GFR. Monitor for ORDER TAKER needs. 2. FEN: Hyperkalemia, Kayexalate ordered. Metabolic acidosis, improved, monitor. Monitor volume status and lytes. 3. Acute hypoxic respiratory failure: Covid test positive. Supplemental O2. 4. Acute CHF: Echocardiogram: EF 40-45%. CHF orderset / pathway. Monitor. 5. Atrial fibrillation with RVR: On Amio and Metoprolol. Followed by Cards. 6. Elevated troponin: Followed by Cards. 7. Coagulopathy: Trend. 8. Shock / Hypotension: Multifactorial, monitor. Off pressors. 9. Elevated Transaminases: Improving. 10. Metabolic encephalopathy: Monitor. 11. HIV. 12. Anemia, POA: Monitor. Subjective: Patient was seen and examined at the bedside. Objective: General appearance: well-developed, appears stated age, not in distress HEENT: ATNC, L pupil dilated Neck: trachea midline Respiratory: bilateral diminished breath sounds Heart: S1S2, irregular, no murmur Abdomen: soft, normoactive bowel sounds, not tender Integumentary: no obvious rash Ext: no edema Neurologic: lethargic, non-verbal, not following any command Subjective Date of service: 10/03/20 Principal diagnosis: Acute Hypoxemic Resp Failure; COVID-19 infxn; Septic Shock; A-Fib with RVR Objective - Vital Signs Vital signs: Vital Signs - 12hr 10/02/20 10/03/20 22:37 04:45 Temperature 98.0 F 98.0 F Pulse Rate 114 H Respiratory 18 18 Rate Blood Pressure 137/80 90/70 O2 Sat by Pulse 96 Oximetry - Lab 10/04/20 18:19 10/04/20 18:19 Most recent lab results ABG pH 7.508 (7.320-7.450) H 09/17/20 10:28 ABG O2 Saturation 93.4 (0-100) 09/17/20 10:28 Calcium 8.0 mg/dL (8.4-10.2) L 10/03/20 08:12 Phosphorus 2.90 mg/dL (2.5-4.5) 09/26/20 07:06 Magnesium 1.70 mg/dL (1.7-2.3) 09/26/20 07:06 Urine Creatinine 61.0 mg/dL (0.1-20.0) H 09/18/20 12:00 Urine Sodium 62 mmol/L 09/18/20 12:00 Medications & Allergies - Medications Allergies/Adverse Reactions: Allergies heparin Adverse Reaction (Verified 09/29/20 16:33) thrombocytopenia PF4 Home Medications: Home Medications Medication Instructions Recorded Confirmed Last Taken Type AtorvaSTATin [Lipitor] 20 mg PO QHS 09/18/20 09/18/20 Unknown History Dolutegravir [Tivicay] 50 mg PO DAILY 09/18/20 09/18/20 Unknown History Emtricitabine/Tenofov Alafenam 1 tab PO DAILY 09/18/20 09/18/20 Unknown History [Descovy 200-25 mg (Nf)] allopurinoL [Zyloprim] 300 mg PO QDAY 09/18/20 09/18/20 Unknown History Amiodarone [Cordarone 200 MG TAB] 200 mg PO DAILY #60 tablet 10/01/20 Unknown Rx Apixaban [Eliquis] 2.5 mg PO Q12HR #60 tablet 10/01/20 Unknown Rx Ascorbic Acid [Vitamin C] 500 mg PO BID #60 tablet 10/01/20 Unknown Rx Cholecalciferol Vit D3 [Vitamin D3 1,000 unit PO QDAY #30 tablet 10/01/20 Unknown Rx 1,000 UNIT TAB] Famotidine [Pepcid] 20 mg PO DAILY #30 tablet 10/01/20 Unknown Rx Midodrine [Proamatine] 5 mg PO TID@0800,1200,1600 #90 10/01/20 Unknown Rx tablet QUEtiapine [SEROquel] 25 mg PO BID #30 tablet 10/01/20 Unknown Rx Zinc Sulfate 220 mg PO QDAY #30 capsule 10/01/20 Unknown Rx carvediloL [Coreg] 3.125 mg PO BID #60 tablet 10/01/20 Unknown Rx haloperidoL [Haldol] 2 mg PO Q8H PRN #30 tablet 10/01/20 Unknown Rx Active Medications: Generic Name Dose Route Start Last Admin Trade Name Freq PRN Reason Stop Dose Admin Acetaminophen 650 mg 09/17/20 13:52 09/30/20 21:12 Acetaminophen 325 Mg Tab PO 650 mg Q4H PRN Administration Pain MILD(1-3)/Fever >100.5/ANGEL Albuterol 2.5 mg 09/17/20 13:52 09/17/20 20:47 Albuterol 2.5 Mg/3 Ml Nebu IH 2.5 mg Q4HRT PRN Administration Shortness Of Breath Amiodarone HCl 200 mg 10/01/20 22:00 10/02/20 22:52 Amiodarone 200 Mg Tab PO 200 mg BID EDIE Administration Lipase/Protease/Amylase 1 each 09/20/20 13:10 Lipase 10,500/Protease 25,000/Amylase 43,750 (Units) Dr Cap FEEDTUBE PRN PRN For Clogged Feeding Tube Apixaban 2.5 mg 09/24/20 12:00 10/03/20 08:28 Apixaban 2.5 Mg Tab PO 2.5 mg Q12HR EDIE Administration Protocol Ascorbic Acid 500 mg 09/20/20 22:00 10/03/20 08:28 Ascorbic Acid 500 Mg Tab PO 500 mg BID EDIE Administration Cholecalciferol 1,000 unit 09/21/20 10:00 10/03/20 08:27 Cholecalciferol (Vit D3) 1000 Unit (25 Mcg) Tab PO 1,000 unit QDAY EDIE Administration Emtricitabine 200 mg 09/30/20 11:00 10/02/20 11:45 Emtricitabine 200 Mg Cap PO 200 mg Q48H EDIE Administration Famotidine 20 mg 09/24/20 10:00 10/03/20 08:35 Famotidine 20 Mg Tab PO 20 mg DAILY EDIE Administration Haloperidol Lactate 5 mg 10/01/20 11:34 10/02/20 17:04 Haloperidol Lactate 5 Mg/1 Ml Inj IM 5 mg Q6H PRN Administration Agitation Heparin Sodium (Porcine) 3,000 unit 09/20/20 10:06 Heparin 10,000 Units/10 Ml Vial IV VIRGIL PRN hemodialysis Sodium Chloride 100 mls @ 999 mls/hr 09/20/20 10:06 Nacl 0.9% IV VIRGIL PRN Hypotension Valproate Sodium 500 mg/ 105 mls @ 100 mls/hr 10/01/20 12:30 10/02/20 22:56 Sodium Chloride IV 100 mls/hr Q12HR EDIE Administration Metoprolol Tartrate 5 mg 09/19/20 19:06 09/24/20 10:59 Metoprolol Tartrate 5 Mg/5 Ml Inj IV 5 mg Q8HR PRN Administration HR > 135 Minute Metoprolol Tartrate 12.5 mg 10/02/20 20:00 10/02/20 22:52 Metoprolol Tartrate 25 Mg Tab PO 12.5 mg BID EDIE Administration Midodrine 5 mg 09/22/20 12:00 10/03/20 08:27 Midodrine 5 Mg Tab PO 5 mg TID@0800,1200,1600 EDIE Administration Ondansetron HCl 4 mg 09/17/20 13:52 Ondansetron 4 Mg/2 Ml Inj IV Q8H PRN Nausea And Vomiting Quetiapine Fumarate 12.5 mg 10/03/20 10:00 10/03/20 08:27 Quetiapine 25 Mg Tab PO 12.5 mg QAM EDIE Administration Quetiapine Fumarate 25 mg 10/02/20 22:00 10/02/20 22:57 Quetiapine 25 Mg Tab PO 25 mg QHS EDIE Administration Simple Syrup 15 ml 09/20/20 13:10 Simple Syrup 15 Ml FEEDTUBE PRN PRN Hypoglycemia Simple Syrup 30 ml 09/20/20 13:10 Simple Syrup 15 Ml FEEDTUBE PRN PRN Hypoglycemia Sodium Bicarbonate 325 mg 09/20/20 13:10 Sodium Bicarbonate 325 Mg Tab FEEDTUBE PRN PRN For Clogged Feeding Tube Sodium Chloride 10 ml 09/17/20 22:00 10/03/20 08:30 Sodium Chloride 0.9% 10 Ml Flush Syringe IV 10 ml BID EDIE Administration Sodium Chloride 10 ml 09/17/20 13:52 09/24/20 09:15 Sodium Chloride 0.9% 10 Ml Flush Syringe IV 10 ml PRN PRN Administration LINE FLUSH Tenofovir Disoproxil Fumarate 300 mg 09/30/20 11:00 10/02/20 11:45 Tenofovir 300 Mg Tab PO 300 mg Q48H EDIE Administration Zinc Sulfate 220 mg 09/21/20 10:00 10/02/20 09:24 Zinc Sulfate 220 Mg Cap PO 220 mg QDAY EDIE Administration
--- NOTE | 2020-10-03 09:18 | Progress Note ---
Assessment and Plan Continue PO Amio 200mg BID for now. Will decrease Lopressor to 12.5mg BID given borderline low BP. F/u CBC in AM. Pt seen in conjunction with Dr. Avila, who agrees with the assessment and plan of care. - Patient Problems (1) COVID-19 Current Visit: Yes Status: Acute (2) AMS (altered mental status) Current Visit: Yes Status: Acute Qualifiers: Altered mental status type: somnolence Qualified Code(s): R40.0 - Somnolence (3) Acute respiratory failure Current Visit: Yes Status: Acute (4) Sepsis Current Visit: Yes Status: Acute Qualifiers: Severe sepsis shock status: with septic shock (5) UTI (urinary tract infection) Current Visit: Yes Status: Acute (6) LOLI (acute kidney injury) Current Visit: Yes Status: Acute (7) Acute HFrEF (heart failure with reduced ejection fraction) Current Visit: Yes Status: Resolved (8) Cardiomyopathy Current Visit: Yes Status: Chronic (9) Atrial fibrillation with RVR Current Visit: Yes Status: Acute (10) Anemia Current Visit: Yes Status: Acute (11) H/O: HTN (hypertension) Current Visit: Yes Status: Chronic (12) HIV (human immunodeficiency virus infection) Current Visit: Yes Status: Chronic Subjective Date of service: 10/02/20 Principal diagnosis: Sepsis/UTI, COVID-19+, AF with RVR Interval history: Agitated upon assessment. Tele reviewed - AF 110s. Objective Last Vital Signs Temp 97.8 F 10/02/20 13:29 Pulse 101 H 10/02/20 13:29 Resp 20 10/02/20 13:06 BP 99/54 10/02/20 13:29 Pulse Ox 97 10/02/20 08:53 - Physical Examination General: No Apparent Distress, Other (agitated) HEENT: Positive: Normocephaly, Mucus Membranes Moist Neck: Positive: neck supple. Negative: JVD/HJR Cardiac: Positive: irregularly irregular, S1/S2 Lungs: Positive: Decreased Breath Sounds Neuro: Positive: Grossly Intact Abdomen: Positive: Soft Skin: Negative: Rash Musculoskeletal: No Fluid Collection Extremities: Present: upper extr. pulses, lower extr. pulses. Absent: edema - Labs and Meds Comprehensive Metabolic Panel 10/02/20 Range/Units 05:10 Sodium 140 (137-145) mmol/L Potassium 4.0 (3.6-5.0) mmol/L Chloride 105.9 (98-107) mmol/L Carbon Dioxide 29 (22-30) mmol/L BUN 48 H (9-20) mg/dL Creatinine 2.0 H (0.8-1.3) mg/dL Glucose 78 (75-100) mg/dL Calcium 8.7 (8.4-10.2) mg/dL - Imaging and Cardiology EKG: report reviewed, image reviewed Echo: report reviewed (09/18/2020 - EF 40-45%, mild concentric LVH, RV sys fxn mildly reduced, no significant valvular abnormality) - Telemetry EKG Rhythm: Atrial Fibrillation - EKG Supraventricular dysrhythmia: atrial fibrillation Myocardial infarction: septal PR (old age or ind, anterior PR (old age or i - Allied health notes Allied health notes reviewed: nursing
[2020-10-03] MEDS: AMIODARONE 200 MG TAB PO SCH ×2 (09:21→23:08)
--- NOTE | 2020-10-03 09:34 | Progress Note ---
Assessment and Plan Assessment and plan: This is 70-year-old male with HIV, HTN, and atrial fibrillation (currently on therapeutic anticoagulation with Xarelto) presents the emergency department on 09/17 with complaints of shortness of breath over the past 3 days and on arrival of EMS patient was found to have a pulse oximetry of 85% on room air. He was placed on supplemental oxygenation. Of note patient was admitted on 09/15 with similar complaints and found to have A. fib with RVR, hyponatremia, hypomagnesemia and acute kidney injury and left AMA. He was admitted to the hospital service with atrial fibrillation with RVR, SIRs, metabolic acidosis, acute kidney injury, acute hypoxic respiratory failure, hypotension, and CHF . Cardiology, CCM and nephrology were consulted. 09/18/2020. Await echocardiogram to assess for diastolic versus systolic etiology. Patient with elevated BNP greater than 18,000. Patient apparently was admitted approximately 3 days ago but left AMA. Cardiology consulted for heart failure, A. fib with RVR and elevated troponin. Patient denies chest pain. Also, patient with elevated creatinine of 4.7 with creatinine 2.8 on recent admission. We do not have a previous creatinine as a baseline to compar e. Nephrology consultation pending. Follow-up renal ultrasound. Patient with coagulopathy and INR 3.04. Unsure if patient was on anticoagulation for A. fib. 09/19/2020. Patient likely with vasomotor acute kidney injury in the setting of shock. Follow-up urine studies and renal ultrasound. Creatinine continues to worsen. Nephrology following. Etiology of respiratory failure secondary to hea rt failure with Covid testing pending. Elevated troponin suggestive of NSTEMI. Continue diuresis with Lasix. Continue IV amiodarone for rate control of A. fib with RVR. Continue heparin. Follow-up echocardiogram. Cardiology following. 09/20/2020: This time my examination patient was on BiPAP therapy and now is on nasal cannula. Patient remains on amiodarone drip with heart rate in the 130s t o 140s and vasopressor support with Levophed. Today nephrology will initiate hemodialysis given worsening renal function studies and has stopped diuresis with Lasix. ID resumed antiretroviral therapy and ordered a HIDA scan. Today the patient received a temporary Vas-Cath and is COVID-19 PCR resulted as positive. Patient will be started on vitamin C, vitamin D and zinc and dexamethasone given need for supplemental oxygenation. 09/21: Ecoli UTI and bacteremia and ID has changed him to meropenem, Patient received HD yesterday and patient remains on amiodarone drip. He is off the floor to obtain a HIDA scan. 09/22: HIDA scan did not show acute cholecystitis. Ecoli bacteremia is sensitive to ceftriaxone and ID changed his abx. Mentation is better. BP is liable. Remains on levophed and vasopressin. We started midodrine. HIT panel pending and hem/onc consulted. 09/23: Patient noted to have unequal pupils with left >right, STAT CT head ordered. Nephro will withhold hemodialysis and assess needs as kidney function has gotten better. Patient symptomatically follows commands and is on nasal cannula. Cardiology stopped his Eliquis due to persistent thrombocytopenia. 09/24: Patient remains confused, pupils still unequal. Started on eliquis 2.5 today and he will be transferred to IMCU. 09/25: Patient remains confused, had Bipap overnight, CT abd/pelvis ordered per ID recommendations given persistent leukocytosis. Cr remains unchanged but BUN in rising. Nephrology is on the case. 09/26/2020; patient was confused and on 3 L of oxygen. ID is following the patient and continue with antiretroviral medications, no OI prophylaxis needed. Patient is on IV Rocephin lasted 09/28 per ID recommendation for E. coli bacteremia. ID ordered CT abdomen and pelvis. We will follow the results. Sulaiman wild is being followed by cardiology and they recommend to resume Eliquis with 2.5 mg p.o. twice daily, thrombocytopenia is improving. Patient is on amiodarone and metoprolol. Patient is being followed by nephrology and is on dialysis. Blood pressure was normal this morning. Patient was tachycardic in A. fib with RVR. CT head was normal. Prognosis is guarded. Continue IMCU care. 09/27: Continue IMCU care, still with unresolved Afib, will continue to adjust medications for better control. 09/28: Start Seroquel DUE TO THE AGITATION, Discussed with daughter, will work on getting Afib better controlled. Per daughter the confusion is new, although some improvement noted today. Patient will benefit from SNF 09/29: Seroquel started today as it was not started yesterday, await PT/OT, Yasmin veronica to monitor mental status, will transfer to Tele. Anticipate discharge when bed available. 09/30: Discussed extensively with the daughter about her clinical condition, Seroquel discontinued as patient did not tolerate, still with low BP responded to Fluids. Hold BB and continue to monitor and redirect. Discussed with Nursing staff. 10/01: Patient seen and examined resting comfortably still with intermittent delirium. Blood pressure has improved although beta-ruddy was held midodrine was given. Will change to Coreg 3.125 with holding parameters on discharge. Per cardiology amiodarone changed to 200 mg daily. Neurology evaluation is still pending. I have initiated placement to a SNF facility and once approved patient can be discharged. Daughter has been updated on medical condition. For now on anticoagulation left in place although outpatient this may be discontinued due to patient's mental status if there is no improvement. 10/02: Neurology evaluated the patient for increased agitation and aggressive behavior and confusion. Exam suggestive of delirium stopped. Due to not tolerating Seroquel, now Geodon trial Haldol however recommended also valproic acid. No overnight issues reported. Continue awaiting SNF placement for continued rehab. Blood pressure has remained stable no further fever recorded. Monitor for any recurrence of the pain in the leg. 10/03: I have asked for a sitter a few days ago unfortunately not as available as a result restraints have been used and reassurances. Will decrease Seroquel to 12.5 twice daily as patient did not tolerate the 25 mg. Continue supportive care blood pressure meds held due to hypotension. Delirium still present delirium preventive methods including keeping the lights on through the night windows shades up discussed with nursing staff. Also discussed with neurologist. Septic Shock Acute hypoxemic respiratory failure 2/2 to volume overload/chf exacerbation Acute systolic heart failure exacerbation Atrial fibrillation with RVR Acute on chronic kidney injury Hypotension Anemia Thrombocytopenia E coli bacteremia Delirium related to critical illness. E. coli urinary tract infection NSTEMI Elevated Ddimer Leukocytosis HIV, asymptomatic HTN Coagulopathy Transaminitis -Cardiology, CCM, Nephrology, ID, general surgery, heme/onc consulted, appreciate recommendations -09/20 COVID-19 PCR positive -Droplet/isolation precautions -Dexamethasone 6 mg p.o. (09/20-09/30) -Vitamin D, vitamin C, zinc -Vasopressor support with levophed and vasopressin, midodrine -09/17 CXR shows borderline heart size, mild central pulmonary venous congestion -09/17 renal ultrasound shows no acute findings -09/18 echocardiogram shows left ventricle systolic function mildly decreased, LVEF of 40 to 45% with mild concentric left ventricle hypertrophy, trace MR, mild TR, trace AR -09/19 abdominal ultrasound shows large gallstone within the gallbladder, no pericholecystic fluid, gallbladder wall upper limits of normal measuring 3 mm -09/21 HIDA scan shows no evidence of acute cholecystitis -09/21 BLE Dopplar US no evidence for DVT -09/23 CT head shows no acute intracranial hemorrhage or parenchymal abnormality, mild diffuse brain atrophy with commensurate ventricular enlargement which is likely age appropriate, small frontal scalp lipoma measuring 9 mm in thickness, 4 cm in length, and 4 cm in width., Sinuses and mastoid air cells are clear. -09/17 proBNP 59613 -S/p IV Lasix twice daily -09/20 nephrology initiated the patient on dialysis -Pulmonary hygiene -Bipap qhs -09/25 CT abd/pelvis without contrast pending -PO amiodarone -HIV meds per ID -IV abx therapy -HIT pending -Trend CBC, BMP, LFTs DVT/GI prophylaxis: PPI, SCDs to bilateral lower extremities while in bed, no chemical anticoagulation at this time d/t thrombocytopenia Disposition: IMCU History Interval history: This is 70-year-old male with HIV, HTN, and atrial fibrillation (currently on therapeutic anticoagulation with Xarelto) admitted with atrial fibrillation with RVR, SIRs, metabolic acidosis, acute kidney injury, acute hypoxic respiratory failure, hypotension, and CHF Patient seen and examined, still very emotional. Imaging studies reviewed no acute pathology noted from the fall yesterday. On restraints for safety Hospitalist Physical - Physical exam Narrative exam: Resting comfortably although intermittently delirious and agitated The patient appeared well nourished and normally developed. Vital signs as documented. Head exam is unremarkable. No scleral icterus . Neck is without jugular venous distension, thyromegaly, or carotid bruits. Lungs are clear to auscultation. Cardiac exam reveals regular rate and Rhythm. Abdominal exam reveals normal bowel sounds, nontender, no organomegaly. Extremities are nonedematous and both femoral and pedal pulses are normal. HAND INSPECTOR: Alert awake oriented x2 no focal deficit noted intermittent delirium noted to - Constitutional Vitals: Temp Pulse Resp BP Pulse Ox 98.0 F 114 H 18 90/70 96 10/03/20 04:45 10/02/20 22:37 10/03/20 04:45 10/03/20 04:45 10/02/20 22:37 General appearance: Present: no acute distress HEART Score - HEART Score Troponin: Troponin T < 0.010 ng/mL (0.00-0.029) 09/22/20 05:38 Results - Labs CBC & Chem 7: 09/30/20 04:47 10/03/20 08:12 Labs: Laboratory Last Values WBC 9.3 K/mm3 (4.5-11.0) 09/30/20 04:47 RBC 2.47 M/mm3 (3.65-5.03) L 09/30/20 04:47 Hgb 8.1 gm/dl (11.8-15.2) L 09/30/20 04:47 Hct 23.9 % (35.5-45.6) L 09/30/20 04:47 MCV 97 fl (84-94) H 09/30/20 04:47 MCH 33 pg (28-32) H 09/30/20 04:47 MCHC 34 % (32-34) 09/30/20 04:47 RDW 14.2 % (13.2-15.2) 09/30/20 04:47 Plt Count 240 K/mm3 (140-440) 09/30/20 04:47 Lymph % (Auto) 4.3 % (13.4-35.0) L 09/27/20 04:00 [place] % (Auto) 6.0 % (0.0-7.3) 09/27/20 04:00 Eos % (Auto) 0.1 % (0.0-4.3) 09/27/20 04:00 Baso % (Auto) 0.0 % (0.0-1.8) 09/27/20 04:00 Lymph # (Auto) 0.6 K/mm3 (1.2-5.4) L 09/27/20 04:00 [place] # (Auto) 0.9 K/mm3 (0.0-0.8) H 09/27/20 04:00 Eos # (Auto) 0.0 K/mm3 (0.0-0.4) 09/27/20 04:00 Baso # (Auto) 0.0 K/mm3 (0.0-0.1) 09/27/20 04:00 Add Manual Diff Complete 09/23/20 04:36 Total Counted 100 09/23/20 04:36 Seg Neutrophils % 89.6 % (40.0-70.0) H 09/27/20 04:00 Seg Neuts % (Manual) 91.0 % (40.0-70.0) H 09/23/20 04:36 Band Neutrophils % 2.0 % 09/23/20 04:36 Lymphocytes % (Manual) 2.0 % (13.4-35.0) L 09/23/20 04:36 Monocytes % (Manual) 5.0 % (0.0-7.3) 09/23/20 04:36 Nucleated RBC % Not Reportable 09/23/20 04:36 Seg Neutrophils # 13.1 K/mm3 (1.8-7.7) H 09/27/20 04:00 Seg Neutrophils # Man 12.9 K/mm3 (1.8-7.7) H 09/23/20 04:36 Band Neutrophils # 0.3 K/mm3 09/23/20 04:36 Abs Lymphs (Manual) 223 cells/uL (850-3900) L 09/19/20 13:35 Lymphocytes # (Manual) 0.3 K/mm3 (1.2-5.4) L 09/23/20 04:36 Abs React Lymphs (Man) 0.0 K/mm3 09/23/20 04:36 Monocytes # (Manual) 0.7 K/mm3 (0.0-0.8) 09/23/20 04:36 Eosinophils # (Manual) 0.0 K/mm3 (0.0-0.4) 09/23/20 04:36 Basophils # (Manual) 0.0 K/mm3 (0.0-0.1) 09/23/20 04:36 Metamyelocytes # 0.0 K/mm3 09/23/20 04:36 Myelocytes # 0.0 K/mm3 09/23/20 04:36 Promyelocytes # 0.0 K/mm3 09/23/20 04:36 Blast Cells # 0.0 K/mm3 09/23/20 04:36 WBC Morphology Not Reportable 09/23/20 04:36 Hypersegmented Neuts Not Reportable 09/23/20 04:36 Hyposegmented Neuts Not Reportable 09/23/20 04:36 Hypogranular Neuts Not Reportable 09/23/20 04:36 Smudge Cells Not Reportable 09/23/20 04:36 Toxic Granulation Not Reportable 09/23/20 04:36 Toxic Vacuolation Not Reportable 09/23/20 04:36 Dohle Bodies Not Reportable 09/23/20 04:36 Pelger-Huet Anomaly Not Reportable 09/23/20 04:36 Vinh Rods Not Reportable 09/23/20 04:36 Platelet Estimate Consistent w auto 09/23/20 04:36 Clumped Platelets Not Reportable 09/23/20 04:36 Plt Clumps, EDTA Not Reportable 09/23/20 04:36 Large Platelets Not Reportable 09/23/20 04:36 Giant Platelets Not Reportable 09/23/20 04:36 Platelet Satelliting Not Reportable 09/23/20 04:36 Plt Morphology Comment Not Reportable 09/23/20 04:36 RBC Morphology Not Reportable 09/23/20 04:36 Dimorphic RBCs Not Reportable 09/23/20 04:36 Polychromasia Not Reportable 09/23/20 04:36 Hypochromasia Not Reportable 09/23/20 04:36 Poikilocytosis Not Reportable 09/23/20 04:36 Anisocytosis 1+ 09/23/20 04:36 Microcytosis Not Reportable 09/23/20 04:36 Macrocytosis Not Reportable 09/23/20 04:36 Spherocytes Not Reportable 09/23/20 04:36 Pappenheimer Bodies Not Reportable 09/23/20 04:36 Sickle Cells Not Reportable 09/23/20 04:36 Target Cells Few 09/23/20 04:36 Tear Drop Cells Not Reportable 09/23/20 04:36 Ovalocytes Not Reportable 09/23/20 04:36 Helmet Cells Not Reportable 09/23/20 04:36 [place] Bodies Not Reportable 09/23/20 04:36 [place] Rings Not Reportable 09/23/20 04:36 Vita Cells Not Reportable 09/23/20 04:36 Bite Cells Not Reportable 09/23/20 04:36 Crenated Cell Not Reportable 09/23/20 04:36 Elliptocytes Not Reportable 09/23/20 04:36 Acanthocytes (Spur) Not Reportable 09/23/20 04:36 Rouleaux Not Reportable 09/23/20 04:36 Hemoglobin C Crystals Not Reportable 09/23/20 04:36 Schistocytes Not Reportable 09/23/20 04:36 Malaria parasites Not Reportable 09/23/20 04:36 Zachary Bodies Not Reportable 09/23/20 04:36 Hem Pathologist Commnt No 09/23/20 04:36 PT 15.7 Sec. (12.2-14.9) H 09/24/20 12:13 INR 1.27 (0.87-1.13) H 09/24/20 12:13 APTT 25.7 Sec. (24.2-36.6) 09/24/20 12:13 D-Dimer 1772.86 ng/mlDDU (0-234) H 09/24/20 05:00 Heparin Anti-Xa Level 0.10 U.I./ml (0.3-0.7) L 09/20/20 04:00 Heparin Anti-Xa, Unfract Negative (Negative) 09/22/20 15:12 ABG pH 7.508 (7.320-7.450) H 09/17/20 10:28 POC ABG pCO2 22.8 mmHg (32.0-48.0) L 09/17/20 10:28 POC ABG pO2 66.8 mmHg (83-108) L 09/17/20 10:28 POC ABG HCO3 17.7 09/17/20 10:28 ABG O2 Saturation 93.4 (0-100) 09/17/20 10:28 POC ABG Base Excess -3.5 09/17/20 10:28 ABG Hemoglobin 12.7 (12.0-17.5) 09/17/20 10:28 ABG Oxyhemoglobin 92.7 (94-98) L 09/17/20 10:28 ABG Methemoglobin 0.3 (0.0-1.5) 09/17/20 10:28 ABG Sodium 127.4 mmol/L (136.0-145.0) L 09/17/20 10:28 ABG Potassium 4.7 mmol/L (3.40-4.50) H 09/17/20 10:28 ABG Chloride 101.0 mmol/L (98-107) 09/17/20 10:28 ABG Glucose 121 mg/dL (65-95) H 09/17/20 10:28 Carboxyhemoglobin 0.4 (0.5-1.5) L 09/17/20 10:28 FiO2 % 21 09/17/20 10:28 Sodium 140 mmol/L (137-145) 10/03/20 08:12 Potassium 5.4 mmol/L (3.6-5.0) H D 10/03/20 08:12 Chloride 106.9 mmol/L (98-107) 10/03/20 08:12 Carbon Dioxide 27 mmol/L (22-30) 10/03/20 08:12 Anion Gap 12 mmol/L 10/03/20 08:12 BUN 48 mg/dL (9-20) H 10/03/20 08:12 Creatinine 2.2 mg/dL (0.8-1.3) H 10/03/20 08:12 Estimated GFR 36 ml/min 10/03/20 08:12 BUN/Creatinine Ratio 22 % 10/03/20 08:12 Glucose 84 mg/dL (75-100) 10/03/20 08:12 POC Glucose 72 mg/dL (70-105) 09/30/20 11:45 Lactic Acid 1.00 mmol/L (0.7-2.0) 09/20/20 17:10 Calcium 8.0 mg/dL (8.4-10.2) L 10/03/20 08:12 Phosphorus 2.90 mg/dL (2.5-4.5) 09/26/20 07:06 Magnesium 1.70 mg/dL (1.7-2.3) 09/26/20 07:06 Ferritin 1190.0 ng/mL (30.0-300.0) H 09/24/20 05:00 Total Bilirubin 0.80 mg/dL (0.1-1.2) 09/30/20 04:47 AST 14 units/L (5-40) 09/30/20 04:47 ALT 21 units/L (7-56) 09/30/20 04:47 Alkaline Phosphatase 81 units/L (35-129) 09/30/20 04:47 Lactate Dehydrogenase 276 units/L (91-180) H 09/24/20 05:00 Total Creatine Kinase 20 units/L (55-170) L 09/19/20 03:30 Troponin T < 0.010 ng/mL (0.00-0.029) 09/22/20 05:38 C-Reactive Protein 4.20 mg/dL (0.00-1.30) H 09/24/20 05:00 NT-Pro-B Natriuret Pep 40961 pg/mL (0-900) H 09/17/20 10:47 Total Protein 5.9 g/dL (6.3-8.2) L 09/30/20 04:47 Albumin 2.2 g/dL (3.9-5) L 09/30/20 04:47 Albumin/Globulin Ratio 0.6 % 09/30/20 04:47 Triglycerides 137 mg/dL (2-149) 09/17/20 13:54 Cholesterol 48 mg/dL (50-199) L 09/17/20 13:54 LDL Cholesterol Direct 4 mg/dL (50-130) L 09/17/20 13:54 HDL Cholesterol 9 mg/dL (40-59) L 09/17/20 13:54 Cholesterol/HDL Ratio 5.33 % 09/17/20 13:54 Free PSA See scanned result 09/17/20 17:35 % Free PSA Calc See scanned result 09/17/20 17:35 Total PSA See scanned result 09/17/20 17:35 Procalcitonin 2.10 ng/mL (<0.15) 09/25/20 06:40 PTH Intact 161.4 pg/mL (15-65) H 09/19/20 03:30 Arterial Blood Glucose 121 mg/dL (65-95) H 09/17/20 10:28 Arterial Blood Ionized Calcium 5.0 mg/dL (4.6-5.3) 09/17/20 10:28 Urine Color Yellow (Yellow) 09/18/20 12:00 Urine Turbidity Cloudy (Clear) 09/18/20 12:00 Urine pH 5.0 (5.0-7.0) 09/18/20 12:00 Ur Specific [place] 1.009 (1.003-1.030) 09/18/20 12:00 Urine Protein 30 mg/dl mg/dL (Negative) 09/18/20 12:00 Urine Glucose (UA) Neg mg/dL (Negative) 09/18/20 12:00 Urine Ketones Neg mg/dL (Negative) 09/18/20 12:00 Urine Blood Sm (Negative) 09/18/20 12:00 Urine Nitrite Neg (Negative) 09/18/20 12:00 Urine Bilirubin Neg (Negative) 09/18/20 12:00 Urine Urobilinogen < 2.0 mg/dL (<2.0) 09/18/20 12:00 Ur Leukocyte Esterase Mod (Negative) 09/18/20 12:00 Urine WBC (Auto) 71.0 /HPF (0.0-6.0) H 09/18/20 12:00 Urine RBC (Auto) 2.0 /HPF (0.0-6.0) 09/18/20 12:00 U Epithel Cells (Auto) 1.0 /HPF (0-13.0) 09/18/20 12:00 Urine Bacteria (Auto) 4+ /HPF (Negative) 09/18/20 12:00 Urine WBC Clumps 2+ /HPF 09/18/20 12:00 Hyaline Casts 3 /LPF 09/18/20 12:00 Granular Casts 3 /LPF 09/18/20 12:00 Urine Mucus Few /HPF 09/18/20 12:00 Urine Eosinophils None seen (None Seen) 09/19/20 03:15 Urine Creatinine 61.0 mg/dL (0.1-20.0) H 09/18/20 12:00 Urine Sodium 62 mmol/L 09/18/20 12:00 Random Vancomycin 12.7 ug/mL (0-40.0) 09/19/20 03:30 Valproic Acid 17.8 ug/mL (50-100) L 10/03/20 08:12 Heparin-induced Plt Ab Weak positive (Negative) H 09/22/20 15:12 UF Heparin High Dose 0 % Release 09/22/20 15:12 [place] UFH Low Dose 0.1 0 % Release 09/22/20 15:12 [place] UFH Low Dose 0.5 0 % Release 09/22/20 15:12 Lymph Enumerat CD4/CD8 0.70 (0.86-5.00) L 09/19/20 13:35 % CD3 Cells 79 % (57-85) 09/19/20 13:35 Absolute CD3 Count 175 cells/uL (840-3060) L 09/19/20 13:35 % CD4 Cells 31 % (30-61) 09/19/20 13:35 Absolute CD4 Count 70 cells/uL (490-1740) L 09/19/20 13:35 % CD8 Cells 45 % (12-42) H 09/19/20 13:35 Absolute CD8 Count 101 cells/uL (180-1170) L 09/19/20 13:35 % CD19 Cells 12 % (6-29) 09/19/20 13:35 Absolute CD19 Count 26 cells/uL (110-660) L 09/19/20 13:35 Coronavirus (PCR) Positive (Negative) A 10/01/20 08:30 Hepatitis A IgM Ab Non-reactive (NonReactive) 09/20/20 17:10 Hep Bs Antigen Non-reactive (Negative) 09/20/20 17:10 Hep B Core IgM Ab Non-reactive (NonReactive) 09/20/20 17:10 Hepatitis C Antibody Non-reactive (NonReactive) 09/20/20 17:10 HIV-1 RNA PCR copies/ml 67 Copies/mL H 09/19/20 13:35 HIV-1 RNA (PCR) log 1.83 Log cps/mL H 09/19/20 13:35 Gardner/IV: Voiding Method Condom Catheter Active Medications - Current Medications Current Medications: Generic Name Dose Route Start Last Admin Trade Name Freq PRN Reason Stop Dose Admin Acetaminophen 650 mg 09/17/20 13:52 09/30/20 21:12 Acetaminophen 325 Mg Tab PO 650 mg Q4H PRN Administration Pain MILD(1-3)/Fever >100.5/ANGEL Albuterol 2.5 mg 09/17/20 13:52 09/17/20 20:47 Albuterol 2.5 Mg/3 Ml Nebu IH 2.5 mg Q4HRT PRN Administration Shortness Of Breath Amiodarone HCl 200 mg 10/01/20 22:00 10/03/20 09:21 Amiodarone 200 Mg Tab PO Not Given BID EDIE Lipase/Protease/Amylase 1 each 09/20/20 13:10 Lipase 10,500/Protease 25,000/Amylase 43,750 (Units) Dr Patrick FEEDTUBE PRN PRN For Clogged Feeding Tube Apixaban 2.5 mg 09/24/20 12:00 10/03/20 08:28 Apixaban 2.5 Mg Tab PO 2.5 mg Q12HR EDIE Administration Protocol Ascorbic Acid 500 mg 09/20/20 22:00 10/03/20 08:28 Ascorbic Acid 500 Mg Tab PO 500 mg BID EDIE Administration Cholecalciferol 1,000 unit 09/21/20 10:00 10/03/20 08:27 Cholecalciferol (Vit D3) 1000 Unit (25 Mcg) Tab PO 1,000 unit QDAY EDIE Administration Dextrose 50 ml 10/03/20 10:00 Dextrose 50% In Water (25gm) 50 Ml Syringe IV 10/03/20 10:01 ONCE ONE Protocol Emtricitabine 200 mg 09/30/20 11:00 10/02/20 11:45 Emtricitabine 200 Mg Cap PO 200 mg Q48H EDIE Administration Famotidine 20 mg 09/24/20 10:00 10/03/20 08:35 Famotidine 20 Mg Tab PO 20 mg DAILY EDIE Administration Haloperidol Lactate 5 mg 10/01/20 11:34 10/02/20 17:04 Haloperidol Lactate 5 Mg/1 Ml Inj IM 5 mg Q6H PRN Administration Agitation Heparin Sodium (Porcine) 3,000 unit 09/20/20 10:06 Heparin 10,000 Units/10 Ml Vial IV VIRGIL PRN hemodialysis Sodium Chloride 100 mls @ 999 mls/hr 09/20/20 10:06 Nacl 0.9% IV VIRGIL PRN Hypotension Valproate Sodium 500 mg/ 105 mls @ 100 mls/hr 10/01/20 12:30 10/02/20 22:56 Sodium Chloride IV 100 mls/hr Q12HR EDIE Administration Metoprolol Tartrate 5 mg 09/19/20 19:06 09/24/20 10:59 Metoprolol Tartrate 5 Mg/5 Ml Inj IV 5 mg Q8HR PRN Administration HR > 135 Minute Metoprolol Tartrate 12.5 mg 10/02/20 20:00 10/02/20 22:52 Metoprolol Tartrate 25 Mg Tab PO 12.5 mg BID EDIE Administration Midodrine 5 mg 09/22/20 12:00 10/03/20 08:27 Midodrine 5 Mg Tab PO 5 mg TID@0800,1200,1600 EDIE Administration Ondansetron HCl 4 mg 09/17/20 13:52 Ondansetron 4 Mg/2 Ml Inj IV Q8H PRN Nausea And Vomiting Quetiapine Fumarate 12.5 mg 10/03/20 10:00 10/03/20 08:27 Quetiapine 25 Mg Tab PO 12.5 mg QAM EDIE Administration Quetiapine Fumarate 12.5 mg 10/03/20 22:00 Quetiapine 25 Mg Tab PO QHS EDIE Simple Syrup 15 ml 09/20/20 13:10 Simple Syrup 15 Ml FEEDTUBE PRN PRN Hypoglycemia Simple Syrup 30 ml 09/20/20 13:10 Simple Syrup 15 Ml FEEDTUBE PRN PRN Hypoglycemia Sodium Bicarbonate 325 mg 09/20/20 13:10 Sodium Bicarbonate 325 Mg Tab FEEDTUBE PRN PRN For Clogged Feeding Tube Sodium Chloride 10 ml 09/17/20 22:00 10/03/20 08:30 Sodium Chloride 0.9% 10 Ml Flush Syringe IV 10 ml BID EDIE Administration Sodium Chloride 10 ml 09/17/20 13:52 09/24/20 09:15 Sodium Chloride 0.9% 10 Ml Flush Syringe IV 10 ml PRN PRN Administration LINE FLUSH Tenofovir Disoproxil Fumarate 300 mg 09/30/20 11:00 10/02/20 11:45 Tenofovir 300 Mg Tab PO 300 mg Q48H EDIE Administration Zinc Sulfate 220 mg 09/21/20 10:00 10/02/20 09:24 Zinc Sulfate 220 Mg Cap PO 220 mg QDAY EDIE Administration Nutrition/Malnutrition Assess - Dietary Evaluation Nutrition/Malnutrition Findings: Nutrition Notes Start: 09/18/20 11:30 Freq: Status: Active Protocol: Document 09/27/20 13:30 MELISSA (Rec: 09/27/20 13:40 MELISSA [id number]) Nutrition Notes Initial or Follow up Reassessment Current Diagnosis Acute Kidney Injury,Sepsis, Hypertension,Heart Failure, Respiratory Failure Other Pertinent Diagnosis COVID-19 (+), AMS, UTI, afib with RVR, HIV (+) Current Diet TF - Nepro at 45ml/hr Labs/Tests BUN 67 Cr 2.3 Pertinent Medications Reviewed Height 6 ft 1 in Weight 73 kg [place] Body Weight (kg) 83.63 BMI 21.2 Weight Status Underweight Subjective/Other Information Pt pulled out NGT yesterday, however, it was re-inserted and confirmed by [place]. Spoke with RN via phone at 13:28. Pt tolerating TF at goal rate. Percent of energy/protein needs met: 100% energy 99% pro Burn Absent Trauma Absent #2 Nutrition Diagnosis Inadequate oral intake Diagnosis Progress(for reassessment Continues documentation) Is patient on ventilator? No Is Patient Ambulatory and/or Out of Bed No REE-([place], [place]-confined to bed) 1858.500 Kcal/Kg value to use for calculation 30 Approximate Energy Requirements Using 2190 kcal/Kg Calculation Used for Recommendations Kcal/kg Additional Notes Pro needs >1.2g/kg: >88g/day Fluid needs 1-1.5L/day Nutrition Intervention Nutrition Support: Continue Nepro at 45 ml/hr with a free water flush of 200 ml q4h Kcal 1,944 Protein (gm) 87 Fluid (mL) 785 Goal #1 TF tolerance Goal #2 TF to meet 75-100% energy and pro needs Goal #3 Wt maintenance and/or gain Follow-Up By: 10/04/20 Additional Comments F/U: stable TF, wt
[2020-10-03] MEDS ORDERED: DEXTROSE 50% IN WATER (25GM) 50 ML SYRINGE IV ONE (10:00)
[2020-10-03] MEDS: VALPROATE SODIUM 500 MG in SODIUM CHLORIDE 0.9% 100 ML IV SCH (10:00)
[2020-10-03] MEDS: ZINC SULFATE 220 MG CAP PO SCH (10:04)
[2020-10-03] MEDS: DOLUTEGRAVIR 50 MG TAB PO SCH (11:31)
[2020-10-03] MEDS: METOPROLOL TARTRATE 25 MG TAB PO SCH ×2 (11:33→23:08)
--- NOTE | 2020-10-03 11:52 | Progress Note ---
Assessment and Plan Assessment and Plan Assessment and plan: This is 70-year-old male with HIV, HTN, and atrial fibrillation (currently on therapeutic anticoagulation with Xarelto) presents the emergency department on with complaints of shortness of breath over the past 3 days and on arrival of EMS patient was found to have a pulse oximetry of 85% on room air. He was placed on supplemental oxygenation. Of note patient was admitted on 09/15 with similar complaints and found to have A. fib with RVR, hyponatremia, hypomagnesemia and acute kidney injury and left AMA. He was admitted to the hospital service with atrial fibrillation with RVR, SIRs, metabolic acidosis, acute kidney injury, acute hypoxic respiratory failure, hypotension, and CHF . Cardiology, CCM and nephrology were consulted. Neurology is consulted today due to increase agitation /aggressive behaviour and confusion according to record attempt to give seroquel was not tolerated by the pt. # Finding from hx and exam is suggestive of underling Delirium--- improved on Valproic acid and seroquel -he is alert interactive at time knows the place today not date but knows name and birthdate and address - no more crying -Haldol 1 mg Iv q 4 hours prn for agitation -hold Seroquel for now will cut down to 25 mg qhs only and decrease valproate to 250 mg bid - sun slight exposure during the day -consider PT therapy - will cut down Seroqel 25 mg qhs -Cut down valproate to 250 mg po bid - Valproic acid level is #17.8 #Septic Shock resolved #Acute hypoxemic respiratory failure 2/2 to volume overload/chf exacerbation #Acute systolic heart failure exacerbation #Atrial fibrillation with RVR #Acute on chronic kidney injury #Hypotension #Anemia #Thrombocytopenia #E coli bacteremia #E. coli urinary tract infection #NSTEMI #Elevated Ddimer #Leukocytosis #HIV, asymptomatic #HTN #Coagulopathy #Transaminitis PLAN 1-Valproic to 250 mg bid po 2- Seroquel 25 mg qhs 3- Pt therapy 4- Sunlight exposure during the day +++ Possible underlying dementia -- need neurology follow up after D/C DVT/GI prophylaxis: PPI, SCDs to bilateral lower extremities while in bed, no chemical anticoagulation at this time d/t thrombocytopenia will follow as needed Subjective Date of service: 10/03/20 Principal diagnosis: Acute Hypoxemic Resp Failure; COVID-19 infxn; Septic Shock; A-Fib with RVR Interval history: pt. is calmer today alert oriented to place follow command no more crying slightly sleepy oriented to place and birthdate Objective - Vital Sign Vital Signs - 12hr 10/03/20 10/03/20 10/03/20 04:45 11:18 11:33 Temperature 98.0 F 98.9 F Pulse Rate 68 Respiratory 18 20 Rate Blood Pressure 90/70 107/63 98/68 O2 Sat by Pulse 89 Oximetry - General Apperance Constitutional: comfortable, other (restrained) - EENT EENT: PERRL, mucous membranes moist - Respiratory Respiratory: chest non-tender, lungs clear, crackles - Cardiovascular Cardiovascular: regular rate Extremities: no peripheral edema bilat, no clubbing, cyanosis - Gastrointestinal Gastrointestinal: normoactive bowel sounds - Integumentary Integumentary: normal - Neurologic Cranial nerve examination: PERRL, EOMI Detailed motor examination: grossly full strength in - Laboratory Findings CBC and BMP: 09/30/20 04:47 10/03/20 08:12 Abnormal Lab Findings: Abnormal Labs 09/17/20 09/17/20 09/17/20 10:28 10:47 10:47 WBC 11.1 H RBC 3.44 L Hgb 11.2 L Hct 32.8 L MCV 95 H MCH MCHC Plt Count Lymph % (Auto) Sampson % (Auto) Lymph # (Auto) Sampson # (Auto) Seg Neutrophils % Seg Neuts % (Manual) Lymphocytes % (Manual) 4.0 L Monocytes % (Manual) Nucleated RBC % Seg Neutrophils # Seg Neutrophils # Man 10.7 H Abs Lymphs (Manual) Lymphocytes # (Manual) 0.4 L PT 32.9 H INR 3.16 H APTT 51.1 H D-Dimer Heparin Anti-Xa Level ABG pH 7.508 H POC ABG pCO2 22.8 L POC ABG pO2 66.8 L ABG Oxyhemoglobin 92.7 L ABG Sodium 127.4 L ABG Potassium 4.7 H ABG Glucose 121 H Carboxyhemoglobin 0.4 L Sodium Potassium Chloride Carbon Dioxide BUN Creatinine Glucose POC Glucose Calcium Phosphorus Ferritin Total Bilirubin AST ALT Alkaline Phosphatase Lactate Dehydrogenase Total Creatine Kinase Troponin T C-Reactive Protein NT-Pro-B Natriuret Pep Total Protein Albumin Cholesterol LDL Cholesterol Direct HDL Cholesterol PTH Intact Arterial Blood Glucose 121 H Urine WBC (Auto) Urine Creatinine Valproic Acid Heparin-induced Plt Ab Lymph Enumerat CD4/CD8 Absolute CD3 Count Absolute CD4 Count % CD8 Cells Absolute CD8 Count Absolute CD19 Count Coronavirus (PCR) HIV-1 RNA PCR copies/ml HIV-1 RNA (PCR) log 09/17/20 09/17/20 09/17/20 10:47 10:47 13:54 WBC RBC Hgb Hct MCV MCH MCHC Plt Count Lymph % (Auto) Sampson % (Auto) Lymph # (Auto) Sampson # (Auto) Seg Neutrophils % Seg Neuts % (Manual) Lymphocytes % (Manual) Monocytes % (Manual) Nucleated RBC % Seg Neutrophils # Seg Neutrophils # Man Abs Lymphs (Manual) Lymphocytes # (Manual) PT INR APTT D-Dimer Heparin Anti-Xa Level ABG pH POC ABG pCO2 POC ABG pO2 ABG Oxyhemoglobin ABG Sodium ABG Potassium ABG Glucose Carboxyhemoglobin Sodium 125 L Potassium Chloride 95.3 L Carbon Dioxide 17 L BUN 64 H Creatinine 4.6 H D Glucose 104 H POC Glucose Calcium Phosphorus Ferritin Total Bilirubin AST 69 H ALT Alkaline Phosphatase Lactate Dehydrogenase Total Creatine Kinase Troponin T 0.061 H D 0.058 H C-Reactive Protein NT-Pro-B Natriuret Pep 43740 H Total Protein Albumin 1.9 L Cholesterol 48 L LDL Cholesterol Direct 4 L HDL Cholesterol 9 L PTH Intact Arterial Blood Glucose Urine WBC (Auto) Urine Creatinine Valproic Acid Heparin-induced Plt Ab Lymph Enumerat CD4/CD8 Absolute CD3 Count Absolute CD4 Count % CD8 Cells Absolute CD8 Count Absolute CD19 Count Coronavirus (PCR) HIV-1 RNA PCR copies/ml HIV-1 RNA (PCR) log 09/17/20 09/17/20 09/17/20 16:36 17:35 17:35 WBC RBC 3.25 L Hgb 10.7 L Hct 31.1 L MCV 96 H MCH 33 H MCHC Plt Count Lymph % (Auto) Sampson % (Auto) Lymph # (Auto) Sampson # (Auto) Seg Neutrophils % Seg Neuts % (Manual) Lymphocytes % (Manual) Monocytes % (Manual) Nucleated RBC % Seg Neutrophils # Seg Neutrophils # Man Abs Lymphs (Manual) Lymphocytes # (Manual) PT 31.9 H INR 3.04 H APTT 50.9 H D-Dimer Heparin Anti-Xa Level ABG pH POC ABG pCO2 POC ABG pO2 ABG Oxyhemoglobin ABG Sodium ABG Potassium ABG Glucose Carboxyhemoglobin Sodium Potassium Chloride Carbon Dioxide BUN Creatinine Glucose POC Glucose Calcium Phosphorus Ferritin Total Bilirubin AST ALT Alkaline Phosphatase Lactate Dehydrogenase Total Creatine Kinase Troponin T 0.057 H C-Reactive Protein NT-Pro-B Natriuret Pep Total Protein Albumin Cholesterol LDL Cholesterol Direct HDL Cholesterol PTH Intact Arterial Blood Glucose Urine WBC (Auto) Urine Creatinine Valproic Acid Heparin-induced Plt Ab Lymph Enumerat CD4/CD8 Absolute CD3 Count Absolute CD4 Count % CD8 Cells Absolute CD8 Count Absolute CD19 Count Coronavirus (PCR) HIV-1 RNA PCR copies/ml HIV-1 RNA (PCR) log 09/17/20 09/18/20 09/18/20 17:35 03:19 03:19 WBC RBC 3.32 L Hgb 10.9 L Hct 32.0 L MCV 96 H MCH 33 H MCHC Plt Count 138 L Lymph % (Auto) Sampson % (Auto) Lymph # (Auto) Sampson # (Auto) Seg Neutrophils % Seg Neuts % (Manual) 95.0 H Lymphocytes % (Manual) 3.0 L Monocytes % (Manual) Nucleated RBC % Seg Neutrophils # Seg Neutrophils # Man 8.1 H Abs Lymphs (Manual) Lymphocytes # (Manual) 0.3 L PT INR APTT D-Dimer Heparin Anti-Xa Level ABG pH POC ABG pCO2 POC ABG pO2 ABG Oxyhemoglobin ABG Sodium ABG Potassium ABG Glucose Carboxyhemoglobin Sodium Potassium Chloride Carbon Dioxide 16 L BUN 70 H Creatinine 4.6 H 4.7 H Glucose 104 H POC Glucose Calcium 8.2 L Phosphorus Ferritin Total Bilirubin 1.60 H AST 128 H ALT 67 H Alkaline Phosphatase Lactate Dehydrogenase Total Creatine Kinase Troponin T C-Reactive Protein NT-Pro-B Natriuret Pep Total Protein 5.2 L D Albumin 2.5 L Cholesterol LDL Cholesterol Direct HDL Cholesterol PTH Intact Arterial Blood Glucose Urine WBC (Auto) Urine Creatinine Valproic Acid Heparin-induced Plt Ab Lymph Enumerat CD4/CD8 Absolute CD3 Count Absolute CD4 Count % CD8 Cells Absolute CD8 Count Absolute CD19 Count Coronavirus (PCR) HIV-1 RNA PCR copies/ml HIV-1 RNA (PCR) log 09/18/20 09/18/20 09/18/20 09:39 12:00 12:00 WBC RBC Hgb Hct MCV MCH MCHC Plt Count Lymph % (Auto) Sampson % (Auto) Lymph # (Auto) Sampson # (Auto) Seg Neutrophils % Seg Neuts % (Manual) Lymphocytes % (Manual) Monocytes % (Manual) Nucleated RBC % Seg Neutrophils # Seg Neutrophils # Man Abs Lymphs (Manual) Lymphocytes # (Manual) PT INR APTT D-Dimer Heparin Anti-Xa Level ABG pH POC ABG pCO2 POC ABG pO2 ABG Oxyhemoglobin ABG Sodium ABG Potassium ABG Glucose Carboxyhemoglobin Sodium Potassium Chloride Carbon Dioxide BUN Creatinine Glucose POC Glucose Calcium Phosphorus Ferritin Total Bilirubin AST ALT Alkaline Phosphatase Lactate Dehydrogenase Total Creatine Kinase Troponin T C-Reactive Protein NT-Pro-B Natriuret Pep Total Protein Albumin Cholesterol LDL Cholesterol Direct HDL Cholesterol PTH Intact Arterial Blood Glucose Urine WBC (Auto) 71.0 H Urine Creatinine 61.0 H Valproic Acid Heparin-induced Plt Ab Lymph Enumerat CD4/CD8 Absolute CD3 Count Absolute CD4 Count % CD8 Cells Absolute CD8 Count Absolute CD19 Count Coronavirus (PCR) Positive A HIV-1 RNA PCR copies/ml HIV-1 RNA (PCR) log 09/18/20 09/18/20 09/18/20 15:07 15:07 18:33 WBC RBC Hgb 10.7 L Hct 31.3 L MCV MCH MCHC Plt Count Lymph % (Auto) Sampson % (Auto) Lymph # (Auto) Sampson # (Auto) Seg Neutrophils % Seg Neuts % (Manual) Lymphocytes % (Manual) Monocytes % (Manual) Nucleated RBC % Seg Neutrophils # Seg Neutrophils # Man Abs Lymphs (Manual) Lymphocytes # (Manual) PT 20.3 H INR 1.73 H APTT 40.8 H D-Dimer Heparin Anti-Xa Level 1.09 H ABG pH POC ABG pCO2 POC ABG pO2 ABG Oxyhemoglobin ABG Sodium ABG Potassium ABG Glucose Carboxyhemoglobin Sodium Potassium Chloride Carbon Dioxide BUN Creatinine Glucose POC Glucose Calcium Phosphorus Ferritin Total Bilirubin AST ALT Alkaline Phosphatase Lactate Dehydrogenase Total Creatine Kinase Troponin T C-Reactive Protein NT-Pro-B Natriuret Pep Total Protein Albumin Cholesterol LDL Cholesterol Direct HDL Cholesterol PTH Intact Arterial Blood Glucose Urine WBC (Auto) Urine Creatinine Valproic Acid Heparin-induced Plt Ab Lymph Enumerat CD4/CD8 Absolute CD3 Count Absolute CD4 Count % CD8 Cells Absolute CD8 Count Absolute CD19 Count Coronavirus (PCR) HIV-1 RNA PCR copies/ml HIV-1 RNA (PCR) log 05/02/21 05/02/21 05/02/21 03:30 03:30 03:30 WBC RBC 3.29 L Hgb 10.9 L Hct 30.9 L MCV MCH 33 H MCHC 35 H Plt Count Lymph % (Auto) Sampson % (Auto) Lymph # (Auto) Sampson # (Auto) Seg Neutrophils % Seg Neuts % (Manual) Lymphocytes % (Manual) Monocytes % (Manual) Nucleated RBC % Seg Neutrophils # Seg Neutrophils # Man Abs Lymphs (Manual) Lymphocytes # (Manual) PT INR APTT D-Dimer Heparin Anti-Xa Level ABG pH POC ABG pCO2 POC ABG pO2 ABG Oxyhemoglobin ABG Sodium ABG Potassium ABG Glucose Carboxyhemoglobin Sodium 133 L Potassium Chloride Carbon Dioxide 17 L BUN 94 H Creatinine 5.0 H Glucose 120 H POC Glucose Calcium Phosphorus 6.30 H Ferritin Total Bilirubin 2.40 H AST 163 H ALT 109 H Alkaline Phosphatase 160 H Lactate Dehydrogenase Total Creatine Kinase 20 L Troponin T C-Reactive Protein NT-Pro-B Natriuret Pep Total Protein 6.2 L Albumin 2.0 L Cholesterol LDL Cholesterol Direct HDL Cholesterol PTH Intact 161.4 H Arterial Blood Glucose Urine WBC (Auto) Urine Creatinine Valproic Acid Heparin-induced Plt Ab Lymph Enumerat CD4/CD8 Absolute CD3 Count Absolute CD4 Count % CD8 Cells Absolute CD8 Count Absolute CD19 Count Coronavirus (PCR) HIV-1 RNA PCR copies/ml HIV-1 RNA (PCR) log 09/19/20 09/19/20 09/19/20 06:35 13:35 13:35 WBC RBC Hgb Hct MCV MCH MCHC Plt Count Lymph % (Auto) Sampson % (Auto) Lymph # (Auto) Sampson # (Auto) Seg Neutrophils % Seg Neuts % (Manual) Lymphocytes % (Manual) Monocytes % (Manual) Nucleated RBC % Seg Neutrophils # Seg Neutrophils # Man Abs Lymphs (Manual) 223 L Lymphocytes # (Manual) PT INR APTT D-Dimer Heparin Anti-Xa Level ABG pH POC ABG pCO2 POC ABG pO2 ABG Oxyhemoglobin ABG Sodium ABG Potassium ABG Glucose Carboxyhemoglobin Sodium Potassium Chloride Carbon Dioxide BUN Creatinine Glucose POC Glucose 123 H Calcium Phosphorus Ferritin Total Bilirubin AST ALT Alkaline Phosphatase Lactate Dehydrogenase Total Creatine Kinase Troponin T C-Reactive Protein NT-Pro-B Natriuret Pep Total Protein Albumin Cholesterol LDL Cholesterol Direct HDL Cholesterol PTH Intact Arterial Blood Glucose Urine WBC (Auto) Urine Creatinine Valproic Acid Heparin-induced Plt Ab Lymph Enumerat CD4/CD8 0.70 L Absolute CD3 Count 175 L Absolute CD4 Count 70 L % CD8 Cells 45 H Absolute CD8 Count 101 L Absolute CD19 Count 26 L Coronavirus (PCR) HIV-1 RNA PCR copies/ml 67 H HIV-1 RNA (PCR) log 1.83 H 09/19/20 09/20/20 09/20/20 23:37 04:00 04:00 WBC RBC 3.43 L Hgb 11.1 L Hct 32.2 L MCV MCH MCHC Plt Count 131 L Lymph % (Auto) Sampson % (Auto) Lymph # (Auto) Sampson # (Auto) Seg Neutrophils % Seg Neuts % (Manual) 88.0 H Lymphocytes % (Manual) 3.0 L Monocytes % (Manual) 9.0 H Nucleated RBC % Seg Neutrophils # Seg Neutrophils # Man 8.2 H Abs Lymphs (Manual) Lymphocytes # (Manual) 0.3 L PT INR APTT D-Dimer Heparin Anti-Xa Level 0.10 L ABG pH POC ABG pCO2 POC ABG pO2 ABG Oxyhemoglobin ABG Sodium ABG Potassium ABG Glucose Carboxyhemoglobin Sodium Potassium Chloride Carbon Dioxide BUN Creatinine Glucose POC Glucose 135 H Calcium Phosphorus Ferritin Total Bilirubin AST ALT Alkaline Phosphatase Lactate Dehydrogenase Total Creatine Kinase Troponin T C-Reactive Protein NT-Pro-B Natriuret Pep Total Protein Albumin Cholesterol LDL Cholesterol Direct HDL Cholesterol PTH Intact Arterial Blood Glucose Urine WBC (Auto) Urine Creatinine Valproic Acid Heparin-induced Plt Ab Lymph Enumerat CD4/CD8 Absolute CD3 Count Absolute CD4 Count % CD8 Cells Absolute CD8 Count Absolute CD19 Count Coronavirus (PCR) HIV-1 RNA PCR copies/ml HIV-1 RNA (PCR) log 09/20/20 09/20/20 09/20/20 04:00 05:37 11:20 WBC RBC Hgb Hct MCV MCH MCHC Plt Count Lymph % (Auto) Sampson % (Auto) Lymph # (Auto) Sampson # (Auto) Seg Neutrophils % Seg Neuts % (Manual) Lymphocytes % (Manual) Monocytes % (Manual) Nucleated RBC % Seg Neutrophils # Seg Neutrophils # Man Abs Lymphs (Manual) Lymphocytes # (Manual) PT INR APTT D-Dimer Heparin Anti-Xa Level ABG pH POC ABG pCO2 POC ABG pO2 ABG Oxyhemoglobin ABG Sodium ABG Potassium ABG Glucose Carboxyhemoglobin Sodium Potassium Chloride Carbon Dioxide 16 L BUN 119 H Creatinine 6.2 H Glucose 136 H POC Glucose 137 H 108 H Calcium Phosphorus Ferritin Total Bilirubin AST ALT Alkaline Phosphatase Lactate Dehydrogenase Total Creatine Kinase Troponin T C-Reactive Protein NT-Pro-B Natriuret Pep Total Protein Albumin Cholesterol LDL Cholesterol Direct HDL Cholesterol PTH Intact Arterial Blood Glucose Urine WBC (Auto) Urine Creatinine Valproic Acid Heparin-induced Plt Ab Lymph Enumerat CD4/CD8 Absolute CD3 Count Absolute CD4 Count % CD8 Cells Absolute CD8 Count Absolute CD19 Count Coronavirus (PCR) HIV-1 RNA PCR copies/ml HIV-1 RNA (PCR) log 09/20/20 09/20/20 09/20/20 17:10 17:10 17:10 WBC RBC Hgb Hct MCV MCH MCHC Plt Count Lymph % (Auto) Sampson % (Auto) Lymph # (Auto) Sampson # (Auto) Seg Neutrophils % Seg Neuts % (Manual) Lymphocytes % (Manual) Monocytes % (Manual) Nucleated RBC % Seg Neutrophils # Seg Neutrophils # Man Abs Lymphs (Manual) Lymphocytes # (Manual) PT INR APTT D-Dimer 4271.58 H Heparin Anti-Xa Level ABG pH POC ABG pCO2 POC ABG pO2 ABG Oxyhemoglobin ABG Sodium ABG Potassium ABG Glucose Carboxyhemoglobin Sodium Potassium Chloride Carbon Dioxide BUN Creatinine 6.0 H Glucose POC Glucose Calcium Phosphorus Ferritin 696.6 H Total Bilirubin AST ALT Alkaline Phosphatase Lactate Dehydrogenase Total Creatine Kinase Troponin T C-Reactive Protein NT-Pro-B Natriuret Pep Total Protein Albumin Cholesterol LDL Cholesterol Direct HDL Cholesterol PTH Intact Arterial Blood Glucose Urine WBC (Auto) Urine Creatinine Valproic Acid Heparin-induced Plt Ab Lymph Enumerat CD4/CD8 Absolute CD3 Count Absolute CD4 Count % CD8 Cells Absolute CD8 Count Absolute CD19 Count Coronavirus (PCR) HIV-1 RNA PCR copies/ml HIV-1 RNA (PCR) log 09/20/20 09/20/20 09/20/20 17:10 18:21 23:14 WBC RBC Hgb Hct MCV MCH MCHC Plt Count Lymph % (Auto) Sampson % (Auto) Lymph # (Auto) Sampson # (Auto) Seg Neutrophils % Seg Neuts % (Manual) Lymphocytes % (Manual) Monocytes % (Manual) Nucleated RBC % Seg Neutrophils # Seg Neutrophils # Man Abs Lymphs (Manual) Lymphocytes # (Manual) PT INR APTT D-Dimer Heparin Anti-Xa Level ABG pH POC ABG pCO2 POC ABG pO2 ABG Oxyhemoglobin ABG Sodium ABG Potassium ABG Glucose Carboxyhemoglobin Sodium Potassium Chloride Carbon Dioxide BUN Creatinine Glucose POC Glucose 129 H 170 H Calcium Phosphorus Ferritin Total Bilirubin AST ALT Alkaline Phosphatase Lactate Dehydrogenase 209 H Total Creatine Kinase Troponin T C-Reactive Protein 10.60 H NT-Pro-B Natriuret Pep Total Protein Albumin Cholesterol LDL Cholesterol Direct HDL Cholesterol PTH Intact Arterial Blood Glucose Urine WBC (Auto) Urine Creatinine Valproic Acid Heparin-induced Plt Ab Lymph Enumerat CD4/CD8 Absolute CD3 Count Absolute CD4 Count % CD8 Cells Absolute CD8 Count Absolute CD19 Count Coronavirus (PCR) HIV-1 RNA PCR copies/ml HIV-1 RNA (PCR) log 09/21/20 09/21/20 09/21/20 05:35 17:09 23:18 WBC RBC Hgb Hct MCV MCH MCHC Plt Count Lymph % (Auto) Sampson % (Auto) Lymph # (Auto) Sampson # (Auto) Seg Neutrophils % Seg Neuts % (Manual) Lymphocytes % (Manual) Monocytes % (Manual) Nucleated RBC % Seg Neutrophils # Seg Neutrophils # Man Abs Lymphs (Manual) Lymphocytes # (Manual) PT INR APTT D-Dimer Heparin Anti-Xa Level ABG pH POC ABG pCO2 POC ABG pO2 ABG Oxyhemoglobin ABG Sodium ABG Potassium ABG Glucose Carboxyhemoglobin Sodium Potassium Chloride Carbon Dioxide BUN Creatinine Glucose POC Glucose 170 H 140 H 139 H Calcium Phosphorus Ferritin Total Bilirubin AST ALT Alkaline Phosphatase Lactate Dehydrogenase Total Creatine Kinase Troponin T C-Reactive Protein NT-Pro-B Natriuret Pep Total Protein Albumin Cholesterol LDL Cholesterol Direct HDL Cholesterol PTH Intact Arterial Blood Glucose Urine WBC (Auto) Urine Creatinine Valproic Acid Heparin-induced Plt Ab Lymph Enumerat CD4/CD8 Absolute CD3 Count Absolute CD4 Count % CD8 Cells Absolute CD8 Count Absolute CD19 Count Coronavirus (PCR) HIV-1 RNA PCR copies/ml HIV-1 RNA (PCR) log 09/21/20 09/21/20 09/21/20 Unknown Unknown Unknown WBC RBC 3.56 L Hgb 11.3 L Hct 33.2 L MCV MCH MCHC Plt Count 125 L Lymph % (Auto) Sampson % (Auto) Lymph # (Auto) Sampson # (Auto) Seg Neutrophils % Seg Neuts % (Manual) 90.0 H Lymphocytes % (Manual) 8.0 L Monocytes % (Manual) Nucleated RBC % 1.0 H Seg Neutrophils # Seg Neutrophils # Man 9.4 H Abs Lymphs (Manual) Lymphocytes # (Manual) 0.8 L PT 16.8 H INR 1.36 H APTT D-Dimer Heparin Anti-Xa Level ABG pH POC ABG pCO2 POC ABG pO2 ABG Oxyhemoglobin ABG Sodium ABG Potassium ABG Glucose Carboxyhemoglobin Sodium Potassium Chloride Carbon Dioxide BUN 83 H Creatinine 4.3 H Glucose 163 H POC Glucose Calcium Phosphorus Ferritin Total Bilirubin 2.40 H AST ALT 57 H Alkaline Phosphatase < 5 L Lactate Dehydrogenase Total Creatine Kinase Troponin T C-Reactive Protein NT-Pro-B Natriuret Pep Total Protein Albumin 1.9 L Cholesterol LDL Cholesterol Direct HDL Cholesterol PTH Intact Arterial Blood Glucose Urine WBC (Auto) Urine Creatinine Valproic Acid Heparin-induced Plt Ab Lymph Enumerat CD4/CD8 Absolute CD3 Count Absolute CD4 Count % CD8 Cells Absolute CD8 Count Absolute CD19 Count Coronavirus (PCR) HIV-1 RNA PCR copies/ml HIV-1 RNA (PCR) log 09/22/20 09/22/20 09/22/20 05:38 05:38 05:38 WBC 15.8 H RBC 3.36 L Hgb 10.8 L Hct 31.0 L MCV MCH MCHC 35 H Plt Count 68 L Lymph % (Auto) 3.1 L Sampson % (Auto) 10.7 H Lymph # (Auto) 0.5 L Sampson # (Auto) 1.7 H Seg Neutrophils % 85.9 H Seg Neuts % (Manual) Lymphocytes % (Manual) Monocytes % (Manual) Nucleated RBC % Seg Neutrophils # 13.6 H Seg Neutrophils # Man Abs Lymphs (Manual) Lymphocytes # (Manual) PT INR APTT D-Dimer 3281.49 H Heparin Anti-Xa Level ABG pH POC ABG pCO2 POC ABG pO2 ABG Oxyhemoglobin ABG Sodium ABG Potassium ABG Glucose Carboxyhemoglobin Sodium Potassium Chloride Carbon Dioxide BUN 61 H Creatinine 3.1 H Glucose 129 H POC Glucose Calcium Phosphorus Ferritin Total Bilirubin AST ALT Alkaline Phosphatase Lactate Dehydrogenase 277 H Total Creatine Kinase Troponin T C-Reactive Protein 6.60 H NT-Pro-B Natriuret Pep Total Protein Albumin Cholesterol LDL Cholesterol Direct HDL Cholesterol PTH Intact Arterial Blood Glucose Urine WBC (Auto) Urine Creatinine Valproic Acid Heparin-induced Plt Ab Lymph Enumerat CD4/CD8 Absolute CD3 Count Absolute CD4 Count % CD8 Cells Absolute CD8 Count Absolute CD19 Count Coronavirus (PCR) HIV-1 RNA PCR copies/ml HIV-1 RNA (PCR) log 09/22/20 09/22/20 09/22/20 05:38 05:44 11:26 WBC RBC Hgb Hct MCV MCH MCHC Plt Count Lymph % (Auto) Sampson % (Auto) Lymph # (Auto) Sampson # (Auto) Seg Neutrophils % Seg Neuts % (Manual) Lymphocytes % (Manual) Monocytes % (Manual) Nucleated RBC % Seg Neutrophils # Seg Neutrophils # Man Abs Lymphs (Manual) Lymphocytes # (Manual) PT INR APTT D-Dimer Heparin Anti-Xa Level ABG pH POC ABG pCO2 POC ABG pO2 ABG Oxyhemoglobin ABG Sodium ABG Potassium ABG Glucose Carboxyhemoglobin Sodium Potassium Chloride Carbon Dioxide BUN Creatinine Glucose POC Glucose 112 H 131 H Calcium Phosphorus Ferritin 927.8 H Total Bilirubin AST ALT Alkaline Phosphatase Lactate Dehydrogenase Total Creatine Kinase Troponin T C-Reactive Protein NT-Pro-B Natriuret Pep Total Protein Albumin Cholesterol LDL Cholesterol Direct HDL Cholesterol PTH Intact Arterial Blood Glucose Urine WBC (Auto) Urine Creatinine Valproic Acid Heparin-induced Plt Ab Lymph Enumerat CD4/CD8 Absolute CD3 Count Absolute CD4 Count % CD8 Cells Absolute CD8 Count Absolute CD19 Count Coronavirus (PCR) HIV-1 RNA PCR copies/ml HIV-1 RNA (PCR) log 09/22/20 09/22/20 09/22/20 15:12 15:12 15:12 WBC RBC Hgb Hct MCV MCH MCHC Plt Count Lymph % (Auto) Sampson % (Auto) Lymph # (Auto) Sampson # (Auto) Seg Neutrophils % Seg Neuts % (Manual) Lymphocytes % (Manual) Monocytes % (Manual) Nucleated RBC % Seg Neutrophils # Seg Neutrophils # Man Abs Lymphs (Manual) Lymphocytes # (Manual) PT 17.3 H INR 1.42 H APTT D-Dimer Heparin Anti-Xa Level ABG pH POC ABG pCO2 POC ABG pO2 ABG Oxyhemoglobin ABG Sodium ABG Potassium ABG Glucose Carboxyhemoglobin Sodium Potassium Chloride Carbon Dioxide BUN Creatinine 3.0 H Glucose POC Glucose Calcium Phosphorus Ferritin Total Bilirubin AST ALT Alkaline Phosphatase Lactate Dehydrogenase Total Creatine Kinase Troponin T C-Reactive Protein NT-Pro-B Natriuret Pep Total Protein Albumin Cholesterol LDL Cholesterol Direct HDL Cholesterol PTH Intact Arterial Blood Glucose Urine WBC (Auto) Urine Creatinine Valproic Acid Heparin-induced Plt Ab Weak positive H Lymph Enumerat CD4/CD8 Absolute CD3 Count Absolute CD4 Count % CD8 Cells Absolute CD8 Count Absolute CD19 Count Coronavirus (PCR) HIV-1 RNA PCR copies/ml HIV-1 RNA (PCR) log 09/22/20 09/22/20 09/23/20 16:53 23:55 04:36 WBC 14.2 H RBC 3.05 L Hgb 9.8 L Hct 28.4 L MCV MCH MCHC Plt Count 39 L Lymph % (Auto) Sampson % (Auto) Lymph # (Auto) Sampson # (Auto) Seg Neutrophils % Seg Neuts % (Manual) 91.0 H Lymphocytes % (Manual) 2.0 L Monocytes % (Manual) Nucleated RBC % Seg Neutrophils # Seg Neutrophils # Man 12.9 H Abs Lymphs (Manual) Lymphocytes # (Manual) 0.3 L PT INR APTT D-Dimer Heparin Anti-Xa Level ABG pH POC ABG pCO2 POC ABG pO2 ABG Oxyhemoglobin ABG Sodium ABG Potassium ABG Glucose Carboxyhemoglobin Sodium Potassium Chloride Carbon Dioxide BUN Creatinine Glucose POC Glucose 138 H 171 H Calcium Phosphorus Ferritin Total Bilirubin AST ALT Alkaline Phosphatase Lactate Dehydrogenase Total Creatine Kinase Troponin T C-Reactive Protein NT-Pro-B Natriuret Pep Total Protein Albumin Cholesterol LDL Cholesterol Direct HDL Cholesterol PTH Intact Arterial Blood Glucose Urine WBC (Auto) Urine Creatinine Valproic Acid Heparin-induced Plt Ab Lymph Enumerat CD4/CD8 Absolute CD3 Count Absolute CD4 Count % CD8 Cells Absolute CD8 Count Absolute CD19 Count Coronavirus (PCR) HIV-1 RNA PCR copies/ml HIV-1 RNA (PCR) log 09/23/20 09/23/20 09/23/20 04:36 05:41 11:38 WBC RBC Hgb Hct MCV MCH MCHC Plt Count Lymph % (Auto) Sampson % (Auto) Lymph # (Auto) Sampson # (Auto) Seg Neutrophils % Seg Neuts % (Manual) Lymphocytes % (Manual) Monocytes % (Manual) Nucleated RBC % Seg Neutrophils # Seg Neutrophils # Man Abs Lymphs (Manual) Lymphocytes # (Manual) PT INR APTT D-Dimer Heparin Anti-Xa Level ABG pH POC ABG pCO2 POC ABG pO2 ABG Oxyhemoglobin ABG Sodium ABG Potassium ABG Glucose Carboxyhemoglobin Sodium Potassium Chloride Carbon Dioxide BUN 76 H Creatinine 3.1 H Glucose 157 H POC Glucose 136 H 141 H Calcium Phosphorus Ferritin Total Bilirubin AST ALT Alkaline Phosphatase Lactate Dehydrogenase Total Creatine Kinase Troponin T C-Reactive Protein NT-Pro-B Natriuret Pep Total Protein Albumin Cholesterol LDL Cholesterol Direct HDL Cholesterol PTH Intact Arterial Blood Glucose Urine WBC (Auto) Urine Creatinine Valproic Acid Heparin-induced Plt Ab Lymph Enumerat CD4/CD8 Absolute CD3 Count Absolute CD4 Count % CD8 Cells Absolute CD8 Count Absolute CD19 Count Coronavirus (PCR) HIV-1 RNA PCR copies/ml HIV-1 RNA (PCR) log 09/23/20 09/23/20 09/24/20 17:09 23:51 05:00 WBC 24.2 H RBC 3.23 L Hgb 10.0 L Hct 29.7 L MCV MCH MCHC Plt Count 74 L Lymph % (Auto) Sampson % (Auto) Lymph # (Auto) Sampson # (Auto) Seg Neutrophils % Seg Neuts % (Manual) Lymphocytes % (Manual) Monocytes % (Manual) Nucleated RBC % Seg Neutrophils # Seg Neutrophils # Man Abs Lymphs (Manual) Lymphocytes # (Manual) PT INR APTT D-Dimer Heparin Anti-Xa Level ABG pH POC ABG pCO2 POC ABG pO2 ABG Oxyhemoglobin ABG Sodium ABG Potassium ABG Glucose Carboxyhemoglobin Sodium Potassium Chloride Carbon Dioxide BUN Creatinine Glucose POC Glucose 128 H 128 H Calcium Phosphorus Ferritin Total Bilirubin AST ALT Alkaline Phosphatase Lactate Dehydrogenase Total Creatine Kinase Troponin T C-Reactive Protein NT-Pro-B Natriuret Pep Total Protein Albumin Cholesterol LDL Cholesterol Direct HDL Cholesterol PTH Intact Arterial Blood Glucose Urine WBC (Auto) Urine Creatinine Valproic Acid Heparin-induced Plt Ab Lymph Enumerat CD4/CD8 Absolute CD3 Count Absolute CD4 Count % CD8 Cells Absolute CD8 Count Absolute CD19 Count Coronavirus (PCR) HIV-1 RNA PCR copies/ml HIV-1 RNA (PCR) log 09/24/20 09/24/20 09/24/20 05:00 05:00 05:00 WBC RBC Hgb Hct MCV MCH MCHC Plt Count Lymph % (Auto) Sampson % (Auto) Lymph # (Auto) Sampson # (Auto) Seg Neutrophils % Seg Neuts % (Manual) Lymphocytes % (Manual) Monocytes % (Manual) Nucleated RBC % Seg Neutrophils # Seg Neutrophils # Man Abs Lymphs (Manual) Lymphocytes # (Manual) PT INR APTT D-Dimer 1772.86 H Heparin Anti-Xa Level ABG pH POC ABG pCO2 POC ABG pO2 ABG Oxyhemoglobin ABG Sodium ABG Potassium ABG Glucose Carboxyhemoglobin Sodium Potassium Chloride 107.1 H Carbon Dioxide BUN 90 H Creatinine 3.1 H Glucose 118 H POC Glucose Calcium Phosphorus Ferritin 1190.0 H Total Bilirubin AST ALT Alkaline Phosphatase Lactate Dehydrogenase 276 H Total Creatine Kinase Troponin T C-Reactive Protein 4.20 H NT-Pro-B Natriuret Pep Total Protein Albumin Cholesterol LDL Cholesterol Direct HDL Cholesterol PTH Intact Arterial Blood Glucose Urine WBC (Auto) Urine Creatinine Valproic Acid Heparin-induced Plt Ab Lymph Enumerat CD4/CD8 Absolute CD3 Count Absolute CD4 Count % CD8 Cells Absolute CD8 Count Absolute CD19 Count Coronavirus (PCR) HIV-1 RNA PCR copies/ml HIV-1 RNA (PCR) log 09/24/20 09/24/20 09/24/20 05:12 11:25 12:09 WBC RBC Hgb Hct MCV MCH MCHC Plt Count Lymph % (Auto) Sampson % (Auto) Lymph # (Auto) Sampson # (Auto) Seg Neutrophils % Seg Neuts % (Manual) Lymphocytes % (Manual) Monocytes % (Manual) Nucleated RBC % Seg Neutrophils # Seg Neutrophils # Man Abs Lymphs (Manual) Lymphocytes # (Manual) PT INR APTT D-Dimer Heparin Anti-Xa Level ABG pH POC ABG pCO2 POC ABG pO2 ABG Oxyhemoglobin ABG Sodium ABG Potassium ABG Glucose Carboxyhemoglobin Sodium Potassium Chloride Carbon Dioxide BUN Creatinine 3.1 H Glucose POC Glucose 114 H 110 H Calcium Phosphorus Ferritin Total Bilirubin AST ALT Alkaline Phosphatase Lactate Dehydrogenase Total Creatine Kinase Troponin T C-Reactive Protein NT-Pro-B Natriuret Pep Total Protein Albumin Cholesterol LDL Cholesterol Direct HDL Cholesterol PTH Intact Arterial Blood Glucose Urine WBC (Auto) Urine Creatinine Valproic Acid Heparin-induced Plt Ab Lymph Enumerat CD4/CD8 Absolute CD3 Count Absolute CD4 Count % CD8 Cells Absolute CD8 Count Absolute CD19 Count Coronavirus (PCR) HIV-1 RNA PCR copies/ml HIV-1 RNA (PCR) log 09/24/20 09/24/20 09/24/20 12:13 12:13 17:41 WBC 20.8 H RBC 3.04 L Hgb 9.5 L Hct 28.0 L MCV MCH MCHC Plt Count 78 L Lymph % (Auto) Sampson % (Auto) Lymph # (Auto) Sampson # (Auto) Seg Neutrophils % Seg Neuts % (Manual) Lymphocytes % (Manual) Monocytes % (Manual) Nucleated RBC % Seg Neutrophils # Seg Neutrophils # Man Abs Lymphs (Manual) Lymphocytes # (Manual) PT 15.7 H INR 1.27 H APTT D-Dimer Heparin Anti-Xa Level ABG pH POC ABG pCO2 POC ABG pO2 ABG Oxyhemoglobin ABG Sodium ABG Potassium ABG Glucose Carboxyhemoglobin Sodium Potassium Chloride Carbon Dioxide BUN Creatinine Glucose POC Glucose 133 H Calcium Phosphorus Ferritin Total Bilirubin AST ALT Alkaline Phosphatase Lactate Dehydrogenase Total Creatine Kinase Troponin T C-Reactive Protein NT-Pro-B Natriuret Pep Total Protein Albumin Cholesterol LDL Cholesterol Direct HDL Cholesterol PTH Intact Arterial Blood Glucose Urine WBC (Auto) Urine Creatinine Valproic Acid Heparin-induced Plt Ab Lymph Enumerat CD4/CD8 Absolute CD3 Count Absolute CD4 Count % CD8 Cells Absolute CD8 Count Absolute CD19 Count Coronavirus (PCR) HIV-1 RNA PCR copies/ml HIV-1 RNA (PCR) log 09/24/20 09/25/20 09/25/20 23:34 06:40 06:40 WBC RBC Hgb Hct MCV MCH MCHC Plt Count Lymph % (Auto) Sampson % (Auto) Lymph # (Auto) Sampson # (Auto) Seg Neutrophils % Seg Neuts % (Manual) Lymphocytes % (Manual) Monocytes % (Manual) Nucleated RBC % Seg Neutrophils # Seg Neutrophils # Man Abs Lymphs (Manual) Lymphocytes # (Manual) PT INR APTT D-Dimer Heparin Anti-Xa Level ABG pH POC ABG pCO2 POC ABG pO2 ABG Oxyhemoglobin ABG Sodium ABG Potassium ABG Glucose Carboxyhemoglobin Sodium Potassium Chloride 109.0 H Carbon Dioxide BUN 98 H Creatinine 3.0 H 3.0 H Glucose 111 H POC Glucose 113 H Calcium Phosphorus Ferritin Total Bilirubin AST ALT Alkaline Phosphatase Lactate Dehydrogenase Total Creatine Kinase Troponin T C-Reactive Protein NT-Pro-B Natriuret Pep Total Protein Albumin Cholesterol LDL Cholesterol Direct HDL Cholesterol PTH Intact Arterial Blood Glucose Urine WBC (Auto) Urine Creatinine Valproic Acid Heparin-induced Plt Ab Lymph Enumerat CD4/CD8 Absolute CD3 Count Absolute CD4 Count % CD8 Cells Absolute CD8 Count Absolute CD19 Count Coronavirus (PCR) HIV-1 RNA PCR copies/ml HIV-1 RNA (PCR) log 09/25/20 09/25/20 09/25/20 10:45 12:45 18:03 WBC 20.7 H RBC 3.33 L Hgb 10.2 L Hct 31.3 L MCV MCH MCHC Plt Count 139 L Lymph % (Auto) Sampson % (Auto) Lymph # (Auto) Sampson # (Auto) Seg Neutrophils % Seg Neuts % (Manual) Lymphocytes % (Manual) Monocytes % (Manual) Nucleated RBC % Seg Neutrophils # Seg Neutrophils # Man Abs Lymphs (Manual) Lymphocytes # (Manual) PT INR APTT D-Dimer Heparin Anti-Xa Level ABG pH POC ABG pCO2 POC ABG pO2 ABG Oxyhemoglobin ABG Sodium ABG Potassium ABG Glucose Carboxyhemoglobin Sodium Potassium Chloride Carbon Dioxide BUN Creatinine Glucose POC Glucose 108 H 114 H Calcium Phosphorus Ferritin Total Bilirubin AST ALT Alkaline Phosphatase Lactate Dehydrogenase Total Creatine Kinase Troponin T C-Reactive Protein NT-Pro-B Natriuret Pep Total Protein Albumin Cholesterol LDL Cholesterol Direct HDL Cholesterol PTH Intact Arterial Blood Glucose Urine WBC (Auto) Urine Creatinine Valproic Acid Heparin-induced Plt Ab Lymph Enumerat CD4/CD8 Absolute CD3 Count Absolute CD4 Count % CD8 Cells Absolute CD8 Count Absolute CD19 Count Coronavirus (PCR) HIV-1 RNA PCR copies/ml HIV-1 RNA (PCR) log 09/25/20 09/26/20 09/26/20 23:29 05:00 07:06 WBC 17.0 H RBC 3.10 L Hgb 9.6 L Hct 28.8 L MCV MCH MCHC Plt Count Lymph % (Auto) Sampson % (Auto) Lymph # (Auto) Sampson # (Auto) Seg Neutrophils % Seg Neuts % (Manual) Lymphocytes % (Manual) Monocytes % (Manual) Nucleated RBC % Seg Neutrophils # Seg Neutrophils # Man Abs Lymphs (Manual) Lymphocytes # (Manual) PT INR APTT D-Dimer Heparin Anti-Xa Level ABG pH POC ABG pCO2 POC ABG pO2 ABG Oxyhemoglobin ABG Sodium ABG Potassium ABG Glucose Carboxyhemoglobin Sodium Potassium Chloride Carbon Dioxide BUN Creatinine Glucose POC Glucose 111 H 115 H Calcium Phosphorus Ferritin Total Bilirubin AST ALT Alkaline Phosphatase Lactate Dehydrogenase Total Creatine Kinase Troponin T C-Reactive Protein NT-Pro-B Natriuret Pep Total Protein Albumin Cholesterol LDL Cholesterol Direct HDL Cholesterol PTH Intact Arterial Blood Glucose Urine WBC (Auto) Urine Creatinine Valproic Acid Heparin-induced Plt Ab Lymph Enumerat CD4/CD8 Absolute CD3 Count Absolute CD4 Count % CD8 Cells Absolute CD8 Count Absolute CD19 Count Coronavirus (PCR) HIV-1 RNA PCR copies/ml HIV-1 RNA (PCR) log 09/26/20 09/26/20 09/27/20 07:06 17:26 04:00 WBC RBC Hgb Hct MCV MCH MCHC Plt Count Lymph % (Auto) Sampson % (Auto) Lymph # (Auto) Sampson # (Auto) Seg Neutrophils % Seg Neuts % (Manual) Lymphocytes % (Manual) Monocytes % (Manual) Nucleated RBC % Seg Neutrophils # Seg Neutrophils # Man Abs Lymphs (Manual) Lymphocytes # (Manual) PT INR APTT D-Dimer Heparin Anti-Xa Level ABG pH POC ABG pCO2 POC ABG pO2 ABG Oxyhemoglobin ABG Sodium ABG Potassium ABG Glucose Carboxyhemoglobin Sodium Potassium Chloride Carbon Dioxide BUN 69 H 67 H Creatinine 2.2 H 2.3 H Glucose 107 H 121 H POC Glucose 124 H Calcium Phosphorus Ferritin Total Bilirubin AST ALT Alkaline Phosphatase Lactate Dehydrogenase Total Creatine Kinase Troponin T C-Reactive Protein NT-Pro-B Natriuret Pep Total Protein Albumin Cholesterol LDL Cholesterol Direct HDL Cholesterol PTH Intact Arterial Blood Glucose Urine WBC (Auto) Urine Creatinine Valproic Acid Heparin-induced Plt Ab Lymph Enumerat CD4/CD8 Absolute CD3 Count Absolute CD4 Count % CD8 Cells Absolute CD8 Count Absolute CD19 Count Coronavirus (PCR) HIV-1 RNA PCR copies/ml HIV-1 RNA (PCR) log 09/27/20 09/27/20 09/27/20 04:00 05:00 17:11 WBC 14.6 H RBC 2.72 L Hgb 8.6 L Hct 25.8 L MCV 95 H MCH MCHC Plt Count Lymph % (Auto) 4.3 L Sampson % (Auto) Lymph # (Auto) 0.6 L Sampson # (Auto) 0.9 H Seg Neutrophils % 89.6 H Seg Neuts % (Manual) Lymphocytes % (Manual) Monocytes % (Manual) Nucleated RBC % Seg Neutrophils # 13.1 H Seg Neutrophils # Man Abs Lymphs (Manual) Lymphocytes # (Manual) PT INR APTT D-Dimer Heparin Anti-Xa Level ABG pH POC ABG pCO2 POC ABG pO2 ABG Oxyhemoglobin ABG Sodium ABG Potassium ABG Glucose Carboxyhemoglobin Sodium Potassium Chloride Carbon Dioxide BUN Creatinine 2.4 H Glucose POC Glucose 132 H Calcium Phosphorus Ferritin Total Bilirubin AST ALT Alkaline Phosphatase Lactate Dehydrogenase Total Creatine Kinase Troponin T C-Reactive Protein NT-Pro-B Natriuret Pep Total Protein Albumin Cholesterol LDL Cholesterol Direct HDL Cholesterol PTH Intact Arterial Blood Glucose Urine WBC (Auto) Urine Creatinine Valproic Acid Heparin-induced Plt Ab Lymph Enumerat CD4/CD8 Absolute CD3 Count Absolute CD4 Count % CD8 Cells Absolute CD8 Count Absolute CD19 Count Coronavirus (PCR) HIV-1 RNA PCR copies/ml HIV-1 RNA (PCR) log 09/28/20 09/28/20 09/29/20 04:46 04:46 04:45 WBC 14.6 H RBC 2.66 L Hgb 8.4 L Hct 25.3 L MCV 95 H MCH MCHC Plt Count Lymph % (Auto) Sampson % (Auto) Lymph # (Auto) Sampson # (Auto) Seg Neutrophils % Seg Neuts % (Manual) Lymphocytes % (Manual) Monocytes % (Manual) Nucleated RBC % Seg Neutrophils # Seg Neutrophils # Man Abs Lymphs (Manual) Lymphocytes # (Manual) PT INR APTT D-Dimer Heparin Anti-Xa Level ABG pH POC ABG pCO2 POC ABG pO2 ABG Oxyhemoglobin ABG Sodium ABG Potassium ABG Glucose Carboxyhemoglobin Sodium Potassium Chloride Carbon Dioxide BUN 71 H 63 H Creatinine 2.3 H 2.2 H Glucose 105 H POC Glucose Calcium Phosphorus Ferritin Total Bilirubin AST ALT Alkaline Phosphatase Lactate Dehydrogenase Total Creatine Kinase Troponin T C-Reactive Protein NT-Pro-B Natriuret Pep Total Protein Albumin Cholesterol LDL Cholesterol Direct HDL Cholesterol PTH Intact Arterial Blood Glucose Urine WBC (Auto) Urine Creatinine Valproic Acid Heparin-induced Plt Ab Lymph Enumerat CD4/CD8 Absolute CD3 Count Absolute CD4 Count % CD8 Cells Absolute CD8 Count Absolute CD19 Count Coronavirus (PCR) HIV-1 RNA PCR copies/ml HIV-1 RNA (PCR) log 09/29/20 09/29/20 09/29/20 04:45 05:43 17:50 WBC RBC 2.92 L Hgb 9.6 L Hct 28.1 L MCV 96 H MCH 33 H MCHC Plt Count Lymph % (Auto) Sampson % (Auto) Lymph # (Auto) Sampson # (Auto) Seg Neutrophils % Seg Neuts % (Manual) Lymphocytes % (Manual) Monocytes % (Manual) Nucleated RBC % Seg Neutrophils # Seg Neutrophils # Man Abs Lymphs (Manual) Lymphocytes # (Manual) PT INR APTT D-Dimer Heparin Anti-Xa Level ABG pH POC ABG pCO2 POC ABG pO2 ABG Oxyhemoglobin ABG Sodium ABG Potassium ABG Glucose Carboxyhemoglobin Sodium Potassium Chloride Carbon Dioxide BUN Creatinine Glucose POC Glucose 69 L 132 H Calcium Phosphorus Ferritin Total Bilirubin AST ALT Alkaline Phosphatase Lactate Dehydrogenase Total Creatine Kinase Troponin T C-Reactive Protein NT-Pro-B Natriuret Pep Total Protein Albumin Cholesterol LDL Cholesterol Direct HDL Cholesterol PTH Intact Arterial Blood Glucose Urine WBC (Auto) Urine Creatinine Valproic Acid Heparin-induced Plt Ab Lymph Enumerat CD4/CD8 Absolute CD3 Count Absolute CD4 Count % CD8 Cells Absolute CD8 Count Absolute CD19 Count Coronavirus (PCR) HIV-1 RNA PCR copies/ml HIV-1 RNA (PCR) log 09/30/20 09/30/20 10/01/20 04:47 04:47 07:16 WBC RBC 2.47 L Hgb 8.1 L Hct 23.9 L MCV 97 H MCH 33 H MCHC Plt Count Lymph % (Auto) Sampson % (Auto) Lymph # (Auto) Sampson # (Auto) Seg Neutrophils % Seg Neuts % (Manual) Lymphocytes % (Manual) Monocytes % (Manual) Nucleated RBC % Seg Neutrophils # Seg Neutrophils # Man Abs Lymphs (Manual) Lymphocytes # (Manual) PT INR APTT D-Dimer Heparin Anti-Xa Level ABG pH POC ABG pCO2 POC ABG pO2 ABG Oxyhemoglobin ABG Sodium ABG Potassium ABG Glucose Carboxyhemoglobin Sodium Potassium Chloride Carbon Dioxide 31 H BUN 63 H 58 H Creatinine 2.1 H 2.2 H Glucose POC Glucose Calcium Phosphorus Ferritin Total Bilirubin AST ALT Alkaline Phosphatase Lactate Dehydrogenase Total Creatine Kinase Troponin T C-Reactive Protein NT-Pro-B Natriuret Pep Total Protein 5.9 L Albumin 2.2 L Cholesterol LDL Cholesterol Direct HDL Cholesterol PTH Intact Arterial Blood Glucose Urine WBC (Auto) Urine Creatinine Valproic Acid Heparin-induced Plt Ab Lymph Enumerat CD4/CD8 Absolute CD3 Count Absolute CD4 Count % CD8 Cells Absolute CD8 Count Absolute CD19 Count Coronavirus (PCR) HIV-1 RNA PCR copies/ml HIV-1 RNA (PCR) log 10/01/20 10/02/20 10/03/20 08:30 05:10 08:12 WBC RBC Hgb Hct MCV MCH MCHC Plt Count Lymph % (Auto) Sampson % (Auto) Lymph # (Auto) Sampson # (Auto) Seg Neutrophils % Seg Neuts % (Manual) Lymphocytes % (Manual) Monocytes % (Manual) Nucleated RBC % Seg Neutrophils # Seg Neutrophils # Man Abs Lymphs (Manual) Lymphocytes # (Manual) PT INR APTT D-Dimer Heparin Anti-Xa Level ABG pH POC ABG pCO2 POC ABG pO2 ABG Oxyhemoglobin ABG Sodium ABG Potassium ABG Glucose Carboxyhemoglobin Sodium Potassium 5.4 H D Chloride Carbon Dioxide BUN 48 H 48 H Creatinine 2.0 H 2.2 H Glucose POC Glucose Calcium 8.0 L Phosphorus Ferritin Total Bilirubin AST ALT Alkaline Phosphatase Lactate Dehydrogenase Total Creatine Kinase Troponin T C-Reactive Protein NT-Pro-B Natriuret Pep Total Protein Albumin Cholesterol LDL Cholesterol Direct HDL Cholesterol PTH Intact Arterial Blood Glucose Urine WBC (Auto) Urine Creatinine Valproic Acid Heparin-induced Plt Ab Lymph Enumerat CD4/CD8 Absolute CD3 Count Absolute CD4 Count % CD8 Cells Absolute CD8 Count Absolute CD19 Count Coronavirus (PCR) Positive A HIV-1 RNA PCR copies/ml HIV-1 RNA (PCR) log 10/03/20 08:12 WBC RBC Hgb Hct MCV MCH MCHC Plt Count Lymph % (Auto) Sampson % (Auto) Lymph # (Auto) Sampson # (Auto) Seg Neutrophils % Seg Neuts % (Manual) Lymphocytes % (Manual) Monocytes % (Manual) Nucleated RBC % Seg Neutrophils # Seg Neutrophils # Man Abs Lymphs (Manual) Lymphocytes # (Manual) PT INR APTT D-Dimer Heparin Anti-Xa Level ABG pH POC ABG pCO2 POC ABG pO2 ABG Oxyhemoglobin ABG Sodium ABG Potassium ABG Glucose Carboxyhemoglobin Sodium Potassium Chloride Carbon Dioxide BUN Creatinine Glucose POC Glucose Calcium Phosphorus Ferritin Total Bilirubin AST ALT Alkaline Phosphatase Lactate Dehydrogenase Total Creatine Kinase Troponin T C-Reactive Protein NT-Pro-B Natriuret Pep Total Protein Albumin Cholesterol LDL Cholesterol Direct HDL Cholesterol PTH Intact Arterial Blood Glucose Urine WBC (Auto) Urine Creatinine Valproic Acid 17.8 L Heparin-induced Plt Ab Lymph Enumerat CD4/CD8 Absolute CD3 Count Absolute CD4 Count % CD8 Cells Absolute CD8 Count Absolute CD19 Count Coronavirus (PCR) HIV-1 RNA PCR copies/ml HIV-1 RNA (PCR) log
--- NOTE | 2020-10-03 15:17 | Progress Note ---
Assessment and Plan Acute hypoxemic respiratory failure. Atrial fibrillation with rapid ventricular response. Gram negative bacteremia Acute congestive heart failure exacerbation. Acute on chronic kidney injury. Anemia that is microcytic. Coagulopathy appears to be acquired. Respiratory alkalosis. Mild metabolic acidosis. Possible severe sepsis with shock due to a urinary tract infection. Urinary tract infection (i do feel that despite his CHF history he is septic now and with relative IVVD and will benefit from gentle hydration acutely - no longer requiring dialysis - vascath discontinued - continue rate control per cardiology - continue anticoagulation with Eliquis - WHEAT GROWER evaluation and advance diet as tolerated (pureed with thin liquids) - s/p AB's per ID recommendations - continue care as below otherwise; - continue to wean supplemental oxygen for target O2 sat's > 92% acutely - Aspiration precautions - prn bronchodilators with pulmonary hygiene per RT - continue accuchecks with glycemic control per SSI for target blood glucose of < 180 mg/dL; avoid hypoglycemia - avoid nephrotoxins, renally dose all medications - continue to avoid benzodiazepine's, reduce the possibility of delirium - prn analgesia per pain score - Maintenance of sleep-wake cycle, avoid delirium - G.I. & VTE prophylaxis - PT/OT/ROM exercises - continue mobility protocols for pressure ulcer prophylaxis - Monitor hemodynamics closely - continue other care per attending / other consultants - discharge planning ongoing concurrently COVID SPECIFIC INTERVENTIONS - Remdesivir as per ID/Pulmonary developed protocols (not given due to LOLI) - systemic steroids for severe COVID-19 infection (s/p Decadron) - follow repeat COVID tests results - zinc and vitamin C supplementation - Monitor inflammatory markers per facility protocol - ferritin, Ddimer, CRP - therapeutic anticoagulation per system Protocol based on d-dimer and clinical considerations - Continue contact and airborne isolation ... improved .... Re-evaluate in am & prn Subjective Date of service: 10/02/20 Principal diagnosis: Acute Hypoxemic Resp Failure; COVID-19 infxn; Septic Shock; A-Fib with RVR Interval history: Patient is seen today for: Acute hypoxemic respiratory failure; A-fib with RVR; AE-CHF; LOLI on CKD; Severe sepsis with shock; UTI Seen and examined at bedside; 24hour events reviewed; nursing and respiratory care staff consulted; no adverse overnight events reported to me; resting peacefully in bed; less confused; on room air; no emesis or overt aspiration and no high grade fevers Objective Vital Signs - 12hr 10/02/20 10/02/20 10/02/20 04:09 08:53 09:21 Temperature 97.9 F 97.5 F L Respiratory 16 20 Rate Blood Pressure 117/82 87/60 O2 Sat by Pulse 97 Oximetry 10/02/20 10/02/20 09:25 13:06 Temperature Respiratory 20 Rate Blood Pressure 87/60 O2 Sat by Pulse Oximetry Constitutional: no acute distress, alert, other (elderly male without increased respiratory effort at rest) Eyes: non-icteric ENT: oropharynx moist Neck: supple, no lymphadenopathy, no JVD Effort: mildly labored Ascultation: Bilateral: rhonchi Percussion: Bilateral: not dull Cardiovascular: irregular rhythm Gastrointestinal: normoactive bowel sounds, soft, non-tender, non-distended Integumentary: normal Extremities: no cyanosis, no edema, pulses normal, no ischemia or petechiae Neurologic: non-focal exam (grossly), pupils equal and round, CN II-XII normal, motor strength normal and, other (mild delirium) Psychiatric: other (mild delirium) CBC and BMP: 09/30/20 04:47 10/03/20 08:12 ABG, PT/INR, D-dimer: ABG ABG pH 7.508 (7.320-7.450) H 09/17/20 10:28 POC ABG pCO2 22.8 mmHg (32.0-48.0) L 09/17/20 10:28 POC ABG pO2 66.8 mmHg (83-108) L 09/17/20 10:28 POC ABG HCO3 17.7 09/17/20 10:28 ABG O2 Saturation 93.4 (0-100) 09/17/20 10:28 PT/INR, D-dimer PT 15.7 Sec. (12.2-14.9) H 09/24/20 12:13 INR 1.27 (0.87-1.13) H 09/24/20 12:13 D-Dimer 1772.86 ng/mlDDU (0-234) H 09/24/20 05:00 Abnormal lab findings: Abnormal Labs 09/17/20 09/17/20 09/17/20 10:28 10:47 10:47 WBC 11.1 H RBC 3.44 L Hgb 11.2 L Hct 32.8 L MCV 95 H MCH MCHC Plt Count Lymph % (Auto) [place] % (Auto) Lymph # (Auto) [place] # (Auto) Seg Neutrophils % Seg Neuts % (Manual) Lymphocytes % (Manual) 4.0 L Monocytes % (Manual) Nucleated RBC % Seg Neutrophils # Seg Neutrophils # Man 10.7 H Abs Lymphs (Manual) Lymphocytes # (Manual) 0.4 L PT 32.9 H INR 3.16 H APTT 51.1 H D-Dimer Heparin Anti-Xa Level ABG pH 7.508 H POC ABG pCO2 22.8 L POC ABG pO2 66.8 L ABG Oxyhemoglobin 92.7 L ABG Sodium 127.4 L ABG Potassium 4.7 H ABG Glucose 121 H Carboxyhemoglobin 0.4 L Sodium Chloride Carbon Dioxide BUN Creatinine Glucose POC Glucose Calcium Phosphorus Ferritin Total Bilirubin AST ALT Alkaline Phosphatase Lactate Dehydrogenase Total Creatine Kinase Troponin T C-Reactive Protein NT-Pro-B Natriuret Pep Total Protein Albumin Cholesterol LDL Cholesterol Direct HDL Cholesterol PTH Intact Arterial Blood Glucose 121 H Urine WBC (Auto) Urine Creatinine Heparin-induced Plt Ab Lymph Enumerat CD4/CD8 Absolute CD3 Count Absolute CD4 Count % CD8 Cells Absolute CD8 Count Absolute CD19 Count Coronavirus (PCR) HIV-1 RNA PCR copies/ml HIV-1 RNA (PCR) log 09/17/20 09/17/20 09/17/20 10:47 10:47 13:54 WBC RBC Hgb Hct MCV MCH MCHC Plt Count Lymph % (Auto) [place] % (Auto) Lymph # (Auto) [place] # (Auto) Seg Neutrophils % Seg Neuts % (Manual) Lymphocytes % (Manual) Monocytes % (Manual) Nucleated RBC % Seg Neutrophils # Seg Neutrophils # Man Abs Lymphs (Manual) Lymphocytes # (Manual) PT INR APTT D-Dimer Heparin Anti-Xa Level ABG pH POC ABG pCO2 POC ABG pO2 ABG Oxyhemoglobin ABG Sodium ABG Potassium ABG Glucose Carboxyhemoglobin Sodium 125 L Chloride 95.3 L Carbon Dioxide 17 L BUN 64 H Creatinine 4.6 H D Glucose 104 H POC Glucose Calcium Phosphorus Ferritin Total Bilirubin AST 69 H ALT Alkaline Phosphatase Lactate Dehydrogenase Total Creatine Kinase Troponin T 0.061 H D 0.058 H C-Reactive Protein NT-Pro-B Natriuret Pep 49480 H Total Protein Albumin 1.9 L Cholesterol 48 L LDL Cholesterol Direct 4 L HDL Cholesterol 9 L PTH Intact Arterial Blood Glucose Urine WBC (Auto) Urine Creatinine Heparin-induced Plt Ab Lymph Enumerat CD4/CD8 Absolute CD3 Count Absolute CD4 Count % CD8 Cells Absolute CD8 Count Absolute CD19 Count Coronavirus (PCR) HIV-1 RNA PCR copies/ml HIV-1 RNA (PCR) log 09/17/20 09/17/20 09/17/20 16:36 17:35 17:35 WBC RBC 3.25 L Hgb 10.7 L Hct 31.1 L MCV 96 H MCH 33 H MCHC Plt Count Lymph % (Auto) [place] % (Auto) Lymph # (Auto) [place] # (Auto) Seg Neutrophils % Seg Neuts % (Manual) Lymphocytes % (Manual) Monocytes % (Manual) Nucleated RBC % Seg Neutrophils # Seg Neutrophils # Man Abs Lymphs (Manual) Lymphocytes # (Manual) PT 31.9 H INR 3.04 H APTT 50.9 H D-Dimer Heparin Anti-Xa Level ABG pH POC ABG pCO2 POC ABG pO2 ABG Oxyhemoglobin ABG Sodium ABG Potassium ABG Glucose Carboxyhemoglobin Sodium Chloride Carbon Dioxide BUN Creatinine Glucose POC Glucose Calcium Phosphorus Ferritin Total Bilirubin AST ALT Alkaline Phosphatase Lactate Dehydrogenase Total Creatine Kinase Troponin T 0.057 H C-Reactive Protein NT-Pro-B Natriuret Pep Total Protein Albumin Cholesterol LDL Cholesterol Direct HDL Cholesterol PTH Intact Arterial Blood Glucose Urine WBC (Auto) Urine Creatinine Heparin-induced Plt Ab Lymph Enumerat CD4/CD8 Absolute CD3 Count Absolute CD4 Count % CD8 Cells Absolute CD8 Count Absolute CD19 Count Coronavirus (PCR) HIV-1 RNA PCR copies/ml HIV-1 RNA (PCR) log 09/17/20 09/18/20 09/18/20 17:35 03:19 03:19 WBC RBC 3.32 L Hgb 10.9 L Hct 32.0 L MCV 96 H MCH 33 H MCHC Plt Count 138 L Lymph % (Auto) [place] % (Auto) Lymph # (Auto) [place] # (Auto) Seg Neutrophils % Seg Neuts % (Manual) 95.0 H Lymphocytes % (Manual) 3.0 L Monocytes % (Manual) Nucleated RBC % Seg Neutrophils # Seg Neutrophils # Man 8.1 H Abs Lymphs (Manual) Lymphocytes # (Manual) 0.3 L PT INR APTT D-Dimer Heparin Anti-Xa Level ABG pH POC ABG pCO2 POC ABG pO2 ABG Oxyhemoglobin ABG Sodium ABG Potassium ABG Glucose Carboxyhemoglobin Sodium Chloride Carbon Dioxide 16 L BUN 70 H Creatinine 4.6 H 4.7 H Glucose 104 H POC Glucose Calcium 8.2 L Phosphorus Ferritin Total Bilirubin 1.60 H AST 128 H ALT 67 H Alkaline Phosphatase Lactate Dehydrogenase Total Creatine Kinase Troponin T C-Reactive Protein NT-Pro-B Natriuret Pep Total Protein 5.2 L D Albumin 2.5 L Cholesterol LDL Cholesterol Direct HDL Cholesterol PTH Intact Arterial Blood Glucose Urine WBC (Auto) Urine Creatinine Heparin-induced Plt Ab Lymph Enumerat CD4/CD8 Absolute CD3 Count Absolute CD4 Count % CD8 Cells Absolute CD8 Count Absolute CD19 Count Coronavirus (PCR) HIV-1 RNA PCR copies/ml HIV-1 RNA (PCR) log 09/18/20 09/18/20 09/18/20 09:39 12:00 12:00 WBC RBC Hgb Hct MCV MCH MCHC Plt Count Lymph % (Auto) [place] % (Auto) Lymph # (Auto) [place] # (Auto) Seg Neutrophils % Seg Neuts % (Manual) Lymphocytes % (Manual) Monocytes % (Manual) Nucleated RBC % Seg Neutrophils # Seg Neutrophils # Man Abs Lymphs (Manual) Lymphocytes # (Manual) PT INR APTT D-Dimer Heparin Anti-Xa Level ABG pH POC ABG pCO2 POC ABG pO2 ABG Oxyhemoglobin ABG Sodium ABG Potassium ABG Glucose Carboxyhemoglobin Sodium Chloride Carbon Dioxide BUN Creatinine Glucose POC Glucose Calcium Phosphorus Ferritin Total Bilirubin AST ALT Alkaline Phosphatase Lactate Dehydrogenase Total Creatine Kinase Troponin T C-Reactive Protein NT-Pro-B Natriuret Pep Total Protein Albumin Cholesterol LDL Cholesterol Direct HDL Cholesterol PTH Intact Arterial Blood Glucose Urine WBC (Auto) 71.0 H Urine Creatinine 61.0 H Heparin-induced Plt Ab Lymph Enumerat CD4/CD8 Absolute CD3 Count Absolute CD4 Count % CD8 Cells Absolute CD8 Count Absolute CD19 Count Coronavirus (PCR) Positive A HIV-1 RNA PCR copies/ml HIV-1 RNA (PCR) log 09/18/20 09/18/20 09/18/20 15:07 15:07 18:33 WBC RBC Hgb 10.7 L Hct 31.3 L MCV MCH MCHC Plt Count Lymph % (Auto) [place] % (Auto) Lymph # (Auto) [place] # (Auto) Seg Neutrophils % Seg Neuts % (Manual) Lymphocytes % (Manual) Monocytes % (Manual) Nucleated RBC % Seg Neutrophils # Seg Neutrophils # Man Abs Lymphs (Manual) Lymphocytes # (Manual) PT 20.3 H INR 1.73 H APTT 40.8 H D-Dimer Heparin Anti-Xa Level 1.09 H ABG pH POC ABG pCO2 POC ABG pO2 ABG Oxyhemoglobin ABG Sodium ABG Potassium ABG Glucose Carboxyhemoglobin Sodium Chloride Carbon Dioxide BUN Creatinine Glucose POC Glucose Calcium Phosphorus Ferritin Total Bilirubin AST ALT Alkaline Phosphatase Lactate Dehydrogenase Total Creatine Kinase Troponin T C-Reactive Protein NT-Pro-B Natriuret Pep Total Protein Albumin Cholesterol LDL Cholesterol Direct HDL Cholesterol PTH Intact Arterial Blood Glucose Urine WBC (Auto) Urine Creatinine Heparin-induced Plt Ab Lymph Enumerat CD4/CD8 Absolute CD3 Count Absolute CD4 Count % CD8 Cells Absolute CD8 Count Absolute CD19 Count Coronavirus (PCR) HIV-1 RNA PCR copies/ml HIV-1 RNA (PCR) log 09/19/20 09/19/20 09/19/20 03:30 03:30 03:30 WBC RBC 3.29 L Hgb 10.9 L Hct 30.9 L MCV MCH 33 H MCHC 35 H Plt Count Lymph % (Auto) [place] % (Auto) Lymph # (Auto) [place] # (Auto) Seg Neutrophils % Seg Neuts % (Manual) Lymphocytes % (Manual) Monocytes % (Manual) Nucleated RBC % Seg Neutrophils # Seg Neutrophils # Man Abs Lymphs (Manual) Lymphocytes # (Manual) PT INR APTT D-Dimer Heparin Anti-Xa Level ABG pH POC ABG pCO2 POC ABG pO2 ABG Oxyhemoglobin ABG Sodium ABG Potassium ABG Glucose Carboxyhemoglobin Sodium 133 L Chloride Carbon Dioxide 17 L BUN 94 H Creatinine 5.0 H Glucose 120 H POC Glucose Calcium Phosphorus 6.30 H Ferritin Total Bilirubin 2.40 H AST 163 H ALT 109 H Alkaline Phosphatase 160 H Lactate Dehydrogenase Total Creatine Kinase 20 L Troponin T C-Reactive Protein NT-Pro-B Natriuret Pep Total Protein 6.2 L Albumin 2.0 L Cholesterol LDL Cholesterol Direct HDL Cholesterol PTH Intact 161.4 H Arterial Blood Glucose Urine WBC (Auto) Urine Creatinine Heparin-induced Plt Ab Lymph Enumerat CD4/CD8 Absolute CD3 Count Absolute CD4 Count % CD8 Cells Absolute CD8 Count Absolute CD19 Count Coronavirus (PCR) HIV-1 RNA PCR copies/ml HIV-1 RNA (PCR) log 09/19/20 09/19/20 09/19/20 06:35 13:35 13:35 WBC RBC Hgb Hct MCV MCH MCHC Plt Count Lymph % (Auto) [place] % (Auto) Lymph # (Auto) [place] # (Auto) Seg Neutrophils % Seg Neuts % (Manual) Lymphocytes % (Manual) Monocytes % (Manual) Nucleated RBC % Seg Neutrophils # Seg Neutrophils # Man Abs Lymphs (Manual) 223 L Lymphocytes # (Manual) PT INR APTT D-Dimer Heparin Anti-Xa Level ABG pH POC ABG pCO2 POC ABG pO2 ABG Oxyhemoglobin ABG Sodium ABG Potassium ABG Glucose Carboxyhemoglobin Sodium Chloride Carbon Dioxide BUN Creatinine Glucose POC Glucose 123 H Calcium Phosphorus Ferritin Total Bilirubin AST ALT Alkaline Phosphatase Lactate Dehydrogenase Total Creatine Kinase Troponin T C-Reactive Protein NT-Pro-B Natriuret Pep Total Protein Albumin Cholesterol LDL Cholesterol Direct HDL Cholesterol PTH Intact Arterial Blood Glucose Urine WBC (Auto) Urine Creatinine Heparin-induced Plt Ab Lymph Enumerat CD4/CD8 0.70 L Absolute CD3 Count 175 L Absolute CD4 Count 70 L % CD8 Cells 45 H Absolute CD8 Count 101 L Absolute CD19 Count 26 L Coronavirus (PCR) HIV-1 RNA PCR copies/ml 67 H HIV-1 RNA (PCR) log 1.83 H 09/19/20 09/20/20 09/20/20 23:37 04:00 04:00 WBC RBC 3.43 L Hgb 11.1 L Hct 32.2 L MCV MCH MCHC Plt Count 131 L Lymph % (Auto) [place] % (Auto) Lymph # (Auto) [place] # (Auto) Seg Neutrophils % Seg Neuts % (Manual) 88.0 H Lymphocytes % (Manual) 3.0 L Monocytes % (Manual) 9.0 H Nucleated RBC % Seg Neutrophils # Seg Neutrophils # Man 8.2 H Abs Lymphs (Manual) Lymphocytes # (Manual) 0.3 L PT INR APTT D-Dimer Heparin Anti-Xa Level 0.10 L ABG pH POC ABG pCO2 POC ABG pO2 ABG Oxyhemoglobin ABG Sodium ABG Potassium ABG Glucose Carboxyhemoglobin Sodium Chloride Carbon Dioxide BUN Creatinine Glucose POC Glucose 135 H Calcium Phosphorus Ferritin Total Bilirubin AST ALT Alkaline Phosphatase Lactate Dehydrogenase Total Creatine Kinase Troponin T C-Reactive Protein NT-Pro-B Natriuret Pep Total Protein Albumin Cholesterol LDL Cholesterol Direct HDL Cholesterol PTH Intact Arterial Blood Glucose Urine WBC (Auto) Urine Creatinine Heparin-induced Plt Ab Lymph Enumerat CD4/CD8 Absolute CD3 Count Absolute CD4 Count % CD8 Cells Absolute CD8 Count Absolute CD19 Count Coronavirus (PCR) HIV-1 RNA PCR copies/ml HIV-1 RNA (PCR) log 09/20/20 09/20/20 09/20/20 04:00 05:37 11:20 WBC RBC Hgb Hct MCV MCH MCHC Plt Count Lymph % (Auto) [place] % (Auto) Lymph # (Auto) [place] # (Auto) Seg Neutrophils % Seg Neuts % (Manual) Lymphocytes % (Manual) Monocytes % (Manual) Nucleated RBC % Seg Neutrophils # Seg Neutrophils # Man Abs Lymphs (Manual) Lymphocytes # (Manual) PT INR APTT D-Dimer Heparin Anti-Xa Level ABG pH POC ABG pCO2 POC ABG pO2 ABG Oxyhemoglobin ABG Sodium ABG Potassium ABG Glucose Carboxyhemoglobin Sodium Chloride Carbon Dioxide 16 L BUN 119 H Creatinine 6.2 H Glucose 136 H POC Glucose 137 H 108 H Calcium Phosphorus Ferritin Total Bilirubin AST ALT Alkaline Phosphatase Lactate Dehydrogenase Total Creatine Kinase Troponin T C-Reactive Protein NT-Pro-B Natriuret Pep Total Protein Albumin Cholesterol LDL Cholesterol Direct HDL Cholesterol PTH Intact Arterial Blood Glucose Urine WBC (Auto) Urine Creatinine Heparin-induced Plt Ab Lymph Enumerat CD4/CD8 Absolute CD3 Count Absolute CD4 Count % CD8 Cells Absolute CD8 Count Absolute CD19 Count Coronavirus (PCR) HIV-1 RNA PCR copies/ml HIV-1 RNA (PCR) log 09/20/20 09/20/20 09/20/20 17:10 17:10 17:10 WBC RBC Hgb Hct MCV MCH MCHC Plt Count Lymph % (Auto) [place] % (Auto) Lymph # (Auto) [place] # (Auto) Seg Neutrophils % Seg Neuts % (Manual) Lymphocytes % (Manual) Monocytes % (Manual) Nucleated RBC % Seg Neutrophils # Seg Neutrophils # Man Abs Lymphs (Manual) Lymphocytes # (Manual) PT INR APTT D-Dimer 4271.58 H Heparin Anti-Xa Level ABG pH POC ABG pCO2 POC ABG pO2 ABG Oxyhemoglobin ABG Sodium ABG Potassium ABG Glucose Carboxyhemoglobin Sodium Chloride Carbon Dioxide BUN Creatinine 6.0 H Glucose POC Glucose Calcium Phosphorus Ferritin 696.6 H Total Bilirubin AST ALT Alkaline Phosphatase Lactate Dehydrogenase Total Creatine Kinase Troponin T C-Reactive Protein NT-Pro-B Natriuret Pep Total Protein Albumin Cholesterol LDL Cholesterol Direct HDL Cholesterol PTH Intact Arterial Blood Glucose Urine WBC (Auto) Urine Creatinine Heparin-induced Plt Ab Lymph Enumerat CD4/CD8 Absolute CD3 Count Absolute CD4 Count % CD8 Cells Absolute CD8 Count Absolute CD19 Count Coronavirus (PCR) HIV-1 RNA PCR copies/ml HIV-1 RNA (PCR) log 09/20/20 09/20/20 09/20/20 17:10 18:21 23:14 WBC RBC Hgb Hct MCV MCH MCHC Plt Count Lymph % (Auto) [place] % (Auto) Lymph # (Auto) [place] # (Auto) Seg Neutrophils % Seg Neuts % (Manual) Lymphocytes % (Manual) Monocytes % (Manual) Nucleated RBC % Seg Neutrophils # Seg Neutrophils # Man Abs Lymphs (Manual) Lymphocytes # (Manual) PT INR APTT D-Dimer Heparin Anti-Xa Level ABG pH POC ABG pCO2 POC ABG pO2 ABG Oxyhemoglobin ABG Sodium ABG Potassium ABG Glucose Carboxyhemoglobin Sodium Chloride Carbon Dioxide BUN Creatinine Glucose POC Glucose 129 H 170 H Calcium Phosphorus Ferritin Total Bilirubin AST ALT Alkaline Phosphatase Lactate Dehydrogenase 209 H Total Creatine Kinase Troponin T C-Reactive Protein 10.60 H NT-Pro-B Natriuret Pep Total Protein Albumin Cholesterol LDL Cholesterol Direct HDL Cholesterol PTH Intact Arterial Blood Glucose Urine WBC (Auto) Urine Creatinine Heparin-induced Plt Ab Lymph Enumerat CD4/CD8 Absolute CD3 Count Absolute CD4 Count % CD8 Cells Absolute CD8 Count Absolute CD19 Count Coronavirus (PCR) HIV-1 RNA PCR copies/ml HIV-1 RNA (PCR) log 09/21/20 09/21/20 09/21/20 05:35 17:09 23:18 WBC RBC Hgb Hct MCV MCH MCHC Plt Count Lymph % (Auto) [place] % (Auto) Lymph # (Auto) [place] # (Auto) Seg Neutrophils % Seg Neuts % (Manual) Lymphocytes % (Manual) Monocytes % (Manual) Nucleated RBC % Seg Neutrophils # Seg Neutrophils # Man Abs Lymphs (Manual) Lymphocytes # (Manual) PT INR APTT D-Dimer Heparin Anti-Xa Level ABG pH POC ABG pCO2 POC ABG pO2 ABG Oxyhemoglobin ABG Sodium ABG Potassium ABG Glucose Carboxyhemoglobin Sodium Chloride Carbon Dioxide BUN Creatinine Glucose POC Glucose 170 H 140 H 139 H Calcium Phosphorus Ferritin Total Bilirubin AST ALT Alkaline Phosphatase Lactate Dehydrogenase Total Creatine Kinase Troponin T C-Reactive Protein NT-Pro-B Natriuret Pep Total Protein Albumin Cholesterol LDL Cholesterol Direct HDL Cholesterol PTH Intact Arterial Blood Glucose Urine WBC (Auto) Urine Creatinine Heparin-induced Plt Ab Lymph Enumerat CD4/CD8 Absolute CD3 Count Absolute CD4 Count % CD8 Cells Absolute CD8 Count Absolute CD19 Count Coronavirus (PCR) HIV-1 RNA PCR copies/ml HIV-1 RNA (PCR) log 09/21/20 09/21/20 09/21/20 Unknown Unknown Unknown WBC RBC 3.56 L Hgb 11.3 L Hct 33.2 L MCV MCH MCHC Plt Count 125 L Lymph % (Auto) [place] % (Auto) Lymph # (Auto) [place] # (Auto) Seg Neutrophils % Seg Neuts % (Manual) 90.0 H Lymphocytes % (Manual) 8.0 L Monocytes % (Manual) Nucleated RBC % 1.0 H Seg Neutrophils # Seg Neutrophils # Man 9.4 H Abs Lymphs (Manual) Lymphocytes # (Manual) 0.8 L PT 16.8 H INR 1.36 H APTT D-Dimer Heparin Anti-Xa Level ABG pH POC ABG pCO2 POC ABG pO2 ABG Oxyhemoglobin ABG Sodium ABG Potassium ABG Glucose Carboxyhemoglobin Sodium Chloride Carbon Dioxide BUN 83 H Creatinine 4.3 H Glucose 163 H POC Glucose Calcium Phosphorus Ferritin Total Bilirubin 2.40 H AST ALT 57 H Alkaline Phosphatase < 5 L Lactate Dehydrogenase Total Creatine Kinase Troponin T C-Reactive Protein NT-Pro-B Natriuret Pep Total Protein Albumin 1.9 L Cholesterol LDL Cholesterol Direct HDL Cholesterol PTH Intact Arterial Blood Glucose Urine WBC (Auto) Urine Creatinine Heparin-induced Plt Ab Lymph Enumerat CD4/CD8 Absolute CD3 Count Absolute CD4 Count % CD8 Cells Absolute CD8 Count Absolute CD19 Count Coronavirus (PCR) HIV-1 RNA PCR copies/ml HIV-1 RNA (PCR) log 09/22/20 09/22/20 09/22/20 05:38 05:38 05:38 WBC 15.8 H RBC 3.36 L Hgb 10.8 L Hct 31.0 L MCV MCH MCHC 35 H Plt Count 68 L Lymph % (Auto) 3.1 L [place] % (Auto) 10.7 H Lymph # (Auto) 0.5 L [place] # (Auto) 1.7 H Seg Neutrophils % 85.9 H Seg Neuts % (Manual) Lymphocytes % (Manual) Monocytes % (Manual) Nucleated RBC % Seg Neutrophils # 13.6 H Seg Neutrophils # Man Abs Lymphs (Manual) Lymphocytes # (Manual) PT INR APTT D-Dimer 3281.49 H Heparin Anti-Xa Level ABG pH POC ABG pCO2 POC ABG pO2 ABG Oxyhemoglobin ABG Sodium ABG Potassium ABG Glucose Carboxyhemoglobin Sodium Chloride Carbon Dioxide BUN 61 H Creatinine 3.1 H Glucose 129 H POC Glucose Calcium Phosphorus Ferritin Total Bilirubin AST ALT Alkaline Phosphatase Lactate Dehydrogenase 277 H Total Creatine Kinase Troponin T C-Reactive Protein 6.60 H NT-Pro-B Natriuret Pep Total Protein Albumin Cholesterol LDL Cholesterol Direct HDL Cholesterol PTH Intact Arterial Blood Glucose Urine WBC (Auto) Urine Creatinine Heparin-induced Plt Ab Lymph Enumerat CD4/CD8 Absolute CD3 Count Absolute CD4 Count % CD8 Cells Absolute CD8 Count Absolute CD19 Count Coronavirus (PCR) HIV-1 RNA PCR copies/ml HIV-1 RNA (PCR) log 09/22/20 09/22/20 09/22/20 05:38 05:44 11:26 WBC RBC Hgb Hct MCV MCH MCHC Plt Count Lymph % (Auto) [place] % (Auto) Lymph # (Auto) [place] # (Auto) Seg Neutrophils % Seg Neuts % (Manual) Lymphocytes % (Manual) Monocytes % (Manual) Nucleated RBC % Seg Neutrophils # Seg Neutrophils # Man Abs Lymphs (Manual) Lymphocytes # (Manual) PT INR APTT D-Dimer Heparin Anti-Xa Level ABG pH POC ABG pCO2 POC ABG pO2 ABG Oxyhemoglobin ABG Sodium ABG Potassium ABG Glucose Carboxyhemoglobin Sodium Chloride Carbon Dioxide BUN Creatinine Glucose POC Glucose 112 H 131 H Calcium Phosphorus Ferritin 927.8 H Total Bilirubin AST ALT Alkaline Phosphatase Lactate Dehydrogenase Total Creatine Kinase Troponin T C-Reactive Protein NT-Pro-B Natriuret Pep Total Protein Albumin Cholesterol LDL Cholesterol Direct HDL Cholesterol PTH Intact Arterial Blood Glucose Urine WBC (Auto) Urine Creatinine Heparin-induced Plt Ab Lymph Enumerat CD4/CD8 Absolute CD3 Count Absolute CD4 Count % CD8 Cells Absolute CD8 Count Absolute CD19 Count Coronavirus (PCR) HIV-1 RNA PCR copies/ml HIV-1 RNA (PCR) log 09/22/20 09/22/20 09/22/20 15:12 15:12 15:12 WBC RBC Hgb Hct MCV MCH MCHC Plt Count Lymph % (Auto) [place] % (Auto) Lymph # (Auto) [place] # (Auto) Seg Neutrophils % Seg Neuts % (Manual) Lymphocytes % (Manual) Monocytes % (Manual) Nucleated RBC % Seg Neutrophils # Seg Neutrophils # Man Abs Lymphs (Manual) Lymphocytes # (Manual) PT 17.3 H INR 1.42 H APTT D-Dimer Heparin Anti-Xa Level ABG pH POC ABG pCO2 POC ABG pO2 ABG Oxyhemoglobin ABG Sodium ABG Potassium ABG Glucose Carboxyhemoglobin Sodium Chloride Carbon Dioxide BUN Creatinine 3.0 H Glucose POC Glucose Calcium Phosphorus Ferritin Total Bilirubin AST ALT Alkaline Phosphatase Lactate Dehydrogenase Total Creatine Kinase Troponin T C-Reactive Protein NT-Pro-B Natriuret Pep Total Protein Albumin Cholesterol LDL Cholesterol Direct HDL Cholesterol PTH Intact Arterial Blood Glucose Urine WBC (Auto) Urine Creatinine Heparin-induced Plt Ab Weak positive H Lymph Enumerat CD4/CD8 Absolute CD3 Count Absolute CD4 Count % CD8 Cells Absolute CD8 Count Absolute CD19 Count Coronavirus (PCR) HIV-1 RNA PCR copies/ml HIV-1 RNA (PCR) log 09/22/20 09/22/20 09/23/20 16:53 23:55 04:36 WBC 14.2 H RBC 3.05 L Hgb 9.8 L Hct 28.4 L MCV MCH MCHC Plt Count 39 L Lymph % (Auto) [place] % (Auto) Lymph # (Auto) [place] # (Auto) Seg Neutrophils % Seg Neuts % (Manual) 91.0 H Lymphocytes % (Manual) 2.0 L Monocytes % (Manual) Nucleated RBC % Seg Neutrophils # Seg Neutrophils # Man 12.9 H Abs Lymphs (Manual) Lymphocytes # (Manual) 0.3 L PT INR APTT D-Dimer Heparin Anti-Xa Level ABG pH POC ABG pCO2 POC ABG pO2 ABG Oxyhemoglobin ABG Sodium ABG Potassium ABG Glucose Carboxyhemoglobin Sodium Chloride Carbon Dioxide BUN Creatinine Glucose POC Glucose 138 H 171 H Calcium Phosphorus Ferritin Total Bilirubin AST ALT Alkaline Phosphatase Lactate Dehydrogenase Total Creatine Kinase Troponin T C-Reactive Protein NT-Pro-B Natriuret Pep Total Protein Albumin Cholesterol LDL Cholesterol Direct HDL Cholesterol PTH Intact Arterial Blood Glucose Urine WBC (Auto) Urine Creatinine Heparin-induced Plt Ab Lymph Enumerat CD4/CD8 Absolute CD3 Count Absolute CD4 Count % CD8 Cells Absolute CD8 Count Absolute CD19 Count Coronavirus (PCR) HIV-1 RNA PCR copies/ml HIV-1 RNA (PCR) log 09/23/20 09/23/20 09/23/20 04:36 05:41 11:38 WBC RBC Hgb Hct MCV MCH MCHC Plt Count Lymph % (Auto) [place] % (Auto) Lymph # (Auto) [place] # (Auto) Seg Neutrophils % Seg Neuts % (Manual) Lymphocytes % (Manual) Monocytes % (Manual) Nucleated RBC % Seg Neutrophils # Seg Neutrophils # Man Abs Lymphs (Manual) Lymphocytes # (Manual) PT INR APTT D-Dimer Heparin Anti-Xa Level ABG pH POC ABG pCO2 POC ABG pO2 ABG Oxyhemoglobin ABG Sodium ABG Potassium ABG Glucose Carboxyhemoglobin Sodium Chloride Carbon Dioxide BUN 76 H Creatinine 3.1 H Glucose 157 H POC Glucose 136 H 141 H Calcium Phosphorus Ferritin Total Bilirubin AST ALT Alkaline Phosphatase Lactate Dehydrogenase Total Creatine Kinase Troponin T C-Reactive Protein NT-Pro-B Natriuret Pep Total Protein Albumin Cholesterol LDL Cholesterol Direct HDL Cholesterol PTH Intact Arterial Blood Glucose Urine WBC (Auto) Urine Creatinine Heparin-induced Plt Ab Lymph Enumerat CD4/CD8 Absolute CD3 Count Absolute CD4 Count % CD8 Cells Absolute CD8 Count Absolute CD19 Count Coronavirus (PCR) HIV-1 RNA PCR copies/ml HIV-1 RNA (PCR) log 09/23/20 09/23/20 09/24/20 17:09 23:51 05:00 WBC 24.2 H RBC 3.23 L Hgb 10.0 L Hct 29.7 L MCV MCH MCHC Plt Count 74 L Lymph % (Auto) [place] % (Auto) Lymph # (Auto) [place] # (Auto) Seg Neutrophils % Seg Neuts % (Manual) Lymphocytes % (Manual) Monocytes % (Manual) Nucleated RBC % Seg Neutrophils # Seg Neutrophils # Man Abs Lymphs (Manual) Lymphocytes # (Manual) PT INR APTT D-Dimer Heparin Anti-Xa Level ABG pH POC ABG pCO2 POC ABG pO2 ABG Oxyhemoglobin ABG Sodium ABG Potassium ABG Glucose Carboxyhemoglobin Sodium Chloride Carbon Dioxide BUN Creatinine Glucose POC Glucose 128 H 128 H Calcium Phosphorus Ferritin Total Bilirubin AST ALT Alkaline Phosphatase Lactate Dehydrogenase Total Creatine Kinase Troponin T C-Reactive Protein NT-Pro-B Natriuret Pep Total Protein Albumin Cholesterol LDL Cholesterol Direct HDL Cholesterol PTH Intact Arterial Blood Glucose Urine WBC (Auto) Urine Creatinine Heparin-induced Plt Ab Lymph Enumerat CD4/CD8 Absolute CD3 Count Absolute CD4 Count % CD8 Cells Absolute CD8 Count Absolute CD19 Count Coronavirus (PCR) HIV-1 RNA PCR copies/ml HIV-1 RNA (PCR) log 09/24/20 09/24/20 09/24/20 05:00 05:00 05:00 WBC RBC Hgb Hct MCV MCH MCHC Plt Count Lymph % (Auto) [place] % (Auto) Lymph # (Auto) [place] # (Auto) Seg Neutrophils % Seg Neuts % (Manual) Lymphocytes % (Manual) Monocytes % (Manual) Nucleated RBC % Seg Neutrophils # Seg Neutrophils # Man Abs Lymphs (Manual) Lymphocytes # (Manual) PT INR APTT D-Dimer 1772.86 H Heparin Anti-Xa Level ABG pH POC ABG pCO2 POC ABG pO2 ABG Oxyhemoglobin ABG Sodium ABG Potassium ABG Glucose Carboxyhemoglobin Sodium Chloride 107.1 H Carbon Dioxide BUN 90 H Creatinine 3.1 H Glucose 118 H POC Glucose Calcium Phosphorus Ferritin 1190.0 H Total Bilirubin AST ALT Alkaline Phosphatase Lactate Dehydrogenase 276 H Total Creatine Kinase Troponin T C-Reactive Protein 4.20 H NT-Pro-B Natriuret Pep Total Protein Albumin Cholesterol LDL Cholesterol Direct HDL Cholesterol PTH Intact Arterial Blood Glucose Urine WBC (Auto) Urine Creatinine Heparin-induced Plt Ab Lymph Enumerat CD4/CD8 Absolute CD3 Count Absolute CD4 Count % CD8 Cells Absolute CD8 Count Absolute CD19 Count Coronavirus (PCR) HIV-1 RNA PCR copies/ml HIV-1 RNA (PCR) log 09/24/20 09/24/20 09/24/20 05:12 11:25 12:09 WBC RBC Hgb Hct MCV MCH MCHC Plt Count Lymph % (Auto) [place] % (Auto) Lymph # (Auto) [place] # (Auto) Seg Neutrophils % Seg Neuts % (Manual) Lymphocytes % (Manual) Monocytes % (Manual) Nucleated RBC % Seg Neutrophils # Seg Neutrophils # Man Abs Lymphs (Manual) Lymphocytes # (Manual) PT INR APTT D-Dimer Heparin Anti-Xa Level ABG pH POC ABG pCO2 POC ABG pO2 ABG Oxyhemoglobin ABG Sodium ABG Potassium ABG Glucose Carboxyhemoglobin Sodium Chloride Carbon Dioxide BUN Creatinine 3.1 H Glucose POC Glucose 114 H 110 H Calcium Phosphorus Ferritin Total Bilirubin AST ALT Alkaline Phosphatase Lactate Dehydrogenase Total Creatine Kinase Troponin T C-Reactive Protein NT-Pro-B Natriuret Pep Total Protein Albumin Cholesterol LDL Cholesterol Direct HDL Cholesterol PTH Intact Arterial Blood Glucose Urine WBC (Auto) Urine Creatinine Heparin-induced Plt Ab Lymph Enumerat CD4/CD8 Absolute CD3 Count Absolute CD4 Count % CD8 Cells Absolute CD8 Count Absolute CD19 Count Coronavirus (PCR) HIV-1 RNA PCR copies/ml HIV-1 RNA (PCR) log 09/24/20 09/24/20 09/24/20 12:13 12:13 17:41 WBC 20.8 H RBC 3.04 L Hgb 9.5 L Hct 28.0 L MCV MCH MCHC Plt Count 78 L Lymph % (Auto) [place] % (Auto) Lymph # (Auto) [place] # (Auto) Seg Neutrophils % Seg Neuts % (Manual) Lymphocytes % (Manual) Monocytes % (Manual) Nucleated RBC % Seg Neutrophils # Seg Neutrophils # Man Abs Lymphs (Manual) Lymphocytes # (Manual) PT 15.7 H INR 1.27 H APTT D-Dimer Heparin Anti-Xa Level ABG pH POC ABG pCO2 POC ABG pO2 ABG Oxyhemoglobin ABG Sodium ABG Potassium ABG Glucose Carboxyhemoglobin Sodium Chloride Carbon Dioxide BUN Creatinine Glucose POC Glucose 133 H Calcium Phosphorus Ferritin Total Bilirubin AST ALT Alkaline Phosphatase Lactate Dehydrogenase Total Creatine Kinase Troponin T C-Reactive Protein NT-Pro-B Natriuret Pep Total Protein Albumin Cholesterol LDL Cholesterol Direct HDL Cholesterol PTH Intact Arterial Blood Glucose Urine WBC (Auto) Urine Creatinine Heparin-induced Plt Ab Lymph Enumerat CD4/CD8 Absolute CD3 Count Absolute CD4 Count % CD8 Cells Absolute CD8 Count Absolute CD19 Count Coronavirus (PCR) HIV-1 RNA PCR copies/ml HIV-1 RNA (PCR) log 09/24/20 09/25/20 09/25/20 23:34 06:40 06:40 WBC RBC Hgb Hct MCV MCH MCHC Plt Count Lymph % (Auto) [place] % (Auto) Lymph # (Auto) [place] # (Auto) Seg Neutrophils % Seg Neuts % (Manual) Lymphocytes % (Manual) Monocytes % (Manual) Nucleated RBC % Seg Neutrophils # Seg Neutrophils # Man Abs Lymphs (Manual) Lymphocytes # (Manual) PT INR APTT D-Dimer Heparin Anti-Xa Level ABG pH POC ABG pCO2 POC ABG pO2 ABG Oxyhemoglobin ABG Sodium ABG Potassium ABG Glucose Carboxyhemoglobin Sodium Chloride 109.0 H Carbon Dioxide BUN 98 H Creatinine 3.0 H 3.0 H Glucose 111 H POC Glucose 113 H Calcium Phosphorus Ferritin Total Bilirubin AST ALT Alkaline Phosphatase Lactate Dehydrogenase Total Creatine Kinase Troponin T C-Reactive Protein NT-Pro-B Natriuret Pep Total Protein Albumin Cholesterol LDL Cholesterol Direct HDL Cholesterol PTH Intact Arterial Blood Glucose Urine WBC (Auto) Urine Creatinine Heparin-induced Plt Ab Lymph Enumerat CD4/CD8 Absolute CD3 Count Absolute CD4 Count % CD8 Cells Absolute CD8 Count Absolute CD19 Count Coronavirus (PCR) HIV-1 RNA PCR copies/ml HIV-1 RNA (PCR) log 09/25/20 09/25/20 09/25/20 10:45 12:45 18:03 WBC 20.7 H RBC 3.33 L Hgb 10.2 L Hct 31.3 L MCV MCH MCHC Plt Count 139 L Lymph % (Auto) [place] % (Auto) Lymph # (Auto) [place] # (Auto) Seg Neutrophils % Seg Neuts % (Manual) Lymphocytes % (Manual) Monocytes % (Manual) Nucleated RBC % Seg Neutrophils # Seg Neutrophils # Man Abs Lymphs (Manual) Lymphocytes # (Manual) PT INR APTT D-Dimer Heparin Anti-Xa Level ABG pH POC ABG pCO2 POC ABG pO2 ABG Oxyhemoglobin ABG Sodium ABG Potassium ABG Glucose Carboxyhemoglobin Sodium Chloride Carbon Dioxide BUN Creatinine Glucose POC Glucose 108 H 114 H Calcium Phosphorus Ferritin Total Bilirubin AST ALT Alkaline Phosphatase Lactate Dehydrogenase Total Creatine Kinase Troponin T C-Reactive Protein NT-Pro-B Natriuret Pep Total Protein Albumin Cholesterol LDL Cholesterol Direct HDL Cholesterol PTH Intact Arterial Blood Glucose Urine WBC (Auto) Urine Creatinine Heparin-induced Plt Ab Lymph Enumerat CD4/CD8 Absolute CD3 Count Absolute CD4 Count % CD8 Cells Absolute CD8 Count Absolute CD19 Count Coronavirus (PCR) HIV-1 RNA PCR copies/ml HIV-1 RNA (PCR) log 09/25/20 09/26/20 09/26/20 23:29 05:00 07:06 WBC 17.0 H RBC 3.10 L Hgb 9.6 L Hct 28.8 L MCV MCH MCHC Plt Count Lymph % (Auto) [place] % (Auto) Lymph # (Auto) [place] # (Auto) Seg Neutrophils % Seg Neuts % (Manual) Lymphocytes % (Manual) Monocytes % (Manual) Nucleated RBC % Seg Neutrophils # Seg Neutrophils # Man Abs Lymphs (Manual) Lymphocytes # (Manual) PT INR APTT D-Dimer Heparin Anti-Xa Level ABG pH POC ABG pCO2 POC ABG pO2 ABG Oxyhemoglobin ABG Sodium ABG Potassium ABG Glucose Carboxyhemoglobin Sodium Chloride Carbon Dioxide BUN Creatinine Glucose POC Glucose 111 H 115 H Calcium Phosphorus Ferritin Total Bilirubin AST ALT Alkaline Phosphatase Lactate Dehydrogenase Total Creatine Kinase Troponin T C-Reactive Protein NT-Pro-B Natriuret Pep Total Protein Albumin Cholesterol LDL Cholesterol Direct HDL Cholesterol PTH Intact Arterial Blood Glucose Urine WBC (Auto) Urine Creatinine Heparin-induced Plt Ab Lymph Enumerat CD4/CD8 Absolute CD3 Count Absolute CD4 Count % CD8 Cells Absolute CD8 Count Absolute CD19 Count Coronavirus (PCR) HIV-1 RNA PCR copies/ml HIV-1 RNA (PCR) log 09/26/20 09/26/20 09/27/20 07:06 17:26 04:00 WBC RBC Hgb Hct MCV MCH MCHC Plt Count Lymph % (Auto) [place] % (Auto) Lymph # (Auto) [place] # (Auto) Seg Neutrophils % Seg Neuts % (Manual) Lymphocytes % (Manual) Monocytes % (Manual) Nucleated RBC % Seg Neutrophils # Seg Neutrophils # Man Abs Lymphs (Manual) Lymphocytes # (Manual) PT INR APTT D-Dimer Heparin Anti-Xa Level ABG pH POC ABG pCO2 POC ABG pO2 ABG Oxyhemoglobin ABG Sodium ABG Potassium ABG Glucose Carboxyhemoglobin Sodium Chloride Carbon Dioxide BUN 69 H 67 H Creatinine 2.2 H 2.3 H Glucose 107 H 121 H POC Glucose 124 H Calcium Phosphorus Ferritin Total Bilirubin AST ALT Alkaline Phosphatase Lactate Dehydrogenase Total Creatine Kinase Troponin T C-Reactive Protein NT-Pro-B Natriuret Pep Total Protein Albumin Cholesterol LDL Cholesterol Direct HDL Cholesterol PTH Intact Arterial Blood Glucose Urine WBC (Auto) Urine Creatinine Heparin-induced Plt Ab Lymph Enumerat CD4/CD8 Absolute CD3 Count Absolute CD4 Count % CD8 Cells Absolute CD8 Count Absolute CD19 Count Coronavirus (PCR) HIV-1 RNA PCR copies/ml HIV-1 RNA (PCR) log 09/27/20 09/27/20 09/27/20 04:00 05:00 17:11 WBC 14.6 H RBC 2.72 L Hgb 8.6 L Hct 25.8 L MCV 95 H MCH MCHC Plt Count Lymph % (Auto) 4.3 L [place] % (Auto) Lymph # (Auto) 0.6 L [place] # (Auto) 0.9 H Seg Neutrophils % 89.6 H Seg Neuts % (Manual) Lymphocytes % (Manual) Monocytes % (Manual) Nucleated RBC % Seg Neutrophils # 13.1 H Seg Neutrophils # Man Abs Lymphs (Manual) Lymphocytes # (Manual) PT INR APTT D-Dimer Heparin Anti-Xa Level ABG pH POC ABG pCO2 POC ABG pO2 ABG Oxyhemoglobin ABG Sodium ABG Potassium ABG Glucose Carboxyhemoglobin Sodium Chloride Carbon Dioxide BUN Creatinine 2.4 H Glucose POC Glucose 132 H Calcium Phosphorus Ferritin Total Bilirubin AST ALT Alkaline Phosphatase Lactate Dehydrogenase Total Creatine Kinase Troponin T C-Reactive Protein NT-Pro-B Natriuret Pep Total Protein Albumin Cholesterol LDL Cholesterol Direct HDL Cholesterol PTH Intact Arterial Blood Glucose Urine WBC (Auto) Urine Creatinine Heparin-induced Plt Ab Lymph Enumerat CD4/CD8 Absolute CD3 Count Absolute CD4 Count % CD8 Cells Absolute CD8 Count Absolute CD19 Count Coronavirus (PCR) HIV-1 RNA PCR copies/ml HIV-1 RNA (PCR) log 09/28/20 09/28/20 09/29/20 04:46 04:46 04:45 WBC 14.6 H RBC 2.66 L Hgb 8.4 L Hct 25.3 L MCV 95 H MCH MCHC Plt Count Lymph % (Auto) [place] % (Auto) Lymph # (Auto) [place] # (Auto) Seg Neutrophils % Seg Neuts % (Manual) Lymphocytes % (Manual) Monocytes % (Manual) Nucleated RBC % Seg Neutrophils # Seg Neutrophils # Man Abs Lymphs (Manual) Lymphocytes # (Manual) PT INR APTT D-Dimer Heparin Anti-Xa Level ABG pH POC ABG pCO2 POC ABG pO2 ABG Oxyhemoglobin ABG Sodium ABG Potassium ABG Glucose Carboxyhemoglobin Sodium Chloride Carbon Dioxide BUN 71 H 63 H Creatinine 2.3 H 2.2 H Glucose 105 H POC Glucose Calcium Phosphorus Ferritin Total Bilirubin AST ALT Alkaline Phosphatase Lactate Dehydrogenase Total Creatine Kinase Troponin T C-Reactive Protein NT-Pro-B Natriuret Pep Total Protein Albumin Cholesterol LDL Cholesterol Direct HDL Cholesterol PTH Intact Arterial Blood Glucose Urine WBC (Auto) Urine Creatinine Heparin-induced Plt Ab Lymph Enumerat CD4/CD8 Absolute CD3 Count Absolute CD4 Count % CD8 Cells Absolute CD8 Count Absolute CD19 Count Coronavirus (PCR) HIV-1 RNA PCR copies/ml HIV-1 RNA (PCR) log 09/29/20 09/29/20 09/29/20 04:45 05:43 17:50 WBC RBC 2.92 L Hgb 9.6 L Hct 28.1 L MCV 96 H MCH 33 H MCHC Plt Count Lymph % (Auto) [place] % (Auto) Lymph # (Auto) [place] # (Auto) Seg Neutrophils % Seg Neuts % (Manual) Lymphocytes % (Manual) Monocytes % (Manual) Nucleated RBC % Seg Neutrophils # Seg Neutrophils # Man Abs Lymphs (Manual) Lymphocytes # (Manual) PT INR APTT D-Dimer Heparin Anti-Xa Level ABG pH POC ABG pCO2 POC ABG pO2 ABG Oxyhemoglobin ABG Sodium ABG Potassium ABG Glucose Carboxyhemoglobin Sodium Chloride Carbon Dioxide BUN Creatinine Glucose POC Glucose 69 L 132 H Calcium Phosphorus Ferritin Total Bilirubin AST ALT Alkaline Phosphatase Lactate Dehydrogenase Total Creatine Kinase Troponin T C-Reactive Protein NT-Pro-B Natriuret Pep Total Protein Albumin Cholesterol LDL Cholesterol Direct HDL Cholesterol PTH Intact Arterial Blood Glucose Urine WBC (Auto) Urine Creatinine Heparin-induced Plt Ab Lymph Enumerat CD4/CD8 Absolute CD3 Count Absolute CD4 Count % CD8 Cells Absolute CD8 Count Absolute CD19 Count Coronavirus (PCR) HIV-1 RNA PCR copies/ml HIV-1 RNA (PCR) log 09/30/20 09/30/20 10/01/20 04:47 04:47 07:16 WBC RBC 2.47 L Hgb 8.1 L Hct 23.9 L MCV 97 H MCH 33 H MCHC Plt Count Lymph % (Auto) [place] % (Auto) Lymph # (Auto) [place] # (Auto) Seg Neutrophils % Seg Neuts % (Manual) Lymphocytes % (Manual) Monocytes % (Manual) Nucleated RBC % Seg Neutrophils # Seg Neutrophils # Man Abs Lymphs (Manual) Lymphocytes # (Manual) PT INR APTT D-Dimer Heparin Anti-Xa Level ABG pH POC ABG pCO2 POC ABG pO2 ABG Oxyhemoglobin ABG Sodium ABG Potassium ABG Glucose Carboxyhemoglobin Sodium Chloride Carbon Dioxide 31 H BUN 63 H 58 H Creatinine 2.1 H 2.2 H Glucose POC Glucose Calcium Phosphorus Ferritin Total Bilirubin AST ALT Alkaline Phosphatase Lactate Dehydrogenase Total Creatine Kinase Troponin T C-Reactive Protein NT-Pro-B Natriuret Pep Total Protein 5.9 L Albumin 2.2 L Cholesterol LDL Cholesterol Direct HDL Cholesterol PTH Intact Arterial Blood Glucose Urine WBC (Auto) Urine Creatinine Heparin-induced Plt Ab Lymph Enumerat CD4/CD8 Absolute CD3 Count Absolute CD4 Count % CD8 Cells Absolute CD8 Count Absolute CD19 Count Coronavirus (PCR) HIV-1 RNA PCR copies/ml HIV-1 RNA (PCR) log 10/01/20 10/02/20 08:30 05:10 WBC RBC Hgb Hct MCV MCH MCHC Plt Count Lymph % (Auto) [place] % (Auto) Lymph # (Auto) [place] # (Auto) Seg Neutrophils % Seg Neuts % (Manual) Lymphocytes % (Manual) Monocytes % (Manual) Nucleated RBC % Seg Neutrophils # Seg Neutrophils # Man Abs Lymphs (Manual) Lymphocytes # (Manual) PT INR APTT D-Dimer Heparin Anti-Xa Level ABG pH POC ABG pCO2 POC ABG pO2 ABG Oxyhemoglobin ABG Sodium ABG Potassium ABG Glucose Carboxyhemoglobin Sodium Chloride Carbon Dioxide BUN 48 H Creatinine 2.0 H Glucose POC Glucose Calcium Phosphorus Ferritin Total Bilirubin AST ALT Alkaline Phosphatase Lactate Dehydrogenase Total Creatine Kinase Troponin T C-Reactive Protein NT-Pro-B Natriuret Pep Total Protein Albumin Cholesterol LDL Cholesterol Direct HDL Cholesterol PTH Intact Arterial Blood Glucose Urine WBC (Auto) Urine Creatinine Heparin-induced Plt Ab Lymph Enumerat CD4/CD8 Absolute CD3 Count Absolute CD4 Count % CD8 Cells Absolute CD8 Count Absolute CD19 Count Coronavirus (PCR) Positive A HIV-1 RNA PCR copies/ml HIV-1 RNA (PCR) log Allied health notes reviewed: nursing
[2020-10-03] MEDS: VALPROIC ACID 250 MG CAP PO SCH (23:07)
[2020-10-04] MEDS ORDERED: MORPHINE 2 MG/1 ML INJ IV ONE (05:50)
[2020-10-04 07:30] LABS: Albumin 2.1 g/dL (3.8-4.8); Gamma Globulin 1.7 g/dL (0.8-1.7)
[2020-10-04] MEDS: MIDODRINE 5 MG TAB PO SCH ×4 (08:22→23:33)
[2020-10-04] MEDS: APIXABAN 2.5 MG TAB PO SCH ×2 (09:28→23:32)
[2020-10-04] MEDS: ASCORBIC ACID 500 MG TAB PO SCH ×2 (09:28→23:33)
[2020-10-04] MEDS: ZINC SULFATE 220 MG CAP PO SCH (09:28)
[2020-10-04] MEDS: CHOLECALCIFEROL (VIT D3) 1000 UNIT (25 mcg) TAB PO SCH (09:29)
[2020-10-04] MEDS: METOPROLOL TARTRATE 25 MG TAB PO SCH (09:29)
[2020-10-04] MEDS: AMIODARONE 200 MG TAB PO SCH ×2 (09:29→23:31)
[2020-10-04] MEDS: FAMOTIDINE 20 MG TAB PO SCH (09:29)
[2020-10-04] MEDS: QUEtiapine 25 MG TAB PO SCH ×2 (09:39→23:34)
--- NOTE | 2020-10-04 10:04 | Progress Note ---
Assessment and Plan 1. Acute kidney injury: Vasomotor LOLI in the setting of shock. ATN likely. Renal US negative for hydro. Multiple bladder scan negative. Patient required hemodialysis due to significant decline in the renal function. Hemodialysis: 09/20, 09/21, 09/25. Monitor renal function. Creatinine level increasing. Renal prognosis is guarded. Avoid nephrotoxic agents. Meds dosage based on GFR. Monitor for [employer] needs. 2. FEN: Hyperkalemia, improved. Metabolic acidosis, improved, monitor. Monitor volume status and lytes. 3. Acute hypoxic respiratory failure: Covid test positive. Supplemental O2. 4. Acute CHF: Echocardiogram: EF 40-45%. CHF orderset / pathway. Monitor. 5. Atrial fibrillation with RVR: On Amio and Metoprolol. Followed by Cards. 6. Elevated troponin: Followed by Cards. 7. Coagulopathy: Trend. 8. Shock / Hypotension: Multifactorial, monitor. Off pressors. 9. Elevated Transaminases: Improved. 10. Metabolic encephalopathy: Monitor. 11. HIV. 12. Anemia, POA: Monitor. Subjective: Patient was seen and examined at the bedside. Objective: General appearance: well-developed, appears stated age, not in distress, mittens HEENT: ATNC, L pupil dilated Neck: trachea midline Respiratory: bilateral diminished breath sounds Heart: S1S2, irregular, no murmur Abdomen: soft, normoactive bowel sounds, not tender Integumentary: no obvious rash Ext: no edema Neurologic: lethargic, non-verbal, not following any command Subjective Date of service: 10/04/20 Principal diagnosis: Sepsis, AF with RVR Objective - Vital Signs Vital signs: Vital Signs - 12hr 10/03/20 10/03/20 10/04/20 22:10 23:08 04:04 Temperature 98.8 F 98.0 F Pulse Rate 125 H 67 Respiratory 18 20 Rate Blood Pressure 120/75 120/75 123/91 O2 Sat by Pulse 95 99 Oximetry 10/04/20 09:29 Temperature Pulse Rate 67 Respiratory Rate Blood Pressure 123/91 O2 Sat by Pulse Oximetry - Lab 10/04/20 18:19 10/04/20 18:19 Most recent lab results ABG pH 7.508 (7.320-7.450) H 09/17/20 10:28 ABG O2 Saturation 93.4 (0-100) 09/17/20 10:28 Calcium 8.0 mg/dL (8.4-10.2) L 10/03/20 08:12 Phosphorus 2.90 mg/dL (2.5-4.5) 09/26/20 07:06 Magnesium 1.70 mg/dL (1.7-2.3) 09/26/20 07:06 Urine Creatinine 61.0 mg/dL (0.1-20.0) H 09/18/20 12:00 Urine Sodium 62 mmol/L 09/18/20 12:00 Medications & Allergies - Medications Allergies/Adverse Reactions: Allergies heparin Adverse Reaction (Verified 09/29/20 16:33) thrombocytopenia PF4 Home Medications: Home Medications Medication Instructions Recorded Confirmed Last Taken Type AtorvaSTATin [Lipitor] 20 mg PO QHS 09/18/20 09/18/20 Unknown History Dolutegravir [Tivicay] 50 mg PO DAILY 09/18/20 09/18/20 Unknown History Emtricitabine/Tenofov Alafenam 1 tab PO DAILY 09/18/20 09/18/20 Unknown History [Descovy 200-25 mg (Nf)] allopurinoL [Zyloprim] 300 mg PO QDAY 09/18/20 09/18/20 Unknown History Amiodarone [Cordarone 200 MG TAB] 200 mg PO DAILY #60 tablet 10/01/20 Unknown Rx Apixaban [Eliquis] 2.5 mg PO Q12HR #60 tablet 10/01/20 Unknown Rx Ascorbic Acid [Vitamin C] 500 mg PO BID #60 tablet 10/01/20 Unknown Rx Cholecalciferol Vit D3 [Vitamin D3 1,000 unit PO QDAY #30 tablet 10/01/20 Unknown Rx 1,000 UNIT TAB] Famotidine [Pepcid] 20 mg PO DAILY #30 tablet 10/01/20 Unknown Rx Midodrine [Proamatine] 5 mg PO TID@0800,1200,1600 #90 10/01/20 Unknown Rx tablet QUEtiapine [SEROquel] 25 mg PO BID #30 tablet 10/01/20 Unknown Rx Zinc Sulfate 220 mg PO QDAY #30 capsule 10/01/20 Unknown Rx carvediloL [Coreg] 3.125 mg PO BID #60 tablet 10/01/20 Unknown Rx haloperidoL [Haldol] 2 mg PO Q8H PRN #30 tablet 10/01/20 Unknown Rx Active Medications: Generic Name Dose Route Start Last Admin Trade Name Freq PRN Reason Stop Dose Admin Acetaminophen 650 mg 09/17/20 13:52 09/30/20 21:12 Acetaminophen 325 Mg Tab PO 650 mg Q4H PRN Administration Pain MILD(1-3)/Fever >100.5/ANGEL Albuterol 2.5 mg 09/17/20 13:52 09/17/20 20:47 Albuterol 2.5 Mg/3 Ml Nebu IH 2.5 mg Q4HRT PRN Administration Shortness Of Breath Amiodarone HCl 200 mg 10/01/20 22:00 10/04/20 09:29 Amiodarone 200 Mg Tab PO 200 mg BID EDIE Administration Lipase/Protease/Amylase 1 each 09/20/20 13:10 Lipase 10,500/Protease 25,000/Amylase 43,750 (Units) Dr Patrick FEEDTUBE PRN PRN For Clogged Feeding Tube Apixaban 2.5 mg 09/24/20 12:00 10/04/20 09:28 Apixaban 2.5 Mg Tab PO 2.5 mg Q12HR EDIE Administration Protocol Ascorbic Acid 500 mg 09/20/20 22:00 10/04/20 09:28 Ascorbic Acid 500 Mg Tab PO 500 mg BID EDIE Administration Cholecalciferol 1,000 unit 09/21/20 10:00 10/04/20 09:29 Cholecalciferol (Vit D3) 1000 Unit (25 Mcg) Tab PO 1,000 unit QDAY EDIE Administration Emtricitabine 200 mg 09/30/20 11:00 10/02/20 11:45 Emtricitabine 200 Mg Cap PO 200 mg Q48H EDIE Administration Famotidine 20 mg 09/24/20 10:00 10/04/20 09:29 Famotidine 20 Mg Tab PO 20 mg DAILY EDIE Administration Haloperidol Lactate 5 mg 10/01/20 11:34 10/02/20 17:04 Haloperidol Lactate 5 Mg/1 Ml Inj IM 5 mg Q6H PRN Administration Agitation Heparin Sodium (Porcine) 3,000 unit 09/20/20 10:06 Heparin 10,000 Units/10 Ml Vial IV VIRGIL PRN hemodialysis Sodium Chloride 100 mls @ 999 mls/hr 09/20/20 10:06 Nacl 0.9% IV VIRGIL PRN Hypotension Metoprolol Tartrate 5 mg 09/19/20 19:06 09/24/20 10:59 Metoprolol Tartrate 5 Mg/5 Ml Inj IV 5 mg Q8HR PRN Administration HR > 135 Minute Metoprolol Tartrate 6.25 mg 10/03/20 22:00 10/04/20 09:29 Metoprolol Tartrate 25 Mg Tab PO 6.25 mg BID EDIE Administration Midodrine 5 mg 09/22/20 12:00 10/04/20 08:22 Midodrine 5 Mg Tab PO 5 mg TID@0800,1200,1600 EDIE Administration Ondansetron HCl 4 mg 09/17/20 13:52 Ondansetron 4 Mg/2 Ml Inj IV Q8H PRN Nausea And Vomiting Quetiapine Fumarate 12.5 mg 10/03/20 22:00 10/03/20 23:08 Quetiapine 25 Mg Tab PO 12.5 mg QHS EDIE Administration Quetiapine Fumarate 12.5 mg 10/04/20 10:00 10/04/20 09:39 Quetiapine 25 Mg Tab PO 12.5 mg QAM EDIE Administration Simple Syrup 15 ml 09/20/20 13:10 Simple Syrup 15 Ml FEEDTUBE PRN PRN Hypoglycemia Simple Syrup 30 ml 09/20/20 13:10 Simple Syrup 15 Ml FEEDTUBE PRN PRN Hypoglycemia Sodium Bicarbonate 325 mg 09/20/20 13:10 Sodium Bicarbonate 325 Mg Tab FEEDTUBE PRN PRN For Clogged Feeding Tube Sodium Chloride 10 ml 09/17/20 22:00 10/04/20 10:00 Sodium Chloride 0.9% 10 Ml Flush Syringe IV 10 ml BID EDIE Administration Sodium Chloride 10 ml 09/17/20 13:52 09/24/20 09:15 Sodium Chloride 0.9% 10 Ml Flush Syringe IV 10 ml PRN PRN Administration LINE FLUSH Tenofovir Disoproxil Fumarate 300 mg 09/30/20 11:00 10/02/20 11:45 Tenofovir 300 Mg Tab PO 300 mg Q48H EDIE Administration Valproic Acid 250 mg 10/03/20 22:00 10/03/20 23:07 Valproic Acid 250 Mg Cap PO 250 mg BID EDIE Administration Zinc Sulfate 220 mg 09/21/20 10:00 10/04/20 09:28 Zinc Sulfate 220 Mg Cap PO 220 mg QDAY EDIE Administration
--- NOTE | 2020-10-04 11:03 | Progress Note ---
Assessment and Plan Assessment and plan: This is 70-year-old male with HIV, HTN, and atrial fibrillation (currently on therapeutic anticoagulation with Xarelto) presents the emergency department on 09/17 with complaints of shortness of breath over the past 3 days and on arrival of EMS patient was found to have a pulse oximetry of 85% on room air. He was placed on supplemental oxygenation. Of note patient was admitted on 09/15 with similar complaints and found to have A. fib with RVR, hyponatremia, hypomagnesemia and acute kidney injury and left AMA. He was admitted to the hospital service with atrial fibrillation with RVR, SIRs, metabolic acidosis, acute kidney injury, acute hypoxic respiratory failure, hypotension, and CHF . Cardiology, CCM and nephrology were consulted. 09/18/2020. Await echocardiogram to assess for diastolic versus systolic etiology. Patient with elevated BNP greater than 18,000. Patient apparently was admitted approximately 3 days ago but left AMA. Cardiology consulted for heart failure, A. fib with RVR and elevated troponin. Patient denies chest pain. Also, patient with elevated creatinine of 4.7 with creatinine 2.8 on recent admission. We do not have a previous creatinine as a baseline to compar e. Nephrology consultation pending. Follow-up renal ultrasound. Patient with coagulopathy and INR 3.04. Unsure if patient was on anticoagulation for A. fib. 09/19/2020. Patient likely with vasomotor acute kidney injury in the setting of shock. Follow-up urine studies and renal ultrasound. Creatinine continues to worsen. Nephrology following. Etiology of respiratory failure secondary to hea rt failure with Covid testing pending. Elevated troponin suggestive of NSTEMI. Continue diuresis with Lasix. Continue IV amiodarone for rate control of A. fib with RVR. Continue heparin. Follow-up echocardiogram. Cardiology following. 09/20/2020: This time my examination patient was on BiPAP therapy and now is on nasal cannula. Patient remains on amiodarone drip with heart rate in the 130s t o 140s and vasopressor support with Levophed. Today nephrology will initiate hemodialysis given worsening renal function studies and has stopped diuresis with Lasix. ID resumed antiretroviral therapy and ordered a HIDA scan. Today the patient received a temporary Vas-Cath and is COVID-19 PCR resulted as positive. Patient will be started on vitamin C, vitamin D and zinc and dexamethasone given need for supplemental oxygenation. 09/21: Ecoli UTI and bacteremia and ID has changed him to meropenem, Patient received HD yesterday and patient remains on amiodarone drip. He is off the floor to obtain a HIDA scan. 09/22: HIDA scan did not show acute cholecystitis. Ecoli bacteremia is sensitive to ceftriaxone and ID changed his abx. Mentation is better. BP is liable. Remains on levophed and vasopressin. We started midodrine. HIT panel pending and hem/onc consulted. 09/23: Patient noted to have unequal pupils with left >right, STAT CT head ordered. Nephro will withhold hemodialysis and assess needs as kidney function has gotten better. Patient symptomatically follows commands and is on nasal cannula. Cardiology stopped his Eliquis due to persistent thrombocytopenia. 09/24: Patient remains confused, pupils still unequal. Started on eliquis 2.5 today and he will be transferred to IMCU. 09/25: Patient remains confused, had Bipap overnight, CT abd/pelvis ordered per ID recommendations given persistent leukocytosis. Cr remains unchanged but BUN in rising. Nephrology is on the case. 09/26/2020; patient was confused and on 3 L of oxygen. ID is following the patient and continue with antiretroviral medications, no OI prophylaxis needed. Patient is on IV Rocephin lasted 09/28 per ID recommendation for E. coli bacteremia. ID ordered CT abdomen and pelvis. We will follow the results. Sulaiman wild is being followed by cardiology and they recommend to resume Eliquis with 2.5 mg p.o. twice daily, thrombocytopenia is improving. Patient is on amiodarone and metoprolol. Patient is being followed by nephrology and is on dialysis. Blood pressure was normal this morning. Patient was tachycardic in A. fib with RVR. CT head was normal. Prognosis is guarded. Continue IMCU care. 09/27: Continue IMCU care, still with unresolved Afib, will continue to adjust medications for better control. 09/28: Start Seroquel DUE TO THE AGITATION, Discussed with daughter, will work on getting Afib better controlled. Per daughter the confusion is new, although some improvement noted today. Patient will benefit from SNF 09/29: Seroquel started today as it was not started yesterday, await PT/OT, Yasmin veronica to monitor mental status, will transfer to Tele. Anticipate discharge when bed available. 09/30: Discussed extensively with the daughter about her clinical condition, Seroquel discontinued as patient did not tolerate, still with low BP responded to Fluids. Hold BB and continue to monitor and redirect. Discussed with Nursing staff. 10/01: Patient seen and examined resting comfortably still with intermittent delirium. Blood pressure has improved although beta-ruddy was held midodrine was given. Will change to Coreg 3.125 with holding parameters on discharge. Per cardiology amiodarone changed to 200 mg daily. Neurology evaluation is still pending. I have initiated placement to a SNF facility and once approved patient can be discharged. Daughter has been updated on medical condition. For now on anticoagulation left in place although outpatient this may be discontinued due to patient's mental status if there is no improvement. 10/02: Neurology evaluated the patient for increased agitation and aggressive behavior and confusion. Exam suggestive of delirium stopped. Due to not tolerating Seroquel, now Geodon trial Haldol however recommended also valproic acid. No overnight issues reported. Continue awaiting SNF placement for continued rehab. Blood pressure has remained stable no further fever recorded. Monitor for any recurrence of the pain in the leg. 10/03: I have asked for a sitter a few days ago unfortunately not as available as a result restraints have been used and reassurances. Will decrease Seroquel to 12.5 twice daily as patient did not tolerate the 25 mg. Continue supportive care blood pressure meds held due to hypotension. Delirium still present delirium preventive methods including keeping the lights on through the night windows shades up discussed with nursing staff. Also discussed with neurologist. 10/04: 70-year-old male admitted to the hospital with hypoxic respiratory failure history of Covid. During hospitalization developed A. fib with RVR status metabolic acidosis and acute kidney injury. Has also been exhibiting some delirium was managed in the ICU and IMCU and subsequently is awaiting placement. He was seen by neurologist delirium of diagnosis secondary to metabolic issues. Seroquel was started initially at 25 mg p.o. twice daily but patient developed hypotension now better improved BP, Continue seroquel 12.5mg po BID seems to have good improvement in mental status. awaiting labs due to noted hyperkalemia yesterday. Repeat covud test for placement. Septic Shock Acute hypoxemic respiratory failure 2/2 to volume overload/chf exacerbation Acute systolic heart failure exacerbation Atrial fibrillation with RVR Acute on chronic kidney injury Hypotension Anemia Thrombocytopenia E coli bacteremia Delirium related to critical illness. E. coli urinary tract infection NSTEMI Elevated Ddimer Hyperkalemia Leukocytosis HIV, asymptomatic HTN Coagulopathy Transaminitis -Cardiology, CCM, Nephrology, ID, general surgery, heme/onc consulted, appreciate recommendations -09/20 COVID-19 PCR positive -Droplet/isolation precautions -Dexamethasone 6 mg p.o. (09/20-09/30) -Vitamin D, vitamin C, zinc -Vasopressor support with levophed and vasopressin, midodrine -09/17 CXR shows borderline heart size, mild central pulmonary venous congestion -09/17 renal ultrasound shows no acute findings -09/18 echocardiogram shows left ventricle systolic function mildly decreased, LVEF of 40 to 45% with mild concentric left ventricle hypertrophy, trace MR, mild TR, trace MD -09/19 abdominal ultrasound shows large gallstone within the gallbladder, no pericholecystic fluid, gallbladder wall upper limits of normal measuring 3 mm -09/21 HIDA scan shows no evidence of acute cholecystitis -09/21 BLE Dopplar US no evidence for DVT -09/23 CT head shows no acute intracranial hemorrhage or parenchymal abnormality, mild diffuse brain atrophy with commensurate ventricular enlargement which is likely age appropriate, small frontal scalp lipoma measuring 9 mm in thickness, 4 cm in length, and 4 cm in width., Sinuses and mastoid air cells are clear. -09/17 proBNP [id number] -S/p IV Lasix twice daily -09/20 nephrology initiated the patient on dialysis -Pulmonary hygiene -Bipap qhs -09/25 CT abd/pelvis without contrast pending -PO amiodarone -HIV meds per ID -IV abx therapy -HIT pending -Trend CBC, BMP, LFTs DVT/GI prophylaxis: PPI, SCDs to bilateral lower extremities while in bed, no chemical anticoagulation at this time d/t thrombocytopenia Disposition: IMCU History Interval history: This is 70-year-old male with HIV, HTN, and atrial fibrillation (currently on therapeutic anticoagulation with Xarelto) admitted with atrial fibrillation with RVR, SIRs, metabolic acidosis, acute kidney injury, acute hypoxic respiratory failure, hypotension, and CHF Patient seen and examined, clinical improving, no as emotional today Hospitalist Physical - Physical exam Narrative exam: Resting comfortably although intermittently The patient appeared well nourished and normally developed. Vital signs as documented. Head exam is unremarkable. No scleral icterus . Neck is without jugular venous distension, thyromegaly, or carotid bruits. Lungs are clear to auscultation. Cardiac exam reveals regular rate and Rhythm. Abdominal exam reveals normal bowel sounds, nontender, no organomegaly. Extremities are nonedematous and both femoral and pedal pulses are normal. DIE POLISHER: Alert awake oriented x2 no focal deficit noted intermittent delirium noted to - Constitutional Vitals: Temp Pulse Resp BP Pulse Ox 98.0 F 67 20 123/91 99 10/04/20 04:04 10/04/20 09:29 10/04/20 04:04 10/04/20 09:29 10/04/20 04:04 General appearance: Present: no acute distress HEART Score - HEART Score Troponin: Troponin T < 0.010 ng/mL (0.00-0.029) 09/22/20 05:38 Results - Labs CBC & Chem 7: 09/30/20 04:47 10/03/20 08:12 Labs: Laboratory Last Values WBC 9.3 K/mm3 (4.5-11.0) 09/30/20 04:47 RBC 2.47 M/mm3 (3.65-5.03) L 09/30/20 04:47 Hgb 8.1 gm/dl (11.8-15.2) L 09/30/20 04:47 Hct 23.9 % (35.5-45.6) L 09/30/20 04:47 MCV 97 fl (84-94) H 09/30/20 04:47 MCH 33 pg (28-32) H 09/30/20 04:47 MCHC 34 % (32-34) 09/30/20 04:47 RDW 14.2 % (13.2-15.2) 09/30/20 04:47 Plt Count 240 K/mm3 (140-440) 09/30/20 04:47 Lymph % (Auto) 4.3 % (13.4-35.0) L 09/27/20 04:00 Teller % (Auto) 6.0 % (0.0-7.3) 09/27/20 04:00 Eos % (Auto) 0.1 % (0.0-4.3) 09/27/20 04:00 Baso % (Auto) 0.0 % (0.0-1.8) 09/27/20 04:00 Lymph # (Auto) 0.6 K/mm3 (1.2-5.4) L 09/27/20 04:00 Teller # (Auto) 0.9 K/mm3 (0.0-0.8) H 09/27/20 04:00 Eos # (Auto) 0.0 K/mm3 (0.0-0.4) 09/27/20 04:00 Baso # (Auto) 0.0 K/mm3 (0.0-0.1) 09/27/20 04:00 Add Manual Diff Complete 09/23/20 04:36 Total Counted 100 09/23/20 04:36 Seg Neutrophils % 89.6 % (40.0-70.0) H 09/27/20 04:00 Seg Neuts % (Manual) 91.0 % (40.0-70.0) H 09/23/20 04:36 Band Neutrophils % 2.0 % 09/23/20 04:36 Lymphocytes % (Manual) 2.0 % (13.4-35.0) L 09/23/20 04:36 Monocytes % (Manual) 5.0 % (0.0-7.3) 09/23/20 04:36 Nucleated RBC % Not Reportable 09/23/20 04:36 Seg Neutrophils # 13.1 K/mm3 (1.8-7.7) H 09/27/20 04:00 Seg Neutrophils # Man 12.9 K/mm3 (1.8-7.7) H 09/23/20 04:36 Band Neutrophils # 0.3 K/mm3 09/23/20 04:36 Abs Lymphs (Manual) 223 cells/uL (850-3900) L 09/19/20 13:35 Lymphocytes # (Manual) 0.3 K/mm3 (1.2-5.4) L 09/23/20 04:36 Abs React Lymphs (Man) 0.0 K/mm3 09/23/20 04:36 Monocytes # (Manual) 0.7 K/mm3 (0.0-0.8) 09/23/20 04:36 Eosinophils # (Manual) 0.0 K/mm3 (0.0-0.4) 09/23/20 04:36 Basophils # (Manual) 0.0 K/mm3 (0.0-0.1) 09/23/20 04:36 Metamyelocytes # 0.0 K/mm3 09/23/20 04:36 Myelocytes # 0.0 K/mm3 09/23/20 04:36 Promyelocytes # 0.0 K/mm3 09/23/20 04:36 Blast Cells # 0.0 K/mm3 09/23/20 04:36 WBC Morphology Not Reportable 09/23/20 04:36 Hypersegmented Neuts Not Reportable 09/23/20 04:36 Hyposegmented Neuts Not Reportable 09/23/20 04:36 Hypogranular Neuts Not Reportable 09/23/20 04:36 Smudge Cells Not Reportable 09/23/20 04:36 Toxic Granulation Not Reportable 09/23/20 04:36 Toxic Vacuolation Not Reportable 09/23/20 04:36 Dohle Bodies Not Reportable 09/23/20 04:36 Pelger-Huet Anomaly Not Reportable 09/23/20 04:36 Vinh Rods Not Reportable 09/23/20 04:36 Platelet Estimate Consistent w auto 09/23/20 04:36 Clumped Platelets Not Reportable 09/23/20 04:36 Plt Clumps, EDTA Not Reportable 09/23/20 04:36 Large Platelets Not Reportable 09/23/20 04:36 Giant Platelets Not Reportable 09/23/20 04:36 Platelet Satelliting Not Reportable 09/23/20 04:36 Plt Morphology Comment Not Reportable 09/23/20 04:36 RBC Morphology Not Reportable 09/23/20 04:36 Dimorphic RBCs Not Reportable 09/23/20 04:36 Polychromasia Not Reportable 09/23/20 04:36 Hypochromasia Not Reportable 09/23/20 04:36 Poikilocytosis Not Reportable 09/23/20 04:36 Anisocytosis 1+ 09/23/20 04:36 Microcytosis Not Reportable 09/23/20 04:36 Macrocytosis Not Reportable 09/23/20 04:36 Spherocytes Not Reportable 09/23/20 04:36 Pappenheimer Bodies Not Reportable 09/23/20 04:36 Sickle Cells Not Reportable 09/23/20 04:36 Target Cells Few 09/23/20 04:36 Tear Drop Cells Not Reportable 09/23/20 04:36 Ovalocytes Not Reportable 09/23/20 04:36 Helmet Cells Not Reportable 09/23/20 04:36 [place] Bodies Not Reportable 09/23/20 04:36 [place] Rings Not Reportable 09/23/20 04:36 Hermon Cells Not Reportable 09/23/20 04:36 Bite Cells Not Reportable 09/23/20 04:36 Crenated Cell Not Reportable 09/23/20 04:36 Elliptocytes Not Reportable 09/23/20 04:36 Acanthocytes (Spur) Not Reportable 09/23/20 04:36 Rouleaux Not Reportable 09/23/20 04:36 Hemoglobin C Crystals Not Reportable 09/23/20 04:36 Schistocytes Not Reportable 09/23/20 04:36 Malaria parasites Not Reportable 09/23/20 04:36 Zachary Bodies Not Reportable 09/23/20 04:36 Hem Pathologist Commnt No 09/23/20 04:36 PT 15.7 Sec. (12.2-14.9) H 09/24/20 12:13 INR 1.27 (0.87-1.13) H 09/24/20 12:13 APTT 25.7 Sec. (24.2-36.6) 09/24/20 12:13 D-Dimer 1772.86 ng/mlDDU (0-234) H 09/24/20 05:00 Heparin Anti-Xa Level 0.10 U.I./ml (0.3-0.7) L 09/20/20 04:00 Heparin Anti-Xa, Unfract Negative (Negative) 09/22/20 15:12 ABG pH 7.508 (7.320-7.450) H 09/17/20 10:28 POC ABG pCO2 22.8 mmHg (32.0-48.0) L 09/17/20 10:28 POC ABG pO2 66.8 mmHg (83-108) L 09/17/20 10:28 POC ABG HCO3 17.7 09/17/20 10:28 ABG O2 Saturation 93.4 (0-100) 09/17/20 10:28 POC ABG Base Excess -3.5 09/17/20 10:28 ABG Hemoglobin 12.7 (12.0-17.5) 09/17/20 10:28 ABG Oxyhemoglobin 92.7 (94-98) L 09/17/20 10:28 ABG Methemoglobin 0.3 (0.0-1.5) 09/17/20 10:28 ABG Sodium 127.4 mmol/L (136.0-145.0) L 09/17/20 10:28 ABG Potassium 4.7 mmol/L (3.40-4.50) H 09/17/20 10:28 ABG Chloride 101.0 mmol/L (98-107) 09/17/20 10:28 ABG Glucose 121 mg/dL (65-95) H 09/17/20 10:28 Carboxyhemoglobin 0.4 (0.5-1.5) L 09/17/20 10:28 FiO2 % 21 09/17/20 10:28 Sodium 140 mmol/L (137-145) 10/03/20 08:12 Potassium 5.4 mmol/L (3.6-5.0) H D 10/03/20 08:12 Chloride 106.9 mmol/L (98-107) 10/03/20 08:12 Carbon Dioxide 27 mmol/L (22-30) 10/03/20 08:12 Anion Gap 12 mmol/L 10/03/20 08:12 BUN 48 mg/dL (9-20) H 10/03/20 08:12 Creatinine 2.2 mg/dL (0.8-1.3) H 10/03/20 08:12 Estimated GFR 36 ml/min 10/03/20 08:12 BUN/Creatinine Ratio 22 % 10/03/20 08:12 Glucose 84 mg/dL (75-100) 10/03/20 08:12 POC Glucose 72 mg/dL (70-105) 09/30/20 11:45 Lactic Acid 1.00 mmol/L (0.7-2.0) 09/20/20 17:10 Calcium 8.0 mg/dL (8.4-10.2) L 10/03/20 08:12 Phosphorus 2.90 mg/dL (2.5-4.5) 09/26/20 07:06 Magnesium 1.70 mg/dL (1.7-2.3) 09/26/20 07:06 Ferritin 1190.0 ng/mL (30.0-300.0) H 09/24/20 05:00 Total Bilirubin 0.80 mg/dL (0.1-1.2) 09/30/20 04:47 AST 14 units/L (5-40) 09/30/20 04:47 ALT 21 units/L (7-56) 09/30/20 04:47 Alkaline Phosphatase 81 units/L (35-129) 09/30/20 04:47 Lactate Dehydrogenase 276 units/L (91-180) H 09/24/20 05:00 Total Creatine Kinase 20 units/L (55-170) L 09/19/20 03:30 Troponin T < 0.010 ng/mL (0.00-0.029) 09/22/20 05:38 C-Reactive Protein 4.20 mg/dL (0.00-1.30) H 09/24/20 05:00 NT-Pro-B Natriuret Pep 01414 pg/mL (0-900) H 09/17/20 10:47 Serum Total Protein 5.5 g/dL (6.1-8.1) L 09/30/20 04:47 Total Protein 5.9 g/dL (6.3-8.2) L 09/30/20 04:47 Albumin 2.1 g/dL (3.8-4.8) L 09/30/20 04:47 Albumin 2.2 g/dL (3.9-5) L 09/30/20 04:47 Albumin/Globulin Ratio 0.6 % 09/30/20 04:47 Qxnnn-1-Ixswthuuv 0.3 g/dL (0.2-0.3) 09/30/20 04:47 Vkazj-1-Bbrqjdbyh 0.7 g/dL (0.5-0.9) 09/30/20 04:47 Beta Globulins 0.3 g/dL (0.2-0.5) 09/30/20 04:47 Gamma Globulins 1.7 g/dL (0.8-1.7) 09/30/20 04:47 Abnorm Protein Band 1 see below 09/30/20 04:47 PEP Interpretation see below 09/30/20 04:47 Triglycerides 137 mg/dL (2-149) 09/17/20 13:54 Cholesterol 48 mg/dL (50-199) L 09/17/20 13:54 LDL Cholesterol Direct 4 mg/dL (50-130) L 09/17/20 13:54 HDL Cholesterol 9 mg/dL (40-59) L 09/17/20 13:54 Cholesterol/HDL Ratio 5.33 % 09/17/20 13:54 Free PSA See scanned result 09/17/20 17:35 % Free PSA Calc See scanned result 09/17/20 17:35 Total PSA See scanned result 09/17/20 17:35 Serotonin Release Assay See scanned result 09/22/20 15:12 Procalcitonin 2.10 ng/mL (<0.15) 09/25/20 06:40 PTH Intact 161.4 pg/mL (15-65) H 09/19/20 03:30 Arterial Blood Glucose 121 mg/dL (65-95) H 09/17/20 10:28 Arterial Blood Ionized Calcium 5.0 mg/dL (4.6-5.3) 09/17/20 10:28 Urine Color Yellow (Yellow) 09/18/20 12:00 Urine Turbidity Cloudy (Clear) 09/18/20 12:00 Urine pH 5.0 (5.0-7.0) 09/18/20 12:00 Ur Specific [place] 1.009 (1.003-1.030) 09/18/20 12:00 Urine Protein 30 mg/dl mg/dL (Negative) 09/18/20 12:00 Urine Glucose (UA) Neg mg/dL (Negative) 09/18/20 12:00 Urine Ketones Neg mg/dL (Negative) 09/18/20 12:00 Urine Blood Sm (Negative) 09/18/20 12:00 Urine Nitrite Neg (Negative) 09/18/20 12:00 Urine Bilirubin Neg (Negative) 09/18/20 12:00 Urine Urobilinogen < 2.0 mg/dL (<2.0) 09/18/20 12:00 Ur Leukocyte Esterase Mod (Negative) 09/18/20 12:00 Urine WBC (Auto) 71.0 /HPF (0.0-6.0) H 09/18/20 12:00 Urine RBC (Auto) 2.0 /HPF (0.0-6.0) 09/18/20 12:00 U Epithel Cells (Auto) 1.0 /HPF (0-13.0) 09/18/20 12:00 Urine Bacteria (Auto) 4+ /HPF (Negative) 09/18/20 12:00 Urine WBC Clumps 2+ /HPF 09/18/20 12:00 Hyaline Casts 3 /LPF 09/18/20 12:00 Granular Casts 3 /LPF 09/18/20 12:00 Urine Mucus Few /HPF 09/18/20 12:00 Urine Eosinophils None seen (None Seen) 09/19/20 03:15 Urine Creatinine 61.0 mg/dL (0.1-20.0) H 09/18/20 12:00 Urine Sodium 62 mmol/L 09/18/20 12:00 Random Vancomycin 12.7 ug/mL (0-40.0) 09/19/20 03:30 Valproic Acid 17.8 ug/mL (50-100) L 10/03/20 08:12 Heparin-induced Plt Ab Weak positive (Negative) H 09/22/20 15:12 UF Heparin High Dose 0 % Release 09/22/20 15:12 CORAZON UFH Low Dose 0.1 0 % Release 09/22/20 15:12 [place]ON UFH Low Dose 0.5 0 % Release 09/22/20 15:12 Lymph Enumerat CD4/CD8 0.70 (0.86-5.00) L 09/19/20 13:35 % CD3 Cells 79 % (57-85) 09/19/20 13:35 Absolute CD3 Count 175 cells/uL (840-3060) L 09/19/20 13:35 % CD4 Cells 31 % (30-61) 09/19/20 13:35 Absolute CD4 Count 70 cells/uL (490-1740) L 09/19/20 13:35 % CD8 Cells 45 % (12-42) H 09/19/20 13:35 Absolute CD8 Count 101 cells/uL (180-1170) L 09/19/20 13:35 % CD19 Cells 12 % (6-29) 09/19/20 13:35 Absolute CD19 Count 26 cells/uL (110-660) L 09/19/20 13:35 Coronavirus (PCR) Positive (Negative) A 10/01/20 08:30 Hepatitis A IgM Ab Non-reactive (NonReactive) 09/20/20 17:10 Hep Bs Antigen Non-reactive (Negative) 09/20/20 17:10 Hep B Core IgM Ab Non-reactive (NonReactive) 09/20/20 17:10 Hepatitis C Antibody Non-reactive (NonReactive) 09/20/20 17:10 HIV-1 RNA PCR copies/ml 67 Copies/mL H 09/19/20 13:35 HIV-1 RNA (PCR) log 1.83 Log cps/mL H 09/19/20 13:35 Gardner/IV: Voiding Method Condom Catheter Active Medications - Current Medications Current Medications: Generic Name Dose Route Start Last Admin Trade Name Freq PRN Reason Stop Dose Admin Acetaminophen 650 mg 09/17/20 13:52 09/30/20 21:12 Acetaminophen 325 Mg Tab PO 650 mg Q4H PRN Administration Pain MILD(1-3)/Fever >100.5/ANGEL Albuterol 2.5 mg 09/17/20 13:52 09/17/20 20:47 Albuterol 2.5 Mg/3 Ml Nebu IH 2.5 mg Q4HRT PRN Administration Shortness Of Breath Amiodarone HCl 200 mg 10/01/20 22:00 10/04/20 09:29 Amiodarone 200 Mg Tab PO 200 mg BID EDIE Administration Lipase/Protease/Amylase 1 each 09/20/20 13:10 Lipase 10,500/Protease 25,000/Amylase 43,750 (Units) Dr Patrick FEEDTUBE PRN PRN For Clogged Feeding Tube Apixaban 2.5 mg 09/24/20 12:00 10/04/20 09:28 Apixaban 2.5 Mg Tab PO 2.5 mg Q12HR EDIE Administration Protocol Ascorbic Acid 500 mg 09/20/20 22:00 10/04/20 09:28 Ascorbic Acid 500 Mg Tab PO 500 mg BID EDIE Administration Cholecalciferol 1,000 unit 09/21/20 10:00 10/04/20 09:29 Cholecalciferol (Vit D3) 1000 Unit (25 Mcg) Tab PO 1,000 unit QDAY EDIE Administration Emtricitabine 200 mg 09/30/20 11:00 10/02/20 11:45 Emtricitabine 200 Mg Cap PO 200 mg Q48H EDIE Administration Famotidine 20 mg 09/24/20 10:00 10/04/20 09:29 Famotidine 20 Mg Tab PO 20 mg DAILY EDIE Administration Haloperidol Lactate 5 mg 10/01/20 11:34 10/02/20 17:04 Haloperidol Lactate 5 Mg/1 Ml Inj IM 5 mg Q6H PRN Administration Agitation Heparin Sodium (Porcine) 3,000 unit 09/20/20 10:06 Heparin 10,000 Units/10 Ml Vial IV VIRGIL PRN hemodialysis Sodium Chloride 100 mls @ 999 mls/hr 09/20/20 10:06 Nacl 0.9% IV VIRGIL PRN Hypotension Metoprolol Tartrate 5 mg 09/19/20 19:06 09/24/20 10:59 Metoprolol Tartrate 5 Mg/5 Ml Inj IV 5 mg Q8HR PRN Administration HR > 135 Minute Metoprolol Tartrate 6.25 mg 10/03/20 22:00 10/04/20 09:29 Metoprolol Tartrate 25 Mg Tab PO 6.25 mg BID EDIE Administration Midodrine 5 mg 09/22/20 12:00 10/04/20 08:22 Midodrine 5 Mg Tab PO 5 mg TID@0800,1200,1600 EDIE Administration Ondansetron HCl 4 mg 09/17/20 13:52 Ondansetron 4 Mg/2 Ml Inj IV Q8H PRN Nausea And Vomiting Quetiapine Fumarate 12.5 mg 10/03/20 22:00 10/03/20 23:08 Quetiapine 25 Mg Tab PO 12.5 mg QHS EDIE Administration Quetiapine Fumarate 12.5 mg 10/04/20 10:00 10/04/20 09:39 Quetiapine 25 Mg Tab PO 12.5 mg QAM EDIE Administration Simple Syrup 15 ml 09/20/20 13:10 Simple Syrup 15 Ml FEEDTUBE PRN PRN Hypoglycemia Simple Syrup 30 ml 09/20/20 13:10 Simple Syrup 15 Ml FEEDTUBE PRN PRN Hypoglycemia Sodium Bicarbonate 325 mg 09/20/20 13:10 Sodium Bicarbonate 325 Mg Tab FEEDTUBE PRN PRN For Clogged Feeding Tube Sodium Chloride 10 ml 09/17/20 22:00 10/04/20 10:00 Sodium Chloride 0.9% 10 Ml Flush Syringe IV 10 ml BID EDIE Administration Sodium Chloride 10 ml 09/17/20 13:52 09/24/20 09:15 Sodium Chloride 0.9% 10 Ml Flush Syringe IV 10 ml PRN PRN Administration LINE FLUSH Tenofovir Disoproxil Fumarate 300 mg 09/30/20 11:00 10/02/20 11:45 Tenofovir 300 Mg Tab PO 300 mg Q48H EDIE Administration Valproic Acid 250 mg 10/03/20 22:00 10/03/20 23:07 Valproic Acid 250 Mg Cap PO 250 mg BID EDIE Administration Zinc Sulfate 220 mg 09/21/20 10:00 10/04/20 09:28 Zinc Sulfate 220 Mg Cap PO 220 mg QDAY EDIE Administration Nutrition/Malnutrition Assess - Dietary Evaluation Nutrition/Malnutrition Findings: Nutrition Notes Start: 09/18/20 11:30 Freq: Status: Active Protocol: Document 09/27/20 13:30 [facility] (Rec: 09/27/20 13:40 [facility] [id number]) Nutrition Notes Initial or Follow up Reassessment Current Diagnosis Acute Kidney Injury,Sepsis, Hypertension,Heart Failure, Respiratory Failure Other Pertinent Diagnosis COVID-19 (+), AMS, UTI, afib with RVR, HIV (+) Current Diet TF - Nepro at 45ml/hr Labs/Tests BUN 67 Cr 2.3 Pertinent Medications Reviewed Height 6 ft 1 in Weight 73 kg [place] Body Weight (kg) 83.63 BMI 21.2 Weight Status Underweight Subjective/Other Information Pt pulled out NGT yesterday, however, it was re-inserted and confirmed by K[facility]. Spoke with RN via phone at 13:28. Pt tolerating TF at goal rate. Percent of energy/protein needs met: 100% energy 99% pro Burn Absent Trauma Absent #2 Nutrition Diagnosis Inadequate oral intake Diagnosis Progress(for reassessment Continues documentation) Is patient on ventilator? No Is Patient Ambulatory and/or Out of Bed No REE-([facility]-confined to bed) 1858.500 Kcal/Kg value to use for calculation 30 Approximate Energy Requirements Using 2190 kcal/Kg Calculation Used for Recommendations Kcal/kg Additional Notes Pro needs >1.2g/kg: >88g/day Fluid needs 1-1.5L/day Nutrition Intervention Nutrition Support: Continue Nepro at 45 ml/hr with a free water flush of 200 ml q4h Kcal 1,944 Protein (gm) 87 Fluid (mL) 785 Goal #1 TF tolerance Goal #2 TF to meet 75-100% energy and pro needs Goal #3 Wt maintenance and/or gain Follow-Up By: 10/04/20 Additional Comments F/U: stable TF, wt
[2020-10-04] MEDS: EMTRICITABINE 200 MG CAP PO SCH (11:07)
[2020-10-04] MEDS: TENOFOVIR 300 MG TAB PO SCH (11:07)
[2020-10-04] MEDS: DOLUTEGRAVIR 50 MG TAB PO SCH (11:07)
[2020-10-04] MEDS: VALPROIC ACID 250 MG CAP PO SCH ×2 (11:59→23:24)
[2020-10-04] MEDS: HALOPERIDOL LACTATE 5 MG/1 ML INJ IM PRN (13:32)
--- NOTE | 2020-10-04 17:33 | Progress Note ---
Assessment and Plan 70 YO Male with HIV, HTN, Atrial Fib currently of therapeutic anticoagulation with Xarelto presents to ED for evaluation. Patient reports "I just can't breathe". Patient states that he has experienced shortness of breath over the past 3 days with persistently worsening symptoms over the same timeframe. EMS notified and upon arrival the patient was found to be in distress with a pulse oximetry of 85% on room air. The patient was placed on supplemental oxygen and subsequently transported to [facility] for further care and evaluation of the aforementioned symptoms. The patient was admitted to this hospital 2 days ago, 09/15, for similar complaints and was found to have A. fib with RVR, hyponatremia, hypomagnesemia and acute kidney injury. Shortly after the patient was admitted he left AMA. The patient was seen and evaluated in the emergency department. All lab and imaging studies reviewed. The patient was also found to have a pulse oximetry of 86% on room air which is consistent with acute hypoxemic respiratory failure. The patient was found to have atrial fibrillation with rapid ventricular response, metabolic acidosis, acute kidney injury, as well as symptoms consistent with acute CHF decompensation. The patient was found to be hypotensive with a blood pressure of 78/43 which resulted in a MAP less than 65. Patient admitted to [facility] due to increased risk of cardiopulmonary decompensation. Patient treated with antiarrhythmic therapy in the emergency department, and initiated on CHF protocol. Cardiology and Nep hrology and pulmonary and critical care consulted. Patient sleeping and patient presently resting on room air. O2 saturation running 98%. No acute respiratory distress at rest. Patient low grade fever, with no leukocytosis. Patient's coronavirus test was positive. Patient's inflammatory markers: D-dimer: 1772.86, Ferritin: 1,190, Lactic: 1.00, C-reactive protein: 4.20, NT Pro-BNP: 18,204, Troponin < 0.01, CPK: 20, LDH: 276 Medications include apixaban, albuterol, famotidine, tenofovir. Chest x-ray done on 09/20/20 showed no acute pulmonary or pleural findings. No pneumothorax. - Patient Problems (1) Acute hypoxemic respiratory failure Current Visit: Yes Status: Acute Plan to address problem: Patient resting on room air. O2 saturation running 98%. No acute respiratory distress at rest. Medications include albuterol. (2) CHF (congestive heart failure) Current Visit: Yes Status: Acute Qualifiers: Heart failure type: systolic Heart failure chronicity: acute Qualified Code(s): I50.21 - Acute systolic (congestive) heart failure Plan to address problem: Management as per cardiology (3) LOLI (acute kidney injury) Current Visit: Yes Status: Acute Plan to address problem: Management as per nephrology. (4) AMS (altered mental status) Current Visit: Yes Status: Acute Qualifiers: Altered mental status type: somnolence Qualified Code(s): R40.0 - Somnolence Plan to address problem: Management as per primary team. (5) Atrial fibrillation with RVR Current Visit: Yes Status: Acute Plan to address problem: Management as cardiology. Patient is on Apixaban (6) Coronavirus infection Current Visit: Yes Status: Acute Plan to address problem: Patients [place] virus PCR is positive. Management as per ID. (7) HIV (human immunodeficiency virus infection) Current Visit: Yes Status: Chronic Plan to address problem: Management as per ID. Subjective Date of service: 10/04/20 Principal diagnosis: Sepsis, AF with RVR Interval history: 70 YO Male with HIV, HTN, Atrial Fib currently of therapeutic anticoagulation with Xarelto presents to ED for evaluation. Patient reports "I just can't breathe". Patient states that he has experienced shortness of breath over the past 3 days with persistently worsening symptoms over the same timeframe. EMS notified and upon arrival the patient was found to be in distress with a pulse oximetry of 85% on room air. The patient was placed on supplemental oxygen and subsequently transported to [facility] for further care and evaluation of the aforementioned symptoms. The patient was admitted to this hospital 2 days ago, 09/15, for similar complaints and was found to have A. fib with RVR, hyponatremia, hypomagnesemia and acute kidney injury. Shortly after the patient was admitted he left AMA. The patient was seen and evaluated in the emergency department. All lab and imaging studies reviewed. The patient was also found to have a pulse oximetry of 86% on room air which is consistent with acute hypoxemic respiratory failure. The patient was found to have atrial fibrillation with rapid ventricular response, metabolic acidosis, acute kidney injury, as well as symptoms consistent with acute CHF decompensation. The patient was found to be hypotensive with a blood pressure of 78/43 which resulted in a MAP less than 65. Patient admitted to [facility] due to increased risk of cardiopulmonary decompensation. Patient treated with antiarrhythmic therapy in the emergency department, and initiated on CHF protocol. Cardiology and Nephrology and pulmonary and critical care consulted. Patient sleeping and patient presently resting on room air. O2 saturation running 98%. No acute respiratory distress at rest. Patient low grade fever, with no leukocytosis. Patient's coronavirus test was positive. Patient's inflammatory markers: D-dimer: 1772.86, Ferritin: 1,190, Lactic: 1.00, C-reactive protein: 4.20, NT Pro-BNP: 18,204, Troponin < 0.01, CPK: 20, LDH: 276 Medications include apixaban, albuterol, famotidine, tenofovir. Chest x-ray done on 09/20/20 showed no acute pulmonary or pleural findings. No pneumothorax. Objective Vital Signs - 12hr 10/04/20 10/04/20 04:04 09:29 Temperature 98.0 F Pulse Rate 67 67 Respiratory 20 Rate Blood Pressure 123/91 123/91 O2 Sat by Pulse 99 Oximetry Constitutional: no acute distress, asleep, other (elderly male without increased respiratory effort at rest) Eyes: non-icteric ENT: oropharynx moist Neck: supple, no lymphadenopathy, no JVD Effort: mildly labored Ascultation: Bilateral: rhonchi, other (right SCVL Trialysis catheter) Percussion: Bilateral: not dull Cardiovascular: irregular rhythm Gastrointestinal: normoactive bowel sounds, soft, non-tender, non-distended Integumentary: normal Extremities: no cyanosis, no edema, pulses normal, no ischemia or petechiae Neurologic: non-focal exam (grossly), pupils equal and round, CN II-XII normal, motor strength normal and, other (mild delirium) Psychiatric: other (mild delirium) CBC and BMP: 09/30/20 04:47 10/03/20 08:12 ABG, PT/INR, D-dimer: ABG ABG pH 7.508 (7.320-7.450) H 09/17/20 10:28 POC ABG pCO2 22.8 mmHg (32.0-48.0) L 09/17/20 10:28 POC ABG pO2 66.8 mmHg (83-108) L 09/17/20 10:28 POC ABG HCO3 17.7 09/17/20 10:28 ABG O2 Saturation 93.4 (0-100) 09/17/20 10:28 PT/INR, D-dimer PT 15.7 Sec. (12.2-14.9) H 09/24/20 12:13 INR 1.27 (0.87-1.13) H 09/24/20 12:13 D-Dimer 1772.86 ng/mlDDU (0-234) H 09/24/20 05:00 Abnormal lab findings: Abnormal Labs 09/17/20 09/17/20 09/17/20 10:28 10:47 10:47 WBC 11.1 H RBC 3.44 L Hgb 11.2 L Hct 32.8 L MCV 95 H MCH MCHC Plt Count Lymph % (Auto) [place] % (Auto) Lymph # (Auto) [place] # (Auto) Seg Neutrophils % Seg Neuts % (Manual) Lymphocytes % (Manual) 4.0 L Monocytes % (Manual) Nucleated RBC % Seg Neutrophils # Seg Neutrophils # Man 10.7 H Abs Lymphs (Manual) Lymphocytes # (Manual) 0.4 L PT 32.9 H INR 3.16 H APTT 51.1 H D-Dimer Heparin Anti-Xa Level ABG pH 7.508 H POC ABG pCO2 22.8 L POC ABG pO2 66.8 L ABG Oxyhemoglobin 92.7 L ABG Sodium 127.4 L ABG Potassium 4.7 H ABG Glucose 121 H Carboxyhemoglobin 0.4 L Sodium Potassium Chloride Carbon Dioxide BUN Creatinine Glucose POC Glucose Calcium Phosphorus Ferritin Total Bilirubin AST ALT Alkaline Phosphatase Lactate Dehydrogenase Total Creatine Kinase Troponin T C-Reactive Protein NT-Pro-B Natriuret Pep Serum Total Protein Total Protein Albumin Cholesterol LDL Cholesterol Direct HDL Cholesterol PTH Intact Arterial Blood Glucose 121 H Urine WBC (Auto) Urine Creatinine Valproic Acid Heparin-induced Plt Ab Lymph Enumerat CD4/CD8 Absolute CD3 Count Absolute CD4 Count % CD8 Cells Absolute CD8 Count Absolute CD19 Count Coronavirus (PCR) HIV-1 RNA PCR copies/ml HIV-1 RNA (PCR) log 09/17/20 09/17/20 09/17/20 10:47 10:47 13:54 WBC RBC Hgb Hct MCV MCH MCHC Plt Count Lymph % (Auto) [place] % (Auto) Lymph # (Auto) [place] # (Auto) Seg Neutrophils % Seg Neuts % (Manual) Lymphocytes % (Manual) Monocytes % (Manual) Nucleated RBC % Seg Neutrophils # Seg Neutrophils # Man Abs Lymphs (Manual) Lymphocytes # (Manual) PT INR APTT D-Dimer Heparin Anti-Xa Level ABG pH POC ABG pCO2 POC ABG pO2 ABG Oxyhemoglobin ABG Sodium ABG Potassium ABG Glucose Carboxyhemoglobin Sodium 125 L Potassium Chloride 95.3 L Carbon Dioxide 17 L BUN 64 H Creatinine 4.6 H D Glucose 104 H POC Glucose Calcium Phosphorus Ferritin Total Bilirubin AST 69 H ALT Alkaline Phosphatase Lactate Dehydrogenase Total Creatine Kinase Troponin T 0.061 H D 0.058 H C-Reactive Protein NT-Pro-B Natriuret Pep 40835 H Serum Total Protein Total Protein Albumin 1.9 L Cholesterol 48 L LDL Cholesterol Direct 4 L HDL Cholesterol 9 L PTH Intact Arterial Blood Glucose Urine WBC (Auto) Urine Creatinine Valproic Acid Heparin-induced Plt Ab Lymph Enumerat CD4/CD8 Absolute CD3 Count Absolute CD4 Count % CD8 Cells Absolute CD8 Count Absolute CD19 Count Coronavirus (PCR) HIV-1 RNA PCR copies/ml HIV-1 RNA (PCR) log 09/17/20 09/17/20 09/17/20 16:36 17:35 17:35 WBC RBC 3.25 L Hgb 10.7 L Hct 31.1 L MCV 96 H MCH 33 H MCHC Plt Count Lymph % (Auto) [place] % (Auto) Lymph # (Auto) [place] # (Auto) Seg Neutrophils % Seg Neuts % (Manual) Lymphocytes % (Manual) Monocytes % (Manual) Nucleated RBC % Seg Neutrophils # Seg Neutrophils # Man Abs Lymphs (Manual) Lymphocytes # (Manual) PT 31.9 H INR 3.04 H APTT 50.9 H D-Dimer Heparin Anti-Xa Level ABG pH POC ABG pCO2 POC ABG pO2 ABG Oxyhemoglobin ABG Sodium ABG Potassium ABG Glucose Carboxyhemoglobin Sodium Potassium Chloride Carbon Dioxide BUN Creatinine Glucose POC Glucose Calcium Phosphorus Ferritin Total Bilirubin AST ALT Alkaline Phosphatase Lactate Dehydrogenase Total Creatine Kinase Troponin T 0.057 H C-Reactive Protein NT-Pro-B Natriuret Pep Serum Total Protein Total Protein Albumin Cholesterol LDL Cholesterol Direct HDL Cholesterol PTH Intact Arterial Blood Glucose Urine WBC (Auto) Urine Creatinine Valproic Acid Heparin-induced Plt Ab Lymph Enumerat CD4/CD8 Absolute CD3 Count Absolute CD4 Count % CD8 Cells Absolute CD8 Count Absolute CD19 Count Coronavirus (PCR) HIV-1 RNA PCR copies/ml HIV-1 RNA (PCR) log 09/17/20 09/18/20 09/18/20 17:35 03:19 03:19 WBC RBC 3.32 L Hgb 10.9 L Hct 32.0 L MCV 96 H MCH 33 H MCHC Plt Count 138 L Lymph % (Auto) [place] % (Auto) Lymph # (Auto) [place] # (Auto) Seg Neutrophils % Seg Neuts % (Manual) 95.0 H Lymphocytes % (Manual) 3.0 L Monocytes % (Manual) Nucleated RBC % Seg Neutrophils # Seg Neutrophils # Man 8.1 H Abs Lymphs (Manual) Lymphocytes # (Manual) 0.3 L PT INR APTT D-Dimer Heparin Anti-Xa Level ABG pH POC ABG pCO2 POC ABG pO2 ABG Oxyhemoglobin ABG Sodium ABG Potassium ABG Glucose Carboxyhemoglobin Sodium Potassium Chloride Carbon Dioxide 16 L BUN 70 H Creatinine 4.6 H 4.7 H Glucose 104 H POC Glucose Calcium 8.2 L Phosphorus Ferritin Total Bilirubin 1.60 H AST 128 H ALT 67 H Alkaline Phosphatase Lactate Dehydrogenase Total Creatine Kinase Troponin T C-Reactive Protein NT-Pro-B Natriuret Pep Serum Total Protein Total Protein 5.2 L D Albumin 2.5 L Cholesterol LDL Cholesterol Direct HDL Cholesterol PTH Intact Arterial Blood Glucose Urine WBC (Auto) Urine Creatinine Valproic Acid Heparin-induced Plt Ab Lymph Enumerat CD4/CD8 Absolute CD3 Count Absolute CD4 Count % CD8 Cells Absolute CD8 Count Absolute CD19 Count Coronavirus (PCR) HIV-1 RNA PCR copies/ml HIV-1 RNA (PCR) log 09/18/20 09/18/20 09/18/20 09:39 12:00 12:00 WBC RBC Hgb Hct MCV MCH MCHC Plt Count Lymph % (Auto) [place] % (Auto) Lymph # (Auto) [place] # (Auto) Seg Neutrophils % Seg Neuts % (Manual) Lymphocytes % (Manual) Monocytes % (Manual) Nucleated RBC % Seg Neutrophils # Seg Neutrophils # Man Abs Lymphs (Manual) Lymphocytes # (Manual) PT INR APTT D-Dimer Heparin Anti-Xa Level ABG pH POC ABG pCO2 POC ABG pO2 ABG Oxyhemoglobin ABG Sodium ABG Potassium ABG Glucose Carboxyhemoglobin Sodium Potassium Chloride Carbon Dioxide BUN Creatinine Glucose POC Glucose Calcium Phosphorus Ferritin Total Bilirubin AST ALT Alkaline Phosphatase Lactate Dehydrogenase Total Creatine Kinase Troponin T C-Reactive Protein NT-Pro-B Natriuret Pep Serum Total Protein Total Protein Albumin Cholesterol LDL Cholesterol Direct HDL Cholesterol PTH Intact Arterial Blood Glucose Urine WBC (Auto) 71.0 H Urine Creatinine 61.0 H Valproic Acid Heparin-induced Plt Ab Lymph Enumerat CD4/CD8 Absolute CD3 Count Absolute CD4 Count % CD8 Cells Absolute CD8 Count Absolute CD19 Count Coronavirus (PCR) Positive A HIV-1 RNA PCR copies/ml HIV-1 RNA (PCR) log 09/18/20 09/18/20 09/18/20 15:07 15:07 18:33 WBC RBC Hgb 10.7 L Hct 31.3 L MCV MCH MCHC Plt Count Lymph % (Auto) [place] % (Auto) Lymph # (Auto) [place] # (Auto) Seg Neutrophils % Seg Neuts % (Manual) Lymphocytes % (Manual) Monocytes % (Manual) Nucleated RBC % Seg Neutrophils # Seg Neutrophils # Man Abs Lymphs (Manual) Lymphocytes # (Manual) PT 20.3 H INR 1.73 H APTT 40.8 H D-Dimer Heparin Anti-Xa Level 1.09 H ABG pH POC ABG pCO2 POC ABG pO2 ABG Oxyhemoglobin ABG Sodium ABG Potassium ABG Glucose Carboxyhemoglobin Sodium Potassium Chloride Carbon Dioxide BUN Creatinine Glucose POC Glucose Calcium Phosphorus Ferritin Total Bilirubin AST ALT Alkaline Phosphatase Lactate Dehydrogenase Total Creatine Kinase Troponin T C-Reactive Protein NT-Pro-B Natriuret Pep Serum Total Protein Total Protein Albumin Cholesterol LDL Cholesterol Direct HDL Cholesterol PTH Intact Arterial Blood Glucose Urine WBC (Auto) Urine Creatinine Valproic Acid Heparin-induced Plt Ab Lymph Enumerat CD4/CD8 Absolute CD3 Count Absolute CD4 Count % CD8 Cells Absolute CD8 Count Absolute CD19 Count Coronavirus (PCR) HIV-1 RNA PCR copies/ml HIV-1 RNA (PCR) log 09/19/20 09/19/20 09/19/20 03:30 03:30 03:30 WBC RBC 3.29 L Hgb 10.9 L Hct 30.9 L MCV MCH 33 H MCHC 35 H Plt Count Lymph % (Auto) [place] % (Auto) Lymph # (Auto) [place] # (Auto) Seg Neutrophils % Seg Neuts % (Manual) Lymphocytes % (Manual) Monocytes % (Manual) Nucleated RBC % Seg Neutrophils # Seg Neutrophils # Man Abs Lymphs (Manual) Lymphocytes # (Manual) PT INR APTT D-Dimer Heparin Anti-Xa Level ABG pH POC ABG pCO2 POC ABG pO2 ABG Oxyhemoglobin ABG Sodium ABG Potassium ABG Glucose Carboxyhemoglobin Sodium 133 L Potassium Chloride Carbon Dioxide 17 L BUN 94 H Creatinine 5.0 H Glucose 120 H POC Glucose Calcium Phosphorus 6.30 H Ferritin Total Bilirubin 2.40 H AST 163 H ALT 109 H Alkaline Phosphatase 160 H Lactate Dehydrogenase Total Creatine Kinase 20 L Troponin T C-Reactive Protein NT-Pro-B Natriuret Pep Serum Total Protein Total Protein 6.2 L Albumin 2.0 L Cholesterol LDL Cholesterol Direct HDL Cholesterol PTH Intact 161.4 H Arterial Blood Glucose Urine WBC (Auto) Urine Creatinine Valproic Acid Heparin-induced Plt Ab Lymph Enumerat CD4/CD8 Absolute CD3 Count Absolute CD4 Count % CD8 Cells Absolute CD8 Count Absolute CD19 Count Coronavirus (PCR) HIV-1 RNA PCR copies/ml HIV-1 RNA (PCR) log 09/19/20 09/19/20 09/19/20 06:35 13:35 13:35 WBC RBC Hgb Hct MCV MCH MCHC Plt Count Lymph % (Auto) [place] % (Auto) Lymph # (Auto) [place] # (Auto) Seg Neutrophils % Seg Neuts % (Manual) Lymphocytes % (Manual) Monocytes % (Manual) Nucleated RBC % Seg Neutrophils # Seg Neutrophils # Man Abs Lymphs (Manual) 223 L Lymphocytes # (Manual) PT INR APTT D-Dimer Heparin Anti-Xa Level ABG pH POC ABG pCO2 POC ABG pO2 ABG Oxyhemoglobin ABG Sodium ABG Potassium ABG Glucose Carboxyhemoglobin Sodium Potassium Chloride Carbon Dioxide BUN Creatinine Glucose POC Glucose 123 H Calcium Phosphorus Ferritin Total Bilirubin AST ALT Alkaline Phosphatase Lactate Dehydrogenase Total Creatine Kinase Troponin T C-Reactive Protein NT-Pro-B Natriuret Pep Serum Total Protein Total Protein Albumin Cholesterol LDL Cholesterol Direct HDL Cholesterol PTH Intact Arterial Blood Glucose Urine WBC (Auto) Urine Creatinine Valproic Acid Heparin-induced Plt Ab Lymph Enumerat CD4/CD8 0.70 L Absolute CD3 Count 175 L Absolute CD4 Count 70 L % CD8 Cells 45 H Absolute CD8 Count 101 L Absolute CD19 Count 26 L Coronavirus (PCR) HIV-1 RNA PCR copies/ml 67 H HIV-1 RNA (PCR) log 1.83 H 09/19/20 09/20/20 09/20/20 23:37 04:00 04:00 WBC RBC 3.43 L Hgb 11.1 L Hct 32.2 L MCV MCH MCHC Plt Count 131 L Lymph % (Auto) [place] % (Auto) Lymph # (Auto) [place] # (Auto) Seg Neutrophils % Seg Neuts % (Manual) 88.0 H Lymphocytes % (Manual) 3.0 L Monocytes % (Manual) 9.0 H Nucleated RBC % Seg Neutrophils # Seg Neutrophils # Man 8.2 H Abs Lymphs (Manual) Lymphocytes # (Manual) 0.3 L PT INR APTT D-Dimer Heparin Anti-Xa Level 0.10 L ABG pH POC ABG pCO2 POC ABG pO2 ABG Oxyhemoglobin ABG Sodium ABG Potassium ABG Glucose Carboxyhemoglobin Sodium Potassium Chloride Carbon Dioxide BUN Creatinine Glucose POC Glucose 135 H Calcium Phosphorus Ferritin Total Bilirubin AST ALT Alkaline Phosphatase Lactate Dehydrogenase Total Creatine Kinase Troponin T C-Reactive Protein NT-Pro-B Natriuret Pep Serum Total Protein Total Protein Albumin Cholesterol LDL Cholesterol Direct HDL Cholesterol PTH Intact Arterial Blood Glucose Urine WBC (Auto) Urine Creatinine Valproic Acid Heparin-induced Plt Ab Lymph Enumerat CD4/CD8 Absolute CD3 Count Absolute CD4 Count % CD8 Cells Absolute CD8 Count Absolute CD19 Count Coronavirus (PCR) HIV-1 RNA PCR copies/ml HIV-1 RNA (PCR) log 09/20/20 09/20/20 09/20/20 04:00 05:37 11:20 WBC RBC Hgb Hct MCV MCH MCHC Plt Count Lymph % (Auto) [place] % (Auto) Lymph # (Auto) [place] # (Auto) Seg Neutrophils % Seg Neuts % (Manual) Lymphocytes % (Manual) Monocytes % (Manual) Nucleated RBC % Seg Neutrophils # Seg Neutrophils # Man Abs Lymphs (Manual) Lymphocytes # (Manual) PT INR APTT D-Dimer Heparin Anti-Xa Level ABG pH POC ABG pCO2 POC ABG pO2 ABG Oxyhemoglobin ABG Sodium ABG Potassium ABG Glucose Carboxyhemoglobin Sodium Potassium Chloride Carbon Dioxide 16 L BUN 119 H Creatinine 6.2 H Glucose 136 H POC Glucose 137 H 108 H Calcium Phosphorus Ferritin Total Bilirubin AST ALT Alkaline Phosphatase Lactate Dehydrogenase Total Creatine Kinase Troponin T C-Reactive Protein NT-Pro-B Natriuret Pep Serum Total Protein Total Protein Albumin Cholesterol LDL Cholesterol Direct HDL Cholesterol PTH Intact Arterial Blood Glucose Urine WBC (Auto) Urine Creatinine Valproic Acid Heparin-induced Plt Ab Lymph Enumerat CD4/CD8 Absolute CD3 Count Absolute CD4 Count % CD8 Cells Absolute CD8 Count Absolute CD19 Count Coronavirus (PCR) HIV-1 RNA PCR copies/ml HIV-1 RNA (PCR) log 09/20/20 09/20/20 09/20/20 17:10 17:10 17:10 WBC RBC Hgb Hct MCV MCH MCHC Plt Count Lymph % (Auto) [place] % (Auto) Lymph # (Auto) [place] # (Auto) Seg Neutrophils % Seg Neuts % (Manual) Lymphocytes % (Manual) Monocytes % (Manual) Nucleated RBC % Seg Neutrophils # Seg Neutrophils # Man Abs Lymphs (Manual) Lymphocytes # (Manual) PT INR APTT D-Dimer 4271.58 H Heparin Anti-Xa Level ABG pH POC ABG pCO2 POC ABG pO2 ABG Oxyhemoglobin ABG Sodium ABG Potassium ABG Glucose Carboxyhemoglobin Sodium Potassium Chloride Carbon Dioxide BUN Creatinine 6.0 H Glucose POC Glucose Calcium Phosphorus Ferritin 696.6 H Total Bilirubin AST ALT Alkaline Phosphatase Lactate Dehydrogenase Total Creatine Kinase Troponin T C-Reactive Protein NT-Pro-B Natriuret Pep Serum Total Protein Total Protein Albumin Cholesterol LDL Cholesterol Direct HDL Cholesterol PTH Intact Arterial Blood Glucose Urine WBC (Auto) Urine Creatinine Valproic Acid Heparin-induced Plt Ab Lymph Enumerat CD4/CD8 Absolute CD3 Count Absolute CD4 Count % CD8 Cells Absolute CD8 Count Absolute CD19 Count Coronavirus (PCR) HIV-1 RNA PCR copies/ml HIV-1 RNA (PCR) log 09/20/20 09/20/20 09/20/20 17:10 18:21 23:14 WBC RBC Hgb Hct MCV MCH MCHC Plt Count Lymph % (Auto) [place] % (Auto) Lymph # (Auto) [place] # (Auto) Seg Neutrophils % Seg Neuts % (Manual) Lymphocytes % (Manual) Monocytes % (Manual) Nucleated RBC % Seg Neutrophils # Seg Neutrophils # Man Abs Lymphs (Manual) Lymphocytes # (Manual) PT INR APTT D-Dimer Heparin Anti-Xa Level ABG pH POC ABG pCO2 POC ABG pO2 ABG Oxyhemoglobin ABG Sodium ABG Potassium ABG Glucose Carboxyhemoglobin Sodium Potassium Chloride Carbon Dioxide BUN Creatinine Glucose POC Glucose 129 H 170 H Calcium Phosphorus Ferritin Total Bilirubin AST ALT Alkaline Phosphatase Lactate Dehydrogenase 209 H Total Creatine Kinase Troponin T C-Reactive Protein 10.60 H NT-Pro-B Natriuret Pep Serum Total Protein Total Protein Albumin Cholesterol LDL Cholesterol Direct HDL Cholesterol PTH Intact Arterial Blood Glucose Urine WBC (Auto) Urine Creatinine Valproic Acid Heparin-induced Plt Ab Lymph Enumerat CD4/CD8 Absolute CD3 Count Absolute CD4 Count % CD8 Cells Absolute CD8 Count Absolute CD19 Count Coronavirus (PCR) HIV-1 RNA PCR copies/ml HIV-1 RNA (PCR) log 09/21/20 09/21/20 09/21/20 05:35 17:09 23:18 WBC RBC Hgb Hct MCV MCH MCHC Plt Count Lymph % (Auto) [place] % (Auto) Lymph # (Auto) [place] # (Auto) Seg Neutrophils % Seg Neuts % (Manual) Lymphocytes % (Manual) Monocytes % (Manual) Nucleated RBC % Seg Neutrophils # Seg Neutrophils # Man Abs Lymphs (Manual) Lymphocytes # (Manual) PT INR APTT D-Dimer Heparin Anti-Xa Level ABG pH POC ABG pCO2 POC ABG pO2 ABG Oxyhemoglobin ABG Sodium ABG Potassium ABG Glucose Carboxyhemoglobin Sodium Potassium Chloride Carbon Dioxide BUN Creatinine Glucose POC Glucose 170 H 140 H 139 H Calcium Phosphorus Ferritin Total Bilirubin AST ALT Alkaline Phosphatase Lactate Dehydrogenase Total Creatine Kinase Troponin T C-Reactive Protein NT-Pro-B Natriuret Pep Serum Total Protein Total Protein Albumin Cholesterol LDL Cholesterol Direct HDL Cholesterol PTH Intact Arterial Blood Glucose Urine WBC (Auto) Urine Creatinine Valproic Acid Heparin-induced Plt Ab Lymph Enumerat CD4/CD8 Absolute CD3 Count Absolute CD4 Count % CD8 Cells Absolute CD8 Count Absolute CD19 Count Coronavirus (PCR) HIV-1 RNA PCR copies/ml HIV-1 RNA (PCR) log 09/21/20 09/21/20 09/21/20 Unknown Unknown Unknown WBC RBC 3.56 L Hgb 11.3 L Hct 33.2 L MCV MCH MCHC Plt Count 125 L Lymph % (Auto) [place] % (Auto) Lymph # (Auto) [place] # (Auto) Seg Neutrophils % Seg Neuts % (Manual) 90.0 H Lymphocytes % (Manual) 8.0 L Monocytes % (Manual) Nucleated RBC % 1.0 H Seg Neutrophils # Seg Neutrophils # Man 9.4 H Abs Lymphs (Manual) Lymphocytes # (Manual) 0.8 L PT 16.8 H INR 1.36 H APTT D-Dimer Heparin Anti-Xa Level ABG pH POC ABG pCO2 POC ABG pO2 ABG Oxyhemoglobin ABG Sodium ABG Potassium ABG Glucose Carboxyhemoglobin Sodium Potassium Chloride Carbon Dioxide BUN 83 H Creatinine 4.3 H Glucose 163 H POC Glucose Calcium Phosphorus Ferritin Total Bilirubin 2.40 H AST ALT 57 H Alkaline Phosphatase < 5 L Lactate Dehydrogenase Total Creatine Kinase Troponin T C-Reactive Protein NT-Pro-B Natriuret Pep Serum Total Protein Total Protein Albumin 1.9 L Cholesterol LDL Cholesterol Direct HDL Cholesterol PTH Intact Arterial Blood Glucose Urine WBC (Auto) Urine Creatinine Valproic Acid Heparin-induced Plt Ab Lymph Enumerat CD4/CD8 Absolute CD3 Count Absolute CD4 Count % CD8 Cells Absolute CD8 Count Absolute CD19 Count Coronavirus (PCR) HIV-1 RNA PCR copies/ml HIV-1 RNA (PCR) log 09/22/20 09/22/20 09/22/20 05:38 05:38 05:38 WBC 15.8 H RBC 3.36 L Hgb 10.8 L Hct 31.0 L MCV MCH MCHC 35 H Plt Count 68 L Lymph % (Auto) 3.1 L [place] % (Auto) 10.7 H Lymph # (Auto) 0.5 L [place] # (Auto) 1.7 H Seg Neutrophils % 85.9 H Seg Neuts % (Manual) Lymphocytes % (Manual) Monocytes % (Manual) Nucleated RBC % Seg Neutrophils # 13.6 H Seg Neutrophils # Man Abs Lymphs (Manual) Lymphocytes # (Manual) PT INR APTT D-Dimer 3281.49 H Heparin Anti-Xa Level ABG pH POC ABG pCO2 POC ABG pO2 ABG Oxyhemoglobin ABG Sodium ABG Potassium ABG Glucose Carboxyhemoglobin Sodium Potassium Chloride Carbon Dioxide BUN 61 H Creatinine 3.1 H Glucose 129 H POC Glucose Calcium Phosphorus Ferritin Total Bilirubin AST ALT Alkaline Phosphatase Lactate Dehydrogenase 277 H Total Creatine Kinase Troponin T C-Reactive Protein 6.60 H NT-Pro-B Natriuret Pep Serum Total Protein Total Protein Albumin Cholesterol LDL Cholesterol Direct HDL Cholesterol PTH Intact Arterial Blood Glucose Urine WBC (Auto) Urine Creatinine Valproic Acid Heparin-induced Plt Ab Lymph Enumerat CD4/CD8 Absolute CD3 Count Absolute CD4 Count % CD8 Cells Absolute CD8 Count Absolute CD19 Count Coronavirus (PCR) HIV-1 RNA PCR copies/ml HIV-1 RNA (PCR) log 09/22/20 09/22/20 09/22/20 05:38 05:44 11:26 WBC RBC Hgb Hct MCV MCH MCHC Plt Count Lymph % (Auto) [place] % (Auto) Lymph # (Auto) [place] # (Auto) Seg Neutrophils % Seg Neuts % (Manual) Lymphocytes % (Manual) Monocytes % (Manual) Nucleated RBC % Seg Neutrophils # Seg Neutrophils # Man Abs Lymphs (Manual) Lymphocytes # (Manual) PT INR APTT D-Dimer Heparin Anti-Xa Level ABG pH POC ABG pCO2 POC ABG pO2 ABG Oxyhemoglobin ABG Sodium ABG Potassium ABG Glucose Carboxyhemoglobin Sodium Potassium Chloride Carbon Dioxide BUN Creatinine Glucose POC Glucose 112 H 131 H Calcium Phosphorus Ferritin 927.8 H Total Bilirubin AST ALT Alkaline Phosphatase Lactate Dehydrogenase Total Creatine Kinase Troponin T C-Reactive Protein NT-Pro-B Natriuret Pep Serum Total Protein Total Protein Albumin Cholesterol LDL Cholesterol Direct HDL Cholesterol PTH Intact Arterial Blood Glucose Urine WBC (Auto) Urine Creatinine Valproic Acid Heparin-induced Plt Ab Lymph Enumerat CD4/CD8 Absolute CD3 Count Absolute CD4 Count % CD8 Cells Absolute CD8 Count Absolute CD19 Count Coronavirus (PCR) HIV-1 RNA PCR copies/ml HIV-1 RNA (PCR) log 09/22/20 09/22/20 09/22/20 15:12 15:12 15:12 WBC RBC Hgb Hct MCV MCH MCHC Plt Count Lymph % (Auto) [place] % (Auto) Lymph # (Auto) [place] # (Auto) Seg Neutrophils % Seg Neuts % (Manual) Lymphocytes % (Manual) Monocytes % (Manual) Nucleated RBC % Seg Neutrophils # Seg Neutrophils # Man Abs Lymphs (Manual) Lymphocytes # (Manual) PT 17.3 H INR 1.42 H APTT D-Dimer Heparin Anti-Xa Level ABG pH POC ABG pCO2 POC ABG pO2 ABG Oxyhemoglobin ABG Sodium ABG Potassium ABG Glucose Carboxyhemoglobin Sodium Potassium Chloride Carbon Dioxide BUN Creatinine 3.0 H Glucose POC Glucose Calcium Phosphorus Ferritin Total Bilirubin AST ALT Alkaline Phosphatase Lactate Dehydrogenase Total Creatine Kinase Troponin T C-Reactive Protein NT-Pro-B Natriuret Pep Serum Total Protein Total Protein Albumin Cholesterol LDL Cholesterol Direct HDL Cholesterol PTH Intact Arterial Blood Glucose Urine WBC (Auto) Urine Creatinine Valproic Acid Heparin-induced Plt Ab Weak positive H Lymph Enumerat CD4/CD8 Absolute CD3 Count Absolute CD4 Count % CD8 Cells Absolute CD8 Count Absolute CD19 Count Coronavirus (PCR) HIV-1 RNA PCR copies/ml HIV-1 RNA (PCR) log 09/22/20 09/22/20 09/23/20 16:53 23:55 04:36 WBC 14.2 H RBC 3.05 L Hgb 9.8 L Hct 28.4 L MCV MCH MCHC Plt Count 39 L Lymph % (Auto) [place] % (Auto) Lymph # (Auto) [place] # (Auto) Seg Neutrophils % Seg Neuts % (Manual) 91.0 H Lymphocytes % (Manual) 2.0 L Monocytes % (Manual) Nucleated RBC % Seg Neutrophils # Seg Neutrophils # Man 12.9 H Abs Lymphs (Manual) Lymphocytes # (Manual) 0.3 L PT INR APTT D-Dimer Heparin Anti-Xa Level ABG pH POC ABG pCO2 POC ABG pO2 ABG Oxyhemoglobin ABG Sodium ABG Potassium ABG Glucose Carboxyhemoglobin Sodium Potassium Chloride Carbon Dioxide BUN Creatinine Glucose POC Glucose 138 H 171 H Calcium Phosphorus Ferritin Total Bilirubin AST ALT Alkaline Phosphatase Lactate Dehydrogenase Total Creatine Kinase Troponin T C-Reactive Protein NT-Pro-B Natriuret Pep Serum Total Protein Total Protein Albumin Cholesterol LDL Cholesterol Direct HDL Cholesterol PTH Intact Arterial Blood Glucose Urine WBC (Auto) Urine Creatinine Valproic Acid Heparin-induced Plt Ab Lymph Enumerat CD4/CD8 Absolute CD3 Count Absolute CD4 Count % CD8 Cells Absolute CD8 Count Absolute CD19 Count Coronavirus (PCR) HIV-1 RNA PCR copies/ml HIV-1 RNA (PCR) log 09/23/20 09/23/20 09/23/20 04:36 05:41 11:38 WBC RBC Hgb Hct MCV MCH MCHC Plt Count Lymph % (Auto) [place] % (Auto) Lymph # (Auto) [place] # (Auto) Seg Neutrophils % Seg Neuts % (Manual) Lymphocytes % (Manual) Monocytes % (Manual) Nucleated RBC % Seg Neutrophils # Seg Neutrophils # Man Abs Lymphs (Manual) Lymphocytes # (Manual) PT INR APTT D-Dimer Heparin Anti-Xa Level ABG pH POC ABG pCO2 POC ABG pO2 ABG Oxyhemoglobin ABG Sodium ABG Potassium ABG Glucose Carboxyhemoglobin Sodium Potassium Chloride Carbon Dioxide BUN 76 H Creatinine 3.1 H Glucose 157 H POC Glucose 136 H 141 H Calcium Phosphorus Ferritin Total Bilirubin AST ALT Alkaline Phosphatase Lactate Dehydrogenase Total Creatine Kinase Troponin T C-Reactive Protein NT-Pro-B Natriuret Pep Serum Total Protein Total Protein Albumin Cholesterol LDL Cholesterol Direct HDL Cholesterol PTH Intact Arterial Blood Glucose Urine WBC (Auto) Urine Creatinine Valproic Acid Heparin-induced Plt Ab Lymph Enumerat CD4/CD8 Absolute CD3 Count Absolute CD4 Count % CD8 Cells Absolute CD8 Count Absolute CD19 Count Coronavirus (PCR) HIV-1 RNA PCR copies/ml HIV-1 RNA (PCR) log 09/23/20 09/23/20 09/24/20 17:09 23:51 05:00 WBC 24.2 H RBC 3.23 L Hgb 10.0 L Hct 29.7 L MCV MCH MCHC Plt Count 74 L Lymph % (Auto) [place] % (Auto) Lymph # (Auto) [place] # (Auto) Seg Neutrophils % Seg Neuts % (Manual) Lymphocytes % (Manual) Monocytes % (Manual) Nucleated RBC % Seg Neutrophils # Seg Neutrophils # Man Abs Lymphs (Manual) Lymphocytes # (Manual) PT INR APTT D-Dimer Heparin Anti-Xa Level ABG pH POC ABG pCO2 POC ABG pO2 ABG Oxyhemoglobin ABG Sodium ABG Potassium ABG Glucose Carboxyhemoglobin Sodium Potassium Chloride Carbon Dioxide BUN Creatinine Glucose POC Glucose 128 H 128 H Calcium Phosphorus Ferritin Total Bilirubin AST ALT Alkaline Phosphatase Lactate Dehydrogenase Total Creatine Kinase Troponin T C-Reactive Protein NT-Pro-B Natriuret Pep Serum Total Protein Total Protein Albumin Cholesterol LDL Cholesterol Direct HDL Cholesterol PTH Intact Arterial Blood Glucose Urine WBC (Auto) Urine Creatinine Valproic Acid Heparin-induced Plt Ab Lymph Enumerat CD4/CD8 Absolute CD3 Count Absolute CD4 Count % CD8 Cells Absolute CD8 Count Absolute CD19 Count Coronavirus (PCR) HIV-1 RNA PCR copies/ml HIV-1 RNA (PCR) log 09/24/20 09/24/20 09/24/20 05:00 05:00 05:00 WBC RBC Hgb Hct MCV MCH MCHC Plt Count Lymph % (Auto) [place] % (Auto) Lymph # (Auto) [place] # (Auto) Seg Neutrophils % Seg Neuts % (Manual) Lymphocytes % (Manual) Monocytes % (Manual) Nucleated RBC % Seg Neutrophils # Seg Neutrophils # Man Abs Lymphs (Manual) Lymphocytes # (Manual) PT INR APTT D-Dimer 1772.86 H Heparin Anti-Xa Level ABG pH POC ABG pCO2 POC ABG pO2 ABG Oxyhemoglobin ABG Sodium ABG Potassium ABG Glucose Carboxyhemoglobin Sodium Potassium Chloride 107.1 H Carbon Dioxide BUN 90 H Creatinine 3.1 H Glucose 118 H POC Glucose Calcium Phosphorus Ferritin 1190.0 H Total Bilirubin AST ALT Alkaline Phosphatase Lactate Dehydrogenase 276 H Total Creatine Kinase Troponin T C-Reactive Protein 4.20 H NT-Pro-B Natriuret Pep Serum Total Protein Total Protein Albumin Cholesterol LDL Cholesterol Direct HDL Cholesterol PTH Intact Arterial Blood Glucose Urine WBC (Auto) Urine Creatinine Valproic Acid Heparin-induced Plt Ab Lymph Enumerat CD4/CD8 Absolute CD3 Count Absolute CD4 Count % CD8 Cells Absolute CD8 Count Absolute CD19 Count Coronavirus (PCR) HIV-1 RNA PCR copies/ml HIV-1 RNA (PCR) log 09/24/20 09/24/20 09/24/20 05:12 11:25 12:09 WBC RBC Hgb Hct MCV MCH MCHC Plt Count Lymph % (Auto) [place] % (Auto) Lymph # (Auto) [place] # (Auto) Seg Neutrophils % Seg Neuts % (Manual) Lymphocytes % (Manual) Monocytes % (Manual) Nucleated RBC % Seg Neutrophils # Seg Neutrophils # Man Abs Lymphs (Manual) Lymphocytes # (Manual) PT INR APTT D-Dimer Heparin Anti-Xa Level ABG pH POC ABG pCO2 POC ABG pO2 ABG Oxyhemoglobin ABG Sodium ABG Potassium ABG Glucose Carboxyhemoglobin Sodium Potassium Chloride Carbon Dioxide BUN Creatinine 3.1 H Glucose POC Glucose 114 H 110 H Calcium Phosphorus Ferritin Total Bilirubin AST ALT Alkaline Phosphatase Lactate Dehydrogenase Total Creatine Kinase Troponin T C-Reactive Protein NT-Pro-B Natriuret Pep Serum Total Protein Total Protein Albumin Cholesterol LDL Cholesterol Direct HDL Cholesterol PTH Intact Arterial Blood Glucose Urine WBC (Auto) Urine Creatinine Valproic Acid Heparin-induced Plt Ab Lymph Enumerat CD4/CD8 Absolute CD3 Count Absolute CD4 Count % CD8 Cells Absolute CD8 Count Absolute CD19 Count Coronavirus (PCR) HIV-1 RNA PCR copies/ml HIV-1 RNA (PCR) log 09/24/20 09/24/20 09/24/20 12:13 12:13 17:41 WBC 20.8 H RBC 3.04 L Hgb 9.5 L Hct 28.0 L MCV MCH MCHC Plt Count 78 L Lymph % (Auto) [place] % (Auto) Lymph # (Auto) [place] # (Auto) Seg Neutrophils % Seg Neuts % (Manual) Lymphocytes % (Manual) Monocytes % (Manual) Nucleated RBC % Seg Neutrophils # Seg Neutrophils # Man Abs Lymphs (Manual) Lymphocytes # (Manual) PT 15.7 H INR 1.27 H APTT D-Dimer Heparin Anti-Xa Level ABG pH POC ABG pCO2 POC ABG pO2 ABG Oxyhemoglobin ABG Sodium ABG Potassium ABG Glucose Carboxyhemoglobin Sodium Potassium Chloride Carbon Dioxide BUN Creatinine Glucose POC Glucose 133 H Calcium Phosphorus Ferritin Total Bilirubin AST ALT Alkaline Phosphatase Lactate Dehydrogenase Total Creatine Kinase Troponin T C-Reactive Protein NT-Pro-B Natriuret Pep Serum Total Protein Total Protein Albumin Cholesterol LDL Cholesterol Direct HDL Cholesterol PTH Intact Arterial Blood Glucose Urine WBC (Auto) Urine Creatinine Valproic Acid Heparin-induced Plt Ab Lymph Enumerat CD4/CD8 Absolute CD3 Count Absolute CD4 Count % CD8 Cells Absolute CD8 Count Absolute CD19 Count Coronavirus (PCR) HIV-1 RNA PCR copies/ml HIV-1 RNA (PCR) log 09/24/20 09/25/20 09/25/20 23:34 06:40 06:40 WBC RBC Hgb Hct MCV MCH MCHC Plt Count Lymph % (Auto) [place] % (Auto) Lymph # (Auto) [place] # (Auto) Seg Neutrophils % Seg Neuts % (Manual) Lymphocytes % (Manual) Monocytes % (Manual) Nucleated RBC % Seg Neutrophils # Seg Neutrophils # Man Abs Lymphs (Manual) Lymphocytes # (Manual) PT INR APTT D-Dimer Heparin Anti-Xa Level ABG pH POC ABG pCO2 POC ABG pO2 ABG Oxyhemoglobin ABG Sodium ABG Potassium ABG Glucose Carboxyhemoglobin Sodium Potassium Chloride 109.0 H Carbon Dioxide BUN 98 H Creatinine 3.0 H 3.0 H Glucose 111 H POC Glucose 113 H Calcium Phosphorus Ferritin Total Bilirubin AST ALT Alkaline Phosphatase Lactate Dehydrogenase Total Creatine Kinase Troponin T C-Reactive Protein NT-Pro-B Natriuret Pep Serum Total Protein Total Protein Albumin Cholesterol LDL Cholesterol Direct HDL Cholesterol PTH Intact Arterial Blood Glucose Urine WBC (Auto) Urine Creatinine Valproic Acid Heparin-induced Plt Ab Lymph Enumerat CD4/CD8 Absolute CD3 Count Absolute CD4 Count % CD8 Cells Absolute CD8 Count Absolute CD19 Count Coronavirus (PCR) HIV-1 RNA PCR copies/ml HIV-1 RNA (PCR) log 09/25/20 09/25/20 09/25/20 10:45 12:45 18:03 WBC 20.7 H RBC 3.33 L Hgb 10.2 L Hct 31.3 L MCV MCH MCHC Plt Count 139 L Lymph % (Auto) [place] % (Auto) Lymph # (Auto) [place] # (Auto) Seg Neutrophils % Seg Neuts % (Manual) Lymphocytes % (Manual) Monocytes % (Manual) Nucleated RBC % Seg Neutrophils # Seg Neutrophils # Man Abs Lymphs (Manual) Lymphocytes # (Manual) PT INR APTT D-Dimer Heparin Anti-Xa Level ABG pH POC ABG pCO2 POC ABG pO2 ABG Oxyhemoglobin ABG Sodium ABG Potassium ABG Glucose Carboxyhemoglobin Sodium Potassium Chloride Carbon Dioxide BUN Creatinine Glucose POC Glucose 108 H 114 H Calcium Phosphorus Ferritin Total Bilirubin AST ALT Alkaline Phosphatase Lactate Dehydrogenase Total Creatine Kinase Troponin T C-Reactive Protein NT-Pro-B Natriuret Pep Serum Total Protein Total Protein Albumin Cholesterol LDL Cholesterol Direct HDL Cholesterol PTH Intact Arterial Blood Glucose Urine WBC (Auto) Urine Creatinine Valproic Acid Heparin-induced Plt Ab Lymph Enumerat CD4/CD8 Absolute CD3 Count Absolute CD4 Count % CD8 Cells Absolute CD8 Count Absolute CD19 Count Coronavirus (PCR) HIV-1 RNA PCR copies/ml HIV-1 RNA (PCR) log 09/25/20 09/26/20 09/26/20 23:29 05:00 07:06 WBC 17.0 H RBC 3.10 L Hgb 9.6 L Hct 28.8 L MCV MCH MCHC Plt Count Lymph % (Auto) [place] % (Auto) Lymph # (Auto) [place] # (Auto) Seg Neutrophils % Seg Neuts % (Manual) Lymphocytes % (Manual) Monocytes % (Manual) Nucleated RBC % Seg Neutrophils # Seg Neutrophils # Man Abs Lymphs (Manual) Lymphocytes # (Manual) PT INR APTT D-Dimer Heparin Anti-Xa Level ABG pH POC ABG pCO2 POC ABG pO2 ABG Oxyhemoglobin ABG Sodium ABG Potassium ABG Glucose Carboxyhemoglobin Sodium Potassium Chloride Carbon Dioxide BUN Creatinine Glucose POC Glucose 111 H 115 H Calcium Phosphorus Ferritin Total Bilirubin AST ALT Alkaline Phosphatase Lactate Dehydrogenase Total Creatine Kinase Troponin T C-Reactive Protein NT-Pro-B Natriuret Pep Serum Total Protein Total Protein Albumin Cholesterol LDL Cholesterol Direct HDL Cholesterol PTH Intact Arterial Blood Glucose Urine WBC (Auto) Urine Creatinine Valproic Acid Heparin-induced Plt Ab Lymph Enumerat CD4/CD8 Absolute CD3 Count Absolute CD4 Count % CD8 Cells Absolute CD8 Count Absolute CD19 Count Coronavirus (PCR) HIV-1 RNA PCR copies/ml HIV-1 RNA (PCR) log 09/26/20 09/26/20 09/27/20 07:06 17:26 04:00 WBC RBC Hgb Hct MCV MCH MCHC Plt Count Lymph % (Auto) [place] % (Auto) Lymph # (Auto) [place] # (Auto) Seg Neutrophils % Seg Neuts % (Manual) Lymphocytes % (Manual) Monocytes % (Manual) Nucleated RBC % Seg Neutrophils # Seg Neutrophils # Man Abs Lymphs (Manual) Lymphocytes # (Manual) PT INR APTT D-Dimer Heparin Anti-Xa Level ABG pH POC ABG pCO2 POC ABG pO2 ABG Oxyhemoglobin ABG Sodium ABG Potassium ABG Glucose Carboxyhemoglobin Sodium Potassium Chloride Carbon Dioxide BUN 69 H 67 H Creatinine 2.2 H 2.3 H Glucose 107 H 121 H POC Glucose 124 H Calcium Phosphorus Ferritin Total Bilirubin AST ALT Alkaline Phosphatase Lactate Dehydrogenase Total Creatine Kinase Troponin T C-Reactive Protein NT-Pro-B Natriuret Pep Serum Total Protein Total Protein Albumin Cholesterol LDL Cholesterol Direct HDL Cholesterol PTH Intact Arterial Blood Glucose Urine WBC (Auto) Urine Creatinine Valproic Acid Heparin-induced Plt Ab Lymph Enumerat CD4/CD8 Absolute CD3 Count Absolute CD4 Count % CD8 Cells Absolute CD8 Count Absolute CD19 Count Coronavirus (PCR) HIV-1 RNA PCR copies/ml HIV-1 RNA (PCR) log 09/27/20 09/27/20 09/27/20 04:00 05:00 17:11 WBC 14.6 H RBC 2.72 L Hgb 8.6 L Hct 25.8 L MCV 95 H MCH MCHC Plt Count Lymph % (Auto) 4.3 L [place] % (Auto) Lymph # (Auto) 0.6 L [place] # (Auto) 0.9 H Seg Neutrophils % 89.6 H Seg Neuts % (Manual) Lymphocytes % (Manual) Monocytes % (Manual) Nucleated RBC % Seg Neutrophils # 13.1 H Seg Neutrophils # Man Abs Lymphs (Manual) Lymphocytes # (Manual) PT INR APTT D-Dimer Heparin Anti-Xa Level ABG pH POC ABG pCO2 POC ABG pO2 ABG Oxyhemoglobin ABG Sodium ABG Potassium ABG Glucose Carboxyhemoglobin Sodium Potassium Chloride Carbon Dioxide BUN Creatinine 2.4 H Glucose POC Glucose 132 H Calcium Phosphorus Ferritin Total Bilirubin AST ALT Alkaline Phosphatase Lactate Dehydrogenase Total Creatine Kinase Troponin T C-Reactive Protein NT-Pro-B Natriuret Pep Serum Total Protein Total Protein Albumin Cholesterol LDL Cholesterol Direct HDL Cholesterol PTH Intact Arterial Blood Glucose Urine WBC (Auto) Urine Creatinine Valproic Acid Heparin-induced Plt Ab Lymph Enumerat CD4/CD8 Absolute CD3 Count Absolute CD4 Count % CD8 Cells Absolute CD8 Count Absolute CD19 Count Coronavirus (PCR) HIV-1 RNA PCR copies/ml HIV-1 RNA (PCR) log 09/28/20 09/28/20 09/29/20 04:46 04:46 04:45 WBC 14.6 H RBC 2.66 L Hgb 8.4 L Hct 25.3 L MCV 95 H MCH MCHC Plt Count Lymph % (Auto) [place] % (Auto) Lymph # (Auto) [place] # (Auto) Seg Neutrophils % Seg Neuts % (Manual) Lymphocytes % (Manual) Monocytes % (Manual) Nucleated RBC % Seg Neutrophils # Seg Neutrophils # Man Abs Lymphs (Manual) Lymphocytes # (Manual) PT INR APTT D-Dimer Heparin Anti-Xa Level ABG pH POC ABG pCO2 POC ABG pO2 ABG Oxyhemoglobin ABG Sodium ABG Potassium ABG Glucose Carboxyhemoglobin Sodium Potassium Chloride Carbon Dioxide BUN 71 H 63 H Creatinine 2.3 H 2.2 H Glucose 105 H POC Glucose Calcium Phosphorus Ferritin Total Bilirubin AST ALT Alkaline Phosphatase Lactate Dehydrogenase Total Creatine Kinase Troponin T C-Reactive Protein NT-Pro-B Natriuret Pep Serum Total Protein Total Protein Albumin Cholesterol LDL Cholesterol Direct HDL Cholesterol PTH Intact Arterial Blood Glucose Urine WBC (Auto) Urine Creatinine Valproic Acid Heparin-induced Plt Ab Lymph Enumerat CD4/CD8 Absolute CD3 Count Absolute CD4 Count % CD8 Cells Absolute CD8 Count Absolute CD19 Count Coronavirus (PCR) HIV-1 RNA PCR copies/ml HIV-1 RNA (PCR) log 09/29/20 09/29/20 09/29/20 04:45 05:43 17:50 WBC RBC 2.92 L Hgb 9.6 L Hct 28.1 L MCV 96 H MCH 33 H MCHC Plt Count Lymph % (Auto) [place] % (Auto) Lymph # (Auto) [place] # (Auto) Seg Neutrophils % Seg Neuts % (Manual) Lymphocytes % (Manual) Monocytes % (Manual) Nucleated RBC % Seg Neutrophils # Seg Neutrophils # Man Abs Lymphs (Manual) Lymphocytes # (Manual) PT INR APTT D-Dimer Heparin Anti-Xa Level ABG pH POC ABG pCO2 POC ABG pO2 ABG Oxyhemoglobin ABG Sodium ABG Potassium ABG Glucose Carboxyhemoglobin Sodium Potassium Chloride Carbon Dioxide BUN Creatinine Glucose POC Glucose 69 L 132 H Calcium Phosphorus Ferritin Total Bilirubin AST ALT Alkaline Phosphatase Lactate Dehydrogenase Total Creatine Kinase Troponin T C-Reactive Protein NT-Pro-B Natriuret Pep Serum Total Protein Total Protein Albumin Cholesterol LDL Cholesterol Direct HDL Cholesterol PTH Intact Arterial Blood Glucose Urine WBC (Auto) Urine Creatinine Valproic Acid Heparin-induced Plt Ab Lymph Enumerat CD4/CD8 Absolute CD3 Count Absolute CD4 Count % CD8 Cells Absolute CD8 Count Absolute CD19 Count Coronavirus (PCR) HIV-1 RNA PCR copies/ml HIV-1 RNA (PCR) log 0509/30/20 09/30/20 04:47 04:47 04:47 WBC RBC 2.47 L Hgb 8.1 L Hct 23.9 L MCV 97 H MCH 33 H MCHC Plt Count Lymph % (Auto) [place] % (Auto) Lymph # (Auto) [place] # (Auto) Seg Neutrophils % Seg Neuts % (Manual) Lymphocytes % (Manual) Monocytes % (Manual) Nucleated RBC % Seg Neutrophils # Seg Neutrophils # Man Abs Lymphs (Manual) Lymphocytes # (Manual) PT INR APTT D-Dimer Heparin Anti-Xa Level ABG pH POC ABG pCO2 POC ABG pO2 ABG Oxyhemoglobin ABG Sodium ABG Potassium ABG Glucose Carboxyhemoglobin Sodium Potassium Chloride Carbon Dioxide 31 H BUN 63 H Creatinine 2.1 H Glucose POC Glucose Calcium Phosphorus Ferritin Total Bilirubin AST ALT Alkaline Phosphatase Lactate Dehydrogenase Total Creatine Kinase Troponin T C-Reactive Protein NT-Pro-B Natriuret Pep Serum Total Protein 5.5 L Total Protein 5.9 L Albumin 2.2 L 2.1 L Cholesterol LDL Cholesterol Direct HDL Cholesterol PTH Intact Arterial Blood Glucose Urine WBC (Auto) Urine Creatinine Valproic Acid Heparin-induced Plt Ab Lymph Enumerat CD4/CD8 Absolute CD3 Count Absolute CD4 Count % CD8 Cells Absolute CD8 Count Absolute CD19 Count Coronavirus (PCR) HIV-1 RNA PCR copies/ml HIV-1 RNA (PCR) log 10/01/20 10/01/20 10/02/20 07:16 08:30 05:10 WBC RBC Hgb Hct MCV MCH MCHC Plt Count Lymph % (Auto) [place] % (Auto) Lymph # (Auto) [place] # (Auto) Seg Neutrophils % Seg Neuts % (Manual) Lymphocytes % (Manual) Monocytes % (Manual) Nucleated RBC % Seg Neutrophils # Seg Neutrophils # Man Abs Lymphs (Manual) Lymphocytes # (Manual) PT INR APTT D-Dimer Heparin Anti-Xa Level ABG pH POC ABG pCO2 POC ABG pO2 ABG Oxyhemoglobin ABG Sodium ABG Potassium ABG Glucose Carboxyhemoglobin Sodium Potassium Chloride Carbon Dioxide BUN 58 H 48 H Creatinine 2.2 H 2.0 H Glucose POC Glucose Calcium Phosphorus Ferritin Total Bilirubin AST ALT Alkaline Phosphatase Lactate Dehydrogenase Total Creatine Kinase Troponin T C-Reactive Protein NT-Pro-B Natriuret Pep Serum Total Protein Total Protein Albumin Cholesterol LDL Cholesterol Direct HDL Cholesterol PTH Intact Arterial Blood Glucose Urine WBC (Auto) Urine Creatinine Valproic Acid Heparin-induced Plt Ab Lymph Enumerat CD4/CD8 Absolute CD3 Count Absolute CD4 Count % CD8 Cells Absolute CD8 Count Absolute CD19 Count Coronavirus (PCR) Positive A HIV-1 RNA PCR copies/ml HIV-1 RNA (PCR) log 10/03/20 10/03/20 08:12 08:12 WBC RBC Hgb Hct MCV MCH MCHC Plt Count Lymph % (Auto) [place] % (Auto) Lymph # (Auto) [place] # (Auto) Seg Neutrophils % Seg Neuts % (Manual) Lymphocytes % (Manual) Monocytes % (Manual) Nucleated RBC % Seg Neutrophils # Seg Neutrophils # Man Abs Lymphs (Manual) Lymphocytes # (Manual) PT INR APTT D-Dimer Heparin Anti-Xa Level ABG pH POC ABG pCO2 POC ABG pO2 ABG Oxyhemoglobin ABG Sodium ABG Potassium ABG Glucose Carboxyhemoglobin Sodium Potassium 5.4 H D Chloride Carbon Dioxide BUN 48 H Creatinine 2.2 H Glucose POC Glucose Calcium 8.0 L Phosphorus Ferritin Total Bilirubin AST ALT Alkaline Phosphatase Lactate Dehydrogenase Total Creatine Kinase Troponin T C-Reactive Protein NT-Pro-B Natriuret Pep Serum Total Protein Total Protein Albumin Cholesterol LDL Cholesterol Direct HDL Cholesterol PTH Intact Arterial Blood Glucose Urine WBC (Auto) Urine Creatinine Valproic Acid 17.8 L Heparin-induced Plt Ab Lymph Enumerat CD4/CD8 Absolute CD3 Count Absolute CD4 Count % CD8 Cells Absolute CD8 Count Absolute CD19 Count Coronavirus (PCR) HIV-1 RNA PCR copies/ml HIV-1 RNA (PCR) log Allied health notes reviewed: nursing
[2020-10-04] MEDS ORDERED: METOPROLOL TARTRATE 25 MG TAB PO SCH (18:00)
[2020-10-04 18:53] LABS: Mean Corpuscular HGB Conc 33 % (32-34); Mean Corpuscular Volume 98 fl (84-94); Platelet Count 241 K/mm3 (140-440); Red Blood Count 2.44 M/mm3 (3.65-5.03); Red Cell Distribution Width 15.6 % (13.2-15.2)
[2020-10-04 19:10] LABS: Calcium 8.5 mg/dL (8.4-10.2)
--- NOTE | 2020-10-04 21:10 | Progress Note ---
Assessment and Plan Mgmt of COVID per Primary teams. Continue PO Amio 200mg BID for now. Will decrease Lopressor to 6.25mg BID. Continue as tolerated. PRN correction of electrolytes. F/u BMP & CBC in AM. Pt seen in conjunction with Dr. Avila, who agrees with the assessment and plan of care. - Patient Problems (1) COVID-19 Current Visit: Yes Status: Acute (2) AMS (altered mental status) Current Visit: Yes Status: Acute Qualifiers: Altered mental status type: somnolence Qualified Code(s): R40.0 - Somnolence (3) Acute respiratory failure Current Visit: Yes Status: Acute (4) Sepsis Current Visit: Yes Status: Acute Qualifiers: Severe sepsis shock status: with septic shock (5) UTI (urinary tract infection) Current Visit: Yes Status: Acute (6) LOLI (acute kidney injury) Current Visit: Yes Status: Acute (7) Acute HFrEF (heart failure with reduced ejection fraction) Current Visit: Yes Status: Resolved (8) Cardiomyopathy Current Visit: Yes Status: Chronic (9) Atrial fibrillation with RVR Current Visit: Yes Status: Acute (10) Anemia Current Visit: Yes Status: Acute (11) H/O: HTN (hypertension) Current Visit: Yes Status: Chronic (12) HIV (human immunodeficiency virus infection) Current Visit: Yes Status: Chronic Subjective Date of service: 10/03/20 Principal diagnosis: Sepsis, AF with RVR Interval history: Remains agitated & confused. Tele reviewed - AF 90-110s. Objective Last Vital Signs Temp 99.3 F 10/03/20 19:08 Pulse 68 10/03/20 11:18 Resp 18 10/03/20 19:08 BP 106/76 10/03/20 19:08 Pulse Ox 100 10/03/20 19:08 - Physical Examination General: Other (agitated) HEENT: Positive: Normocephaly, Mucus Membranes Moist Neck: Positive: neck supple. Negative: JVD/HJR Cardiac: Positive: irregularly irregular Lungs: Positive: Decreased Breath Sounds, Wheezes Neuro: Positive: Grossly Intact Abdomen: Positive: Soft Skin: Negative: Rash Musculoskeletal: No Fluid Collection Extremities: Present: upper extr. pulses, lower extr. pulses. Absent: edema - Labs and Meds Comprehensive Metabolic Panel 10/03/20 Range/Units 08:12 Sodium 140 (137-145) mmol/L Potassium 5.4 H D (3.6-5.0) mmol/L Chloride 106.9 (98-107) mmol/L Carbon Dioxide 27 (22-30) mmol/L BUN 48 H (9-20) mg/dL Creatinine 2.2 H (0.8-1.3) mg/dL Glucose 84 (75-100) mg/dL Calcium 8.0 L (8.4-10.2) mg/dL - Imaging and Cardiology EKG: report reviewed, image reviewed Echo: report reviewed (09/18/2020 - EF 40-45%, mild concentric LVH, RV sys fxn mildly reduced, no significant valvular abnormality) - Telemetry EKG Rhythm: Atrial Fibrillation - EKG Supraventricular dysrhythmia: atrial fibrillation Myocardial infarction: septal [place] (old age or ind, anterior [place] (old age or i - Allied health notes Allied health notes reviewed: nursing
[2020-10-05] MEDS: METOPROLOL TARTRATE 25 MG TAB PO SCH ×4 (00:04→22:23)
--- NOTE | 2020-10-05 07:37 | Progress Note ---
Assessment and Plan Assessment and plan: This is 70-year-old male with HIV, HTN, and atrial fibrillation (currently on therapeutic anticoagulation with Xarelto) admitted with atrial fibrillation with RVR, SIRs, metabolic acidosis, acute kidney injury, acute hypoxic respiratory failure, hypotension, and CHF Septic Shock Acute hypoxemic respiratory failure 2/2 to volume overload/chf exacerbation Acute systolic heart failure exacerbation Atrial fibrillation with RVR Acute on chronic kidney injury Hypotension Anemia Thrombocytopenia E coli bacteremia E. coli urinary tract infection NSTEMI Elevated Ddimer Leukocytosis HIV, asymptomatic HTN Coagulopathy Transaminitis -Cardiology, CCM, Nephrology, ID, general surgery, heme/onc consulted, appreciate recommendations -09/20 COVID-19 PCR positive -Droplet/isolation precautions -Dexamethasone 6 mg p.o. (09/20-09/30) -Vitamin D, vitamin C, zinc -Vasopressor support with levophed and vasopressin, midodrine -09/17 CXR shows borderline heart size, mild central pulmonary venous congestion -09/17 renal ultrasound shows no acute findings -09/18 echocardiogram shows left ventricle systolic function mildly decreased, LVEF of 40 to 45% with mild concentric left ventricle hypertrophy, trace MR, mild TR, trace CO -09/19 abdominal ultrasound shows large gallstone within the gallbladder, no pericholecystic fluid, gallbladder wall upper limits of normal measuring 3 mm -09/21 HIDA scan shows no evidence of acute cholecystitis -09/21 BLE Dopplar US no evidence for DVT -09/23 CT head shows no acute intracranial hemorrhage or parenchymal abnormality, mild diffuse brain atrophy with commensurate ventricular enlargement which is likely age appropriate, small frontal scalp lipoma measuring 9 mm in thickness, 4 cm in length, and 4 cm in width., Sinuses and mastoid air cells are clear. -09/17 proBNP 29023 -S/p IV Lasix twice daily -09/20 nephrology initiated the patient on dialysis -Pulmonary hygiene -Bipap qhs -09/25 CT abd/pelvis without contrast pending -PO amiodarone -HIV meds per ID -IV abx therapy -HIT pending -Trend CBC, BMP, LFTs DVT/GI prophylaxis: PPI, SCDs to bilateral lower extremities while in bed, no chemical anticoagulation at this time d/t thrombocytopenia Disposition: IMCU History Interval history: This is 70-year-old male with HIV, HTN, and atrial fibrillation (currently on therapeutic anticoagulation with Xarelto) presents the emergency department on 09/17 with complaints of shortness of breath over the past 3 days and on arrival of EMS patient was found to have a pulse oximetry of 85% on room air. He was placed on supplemental oxygenation. Of note patient was admitted on 09/15 with similar complaints and found to have A. fib with RVR, hyponatremia, hypomagnesemia and acute kidney injury and left AMA. He was admitted to the hospital service with atrial fibrillation with RVR, SIRs, metabolic acidosis, acute kidney injury, acute hypoxic respiratory failure, hypotension, and CHF . Cardiology, CCM and nephrology were consulted. 09/18/2020. Await echocardiogram to assess for diastolic versus systolic etiology. Patient with elevated BNP greater than 18,000. Patient apparently was admitted approximately 3 days ago but left AMA. Cardiology consulted for heart failure, A. fib with RVR and elevated troponin. Patient denies chest pain. Also, patient with elevated creatinine of 4.7 with creatinine 2.8 on recent admission. We do not have a previous creatinine as a baseline to compare. Nephrology consultation pending. Follow-up renal ultrasound. Patient with coagulopathy and INR 3.04. Unsure if patient was on anticoagulation for A. fib. 09/19/2020. Patient likely with vasomotor acute kidney injury in the setting of s hock. Follow-up urine studies and renal ultrasound. Creatinine continues to worsen. Nephrology following. Etiology of respiratory failure secondary to heart failure with Covid testing pending. Elevated troponin suggestive of NSTEMI. Continue diuresis with Lasix. Continue IV amiodarone for rate control of A. fib with RVR. Continue heparin. Follow-up echocardiogram. Cardiology following. 09/20/2020: This time my examination patient was on BiPAP therapy and now is on nasal cannula. Patient remains on amiodarone drip with heart rate in the 130s to 140s and vasopressor support with Levophed. Today nephrology will initiate hemodialysis given worsening renal function studies and has stopped diuresis with Lasix. ID resumed antiretroviral therapy and ordered a HIDA scan. Today the patient received a temporary Vas-Cath and is COVID-19 PCR resulted as positive. Patient will be started on vitamin C, vitamin D and zinc and dexamethasone given need for supplemental oxygenation. 09/21: Ecoli UTI and bacteremia and ID has changed him to meropenem, Patient received HD yesterday and patient remains on amiodarone drip. He is off the floor to obtain a HIDA scan. 09/22: HIDA scan did not show acute cholecystitis. Ecoli bacteremia is sensitive to ceftriaxone and ID changed his abx. Mentation is better. BP is liable. Remains on levophed and vasopressin. We started midodrine. HIT panel pending and hem/onc consulted. 09/23: Patient noted to have unequal pupils with left >right, STAT CT head ordered. Nephro will withhold hemodialysis and assess needs as kidney function has gotten better. Patient symptomatically follows commands and is on nasal cannula. Cardiology stopped his Eliquis due to persistent thrombocytopenia. 09/24: Patient remains confused, pupils still unequal. Started on eliquis 2.5 today and he will be transferred to IMCU. 09/25: Patient remains confused, had Bipap overnight, CT abd/pelvis ordered per ID recommendations given persistent leukocytosis. Cr remains unchanged but BUN in rising. Nephrology is on the case. 09/26/2020; patient was confused and on 3 L of oxygen. ID is following the patient and continue with antiretroviral medications, no OI prophylaxis needed. Patient is on IV Rocephin lasted 09/28 per ID recommendation for E. coli bacteremia. ID ordered CT abdomen and pelvis. We will follow the results. Patient is being followed by cardiology and they recommend to resume Eliquis with 2.5 mg p.o. twice daily, thrombocytopenia is improving. Patient is on amiodarone and metoprolol. Patient is being followed by nephrology and is on dialysis. Blood pressure was normal this morning. Patient was tachycardic in A. fib with RVR. CT head was normal. Prognosis is guarded. Continue IMCU care. 09/27: Continue IMCU care, still with unresolved Afib, will continue to adjust medications for better control. 09/28: Start Seroquel DUE TO THE AGITATION, Discussed with daughter, will work on getting Afib better controlled. Per daughter the confusion is new, although some improvement noted today. Patient will benefit from SNF 09/29: Seroquel started today as it was not started yesterday, await PT/OT, Continue to monitor mental status, will transfer to Tele. Anticipate discharge when bed available. 09/30: Discussed extensively with the daughter about her clinical condition, Seroquel discontinued as patient did not tolerate, still with low BP responded to Fluids. Hold BB and continue to monitor and redirect. Discussed with Nursing staff. 10/01: Patient seen and examined resting comfortably still with intermittent delirium. Blood pressure has improved although beta-ruddy was held midodrine was given. Will change to Coreg 3.125 with holding parameters on discharge. Per cardiology amiodarone changed to 200 mg daily. Neurology evaluation is still pending. I have initiated placement to a SNF facility and once approved patient can be discharged. Daughter has been updated on medical condition. For now on anticoagulation left in place although outpatient this may be discontinued due to patient's mental status if there is no improvement. 10/02: Neurology evaluated the patient for increased agitation and aggressive behavior and confusion. Exam suggestive of delirium stopped. Due to not tolerating Seroquel, now Geodon trial Haldol however recommended also valproic acid. No overnight issues reported. Continue awaiting SNF placement for continued rehab. Blood pressure has remained stable no further fever recorded. Monitor for any recurrence of the pain in the leg. 10/03: I have asked for a sitter a few days ago unfortunately not as available as a result restraints have been used and reassurances. Will decrease Seroquel to 12.5 twice daily as patient did not tolerate the 25 mg. Continue supportive care blood pressure meds held due to hypotension. Delirium still present delirium preventive methods including keeping the lights on through the night windows shades up discussed with nursing staff. Also discussed with neurologist. 10/04: 70-year-old male admitted to the hospital with hypoxic respiratory failure history of Covid. During hospitalization developed A. fib with RVR status metabolic acidosis and acute kidney injury. Has also been exhibiting some delirium was managed in the ICU and IMCU and subsequently is awaiting placement. He was seen by neurologist delirium of diagnosis secondary to metabolic issues. Seroquel was started initially at 25 mg p.o. twice daily but patient developed hypotension now better improved BP, Continue seroquel 12.5mg po BID seems to have good improvement in mental status. awaiting labs due to noted hyperkalemia yesterday. Repeat covud test for placement. 10/05/2020; patient is pending for placement. Repeat Covid test is negative. Blood pressure is within normal limit. Patient is confused. History Interval history: Patient was seen and evaluated this morning Patient said he is feeling better Patient was on restraints, patient was on room air Hospitalist Physical - Physical exam Narrative exam: Patient was noting cardiopulmonary distress. The patient appeared well nourished and normally developed. Vital signs as documented. Head exam is unremarkable. No scleral icterus . Neck is without jugular venous distension, thyromegaly, or carotid bruits. Lungs are clear to auscultation. Cardiac exam reveals regular rate and Rhythm. Abdominal exam reveals normal bowel sounds, nontender, no organomegaly. Extremities are nonedematous and both femoral and pedal pulses are normal. 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 - Constitutional Vitals: Temp Pulse Resp BP Pulse Ox 97.9 F 103 H 17 104/74 97 10/04/20 21:34 10/05/20 00:04 10/05/20 00:36 10/05/20 03:50 10/04/20 22:00 General appearance: Present: no acute distress HEART Score - HEART Score Troponin: Troponin T < 0.010 ng/mL (0.00-0.029) 09/22/20 05:38 Results - Labs CBC & Chem 7: 10/05/20 07:14 10/05/20 07:14 Labs: Laboratory Last Values WBC 7.9 K/mm3 (4.5-11.0) 10/04/20 18:19 RBC 2.44 M/mm3 (3.65-5.03) L 10/04/20 18:19 Hgb 8.0 gm/dl (11.8-15.2) L 10/04/20 18:19 Hct 24.0 % (35.5-45.6) L 10/04/20 18:19 MCV 98 fl (84-94) H 10/04/20 18:19 MCH 33 pg (28-32) H 10/04/20 18:19 MCHC 33 % (32-34) 10/04/20 18:19 RDW 15.6 % (13.2-15.2) H 10/04/20 18:19 Plt Count 241 K/mm3 (140-440) 10/04/20 18:19 Lymph % (Auto) 4.3 % (13.4-35.0) L 09/27/20 04:00 [place] % (Auto) 6.0 % (0.0-7.3) 09/27/20 04:00 Eos % (Auto) 0.1 % (0.0-4.3) 09/27/20 04:00 Baso % (Auto) 0.0 % (0.0-1.8) 09/27/20 04:00 Lymph # (Auto) 0.6 K/mm3 (1.2-5.4) L 09/27/20 04:00 [place] # (Auto) 0.9 K/mm3 (0.0-0.8) H 09/27/20 04:00 Eos # (Auto) 0.0 K/mm3 (0.0-0.4) 09/27/20 04:00 Baso # (Auto) 0.0 K/mm3 (0.0-0.1) 09/27/20 04:00 Add Manual Diff Complete 09/23/20 04:36 Total Counted 100 09/23/20 04:36 Seg Neutrophils % 89.6 % (40.0-70.0) H 09/27/20 04:00 Seg Neuts % (Manual) 91.0 % (40.0-70.0) H 09/23/20 04:36 Band Neutrophils % 2.0 % 09/23/20 04:36 Lymphocytes % (Manual) 2.0 % (13.4-35.0) L 09/23/20 04:36 Monocytes % (Manual) 5.0 % (0.0-7.3) 09/23/20 04:36 Nucleated RBC % Not Reportable 09/23/20 04:36 Seg Neutrophils # 13.1 K/mm3 (1.8-7.7) H 09/27/20 04:00 Seg Neutrophils # Man 12.9 K/mm3 (1.8-7.7) H 09/23/20 04:36 Band Neutrophils # 0.3 K/mm3 09/23/20 04:36 Abs Lymphs (Manual) 223 cells/uL (850-3900) L 09/19/20 13:35 Lymphocytes # (Manual) 0.3 K/mm3 (1.2-5.4) L 09/23/20 04:36 Abs React Lymphs (Man) 0.0 K/mm3 09/23/20 04:36 Monocytes # (Manual) 0.7 K/mm3 (0.0-0.8) 09/23/20 04:36 Eosinophils # (Manual) 0.0 K/mm3 (0.0-0.4) 09/23/20 04:36 Basophils # (Manual) 0.0 K/mm3 (0.0-0.1) 09/23/20 04:36 Metamyelocytes # 0.0 K/mm3 09/23/20 04:36 Myelocytes # 0.0 K/mm3 09/23/20 04:36 Promyelocytes # 0.0 K/mm3 09/23/20 04:36 Blast Cells # 0.0 K/mm3 09/23/20 04:36 WBC Morphology Not Reportable 09/23/20 04:36 Hypersegmented Neuts Not Reportable 09/23/20 04:36 Hyposegmented Neuts Not Reportable 09/23/20 04:36 Hypogranular Neuts Not Reportable 09/23/20 04:36 Smudge Cells Not Reportable 09/23/20 04:36 Toxic Granulation Not Reportable 09/23/20 04:36 Toxic Vacuolation Not Reportable 09/23/20 04:36 Dohle Bodies Not Reportable 09/23/20 04:36 Pelger-Huet Anomaly Not Reportable 09/23/20 04:36 Vinh Rods Not Reportable 09/23/20 04:36 Platelet Estimate Consistent w auto 09/23/20 04:36 Clumped Platelets Not Reportable 09/23/20 04:36 Plt Clumps, EDTA Not Reportable 09/23/20 04:36 Large Platelets Not Reportable 09/23/20 04:36 Giant Platelets Not Reportable 09/23/20 04:36 Platelet Satelliting Not Reportable 09/23/20 04:36 Plt Morphology Comment Not Reportable 09/23/20 04:36 RBC Morphology Not Reportable 09/23/20 04:36 Dimorphic RBCs Not Reportable 09/23/20 04:36 Polychromasia Not Reportable 09/23/20 04:36 Hypochromasia Not Reportable 09/23/20 04:36 Poikilocytosis Not Reportable 09/23/20 04:36 Anisocytosis 1+ 09/23/20 04:36 Microcytosis Not Reportable 09/23/20 04:36 Macrocytosis Not Reportable 09/23/20 04:36 Spherocytes Not Reportable 09/23/20 04:36 Pappenheimer Bodies Not Reportable 09/23/20 04:36 Sickle Cells Not Reportable 09/23/20 04:36 Target Cells Few 09/23/20 04:36 Tear Drop Cells Not Reportable 09/23/20 04:36 Ovalocytes Not Reportable 09/23/20 04:36 Helmet Cells Not Reportable 09/23/20 04:36 [place] Bodies Not Reportable 09/23/20 04:36 [place] Rings Not Reportable 09/23/20 04:36 Vita Cells Not Reportable 09/23/20 04:36 Bite Cells Not Reportable 09/23/20 04:36 Crenated Cell Not Reportable 09/23/20 04:36 Elliptocytes Not Reportable 09/23/20 04:36 Acanthocytes (Spur) Not Reportable 09/23/20 04:36 Rouleaux Not Reportable 09/23/20 04:36 Hemoglobin C Crystals Not Reportable 09/23/20 04:36 Schistocytes Not Reportable 09/23/20 04:36 Malaria parasites Not Reportable 09/23/20 04:36 Zachary Bodies Not Reportable 09/23/20 04:36 Hem Pathologist Commnt No 09/23/20 04:36 PT 15.7 Sec. (12.2-14.9) H 09/24/20 12:13 INR 1.27 (0.87-1.13) H 09/24/20 12:13 APTT 25.7 Sec. (24.2-36.6) 09/24/20 12:13 D-Dimer 1772.86 ng/mlDDU (0-234) H 09/24/20 05:00 Heparin Anti-Xa Level 0.10 U.I./ml (0.3-0.7) L 09/20/20 04:00 Heparin Anti-Xa, Unfract Negative (Negative) 09/22/20 15:12 ABG pH 7.508 (7.320-7.450) H 09/17/20 10:28 POC ABG pCO2 22.8 mmHg (32.0-48.0) L 09/17/20 10:28 POC ABG pO2 66.8 mmHg (83-108) L 09/17/20 10:28 POC ABG HCO3 17.7 09/17/20 10:28 ABG O2 Saturation 93.4 (0-100) 09/17/20 10:28 POC ABG Base Excess -3.5 09/17/20 10:28 ABG Hemoglobin 12.7 (12.0-17.5) 09/17/20 10:28 ABG Oxyhemoglobin 92.7 (94-98) L 09/17/20 10:28 ABG Methemoglobin 0.3 (0.0-1.5) 09/17/20 10:28 ABG Sodium 127.4 mmol/L (136.0-145.0) L 09/17/20 10:28 ABG Potassium 4.7 mmol/L (3.40-4.50) H 09/17/20 10:28 ABG Chloride 101.0 mmol/L (98-107) 09/17/20 10:28 ABG Glucose 121 mg/dL (65-95) H 09/17/20 10:28 Carboxyhemoglobin 0.4 (0.5-1.5) L 09/17/20 10:28 FiO2 % 21 09/17/20 10:28 Sodium 139 mmol/L (137-145) 10/04/20 18:19 Potassium 3.8 mmol/L (3.6-5.0) D 10/04/20 18:19 Chloride 104.5 mmol/L (98-107) 10/04/20 18:19 Carbon Dioxide 27 mmol/L (22-30) 10/04/20 18:19 Anion Gap 11 mmol/L 10/04/20 18:19 BUN 39 mg/dL (9-20) H 10/04/20 18:19 Creatinine 2.7 mg/dL (0.8-1.3) H 10/04/20 18:19 Estimated GFR 28 ml/min 10/04/20 18:19 BUN/Creatinine Ratio 14 % 10/04/20 18:19 Glucose 86 mg/dL (75-100) 10/04/20 18:19 POC Glucose 72 mg/dL (70-105) 09/30/20 11:45 Lactic Acid 1.00 mmol/L (0.7-2.0) 09/20/20 17:10 Calcium 8.5 mg/dL (8.4-10.2) 10/04/20 18:19 Phosphorus 2.90 mg/dL (2.5-4.5) 09/26/20 07:06 Magnesium 1.70 mg/dL (1.7-2.3) 09/26/20 07:06 Ferritin 1190.0 ng/mL (30.0-300.0) H 09/24/20 05:00 Total Bilirubin 0.80 mg/dL (0.1-1.2) 09/30/20 04:47 AST 14 units/L (5-40) 09/30/20 04:47 ALT 21 units/L (7-56) 09/30/20 04:47 Alkaline Phosphatase 81 units/L (35-129) 09/30/20 04:47 Lactate Dehydrogenase 276 units/L (91-180) H 09/24/20 05:00 Total Creatine Kinase 20 units/L (55-170) L 09/19/20 03:30 Troponin T < 0.010 ng/mL (0.00-0.029) 09/22/20 05:38 C-Reactive Protein 4.20 mg/dL (0.00-1.30) H 09/24/20 05:00 NT-Pro-B Natriuret Pep 55155 pg/mL (0-900) H 09/17/20 10:47 Serum Total Protein 5.5 g/dL (6.1-8.1) L 09/30/20 04:47 Total Protein 5.9 g/dL (6.3-8.2) L 09/30/20 04:47 Albumin 2.1 g/dL (3.8-4.8) L 09/30/20 04:47 Albumin 2.2 g/dL (3.9-5) L 09/30/20 04:47 Albumin/Globulin Ratio 0.6 % 09/30/20 04:47 Qfjys-9-Myxwnitod 0.3 g/dL (0.2-0.3) 09/30/20 04:47 Llfvj-9-Gkhdtxnxy 0.7 g/dL (0.5-0.9) 09/30/20 04:47 Beta Globulins 0.3 g/dL (0.2-0.5) 09/30/20 04:47 Gamma Globulins 1.7 g/dL (0.8-1.7) 09/30/20 04:47 Abnorm Protein Band 1 see below 09/30/20 04:47 PEP Interpretation see below 09/30/20 04:47 Triglycerides 137 mg/dL (2-149) 09/17/20 13:54 Cholesterol 48 mg/dL (50-199) L 09/17/20 13:54 LDL Cholesterol Direct 4 mg/dL (50-130) L 09/17/20 13:54 HDL Cholesterol 9 mg/dL (40-59) L 09/17/20 13:54 Cholesterol/HDL Ratio 5.33 % 09/17/20 13:54 Free PSA See scanned result 09/17/20 17:35 % Free PSA Calc See scanned result 09/17/20 17:35 Total PSA See scanned result 09/17/20 17:35 Serotonin Release Assay See scanned result 09/22/20 15:12 Procalcitonin 2.10 ng/mL (<0.15) 09/25/20 06:40 PTH Intact 161.4 pg/mL (15-65) H 09/19/20 03:30 Arterial Blood Glucose 121 mg/dL (65-95) H 09/17/20 10:28 Arterial Blood Ionized Calcium 5.0 mg/dL (4.6-5.3) 09/17/20 10:28 Urine Color Yellow (Yellow) 09/18/20 12:00 Urine Turbidity Cloudy (Clear) 09/18/20 12:00 Urine pH 5.0 (5.0-7.0) 09/18/20 12:00 Ur Specific [place] 1.009 (1.003-1.030) 09/18/20 12:00 Urine Protein 30 mg/dl mg/dL (Negative) 09/18/20 12:00 Urine Glucose (UA) Neg mg/dL (Negative) 09/18/20 12:00 Urine Ketones Neg mg/dL (Negative) 09/18/20 12:00 Urine Blood Sm (Negative) 09/18/20 12:00 Urine Nitrite Neg (Negative) 09/18/20 12:00 Urine Bilirubin Neg (Negative) 09/18/20 12:00 Urine Urobilinogen < 2.0 mg/dL (<2.0) 09/18/20 12:00 Ur Leukocyte Esterase Mod (Negative) 09/18/20 12:00 Urine WBC (Auto) 71.0 /HPF (0.0-6.0) H 09/18/20 12:00 Urine RBC (Auto) 2.0 /HPF (0.0-6.0) 09/18/20 12:00 U Epithel Cells (Auto) 1.0 /HPF (0-13.0) 09/18/20 12:00 Urine Bacteria (Auto) 4+ /HPF (Negative) 09/18/20 12:00 Urine WBC Clumps 2+ /HPF 09/18/20 12:00 Hyaline Casts 3 /LPF 09/18/20 12:00 Granular Casts 3 /LPF 09/18/20 12:00 Urine Mucus Few /HPF 09/18/20 12:00 Urine Eosinophils None seen (None Seen) 09/19/20 03:15 Urine Creatinine 61.0 mg/dL (0.1-20.0) H 09/18/20 12:00 Urine Sodium 62 mmol/L 09/18/20 12:00 Random Vancomycin 12.7 ug/mL (0-40.0) 09/19/20 03:30 Valproic Acid 17.8 ug/mL (50-100) L 10/03/20 08:12 Heparin-induced Plt Ab Weak positive (Negative) H 09/22/20 15:12 UF Heparin High Dose 0 % Release 09/22/20 15:12 [place]ON UFH Low Dose 0.1 0 % Release 09/22/20 15:12 [place] UFH Low Dose 0.5 0 % Release 09/22/20 15:12 Lymph Enumerat CD4/CD8 0.70 (0.86-5.00) L 09/19/20 13:35 % CD3 Cells 79 % (57-85) 09/19/20 13:35 Absolute CD3 Count 175 cells/uL (840-3060) L 09/19/20 13:35 % CD4 Cells 31 % (30-61) 09/19/20 13:35 Absolute CD4 Count 70 cells/uL (490-1740) L 09/19/20 13:35 % CD8 Cells 45 % (12-42) H 09/19/20 13:35 Absolute CD8 Count 101 cells/uL (180-1170) L 09/19/20 13:35 % CD19 Cells 12 % (6-29) 09/19/20 13:35 Absolute CD19 Count 26 cells/uL (110-660) L 09/19/20 13:35 Coronavirus (PCR) Negative (Negative) 10/04/20 Unknown Hepatitis A IgM Ab Non-reactive (NonReactive) 09/20/20 17:10 Hep Bs Antigen Non-reactive (Negative) 09/20/20 17:10 Hep B Core IgM Ab Non-reactive (NonReactive) 09/20/20 17:10 Hepatitis C Antibody Non-reactive (NonReactive) 09/20/20 17:10 HIV-1 RNA PCR copies/ml 67 Copies/mL H 09/19/20 13:35 HIV-1 RNA (PCR) log 1.83 Log cps/mL H 09/19/20 13:35 [place]/IV: Voiding Method Indwelling Catheter Active Medications - Current Medications Current Medications: Generic Name Dose Route Start Last Admin Trade Name Freq PRN Reason Stop Dose Admin Acetaminophen 650 mg 09/17/20 13:52 09/30/20 21:12 Acetaminophen 325 Mg Tab PO 650 mg Q4H PRN Administration Pain MILD(1-3)/Fever >100.5/ANGEL Albuterol 2.5 mg 09/17/20 13:52 09/17/20 20:47 Albuterol 2.5 Mg/3 Ml Nebu IH 2.5 mg Q4HRT PRN Administration Shortness Of Breath Amiodarone HCl 200 mg 10/01/20 22:00 10/04/20 23:31 Amiodarone 200 Mg Tab PO 200 mg BID EDIE Administration Lipase/Protease/Amylase 1 each 09/20/20 13:10 Lipase 10,500/Protease 25,000/Amylase 43,750 (Units) Dr Patrick FEEDTUBE PRN PRN For Clogged Feeding Tube Apixaban 2.5 mg 09/24/20 12:00 10/04/20 23:32 Apixaban 2.5 Mg Tab PO 2.5 mg Q12HR EDIE Administration Protocol Ascorbic Acid 500 mg 09/20/20 22:00 10/04/20 23:33 Ascorbic Acid 500 Mg Tab PO 500 mg BID EDIE Administration Cholecalciferol 1,000 unit 09/21/20 10:00 10/04/20 09:29 Cholecalciferol (Vit D3) 1000 Unit (25 Mcg) Tab PO 1,000 unit QDAY EDIE Administration Emtricitabine 200 mg 09/30/20 11:00 10/04/20 11:07 Emtricitabine 200 Mg Cap PO 200 mg Q48H EDIE Administration Famotidine 20 mg 09/24/20 10:00 10/04/20 09:29 Famotidine 20 Mg Tab PO 20 mg DAILY EDIE Administration Haloperidol Lactate 5 mg 10/01/20 11:34 10/04/20 13:32 Haloperidol Lactate 5 Mg/1 Ml Inj IM 5 mg Q6H PRN Administration Agitation Heparin Sodium (Porcine) 3,000 unit 09/20/20 10:06 Heparin 10,000 Units/10 Ml Vial IV VIRGIL PRN hemodialysis Sodium Chloride 100 mls @ 999 mls/hr 09/20/20 10:06 Nacl 0.9% IV VIRGIL PRN Hypotension Metoprolol Tartrate 5 mg 09/19/20 19:06 09/24/20 10:59 Metoprolol Tartrate 5 Mg/5 Ml Inj IV 5 mg Q8HR PRN Administration HR > 135 Minute Metoprolol Tartrate 12.5 mg 10/04/20 22:00 10/05/20 00:04 Metoprolol Tartrate 25 Mg Tab PO Not Given BID EDIE Midodrine 5 mg 09/22/20 12:00 10/04/20 23:33 Midodrine 5 Mg Tab PO 5 mg TID@0800,1200,1600 EDIE Administration Ondansetron HCl 4 mg 09/17/20 13:52 Ondansetron 4 Mg/2 Ml Inj IV Q8H PRN Nausea And Vomiting Quetiapine Fumarate 12.5 mg 10/03/20 22:00 10/04/20 23:34 Quetiapine 25 Mg Tab PO 12.5 mg QHS EDIE Administration Quetiapine Fumarate 12.5 mg 10/04/20 10:00 10/04/20 09:39 Quetiapine 25 Mg Tab PO 12.5 mg QAM EDIE Administration Simple Syrup 15 ml 09/20/20 13:10 Simple Syrup 15 Ml FEEDTUBE PRN PRN Hypoglycemia Simple Syrup 30 ml 09/20/20 13:10 Simple Syrup 15 Ml FEEDTUBE PRN PRN Hypoglycemia Sodium Bicarbonate 325 mg 09/20/20 13:10 Sodium Bicarbonate 325 Mg Tab FEEDTUBE PRN PRN For Clogged Feeding Tube Sodium Chloride 10 ml 09/17/20 22:00 10/05/20 00:06 Sodium Chloride 0.9% 10 Ml Flush Syringe IV 10 ml BID EDIE Administration Sodium Chloride 10 ml 09/17/20 13:52 09/24/20 09:15 Sodium Chloride 0.9% 10 Ml Flush Syringe IV 10 ml PRN PRN Administration LINE FLUSH Tenofovir Disoproxil Fumarate 300 mg 09/30/20 11:00 10/04/20 11:07 Tenofovir 300 Mg Tab PO 300 mg Q48H EDIE Administration Valproic Acid 250 mg 10/03/20 22:00 10/04/20 23:24 Valproic Acid 250 Mg Cap PO 250 mg BID EDIE Administration Zinc Sulfate 220 mg 09/21/20 10:00 10/04/20 09:28 Zinc Sulfate 220 Mg Cap PO 220 mg QDAY EDIE Administration Nutrition/Malnutrition Assess - Dietary Evaluation Nutrition/Malnutrition Findings: Nutrition Notes Start: 09/18/20 11:30 Freq: Status: Active Protocol: Document 10/04/20 15:11 CW (Rec: 10/04/20 15:27 CW [id number]) Nutrition Notes Initial or Follow up Reassessment Current Diagnosis Acute Kidney Injury,Sepsis, Hypertension,Heart Failure, Respiratory Failure Other Pertinent Diagnosis COVID-19 (+), AMS, UTI, afib with RVR, HIV (+) Current Diet Pureed Labs/Tests K 5.4 BUN 48 Cr 2.2 Pertinent Medications Reviewed Height 6 ft 1 in Weight 88.6 kg [place] Body Weight (kg) 83.63 BMI 25.7 Weight change and time frame weight change ntoed Weight Status Underweight Subjective/Other Information F/U for stable TF and weight; Pt diet as been upgraded to PO diet. Pt was eating 100% of meals yesterday but is now refusing meals. Will monitor for stable intakes. Per RN, pt had been previously retaining 850 ml of urine, likely the reason for weight change. 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 No Is Patient Ambulatory and/or Out of Bed No REE-(Reyno-St. Jeor-confined to bed) [phone] Calculation Used for Recommendations ReynoSt Nuñezjacobo Additional Notes Pro needs: 73 - 88g (1 - 1.2 g /kgUBW 73kg) Fluid needs 1-1.5L/day Nutrition Intervention Change Diet Order: Continue pureed diet add renal modifications Nutrition Support: d/c Goal #1 Meet at least 75% of estimated kcal and protein needs via PO Goal #2 Weight maintenance/weight gain Anticipated Discharge Needs: Renal Pureed Diet Follow-Up By: 10/06/20 Additional Comments F/U for stable intakes, stable weight, and need for ONS
[2020-10-05 08:09] LABS: Hematocrit 23.3 % (35.5-45.6); Hemoglobin 7.8 gm/dl (11.8-15.2); Mean Corpuscular HGB Conc 34 % (32-34); Mean Corpuscular Volume 99 fl (84-94); Platelet Count 232 K/mm3 (140-440); Red Blood Count 2.36 M/mm3 (3.65-5.03)
[2020-10-05 08:25] LABS: Calcium 8.9 mg/dL (8.4-10.2)
--- NOTE | 2020-10-05 09:09 | Progress Note ---
Assessment and Plan 1. Acute kidney injury: Vasomotor LOLI in the setting of shock. ATN likely. Renal US negative for hydro. Multiple bladder scan negative. Patient required hemodialysis due to significant decline in the renal function. Hemodialysis: 09/20, 09/21, 09/25. Monitor renal function. Creatinine leveled off. Renal prognosis is guarded. Avoid nephrotoxic agents. Meds dosage based on GFR. Monitor for [employer] NURSE [employer]AFF needs. 2. FEN: Hyperkalemia, improved. Metabolic acidosis, improved, monitor. Monitor volume status and lytes. 3. Acute hypoxic respiratory failure: Covid test positive. Supplemental O2. 4. Acute CHF: Echocardiogram: EF 40-45%. CHF orderset / pathway. Monitor. 5. Atrial fibrillation with RVR: On Amio and Metoprolol. Followed by Cards. 6. Elevated troponin: Followed by Cards. 7. Coagulopathy: Trend. 8. Shock / Hypotension: Multifactorial, monitor. Off pressors. 9. Elevated Transaminases: Improved. 10. Metabolic encephalopathy: Monitor. 11. HIV. 12. Anemia, POA: Monitor. Subjective: Patient was seen and examined at the bedside. Objective: General appearance: well-developed, appears stated age, not in distress, mittens HEENT: ATNC, L pupil dilated Neck: trachea midline Respiratory: bilateral diminished breath sounds Heart: S1S2, no murmur Abdomen: soft, normoactive bowel sounds, not tender Integumentary: no obvious rash Ext: no edema Neurologic: lethargic, non-verbal, not following any command Subjective Date of service: 10/05/20 Principal diagnosis: Sepsis, AF with RVR Objective - Vital Signs Vital signs: Vital Signs - 12hr 10/04/20 10/04/20 10/05/20 21:34 22:00 00:04 Temperature 97.9 F Pulse Rate 103 H Respiratory 16 17 Rate Respiratory Rate [ Generalized] Blood Pressure 98/68 96/72 O2 Sat by Pulse 97 Oximetry 10/05/20 10/05/20 00:36 03:50 Temperature Pulse Rate Respiratory Rate Respiratory 17 Rate [ Generalized] Blood Pressure 104/74 O2 Sat by Pulse Oximetry - Lab 10/05/20 07:14 10/05/20 07:14 Most recent lab results ABG pH 7.508 (7.320-7.450) H 09/17/20 10:28 ABG O2 Saturation 93.4 (0-100) 09/17/20 10:28 Calcium 8.9 mg/dL (8.4-10.2) 10/05/20 07:14 Phosphorus 2.90 mg/dL (2.5-4.5) 09/26/20 07:06 Magnesium 1.70 mg/dL (1.7-2.3) 09/26/20 07:06 Urine Creatinine 61.0 mg/dL (0.1-20.0) H 09/18/20 12:00 Urine Sodium 62 mmol/L 09/18/20 12:00 Medications & Allergies - Medications Allergies/Adverse Reactions: Allergies heparin Adverse Reaction (Verified 09/29/20 16:33) thrombocytopenia PF4 Home Medications: Home Medications Medication Instructions Recorded Confirmed Last Taken Type AtorvaSTATin [Lipitor] 20 mg PO QHS 09/18/20 09/18/20 Unknown History Dolutegravir [Tivicay] 50 mg PO DAILY 09/18/20 09/18/20 Unknown History Emtricitabine/Tenofov Alafenam 1 tab PO DAILY 09/18/20 09/18/20 Unknown History [Descovy 200-25 mg (Nf)] allopurinoL [Zyloprim] 300 mg PO QDAY 09/18/20 09/18/20 Unknown History Amiodarone [Cordarone 200 MG TAB] 200 mg PO DAILY #60 tablet 10/01/20 Unknown Rx Apixaban [Eliquis] 2.5 mg PO Q12HR #60 tablet 10/01/20 Unknown Rx Ascorbic Acid [Vitamin C] 500 mg PO BID #60 tablet 10/01/20 Unknown Rx Cholecalciferol Vit D3 [Vitamin D3 1,000 unit PO QDAY #30 tablet 10/01/20 Unknown Rx 1,000 UNIT TAB] Famotidine [Pepcid] 20 mg PO DAILY #30 tablet 10/01/20 Unknown Rx Midodrine [Proamatine] 5 mg PO TID@0800,1200,1600 #90 10/01/20 Unknown Rx tablet QUEtiapine [SEROquel] 25 mg PO BID #30 tablet 10/01/20 Unknown Rx Zinc Sulfate 220 mg PO QDAY #30 capsule 10/01/20 Unknown Rx carvediloL [Coreg] 3.125 mg PO BID #60 tablet 10/01/20 Unknown Rx haloperidoL [Haldol] 2 mg PO Q8H PRN #30 tablet 10/01/20 Unknown Rx Active Medications: Generic Name Dose Route Start Last Admin Trade Name Freq PRN Reason Stop Dose Admin Acetaminophen 650 mg 09/17/20 13:52 09/30/20 21:12 Acetaminophen 325 Mg Tab PO 650 mg Q4H PRN Administration Pain MILD(1-3)/Fever >100.5/ANGLE Albuterol 2.5 mg 09/17/20 13:52 09/17/20 20:47 Albuterol 2.5 Mg/3 Ml Nebu IH 2.5 mg Q4HRT PRN Administration Shortness Of Breath Amiodarone HCl 200 mg 10/01/20 22:00 10/04/20 23:31 Amiodarone 200 Mg Tab PO 200 mg BID EDIE Administration Lipase/Protease/Amylase 1 each 09/20/20 13:10 Lipase 10,500/Protease 25,000/Amylase 43,750 (Units) Dr Patrick FEEDTUBE PRN PRN For Clogged Feeding Tube Apixaban 2.5 mg 09/24/20 12:00 10/04/20 23:32 Apixaban 2.5 Mg Tab PO 2.5 mg Q12HR EDIE Administration Protocol Ascorbic Acid 500 mg 09/20/20 22:00 10/04/20 23:33 Ascorbic Acid 500 Mg Tab PO 500 mg BID EDIE Administration Cholecalciferol 1,000 unit 09/21/20 10:00 10/04/20 09:29 Cholecalciferol (Vit D3) 1000 Unit (25 Mcg) Tab PO 1,000 unit QDAY EDIE Administration Emtricitabine 200 mg 09/30/20 11:00 10/04/20 11:07 Emtricitabine 200 Mg Cap PO 200 mg Q48H EDIE Administration Famotidine 20 mg 09/24/20 10:00 10/04/20 09:29 Famotidine 20 Mg Tab PO 20 mg DAILY EDIE Administration Haloperidol Lactate 5 mg 10/01/20 11:34 10/04/20 13:32 Haloperidol Lactate 5 Mg/1 Ml Inj IM 5 mg Q6H PRN Administration Agitation Heparin Sodium (Porcine) 3,000 unit 09/20/20 10:06 Heparin 10,000 Units/10 Ml Vial IV VIRGIL PRN hemodialysis Sodium Chloride 100 mls @ 999 mls/hr 09/20/20 10:06 Nacl 0.9% IV VIRGIL PRN Hypotension Metoprolol Tartrate 5 mg 09/19/20 19:06 09/24/20 10:59 Metoprolol Tartrate 5 Mg/5 Ml Inj IV 5 mg Q8HR PRN Administration HR > 135 Minute Metoprolol Tartrate 12.5 mg 10/04/20 22:00 10/05/20 00:04 Metoprolol Tartrate 25 Mg Tab PO Not Given BID EDIE Midodrine 5 mg 09/22/20 12:00 10/04/20 23:33 Midodrine 5 Mg Tab PO 5 mg TID@0800,1200,1600 EDIE Administration Ondansetron HCl 4 mg 09/17/20 13:52 Ondansetron 4 Mg/2 Ml Inj IV Q8H PRN Nausea And Vomiting Quetiapine Fumarate 12.5 mg 10/03/20 22:00 10/04/20 23:34 Quetiapine 25 Mg Tab PO 12.5 mg QHS EDIE Administration Quetiapine Fumarate 12.5 mg 10/04/20 10:00 10/04/20 09:39 Quetiapine 25 Mg Tab PO 12.5 mg QAM EDIE Administration Simple Syrup 15 ml 09/20/20 13:10 Simple Syrup 15 Ml FEEDTUBE PRN PRN Hypoglycemia Simple Syrup 30 ml 09/20/20 13:10 Simple Syrup 15 Ml FEEDTUBE PRN PRN Hypoglycemia Sodium Bicarbonate 325 mg 09/20/20 13:10 Sodium Bicarbonate 325 Mg Tab FEEDTUBE PRN PRN For Clogged Feeding Tube Sodium Chloride 10 ml 09/17/20 22:00 10/05/20 00:06 Sodium Chloride 0.9% 10 Ml Flush Syringe IV 10 ml BID EDIE Administration Sodium Chloride 10 ml 09/17/20 13:52 09/24/20 09:15 Sodium Chloride 0.9% 10 Ml Flush Syringe IV 10 ml PRN PRN Administration LINE FLUSH Tenofovir Disoproxil Fumarate 300 mg 09/30/20 11:00 10/04/20 11:07 Tenofovir 300 Mg Tab PO 300 mg Q48H EDIE Administration Valproic Acid 250 mg 10/03/20 22:00 10/04/20 23:24 Valproic Acid 250 Mg Cap PO 250 mg BID EDIE Administration Zinc Sulfate 220 mg 09/21/20 10:00 10/04/20 09:28 Zinc Sulfate 220 Mg Cap PO 220 mg QDAY EDIE Administration
[2020-10-05] MEDS: CHOLECALCIFEROL (VIT D3) 1000 UNIT (25 mcg) TAB PO SCH (10:14)
[2020-10-05] MEDS: VALPROIC ACID 250 MG CAP PO SCH ×2 (10:14→22:35)
[2020-10-05] MEDS: FAMOTIDINE 20 MG TAB PO SCH (10:14)
[2020-10-05] MEDS: ZINC SULFATE 220 MG CAP PO SCH (10:14)
[2020-10-05] MEDS: APIXABAN 2.5 MG TAB PO SCH (10:14)
[2020-10-05] MEDS: ASCORBIC ACID 500 MG TAB PO SCH ×2 (10:14→22:29)
[2020-10-05] MEDS: MIDODRINE 5 MG TAB PO SCH ×3 (10:15→17:46)
[2020-10-05] MEDS: DOLUTEGRAVIR 50 MG TAB PO SCH (10:15)
[2020-10-05] MEDS ORDERED: APIXABAN 2.5 MG TAB PO SCH (10:16)
[2020-10-05] MEDS: AMIODARONE 200 MG TAB PO SCH ×2 (10:19→22:31)
[2020-10-05] MEDS: QUEtiapine 25 MG TAB PO SCH ×2 (10:24→22:28)
[2020-10-05] MEDS: DOCUSATE SODIUM 100 MG/10 ML ORAL LIQD PO SCH ×2 (10:24→22:30)
--- NOTE | 2020-10-05 11:49 | Progress Note ---
Assessment and Plan * A. fib with RVR * Telemetry reviewed: A. fib 120s. No events * Optimize rate control: Continue amiodarone 200 mg p.o. twice daily, increa se metoprolol to 12.5 mg 3 times daily as tolerated by blood pressure * Recommend anticoagulation with Eliquis 5 mg twice daily. Plan discussed with Dr. Allen. * NSTEMI * Troponins elevated, subacute and nonspecific on admission, repeat troponins are negative x2. * Echocardiogram reviewed (09/18/2020): LVEF is 40 to 45%. LVSF is mildly decreased. Mild concentric LVH. RVSF is mildly reduced. No valvular abnormalities. * LOLI with acute tubular necrosis * Patient on dialysis. Nephrology is following. * No GEMA/ARB in setting of LOLI. Avoid nephrotoxic agents. * DVT prophylaxis * Currently on Eliquis Patient currently stable cardiac status. Patient may discharge to long-term facility from cardiac standpoint. Will follow on as-needed basis. Patient should follow-up with Dr Mayo in our [place] office on 10/22/2020 at 10:45 AM. #[phone] This patient was seen in conjunction with Dr Mayo who agrees with this assessment and plan of care - Patient Problems (1) AMS (altered mental status) Current Visit: Yes Status: Acute Qualifiers: Altered mental status type: somnolence Qualified Code(s): R40.0 - Somnolence (2) Acute hypoxemic respiratory failure Current Visit: Yes Status: Acute (3) Acute kidney injury (LOLI) with acute tubular necrosis (ATN) Current Visit: Yes Status: Acute (4) Atrial fibrillation with RVR Current Visit: Yes Status: Acute (5) NSTEMI (non-ST elevated myocardial infarction) Current Visit: Yes Status: Acute (6) Metabolic acidosis Current Visit: No Status: Acute (7) Systemic inflammatory response syndrome Current Visit: No Status: Acute Subjective Date of service: 10/05/20 Principal diagnosis: Sepsis, AF with RVR Interval history: Patient resting comfortably in bed. No shortness of breath or chest pain overnight. Telemetry reviewed: Atrial fib 120s. No events Objective Last Vital Signs Temp 97.9 F 10/04/20 21:34 Pulse 103 H 10/05/20 00:04 Resp 17 10/05/20 00:36 BP 104/74 10/05/20 03:50 Pulse Ox 97 10/04/20 22:00 - Physical Examination General: Other (agitated) HEENT: Positive: Normocephaly, Mucus Membranes Moist Neck: Positive: neck supple. Negative: JVD/HJR Cardiac: Positive: Reg Rate and Rhythm Lungs: Positive: Normal Exam, Normal Breath Sounds Neuro: Positive: Grossly Intact Abdomen: Positive: Soft Skin: Negative: Rash Musculoskeletal: No Fluid Collection Extremities: Present: upper extr. pulses, lower extr. pulses. Absent: edema - Labs and Meds CBC 10/04/20 10/05/20 Range/Units 18:19 07:14 WBC 7.9 6.7 (4.5-11.0) K/mm3 RBC 2.44 L 2.36 L (3.65-5.03) M/mm3 Hgb 8.0 L 7.8 L (11.8-15.2) gm/dl Hct 24.0 L 23.3 L (35.5-45.6) % Plt Count 241 232 (140-440) K/mm3 Comprehensive Metabolic Panel 10/04/20 10/05/20 Range/Units 18:19 07:14 Sodium 139 141 (137-145) mmol/L Potassium 3.8 D 3.9 (3.6-5.0) mmol/L Chloride 104.5 106.2 (98-107) mmol/L Carbon Dioxide 27 27 (22-30) mmol/L BUN 39 H 36 H (9-20) mg/dL Creatinine 2.7 H 2.5 H (0.8-1.3) mg/dL Glucose 86 76 (75-100) mg/dL Calcium 8.5 8.9 (8.4-10.2) mg/dL - Imaging and Cardiology EKG: report reviewed, image reviewed Echo: report reviewed (09/18/2020 - EF 40-45%, mild concentric LVH, RV sys fxn mildly reduced, no significant valvular abnormality) Myocardial infarction: septal AK (old age or ind, anterior AK (old age or i - Allied health notes Allied health notes reviewed: nursing
--- NOTE | 2020-10-05 11:50 | Progress Note ---
Assessment and Plan * A. fib with RVR * Telemetry reviewed: A. fib 100s. No events * Optimize rate control: Continue amiodarone 200 mg p.o. twice daily, increa se metoprolol to 12.5 mg p.o. twice daily * Recommend anticoagulation with Eliquis 5 mg twice daily. Plan discussed with Dr. Allen. * NSTEMI * Troponins elevated, subacute and nonspecific on admission, repeat troponins are negative x2. * Echocardiogram reviewed (09/18/2020): LVEF is 40 to 45%. LVSF is mildly decreased. Mild concentric LVH. RVSF is mildly reduced. No valvular abnormalities. * LOLI with acute tubular necrosis * Patient on dialysis. Nephrology is following. * No GEMA/ARB in setting of LOLI. Avoid nephrotoxic agents. * DVT prophylaxis * Currently on Eliquis Patient currently stable cardiac status. He is currently awaiting placement with senior care facility. We will follow This patient was seen in conjunction with Dr Maoy who agrees with this assessment and plan of care - Patient Problems (1) AMS (altered mental status) Current Visit: Yes Status: Acute Qualifiers: Altered mental status type: somnolence Qualified Code(s): R40.0 - Somnolence (2) Acute hypoxemic respiratory failure Current Visit: Yes Status: Acute (3) Acute kidney injury (LOLI) with acute tubular necrosis (ATN) Current Visit: Yes Status: Acute (4) Atrial fibrillation with RVR Current Visit: Yes Status: Acute (5) NSTEMI (non-ST elevated myocardial infarction) Current Visit: Yes Status: Acute (6) Metabolic acidosis Current Visit: No Status: Acute (7) Systemic inflammatory response syndrome Current Visit: No Status: Acute Subjective Date of service: 10/04/20 Principal diagnosis: Sepsis, AF with RVR Interval history: Patient resting comfortably in bed. No shortness of breath or chest pain overnight. Telemetry reviewed: Atrial fib 100s. No events Objective Last Vital Signs Temp 98.0 F 10/04/20 04:04 Pulse 67 10/04/20 09:29 Resp 20 10/04/20 04:04 BP 123/91 10/04/20 09:29 Pulse Ox 99 10/04/20 04:04 - Physical Examination General: Other (agitated) HEENT: Positive: Normocephaly, Mucus Membranes Moist Neck: Positive: neck supple. Negative: JVD/HJR Cardiac: Positive: irregularly irregular, S1/S2 Lungs: Positive: Other (Exam deferred due to Covid status, patient expresses no shortness of breath) Neuro: Positive: Grossly Intact Abdomen: Positive: Soft Skin: Negative: Rash Musculoskeletal: No Fluid Collection Extremities: Present: upper extr. pulses, lower extr. pulses. Absent: edema - Labs and Meds Comprehensive Metabolic Panel 09/30/20 Range/Units 04:47 Albumin 2.1 L (3.8-4.8) g/dL - Imaging and Cardiology EKG: report reviewed, image reviewed Echo: report reviewed (09/18/2020 - EF 40-45%, mild concentric LVH, RV sys fxn mildly reduced, no significant valvular abnormality) - Telemetry EKG Rhythm: Atrial Fibrillation Myocardial infarction: septal CA (old age or ind, anterior CA (old age or i - Allied health notes Allied health notes reviewed: nursing
[2020-10-05] MEDS ORDERED: METOPROLOL TARTRATE 25 MG TAB PO SCH (22:00)
[2020-10-05] MEDS: APIXABAN 5 MG TAB PO SCH (22:29)
[2020-10-06 08:48] LABS: Calcium 8.8 mg/dL (8.4-10.2)
--- NOTE | 2020-10-06 08:51 | Progress Note ---
Assessment and Plan Assessment and plan: This is 70-year-old male with HIV, HTN, and atrial fibrillation (currently on therapeutic anticoagulation with Xarelto) admitted with atrial fibrillation with RVR, SIRs, metabolic acidosis, acute kidney injury, acute hypoxic respiratory failure, hypotension, and CHF Septic Shock Acute hypoxemic respiratory failure 2/2 to volume overload/chf exacerbation Acute systolic heart failure exacerbation Atrial fibrillation with RVR Acute on chronic kidney injury Hypotension Anemia Thrombocytopenia E coli bacteremia E. coli urinary tract infection NSTEMI Elevated Ddimer Leukocytosis HIV, asymptomatic HTN Coagulopathy Transaminitis -Cardiology, CCM, Nephrology, ID, general surgery, heme/onc consulted, appreciate recommendations -09/20 COVID-19 PCR positive -Droplet/isolation precautions -Dexamethasone 6 mg p.o. (09/20-09/30) -Vitamin D, vitamin C, zinc -Vasopressor support with levophed and vasopressin, midodrine -09/17 CXR shows borderline heart size, mild central pulmonary venous congestion -09/17 renal ultrasound shows no acute findings -09/18 echocardiogram shows left ventricle systolic function mildly decreased, LVEF of 40 to 45% with mild concentric left ventricle hypertrophy, trace MR, mild TR, trace AR -09/19 abdominal ultrasound shows large gallstone within the gallbladder, no pericholecystic fluid, gallbladder wall upper limits of normal measuring 3 mm -09/21 HIDA scan shows no evidence of acute cholecystitis -09/21 BLE Dopplar US no evidence for DVT -09/23 CT head shows no acute intracranial hemorrhage or parenchymal abnormality, mild diffuse brain atrophy with commensurate ventricular enlargement which is likely age appropriate, small frontal scalp lipoma measuring 9 mm in thickness, 4 cm in length, and 4 cm in width., Sinuses and mastoid air cells are clear. -09/17 proBNP [id number] -S/p IV Lasix twice daily -09/20 nephrology initiated the patient on dialysis -Pulmonary hygiene -Bipap qhs -09/25 CT abd/pelvis without contrast pending -PO amiodarone -HIV meds per ID -IV abx therapy -HIT pending -Trend CBC, BMP, LFTs DVT/GI prophylaxis: PPI, SCDs to bilateral lower extremities while in bed, no chemical anticoagulation at this time d/t thrombocytopenia Disposition: IMCU History Interval history: This is 70-year-old male with HIV, HTN, and atrial fibrillation (currently on therapeutic anticoagulation with Xarelto) presents the emergency department on 09/17 with complaints of shortness of breath over the past 3 days and on arrival of EMS patient was found to have a pulse oximetry of 85% on room air. He was placed on supplemental oxygenation. Of note patient was admitted on 09/15 with similar complaints and found to have A. fib with RVR, hyponatremia, hypomagnesemia and acute kidney injury and left AMA. He was admitted to the hospital service with atrial fibrillation with RVR, SIRs, metabolic acidosis, acute kidney injury, acute hypoxic respiratory failure, hypotension, and CHF . Cardiology, CCM and nephrology were consulted. 09/18/2020. Await echocardiogram to assess for diastolic versus systolic etiology. Patient with elevated BNP greater than 18,000. Patient apparently was admitted approximately 3 days ago but left AMA. Cardiology consulted for heart failure, A. fib with RVR and elevated troponin. Patient denies chest pain. Also, patient with elevated creatinine of 4.7 with creatinine 2.8 on recent admission. We do not have a previous creatinine as a baseline to compare. Nephrology consultation pending. Follow-up renal ultrasound. Patient with coagulopathy and INR 3.04. Unsure if patient was on anticoagulation for A. fib. 09/19/2020. Patient likely with vasomotor acute kidney injury in the setting of s hock. Follow-up urine studies and renal ultrasound. Creatinine continues to worsen. Nephrology following. Etiology of respiratory failure secondary to heart failure with Covid testing pending. Elevated troponin suggestive of NSTEMI. Continue diuresis with Lasix. Continue IV amiodarone for rate control of A. fib with RVR. Continue heparin. Follow-up echocardiogram. Cardiology following. 09/20/2020: This time my examination patient was on BiPAP therapy and now is on nasal cannula. Patient remains on amiodarone drip with heart rate in the 130s to 140s and vasopressor support with Levophed. Today nephrology will initiate hemodialysis given worsening renal function studies and has stopped diuresis with Lasix. ID resumed antiretroviral therapy and ordered a HIDA scan. Today the patient received a temporary Vas-Cath and is COVID-19 PCR resulted as positive. Patient will be started on vitamin C, vitamin D and zinc and dexamethasone given need for supplemental oxygenation. 09/21: Ecoli UTI and bacteremia and ID has changed him to meropenem, Patient received HD yesterday and patient remains on amiodarone drip. He is off the floor to obtain a HIDA scan. 09/22: HIDA scan did not show acute cholecystitis. Ecoli bacteremia is sensitive to ceftriaxone and ID changed his abx. Mentation is better. BP is liable. Remains on levophed and vasopressin. We started midodrine. HIT panel pending and hem/onc consulted. 09/23: Patient noted to have unequal pupils with left >right, STAT CT head ordered. Nephro will withhold hemodialysis and assess needs as kidney function has gotten better. Patient symptomatically follows commands and is on nasal cannula. Cardiology stopped his Eliquis due to persistent thrombocytopenia. 09/24: Patient remains confused, pupils still unequal. Started on eliquis 2.5 today and he will be transferred to IMCU. 09/25: Patient remains confused, had Bipap overnight, CT abd/pelvis ordered per ID recommendations given persistent leukocytosis. Cr remains unchanged but BUN in rising. Nephrology is on the case. 09/26/2020; patient was confused and on 3 L of oxygen. ID is following the patient and continue with antiretroviral medications, no OI prophylaxis needed. Patient is on IV Rocephin lasted 09/28 per ID recommendation for E. coli bacteremia. ID ordered CT abdomen and pelvis. We will follow the results. Patient is being followed by cardiology and they recommend to resume Eliquis with 2.5 mg p.o. twice daily, thrombocytopenia is improving. Patient is on amiodarone and metoprolol. Patient is being followed by nephrology and is on dialysis. Blood pressure was normal this morning. Patient was tachycardic in A. fib with RVR. CT head was normal. Prognosis is guarded. Continue IMCU care. 09/27: Continue IMCU care, still with unresolved Afib, will continue to adjust medications for better control. 09/28: Start Seroquel DUE TO THE AGITATION, Discussed with daughter, will work on getting Afib better controlled. Per daughter the confusion is new, although some improvement noted today. Patient will benefit from SNF 09/29: Seroquel started today as it was not started yesterday, await PT/OT, Continue to monitor mental status, will transfer to Tele. Anticipate discharge when bed available. 09/30: Discussed extensively with the daughter about her clinical condition, Seroquel discontinued as patient did not tolerate, still with low BP responded to Fluids. Hold BB and continue to monitor and redirect. Discussed with Nursing staff. 10/01: Patient seen and examined resting comfortably still with intermittent delirium. Blood pressure has improved although beta-ruddy was held midodrine was given. Will change to Coreg 3.125 with holding parameters on discharge. Per cardiology amiodarone changed to 200 mg daily. Neurology evaluation is still pending. I have initiated placement to a SNF facility and once approved patient can be discharged. Daughter has been updated on medical condition. For now on anticoagulation left in place although outpatient this may be discontinued due to patient's mental status if there is no improvement. 10/02: Neurology evaluated the patient for increased agitation and aggressive behavior and confusion. Exam suggestive of delirium stopped. Due to not tolerating Seroquel, now Geodon trial Haldol however recommended also valproic acid. No overnight issues reported. Continue awaiting SNF placement for continued rehab. Blood pressure has remained stable no further fever recorded. Monitor for any recurrence of the pain in the leg. 10/03: I have asked for a sitter a few days ago unfortunately not as available as a result restraints have been used and reassurances. Will decrease Seroquel to 12.5 twice daily as patient did not tolerate the 25 mg. Continue supportive care blood pressure meds held due to hypotension. Delirium still present delirium preventive methods including keeping the lights on through the night windows shades up discussed with nursing staff. Also discussed with neurologist. 10/04: 70-year-old male admitted to the hospital with hypoxic respiratory failure history of Covid. During hospitalization developed A. fib with RVR status metabolic acidosis and acute kidney injury. Has also been exhibiting some delirium was managed in the ICU and IMCU and subsequently is awaiting placement. He was seen by neurologist delirium of diagnosis secondary to metabolic issues. Seroquel was started initially at 25 mg p.o. twice daily but patient developed hypotension now better improved BP, Continue seroquel 12.5mg po BID seems to have good improvement in mental status. awaiting labs due to noted hyperkalemia yesterday. Repeat covud test for placement. 10/05/2020; patient is pending for placement. Repeat Covid test is negative. Blood pressure is within normal limit. Patient is confused. 10/06/2020; repeat Covid test is negative. Patient is confused. Patient last dialysis was on 09/25, renal function is stable, no need dialysis, nephrology is following. History Interval history: Patient was seen and evaluated this morning Patient said he is feeling better Patient was on restraints, patient was on room air Hospitalist Physical - Physical exam Narrative exam: Patient was noting cardiopulmonary distress. The patient appeared well nourished and normally developed. Vital signs as documented. Head exam is unremarkable. No scleral icterus . Neck is without jugular venous distension, thyromegaly, or carotid bruits. Lungs are clear to auscultation. Cardiac exam reveals regular rate and Rhythm. Abdominal exam reveals normal bowel sounds, nontender, no organomegaly. Extremities are nonedematous and both femoral and pedal pulses are normal. 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 - Constitutional Vitals: Temp Pulse Resp BP Pulse Ox 97.9 F 91 H 16 96/64 98 10/06/20 04:34 10/05/20 21:09 10/06/20 04:34 10/06/20 04:34 10/05/20 21:09 General appearance: Present: no acute distress HEART Score - HEART Score Troponin: Troponin T < 0.010 ng/mL (0.00-0.029) 09/22/20 05:38 Results - Labs CBC & Chem 7: 10/05/20 07:14 10/06/20 08:04 Labs: Laboratory Last Values WBC 6.7 K/mm3 (4.5-11.0) 10/05/20 07:14 RBC 2.36 M/mm3 (3.65-5.03) L 10/05/20 07:14 Hgb 7.8 gm/dl (11.8-15.2) L 10/05/20 07:14 Hct 23.3 % (35.5-45.6) L 10/05/20 07:14 MCV 99 fl (84-94) H 10/05/20 07:14 MCH 33 pg (28-32) H 10/05/20 07:14 MCHC 34 % (32-34) 10/05/20 07:14 RDW 16.0 % (13.2-15.2) H 10/05/20 07:14 Plt Count 232 K/mm3 (140-440) 10/05/20 07:14 Lymph % (Auto) 4.3 % (13.4-35.0) L 09/27/20 04:00 Hendricks % (Auto) 6.0 % (0.0-7.3) 09/27/20 04:00 Eos % (Auto) 0.1 % (0.0-4.3) 09/27/20 04:00 Baso % (Auto) 0.0 % (0.0-1.8) 09/27/20 04:00 Lymph # (Auto) 0.6 K/mm3 (1.2-5.4) L 09/27/20 04:00 Hendricks # (Auto) 0.9 K/mm3 (0.0-0.8) H 09/27/20 04:00 Eos # (Auto) 0.0 K/mm3 (0.0-0.4) 09/27/20 04:00 Baso # (Auto) 0.0 K/mm3 (0.0-0.1) 09/27/20 04:00 Add Manual Diff Complete 09/23/20 04:36 Total Counted 100 09/23/20 04:36 Seg Neutrophils % 89.6 % (40.0-70.0) H 09/27/20 04:00 Seg Neuts % (Manual) 91.0 % (40.0-70.0) H 09/23/20 04:36 Band Neutrophils % 2.0 % 09/23/20 04:36 Lymphocytes % (Manual) 2.0 % (13.4-35.0) L 09/23/20 04:36 Monocytes % (Manual) 5.0 % (0.0-7.3) 09/23/20 04:36 Nucleated RBC % Not Reportable 09/23/20 04:36 Seg Neutrophils # 13.1 K/mm3 (1.8-7.7) H 09/27/20 04:00 Seg Neutrophils # Man 12.9 K/mm3 (1.8-7.7) H 09/23/20 04:36 Band Neutrophils # 0.3 K/mm3 09/23/20 04:36 Abs Lymphs (Manual) 223 cells/uL (850-3900) L 09/19/20 13:35 Lymphocytes # (Manual) 0.3 K/mm3 (1.2-5.4) L 09/23/20 04:36 Abs React Lymphs (Man) 0.0 K/mm3 09/23/20 04:36 Monocytes # (Manual) 0.7 K/mm3 (0.0-0.8) 09/23/20 04:36 Eosinophils # (Manual) 0.0 K/mm3 (0.0-0.4) 09/23/20 04:36 Basophils # (Manual) 0.0 K/mm3 (0.0-0.1) 09/23/20 04:36 Metamyelocytes # 0.0 K/mm3 09/23/20 04:36 Myelocytes # 0.0 K/mm3 09/23/20 04:36 Promyelocytes # 0.0 K/mm3 09/23/20 04:36 Blast Cells # 0.0 K/mm3 09/23/20 04:36 WBC Morphology Not Reportable 09/23/20 04:36 Hypersegmented Neuts Not Reportable 09/23/20 04:36 Hyposegmented Neuts Not Reportable 09/23/20 04:36 Hypogranular Neuts Not Reportable 09/23/20 04:36 Smudge Cells Not Reportable 09/23/20 04:36 Toxic Granulation Not Reportable 09/23/20 04:36 Toxic Vacuolation Not Reportable 09/23/20 04:36 Dohle Bodies Not Reportable 09/23/20 04:36 Pelger-Huet Anomaly Not Reportable 09/23/20 04:36 Vinh Rods Not Reportable 09/23/20 04:36 Platelet Estimate Consistent w auto 09/23/20 04:36 Clumped Platelets Not Reportable 09/23/20 04:36 Plt Clumps, EDTA Not Reportable 09/23/20 04:36 Large Platelets Not Reportable 09/23/20 04:36 Giant Platelets Not Reportable 09/23/20 04:36 Platelet Satelliting Not Reportable 09/23/20 04:36 Plt Morphology Comment Not Reportable 09/23/20 04:36 RBC Morphology Not Reportable 09/23/20 04:36 Dimorphic RBCs Not Reportable 09/23/20 04:36 Polychromasia Not Reportable 09/23/20 04:36 Hypochromasia Not Reportable 09/23/20 04:36 Poikilocytosis Not Reportable 09/23/20 04:36 Anisocytosis 1+ 09/23/20 04:36 Microcytosis Not Reportable 09/23/20 04:36 Macrocytosis Not Reportable 09/23/20 04:36 Spherocytes Not Reportable 09/23/20 04:36 Pappenheimer Bodies Not Reportable 09/23/20 04:36 Sickle Cells Not Reportable 09/23/20 04:36 Target Cells Few 09/23/20 04:36 Tear Drop Cells Not Reportable 09/23/20 04:36 Ovalocytes Not Reportable 09/23/20 04:36 Helmet Cells Not Reportable 09/23/20 04:36 [place] Bodies Not Reportable 09/23/20 04:36 Emmet Rings Not Reportable 09/23/20 04:36 [place] Cells Not Reportable 09/23/20 04:36 Bite Cells Not Reportable 09/23/20 04:36 Crenated Cell Not Reportable 09/23/20 04:36 Elliptocytes Not Reportable 09/23/20 04:36 Acanthocytes (Spur) Not Reportable 09/23/20 04:36 Rouleaux Not Reportable 09/23/20 04:36 Hemoglobin C Crystals Not Reportable 09/23/20 04:36 Schistocytes Not Reportable 09/23/20 04:36 Malaria parasites Not Reportable 09/23/20 04:36 Zachary Bodies Not Reportable 09/23/20 04:36 Hem Pathologist Commnt No 09/23/20 04:36 PT 15.7 Sec. (12.2-14.9) H 09/24/20 12:13 INR 1.27 (0.87-1.13) H 09/24/20 12:13 APTT 25.7 Sec. (24.2-36.6) 09/24/20 12:13 D-Dimer 1772.86 ng/mlDDU (0-234) H 09/24/20 05:00 Heparin Anti-Xa Level 0.10 U.I./ml (0.3-0.7) L 09/20/20 04:00 Heparin Anti-Xa, Unfract Negative (Negative) 09/22/20 15:12 ABG pH 7.508 (7.320-7.450) H 09/17/20 10:28 POC ABG pCO2 22.8 mmHg (32.0-48.0) L 09/17/20 10:28 POC ABG pO2 66.8 mmHg (83-108) L 09/17/20 10:28 POC ABG HCO3 17.7 09/17/20 10:28 ABG O2 Saturation 93.4 (0-100) 09/17/20 10:28 POC ABG Base Excess -3.5 09/17/20 10:28 ABG Hemoglobin 12.7 (12.0-17.5) 09/17/20 10:28 ABG Oxyhemoglobin 92.7 (94-98) L 09/17/20 10:28 ABG Methemoglobin 0.3 (0.0-1.5) 09/17/20 10:28 ABG Sodium 127.4 mmol/L (136.0-145.0) L 09/17/20 10:28 ABG Potassium 4.7 mmol/L (3.40-4.50) H 09/17/20 10:28 ABG Chloride 101.0 mmol/L (98-107) 09/17/20 10:28 ABG Glucose 121 mg/dL (65-95) H 09/17/20 10:28 Carboxyhemoglobin 0.4 (0.5-1.5) L 09/17/20 10:28 FiO2 % 21 09/17/20 10:28 Sodium 140 mmol/L (137-145) 10/06/20 08:04 Potassium 3.5 mmol/L (3.6-5.0) L 10/06/20 08:04 Chloride 107.2 mmol/L (98-107) H 10/06/20 08:04 Carbon Dioxide 25 mmol/L (22-30) 10/06/20 08:04 Anion Gap 11 mmol/L 10/06/20 08:04 BUN 30 mg/dL (9-20) H 10/06/20 08:04 Creatinine 2.2 mg/dL (0.8-1.3) H 10/06/20 08:04 Estimated GFR 36 ml/min 10/06/20 08:04 BUN/Creatinine Ratio 14 % 10/06/20 08:04 Glucose 86 mg/dL (75-100) 10/06/20 08:04 POC Glucose 72 mg/dL (70-105) 09/30/20 11:45 Lactic Acid 1.00 mmol/L (0.7-2.0) 09/20/20 17:10 Calcium 8.8 mg/dL (8.4-10.2) 10/06/20 08:04 Phosphorus 2.90 mg/dL (2.5-4.5) 09/26/20 07:06 Magnesium 1.70 mg/dL (1.7-2.3) 09/26/20 07:06 Ferritin 1190.0 ng/mL (30.0-300.0) H 09/24/20 05:00 Total Bilirubin 0.80 mg/dL (0.1-1.2) 09/30/20 04:47 AST 14 units/L (5-40) 09/30/20 04:47 ALT 21 units/L (7-56) 09/30/20 04:47 Alkaline Phosphatase 81 units/L (35-129) 09/30/20 04:47 Lactate Dehydrogenase 276 units/L (91-180) H 09/24/20 05:00 Total Creatine Kinase 20 units/L (55-170) L 09/19/20 03:30 Troponin T < 0.010 ng/mL (0.00-0.029) 09/22/20 05:38 C-Reactive Protein 4.20 mg/dL (0.00-1.30) H 09/24/20 05:00 NT-Pro-B Natriuret Pep 13462 pg/mL (0-900) H 09/17/20 10:47 Serum Total Protein 5.5 g/dL (6.1-8.1) L 09/30/20 04:47 Total Protein 5.9 g/dL (6.3-8.2) L 09/30/20 04:47 Albumin 2.1 g/dL (3.8-4.8) L 09/30/20 04:47 Albumin 2.2 g/dL (3.9-5) L 09/30/20 04:47 Albumin/Globulin Ratio 0.6 % 09/30/20 04:47 Ozqlc-6-Exqpnijhj 0.3 g/dL (0.2-0.3) 09/30/20 04:47 Fvsbg-3-Yrixwomtz 0.7 g/dL (0.5-0.9) 09/30/20 04:47 Beta Globulins 0.3 g/dL (0.2-0.5) 09/30/20 04:47 Gamma Globulins 1.7 g/dL (0.8-1.7) 09/30/20 04:47 Abnorm Protein Band 1 see below 09/30/20 04:47 PEP Interpretation see below 09/30/20 04:47 Triglycerides 137 mg/dL (2-149) 09/17/20 13:54 Cholesterol 48 mg/dL (50-199) L 09/17/20 13:54 LDL Cholesterol Direct 4 mg/dL (50-130) L 09/17/20 13:54 HDL Cholesterol 9 mg/dL (40-59) L 09/17/20 13:54 Cholesterol/HDL Ratio 5.33 % 09/17/20 13:54 Free PSA See scanned result 09/17/20 17:35 % Free PSA Calc See scanned result 09/17/20 17:35 Total PSA See scanned result 09/17/20 17:35 Serotonin Release Assay See scanned result 09/22/20 15:12 Procalcitonin 2.10 ng/mL (<0.15) 09/25/20 06:40 PTH Intact 161.4 pg/mL (15-65) H 09/19/20 03:30 Arterial Blood Glucose 121 mg/dL (65-95) H 09/17/20 10:28 Arterial Blood Ionized Calcium 5.0 mg/dL (4.6-5.3) 09/17/20 10:28 Urine Color Yellow (Yellow) 09/18/20 12:00 Urine Turbidity Cloudy (Clear) 09/18/20 12:00 Urine pH 5.0 (5.0-7.0) 09/18/20 12:00 Ur Specific Solomon 1.009 (1.003-1.030) 09/18/20 12:00 Urine Protein 30 mg/dl mg/dL (Negative) 09/18/20 12:00 Urine Glucose (UA) Neg mg/dL (Negative) 09/18/20 12:00 Urine Ketones Neg mg/dL (Negative) 09/18/20 12:00 Urine Blood Sm (Negative) 09/18/20 12:00 Urine Nitrite Neg (Negative) 09/18/20 12:00 Urine Bilirubin Neg (Negative) 09/18/20 12:00 Urine Urobilinogen < 2.0 mg/dL (<2.0) 09/18/20 12:00 Ur Leukocyte Esterase Mod (Negative) 09/18/20 12:00 Urine WBC (Auto) 71.0 /HPF (0.0-6.0) H 09/18/20 12:00 Urine RBC (Auto) 2.0 /HPF (0.0-6.0) 09/18/20 12:00 U Epithel Cells (Auto) 1.0 /HPF (0-13.0) 09/18/20 12:00 Urine Bacteria (Auto) 4+ /HPF (Negative) 09/18/20 12:00 Urine WBC Clumps 2+ /HPF 09/18/20 12:00 Hyaline Casts 3 /LPF 09/18/20 12:00 Granular Casts 3 /LPF 09/18/20 12:00 Urine Mucus Few /HPF 09/18/20 12:00 Urine Eosinophils None seen (None Seen) 09/19/20 03:15 Urine Creatinine 61.0 mg/dL (0.1-20.0) H 09/18/20 12:00 Urine Sodium 62 mmol/L 09/18/20 12:00 Random Vancomycin 12.7 ug/mL (0-40.0) 09/19/20 03:30 Valproic Acid 17.8 ug/mL (50-100) L 10/03/20 08:12 Heparin-induced Plt Ab Weak positive (Negative) H 09/22/20 15:12 UF Heparin High Dose 0 % Release 09/22/20 15:12 CORAZON UFH Low Dose 0.1 0 % Release 09/22/20 15:12 COR[place]ON UFH Low Dose 0.5 0 % Release 09/22/20 15:12 Lymph Enumerat CD4/CD8 0.70 (0.86-5.00) L 09/19/20 13:35 % CD3 Cells 79 % (57-85) 09/19/20 13:35 Absolute CD3 Count 175 cells/uL (840-3060) L 09/19/20 13:35 % CD4 Cells 31 % (30-61) 09/19/20 13:35 Absolute CD4 Count 70 cells/uL (490-1740) L 09/19/20 13:35 % CD8 Cells 45 % (12-42) H 09/19/20 13:35 Absolute CD8 Count 101 cells/uL (180-1170) L 09/19/20 13:35 % CD19 Cells 12 % (6-29) 09/19/20 13:35 Absolute CD19 Count 26 cells/uL (110-660) L 09/19/20 13:35 Coronavirus (PCR) Negative (Negative) 10/04/20 Unknown Hepatitis A IgM Ab Non-reactive (NonReactive) 09/20/20 17:10 Hep Bs Antigen Non-reactive (Negative) 09/20/20 17:10 Hep B Core IgM Ab Non-reactive (NonReactive) 09/20/20 17:10 Hepatitis C Antibody Non-reactive (NonReactive) 09/20/20 17:10 HIV-1 RNA PCR copies/ml 67 Copies/mL H 09/19/20 13:35 HIV-1 RNA (PCR) log 1.83 Log cps/mL H 09/19/20 13:35 Gardner/IV: Voiding Method Indwelling Catheter Active Medications - Current Medications Current Medications: Generic Name Dose Route Start Last Admin Trade Name Freq PRN Reason Stop Dose Admin Acetaminophen 650 mg 09/17/20 13:52 09/30/20 21:12 Acetaminophen 325 Mg Tab PO 650 mg Q4H PRN Administration Pain MILD(1-3)/Fever >100.5/ANGEL Albuterol 2.5 mg 09/17/20 13:52 09/17/20 20:47 Albuterol 2.5 Mg/3 Ml Nebu IH 2.5 mg Q4HRT PRN Administration Shortness Of Breath Amiodarone HCl 200 mg 10/01/20 22:00 10/05/20 22:31 Amiodarone 200 Mg Tab PO 200 mg BID EDIE Administration Lipase/Protease/Amylase 1 each 09/20/20 13:10 Lipase 10,500/Protease 25,000/Amylase 43,750 (Units) Dr Darnell BINGHAM PRN PRN For Clogged Feeding Tube Apixaban 5 mg 10/05/20 22:00 10/05/20 22:29 Apixaban 5 Mg Tab PO 5 mg Q12HR EDIE Administration Ascorbic Acid 500 mg 09/20/20 22:00 10/05/20 22:29 Ascorbic Acid 500 Mg Tab PO 500 mg BID EDIE Administration Cholecalciferol 1,000 unit 09/21/20 10:00 10/05/20 10:14 Cholecalciferol (Vit D3) 1000 Unit (25 Mcg) Tab PO 1,000 unit QDAY EDIE Administration Docusate Sodium 100 mg 10/05/20 11:00 10/05/20 22:30 Docusate Sodium 100 Mg/10 Ml Oral Liqd PO 100 mg BID EDIE Administration Emtricitabine 200 mg 09/30/20 11:00 10/04/20 11:07 Emtricitabine 200 Mg Cap PO 200 mg Q48H EDIE Administration Famotidine 20 mg 09/24/20 10:00 10/05/20 10:14 Famotidine 20 Mg Tab PO 20 mg DAILY EDIE Administration Haloperidol Lactate 5 mg 10/01/20 11:34 10/04/20 13:32 Haloperidol Lactate 5 Mg/1 Ml Inj IM 5 mg Q6H PRN Administration Agitation Heparin Sodium (Porcine) 3,000 unit 09/20/20 10:06 Heparin 10,000 Units/10 Ml Vial IV VIRGIL PRN hemodialysis Sodium Chloride 100 mls @ 999 mls/hr 09/20/20 10:06 Nacl 0.9% IV VIRGIL PRN Hypotension Metoprolol Tartrate 5 mg 09/19/20 19:06 09/24/20 10:59 Metoprolol Tartrate 5 Mg/5 Ml Inj IV 5 mg Q8HR PRN Administration HR > 135 Minute Metoprolol Tartrate 12.5 mg 10/05/20 14:00 10/05/20 22:23 Metoprolol Tartrate 25 Mg Tab PO 12.5 mg TID EDIE Administration Midodrine 5 mg 09/22/20 12:00 10/05/20 17:46 Midodrine 5 Mg Tab PO 5 mg TID@0800,1200,1600 EDIE Administration Ondansetron HCl 4 mg 09/17/20 13:52 Ondansetron 4 Mg/2 Ml Inj IV Q8H PRN Nausea And Vomiting Quetiapine Fumarate 12.5 mg 10/03/20 22:00 10/05/20 22:28 Quetiapine 25 Mg Tab PO 12.5 mg QHS EDIE Administration Quetiapine Fumarate 12.5 mg 10/04/20 10:00 10/05/20 10:24 Quetiapine 25 Mg Tab PO 12.5 mg QAM EDIE Administration Simple Syrup 15 ml 09/20/20 13:10 Simple Syrup 15 Ml FEEDTUBE PRN PRN Hypoglycemia Simple Syrup 30 ml 09/20/20 13:10 Simple Syrup 15 Ml FEEDTUBE PRN PRN Hypoglycemia Sodium Bicarbonate 325 mg 09/20/20 13:10 Sodium Bicarbonate 325 Mg Tab FEEDTUBE PRN PRN For Clogged Feeding Tube Sodium Chloride 10 ml 09/17/20 22:00 10/05/20 22:29 Sodium Chloride 0.9% 10 Ml Flush Syringe IV 10 ml BID EDIE Administration Sodium Chloride 10 ml 09/17/20 13:52 09/24/20 09:15 Sodium Chloride 0.9% 10 Ml Flush Syringe IV 10 ml PRN PRN Administration LINE FLUSH Tenofovir Disoproxil Fumarate 300 mg 09/30/20 11:00 10/04/20 11:07 Tenofovir 300 Mg Tab PO 300 mg Q48H EDIE Administration Valproic Acid 250 mg 10/03/20 22:00 10/05/20 22:35 Valproic Acid 250 Mg Cap PO 250 mg BID EDIE Administration Zinc Sulfate 220 mg 09/21/20 10:00 10/05/20 10:14 Zinc Sulfate 220 Mg Cap PO 220 mg QDAY EDIE Administration Nutrition/Malnutrition Assess - Dietary Evaluation Nutrition/Malnutrition Findings: Nutrition Notes Start: 09/18/20 11:30 Freq: Status: Active Protocol: Document 10/04/20 15:11 CW (Rec: 10/04/20 15:27 CW [id number]) Nutrition Notes Initial or Follow up Reassessment Current Diagnosis Acute Kidney Injury,Sepsis, Hypertension,Heart Failure, Respiratory Failure Other Pertinent Diagnosis COVID-19 (+), AMS, UTI, afib with RVR, HIV (+) Current Diet Pureed Labs/Tests K 5.4 BUN 48 Cr 2.2 Pertinent Medications Reviewed Height 6 ft 1 in Weight 88.6 kg [place] Body Weight (kg) 83.63 BMI 25.7 Weight change and time frame weight change ntoed Weight Status Underweight Subjective/Other Information F/U for stable TF and weight; Pt diet as been upgraded to PO diet. Pt was eating 100% of meals yesterday but is now refusing meals. Will monitor for stable intakes. Per RN, pt had been previously retaining 850 ml of urine, likely the reason for weight change. Percent of energy/protein needs met: 88%/ 100% (based on 10/03/2020 ) Burn Absent Trauma Absent Current % PO Negligible Minimum of two criteria No Reduced Triage Nurse Strength Measurably Reduced (severe) #2 Nutrition Diagnosis Inadequate oral intake As Evidenced by Signs and Symptoms Diet advanced to PO diet Diagnosis Progress(for reassessment Improved documentation) Is patient on ventilator? No Is Patient Ambulatory and/or Out of Bed No REE-([facility]-confined to bed) 2044.508 Calculation Used for Recommendations [facility] Additional Notes Pro needs: 73 - 88g (1 - 1.2 g /kgUBW 73kg) Fluid needs 1-1.5L/day Nutrition Intervention Change Diet Order: Continue pureed diet add renal modifications Nutrition Support: d/c Goal #1 Meet at least 75% of estimated kcal and protein needs via PO Goal #2 Weight maintenance/weight gain Anticipated Discharge Needs: Renal Pureed Diet Follow-Up By: 10/06/20 Additional Comments F/U for stable intakes, stable weight, and need for ONS
--- NOTE | 2020-10-06 09:34 | Progress Note ---
Assessment and Plan * A. fib with RVR * Telemetry reviewed: A. fib 100s. No events * Continue rate control regimen: Amiodarone 200 mg p.o. twice daily, metopro lol 12.5 mg p.o. 3 times daily. Increase midodrine to 10 mg 3 times daily * Patient is anticoagulated with Eliquis 5 mg twice daily * NSTEMI * Troponins elevated, subacute and nonspecific on admission, repeat troponins are negative x2. * Echocardiogram reviewed (09/18/2020): LVEF is 40 to 45%. LVSF is mildly decreased. Mild concentric LVH. RVSF is mildly reduced. No valvular abnormalities. * LOLI with acute tubular necrosis * Patient on dialysis. Nephrology is following. * No GEMA/ARB in setting of LOLI. Avoid nephrotoxic agents. * DVT prophylaxis * Currently on Eliquis Patient currently stable cardiac status. Patient may discharge to [facility] facility from cardiac standpoint. Will follow on as-needed basis. Patient should follow-up with Dr Mayo in our [place] office on 10/22/2020 at 10:45 AM. #[phone] This patient was seen in conjunction with Dr Mayo who agrees with this assessment and plan of care - Patient Problems (1) AMS (altered mental status) Current Visit: Yes Status: Acute Qualifiers: Altered mental status type: somnolence Qualified Code(s): R40.0 - Somnolence (2) Acute hypoxemic respiratory failure Current Visit: Yes Status: Acute (3) Acute kidney injury (LOLI) with acute tubular necrosis (ATN) Current Visit: Yes Status: Acute (4) Atrial fibrillation with RVR Current Visit: Yes Status: Acute (5) NSTEMI (non-ST elevated myocardial infarction) Current Visit: Yes Status: Acute (6) Metabolic acidosis Current Visit: No Status: Acute (7) Systemic inflammatory response syndrome Current Visit: No Status: Acute Subjective Date of service: 10/06/20 Principal diagnosis: Sepsis, AF with RVR Interval history: Patient resting comfortably in bed. No shortness of breath or chest pain overnight. Telemetry reviewed: Atrial fib 100s. No events Objective Last Vital Signs Temp 97.9 F 10/06/20 04:34 Pulse 91 H 10/05/20 21:09 Resp 16 10/06/20 04:34 BP 96/64 10/06/20 04:34 Pulse Ox 98 10/05/20 21:09 - Physical Examination General: Other (agitated) HEENT: Positive: Normocephaly, Mucus Membranes Moist Neck: Positive: neck supple. Negative: JVD/HJR Cardiac: Positive: irregularly irregular, S1/S2 Lungs: Positive: Normal Exam, Normal Breath Sounds Neuro: Positive: Grossly Intact Abdomen: Positive: Soft Skin: Negative: Rash Musculoskeletal: No Fluid Collection Extremities: Present: upper extr. pulses, lower extr. pulses. Absent: edema - Labs and Meds Comprehensive Metabolic Panel 10/06/20 Range/Units 08:04 Sodium 140 (137-145) mmol/L Potassium 3.5 L (3.6-5.0) mmol/L Chloride 107.2 H (98-107) mmol/L Carbon Dioxide 25 (22-30) mmol/L BUN 30 H (9-20) mg/dL Creatinine 2.2 H (0.8-1.3) mg/dL Glucose 86 (75-100) mg/dL Calcium 8.8 (8.4-10.2) mg/dL - Imaging and Cardiology EKG: report reviewed, image reviewed Echo: report reviewed (09/18/2020 - EF 40-45%, mild concentric LVH, RV sys fxn mildly reduced, no significant valvular abnormality) - Telemetry EKG Rhythm: Atrial Fibrillation Myocardial infarction: septal MS (old age or ind, anterior MS (old age or i - Allied health notes Allied health notes reviewed: nursing
[2020-10-06] MEDS: VALPROIC ACID 250 MG CAP PO SCH ×2 (09:50→21:13)
[2020-10-06] MEDS: DOCUSATE SODIUM 100 MG/10 ML ORAL LIQD PO SCH ×2 (09:50→21:12)
[2020-10-06] MEDS: ASCORBIC ACID 500 MG TAB PO SCH ×2 (09:51→20:59)
[2020-10-06] MEDS: CHOLECALCIFEROL (VIT D3) 1000 UNIT (25 mcg) TAB PO SCH (09:51)
[2020-10-06] MEDS: APIXABAN 5 MG TAB PO SCH ×2 (09:51→20:59)
[2020-10-06] MEDS: ZINC SULFATE 220 MG CAP PO SCH (09:51)
[2020-10-06] MEDS: AMIODARONE 200 MG TAB PO SCH ×2 (09:52→21:00)
[2020-10-06] MEDS: METOPROLOL TARTRATE 25 MG TAB PO SCH ×3 (09:55→21:00)
[2020-10-06] MEDS: MIDODRINE 5 MG TAB PO SCH ×3 (09:55→15:29)
[2020-10-06] MEDS: QUEtiapine 25 MG TAB PO SCH ×2 (09:55→20:59)
[2020-10-06] MEDS: FAMOTIDINE 20 MG TAB PO SCH (09:56)
[2020-10-06] MEDS: TENOFOVIR 300 MG TAB PO SCH (10:52)
[2020-10-06] MEDS: EMTRICITABINE 200 MG CAP PO SCH (10:52)
[2020-10-06] MEDS: DOLUTEGRAVIR 50 MG TAB PO SCH (10:52)
--- NOTE | 2020-10-06 11:55 | Progress Note ---
Assessment and Plan 70 YO Male with HIV, HTN, Atrial Fib currently of therapeutic anticoagulation with Xarelto presents to ED for evaluation. Patient reports "I just can't breathe". Patient states that he has experienced shortness of breath over the past 3 days with persistently worsening symptoms over the same timeframe. EMS notified and upon arrival the patient was found to be in distress with a pulse oximetry of 85% on room air. The patient was placed on supplemental oxygen and subsequently transported to [facility] for further care and evaluation of the aforementioned symptoms. The patient was admitted to this hospital 2 days ago, 09/15, for similar complaints and was found to have A. fib with RVR, hyponatremia, hypomagnesemia and acute kidney injury. Shortly after the patient was admitted he left AMA. The patient was seen and evaluated in the emergency department. All lab and imaging studies reviewed. The patient was also found to have a pulse oximetry of 86% on room air which is consistent with acute hypoxemic respiratory failure. The patient was found to have atrial fibrillation with rapid ventricular response, metabolic acidosis, acute kidney injury, as well as symptoms consistent with acute CHF decompensation. The patient was found to be hypotensive with a blood pressure of 78/43 which resulted in a MAP less than 65. Patient admitted to [facility] due to increased risk of cardiopulmonary decompensation. Patient treated with antiarrhythmic therapy in the emergency department, and initiated on CHF protocol. Cardiology and Nep hrology and pulmonary and critical care consulted. Patient sleeping and patient presently resting on room air. O2 saturation running 97%. No acute respiratory distress at rest. Patient afebrile, with no leukocytosis. Patient's coronavirus test was positive. Patient's inflammatory markers: D-dimer: 1772.86, Ferritin: 1,190, Lactic: 1.00, C-reactive protein: 4.20, NT Pro-BNP: 18,204, Troponin < 0.01, CPK: 20, LDH: 276 Medications include apixaban, albuterol, famotidine, tenofovir. Chest x-ray done on 09/20/20 showed no acute pulmonary or pleural findings. No pneumothorax. - Patient Problems (1) Acute hypoxemic respiratory failure Current Visit: Yes Status: Acute Plan to address problem: Patient resting on room air. O2 saturation running 97%. No acute respiratory distress at rest. Medications include albuterol. (2) CHF (congestive heart failure) Current Visit: Yes Status: Acute Qualifiers: Heart failure type: systolic Heart failure chronicity: acute Qualified Code(s): I50.21 - Acute systolic (congestive) heart failure Plan to address problem: Management as per cardiology (3) LOLI (acute kidney injury) Current Visit: Yes Status: Acute Plan to address problem: Management as per nephrology. (4) AMS (altered mental status) Current Visit: Yes Status: Acute Qualifiers: Altered mental status type: somnolence Qualified Code(s): R40.0 - Somnolence Plan to address problem: Management as per primary team. (5) Atrial fibrillation with RVR Current Visit: Yes Status: Acute Plan to address problem: Management as cardiology. Patient is on Apixaban (6) Coronavirus infection Current Visit: Yes Status: Acute Plan to address problem: Patients [place] virus PCR is positive. Management as per ID. (7) HIV (human immunodeficiency virus infection) Current Visit: Yes Status: Chronic Plan to address problem: Management as per ID. Subjective Date of service: 10/05/20 Principal diagnosis: Sepsis, AF with RVR Interval history: 70 YO Male with HIV, HTN, Atrial Fib currently of therapeutic anticoagulation with Xarelto presents to ED for evaluation. Patient reports "I just can't breathe". Patient states that he has experienced shortness of breath over the past 3 days with persistently worsening symptoms over the same timeframe. EMS notified and upon arrival the patient was found to be in distress with a pulse oximetry of 85% on room air. The patient was placed on supplemental oxygen and subsequently transported to [facility] for further care and evaluation of the aforementioned symptoms. The patient was admitted to this hospital 2 days ago, 09/15, for similar complaints and was found to have A. fib with RVR, hyponatremia, hypomagnesemia and acute kidney injury. Shortly after the patient was admitted he left AMA. The patient was seen and evaluated in the emergency department. All lab and imaging studies reviewed. The patient was also found to have a pulse oximetry of 86% on room air which is consistent with acute hypoxemic respiratory failure. The patient was found to have atrial fibrillation with rapid ventricular response, metabolic acidosis, acute kidney injury, as well as symptoms consistent with acute CHF decompensation. The patient was found to be hypotensive with a blood pressure of 78/43 which resulted in a MAP less than 65. Patient admitted to [facility] due to increased risk of cardiopulmonary decompensation. Patient treated with antiarrhythmic therapy in the emergency department, and initiated on CHF protocol. Cardiology and Nephrology and pulmonary and critical care consulted. Patient sleeping and patient presently resting on room air. O2 saturation running 97%. No acute respiratory distress at rest. Patient afebrile, with no leukocytosis. Patient's coronavirus test was positive. Patient's inflammatory markers: D-dimer: 1772.86, Ferritin: 1,190, Lactic: 1.00, C-reactive protein: 4.20, NT Pro-BNP: 18,204, Troponin < 0.01, CPK: 20, LDH: 276 Medications include apixaban, albuterol, famotidine, tenofovir. Chest x-ray done on 09/20/20 showed no acute pulmonary or pleural findings. No pneumothorax. Objective Vital Signs - 12hr 10/05/20 10/05/20 10/05/20 10:00 10:19 13:28 Temperature Pulse Rate 105 H 81 Respiratory 20 Rate Blood Pressure 100/51 85/57 10/05/20 16:43 Temperature 97.9 F Pulse Rate Respiratory 18 Rate Blood Pressure 103/64 Constitutional: no acute distress, asleep, other (elderly male without increased respiratory effort at rest) Eyes: non-icteric ENT: oropharynx moist Neck: supple, no lymphadenopathy, no JVD Effort: mildly labored Ascultation: Bilateral: rhonchi, other (right SCVL Trialysis catheter) Percussion: Bilateral: not dull Cardiovascular: irregular rhythm Gastrointestinal: normoactive bowel sounds, soft, non-tender, non-distended Integumentary: normal Extremities: no cyanosis, no edema, pulses normal, no ischemia or petechiae Neurologic: non-focal exam (grossly), pupils equal and round, CN II-XII normal, motor strength normal and, other (mild delirium) Psychiatric: other (mild delirium) CBC and BMP: 10/05/20 07:14 10/06/20 08:04 ABG, PT/INR, D-dimer: ABG ABG pH 7.508 (7.320-7.450) H 09/17/20 10:28 POC ABG pCO2 22.8 mmHg (32.0-48.0) L 09/17/20 10:28 POC ABG pO2 66.8 mmHg (83-108) L 09/17/20 10:28 POC ABG HCO3 17.7 09/17/20 10:28 ABG O2 Saturation 93.4 (0-100) 09/17/20 10:28 PT/INR, D-dimer PT 15.7 Sec. (12.2-14.9) H 09/24/20 12:13 INR 1.27 (0.87-1.13) H 09/24/20 12:13 D-Dimer 1772.86 ng/mlDDU (0-234) H 09/24/20 05:00 Abnormal lab findings: Abnormal Labs 09/17/20 09/17/20 09/17/20 10:28 10:47 10:47 WBC 11.1 H RBC 3.44 L Hgb 11.2 L Hct 32.8 L MCV 95 H MCH MCHC RDW Plt Count Lymph % (Auto) Mineral % (Auto) Lymph # (Auto) Mineral # (Auto) Seg Neutrophils % Seg Neuts % (Manual) Lymphocytes % (Manual) 4.0 L Monocytes % (Manual) Nucleated RBC % Seg Neutrophils # Seg Neutrophils # Man 10.7 H Abs Lymphs (Manual) Lymphocytes # (Manual) 0.4 L PT 32.9 H INR 3.16 H APTT 51.1 H D-Dimer Heparin Anti-Xa Level ABG pH 7.508 H POC ABG pCO2 22.8 L POC ABG pO2 66.8 L ABG Oxyhemoglobin 92.7 L ABG Sodium 127.4 L ABG Potassium 4.7 H ABG Glucose 121 H Carboxyhemoglobin 0.4 L Sodium Potassium Chloride Carbon Dioxide BUN Creatinine Glucose POC Glucose Calcium Phosphorus Ferritin Total Bilirubin AST ALT Alkaline Phosphatase Lactate Dehydrogenase Total Creatine Kinase Troponin T C-Reactive Protein NT-Pro-B Natriuret Pep Serum Total Protein Total Protein Albumin Cholesterol LDL Cholesterol Direct HDL Cholesterol PTH Intact Arterial Blood Glucose 121 H Urine WBC (Auto) Urine Creatinine Valproic Acid Heparin-induced Plt Ab Lymph Enumerat CD4/CD8 Absolute CD3 Count Absolute CD4 Count % CD8 Cells Absolute CD8 Count Absolute CD19 Count Coronavirus (PCR) HIV-1 RNA PCR copies/ml HIV-1 RNA (PCR) log 09/17/20 09/17/20 09/17/20 10:47 10:47 13:54 WBC RBC Hgb Hct MCV MCH MCHC RDW Plt Count Lymph % (Auto) Mineral % (Auto) Lymph # (Auto) Mineral # (Auto) Seg Neutrophils % Seg Neuts % (Manual) Lymphocytes % (Manual) Monocytes % (Manual) Nucleated RBC % Seg Neutrophils # Seg Neutrophils # Man Abs Lymphs (Manual) Lymphocytes # (Manual) PT INR APTT D-Dimer Heparin Anti-Xa Level ABG pH POC ABG pCO2 POC ABG pO2 ABG Oxyhemoglobin ABG Sodium ABG Potassium ABG Glucose Carboxyhemoglobin Sodium 125 L Potassium Chloride 95.3 L Carbon Dioxide 17 L BUN 64 H Creatinine 4.6 H D Glucose 104 H POC Glucose Calcium Phosphorus Ferritin Total Bilirubin AST 69 H ALT Alkaline Phosphatase Lactate Dehydrogenase Total Creatine Kinase Troponin T 0.061 H D 0.058 H C-Reactive Protein NT-Pro-B Natriuret Pep 64664 H Serum Total Protein Total Protein Albumin 1.9 L Cholesterol 48 L LDL Cholesterol Direct 4 L HDL Cholesterol 9 L PTH Intact Arterial Blood Glucose Urine WBC (Auto) Urine Creatinine Valproic Acid Heparin-induced Plt Ab Lymph Enumerat CD4/CD8 Absolute CD3 Count Absolute CD4 Count % CD8 Cells Absolute CD8 Count Absolute CD19 Count Coronavirus (PCR) HIV-1 RNA PCR copies/ml HIV-1 RNA (PCR) log 09/17/20 09/17/20 09/17/20 16:36 17:35 17:35 WBC RBC 3.25 L Hgb 10.7 L Hct 31.1 L MCV 96 H MCH 33 H MCHC RDW Plt Count Lymph % (Auto) Mineral % (Auto) Lymph # (Auto) Mineral # (Auto) Seg Neutrophils % Seg Neuts % (Manual) Lymphocytes % (Manual) Monocytes % (Manual) Nucleated RBC % Seg Neutrophils # Seg Neutrophils # Man Abs Lymphs (Manual) Lymphocytes # (Manual) PT 31.9 H INR 3.04 H APTT 50.9 H D-Dimer Heparin Anti-Xa Level ABG pH POC ABG pCO2 POC ABG pO2 ABG Oxyhemoglobin ABG Sodium ABG Potassium ABG Glucose Carboxyhemoglobin Sodium Potassium Chloride Carbon Dioxide BUN Creatinine Glucose POC Glucose Calcium Phosphorus Ferritin Total Bilirubin AST ALT Alkaline Phosphatase Lactate Dehydrogenase Total Creatine Kinase Troponin T 0.057 H C-Reactive Protein NT-Pro-B Natriuret Pep Serum Total Protein Total Protein Albumin Cholesterol LDL Cholesterol Direct HDL Cholesterol PTH Intact Arterial Blood Glucose Urine WBC (Auto) Urine Creatinine Valproic Acid Heparin-induced Plt Ab Lymph Enumerat CD4/CD8 Absolute CD3 Count Absolute CD4 Count % CD8 Cells Absolute CD8 Count Absolute CD19 Count Coronavirus (PCR) HIV-1 RNA PCR copies/ml HIV-1 RNA (PCR) log 09/17/20 09/18/20 09/18/20 17:35 03:19 03:19 WBC RBC 3.32 L Hgb 10.9 L Hct 32.0 L MCV 96 H MCH 33 H MCHC RDW Plt Count 138 L Lymph % (Auto) Mineral % (Auto) Lymph # (Auto) Mineral # (Auto) Seg Neutrophils % Seg Neuts % (Manual) 95.0 H Lymphocytes % (Manual) 3.0 L Monocytes % (Manual) Nucleated RBC % Seg Neutrophils # Seg Neutrophils # Man 8.1 H Abs Lymphs (Manual) Lymphocytes # (Manual) 0.3 L PT INR APTT D-Dimer Heparin Anti-Xa Level ABG pH POC ABG pCO2 POC ABG pO2 ABG Oxyhemoglobin ABG Sodium ABG Potassium ABG Glucose Carboxyhemoglobin Sodium Potassium Chloride Carbon Dioxide 16 L BUN 70 H Creatinine 4.6 H 4.7 H Glucose 104 H POC Glucose Calcium 8.2 L Phosphorus Ferritin Total Bilirubin 1.60 H AST 128 H ALT 67 H Alkaline Phosphatase Lactate Dehydrogenase Total Creatine Kinase Troponin T C-Reactive Protein NT-Pro-B Natriuret Pep Serum Total Protein Total Protein 5.2 L D Albumin 2.5 L Cholesterol LDL Cholesterol Direct HDL Cholesterol PTH Intact Arterial Blood Glucose Urine WBC (Auto) Urine Creatinine Valproic Acid Heparin-induced Plt Ab Lymph Enumerat CD4/CD8 Absolute CD3 Count Absolute CD4 Count % CD8 Cells Absolute CD8 Count Absolute CD19 Count Coronavirus (PCR) HIV-1 RNA PCR copies/ml HIV-1 RNA (PCR) log 09/18/20 09/18/20 09/18/20 09:39 12:00 12:00 WBC RBC Hgb Hct MCV MCH MCHC RDW Plt Count Lymph % (Auto) Mineral % (Auto) Lymph # (Auto) Mineral # (Auto) Seg Neutrophils % Seg Neuts % (Manual) Lymphocytes % (Manual) Monocytes % (Manual) Nucleated RBC % Seg Neutrophils # Seg Neutrophils # Man Abs Lymphs (Manual) Lymphocytes # (Manual) PT INR APTT D-Dimer Heparin Anti-Xa Level ABG pH POC ABG pCO2 POC ABG pO2 ABG Oxyhemoglobin ABG Sodium ABG Potassium ABG Glucose Carboxyhemoglobin Sodium Potassium Chloride Carbon Dioxide BUN Creatinine Glucose POC Glucose Calcium Phosphorus Ferritin Total Bilirubin AST ALT Alkaline Phosphatase Lactate Dehydrogenase Total Creatine Kinase Troponin T C-Reactive Protein NT-Pro-B Natriuret Pep Serum Total Protein Total Protein Albumin Cholesterol LDL Cholesterol Direct HDL Cholesterol PTH Intact Arterial Blood Glucose Urine WBC (Auto) 71.0 H Urine Creatinine 61.0 H Valproic Acid Heparin-induced Plt Ab Lymph Enumerat CD4/CD8 Absolute CD3 Count Absolute CD4 Count % CD8 Cells Absolute CD8 Count Absolute CD19 Count Coronavirus (PCR) Positive A HIV-1 RNA PCR copies/ml HIV-1 RNA (PCR) log 09/18/20 09/18/20 09/18/20 15:07 15:07 18:33 WBC RBC Hgb 10.7 L Hct 31.3 L MCV MCH MCHC RDW Plt Count Lymph % (Auto) Mineral % (Auto) Lymph # (Auto) Mineral # (Auto) Seg Neutrophils % Seg Neuts % (Manual) Lymphocytes % (Manual) Monocytes % (Manual) Nucleated RBC % Seg Neutrophils # Seg Neutrophils # Man Abs Lymphs (Manual) Lymphocytes # (Manual) PT 20.3 H INR 1.73 H APTT 40.8 H D-Dimer Heparin Anti-Xa Level 1.09 H ABG pH POC ABG pCO2 POC ABG pO2 ABG Oxyhemoglobin ABG Sodium ABG Potassium ABG Glucose Carboxyhemoglobin Sodium Potassium Chloride Carbon Dioxide BUN Creatinine Glucose POC Glucose Calcium Phosphorus Ferritin Total Bilirubin AST ALT Alkaline Phosphatase Lactate Dehydrogenase Total Creatine Kinase Troponin T C-Reactive Protein NT-Pro-B Natriuret Pep Serum Total Protein Total Protein Albumin Cholesterol LDL Cholesterol Direct HDL Cholesterol PTH Intact Arterial Blood Glucose Urine WBC (Auto) Urine Creatinine Valproic Acid Heparin-induced Plt Ab Lymph Enumerat CD4/CD8 Absolute CD3 Count Absolute CD4 Count % CD8 Cells Absolute CD8 Count Absolute CD19 Count Coronavirus (PCR) HIV-1 RNA PCR copies/ml HIV-1 RNA (PCR) log 09/19/20 09/19/20 09/19/20 03:30 03:30 03:30 WBC RBC 3.29 L Hgb 10.9 L Hct 30.9 L MCV MCH 33 H MCHC 35 H RDW Plt Count Lymph % (Auto) Mineral % (Auto) Lymph # (Auto) Mineral # (Auto) Seg Neutrophils % Seg Neuts % (Manual) Lymphocytes % (Manual) Monocytes % (Manual) Nucleated RBC % Seg Neutrophils # Seg Neutrophils # Man Abs Lymphs (Manual) Lymphocytes # (Manual) PT INR APTT D-Dimer Heparin Anti-Xa Level ABG pH POC ABG pCO2 POC ABG pO2 ABG Oxyhemoglobin ABG Sodium ABG Potassium ABG Glucose Carboxyhemoglobin Sodium 133 L Potassium Chloride Carbon Dioxide 17 L BUN 94 H Creatinine 5.0 H Glucose 120 H POC Glucose Calcium Phosphorus 6.30 H Ferritin Total Bilirubin 2.40 H AST 163 H ALT 109 H Alkaline Phosphatase 160 H Lactate Dehydrogenase Total Creatine Kinase 20 L Troponin T C-Reactive Protein NT-Pro-B Natriuret Pep Serum Total Protein Total Protein 6.2 L Albumin 2.0 L Cholesterol LDL Cholesterol Direct HDL Cholesterol PTH Intact 161.4 H Arterial Blood Glucose Urine WBC (Auto) Urine Creatinine Valproic Acid Heparin-induced Plt Ab Lymph Enumerat CD4/CD8 Absolute CD3 Count Absolute CD4 Count % CD8 Cells Absolute CD8 Count Absolute CD19 Count Coronavirus (PCR) HIV-1 RNA PCR copies/ml HIV-1 RNA (PCR) log 09/19/20 09/19/20 09/19/20 06:35 13:35 13:35 WBC RBC Hgb Hct MCV MCH MCHC RDW Plt Count Lymph % (Auto) Mineral % (Auto) Lymph # (Auto) Mineral # (Auto) Seg Neutrophils % Seg Neuts % (Manual) Lymphocytes % (Manual) Monocytes % (Manual) Nucleated RBC % Seg Neutrophils # Seg Neutrophils # Man Abs Lymphs (Manual) 223 L Lymphocytes # (Manual) PT INR APTT D-Dimer Heparin Anti-Xa Level ABG pH POC ABG pCO2 POC ABG pO2 ABG Oxyhemoglobin ABG Sodium ABG Potassium ABG Glucose Carboxyhemoglobin Sodium Potassium Chloride Carbon Dioxide BUN Creatinine Glucose POC Glucose 123 H Calcium Phosphorus Ferritin Total Bilirubin AST ALT Alkaline Phosphatase Lactate Dehydrogenase Total Creatine Kinase Troponin T C-Reactive Protein NT-Pro-B Natriuret Pep Serum Total Protein Total Protein Albumin Cholesterol LDL Cholesterol Direct HDL Cholesterol PTH Intact Arterial Blood Glucose Urine WBC (Auto) Urine Creatinine Valproic Acid Heparin-induced Plt Ab Lymph Enumerat CD4/CD8 0.70 L Absolute CD3 Count 175 L Absolute CD4 Count 70 L % CD8 Cells 45 H Absolute CD8 Count 101 L Absolute CD19 Count 26 L Coronavirus (PCR) HIV-1 RNA PCR copies/ml 67 H HIV-1 RNA (PCR) log 1.83 H 09/19/20 09/20/20 09/20/20 23:37 04:00 04:00 WBC RBC 3.43 L Hgb 11.1 L Hct 32.2 L MCV MCH MCHC RDW Plt Count 131 L Lymph % (Auto) Mineral % (Auto) Lymph # (Auto) Mineral # (Auto) Seg Neutrophils % Seg Neuts % (Manual) 88.0 H Lymphocytes % (Manual) 3.0 L Monocytes % (Manual) 9.0 H Nucleated RBC % Seg Neutrophils # Seg Neutrophils # Man 8.2 H Abs Lymphs (Manual) Lymphocytes # (Manual) 0.3 L PT INR APTT D-Dimer Heparin Anti-Xa Level 0.10 L ABG pH POC ABG pCO2 POC ABG pO2 ABG Oxyhemoglobin ABG Sodium ABG Potassium ABG Glucose Carboxyhemoglobin Sodium Potassium Chloride Carbon Dioxide BUN Creatinine Glucose POC Glucose 135 H Calcium Phosphorus Ferritin Total Bilirubin AST ALT Alkaline Phosphatase Lactate Dehydrogenase Total Creatine Kinase Troponin T C-Reactive Protein NT-Pro-B Natriuret Pep Serum Total Protein Total Protein Albumin Cholesterol LDL Cholesterol Direct HDL Cholesterol PTH Intact Arterial Blood Glucose Urine WBC (Auto) Urine Creatinine Valproic Acid Heparin-induced Plt Ab Lymph Enumerat CD4/CD8 Absolute CD3 Count Absolute CD4 Count % CD8 Cells Absolute CD8 Count Absolute CD19 Count Coronavirus (PCR) HIV-1 RNA PCR copies/ml HIV-1 RNA (PCR) log 09/20/20 09/20/20 09/20/20 04:00 05:37 11:20 WBC RBC Hgb Hct MCV MCH MCHC RDW Plt Count Lymph % (Auto) Mineral % (Auto) Lymph # (Auto) Mineral # (Auto) Seg Neutrophils % Seg Neuts % (Manual) Lymphocytes % (Manual) Monocytes % (Manual) Nucleated RBC % Seg Neutrophils # Seg Neutrophils # Man Abs Lymphs (Manual) Lymphocytes # (Manual) PT INR APTT D-Dimer Heparin Anti-Xa Level ABG pH POC ABG pCO2 POC ABG pO2 ABG Oxyhemoglobin ABG Sodium ABG Potassium ABG Glucose Carboxyhemoglobin Sodium Potassium Chloride Carbon Dioxide 16 L BUN 119 H Creatinine 6.2 H Glucose 136 H POC Glucose 137 H 108 H Calcium Phosphorus Ferritin Total Bilirubin AST ALT Alkaline Phosphatase Lactate Dehydrogenase Total Creatine Kinase Troponin T C-Reactive Protein NT-Pro-B Natriuret Pep Serum Total Protein Total Protein Albumin Cholesterol LDL Cholesterol Direct HDL Cholesterol PTH Intact Arterial Blood Glucose Urine WBC (Auto) Urine Creatinine Valproic Acid Heparin-induced Plt Ab Lymph Enumerat CD4/CD8 Absolute CD3 Count Absolute CD4 Count % CD8 Cells Absolute CD8 Count Absolute CD19 Count Coronavirus (PCR) HIV-1 RNA PCR copies/ml HIV-1 RNA (PCR) log 09/20/20 09/20/20 09/20/20 17:10 17:10 17:10 WBC RBC Hgb Hct MCV MCH MCHC RDW Plt Count Lymph % (Auto) Mineral % (Auto) Lymph # (Auto) Mineral # (Auto) Seg Neutrophils % Seg Neuts % (Manual) Lymphocytes % (Manual) Monocytes % (Manual) Nucleated RBC % Seg Neutrophils # Seg Neutrophils # Man Abs Lymphs (Manual) Lymphocytes # (Manual) PT INR APTT D-Dimer 4271.58 H Heparin Anti-Xa Level ABG pH POC ABG pCO2 POC ABG pO2 ABG Oxyhemoglobin ABG Sodium ABG Potassium ABG Glucose Carboxyhemoglobin Sodium Potassium Chloride Carbon Dioxide BUN Creatinine 6.0 H Glucose POC Glucose Calcium Phosphorus Ferritin 696.6 H Total Bilirubin AST ALT Alkaline Phosphatase Lactate Dehydrogenase Total Creatine Kinase Troponin T C-Reactive Protein NT-Pro-B Natriuret Pep Serum Total Protein Total Protein Albumin Cholesterol LDL Cholesterol Direct HDL Cholesterol PTH Intact Arterial Blood Glucose Urine WBC (Auto) Urine Creatinine Valproic Acid Heparin-induced Plt Ab Lymph Enumerat CD4/CD8 Absolute CD3 Count Absolute CD4 Count % CD8 Cells Absolute CD8 Count Absolute CD19 Count Coronavirus (PCR) HIV-1 RNA PCR copies/ml HIV-1 RNA (PCR) log 09/20/20 09/20/20 09/20/20 17:10 18:21 23:14 WBC RBC Hgb Hct MCV MCH MCHC RDW Plt Count Lymph % (Auto) Mineral % (Auto) Lymph # (Auto) Mineral # (Auto) Seg Neutrophils % Seg Neuts % (Manual) Lymphocytes % (Manual) Monocytes % (Manual) Nucleated RBC % Seg Neutrophils # Seg Neutrophils # Man Abs Lymphs (Manual) Lymphocytes # (Manual) PT INR APTT D-Dimer Heparin Anti-Xa Level ABG pH POC ABG pCO2 POC ABG pO2 ABG Oxyhemoglobin ABG Sodium ABG Potassium ABG Glucose Carboxyhemoglobin Sodium Potassium Chloride Carbon Dioxide BUN Creatinine Glucose POC Glucose 129 H 170 H Calcium Phosphorus Ferritin Total Bilirubin AST ALT Alkaline Phosphatase Lactate Dehydrogenase 209 H Total Creatine Kinase Troponin T C-Reactive Protein 10.60 H NT-Pro-B Natriuret Pep Serum Total Protein Total Protein Albumin Cholesterol LDL Cholesterol Direct HDL Cholesterol PTH Intact Arterial Blood Glucose Urine WBC (Auto) Urine Creatinine Valproic Acid Heparin-induced Plt Ab Lymph Enumerat CD4/CD8 Absolute CD3 Count Absolute CD4 Count % CD8 Cells Absolute CD8 Count Absolute CD19 Count Coronavirus (PCR) HIV-1 RNA PCR copies/ml HIV-1 RNA (PCR) log 09/21/20 09/21/20 09/21/20 05:35 17:09 23:18 WBC RBC Hgb Hct MCV MCH MCHC RDW Plt Count Lymph % (Auto) Mineral % (Auto) Lymph # (Auto) Mineral # (Auto) Seg Neutrophils % Seg Neuts % (Manual) Lymphocytes % (Manual) Monocytes % (Manual) Nucleated RBC % Seg Neutrophils # Seg Neutrophils # Man Abs Lymphs (Manual) Lymphocytes # (Manual) PT INR APTT D-Dimer Heparin Anti-Xa Level ABG pH POC ABG pCO2 POC ABG pO2 ABG Oxyhemoglobin ABG Sodium ABG Potassium ABG Glucose Carboxyhemoglobin Sodium Potassium Chloride Carbon Dioxide BUN Creatinine Glucose POC Glucose 170 H 140 H 139 H Calcium Phosphorus Ferritin Total Bilirubin AST ALT Alkaline Phosphatase Lactate Dehydrogenase Total Creatine Kinase Troponin T C-Reactive Protein NT-Pro-B Natriuret Pep Serum Total Protein Total Protein Albumin Cholesterol LDL Cholesterol Direct HDL Cholesterol PTH Intact Arterial Blood Glucose Urine WBC (Auto) Urine Creatinine Valproic Acid Heparin-induced Plt Ab Lymph Enumerat CD4/CD8 Absolute CD3 Count Absolute CD4 Count % CD8 Cells Absolute CD8 Count Absolute CD19 Count Coronavirus (PCR) HIV-1 RNA PCR copies/ml HIV-1 RNA (PCR) log 09/21/20 09/21/20 09/21/20 Unknown Unknown Unknown WBC RBC 3.56 L Hgb 11.3 L Hct 33.2 L MCV MCH MCHC RDW Plt Count 125 L Lymph % (Auto) Mineral % (Auto) Lymph # (Auto) Mineral # (Auto) Seg Neutrophils % Seg Neuts % (Manual) 90.0 H Lymphocytes % (Manual) 8.0 L Monocytes % (Manual) Nucleated RBC % 1.0 H Seg Neutrophils # Seg Neutrophils # Man 9.4 H Abs Lymphs (Manual) Lymphocytes # (Manual) 0.8 L PT 16.8 H INR 1.36 H APTT D-Dimer Heparin Anti-Xa Level ABG pH POC ABG pCO2 POC ABG pO2 ABG Oxyhemoglobin ABG Sodium ABG Potassium ABG Glucose Carboxyhemoglobin Sodium Potassium Chloride Carbon Dioxide BUN 83 H Creatinine 4.3 H Glucose 163 H POC Glucose Calcium Phosphorus Ferritin Total Bilirubin 2.40 H AST ALT 57 H Alkaline Phosphatase < 5 L Lactate Dehydrogenase Total Creatine Kinase Troponin T C-Reactive Protein NT-Pro-B Natriuret Pep Serum Total Protein Total Protein Albumin 1.9 L Cholesterol LDL Cholesterol Direct HDL Cholesterol PTH Intact Arterial Blood Glucose Urine WBC (Auto) Urine Creatinine Valproic Acid Heparin-induced Plt Ab Lymph Enumerat CD4/CD8 Absolute CD3 Count Absolute CD4 Count % CD8 Cells Absolute CD8 Count Absolute CD19 Count Coronavirus (PCR) HIV-1 RNA PCR copies/ml HIV-1 RNA (PCR) log 09/22/20 09/22/20 09/22/20 05:38 05:38 05:38 WBC 15.8 H RBC 3.36 L Hgb 10.8 L Hct 31.0 L MCV MCH MCHC 35 H RDW Plt Count 68 L Lymph % (Auto) 3.1 L Mineral % (Auto) 10.7 H Lymph # (Auto) 0.5 L Mineral # (Auto) 1.7 H Seg Neutrophils % 85.9 H Seg Neuts % (Manual) Lymphocytes % (Manual) Monocytes % (Manual) Nucleated RBC % Seg Neutrophils # 13.6 H Seg Neutrophils # Man Abs Lymphs (Manual) Lymphocytes # (Manual) PT INR APTT D-Dimer 3281.49 H Heparin Anti-Xa Level ABG pH POC ABG pCO2 POC ABG pO2 ABG Oxyhemoglobin ABG Sodium ABG Potassium ABG Glucose Carboxyhemoglobin Sodium Potassium Chloride Carbon Dioxide BUN 61 H Creatinine 3.1 H Glucose 129 H POC Glucose Calcium Phosphorus Ferritin Total Bilirubin AST ALT Alkaline Phosphatase Lactate Dehydrogenase 277 H Total Creatine Kinase Troponin T C-Reactive Protein 6.60 H NT-Pro-B Natriuret Pep Serum Total Protein Total Protein Albumin Cholesterol LDL Cholesterol Direct HDL Cholesterol PTH Intact Arterial Blood Glucose Urine WBC (Auto) Urine Creatinine Valproic Acid Heparin-induced Plt Ab Lymph Enumerat CD4/CD8 Absolute CD3 Count Absolute CD4 Count % CD8 Cells Absolute CD8 Count Absolute CD19 Count Coronavirus (PCR) HIV-1 RNA PCR copies/ml HIV-1 RNA (PCR) log 09/22/20 09/22/20 09/22/20 05:38 05:44 11:26 WBC RBC Hgb Hct MCV MCH MCHC RDW Plt Count Lymph % (Auto) Mineral % (Auto) Lymph # (Auto) Mineral # (Auto) Seg Neutrophils % Seg Neuts % (Manual) Lymphocytes % (Manual) Monocytes % (Manual) Nucleated RBC % Seg Neutrophils # Seg Neutrophils # Man Abs Lymphs (Manual) Lymphocytes # (Manual) PT INR APTT D-Dimer Heparin Anti-Xa Level ABG pH POC ABG pCO2 POC ABG pO2 ABG Oxyhemoglobin ABG Sodium ABG Potassium ABG Glucose Carboxyhemoglobin Sodium Potassium Chloride Carbon Dioxide BUN Creatinine Glucose POC Glucose 112 H 131 H Calcium Phosphorus Ferritin 927.8 H Total Bilirubin AST ALT Alkaline Phosphatase Lactate Dehydrogenase Total Creatine Kinase Troponin T C-Reactive Protein NT-Pro-B Natriuret Pep Serum Total Protein Total Protein Albumin Cholesterol LDL Cholesterol Direct HDL Cholesterol PTH Intact Arterial Blood Glucose Urine WBC (Auto) Urine Creatinine Valproic Acid Heparin-induced Plt Ab Lymph Enumerat CD4/CD8 Absolute CD3 Count Absolute CD4 Count % CD8 Cells Absolute CD8 Count Absolute CD19 Count Coronavirus (PCR) HIV-1 RNA PCR copies/ml HIV-1 RNA (PCR) log 09/22/20 09/22/20 09/22/20 15:12 15:12 15:12 WBC RBC Hgb Hct MCV MCH MCHC RDW Plt Count Lymph % (Auto) Mineral % (Auto) Lymph # (Auto) Mineral # (Auto) Seg Neutrophils % Seg Neuts % (Manual) Lymphocytes % (Manual) Monocytes % (Manual) Nucleated RBC % Seg Neutrophils # Seg Neutrophils # Man Abs Lymphs (Manual) Lymphocytes # (Manual) PT 17.3 H INR 1.42 H APTT D-Dimer Heparin Anti-Xa Level ABG pH POC ABG pCO2 POC ABG pO2 ABG Oxyhemoglobin ABG Sodium ABG Potassium ABG Glucose Carboxyhemoglobin Sodium Potassium Chloride Carbon Dioxide BUN Creatinine 3.0 H Glucose POC Glucose Calcium Phosphorus Ferritin Total Bilirubin AST ALT Alkaline Phosphatase Lactate Dehydrogenase Total Creatine Kinase Troponin T C-Reactive Protein NT-Pro-B Natriuret Pep Serum Total Protein Total Protein Albumin Cholesterol LDL Cholesterol Direct HDL Cholesterol PTH Intact Arterial Blood Glucose Urine WBC (Auto) Urine Creatinine Valproic Acid Heparin-induced Plt Ab Weak positive H Lymph Enumerat CD4/CD8 Absolute CD3 Count Absolute CD4 Count % CD8 Cells Absolute CD8 Count Absolute CD19 Count Coronavirus (PCR) HIV-1 RNA PCR copies/ml HIV-1 RNA (PCR) log 09/22/20 09/22/2021 16:53 23:55 04:36 WBC 14.2 H RBC 3.05 L Hgb 9.8 L Hct 28.4 L MCV MCH MCHC RDW Plt Count 39 L Lymph % (Auto) Mineral % (Auto) Lymph # (Auto) Mineral # (Auto) Seg Neutrophils % Seg Neuts % (Manual) 91.0 H Lymphocytes % (Manual) 2.0 L Monocytes % (Manual) Nucleated RBC % Seg Neutrophils # Seg Neutrophils # Man 12.9 H Abs Lymphs (Manual) Lymphocytes # (Manual) 0.3 L PT INR APTT D-Dimer Heparin Anti-Xa Level ABG pH POC ABG pCO2 POC ABG pO2 ABG Oxyhemoglobin ABG Sodium ABG Potassium ABG Glucose Carboxyhemoglobin Sodium Potassium Chloride Carbon Dioxide BUN Creatinine Glucose POC Glucose 138 H 171 H Calcium Phosphorus Ferritin Total Bilirubin AST ALT Alkaline Phosphatase Lactate Dehydrogenase Total Creatine Kinase Troponin T C-Reactive Protein NT-Pro-B Natriuret Pep Serum Total Protein Total Protein Albumin Cholesterol LDL Cholesterol Direct HDL Cholesterol PTH Intact Arterial Blood Glucose Urine WBC (Auto) Urine Creatinine Valproic Acid Heparin-induced Plt Ab Lymph Enumerat CD4/CD8 Absolute CD3 Count Absolute CD4 Count % CD8 Cells Absolute CD8 Count Absolute CD19 Count Coronavirus (PCR) HIV-1 RNA PCR copies/ml HIV-1 RNA (PCR) log 09/23/20 09/23/20 09/23/20 04:36 05:41 11:38 WBC RBC Hgb Hct MCV MCH MCHC RDW Plt Count Lymph % (Auto) Mineral % (Auto) Lymph # (Auto) Mineral # (Auto) Seg Neutrophils % Seg Neuts % (Manual) Lymphocytes % (Manual) Monocytes % (Manual) Nucleated RBC % Seg Neutrophils # Seg Neutrophils # Man Abs Lymphs (Manual) Lymphocytes # (Manual) PT INR APTT D-Dimer Heparin Anti-Xa Level ABG pH POC ABG pCO2 POC ABG pO2 ABG Oxyhemoglobin ABG Sodium ABG Potassium ABG Glucose Carboxyhemoglobin Sodium Potassium Chloride Carbon Dioxide BUN 76 H Creatinine 3.1 H Glucose 157 H POC Glucose 136 H 141 H Calcium Phosphorus Ferritin Total Bilirubin AST ALT Alkaline Phosphatase Lactate Dehydrogenase Total Creatine Kinase Troponin T C-Reactive Protein NT-Pro-B Natriuret Pep Serum Total Protein Total Protein Albumin Cholesterol LDL Cholesterol Direct HDL Cholesterol PTH Intact Arterial Blood Glucose Urine WBC (Auto) Urine Creatinine Valproic Acid Heparin-induced Plt Ab Lymph Enumerat CD4/CD8 Absolute CD3 Count Absolute CD4 Count % CD8 Cells Absolute CD8 Count Absolute CD19 Count Coronavirus (PCR) HIV-1 RNA PCR copies/ml HIV-1 RNA (PCR) log 09/23/20 09/23/20 09/24/20 17:09 23:51 05:00 WBC 24.2 H RBC 3.23 L Hgb 10.0 L Hct 29.7 L MCV MCH MCHC RDW Plt Count 74 L Lymph % (Auto) Mineral % (Auto) Lymph # (Auto) Mineral # (Auto) Seg Neutrophils % Seg Neuts % (Manual) Lymphocytes % (Manual) Monocytes % (Manual) Nucleated RBC % Seg Neutrophils # Seg Neutrophils # Man Abs Lymphs (Manual) Lymphocytes # (Manual) PT INR APTT D-Dimer Heparin Anti-Xa Level ABG pH POC ABG pCO2 POC ABG pO2 ABG Oxyhemoglobin ABG Sodium ABG Potassium ABG Glucose Carboxyhemoglobin Sodium Potassium Chloride Carbon Dioxide BUN Creatinine Glucose POC Glucose 128 H 128 H Calcium Phosphorus Ferritin Total Bilirubin AST ALT Alkaline Phosphatase Lactate Dehydrogenase Total Creatine Kinase Troponin T C-Reactive Protein NT-Pro-B Natriuret Pep Serum Total Protein Total Protein Albumin Cholesterol LDL Cholesterol Direct HDL Cholesterol PTH Intact Arterial Blood Glucose Urine WBC (Auto) Urine Creatinine Valproic Acid Heparin-induced Plt Ab Lymph Enumerat CD4/CD8 Absolute CD3 Count Absolute CD4 Count % CD8 Cells Absolute CD8 Count Absolute CD19 Count Coronavirus (PCR) HIV-1 RNA PCR copies/ml HIV-1 RNA (PCR) log 09/24/20 09/24/20 09/24/20 05:00 05:00 05:00 WBC RBC Hgb Hct MCV MCH MCHC RDW Plt Count Lymph % (Auto) Mineral % (Auto) Lymph # (Auto) Mineral # (Auto) Seg Neutrophils % Seg Neuts % (Manual) Lymphocytes % (Manual) Monocytes % (Manual) Nucleated RBC % Seg Neutrophils # Seg Neutrophils # Man Abs Lymphs (Manual) Lymphocytes # (Manual) PT INR APTT D-Dimer 1772.86 H Heparin Anti-Xa Level ABG pH POC ABG pCO2 POC ABG pO2 ABG Oxyhemoglobin ABG Sodium ABG Potassium ABG Glucose Carboxyhemoglobin Sodium Potassium Chloride 107.1 H Carbon Dioxide BUN 90 H Creatinine 3.1 H Glucose 118 H POC Glucose Calcium Phosphorus Ferritin 1190.0 H Total Bilirubin AST ALT Alkaline Phosphatase Lactate Dehydrogenase 276 H Total Creatine Kinase Troponin T C-Reactive Protein 4.20 H NT-Pro-B Natriuret Pep Serum Total Protein Total Protein Albumin Cholesterol LDL Cholesterol Direct HDL Cholesterol PTH Intact Arterial Blood Glucose Urine WBC (Auto) Urine Creatinine Valproic Acid Heparin-induced Plt Ab Lymph Enumerat CD4/CD8 Absolute CD3 Count Absolute CD4 Count % CD8 Cells Absolute CD8 Count Absolute CD19 Count Coronavirus (PCR) HIV-1 RNA PCR copies/ml HIV-1 RNA (PCR) log 09/24/20 09/24/20 09/24/20 05:12 11:25 12:09 WBC RBC Hgb Hct MCV MCH MCHC RDW Plt Count Lymph % (Auto) Mineral % (Auto) Lymph # (Auto) Mineral # (Auto) Seg Neutrophils % Seg Neuts % (Manual) Lymphocytes % (Manual) Monocytes % (Manual) Nucleated RBC % Seg Neutrophils # Seg Neutrophils # Man Abs Lymphs (Manual) Lymphocytes # (Manual) PT INR APTT D-Dimer Heparin Anti-Xa Level ABG pH POC ABG pCO2 POC ABG pO2 ABG Oxyhemoglobin ABG Sodium ABG Potassium ABG Glucose Carboxyhemoglobin Sodium Potassium Chloride Carbon Dioxide BUN Creatinine 3.1 H Glucose POC Glucose 114 H 110 H Calcium Phosphorus Ferritin Total Bilirubin AST ALT Alkaline Phosphatase Lactate Dehydrogenase Total Creatine Kinase Troponin T C-Reactive Protein NT-Pro-B Natriuret Pep Serum Total Protein Total Protein Albumin Cholesterol LDL Cholesterol Direct HDL Cholesterol PTH Intact Arterial Blood Glucose Urine WBC (Auto) Urine Creatinine Valproic Acid Heparin-induced Plt Ab Lymph Enumerat CD4/CD8 Absolute CD3 Count Absolute CD4 Count % CD8 Cells Absolute CD8 Count Absolute CD19 Count Coronavirus (PCR) HIV-1 RNA PCR copies/ml HIV-1 RNA (PCR) log 09/24/20 09/24/20 09/24/20 12:13 12:13 17:41 WBC 20.8 H RBC 3.04 L Hgb 9.5 L Hct 28.0 L MCV MCH MCHC RDW Plt Count 78 L Lymph % (Auto) Mineral % (Auto) Lymph # (Auto) Mineral # (Auto) Seg Neutrophils % Seg Neuts % (Manual) Lymphocytes % (Manual) Monocytes % (Manual) Nucleated RBC % Seg Neutrophils # Seg Neutrophils # Man Abs Lymphs (Manual) Lymphocytes # (Manual) PT 15.7 H INR 1.27 H APTT D-Dimer Heparin Anti-Xa Level ABG pH POC ABG pCO2 POC ABG pO2 ABG Oxyhemoglobin ABG Sodium ABG Potassium ABG Glucose Carboxyhemoglobin Sodium Potassium Chloride Carbon Dioxide BUN Creatinine Glucose POC Glucose 133 H Calcium Phosphorus Ferritin Total Bilirubin AST ALT Alkaline Phosphatase Lactate Dehydrogenase Total Creatine Kinase Troponin T C-Reactive Protein NT-Pro-B Natriuret Pep Serum Total Protein Total Protein Albumin Cholesterol LDL Cholesterol Direct HDL Cholesterol PTH Intact Arterial Blood Glucose Urine WBC (Auto) Urine Creatinine Valproic Acid Heparin-induced Plt Ab Lymph Enumerat CD4/CD8 Absolute CD3 Count Absolute CD4 Count % CD8 Cells Absolute CD8 Count Absolute CD19 Count Coronavirus (PCR) HIV-1 RNA PCR copies/ml HIV-1 RNA (PCR) log 09/24/20 09/25/20 09/25/20 23:34 06:40 06:40 WBC RBC Hgb Hct MCV MCH MCHC RDW Plt Count Lymph % (Auto) Mineral % (Auto) Lymph # (Auto) Mineral # (Auto) Seg Neutrophils % Seg Neuts % (Manual) Lymphocytes % (Manual) Monocytes % (Manual) Nucleated RBC % Seg Neutrophils # Seg Neutrophils # Man Abs Lymphs (Manual) Lymphocytes # (Manual) PT INR APTT D-Dimer Heparin Anti-Xa Level ABG pH POC ABG pCO2 POC ABG pO2 ABG Oxyhemoglobin ABG Sodium ABG Potassium ABG Glucose Carboxyhemoglobin Sodium Potassium Chloride 109.0 H Carbon Dioxide BUN 98 H Creatinine 3.0 H 3.0 H Glucose 111 H POC Glucose 113 H Calcium Phosphorus Ferritin Total Bilirubin AST ALT Alkaline Phosphatase Lactate Dehydrogenase Total Creatine Kinase Troponin T C-Reactive Protein NT-Pro-B Natriuret Pep Serum Total Protein Total Protein Albumin Cholesterol LDL Cholesterol Direct HDL Cholesterol PTH Intact Arterial Blood Glucose Urine WBC (Auto) Urine Creatinine Valproic Acid Heparin-induced Plt Ab Lymph Enumerat CD4/CD8 Absolute CD3 Count Absolute CD4 Count % CD8 Cells Absolute CD8 Count Absolute CD19 Count Coronavirus (PCR) HIV-1 RNA PCR copies/ml HIV-1 RNA (PCR) log 09/25/20 09/25/20 09/25/20 10:45 12:45 18:03 WBC 20.7 H RBC 3.33 L Hgb 10.2 L Hct 31.3 L MCV MCH MCHC RDW Plt Count 139 L Lymph % (Auto) Mineral % (Auto) Lymph # (Auto) Mineral # (Auto) Seg Neutrophils % Seg Neuts % (Manual) Lymphocytes % (Manual) Monocytes % (Manual) Nucleated RBC % Seg Neutrophils # Seg Neutrophils # Man Abs Lymphs (Manual) Lymphocytes # (Manual) PT INR APTT D-Dimer Heparin Anti-Xa Level ABG pH POC ABG pCO2 POC ABG pO2 ABG Oxyhemoglobin ABG Sodium ABG Potassium ABG Glucose Carboxyhemoglobin Sodium Potassium Chloride Carbon Dioxide BUN Creatinine Glucose POC Glucose 108 H 114 H Calcium Phosphorus Ferritin Total Bilirubin AST ALT Alkaline Phosphatase Lactate Dehydrogenase Total Creatine Kinase Troponin T C-Reactive Protein NT-Pro-B Natriuret Pep Serum Total Protein Total Protein Albumin Cholesterol LDL Cholesterol Direct HDL Cholesterol PTH Intact Arterial Blood Glucose Urine WBC (Auto) Urine Creatinine Valproic Acid Heparin-induced Plt Ab Lymph Enumerat CD4/CD8 Absolute CD3 Count Absolute CD4 Count % CD8 Cells Absolute CD8 Count Absolute CD19 Count Coronavirus (PCR) HIV-1 RNA PCR copies/ml HIV-1 RNA (PCR) log 09/25/20 09/26/20 09/26/20 23:29 05:00 07:06 WBC 17.0 H RBC 3.10 L Hgb 9.6 L Hct 28.8 L MCV MCH MCHC RDW Plt Count Lymph % (Auto) Mineral % (Auto) Lymph # (Auto) Mineral # (Auto) Seg Neutrophils % Seg Neuts % (Manual) Lymphocytes % (Manual) Monocytes % (Manual) Nucleated RBC % Seg Neutrophils # Seg Neutrophils # Man Abs Lymphs (Manual) Lymphocytes # (Manual) PT INR APTT D-Dimer Heparin Anti-Xa Level ABG pH POC ABG pCO2 POC ABG pO2 ABG Oxyhemoglobin ABG Sodium ABG Potassium ABG Glucose Carboxyhemoglobin Sodium Potassium Chloride Carbon Dioxide BUN Creatinine Glucose POC Glucose 111 H 115 H Calcium Phosphorus Ferritin Total Bilirubin AST ALT Alkaline Phosphatase Lactate Dehydrogenase Total Creatine Kinase Troponin T C-Reactive Protein NT-Pro-B Natriuret Pep Serum Total Protein Total Protein Albumin Cholesterol LDL Cholesterol Direct HDL Cholesterol PTH Intact Arterial Blood Glucose Urine WBC (Auto) Urine Creatinine Valproic Acid Heparin-induced Plt Ab Lymph Enumerat CD4/CD8 Absolute CD3 Count Absolute CD4 Count % CD8 Cells Absolute CD8 Count Absolute CD19 Count Coronavirus (PCR) HIV-1 RNA PCR copies/ml HIV-1 RNA (PCR) log 09/26/20 09/26/20 09/27/20 07:06 17:26 04:00 WBC RBC Hgb Hct MCV MCH MCHC RDW Plt Count Lymph % (Auto) Mineral % (Auto) Lymph # (Auto) Mineral # (Auto) Seg Neutrophils % Seg Neuts % (Manual) Lymphocytes % (Manual) Monocytes % (Manual) Nucleated RBC % Seg Neutrophils # Seg Neutrophils # Man Abs Lymphs (Manual) Lymphocytes # (Manual) PT INR APTT D-Dimer Heparin Anti-Xa Level ABG pH POC ABG pCO2 POC ABG pO2 ABG Oxyhemoglobin ABG Sodium ABG Potassium ABG Glucose Carboxyhemoglobin Sodium Potassium Chloride Carbon Dioxide BUN 69 H 67 H Creatinine 2.2 H 2.3 H Glucose 107 H 121 H POC Glucose 124 H Calcium Phosphorus Ferritin Total Bilirubin AST ALT Alkaline Phosphatase Lactate Dehydrogenase Total Creatine Kinase Troponin T C-Reactive Protein NT-Pro-B Natriuret Pep Serum Total Protein Total Protein Albumin Cholesterol LDL Cholesterol Direct HDL Cholesterol PTH Intact Arterial Blood Glucose Urine WBC (Auto) Urine Creatinine Valproic Acid Heparin-induced Plt Ab Lymph Enumerat CD4/CD8 Absolute CD3 Count Absolute CD4 Count % CD8 Cells Absolute CD8 Count Absolute CD19 Count Coronavirus (PCR) HIV-1 RNA PCR copies/ml HIV-1 RNA (PCR) log 09/27/20 09/27/20 09/27/20 04:00 05:00 17:11 WBC 14.6 H RBC 2.72 L Hgb 8.6 L Hct 25.8 L MCV 95 H MCH MCHC RDW Plt Count Lymph % (Auto) 4.3 L Mineral % (Auto) Lymph # (Auto) 0.6 L Mineral # (Auto) 0.9 H Seg Neutrophils % 89.6 H Seg Neuts % (Manual) Lymphocytes % (Manual) Monocytes % (Manual) Nucleated RBC % Seg Neutrophils # 13.1 H Seg Neutrophils # Man Abs Lymphs (Manual) Lymphocytes # (Manual) PT INR APTT D-Dimer Heparin Anti-Xa Level ABG pH POC ABG pCO2 POC ABG pO2 ABG Oxyhemoglobin ABG Sodium ABG Potassium ABG Glucose Carboxyhemoglobin Sodium Potassium Chloride Carbon Dioxide BUN Creatinine 2.4 H Glucose POC Glucose 132 H Calcium Phosphorus Ferritin Total Bilirubin AST ALT Alkaline Phosphatase Lactate Dehydrogenase Total Creatine Kinase Troponin T C-Reactive Protein NT-Pro-B Natriuret Pep Serum Total Protein Total Protein Albumin Cholesterol LDL Cholesterol Direct HDL Cholesterol PTH Intact Arterial Blood Glucose Urine WBC (Auto) Urine Creatinine Valproic Acid Heparin-induced Plt Ab Lymph Enumerat CD4/CD8 Absolute CD3 Count Absolute CD4 Count % CD8 Cells Absolute CD8 Count Absolute CD19 Count Coronavirus (PCR) HIV-1 RNA PCR copies/ml HIV-1 RNA (PCR) log 09/28/20 09/28/20 09/29/20 04:46 04:46 04:45 WBC 14.6 H RBC 2.66 L Hgb 8.4 L Hct 25.3 L MCV 95 H MCH MCHC RDW Plt Count Lymph % (Auto) Mineral % (Auto) Lymph # (Auto) Mineral # (Auto) Seg Neutrophils % Seg Neuts % (Manual) Lymphocytes % (Manual) Monocytes % (Manual) Nucleated RBC % Seg Neutrophils # Seg Neutrophils # Man Abs Lymphs (Manual) Lymphocytes # (Manual) PT INR APTT D-Dimer Heparin Anti-Xa Level ABG pH POC ABG pCO2 POC ABG pO2 ABG Oxyhemoglobin ABG Sodium ABG Potassium ABG Glucose Carboxyhemoglobin Sodium Potassium Chloride Carbon Dioxide BUN 71 H 63 H Creatinine 2.3 H 2.2 H Glucose 105 H POC Glucose Calcium Phosphorus Ferritin Total Bilirubin AST ALT Alkaline Phosphatase Lactate Dehydrogenase Total Creatine Kinase Troponin T C-Reactive Protein NT-Pro-B Natriuret Pep Serum Total Protein Total Protein Albumin Cholesterol LDL Cholesterol Direct HDL Cholesterol PTH Intact Arterial Blood Glucose Urine WBC (Auto) Urine Creatinine Valproic Acid Heparin-induced Plt Ab Lymph Enumerat CD4/CD8 Absolute CD3 Count Absolute CD4 Count % CD8 Cells Absolute CD8 Count Absolute CD19 Count Coronavirus (PCR) HIV-1 RNA PCR copies/ml HIV-1 RNA (PCR) log 09/29/20 09/29/20 09/29/20 04:45 05:43 17:50 WBC RBC 2.92 L Hgb 9.6 L Hct 28.1 L MCV 96 H MCH 33 H MCHC RDW Plt Count Lymph % (Auto) Mineral % (Auto) Lymph # (Auto) Mineral # (Auto) Seg Neutrophils % Seg Neuts % (Manual) Lymphocytes % (Manual) Monocytes % (Manual) Nucleated RBC % Seg Neutrophils # Seg Neutrophils # Man Abs Lymphs (Manual) Lymphocytes # (Manual) PT INR APTT D-Dimer Heparin Anti-Xa Level ABG pH POC ABG pCO2 POC ABG pO2 ABG Oxyhemoglobin ABG Sodium ABG Potassium ABG Glucose Carboxyhemoglobin Sodium Potassium Chloride Carbon Dioxide BUN Creatinine Glucose POC Glucose 69 L 132 H Calcium Phosphorus Ferritin Total Bilirubin AST ALT Alkaline Phosphatase Lactate Dehydrogenase Total Creatine Kinase Troponin T C-Reactive Protein NT-Pro-B Natriuret Pep Serum Total Protein Total Protein Albumin Cholesterol LDL Cholesterol Direct HDL Cholesterol PTH Intact Arterial Blood Glucose Urine WBC (Auto) Urine Creatinine Valproic Acid Heparin-induced Plt Ab Lymph Enumerat CD4/CD8 Absolute CD3 Count Absolute CD4 Count % CD8 Cells Absolute CD8 Count Absolute CD19 Count Coronavirus (PCR) HIV-1 RNA PCR copies/ml HIV-1 RNA (PCR) log 09/30/20 09/30/20 09/30/20 04:47 04:47 04:47 WBC RBC 2.47 L Hgb 8.1 L Hct 23.9 L MCV 97 H MCH 33 H MCHC RDW Plt Count Lymph % (Auto) Mineral % (Auto) Lymph # (Auto) Mineral # (Auto) Seg Neutrophils % Seg Neuts % (Manual) Lymphocytes % (Manual) Monocytes % (Manual) Nucleated RBC % Seg Neutrophils # Seg Neutrophils # Man Abs Lymphs (Manual) Lymphocytes # (Manual) PT INR APTT D-Dimer Heparin Anti-Xa Level ABG pH POC ABG pCO2 POC ABG pO2 ABG Oxyhemoglobin ABG Sodium ABG Potassium ABG Glucose Carboxyhemoglobin Sodium Potassium Chloride Carbon Dioxide 31 H BUN 63 H Creatinine 2.1 H Glucose POC Glucose Calcium Phosphorus Ferritin Total Bilirubin AST ALT Alkaline Phosphatase Lactate Dehydrogenase Total Creatine Kinase Troponin T C-Reactive Protein NT-Pro-B Natriuret Pep Serum Total Protein 5.5 L Total Protein 5.9 L Albumin 2.2 L 2.1 L Cholesterol LDL Cholesterol Direct HDL Cholesterol PTH Intact Arterial Blood Glucose Urine WBC (Auto) Urine Creatinine Valproic Acid Heparin-induced Plt Ab Lymph Enumerat CD4/CD8 Absolute CD3 Count Absolute CD4 Count % CD8 Cells Absolute CD8 Count Absolute CD19 Count Coronavirus (PCR) HIV-1 RNA PCR copies/ml HIV-1 RNA (PCR) log 10/01/20 10/01/20 10/02/20 07:16 08:30 05:10 WBC RBC Hgb Hct MCV MCH MCHC RDW Plt Count Lymph % (Auto) Mineral % (Auto) Lymph # (Auto) Mineral # (Auto) Seg Neutrophils % Seg Neuts % (Manual) Lymphocytes % (Manual) Monocytes % (Manual) Nucleated RBC % Seg Neutrophils # Seg Neutrophils # Man Abs Lymphs (Manual) Lymphocytes # (Manual) PT INR APTT D-Dimer Heparin Anti-Xa Level ABG pH POC ABG pCO2 POC ABG pO2 ABG Oxyhemoglobin ABG Sodium ABG Potassium ABG Glucose Carboxyhemoglobin Sodium Potassium Chloride Carbon Dioxide BUN 58 H 48 H Creatinine 2.2 H 2.0 H Glucose POC Glucose Calcium Phosphorus Ferritin Total Bilirubin AST ALT Alkaline Phosphatase Lactate Dehydrogenase Total Creatine Kinase Troponin T C-Reactive Protein NT-Pro-B Natriuret Pep Serum Total Protein Total Protein Albumin Cholesterol LDL Cholesterol Direct HDL Cholesterol PTH Intact Arterial Blood Glucose Urine WBC (Auto) Urine Creatinine Valproic Acid Heparin-induced Plt Ab Lymph Enumerat CD4/CD8 Absolute CD3 Count Absolute CD4 Count % CD8 Cells Absolute CD8 Count Absolute CD19 Count Coronavirus (PCR) Positive A HIV-1 RNA PCR copies/ml HIV-1 RNA (PCR) log 10/03/20 10/03/20 10/04/20 08:12 08:12 18:19 WBC RBC Hgb Hct MCV MCH MCHC RDW Plt Count Lymph % (Auto) Mineral % (Auto) Lymph # (Auto) Mineral # (Auto) Seg Neutrophils % Seg Neuts % (Manual) Lymphocytes % (Manual) Monocytes % (Manual) Nucleated RBC % Seg Neutrophils # Seg Neutrophils # Man Abs Lymphs (Manual) Lymphocytes # (Manual) PT INR APTT D-Dimer Heparin Anti-Xa Level ABG pH POC ABG pCO2 POC ABG pO2 ABG Oxyhemoglobin ABG Sodium ABG Potassium ABG Glucose Carboxyhemoglobin Sodium Potassium 5.4 H D Chloride Carbon Dioxide BUN 48 H 39 H Creatinine 2.2 H 2.7 H Glucose POC Glucose Calcium 8.0 L Phosphorus Ferritin Total Bilirubin AST ALT Alkaline Phosphatase Lactate Dehydrogenase Total Creatine Kinase Troponin T C-Reactive Protein NT-Pro-B Natriuret Pep Serum Total Protein Total Protein Albumin Cholesterol LDL Cholesterol Direct HDL Cholesterol PTH Intact Arterial Blood Glucose Urine WBC (Auto) Urine Creatinine Valproic Acid 17.8 L Heparin-induced Plt Ab Lymph Enumerat CD4/CD8 Absolute CD3 Count Absolute CD4 Count % CD8 Cells Absolute CD8 Count Absolute CD19 Count Coronavirus (PCR) HIV-1 RNA PCR copies/ml HIV-1 RNA (PCR) log 10/04/20 10/05/20 10/05/20 18:19 07:14 07:14 WBC RBC 2.44 L 2.36 L Hgb 8.0 L 7.8 L Hct 24.0 L 23.3 L MCV 98 H 99 H MCH 33 H 33 H MCHC RDW 15.6 H 16.0 H Plt Count Lymph % (Auto) Mineral % (Auto) Lymph # (Auto) Mineral # (Auto) Seg Neutrophils % Seg Neuts % (Manual) Lymphocytes % (Manual) Monocytes % (Manual) Nucleated RBC % Seg Neutrophils # Seg Neutrophils # Man Abs Lymphs (Manual) Lymphocytes # (Manual) PT INR APTT D-Dimer Heparin Anti-Xa Level ABG pH POC ABG pCO2 POC ABG pO2 ABG Oxyhemoglobin ABG Sodium ABG Potassium ABG Glucose Carboxyhemoglobin Sodium Potassium Chloride Carbon Dioxide BUN 36 H Creatinine 2.5 H Glucose POC Glucose Calcium Phosphorus Ferritin Total Bilirubin AST ALT Alkaline Phosphatase Lactate Dehydrogenase Total Creatine Kinase Troponin T C-Reactive Protein NT-Pro-B Natriuret Pep Serum Total Protein Total Protein Albumin Cholesterol LDL Cholesterol Direct HDL Cholesterol PTH Intact Arterial Blood Glucose Urine WBC (Auto) Urine Creatinine Valproic Acid Heparin-induced Plt Ab Lymph Enumerat CD4/CD8 Absolute CD3 Count Absolute CD4 Count % CD8 Cells Absolute CD8 Count Absolute CD19 Count Coronavirus (PCR) HIV-1 RNA PCR copies/ml HIV-1 RNA (PCR) log Allied health notes reviewed: nursing
--- NOTE | 2020-10-06 12:17 | Progress Note ---
Assessment and Plan 1. Acute kidney injury: Vasomotor LOLI in the setting of shock. ATN likely. Renal US negative for hydro. Multiple bladder scan negative. Patient required hemodialysis due to significant decline in the renal function. Hemodialysis: 09/20, 09/21, 09/25. Monitor renal function. Creatinine level is improving now. Renal prognosis is guarded. Avoid nephrotoxic agents. Meds dosage based on GFR. Monitor for STYLE ADVISOR needs. 2. FEN: Hyperkalemia, improved. Metabolic acidosis, improved, monitor. Monitor volume status and lytes. 3. Acute hypoxic respiratory failure: Covid test positive. Supplemental O2. 4. Acute CHF: Echocardiogram: EF 40-45%. CHF orderset / pathway. Monitor. 5. Atrial fibrillation with RVR: On Amio and Metoprolol. Followed by Cards. 6. Elevated troponin: Followed by Cards. 7. Coagulopathy: Trend. 8. Shock / Hypotension: Multifactorial, monitor. Off pressors. 9. Elevated Transaminases: Improved. 10. Metabolic encephalopathy: Monitor. 11. HIV. 12. Anemia, POA: Monitor. Subjective: Patient was not examined today. However the examination findings from other providers noted. The current and previous medical records are reviewed in detail as are laboratory and imaging data reviewed when appropriate. Medications being given are also reviewed. In addition the case has been discussed with the attending hospitalist and the nurse when needed. New renal recommendations as above. Subjective Date of service: 10/06/20 Principal diagnosis: Sepsis, AF with RVR Objective - Vital Signs Vital signs: Vital Signs - 12hr 10/06/20 10/06/20 10/06/20 04:34 09:55 10:00 Temperature 97.9 F Pulse Rate 107 H Respiratory 16 20 Rate Blood Pressure 96/64 109/63 Blood Pressure [Right] 10/06/20 10:10 Temperature Pulse Rate 107 H Respiratory 20 Rate Blood Pressure Blood Pressure 109/68 [Right] - Lab 10/05/20 07:14 10/06/20 08:04 Most recent lab results ABG pH 7.508 (7.320-7.450) H 09/17/20 10:28 ABG O2 Saturation 93.4 (0-100) 09/17/20 10:28 Calcium 8.8 mg/dL (8.4-10.2) 10/06/20 08:04 Phosphorus 2.90 mg/dL (2.5-4.5) 09/26/20 07:06 Magnesium 1.70 mg/dL (1.7-2.3) 09/26/20 07:06 Urine Creatinine 61.0 mg/dL (0.1-20.0) H 09/18/20 12:00 Urine Sodium 62 mmol/L 09/18/20 12:00 Medications & Allergies - Medications Allergies/Adverse Reactions: Allergies heparin Adverse Reaction (Verified 09/29/20 16:33) thrombocytopenia PF4 Home Medications: Home Medications Medication Instructions Recorded Confirmed Last Taken Type AtorvaSTATin [Lipitor] 20 mg PO QHS 09/18/20 09/18/20 Unknown History Dolutegravir [Tivicay] 50 mg PO DAILY 09/18/20 09/18/20 Unknown History Emtricitabine/Tenofov Alafenam 1 tab PO DAILY 09/18/20 09/18/20 Unknown History [Descovy 200-25 mg (Nf)] allopurinoL [Zyloprim] 300 mg PO QDAY 09/18/20 09/18/20 Unknown History Amiodarone [Cordarone 200 MG TAB] 200 mg PO DAILY #60 tablet 10/01/20 Unknown Rx Apixaban [Eliquis] 2.5 mg PO Q12HR #60 tablet 10/01/20 Unknown Rx Ascorbic Acid [Vitamin C] 500 mg PO BID #60 tablet 10/01/20 Unknown Rx Cholecalciferol Vit D3 [Vitamin D3 1,000 unit PO QDAY #30 tablet 10/01/20 Unknown Rx 1,000 UNIT TAB] Famotidine [Pepcid] 20 mg PO DAILY #30 tablet 10/01/20 Unknown Rx Midodrine [Proamatine] 5 mg PO TID@0800,1200,1600 #90 10/01/20 Unknown Rx tablet QUEtiapine [SEROquel] 25 mg PO BID #30 tablet 10/01/20 Unknown Rx Zinc Sulfate 220 mg PO QDAY #30 capsule 10/01/20 Unknown Rx carvediloL [Coreg] 3.125 mg PO BID #60 tablet 10/01/20 Unknown Rx haloperidoL [Haldol] 2 mg PO Q8H PRN #30 tablet 10/01/20 Unknown Rx Active Medications: Generic Name Dose Route Start Last Admin Trade Name Freq PRN Reason Stop Dose Admin Acetaminophen 650 mg 09/17/20 13:52 09/30/20 21:12 Acetaminophen 325 Mg Tab PO 650 mg Q4H PRN Administration Pain MILD(1-3)/Fever >100.5/ANGEL Albuterol 2.5 mg 09/17/20 13:52 09/17/20 20:47 Albuterol 2.5 Mg/3 Ml Nebu IH 2.5 mg Q4HRT PRN Administration Shortness Of Breath Amiodarone HCl 200 mg 10/01/20 22:00 10/06/20 09:52 Amiodarone 200 Mg Tab PO Not Given BID EDIE Lipase/Protease/Amylase 1 each 09/20/20 13:10 Lipase 10,500/Protease 25,000/Amylase 43,750 (Units) Dr Patrick FEEDTUBE PRN PRN For Clogged Feeding Tube Apixaban 5 mg 10/05/20 22:00 10/06/20 09:51 Apixaban 5 Mg Tab PO 5 mg Q12HR EDIE Administration Ascorbic Acid 500 mg 09/20/20 22:00 10/06/20 09:51 Ascorbic Acid 500 Mg Tab PO 500 mg BID EDIE Administration Cholecalciferol 1,000 unit 09/21/20 10:00 10/06/20 09:51 Cholecalciferol (Vit D3) 1000 Unit (25 Mcg) Tab PO 1,000 unit QDAY EDIE Administration Docusate Sodium 100 mg 10/05/20 11:00 10/06/20 09:50 Docusate Sodium 100 Mg/10 Ml Oral Liqd PO 100 mg BID EDIE Administration Emtricitabine 200 mg 09/30/20 11:00 10/06/20 10:52 Emtricitabine 200 Mg Cap PO 200 mg Q48H EDIE Administration Famotidine 20 mg 09/24/20 10:00 10/06/20 09:56 Famotidine 20 Mg Tab PO 20 mg DAILY EDIE Administration Haloperidol Lactate 5 mg 10/01/20 11:34 10/04/20 13:32 Haloperidol Lactate 5 Mg/1 Ml Inj IM 5 mg Q6H PRN Administration Agitation Heparin Sodium (Porcine) 3,000 unit 09/20/20 10:06 Heparin 10,000 Units/10 Ml Vial IV VIRGIL PRN hemodialysis Sodium Chloride 100 mls @ 999 mls/hr 09/20/20 10:06 Nacl 0.9% IV VIRGIL PRN Hypotension Metoprolol Tartrate 5 mg 09/19/20 19:06 09/24/20 10:59 Metoprolol Tartrate 5 Mg/5 Ml Inj IV 5 mg Q8HR PRN Administration HR > 135 Minute Metoprolol Tartrate 12.5 mg 10/05/20 14:00 10/06/20 09:55 Metoprolol Tartrate 25 Mg Tab PO 12.5 mg TID EDIE Administration Midodrine 5 mg 09/22/20 12:00 10/06/20 11:27 Midodrine 5 Mg Tab PO 5 mg TID@0800,1200,1600 EDIE Administration Ondansetron HCl 4 mg 09/17/20 13:52 Ondansetron 4 Mg/2 Ml Inj IV Q8H PRN Nausea And Vomiting Quetiapine Fumarate 12.5 mg 10/03/20 22:00 10/05/20 22:28 Quetiapine 25 Mg Tab PO 12.5 mg QHS EDIE Administration Quetiapine Fumarate 12.5 mg 10/04/20 10:00 10/06/20 09:55 Quetiapine 25 Mg Tab PO 12.5 mg QAM EDIE Administration Simple Syrup 15 ml 09/20/20 13:10 Simple Syrup 15 Ml FEEDTUBE PRN PRN Hypoglycemia Simple Syrup 30 ml 09/20/20 13:10 Simple Syrup 15 Ml FEEDTUBE PRN PRN Hypoglycemia Sodium Bicarbonate 325 mg 09/20/20 13:10 Sodium Bicarbonate 325 Mg Tab FEEDTUBE PRN PRN For Clogged Feeding Tube Sodium Chloride 10 ml 09/17/20 22:00 10/06/20 09:52 Sodium Chloride 0.9% 10 Ml Flush Syringe IV 10 ml BID EDIE Administration Sodium Chloride 10 ml 09/17/20 13:52 09/24/20 09:15 Sodium Chloride 0.9% 10 Ml Flush Syringe IV 10 ml PRN PRN Administration LINE FLUSH Tenofovir Disoproxil Fumarate 300 mg 09/30/20 11:00 10/06/20 10:52 Tenofovir 300 Mg Tab PO 300 mg Q48H EDIE Administration Valproic Acid 250 mg 10/03/20 22:00 10/06/20 09:50 Valproic Acid 250 Mg Cap PO 250 mg BID EDIE Administration Zinc Sulfate 220 mg 09/21/20 10:00 10/06/20 09:51 Zinc Sulfate 220 Mg Cap PO 220 mg QDAY EDIE Administration
[2020-10-06] MEDS ORDERED: POTASSIUM CHLORIDE ER 20 MEQ TAB PO NR (12:30)
[2020-10-07 07:35] LABS: Hematocrit 23.2 % (35.5-45.6); Hemoglobin 7.9 gm/dl (11.8-15.2); Mean Corpuscular HGB Conc 34 % (32-34); Mean Corpuscular Volume 98 fl (84-94); Platelet Count 203 K/mm3 (140-440); Red Blood Count 2.38 M/mm3 (3.65-5.03); Red Cell Distribution Width 15.4 % (13.2-15.2)
[2020-10-07 07:49] LABS: Calcium 8.4 mg/dL (8.4-10.2)
--- NOTE | 2020-10-07 08:20 | Progress Note ---
Assessment and Plan Assessment and plan: This is 70-year-old male with HIV, HTN, and atrial fibrillation (currently on therapeutic anticoagulation with Xarelto) admitted with atrial fibrillation with RVR, SIRs, metabolic acidosis, acute kidney injury, acute hypoxic respiratory failure, hypotension, and CHF Septic Shock Acute hypoxemic respiratory failure 2/2 to volume overload/chf exacerbation Acute systolic heart failure exacerbation Atrial fibrillation with RVR Acute on chronic kidney injury Hypotension Anemia Thrombocytopenia E coli bacteremia E. coli urinary tract infection NSTEMI Elevated Ddimer Leukocytosis HIV, asymptomatic HTN Coagulopathy Transaminitis -Cardiology, CCM, Nephrology, ID, general surgery, heme/onc consulted, appreciate recommendations -09/20 COVID-19 PCR positive -Droplet/isolation precautions -Dexamethasone 6 mg p.o. (09/20-09/30) -Vitamin D, vitamin C, zinc -Vasopressor support with levophed and vasopressin, midodrine -09/17 CXR shows borderline heart size, mild central pulmonary venous congestion -09/17 renal ultrasound shows no acute findings -09/18 echocardiogram shows left ventricle systolic function mildly decreased, LVEF of 40 to 45% with mild concentric left ventricle hypertrophy, trace MR, mild TR, trace FL -09/19 abdominal ultrasound shows large gallstone within the gallbladder, no pericholecystic fluid, gallbladder wall upper limits of normal measuring 3 mm -09/21 HIDA scan shows no evidence of acute cholecystitis -09/21 BLE Dopplar US no evidence for DVT -09/23 CT head shows no acute intracranial hemorrhage or parenchymal abnormality, mild diffuse brain atrophy with commensurate ventricular enlargement which is likely age appropriate, small frontal scalp lipoma measuring 9 mm in thickness, 4 cm in length, and 4 cm in width., Sinuses and mastoid air cells are clear. -09/17 proBNP [id number] -S/p IV Lasix twice daily -09/20 nephrology initiated the patient on dialysis -Pulmonary hygiene -Bipap qhs -09/25 CT abd/pelvis without contrast pending -PO amiodarone -HIV meds per ID -IV abx therapy -HIT pending -Trend CBC, BMP, LFTs DVT/GI prophylaxis: PPI, SCDs to bilateral lower extremities while in bed, no chemical anticoagulation at this time d/t thrombocytopenia Disposition: IMCU History Interval history: This is 70-year-old male with HIV, HTN, and atrial fibrillation (currently on therapeutic anticoagulation with Xarelto) presents the emergency department on 09/17 with complaints of shortness of breath over the past 3 days and on arrival of EMS patient was found to have a pulse oximetry of 85% on room air. He was placed on supplemental oxygenation. Of note patient was admitted on 09/15 with similar complaints and found to have A. fib with RVR, hyponatremia, hypomagnesemia and acute kidney injury and left AMA. He was admitted to the hospital service with atrial fibrillation with RVR, SIRs, metabolic acidosis, acute kidney injury, acute hypoxic respiratory failure, hypotension, and CHF . Cardiology, CCM and nephrology were consulted. 09/18/2020. Await echocardiogram to assess for diastolic versus systolic etiology. Patient with elevated BNP greater than 18,000. Patient apparently was admitted approximately 3 days ago but left AMA. Cardiology consulted for heart failure, A. fib with RVR and elevated troponin. Patient denies chest pain. Also, patient with elevated creatinine of 4.7 with creatinine 2.8 on recent admission. We do not have a previous creatinine as a baseline to compare. Nephrology consultation pending. Follow-up renal ultrasound. Patient with coagulopathy and INR 3.04. Unsure if patient was on anticoagulation for A. fib. 09/19/2020. Patient likely with vasomotor acute kidney injury in the setting of s hock. Follow-up urine studies and renal ultrasound. Creatinine continues to worsen. Nephrology following. Etiology of respiratory failure secondary to heart failure with Covid testing pending. Elevated troponin suggestive of NSTEMI. Continue diuresis with Lasix. Continue IV amiodarone for rate control of A. fib with RVR. Continue heparin. Follow-up echocardiogram. Cardiology following. 09/20/2020: This time my examination patient was on BiPAP therapy and now is on nasal cannula. Patient remains on amiodarone drip with heart rate in the 130s to 140s and vasopressor support with Levophed. Today nephrology will initiate hemodialysis given worsening renal function studies and has stopped diuresis with Lasix. ID resumed antiretroviral therapy and ordered a HIDA scan. Today the patient received a temporary Vas-Cath and is COVID-19 PCR resulted as positive. Patient will be started on vitamin C, vitamin D and zinc and dexamethasone given need for supplemental oxygenation. 09/21: Ecoli UTI and bacteremia and ID has changed him to meropenem, Patient received HD yesterday and patient remains on amiodarone drip. He is off the floor to obtain a HIDA scan. 09/22: HIDA scan did not show acute cholecystitis. Ecoli bacteremia is sensitive to ceftriaxone and ID changed his abx. Mentation is better. BP is liable. Remains on levophed and vasopressin. We started midodrine. HIT panel pending and hem/onc consulted. 09/23: Patient noted to have unequal pupils with left >right, STAT CT head ordered. Nephro will withhold hemodialysis and assess needs as kidney function has gotten better. Patient symptomatically follows commands and is on nasal cannula. Cardiology stopped his Eliquis due to persistent thrombocytopenia. 09/24: Patient remains confused, pupils still unequal. Started on eliquis 2.5 today and he will be transferred to IMCU. 09/25: Patient remains confused, had Bipap overnight, CT abd/pelvis ordered per ID recommendations given persistent leukocytosis. Cr remains unchanged but BUN in rising. Nephrology is on the case. 09/26/2020; patient was confused and on 3 L of oxygen. ID is following the patient and continue with antiretroviral medications, no OI prophylaxis needed. Patient is on IV Rocephin lasted 09/28 per ID recommendation for E. coli bacteremia. ID ordered CT abdomen and pelvis. We will follow the results. Patient is being followed by cardiology and they recommend to resume Eliquis with 2.5 mg p.o. twice daily, thrombocytopenia is improving. Patient is on amiodarone and metoprolol. Patient is being followed by nephrology and is on dialysis. Blood pressure was normal this morning. Patient was tachycardic in A. fib with RVR. CT head was normal. Prognosis is guarded. Continue IMCU care. 09/27: Continue IMCU care, still with unresolved Afib, will continue to adjust medications for better control. 09/28: Start Seroquel DUE TO THE AGITATION, Discussed with daughter, will work on getting Afib better controlled. Per daughter the confusion is new, although some improvement noted today. Patient will benefit from SNF 09/29: Seroquel started today as it was not started yesterday, await PT/OT, Continue to monitor mental status, will transfer to Tele. Anticipate discharge when bed available. 09/30: Discussed extensively with the daughter about her clinical condition, Seroquel discontinued as patient did not tolerate, still with low BP responded to Fluids. Hold BB and continue to monitor and redirect. Discussed with Nursing staff. 10/01: Patient seen and examined resting comfortably still with intermittent delirium. Blood pressure has improved although beta-ruddy was held midodrine was given. Will change to Coreg 3.125 with holding parameters on discharge. Per cardiology amiodarone changed to 200 mg daily. Neurology evaluation is still pending. I have initiated placement to a SNF facility and once approved patient can be discharged. Daughter has been updated on medical condition. For now on anticoagulation left in place although outpatient this may be discontinued due to patient's mental status if there is no improvement. 10/02: Neurology evaluated the patient for increased agitation and aggressive behavior and confusion. Exam suggestive of delirium stopped. Due to not tolerating Seroquel, now Geodon trial Haldol however recommended also valproic acid. No overnight issues reported. Continue awaiting SNF placement for continued rehab. Blood pressure has remained stable no further fever recorded. Monitor for any recurrence of the pain in the leg. 10/03: I have asked for a sitter a few days ago unfortunately not as available as a result restraints have been used and reassurances. Will decrease Seroquel to 12.5 twice daily as patient did not tolerate the 25 mg. Continue supportive care blood pressure meds held due to hypotension. Delirium still present delirium preventive methods including keeping the lights on through the night windows shades up discussed with nursing staff. Also discussed with neurologist. 10/04: 70-year-old male admitted to the hospital with hypoxic respiratory failure history of Covid. During hospitalization developed A. fib with RVR status metabolic acidosis and acute kidney injury. Has also been exhibiting some delirium was managed in the ICU and IMCU and subsequently is awaiting placement. He was seen by neurologist delirium of diagnosis secondary to metabolic issues. Seroquel was started initially at 25 mg p.o. twice daily but patient developed hypotension now better improved BP, Continue seroquel 12.5mg po BID seems to have good improvement in mental status. awaiting labs due to noted hyperkalemia yesterday. Repeat covud test for placement. 10/05/2020; patient is pending for placement. Repeat Covid test is negative. Blood pressure is within normal limit. Patient is confused. 10/06/2020; repeat Covid test is negative. Patient is confused. Patient last dialysis was on 09/25, renal function is stable, no need dialysis, nephrology is following. 10/07/2020; Covid test was done yesterday and was positive. Renal function is improving and nephrology is following at this time. Last dialysis was on 09/25. Patient is pending placement. Mental health consulted for confusion. History Interval history: Patient was seen and evaluated this morning Patient said he is feeling better Patient was on restraints, patient was on room air Hospitalist Physical - Physical exam Narrative exam: Patient was noting cardiopulmonary distress. The patient appeared well nourished and normally developed. Vital signs as documented. Head exam is unremarkable. No scleral icterus . Neck is without jugular venous distension, thyromegaly, or carotid bruits. Lungs are clear to auscultation. Cardiac exam reveals regular rate and Rhythm. Abdominal exam reveals normal bowel sounds, nontender, no organomegaly. Extremities are nonedematous and both femoral and pedal pulses are normal. [employer]: Confused. - Constitutional Vitals: Temp Pulse Resp BP Pulse Ox 98.3 F 114 H 18 97/73 100 10/07/20 05:08 10/07/20 05:08 10/07/20 05:08 10/07/20 05:08 10/07/20 05:08 General appearance: Present: no acute distress HEART Score - HEART Score Troponin: Troponin T < 0.010 ng/mL (0.00-0.029) 09/22/20 05:38 Results - Labs CBC & Chem 7: 10/07/20 06:45 10/07/20 06:45 Labs: Laboratory Last Values WBC 6.1 K/mm3 (4.5-11.0) 10/07/20 06:45 RBC 2.38 M/mm3 (3.65-5.03) L 10/07/20 06:45 Hgb 7.9 gm/dl (11.8-15.2) L 10/07/20 06:45 Hct 23.2 % (35.5-45.6) L 10/07/20 06:45 MCV 98 fl (84-94) H 10/07/20 06:45 MCH 33 pg (28-32) H 10/07/20 06:45 MCHC 34 % (32-34) 10/07/20 06:45 RDW 15.4 % (13.2-15.2) H 10/07/20 06:45 Plt Count 203 K/mm3 (140-440) 10/07/20 06:45 Lymph % (Auto) 4.3 % (13.4-35.0) L 09/27/20 04:00 [place] % (Auto) 6.0 % (0.0-7.3) 09/27/20 04:00 Eos % (Auto) 0.1 % (0.0-4.3) 09/27/20 04:00 Baso % (Auto) 0.0 % (0.0-1.8) 09/27/20 04:00 Lymph # (Auto) 0.6 K/mm3 (1.2-5.4) L 09/27/20 04:00 [place] # (Auto) 0.9 K/mm3 (0.0-0.8) H 09/27/20 04:00 Eos # (Auto) 0.0 K/mm3 (0.0-0.4) 09/27/20 04:00 Baso # (Auto) 0.0 K/mm3 (0.0-0.1) 09/27/20 04:00 Add Manual Diff Complete 09/23/20 04:36 Total Counted 100 09/23/20 04:36 Seg Neutrophils % 89.6 % (40.0-70.0) H 09/27/20 04:00 Seg Neuts % (Manual) 91.0 % (40.0-70.0) H 09/23/20 04:36 Band Neutrophils % 2.0 % 09/23/20 04:36 Lymphocytes % (Manual) 2.0 % (13.4-35.0) L 09/23/20 04:36 Monocytes % (Manual) 5.0 % (0.0-7.3) 09/23/20 04:36 Nucleated RBC % Not Reportable 09/23/20 04:36 Seg Neutrophils # 13.1 K/mm3 (1.8-7.7) H 09/27/20 04:00 Seg Neutrophils # Man 12.9 K/mm3 (1.8-7.7) H 09/23/20 04:36 Band Neutrophils # 0.3 K/mm3 09/23/20 04:36 Abs Lymphs (Manual) 223 cells/uL (850-3900) L 09/19/20 13:35 Lymphocytes # (Manual) 0.3 K/mm3 (1.2-5.4) L 09/23/20 04:36 Abs React Lymphs (Man) 0.0 K/mm3 09/23/20 04:36 Monocytes # (Manual) 0.7 K/mm3 (0.0-0.8) 09/23/20 04:36 Eosinophils # (Manual) 0.0 K/mm3 (0.0-0.4) 09/23/20 04:36 Basophils # (Manual) 0.0 K/mm3 (0.0-0.1) 09/23/20 04:36 Metamyelocytes # 0.0 K/mm3 09/23/20 04:36 Myelocytes # 0.0 K/mm3 09/23/20 04:36 Promyelocytes # 0.0 K/mm3 09/23/20 04:36 Blast Cells # 0.0 K/mm3 09/23/20 04:36 WBC Morphology Not Reportable 09/23/20 04:36 Hypersegmented Neuts Not Reportable 09/23/20 04:36 Hyposegmented Neuts Not Reportable 09/23/20 04:36 Hypogranular Neuts Not Reportable 09/23/20 04:36 Smudge Cells Not Reportable 09/23/20 04:36 Toxic Granulation Not Reportable 09/23/20 04:36 Toxic Vacuolation Not Reportable 09/23/20 04:36 Dohle Bodies Not Reportable 09/23/20 04:36 Pelger-Huet Anomaly Not Reportable 09/23/20 04:36 Vinh Rods Not Reportable 09/23/20 04:36 Platelet Estimate Consistent w auto 09/23/20 04:36 Clumped Platelets Not Reportable 09/23/20 04:36 Plt Clumps, EDTA Not Reportable 09/23/20 04:36 Large Platelets Not Reportable 09/23/20 04:36 Giant Platelets Not Reportable 09/23/20 04:36 Platelet Satelliting Not Reportable 09/23/20 04:36 Plt Morphology Comment Not Reportable 09/23/20 04:36 RBC Morphology Not Reportable 09/23/20 04:36 Dimorphic RBCs Not Reportable 09/23/20 04:36 Polychromasia Not Reportable 09/23/20 04:36 Hypochromasia Not Reportable 09/23/20 04:36 Poikilocytosis Not Reportable 09/23/20 04:36 Anisocytosis 1+ 09/23/20 04:36 Microcytosis Not Reportable 09/23/20 04:36 Macrocytosis Not Reportable 09/23/20 04:36 Spherocytes Not Reportable 09/23/20 04:36 Pappenheimer Bodies Not Reportable 09/23/20 04:36 Sickle Cells Not Reportable 09/23/20 04:36 Target Cells Few 09/23/20 04:36 Tear Drop Cells Not Reportable 09/23/20 04:36 Ovalocytes Not Reportable 09/23/20 04:36 Helmet Cells Not Reportable 09/23/20 04:36 L[place] Bodies Not Reportable 09/23/20 04:36 [place] Rings Not Reportable 09/23/20 04:36 [place] Cells Not Reportable 09/23/20 04:36 Bite Cells Not Reportable 09/23/20 04:36 Crenated Cell Not Reportable 09/23/20 04:36 Elliptocytes Not Reportable 09/23/20 04:36 Acanthocytes (Spur) Not Reportable 09/23/20 04:36 Rouleaux Not Reportable 09/23/20 04:36 Hemoglobin C Crystals Not Reportable 09/23/20 04:36 Schistocytes Not Reportable 09/23/20 04:36 Malaria parasites Not Reportable 09/23/20 04:36 Zachary Bodies Not Reportable 09/23/20 04:36 Hem Pathologist Commnt No 09/23/20 04:36 PT 15.7 Sec. (12.2-14.9) H 09/24/20 12:13 INR 1.27 (0.87-1.13) H 09/24/20 12:13 APTT 25.7 Sec. (24.2-36.6) 09/24/20 12:13 D-Dimer 1772.86 ng/mlDDU (0-234) H 09/24/20 05:00 Heparin Anti-Xa Level 0.10 U.I./ml (0.3-0.7) L 09/20/20 04:00 Heparin Anti-Xa, Unfract Negative (Negative) 09/22/20 15:12 ABG pH 7.508 (7.320-7.450) H 09/17/20 10:28 POC ABG pCO2 22.8 mmHg (32.0-48.0) L 09/17/20 10:28 POC ABG pO2 66.8 mmHg (83-108) L 09/17/20 10:28 POC ABG HCO3 17.7 09/17/20 10:28 ABG O2 Saturation 93.4 (0-100) 09/17/20 10:28 POC ABG Base Excess -3.5 09/17/20 10:28 ABG Hemoglobin 12.7 (12.0-17.5) 09/17/20 10:28 ABG Oxyhemoglobin 92.7 (94-98) L 09/17/20 10:28 ABG Methemoglobin 0.3 (0.0-1.5) 09/17/20 10:28 ABG Sodium 127.4 mmol/L (136.0-145.0) L 09/17/20 10:28 ABG Potassium 4.7 mmol/L (3.40-4.50) H 09/17/20 10:28 ABG Chloride 101.0 mmol/L (98-107) 09/17/20 10:28 ABG Glucose 121 mg/dL (65-95) H 09/17/20 10:28 Carboxyhemoglobin 0.4 (0.5-1.5) L 09/17/20 10:28 FiO2 % 21 09/17/20 10:28 Sodium 138 mmol/L (137-145) 10/07/20 06:45 Potassium 3.8 mmol/L (3.6-5.0) 10/07/20 06:45 Chloride 104.1 mmol/L (98-107) 10/07/20 06:45 Carbon Dioxide 26 mmol/L (22-30) 10/07/20 06:45 Anion Gap 12 mmol/L 10/07/20 06:45 BUN 28 mg/dL (9-20) H 10/07/20 06:45 Creatinine 2.2 mg/dL (0.8-1.3) H 10/07/20 06:45 Estimated GFR 36 ml/min 10/07/20 06:45 BUN/Creatinine Ratio 13 % 10/07/20 06:45 Glucose 80 mg/dL (75-100) 10/07/20 06:45 POC Glucose 72 mg/dL (70-105) 09/30/20 11:45 Lactic Acid 1.00 mmol/L (0.7-2.0) 09/20/20 17:10 Calcium 8.4 mg/dL (8.4-10.2) 10/07/20 06:45 Phosphorus 2.90 mg/dL (2.5-4.5) 09/26/20 07:06 Magnesium 1.70 mg/dL (1.7-2.3) 09/26/20 07:06 Ferritin 1190.0 ng/mL (30.0-300.0) H 09/24/20 05:00 Total Bilirubin 0.80 mg/dL (0.1-1.2) 09/30/20 04:47 AST 14 units/L (5-40) 09/30/20 04:47 ALT 21 units/L (7-56) 09/30/20 04:47 Alkaline Phosphatase 81 units/L (35-129) 09/30/20 04:47 Lactate Dehydrogenase 276 units/L (91-180) H 09/24/20 05:00 Total Creatine Kinase 20 units/L (55-170) L 09/19/20 03:30 Troponin T < 0.010 ng/mL (0.00-0.029) 09/22/20 05:38 C-Reactive Protein 4.20 mg/dL (0.00-1.30) H 09/24/20 05:00 NT-Pro-B Natriuret Pep 62651 pg/mL (0-900) H 09/17/20 10:47 Serum Total Protein 5.5 g/dL (6.1-8.1) L 09/30/20 04:47 Total Protein 5.9 g/dL (6.3-8.2) L 09/30/20 04:47 Albumin 2.1 g/dL (3.8-4.8) L 09/30/20 04:47 Albumin 2.2 g/dL (3.9-5) L 09/30/20 04:47 Albumin/Globulin Ratio 0.6 % 09/30/20 04:47 Fkrzp-1-Kvwzqppaz 0.3 g/dL (0.2-0.3) 09/30/20 04:47 Psuol-4-Fdrgzldxs 0.7 g/dL (0.5-0.9) 09/30/20 04:47 Beta Globulins 0.3 g/dL (0.2-0.5) 09/30/20 04:47 Gamma Globulins 1.7 g/dL (0.8-1.7) 09/30/20 04:47 Abnorm Protein Band 1 see below 09/30/20 04:47 PEP Interpretation see below 09/30/20 04:47 Triglycerides 137 mg/dL (2-149) 09/17/20 13:54 Cholesterol 48 mg/dL (50-199) L 09/17/20 13:54 LDL Cholesterol Direct 4 mg/dL (50-130) L 09/17/20 13:54 HDL Cholesterol 9 mg/dL (40-59) L 09/17/20 13:54 Cholesterol/HDL Ratio 5.33 % 09/17/20 13:54 Free PSA See scanned result 09/17/20 17:35 % Free PSA Calc See scanned result 09/17/20 17:35 Total PSA See scanned result 09/17/20 17:35 Serotonin Release Assay See scanned result 09/22/20 15:12 Procalcitonin 2.10 ng/mL (<0.15) 09/25/20 06:40 PTH Intact 161.4 pg/mL (15-65) H 09/19/20 03:30 Arterial Blood Glucose 121 mg/dL (65-95) H 09/17/20 10:28 Arterial Blood Ionized Calcium 5.0 mg/dL (4.6-5.3) 09/17/20 10:28 Urine Color Yellow (Yellow) 09/18/20 12:00 Urine Turbidity Cloudy (Clear) 09/18/20 12:00 Urine pH 5.0 (5.0-7.0) 09/18/20 12:00 Ur Specific [place] 1.009 (1.003-1.030) 09/18/20 12:00 Urine Protein 30 mg/dl mg/dL (Negative) 09/18/20 12:00 Urine Glucose (UA) Neg mg/dL (Negative) 09/18/20 12:00 Urine Ketones Neg mg/dL (Negative) 09/18/20 12:00 Urine Blood Sm (Negative) 09/18/20 12:00 Urine Nitrite Neg (Negative) 09/18/20 12:00 Urine Bilirubin Neg (Negative) 09/18/20 12:00 Urine Urobilinogen < 2.0 mg/dL (<2.0) 09/18/20 12:00 Ur Leukocyte Esterase Mod (Negative) 09/18/20 12:00 Urine WBC (Auto) 71.0 /HPF (0.0-6.0) H 09/18/20 12:00 Urine RBC (Auto) 2.0 /HPF (0.0-6.0) 09/18/20 12:00 U Epithel Cells (Auto) 1.0 /HPF (0-13.0) 09/18/20 12:00 Urine Bacteria (Auto) 4+ /HPF (Negative) 09/18/20 12:00 Urine WBC Clumps 2+ /HPF 09/18/20 12:00 Hyaline Casts 3 /LPF 09/18/20 12:00 Granular Casts 3 /LPF 09/18/20 12:00 Urine Mucus Few /HPF 09/18/20 12:00 Urine Eosinophils None seen (None Seen) 09/19/20 03:15 Urine Creatinine 61.0 mg/dL (0.1-20.0) H 09/18/20 12:00 Urine Sodium 62 mmol/L 09/18/20 12:00 Random Vancomycin 12.7 ug/mL (0-40.0) 09/19/20 03:30 Valproic Acid 17.8 ug/mL (50-100) L 10/03/20 08:12 Heparin-induced Plt Ab Weak positive (Negative) H 09/22/20 15:12 UF Heparin High Dose 0 % Release 09/22/20 15:12 CORAZON UFH Low Dose 0.1 0 % Release 09/22/20 15:12 [place]ON UFH Low Dose 0.5 0 % Release 09/22/20 15:12 Lymph Enumerat CD4/CD8 0.70 (0.86-5.00) L 09/19/20 13:35 % CD3 Cells 79 % (57-85) 09/19/20 13:35 Absolute CD3 Count 175 cells/uL (840-3060) L 09/19/20 13:35 % CD4 Cells 31 % (30-61) 09/19/20 13:35 Absolute CD4 Count 70 cells/uL (490-1740) L 09/19/20 13:35 % CD8 Cells 45 % (12-42) H 09/19/20 13:35 Absolute CD8 Count 101 cells/uL (180-1170) L 09/19/20 13:35 % CD19 Cells 12 % (6-29) 09/19/20 13:35 Absolute CD19 Count 26 cells/uL (110-660) L 09/19/20 13:35 Coronavirus (PCR) Positive (Negative) A 10/06/20 Unknown Hepatitis A IgM Ab Non-reactive (NonReactive) 09/20/20 17:10 Hep Bs Antigen Non-reactive (Negative) 09/20/20 17:10 Hep B Core IgM Ab Non-reactive (NonReactive) 09/20/20 17:10 Hepatitis C Antibody Non-reactive (NonReactive) 09/20/20 17:10 HIV-1 RNA PCR copies/ml 67 Copies/mL H 09/19/20 13:35 HIV-1 RNA (PCR) log 1.83 Log cps/mL H 09/19/20 13:35 Gardner/IV: Voiding Method Indwelling Catheter Active Medications - Current Medications Current Medications: Generic Name Dose Route Start Last Admin Trade Name Freq PRN Reason Stop Dose Admin Acetaminophen 650 mg 09/17/20 13:52 09/30/20 21:12 Acetaminophen 325 Mg Tab PO 650 mg Q4H PRN Administration Pain MILD(1-3)/Fever >100.5/ANGEL Albuterol 2.5 mg 09/17/20 13:52 09/17/20 20:47 Albuterol 2.5 Mg/3 Ml Nebu IH 2.5 mg Q4HRT PRN Administration Shortness Of Breath Amiodarone HCl 200 mg 10/01/20 22:00 10/06/20 21:00 Amiodarone 200 Mg Tab PO 200 mg BID EDIE Administration Lipase/Protease/Amylase 1 each 09/20/20 13:10 Lipase 10,500/Protease 25,000/Amylase 43,750 (Units) Dr Patrick FEEDTUBE PRN PRN For Clogged Feeding Tube Apixaban 5 mg 10/05/20 22:00 10/06/20 20:59 Apixaban 5 Mg Tab PO 5 mg Q12HR [facility] Administration Ascorbic Acid 500 mg 09/20/20 22:00 10/06/20 20:59 Ascorbic Acid 500 Mg Tab PO 500 mg BID [facility] Administration Cholecalciferol 1,000 unit 09/21/20 10:00 10/06/20 09:51 Cholecalciferol (Vit D3) 1000 Unit (25 Mcg) Tab PO 1,000 unit QDAY [facility] Administration Docusate Sodium 100 mg 10/05/20 11:00 10/06/20 21:12 Docusate Sodium 100 Mg/10 Ml Oral Liqd PO 100 mg BID [facility] Administration Emtricitabine 200 mg 09/30/20 11:00 10/06/20 10:52 Emtricitabine 200 Mg Cap PO 200 mg Q48H [facility] Administration Famotidine 20 mg 09/24/20 10:00 10/06/20 09:56 Famotidine 20 Mg Tab PO 20 mg DAILY [facility] Administration Haloperidol Lactate 5 mg 10/01/20 11:34 10/04/20 13:32 Haloperidol Lactate 5 Mg/1 Ml Inj IM 5 mg Q6H PRN Administration Agitation Heparin Sodium (Porcine) 3,000 unit 09/20/20 10:06 Heparin 10,000 Units/10 Ml Vial IV VIRGIL PRN hemodialysis Sodium Chloride 100 mls @ 999 mls/hr 09/20/20 10:06 Nacl 0.9% IV VIRGIL PRN Hypotension Metoprolol Tartrate 5 mg 09/19/20 19:06 09/24/20 10:59 Metoprolol Tartrate 5 Mg/5 Ml Inj IV 5 mg Q8HR PRN Administration HR > 135 Minute Metoprolol Tartrate 12.5 mg 10/05/20 14:00 10/06/20 21:00 Metoprolol Tartrate 25 Mg Tab PO 12.5 mg TID [facility] Administration Midodrine 10 mg 10/07/20 08:00 Midodrine 5 Mg Tab PO TID@0800,1200,1600 [facility] Ondansetron HCl 4 mg 09/17/20 13:52 Ondansetron 4 Mg/2 Ml Inj IV Q8H PRN Nausea And Vomiting Quetiapine Fumarate 12.5 mg 10/03/20 22:00 10/06/20 20:59 Quetiapine 25 Mg Tab PO 12.5 mg QHS [facility] Administration Quetiapine Fumarate 12.5 mg 10/04/20 10:00 10/06/20 09:55 Quetiapine 25 Mg Tab PO 12.5 mg QAM EDIE Administration Simple Syrup 15 ml 09/20/20 13:10 Simple Syrup 15 Ml FEEDTUBE PRN PRN Hypoglycemia Simple Syrup 30 ml 09/20/20 13:10 Simple Syrup 15 Ml FEEDTUBE PRN PRN Hypoglycemia Sodium Bicarbonate 325 mg 09/20/20 13:10 Sodium Bicarbonate 325 Mg Tab FEEDTUBE PRN PRN For Clogged Feeding Tube Sodium Chloride 10 ml 09/17/20 22:00 10/06/20 21:12 Sodium Chloride 0.9% 10 Ml Flush Syringe IV 10 ml BID EDIE Administration Sodium Chloride 10 ml 09/17/20 13:52 09/24/20 09:15 Sodium Chloride 0.9% 10 Ml Flush Syringe IV 10 ml PRN PRN Administration LINE FLUSH Tenofovir Disoproxil Fumarate 300 mg 09/30/20 11:00 10/06/20 10:52 Tenofovir 300 Mg Tab PO 300 mg Q48H EDIE Administration Valproic Acid 250 mg 10/03/20 22:00 10/06/20 21:13 Valproic Acid 250 Mg Cap PO 250 mg BID EDIE Administration Zinc Sulfate 220 mg 09/21/20 10:00 10/06/20 09:51 Zinc Sulfate 220 Mg Cap PO 220 mg QDAY EDIE Administration Nutrition/Malnutrition Assess - Dietary Evaluation Nutrition/Malnutrition Findings: Nutrition Notes Start: 09/18/20 11:30 Freq: Status: Active Protocol: Document 10/06/20 11:22 AL (Rec: 10/06/20 11:34 AL [id number]) Co-Sign 10/06/20 11:22 LP Nutrition Notes Initial or Follow up Reassessment Current Diagnosis Acute Kidney Injury,Sepsis, Hypertension,Heart Failure, Respiratory Failure Other Pertinent Diagnosis AMS, UTI, afib with RVR, HIV ( +) Current Diet Pureed Renal Labs/Tests BUN 36 Cr 2.5 Pertinent Medications Colace Height 6 ft 1 in Weight 88.6 kg [place] Body Weight (kg) 83.63 BMI 25.7 Weight Status Appropriate Subjective/Other Information F/U for intakes, weight, and need for ONS. Pt still refusing meals, per RN and tolerated 25% of breakfast Percent of energy/protein needs met: 22%/26% Burn Absent Trauma Absent GI Symptoms Constipation Current % PO Negligible Minimum of two criteria No Reduced [employer] Strength Measurably Reduced (severe) #2 Nutrition Diagnosis Inadequate oral intake As Evidenced by Signs and Symptoms pt refusing meals and met 22%/ 26% of energy/protein needs PO . Diagnosis Progress(for reassessment Worsened documentation) Is patient on ventilator? No Is Patient Ambulatory and/or Out of Bed No REE-([facility]-confined to bed) [phone] Calculation Used for Recommendations [facility] Additional Notes Pro needs: 73 - 88g (1 - 1.2 g /kg 73kg) Fluid needs 1-1.5L/day Nutrition Intervention Change Diet Order: Continue pureed renal diet Add Supplement/Snack (indicate name/kcal [place] BID /protein ) Provides kCal: 850 Provides Protein (gm) 38 Goal #1 Meet at least 75% of estimated kcal and protein needs via PO Goal #2 Weight maintenance/weight gain Anticipated Discharge Needs: Pureed Renal Diet Follow-Up By: 10/08/20 Additional Comments F/U for stable intakes and ONS tolerance.
--- NOTE | 2020-10-07 09:02 | Progress Note ---
Assessment and Plan * A. fib with RVR * Telemetry reviewed: A. fib 110-120s. No events * Continue rate control regimen: Amiodarone 200 mg p.o. twice daily, met oprolol 12.5 mg p.o. 3 times daily, Midodrine 10mg TID. * Patient is anticoagulated with Eliquis 5 mg twice daily * NSTEMI * Repeat troponins are negative x2. * Echocardiogram reviewed (09/18/2020): LVEF is 40 to 45%. LVSF is mildly decreased. Mild concentric LVH. RVSF is mildly reduced. No valvular abnormalities. * LOLI with acute tubular necrosis * No GEMA/ARB in setting of LOLI. Avoid nephrotoxic agents. Nephrology is following. * DVT prophylaxis * Currently on Eliquis Patient currently stable cardiac status. Patient may discharge to [facility] facility from cardiac standpoint. Will follow on as-needed basis. Patient should follow-up with Dr Mayo in our [place] office on 10/22/2020 at 10:45 AM. #[id number] This patient was seen in conjunction with Dr Mayo who agrees with this assessment and plan of care - Patient Problems (1) AMS (altered mental status) Current Visit: Yes Status: Acute Qualifiers: Altered mental status type: somnolence Qualified Code(s): R40.0 - Somnolence (2) Acute hypoxemic respiratory failure Current Visit: Yes Status: Acute (3) Acute kidney injury (LOLI) with acute tubular necrosis (ATN) Current Visit: Yes Status: Acute (4) Atrial fibrillation with RVR Current Visit: Yes Status: Acute (5) NSTEMI (non-ST elevated myocardial infarction) Current Visit: Yes Status: Acute (6) Metabolic acidosis Current Visit: No Status: Acute (7) Systemic inflammatory response syndrome Current Visit: No Status: Acute Subjective Date of service: 10/07/20 Principal diagnosis: Sepsis, AF with RVR Interval history: Patient resting comfortably in bed. No shortness of breath or chest pain overnight. Telemetry reviewed: Atrial fib 110-120s. No events Objective Last Vital Signs Temp 98.3 F 10/07/20 05:08 Pulse 114 H 10/07/20 05:08 Resp 18 10/07/20 05:08 BP 104/80 10/07/20 08:43 Pulse Ox 100 10/07/20 05:08 - Physical Examination General: No Apparent Distress HEENT: Positive: PERRL, Normocephaly, Mucus Membranes Moist Neck: Positive: neck supple. Negative: JVD/HJR Cardiac: Positive: irregularly irregular, S1/S2 Lungs: Positive: Normal Exam, Normal Breath Sounds Neuro: Positive: Grossly Intact Abdomen: Positive: Soft Skin: Negative: Rash Musculoskeletal: No Fluid Collection Extremities: Present: upper extr. pulses, lower extr. pulses. Absent: edema - Labs and Meds CBC 10/07/20 Range/Units 06:45 WBC 6.1 (4.5-11.0) K/mm3 RBC 2.38 L (3.65-5.03) M/mm3 Hgb 7.9 L (11.8-15.2) gm/dl Hct 23.2 L (35.5-45.6) % Plt Count 203 (140-440) K/mm3 Comprehensive Metabolic Panel 10/07/20 Range/Units 06:45 Sodium 138 (137-145) mmol/L Potassium 3.8 (3.6-5.0) mmol/L Chloride 104.1 (98-107) mmol/L Carbon Dioxide 26 (22-30) mmol/L BUN 28 H (9-20) mg/dL Creatinine 2.2 H (0.8-1.3) mg/dL Glucose 80 (75-100) mg/dL Calcium 8.4 (8.4-10.2) mg/dL - Imaging and Cardiology EKG: report reviewed, image reviewed Echo: report reviewed (09/18/2020 - EF 40-45%, mild concentric LVH, RV sys fxn mildly reduced, no significant valvular abnormality) - Telemetry EKG Rhythm: Atrial Fibrillation Myocardial infarction: septal IL (old age or ind, anterior IL (old age or i - Allied health notes Allied health notes reviewed: nursing
[2020-10-07] MEDS: METOPROLOL TARTRATE 25 MG TAB PO SCH ×3 (09:10→22:27)
--- NOTE | 2020-10-07 09:36 | Progress Note ---
Assessment and Plan 70 YO Male with HIV, HTN, Atrial Fib currently of therapeutic anticoagulation with Xarelto presents to ED for evaluation. Patient reports "I just can't breathe". Patient states that he has experienced shortness of breath over the past 3 days with persistently worsening symptoms over the same timeframe. EMS notified and upon arrival the patient was found to be in distress with a pulse oximetry of 85% on room air. The patient was placed on supplemental oxygen and subsequently transported to [facility] for further care and evaluation of the aforementioned symptoms. The patient was admitted to this hospital 2 days ago, 09/15, for similar complaints and was found to have A. fib with RVR, hyponatremia, hypomagnesemia and acute kidney injury. Shortly after the patient was admitted he left AMA. The patient was seen and evaluated in the emergency department. All lab and imaging studies reviewed. The patient was also found to have a pulse oximetry of 86% on room air which is consistent with acute hypoxemic respiratory failure. The patient was found to have atrial fibrillation with rapid ventricular response, metabolic acidosis, acute kidney injury, as well as symptoms consistent with acute CHF decompensation. The patient was found to be hypotensive with a blood pressure of 78/43 which resulted in a MAP less than 65. Patient admitted to [facility] due to increased risk of cardiopulmonary decompensation. Patient treated with antiarrhythmic therapy in the emergency department, and initiated on CHF protocol. Cardiology and Nep hrology and pulmonary and critical care consulted. Patient awake.and patient presently resting on room air. O2 saturation running 97%. No acute respiratory distress at rest. Patient afebrile, with no leukocytosis. Patient's coronavirus test was positive. Patient's inflammatory markers: D-dimer: 1772.86, Ferritin: 1,190, Lactic: 1.00, C-reactive protein: 4.20, NT Pro-BNP: 18,204, Troponin < 0.01, CPK: 20, LDH: 276 Medications include apixaban, albuterol, famotidine, tenofovir. Chest x-ray done on 09/20/20 showed no acute pulmonary or pleural findings. No pneumothorax. - Patient Problems (1) Acute hypoxemic respiratory failure Current Visit: Yes Status: Acute Plan to address problem: Patient resting on room air. O2 saturation running 97%. No acute respiratory distress at rest. Medications include albuterol. (2) CHF (congestive heart failure) Current Visit: Yes Status: Acute Qualifiers: Heart failure type: systolic Heart failure chronicity: acute Qualified Code(s): I50.21 - Acute systolic (congestive) heart failure Plan to address problem: Management as per cardiology (3) LOLI (acute kidney injury) Current Visit: Yes Status: Acute Plan to address problem: Management as per nephrology. (4) AMS (altered mental status) Current Visit: Yes Status: Acute Qualifiers: Altered mental status type: somnolence Qualified Code(s): R40.0 - Somnolence Plan to address problem: Management as per primary team. (5) Atrial fibrillation with RVR Current Visit: Yes Status: Acute Plan to address problem: Management as cardiology. Patient is on Apixaban (6) Coronavirus infection Current Visit: Yes Status: Acute Plan to address problem: Patients [place] virus PCR is positive. Management as per ID. (7) HIV (human immunodeficiency virus infection) Current Visit: Yes Status: Chronic Plan to address problem: Management as per ID. Subjective Date of service: 10/06/20 Principal diagnosis: Sepsis, AF with RVR Interval history: 70 YO Male with HIV, HTN, Atrial Fib currently of therapeutic anticoagulation with Xarelto presents to ED for evaluation. Patient reports "I just can't breathe". Patient states that he has experienced shortness of breath over the past 3 days with persistently worsening symptoms over the same timeframe. EMS notified and upon arrival the patient was found to be in distress with a pulse oximetry of 85% on room air. The patient was placed on supplemental oxygen and subsequently transported to [facility] for further care and evaluation of the af orementioned symptoms. The patient was admitted to this hospital 2 days ago, 09/15, for similar complaints and was found to have A. fib with RVR, hyponatremia, hypomagnesemia and acute kidney injury. Shortly after the patient was admitted he left AMA. The patient was seen and evaluated in the emergency department. All lab and imaging studies reviewed. The patient was also found to have a pulse oximetry of 86% on room air which is consistent with acute hypoxemic respiratory failure. The patient was found to have atrial fibrillation with rapid ventricular response, metabolic acidosis, acute kidney injury, as well as symptoms consistent with acute CHF decompensation. The patient was found to be hypotensive with a blood pressure of 78/43 which resulted in a MAP less than 65. Patient admitted to [facility] due to increased risk of cardiopulmonary decompensation. Patient treated with antiarrhythmic therapy in the emergency department, and initiated on CHF protocol. Cardiology and Nephrology and pulmonary and critical care consulted. Patient awake.and patient presently resting on room air. O2 saturation running 97%. No acute respiratory distress at rest. Patient afebrile, with no leukocytosis. Patient's coronavirus test was positive. Patient's inflammatory markers: D-dimer: 1772.86, Ferritin: 1,190, Lactic: 1.00, C-reactive protein: 4.20, NT Pro-BNP: 18,204, Troponin < 0.01, CPK: 20, LDH: 276 Medications include apixaban, albuterol, famotidine, tenofovir. Chest x-ray done on 09/20/20 showed no acute pulmonary or pleural findings. No pneumothorax. Objective Vital Signs - 12hr 10/06/20 10/06/20 10/06/20 04:34 09:55 10:00 Temperature 97.9 F Pulse Rate 107 H Respiratory 16 20 Rate Blood Pressure 96/64 109/63 Blood Pressure [Right] 10/06/20 10:10 Temperature Pulse Rate 107 H Respiratory 20 Rate Blood Pressure Blood Pressure 109/68 [Right] Constitutional: no acute distress, alert, other (elderly male without increased respiratory effort at rest) Eyes: non-icteric ENT: oropharynx moist Neck: supple, no lymphadenopathy, no JVD Effort: mildly labored Ascultation: Bilateral: rhonchi, other (right SCVL Trialysis catheter) Percussion: Bilateral: not dull Cardiovascular: irregular rhythm Gastrointestinal: normoactive bowel sounds, soft, non-tender, non-distended Integumentary: normal Extremities: no cyanosis, no edema, pulses normal, no ischemia or petechiae Neurologic: non-focal exam (grossly), pupils equal and round, CN II-XII normal, motor strength normal and, other (mild delirium) Psychiatric: other (mild delirium) CBC and BMP: 10/07/20 06:45 10/07/20 06:45 ABG, PT/INR, D-dimer: ABG ABG pH 7.508 (7.320-7.450) H 09/17/20 10:28 POC ABG pCO2 22.8 mmHg (32.0-48.0) L 09/17/20 10:28 POC ABG pO2 66.8 mmHg (83-108) L 09/17/20 10:28 POC ABG HCO3 17.7 09/17/20 10:28 ABG O2 Saturation 93.4 (0-100) 09/17/20 10:28 PT/INR, D-dimer PT 15.7 Sec. (12.2-14.9) H 09/24/20 12:13 INR 1.27 (0.87-1.13) H 09/24/20 12:13 D-Dimer 1772.86 ng/mlDDU (0-234) H 09/24/20 05:00 Abnormal lab findings: Abnormal Labs 09/17/20 09/17/20 09/17/20 10:28 10:47 10:47 WBC 11.1 H RBC 3.44 L Hgb 11.2 L Hct 32.8 L MCV 95 H MCH MCHC RDW Plt Count Lymph % (Auto) [place] % (Auto) Lymph # (Auto) [place] # (Auto) Seg Neutrophils % Seg Neuts % (Manual) Lymphocytes % (Manual) 4.0 L Monocytes % (Manual) Nucleated RBC % Seg Neutrophils # Seg Neutrophils # Man 10.7 H Abs Lymphs (Manual) Lymphocytes # (Manual) 0.4 L PT 32.9 H INR 3.16 H APTT 51.1 H D-Dimer Heparin Anti-Xa Level ABG pH 7.508 H POC ABG pCO2 22.8 L POC ABG pO2 66.8 L ABG Oxyhemoglobin 92.7 L ABG Sodium 127.4 L ABG Potassium 4.7 H ABG Glucose 121 H Carboxyhemoglobin 0.4 L Sodium Potassium Chloride Carbon Dioxide BUN Creatinine Glucose POC Glucose Calcium Phosphorus Ferritin Total Bilirubin AST ALT Alkaline Phosphatase Lactate Dehydrogenase Total Creatine Kinase Troponin T C-Reactive Protein NT-Pro-B Natriuret Pep Serum Total Protein Total Protein Albumin Cholesterol LDL Cholesterol Direct HDL Cholesterol PTH Intact Arterial Blood Glucose 121 H Urine WBC (Auto) Urine Creatinine Valproic Acid Heparin-induced Plt Ab Lymph Enumerat CD4/CD8 Absolute CD3 Count Absolute CD4 Count % CD8 Cells Absolute CD8 Count Absolute CD19 Count Coronavirus (PCR) HIV-1 RNA PCR copies/ml HIV-1 RNA (PCR) log 09/17/20 09/17/20 09/17/20 10:47 10:47 13:54 WBC RBC Hgb Hct MCV MCH MCHC RDW Plt Count Lymph % (Auto) [place] % (Auto) Lymph # (Auto) [place] # (Auto) Seg Neutrophils % Seg Neuts % (Manual) Lymphocytes % (Manual) Monocytes % (Manual) Nucleated RBC % Seg Neutrophils # Seg Neutrophils # Man Abs Lymphs (Manual) Lymphocytes # (Manual) PT INR APTT D-Dimer Heparin Anti-Xa Level ABG pH POC ABG pCO2 POC ABG pO2 ABG Oxyhemoglobin ABG Sodium ABG Potassium ABG Glucose Carboxyhemoglobin Sodium 125 L Potassium Chloride 95.3 L Carbon Dioxide 17 L BUN 64 H Creatinine 4.6 H D Glucose 104 H POC Glucose Calcium Phosphorus Ferritin Total Bilirubin AST 69 H ALT Alkaline Phosphatase Lactate Dehydrogenase Total Creatine Kinase Troponin T 0.061 H D 0.058 H C-Reactive Protein NT-Pro-B Natriuret Pep 70649 H Serum Total Protein Total Protein Albumin 1.9 L Cholesterol 48 L LDL Cholesterol Direct 4 L HDL Cholesterol 9 L PTH Intact Arterial Blood Glucose Urine WBC (Auto) Urine Creatinine Valproic Acid Heparin-induced Plt Ab Lymph Enumerat CD4/CD8 Absolute CD3 Count Absolute CD4 Count % CD8 Cells Absolute CD8 Count Absolute CD19 Count Coronavirus (PCR) HIV-1 RNA PCR copies/ml HIV-1 RNA (PCR) log 09/17/20 09/17/20 09/17/20 16:36 17:35 17:35 WBC RBC 3.25 L Hgb 10.7 L Hct 31.1 L MCV 96 H MCH 33 H MCHC RDW Plt Count Lymph % (Auto) [place] % (Auto) Lymph # (Auto) [place] # (Auto) Seg Neutrophils % Seg Neuts % (Manual) Lymphocytes % (Manual) Monocytes % (Manual) Nucleated RBC % Seg Neutrophils # Seg Neutrophils # Man Abs Lymphs (Manual) Lymphocytes # (Manual) PT 31.9 H INR 3.04 H APTT 50.9 H D-Dimer Heparin Anti-Xa Level ABG pH POC ABG pCO2 POC ABG pO2 ABG Oxyhemoglobin ABG Sodium ABG Potassium ABG Glucose Carboxyhemoglobin Sodium Potassium Chloride Carbon Dioxide BUN Creatinine Glucose POC Glucose Calcium Phosphorus Ferritin Total Bilirubin AST ALT Alkaline Phosphatase Lactate Dehydrogenase Total Creatine Kinase Troponin T 0.057 H C-Reactive Protein NT-Pro-B Natriuret Pep Serum Total Protein Total Protein Albumin Cholesterol LDL Cholesterol Direct HDL Cholesterol PTH Intact Arterial Blood Glucose Urine WBC (Auto) Urine Creatinine Valproic Acid Heparin-induced Plt Ab Lymph Enumerat CD4/CD8 Absolute CD3 Count Absolute CD4 Count % CD8 Cells Absolute CD8 Count Absolute CD19 Count Coronavirus (PCR) HIV-1 RNA PCR copies/ml HIV-1 RNA (PCR) log 09/17/20 09/18/20 09/18/20 17:35 03:19 03:19 WBC RBC 3.32 L Hgb 10.9 L Hct 32.0 L MCV 96 H MCH 33 H MCHC RDW Plt Count 138 L Lymph % (Auto) [place] % (Auto) Lymph # (Auto) [place] # (Auto) Seg Neutrophils % Seg Neuts % (Manual) 95.0 H Lymphocytes % (Manual) 3.0 L Monocytes % (Manual) Nucleated RBC % Seg Neutrophils # Seg Neutrophils # Man 8.1 H Abs Lymphs (Manual) Lymphocytes # (Manual) 0.3 L PT INR APTT D-Dimer Heparin Anti-Xa Level ABG pH POC ABG pCO2 POC ABG pO2 ABG Oxyhemoglobin ABG Sodium ABG Potassium ABG Glucose Carboxyhemoglobin Sodium Potassium Chloride Carbon Dioxide 16 L BUN 70 H Creatinine 4.6 H 4.7 H Glucose 104 H POC Glucose Calcium 8.2 L Phosphorus Ferritin Total Bilirubin 1.60 H AST 128 H ALT 67 H Alkaline Phosphatase Lactate Dehydrogenase Total Creatine Kinase Troponin T C-Reactive Protein NT-Pro-B Natriuret Pep Serum Total Protein Total Protein 5.2 L D Albumin 2.5 L Cholesterol LDL Cholesterol Direct HDL Cholesterol PTH Intact Arterial Blood Glucose Urine WBC (Auto) Urine Creatinine Valproic Acid Heparin-induced Plt Ab Lymph Enumerat CD4/CD8 Absolute CD3 Count Absolute CD4 Count % CD8 Cells Absolute CD8 Count Absolute CD19 Count Coronavirus (PCR) HIV-1 RNA PCR copies/ml HIV-1 RNA (PCR) log 09/18/20 09/18/20 09/18/20 09:39 12:00 12:00 WBC RBC Hgb Hct MCV MCH MCHC RDW Plt Count Lymph % (Auto) [place] % (Auto) Lymph # (Auto) [place] # (Auto) Seg Neutrophils % Seg Neuts % (Manual) Lymphocytes % (Manual) Monocytes % (Manual) Nucleated RBC % Seg Neutrophils # Seg Neutrophils # Man Abs Lymphs (Manual) Lymphocytes # (Manual) PT INR APTT D-Dimer Heparin Anti-Xa Level ABG pH POC ABG pCO2 POC ABG pO2 ABG Oxyhemoglobin ABG Sodium ABG Potassium ABG Glucose Carboxyhemoglobin Sodium Potassium Chloride Carbon Dioxide BUN Creatinine Glucose POC Glucose Calcium Phosphorus Ferritin Total Bilirubin AST ALT Alkaline Phosphatase Lactate Dehydrogenase Total Creatine Kinase Troponin T C-Reactive Protein NT-Pro-B Natriuret Pep Serum Total Protein Total Protein Albumin Cholesterol LDL Cholesterol Direct HDL Cholesterol PTH Intact Arterial Blood Glucose Urine WBC (Auto) 71.0 H Urine Creatinine 61.0 H Valproic Acid Heparin-induced Plt Ab Lymph Enumerat CD4/CD8 Absolute CD3 Count Absolute CD4 Count % CD8 Cells Absolute CD8 Count Absolute CD19 Count Coronavirus (PCR) Positive A HIV-1 RNA PCR copies/ml HIV-1 RNA (PCR) log 09/18/20 09/18/20 09/18/20 15:07 15:07 18:33 WBC RBC Hgb 10.7 L Hct 31.3 L MCV MCH MCHC RDW Plt Count Lymph % (Auto) [place] % (Auto) Lymph # (Auto) [place] # (Auto) Seg Neutrophils % Seg Neuts % (Manual) Lymphocytes % (Manual) Monocytes % (Manual) Nucleated RBC % Seg Neutrophils # Seg Neutrophils # Man Abs Lymphs (Manual) Lymphocytes # (Manual) PT 20.3 H INR 1.73 H APTT 40.8 H D-Dimer Heparin Anti-Xa Level 1.09 H ABG pH POC ABG pCO2 POC ABG pO2 ABG Oxyhemoglobin ABG Sodium ABG Potassium ABG Glucose Carboxyhemoglobin Sodium Potassium Chloride Carbon Dioxide BUN Creatinine Glucose POC Glucose Calcium Phosphorus Ferritin Total Bilirubin AST ALT Alkaline Phosphatase Lactate Dehydrogenase Total Creatine Kinase Troponin T C-Reactive Protein NT-Pro-B Natriuret Pep Serum Total Protein Total Protein Albumin Cholesterol LDL Cholesterol Direct HDL Cholesterol PTH Intact Arterial Blood Glucose Urine WBC (Auto) Urine Creatinine Valproic Acid Heparin-induced Plt Ab Lymph Enumerat CD4/CD8 Absolute CD3 Count Absolute CD4 Count % CD8 Cells Absolute CD8 Count Absolute CD19 Count Coronavirus (PCR) HIV-1 RNA PCR copies/ml HIV-1 RNA (PCR) log 09/19/20 09/19/20 09/19/20 03:30 03:30 03:30 WBC RBC 3.29 L Hgb 10.9 L Hct 30.9 L MCV MCH 33 H MCHC 35 H RDW Plt Count Lymph % (Auto) [place] % (Auto) Lymph # (Auto) [place] # (Auto) Seg Neutrophils % Seg Neuts % (Manual) Lymphocytes % (Manual) Monocytes % (Manual) Nucleated RBC % Seg Neutrophils # Seg Neutrophils # Man Abs Lymphs (Manual) Lymphocytes # (Manual) PT INR APTT D-Dimer Heparin Anti-Xa Level ABG pH POC ABG pCO2 POC ABG pO2 ABG Oxyhemoglobin ABG Sodium ABG Potassium ABG Glucose Carboxyhemoglobin Sodium 133 L Potassium Chloride Carbon Dioxide 17 L BUN 94 H Creatinine 5.0 H Glucose 120 H POC Glucose Calcium Phosphorus 6.30 H Ferritin Total Bilirubin 2.40 H AST 163 H ALT 109 H Alkaline Phosphatase 160 H Lactate Dehydrogenase Total Creatine Kinase 20 L Troponin T C-Reactive Protein NT-Pro-B Natriuret Pep Serum Total Protein Total Protein 6.2 L Albumin 2.0 L Cholesterol LDL Cholesterol Direct HDL Cholesterol PTH Intact 161.4 H Arterial Blood Glucose Urine WBC (Auto) Urine Creatinine Valproic Acid Heparin-induced Plt Ab Lymph Enumerat CD4/CD8 Absolute CD3 Count Absolute CD4 Count % CD8 Cells Absolute CD8 Count Absolute CD19 Count Coronavirus (PCR) HIV-1 RNA PCR copies/ml HIV-1 RNA (PCR) log 09/19/20 09/19/20 09/19/20 06:35 13:35 13:35 WBC RBC Hgb Hct MCV MCH MCHC RDW Plt Count Lymph % (Auto) [place] % (Auto) Lymph # (Auto) [place] # (Auto) Seg Neutrophils % Seg Neuts % (Manual) Lymphocytes % (Manual) Monocytes % (Manual) Nucleated RBC % Seg Neutrophils # Seg Neutrophils # Man Abs Lymphs (Manual) 223 L Lymphocytes # (Manual) PT INR APTT D-Dimer Heparin Anti-Xa Level ABG pH POC ABG pCO2 POC ABG pO2 ABG Oxyhemoglobin ABG Sodium ABG Potassium ABG Glucose Carboxyhemoglobin Sodium Potassium Chloride Carbon Dioxide BUN Creatinine Glucose POC Glucose 123 H Calcium Phosphorus Ferritin Total Bilirubin AST ALT Alkaline Phosphatase Lactate Dehydrogenase Total Creatine Kinase Troponin T C-Reactive Protein NT-Pro-B Natriuret Pep Serum Total Protein Total Protein Albumin Cholesterol LDL Cholesterol Direct HDL Cholesterol PTH Intact Arterial Blood Glucose Urine WBC (Auto) Urine Creatinine Valproic Acid Heparin-induced Plt Ab Lymph Enumerat CD4/CD8 0.70 L Absolute CD3 Count 175 L Absolute CD4 Count 70 L % CD8 Cells 45 H Absolute CD8 Count 101 L Absolute CD19 Count 26 L Coronavirus (PCR) HIV-1 RNA PCR copies/ml 67 H HIV-1 RNA (PCR) log 1.83 H 09/19/20 09/20/20 09/20/20 23:37 04:00 04:00 WBC RBC 3.43 L Hgb 11.1 L Hct 32.2 L MCV MCH MCHC RDW Plt Count 131 L Lymph % (Auto) [place] % (Auto) Lymph # (Auto) [place] # (Auto) Seg Neutrophils % Seg Neuts % (Manual) 88.0 H Lymphocytes % (Manual) 3.0 L Monocytes % (Manual) 9.0 H Nucleated RBC % Seg Neutrophils # Seg Neutrophils # Man 8.2 H Abs Lymphs (Manual) Lymphocytes # (Manual) 0.3 L PT INR APTT D-Dimer Heparin Anti-Xa Level 0.10 L ABG pH POC ABG pCO2 POC ABG pO2 ABG Oxyhemoglobin ABG Sodium ABG Potassium ABG Glucose Carboxyhemoglobin Sodium Potassium Chloride Carbon Dioxide BUN Creatinine Glucose POC Glucose 135 H Calcium Phosphorus Ferritin Total Bilirubin AST ALT Alkaline Phosphatase Lactate Dehydrogenase Total Creatine Kinase Troponin T C-Reactive Protein NT-Pro-B Natriuret Pep Serum Total Protein Total Protein Albumin Cholesterol LDL Cholesterol Direct HDL Cholesterol PTH Intact Arterial Blood Glucose Urine WBC (Auto) Urine Creatinine Valproic Acid Heparin-induced Plt Ab Lymph Enumerat CD4/CD8 Absolute CD3 Count Absolute CD4 Count % CD8 Cells Absolute CD8 Count Absolute CD19 Count Coronavirus (PCR) HIV-1 RNA PCR copies/ml HIV-1 RNA (PCR) log 09/20/20 09/20/20 09/20/20 04:00 05:37 11:20 WBC RBC Hgb Hct MCV MCH MCHC RDW Plt Count Lymph % (Auto) [place] % (Auto) Lymph # (Auto) [place] # (Auto) Seg Neutrophils % Seg Neuts % (Manual) Lymphocytes % (Manual) Monocytes % (Manual) Nucleated RBC % Seg Neutrophils # Seg Neutrophils # Man Abs Lymphs (Manual) Lymphocytes # (Manual) PT INR APTT D-Dimer Heparin Anti-Xa Level ABG pH POC ABG pCO2 POC ABG pO2 ABG Oxyhemoglobin ABG Sodium ABG Potassium ABG Glucose Carboxyhemoglobin Sodium Potassium Chloride Carbon Dioxide 16 L BUN 119 H Creatinine 6.2 H Glucose 136 H POC Glucose 137 H 108 H Calcium Phosphorus Ferritin Total Bilirubin AST ALT Alkaline Phosphatase Lactate Dehydrogenase Total Creatine Kinase Troponin T C-Reactive Protein NT-Pro-B Natriuret Pep Serum Total Protein Total Protein Albumin Cholesterol LDL Cholesterol Direct HDL Cholesterol PTH Intact Arterial Blood Glucose Urine WBC (Auto) Urine Creatinine Valproic Acid Heparin-induced Plt Ab Lymph Enumerat CD4/CD8 Absolute CD3 Count Absolute CD4 Count % CD8 Cells Absolute CD8 Count Absolute CD19 Count Coronavirus (PCR) HIV-1 RNA PCR copies/ml HIV-1 RNA (PCR) log 09/20/20 09/20/20 09/20/20 17:10 17:10 17:10 WBC RBC Hgb Hct MCV MCH MCHC RDW Plt Count Lymph % (Auto) [place] % (Auto) Lymph # (Auto) [place] # (Auto) Seg Neutrophils % Seg Neuts % (Manual) Lymphocytes % (Manual) Monocytes % (Manual) Nucleated RBC % Seg Neutrophils # Seg Neutrophils # Man Abs Lymphs (Manual) Lymphocytes # (Manual) PT INR APTT D-Dimer 4271.58 H Heparin Anti-Xa Level ABG pH POC ABG pCO2 POC ABG pO2 ABG Oxyhemoglobin ABG Sodium ABG Potassium ABG Glucose Carboxyhemoglobin Sodium Potassium Chloride Carbon Dioxide BUN Creatinine 6.0 H Glucose POC Glucose Calcium Phosphorus Ferritin 696.6 H Total Bilirubin AST ALT Alkaline Phosphatase Lactate Dehydrogenase Total Creatine Kinase Troponin T C-Reactive Protein NT-Pro-B Natriuret Pep Serum Total Protein Total Protein Albumin Cholesterol LDL Cholesterol Direct HDL Cholesterol PTH Intact Arterial Blood Glucose Urine WBC (Auto) Urine Creatinine Valproic Acid Heparin-induced Plt Ab Lymph Enumerat CD4/CD8 Absolute CD3 Count Absolute CD4 Count % CD8 Cells Absolute CD8 Count Absolute CD19 Count Coronavirus (PCR) HIV-1 RNA PCR copies/ml HIV-1 RNA (PCR) log 09/20/20 09/20/20 09/20/20 17:10 18:21 23:14 WBC RBC Hgb Hct MCV MCH MCHC RDW Plt Count Lymph % (Auto) [place] % (Auto) Lymph # (Auto) [place] # (Auto) Seg Neutrophils % Seg Neuts % (Manual) Lymphocytes % (Manual) Monocytes % (Manual) Nucleated RBC % Seg Neutrophils # Seg Neutrophils # Man Abs Lymphs (Manual) Lymphocytes # (Manual) PT INR APTT D-Dimer Heparin Anti-Xa Level ABG pH POC ABG pCO2 POC ABG pO2 ABG Oxyhemoglobin ABG Sodium ABG Potassium ABG Glucose Carboxyhemoglobin Sodium Potassium Chloride Carbon Dioxide BUN Creatinine Glucose POC Glucose 129 H 170 H Calcium Phosphorus Ferritin Total Bilirubin AST ALT Alkaline Phosphatase Lactate Dehydrogenase 209 H Total Creatine Kinase Troponin T C-Reactive Protein 10.60 H NT-Pro-B Natriuret Pep Serum Total Protein Total Protein Albumin Cholesterol LDL Cholesterol Direct HDL Cholesterol PTH Intact Arterial Blood Glucose Urine WBC (Auto) Urine Creatinine Valproic Acid Heparin-induced Plt Ab Lymph Enumerat CD4/CD8 Absolute CD3 Count Absolute CD4 Count % CD8 Cells Absolute CD8 Count Absolute CD19 Count Coronavirus (PCR) HIV-1 RNA PCR copies/ml HIV-1 RNA (PCR) log 09/21/20 09/21/20 09/21/20 05:35 17:09 23:18 WBC RBC Hgb Hct MCV MCH MCHC RDW Plt Count Lymph % (Auto) [place] % (Auto) Lymph # (Auto) [place] # (Auto) Seg Neutrophils % Seg Neuts % (Manual) Lymphocytes % (Manual) Monocytes % (Manual) Nucleated RBC % Seg Neutrophils # Seg Neutrophils # Man Abs Lymphs (Manual) Lymphocytes # (Manual) PT INR APTT D-Dimer Heparin Anti-Xa Level ABG pH POC ABG pCO2 POC ABG pO2 ABG Oxyhemoglobin ABG Sodium ABG Potassium ABG Glucose Carboxyhemoglobin Sodium Potassium Chloride Carbon Dioxide BUN Creatinine Glucose POC Glucose 170 H 140 H 139 H Calcium Phosphorus Ferritin Total Bilirubin AST ALT Alkaline Phosphatase Lactate Dehydrogenase Total Creatine Kinase Troponin T C-Reactive Protein NT-Pro-B Natriuret Pep Serum Total Protein Total Protein Albumin Cholesterol LDL Cholesterol Direct HDL Cholesterol PTH Intact Arterial Blood Glucose Urine WBC (Auto) Urine Creatinine Valproic Acid Heparin-induced Plt Ab Lymph Enumerat CD4/CD8 Absolute CD3 Count Absolute CD4 Count % CD8 Cells Absolute CD8 Count Absolute CD19 Count Coronavirus (PCR) HIV-1 RNA PCR copies/ml HIV-1 RNA (PCR) log 09/21/20 09/21/20 09/21/20 Unknown Unknown Unknown WBC RBC 3.56 L Hgb 11.3 L Hct 33.2 L MCV MCH MCHC RDW Plt Count 125 L Lymph % (Auto) [place] % (Auto) Lymph # (Auto) [place] # (Auto) Seg Neutrophils % Seg Neuts % (Manual) 90.0 H Lymphocytes % (Manual) 8.0 L Monocytes % (Manual) Nucleated RBC % 1.0 H Seg Neutrophils # Seg Neutrophils # Man 9.4 H Abs Lymphs (Manual) Lymphocytes # (Manual) 0.8 L PT 16.8 H INR 1.36 H APTT D-Dimer Heparin Anti-Xa Level ABG pH POC ABG pCO2 POC ABG pO2 ABG Oxyhemoglobin ABG Sodium ABG Potassium ABG Glucose Carboxyhemoglobin Sodium Potassium Chloride Carbon Dioxide BUN 83 H Creatinine 4.3 H Glucose 163 H POC Glucose Calcium Phosphorus Ferritin Total Bilirubin 2.40 H AST ALT 57 H Alkaline Phosphatase < 5 L Lactate Dehydrogenase Total Creatine Kinase Troponin T C-Reactive Protein NT-Pro-B Natriuret Pep Serum Total Protein Total Protein Albumin 1.9 L Cholesterol LDL Cholesterol Direct HDL Cholesterol PTH Intact Arterial Blood Glucose Urine WBC (Auto) Urine Creatinine Valproic Acid Heparin-induced Plt Ab Lymph Enumerat CD4/CD8 Absolute CD3 Count Absolute CD4 Count % CD8 Cells Absolute CD8 Count Absolute CD19 Count Coronavirus (PCR) HIV-1 RNA PCR copies/ml HIV-1 RNA (PCR) log 09/22/20 09/22/20 09/22/20 05:38 05:38 05:38 WBC 15.8 H RBC 3.36 L Hgb 10.8 L Hct 31.0 L MCV MCH MCHC 35 H RDW Plt Count 68 L Lymph % (Auto) 3.1 L [place] % (Auto) 10.7 H Lymph # (Auto) 0.5 L [place] # (Auto) 1.7 H Seg Neutrophils % 85.9 H Seg Neuts % (Manual) Lymphocytes % (Manual) Monocytes % (Manual) Nucleated RBC % Seg Neutrophils # 13.6 H Seg Neutrophils # Man Abs Lymphs (Manual) Lymphocytes # (Manual) PT INR APTT D-Dimer 3281.49 H Heparin Anti-Xa Level ABG pH POC ABG pCO2 POC ABG pO2 ABG Oxyhemoglobin ABG Sodium ABG Potassium ABG Glucose Carboxyhemoglobin Sodium Potassium Chloride Carbon Dioxide BUN 61 H Creatinine 3.1 H Glucose 129 H POC Glucose Calcium Phosphorus Ferritin Total Bilirubin AST ALT Alkaline Phosphatase Lactate Dehydrogenase 277 H Total Creatine Kinase Troponin T C-Reactive Protein 6.60 H NT-Pro-B Natriuret Pep Serum Total Protein Total Protein Albumin Cholesterol LDL Cholesterol Direct HDL Cholesterol PTH Intact Arterial Blood Glucose Urine WBC (Auto) Urine Creatinine Valproic Acid Heparin-induced Plt Ab Lymph Enumerat CD4/CD8 Absolute CD3 Count Absolute CD4 Count % CD8 Cells Absolute CD8 Count Absolute CD19 Count Coronavirus (PCR) HIV-1 RNA PCR copies/ml HIV-1 RNA (PCR) log 09/22/20 09/22/20 09/22/20 05:38 05:44 11:26 WBC RBC Hgb Hct MCV MCH MCHC RDW Plt Count Lymph % (Auto) [place] % (Auto) Lymph # (Auto) [place] # (Auto) Seg Neutrophils % Seg Neuts % (Manual) Lymphocytes % (Manual) Monocytes % (Manual) Nucleated RBC % Seg Neutrophils # Seg Neutrophils # Man Abs Lymphs (Manual) Lymphocytes # (Manual) PT INR APTT D-Dimer Heparin Anti-Xa Level ABG pH POC ABG pCO2 POC ABG pO2 ABG Oxyhemoglobin ABG Sodium ABG Potassium ABG Glucose Carboxyhemoglobin Sodium Potassium Chloride Carbon Dioxide BUN Creatinine Glucose POC Glucose 112 H 131 H Calcium Phosphorus Ferritin 927.8 H Total Bilirubin AST ALT Alkaline Phosphatase Lactate Dehydrogenase Total Creatine Kinase Troponin T C-Reactive Protein NT-Pro-B Natriuret Pep Serum Total Protein Total Protein Albumin Cholesterol LDL Cholesterol Direct HDL Cholesterol PTH Intact Arterial Blood Glucose Urine WBC (Auto) Urine Creatinine Valproic Acid Heparin-induced Plt Ab Lymph Enumerat CD4/CD8 Absolute CD3 Count Absolute CD4 Count % CD8 Cells Absolute CD8 Count Absolute CD19 Count Coronavirus (PCR) HIV-1 RNA PCR copies/ml HIV-1 RNA (PCR) log 09/22/20 09/22/20 09/22/20 15:12 15:12 15:12 WBC RBC Hgb Hct MCV MCH MCHC RDW Plt Count Lymph % (Auto) [place] % (Auto) Lymph # (Auto) [place] # (Auto) Seg Neutrophils % Seg Neuts % (Manual) Lymphocytes % (Manual) Monocytes % (Manual) Nucleated RBC % Seg Neutrophils # Seg Neutrophils # Man Abs Lymphs (Manual) Lymphocytes # (Manual) PT 17.3 H INR 1.42 H APTT D-Dimer Heparin Anti-Xa Level ABG pH POC ABG pCO2 POC ABG pO2 ABG Oxyhemoglobin ABG Sodium ABG Potassium ABG Glucose Carboxyhemoglobin Sodium Potassium Chloride Carbon Dioxide BUN Creatinine 3.0 H Glucose POC Glucose Calcium Phosphorus Ferritin Total Bilirubin AST ALT Alkaline Phosphatase Lactate Dehydrogenase Total Creatine Kinase Troponin T C-Reactive Protein NT-Pro-B Natriuret Pep Serum Total Protein Total Protein Albumin Cholesterol LDL Cholesterol Direct HDL Cholesterol PTH Intact Arterial Blood Glucose Urine WBC (Auto) Urine Creatinine Valproic Acid Heparin-induced Plt Ab Weak positive H Lymph Enumerat CD4/CD8 Absolute CD3 Count Absolute CD4 Count % CD8 Cells Absolute CD8 Count Absolute CD19 Count Coronavirus (PCR) HIV-1 RNA PCR copies/ml HIV-1 RNA (PCR) log 09/22/20 09/22/20 09/23/20 16:53 23:55 04:36 WBC 14.2 H RBC 3.05 L Hgb 9.8 L Hct 28.4 L MCV MCH MCHC RDW Plt Count 39 L Lymph % (Auto) [place] % (Auto) Lymph # (Auto) [place] # (Auto) Seg Neutrophils % Seg Neuts % (Manual) 91.0 H Lymphocytes % (Manual) 2.0 L Monocytes % (Manual) Nucleated RBC % Seg Neutrophils # Seg Neutrophils # Man 12.9 H Abs Lymphs (Manual) Lymphocytes # (Manual) 0.3 L PT INR APTT D-Dimer Heparin Anti-Xa Level ABG pH POC ABG pCO2 POC ABG pO2 ABG Oxyhemoglobin ABG Sodium ABG Potassium ABG Glucose Carboxyhemoglobin Sodium Potassium Chloride Carbon Dioxide BUN Creatinine Glucose POC Glucose 138 H 171 H Calcium Phosphorus Ferritin Total Bilirubin AST ALT Alkaline Phosphatase Lactate Dehydrogenase Total Creatine Kinase Troponin T C-Reactive Protein NT-Pro-B Natriuret Pep Serum Total Protein Total Protein Albumin Cholesterol LDL Cholesterol Direct HDL Cholesterol PTH Intact Arterial Blood Glucose Urine WBC (Auto) Urine Creatinine Valproic Acid Heparin-induced Plt Ab Lymph Enumerat CD4/CD8 Absolute CD3 Count Absolute CD4 Count % CD8 Cells Absolute CD8 Count Absolute CD19 Count Coronavirus (PCR) HIV-1 RNA PCR copies/ml HIV-1 RNA (PCR) log 09/23/20 09/23/20 09/23/20 04:36 05:41 11:38 WBC RBC Hgb Hct MCV MCH MCHC RDW Plt Count Lymph % (Auto) [place] % (Auto) Lymph # (Auto) [place] # (Auto) Seg Neutrophils % Seg Neuts % (Manual) Lymphocytes % (Manual) Monocytes % (Manual) Nucleated RBC % Seg Neutrophils # Seg Neutrophils # Man Abs Lymphs (Manual) Lymphocytes # (Manual) PT INR APTT D-Dimer Heparin Anti-Xa Level ABG pH POC ABG pCO2 POC ABG pO2 ABG Oxyhemoglobin ABG Sodium ABG Potassium ABG Glucose Carboxyhemoglobin Sodium Potassium Chloride Carbon Dioxide BUN 76 H Creatinine 3.1 H Glucose 157 H POC Glucose 136 H 141 H Calcium Phosphorus Ferritin Total Bilirubin AST ALT Alkaline Phosphatase Lactate Dehydrogenase Total Creatine Kinase Troponin T C-Reactive Protein NT-Pro-B Natriuret Pep Serum Total Protein Total Protein Albumin Cholesterol LDL Cholesterol Direct HDL Cholesterol PTH Intact Arterial Blood Glucose Urine WBC (Auto) Urine Creatinine Valproic Acid Heparin-induced Plt Ab Lymph Enumerat CD4/CD8 Absolute CD3 Count Absolute CD4 Count % CD8 Cells Absolute CD8 Count Absolute CD19 Count Coronavirus (PCR) HIV-1 RNA PCR copies/ml HIV-1 RNA (PCR) log 09/23/20 09/23/20 09/24/20 17:09 23:51 05:00 WBC 24.2 H RBC 3.23 L Hgb 10.0 L Hct 29.7 L MCV MCH MCHC RDW Plt Count 74 L Lymph % (Auto) [place] % (Auto) Lymph # (Auto) [place] # (Auto) Seg Neutrophils % Seg Neuts % (Manual) Lymphocytes % (Manual) Monocytes % (Manual) Nucleated RBC % Seg Neutrophils # Seg Neutrophils # Man Abs Lymphs (Manual) Lymphocytes # (Manual) PT INR APTT D-Dimer Heparin Anti-Xa Level ABG pH POC ABG pCO2 POC ABG pO2 ABG Oxyhemoglobin ABG Sodium ABG Potassium ABG Glucose Carboxyhemoglobin Sodium Potassium Chloride Carbon Dioxide BUN Creatinine Glucose POC Glucose 128 H 128 H Calcium Phosphorus Ferritin Total Bilirubin AST ALT Alkaline Phosphatase Lactate Dehydrogenase Total Creatine Kinase Troponin T C-Reactive Protein NT-Pro-B Natriuret Pep Serum Total Protein Total Protein Albumin Cholesterol LDL Cholesterol Direct HDL Cholesterol PTH Intact Arterial Blood Glucose Urine WBC (Auto) Urine Creatinine Valproic Acid Heparin-induced Plt Ab Lymph Enumerat CD4/CD8 Absolute CD3 Count Absolute CD4 Count % CD8 Cells Absolute CD8 Count Absolute CD19 Count Coronavirus (PCR) HIV-1 RNA PCR copies/ml HIV-1 RNA (PCR) log 09/24/20 09/24/20 09/24/20 05:00 05:00 05:00 WBC RBC Hgb Hct MCV MCH MCHC RDW Plt Count Lymph % (Auto) [place] % (Auto) Lymph # (Auto) [place] # (Auto) Seg Neutrophils % Seg Neuts % (Manual) Lymphocytes % (Manual) Monocytes % (Manual) Nucleated RBC % Seg Neutrophils # Seg Neutrophils # Man Abs Lymphs (Manual) Lymphocytes # (Manual) PT INR APTT D-Dimer 1772.86 H Heparin Anti-Xa Level ABG pH POC ABG pCO2 POC ABG pO2 ABG Oxyhemoglobin ABG Sodium ABG Potassium ABG Glucose Carboxyhemoglobin Sodium Potassium Chloride 107.1 H Carbon Dioxide BUN 90 H Creatinine 3.1 H Glucose 118 H POC Glucose Calcium Phosphorus Ferritin 1190.0 H Total Bilirubin AST ALT Alkaline Phosphatase Lactate Dehydrogenase 276 H Total Creatine Kinase Troponin T C-Reactive Protein 4.20 H NT-Pro-B Natriuret Pep Serum Total Protein Total Protein Albumin Cholesterol LDL Cholesterol Direct HDL Cholesterol PTH Intact Arterial Blood Glucose Urine WBC (Auto) Urine Creatinine Valproic Acid Heparin-induced Plt Ab Lymph Enumerat CD4/CD8 Absolute CD3 Count Absolute CD4 Count % CD8 Cells Absolute CD8 Count Absolute CD19 Count Coronavirus (PCR) HIV-1 RNA PCR copies/ml HIV-1 RNA (PCR) log 09/24/20 09/24/20 09/24/20 05:12 11:25 12:09 WBC RBC Hgb Hct MCV MCH MCHC RDW Plt Count Lymph % (Auto) [place] % (Auto) Lymph # (Auto) [place] # (Auto) Seg Neutrophils % Seg Neuts % (Manual) Lymphocytes % (Manual) Monocytes % (Manual) Nucleated RBC % Seg Neutrophils # Seg Neutrophils # Man Abs Lymphs (Manual) Lymphocytes # (Manual) PT INR APTT D-Dimer Heparin Anti-Xa Level ABG pH POC ABG pCO2 POC ABG pO2 ABG Oxyhemoglobin ABG Sodium ABG Potassium ABG Glucose Carboxyhemoglobin Sodium Potassium Chloride Carbon Dioxide BUN Creatinine 3.1 H Glucose POC Glucose 114 H 110 H Calcium Phosphorus Ferritin Total Bilirubin AST ALT Alkaline Phosphatase Lactate Dehydrogenase Total Creatine Kinase Troponin T C-Reactive Protein NT-Pro-B Natriuret Pep Serum Total Protein Total Protein Albumin Cholesterol LDL Cholesterol Direct HDL Cholesterol PTH Intact Arterial Blood Glucose Urine WBC (Auto) Urine Creatinine Valproic Acid Heparin-induced Plt Ab Lymph Enumerat CD4/CD8 Absolute CD3 Count Absolute CD4 Count % CD8 Cells Absolute CD8 Count Absolute CD19 Count Coronavirus (PCR) HIV-1 RNA PCR copies/ml HIV-1 RNA (PCR) log 09/24/20 09/24/20 09/24/20 12:13 12:13 17:41 WBC 20.8 H RBC 3.04 L Hgb 9.5 L Hct 28.0 L MCV MCH MCHC RDW Plt Count 78 L Lymph % (Auto) [place] % (Auto) Lymph # (Auto) [place] # (Auto) Seg Neutrophils % Seg Neuts % (Manual) Lymphocytes % (Manual) Monocytes % (Manual) Nucleated RBC % Seg Neutrophils # Seg Neutrophils # Man Abs Lymphs (Manual) Lymphocytes # (Manual) PT 15.7 H INR 1.27 H APTT D-Dimer Heparin Anti-Xa Level ABG pH POC ABG pCO2 POC ABG pO2 ABG Oxyhemoglobin ABG Sodium ABG Potassium ABG Glucose Carboxyhemoglobin Sodium Potassium Chloride Carbon Dioxide BUN Creatinine Glucose POC Glucose 133 H Calcium Phosphorus Ferritin Total Bilirubin AST ALT Alkaline Phosphatase Lactate Dehydrogenase Total Creatine Kinase Troponin T C-Reactive Protein NT-Pro-B Natriuret Pep Serum Total Protein Total Protein Albumin Cholesterol LDL Cholesterol Direct HDL Cholesterol PTH Intact Arterial Blood Glucose Urine WBC (Auto) Urine Creatinine Valproic Acid Heparin-induced Plt Ab Lymph Enumerat CD4/CD8 Absolute CD3 Count Absolute CD4 Count % CD8 Cells Absolute CD8 Count Absolute CD19 Count Coronavirus (PCR) HIV-1 RNA PCR copies/ml HIV-1 RNA (PCR) log 09/24/20 09/25/20 09/25/20 23:34 06:40 06:40 WBC RBC Hgb Hct MCV MCH MCHC RDW Plt Count Lymph % (Auto) [place] % (Auto) Lymph # (Auto) [place] # (Auto) Seg Neutrophils % Seg Neuts % (Manual) Lymphocytes % (Manual) Monocytes % (Manual) Nucleated RBC % Seg Neutrophils # Seg Neutrophils # Man Abs Lymphs (Manual) Lymphocytes # (Manual) PT INR APTT D-Dimer Heparin Anti-Xa Level ABG pH POC ABG pCO2 POC ABG pO2 ABG Oxyhemoglobin ABG Sodium ABG Potassium ABG Glucose Carboxyhemoglobin Sodium Potassium Chloride 109.0 H Carbon Dioxide BUN 98 H Creatinine 3.0 H 3.0 H Glucose 111 H POC Glucose 113 H Calcium Phosphorus Ferritin Total Bilirubin AST ALT Alkaline Phosphatase Lactate Dehydrogenase Total Creatine Kinase Troponin T C-Reactive Protein NT-Pro-B Natriuret Pep Serum Total Protein Total Protein Albumin Cholesterol LDL Cholesterol Direct HDL Cholesterol PTH Intact Arterial Blood Glucose Urine WBC (Auto) Urine Creatinine Valproic Acid Heparin-induced Plt Ab Lymph Enumerat CD4/CD8 Absolute CD3 Count Absolute CD4 Count % CD8 Cells Absolute CD8 Count Absolute CD19 Count Coronavirus (PCR) HIV-1 RNA PCR copies/ml HIV-1 RNA (PCR) log 09/25/20 09/25/20 09/25/20 10:45 12:45 18:03 WBC 20.7 H RBC 3.33 L Hgb 10.2 L Hct 31.3 L MCV MCH MCHC RDW Plt Count 139 L Lymph % (Auto) [place] % (Auto) Lymph # (Auto) [place] # (Auto) Seg Neutrophils % Seg Neuts % (Manual) Lymphocytes % (Manual) Monocytes % (Manual) Nucleated RBC % Seg Neutrophils # Seg Neutrophils # Man Abs Lymphs (Manual) Lymphocytes # (Manual) PT INR APTT D-Dimer Heparin Anti-Xa Level ABG pH POC ABG pCO2 POC ABG pO2 ABG Oxyhemoglobin ABG Sodium ABG Potassium ABG Glucose Carboxyhemoglobin Sodium Potassium Chloride Carbon Dioxide BUN Creatinine Glucose POC Glucose 108 H 114 H Calcium Phosphorus Ferritin Total Bilirubin AST ALT Alkaline Phosphatase Lactate Dehydrogenase Total Creatine Kinase Troponin T C-Reactive Protein NT-Pro-B Natriuret Pep Serum Total Protein Total Protein Albumin Cholesterol LDL Cholesterol Direct HDL Cholesterol PTH Intact Arterial Blood Glucose Urine WBC (Auto) Urine Creatinine Valproic Acid Heparin-induced Plt Ab Lymph Enumerat CD4/CD8 Absolute CD3 Count Absolute CD4 Count % CD8 Cells Absolute CD8 Count Absolute CD19 Count Coronavirus (PCR) HIV-1 RNA PCR copies/ml HIV-1 RNA (PCR) log 09/25/20 09/26/20 09/26/20 23:29 05:00 07:06 WBC 17.0 H RBC 3.10 L Hgb 9.6 L Hct 28.8 L MCV MCH MCHC RDW Plt Count Lymph % (Auto) [place] % (Auto) Lymph # (Auto) [place] # (Auto) Seg Neutrophils % Seg Neuts % (Manual) Lymphocytes % (Manual) Monocytes % (Manual) Nucleated RBC % Seg Neutrophils # Seg Neutrophils # Man Abs Lymphs (Manual) Lymphocytes # (Manual) PT INR APTT D-Dimer Heparin Anti-Xa Level ABG pH POC ABG pCO2 POC ABG pO2 ABG Oxyhemoglobin ABG Sodium ABG Potassium ABG Glucose Carboxyhemoglobin Sodium Potassium Chloride Carbon Dioxide BUN Creatinine Glucose POC Glucose 111 H 115 H Calcium Phosphorus Ferritin Total Bilirubin AST ALT Alkaline Phosphatase Lactate Dehydrogenase Total Creatine Kinase Troponin T C-Reactive Protein NT-Pro-B Natriuret Pep Serum Total Protein Total Protein Albumin Cholesterol LDL Cholesterol Direct HDL Cholesterol PTH Intact Arterial Blood Glucose Urine WBC (Auto) Urine Creatinine Valproic Acid Heparin-induced Plt Ab Lymph Enumerat CD4/CD8 Absolute CD3 Count Absolute CD4 Count % CD8 Cells Absolute CD8 Count Absolute CD19 Count Coronavirus (PCR) HIV-1 RNA PCR copies/ml HIV-1 RNA (PCR) log 09/26/20 09/26/20 09/27/20 07:06 17:26 04:00 WBC RBC Hgb Hct MCV MCH MCHC RDW Plt Count Lymph % (Auto) [place] % (Auto) Lymph # (Auto) [place] # (Auto) Seg Neutrophils % Seg Neuts % (Manual) Lymphocytes % (Manual) Monocytes % (Manual) Nucleated RBC % Seg Neutrophils # Seg Neutrophils # Man Abs Lymphs (Manual) Lymphocytes # (Manual) PT INR APTT D-Dimer Heparin Anti-Xa Level ABG pH POC ABG pCO2 POC ABG pO2 ABG Oxyhemoglobin ABG Sodium ABG Potassium ABG Glucose Carboxyhemoglobin Sodium Potassium Chloride Carbon Dioxide BUN 69 H 67 H Creatinine 2.2 H 2.3 H Glucose 107 H 121 H POC Glucose 124 H Calcium Phosphorus Ferritin Total Bilirubin AST ALT Alkaline Phosphatase Lactate Dehydrogenase Total Creatine Kinase Troponin T C-Reactive Protein NT-Pro-B Natriuret Pep Serum Total Protein Total Protein Albumin Cholesterol LDL Cholesterol Direct HDL Cholesterol PTH Intact Arterial Blood Glucose Urine WBC (Auto) Urine Creatinine Valproic Acid Heparin-induced Plt Ab Lymph Enumerat CD4/CD8 Absolute CD3 Count Absolute CD4 Count % CD8 Cells Absolute CD8 Count Absolute CD19 Count Coronavirus (PCR) HIV-1 RNA PCR copies/ml HIV-1 RNA (PCR) log 09/27/20 09/27/20 09/27/20 04:00 05:00 17:11 WBC 14.6 H RBC 2.72 L Hgb 8.6 L Hct 25.8 L MCV 95 H MCH MCHC RDW Plt Count Lymph % (Auto) 4.3 L [place] % (Auto) Lymph # (Auto) 0.6 L [place] # (Auto) 0.9 H Seg Neutrophils % 89.6 H Seg Neuts % (Manual) Lymphocytes % (Manual) Monocytes % (Manual) Nucleated RBC % Seg Neutrophils # 13.1 H Seg Neutrophils # Man Abs Lymphs (Manual) Lymphocytes # (Manual) PT INR APTT D-Dimer Heparin Anti-Xa Level ABG pH POC ABG pCO2 POC ABG pO2 ABG Oxyhemoglobin ABG Sodium ABG Potassium ABG Glucose Carboxyhemoglobin Sodium Potassium Chloride Carbon Dioxide BUN Creatinine 2.4 H Glucose POC Glucose 132 H Calcium Phosphorus Ferritin Total Bilirubin AST ALT Alkaline Phosphatase Lactate Dehydrogenase Total Creatine Kinase Troponin T C-Reactive Protein NT-Pro-B Natriuret Pep Serum Total Protein Total Protein Albumin Cholesterol LDL Cholesterol Direct HDL Cholesterol PTH Intact Arterial Blood Glucose Urine WBC (Auto) Urine Creatinine Valproic Acid Heparin-induced Plt Ab Lymph Enumerat CD4/CD8 Absolute CD3 Count Absolute CD4 Count % CD8 Cells Absolute CD8 Count Absolute CD19 Count Coronavirus (PCR) HIV-1 RNA PCR copies/ml HIV-1 RNA (PCR) log 09/28/20 09/28/20 09/29/20 04:46 04:46 04:45 WBC 14.6 H RBC 2.66 L Hgb 8.4 L Hct 25.3 L MCV 95 H MCH MCHC RDW Plt Count Lymph % (Auto) [place] % (Auto) Lymph # (Auto) [place] # (Auto) Seg Neutrophils % Seg Neuts % (Manual) Lymphocytes % (Manual) Monocytes % (Manual) Nucleated RBC % Seg Neutrophils # Seg Neutrophils # Man Abs Lymphs (Manual) Lymphocytes # (Manual) PT INR APTT D-Dimer Heparin Anti-Xa Level ABG pH POC ABG pCO2 POC ABG pO2 ABG Oxyhemoglobin ABG Sodium ABG Potassium ABG Glucose Carboxyhemoglobin Sodium Potassium Chloride Carbon Dioxide BUN 71 H 63 H Creatinine 2.3 H 2.2 H Glucose 105 H POC Glucose Calcium Phosphorus Ferritin Total Bilirubin AST ALT Alkaline Phosphatase Lactate Dehydrogenase Total Creatine Kinase Troponin T C-Reactive Protein NT-Pro-B Natriuret Pep Serum Total Protein Total Protein Albumin Cholesterol LDL Cholesterol Direct HDL Cholesterol PTH Intact Arterial Blood Glucose Urine WBC (Auto) Urine Creatinine Valproic Acid Heparin-induced Plt Ab Lymph Enumerat CD4/CD8 Absolute CD3 Count Absolute CD4 Count % CD8 Cells Absolute CD8 Count Absolute CD19 Count Coronavirus (PCR) HIV-1 RNA PCR copies/ml HIV-1 RNA (PCR) log 09/29/20 09/29/20 09/29/20 04:45 05:43 17:50 WBC RBC 2.92 L Hgb 9.6 L Hct 28.1 L MCV 96 H MCH 33 H MCHC RDW Plt Count Lymph % (Auto) [place] % (Auto) Lymph # (Auto) [place] # (Auto) Seg Neutrophils % Seg Neuts % (Manual) Lymphocytes % (Manual) Monocytes % (Manual) Nucleated RBC % Seg Neutrophils # Seg Neutrophils # Man Abs Lymphs (Manual) Lymphocytes # (Manual) PT INR APTT D-Dimer Heparin Anti-Xa Level ABG pH POC ABG pCO2 POC ABG pO2 ABG Oxyhemoglobin ABG Sodium ABG Potassium ABG Glucose Carboxyhemoglobin Sodium Potassium Chloride Carbon Dioxide BUN Creatinine Glucose POC Glucose 69 L 132 H Calcium Phosphorus Ferritin Total Bilirubin AST ALT Alkaline Phosphatase Lactate Dehydrogenase Total Creatine Kinase Troponin T C-Reactive Protein NT-Pro-B Natriuret Pep Serum Total Protein Total Protein Albumin Cholesterol LDL Cholesterol Direct HDL Cholesterol PTH Intact Arterial Blood Glucose Urine WBC (Auto) Urine Creatinine Valproic Acid Heparin-induced Plt Ab Lymph Enumerat CD4/CD8 Absolute CD3 Count Absolute CD4 Count % CD8 Cells Absolute CD8 Count Absolute CD19 Count Coronavirus (PCR) HIV-1 RNA PCR copies/ml HIV-1 RNA (PCR) log 09/30/20 09/30/20 09/30/20 04:47 04:47 04:47 WBC RBC 2.47 L Hgb 8.1 L Hct 23.9 L MCV 97 H MCH 33 H MCHC RDW Plt Count Lymph % (Auto) [place] % (Auto) Lymph # (Auto) [place] # (Auto) Seg Neutrophils % Seg Neuts % (Manual) Lymphocytes % (Manual) Monocytes % (Manual) Nucleated RBC % Seg Neutrophils # Seg Neutrophils # Man Abs Lymphs (Manual) Lymphocytes # (Manual) PT INR APTT D-Dimer Heparin Anti-Xa Level ABG pH POC ABG pCO2 POC ABG pO2 ABG Oxyhemoglobin ABG Sodium ABG Potassium ABG Glucose Carboxyhemoglobin Sodium Potassium Chloride Carbon Dioxide 31 H BUN 63 H Creatinine 2.1 H Glucose POC Glucose Calcium Phosphorus Ferritin Total Bilirubin AST ALT Alkaline Phosphatase Lactate Dehydrogenase Total Creatine Kinase Troponin T C-Reactive Protein NT-Pro-B Natriuret Pep Serum Total Protein 5.5 L Total Protein 5.9 L Albumin 2.2 L 2.1 L Cholesterol LDL Cholesterol Direct HDL Cholesterol PTH Intact Arterial Blood Glucose Urine WBC (Auto) Urine Creatinine Valproic Acid Heparin-induced Plt Ab Lymph Enumerat CD4/CD8 Absolute CD3 Count Absolute CD4 Count % CD8 Cells Absolute CD8 Count Absolute CD19 Count Coronavirus (PCR) HIV-1 RNA PCR copies/ml HIV-1 RNA (PCR) log 10/01/20 10/01/20 10/02/20 07:16 08:30 05:10 WBC RBC Hgb Hct MCV MCH MCHC RDW Plt Count Lymph % (Auto) [place] % (Auto) Lymph # (Auto) [place] # (Auto) Seg Neutrophils % Seg Neuts % (Manual) Lymphocytes % (Manual) Monocytes % (Manual) Nucleated RBC % Seg Neutrophils # Seg Neutrophils # Man Abs Lymphs (Manual) Lymphocytes # (Manual) PT INR APTT D-Dimer Heparin Anti-Xa Level ABG pH POC ABG pCO2 POC ABG pO2 ABG Oxyhemoglobin ABG Sodium ABG Potassium ABG Glucose Carboxyhemoglobin Sodium Potassium Chloride Carbon Dioxide BUN 58 H 48 H Creatinine 2.2 H 2.0 H Glucose POC Glucose Calcium Phosphorus Ferritin Total Bilirubin AST ALT Alkaline Phosphatase Lactate Dehydrogenase Total Creatine Kinase Troponin T C-Reactive Protein NT-Pro-B Natriuret Pep Serum Total Protein Total Protein Albumin Cholesterol LDL Cholesterol Direct HDL Cholesterol PTH Intact Arterial Blood Glucose Urine WBC (Auto) Urine Creatinine Valproic Acid Heparin-induced Plt Ab Lymph Enumerat CD4/CD8 Absolute CD3 Count Absolute CD4 Count % CD8 Cells Absolute CD8 Count Absolute CD19 Count Coronavirus (PCR) Positive A HIV-1 RNA PCR copies/ml HIV-1 RNA (PCR) log 10/03/20 10/03/20 10/04/20 08:12 08:12 18:19 WBC RBC Hgb Hct MCV MCH MCHC RDW Plt Count Lymph % (Auto) [place] % (Auto) Lymph # (Auto) [place] # (Auto) Seg Neutrophils % Seg Neuts % (Manual) Lymphocytes % (Manual) Monocytes % (Manual) Nucleated RBC % Seg Neutrophils # Seg Neutrophils # Man Abs Lymphs (Manual) Lymphocytes # (Manual) PT INR APTT D-Dimer Heparin Anti-Xa Level ABG pH POC ABG pCO2 POC ABG pO2 ABG Oxyhemoglobin ABG Sodium ABG Potassium ABG Glucose Carboxyhemoglobin Sodium Potassium 5.4 H D Chloride Carbon Dioxide BUN 48 H 39 H Creatinine 2.2 H 2.7 H Glucose POC Glucose Calcium 8.0 L Phosphorus Ferritin Total Bilirubin AST ALT Alkaline Phosphatase Lactate Dehydrogenase Total Creatine Kinase Troponin T C-Reactive Protein NT-Pro-B Natriuret Pep Serum Total Protein Total Protein Albumin Cholesterol LDL Cholesterol Direct HDL Cholesterol PTH Intact Arterial Blood Glucose Urine WBC (Auto) Urine Creatinine Valproic Acid 17.8 L Heparin-induced Plt Ab Lymph Enumerat CD4/CD8 Absolute CD3 Count Absolute CD4 Count % CD8 Cells Absolute CD8 Count Absolute CD19 Count Coronavirus (PCR) HIV-1 RNA PCR copies/ml HIV-1 RNA (PCR) log 10/04/20 10/05/20 10/05/20 18:19 07:14 07:14 WBC RBC 2.44 L 2.36 L Hgb 8.0 L 7.8 L Hct 24.0 L 23.3 L MCV 98 H 99 H MCH 33 H 33 H MCHC RDW 15.6 H 16.0 H Plt Count Lymph % (Auto) [place] % (Auto) Lymph # (Auto) [place] # (Auto) Seg Neutrophils % Seg Neuts % (Manual) Lymphocytes % (Manual) Monocytes % (Manual) Nucleated RBC % Seg Neutrophils # Seg Neutrophils # Man Abs Lymphs (Manual) Lymphocytes # (Manual) PT INR APTT D-Dimer Heparin Anti-Xa Level ABG pH POC ABG pCO2 POC ABG pO2 ABG Oxyhemoglobin ABG Sodium ABG Potassium ABG Glucose Carboxyhemoglobin Sodium Potassium Chloride Carbon Dioxide BUN 36 H Creatinine 2.5 H Glucose POC Glucose Calcium Phosphorus Ferritin Total Bilirubin AST ALT Alkaline Phosphatase Lactate Dehydrogenase Total Creatine Kinase Troponin T C-Reactive Protein NT-Pro-B Natriuret Pep Serum Total Protein Total Protein Albumin Cholesterol LDL Cholesterol Direct HDL Cholesterol PTH Intact Arterial Blood Glucose Urine WBC (Auto) Urine Creatinine Valproic Acid Heparin-induced Plt Ab Lymph Enumerat CD4/CD8 Absolute CD3 Count Absolute CD4 Count % CD8 Cells Absolute CD8 Count Absolute CD19 Count Coronavirus (PCR) HIV-1 RNA PCR copies/ml HIV-1 RNA (PCR) log 10/06/20 08:04 WBC RBC Hgb Hct MCV MCH MCHC RDW Plt Count Lymph % (Auto) [place] % (Auto) Lymph # (Auto) [place] # (Auto) Seg Neutrophils % Seg Neuts % (Manual) Lymphocytes % (Manual) Monocytes % (Manual) Nucleated RBC % Seg Neutrophils # Seg Neutrophils # Man Abs Lymphs (Manual) Lymphocytes # (Manual) PT INR APTT D-Dimer Heparin Anti-Xa Level ABG pH POC ABG pCO2 POC ABG pO2 ABG Oxyhemoglobin ABG Sodium ABG Potassium ABG Glucose Carboxyhemoglobin Sodium Potassium 3.5 L Chloride 107.2 H Carbon Dioxide BUN 30 H Creatinine 2.2 H Glucose POC Glucose Calcium Phosphorus Ferritin Total Bilirubin AST ALT Alkaline Phosphatase Lactate Dehydrogenase Total Creatine Kinase Troponin T C-Reactive Protein NT-Pro-B Natriuret Pep Serum Total Protein Total Protein Albumin Cholesterol LDL Cholesterol Direct HDL Cholesterol PTH Intact Arterial Blood Glucose Urine WBC (Auto) Urine Creatinine Valproic Acid Heparin-induced Plt Ab Lymph Enumerat CD4/CD8 Absolute CD3 Count Absolute CD4 Count % CD8 Cells Absolute CD8 Count Absolute CD19 Count Coronavirus (PCR) HIV-1 RNA PCR copies/ml HIV-1 RNA (PCR) log Allied health notes reviewed: nursing
--- NOTE | 2020-10-07 09:37 | Progress Note ---
Assessment and Plan 1. Acute kidney injury: Vasomotor LOLI in the setting of shock. ATN likely. Renal US negative for hydro. Multiple bladder scan negative. Patient required hemodialysis due to significant decline in the renal function. Hemodialysis: 09/20, 09/21, 09/25. Monitor renal function. Creatinine level fuctuates. Renal prognosis is guarded. Avoid nephrotoxic agents. Meds dosage based on GFR. Monitor for [employer] needs. 2. FEN: Hyperkalemia, improved. Metabolic acidosis, improved, monitor. Monitor volume status and lytes. 3. Acute hypoxic respiratory failure: Covid test positive. Supplemental O2. 4. Acute CHF: Echocardiogram: EF 40-45%. CHF orderset / pathway. Monitor. 5. Atrial fibrillation with RVR: On Amio and Metoprolol. Followed by Cards. 6. Elevated troponin: Followed by Cards. 7. Coagulopathy: Trend. 8. Shock / Hypotension: Multifactorial, monitor. Off pressors. 9. Elevated Transaminases: Improved. 10. Metabolic encephalopathy: Monitor. 11. HIV. 12. Anemia, POA: Monitor. Subjective: Patient was not examined today. However the examination findings from other providers noted. The current and previous medical records are reviewed in detail as are laboratory and imaging data reviewed when appropriate. Medications being given are also reviewed. In addition the case has been discussed with the attending hospitalist and the nurse when needed. New renal recommendations as above. Subjective Date of service: 10/07/20 Principal diagnosis: Sepsis, AF with RVR Objective - Vital Signs Vital signs: Vital Signs - 12hr 10/06/20 10/07/20 10/07/20 22:33 05:08 08:43 Temperature 98.1 F 98.3 F Pulse Rate 43 L 114 H Respiratory 18 18 Rate Blood Pressure 111/74 97/73 104/80 O2 Sat by Pulse 97 100 Oximetry 10/07/20 09:10 Temperature Pulse Rate Respiratory Rate Blood Pressure 104/80 O2 Sat by Pulse Oximetry - Lab 10/07/20 06:45 10/07/20 06:45 Most recent lab results ABG pH 7.508 (7.320-7.450) H 09/17/20 10:28 ABG O2 Saturation 93.4 (0-100) 09/17/20 10:28 Calcium 8.4 mg/dL (8.4-10.2) 10/07/20 06:45 Phosphorus 2.90 mg/dL (2.5-4.5) 09/26/20 07:06 Magnesium 1.70 mg/dL (1.7-2.3) 09/26/20 07:06 Urine Creatinine 61.0 mg/dL (0.1-20.0) H 09/18/20 12:00 Urine Sodium 62 mmol/L 09/18/20 12:00 Medications & Allergies - Medications Allergies/Adverse Reactions: Allergies heparin Adverse Reaction (Verified 09/29/20 16:33) thrombocytopenia PF4 Home Medications: Home Medications Medication Instructions Recorded Confirmed Last Taken Type AtorvaSTATin [Lipitor] 20 mg PO QHS 09/18/20 09/18/20 Unknown History Dolutegravir [Tivicay] 50 mg PO DAILY 09/18/20 09/18/20 Unknown History Emtricitabine/Tenofov Alafenam 1 tab PO DAILY 09/18/20 09/18/20 Unknown History [Descovy 200-25 mg (Nf)] allopurinoL [Zyloprim] 300 mg PO QDAY 09/18/20 09/18/20 Unknown History Amiodarone [Cordarone 200 MG TAB] 200 mg PO DAILY #60 tablet 10/01/20 Unknown Rx Apixaban [Eliquis] 2.5 mg PO Q12HR #60 tablet 10/01/20 Unknown Rx Ascorbic Acid [Vitamin C] 500 mg PO BID #60 tablet 10/01/20 Unknown Rx Cholecalciferol Vit D3 [Vitamin D3 1,000 unit PO QDAY #30 tablet 10/01/20 Unknown Rx 1,000 UNIT TAB] Famotidine [Pepcid] 20 mg PO DAILY #30 tablet 10/01/20 Unknown Rx Midodrine [Proamatine] 5 mg PO TID@0800,1200,1600 #90 10/01/20 Unknown Rx tablet QUEtiapine [SEROquel] 25 mg PO BID #30 tablet 10/01/20 Unknown Rx Zinc Sulfate 220 mg PO QDAY #30 capsule 10/01/20 Unknown Rx carvediloL [Coreg] 3.125 mg PO BID #60 tablet 10/01/20 Unknown Rx haloperidoL [Haldol] 2 mg PO Q8H PRN #30 tablet 10/01/20 Unknown Rx Active Medications: Generic Name Dose Route Start Last Admin Trade Name Freq PRN Reason Stop Dose Admin Acetaminophen 650 mg 09/17/20 13:52 09/30/20 21:12 Acetaminophen 325 Mg Tab PO 650 mg Q4H PRN Administration Pain MILD(1-3)/Fever >100.5/ANGEL Albuterol 2.5 mg 09/17/20 13:52 09/17/20 20:47 Albuterol 2.5 Mg/3 Ml Nebu IH 2.5 mg Q4HRT PRN Administration Shortness Of Breath Amiodarone HCl 200 mg 10/01/20 22:00 10/06/20 21:00 Amiodarone 200 Mg Tab PO 200 mg BID EDIE Administration Lipase/Protease/Amylase 1 each 09/20/20 13:10 Lipase 10,500/Protease 25,000/Amylase 43,750 (Units) Dr Patrick FEEDTUBE PRN PRN For Clogged Feeding Tube Apixaban 5 mg 10/05/20 22:00 10/06/20 20:59 Apixaban 5 Mg Tab PO 5 mg Q12HR EDIE Administration Ascorbic Acid 500 mg 09/20/20 22:00 10/06/20 20:59 Ascorbic Acid 500 Mg Tab PO 500 mg BID EDIE Administration Cholecalciferol 1,000 unit 09/21/20 10:00 10/06/20 09:51 Cholecalciferol (Vit D3) 1000 Unit (25 Mcg) Tab PO 1,000 unit QDAY EDIE Administration Docusate Sodium 100 mg 10/05/20 11:00 10/06/20 21:12 Docusate Sodium 100 Mg/10 Ml Oral Liqd PO 100 mg BID EDIE Administration Emtricitabine 200 mg 09/30/20 11:00 10/06/20 10:52 Emtricitabine 200 Mg Cap PO 200 mg Q48H EDIE Administration Famotidine 20 mg 09/24/20 10:00 10/06/20 09:56 Famotidine 20 Mg Tab PO 20 mg DAILY EDIE Administration Haloperidol Lactate 5 mg 10/01/20 11:34 10/04/20 13:32 Haloperidol Lactate 5 Mg/1 Ml Inj IM 5 mg Q6H PRN Administration Agitation Heparin Sodium (Porcine) 3,000 unit 09/20/20 10:06 Heparin 10,000 Units/10 Ml Vial IV VIRGIL PRN hemodialysis Sodium Chloride 100 mls @ 999 mls/hr 09/20/20 10:06 Nacl 0.9% IV VIRGIL PRN Hypotension Metoprolol Tartrate 5 mg 09/19/20 19:06 09/24/20 10:59 Metoprolol Tartrate 5 Mg/5 Ml Inj IV 5 mg Q8HR PRN Administration HR > 135 Minute Metoprolol Tartrate 12.5 mg 10/05/20 14:00 10/07/20 09:10 Metoprolol Tartrate 25 Mg Tab PO Not Given TID EDIE Midodrine 10 mg 10/07/20 08:00 Midodrine 5 Mg Tab PO TID@0800,1200,1600 [facility] Ondansetron HCl 4 mg 09/17/20 13:52 Ondansetron 4 Mg/2 Ml Inj IV Q8H PRN Nausea And Vomiting Quetiapine Fumarate 12.5 mg 10/03/20 22:00 10/06/20 20:59 Quetiapine 25 Mg Tab PO 12.5 mg QHS EDIE Administration Quetiapine Fumarate 12.5 mg 10/04/20 10:00 10/06/20 09:55 Quetiapine 25 Mg Tab PO 12.5 mg QAM EDIE Administration Simple Syrup 15 ml 09/20/20 13:10 Simple Syrup 15 Ml FEEDTUBE PRN PRN Hypoglycemia Simple Syrup 30 ml 09/20/20 13:10 Simple Syrup 15 Ml FEEDTUBE PRN PRN Hypoglycemia Sodium Bicarbonate 325 mg 09/20/20 13:10 Sodium Bicarbonate 325 Mg Tab FEEDTUBE PRN PRN For Clogged Feeding Tube Sodium Chloride 10 ml 09/17/20 22:00 10/06/20 21:12 Sodium Chloride 0.9% 10 Ml Flush Syringe IV 10 ml BID EDIE Administration Sodium Chloride 10 ml 09/17/20 13:52 09/24/20 09:15 Sodium Chloride 0.9% 10 Ml Flush Syringe IV 10 ml PRN PRN Administration LINE FLUSH Tenofovir Disoproxil Fumarate 300 mg 09/30/20 11:00 10/06/20 10:52 Tenofovir 300 Mg Tab PO 300 mg Q48H EDIE Administration Valproic Acid 250 mg 10/03/20 22:00 10/06/20 21:13 Valproic Acid 250 Mg Cap PO 250 mg BID EDIE Administration Zinc Sulfate 220 mg 09/21/20 10:00 10/06/20 09:51 Zinc Sulfate 220 Mg Cap PO 220 mg QDAY EDIE Administration
[2020-10-07] MEDS: CHOLECALCIFEROL (VIT D3) 1000 UNIT (25 mcg) TAB PO SCH (10:02)
[2020-10-07] MEDS: DOCUSATE SODIUM 100 MG/10 ML ORAL LIQD PO SCH ×2 (10:02→22:26)
[2020-10-07] MEDS: APIXABAN 5 MG TAB PO SCH ×2 (10:02→22:27)
[2020-10-07] MEDS: AMIODARONE 200 MG TAB PO SCH ×2 (10:02→22:27)
[2020-10-07] MEDS: MIDODRINE 5 MG TAB PO SCH ×3 (10:03→17:08)
[2020-10-07] MEDS: FAMOTIDINE 20 MG TAB PO SCH (10:03)
[2020-10-07] MEDS: ASCORBIC ACID 500 MG TAB PO SCH ×2 (10:03→22:26)
[2020-10-07] MEDS: ZINC SULFATE 220 MG CAP PO SCH (10:03)
[2020-10-07] MEDS: QUEtiapine 25 MG TAB PO SCH ×2 (10:05→22:27)
[2020-10-07] MEDS: DOLUTEGRAVIR 50 MG TAB PO SCH (10:13)
[2020-10-07] MEDS: VALPROIC ACID 250 MG CAP PO SCH ×2 (10:13→22:28)
--- NOTE | 2020-10-07 12:36 | Progress Note ---
Assessment and Plan Acute hypoxemic respiratory failure. Atrial fibrillation with rapid ventricular response. Gram negative bacteremia Acute congestive heart failure exacerbation. Acute on chronic kidney injury. Anemia that is microcytic. Coagulopathy appears to be acquired. Respiratory alkalosis. Mild metabolic acidosis. Possible severe sepsis with shock due to a urinary tract infection. 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 and advance diet as tolerated (pureed with thin liquids) - s/p AB's per ID recommendations - continue care as below otherwise; - continue to wean supplemental oxygen for target O2 sat's > 92% acutely - Aspiration precautions - prn bronchodilators with pulmonary hygiene per RT - continue accuchecks with glycemic control per SSI for target blood glucose of < 180 mg/dL; avoid hypoglycemia - avoid nephrotoxins, renally dose all medications - continue to avoid benzodiazepine's, reduce the possibility of delirium - prn analgesia per pain score - Maintenance of sleep-wake cycle, avoid delirium - G.I. & VTE prophylaxis - PT/OT/ROM exercises - continue mobility protocols for pressure ulcer prophylaxis - Monitor hemodynamics closely - continue other care per attending / other consultants - discharge planning ongoing concurrently COVID SPECIFIC INTERVENTIONS - Remdesivir as per ID/Pulmonary developed protocols (not given due to LOLI) - systemic steroids for severe COVID-19 infection (s/p Decadron) - follow repeat COVID tests results - zinc and vitamin C supplementation - Monitor inflammatory markers per facility protocol - ferritin, Ddimer, CRP - therapeutic anticoagulation per system Protocol based on d-dimer and clinical considerations - Continue contact and airborne isolation .... Re-evaluate in am & prn Subjective Date of service: 10/03/20 Principal diagnosis: Acute Hypoxemic Resp Failure; COVID-19 infxn; Septic Shock; A-Fib with RVR Interval history: Patient is seen today for: Acute hypoxemic respiratory failure; A-fib with RVR; AE-CHF; LOLI on CKD; Severe sepsis with shock; UTI Seen and examined at bedside; 24hour events reviewed; nursing and respiratory care staff consulted; no adverse overnight events reported to me; resting peacefully in bed; no new issues today Objective Vital Signs - 12hr 10/03/20 10/03/20 10/03/20 04:45 11:18 11:33 Temperature 98.0 F 98.9 F Pulse Rate 68 Respiratory 18 20 Rate Blood Pressure 90/70 107/63 98/68 O2 Sat by Pulse 89 Oximetry Constitutional: no acute distress, alert, other (elderly male without increased respiratory effort at rest) Eyes: non-icteric ENT: oropharynx moist Neck: supple, no lymphadenopathy, no JVD Effort: mildly labored Ascultation: Bilateral: rhonchi Percussion: Bilateral: not dull Cardiovascular: irregular rhythm Gastrointestinal: normoactive bowel sounds, soft, non-tender, non-distended Integumentary: normal Extremities: no cyanosis, no edema, pulses normal, no ischemia or petechiae Neurologic: non-focal exam (grossly), pupils equal and round, CN II-XII normal, motor strength normal and, other (mild delirium) Psychiatric: other (mild delirium) CBC and BMP: 10/07/20 06:45 10/07/20 06:45 ABG, PT/INR, D-dimer: ABG ABG pH 7.508 (7.320-7.450) H 09/17/20 10:28 POC ABG pCO2 22.8 mmHg (32.0-48.0) L 09/17/20 10:28 POC ABG pO2 66.8 mmHg (83-108) L 09/17/20 10:28 POC ABG HCO3 17.7 09/17/20 10:28 ABG O2 Saturation 93.4 (0-100) 09/17/20 10:28 PT/INR, D-dimer PT 15.7 Sec. (12.2-14.9) H 09/24/20 12:13 INR 1.27 (0.87-1.13) H 09/24/20 12:13 D-Dimer 1772.86 ng/mlDDU (0-234) H 09/24/20 05:00 Abnormal lab findings: Abnormal Labs 09/17/20 09/17/20 09/17/20 10:28 10:47 10:47 WBC 11.1 H RBC 3.44 L Hgb 11.2 L Hct 32.8 L MCV 95 H MCH MCHC Plt Count Lymph % (Auto) [place] % (Auto) Lymph # (Auto) [place] # (Auto) Seg Neutrophils % Seg Neuts % (Manual) Lymphocytes % (Manual) 4.0 L Monocytes % (Manual) Nucleated RBC % Seg Neutrophils # Seg Neutrophils # Man 10.7 H Abs Lymphs (Manual) Lymphocytes # (Manual) 0.4 L PT 32.9 H INR 3.16 H APTT 51.1 H D-Dimer Heparin Anti-Xa Level ABG pH 7.508 H POC ABG pCO2 22.8 L POC ABG pO2 66.8 L ABG Oxyhemoglobin 92.7 L ABG Sodium 127.4 L ABG Potassium 4.7 H ABG Glucose 121 H Carboxyhemoglobin 0.4 L Sodium Potassium Chloride Carbon Dioxide BUN Creatinine Glucose POC Glucose Calcium Phosphorus Ferritin Total Bilirubin AST ALT Alkaline Phosphatase Lactate Dehydrogenase Total Creatine Kinase Troponin T C-Reactive Protein NT-Pro-B Natriuret Pep Total Protein Albumin Cholesterol LDL Cholesterol Direct HDL Cholesterol PTH Intact Arterial Blood Glucose 121 H Urine WBC (Auto) Urine Creatinine Valproic Acid Heparin-induced Plt Ab Lymph Enumerat CD4/CD8 Absolute CD3 Count Absolute CD4 Count % CD8 Cells Absolute CD8 Count Absolute CD19 Count Coronavirus (PCR) HIV-1 RNA PCR copies/ml HIV-1 RNA (PCR) log 09/17/20 09/17/20 09/17/20 10:47 10:47 13:54 WBC RBC Hgb Hct MCV MCH MCHC Plt Count Lymph % (Auto) [place] % (Auto) Lymph # (Auto) [place] # (Auto) Seg Neutrophils % Seg Neuts % (Manual) Lymphocytes % (Manual) Monocytes % (Manual) Nucleated RBC % Seg Neutrophils # Seg Neutrophils # Man Abs Lymphs (Manual) Lymphocytes # (Manual) PT INR APTT D-Dimer Heparin Anti-Xa Level ABG pH POC ABG pCO2 POC ABG pO2 ABG Oxyhemoglobin ABG Sodium ABG Potassium ABG Glucose Carboxyhemoglobin Sodium 125 L Potassium Chloride 95.3 L Carbon Dioxide 17 L BUN 64 H Creatinine 4.6 H D Glucose 104 H POC Glucose Calcium Phosphorus Ferritin Total Bilirubin AST 69 H ALT Alkaline Phosphatase Lactate Dehydrogenase Total Creatine Kinase Troponin T 0.061 H D 0.058 H C-Reactive Protein NT-Pro-B Natriuret Pep 20221 H Total Protein Albumin 1.9 L Cholesterol 48 L LDL Cholesterol Direct 4 L HDL Cholesterol 9 L PTH Intact Arterial Blood Glucose Urine WBC (Auto) Urine Creatinine Valproic Acid Heparin-induced Plt Ab Lymph Enumerat CD4/CD8 Absolute CD3 Count Absolute CD4 Count % CD8 Cells Absolute CD8 Count Absolute CD19 Count Coronavirus (PCR) HIV-1 RNA PCR copies/ml HIV-1 RNA (PCR) log 09/17/20 09/17/20 09/17/20 16:36 17:35 17:35 WBC RBC 3.25 L Hgb 10.7 L Hct 31.1 L MCV 96 H MCH 33 H MCHC Plt Count Lymph % (Auto) [place] % (Auto) Lymph # (Auto) [place] # (Auto) Seg Neutrophils % Seg Neuts % (Manual) Lymphocytes % (Manual) Monocytes % (Manual) Nucleated RBC % Seg Neutrophils # Seg Neutrophils # Man Abs Lymphs (Manual) Lymphocytes # (Manual) PT 31.9 H INR 3.04 H APTT 50.9 H D-Dimer Heparin Anti-Xa Level ABG pH POC ABG pCO2 POC ABG pO2 ABG Oxyhemoglobin ABG Sodium ABG Potassium ABG Glucose Carboxyhemoglobin Sodium Potassium Chloride Carbon Dioxide BUN Creatinine Glucose POC Glucose Calcium Phosphorus Ferritin Total Bilirubin AST ALT Alkaline Phosphatase Lactate Dehydrogenase Total Creatine Kinase Troponin T 0.057 H C-Reactive Protein NT-Pro-B Natriuret Pep Total Protein Albumin Cholesterol LDL Cholesterol Direct HDL Cholesterol PTH Intact Arterial Blood Glucose Urine WBC (Auto) Urine Creatinine Valproic Acid Heparin-induced Plt Ab Lymph Enumerat CD4/CD8 Absolute CD3 Count Absolute CD4 Count % CD8 Cells Absolute CD8 Count Absolute CD19 Count Coronavirus (PCR) HIV-1 RNA PCR copies/ml HIV-1 RNA (PCR) log 09/17/20 09/18/20 09/18/20 17:35 03:19 03:19 WBC RBC 3.32 L Hgb 10.9 L Hct 32.0 L MCV 96 H MCH 33 H MCHC Plt Count 138 L Lymph % (Auto) [place] % (Auto) Lymph # (Auto) [place] # (Auto) Seg Neutrophils % Seg Neuts % (Manual) 95.0 H Lymphocytes % (Manual) 3.0 L Monocytes % (Manual) Nucleated RBC % Seg Neutrophils # Seg Neutrophils # Man 8.1 H Abs Lymphs (Manual) Lymphocytes # (Manual) 0.3 L PT INR APTT D-Dimer Heparin Anti-Xa Level ABG pH POC ABG pCO2 POC ABG pO2 ABG Oxyhemoglobin ABG Sodium ABG Potassium ABG Glucose Carboxyhemoglobin Sodium Potassium Chloride Carbon Dioxide 16 L BUN 70 H Creatinine 4.6 H 4.7 H Glucose 104 H POC Glucose Calcium 8.2 L Phosphorus Ferritin Total Bilirubin 1.60 H AST 128 H ALT 67 H Alkaline Phosphatase Lactate Dehydrogenase Total Creatine Kinase Troponin T C-Reactive Protein NT-Pro-B Natriuret Pep Total Protein 5.2 L D Albumin 2.5 L Cholesterol LDL Cholesterol Direct HDL Cholesterol PTH Intact Arterial Blood Glucose Urine WBC (Auto) Urine Creatinine Valproic Acid Heparin-induced Plt Ab Lymph Enumerat CD4/CD8 Absolute CD3 Count Absolute CD4 Count % CD8 Cells Absolute CD8 Count Absolute CD19 Count Coronavirus (PCR) HIV-1 RNA PCR copies/ml HIV-1 RNA (PCR) log 09/18/20 09/18/20 09/18/20 09:39 12:00 12:00 WBC RBC Hgb Hct MCV MCH MCHC Plt Count Lymph % (Auto) [place] % (Auto) Lymph # (Auto) [place] # (Auto) Seg Neutrophils % Seg Neuts % (Manual) Lymphocytes % (Manual) Monocytes % (Manual) Nucleated RBC % Seg Neutrophils # Seg Neutrophils # Man Abs Lymphs (Manual) Lymphocytes # (Manual) PT INR APTT D-Dimer Heparin Anti-Xa Level ABG pH POC ABG pCO2 POC ABG pO2 ABG Oxyhemoglobin ABG Sodium ABG Potassium ABG Glucose Carboxyhemoglobin Sodium Potassium Chloride Carbon Dioxide BUN Creatinine Glucose POC Glucose Calcium Phosphorus Ferritin Total Bilirubin AST ALT Alkaline Phosphatase Lactate Dehydrogenase Total Creatine Kinase Troponin T C-Reactive Protein NT-Pro-B Natriuret Pep Total Protein Albumin Cholesterol LDL Cholesterol Direct HDL Cholesterol PTH Intact Arterial Blood Glucose Urine WBC (Auto) 71.0 H Urine Creatinine 61.0 H Valproic Acid Heparin-induced Plt Ab Lymph Enumerat CD4/CD8 Absolute CD3 Count Absolute CD4 Count % CD8 Cells Absolute CD8 Count Absolute CD19 Count Coronavirus (PCR) Positive A HIV-1 RNA PCR copies/ml HIV-1 RNA (PCR) log 09/18/20 09/18/20 09/18/20 15:07 15:07 18:33 WBC RBC Hgb 10.7 L Hct 31.3 L MCV MCH MCHC Plt Count Lymph % (Auto) [place] % (Auto) Lymph # (Auto) [place] # (Auto) Seg Neutrophils % Seg Neuts % (Manual) Lymphocytes % (Manual) Monocytes % (Manual) Nucleated RBC % Seg Neutrophils # Seg Neutrophils # Man Abs Lymphs (Manual) Lymphocytes # (Manual) PT 20.3 H INR 1.73 H APTT 40.8 H D-Dimer Heparin Anti-Xa Level 1.09 H ABG pH POC ABG pCO2 POC ABG pO2 ABG Oxyhemoglobin ABG Sodium ABG Potassium ABG Glucose Carboxyhemoglobin Sodium Potassium Chloride Carbon Dioxide BUN Creatinine Glucose POC Glucose Calcium Phosphorus Ferritin Total Bilirubin AST ALT Alkaline Phosphatase Lactate Dehydrogenase Total Creatine Kinase Troponin T C-Reactive Protein NT-Pro-B Natriuret Pep Total Protein Albumin Cholesterol LDL Cholesterol Direct HDL Cholesterol PTH Intact Arterial Blood Glucose Urine WBC (Auto) Urine Creatinine Valproic Acid Heparin-induced Plt Ab Lymph Enumerat CD4/CD8 Absolute CD3 Count Absolute CD4 Count % CD8 Cells Absolute CD8 Count Absolute CD19 Count Coronavirus (PCR) HIV-1 RNA PCR copies/ml HIV-1 RNA (PCR) log 09/19/20 09/19/20 09/19/20 03:30 03:30 03:30 WBC RBC 3.29 L Hgb 10.9 L Hct 30.9 L MCV MCH 33 H MCHC 35 H Plt Count Lymph % (Auto) [place] % (Auto) Lymph # (Auto) [place] # (Auto) Seg Neutrophils % Seg Neuts % (Manual) Lymphocytes % (Manual) Monocytes % (Manual) Nucleated RBC % Seg Neutrophils # Seg Neutrophils # Man Abs Lymphs (Manual) Lymphocytes # (Manual) PT INR APTT D-Dimer Heparin Anti-Xa Level ABG pH POC ABG pCO2 POC ABG pO2 ABG Oxyhemoglobin ABG Sodium ABG Potassium ABG Glucose Carboxyhemoglobin Sodium 133 L Potassium Chloride Carbon Dioxide 17 L BUN 94 H Creatinine 5.0 H Glucose 120 H POC Glucose Calcium Phosphorus 6.30 H Ferritin Total Bilirubin 2.40 H AST 163 H ALT 109 H Alkaline Phosphatase 160 H Lactate Dehydrogenase Total Creatine Kinase 20 L Troponin T C-Reactive Protein NT-Pro-B Natriuret Pep Total Protein 6.2 L Albumin 2.0 L Cholesterol LDL Cholesterol Direct HDL Cholesterol PTH Intact 161.4 H Arterial Blood Glucose Urine WBC (Auto) Urine Creatinine Valproic Acid Heparin-induced Plt Ab Lymph Enumerat CD4/CD8 Absolute CD3 Count Absolute CD4 Count % CD8 Cells Absolute CD8 Count Absolute CD19 Count Coronavirus (PCR) HIV-1 RNA PCR copies/ml HIV-1 RNA (PCR) log 09/19/20 09/19/20 09/19/20 06:35 13:35 13:35 WBC RBC Hgb Hct MCV MCH MCHC Plt Count Lymph % (Auto) [place] % (Auto) Lymph # (Auto) [place] # (Auto) Seg Neutrophils % Seg Neuts % (Manual) Lymphocytes % (Manual) Monocytes % (Manual) Nucleated RBC % Seg Neutrophils # Seg Neutrophils # Man Abs Lymphs (Manual) 223 L Lymphocytes # (Manual) PT INR APTT D-Dimer Heparin Anti-Xa Level ABG pH POC ABG pCO2 POC ABG pO2 ABG Oxyhemoglobin ABG Sodium ABG Potassium ABG Glucose Carboxyhemoglobin Sodium Potassium Chloride Carbon Dioxide BUN Creatinine Glucose POC Glucose 123 H Calcium Phosphorus Ferritin Total Bilirubin AST ALT Alkaline Phosphatase Lactate Dehydrogenase Total Creatine Kinase Troponin T C-Reactive Protein NT-Pro-B Natriuret Pep Total Protein Albumin Cholesterol LDL Cholesterol Direct HDL Cholesterol PTH Intact Arterial Blood Glucose Urine WBC (Auto) Urine Creatinine Valproic Acid Heparin-induced Plt Ab Lymph Enumerat CD4/CD8 0.70 L Absolute CD3 Count 175 L Absolute CD4 Count 70 L % CD8 Cells 45 H Absolute CD8 Count 101 L Absolute CD19 Count 26 L Coronavirus (PCR) HIV-1 RNA PCR copies/ml 67 H HIV-1 RNA (PCR) log 1.83 H 09/19/20 09/20/20 09/20/20 23:37 04:00 04:00 WBC RBC 3.43 L Hgb 11.1 L Hct 32.2 L MCV MCH MCHC Plt Count 131 L Lymph % (Auto) [place] % (Auto) Lymph # (Auto) [place] # (Auto) Seg Neutrophils % Seg Neuts % (Manual) 88.0 H Lymphocytes % (Manual) 3.0 L Monocytes % (Manual) 9.0 H Nucleated RBC % Seg Neutrophils # Seg Neutrophils # Man 8.2 H Abs Lymphs (Manual) Lymphocytes # (Manual) 0.3 L PT INR APTT D-Dimer Heparin Anti-Xa Level 0.10 L ABG pH POC ABG pCO2 POC ABG pO2 ABG Oxyhemoglobin ABG Sodium ABG Potassium ABG Glucose Carboxyhemoglobin Sodium Potassium Chloride Carbon Dioxide BUN Creatinine Glucose POC Glucose 135 H Calcium Phosphorus Ferritin Total Bilirubin AST ALT Alkaline Phosphatase Lactate Dehydrogenase Total Creatine Kinase Troponin T C-Reactive Protein NT-Pro-B Natriuret Pep Total Protein Albumin Cholesterol LDL Cholesterol Direct HDL Cholesterol PTH Intact Arterial Blood Glucose Urine WBC (Auto) Urine Creatinine Valproic Acid Heparin-induced Plt Ab Lymph Enumerat CD4/CD8 Absolute CD3 Count Absolute CD4 Count % CD8 Cells Absolute CD8 Count Absolute CD19 Count Coronavirus (PCR) HIV-1 RNA PCR copies/ml HIV-1 RNA (PCR) log 09/20/20 09/20/20 09/20/20 04:00 05:37 11:20 WBC RBC Hgb Hct MCV MCH MCHC Plt Count Lymph % (Auto) [place] % (Auto) Lymph # (Auto) [place] # (Auto) Seg Neutrophils % Seg Neuts % (Manual) Lymphocytes % (Manual) Monocytes % (Manual) Nucleated RBC % Seg Neutrophils # Seg Neutrophils # Man Abs Lymphs (Manual) Lymphocytes # (Manual) PT INR APTT D-Dimer Heparin Anti-Xa Level ABG pH POC ABG pCO2 POC ABG pO2 ABG Oxyhemoglobin ABG Sodium ABG Potassium ABG Glucose Carboxyhemoglobin Sodium Potassium Chloride Carbon Dioxide 16 L BUN 119 H Creatinine 6.2 H Glucose 136 H POC Glucose 137 H 108 H Calcium Phosphorus Ferritin Total Bilirubin AST ALT Alkaline Phosphatase Lactate Dehydrogenase Total Creatine Kinase Troponin T C-Reactive Protein NT-Pro-B Natriuret Pep Total Protein Albumin Cholesterol LDL Cholesterol Direct HDL Cholesterol PTH Intact Arterial Blood Glucose Urine WBC (Auto) Urine Creatinine Valproic Acid Heparin-induced Plt Ab Lymph Enumerat CD4/CD8 Absolute CD3 Count Absolute CD4 Count % CD8 Cells Absolute CD8 Count Absolute CD19 Count Coronavirus (PCR) HIV-1 RNA PCR copies/ml HIV-1 RNA (PCR) log 09/20/20 09/20/20 09/20/20 17:10 17:10 17:10 WBC RBC Hgb Hct MCV MCH MCHC Plt Count Lymph % (Auto) [place] % (Auto) Lymph # (Auto) [place] # (Auto) Seg Neutrophils % Seg Neuts % (Manual) Lymphocytes % (Manual) Monocytes % (Manual) Nucleated RBC % Seg Neutrophils # Seg Neutrophils # Man Abs Lymphs (Manual) Lymphocytes # (Manual) PT INR APTT D-Dimer 4271.58 H Heparin Anti-Xa Level ABG pH POC ABG pCO2 POC ABG pO2 ABG Oxyhemoglobin ABG Sodium ABG Potassium ABG Glucose Carboxyhemoglobin Sodium Potassium Chloride Carbon Dioxide BUN Creatinine 6.0 H Glucose POC Glucose Calcium Phosphorus Ferritin 696.6 H Total Bilirubin AST ALT Alkaline Phosphatase Lactate Dehydrogenase Total Creatine Kinase Troponin T C-Reactive Protein NT-Pro-B Natriuret Pep Total Protein Albumin Cholesterol LDL Cholesterol Direct HDL Cholesterol PTH Intact Arterial Blood Glucose Urine WBC (Auto) Urine Creatinine Valproic Acid Heparin-induced Plt Ab Lymph Enumerat CD4/CD8 Absolute CD3 Count Absolute CD4 Count % CD8 Cells Absolute CD8 Count Absolute CD19 Count Coronavirus (PCR) HIV-1 RNA PCR copies/ml HIV-1 RNA (PCR) log 09/20/20 09/20/20 09/20/20 17:10 18:21 23:14 WBC RBC Hgb Hct MCV MCH MCHC Plt Count Lymph % (Auto) [place] % (Auto) Lymph # (Auto) [place] # (Auto) Seg Neutrophils % Seg Neuts % (Manual) Lymphocytes % (Manual) Monocytes % (Manual) Nucleated RBC % Seg Neutrophils # Seg Neutrophils # Man Abs Lymphs (Manual) Lymphocytes # (Manual) PT INR APTT D-Dimer Heparin Anti-Xa Level ABG pH POC ABG pCO2 POC ABG pO2 ABG Oxyhemoglobin ABG Sodium ABG Potassium ABG Glucose Carboxyhemoglobin Sodium Potassium Chloride Carbon Dioxide BUN Creatinine Glucose POC Glucose 129 H 170 H Calcium Phosphorus Ferritin Total Bilirubin AST ALT Alkaline Phosphatase Lactate Dehydrogenase 209 H Total Creatine Kinase Troponin T C-Reactive Protein 10.60 H NT-Pro-B Natriuret Pep Total Protein Albumin Cholesterol LDL Cholesterol Direct HDL Cholesterol PTH Intact Arterial Blood Glucose Urine WBC (Auto) Urine Creatinine Valproic Acid Heparin-induced Plt Ab Lymph Enumerat CD4/CD8 Absolute CD3 Count Absolute CD4 Count % CD8 Cells Absolute CD8 Count Absolute CD19 Count Coronavirus (PCR) HIV-1 RNA PCR copies/ml HIV-1 RNA (PCR) log 09/21/20 09/21/20 09/21/20 05:35 17:09 23:18 WBC RBC Hgb Hct MCV MCH MCHC Plt Count Lymph % (Auto) [place] % (Auto) Lymph # (Auto) [place] # (Auto) Seg Neutrophils % Seg Neuts % (Manual) Lymphocytes % (Manual) Monocytes % (Manual) Nucleated RBC % Seg Neutrophils # Seg Neutrophils # Man Abs Lymphs (Manual) Lymphocytes # (Manual) PT INR APTT D-Dimer Heparin Anti-Xa Level ABG pH POC ABG pCO2 POC ABG pO2 ABG Oxyhemoglobin ABG Sodium ABG Potassium ABG Glucose Carboxyhemoglobin Sodium Potassium Chloride Carbon Dioxide BUN Creatinine Glucose POC Glucose 170 H 140 H 139 H Calcium Phosphorus Ferritin Total Bilirubin AST ALT Alkaline Phosphatase Lactate Dehydrogenase Total Creatine Kinase Troponin T C-Reactive Protein NT-Pro-B Natriuret Pep Total Protein Albumin Cholesterol LDL Cholesterol Direct HDL Cholesterol PTH Intact Arterial Blood Glucose Urine WBC (Auto) Urine Creatinine Valproic Acid Heparin-induced Plt Ab Lymph Enumerat CD4/CD8 Absolute CD3 Count Absolute CD4 Count % CD8 Cells Absolute CD8 Count Absolute CD19 Count Coronavirus (PCR) HIV-1 RNA PCR copies/ml HIV-1 RNA (PCR) log 09/21/20 09/21/20 09/21/20 Unknown Unknown Unknown WBC RBC 3.56 L Hgb 11.3 L Hct 33.2 L MCV MCH MCHC Plt Count 125 L Lymph % (Auto) [place] % (Auto) Lymph # (Auto) [place] # (Auto) Seg Neutrophils % Seg Neuts % (Manual) 90.0 H Lymphocytes % (Manual) 8.0 L Monocytes % (Manual) Nucleated RBC % 1.0 H Seg Neutrophils # Seg Neutrophils # Man 9.4 H Abs Lymphs (Manual) Lymphocytes # (Manual) 0.8 L PT 16.8 H INR 1.36 H APTT D-Dimer Heparin Anti-Xa Level ABG pH POC ABG pCO2 POC ABG pO2 ABG Oxyhemoglobin ABG Sodium ABG Potassium ABG Glucose Carboxyhemoglobin Sodium Potassium Chloride Carbon Dioxide BUN 83 H Creatinine 4.3 H Glucose 163 H POC Glucose Calcium Phosphorus Ferritin Total Bilirubin 2.40 H AST ALT 57 H Alkaline Phosphatase < 5 L Lactate Dehydrogenase Total Creatine Kinase Troponin T C-Reactive Protein NT-Pro-B Natriuret Pep Total Protein Albumin 1.9 L Cholesterol LDL Cholesterol Direct HDL Cholesterol PTH Intact Arterial Blood Glucose Urine WBC (Auto) Urine Creatinine Valproic Acid Heparin-induced Plt Ab Lymph Enumerat CD4/CD8 Absolute CD3 Count Absolute CD4 Count % CD8 Cells Absolute CD8 Count Absolute CD19 Count Coronavirus (PCR) HIV-1 RNA PCR copies/ml HIV-1 RNA (PCR) log 09/22/20 09/22/20 09/22/20 05:38 05:38 05:38 WBC 15.8 H RBC 3.36 L Hgb 10.8 L Hct 31.0 L MCV MCH MCHC 35 H Plt Count 68 L Lymph % (Auto) 3.1 L [place] % (Auto) 10.7 H Lymph # (Auto) 0.5 L [place] # (Auto) 1.7 H Seg Neutrophils % 85.9 H Seg Neuts % (Manual) Lymphocytes % (Manual) Monocytes % (Manual) Nucleated RBC % Seg Neutrophils # 13.6 H Seg Neutrophils # Man Abs Lymphs (Manual) Lymphocytes # (Manual) PT INR APTT D-Dimer 3281.49 H Heparin Anti-Xa Level ABG pH POC ABG pCO2 POC ABG pO2 ABG Oxyhemoglobin ABG Sodium ABG Potassium ABG Glucose Carboxyhemoglobin Sodium Potassium Chloride Carbon Dioxide BUN 61 H Creatinine 3.1 H Glucose 129 H POC Glucose Calcium Phosphorus Ferritin Total Bilirubin AST ALT Alkaline Phosphatase Lactate Dehydrogenase 277 H Total Creatine Kinase Troponin T C-Reactive Protein 6.60 H NT-Pro-B Natriuret Pep Total Protein Albumin Cholesterol LDL Cholesterol Direct HDL Cholesterol PTH Intact Arterial Blood Glucose Urine WBC (Auto) Urine Creatinine Valproic Acid Heparin-induced Plt Ab Lymph Enumerat CD4/CD8 Absolute CD3 Count Absolute CD4 Count % CD8 Cells Absolute CD8 Count Absolute CD19 Count Coronavirus (PCR) HIV-1 RNA PCR copies/ml HIV-1 RNA (PCR) log 09/22/20 09/22/20 09/22/20 05:38 05:44 11:26 WBC RBC Hgb Hct MCV MCH MCHC Plt Count Lymph % (Auto) [place] % (Auto) Lymph # (Auto) [place] # (Auto) Seg Neutrophils % Seg Neuts % (Manual) Lymphocytes % (Manual) Monocytes % (Manual) Nucleated RBC % Seg Neutrophils # Seg Neutrophils # Man Abs Lymphs (Manual) Lymphocytes # (Manual) PT INR APTT D-Dimer Heparin Anti-Xa Level ABG pH POC ABG pCO2 POC ABG pO2 ABG Oxyhemoglobin ABG Sodium ABG Potassium ABG Glucose Carboxyhemoglobin Sodium Potassium Chloride Carbon Dioxide BUN Creatinine Glucose POC Glucose 112 H 131 H Calcium Phosphorus Ferritin 927.8 H Total Bilirubin AST ALT Alkaline Phosphatase Lactate Dehydrogenase Total Creatine Kinase Troponin T C-Reactive Protein NT-Pro-B Natriuret Pep Total Protein Albumin Cholesterol LDL Cholesterol Direct HDL Cholesterol PTH Intact Arterial Blood Glucose Urine WBC (Auto) Urine Creatinine Valproic Acid Heparin-induced Plt Ab Lymph Enumerat CD4/CD8 Absolute CD3 Count Absolute CD4 Count % CD8 Cells Absolute CD8 Count Absolute CD19 Count Coronavirus (PCR) HIV-1 RNA PCR copies/ml HIV-1 RNA (PCR) log 09/22/20 09/22/20 09/22/20 15:12 15:12 15:12 WBC RBC Hgb Hct MCV MCH MCHC Plt Count Lymph % (Auto) [place] % (Auto) Lymph # (Auto) [place] # (Auto) Seg Neutrophils % Seg Neuts % (Manual) Lymphocytes % (Manual) Monocytes % (Manual) Nucleated RBC % Seg Neutrophils # Seg Neutrophils # Man Abs Lymphs (Manual) Lymphocytes # (Manual) PT 17.3 H INR 1.42 H APTT D-Dimer Heparin Anti-Xa Level ABG pH POC ABG pCO2 POC ABG pO2 ABG Oxyhemoglobin ABG Sodium ABG Potassium ABG Glucose Carboxyhemoglobin Sodium Potassium Chloride Carbon Dioxide BUN Creatinine 3.0 H Glucose POC Glucose Calcium Phosphorus Ferritin Total Bilirubin AST ALT Alkaline Phosphatase Lactate Dehydrogenase Total Creatine Kinase Troponin T C-Reactive Protein NT-Pro-B Natriuret Pep Total Protein Albumin Cholesterol LDL Cholesterol Direct HDL Cholesterol PTH Intact Arterial Blood Glucose Urine WBC (Auto) Urine Creatinine Valproic Acid Heparin-induced Plt Ab Weak positive H Lymph Enumerat CD4/CD8 Absolute CD3 Count Absolute CD4 Count % CD8 Cells Absolute CD8 Count Absolute CD19 Count Coronavirus (PCR) HIV-1 RNA PCR copies/ml HIV-1 RNA (PCR) log 09/22/20 09/22/20 09/23/20 16:53 23:55 04:36 WBC 14.2 H RBC 3.05 L Hgb 9.8 L Hct 28.4 L MCV MCH MCHC Plt Count 39 L Lymph % (Auto) [place] % (Auto) Lymph # (Auto) [place] # (Auto) Seg Neutrophils % Seg Neuts % (Manual) 91.0 H Lymphocytes % (Manual) 2.0 L Monocytes % (Manual) Nucleated RBC % Seg Neutrophils # Seg Neutrophils # Man 12.9 H Abs Lymphs (Manual) Lymphocytes # (Manual) 0.3 L PT INR APTT D-Dimer Heparin Anti-Xa Level ABG pH POC ABG pCO2 POC ABG pO2 ABG Oxyhemoglobin ABG Sodium ABG Potassium ABG Glucose Carboxyhemoglobin Sodium Potassium Chloride Carbon Dioxide BUN Creatinine Glucose POC Glucose 138 H 171 H Calcium Phosphorus Ferritin Total Bilirubin AST ALT Alkaline Phosphatase Lactate Dehydrogenase Total Creatine Kinase Troponin T C-Reactive Protein NT-Pro-B Natriuret Pep Total Protein Albumin Cholesterol LDL Cholesterol Direct HDL Cholesterol PTH Intact Arterial Blood Glucose Urine WBC (Auto) Urine Creatinine Valproic Acid Heparin-induced Plt Ab Lymph Enumerat CD4/CD8 Absolute CD3 Count Absolute CD4 Count % CD8 Cells Absolute CD8 Count Absolute CD19 Count Coronavirus (PCR) HIV-1 RNA PCR copies/ml HIV-1 RNA (PCR) log 09/23/20 09/23/20 09/23/20 04:36 05:41 11:38 WBC RBC Hgb Hct MCV MCH MCHC Plt Count Lymph % (Auto) [place] % (Auto) Lymph # (Auto) [place] # (Auto) Seg Neutrophils % Seg Neuts % (Manual) Lymphocytes % (Manual) Monocytes % (Manual) Nucleated RBC % Seg Neutrophils # Seg Neutrophils # Man Abs Lymphs (Manual) Lymphocytes # (Manual) PT INR APTT D-Dimer Heparin Anti-Xa Level ABG pH POC ABG pCO2 POC ABG pO2 ABG Oxyhemoglobin ABG Sodium ABG Potassium ABG Glucose Carboxyhemoglobin Sodium Potassium Chloride Carbon Dioxide BUN 76 H Creatinine 3.1 H Glucose 157 H POC Glucose 136 H 141 H Calcium Phosphorus Ferritin Total Bilirubin AST ALT Alkaline Phosphatase Lactate Dehydrogenase Total Creatine Kinase Troponin T C-Reactive Protein NT-Pro-B Natriuret Pep Total Protein Albumin Cholesterol LDL Cholesterol Direct HDL Cholesterol PTH Intact Arterial Blood Glucose Urine WBC (Auto) Urine Creatinine Valproic Acid Heparin-induced Plt Ab Lymph Enumerat CD4/CD8 Absolute CD3 Count Absolute CD4 Count % CD8 Cells Absolute CD8 Count Absolute CD19 Count Coronavirus (PCR) HIV-1 RNA PCR copies/ml HIV-1 RNA (PCR) log 09/23/20 09/23/20 09/24/20 17:09 23:51 05:00 WBC 24.2 H RBC 3.23 L Hgb 10.0 L Hct 29.7 L MCV MCH MCHC Plt Count 74 L Lymph % (Auto) [place] % (Auto) Lymph # (Auto) [place] # (Auto) Seg Neutrophils % Seg Neuts % (Manual) Lymphocytes % (Manual) Monocytes % (Manual) Nucleated RBC % Seg Neutrophils # Seg Neutrophils # Man Abs Lymphs (Manual) Lymphocytes # (Manual) PT INR APTT D-Dimer Heparin Anti-Xa Level ABG pH POC ABG pCO2 POC ABG pO2 ABG Oxyhemoglobin ABG Sodium ABG Potassium ABG Glucose Carboxyhemoglobin Sodium Potassium Chloride Carbon Dioxide BUN Creatinine Glucose POC Glucose 128 H 128 H Calcium Phosphorus Ferritin Total Bilirubin AST ALT Alkaline Phosphatase Lactate Dehydrogenase Total Creatine Kinase Troponin T C-Reactive Protein NT-Pro-B Natriuret Pep Total Protein Albumin Cholesterol LDL Cholesterol Direct HDL Cholesterol PTH Intact Arterial Blood Glucose Urine WBC (Auto) Urine Creatinine Valproic Acid Heparin-induced Plt Ab Lymph Enumerat CD4/CD8 Absolute CD3 Count Absolute CD4 Count % CD8 Cells Absolute CD8 Count Absolute CD19 Count Coronavirus (PCR) HIV-1 RNA PCR copies/ml HIV-1 RNA (PCR) log 09/24/20 09/24/20 09/24/20 05:00 05:00 05:00 WBC RBC Hgb Hct MCV MCH MCHC Plt Count Lymph % (Auto) [place] % (Auto) Lymph # (Auto) [place] # (Auto) Seg Neutrophils % Seg Neuts % (Manual) Lymphocytes % (Manual) Monocytes % (Manual) Nucleated RBC % Seg Neutrophils # Seg Neutrophils # Man Abs Lymphs (Manual) Lymphocytes # (Manual) PT INR APTT D-Dimer 1772.86 H Heparin Anti-Xa Level ABG pH POC ABG pCO2 POC ABG pO2 ABG Oxyhemoglobin ABG Sodium ABG Potassium ABG Glucose Carboxyhemoglobin Sodium Potassium Chloride 107.1 H Carbon Dioxide BUN 90 H Creatinine 3.1 H Glucose 118 H POC Glucose Calcium Phosphorus Ferritin 1190.0 H Total Bilirubin AST ALT Alkaline Phosphatase Lactate Dehydrogenase 276 H Total Creatine Kinase Troponin T C-Reactive Protein 4.20 H NT-Pro-B Natriuret Pep Total Protein Albumin Cholesterol LDL Cholesterol Direct HDL Cholesterol PTH Intact Arterial Blood Glucose Urine WBC (Auto) Urine Creatinine Valproic Acid Heparin-induced Plt Ab Lymph Enumerat CD4/CD8 Absolute CD3 Count Absolute CD4 Count % CD8 Cells Absolute CD8 Count Absolute CD19 Count Coronavirus (PCR) HIV-1 RNA PCR copies/ml HIV-1 RNA (PCR) log 09/24/20 09/24/20 09/24/20 05:12 11:25 12:09 WBC RBC Hgb Hct MCV MCH MCHC Plt Count Lymph % (Auto) [place] % (Auto) Lymph # (Auto) [place] # (Auto) Seg Neutrophils % Seg Neuts % (Manual) Lymphocytes % (Manual) Monocytes % (Manual) Nucleated RBC % Seg Neutrophils # Seg Neutrophils # Man Abs Lymphs (Manual) Lymphocytes # (Manual) PT INR APTT D-Dimer Heparin Anti-Xa Level ABG pH POC ABG pCO2 POC ABG pO2 ABG Oxyhemoglobin ABG Sodium ABG Potassium ABG Glucose Carboxyhemoglobin Sodium Potassium Chloride Carbon Dioxide BUN Creatinine 3.1 H Glucose POC Glucose 114 H 110 H Calcium Phosphorus Ferritin Total Bilirubin AST ALT Alkaline Phosphatase Lactate Dehydrogenase Total Creatine Kinase Troponin T C-Reactive Protein NT-Pro-B Natriuret Pep Total Protein Albumin Cholesterol LDL Cholesterol Direct HDL Cholesterol PTH Intact Arterial Blood Glucose Urine WBC (Auto) Urine Creatinine Valproic Acid Heparin-induced Plt Ab Lymph Enumerat CD4/CD8 Absolute CD3 Count Absolute CD4 Count % CD8 Cells Absolute CD8 Count Absolute CD19 Count Coronavirus (PCR) HIV-1 RNA PCR copies/ml HIV-1 RNA (PCR) log 09/24/20 09/24/20 09/24/20 12:13 12:13 17:41 WBC 20.8 H RBC 3.04 L Hgb 9.5 L Hct 28.0 L MCV MCH MCHC Plt Count 78 L Lymph % (Auto) [place] % (Auto) Lymph # (Auto) [place] # (Auto) Seg Neutrophils % Seg Neuts % (Manual) Lymphocytes % (Manual) Monocytes % (Manual) Nucleated RBC % Seg Neutrophils # Seg Neutrophils # Man Abs Lymphs (Manual) Lymphocytes # (Manual) PT 15.7 H INR 1.27 H APTT D-Dimer Heparin Anti-Xa Level ABG pH POC ABG pCO2 POC ABG pO2 ABG Oxyhemoglobin ABG Sodium ABG Potassium ABG Glucose Carboxyhemoglobin Sodium Potassium Chloride Carbon Dioxide BUN Creatinine Glucose POC Glucose 133 H Calcium Phosphorus Ferritin Total Bilirubin AST ALT Alkaline Phosphatase Lactate Dehydrogenase Total Creatine Kinase Troponin T C-Reactive Protein NT-Pro-B Natriuret Pep Total Protein Albumin Cholesterol LDL Cholesterol Direct HDL Cholesterol PTH Intact Arterial Blood Glucose Urine WBC (Auto) Urine Creatinine Valproic Acid Heparin-induced Plt Ab Lymph Enumerat CD4/CD8 Absolute CD3 Count Absolute CD4 Count % CD8 Cells Absolute CD8 Count Absolute CD19 Count Coronavirus (PCR) HIV-1 RNA PCR copies/ml HIV-1 RNA (PCR) log 09/24/20 09/25/20 09/25/20 23:34 06:40 06:40 WBC RBC Hgb Hct MCV MCH MCHC Plt Count Lymph % (Auto) [place] % (Auto) Lymph # (Auto) [place] # (Auto) Seg Neutrophils % Seg Neuts % (Manual) Lymphocytes % (Manual) Monocytes % (Manual) Nucleated RBC % Seg Neutrophils # Seg Neutrophils # Man Abs Lymphs (Manual) Lymphocytes # (Manual) PT INR APTT D-Dimer Heparin Anti-Xa Level ABG pH POC ABG pCO2 POC ABG pO2 ABG Oxyhemoglobin ABG Sodium ABG Potassium ABG Glucose Carboxyhemoglobin Sodium Potassium Chloride 109.0 H Carbon Dioxide BUN 98 H Creatinine 3.0 H 3.0 H Glucose 111 H POC Glucose 113 H Calcium Phosphorus Ferritin Total Bilirubin AST ALT Alkaline Phosphatase Lactate Dehydrogenase Total Creatine Kinase Troponin T C-Reactive Protein NT-Pro-B Natriuret Pep Total Protein Albumin Cholesterol LDL Cholesterol Direct HDL Cholesterol PTH Intact Arterial Blood Glucose Urine WBC (Auto) Urine Creatinine Valproic Acid Heparin-induced Plt Ab Lymph Enumerat CD4/CD8 Absolute CD3 Count Absolute CD4 Count % CD8 Cells Absolute CD8 Count Absolute CD19 Count Coronavirus (PCR) HIV-1 RNA PCR copies/ml HIV-1 RNA (PCR) log 09/25/20 09/25/20 09/25/20 10:45 12:45 18:03 WBC 20.7 H RBC 3.33 L Hgb 10.2 L Hct 31.3 L MCV MCH MCHC Plt Count 139 L Lymph % (Auto) [place] % (Auto) Lymph # (Auto) [place] # (Auto) Seg Neutrophils % Seg Neuts % (Manual) Lymphocytes % (Manual) Monocytes % (Manual) Nucleated RBC % Seg Neutrophils # Seg Neutrophils # Man Abs Lymphs (Manual) Lymphocytes # (Manual) PT INR APTT D-Dimer Heparin Anti-Xa Level ABG pH POC ABG pCO2 POC ABG pO2 ABG Oxyhemoglobin ABG Sodium ABG Potassium ABG Glucose Carboxyhemoglobin Sodium Potassium Chloride Carbon Dioxide BUN Creatinine Glucose POC Glucose 108 H 114 H Calcium Phosphorus Ferritin Total Bilirubin AST ALT Alkaline Phosphatase Lactate Dehydrogenase Total Creatine Kinase Troponin T C-Reactive Protein NT-Pro-B Natriuret Pep Total Protein Albumin Cholesterol LDL Cholesterol Direct HDL Cholesterol PTH Intact Arterial Blood Glucose Urine WBC (Auto) Urine Creatinine Valproic Acid Heparin-induced Plt Ab Lymph Enumerat CD4/CD8 Absolute CD3 Count Absolute CD4 Count % CD8 Cells Absolute CD8 Count Absolute CD19 Count Coronavirus (PCR) HIV-1 RNA PCR copies/ml HIV-1 RNA (PCR) log 09/25/20 09/26/20 09/26/20 23:29 05:00 07:06 WBC 17.0 H RBC 3.10 L Hgb 9.6 L Hct 28.8 L MCV MCH MCHC Plt Count Lymph % (Auto) [place] % (Auto) Lymph # (Auto) [place] # (Auto) Seg Neutrophils % Seg Neuts % (Manual) Lymphocytes % (Manual) Monocytes % (Manual) Nucleated RBC % Seg Neutrophils # Seg Neutrophils # Man Abs Lymphs (Manual) Lymphocytes # (Manual) PT INR APTT D-Dimer Heparin Anti-Xa Level ABG pH POC ABG pCO2 POC ABG pO2 ABG Oxyhemoglobin ABG Sodium ABG Potassium ABG Glucose Carboxyhemoglobin Sodium Potassium Chloride Carbon Dioxide BUN Creatinine Glucose POC Glucose 111 H 115 H Calcium Phosphorus Ferritin Total Bilirubin AST ALT Alkaline Phosphatase Lactate Dehydrogenase Total Creatine Kinase Troponin T C-Reactive Protein NT-Pro-B Natriuret Pep Total Protein Albumin Cholesterol LDL Cholesterol Direct HDL Cholesterol PTH Intact Arterial Blood Glucose Urine WBC (Auto) Urine Creatinine Valproic Acid Heparin-induced Plt Ab Lymph Enumerat CD4/CD8 Absolute CD3 Count Absolute CD4 Count % CD8 Cells Absolute CD8 Count Absolute CD19 Count Coronavirus (PCR) HIV-1 RNA PCR copies/ml HIV-1 RNA (PCR) log 09/26/20 09/26/20 09/27/20 07:06 17:26 04:00 WBC RBC Hgb Hct MCV MCH MCHC Plt Count Lymph % (Auto) [place] % (Auto) Lymph # (Auto) [place] # (Auto) Seg Neutrophils % Seg Neuts % (Manual) Lymphocytes % (Manual) Monocytes % (Manual) Nucleated RBC % Seg Neutrophils # Seg Neutrophils # Man Abs Lymphs (Manual) Lymphocytes # (Manual) PT INR APTT D-Dimer Heparin Anti-Xa Level ABG pH POC ABG pCO2 POC ABG pO2 ABG Oxyhemoglobin ABG Sodium ABG Potassium ABG Glucose Carboxyhemoglobin Sodium Potassium Chloride Carbon Dioxide BUN 69 H 67 H Creatinine 2.2 H 2.3 H Glucose 107 H 121 H POC Glucose 124 H Calcium Phosphorus Ferritin Total Bilirubin AST ALT Alkaline Phosphatase Lactate Dehydrogenase Total Creatine Kinase Troponin T C-Reactive Protein NT-Pro-B Natriuret Pep Total Protein Albumin Cholesterol LDL Cholesterol Direct HDL Cholesterol PTH Intact Arterial Blood Glucose Urine WBC (Auto) Urine Creatinine Valproic Acid Heparin-induced Plt Ab Lymph Enumerat CD4/CD8 Absolute CD3 Count Absolute CD4 Count % CD8 Cells Absolute CD8 Count Absolute CD19 Count Coronavirus (PCR) HIV-1 RNA PCR copies/ml HIV-1 RNA (PCR) log 09/27/20 09/27/20 09/27/20 04:00 05:00 17:11 WBC 14.6 H RBC 2.72 L Hgb 8.6 L Hct 25.8 L MCV 95 H MCH MCHC Plt Count Lymph % (Auto) 4.3 L [place] % (Auto) Lymph # (Auto) 0.6 L [place] # (Auto) 0.9 H Seg Neutrophils % 89.6 H Seg Neuts % (Manual) Lymphocytes % (Manual) Monocytes % (Manual) Nucleated RBC % Seg Neutrophils # 13.1 H Seg Neutrophils # Man Abs Lymphs (Manual) Lymphocytes # (Manual) PT INR APTT D-Dimer Heparin Anti-Xa Level ABG pH POC ABG pCO2 POC ABG pO2 ABG Oxyhemoglobin ABG Sodium ABG Potassium ABG Glucose Carboxyhemoglobin Sodium Potassium Chloride Carbon Dioxide BUN Creatinine 2.4 H Glucose POC Glucose 132 H Calcium Phosphorus Ferritin Total Bilirubin AST ALT Alkaline Phosphatase Lactate Dehydrogenase Total Creatine Kinase Troponin T C-Reactive Protein NT-Pro-B Natriuret Pep Total Protein Albumin Cholesterol LDL Cholesterol Direct HDL Cholesterol PTH Intact Arterial Blood Glucose Urine WBC (Auto) Urine Creatinine Valproic Acid Heparin-induced Plt Ab Lymph Enumerat CD4/CD8 Absolute CD3 Count Absolute CD4 Count % CD8 Cells Absolute CD8 Count Absolute CD19 Count Coronavirus (PCR) HIV-1 RNA PCR copies/ml HIV-1 RNA (PCR) log 09/28/20 09/28/20 09/29/20 04:46 04:46 04:45 WBC 14.6 H RBC 2.66 L Hgb 8.4 L Hct 25.3 L MCV 95 H MCH MCHC Plt Count Lymph % (Auto) [place] % (Auto) Lymph # (Auto) [place] # (Auto) Seg Neutrophils % Seg Neuts % (Manual) Lymphocytes % (Manual) Monocytes % (Manual) Nucleated RBC % Seg Neutrophils # Seg Neutrophils # Man Abs Lymphs (Manual) Lymphocytes # (Manual) PT INR APTT D-Dimer Heparin Anti-Xa Level ABG pH POC ABG pCO2 POC ABG pO2 ABG Oxyhemoglobin ABG Sodium ABG Potassium ABG Glucose Carboxyhemoglobin Sodium Potassium Chloride Carbon Dioxide BUN 71 H 63 H Creatinine 2.3 H 2.2 H Glucose 105 H POC Glucose Calcium Phosphorus Ferritin Total Bilirubin AST ALT Alkaline Phosphatase Lactate Dehydrogenase Total Creatine Kinase Troponin T C-Reactive Protein NT-Pro-B Natriuret Pep Total Protein Albumin Cholesterol LDL Cholesterol Direct HDL Cholesterol PTH Intact Arterial Blood Glucose Urine WBC (Auto) Urine Creatinine Valproic Acid Heparin-induced Plt Ab Lymph Enumerat CD4/CD8 Absolute CD3 Count Absolute CD4 Count % CD8 Cells Absolute CD8 Count Absolute CD19 Count Coronavirus (PCR) HIV-1 RNA PCR copies/ml HIV-1 RNA (PCR) log 09/29/20 09/29/20 09/29/20 04:45 05:43 17:50 WBC RBC 2.92 L Hgb 9.6 L Hct 28.1 L MCV 96 H MCH 33 H MCHC Plt Count Lymph % (Auto) [place] % (Auto) Lymph # (Auto) [place] # (Auto) Seg Neutrophils % Seg Neuts % (Manual) Lymphocytes % (Manual) Monocytes % (Manual) Nucleated RBC % Seg Neutrophils # Seg Neutrophils # Man Abs Lymphs (Manual) Lymphocytes # (Manual) PT INR APTT D-Dimer Heparin Anti-Xa Level ABG pH POC ABG pCO2 POC ABG pO2 ABG Oxyhemoglobin ABG Sodium ABG Potassium ABG Glucose Carboxyhemoglobin Sodium Potassium Chloride Carbon Dioxide BUN Creatinine Glucose POC Glucose 69 L 132 H Calcium Phosphorus Ferritin Total Bilirubin AST ALT Alkaline Phosphatase Lactate Dehydrogenase Total Creatine Kinase Troponin T C-Reactive Protein NT-Pro-B Natriuret Pep Total Protein Albumin Cholesterol LDL Cholesterol Direct HDL Cholesterol PTH Intact Arterial Blood Glucose Urine WBC (Auto) Urine Creatinine Valproic Acid Heparin-induced Plt Ab Lymph Enumerat CD4/CD8 Absolute CD3 Count Absolute CD4 Count % CD8 Cells Absolute CD8 Count Absolute CD19 Count Coronavirus (PCR) HIV-1 RNA PCR copies/ml HIV-1 RNA (PCR) log 09/30/20 09/30/20 10/01/20 04:47 04:47 07:16 WBC RBC 2.47 L Hgb 8.1 L Hct 23.9 L MCV 97 H MCH 33 H MCHC Plt Count Lymph % (Auto) [place] % (Auto) Lymph # (Auto) [place] # (Auto) Seg Neutrophils % Seg Neuts % (Manual) Lymphocytes % (Manual) Monocytes % (Manual) Nucleated RBC % Seg Neutrophils # Seg Neutrophils # Man Abs Lymphs (Manual) Lymphocytes # (Manual) PT INR APTT D-Dimer Heparin Anti-Xa Level ABG pH POC ABG pCO2 POC ABG pO2 ABG Oxyhemoglobin ABG Sodium ABG Potassium ABG Glucose Carboxyhemoglobin Sodium Potassium Chloride Carbon Dioxide 31 H BUN 63 H 58 H Creatinine 2.1 H 2.2 H Glucose POC Glucose Calcium Phosphorus Ferritin Total Bilirubin AST ALT Alkaline Phosphatase Lactate Dehydrogenase Total Creatine Kinase Troponin T C-Reactive Protein NT-Pro-B Natriuret Pep Total Protein 5.9 L Albumin 2.2 L Cholesterol LDL Cholesterol Direct HDL Cholesterol PTH Intact Arterial Blood Glucose Urine WBC (Auto) Urine Creatinine Valproic Acid Heparin-induced Plt Ab Lymph Enumerat CD4/CD8 Absolute CD3 Count Absolute CD4 Count % CD8 Cells Absolute CD8 Count Absolute CD19 Count Coronavirus (PCR) HIV-1 RNA PCR copies/ml HIV-1 RNA (PCR) log 10/01/20 10/02/20 10/03/20 08:30 05:10 08:12 WBC RBC Hgb Hct MCV MCH MCHC Plt Count Lymph % (Auto) [place] % (Auto) Lymph # (Auto) [place] # (Auto) Seg Neutrophils % Seg Neuts % (Manual) Lymphocytes % (Manual) Monocytes % (Manual) Nucleated RBC % Seg Neutrophils # Seg Neutrophils # Man Abs Lymphs (Manual) Lymphocytes # (Manual) PT INR APTT D-Dimer Heparin Anti-Xa Level ABG pH POC ABG pCO2 POC ABG pO2 ABG Oxyhemoglobin ABG Sodium ABG Potassium ABG Glucose Carboxyhemoglobin Sodium Potassium 5.4 H D Chloride Carbon Dioxide BUN 48 H 48 H Creatinine 2.0 H 2.2 H Glucose POC Glucose Calcium 8.0 L Phosphorus Ferritin Total Bilirubin AST ALT Alkaline Phosphatase Lactate Dehydrogenase Total Creatine Kinase Troponin T C-Reactive Protein NT-Pro-B Natriuret Pep Total Protein Albumin Cholesterol LDL Cholesterol Direct HDL Cholesterol PTH Intact Arterial Blood Glucose Urine WBC (Auto) Urine Creatinine Valproic Acid Heparin-induced Plt Ab Lymph Enumerat CD4/CD8 Absolute CD3 Count Absolute CD4 Count % CD8 Cells Absolute CD8 Count Absolute CD19 Count Coronavirus (PCR) Positive A HIV-1 RNA PCR copies/ml HIV-1 RNA (PCR) log 10/03/20 08:12 WBC RBC Hgb Hct MCV MCH MCHC Plt Count Lymph % (Auto) [place] % (Auto) Lymph # (Auto) [place] # (Auto) Seg Neutrophils % Seg Neuts % (Manual) Lymphocytes % (Manual) Monocytes % (Manual) Nucleated RBC % Seg Neutrophils # Seg Neutrophils # Man Abs Lymphs (Manual) Lymphocytes # (Manual) PT INR APTT D-Dimer Heparin Anti-Xa Level ABG pH POC ABG pCO2 POC ABG pO2 ABG Oxyhemoglobin ABG Sodium ABG Potassium ABG Glucose Carboxyhemoglobin Sodium Potassium Chloride Carbon Dioxide BUN Creatinine Glucose POC Glucose Calcium Phosphorus Ferritin Total Bilirubin AST ALT Alkaline Phosphatase Lactate Dehydrogenase Total Creatine Kinase Troponin T C-Reactive Protein NT-Pro-B Natriuret Pep Total Protein Albumin Cholesterol LDL Cholesterol Direct HDL Cholesterol PTH Intact Arterial Blood Glucose Urine WBC (Auto) Urine Creatinine Valproic Acid 17.8 L Heparin-induced Plt Ab Lymph Enumerat CD4/CD8 Absolute CD3 Count Absolute CD4 Count % CD8 Cells Absolute CD8 Count Absolute CD19 Count Coronavirus (PCR) HIV-1 RNA PCR copies/ml HIV-1 RNA (PCR) log Allied health notes reviewed: nursing
[2020-10-07] MEDS: TAMSULOSIN 0.4 MG CAP PO SCH (14:27)
--- NOTE | 2020-10-08 08:16 | Progress Note ---
Assessment and Plan Assessment and plan: This is 70-year-old male with HIV, HTN, and atrial fibrillation (currently on therapeutic anticoagulation with Xarelto) admitted with atrial fibrillation with RVR, SIRs, metabolic acidosis, acute kidney injury, acute hypoxic respiratory failure, hypotension, and CHF Septic Shock Acute hypoxemic respiratory failure 2/2 to volume overload/chf exacerbation Acute systolic heart failure exacerbation Atrial fibrillation with RVR Acute on chronic kidney injury Hypotension Anemia Thrombocytopenia E coli bacteremia E. coli urinary tract infection NSTEMI Elevated Ddimer Leukocytosis HIV, asymptomatic HTN Coagulopathy Transaminitis -Cardiology, CCM, Nephrology, ID, general surgery, heme/onc consulted, appreciate recommendations -09/20 COVID-19 PCR positive -Droplet/isolation precautions -Dexamethasone 6 mg p.o. (09/20-09/30) -Vitamin D, vitamin C, zinc -Vasopressor support with levophed and vasopressin, midodrine -09/17 CXR shows borderline heart size, mild central pulmonary venous congestion -09/17 renal ultrasound shows no acute findings -09/18 echocardiogram shows left ventricle systolic function mildly decreased, LVEF of 40 to 45% with mild concentric left ventricle hypertrophy, trace MR, mild TR, trace LA -09/19 abdominal ultrasound shows large gallstone within the gallbladder, no pericholecystic fluid, gallbladder wall upper limits of normal measuring 3 mm -09/21 HIDA scan shows no evidence of acute cholecystitis -09/21 BLE Dopplar US no evidence for DVT -09/23 CT head shows no acute intracranial hemorrhage or parenchymal abnormality, mild diffuse brain atrophy with commensurate ventricular enlargement which is likely age appropriate, small frontal scalp lipoma measuring 9 mm in thickness, 4 cm in length, and 4 cm in width., Sinuses and mastoid air cells are clear. -09/17 proBNP [id number] -S/p IV Lasix twice daily -09/20 nephrology initiated the patient on dialysis -Pulmonary hygiene -Bipap qhs -09/25 CT abd/pelvis without contrast pending -PO amiodarone -HIV meds per ID -IV abx therapy -HIT pending -Trend CBC, BMP, LFTs DVT/GI prophylaxis: PPI, SCDs to bilateral lower extremities while in bed, no chemical anticoagulation at this time d/t thrombocytopenia Disposition: IMCU History Interval history: This is 70-year-old male with HIV, HTN, and atrial fibrillation (currently on therapeutic anticoagulation with Xarelto) presents the emergency department on 09/17 with complaints of shortness of breath over the past 3 days and on arrival of EMS patient was found to have a pulse oximetry of 85% on room air. He was placed on supplemental oxygenation. Of note patient was admitted on 09/15 with similar complaints and found to have A. fib with RVR, hyponatremia, hypomagnesemia and acute kidney injury and left AMA. He was admitted to the hospital service with atrial fibrillation with RVR, SIRs, metabolic acidosis, acute kidney injury, acute hypoxic respiratory failure, hypotension, and CHF . Cardiology, CCM and nephrology were consulted. 09/18/2020. Await echocardiogram to assess for diastolic versus systolic etiology. Patient with elevated BNP greater than 18,000. Patient apparently was admitted approximately 3 days ago but left AMA. Cardiology consulted for heart failure, A. fib with RVR and elevated troponin. Patient denies chest pain. Also, patient with elevated creatinine of 4.7 with creatinine 2.8 on recent admission. We do not have a previous creatinine as a baseline to compare. Nephrology consultation pending. Follow-up renal ultrasound. Patient with coagulopathy and INR 3.04. Unsure if patient was on anticoagulation for A. fib. 09/19/2020. Patient likely with vasomotor acute kidney injury in the setting of s hock. Follow-up urine studies and renal ultrasound. Creatinine continues to worsen. Nephrology following. Etiology of respiratory failure secondary to heart failure with Covid testing pending. Elevated troponin suggestive of NSTEMI. Continue diuresis with Lasix. Continue IV amiodarone for rate control of A. fib with RVR. Continue heparin. Follow-up echocardiogram. Cardiology following. 09/20/2020: This time my examination patient was on BiPAP therapy and now is on nasal cannula. Patient remains on amiodarone drip with heart rate in the 130s to 140s and vasopressor support with Levophed. Today nephrology will initiate hemodialysis given worsening renal function studies and has stopped diuresis with Lasix. ID resumed antiretroviral therapy and ordered a HIDA scan. Today the patient received a temporary Vas-Cath and is COVID-19 PCR resulted as positive. Patient will be started on vitamin C, vitamin D and zinc and dexamethasone given need for supplemental oxygenation. 09/21: Ecoli UTI and bacteremia and ID has changed him to meropenem, Patient received HD yesterday and patient remains on amiodarone drip. He is off the floor to obtain a HIDA scan. 09/22: HIDA scan did not show acute cholecystitis. Ecoli bacteremia is sensitive to ceftriaxone and ID changed his abx. Mentation is better. BP is liable. Remains on levophed and vasopressin. We started midodrine. HIT panel pending and hem/onc consulted. 09/23: Patient noted to have unequal pupils with left >right, STAT CT head ordered. Nephro will withhold hemodialysis and assess needs as kidney function has gotten better. Patient symptomatically follows commands and is on nasal cannula. Cardiology stopped his Eliquis due to persistent thrombocytopenia. 09/24: Patient remains confused, pupils still unequal. Started on eliquis 2.5 today and he will be transferred to IMCU. 09/25: Patient remains confused, had Bipap overnight, CT abd/pelvis ordered per ID recommendations given persistent leukocytosis. Cr remains unchanged but BUN in rising. Nephrology is on the case. 09/26/2020; patient was confused and on 3 L of oxygen. ID is following the patient and continue with antiretroviral medications, no OI prophylaxis needed. Patient is on IV Rocephin lasted 09/28 per ID recommendation for E. coli bacteremia. ID ordered CT abdomen and pelvis. We will follow the results. Patient is being followed by cardiology and they recommend to resume Eliquis with 2.5 mg p.o. twice daily, thrombocytopenia is improving. Patient is on amiodarone and metoprolol. Patient is being followed by nephrology and is on dialysis. Blood pressure was normal this morning. Patient was tachycardic in A. fib with RVR. CT head was normal. Prognosis is guarded. Continue IMCU care. 09/27: Continue IMCU care, still with unresolved Afib, will continue to adjust medications for better control. 09/28: Start Seroquel DUE TO THE AGITATION, Discussed with daughter, will work on getting Afib better controlled. Per daughter the confusion is new, although some improvement noted today. Patient will benefit from SNF 09/29: Seroquel started today as it was not started yesterday, await PT/OT, Continue to monitor mental status, will transfer to Tele. Anticipate discharge when bed available. 09/30: Discussed extensively with the daughter about her clinical condition, Seroquel discontinued as patient did not tolerate, still with low BP responded to Fluids. Hold BB and continue to monitor and redirect. Discussed with Nursing staff. 10/01: Patient seen and examined resting comfortably still with intermittent delirium. Blood pressure has improved although beta-ruddy was held midodrine was given. Will change to Coreg 3.125 with holding parameters on discharge. Per cardiology amiodarone changed to 200 mg daily. Neurology evaluation is still pending. I have initiated placement to a SNF facility and once approved patient can be discharged. Daughter has been updated on medical condition. For now on anticoagulation left in place although outpatient this may be discontinued due to patient's mental status if there is no improvement. 10/02: Neurology evaluated the patient for increased agitation and aggressive behavior and confusion. Exam suggestive of delirium stopped. Due to not tolerating Seroquel, now Geodon trial Haldol however recommended also valproic acid. No overnight issues reported. Continue awaiting SNF placement for continued rehab. Blood pressure has remained stable no further fever recorded. Monitor for any recurrence of the pain in the leg. 10/03: I have asked for a sitter a few days ago unfortunately not as available as a result restraints have been used and reassurances. Will decrease Seroquel to 12.5 twice daily as patient did not tolerate the 25 mg. Continue supportive care blood pressure meds held due to hypotension. Delirium still present delirium preventive methods including keeping the lights on through the night windows shades up discussed with nursing staff. Also discussed with neurologist. 10/04: 70-year-old male admitted to the hospital with hypoxic respiratory failure history of Covid. During hospitalization developed A. fib with RVR status metabolic acidosis and acute kidney injury. Has also been exhibiting some delirium was managed in the ICU and IMCU and subsequently is awaiting placement. He was seen by neurologist delirium of diagnosis secondary to metabolic issues. Seroquel was started initially at 25 mg p.o. twice daily but patient developed hypotension now better improved BP, Continue seroquel 12.5mg po BID seems to have good improvement in mental status. awaiting labs due to noted hyperkalemia yesterday. Repeat covud test for placement. 10/05/2020; patient is pending for placement. Repeat Covid test is negative. Blood pressure is within normal limit. Patient is confused. 10/06/2020; repeat Covid test is negative. Patient is confused. Patient last dialysis was on 09/25, renal function is stable, no need dialysis, nephrology is following. 10/07/2020; Covid test was done yesterday and was positive. Renal function is improving and nephrology is following at this time. Last dialysis was on 09/25. Patient is pending placement. Mental health consulted for confusion. 10/08/2020; patient was calm and cooperative. Patient was on condom cath. Patient was oriented only to self. History Interval history: Patient was seen and evaluated this morning Patient said he is feeling better Patient was off restraint, calm and cooperative Patient was oriented only to self Hospitalist Physical - Physical exam Narrative exam: Patient was noting cardiopulmonary distress. The patient appeared well nourished and normally developed. Vital signs as documented. Head exam is unremarkable. No scleral icterus . Neck is without jugular venous distension, thyromegaly, or carotid bruits. Lungs are clear to auscultation. Cardiac exam reveals regular rate and Rhythm. Abdominal exam reveals normal bowel sounds, nontender, no organomegaly. Extremities are nonedematous and both femoral and pedal pulses are normal. 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 Patient was ordered oriented only to self. - Constitutional Vitals: Temp Pulse Resp BP Pulse Ox 98.3 F 126 H 18 102/71 95 10/08/20 05:09 10/08/20 05:09 10/08/20 05:09 10/08/20 06:49 10/08/20 05:09 General appearance: Present: no acute distress HEART Score - HEART Score Troponin: Troponin T < 0.010 ng/mL (0.00-0.029) 09/22/20 05:38 Results - Labs CBC & Chem 7: 10/07/20 06:45 10/07/20 06:45 Labs: Laboratory Last Values WBC 6.1 K/mm3 (4.5-11.0) 10/07/20 06:45 RBC 2.38 M/mm3 (3.65-5.03) L 10/07/20 06:45 Hgb 7.9 gm/dl (11.8-15.2) L 10/07/20 06:45 Hct 23.2 % (35.5-45.6) L 10/07/20 06:45 MCV 98 fl (84-94) H 10/07/20 06:45 MCH 33 pg (28-32) H 10/07/20 06:45 MCHC 34 % (32-34) 10/07/20 06:45 RDW 15.4 % (13.2-15.2) H 10/07/20 06:45 Plt Count 203 K/mm3 (140-440) 10/07/20 06:45 Lymph % (Auto) 4.3 % (13.4-35.0) L 09/27/20 04:00 [place] % (Auto) 6.0 % (0.0-7.3) 09/27/20 04:00 Eos % (Auto) 0.1 % (0.0-4.3) 09/27/20 04:00 Baso % (Auto) 0.0 % (0.0-1.8) 09/27/20 04:00 Lymph # (Auto) 0.6 K/mm3 (1.2-5.4) L 09/27/20 04:00 [place] # (Auto) 0.9 K/mm3 (0.0-0.8) H 09/27/20 04:00 Eos # (Auto) 0.0 K/mm3 (0.0-0.4) 09/27/20 04:00 Baso # (Auto) 0.0 K/mm3 (0.0-0.1) 09/27/20 04:00 Add Manual Diff Complete 09/23/20 04:36 Total Counted 100 09/23/20 04:36 Seg Neutrophils % 89.6 % (40.0-70.0) H 09/27/20 04:00 Seg Neuts % (Manual) 91.0 % (40.0-70.0) H 09/23/20 04:36 Band Neutrophils % 2.0 % 09/23/20 04:36 Lymphocytes % (Manual) 2.0 % (13.4-35.0) L 09/23/20 04:36 Monocytes % (Manual) 5.0 % (0.0-7.3) 09/23/20 04:36 Nucleated RBC % Not Reportable 09/23/20 04:36 Seg Neutrophils # 13.1 K/mm3 (1.8-7.7) H 09/27/20 04:00 Seg Neutrophils # Man 12.9 K/mm3 (1.8-7.7) H 09/23/20 04:36 Band Neutrophils # 0.3 K/mm3 09/23/20 04:36 Abs Lymphs (Manual) 223 cells/uL (850-3900) L 09/19/20 13:35 Lymphocytes # (Manual) 0.3 K/mm3 (1.2-5.4) L 09/23/20 04:36 Abs React Lymphs (Man) 0.0 K/mm3 09/23/20 04:36 Monocytes # (Manual) 0.7 K/mm3 (0.0-0.8) 09/23/20 04:36 Eosinophils # (Manual) 0.0 K/mm3 (0.0-0.4) 09/23/20 04:36 Basophils # (Manual) 0.0 K/mm3 (0.0-0.1) 09/23/20 04:36 Metamyelocytes # 0.0 K/mm3 09/23/20 04:36 Myelocytes # 0.0 K/mm3 09/23/20 04:36 Promyelocytes # 0.0 K/mm3 09/23/20 04:36 Blast Cells # 0.0 K/mm3 09/23/20 04:36 WBC Morphology Not Reportable 09/23/20 04:36 Hypersegmented Neuts Not Reportable 09/23/20 04:36 Hyposegmented Neuts Not Reportable 09/23/20 04:36 Hypogranular Neuts Not Reportable 09/23/20 04:36 Smudge Cells Not Reportable 09/23/20 04:36 Toxic Granulation Not Reportable 09/23/20 04:36 Toxic Vacuolation Not Reportable 09/23/20 04:36 Dohle Bodies Not Reportable 09/23/20 04:36 Pelger-Huet Anomaly Not Reportable 09/23/20 04:36 Vinh Rods Not Reportable 09/23/20 04:36 Platelet Estimate Consistent w auto 09/23/20 04:36 Clumped Platelets Not Reportable 09/23/20 04:36 Plt Clumps, EDTA Not Reportable 09/23/20 04:36 Large Platelets Not Reportable 09/23/20 04:36 Giant Platelets Not Reportable 09/23/20 04:36 Platelet Satelliting Not Reportable 09/23/20 04:36 Plt Morphology Comment Not Reportable 09/23/20 04:36 RBC Morphology Not Reportable 09/23/20 04:36 Dimorphic RBCs Not Reportable 09/23/20 04:36 Polychromasia Not Reportable 09/23/20 04:36 Hypochromasia Not Reportable 09/23/20 04:36 Poikilocytosis Not Reportable 09/23/20 04:36 Anisocytosis 1+ 09/23/20 04:36 Microcytosis Not Reportable 09/23/20 04:36 Macrocytosis Not Reportable 09/23/20 04:36 Spherocytes Not Reportable 09/23/20 04:36 Pappenheimer Bodies Not Reportable 09/23/20 04:36 Sickle Cells Not Reportable 09/23/20 04:36 Target Cells Few 09/23/20 04:36 Tear Drop Cells Not Reportable 09/23/20 04:36 Ovalocytes Not Reportable 09/23/20 04:36 Helmet Cells Not Reportable 09/23/20 04:36 Lazo-Somers Bodies Not Reportable 09/23/20 04:36 Pella Rings Not Reportable 09/23/20 04:36 [place] Cells Not Reportable 09/23/20 04:36 Bite Cells Not Reportable 09/23/20 04:36 Crenated Cell Not Reportable 09/23/20 04:36 Elliptocytes Not Reportable 09/23/20 04:36 Acanthocytes (Spur) Not Reportable 09/23/20 04:36 Rouleaux Not Reportable 09/23/20 04:36 Hemoglobin C Crystals Not Reportable 09/23/20 04:36 Schistocytes Not Reportable 09/23/20 04:36 Malaria parasites Not Reportable 09/23/20 04:36 Zachary Bodies Not Reportable 09/23/20 04:36 Hem Pathologist Commnt No 09/23/20 04:36 PT 15.7 Sec. (12.2-14.9) H 09/24/20 12:13 INR 1.27 (0.87-1.13) H 09/24/20 12:13 APTT 25.7 Sec. (24.2-36.6) 09/24/20 12:13 D-Dimer 1772.86 ng/mlDDU (0-234) H 09/24/20 05:00 Heparin Anti-Xa Level 0.10 U.I./ml (0.3-0.7) L 09/20/20 04:00 Heparin Anti-Xa, Unfract Negative (Negative) 09/22/20 15:12 ABG pH 7.508 (7.320-7.450) H 09/17/20 10:28 POC ABG pCO2 22.8 mmHg (32.0-48.0) L 09/17/20 10:28 POC ABG pO2 66.8 mmHg (83-108) L 09/17/20 10:28 POC ABG HCO3 17.7 09/17/20 10:28 ABG O2 Saturation 93.4 (0-100) 09/17/20 10:28 POC ABG Base Excess -3.5 09/17/20 10:28 ABG Hemoglobin 12.7 (12.0-17.5) 09/17/20 10:28 ABG Oxyhemoglobin 92.7 (94-98) L 09/17/20 10:28 ABG Methemoglobin 0.3 (0.0-1.5) 09/17/20 10:28 ABG Sodium 127.4 mmol/L (136.0-145.0) L 09/17/20 10:28 ABG Potassium 4.7 mmol/L (3.40-4.50) H 09/17/20 10:28 ABG Chloride 101.0 mmol/L (98-107) 09/17/20 10:28 ABG Glucose 121 mg/dL (65-95) H 09/17/20 10:28 Carboxyhemoglobin 0.4 (0.5-1.5) L 09/17/20 10:28 FiO2 % 21 09/17/20 10:28 Sodium 138 mmol/L (137-145) 10/07/20 06:45 Potassium 3.8 mmol/L (3.6-5.0) 10/07/20 06:45 Chloride 104.1 mmol/L (98-107) 10/07/20 06:45 Carbon Dioxide 26 mmol/L (22-30) 10/07/20 06:45 Anion Gap 12 mmol/L 10/07/20 06:45 BUN 28 mg/dL (9-20) H 10/07/20 06:45 Creatinine 2.2 mg/dL (0.8-1.3) H 10/07/20 06:45 Estimated GFR 36 ml/min 10/07/20 06:45 BUN/Creatinine Ratio 13 % 10/07/20 06:45 Glucose 80 mg/dL (75-100) 10/07/20 06:45 POC Glucose 72 mg/dL (70-105) 09/30/20 11:45 Lactic Acid 1.00 mmol/L (0.7-2.0) 09/20/20 17:10 Calcium 8.4 mg/dL (8.4-10.2) 10/07/20 06:45 Phosphorus 2.90 mg/dL (2.5-4.5) 09/26/20 07:06 Magnesium 1.70 mg/dL (1.7-2.3) 09/26/20 07:06 Ferritin 1190.0 ng/mL (30.0-300.0) H 09/24/20 05:00 Total Bilirubin 0.80 mg/dL (0.1-1.2) 09/30/20 04:47 AST 14 units/L (5-40) 09/30/20 04:47 ALT 21 units/L (7-56) 09/30/20 04:47 Alkaline Phosphatase 81 units/L (35-129) 09/30/20 04:47 Lactate Dehydrogenase 276 units/L (91-180) H 09/24/20 05:00 Total Creatine Kinase 20 units/L (55-170) L 09/19/20 03:30 Troponin T < 0.010 ng/mL (0.00-0.029) 09/22/20 05:38 C-Reactive Protein 4.20 mg/dL (0.00-1.30) H 09/24/20 05:00 NT-Pro-B Natriuret Pep 71887 pg/mL (0-900) H 09/17/20 10:47 Serum Total Protein 5.5 g/dL (6.1-8.1) L 09/30/20 04:47 Total Protein 5.9 g/dL (6.3-8.2) L 09/30/20 04:47 Albumin 2.1 g/dL (3.8-4.8) L 09/30/20 04:47 Albumin 2.2 g/dL (3.9-5) L 09/30/20 04:47 Albumin/Globulin Ratio 0.6 % 09/30/20 04:47 Mqnyg-8-Oijlyhvuu 0.3 g/dL (0.2-0.3) 09/30/20 04:47 Cjstw-8-Cjboxbapf 0.7 g/dL (0.5-0.9) 09/30/20 04:47 Beta Globulins 0.3 g/dL (0.2-0.5) 09/30/20 04:47 Gamma Globulins 1.7 g/dL (0.8-1.7) 09/30/20 04:47 Abnorm Protein Band 1 see below 09/30/20 04:47 PEP Interpretation see below 09/30/20 04:47 Triglycerides 137 mg/dL (2-149) 09/17/20 13:54 Cholesterol 48 mg/dL (50-199) L 09/17/20 13:54 LDL Cholesterol Direct 4 mg/dL (50-130) L 09/17/20 13:54 HDL Cholesterol 9 mg/dL (40-59) L 09/17/20 13:54 Cholesterol/HDL Ratio 5.33 % 09/17/20 13:54 Free PSA See scanned result 09/17/20 17:35 % Free PSA Calc See scanned result 09/17/20 17:35 Total PSA See scanned result 09/17/20 17:35 Serotonin Release Assay See scanned result 09/22/20 15:12 Procalcitonin 2.10 ng/mL (<0.15) 09/25/20 06:40 PTH Intact 161.4 pg/mL (15-65) H 09/19/20 03:30 Arterial Blood Glucose 121 mg/dL (65-95) H 09/17/20 10:28 Arterial Blood Ionized Calcium 5.0 mg/dL (4.6-5.3) 09/17/20 10:28 Urine Color Yellow (Yellow) 09/18/20 12:00 Urine Turbidity Cloudy (Clear) 09/18/20 12:00 Urine pH 5.0 (5.0-7.0) 09/18/20 12:00 Ur Specific [place] 1.009 (1.003-1.030) 09/18/20 12:00 Urine Protein 30 mg/dl mg/dL (Negative) 09/18/20 12:00 Urine Glucose (UA) Neg mg/dL (Negative) 09/18/20 12:00 Urine Ketones Neg mg/dL (Negative) 09/18/20 12:00 Urine Blood Sm (Negative) 09/18/20 12:00 Urine Nitrite Neg (Negative) 09/18/20 12:00 Urine Bilirubin Neg (Negative) 09/18/20 12:00 Urine Urobilinogen < 2.0 mg/dL (<2.0) 09/18/20 12:00 Ur Leukocyte Esterase Mod (Negative) 09/18/20 12:00 Urine WBC (Auto) 71.0 /HPF (0.0-6.0) H 09/18/20 12:00 Urine RBC (Auto) 2.0 /HPF (0.0-6.0) 09/18/20 12:00 U Epithel Cells (Auto) 1.0 /HPF (0-13.0) 09/18/20 12:00 Urine Bacteria (Auto) 4+ /HPF (Negative) 09/18/20 12:00 Urine WBC Clumps 2+ /HPF 09/18/20 12:00 Hyaline Casts 3 /LPF 09/18/20 12:00 Granular Casts 3 /LPF 09/18/20 12:00 Urine Mucus Few /HPF 09/18/20 12:00 Urine Eosinophils None seen (None Seen) 09/19/20 03:15 Urine Creatinine 61.0 mg/dL (0.1-20.0) H 09/18/20 12:00 Urine Sodium 62 mmol/L 09/18/20 12:00 Random Vancomycin 12.7 ug/mL (0-40.0) 09/19/20 03:30 Valproic Acid 17.8 ug/mL (50-100) L 10/03/20 08:12 Heparin-induced Plt Ab Weak positive (Negative) H 09/22/20 15:12 UF Heparin High Dose 0 % Release 09/22/20 15:12 COR[place]ON UFH Low Dose 0.1 0 % Release 09/22/20 15:12 [place] UFH Low Dose 0.5 0 % Release 09/22/20 15:12 Lymph Enumerat CD4/CD8 0.70 (0.86-5.00) L 09/19/20 13:35 % CD3 Cells 79 % (57-85) 09/19/20 13:35 Absolute CD3 Count 175 cells/uL (840-3060) L 09/19/20 13:35 % CD4 Cells 31 % (30-61) 09/19/20 13:35 Absolute CD4 Count 70 cells/uL (490-1740) L 09/19/20 13:35 % CD8 Cells 45 % (12-42) H 09/19/20 13:35 Absolute CD8 Count 101 cells/uL (180-1170) L 09/19/20 13:35 % CD19 Cells 12 % (6-29) 09/19/20 13:35 Absolute CD19 Count 26 cells/uL (110-660) L 09/19/20 13:35 Coronavirus (PCR) Positive (Negative) A 10/06/20 Unknown Hepatitis A IgM Ab Non-reactive (NonReactive) 09/20/20 17:10 Hep Bs Antigen Non-reactive (Negative) 09/20/20 17:10 Hep B Core IgM Ab Non-reactive (NonReactive) 09/20/20 17:10 Hepatitis C Antibody Non-reactive (NonReactive) 09/20/20 17:10 HIV-1 RNA PCR copies/ml 67 Copies/mL H 09/19/20 13:35 HIV-1 RNA (PCR) log 1.83 Log cps/mL H 09/19/20 13:35 [place]/IV: Voiding Method Condom Catheter Active Medications - Current Medications Current Medications: Generic Name Dose Route Start Last Admin Trade Name Freq PRN Reason Stop Dose Admin Acetaminophen 650 mg 09/17/20 13:52 09/30/20 21:12 Acetaminophen 325 Mg Tab PO 650 mg Q4H PRN Administration Pain MILD(1-3)/Fever >100.5/ANGEL Albuterol 2.5 mg 09/17/20 13:52 09/17/20 20:47 Albuterol 2.5 Mg/3 Ml Nebu IH 2.5 mg Q4HRT PRN Administration Shortness Of Breath Amiodarone HCl 200 mg 10/01/20 22:00 10/07/20 22:27 Amiodarone 200 Mg Tab PO 200 mg BID EDIE Administration Lipase/Protease/Amylase 1 each 09/20/20 13:10 Lipase 10,500/Protease 25,000/Amylase 43,750 (Units) Dr Cap FEEDTUBE PRN PRN For Clogged Feeding Tube Apixaban 5 mg 10/05/20 22:00 10/07/20 22:27 Apixaban 5 Mg Tab PO 5 mg Q12HR EDIE Administration Ascorbic Acid 500 mg 09/20/20 22:00 10/07/20 22:26 Ascorbic Acid 500 Mg Tab PO 500 mg BID EDIE Administration Cholecalciferol 1,000 unit 09/21/20 10:00 10/07/20 10:02 Cholecalciferol (Vit D3) 1000 Unit (25 Mcg) Tab PO 1,000 unit QDAY [facility] Administration Docusate Sodium 100 mg 10/05/20 11:00 10/07/20 22:26 Docusate Sodium 100 Mg/10 Ml Oral Liqd PO 100 mg BID [facility] Administration Emtricitabine 200 mg 09/30/20 11:00 10/06/20 10:52 Emtricitabine 200 Mg Cap PO 200 mg Q48H EDIE Administration Famotidine 20 mg 09/24/20 10:00 10/07/20 10:03 Famotidine 20 Mg Tab PO 20 mg DAILY [facility] Administration Haloperidol Lactate 5 mg 10/01/20 11:34 10/04/20 13:32 Haloperidol Lactate 5 Mg/1 Ml Inj IM 5 mg Q6H PRN Administration Agitation Heparin Sodium (Porcine) 3,000 unit 09/20/20 10:06 Heparin 10,000 Units/10 Ml Vial IV VIRGIL PRN hemodialysis Sodium Chloride 100 mls @ 999 mls/hr 09/20/20 10:06 Nacl 0.9% IV VIRGIL PRN Hypotension Metoprolol Tartrate 5 mg 09/19/20 19:06 09/24/20 10:59 Metoprolol Tartrate 5 Mg/5 Ml Inj IV 5 mg Q8HR PRN Administration HR > 135 Minute Metoprolol Tartrate 12.5 mg 10/05/20 14:00 10/07/20 22:27 Metoprolol Tartrate 25 Mg Tab PO 12.5 mg TID [facility] Administration Midodrine 10 mg 10/07/20 08:00 10/07/20 17:08 Midodrine 5 Mg Tab PO Not Given TID@0800,1200,1600 [facility] Ondansetron HCl 4 mg 09/17/20 13:52 Ondansetron 4 Mg/2 Ml Inj IV Q8H PRN Nausea And Vomiting Quetiapine Fumarate 12.5 mg 10/03/20 22:00 10/07/20 22:27 Quetiapine 25 Mg Tab PO 12.5 mg QHS EDIE Administration Quetiapine Fumarate 12.5 mg 10/04/20 10:00 10/07/20 10:05 Quetiapine 25 Mg Tab PO 12.5 mg QAM EDIE Administration Simple Syrup 15 ml 09/20/20 13:10 Simple Syrup 15 Ml FEEDTUBE PRN PRN Hypoglycemia Simple Syrup 30 ml 09/20/20 13:10 Simple Syrup 15 Ml FEEDTUBE PRN PRN Hypoglycemia Sodium Bicarbonate 325 mg 09/20/20 13:10 Sodium Bicarbonate 325 Mg Tab FEEDTUBE PRN PRN For Clogged Feeding Tube Sodium Chloride 10 ml 09/17/20 22:00 10/07/20 22:28 Sodium Chloride 0.9% 10 Ml Flush Syringe IV 10 ml BID EDIE Administration Sodium Chloride 10 ml 09/17/20 13:52 09/24/20 09:15 Sodium Chloride 0.9% 10 Ml Flush Syringe IV 10 ml PRN PRN Administration LINE FLUSH Tamsulosin HCl 0.4 mg 10/07/20 13:00 10/07/20 14:27 Tamsulosin 0.4 Mg Cap PO Not Given QDAY EDIE Tenofovir Disoproxil Fumarate 300 mg 09/30/20 11:00 10/06/20 10:52 Tenofovir 300 Mg Tab PO 300 mg Q48H EDIE Administration Valproic Acid 250 mg 10/03/20 22:00 10/07/20 22:28 Valproic Acid 250 Mg Cap PO 250 mg BID EDIE Administration Zinc Sulfate 220 mg 09/21/20 10:00 10/07/20 10:03 Zinc Sulfate 220 Mg Cap PO 220 mg QDAY EDIE Administration Nutrition/Malnutrition Assess - Dietary Evaluation Nutrition/Malnutrition Findings: Nutrition Notes Start: 09/18/20 11:30 Freq: Status: Active Protocol: Document 10/06/20 11:22 AL (Rec: 10/06/20 11:34 AL [id number]) Co-Sign 10/06/20 11:22 LP Nutrition Notes Initial or Follow up Reassessment Current Diagnosis Acute Kidney Injury,Sepsis, Hypertension,Heart Failure, Respiratory Failure Other Pertinent Diagnosis AMS, UTI, afib with RVR, HIV ( +) Current Diet Pureed Renal Labs/Tests BUN 36 Cr 2.5 Pertinent Medications Colace Height 6 ft 1 in Weight 88.6 kg [place] Body Weight (kg) 83.63 BMI 25.7 Weight Status Appropriate Subjective/Other Information F/U for intakes, weight, and need for ONS. 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 Diagnosis Progress(for reassessment Worsened documentation) Is patient on ventilator? No Is Patient Ambulatory and/or Out of Bed No REE-([facility]-confined to bed) 2044.50 Calculation Used for Recommendations [facility] Additional Notes Pro needs: 73 - 88g (1 - 1.2 g /kg 73kg) Fluid needs 1-1.5L/day Nutrition Intervention Change Diet Order: Continue pureed renal diet Add Supplement/Snack (indicate name/kcal Nepro BID /protein ) Provides kCal: 850 Provides Protein (gm) 38 Goal #1 Meet at least 75% of estimated kcal and protein needs via PO Goal #2 Weight maintenance/weight gain Anticipated Discharge Needs: Pureed Renal Diet Follow-Up By: 10/08/20 Additional Comments F/U for stable intakes and ONS tolerance.
[2020-10-08] MEDS: DOLUTEGRAVIR 50 MG TAB PO SCH (09:07)
[2020-10-08] MEDS: MIDODRINE 5 MG TAB PO SCH ×3 (09:07→16:47)
[2020-10-08] MEDS: VALPROIC ACID 250 MG CAP PO SCH ×2 (09:07→21:13)
[2020-10-08] MEDS: TAMSULOSIN 0.4 MG CAP PO SCH (09:08)
[2020-10-08] MEDS: ASCORBIC ACID 500 MG TAB PO SCH ×2 (09:08→21:10)
[2020-10-08] MEDS: QUEtiapine 25 MG TAB PO SCH ×2 (09:08→21:10)
[2020-10-08] MEDS: AMIODARONE 200 MG TAB PO SCH ×2 (09:09→21:10)
[2020-10-08] MEDS: CHOLECALCIFEROL (VIT D3) 1000 UNIT (25 mcg) TAB PO SCH (09:10)
[2020-10-08] MEDS: FAMOTIDINE 20 MG TAB PO SCH (09:11)
[2020-10-08] MEDS: DOCUSATE SODIUM 100 MG/10 ML ORAL LIQD PO SCH ×2 (09:11→21:11)
[2020-10-08] MEDS: APIXABAN 5 MG TAB PO SCH ×2 (09:11→21:09)
[2020-10-08] MEDS: METOPROLOL TARTRATE 25 MG TAB PO SCH ×3 (09:11→20:27)
[2020-10-08] MEDS: ZINC SULFATE 220 MG CAP PO SCH (09:12)
--- NOTE | 2020-10-08 09:22 | Progress Note ---
Assessment and Plan * A. fib with RVR * Telemetry reviewed: A. fib 110s. No events * Continue rate control regimen: Amiodarone 200 mg p.o. twice daily, metopro lol 12.5 mg p.o. 3 times daily, Midodrine 10mg TID. * Patient is anticoagulated with Eliquis 5 mg twice daily * NSTEMI * Repeat troponins are negative x2. * Echocardiogram reviewed (09/18/2020): LVEF is 40 to 45%. LVSF is mildly decreased. Mild concentric LVH. RVSF is mildly reduced. No valvular abnormalities. * LOLI with acute tubular necrosis * No GEMA/ARB in setting of LOLI. Avoid nephrotoxic agents. Nephrology is following. * DVT prophylaxis * Currently on Eliquis Patient currently stable cardiac status. Patient may discharge to alf facility from cardiac standpoint. Will follow on as-needed basis. Patient should follow-up with Dr Mayo in our [place] office on 10/22/2020 at 10:45 AM. #[id number] This patient was seen in conjunction with Dr Mayo who agrees with this assessment and plan of care - Patient Problems (1) AMS (altered mental status) Current Visit: Yes Status: Acute Qualifiers: Altered mental status type: somnolence Qualified Code(s): R40.0 - Somnolence (2) Acute hypoxemic respiratory failure Current Visit: Yes Status: Acute (3) Acute kidney injury (LOLI) with acute tubular necrosis (ATN) Current Visit: Yes Status: Acute (4) Atrial fibrillation with RVR Current Visit: Yes Status: Acute (5) NSTEMI (non-ST elevated myocardial infarction) Current Visit: Yes Status: Acute (6) Metabolic acidosis Current Visit: No Status: Acute (7) Systemic inflammatory response syndrome Current Visit: No Status: Acute Subjective Date of service: 10/08/20 Principal diagnosis: Sepsis, AF with RVR Interval history: Patient resting comfortably in bed. No shortness of breath or chest pain overnight. Telemetry reviewed: Atrial fib 110s. No events Objective Last Vital Signs Temp 98.3 F 10/08/20 05:09 Pulse 126 H 10/08/20 05:09 Resp 18 10/08/20 05:09 BP 102/71 10/08/20 06:49 Pulse Ox 95 10/08/20 05:09 - Physical Examination General: No Apparent Distress HEENT: Positive: PERRL, Normocephaly, Mucus Membranes Moist Neck: Positive: neck supple. Negative: JVD/HJR Cardiac: Positive: irregularly irregular, S1/S2 Lungs: Positive: clear to auscultation, Normal Breath Sounds Neuro: Positive: Grossly Intact Abdomen: Positive: Soft Skin: Negative: Rash Musculoskeletal: No Fluid Collection Extremities: Present: upper extr. pulses, lower extr. pulses. Absent: edema - Imaging and Cardiology EKG: report reviewed, image reviewed Echo: report reviewed (09/18/2020 - EF 40-45%, mild concentric LVH, RV sys fxn mildly reduced, no significant valvular abnormality) - Telemetry EKG Rhythm: Atrial Fibrillation Myocardial infarction: septal NH (old age or ind, anterior NH (old age or i - Allied health notes Allied health notes reviewed: nursing
--- NOTE | 2020-10-08 10:13 | Progress Note ---
Assessment and Plan 1. Acute kidney injury: Vasomotor LOLI in the setting of shock. ATN likely. Renal US negative for hydro. Multiple bladder scan negative. Patient required hemodialysis due to significant decline in the renal function. Hemodialysis: 09/20, 09/21, 09/25. Monitor renal function. Creatinine level fuctuates. Renal prognosis is guarded. Avoid nephrotoxic agents. Meds dosage based on GFR. 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 2. FEN: Hyperkalemia, improved. Metabolic acidosis, improved, monitor. Monitor volume status and lytes. 3. Acute hypoxic respiratory failure: Covid test positive. Supplemental O2. 4. Acute CHF: Echocardiogram: EF 40-45%. CHF orderset / pathway. Monitor. 5. Atrial fibrillation with RVR: On Amio and Metoprolol. Followed by Cards. 6. Elevated troponin: Followed by Cards. 7. Coagulopathy: Trend. 8. Shock / Hypotension: Multifactorial, monitor. Off pressors. 9. Elevated Transaminases: Improved. 10. Metabolic encephalopathy: Monitor. 11. HIV. 12. Anemia, POA: Monitor. Subjective: Patient was not examined today. However the examination findings from other providers noted. The current and previous medical records are reviewed in detail as are laboratory and imaging data reviewed when appropriate. Medications being given are also reviewed. In addition the case has been discussed with the attending hospitalist and the nurse when needed. New renal recommendations as above. Subjective Date of service: 10/08/20 Principal diagnosis: Sepsis, AF with RVR Objective - Vital Signs Vital signs: Vital Signs - 12hr 10/07/20 10/08/20 10/08/20 22:15 05:09 06:49 Temperature 98.1 F 98.3 F Pulse Rate 103 H 126 H Respiratory 18 18 Rate Blood Pressure 109/78 91/57 Blood Pressure 102/71 [Right] O2 Sat by Pulse 97 95 Oximetry - Lab 10/07/20 06:45 10/07/20 06:45 Most recent lab results ABG pH 7.508 (7.320-7.450) H 09/17/20 10:28 ABG O2 Saturation 93.4 (0-100) 09/17/20 10:28 Calcium 8.4 mg/dL (8.4-10.2) 10/07/20 06:45 Phosphorus 2.90 mg/dL (2.5-4.5) 09/26/20 07:06 Magnesium 1.70 mg/dL (1.7-2.3) 09/26/20 07:06 Urine Creatinine 61.0 mg/dL (0.1-20.0) H 09/18/20 12:00 Urine Sodium 62 mmol/L 09/18/20 12:00 Medications & Allergies - Medications Allergies/Adverse Reactions: Allergies heparin Adverse Reaction (Verified 09/29/20 16:33) thrombocytopenia PF4 Home Medications: Home Medications Medication Instructions Recorded Confirmed Last Taken Type AtorvaSTATin [Lipitor] 20 mg PO QHS 09/18/20 09/18/20 Unknown History Dolutegravir [Tivicay] 50 mg PO DAILY 09/18/20 09/18/20 Unknown History Emtricitabine/Tenofov Alafenam 1 tab PO DAILY 09/18/20 09/18/20 Unknown History [Descovy 200-25 mg (Nf)] allopurinoL [Zyloprim] 300 mg PO QDAY 09/18/20 09/18/20 Unknown History Amiodarone [Cordarone 200 MG TAB] 200 mg PO DAILY #60 tablet 10/01/20 Unknown Rx Apixaban [Eliquis] 2.5 mg PO Q12HR #60 tablet 10/01/20 Unknown Rx Ascorbic Acid [Vitamin C] 500 mg PO BID #60 tablet 10/01/20 Unknown Rx Cholecalciferol Vit D3 [Vitamin D3 1,000 unit PO QDAY #30 tablet 10/01/20 Unknown Rx 1,000 UNIT TAB] Famotidine [Pepcid] 20 mg PO DAILY #30 tablet 10/01/20 Unknown Rx Midodrine [Proamatine] 5 mg PO TID@0800,1200,1600 #90 10/01/20 Unknown Rx tablet QUEtiapine [SEROquel] 25 mg PO BID #30 tablet 10/01/20 Unknown Rx Zinc Sulfate 220 mg PO QDAY #30 capsule 10/01/20 Unknown Rx carvediloL [Coreg] 3.125 mg PO BID #60 tablet 10/01/20 Unknown Rx haloperidoL [Haldol] 2 mg PO Q8H PRN #30 tablet 10/01/20 Unknown Rx Active Medications: Generic Name Dose Route Start Last Admin Trade Name Freq PRN Reason Stop Dose Admin Acetaminophen 650 mg 09/17/20 13:52 09/30/20 21:12 Acetaminophen 325 Mg Tab PO 650 mg Q4H PRN Administration Pain MILD(1-3)/Fever >100.5/ANGEL Albuterol 2.5 mg 09/17/20 13:52 09/17/20 20:47 Albuterol 2.5 Mg/3 Ml Nebu IH 2.5 mg Q4HRT PRN Administration Shortness Of Breath Amiodarone HCl 200 mg 10/01/20 22:00 10/08/20 09:09 Amiodarone 200 Mg Tab PO 200 mg BID EDIE Administration Lipase/Protease/Amylase 1 each 09/20/20 13:10 Lipase 10,500/Protease 25,000/Amylase 43,750 (Units) Dr Patrick FEEDTUBE PRN PRN For Clogged Feeding Tube Apixaban 5 mg 10/05/20 22:00 10/08/20 09:11 Apixaban 5 Mg Tab PO 5 mg Q12HR EDIE Administration Ascorbic Acid 500 mg 09/20/20 22:00 10/08/20 09:08 Ascorbic Acid 500 Mg Tab PO 500 mg BID EDIE Administration Cholecalciferol 1,000 unit 09/21/20 10:00 10/08/20 09:10 Cholecalciferol (Vit D3) 1000 Unit (25 Mcg) Tab PO 1,000 unit QDAY EDIE Administration Docusate Sodium 100 mg 10/05/20 11:00 10/08/20 09:11 Docusate Sodium 100 Mg/10 Ml Oral Liqd PO 100 mg BID EDIE Administration Emtricitabine 200 mg 09/30/20 11:00 10/06/20 10:52 Emtricitabine 200 Mg Cap PO 200 mg Q48H EDIE Administration Famotidine 20 mg 09/24/20 10:00 10/08/20 09:11 Famotidine 20 Mg Tab PO 20 mg DAILY EDIE Administration Haloperidol Lactate 5 mg 10/01/20 11:34 10/04/20 13:32 Haloperidol Lactate 5 Mg/1 Ml Inj IM 5 mg Q6H PRN Administration Agitation Heparin Sodium (Porcine) 3,000 unit 09/20/20 10:06 Heparin 10,000 Units/10 Ml Vial IV VIRGIL PRN hemodialysis Sodium Chloride 100 mls @ 999 mls/hr 09/20/20 10:06 Nacl 0.9% IV VIRGIL PRN Hypotension Metoprolol Tartrate 5 mg 09/19/20 19:06 09/24/20 10:59 Metoprolol Tartrate 5 Mg/5 Ml Inj IV 5 mg Q8HR PRN Administration HR > 135 Minute Metoprolol Tartrate 12.5 mg 10/05/20 14:00 10/08/20 09:11 Metoprolol Tartrate 25 Mg Tab PO 12.5 mg TID EDIE Administration Midodrine 10 mg 10/07/20 08:00 10/08/20 09:07 Midodrine 5 Mg Tab PO 10 mg TID@0800,1200,1600 EDIE Administration Ondansetron HCl 4 mg 09/17/20 13:52 Ondansetron 4 Mg/2 Ml Inj IV Q8H PRN Nausea And Vomiting Quetiapine Fumarate 12.5 mg 10/03/20 22:00 10/07/20 22:27 Quetiapine 25 Mg Tab PO 12.5 mg QHS EDIE Administration Quetiapine Fumarate 12.5 mg 10/04/20 10:00 10/08/20 09:08 Quetiapine 25 Mg Tab PO 12.5 mg QAM EDIE Administration Simple Syrup 15 ml 09/20/20 13:10 Simple Syrup 15 Ml FEEDTUBE PRN PRN Hypoglycemia Simple Syrup 30 ml 09/20/20 13:10 Simple Syrup 15 Ml FEEDTUBE PRN PRN Hypoglycemia Sodium Bicarbonate 325 mg 09/20/20 13:10 Sodium Bicarbonate 325 Mg Tab FEEDTUBE PRN PRN For Clogged Feeding Tube Sodium Chloride 10 ml 09/17/20 22:00 10/08/20 09:12 Sodium Chloride 0.9% 10 Ml Flush Syringe IV 10 ml BID EDIE Administration Sodium Chloride 10 ml 09/17/20 13:52 09/24/20 09:15 Sodium Chloride 0.9% 10 Ml Flush Syringe IV 10 ml PRN PRN Administration LINE FLUSH Tamsulosin HCl 0.4 mg 10/07/20 13:00 10/08/20 09:08 Tamsulosin 0.4 Mg Cap PO 0.4 mg QDAY EDIE Administration Tenofovir Disoproxil Fumarate 300 mg 09/30/20 11:00 10/06/20 10:52 Tenofovir 300 Mg Tab PO 300 mg Q48H EDIE Administration Valproic Acid 250 mg 10/03/20 22:00 10/08/20 09:07 Valproic Acid 250 Mg Cap PO 250 mg BID EDIE Administration Zinc Sulfate 220 mg 09/21/20 10:00 10/08/20 09:12 Zinc Sulfate 220 Mg Cap PO 220 mg QDAY EDIE Administration
[2020-10-08] MEDS: TENOFOVIR 300 MG TAB PO SCH (11:45)
[2020-10-08] MEDS: EMTRICITABINE 200 MG CAP PO SCH (11:45)
--- NOTE | 2020-10-08 11:50 | Consultation ---
History of Present Illness - Reason for Consult Consult date: 10/08/20 Reason for consult: ams - History of Present Psychiatric Illness Per ED Note: This is a 70-year-old male presents to the emergency department with a complaint of a 3-day history of shortness of breath. He has a past medical history of HIV, hypertension and atrial fibrillation. The patient says that he is compliant with his Xarelto. The patient was admitted to this hospital 2 days ago, 09/15, for similar complaints. Shortly after the patient was admitted he left AMA. His diagnosis from that day was A. fib with RVR, hyponatremia, hypomagnesemia and acute kidney injury. 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 He has not taken anything for symptoms prior to presentation today. He denies any fever, chest pain, lower extremity swelling. The patient was seen today, he is awake. He is calm and cooperative. He is a/o x 2. He was unable to tell me the day of the month, but knew that it was the "" and who the president was. He says he feels okay. He says "but this is sticking me." He shows me the area where the cabral catheter hold is. The patient says he came to the hospital because "I was sick." He denies ant past psych history or being on psych psych meds. He also denies illicit drug use or alcohol. The patient denies SI/HI or hallucinations of any kind. PAST PSYCHIATRIC HISTORY Diagnoses: Denies Suicide attempts or Self-harm behavior: denies Prior psychiatric hospitalizations: Denies Substance Abuse history: None reported Previous psychiatric medications tried: Denies Outpatient treatment: None reported PAST MEDICAL HISTORY: None reported Family Psychiatric History: None reported or documented SOCIAL HISTORY Marital Status: Single Living Arrangements: with significant other Employment Status: Disabled Access to guns/weapons: None reported Education: History of Abuse: None reported Legal History: None reported REVIEW OF SYSTEMS Constitutional: Negative for weight loss ENT: Negative for stridor Respiratory: Negative for cough or hemoptysis All other systems reviewed and are negative MENTAL STATUS EXAMINATION General Appearance and Behavior: Age appropriate, good hygiene, wearing appropriate clothes, good eye contact, cooperative polite with questioning. Cooperation: Participating/engaged Psychomotor Behavior: unremarkable and within normal limits Mood: okay Affect and affective range: congruent with mood Thought Process: Fluent/Logical Thought Content: Within reality Speech: Normal volume, Regular rate and rhythm Intellectual Functioning: Average Suicidal Ideation: Denies SI Homicidal Ideation: Denies HI Hallucinations: Denies Delusions: Note elicited Impulse Control: Unimpaired Insight and Judgment: Limited insight and judgment, Memory: Limited Attention: Normal Orientation: Alert, oriented x 2 Assessment (1) Delirium Current Visit: Yes Status: Acute Treatment Plan Agree with currently prescribed meds Sitter: Defer to primary Medical: Per primary Disposition: Do not recommend acute psychiatric inpatient The quality assurance coordinator to give him resources Will follow for med management and psych progress Case staffed with Dr. Ulloa Medications and Allergies Allergies Allergy/AdvReac Type Severity Reaction Status Date / Time heparin AdvReac thrombocyto Verified 09/29/20 16:33 penia Home Medications Medication Instructions Recorded Confirmed Last Taken Type AtorvaSTATin [Lipitor] 20 mg PO QHS 09/18/20 09/18/20 Unknown History Dolutegravir [Tivicay] 50 mg PO DAILY 09/18/20 09/18/20 Unknown History Emtricitabine/Tenofov Alafenam 1 tab PO DAILY 09/18/20 09/18/20 Unknown History [Descovy 200-25 mg (Nf)] allopurinoL [Zyloprim] 300 mg PO QDAY 09/18/20 09/18/20 Unknown History Amiodarone [Cordarone 200 MG TAB] 200 mg PO DAILY #60 tablet 10/01/20 Unknown Rx Apixaban [Eliquis] 2.5 mg PO Q12HR #60 tablet 10/01/20 Unknown Rx Ascorbic Acid [Vitamin C] 500 mg PO BID #60 tablet 10/01/20 Unknown Rx Cholecalciferol Vit D3 [Vitamin D3 1,000 unit PO QDAY #30 tablet 10/01/20 Unknown Rx 1,000 UNIT TAB] Famotidine [Pepcid] 20 mg PO DAILY #30 tablet 10/01/20 Unknown Rx Midodrine [Proamatine] 5 mg PO TID@0800,1200,1600 #90 10/01/20 Unknown Rx tablet QUEtiapine [SEROquel] 25 mg PO BID #30 tablet 10/01/20 Unknown Rx Zinc Sulfate 220 mg PO QDAY #30 capsule 10/01/20 Unknown Rx carvediloL [Coreg] 3.125 mg PO BID #60 tablet 10/01/20 Unknown Rx haloperidoL [Haldol] 2 mg PO Q8H PRN #30 tablet 10/01/20 Unknown Rx Active Meds: Active Medications Acetaminophen (Acetaminophen 325 Mg Tab) 650 mg PO Q4H PRN PRN Reason: Pain MILD(1-3)/Fever >100.5/ANGEL Last Admin: 09/30/20 21:12 Dose: 650 mg Documented by: Albuterol (Albuterol 2.5 Mg/3 Ml Nebu) 2.5 mg IH Q4HRT PRN PRN Reason: Shortness Of Breath Last Admin: 09/17/20 20:47 Dose: 2.5 mg Documented by: Amiodarone HCl (Amiodarone 200 Mg Tab) 200 mg PO BID [facility] Last Admin: 10/08/20 09:09 Dose: 200 mg Documented by: Lipase/Protease/Amylase (Lipase 10,500/Protease 25,000/Amylase 43,750 (Units) Dr Patrick) 1 each FEEDTUBE PRN PRN PRN Reason: For Clogged Feeding Tube Apixaban (Apixaban 5 Mg Tab) 5 mg PO Q12HR [facility] Last Admin: 10/08/20 09:11 Dose: 5 mg Documented by: Ascorbic Acid (Ascorbic Acid 500 Mg Tab) 500 mg PO BID [facility] Last Admin: 10/08/20 09:08 Dose: 500 mg Documented by: Cholecalciferol (Cholecalciferol (Vit D3) 1000 Unit (25 Mcg) Tab) 1,000 unit PO QDAY [facility] Last Admin: 10/08/20 09:10 Dose: 1,000 unit Documented by: Docusate Sodium (Docusate Sodium 100 Mg/10 Ml Oral Liqd) 100 mg PO BID [facility] Last Admin: 10/08/20 09:11 Dose: 100 mg Documented by: Emtricitabine (Emtricitabine 200 Mg Cap) 200 mg PO Q48H [facility] Last Admin: 10/06/20 10:52 Dose: 200 mg Documented by: Famotidine (Famotidine 20 Mg Tab) 20 mg PO DAILY [facility] Last Admin: 10/08/20 09:11 Dose: 20 mg Documented by: Haloperidol Lactate (Haloperidol Lactate 5 Mg/1 Ml Inj) 5 mg IM Q6H PRN PRN Reason: Agitation Last Admin: 10/04/20 13:32 Dose: 5 mg Documented by: Heparin Sodium (Porcine) (Heparin 10,000 Units/10 Ml Vial) 3,000 unit IV VIRGIL PRN PRN Reason: hemodialysis Sodium Chloride (Nacl 0.9%) 100 mls @ 999 mls/hr IV VIRGIL PRN PRN Reason: Hypotension Metoprolol Tartrate (Metoprolol Tartrate 5 Mg/5 Ml Inj) 5 mg IV Q8HR PRN PRN Reason: HR > 135 Minute Last Admin: 09/24/20 10:59 Dose: 5 mg Documented by: Metoprolol Tartrate (Metoprolol Tartrate 25 Mg Tab) 12.5 mg PO TID [facility] Last Admin: 10/08/20 09:11 Dose: 12.5 mg Documented by: Midodrine (Midodrine 5 Mg Tab) 10 mg PO TID@0800,1200,1600 [facility] Last Admin: 10/08/20 09:07 Dose: 10 mg Documented by: Ondansetron HCl (Ondansetron 4 Mg/2 Ml Inj) 4 mg IV Q8H PRN PRN Reason: Nausea And Vomiting Quetiapine Fumarate (Quetiapine 25 Mg Tab) 12.5 mg PO QHS [facility] Last Admin: 10/07/20 22:27 Dose: 12.5 mg Documented by: Quetiapine Fumarate (Quetiapine 25 Mg Tab) 12.5 mg PO QAM [facility] Last Admin: 10/08/20 09:08 Dose: 12.5 mg Documented by: Simple Syrup (Simple Syrup 15 Ml) 15 ml FEEDTUBE PRN PRN PRN Reason: Hypoglycemia Simple Syrup (Simple Syrup 15 Ml) 30 ml FEEDTUBE PRN PRN PRN Reason: Hypoglycemia Sodium Bicarbonate (Sodium Bicarbonate 325 Mg Tab) 325 mg FEEDTUBE PRN PRN PRN Reason: For Clogged Feeding Tube Sodium Chloride (Sodium Chloride 0.9% 10 Ml Flush Syringe) 10 ml IV BID [facility] Last Admin: 10/08/20 09:12 Dose: 10 ml Documented by: Sodium Chloride (Sodium Chloride 0.9% 10 Ml Flush Syringe) 10 ml IV PRN PRN PRN Reason: LINE FLUSH Last Admin: 09/24/20 09:15 Dose: 10 ml Documented by: Tamsulosin HCl (Tamsulosin 0.4 Mg Cap) 0.4 mg PO QDAY [facility] Last Admin: 10/08/20 09:08 Dose: 0.4 mg Documented by: Tenofovir Disoproxil Fumarate (Tenofovir 300 Mg Tab) 300 mg PO Q48H [facility] Last Admin: 10/06/20 10:52 Dose: 300 mg Documented by: Valproic Acid (Valproic Acid 250 Mg Cap) 250 mg PO BID [facility] Last Admin: 10/08/20 09:07 Dose: 250 mg Documented by: Zinc Sulfate (Zinc Sulfate 220 Mg Cap) 220 mg PO QDAY [facility] Last Admin: 10/08/20 09:12 Dose: 220 mg Documented by: Mental Status Exam - Vital signs Last Vital Signs Temp 98.3 F 10/08/20 05:09 Pulse 126 H 10/08/20 05:09 Resp 18 10/08/20 05:09 BP 102/71 10/08/20 06:49 Pulse Ox 95 10/08/20 05:09 Results Result Diagrams: 10/07/20 06:45 10/07/20 06:45 All other labs normal.
--- NOTE | 2020-10-08 14:18 | Progress Note ---
Assessment and Plan Acute hypoxemic respiratory failure. Atrial fibrillation with rapid ventricular response. Gram negative bacteremia Acute congestive heart failure exacerbation. Acute on chronic kidney injury. Anemia that is microcytic. Coagulopathy appears to be acquired. Respiratory alkalosis. Mild metabolic acidosis. Possible severe sepsis with shock due to a urinary tract infection. Urinary tract infection (i do feel that despite his CHF history he is septic now and with relative IVVD and will benefit from gentle hydration acutely - continue anticoagulation with Eliquis - [employer] evaluation and advance diet as tolerated (pureed with thin liquids) - s/p AB's per ID recommendations; continue ART - continue COVID-19 interventions - continue care as below otherwise; - continue to wean supplemental oxygen for target O2 sat's > 92% acutely - Aspiration precautions - prn bronchodilators with pulmonary hygiene per RT - continue accuchecks with glycemic control per SSI for target blood glucose of < 180 mg/dL; avoid hypoglycemia - avoid nephrotoxins, renally dose all medications - continue to avoid benzodiazepine's, reduce the possibility of delirium - prn analgesia per pain score - Maintenance of sleep-wake cycle, avoid delirium - G.I. & VTE prophylaxis - PT/OT/ROM exercises - continue mobility protocols for pressure ulcer prophylaxis - Monitor hemodynamics closely - continue other care per attending / other consultants - discharge planning ongoing concurrently COVID SPECIFIC INTERVENTIONS - Remdesivir as per ID/Pulmonary developed protocols (not given due to LOLI) - systemic steroids for severe COVID-19 infection (s/p Decadron) - follow repeat COVID tests results - zinc and vitamin C supplementation - Monitor inflammatory markers per facility protocol - ferritin, Ddimer, CRP - therapeutic anticoagulation per system Protocol based on d-dimer and clinical considerations - Continue contact and airborne isolation .... Re-evaluate in am & prn Subjective Date of service: 10/07/20 Principal diagnosis: Acute Hypoxemic Resp Failure; COVID-19 infxn; Septic Shock; A-Fib with RVR Interval history: Patient is seen today for: Acute hypoxemic respiratory failure; A-fib with RVR; AE-CHF; LOLI on CKD; Severe sepsis with shock; UTI Seen and examined at bedside; 24hour events reviewed; nursing and respiratory care staff consulted; no adverse overnight events reported to me; resting peacefully in bed; remains with delirium; repeat COVID-19 test was positive; no emesis or overt aspiration Objective Vital Signs - 12hr 10/07/20 10/07/20 10/07/20 05:08 08:43 09:10 Temperature 98.3 F Pulse Rate 114 H Respiratory 18 Rate Blood Pressure 97/73 104/80 104/80 O2 Sat by Pulse 100 Oximetry Constitutional: no acute distress, alert, other (elderly male without increased respiratory effort at rest) Eyes: non-icteric ENT: oropharynx moist Neck: supple, no lymphadenopathy, no JVD Effort: mildly labored Ascultation: Bilateral: rhonchi Percussion: Bilateral: not dull Cardiovascular: irregular rhythm Gastrointestinal: normoactive bowel sounds, soft, non-tender, non-distended Integumentary: normal Extremities: no cyanosis, no edema, pulses normal, no ischemia or petechiae Neurologic: non-focal exam (grossly), pupils equal and round, CN II-XII normal, motor strength normal and, other (mild delirium) Psychiatric: other (mild delirium) CBC and BMP: 10/07/20 06:45 10/07/20 06:45 ABG, PT/INR, D-dimer: ABG ABG pH 7.508 (7.320-7.450) H 09/17/20 10:28 POC ABG pCO2 22.8 mmHg (32.0-48.0) L 09/17/20 10:28 POC ABG pO2 66.8 mmHg (83-108) L 09/17/20 10:28 POC ABG HCO3 17.7 09/17/20 10:28 ABG O2 Saturation 93.4 (0-100) 09/17/20 10:28 PT/INR, D-dimer PT 15.7 Sec. (12.2-14.9) H 09/24/20 12:13 INR 1.27 (0.87-1.13) H 09/24/20 12:13 D-Dimer 1772.86 ng/mlDDU (0-234) H 09/24/20 05:00 Abnormal lab findings: Abnormal Labs 09/17/20 09/17/20 09/17/20 10:28 10:47 10:47 WBC 11.1 H RBC 3.44 L Hgb 11.2 L Hct 32.8 L MCV 95 H MCH MCHC RDW Plt Count Lymph % (Auto) [place] % (Auto) Lymph # (Auto) [place] # (Auto) Seg Neutrophils % Seg Neuts % (Manual) Lymphocytes % (Manual) 4.0 L Monocytes % (Manual) Nucleated RBC % Seg Neutrophils # Seg Neutrophils # Man 10.7 H Abs Lymphs (Manual) Lymphocytes # (Manual) 0.4 L PT 32.9 H INR 3.16 H APTT 51.1 H D-Dimer Heparin Anti-Xa Level ABG pH 7.508 H POC ABG pCO2 22.8 L POC ABG pO2 66.8 L ABG Oxyhemoglobin 92.7 L ABG Sodium 127.4 L ABG Potassium 4.7 H ABG Glucose 121 H Carboxyhemoglobin 0.4 L Sodium Potassium Chloride Carbon Dioxide BUN Creatinine Glucose POC Glucose Calcium Phosphorus Ferritin Total Bilirubin AST ALT Alkaline Phosphatase Lactate Dehydrogenase Total Creatine Kinase Troponin T C-Reactive Protein NT-Pro-B Natriuret Pep Serum Total Protein Total Protein Albumin Cholesterol LDL Cholesterol Direct HDL Cholesterol PTH Intact Arterial Blood Glucose 121 H Urine WBC (Auto) Urine Creatinine Valproic Acid Heparin-induced Plt Ab Lymph Enumerat CD4/CD8 Absolute CD3 Count Absolute CD4 Count % CD8 Cells Absolute CD8 Count Absolute CD19 Count Coronavirus (PCR) HIV-1 RNA PCR copies/ml HIV-1 RNA (PCR) log 09/17/20 09/17/20 09/17/20 10:47 10:47 13:54 WBC RBC Hgb Hct MCV MCH MCHC RDW Plt Count Lymph % (Auto) [place] % (Auto) Lymph # (Auto) [place] # (Auto) Seg Neutrophils % Seg Neuts % (Manual) Lymphocytes % (Manual) Monocytes % (Manual) Nucleated RBC % Seg Neutrophils # Seg Neutrophils # Man Abs Lymphs (Manual) Lymphocytes # (Manual) PT INR APTT D-Dimer Heparin Anti-Xa Level ABG pH POC ABG pCO2 POC ABG pO2 ABG Oxyhemoglobin ABG Sodium ABG Potassium ABG Glucose Carboxyhemoglobin Sodium 125 L Potassium Chloride 95.3 L Carbon Dioxide 17 L BUN 64 H Creatinine 4.6 H D Glucose 104 H POC Glucose Calcium Phosphorus Ferritin Total Bilirubin AST 69 H ALT Alkaline Phosphatase Lactate Dehydrogenase Total Creatine Kinase Troponin T 0.061 H D 0.058 H C-Reactive Protein NT-Pro-B Natriuret Pep 06518 H Serum Total Protein Total Protein Albumin 1.9 L Cholesterol 48 L LDL Cholesterol Direct 4 L HDL Cholesterol 9 L PTH Intact Arterial Blood Glucose Urine WBC (Auto) Urine Creatinine Valproic Acid Heparin-induced Plt Ab Lymph Enumerat CD4/CD8 Absolute CD3 Count Absolute CD4 Count % CD8 Cells Absolute CD8 Count Absolute CD19 Count Coronavirus (PCR) HIV-1 RNA PCR copies/ml HIV-1 RNA (PCR) log 09/17/20 09/17/20 09/17/20 16:36 17:35 17:35 WBC RBC 3.25 L Hgb 10.7 L Hct 31.1 L MCV 96 H MCH 33 H MCHC RDW Plt Count Lymph % (Auto) [place] % (Auto) Lymph # (Auto) [place] # (Auto) Seg Neutrophils % Seg Neuts % (Manual) Lymphocytes % (Manual) Monocytes % (Manual) Nucleated RBC % Seg Neutrophils # Seg Neutrophils # Man Abs Lymphs (Manual) Lymphocytes # (Manual) PT 31.9 H INR 3.04 H APTT 50.9 H D-Dimer Heparin Anti-Xa Level ABG pH POC ABG pCO2 POC ABG pO2 ABG Oxyhemoglobin ABG Sodium ABG Potassium ABG Glucose Carboxyhemoglobin Sodium Potassium Chloride Carbon Dioxide BUN Creatinine Glucose POC Glucose Calcium Phosphorus Ferritin Total Bilirubin AST ALT Alkaline Phosphatase Lactate Dehydrogenase Total Creatine Kinase Troponin T 0.057 H C-Reactive Protein NT-Pro-B Natriuret Pep Serum Total Protein Total Protein Albumin Cholesterol LDL Cholesterol Direct HDL Cholesterol PTH Intact Arterial Blood Glucose Urine WBC (Auto) Urine Creatinine Valproic Acid Heparin-induced Plt Ab Lymph Enumerat CD4/CD8 Absolute CD3 Count Absolute CD4 Count % CD8 Cells Absolute CD8 Count Absolute CD19 Count Coronavirus (PCR) HIV-1 RNA PCR copies/ml HIV-1 RNA (PCR) log 09/17/20 09/18/20 09/18/20 17:35 03:19 03:19 WBC RBC 3.32 L Hgb 10.9 L Hct 32.0 L MCV 96 H MCH 33 H MCHC RDW Plt Count 138 L Lymph % (Auto) [place] % (Auto) Lymph # (Auto) [place] # (Auto) Seg Neutrophils % Seg Neuts % (Manual) 95.0 H Lymphocytes % (Manual) 3.0 L Monocytes % (Manual) Nucleated RBC % Seg Neutrophils # Seg Neutrophils # Man 8.1 H Abs Lymphs (Manual) Lymphocytes # (Manual) 0.3 L PT INR APTT D-Dimer Heparin Anti-Xa Level ABG pH POC ABG pCO2 POC ABG pO2 ABG Oxyhemoglobin ABG Sodium ABG Potassium ABG Glucose Carboxyhemoglobin Sodium Potassium Chloride Carbon Dioxide 16 L BUN 70 H Creatinine 4.6 H 4.7 H Glucose 104 H POC Glucose Calcium 8.2 L Phosphorus Ferritin Total Bilirubin 1.60 H AST 128 H ALT 67 H Alkaline Phosphatase Lactate Dehydrogenase Total Creatine Kinase Troponin T C-Reactive Protein NT-Pro-B Natriuret Pep Serum Total Protein Total Protein 5.2 L D Albumin 2.5 L Cholesterol LDL Cholesterol Direct HDL Cholesterol PTH Intact Arterial Blood Glucose Urine WBC (Auto) Urine Creatinine Valproic Acid Heparin-induced Plt Ab Lymph Enumerat CD4/CD8 Absolute CD3 Count Absolute CD4 Count % CD8 Cells Absolute CD8 Count Absolute CD19 Count Coronavirus (PCR) HIV-1 RNA PCR copies/ml HIV-1 RNA (PCR) log 09/18/20 09/18/20 09/18/20 09:39 12:00 12:00 WBC RBC Hgb Hct MCV MCH MCHC RDW Plt Count Lymph % (Auto) [place] % (Auto) Lymph # (Auto) [place] # (Auto) Seg Neutrophils % Seg Neuts % (Manual) Lymphocytes % (Manual) Monocytes % (Manual) Nucleated RBC % Seg Neutrophils # Seg Neutrophils # Man Abs Lymphs (Manual) Lymphocytes # (Manual) PT INR APTT D-Dimer Heparin Anti-Xa Level ABG pH POC ABG pCO2 POC ABG pO2 ABG Oxyhemoglobin ABG Sodium ABG Potassium ABG Glucose Carboxyhemoglobin Sodium Potassium Chloride Carbon Dioxide BUN Creatinine Glucose POC Glucose Calcium Phosphorus Ferritin Total Bilirubin AST ALT Alkaline Phosphatase Lactate Dehydrogenase Total Creatine Kinase Troponin T C-Reactive Protein NT-Pro-B Natriuret Pep Serum Total Protein Total Protein Albumin Cholesterol LDL Cholesterol Direct HDL Cholesterol PTH Intact Arterial Blood Glucose Urine WBC (Auto) 71.0 H Urine Creatinine 61.0 H Valproic Acid Heparin-induced Plt Ab Lymph Enumerat CD4/CD8 Absolute CD3 Count Absolute CD4 Count % CD8 Cells Absolute CD8 Count Absolute CD19 Count Coronavirus (PCR) Positive A HIV-1 RNA PCR copies/ml HIV-1 RNA (PCR) log 09/18/20 09/18/20 09/18/20 15:07 15:07 18:33 WBC RBC Hgb 10.7 L Hct 31.3 L MCV MCH MCHC RDW Plt Count Lymph % (Auto) [place] % (Auto) Lymph # (Auto) [place] # (Auto) Seg Neutrophils % Seg Neuts % (Manual) Lymphocytes % (Manual) Monocytes % (Manual) Nucleated RBC % Seg Neutrophils # Seg Neutrophils # Man Abs Lymphs (Manual) Lymphocytes # (Manual) PT 20.3 H INR 1.73 H APTT 40.8 H D-Dimer Heparin Anti-Xa Level 1.09 H ABG pH POC ABG pCO2 POC ABG pO2 ABG Oxyhemoglobin ABG Sodium ABG Potassium ABG Glucose Carboxyhemoglobin Sodium Potassium Chloride Carbon Dioxide BUN Creatinine Glucose POC Glucose Calcium Phosphorus Ferritin Total Bilirubin AST ALT Alkaline Phosphatase Lactate Dehydrogenase Total Creatine Kinase Troponin T C-Reactive Protein NT-Pro-B Natriuret Pep Serum Total Protein Total Protein Albumin Cholesterol LDL Cholesterol Direct HDL Cholesterol PTH Intact Arterial Blood Glucose Urine WBC (Auto) Urine Creatinine Valproic Acid Heparin-induced Plt Ab Lymph Enumerat CD4/CD8 Absolute CD3 Count Absolute CD4 Count % CD8 Cells Absolute CD8 Count Absolute CD19 Count Coronavirus (PCR) HIV-1 RNA PCR copies/ml HIV-1 RNA (PCR) log 09/19/20 09/19/20 09/19/20 03:30 03:30 03:30 WBC RBC 3.29 L Hgb 10.9 L Hct 30.9 L MCV MCH 33 H MCHC 35 H RDW Plt Count Lymph % (Auto) [place] % (Auto) Lymph # (Auto) [place] # (Auto) Seg Neutrophils % Seg Neuts % (Manual) Lymphocytes % (Manual) Monocytes % (Manual) Nucleated RBC % Seg Neutrophils # Seg Neutrophils # Man Abs Lymphs (Manual) Lymphocytes # (Manual) PT INR APTT D-Dimer Heparin Anti-Xa Level ABG pH POC ABG pCO2 POC ABG pO2 ABG Oxyhemoglobin ABG Sodium ABG Potassium ABG Glucose Carboxyhemoglobin Sodium 133 L Potassium Chloride Carbon Dioxide 17 L BUN 94 H Creatinine 5.0 H Glucose 120 H POC Glucose Calcium Phosphorus 6.30 H Ferritin Total Bilirubin 2.40 H AST 163 H ALT 109 H Alkaline Phosphatase 160 H Lactate Dehydrogenase Total Creatine Kinase 20 L Troponin T C-Reactive Protein NT-Pro-B Natriuret Pep Serum Total Protein Total Protein 6.2 L Albumin 2.0 L Cholesterol LDL Cholesterol Direct HDL Cholesterol PTH Intact 161.4 H Arterial Blood Glucose Urine WBC (Auto) Urine Creatinine Valproic Acid Heparin-induced Plt Ab Lymph Enumerat CD4/CD8 Absolute CD3 Count Absolute CD4 Count % CD8 Cells Absolute CD8 Count Absolute CD19 Count Coronavirus (PCR) HIV-1 RNA PCR copies/ml HIV-1 RNA (PCR) log 09/19/20 09/19/20 09/19/20 06:35 13:35 13:35 WBC RBC Hgb Hct MCV MCH MCHC RDW Plt Count Lymph % (Auto) [place] % (Auto) Lymph # (Auto) [place] # (Auto) Seg Neutrophils % Seg Neuts % (Manual) Lymphocytes % (Manual) Monocytes % (Manual) Nucleated RBC % Seg Neutrophils # Seg Neutrophils # Man Abs Lymphs (Manual) 223 L Lymphocytes # (Manual) PT INR APTT D-Dimer Heparin Anti-Xa Level ABG pH POC ABG pCO2 POC ABG pO2 ABG Oxyhemoglobin ABG Sodium ABG Potassium ABG Glucose Carboxyhemoglobin Sodium Potassium Chloride Carbon Dioxide BUN Creatinine Glucose POC Glucose 123 H Calcium Phosphorus Ferritin Total Bilirubin AST ALT Alkaline Phosphatase Lactate Dehydrogenase Total Creatine Kinase Troponin T C-Reactive Protein NT-Pro-B Natriuret Pep Serum Total Protein Total Protein Albumin Cholesterol LDL Cholesterol Direct HDL Cholesterol PTH Intact Arterial Blood Glucose Urine WBC (Auto) Urine Creatinine Valproic Acid Heparin-induced Plt Ab Lymph Enumerat CD4/CD8 0.70 L Absolute CD3 Count 175 L Absolute CD4 Count 70 L % CD8 Cells 45 H Absolute CD8 Count 101 L Absolute CD19 Count 26 L Coronavirus (PCR) HIV-1 RNA PCR copies/ml 67 H HIV-1 RNA (PCR) log 1.83 H 09/19/20 09/20/20 09/20/20 23:37 04:00 04:00 WBC RBC 3.43 L Hgb 11.1 L Hct 32.2 L MCV MCH MCHC RDW Plt Count 131 L Lymph % (Auto) [place] % (Auto) Lymph # (Auto) [place] # (Auto) Seg Neutrophils % Seg Neuts % (Manual) 88.0 H Lymphocytes % (Manual) 3.0 L Monocytes % (Manual) 9.0 H Nucleated RBC % Seg Neutrophils # Seg Neutrophils # Man 8.2 H Abs Lymphs (Manual) Lymphocytes # (Manual) 0.3 L PT INR APTT D-Dimer Heparin Anti-Xa Level 0.10 L ABG pH POC ABG pCO2 POC ABG pO2 ABG Oxyhemoglobin ABG Sodium ABG Potassium ABG Glucose Carboxyhemoglobin Sodium Potassium Chloride Carbon Dioxide BUN Creatinine Glucose POC Glucose 135 H Calcium Phosphorus Ferritin Total Bilirubin AST ALT Alkaline Phosphatase Lactate Dehydrogenase Total Creatine Kinase Troponin T C-Reactive Protein NT-Pro-B Natriuret Pep Serum Total Protein Total Protein Albumin Cholesterol LDL Cholesterol Direct HDL Cholesterol PTH Intact Arterial Blood Glucose Urine WBC (Auto) Urine Creatinine Valproic Acid Heparin-induced Plt Ab Lymph Enumerat CD4/CD8 Absolute CD3 Count Absolute CD4 Count % CD8 Cells Absolute CD8 Count Absolute CD19 Count Coronavirus (PCR) HIV-1 RNA PCR copies/ml HIV-1 RNA (PCR) log 09/20/20 09/20/20 09/20/20 04:00 05:37 11:20 WBC RBC Hgb Hct MCV MCH MCHC RDW Plt Count Lymph % (Auto) [place] % (Auto) Lymph # (Auto) [place] # (Auto) Seg Neutrophils % Seg Neuts % (Manual) Lymphocytes % (Manual) Monocytes % (Manual) Nucleated RBC % Seg Neutrophils # Seg Neutrophils # Man Abs Lymphs (Manual) Lymphocytes # (Manual) PT INR APTT D-Dimer Heparin Anti-Xa Level ABG pH POC ABG pCO2 POC ABG pO2 ABG Oxyhemoglobin ABG Sodium ABG Potassium ABG Glucose Carboxyhemoglobin Sodium Potassium Chloride Carbon Dioxide 16 L BUN 119 H Creatinine 6.2 H Glucose 136 H POC Glucose 137 H 108 H Calcium Phosphorus Ferritin Total Bilirubin AST ALT Alkaline Phosphatase Lactate Dehydrogenase Total Creatine Kinase Troponin T C-Reactive Protein NT-Pro-B Natriuret Pep Serum Total Protein Total Protein Albumin Cholesterol LDL Cholesterol Direct HDL Cholesterol PTH Intact Arterial Blood Glucose Urine WBC (Auto) Urine Creatinine Valproic Acid Heparin-induced Plt Ab Lymph Enumerat CD4/CD8 Absolute CD3 Count Absolute CD4 Count % CD8 Cells Absolute CD8 Count Absolute CD19 Count Coronavirus (PCR) HIV-1 RNA PCR copies/ml HIV-1 RNA (PCR) log 09/20/20 09/20/20 09/20/20 17:10 17:10 17:10 WBC RBC Hgb Hct MCV MCH MCHC RDW Plt Count Lymph % (Auto) [place] % (Auto) Lymph # (Auto) [place] # (Auto) Seg Neutrophils % Seg Neuts % (Manual) Lymphocytes % (Manual) Monocytes % (Manual) Nucleated RBC % Seg Neutrophils # Seg Neutrophils # Man Abs Lymphs (Manual) Lymphocytes # (Manual) PT INR APTT D-Dimer 4271.58 H Heparin Anti-Xa Level ABG pH POC ABG pCO2 POC ABG pO2 ABG Oxyhemoglobin ABG Sodium ABG Potassium ABG Glucose Carboxyhemoglobin Sodium Potassium Chloride Carbon Dioxide BUN Creatinine 6.0 H Glucose POC Glucose Calcium Phosphorus Ferritin 696.6 H Total Bilirubin AST ALT Alkaline Phosphatase Lactate Dehydrogenase Total Creatine Kinase Troponin T C-Reactive Protein NT-Pro-B Natriuret Pep Serum Total Protein Total Protein Albumin Cholesterol LDL Cholesterol Direct HDL Cholesterol PTH Intact Arterial Blood Glucose Urine WBC (Auto) Urine Creatinine Valproic Acid Heparin-induced Plt Ab Lymph Enumerat CD4/CD8 Absolute CD3 Count Absolute CD4 Count % CD8 Cells Absolute CD8 Count Absolute CD19 Count Coronavirus (PCR) HIV-1 RNA PCR copies/ml HIV-1 RNA (PCR) log 09/20/20 09/20/20 09/20/20 17:10 18:21 23:14 WBC RBC Hgb Hct MCV MCH MCHC RDW Plt Count Lymph % (Auto) [place] % (Auto) Lymph # (Auto) [place] # (Auto) Seg Neutrophils % Seg Neuts % (Manual) Lymphocytes % (Manual) Monocytes % (Manual) Nucleated RBC % Seg Neutrophils # Seg Neutrophils # Man Abs Lymphs (Manual) Lymphocytes # (Manual) PT INR APTT D-Dimer Heparin Anti-Xa Level ABG pH POC ABG pCO2 POC ABG pO2 ABG Oxyhemoglobin ABG Sodium ABG Potassium ABG Glucose Carboxyhemoglobin Sodium Potassium Chloride Carbon Dioxide BUN Creatinine Glucose POC Glucose 129 H 170 H Calcium Phosphorus Ferritin Total Bilirubin AST ALT Alkaline Phosphatase Lactate Dehydrogenase 209 H Total Creatine Kinase Troponin T C-Reactive Protein 10.60 H NT-Pro-B Natriuret Pep Serum Total Protein Total Protein Albumin Cholesterol LDL Cholesterol Direct HDL Cholesterol PTH Intact Arterial Blood Glucose Urine WBC (Auto) Urine Creatinine Valproic Acid Heparin-induced Plt Ab Lymph Enumerat CD4/CD8 Absolute CD3 Count Absolute CD4 Count % CD8 Cells Absolute CD8 Count Absolute CD19 Count Coronavirus (PCR) HIV-1 RNA PCR copies/ml HIV-1 RNA (PCR) log 09/21/20 09/21/20 09/21/20 05:35 17:09 23:18 WBC RBC Hgb Hct MCV MCH MCHC RDW Plt Count Lymph % (Auto) [place] % (Auto) Lymph # (Auto) [place] # (Auto) Seg Neutrophils % Seg Neuts % (Manual) Lymphocytes % (Manual) Monocytes % (Manual) Nucleated RBC % Seg Neutrophils # Seg Neutrophils # Man Abs Lymphs (Manual) Lymphocytes # (Manual) PT INR APTT D-Dimer Heparin Anti-Xa Level ABG pH POC ABG pCO2 POC ABG pO2 ABG Oxyhemoglobin ABG Sodium ABG Potassium ABG Glucose Carboxyhemoglobin Sodium Potassium Chloride Carbon Dioxide BUN Creatinine Glucose POC Glucose 170 H 140 H 139 H Calcium Phosphorus Ferritin Total Bilirubin AST ALT Alkaline Phosphatase Lactate Dehydrogenase Total Creatine Kinase Troponin T C-Reactive Protein NT-Pro-B Natriuret Pep Serum Total Protein Total Protein Albumin Cholesterol LDL Cholesterol Direct HDL Cholesterol PTH Intact Arterial Blood Glucose Urine WBC (Auto) Urine Creatinine Valproic Acid Heparin-induced Plt Ab Lymph Enumerat CD4/CD8 Absolute CD3 Count Absolute CD4 Count % CD8 Cells Absolute CD8 Count Absolute CD19 Count Coronavirus (PCR) HIV-1 RNA PCR copies/ml HIV-1 RNA (PCR) log 09/21/20 09/21/20 09/21/20 Unknown Unknown Unknown WBC RBC 3.56 L Hgb 11.3 L Hct 33.2 L MCV MCH MCHC RDW Plt Count 125 L Lymph % (Auto) [place] % (Auto) Lymph # (Auto) [place] # (Auto) Seg Neutrophils % Seg Neuts % (Manual) 90.0 H Lymphocytes % (Manual) 8.0 L Monocytes % (Manual) Nucleated RBC % 1.0 H Seg Neutrophils # Seg Neutrophils # Man 9.4 H Abs Lymphs (Manual) Lymphocytes # (Manual) 0.8 L PT 16.8 H INR 1.36 H APTT D-Dimer Heparin Anti-Xa Level ABG pH POC ABG pCO2 POC ABG pO2 ABG Oxyhemoglobin ABG Sodium ABG Potassium ABG Glucose Carboxyhemoglobin Sodium Potassium Chloride Carbon Dioxide BUN 83 H Creatinine 4.3 H Glucose 163 H POC Glucose Calcium Phosphorus Ferritin Total Bilirubin 2.40 H AST ALT 57 H Alkaline Phosphatase < 5 L Lactate Dehydrogenase Total Creatine Kinase Troponin T C-Reactive Protein NT-Pro-B Natriuret Pep Serum Total Protein Total Protein Albumin 1.9 L Cholesterol LDL Cholesterol Direct HDL Cholesterol PTH Intact Arterial Blood Glucose Urine WBC (Auto) Urine Creatinine Valproic Acid Heparin-induced Plt Ab Lymph Enumerat CD4/CD8 Absolute CD3 Count Absolute CD4 Count % CD8 Cells Absolute CD8 Count Absolute CD19 Count Coronavirus (PCR) HIV-1 RNA PCR copies/ml HIV-1 RNA (PCR) log 09/22/20 09/22/20 09/22/20 05:38 05:38 05:38 WBC 15.8 H RBC 3.36 L Hgb 10.8 L Hct 31.0 L MCV MCH MCHC 35 H RDW Plt Count 68 L Lymph % (Auto) 3.1 L [place] % (Auto) 10.7 H Lymph # (Auto) 0.5 L [place] # (Auto) 1.7 H Seg Neutrophils % 85.9 H Seg Neuts % (Manual) Lymphocytes % (Manual) Monocytes % (Manual) Nucleated RBC % Seg Neutrophils # 13.6 H Seg Neutrophils # Man Abs Lymphs (Manual) Lymphocytes # (Manual) PT INR APTT D-Dimer 3281.49 H Heparin Anti-Xa Level ABG pH POC ABG pCO2 POC ABG pO2 ABG Oxyhemoglobin ABG Sodium ABG Potassium ABG Glucose Carboxyhemoglobin Sodium Potassium Chloride Carbon Dioxide BUN 61 H Creatinine 3.1 H Glucose 129 H POC Glucose Calcium Phosphorus Ferritin Total Bilirubin AST ALT Alkaline Phosphatase Lactate Dehydrogenase 277 H Total Creatine Kinase Troponin T C-Reactive Protein 6.60 H NT-Pro-B Natriuret Pep Serum Total Protein Total Protein Albumin Cholesterol LDL Cholesterol Direct HDL Cholesterol PTH Intact Arterial Blood Glucose Urine WBC (Auto) Urine Creatinine Valproic Acid Heparin-induced Plt Ab Lymph Enumerat CD4/CD8 Absolute CD3 Count Absolute CD4 Count % CD8 Cells Absolute CD8 Count Absolute CD19 Count Coronavirus (PCR) HIV-1 RNA PCR copies/ml HIV-1 RNA (PCR) log 09/22/20 09/22/20 09/22/20 05:38 05:44 11:26 WBC RBC Hgb Hct MCV MCH MCHC RDW Plt Count Lymph % (Auto) [place] % (Auto) Lymph # (Auto) [place] # (Auto) Seg Neutrophils % Seg Neuts % (Manual) Lymphocytes % (Manual) Monocytes % (Manual) Nucleated RBC % Seg Neutrophils # Seg Neutrophils # Man Abs Lymphs (Manual) Lymphocytes # (Manual) PT INR APTT D-Dimer Heparin Anti-Xa Level ABG pH POC ABG pCO2 POC ABG pO2 ABG Oxyhemoglobin ABG Sodium ABG Potassium ABG Glucose Carboxyhemoglobin Sodium Potassium Chloride Carbon Dioxide BUN Creatinine Glucose POC Glucose 112 H 131 H Calcium Phosphorus Ferritin 927.8 H Total Bilirubin AST ALT Alkaline Phosphatase Lactate Dehydrogenase Total Creatine Kinase Troponin T C-Reactive Protein NT-Pro-B Natriuret Pep Serum Total Protein Total Protein Albumin Cholesterol LDL Cholesterol Direct HDL Cholesterol PTH Intact Arterial Blood Glucose Urine WBC (Auto) Urine Creatinine Valproic Acid Heparin-induced Plt Ab Lymph Enumerat CD4/CD8 Absolute CD3 Count Absolute CD4 Count % CD8 Cells Absolute CD8 Count Absolute CD19 Count Coronavirus (PCR) HIV-1 RNA PCR copies/ml HIV-1 RNA (PCR) log 09/22/20 09/22/20 09/22/20 15:12 15:12 15:12 WBC RBC Hgb Hct MCV MCH MCHC RDW Plt Count Lymph % (Auto) [place] % (Auto) Lymph # (Auto) [place] # (Auto) Seg Neutrophils % Seg Neuts % (Manual) Lymphocytes % (Manual) Monocytes % (Manual) Nucleated RBC % Seg Neutrophils # Seg Neutrophils # Man Abs Lymphs (Manual) Lymphocytes # (Manual) PT 17.3 H INR 1.42 H APTT D-Dimer Heparin Anti-Xa Level ABG pH POC ABG pCO2 POC ABG pO2 ABG Oxyhemoglobin ABG Sodium ABG Potassium ABG Glucose Carboxyhemoglobin Sodium Potassium Chloride Carbon Dioxide BUN Creatinine 3.0 H Glucose POC Glucose Calcium Phosphorus Ferritin Total Bilirubin AST ALT Alkaline Phosphatase Lactate Dehydrogenase Total Creatine Kinase Troponin T C-Reactive Protein NT-Pro-B Natriuret Pep Serum Total Protein Total Protein Albumin Cholesterol LDL Cholesterol Direct HDL Cholesterol PTH Intact Arterial Blood Glucose Urine WBC (Auto) Urine Creatinine Valproic Acid Heparin-induced Plt Ab Weak positive H Lymph Enumerat CD4/CD8 Absolute CD3 Count Absolute CD4 Count % CD8 Cells Absolute CD8 Count Absolute CD19 Count Coronavirus (PCR) HIV-1 RNA PCR copies/ml HIV-1 RNA (PCR) log 09/22/20 09/22/20 09/23/20 16:53 23:55 04:36 WBC 14.2 H RBC 3.05 L Hgb 9.8 L Hct 28.4 L MCV MCH MCHC RDW Plt Count 39 L Lymph % (Auto) [place] % (Auto) Lymph # (Auto) [place] # (Auto) Seg Neutrophils % Seg Neuts % (Manual) 91.0 H Lymphocytes % (Manual) 2.0 L Monocytes % (Manual) Nucleated RBC % Seg Neutrophils # Seg Neutrophils # Man 12.9 H Abs Lymphs (Manual) Lymphocytes # (Manual) 0.3 L PT INR APTT D-Dimer Heparin Anti-Xa Level ABG pH POC ABG pCO2 POC ABG pO2 ABG Oxyhemoglobin ABG Sodium ABG Potassium ABG Glucose Carboxyhemoglobin Sodium Potassium Chloride Carbon Dioxide BUN Creatinine Glucose POC Glucose 138 H 171 H Calcium Phosphorus Ferritin Total Bilirubin AST ALT Alkaline Phosphatase Lactate Dehydrogenase Total Creatine Kinase Troponin T C-Reactive Protein NT-Pro-B Natriuret Pep Serum Total Protein Total Protein Albumin Cholesterol LDL Cholesterol Direct HDL Cholesterol PTH Intact Arterial Blood Glucose Urine WBC (Auto) Urine Creatinine Valproic Acid Heparin-induced Plt Ab Lymph Enumerat CD4/CD8 Absolute CD3 Count Absolute CD4 Count % CD8 Cells Absolute CD8 Count Absolute CD19 Count Coronavirus (PCR) HIV-1 RNA PCR copies/ml HIV-1 RNA (PCR) log 09/23/20 09/23/20 09/23/20 04:36 05:41 11:38 WBC RBC Hgb Hct MCV MCH MCHC RDW Plt Count Lymph % (Auto) [place] % (Auto) Lymph # (Auto) [place] # (Auto) Seg Neutrophils % Seg Neuts % (Manual) Lymphocytes % (Manual) Monocytes % (Manual) Nucleated RBC % Seg Neutrophils # Seg Neutrophils # Man Abs Lymphs (Manual) Lymphocytes # (Manual) PT INR APTT D-Dimer Heparin Anti-Xa Level ABG pH POC ABG pCO2 POC ABG pO2 ABG Oxyhemoglobin ABG Sodium ABG Potassium ABG Glucose Carboxyhemoglobin Sodium Potassium Chloride Carbon Dioxide BUN 76 H Creatinine 3.1 H Glucose 157 H POC Glucose 136 H 141 H Calcium Phosphorus Ferritin Total Bilirubin AST ALT Alkaline Phosphatase Lactate Dehydrogenase Total Creatine Kinase Troponin T C-Reactive Protein NT-Pro-B Natriuret Pep Serum Total Protein Total Protein Albumin Cholesterol LDL Cholesterol Direct HDL Cholesterol PTH Intact Arterial Blood Glucose Urine WBC (Auto) Urine Creatinine Valproic Acid Heparin-induced Plt Ab Lymph Enumerat CD4/CD8 Absolute CD3 Count Absolute CD4 Count % CD8 Cells Absolute CD8 Count Absolute CD19 Count Coronavirus (PCR) HIV-1 RNA PCR copies/ml HIV-1 RNA (PCR) log 09/23/20 09/23/20 09/24/20 17:09 23:51 05:00 WBC 24.2 H RBC 3.23 L Hgb 10.0 L Hct 29.7 L MCV MCH MCHC RDW Plt Count 74 L Lymph % (Auto) [place] % (Auto) Lymph # (Auto) [place] # (Auto) Seg Neutrophils % Seg Neuts % (Manual) Lymphocytes % (Manual) Monocytes % (Manual) Nucleated RBC % Seg Neutrophils # Seg Neutrophils # Man Abs Lymphs (Manual) Lymphocytes # (Manual) PT INR APTT D-Dimer Heparin Anti-Xa Level ABG pH POC ABG pCO2 POC ABG pO2 ABG Oxyhemoglobin ABG Sodium ABG Potassium ABG Glucose Carboxyhemoglobin Sodium Potassium Chloride Carbon Dioxide BUN Creatinine Glucose POC Glucose 128 H 128 H Calcium Phosphorus Ferritin Total Bilirubin AST ALT Alkaline Phosphatase Lactate Dehydrogenase Total Creatine Kinase Troponin T C-Reactive Protein NT-Pro-B Natriuret Pep Serum Total Protein Total Protein Albumin Cholesterol LDL Cholesterol Direct HDL Cholesterol PTH Intact Arterial Blood Glucose Urine WBC (Auto) Urine Creatinine Valproic Acid Heparin-induced Plt Ab Lymph Enumerat CD4/CD8 Absolute CD3 Count Absolute CD4 Count % CD8 Cells Absolute CD8 Count Absolute CD19 Count Coronavirus (PCR) HIV-1 RNA PCR copies/ml HIV-1 RNA (PCR) log 09/24/20 09/24/20 09/24/20 05:00 05:00 05:00 WBC RBC Hgb Hct MCV MCH MCHC RDW Plt Count Lymph % (Auto) [place] % (Auto) Lymph # (Auto) [place] # (Auto) Seg Neutrophils % Seg Neuts % (Manual) Lymphocytes % (Manual) Monocytes % (Manual) Nucleated RBC % Seg Neutrophils # Seg Neutrophils # Man Abs Lymphs (Manual) Lymphocytes # (Manual) PT INR APTT D-Dimer 1772.86 H Heparin Anti-Xa Level ABG pH POC ABG pCO2 POC ABG pO2 ABG Oxyhemoglobin ABG Sodium ABG Potassium ABG Glucose Carboxyhemoglobin Sodium Potassium Chloride 107.1 H Carbon Dioxide BUN 90 H Creatinine 3.1 H Glucose 118 H POC Glucose Calcium Phosphorus Ferritin 1190.0 H Total Bilirubin AST ALT Alkaline Phosphatase Lactate Dehydrogenase 276 H Total Creatine Kinase Troponin T C-Reactive Protein 4.20 H NT-Pro-B Natriuret Pep Serum Total Protein Total Protein Albumin Cholesterol LDL Cholesterol Direct HDL Cholesterol PTH Intact Arterial Blood Glucose Urine WBC (Auto) Urine Creatinine Valproic Acid Heparin-induced Plt Ab Lymph Enumerat CD4/CD8 Absolute CD3 Count Absolute CD4 Count % CD8 Cells Absolute CD8 Count Absolute CD19 Count Coronavirus (PCR) HIV-1 RNA PCR copies/ml HIV-1 RNA (PCR) log 09/24/20 09/24/20 09/24/20 05:12 11:25 12:09 WBC RBC Hgb Hct MCV MCH MCHC RDW Plt Count Lymph % (Auto) [place] % (Auto) Lymph # (Auto) [place] # (Auto) Seg Neutrophils % Seg Neuts % (Manual) Lymphocytes % (Manual) Monocytes % (Manual) Nucleated RBC % Seg Neutrophils # Seg Neutrophils # Man Abs Lymphs (Manual) Lymphocytes # (Manual) PT INR APTT D-Dimer Heparin Anti-Xa Level ABG pH POC ABG pCO2 POC ABG pO2 ABG Oxyhemoglobin ABG Sodium ABG Potassium ABG Glucose Carboxyhemoglobin Sodium Potassium Chloride Carbon Dioxide BUN Creatinine 3.1 H Glucose POC Glucose 114 H 110 H Calcium Phosphorus Ferritin Total Bilirubin AST ALT Alkaline Phosphatase Lactate Dehydrogenase Total Creatine Kinase Troponin T C-Reactive Protein NT-Pro-B Natriuret Pep Serum Total Protein Total Protein Albumin Cholesterol LDL Cholesterol Direct HDL Cholesterol PTH Intact Arterial Blood Glucose Urine WBC (Auto) Urine Creatinine Valproic Acid Heparin-induced Plt Ab Lymph Enumerat CD4/CD8 Absolute CD3 Count Absolute CD4 Count % CD8 Cells Absolute CD8 Count Absolute CD19 Count Coronavirus (PCR) HIV-1 RNA PCR copies/ml HIV-1 RNA (PCR) log 09/24/20 09/24/20 09/24/20 12:13 12:13 17:41 WBC 20.8 H RBC 3.04 L Hgb 9.5 L Hct 28.0 L MCV MCH MCHC RDW Plt Count 78 L Lymph % (Auto) [place] % (Auto) Lymph # (Auto) [place] # (Auto) Seg Neutrophils % Seg Neuts % (Manual) Lymphocytes % (Manual) Monocytes % (Manual) Nucleated RBC % Seg Neutrophils # Seg Neutrophils # Man Abs Lymphs (Manual) Lymphocytes # (Manual) PT 15.7 H INR 1.27 H APTT D-Dimer Heparin Anti-Xa Level ABG pH POC ABG pCO2 POC ABG pO2 ABG Oxyhemoglobin ABG Sodium ABG Potassium ABG Glucose Carboxyhemoglobin Sodium Potassium Chloride Carbon Dioxide BUN Creatinine Glucose POC Glucose 133 H Calcium Phosphorus Ferritin Total Bilirubin AST ALT Alkaline Phosphatase Lactate Dehydrogenase Total Creatine Kinase Troponin T C-Reactive Protein NT-Pro-B Natriuret Pep Serum Total Protein Total Protein Albumin Cholesterol LDL Cholesterol Direct HDL Cholesterol PTH Intact Arterial Blood Glucose Urine WBC (Auto) Urine Creatinine Valproic Acid Heparin-induced Plt Ab Lymph Enumerat CD4/CD8 Absolute CD3 Count Absolute CD4 Count % CD8 Cells Absolute CD8 Count Absolute CD19 Count Coronavirus (PCR) HIV-1 RNA PCR copies/ml HIV-1 RNA (PCR) log 09/24/20 09/25/20 09/25/20 23:34 06:40 06:40 WBC RBC Hgb Hct MCV MCH MCHC RDW Plt Count Lymph % (Auto) [place] % (Auto) Lymph # (Auto) [place] # (Auto) Seg Neutrophils % Seg Neuts % (Manual) Lymphocytes % (Manual) Monocytes % (Manual) Nucleated RBC % Seg Neutrophils # Seg Neutrophils # Man Abs Lymphs (Manual) Lymphocytes # (Manual) PT INR APTT D-Dimer Heparin Anti-Xa Level ABG pH POC ABG pCO2 POC ABG pO2 ABG Oxyhemoglobin ABG Sodium ABG Potassium ABG Glucose Carboxyhemoglobin Sodium Potassium Chloride 109.0 H Carbon Dioxide BUN 98 H Creatinine 3.0 H 3.0 H Glucose 111 H POC Glucose 113 H Calcium Phosphorus Ferritin Total Bilirubin AST ALT Alkaline Phosphatase Lactate Dehydrogenase Total Creatine Kinase Troponin T C-Reactive Protein NT-Pro-B Natriuret Pep Serum Total Protein Total Protein Albumin Cholesterol LDL Cholesterol Direct HDL Cholesterol PTH Intact Arterial Blood Glucose Urine WBC (Auto) Urine Creatinine Valproic Acid Heparin-induced Plt Ab Lymph Enumerat CD4/CD8 Absolute CD3 Count Absolute CD4 Count % CD8 Cells Absolute CD8 Count Absolute CD19 Count Coronavirus (PCR) HIV-1 RNA PCR copies/ml HIV-1 RNA (PCR) log 09/25/20 09/25/20 09/25/20 10:45 12:45 18:03 WBC 20.7 H RBC 3.33 L Hgb 10.2 L Hct 31.3 L MCV MCH MCHC RDW Plt Count 139 L Lymph % (Auto) [place] % (Auto) Lymph # (Auto) [place] # (Auto) Seg Neutrophils % Seg Neuts % (Manual) Lymphocytes % (Manual) Monocytes % (Manual) Nucleated RBC % Seg Neutrophils # Seg Neutrophils # Man Abs Lymphs (Manual) Lymphocytes # (Manual) PT INR APTT D-Dimer Heparin Anti-Xa Level ABG pH POC ABG pCO2 POC ABG pO2 ABG Oxyhemoglobin ABG Sodium ABG Potassium ABG Glucose Carboxyhemoglobin Sodium Potassium Chloride Carbon Dioxide BUN Creatinine Glucose POC Glucose 108 H 114 H Calcium Phosphorus Ferritin Total Bilirubin AST ALT Alkaline Phosphatase Lactate Dehydrogenase Total Creatine Kinase Troponin T C-Reactive Protein NT-Pro-B Natriuret Pep Serum Total Protein Total Protein Albumin Cholesterol LDL Cholesterol Direct HDL Cholesterol PTH Intact Arterial Blood Glucose Urine WBC (Auto) Urine Creatinine Valproic Acid Heparin-induced Plt Ab Lymph Enumerat CD4/CD8 Absolute CD3 Count Absolute CD4 Count % CD8 Cells Absolute CD8 Count Absolute CD19 Count Coronavirus (PCR) HIV-1 RNA PCR copies/ml HIV-1 RNA (PCR) log 09/25/20 09/26/20 09/26/20 23:29 05:00 07:06 WBC 17.0 H RBC 3.10 L Hgb 9.6 L Hct 28.8 L MCV MCH MCHC RDW Plt Count Lymph % (Auto) [place] % (Auto) Lymph # (Auto) [place] # (Auto) Seg Neutrophils % Seg Neuts % (Manual) Lymphocytes % (Manual) Monocytes % (Manual) Nucleated RBC % Seg Neutrophils # Seg Neutrophils # Man Abs Lymphs (Manual) Lymphocytes # (Manual) PT INR APTT D-Dimer Heparin Anti-Xa Level ABG pH POC ABG pCO2 POC ABG pO2 ABG Oxyhemoglobin ABG Sodium ABG Potassium ABG Glucose Carboxyhemoglobin Sodium Potassium Chloride Carbon Dioxide BUN Creatinine Glucose POC Glucose 111 H 115 H Calcium Phosphorus Ferritin Total Bilirubin AST ALT Alkaline Phosphatase Lactate Dehydrogenase Total Creatine Kinase Troponin T C-Reactive Protein NT-Pro-B Natriuret Pep Serum Total Protein Total Protein Albumin Cholesterol LDL Cholesterol Direct HDL Cholesterol PTH Intact Arterial Blood Glucose Urine WBC (Auto) Urine Creatinine Valproic Acid Heparin-induced Plt Ab Lymph Enumerat CD4/CD8 Absolute CD3 Count Absolute CD4 Count % CD8 Cells Absolute CD8 Count Absolute CD19 Count Coronavirus (PCR) HIV-1 RNA PCR copies/ml HIV-1 RNA (PCR) log 09/26/20 09/26/20 09/27/20 07:06 17:26 04:00 WBC RBC Hgb Hct MCV MCH MCHC RDW Plt Count Lymph % (Auto) [place] % (Auto) Lymph # (Auto) [place] # (Auto) Seg Neutrophils % Seg Neuts % (Manual) Lymphocytes % (Manual) Monocytes % (Manual) Nucleated RBC % Seg Neutrophils # Seg Neutrophils # Man Abs Lymphs (Manual) Lymphocytes # (Manual) PT INR APTT D-Dimer Heparin Anti-Xa Level ABG pH POC ABG pCO2 POC ABG pO2 ABG Oxyhemoglobin ABG Sodium ABG Potassium ABG Glucose Carboxyhemoglobin Sodium Potassium Chloride Carbon Dioxide BUN 69 H 67 H Creatinine 2.2 H 2.3 H Glucose 107 H 121 H POC Glucose 124 H Calcium Phosphorus Ferritin Total Bilirubin AST ALT Alkaline Phosphatase Lactate Dehydrogenase Total Creatine Kinase Troponin T C-Reactive Protein NT-Pro-B Natriuret Pep Serum Total Protein Total Protein Albumin Cholesterol LDL Cholesterol Direct HDL Cholesterol PTH Intact Arterial Blood Glucose Urine WBC (Auto) Urine Creatinine Valproic Acid Heparin-induced Plt Ab Lymph Enumerat CD4/CD8 Absolute CD3 Count Absolute CD4 Count % CD8 Cells Absolute CD8 Count Absolute CD19 Count Coronavirus (PCR) HIV-1 RNA PCR copies/ml HIV-1 RNA (PCR) log 09/27/20 09/27/20 09/27/20 04:00 05:00 17:11 WBC 14.6 H RBC 2.72 L Hgb 8.6 L Hct 25.8 L MCV 95 H MCH MCHC RDW Plt Count Lymph % (Auto) 4.3 L [place] % (Auto) Lymph # (Auto) 0.6 L [place] # (Auto) 0.9 H Seg Neutrophils % 89.6 H Seg Neuts % (Manual) Lymphocytes % (Manual) Monocytes % (Manual) Nucleated RBC % Seg Neutrophils # 13.1 H Seg Neutrophils # Man Abs Lymphs (Manual) Lymphocytes # (Manual) PT INR APTT D-Dimer Heparin Anti-Xa Level ABG pH POC ABG pCO2 POC ABG pO2 ABG Oxyhemoglobin ABG Sodium ABG Potassium ABG Glucose Carboxyhemoglobin Sodium Potassium Chloride Carbon Dioxide BUN Creatinine 2.4 H Glucose POC Glucose 132 H Calcium Phosphorus Ferritin Total Bilirubin AST ALT Alkaline Phosphatase Lactate Dehydrogenase Total Creatine Kinase Troponin T C-Reactive Protein NT-Pro-B Natriuret Pep Serum Total Protein Total Protein Albumin Cholesterol LDL Cholesterol Direct HDL Cholesterol PTH Intact Arterial Blood Glucose Urine WBC (Auto) Urine Creatinine Valproic Acid Heparin-induced Plt Ab Lymph Enumerat CD4/CD8 Absolute CD3 Count Absolute CD4 Count % CD8 Cells Absolute CD8 Count Absolute CD19 Count Coronavirus (PCR) HIV-1 RNA PCR copies/ml HIV-1 RNA (PCR) log 09/28/20 09/28/20 09/29/20 04:46 04:46 04:45 WBC 14.6 H RBC 2.66 L Hgb 8.4 L Hct 25.3 L MCV 95 H MCH MCHC RDW Plt Count Lymph % (Auto) [place] % (Auto) Lymph # (Auto) [place] # (Auto) Seg Neutrophils % Seg Neuts % (Manual) Lymphocytes % (Manual) Monocytes % (Manual) Nucleated RBC % Seg Neutrophils # Seg Neutrophils # Man Abs Lymphs (Manual) Lymphocytes # (Manual) PT INR APTT D-Dimer Heparin Anti-Xa Level ABG pH POC ABG pCO2 POC ABG pO2 ABG Oxyhemoglobin ABG Sodium ABG Potassium ABG Glucose Carboxyhemoglobin Sodium Potassium Chloride Carbon Dioxide BUN 71 H 63 H Creatinine 2.3 H 2.2 H Glucose 105 H POC Glucose Calcium Phosphorus Ferritin Total Bilirubin AST ALT Alkaline Phosphatase Lactate Dehydrogenase Total Creatine Kinase Troponin T C-Reactive Protein NT-Pro-B Natriuret Pep Serum Total Protein Total Protein Albumin Cholesterol LDL Cholesterol Direct HDL Cholesterol PTH Intact Arterial Blood Glucose Urine WBC (Auto) Urine Creatinine Valproic Acid Heparin-induced Plt Ab Lymph Enumerat CD4/CD8 Absolute CD3 Count Absolute CD4 Count % CD8 Cells Absolute CD8 Count Absolute CD19 Count Coronavirus (PCR) HIV-1 RNA PCR copies/ml HIV-1 RNA (PCR) log 09/29/20 09/29/20 09/29/20 04:45 05:43 17:50 WBC RBC 2.92 L Hgb 9.6 L Hct 28.1 L MCV 96 H MCH 33 H MCHC RDW Plt Count Lymph % (Auto) [place] % (Auto) Lymph # (Auto) [place] # (Auto) Seg Neutrophils % Seg Neuts % (Manual) Lymphocytes % (Manual) Monocytes % (Manual) Nucleated RBC % Seg Neutrophils # Seg Neutrophils # Man Abs Lymphs (Manual) Lymphocytes # (Manual) PT INR APTT D-Dimer Heparin Anti-Xa Level ABG pH POC ABG pCO2 POC ABG pO2 ABG Oxyhemoglobin ABG Sodium ABG Potassium ABG Glucose Carboxyhemoglobin Sodium Potassium Chloride Carbon Dioxide BUN Creatinine Glucose POC Glucose 69 L 132 H Calcium Phosphorus Ferritin Total Bilirubin AST ALT Alkaline Phosphatase Lactate Dehydrogenase Total Creatine Kinase Troponin T C-Reactive Protein NT-Pro-B Natriuret Pep Serum Total Protein Total Protein Albumin Cholesterol LDL Cholesterol Direct HDL Cholesterol PTH Intact Arterial Blood Glucose Urine WBC (Auto) Urine Creatinine Valproic Acid Heparin-induced Plt Ab Lymph Enumerat CD4/CD8 Absolute CD3 Count Absolute CD4 Count % CD8 Cells Absolute CD8 Count Absolute CD19 Count Coronavirus (PCR) HIV-1 RNA PCR copies/ml HIV-1 RNA (PCR) log 09/30/20 09/30/20 09/30/20 04:47 04:47 04:47 WBC RBC 2.47 L Hgb 8.1 L Hct 23.9 L MCV 97 H MCH 33 H MCHC RDW Plt Count Lymph % (Auto) [place] % (Auto) Lymph # (Auto) [place] # (Auto) Seg Neutrophils % Seg Neuts % (Manual) Lymphocytes % (Manual) Monocytes % (Manual) Nucleated RBC % Seg Neutrophils # Seg Neutrophils # Man Abs Lymphs (Manual) Lymphocytes # (Manual) PT INR APTT D-Dimer Heparin Anti-Xa Level ABG pH POC ABG pCO2 POC ABG pO2 ABG Oxyhemoglobin ABG Sodium ABG Potassium ABG Glucose Carboxyhemoglobin Sodium Potassium Chloride Carbon Dioxide 31 H BUN 63 H Creatinine 2.1 H Glucose POC Glucose Calcium Phosphorus Ferritin Total Bilirubin AST ALT Alkaline Phosphatase Lactate Dehydrogenase Total Creatine Kinase Troponin T C-Reactive Protein NT-Pro-B Natriuret Pep Serum Total Protein 5.5 L Total Protein 5.9 L Albumin 2.2 L 2.1 L Cholesterol LDL Cholesterol Direct HDL Cholesterol PTH Intact Arterial Blood Glucose Urine WBC (Auto) Urine Creatinine Valproic Acid Heparin-induced Plt Ab Lymph Enumerat CD4/CD8 Absolute CD3 Count Absolute CD4 Count % CD8 Cells Absolute CD8 Count Absolute CD19 Count Coronavirus (PCR) HIV-1 RNA PCR copies/ml HIV-1 RNA (PCR) log 10/01/20 10/01/20 10/02/20 07:16 08:30 05:10 WBC RBC Hgb Hct MCV MCH MCHC RDW Plt Count Lymph % (Auto) [place] % (Auto) Lymph # (Auto) [place] # (Auto) Seg Neutrophils % Seg Neuts % (Manual) Lymphocytes % (Manual) Monocytes % (Manual) Nucleated RBC % Seg Neutrophils # Seg Neutrophils # Man Abs Lymphs (Manual) Lymphocytes # (Manual) PT INR APTT D-Dimer Heparin Anti-Xa Level ABG pH POC ABG pCO2 POC ABG pO2 ABG Oxyhemoglobin ABG Sodium ABG Potassium ABG Glucose Carboxyhemoglobin Sodium Potassium Chloride Carbon Dioxide BUN 58 H 48 H Creatinine 2.2 H 2.0 H Glucose POC Glucose Calcium Phosphorus Ferritin Total Bilirubin AST ALT Alkaline Phosphatase Lactate Dehydrogenase Total Creatine Kinase Troponin T C-Reactive Protein NT-Pro-B Natriuret Pep Serum Total Protein Total Protein Albumin Cholesterol LDL Cholesterol Direct HDL Cholesterol PTH Intact Arterial Blood Glucose Urine WBC (Auto) Urine Creatinine Valproic Acid Heparin-induced Plt Ab Lymph Enumerat CD4/CD8 Absolute CD3 Count Absolute CD4 Count % CD8 Cells Absolute CD8 Count Absolute CD19 Count Coronavirus (PCR) Positive A HIV-1 RNA PCR copies/ml HIV-1 RNA (PCR) log 10/03/20 10/03/20 10/04/20 08:12 08:12 18:19 WBC RBC Hgb Hct MCV MCH MCHC RDW Plt Count Lymph % (Auto) [place] % (Auto) Lymph # (Auto) [place] # (Auto) Seg Neutrophils % Seg Neuts % (Manual) Lymphocytes % (Manual) Monocytes % (Manual) Nucleated RBC % Seg Neutrophils # Seg Neutrophils # Man Abs Lymphs (Manual) Lymphocytes # (Manual) PT INR APTT D-Dimer Heparin Anti-Xa Level ABG pH POC ABG pCO2 POC ABG pO2 ABG Oxyhemoglobin ABG Sodium ABG Potassium ABG Glucose Carboxyhemoglobin Sodium Potassium 5.4 H D Chloride Carbon Dioxide BUN 48 H 39 H Creatinine 2.2 H 2.7 H Glucose POC Glucose Calcium 8.0 L Phosphorus Ferritin Total Bilirubin AST ALT Alkaline Phosphatase Lactate Dehydrogenase Total Creatine Kinase Troponin T C-Reactive Protein NT-Pro-B Natriuret Pep Serum Total Protein Total Protein Albumin Cholesterol LDL Cholesterol Direct HDL Cholesterol PTH Intact Arterial Blood Glucose Urine WBC (Auto) Urine Creatinine Valproic Acid 17.8 L Heparin-induced Plt Ab Lymph Enumerat CD4/CD8 Absolute CD3 Count Absolute CD4 Count % CD8 Cells Absolute CD8 Count Absolute CD19 Count Coronavirus (PCR) HIV-1 RNA PCR copies/ml HIV-1 RNA (PCR) log 10/04/20 10/05/20 10/05/20 18:19 07:14 07:14 WBC RBC 2.44 L 2.36 L Hgb 8.0 L 7.8 L Hct 24.0 L 23.3 L MCV 98 H 99 H MCH 33 H 33 H MCHC RDW 15.6 H 16.0 H Plt Count Lymph % (Auto) [place] % (Auto) Lymph # (Auto) [place] # (Auto) Seg Neutrophils % Seg Neuts % (Manual) Lymphocytes % (Manual) Monocytes % (Manual) Nucleated RBC % Seg Neutrophils # Seg Neutrophils # Man Abs Lymphs (Manual) Lymphocytes # (Manual) PT INR APTT D-Dimer Heparin Anti-Xa Level ABG pH POC ABG pCO2 POC ABG pO2 ABG Oxyhemoglobin ABG Sodium ABG Potassium ABG Glucose Carboxyhemoglobin Sodium Potassium Chloride Carbon Dioxide BUN 36 H Creatinine 2.5 H Glucose POC Glucose Calcium Phosphorus Ferritin Total Bilirubin AST ALT Alkaline Phosphatase Lactate Dehydrogenase Total Creatine Kinase Troponin T C-Reactive Protein NT-Pro-B Natriuret Pep Serum Total Protein Total Protein Albumin Cholesterol LDL Cholesterol Direct HDL Cholesterol PTH Intact Arterial Blood Glucose Urine WBC (Auto) Urine Creatinine Valproic Acid Heparin-induced Plt Ab Lymph Enumerat CD4/CD8 Absolute CD3 Count Absolute CD4 Count % CD8 Cells Absolute CD8 Count Absolute CD19 Count Coronavirus (PCR) HIV-1 RNA PCR copies/ml HIV-1 RNA (PCR) log 0510/06/20 10/07/20 08:04 Unknown 06:45 WBC RBC 2.38 L Hgb 7.9 L Hct 23.2 L MCV 98 H MCH 33 H MCHC RDW 15.4 H Plt Count Lymph % (Auto) [place] % (Auto) Lymph # (Auto) [place] # (Auto) Seg Neutrophils % Seg Neuts % (Manual) Lymphocytes % (Manual) Monocytes % (Manual) Nucleated RBC % Seg Neutrophils # Seg Neutrophils # Man Abs Lymphs (Manual) Lymphocytes # (Manual) PT INR APTT D-Dimer Heparin Anti-Xa Level ABG pH POC ABG pCO2 POC ABG pO2 ABG Oxyhemoglobin ABG Sodium ABG Potassium ABG Glucose Carboxyhemoglobin Sodium Potassium 3.5 L Chloride 107.2 H Carbon Dioxide BUN 30 H Creatinine 2.2 H Glucose POC Glucose Calcium Phosphorus Ferritin Total Bilirubin AST ALT Alkaline Phosphatase Lactate Dehydrogenase Total Creatine Kinase Troponin T C-Reactive Protein NT-Pro-B Natriuret Pep Serum Total Protein Total Protein Albumin Cholesterol LDL Cholesterol Direct HDL Cholesterol PTH Intact Arterial Blood Glucose Urine WBC (Auto) Urine Creatinine Valproic Acid Heparin-induced Plt Ab Lymph Enumerat CD4/CD8 Absolute CD3 Count Absolute CD4 Count % CD8 Cells Absolute CD8 Count Absolute CD19 Count Coronavirus (PCR) Positive A HIV-1 RNA PCR copies/ml HIV-1 RNA (PCR) log 10/07/20 06:45 WBC RBC Hgb Hct MCV MCH MCHC RDW Plt Count Lymph % (Auto) [place] % (Auto) Lymph # (Auto) [place] # (Auto) Seg Neutrophils % Seg Neuts % (Manual) Lymphocytes % (Manual) Monocytes % (Manual) Nucleated RBC % Seg Neutrophils # Seg Neutrophils # Man Abs Lymphs (Manual) Lymphocytes # (Manual) PT INR APTT D-Dimer Heparin Anti-Xa Level ABG pH POC ABG pCO2 POC ABG pO2 ABG Oxyhemoglobin ABG Sodium ABG Potassium ABG Glucose Carboxyhemoglobin Sodium Potassium Chloride Carbon Dioxide BUN 28 H Creatinine 2.2 H Glucose POC Glucose Calcium Phosphorus Ferritin Total Bilirubin AST ALT Alkaline Phosphatase Lactate Dehydrogenase Total Creatine Kinase Troponin T C-Reactive Protein NT-Pro-B Natriuret Pep Serum Total Protein Total Protein Albumin Cholesterol LDL Cholesterol Direct HDL Cholesterol PTH Intact Arterial Blood Glucose Urine WBC (Auto) Urine Creatinine Valproic Acid Heparin-induced Plt Ab Lymph Enumerat CD4/CD8 Absolute CD3 Count Absolute CD4 Count % CD8 Cells Absolute CD8 Count Absolute CD19 Count Coronavirus (PCR) HIV-1 RNA PCR copies/ml HIV-1 RNA (PCR) log Allied health notes reviewed: nursing
--- NOTE | 2020-10-08 14:18 | Progress Note ---
Assessment and Plan Acute hypoxemic respiratory failure. Atrial fibrillation with rapid ventricular response. Gram negative bacteremia Acute congestive heart failure exacerbation. Acute on chronic kidney injury. Anemia that is microcytic. Coagulopathy appears to be acquired. Respiratory alkalosis. Mild metabolic acidosis. Possible severe sepsis with shock due to a urinary tract infection. Urinary tract infection (i do feel that despite his CHF history he is septic now and with relative IVVD and will benefit from gentle hydration acutely - no new issues today, continue care as below; - continue to wean supplemental oxygen for target O2 sat's > 92% acutely - Aspiration precautions - prn bronchodilators with pulmonary hygiene per RT - continue accuchecks with glycemic control per SSI for target blood glucose of < 180 mg/dL; avoid hypoglycemia - avoid nephrotoxins, renally dose all medications - continue to avoid benzodiazepine's, reduce the possibility of delirium - prn analgesia per pain score - Maintenance of sleep-wake cycle, avoid delirium - G.I. & VTE prophylaxis - PT/OT/ROM exercises - continue mobility protocols for pressure ulcer prophylaxis - Monitor hemodynamics closely - continue other care per attending / other consultants - discharge planning ongoing concurrently COVID SPECIFIC INTERVENTIONS - Remdesivir as per ID/Pulmonary developed protocols (not given due to LOLI) - systemic steroids for severe COVID-19 infection (s/p Decadron) - follow repeat COVID tests results - zinc and vitamin C supplementation - Monitor inflammatory markers per facility protocol - ferritin, Ddimer, CRP - therapeutic anticoagulation per system Protocol based on d-dimer and clinical considerations - Continue contact and airborne isolation .... Re-evaluate in am & prn Subjective Date of service: 10/08/20 Principal diagnosis: Acute Hypoxemic Resp Failure; COVID-19 infxn; Septic Shock; A-Fib with RVR Interval history: Patient is seen today for: Acute hypoxemic respiratory failure; A-fib with RVR; AE-CHF; LOLI on CKD; Severe sepsis with shock; UTI Seen and examined at bedside; 24hour events reviewed; nursing and respiratory care staff consulted; no adverse overnight events reported to me; resting peacefully in bed; a little more appropriate; denies acute chest pains or SOB; No N/V/F/C Objective Vital Signs - 12hr 10/08/20 10/08/20 05:09 06:49 Temperature 98.3 F Pulse Rate 126 H Respiratory 18 Rate Blood Pressure 91/57 Blood Pressure 102/71 [Right] O2 Sat by Pulse 95 Oximetry Constitutional: no acute distress, alert, other (elderly male without increased respiratory effort at rest) Eyes: non-icteric ENT: oropharynx moist Neck: supple, no lymphadenopathy, no JVD Effort: normal Ascultation: Bilateral: clear Percussion: Bilateral: not dull Cardiovascular: irregular rhythm Gastrointestinal: normoactive bowel sounds, soft, non-tender, non-distended Integumentary: normal Extremities: no cyanosis, no edema, pulses normal, no ischemia or petechiae Neurologic: non-focal exam (grossly), pupils equal and round, CN II-XII normal, motor strength normal and, other (mild delirium) Psychiatric: mood appropriate, affect normal CBC and BMP: 10/07/20 06:45 10/08/20 20:19 ABG, PT/INR, D-dimer: ABG ABG pH 7.508 (7.320-7.450) H 09/17/20 10:28 POC ABG pCO2 22.8 mmHg (32.0-48.0) L 09/17/20 10:28 POC ABG pO2 66.8 mmHg (83-108) L 09/17/20 10:28 POC ABG HCO3 17.7 09/17/20 10:28 ABG O2 Saturation 93.4 (0-100) 09/17/20 10:28 PT/INR, D-dimer PT 15.7 Sec. (12.2-14.9) H 09/24/20 12:13 INR 1.27 (0.87-1.13) H 09/24/20 12:13 D-Dimer 1772.86 ng/mlDDU (0-234) H 09/24/20 05:00 Abnormal lab findings: Abnormal Labs 09/17/20 09/17/20 09/17/20 10:28 10:47 10:47 WBC 11.1 H RBC 3.44 L Hgb 11.2 L Hct 32.8 L MCV 95 H MCH MCHC RDW Plt Count Lymph % (Auto) [place] % (Auto) Lymph # (Auto) [place] # (Auto) Seg Neutrophils % Seg Neuts % (Manual) Lymphocytes % (Manual) 4.0 L Monocytes % (Manual) Nucleated RBC % Seg Neutrophils # Seg Neutrophils # Man 10.7 H Abs Lymphs (Manual) Lymphocytes # (Manual) 0.4 L PT 32.9 H INR 3.16 H APTT 51.1 H D-Dimer Heparin Anti-Xa Level ABG pH 7.508 H POC ABG pCO2 22.8 L POC ABG pO2 66.8 L ABG Oxyhemoglobin 92.7 L ABG Sodium 127.4 L ABG Potassium 4.7 H ABG Glucose 121 H Carboxyhemoglobin 0.4 L Sodium Potassium Chloride Carbon Dioxide BUN Creatinine Glucose POC Glucose Calcium Phosphorus Ferritin Total Bilirubin AST ALT Alkaline Phosphatase Lactate Dehydrogenase Total Creatine Kinase Troponin T C-Reactive Protein NT-Pro-B Natriuret Pep Serum Total Protein Total Protein Albumin Cholesterol LDL Cholesterol Direct HDL Cholesterol PTH Intact Arterial Blood Glucose 121 H Urine WBC (Auto) Urine Creatinine Valproic Acid Heparin-induced Plt Ab Lymph Enumerat CD4/CD8 Absolute CD3 Count Absolute CD4 Count % CD8 Cells Absolute CD8 Count Absolute CD19 Count Coronavirus (PCR) HIV-1 RNA PCR copies/ml HIV-1 RNA (PCR) log 09/17/20 09/17/20 09/17/20 10:47 10:47 13:54 WBC RBC Hgb Hct MCV MCH MCHC RDW Plt Count Lymph % (Auto) [place] % (Auto) Lymph # (Auto) [place] # (Auto) Seg Neutrophils % Seg Neuts % (Manual) Lymphocytes % (Manual) Monocytes % (Manual) Nucleated RBC % Seg Neutrophils # Seg Neutrophils # Man Abs Lymphs (Manual) Lymphocytes # (Manual) PT INR APTT D-Dimer Heparin Anti-Xa Level ABG pH POC ABG pCO2 POC ABG pO2 ABG Oxyhemoglobin ABG Sodium ABG Potassium ABG Glucose Carboxyhemoglobin Sodium 125 L Potassium Chloride 95.3 L Carbon Dioxide 17 L BUN 64 H Creatinine 4.6 H D Glucose 104 H POC Glucose Calcium Phosphorus Ferritin Total Bilirubin AST 69 H ALT Alkaline Phosphatase Lactate Dehydrogenase Total Creatine Kinase Troponin T 0.061 H D 0.058 H C-Reactive Protein NT-Pro-B Natriuret Pep 40286 H Serum Total Protein Total Protein Albumin 1.9 L Cholesterol 48 L LDL Cholesterol Direct 4 L HDL Cholesterol 9 L PTH Intact Arterial Blood Glucose Urine WBC (Auto) Urine Creatinine Valproic Acid Heparin-induced Plt Ab Lymph Enumerat CD4/CD8 Absolute CD3 Count Absolute CD4 Count % CD8 Cells Absolute CD8 Count Absolute CD19 Count Coronavirus (PCR) HIV-1 RNA PCR copies/ml HIV-1 RNA (PCR) log 09/17/20 09/17/20 09/17/20 16:36 17:35 17:35 WBC RBC 3.25 L Hgb 10.7 L Hct 31.1 L MCV 96 H MCH 33 H MCHC RDW Plt Count Lymph % (Auto) [place] % (Auto) Lymph # (Auto) [place] # (Auto) Seg Neutrophils % Seg Neuts % (Manual) Lymphocytes % (Manual) Monocytes % (Manual) Nucleated RBC % Seg Neutrophils # Seg Neutrophils # Man Abs Lymphs (Manual) Lymphocytes # (Manual) PT 31.9 H INR 3.04 H APTT 50.9 H D-Dimer Heparin Anti-Xa Level ABG pH POC ABG pCO2 POC ABG pO2 ABG Oxyhemoglobin ABG Sodium ABG Potassium ABG Glucose Carboxyhemoglobin Sodium Potassium Chloride Carbon Dioxide BUN Creatinine Glucose POC Glucose Calcium Phosphorus Ferritin Total Bilirubin AST ALT Alkaline Phosphatase Lactate Dehydrogenase Total Creatine Kinase Troponin T 0.057 H C-Reactive Protein NT-Pro-B Natriuret Pep Serum Total Protein Total Protein Albumin Cholesterol LDL Cholesterol Direct HDL Cholesterol PTH Intact Arterial Blood Glucose Urine WBC (Auto) Urine Creatinine Valproic Acid Heparin-induced Plt Ab Lymph Enumerat CD4/CD8 Absolute CD3 Count Absolute CD4 Count % CD8 Cells Absolute CD8 Count Absolute CD19 Count Coronavirus (PCR) HIV-1 RNA PCR copies/ml HIV-1 RNA (PCR) log 09/17/20 09/18/20 09/18/20 17:35 03:19 03:19 WBC RBC 3.32 L Hgb 10.9 L Hct 32.0 L MCV 96 H MCH 33 H MCHC RDW Plt Count 138 L Lymph % (Auto) [place] % (Auto) Lymph # (Auto) [place] # (Auto) Seg Neutrophils % Seg Neuts % (Manual) 95.0 H Lymphocytes % (Manual) 3.0 L Monocytes % (Manual) Nucleated RBC % Seg Neutrophils # Seg Neutrophils # Man 8.1 H Abs Lymphs (Manual) Lymphocytes # (Manual) 0.3 L PT INR APTT D-Dimer Heparin Anti-Xa Level ABG pH POC ABG pCO2 POC ABG pO2 ABG Oxyhemoglobin ABG Sodium ABG Potassium ABG Glucose Carboxyhemoglobin Sodium Potassium Chloride Carbon Dioxide 16 L BUN 70 H Creatinine 4.6 H 4.7 H Glucose 104 H POC Glucose Calcium 8.2 L Phosphorus Ferritin Total Bilirubin 1.60 H AST 128 H ALT 67 H Alkaline Phosphatase Lactate Dehydrogenase Total Creatine Kinase Troponin T C-Reactive Protein NT-Pro-B Natriuret Pep Serum Total Protein Total Protein 5.2 L D Albumin 2.5 L Cholesterol LDL Cholesterol Direct HDL Cholesterol PTH Intact Arterial Blood Glucose Urine WBC (Auto) Urine Creatinine Valproic Acid Heparin-induced Plt Ab Lymph Enumerat CD4/CD8 Absolute CD3 Count Absolute CD4 Count % CD8 Cells Absolute CD8 Count Absolute CD19 Count Coronavirus (PCR) HIV-1 RNA PCR copies/ml HIV-1 RNA (PCR) log 09/18/20 09/18/20 09/18/20 09:39 12:00 12:00 WBC RBC Hgb Hct MCV MCH MCHC RDW Plt Count Lymph % (Auto) [place] % (Auto) Lymph # (Auto) [place] # (Auto) Seg Neutrophils % Seg Neuts % (Manual) Lymphocytes % (Manual) Monocytes % (Manual) Nucleated RBC % Seg Neutrophils # Seg Neutrophils # Man Abs Lymphs (Manual) Lymphocytes # (Manual) PT INR APTT D-Dimer Heparin Anti-Xa Level ABG pH POC ABG pCO2 POC ABG pO2 ABG Oxyhemoglobin ABG Sodium ABG Potassium ABG Glucose Carboxyhemoglobin Sodium Potassium Chloride Carbon Dioxide BUN Creatinine Glucose POC Glucose Calcium Phosphorus Ferritin Total Bilirubin AST ALT Alkaline Phosphatase Lactate Dehydrogenase Total Creatine Kinase Troponin T C-Reactive Protein NT-Pro-B Natriuret Pep Serum Total Protein Total Protein Albumin Cholesterol LDL Cholesterol Direct HDL Cholesterol PTH Intact Arterial Blood Glucose Urine WBC (Auto) 71.0 H Urine Creatinine 61.0 H Valproic Acid Heparin-induced Plt Ab Lymph Enumerat CD4/CD8 Absolute CD3 Count Absolute CD4 Count % CD8 Cells Absolute CD8 Count Absolute CD19 Count Coronavirus (PCR) Positive A HIV-1 RNA PCR copies/ml HIV-1 RNA (PCR) log 09/18/20 09/18/20 09/18/20 15:07 15:07 18:33 WBC RBC Hgb 10.7 L Hct 31.3 L MCV MCH MCHC RDW Plt Count Lymph % (Auto) [place] % (Auto) Lymph # (Auto) [place] # (Auto) Seg Neutrophils % Seg Neuts % (Manual) Lymphocytes % (Manual) Monocytes % (Manual) Nucleated RBC % Seg Neutrophils # Seg Neutrophils # Man Abs Lymphs (Manual) Lymphocytes # (Manual) PT 20.3 H INR 1.73 H APTT 40.8 H D-Dimer Heparin Anti-Xa Level 1.09 H ABG pH POC ABG pCO2 POC ABG pO2 ABG Oxyhemoglobin ABG Sodium ABG Potassium ABG Glucose Carboxyhemoglobin Sodium Potassium Chloride Carbon Dioxide BUN Creatinine Glucose POC Glucose Calcium Phosphorus Ferritin Total Bilirubin AST ALT Alkaline Phosphatase Lactate Dehydrogenase Total Creatine Kinase Troponin T C-Reactive Protein NT-Pro-B Natriuret Pep Serum Total Protein Total Protein Albumin Cholesterol LDL Cholesterol Direct HDL Cholesterol PTH Intact Arterial Blood Glucose Urine WBC (Auto) Urine Creatinine Valproic Acid Heparin-induced Plt Ab Lymph Enumerat CD4/CD8 Absolute CD3 Count Absolute CD4 Count % CD8 Cells Absolute CD8 Count Absolute CD19 Count Coronavirus (PCR) HIV-1 RNA PCR copies/ml HIV-1 RNA (PCR) log 09/19/20 09/19/20 09/19/20 03:30 03:30 03:30 WBC RBC 3.29 L Hgb 10.9 L Hct 30.9 L MCV MCH 33 H MCHC 35 H RDW Plt Count Lymph % (Auto) [place] % (Auto) Lymph # (Auto) [place] # (Auto) Seg Neutrophils % Seg Neuts % (Manual) Lymphocytes % (Manual) Monocytes % (Manual) Nucleated RBC % Seg Neutrophils # Seg Neutrophils # Man Abs Lymphs (Manual) Lymphocytes # (Manual) PT INR APTT D-Dimer Heparin Anti-Xa Level ABG pH POC ABG pCO2 POC ABG pO2 ABG Oxyhemoglobin ABG Sodium ABG Potassium ABG Glucose Carboxyhemoglobin Sodium 133 L Potassium Chloride Carbon Dioxide 17 L BUN 94 H Creatinine 5.0 H Glucose 120 H POC Glucose Calcium Phosphorus 6.30 H Ferritin Total Bilirubin 2.40 H AST 163 H ALT 109 H Alkaline Phosphatase 160 H Lactate Dehydrogenase Total Creatine Kinase 20 L Troponin T C-Reactive Protein NT-Pro-B Natriuret Pep Serum Total Protein Total Protein 6.2 L Albumin 2.0 L Cholesterol LDL Cholesterol Direct HDL Cholesterol PTH Intact 161.4 H Arterial Blood Glucose Urine WBC (Auto) Urine Creatinine Valproic Acid Heparin-induced Plt Ab Lymph Enumerat CD4/CD8 Absolute CD3 Count Absolute CD4 Count % CD8 Cells Absolute CD8 Count Absolute CD19 Count Coronavirus (PCR) HIV-1 RNA PCR copies/ml HIV-1 RNA (PCR) log 09/19/20 09/19/20 09/19/20 06:35 13:35 13:35 WBC RBC Hgb Hct MCV MCH MCHC RDW Plt Count Lymph % (Auto) [place] % (Auto) Lymph # (Auto) [place] # (Auto) Seg Neutrophils % Seg Neuts % (Manual) Lymphocytes % (Manual) Monocytes % (Manual) Nucleated RBC % Seg Neutrophils # Seg Neutrophils # Man Abs Lymphs (Manual) 223 L Lymphocytes # (Manual) PT INR APTT D-Dimer Heparin Anti-Xa Level ABG pH POC ABG pCO2 POC ABG pO2 ABG Oxyhemoglobin ABG Sodium ABG Potassium ABG Glucose Carboxyhemoglobin Sodium Potassium Chloride Carbon Dioxide BUN Creatinine Glucose POC Glucose 123 H Calcium Phosphorus Ferritin Total Bilirubin AST ALT Alkaline Phosphatase Lactate Dehydrogenase Total Creatine Kinase Troponin T C-Reactive Protein NT-Pro-B Natriuret Pep Serum Total Protein Total Protein Albumin Cholesterol LDL Cholesterol Direct HDL Cholesterol PTH Intact Arterial Blood Glucose Urine WBC (Auto) Urine Creatinine Valproic Acid Heparin-induced Plt Ab Lymph Enumerat CD4/CD8 0.70 L Absolute CD3 Count 175 L Absolute CD4 Count 70 L % CD8 Cells 45 H Absolute CD8 Count 101 L Absolute CD19 Count 26 L Coronavirus (PCR) HIV-1 RNA PCR copies/ml 67 H HIV-1 RNA (PCR) log 1.83 H 09/19/20 09/20/20 09/20/20 23:37 04:00 04:00 WBC RBC 3.43 L Hgb 11.1 L Hct 32.2 L MCV MCH MCHC RDW Plt Count 131 L Lymph % (Auto) [place] % (Auto) Lymph # (Auto) [place] # (Auto) Seg Neutrophils % Seg Neuts % (Manual) 88.0 H Lymphocytes % (Manual) 3.0 L Monocytes % (Manual) 9.0 H Nucleated RBC % Seg Neutrophils # Seg Neutrophils # Man 8.2 H Abs Lymphs (Manual) Lymphocytes # (Manual) 0.3 L PT INR APTT D-Dimer Heparin Anti-Xa Level 0.10 L ABG pH POC ABG pCO2 POC ABG pO2 ABG Oxyhemoglobin ABG Sodium ABG Potassium ABG Glucose Carboxyhemoglobin Sodium Potassium Chloride Carbon Dioxide BUN Creatinine Glucose POC Glucose 135 H Calcium Phosphorus Ferritin Total Bilirubin AST ALT Alkaline Phosphatase Lactate Dehydrogenase Total Creatine Kinase Troponin T C-Reactive Protein NT-Pro-B Natriuret Pep Serum Total Protein Total Protein Albumin Cholesterol LDL Cholesterol Direct HDL Cholesterol PTH Intact Arterial Blood Glucose Urine WBC (Auto) Urine Creatinine Valproic Acid Heparin-induced Plt Ab Lymph Enumerat CD4/CD8 Absolute CD3 Count Absolute CD4 Count % CD8 Cells Absolute CD8 Count Absolute CD19 Count Coronavirus (PCR) HIV-1 RNA PCR copies/ml HIV-1 RNA (PCR) log 09/20/20 09/20/20 09/20/20 04:00 05:37 11:20 WBC RBC Hgb Hct MCV MCH MCHC RDW Plt Count Lymph % (Auto) [place] % (Auto) Lymph # (Auto) [place] # (Auto) Seg Neutrophils % Seg Neuts % (Manual) Lymphocytes % (Manual) Monocytes % (Manual) Nucleated RBC % Seg Neutrophils # Seg Neutrophils # Man Abs Lymphs (Manual) Lymphocytes # (Manual) PT INR APTT D-Dimer Heparin Anti-Xa Level ABG pH POC ABG pCO2 POC ABG pO2 ABG Oxyhemoglobin ABG Sodium ABG Potassium ABG Glucose Carboxyhemoglobin Sodium Potassium Chloride Carbon Dioxide 16 L BUN 119 H Creatinine 6.2 H Glucose 136 H POC Glucose 137 H 108 H Calcium Phosphorus Ferritin Total Bilirubin AST ALT Alkaline Phosphatase Lactate Dehydrogenase Total Creatine Kinase Troponin T C-Reactive Protein NT-Pro-B Natriuret Pep Serum Total Protein Total Protein Albumin Cholesterol LDL Cholesterol Direct HDL Cholesterol PTH Intact Arterial Blood Glucose Urine WBC (Auto) Urine Creatinine Valproic Acid Heparin-induced Plt Ab Lymph Enumerat CD4/CD8 Absolute CD3 Count Absolute CD4 Count % CD8 Cells Absolute CD8 Count Absolute CD19 Count Coronavirus (PCR) HIV-1 RNA PCR copies/ml HIV-1 RNA (PCR) log 09/20/20 09/20/20 09/20/20 17:10 17:10 17:10 WBC RBC Hgb Hct MCV MCH MCHC RDW Plt Count Lymph % (Auto) [place] % (Auto) Lymph # (Auto) [place] # (Auto) Seg Neutrophils % Seg Neuts % (Manual) Lymphocytes % (Manual) Monocytes % (Manual) Nucleated RBC % Seg Neutrophils # Seg Neutrophils # Man Abs Lymphs (Manual) Lymphocytes # (Manual) PT INR APTT D-Dimer 4271.58 H Heparin Anti-Xa Level ABG pH POC ABG pCO2 POC ABG pO2 ABG Oxyhemoglobin ABG Sodium ABG Potassium ABG Glucose Carboxyhemoglobin Sodium Potassium Chloride Carbon Dioxide BUN Creatinine 6.0 H Glucose POC Glucose Calcium Phosphorus Ferritin 696.6 H Total Bilirubin AST ALT Alkaline Phosphatase Lactate Dehydrogenase Total Creatine Kinase Troponin T C-Reactive Protein NT-Pro-B Natriuret Pep Serum Total Protein Total Protein Albumin Cholesterol LDL Cholesterol Direct HDL Cholesterol PTH Intact Arterial Blood Glucose Urine WBC (Auto) Urine Creatinine Valproic Acid Heparin-induced Plt Ab Lymph Enumerat CD4/CD8 Absolute CD3 Count Absolute CD4 Count % CD8 Cells Absolute CD8 Count Absolute CD19 Count Coronavirus (PCR) HIV-1 RNA PCR copies/ml HIV-1 RNA (PCR) log 09/20/20 09/20/20 09/20/20 17:10 18:21 23:14 WBC RBC Hgb Hct MCV MCH MCHC RDW Plt Count Lymph % (Auto) [place] % (Auto) Lymph # (Auto) [place] # (Auto) Seg Neutrophils % Seg Neuts % (Manual) Lymphocytes % (Manual) Monocytes % (Manual) Nucleated RBC % Seg Neutrophils # Seg Neutrophils # Man Abs Lymphs (Manual) Lymphocytes # (Manual) PT INR APTT D-Dimer Heparin Anti-Xa Level ABG pH POC ABG pCO2 POC ABG pO2 ABG Oxyhemoglobin ABG Sodium ABG Potassium ABG Glucose Carboxyhemoglobin Sodium Potassium Chloride Carbon Dioxide BUN Creatinine Glucose POC Glucose 129 H 170 H Calcium Phosphorus Ferritin Total Bilirubin AST ALT Alkaline Phosphatase Lactate Dehydrogenase 209 H Total Creatine Kinase Troponin T C-Reactive Protein 10.60 H NT-Pro-B Natriuret Pep Serum Total Protein Total Protein Albumin Cholesterol LDL Cholesterol Direct HDL Cholesterol PTH Intact Arterial Blood Glucose Urine WBC (Auto) Urine Creatinine Valproic Acid Heparin-induced Plt Ab Lymph Enumerat CD4/CD8 Absolute CD3 Count Absolute CD4 Count % CD8 Cells Absolute CD8 Count Absolute CD19 Count Coronavirus (PCR) HIV-1 RNA PCR copies/ml HIV-1 RNA (PCR) log 09/21/20 09/21/20 09/21/20 05:35 17:09 23:18 WBC RBC Hgb Hct MCV MCH MCHC RDW Plt Count Lymph % (Auto) [place] % (Auto) Lymph # (Auto) [place] # (Auto) Seg Neutrophils % Seg Neuts % (Manual) Lymphocytes % (Manual) Monocytes % (Manual) Nucleated RBC % Seg Neutrophils # Seg Neutrophils # Man Abs Lymphs (Manual) Lymphocytes # (Manual) PT INR APTT D-Dimer Heparin Anti-Xa Level ABG pH POC ABG pCO2 POC ABG pO2 ABG Oxyhemoglobin ABG Sodium ABG Potassium ABG Glucose Carboxyhemoglobin Sodium Potassium Chloride Carbon Dioxide BUN Creatinine Glucose POC Glucose 170 H 140 H 139 H Calcium Phosphorus Ferritin Total Bilirubin AST ALT Alkaline Phosphatase Lactate Dehydrogenase Total Creatine Kinase Troponin T C-Reactive Protein NT-Pro-B Natriuret Pep Serum Total Protein Total Protein Albumin Cholesterol LDL Cholesterol Direct HDL Cholesterol PTH Intact Arterial Blood Glucose Urine WBC (Auto) Urine Creatinine Valproic Acid Heparin-induced Plt Ab Lymph Enumerat CD4/CD8 Absolute CD3 Count Absolute CD4 Count % CD8 Cells Absolute CD8 Count Absolute CD19 Count Coronavirus (PCR) HIV-1 RNA PCR copies/ml HIV-1 RNA (PCR) log 09/21/20 09/21/20 09/21/20 Unknown Unknown Unknown WBC RBC 3.56 L Hgb 11.3 L Hct 33.2 L MCV MCH MCHC RDW Plt Count 125 L Lymph % (Auto) [place] % (Auto) Lymph # (Auto) [place] # (Auto) Seg Neutrophils % Seg Neuts % (Manual) 90.0 H Lymphocytes % (Manual) 8.0 L Monocytes % (Manual) Nucleated RBC % 1.0 H Seg Neutrophils # Seg Neutrophils # Man 9.4 H Abs Lymphs (Manual) Lymphocytes # (Manual) 0.8 L PT 16.8 H INR 1.36 H APTT D-Dimer Heparin Anti-Xa Level ABG pH POC ABG pCO2 POC ABG pO2 ABG Oxyhemoglobin ABG Sodium ABG Potassium ABG Glucose Carboxyhemoglobin Sodium Potassium Chloride Carbon Dioxide BUN 83 H Creatinine 4.3 H Glucose 163 H POC Glucose Calcium Phosphorus Ferritin Total Bilirubin 2.40 H AST ALT 57 H Alkaline Phosphatase < 5 L Lactate Dehydrogenase Total Creatine Kinase Troponin T C-Reactive Protein NT-Pro-B Natriuret Pep Serum Total Protein Total Protein Albumin 1.9 L Cholesterol LDL Cholesterol Direct HDL Cholesterol PTH Intact Arterial Blood Glucose Urine WBC (Auto) Urine Creatinine Valproic Acid Heparin-induced Plt Ab Lymph Enumerat CD4/CD8 Absolute CD3 Count Absolute CD4 Count % CD8 Cells Absolute CD8 Count Absolute CD19 Count Coronavirus (PCR) HIV-1 RNA PCR copies/ml HIV-1 RNA (PCR) log 09/22/20 09/22/20 09/22/20 05:38 05:38 05:38 WBC 15.8 H RBC 3.36 L Hgb 10.8 L Hct 31.0 L MCV MCH MCHC 35 H RDW Plt Count 68 L Lymph % (Auto) 3.1 L [place] % (Auto) 10.7 H Lymph # (Auto) 0.5 L [place] # (Auto) 1.7 H Seg Neutrophils % 85.9 H Seg Neuts % (Manual) Lymphocytes % (Manual) Monocytes % (Manual) Nucleated RBC % Seg Neutrophils # 13.6 H Seg Neutrophils # Man Abs Lymphs (Manual) Lymphocytes # (Manual) PT INR APTT D-Dimer 3281.49 H Heparin Anti-Xa Level ABG pH POC ABG pCO2 POC ABG pO2 ABG Oxyhemoglobin ABG Sodium ABG Potassium ABG Glucose Carboxyhemoglobin Sodium Potassium Chloride Carbon Dioxide BUN 61 H Creatinine 3.1 H Glucose 129 H POC Glucose Calcium Phosphorus Ferritin Total Bilirubin AST ALT Alkaline Phosphatase Lactate Dehydrogenase 277 H Total Creatine Kinase Troponin T C-Reactive Protein 6.60 H NT-Pro-B Natriuret Pep Serum Total Protein Total Protein Albumin Cholesterol LDL Cholesterol Direct HDL Cholesterol PTH Intact Arterial Blood Glucose Urine WBC (Auto) Urine Creatinine Valproic Acid Heparin-induced Plt Ab Lymph Enumerat CD4/CD8 Absolute CD3 Count Absolute CD4 Count % CD8 Cells Absolute CD8 Count Absolute CD19 Count Coronavirus (PCR) HIV-1 RNA PCR copies/ml HIV-1 RNA (PCR) log 09/22/20 09/22/20 09/22/20 05:38 05:44 11:26 WBC RBC Hgb Hct MCV MCH MCHC RDW Plt Count Lymph % (Auto) [place] % (Auto) Lymph # (Auto) [place] # (Auto) Seg Neutrophils % Seg Neuts % (Manual) Lymphocytes % (Manual) Monocytes % (Manual) Nucleated RBC % Seg Neutrophils # Seg Neutrophils # Man Abs Lymphs (Manual) Lymphocytes # (Manual) PT INR APTT D-Dimer Heparin Anti-Xa Level ABG pH POC ABG pCO2 POC ABG pO2 ABG Oxyhemoglobin ABG Sodium ABG Potassium ABG Glucose Carboxyhemoglobin Sodium Potassium Chloride Carbon Dioxide BUN Creatinine Glucose POC Glucose 112 H 131 H Calcium Phosphorus Ferritin 927.8 H Total Bilirubin AST ALT Alkaline Phosphatase Lactate Dehydrogenase Total Creatine Kinase Troponin T C-Reactive Protein NT-Pro-B Natriuret Pep Serum Total Protein Total Protein Albumin Cholesterol LDL Cholesterol Direct HDL Cholesterol PTH Intact Arterial Blood Glucose Urine WBC (Auto) Urine Creatinine Valproic Acid Heparin-induced Plt Ab Lymph Enumerat CD4/CD8 Absolute CD3 Count Absolute CD4 Count % CD8 Cells Absolute CD8 Count Absolute CD19 Count Coronavirus (PCR) HIV-1 RNA PCR copies/ml HIV-1 RNA (PCR) log 09/22/20 09/22/20 09/22/20 15:12 15:12 15:12 WBC RBC Hgb Hct MCV MCH MCHC RDW Plt Count Lymph % (Auto) [place] % (Auto) Lymph # (Auto) [place] # (Auto) Seg Neutrophils % Seg Neuts % (Manual) Lymphocytes % (Manual) Monocytes % (Manual) Nucleated RBC % Seg Neutrophils # Seg Neutrophils # Man Abs Lymphs (Manual) Lymphocytes # (Manual) PT 17.3 H INR 1.42 H APTT D-Dimer Heparin Anti-Xa Level ABG pH POC ABG pCO2 POC ABG pO2 ABG Oxyhemoglobin ABG Sodium ABG Potassium ABG Glucose Carboxyhemoglobin Sodium Potassium Chloride Carbon Dioxide BUN Creatinine 3.0 H Glucose POC Glucose Calcium Phosphorus Ferritin Total Bilirubin AST ALT Alkaline Phosphatase Lactate Dehydrogenase Total Creatine Kinase Troponin T C-Reactive Protein NT-Pro-B Natriuret Pep Serum Total Protein Total Protein Albumin Cholesterol LDL Cholesterol Direct HDL Cholesterol PTH Intact Arterial Blood Glucose Urine WBC (Auto) Urine Creatinine Valproic Acid Heparin-induced Plt Ab Weak positive H Lymph Enumerat CD4/CD8 Absolute CD3 Count Absolute CD4 Count % CD8 Cells Absolute CD8 Count Absolute CD19 Count Coronavirus (PCR) HIV-1 RNA PCR copies/ml HIV-1 RNA (PCR) log 09/22/20 09/22/20 09/23/20 16:53 23:55 04:36 WBC 14.2 H RBC 3.05 L Hgb 9.8 L Hct 28.4 L MCV MCH MCHC RDW Plt Count 39 L Lymph % (Auto) [place] % (Auto) Lymph # (Auto) [place] # (Auto) Seg Neutrophils % Seg Neuts % (Manual) 91.0 H Lymphocytes % (Manual) 2.0 L Monocytes % (Manual) Nucleated RBC % Seg Neutrophils # Seg Neutrophils # Man 12.9 H Abs Lymphs (Manual) Lymphocytes # (Manual) 0.3 L PT INR APTT D-Dimer Heparin Anti-Xa Level ABG pH POC ABG pCO2 POC ABG pO2 ABG Oxyhemoglobin ABG Sodium ABG Potassium ABG Glucose Carboxyhemoglobin Sodium Potassium Chloride Carbon Dioxide BUN Creatinine Glucose POC Glucose 138 H 171 H Calcium Phosphorus Ferritin Total Bilirubin AST ALT Alkaline Phosphatase Lactate Dehydrogenase Total Creatine Kinase Troponin T C-Reactive Protein NT-Pro-B Natriuret Pep Serum Total Protein Total Protein Albumin Cholesterol LDL Cholesterol Direct HDL Cholesterol PTH Intact Arterial Blood Glucose Urine WBC (Auto) Urine Creatinine Valproic Acid Heparin-induced Plt Ab Lymph Enumerat CD4/CD8 Absolute CD3 Count Absolute CD4 Count % CD8 Cells Absolute CD8 Count Absolute CD19 Count Coronavirus (PCR) HIV-1 RNA PCR copies/ml HIV-1 RNA (PCR) log 09/23/20 09/23/20 09/23/20 04:36 05:41 11:38 WBC RBC Hgb Hct MCV MCH MCHC RDW Plt Count Lymph % (Auto) [place] % (Auto) Lymph # (Auto) [place] # (Auto) Seg Neutrophils % Seg Neuts % (Manual) Lymphocytes % (Manual) Monocytes % (Manual) Nucleated RBC % Seg Neutrophils # Seg Neutrophils # Man Abs Lymphs (Manual) Lymphocytes # (Manual) PT INR APTT D-Dimer Heparin Anti-Xa Level ABG pH POC ABG pCO2 POC ABG pO2 ABG Oxyhemoglobin ABG Sodium ABG Potassium ABG Glucose Carboxyhemoglobin Sodium Potassium Chloride Carbon Dioxide BUN 76 H Creatinine 3.1 H Glucose 157 H POC Glucose 136 H 141 H Calcium Phosphorus Ferritin Total Bilirubin AST ALT Alkaline Phosphatase Lactate Dehydrogenase Total Creatine Kinase Troponin T C-Reactive Protein NT-Pro-B Natriuret Pep Serum Total Protein Total Protein Albumin Cholesterol LDL Cholesterol Direct HDL Cholesterol PTH Intact Arterial Blood Glucose Urine WBC (Auto) Urine Creatinine Valproic Acid Heparin-induced Plt Ab Lymph Enumerat CD4/CD8 Absolute CD3 Count Absolute CD4 Count % CD8 Cells Absolute CD8 Count Absolute CD19 Count Coronavirus (PCR) HIV-1 RNA PCR copies/ml HIV-1 RNA (PCR) log 09/23/20 09/23/20 09/24/20 17:09 23:51 05:00 WBC 24.2 H RBC 3.23 L Hgb 10.0 L Hct 29.7 L MCV MCH MCHC RDW Plt Count 74 L Lymph % (Auto) [place] % (Auto) Lymph # (Auto) [place] # (Auto) Seg Neutrophils % Seg Neuts % (Manual) Lymphocytes % (Manual) Monocytes % (Manual) Nucleated RBC % Seg Neutrophils # Seg Neutrophils # Man Abs Lymphs (Manual) Lymphocytes # (Manual) PT INR APTT D-Dimer Heparin Anti-Xa Level ABG pH POC ABG pCO2 POC ABG pO2 ABG Oxyhemoglobin ABG Sodium ABG Potassium ABG Glucose Carboxyhemoglobin Sodium Potassium Chloride Carbon Dioxide BUN Creatinine Glucose POC Glucose 128 H 128 H Calcium Phosphorus Ferritin Total Bilirubin AST ALT Alkaline Phosphatase Lactate Dehydrogenase Total Creatine Kinase Troponin T C-Reactive Protein NT-Pro-B Natriuret Pep Serum Total Protein Total Protein Albumin Cholesterol LDL Cholesterol Direct HDL Cholesterol PTH Intact Arterial Blood Glucose Urine WBC (Auto) Urine Creatinine Valproic Acid Heparin-induced Plt Ab Lymph Enumerat CD4/CD8 Absolute CD3 Count Absolute CD4 Count % CD8 Cells Absolute CD8 Count Absolute CD19 Count Coronavirus (PCR) HIV-1 RNA PCR copies/ml HIV-1 RNA (PCR) log 09/24/20 09/24/20 09/24/20 05:00 05:00 05:00 WBC RBC Hgb Hct MCV MCH MCHC RDW Plt Count Lymph % (Auto) [place] % (Auto) Lymph # (Auto) [place] # (Auto) Seg Neutrophils % Seg Neuts % (Manual) Lymphocytes % (Manual) Monocytes % (Manual) Nucleated RBC % Seg Neutrophils # Seg Neutrophils # Man Abs Lymphs (Manual) Lymphocytes # (Manual) PT INR APTT D-Dimer 1772.86 H Heparin Anti-Xa Level ABG pH POC ABG pCO2 POC ABG pO2 ABG Oxyhemoglobin ABG Sodium ABG Potassium ABG Glucose Carboxyhemoglobin Sodium Potassium Chloride 107.1 H Carbon Dioxide BUN 90 H Creatinine 3.1 H Glucose 118 H POC Glucose Calcium Phosphorus Ferritin 1190.0 H Total Bilirubin AST ALT Alkaline Phosphatase Lactate Dehydrogenase 276 H Total Creatine Kinase Troponin T C-Reactive Protein 4.20 H NT-Pro-B Natriuret Pep Serum Total Protein Total Protein Albumin Cholesterol LDL Cholesterol Direct HDL Cholesterol PTH Intact Arterial Blood Glucose Urine WBC (Auto) Urine Creatinine Valproic Acid Heparin-induced Plt Ab Lymph Enumerat CD4/CD8 Absolute CD3 Count Absolute CD4 Count % CD8 Cells Absolute CD8 Count Absolute CD19 Count Coronavirus (PCR) HIV-1 RNA PCR copies/ml HIV-1 RNA (PCR) log 09/24/20 09/24/20 09/24/20 05:12 11:25 12:09 WBC RBC Hgb Hct MCV MCH MCHC RDW Plt Count Lymph % (Auto) [place] % (Auto) Lymph # (Auto) [place] # (Auto) Seg Neutrophils % Seg Neuts % (Manual) Lymphocytes % (Manual) Monocytes % (Manual) Nucleated RBC % Seg Neutrophils # Seg Neutrophils # Man Abs Lymphs (Manual) Lymphocytes # (Manual) PT INR APTT D-Dimer Heparin Anti-Xa Level ABG pH POC ABG pCO2 POC ABG pO2 ABG Oxyhemoglobin ABG Sodium ABG Potassium ABG Glucose Carboxyhemoglobin Sodium Potassium Chloride Carbon Dioxide BUN Creatinine 3.1 H Glucose POC Glucose 114 H 110 H Calcium Phosphorus Ferritin Total Bilirubin AST ALT Alkaline Phosphatase Lactate Dehydrogenase Total Creatine Kinase Troponin T C-Reactive Protein NT-Pro-B Natriuret Pep Serum Total Protein Total Protein Albumin Cholesterol LDL Cholesterol Direct HDL Cholesterol PTH Intact Arterial Blood Glucose Urine WBC (Auto) Urine Creatinine Valproic Acid Heparin-induced Plt Ab Lymph Enumerat CD4/CD8 Absolute CD3 Count Absolute CD4 Count % CD8 Cells Absolute CD8 Count Absolute CD19 Count Coronavirus (PCR) HIV-1 RNA PCR copies/ml HIV-1 RNA (PCR) log 09/24/20 09/24/20 09/24/20 12:13 12:13 17:41 WBC 20.8 H RBC 3.04 L Hgb 9.5 L Hct 28.0 L MCV MCH MCHC RDW Plt Count 78 L Lymph % (Auto) [place] % (Auto) Lymph # (Auto) [place] # (Auto) Seg Neutrophils % Seg Neuts % (Manual) Lymphocytes % (Manual) Monocytes % (Manual) Nucleated RBC % Seg Neutrophils # Seg Neutrophils # Man Abs Lymphs (Manual) Lymphocytes # (Manual) PT 15.7 H INR 1.27 H APTT D-Dimer Heparin Anti-Xa Level ABG pH POC ABG pCO2 POC ABG pO2 ABG Oxyhemoglobin ABG Sodium ABG Potassium ABG Glucose Carboxyhemoglobin Sodium Potassium Chloride Carbon Dioxide BUN Creatinine Glucose POC Glucose 133 H Calcium Phosphorus Ferritin Total Bilirubin AST ALT Alkaline Phosphatase Lactate Dehydrogenase Total Creatine Kinase Troponin T C-Reactive Protein NT-Pro-B Natriuret Pep Serum Total Protein Total Protein Albumin Cholesterol LDL Cholesterol Direct HDL Cholesterol PTH Intact Arterial Blood Glucose Urine WBC (Auto) Urine Creatinine Valproic Acid Heparin-induced Plt Ab Lymph Enumerat CD4/CD8 Absolute CD3 Count Absolute CD4 Count % CD8 Cells Absolute CD8 Count Absolute CD19 Count Coronavirus (PCR) HIV-1 RNA PCR copies/ml HIV-1 RNA (PCR) log 09/24/20 09/25/20 09/25/20 23:34 06:40 06:40 WBC RBC Hgb Hct MCV MCH MCHC RDW Plt Count Lymph % (Auto) [place] % (Auto) Lymph # (Auto) [place] # (Auto) Seg Neutrophils % Seg Neuts % (Manual) Lymphocytes % (Manual) Monocytes % (Manual) Nucleated RBC % Seg Neutrophils # Seg Neutrophils # Man Abs Lymphs (Manual) Lymphocytes # (Manual) PT INR APTT D-Dimer Heparin Anti-Xa Level ABG pH POC ABG pCO2 POC ABG pO2 ABG Oxyhemoglobin ABG Sodium ABG Potassium ABG Glucose Carboxyhemoglobin Sodium Potassium Chloride 109.0 H Carbon Dioxide BUN 98 H Creatinine 3.0 H 3.0 H Glucose 111 H POC Glucose 113 H Calcium Phosphorus Ferritin Total Bilirubin AST ALT Alkaline Phosphatase Lactate Dehydrogenase Total Creatine Kinase Troponin T C-Reactive Protein NT-Pro-B Natriuret Pep Serum Total Protein Total Protein Albumin Cholesterol LDL Cholesterol Direct HDL Cholesterol PTH Intact Arterial Blood Glucose Urine WBC (Auto) Urine Creatinine Valproic Acid Heparin-induced Plt Ab Lymph Enumerat CD4/CD8 Absolute CD3 Count Absolute CD4 Count % CD8 Cells Absolute CD8 Count Absolute CD19 Count Coronavirus (PCR) HIV-1 RNA PCR copies/ml HIV-1 RNA (PCR) log 09/25/20 09/25/20 09/25/20 10:45 12:45 18:03 WBC 20.7 H RBC 3.33 L Hgb 10.2 L Hct 31.3 L MCV MCH MCHC RDW Plt Count 139 L Lymph % (Auto) [place] % (Auto) Lymph # (Auto) [place] # (Auto) Seg Neutrophils % Seg Neuts % (Manual) Lymphocytes % (Manual) Monocytes % (Manual) Nucleated RBC % Seg Neutrophils # Seg Neutrophils # Man Abs Lymphs (Manual) Lymphocytes # (Manual) PT INR APTT D-Dimer Heparin Anti-Xa Level ABG pH POC ABG pCO2 POC ABG pO2 ABG Oxyhemoglobin ABG Sodium ABG Potassium ABG Glucose Carboxyhemoglobin Sodium Potassium Chloride Carbon Dioxide BUN Creatinine Glucose POC Glucose 108 H 114 H Calcium Phosphorus Ferritin Total Bilirubin AST ALT Alkaline Phosphatase Lactate Dehydrogenase Total Creatine Kinase Troponin T C-Reactive Protein NT-Pro-B Natriuret Pep Serum Total Protein Total Protein Albumin Cholesterol LDL Cholesterol Direct HDL Cholesterol PTH Intact Arterial Blood Glucose Urine WBC (Auto) Urine Creatinine Valproic Acid Heparin-induced Plt Ab Lymph Enumerat CD4/CD8 Absolute CD3 Count Absolute CD4 Count % CD8 Cells Absolute CD8 Count Absolute CD19 Count Coronavirus (PCR) HIV-1 RNA PCR copies/ml HIV-1 RNA (PCR) log 09/25/20 09/26/20 09/26/20 23:29 05:00 07:06 WBC 17.0 H RBC 3.10 L Hgb 9.6 L Hct 28.8 L MCV MCH MCHC RDW Plt Count Lymph % (Auto) [place] % (Auto) Lymph # (Auto) [place] # (Auto) Seg Neutrophils % Seg Neuts % (Manual) Lymphocytes % (Manual) Monocytes % (Manual) Nucleated RBC % Seg Neutrophils # Seg Neutrophils # Man Abs Lymphs (Manual) Lymphocytes # (Manual) PT INR APTT D-Dimer Heparin Anti-Xa Level ABG pH POC ABG pCO2 POC ABG pO2 ABG Oxyhemoglobin ABG Sodium ABG Potassium ABG Glucose Carboxyhemoglobin Sodium Potassium Chloride Carbon Dioxide BUN Creatinine Glucose POC Glucose 111 H 115 H Calcium Phosphorus Ferritin Total Bilirubin AST ALT Alkaline Phosphatase Lactate Dehydrogenase Total Creatine Kinase Troponin T C-Reactive Protein NT-Pro-B Natriuret Pep Serum Total Protein Total Protein Albumin Cholesterol LDL Cholesterol Direct HDL Cholesterol PTH Intact Arterial Blood Glucose Urine WBC (Auto) Urine Creatinine Valproic Acid Heparin-induced Plt Ab Lymph Enumerat CD4/CD8 Absolute CD3 Count Absolute CD4 Count % CD8 Cells Absolute CD8 Count Absolute CD19 Count Coronavirus (PCR) HIV-1 RNA PCR copies/ml HIV-1 RNA (PCR) log 09/26/20 09/26/20 09/27/20 07:06 17:26 04:00 WBC RBC Hgb Hct MCV MCH MCHC RDW Plt Count Lymph % (Auto) [place] % (Auto) Lymph # (Auto) [place] # (Auto) Seg Neutrophils % Seg Neuts % (Manual) Lymphocytes % (Manual) Monocytes % (Manual) Nucleated RBC % Seg Neutrophils # Seg Neutrophils # Man Abs Lymphs (Manual) Lymphocytes # (Manual) PT INR APTT D-Dimer Heparin Anti-Xa Level ABG pH POC ABG pCO2 POC ABG pO2 ABG Oxyhemoglobin ABG Sodium ABG Potassium ABG Glucose Carboxyhemoglobin Sodium Potassium Chloride Carbon Dioxide BUN 69 H 67 H Creatinine 2.2 H 2.3 H Glucose 107 H 121 H POC Glucose 124 H Calcium Phosphorus Ferritin Total Bilirubin AST ALT Alkaline Phosphatase Lactate Dehydrogenase Total Creatine Kinase Troponin T C-Reactive Protein NT-Pro-B Natriuret Pep Serum Total Protein Total Protein Albumin Cholesterol LDL Cholesterol Direct HDL Cholesterol PTH Intact Arterial Blood Glucose Urine WBC (Auto) Urine Creatinine Valproic Acid Heparin-induced Plt Ab Lymph Enumerat CD4/CD8 Absolute CD3 Count Absolute CD4 Count % CD8 Cells Absolute CD8 Count Absolute CD19 Count Coronavirus (PCR) HIV-1 RNA PCR copies/ml HIV-1 RNA (PCR) log 09/27/20 09/27/20 09/27/20 04:00 05:00 17:11 WBC 14.6 H RBC 2.72 L Hgb 8.6 L Hct 25.8 L MCV 95 H MCH MCHC RDW Plt Count Lymph % (Auto) 4.3 L [place] % (Auto) Lymph # (Auto) 0.6 L [place] # (Auto) 0.9 H Seg Neutrophils % 89.6 H Seg Neuts % (Manual) Lymphocytes % (Manual) Monocytes % (Manual) Nucleated RBC % Seg Neutrophils # 13.1 H Seg Neutrophils # Man Abs Lymphs (Manual) Lymphocytes # (Manual) PT INR APTT D-Dimer Heparin Anti-Xa Level ABG pH POC ABG pCO2 POC ABG pO2 ABG Oxyhemoglobin ABG Sodium ABG Potassium ABG Glucose Carboxyhemoglobin Sodium Potassium Chloride Carbon Dioxide BUN Creatinine 2.4 H Glucose POC Glucose 132 H Calcium Phosphorus Ferritin Total Bilirubin AST ALT Alkaline Phosphatase Lactate Dehydrogenase Total Creatine Kinase Troponin T C-Reactive Protein NT-Pro-B Natriuret Pep Serum Total Protein Total Protein Albumin Cholesterol LDL Cholesterol Direct HDL Cholesterol PTH Intact Arterial Blood Glucose Urine WBC (Auto) Urine Creatinine Valproic Acid Heparin-induced Plt Ab Lymph Enumerat CD4/CD8 Absolute CD3 Count Absolute CD4 Count % CD8 Cells Absolute CD8 Count Absolute CD19 Count Coronavirus (PCR) HIV-1 RNA PCR copies/ml HIV-1 RNA (PCR) log 09/28/20 09/28/20 09/29/20 04:46 04:46 04:45 WBC 14.6 H RBC 2.66 L Hgb 8.4 L Hct 25.3 L MCV 95 H MCH MCHC RDW Plt Count Lymph % (Auto) [place] % (Auto) Lymph # (Auto) [place] # (Auto) Seg Neutrophils % Seg Neuts % (Manual) Lymphocytes % (Manual) Monocytes % (Manual) Nucleated RBC % Seg Neutrophils # Seg Neutrophils # Man Abs Lymphs (Manual) Lymphocytes # (Manual) PT INR APTT D-Dimer Heparin Anti-Xa Level ABG pH POC ABG pCO2 POC ABG pO2 ABG Oxyhemoglobin ABG Sodium ABG Potassium ABG Glucose Carboxyhemoglobin Sodium Potassium Chloride Carbon Dioxide BUN 71 H 63 H Creatinine 2.3 H 2.2 H Glucose 105 H POC Glucose Calcium Phosphorus Ferritin Total Bilirubin AST ALT Alkaline Phosphatase Lactate Dehydrogenase Total Creatine Kinase Troponin T C-Reactive Protein NT-Pro-B Natriuret Pep Serum Total Protein Total Protein Albumin Cholesterol LDL Cholesterol Direct HDL Cholesterol PTH Intact Arterial Blood Glucose Urine WBC (Auto) Urine Creatinine Valproic Acid Heparin-induced Plt Ab Lymph Enumerat CD4/CD8 Absolute CD3 Count Absolute CD4 Count % CD8 Cells Absolute CD8 Count Absolute CD19 Count Coronavirus (PCR) HIV-1 RNA PCR copies/ml HIV-1 RNA (PCR) log 09/29/20 09/29/20 09/29/20 04:45 05:43 17:50 WBC RBC 2.92 L Hgb 9.6 L Hct 28.1 L MCV 96 H MCH 33 H MCHC RDW Plt Count Lymph % (Auto) [place] % (Auto) Lymph # (Auto) [place] # (Auto) Seg Neutrophils % Seg Neuts % (Manual) Lymphocytes % (Manual) Monocytes % (Manual) Nucleated RBC % Seg Neutrophils # Seg Neutrophils # Man Abs Lymphs (Manual) Lymphocytes # (Manual) PT INR APTT D-Dimer Heparin Anti-Xa Level ABG pH POC ABG pCO2 POC ABG pO2 ABG Oxyhemoglobin ABG Sodium ABG Potassium ABG Glucose Carboxyhemoglobin Sodium Potassium Chloride Carbon Dioxide BUN Creatinine Glucose POC Glucose 69 L 132 H Calcium Phosphorus Ferritin Total Bilirubin AST ALT Alkaline Phosphatase Lactate Dehydrogenase Total Creatine Kinase Troponin T C-Reactive Protein NT-Pro-B Natriuret Pep Serum Total Protein Total Protein Albumin Cholesterol LDL Cholesterol Direct HDL Cholesterol PTH Intact Arterial Blood Glucose Urine WBC (Auto) Urine Creatinine Valproic Acid Heparin-induced Plt Ab Lymph Enumerat CD4/CD8 Absolute CD3 Count Absolute CD4 Count % CD8 Cells Absolute CD8 Count Absolute CD19 Count Coronavirus (PCR) HIV-1 RNA PCR copies/ml HIV-1 RNA (PCR) log 09/30/20 09/30/20 09/30/20 04:47 04:47 04:47 WBC RBC 2.47 L Hgb 8.1 L Hct 23.9 L MCV 97 H MCH 33 H MCHC RDW Plt Count Lymph % (Auto) [place] % (Auto) Lymph # (Auto) [place] # (Auto) Seg Neutrophils % Seg Neuts % (Manual) Lymphocytes % (Manual) Monocytes % (Manual) Nucleated RBC % Seg Neutrophils # Seg Neutrophils # Man Abs Lymphs (Manual) Lymphocytes # (Manual) PT INR APTT D-Dimer Heparin Anti-Xa Level ABG pH POC ABG pCO2 POC ABG pO2 ABG Oxyhemoglobin ABG Sodium ABG Potassium ABG Glucose Carboxyhemoglobin Sodium Potassium Chloride Carbon Dioxide 31 H BUN 63 H Creatinine 2.1 H Glucose POC Glucose Calcium Phosphorus Ferritin Total Bilirubin AST ALT Alkaline Phosphatase Lactate Dehydrogenase Total Creatine Kinase Troponin T C-Reactive Protein NT-Pro-B Natriuret Pep Serum Total Protein 5.5 L Total Protein 5.9 L Albumin 2.2 L 2.1 L Cholesterol LDL Cholesterol Direct HDL Cholesterol PTH Intact Arterial Blood Glucose Urine WBC (Auto) Urine Creatinine Valproic Acid Heparin-induced Plt Ab Lymph Enumerat CD4/CD8 Absolute CD3 Count Absolute CD4 Count % CD8 Cells Absolute CD8 Count Absolute CD19 Count Coronavirus (PCR) HIV-1 RNA PCR copies/ml HIV-1 RNA (PCR) log 10/01/20 10/01/20 10/02/20 07:16 08:30 05:10 WBC RBC Hgb Hct MCV MCH MCHC RDW Plt Count Lymph % (Auto) [place] % (Auto) Lymph # (Auto) [place] # (Auto) Seg Neutrophils % Seg Neuts % (Manual) Lymphocytes % (Manual) Monocytes % (Manual) Nucleated RBC % Seg Neutrophils # Seg Neutrophils # Man Abs Lymphs (Manual) Lymphocytes # (Manual) PT INR APTT D-Dimer Heparin Anti-Xa Level ABG pH POC ABG pCO2 POC ABG pO2 ABG Oxyhemoglobin ABG Sodium ABG Potassium ABG Glucose Carboxyhemoglobin Sodium Potassium Chloride Carbon Dioxide BUN 58 H 48 H Creatinine 2.2 H 2.0 H Glucose POC Glucose Calcium Phosphorus Ferritin Total Bilirubin AST ALT Alkaline Phosphatase Lactate Dehydrogenase Total Creatine Kinase Troponin T C-Reactive Protein NT-Pro-B Natriuret Pep Serum Total Protein Total Protein Albumin Cholesterol LDL Cholesterol Direct HDL Cholesterol PTH Intact Arterial Blood Glucose Urine WBC (Auto) Urine Creatinine Valproic Acid Heparin-induced Plt Ab Lymph Enumerat CD4/CD8 Absolute CD3 Count Absolute CD4 Count % CD8 Cells Absolute CD8 Count Absolute CD19 Count Coronavirus (PCR) Positive A HIV-1 RNA PCR copies/ml HIV-1 RNA (PCR) log 10/03/20 10/03/20 10/04/20 08:12 08:12 18:19 WBC RBC Hgb Hct MCV MCH MCHC RDW Plt Count Lymph % (Auto) [place] % (Auto) Lymph # (Auto) [place] # (Auto) Seg Neutrophils % Seg Neuts % (Manual) Lymphocytes % (Manual) Monocytes % (Manual) Nucleated RBC % Seg Neutrophils # Seg Neutrophils # Man Abs Lymphs (Manual) Lymphocytes # (Manual) PT INR APTT D-Dimer Heparin Anti-Xa Level ABG pH POC ABG pCO2 POC ABG pO2 ABG Oxyhemoglobin ABG Sodium ABG Potassium ABG Glucose Carboxyhemoglobin Sodium Potassium 5.4 H D Chloride Carbon Dioxide BUN 48 H 39 H Creatinine 2.2 H 2.7 H Glucose POC Glucose Calcium 8.0 L Phosphorus Ferritin Total Bilirubin AST ALT Alkaline Phosphatase Lactate Dehydrogenase Total Creatine Kinase Troponin T C-Reactive Protein NT-Pro-B Natriuret Pep Serum Total Protein Total Protein Albumin Cholesterol LDL Cholesterol Direct HDL Cholesterol PTH Intact Arterial Blood Glucose Urine WBC (Auto) Urine Creatinine Valproic Acid 17.8 L Heparin-induced Plt Ab Lymph Enumerat CD4/CD8 Absolute CD3 Count Absolute CD4 Count % CD8 Cells Absolute CD8 Count Absolute CD19 Count Coronavirus (PCR) HIV-1 RNA PCR copies/ml HIV-1 RNA (PCR) log 10/04/20 10/05/20 10/05/20 18:19 07:14 07:14 WBC RBC 2.44 L 2.36 L Hgb 8.0 L 7.8 L Hct 24.0 L 23.3 L MCV 98 H 99 H MCH 33 H 33 H MCHC RDW 15.6 H 16.0 H Plt Count Lymph % (Auto) [place] % (Auto) Lymph # (Auto) [place] # (Auto) Seg Neutrophils % Seg Neuts % (Manual) Lymphocytes % (Manual) Monocytes % (Manual) Nucleated RBC % Seg Neutrophils # Seg Neutrophils # Man Abs Lymphs (Manual) Lymphocytes # (Manual) PT INR APTT D-Dimer Heparin Anti-Xa Level ABG pH POC ABG pCO2 POC ABG pO2 ABG Oxyhemoglobin ABG Sodium ABG Potassium ABG Glucose Carboxyhemoglobin Sodium Potassium Chloride Carbon Dioxide BUN 36 H Creatinine 2.5 H Glucose POC Glucose Calcium Phosphorus Ferritin Total Bilirubin AST ALT Alkaline Phosphatase Lactate Dehydrogenase Total Creatine Kinase Troponin T C-Reactive Protein NT-Pro-B Natriuret Pep Serum Total Protein Total Protein Albumin Cholesterol LDL Cholesterol Direct HDL Cholesterol PTH Intact Arterial Blood Glucose Urine WBC (Auto) Urine Creatinine Valproic Acid Heparin-induced Plt Ab Lymph Enumerat CD4/CD8 Absolute CD3 Count Absolute CD4 Count % CD8 Cells Absolute CD8 Count Absolute CD19 Count Coronavirus (PCR) HIV-1 RNA PCR copies/ml HIV-1 RNA (PCR) log 10/06/20 10/06/20 10/07/20 08:04 Unknown 06:45 WBC RBC 2.38 L Hgb 7.9 L Hct 23.2 L MCV 98 H MCH 33 H MCHC RDW 15.4 H Plt Count Lymph % (Auto) [place] % (Auto) Lymph # (Auto) [place] # (Auto) Seg Neutrophils % Seg Neuts % (Manual) Lymphocytes % (Manual) Monocytes % (Manual) Nucleated RBC % Seg Neutrophils # Seg Neutrophils # Man Abs Lymphs (Manual) Lymphocytes # (Manual) PT INR APTT D-Dimer Heparin Anti-Xa Level ABG pH POC ABG pCO2 POC ABG pO2 ABG Oxyhemoglobin ABG Sodium ABG Potassium ABG Glucose Carboxyhemoglobin Sodium Potassium 3.5 L Chloride 107.2 H Carbon Dioxide BUN 30 H Creatinine 2.2 H Glucose POC Glucose Calcium Phosphorus Ferritin Total Bilirubin AST ALT Alkaline Phosphatase Lactate Dehydrogenase Total Creatine Kinase Troponin T C-Reactive Protein NT-Pro-B Natriuret Pep Serum Total Protein Total Protein Albumin Cholesterol LDL Cholesterol Direct HDL Cholesterol PTH Intact Arterial Blood Glucose Urine WBC (Auto) Urine Creatinine Valproic Acid Heparin-induced Plt Ab Lymph Enumerat CD4/CD8 Absolute CD3 Count Absolute CD4 Count % CD8 Cells Absolute CD8 Count Absolute CD19 Count Coronavirus (PCR) Positive A HIV-1 RNA PCR copies/ml HIV-1 RNA (PCR) log 10/07/20 06:45 WBC RBC Hgb Hct MCV MCH MCHC RDW Plt Count Lymph % (Auto) [place] % (Auto) Lymph # (Auto) [place] # (Auto) Seg Neutrophils % Seg Neuts % (Manual) Lymphocytes % (Manual) Monocytes % (Manual) Nucleated RBC % Seg Neutrophils # Seg Neutrophils # Man Abs Lymphs (Manual) Lymphocytes # (Manual) PT INR APTT D-Dimer Heparin Anti-Xa Level ABG pH POC ABG pCO2 POC ABG pO2 ABG Oxyhemoglobin ABG Sodium ABG Potassium ABG Glucose Carboxyhemoglobin Sodium Potassium Chloride Carbon Dioxide BUN 28 H Creatinine 2.2 H Glucose POC Glucose Calcium Phosphorus Ferritin Total Bilirubin AST ALT Alkaline Phosphatase Lactate Dehydrogenase Total Creatine Kinase Troponin T C-Reactive Protein NT-Pro-B Natriuret Pep Serum Total Protein Total Protein Albumin Cholesterol LDL Cholesterol Direct HDL Cholesterol PTH Intact Arterial Blood Glucose Urine WBC (Auto) Urine Creatinine Valproic Acid Heparin-induced Plt Ab Lymph Enumerat CD4/CD8 Absolute CD3 Count Absolute CD4 Count % CD8 Cells Absolute CD8 Count Absolute CD19 Count Coronavirus (PCR) HIV-1 RNA PCR copies/ml HIV-1 RNA (PCR) log Allied health notes reviewed: nursing
[2020-10-08 21:04] LABS: Calcium 8.5 mg/dL (8.4-10.2)
--- NOTE | 2020-10-09 07:16 | Progress Note ---
Assessment and Plan Assessment and plan: This is 70-year-old male with HIV, HTN, and atrial fibrillation (currently on therapeutic anticoagulation with Xarelto) admitted with atrial fibrillation with RVR, SIRs, metabolic acidosis, acute kidney injury, acute hypoxic respiratory failure, hypotension, and CHF Septic Shock Acute hypoxemic respiratory failure 2/2 to volume overload/chf exacerbation Acute systolic heart failure exacerbation Atrial fibrillation with RVR Acute on chronic kidney injury Hypotension Anemia Thrombocytopenia E coli bacteremia E. coli urinary tract infection NSTEMI Elevated Ddimer Leukocytosis HIV, asymptomatic HTN Coagulopathy Transaminitis -Cardiology, CCM, Nephrology, ID, general surgery, heme/onc consulted, appreciate recommendations -09/20 COVID-19 PCR positive -Droplet/isolation precautions -Dexamethasone 6 mg p.o. (09/20-09/30) -Vitamin D, vitamin C, zinc -Vasopressor support with levophed and vasopressin, midodrine -09/17 CXR shows borderline heart size, mild central pulmonary venous congestion -09/17 renal ultrasound shows no acute findings -09/18 echocardiogram shows left ventricle systolic function mildly decreased, LVEF of 40 to 45% with mild concentric left ventricle hypertrophy, trace MR, mild TR, trace NE -09/19 abdominal ultrasound shows large gallstone within the gallbladder, no pericholecystic fluid, gallbladder wall upper limits of normal measuring 3 mm -09/21 HIDA scan shows no evidence of acute cholecystitis -09/21 BLE Dopplar US no evidence for DVT -09/23 CT head shows no acute intracranial hemorrhage or parenchymal abnormality, mild diffuse brain atrophy with commensurate ventricular enlargement which is likely age appropriate, small frontal scalp lipoma measuring 9 mm in thickness, 4 cm in length, and 4 cm in width., Sinuses and mastoid air cells are clear. -09/17 proBNP 28957 -S/p IV Lasix twice daily -09/20 nephrology initiated the patient on dialysis -Pulmonary hygiene -Bipap qhs -09/25 CT abd/pelvis without contrast pending -PO amiodarone -HIV meds per ID -IV abx therapy -HIT pending -Trend CBC, BMP, LFTs DVT/GI prophylaxis: PPI, SCDs to bilateral lower extremities while in bed, no chemical anticoagulation at this time d/t thrombocytopenia Disposition: IMCU History Interval history: This is 70-year-old male with HIV, HTN, and atrial fibrillation (currently on therapeutic anticoagulation with Xarelto) presents the emergency department on 09/17 with complaints of shortness of breath over the past 3 days and on arrival of EMS patient was found to have a pulse oximetry of 85% on room air. He was placed on supplemental oxygenation. Of note patient was admitted on 09/15 with similar complaints and found to have A. fib with RVR, hyponatremia, hypomagnesemia and acute kidney injury and left AMA. He was admitted to the hospital service with atrial fibrillation with RVR, SIRs, metabolic acidosis, acute kidney injury, acute hypoxic respiratory failure, hypotension, and CHF . Cardiology, CCM and nephrology were consulted. 09/18/2020. Await echocardiogram to assess for diastolic versus systolic etiology. Patient with elevated BNP greater than 18,000. Patient apparently was admitted approximately 3 days ago but left AMA. Cardiology consulted for heart failure, A. fib with RVR and elevated troponin. Patient denies chest pain. Also, patient with elevated creatinine of 4.7 with creatinine 2.8 on recent admission. We do not have a previous creatinine as a baseline to compare. Nephrology consultation pending. Follow-up renal ultrasound. Patient with coagulopathy and INR 3.04. Unsure if patient was on anticoagulation for A. fib. 09/19/2020. Patient likely with vasomotor acute kidney injury in the setting of s hock. Follow-up urine studies and renal ultrasound. Creatinine continues to worsen. Nephrology following. Etiology of respiratory failure secondary to heart failure with Covid testing pending. Elevated troponin suggestive of NSTEMI. Continue diuresis with Lasix. Continue IV amiodarone for rate control of A. fib with RVR. Continue heparin. Follow-up echocardiogram. Cardiology following. 09/20/2020: This time my examination patient was on BiPAP therapy and now is on nasal cannula. Patient remains on amiodarone drip with heart rate in the 130s to 140s and vasopressor support with Levophed. Today nephrology will initiate hemodialysis given worsening renal function studies and has stopped diuresis with Lasix. ID resumed antiretroviral therapy and ordered a HIDA scan. Today the patient received a temporary Vas-Cath and is COVID-19 PCR resulted as positive. Patient will be started on vitamin C, vitamin D and zinc and dexamethasone given need for supplemental oxygenation. 09/21: Ecoli UTI and bacteremia and ID has changed him to meropenem, Patient received HD yesterday and patient remains on amiodarone drip. He is off the floor to obtain a HIDA scan. 09/22: HIDA scan did not show acute cholecystitis. Ecoli bacteremia is sensitive to ceftriaxone and ID changed his abx. Mentation is better. BP is liable. Remains on levophed and vasopressin. We started midodrine. HIT panel pending and hem/onc consulted. 09/23: Patient noted to have unequal pupils with left >right, STAT CT head ordered. Nephro will withhold hemodialysis and assess needs as kidney function has gotten better. Patient symptomatically follows commands and is on nasal cannula. Cardiology stopped his Eliquis due to persistent thrombocytopenia. 09/24: Patient remains confused, pupils still unequal. Started on eliquis 2.5 today and he will be transferred to IMCU. 09/25: Patient remains confused, had Bipap overnight, CT abd/pelvis ordered per ID recommendations given persistent leukocytosis. Cr remains unchanged but BUN in rising. Nephrology is on the case. 09/26/2020; patient was confused and on 3 L of oxygen. ID is following the patient and continue with antiretroviral medications, no OI prophylaxis needed. Patient is on IV Rocephin lasted 09/28 per ID recommendation for E. coli bacteremia. ID ordered CT abdomen and pelvis. We will follow the results. Patient is being followed by cardiology and they recommend to resume Eliquis with 2.5 mg p.o. twice daily, thrombocytopenia is improving. Patient is on amiodarone and metoprolol. Patient is being followed by nephrology and is on dialysis. Blood pressure was normal this morning. Patient was tachycardic in A. fib with RVR. CT head was normal. Prognosis is guarded. Continue IMCU care. 09/27: Continue IMCU care, still with unresolved Afib, will continue to adjust medications for better control. 09/28: Start Seroquel DUE TO THE AGITATION, Discussed with daughter, will work on getting Afib better controlled. Per daughter the confusion is new, although some improvement noted today. Patient will benefit from SNF 09/29: Seroquel started today as it was not started yesterday, await PT/OT, Continue to monitor mental status, will transfer to Tele. Anticipate discharge when bed available. 09/30: Discussed extensively with the daughter about her clinical condition, Seroquel discontinued as patient did not tolerate, still with low BP responded to Fluids. Hold BB and continue to monitor and redirect. Discussed with Nursing staff. 10/01: Patient seen and examined resting comfortably still with intermittent delirium. Blood pressure has improved although beta-ruddy was held midodrine was given. Will change to Coreg 3.125 with holding parameters on discharge. Per cardiology amiodarone changed to 200 mg daily. Neurology evaluation is still pending. I have initiated placement to a SNF facility and once approved patient can be discharged. Daughter has been updated on medical condition. For now on anticoagulation left in place although outpatient this may be discontinued due to patient's mental status if there is no improvement. 10/02: Neurology evaluated the patient for increased agitation and aggressive behavior and confusion. Exam suggestive of delirium stopped. Due to not tolerating Seroquel, now Geodon trial Haldol however recommended also valproic acid. No overnight issues reported. Continue awaiting SNF placement for continued rehab. Blood pressure has remained stable no further fever recorded. Monitor for any recurrence of the pain in the leg. 10/03: I have asked for a sitter a few days ago unfortunately not as available as a result restraints have been used and reassurances. Will decrease Seroquel to 12.5 twice daily as patient did not tolerate the 25 mg. Continue supportive care blood pressure meds held due to hypotension. Delirium still present delirium preventive methods including keeping the lights on through the night windows shades up discussed with nursing staff. Also discussed with neurologist. 10/04: 70-year-old male admitted to the hospital with hypoxic respiratory failure history of Covid. During hospitalization developed A. fib with RVR status metabolic acidosis and acute kidney injury. Has also been exhibiting some delirium was managed in the ICU and IMCU and subsequently is awaiting placement. He was seen by neurologist delirium of diagnosis secondary to metabolic issues. Seroquel was started initially at 25 mg p.o. twice daily but patient developed hypotension now better improved BP, Continue seroquel 12.5mg po BID seems to have good improvement in mental status. awaiting labs due to noted hyperkalemia yesterday. Repeat covud test for placement. 10/05/2020; patient is pending for placement. Repeat Covid test is negative. Blood pressure is within normal limit. Patient is confused. 10/06/2020; repeat Covid test is negative. Patient is confused. Patient last dialysis was on 09/25, renal function is stable, no need dialysis, nephrology is following. 10/07/2020; Covid test was done yesterday and was positive. Renal function is improving and nephrology is following at this time. Last dialysis was on 09/25. Patient is pending placement. Mental health consulted for confusion. 10/08/2020; patient was calm and cooperative. Patient was on condom cath. Patient was oriented only to self. 10/09/2020; patient was calm and cooperative. Patient was oriented only to self. Renal function is improving. Patient is pending placement. History Interval history: Patient was seen and evaluated this morning Patient was off restraint, calm and cooperative Patient was oriented only to self No complaints Hospitalist Physical - Physical exam Narrative exam: Patient was noting cardiopulmonary distress. The patient appeared well nourished and normally developed. Vital signs as documented. Head exam is unremarkable. No scleral icterus . Neck is without jugular venous distension, thyromegaly, or carotid bruits. Lungs are clear to auscultation. Cardiac exam reveals regular rate and Rhythm. Abdominal exam reveals normal bowel sounds, nontender, no organomegaly. Extremities are nonedematous and both femoral and pedal pulses are normal. [employer]: Patient was calm and cooperative. Patient was ordered oriented only to self. - Constitutional Vitals: Temp Pulse Resp BP Pulse Ox 98.5 F 97 H 18 111/73 98 10/09/20 05:25 10/09/20 05:25 10/09/20 05:25 10/09/20 05:25 10/09/20 05:25 General appearance: Present: no acute distress HEART Score - HEART Score Troponin: Troponin T < 0.010 ng/mL (0.00-0.029) 09/22/20 05:38 Results - Labs CBC & Chem 7: 10/07/20 06:45 10/08/20 20:19 Labs: Laboratory Last Values WBC 6.1 K/mm3 (4.5-11.0) 10/07/20 06:45 RBC 2.38 M/mm3 (3.65-5.03) L 10/07/20 06:45 Hgb 7.9 gm/dl (11.8-15.2) L 10/07/20 06:45 Hct 23.2 % (35.5-45.6) L 10/07/20 06:45 MCV 98 fl (84-94) H 10/07/20 06:45 MCH 33 pg (28-32) H 10/07/20 06:45 MCHC 34 % (32-34) 10/07/20 06:45 RDW 15.4 % (13.2-15.2) H 10/07/20 06:45 Plt Count 203 K/mm3 (140-440) 10/07/20 06:45 Lymph % (Auto) 4.3 % (13.4-35.0) L 09/27/20 04:00 Gilchrist % (Auto) 6.0 % (0.0-7.3) 09/27/20 04:00 Eos % (Auto) 0.1 % (0.0-4.3) 09/27/20 04:00 Baso % (Auto) 0.0 % (0.0-1.8) 09/27/20 04:00 Lymph # (Auto) 0.6 K/mm3 (1.2-5.4) L 09/27/20 04:00 Gilchrist # (Auto) 0.9 K/mm3 (0.0-0.8) H 09/27/20 04:00 Eos # (Auto) 0.0 K/mm3 (0.0-0.4) 09/27/20 04:00 Baso # (Auto) 0.0 K/mm3 (0.0-0.1) 09/27/20 04:00 Add Manual Diff Complete 09/23/20 04:36 Total Counted 100 09/23/20 04:36 Seg Neutrophils % 89.6 % (40.0-70.0) H 09/27/20 04:00 Seg Neuts % (Manual) 91.0 % (40.0-70.0) H 09/23/20 04:36 Band Neutrophils % 2.0 % 09/23/20 04:36 Lymphocytes % (Manual) 2.0 % (13.4-35.0) L 09/23/20 04:36 Monocytes % (Manual) 5.0 % (0.0-7.3) 09/23/20 04:36 Nucleated RBC % Not Reportable 09/23/20 04:36 Seg Neutrophils # 13.1 K/mm3 (1.8-7.7) H 09/27/20 04:00 Seg Neutrophils # Man 12.9 K/mm3 (1.8-7.7) H 09/23/20 04:36 Band Neutrophils # 0.3 K/mm3 09/23/20 04:36 Abs Lymphs (Manual) 223 cells/uL (850-3900) L 09/19/20 13:35 Lymphocytes # (Manual) 0.3 K/mm3 (1.2-5.4) L 09/23/20 04:36 Abs React Lymphs (Man) 0.0 K/mm3 09/23/20 04:36 Monocytes # (Manual) 0.7 K/mm3 (0.0-0.8) 09/23/20 04:36 Eosinophils # (Manual) 0.0 K/mm3 (0.0-0.4) 09/23/20 04:36 Basophils # (Manual) 0.0 K/mm3 (0.0-0.1) 09/23/20 04:36 Metamyelocytes # 0.0 K/mm3 09/23/20 04:36 Myelocytes # 0.0 K/mm3 09/23/20 04:36 Promyelocytes # 0.0 K/mm3 09/23/20 04:36 Blast Cells # 0.0 K/mm3 09/23/20 04:36 WBC Morphology Not Reportable 09/23/20 04:36 Hypersegmented Neuts Not Reportable 09/23/20 04:36 Hyposegmented Neuts Not Reportable 09/23/20 04:36 Hypogranular Neuts Not Reportable 09/23/20 04:36 Smudge Cells Not Reportable 09/23/20 04:36 Toxic Granulation Not Reportable 09/23/20 04:36 Toxic Vacuolation Not Reportable 09/23/20 04:36 Dohle Bodies Not Reportable 09/23/20 04:36 Pelger-Huet Anomaly Not Reportable 09/23/20 04:36 Vinh Rods Not Reportable 09/23/20 04:36 Platelet Estimate Consistent w auto 09/23/20 04:36 Clumped Platelets Not Reportable 09/23/20 04:36 Plt Clumps, EDTA Not Reportable 09/23/20 04:36 Large Platelets Not Reportable 09/23/20 04:36 Giant Platelets Not Reportable 09/23/20 04:36 Platelet Satelliting Not Reportable 09/23/20 04:36 Plt Morphology Comment Not Reportable 09/23/20 04:36 RBC Morphology Not Reportable 09/23/20 04:36 Dimorphic RBCs Not Reportable 09/23/20 04:36 Polychromasia Not Reportable 09/23/20 04:36 Hypochromasia Not Reportable 09/23/20 04:36 Poikilocytosis Not Reportable 09/23/20 04:36 Anisocytosis 1+ 09/23/20 04:36 Microcytosis Not Reportable 09/23/20 04:36 Macrocytosis Not Reportable 09/23/20 04:36 Spherocytes Not Reportable 09/23/20 04:36 Pappenheimer Bodies Not Reportable 09/23/20 04:36 Sickle Cells Not Reportable 09/23/20 04:36 Target Cells Few 09/23/20 04:36 Tear Drop Cells Not Reportable 09/23/20 04:36 Ovalocytes Not Reportable 09/23/20 04:36 Helmet Cells Not Reportable 09/23/20 04:36 Lazo-House Bodies Not Reportable 09/23/20 04:36 Ulysses Rings Not Reportable 09/23/20 04:36 Vita Cells Not Reportable 09/23/20 04:36 Bite Cells Not Reportable 09/23/20 04:36 Crenated Cell Not Reportable 09/23/20 04:36 Elliptocytes Not Reportable 09/23/20 04:36 Acanthocytes (Spur) Not Reportable 09/23/20 04:36 Rouleaux Not Reportable 09/23/20 04:36 Hemoglobin C Crystals Not Reportable 09/23/20 04:36 Schistocytes Not Reportable 09/23/20 04:36 Malaria parasites Not Reportable 09/23/20 04:36 Zachary Bodies Not Reportable 09/23/20 04:36 Hem Pathologist Commnt No 09/23/20 04:36 PT 15.7 Sec. (12.2-14.9) H 09/24/20 12:13 INR 1.27 (0.87-1.13) H 09/24/20 12:13 APTT 25.7 Sec. (24.2-36.6) 09/24/20 12:13 D-Dimer 1772.86 ng/mlDDU (0-234) H 09/24/20 05:00 Heparin Anti-Xa Level 0.10 U.I./ml (0.3-0.7) L 09/20/20 04:00 Heparin Anti-Xa, Unfract Negative (Negative) 09/22/20 15:12 ABG pH 7.508 (7.320-7.450) H 09/17/20 10:28 POC ABG pCO2 22.8 mmHg (32.0-48.0) L 09/17/20 10:28 POC ABG pO2 66.8 mmHg (83-108) L 09/17/20 10:28 POC ABG HCO3 17.7 09/17/20 10:28 ABG O2 Saturation 93.4 (0-100) 09/17/20 10:28 POC ABG Base Excess -3.5 09/17/20 10:28 ABG Hemoglobin 12.7 (12.0-17.5) 09/17/20 10:28 ABG Oxyhemoglobin 92.7 (94-98) L 09/17/20 10:28 ABG Methemoglobin 0.3 (0.0-1.5) 09/17/20 10:28 ABG Sodium 127.4 mmol/L (136.0-145.0) L 09/17/20 10:28 ABG Potassium 4.7 mmol/L (3.40-4.50) H 09/17/20 10:28 ABG Chloride 101.0 mmol/L (98-107) 09/17/20 10:28 ABG Glucose 121 mg/dL (65-95) H 09/17/20 10:28 Carboxyhemoglobin 0.4 (0.5-1.5) L 09/17/20 10:28 FiO2 % 21 09/17/20 10:28 Sodium 135 mmol/L (137-145) L 10/08/20 20:19 Potassium 3.9 mmol/L (3.6-5.0) 10/08/20 20:19 Chloride 101.6 mmol/L (98-107) 10/08/20 20:19 Carbon Dioxide 25 mmol/L (22-30) 10/08/20 20:19 Anion Gap 12 mmol/L 10/08/20 20:19 BUN 22 mg/dL (9-20) H 10/08/20 20:19 Creatinine 2.0 mg/dL (0.8-1.3) H 10/08/20 20:19 Estimated GFR 40 ml/min 10/08/20 20:19 BUN/Creatinine Ratio 11 % 10/08/20 20:19 Glucose 99 mg/dL (75-100) 10/08/20 20:19 POC Glucose 72 mg/dL (70-105) 09/30/20 11:45 Lactic Acid 1.00 mmol/L (0.7-2.0) 09/20/20 17:10 Calcium 8.5 mg/dL (8.4-10.2) 10/08/20 20:19 Phosphorus 2.90 mg/dL (2.5-4.5) 09/26/20 07:06 Magnesium 1.70 mg/dL (1.7-2.3) 09/26/20 07:06 Ferritin 1190.0 ng/mL (30.0-300.0) H 09/24/20 05:00 Total Bilirubin 0.80 mg/dL (0.1-1.2) 09/30/20 04:47 AST 14 units/L (5-40) 09/30/20 04:47 ALT 21 units/L (7-56) 09/30/20 04:47 Alkaline Phosphatase 81 units/L (35-129) 09/30/20 04:47 Lactate Dehydrogenase 276 units/L (91-180) H 09/24/20 05:00 Total Creatine Kinase 20 units/L (55-170) L 09/19/20 03:30 Troponin T < 0.010 ng/mL (0.00-0.029) 09/22/20 05:38 C-Reactive Protein 4.20 mg/dL (0.00-1.30) H 09/24/20 05:00 NT-Pro-B Natriuret Pep 29067 pg/mL (0-900) H 09/17/20 10:47 Serum Total Protein 5.5 g/dL (6.1-8.1) L 09/30/20 04:47 Total Protein 5.9 g/dL (6.3-8.2) L 09/30/20 04:47 Albumin 2.1 g/dL (3.8-4.8) L 09/30/20 04:47 Albumin 2.2 g/dL (3.9-5) L 09/30/20 04:47 Albumin/Globulin Ratio 0.6 % 09/30/20 04:47 Zzzbd-4-Cqxnnxxau 0.3 g/dL (0.2-0.3) 09/30/20 04:47 Mmwof-1-Wxlixcofy 0.7 g/dL (0.5-0.9) 09/30/20 04:47 Beta Globulins 0.3 g/dL (0.2-0.5) 09/30/20 04:47 Gamma Globulins 1.7 g/dL (0.8-1.7) 09/30/20 04:47 Abnorm Protein Band 1 see below 09/30/20 04:47 PEP Interpretation see below 09/30/20 04:47 Triglycerides 137 mg/dL (2-149) 09/17/20 13:54 Cholesterol 48 mg/dL (50-199) L 09/17/20 13:54 LDL Cholesterol Direct 4 mg/dL (50-130) L 09/17/20 13:54 HDL Cholesterol 9 mg/dL (40-59) L 09/17/20 13:54 Cholesterol/HDL Ratio 5.33 % 09/17/20 13:54 Free PSA See scanned result 09/17/20 17:35 % Free PSA Calc See scanned result 09/17/20 17:35 Total PSA See scanned result 09/17/20 17:35 Serotonin Release Assay See scanned result 09/22/20 15:12 Procalcitonin 2.10 ng/mL (<0.15) 09/25/20 06:40 PTH Intact 161.4 pg/mL (15-65) H 09/19/20 03:30 Arterial Blood Glucose 121 mg/dL (65-95) H 09/17/20 10:28 Arterial Blood Ionized Calcium 5.0 mg/dL (4.6-5.3) 09/17/20 10:28 Urine Color Yellow (Yellow) 09/18/20 12:00 Urine Turbidity Cloudy (Clear) 09/18/20 12:00 Urine pH 5.0 (5.0-7.0) 09/18/20 12:00 Ur Specific [place] 1.009 (1.003-1.030) 09/18/20 12:00 Urine Protein 30 mg/dl mg/dL (Negative) 09/18/20 12:00 Urine Glucose (UA) Neg mg/dL (Negative) 09/18/20 12:00 Urine Ketones Neg mg/dL (Negative) 09/18/20 12:00 Urine Blood Sm (Negative) 09/18/20 12:00 Urine Nitrite Neg (Negative) 09/18/20 12:00 Urine Bilirubin Neg (Negative) 09/18/20 12:00 Urine Urobilinogen < 2.0 mg/dL (<2.0) 09/18/20 12:00 Ur Leukocyte Esterase Mod (Negative) 09/18/20 12:00 Urine WBC (Auto) 71.0 /HPF (0.0-6.0) H 09/18/20 12:00 Urine RBC (Auto) 2.0 /HPF (0.0-6.0) 09/18/20 12:00 U Epithel Cells (Auto) 1.0 /HPF (0-13.0) 09/18/20 12:00 Urine Bacteria (Auto) 4+ /HPF (Negative) 09/18/20 12:00 Urine WBC Clumps 2+ /HPF 09/18/20 12:00 Hyaline Casts 3 /LPF 09/18/20 12:00 Granular Casts 3 /LPF 09/18/20 12:00 Urine Mucus Few /HPF 09/18/20 12:00 Urine Eosinophils None seen (None Seen) 09/19/20 03:15 Urine Creatinine 61.0 mg/dL (0.1-20.0) H 09/18/20 12:00 Urine Sodium 62 mmol/L 09/18/20 12:00 Random Vancomycin 12.7 ug/mL (0-40.0) 09/19/20 03:30 Valproic Acid 17.8 ug/mL (50-100) L 10/03/20 08:12 Heparin-induced Plt Ab Weak positive (Negative) H 09/22/20 15:12 UF Heparin High Dose 0 % Release 09/22/20 15:12 CORAZON UFH Low Dose 0.1 0 % Release 09/22/20 15:12 COR[place]ON UFH Low Dose 0.5 0 % Release 09/22/20 15:12 Lymph Enumerat CD4/CD8 0.70 (0.86-5.00) L 09/19/20 13:35 % CD3 Cells 79 % (57-85) 09/19/20 13:35 Absolute CD3 Count 175 cells/uL (840-3060) L 09/19/20 13:35 % CD4 Cells 31 % (30-61) 09/19/20 13:35 Absolute CD4 Count 70 cells/uL (490-1740) L 09/19/20 13:35 % CD8 Cells 45 % (12-42) H 09/19/20 13:35 Absolute CD8 Count 101 cells/uL (180-1170) L 09/19/20 13:35 % CD19 Cells 12 % (6-29) 09/19/20 13:35 Absolute CD19 Count 26 cells/uL (110-660) L 09/19/20 13:35 Coronavirus (PCR) Positive (Negative) A 10/06/20 Unknown Hepatitis A IgM Ab Non-reactive (NonReactive) 09/20/20 17:10 Hep Bs Antigen Non-reactive (Negative) 09/20/20 17:10 Hep B Core IgM Ab Non-reactive (NonReactive) 09/20/20 17:10 Hepatitis C Antibody Non-reactive (NonReactive) 09/20/20 17:10 HIV-1 RNA PCR copies/ml 67 Copies/mL H 09/19/20 13:35 HIV-1 RNA (PCR) log 1.83 Log cps/mL H 09/19/20 13:35 Gardner/IV: Voiding Method Indwelling Catheter Active Medications - Current Medications Current Medications: Generic Name Dose Route Start Last Admin Trade Name Freq PRN Reason Stop Dose Admin Acetaminophen 650 mg 09/17/20 13:52 09/30/20 21:12 Acetaminophen 325 Mg Tab PO 650 mg Q4H PRN Administration Pain MILD(1-3)/Fever >100.5/ANGEL Albuterol 2.5 mg 09/17/20 13:52 09/17/20 20:47 Albuterol 2.5 Mg/3 Ml Nebu IH 2.5 mg Q4HRT PRN Administration Shortness Of Breath Amiodarone HCl 200 mg 10/01/20 22:00 10/08/20 21:10 Amiodarone 200 Mg Tab PO 200 mg BID EDIE Administration Lipase/Protease/Amylase 1 each 09/20/20 13:10 Lipase 10,500/Protease 25,000/Amylase 43,750 (Units) Dr Patrick FEEDTUBE PRN PRN For Clogged Feeding Tube Apixaban 5 mg 10/05/20 22:00 10/08/20 21:09 Apixaban 5 Mg Tab PO 5 mg Q12HR EDIE Administration Ascorbic Acid 500 mg 09/20/20 22:00 10/08/20 21:10 Ascorbic Acid 500 Mg Tab PO 500 mg BID EDIE Administration Cholecalciferol 1,000 unit 09/21/20 10:00 10/08/20 09:10 Cholecalciferol (Vit D3) 1000 Unit (25 Mcg) Tab PO 1,000 unit QDAY [facility] Administration Docusate Sodium 100 mg 10/05/20 11:00 10/08/20 21:11 Docusate Sodium 100 Mg/10 Ml Oral Liqd PO 100 mg BID EDIE Administration Emtricitabine 200 mg 09/30/20 11:00 10/08/20 11:45 Emtricitabine 200 Mg Cap PO 200 mg Q48H EDIE Administration Famotidine 20 mg 09/24/20 10:00 10/08/20 09:11 Famotidine 20 Mg Tab PO 20 mg DAILY [facility] Administration Haloperidol Lactate 5 mg 10/01/20 11:34 10/04/20 13:32 Haloperidol Lactate 5 Mg/1 Ml Inj IM 5 mg Q6H PRN Administration Agitation Heparin Sodium (Porcine) 3,000 unit 09/20/20 10:06 Heparin 10,000 Units/10 Ml Vial IV VIRGIL PRN hemodialysis Sodium Chloride 100 mls @ 999 mls/hr 09/20/20 10:06 Nacl 0.9% IV VIRGIL PRN Hypotension Metoprolol Tartrate 5 mg 09/19/20 19:06 09/24/20 10:59 Metoprolol Tartrate 5 Mg/5 Ml Inj IV 5 mg Q8HR PRN Administration HR > 135 Minute Metoprolol Tartrate 12.5 mg 10/05/20 14:00 10/08/20 20:27 Metoprolol Tartrate 25 Mg Tab PO 12.5 mg TID EDIE Administration Midodrine 10 mg 10/07/20 08:00 10/08/20 16:47 Midodrine 5 Mg Tab PO Not Given TID@0800,1200,1600 [facility] Ondansetron HCl 4 mg 09/17/20 13:52 Ondansetron 4 Mg/2 Ml Inj IV Q8H PRN Nausea And Vomiting Quetiapine Fumarate 12.5 mg 10/03/20 22:00 10/08/20 21:10 Quetiapine 25 Mg Tab PO 12.5 mg QHS EDIE Administration Quetiapine Fumarate 12.5 mg 10/04/20 10:00 10/08/20 09:08 Quetiapine 25 Mg Tab PO 12.5 mg QAM EDIE Administration Simple Syrup 15 ml 09/20/20 13:10 Simple Syrup 15 Ml FEEDTUBE PRN PRN Hypoglycemia Simple Syrup 30 ml 09/20/20 13:10 Simple Syrup 15 Ml FEEDTUBE PRN PRN Hypoglycemia Sodium Bicarbonate 325 mg 09/20/20 13:10 Sodium Bicarbonate 325 Mg Tab FEEDTUBE PRN PRN For Clogged Feeding Tube Sodium Chloride 10 ml 09/17/20 22:00 10/08/20 22:33 Sodium Chloride 0.9% 10 Ml Flush Syringe IV 10 ml BID EDIE Administration Sodium Chloride 10 ml 09/17/20 13:52 09/24/20 09:15 Sodium Chloride 0.9% 10 Ml Flush Syringe IV 10 ml PRN PRN Administration LINE FLUSH Tamsulosin HCl 0.4 mg 10/07/20 13:00 10/08/20 09:08 Tamsulosin 0.4 Mg Cap PO 0.4 mg QDAY EDIE Administration Tenofovir Disoproxil Fumarate 300 mg 09/30/20 11:00 10/08/20 11:45 Tenofovir 300 Mg Tab PO 300 mg Q48H EDIE Administration Valproic Acid 250 mg 10/03/20 22:00 10/08/20 21:13 Valproic Acid 250 Mg Cap PO 250 mg BID EDIE Administration Zinc Sulfate 220 mg 09/21/20 10:00 10/08/20 09:12 Zinc Sulfate 220 Mg Cap PO 220 mg QDAY EDIE Administration Nutrition/Malnutrition Assess - Dietary Evaluation Nutrition/Malnutrition Findings: Nutrition Notes Start: 09/18/20 11:30 Freq: Status: Active Protocol: Document 10/08/20 11:36 AL (Rec: 10/08/20 11:47 AL [id number]) Co-Sign 10/08/20 11:36 LP Nutrition Notes Initial or Follow up Reassessment Current Diagnosis Acute Kidney Injury,Sepsis, Hypertension,Heart Failure, Respiratory Failure Other Pertinent Diagnosis COVID-19 (+), AMS, UTI, afib with RVR, HIV (+) Current Diet Pureed Renal Labs/Tests BUN 28 Cr 2.2 Pertinent Medications Colace Height 6 ft 1 in Weight 88.6 kg [place] Body Weight (kg) 83.63 BMI 25.7 Weight Status Overweight Subjective/Other Information F/U for intakes and ONS tolerance. Pt tolerateing pureed diet at about 60% and ONS at 50% (1 shake). Percent of energy/protein needs met: 83%/90% Burn Absent Trauma Absent GI Symptoms Constipation Current % PO Good (75-100%) Minimum of two criteria No Reduced Flat Polisher Strength Measurably Reduced (severe) #2 Nutrition Diagnosis Inadequate oral intake As Evidenced by Signs and Symptoms pt meeting 83%/90% of estimated energy/protein needs PO Diagnosis Progress(for reassessment Improved documentation) Is patient on ventilator? No Is Patient Ambulatory and/or Out of Bed No REE-([facility]-confined to bed) 2044.657 Calculation Used for Recommendations [facility] Additional Notes Pro needs: 73 - 88g (1 - 1.2 g /kg 73kg) Fluid needs 1-1.5L/day Nutrition Intervention Change Diet Order: Continue pureed renal diet Add Supplement/Snack (indicate name/kcal Nepro BID /protein ) Provides kCal: 850 Provides Protein (gm) 38 Goal #1 Meet at least 75% of estimated kcal and protein needs via PO Goal #2 Weight maintenance/weight gain Anticipated Discharge Needs: Pureed Renal Diet Follow-Up By: 10/13/20 Additional Comments F/U for stable intakes and ONS tolerance.
[2020-10-09] MEDS: AMIODARONE 200 MG TAB PO SCH ×2 (09:07→22:03)
[2020-10-09] MEDS: FAMOTIDINE 20 MG TAB PO SCH (09:07)
[2020-10-09] MEDS: ZINC SULFATE 220 MG CAP PO SCH (09:07)
[2020-10-09] MEDS: DOCUSATE SODIUM 100 MG/10 ML ORAL LIQD PO SCH ×3 (09:07→22:09)
[2020-10-09] MEDS: TAMSULOSIN 0.4 MG CAP PO SCH (09:07)
[2020-10-09] MEDS: ASCORBIC ACID 500 MG TAB PO SCH ×2 (09:07→22:10)
[2020-10-09] MEDS: APIXABAN 5 MG TAB PO SCH ×2 (09:07→22:03)
[2020-10-09] MEDS: VALPROIC ACID 250 MG CAP PO SCH ×2 (09:08→22:11)
[2020-10-09] MEDS: DOLUTEGRAVIR 50 MG TAB PO SCH (09:08)
[2020-10-09] MEDS: QUEtiapine 25 MG TAB PO SCH ×2 (09:38→22:03)
[2020-10-09] MEDS: MIDODRINE 5 MG TAB PO SCH ×3 (09:38→17:20)
[2020-10-09] MEDS: METOPROLOL TARTRATE 25 MG TAB PO SCH ×3 (09:39→22:10)
[2020-10-09] MEDS: CHOLECALCIFEROL (VIT D3) 1000 UNIT (25 mcg) TAB PO SCH (09:41)
--- NOTE | 2020-10-09 11:02 | Progress Note ---
Subjective Date of service: 10/09/20 Principal diagnosis: Sepsis, AF with RVR Subjective Comment: The patient was seen today, he is calm and cooperative. He is pleasant. He's a/o x 2. He says he feels "fantastic." The patient says he "slept well." He denies SI/HI or hallucinations of any kind. He says "I'm so ready to go home. I've been here way too long." REVIEW OF SYSTEMS Constitutional: Negative for weight loss ENT: Negative for stridor Respiratory: Negative for cough or hemoptysis All other systems reviewed and are negative MENTAL STATUS EXAMINATION General Appearance and Behavior: Age appropriate, good hygiene, wearing appropriate clothes, good eye contact, cooperative polite with questioning. Cooperation: Participating/engaged Psychomotor Behavior: unremarkable and within normal limits Mood: "fantastic" Affect and affective range: congruent with mood Thought Process: Fluent/Logical Thought Content: Within reality Speech: Normal volume, Regular rate and rhythm Intellectual Functioning: Average Suicidal Ideation: Denies SI Homicidal Ideation: Denies HI Hallucinations: Denies Delusions: Note elicited Impulse Control: Unimpaired Insight and Judgment: Limited insight and judgment, Memory: Limited Attention: Normal Orientation: Alert, oriented x 2 Assessment (1) Delirium Current Visit: Yes Status: Acute Treatment Plan Agree with currently prescribed meds Sitter: Defer to primary Medical: Per primary Disposition: Do not recommend acute psychiatric inpatient The bell attendant to give him resources Will follow for med management and psych progress Case staffed with Dr. Ulloa Medications and Allergies Allergies Allergy/AdvReac Type Severity Reaction Status Date / Time heparin AdvReac thrombocyto Verified 09/29/20 16:33 penia Home Medications Medication Instructions Recorded Confirmed Last Taken Type AtorvaSTATin [Lipitor] 20 mg PO QHS 09/18/20 09/18/20 Unknown History Dolutegravir [Tivicay] 50 mg PO DAILY 09/18/20 09/18/20 Unknown History Emtricitabine/Tenofov Alafenam 1 tab PO DAILY 09/18/20 09/18/20 Unknown History [Descovy 200-25 mg (Nf)] allopurinoL [Zyloprim] 300 mg PO QDAY 09/18/20 09/18/20 Unknown History Amiodarone [Cordarone 200 MG TAB] 200 mg PO DAILY #60 tablet 10/01/20 Unknown R x Apixaban [Eliquis] 2.5 mg PO Q12HR #60 tablet 10/01/20 Unknown Rx Ascorbic Acid [Vitamin C] 500 mg PO BID #60 tablet 10/01/20 Unknown Rx Cholecalciferol Vit D3 [Vitamin D3 1,000 unit PO QDAY #30 tablet 10/01/20 Unknown Rx 1,000 UNIT TAB] Famotidine [Pepcid] 20 mg PO DAILY #30 tablet 10/01/20 Unknown Rx Midodrine [Proamatine] 5 mg PO TID@0800,1200,1600 #90 10/01/20 Unknown Rx tablet QUEtiapine [SEROquel] 25 mg PO BID #30 tablet 10/01/20 Unknown Rx Zinc Sulfate 220 mg PO QDAY #30 capsule 10/01/20 Unknown Rx carvediloL [Coreg] 3.125 mg PO BID #60 tablet 10/01/20 Unknown Rx haloperidoL [Haldol] 2 mg PO Q8H PRN #30 tablet 10/01/20 Unknown Rx Active Meds: Active Medications Acetaminophen (Acetaminophen 325 Mg Tab) 650 mg PO Q4H PRN PRN Reason: Pain MILD(1-3)/Fever >100.5/ANGEL Last Admin: 09/30/20 21:12 Dose: 650 mg Documented by: Albuterol (Albuterol 2.5 Mg/3 Ml Nebu) 2.5 mg IH Q4HRT PRN PRN Reason: Shortness Of Breath Last Admin: 09/17/20 20:47 Dose: 2.5 mg Documented by: Amiodarone HCl (Amiodarone 200 Mg Tab) 200 mg PO BID [facility] Last Admin: 10/09/20 09:07 Dose: 200 mg Documented by: Lipase/Protease/Amylase (Lipase 10,500/Protease 25,000/Amylase 43,750 (Units) Dr Patrick) 1 each FEEDTUBE PRN PRN PRN Reason: For Clogged Feeding Tube Apixaban (Apixaban 5 Mg Tab) 5 mg PO Q12HR [facility] Last Admin: 10/09/20 09:07 Dose: 5 mg Documented by: Ascorbic Acid (Ascorbic Acid 500 Mg Tab) 500 mg PO BID [facility] Last Admin: 10/09/20 09:07 Dose: 500 mg Documented by: Cholecalciferol (Cholecalciferol (Vit D3) 1000 Unit (25 Mcg) Tab) 1,000 unit PO QDAY [facility] Last Admin: 10/09/20 09:41 Dose: 1,000 unit Documented by: Docusate Sodium (Docusate Sodium 100 Mg/10 Ml Oral Liqd) 100 mg PO BID [facility] Last Admin: 10/09/20 09:07 Dose: 100 mg Documented by: Emtricitabine (Emtricitabine 200 Mg Cap) 200 mg PO Q48H [facility] Last Admin: 10/08/20 11:45 Dose: 200 mg Documented by: Famotidine (Famotidine 20 Mg Tab) 20 mg PO DAILY [facility] Last Admin: 10/09/20 09:07 Dose: 20 mg Documented by: Haloperidol Lactate (Haloperidol Lactate 5 Mg/1 Ml Inj) 5 mg IM Q6H PRN PRN Reason: Agitation Last Admin: 10/04/20 13:32 Dose: 5 mg Documented by: Heparin Sodium (Porcine) (Heparin 10,000 Units/10 Ml Vial) 3,000 unit IV VIRGIL PRN PRN Reason: hemodialysis Sodium Chloride (Nacl 0.9%) 100 mls @ 999 mls/hr IV VIRGIL PRN PRN Reason: Hypotension Metoprolol Tartrate (Metoprolol Tartrate 5 Mg/5 Ml Inj) 5 mg IV Q8HR PRN PRN Reason: HR > 135 Minute Last Admin: 09/24/20 10:59 Dose: 5 mg Documented by: Metoprolol Tartrate (Metoprolol Tartrate 25 Mg Tab) 12.5 mg PO TID [facility] Last Admin: 10/09/20 09:39 Dose: 12.5 mg Documented by: Midodrine (Midodrine 5 Mg Tab) 10 mg PO TID@0800,1200,1600 [facility] Last Admin: 10/09/20 09:38 Dose: 10 mg Documented by: Ondansetron HCl (Ondansetron 4 Mg/2 Ml Inj) 4 mg IV Q8H PRN PRN Reason: Nausea And Vomiting Quetiapine Fumarate (Quetiapine 25 Mg Tab) 12.5 mg PO QHS [facility] Last Admin: 10/08/20 21:10 Dose: 12.5 mg Documented by: Quetiapine Fumarate (Quetiapine 25 Mg Tab) 12.5 mg PO QAM [facility] Last Admin: 10/09/20 09:38 Dose: 12.5 mg Documented by: Simple Syrup (Simple Syrup 15 Ml) 15 ml FEEDTUBE PRN PRN PRN Reason: Hypoglycemia Simple Syrup (Simple Syrup 15 Ml) 30 ml FEEDTUBE PRN PRN PRN Reason: Hypoglycemia Sodium Bicarbonate (Sodium Bicarbonate 325 Mg Tab) 325 mg FEEDTUBE PRN PRN PRN Reason: For Clogged Feeding Tube Sodium Chloride (Sodium Chloride 0.9% 10 Ml Flush Syringe) 10 ml IV BID [facility] Last Admin: 10/09/20 09:07 Dose: 10 ml Documented by: Sodium Chloride (Sodium Chloride 0.9% 10 Ml Flush Syringe) 10 ml IV PRN PRN PRN Reason: LINE FLUSH Last Admin: 09/24/20 09:15 Dose: 10 ml Documented by: Tamsulosin HCl (Tamsulosin 0.4 Mg Cap) 0.4 mg PO QDAY [facility] Last Admin: 10/09/20 09:07 Dose: 0.4 mg Documented by: Tenofovir Disoproxil Fumarate (Tenofovir 300 Mg Tab) 300 mg PO Q48H [facility] Last Admin: 10/08/20 11:45 Dose: 300 mg Documented by: Valproic Acid (Valproic Acid 250 Mg Cap) 250 mg PO BID [facility] Last Admin: 10/09/20 09:08 Dose: 250 mg Documented by: Zinc Sulfate (Zinc Sulfate 220 Mg Cap) 220 mg PO QDAY [facility] Last Admin: 10/09/20 09:07 Dose: 220 mg Documented by: Results - Results Labs/Vitals: Laboratory Last Values WBC 6.1 K/mm3 (4.5-11.0) 10/07/20 06:45 RBC 2.38 M/mm3 (3.65-5.03) L 10/07/20 06:45 Hgb 7.9 gm/dl (11.8-15.2) L 10/07/20 06:45 Hct 23.2 % (35.5-45.6) L 10/07/20 06:45 MCV 98 fl (84-94) H 10/07/20 06:45 MCH 33 pg (28-32) H 10/07/20 06:45 MCHC 34 % (32-34) 10/07/20 06:45 RDW 15.4 % (13.2-15.2) H 10/07/20 06:45 Plt Count 203 K/mm3 (140-440) 10/07/20 06:45 Lymph % (Auto) 4.3 % (13.4-35.0) L 09/27/20 04:00 Ray % (Auto) 6.0 % (0.0-7.3) 09/27/20 04:00 Eos % (Auto) 0.1 % (0.0-4.3) 09/27/20 04:00 Baso % (Auto) 0.0 % (0.0-1.8) 09/27/20 04:00 Lymph # (Auto) 0.6 K/mm3 (1.2-5.4) L 09/27/20 04:00 Ray # (Auto) 0.9 K/mm3 (0.0-0.8) H 09/27/20 04:00 Eos # (Auto) 0.0 K/mm3 (0.0-0.4) 09/27/20 04:00 Baso # (Auto) 0.0 K/mm3 (0.0-0.1) 09/27/20 04:00 Add Manual Diff Complete 09/23/20 04:36 Total Counted 100 09/23/20 04:36 Seg Neutrophils % 89.6 % (40.0-70.0) H 09/27/20 04:00 Seg Neuts % (Manual) 91.0 % (40.0-70.0) H 09/23/20 04:36 Band Neutrophils % 2.0 % 09/23/20 04:36 Lymphocytes % (Manual) 2.0 % (13.4-35.0) L 09/23/20 04:36 Monocytes % (Manual) 5.0 % (0.0-7.3) 09/23/20 04:36 Nucleated RBC % Not Reportable 09/23/20 04:36 Seg Neutrophils # 13.1 K/mm3 (1.8-7.7) H 09/27/20 04:00 Seg Neutrophils # Man 12.9 K/mm3 (1.8-7.7) H 09/23/20 04:36 Band Neutrophils # 0.3 K/mm3 09/23/20 04:36 Abs Lymphs (Manual) 223 cells/uL (850-3900) L 09/19/20 13:35 Lymphocytes # (Manual) 0.3 K/mm3 (1.2-5.4) L 09/23/20 04:36 Abs React Lymphs (Man) 0.0 K/mm3 09/23/20 04:36 Monocytes # (Manual) 0.7 K/mm3 (0.0-0.8) 09/23/20 04:36 Eosinophils # (Manual) 0.0 K/mm3 (0.0-0.4) 09/23/20 04:36 Basophils # (Manual) 0.0 K/mm3 (0.0-0.1) 09/23/20 04:36 Metamyelocytes # 0.0 K/mm3 09/23/20 04:36 Myelocytes # 0.0 K/mm3 09/23/20 04:36 Promyelocytes # 0.0 K/mm3 09/23/20 04:36 Blast Cells # 0.0 K/mm3 09/23/20 04:36 WBC Morphology Not Reportable 09/23/20 04:36 Hypersegmented Neuts Not Reportable 09/23/20 04:36 Hyposegmented Neuts Not Reportable 09/23/20 04:36 Hypogranular Neuts Not Reportable 09/23/20 04:36 Smudge Cells Not Reportable 09/23/20 04:36 Toxic Granulation Not Reportable 09/23/20 04:36 Toxic Vacuolation Not Reportable 09/23/20 04:36 Dohle Bodies Not Reportable 09/23/20 04:36 Pelger-Huet Anomaly Not Reportable 09/23/20 04:36 Vinh Rods Not Reportable 09/23/20 04:36 Platelet Estimate Consistent w auto 09/23/20 04:36 Clumped Platelets Not Reportable 09/23/20 04:36 Plt Clumps, EDTA Not Reportable 09/23/20 04:36 Large Platelets Not Reportable 09/23/20 04:36 Giant Platelets Not Reportable 09/23/20 04:36 Platelet Satelliting Not Reportable 09/23/20 04:36 Plt Morphology Comment Not Reportable 09/23/20 04:36 RBC Morphology Not Reportable 09/23/20 04:36 Dimorphic RBCs Not Reportable 09/23/20 04:36 Polychromasia Not Reportable 09/23/20 04:36 Hypochromasia Not Reportable 09/23/20 04:36 Poikilocytosis Not Reportable 09/23/20 04:36 Anisocytosis 1+ 09/23/20 04:36 Microcytosis Not Reportable 09/23/20 04:36 Macrocytosis Not Reportable 09/23/20 04:36 Spherocytes Not Reportable 09/23/20 04:36 Pappenheimer Bodies Not Reportable 09/23/20 04:36 Sickle Cells Not Reportable 09/23/20 04:36 Target Cells Few 09/23/20 04:36 Tear Drop Cells Not Reportable 09/23/20 04:36 Ovalocytes Not Reportable 09/23/20 04:36 Helmet Cells Not Reportable 09/23/20 04:36 [place] Bodies Not Reportable 09/23/20 04:36 [place] Rings Not Reportable 09/23/20 04:36 [place] Cells Not Reportable 09/23/20 04:36 Bite Cells Not Reportable 09/23/20 04:36 Crenated Cell Not Reportable 09/23/20 04:36 Elliptocytes Not Reportable 09/23/20 04:36 Acanthocytes (Spur) Not Reportable 09/23/20 04:36 Rouleaux Not Reportable 09/23/20 04:36 Hemoglobin C Crystals Not Reportable 09/23/20 04:36 Schistocytes Not Reportable 09/23/20 04:36 Malaria parasites Not Reportable 09/23/20 04:36 Zachary Bodies Not Reportable 09/23/20 04:36 Hem Pathologist Commnt No 09/23/20 04:36 PT 15.7 Sec. (12.2-14.9) H 09/24/20 12:13 INR 1.27 (0.87-1.13) H 09/24/20 12:13 APTT 25.7 Sec. (24.2-36.6) 09/24/20 12:13 D-Dimer 1772.86 ng/mlDDU (0-234) H 09/24/20 05:00 Heparin Anti-Xa Level 0.10 U.I./ml (0.3-0.7) L 09/20/20 04:00 Heparin Anti-Xa, Unfract Negative (Negative) 09/22/20 15:12 ABG pH 7.508 (7.320-7.450) H 09/17/20 10:28 POC ABG pCO2 22.8 mmHg (32.0-48.0) L 09/17/20 10:28 POC ABG pO2 66.8 mmHg (83-108) L 09/17/20 10:28 POC ABG HCO3 17.7 09/17/20 10:28 ABG O2 Saturation 93.4 (0-100) 09/17/20 10:28 POC ABG Base Excess -3.5 09/17/20 10:28 ABG Hemoglobin 12.7 (12.0-17.5) 09/17/20 10:28 ABG Oxyhemoglobin 92.7 (94-98) L 09/17/20 10:28 ABG Methemoglobin 0.3 (0.0-1.5) 09/17/20 10:28 ABG Sodium 127.4 mmol/L (136.0-145.0) L 09/17/20 10:28 ABG Potassium 4.7 mmol/L (3.40-4.50) H 09/17/20 10:28 ABG Chloride 101.0 mmol/L (98-107) 09/17/20 10:28 ABG Glucose 121 mg/dL (65-95) H 09/17/20 10:28 Carboxyhemoglobin 0.4 (0.5-1.5) L 09/17/20 10:28 FiO2 % 21 09/17/20 10:28 Sodium 135 mmol/L (137-145) L 10/08/20 20:19 Potassium 3.9 mmol/L (3.6-5.0) 10/08/20 20:19 Chloride 101.6 mmol/L (98-107) 10/08/20 20:19 Carbon Dioxide 25 mmol/L (22-30) 10/08/20 20:19 Anion Gap 12 mmol/L 10/08/20 20:19 BUN 22 mg/dL (9-20) H 10/08/20 20:19 Creatinine 2.0 mg/dL (0.8-1.3) H 10/08/20 20:19 Estimated GFR 40 ml/min 10/08/20 20:19 BUN/Creatinine Ratio 11 % 10/08/20 20:19 Glucose 99 mg/dL (75-100) 10/08/20 20:19 POC Glucose 72 mg/dL (70-105) 09/30/20 11:45 Lactic Acid 1.00 mmol/L (0.7-2.0) 09/20/20 17:10 Calcium 8.5 mg/dL (8.4-10.2) 10/08/20 20:19 Phosphorus 2.90 mg/dL (2.5-4.5) 09/26/20 07:06 Magnesium 1.70 mg/dL (1.7-2.3) 09/26/20 07:06 Ferritin 1190.0 ng/mL (30.0-300.0) H 09/24/20 05:00 Total Bilirubin 0.80 mg/dL (0.1-1.2) 09/30/20 04:47 AST 14 units/L (5-40) 09/30/20 04:47 ALT 21 units/L (7-56) 09/30/20 04:47 Alkaline Phosphatase 81 units/L (35-129) 09/30/20 04:47 Lactate Dehydrogenase 276 units/L (91-180) H 09/24/20 05:00 Total Creatine Kinase 20 units/L (55-170) L 09/19/20 03:30 Troponin T < 0.010 ng/mL (0.00-0.029) 09/22/20 05:38 C-Reactive Protein 4.20 mg/dL (0.00-1.30) H 09/24/20 05:00 NT-Pro-B Natriuret Pep 99184 pg/mL (0-900) H 09/17/20 10:47 Serum Total Protein 5.5 g/dL (6.1-8.1) L 09/30/20 04:47 Total Protein 5.9 g/dL (6.3-8.2) L 09/30/20 04:47 Albumin 2.1 g/dL (3.8-4.8) L 09/30/20 04:47 Albumin 2.2 g/dL (3.9-5) L 09/30/20 04:47 Albumin/Globulin Ratio 0.6 % 09/30/20 04:47 Qruny-6-Nmcltdmgc 0.3 g/dL (0.2-0.3) 09/30/20 04:47 Avmii-3-Bctirudhh 0.7 g/dL (0.5-0.9) 09/30/20 04:47 Beta Globulins 0.3 g/dL (0.2-0.5) 09/30/20 04:47 Gamma Globulins 1.7 g/dL (0.8-1.7) 09/30/20 04:47 Abnorm Protein Band 1 see below 09/30/20 04:47 PEP Interpretation see below 09/30/20 04:47 Triglycerides 137 mg/dL (2-149) 09/17/20 13:54 Cholesterol 48 mg/dL (50-199) L 09/17/20 13:54 LDL Cholesterol Direct 4 mg/dL (50-130) L 09/17/20 13:54 HDL Cholesterol 9 mg/dL (40-59) L 09/17/20 13:54 Cholesterol/HDL Ratio 5.33 % 09/17/20 13:54 Free PSA See scanned result 09/17/20 17:35 % Free PSA Calc See scanned result 09/17/20 17:35 Total PSA See scanned result 09/17/20 17:35 Serotonin Release Assay See scanned result 09/22/20 15:12 Procalcitonin 2.10 ng/mL (<0.15) 09/25/20 06:40 PTH Intact 161.4 pg/mL (15-65) H 09/19/20 03:30 Arterial Blood Glucose 121 mg/dL (65-95) H 09/17/20 10:28 Arterial Blood Ionized Calcium 5.0 mg/dL (4.6-5.3) 09/17/20 10:28 Urine Color Yellow (Yellow) 09/18/20 12:00 Urine Turbidity Cloudy (Clear) 09/18/20 12:00 Urine pH 5.0 (5.0-7.0) 09/18/20 12:00 Ur Specific [place] 1.009 (1.003-1.030) 09/18/20 12:00 Urine Protein 30 mg/dl mg/dL (Negative) 09/18/20 12:00 Urine Glucose (UA) Neg mg/dL (Negative) 09/18/20 12:00 Urine Ketones Neg mg/dL (Negative) 09/18/20 12:00 Urine Blood Sm (Negative) 09/18/20 12:00 Urine Nitrite Neg (Negative) 09/18/20 12:00 Urine Bilirubin Neg (Negative) 09/18/20 12:00 Urine Urobilinogen < 2.0 mg/dL (<2.0) 09/18/20 12:00 Ur Leukocyte Esterase Mod (Negative) 09/18/20 12:00 Urine WBC (Auto) 71.0 /HPF (0.0-6.0) H 09/18/20 12:00 Urine RBC (Auto) 2.0 /HPF (0.0-6.0) 09/18/20 12:00 U Epithel Cells (Auto) 1.0 /HPF (0-13.0) 09/18/20 12:00 Urine Bacteria (Auto) 4+ /HPF (Negative) 09/18/20 12:00 Urine WBC Clumps 2+ /HPF 09/18/20 12:00 Hyaline Casts 3 /LPF 09/18/20 12:00 Granular Casts 3 /LPF 09/18/20 12:00 Urine Mucus Few /HPF 09/18/20 12:00 Urine Eosinophils None seen (None Seen) 09/19/20 03:15 Urine Creatinine 61.0 mg/dL (0.1-20.0) H 09/18/20 12:00 Urine Sodium 62 mmol/L 09/18/20 12:00 Random Vancomycin 12.7 ug/mL (0-40.0) 09/19/20 03:30 Valproic Acid 17.8 ug/mL (50-100) L 10/03/20 08:12 Heparin-induced Plt Ab Weak positive (Negative) H 09/22/20 15:12 UF Heparin High Dose 0 % Release 09/22/20 15:12 COR[place]ON UFH Low Dose 0.1 0 % Release 09/22/20 15:12 [place] UFH Low Dose 0.5 0 % Release 09/22/20 15:12 Lymph Enumerat CD4/CD8 0.70 (0.86-5.00) L 09/19/20 13:35 % CD3 Cells 79 % (57-85) 09/19/20 13:35 Absolute CD3 Count 175 cells/uL (840-3060) L 09/19/20 13:35 % CD4 Cells 31 % (30-61) 09/19/20 13:35 Absolute CD4 Count 70 cells/uL (490-1740) L 09/19/20 13:35 % CD8 Cells 45 % (12-42) H 09/19/20 13:35 Absolute CD8 Count 101 cells/uL (180-1170) L 09/19/20 13:35 % CD19 Cells 12 % (6-29) 09/19/20 13:35 Absolute CD19 Count 26 cells/uL (110-660) L 09/19/20 13:35 Coronavirus (PCR) Positive (Negative) A 10/06/20 Unknown Hepatitis A IgM Ab Non-reactive (NonReactive) 09/20/20 17:10 Hep Bs Antigen Non-reactive (Negative) 09/20/20 17:10 Hep B Core IgM Ab Non-reactive (NonReactive) 09/20/20 17:10 Hepatitis C Antibody Non-reactive (NonReactive) 09/20/20 17:10 HIV-1 RNA PCR copies/ml 67 Copies/mL H 09/19/20 13:35 HIV-1 RNA (PCR) log 1.83 Log cps/mL H 09/19/20 13:35 Last Vital Signs Temp 98.5 F 10/09/20 05:25 Pulse 97 H 10/09/20 05:25 Resp 18 10/09/20 05:25 BP 111/73 10/09/20 05:25 Pulse Ox 98 10/09/20 05:25
--- NOTE | 2020-10-09 12:19 | Progress Note ---
Assessment and Plan Acute hypoxemic respiratory failure. Atrial fibrillation with rapid ventricular response. Gram negative bacteremia Acute congestive heart failure exacerbation. Acute on chronic kidney injury. Anemia that is microcytic. Coagulopathy appears to be acquired. Respiratory alkalosis. Mild metabolic acidosis. Possible severe sepsis with shock due to a urinary tract infection. Urinary tract infection (i do feel that despite his CHF history he is septic now and with relative IVVD and will benefit from gentle hydration acutely - advance diet per REFRACTIVE SURGEON - no new issues today, continue care as below; - continue to wean supplemental oxygen for target O2 sat's > 92% acutely - Aspiration precautions - prn bronchodilators with pulmonary hygiene per RT - continue accuchecks with glycemic control per SSI for target blood glucose of < 180 mg/dL; avoid hypoglycemia - avoid nephrotoxins, renally dose all medications - continue to avoid benzodiazepine's, reduce the possibility of delirium - prn analgesia per pain score - Maintenance of sleep-wake cycle, avoid delirium - G.I. & VTE prophylaxis - PT/OT/ROM exercises - continue mobility protocols for pressure ulcer prophylaxis - Monitor hemodynamics closely - continue other care per attending / other consultants - discharge planning ongoing concurrently COVID SPECIFIC INTERVENTIONS - Remdesivir as per ID/Pulmonary developed protocols (not given due to LOLI) - systemic steroids for severe COVID-19 infection (s/p Decadron) - follow repeat COVID tests results - zinc and vitamin C supplementation - Monitor inflammatory markers per facility protocol - ferritin, Ddimer, CRP - therapeutic anticoagulation per system Protocol based on d-dimer and clinical considerations - Continue contact and airborne isolation .... Re-evaluate in am & prn Subjective Date of service: 10/09/20 Principal diagnosis: Acute Hypoxemic Resp Failure; COVID-19 infxn; Septic Shock; A-Fib with RVR Interval history: Patient is seen today for: Acute hypoxemic respiratory failure; A-fib with RVR; AE-CHF; LOLI on CKD; Severe sepsis with shock; UTI Seen and examined at bedside; 24hour events reviewed; nursing and respiratory care staff consulted; no adverse overnight events reported to me; resting peacefully in bed; coherent; denies chest pains or SOB Objective Vital Signs - 12hr 10/09/20 10/09/20 10/09/20 00:37 05:25 11:31 Temperature 98.6 F 98.5 F Pulse Rate 94 H 97 H Respiratory 16 18 Rate Blood Pressure 93/65 111/73 O2 Sat by Pulse 96 98 98 Oximetry 10/09/20 11:43 Temperature Pulse Rate 59 L Respiratory Rate Blood Pressure 91/61 O2 Sat by Pulse 96 Oximetry Constitutional: no acute distress, alert, other (elderly male without increased respiratory effort at rest) Eyes: non-icteric ENT: oropharynx moist Neck: supple, no lymphadenopathy, no JVD Effort: normal Ascultation: Bilateral: clear Percussion: Bilateral: not dull Cardiovascular: irregular rhythm Gastrointestinal: normoactive bowel sounds, soft, non-tender, non-distended Integumentary: normal Extremities: no cyanosis, no edema, pulses normal, no ischemia or petechiae Neurologic: non-focal exam (grossly), pupils equal and round, CN II-XII normal, motor strength normal and Psychiatric: mood appropriate, affect normal CBC and BMP: 10/07/20 06:45 10/10/20 06:57 ABG, PT/INR, D-dimer: ABG ABG pH 7.508 (7.320-7.450) H 09/17/20 10:28 POC ABG pCO2 22.8 mmHg (32.0-48.0) L 09/17/20 10:28 POC ABG pO2 66.8 mmHg (83-108) L 09/17/20 10:28 POC ABG HCO3 17.7 09/17/20 10:28 ABG O2 Saturation 93.4 (0-100) 09/17/20 10:28 PT/INR, D-dimer PT 15.7 Sec. (12.2-14.9) H 09/24/20 12:13 INR 1.27 (0.87-1.13) H 09/24/20 12:13 D-Dimer 1772.86 ng/mlDDU (0-234) H 09/24/20 05:00 Abnormal lab findings: Abnormal Labs 09/17/20 09/17/20 09/17/20 10:28 10:47 10:47 WBC 11.1 H RBC 3.44 L Hgb 11.2 L Hct 32.8 L MCV 95 H MCH MCHC RDW Plt Count Lymph % (Auto) [place] % (Auto) Lymph # (Auto) [place] # (Auto) Seg Neutrophils % Seg Neuts % (Manual) Lymphocytes % (Manual) 4.0 L Monocytes % (Manual) Nucleated RBC % Seg Neutrophils # Seg Neutrophils # Man 10.7 H Abs Lymphs (Manual) Lymphocytes # (Manual) 0.4 L PT 32.9 H INR 3.16 H APTT 51.1 H D-Dimer Heparin Anti-Xa Level ABG pH 7.508 H POC ABG pCO2 22.8 L POC ABG pO2 66.8 L ABG Oxyhemoglobin 92.7 L ABG Sodium 127.4 L ABG Potassium 4.7 H ABG Glucose 121 H Carboxyhemoglobin 0.4 L Sodium Potassium Chloride Carbon Dioxide BUN Creatinine Glucose POC Glucose Calcium Phosphorus Ferritin Total Bilirubin AST ALT Alkaline Phosphatase Lactate Dehydrogenase Total Creatine Kinase Troponin T C-Reactive Protein NT-Pro-B Natriuret Pep Serum Total Protein Total Protein Albumin Cholesterol LDL Cholesterol Direct HDL Cholesterol PTH Intact Arterial Blood Glucose 121 H Urine WBC (Auto) Urine Creatinine Valproic Acid Heparin-induced Plt Ab Lymph Enumerat CD4/CD8 Absolute CD3 Count Absolute CD4 Count % CD8 Cells Absolute CD8 Count Absolute CD19 Count Coronavirus (PCR) HIV-1 RNA PCR copies/ml HIV-1 RNA (PCR) log 09/17/20 09/17/20 09/17/20 10:47 10:47 13:54 WBC RBC Hgb Hct MCV MCH MCHC RDW Plt Count Lymph % (Auto) [place] % (Auto) Lymph # (Auto) [place] # (Auto) Seg Neutrophils % Seg Neuts % (Manual) Lymphocytes % (Manual) Monocytes % (Manual) Nucleated RBC % Seg Neutrophils # Seg Neutrophils # Man Abs Lymphs (Manual) Lymphocytes # (Manual) PT INR APTT D-Dimer Heparin Anti-Xa Level ABG pH POC ABG pCO2 POC ABG pO2 ABG Oxyhemoglobin ABG Sodium ABG Potassium ABG Glucose Carboxyhemoglobin Sodium 125 L Potassium Chloride 95.3 L Carbon Dioxide 17 L BUN 64 H Creatinine 4.6 H D Glucose 104 H POC Glucose Calcium Phosphorus Ferritin Total Bilirubin AST 69 H ALT Alkaline Phosphatase Lactate Dehydrogenase Total Creatine Kinase Troponin T 0.061 H D 0.058 H C-Reactive Protein NT-Pro-B Natriuret Pep 69829 H Serum Total Protein Total Protein Albumin 1.9 L Cholesterol 48 L LDL Cholesterol Direct 4 L HDL Cholesterol 9 L PTH Intact Arterial Blood Glucose Urine WBC (Auto) Urine Creatinine Valproic Acid Heparin-induced Plt Ab Lymph Enumerat CD4/CD8 Absolute CD3 Count Absolute CD4 Count % CD8 Cells Absolute CD8 Count Absolute CD19 Count Coronavirus (PCR) HIV-1 RNA PCR copies/ml HIV-1 RNA (PCR) log 09/17/20 09/17/20 09/17/20 16:36 17:35 17:35 WBC RBC 3.25 L Hgb 10.7 L Hct 31.1 L MCV 96 H MCH 33 H MCHC RDW Plt Count Lymph % (Auto) [place] % (Auto) Lymph # (Auto) [place] # (Auto) Seg Neutrophils % Seg Neuts % (Manual) Lymphocytes % (Manual) Monocytes % (Manual) Nucleated RBC % Seg Neutrophils # Seg Neutrophils # Man Abs Lymphs (Manual) Lymphocytes # (Manual) PT 31.9 H INR 3.04 H APTT 50.9 H D-Dimer Heparin Anti-Xa Level ABG pH POC ABG pCO2 POC ABG pO2 ABG Oxyhemoglobin ABG Sodium ABG Potassium ABG Glucose Carboxyhemoglobin Sodium Potassium Chloride Carbon Dioxide BUN Creatinine Glucose POC Glucose Calcium Phosphorus Ferritin Total Bilirubin AST ALT Alkaline Phosphatase Lactate Dehydrogenase Total Creatine Kinase Troponin T 0.057 H C-Reactive Protein NT-Pro-B Natriuret Pep Serum Total Protein Total Protein Albumin Cholesterol LDL Cholesterol Direct HDL Cholesterol PTH Intact Arterial Blood Glucose Urine WBC (Auto) Urine Creatinine Valproic Acid Heparin-induced Plt Ab Lymph Enumerat CD4/CD8 Absolute CD3 Count Absolute CD4 Count % CD8 Cells Absolute CD8 Count Absolute CD19 Count Coronavirus (PCR) HIV-1 RNA PCR copies/ml HIV-1 RNA (PCR) log 09/17/20 09/18/20 09/18/20 17:35 03:19 03:19 WBC RBC 3.32 L Hgb 10.9 L Hct 32.0 L MCV 96 H MCH 33 H MCHC RDW Plt Count 138 L Lymph % (Auto) [place] % (Auto) Lymph # (Auto) [place] # (Auto) Seg Neutrophils % Seg Neuts % (Manual) 95.0 H Lymphocytes % (Manual) 3.0 L Monocytes % (Manual) Nucleated RBC % Seg Neutrophils # Seg Neutrophils # Man 8.1 H Abs Lymphs (Manual) Lymphocytes # (Manual) 0.3 L PT INR APTT D-Dimer Heparin Anti-Xa Level ABG pH POC ABG pCO2 POC ABG pO2 ABG Oxyhemoglobin ABG Sodium ABG Potassium ABG Glucose Carboxyhemoglobin Sodium Potassium Chloride Carbon Dioxide 16 L BUN 70 H Creatinine 4.6 H 4.7 H Glucose 104 H POC Glucose Calcium 8.2 L Phosphorus Ferritin Total Bilirubin 1.60 H AST 128 H ALT 67 H Alkaline Phosphatase Lactate Dehydrogenase Total Creatine Kinase Troponin T C-Reactive Protein NT-Pro-B Natriuret Pep Serum Total Protein Total Protein 5.2 L D Albumin 2.5 L Cholesterol LDL Cholesterol Direct HDL Cholesterol PTH Intact Arterial Blood Glucose Urine WBC (Auto) Urine Creatinine Valproic Acid Heparin-induced Plt Ab Lymph Enumerat CD4/CD8 Absolute CD3 Count Absolute CD4 Count % CD8 Cells Absolute CD8 Count Absolute CD19 Count Coronavirus (PCR) HIV-1 RNA PCR copies/ml HIV-1 RNA (PCR) log 09/18/20 09/18/20 09/18/20 09:39 12:00 12:00 WBC RBC Hgb Hct MCV MCH MCHC RDW Plt Count Lymph % (Auto) [place] % (Auto) Lymph # (Auto) [place] # (Auto) Seg Neutrophils % Seg Neuts % (Manual) Lymphocytes % (Manual) Monocytes % (Manual) Nucleated RBC % Seg Neutrophils # Seg Neutrophils # Man Abs Lymphs (Manual) Lymphocytes # (Manual) PT INR APTT D-Dimer Heparin Anti-Xa Level ABG pH POC ABG pCO2 POC ABG pO2 ABG Oxyhemoglobin ABG Sodium ABG Potassium ABG Glucose Carboxyhemoglobin Sodium Potassium Chloride Carbon Dioxide BUN Creatinine Glucose POC Glucose Calcium Phosphorus Ferritin Total Bilirubin AST ALT Alkaline Phosphatase Lactate Dehydrogenase Total Creatine Kinase Troponin T C-Reactive Protein NT-Pro-B Natriuret Pep Serum Total Protein Total Protein Albumin Cholesterol LDL Cholesterol Direct HDL Cholesterol PTH Intact Arterial Blood Glucose Urine WBC (Auto) 71.0 H Urine Creatinine 61.0 H Valproic Acid Heparin-induced Plt Ab Lymph Enumerat CD4/CD8 Absolute CD3 Count Absolute CD4 Count % CD8 Cells Absolute CD8 Count Absolute CD19 Count Coronavirus (PCR) Positive A HIV-1 RNA PCR copies/ml HIV-1 RNA (PCR) log 09/18/20 09/18/20 09/18/20 15:07 15:07 18:33 WBC RBC Hgb 10.7 L Hct 31.3 L MCV MCH MCHC RDW Plt Count Lymph % (Auto) [place] % (Auto) Lymph # (Auto) [place] # (Auto) Seg Neutrophils % Seg Neuts % (Manual) Lymphocytes % (Manual) Monocytes % (Manual) Nucleated RBC % Seg Neutrophils # Seg Neutrophils # Man Abs Lymphs (Manual) Lymphocytes # (Manual) PT 20.3 H INR 1.73 H APTT 40.8 H D-Dimer Heparin Anti-Xa Level 1.09 H ABG pH POC ABG pCO2 POC ABG pO2 ABG Oxyhemoglobin ABG Sodium ABG Potassium ABG Glucose Carboxyhemoglobin Sodium Potassium Chloride Carbon Dioxide BUN Creatinine Glucose POC Glucose Calcium Phosphorus Ferritin Total Bilirubin AST ALT Alkaline Phosphatase Lactate Dehydrogenase Total Creatine Kinase Troponin T C-Reactive Protein NT-Pro-B Natriuret Pep Serum Total Protein Total Protein Albumin Cholesterol LDL Cholesterol Direct HDL Cholesterol PTH Intact Arterial Blood Glucose Urine WBC (Auto) Urine Creatinine Valproic Acid Heparin-induced Plt Ab Lymph Enumerat CD4/CD8 Absolute CD3 Count Absolute CD4 Count % CD8 Cells Absolute CD8 Count Absolute CD19 Count Coronavirus (PCR) HIV-1 RNA PCR copies/ml HIV-1 RNA (PCR) log 09/19/20 09/19/20 09/19/20 03:30 03:30 03:30 WBC RBC 3.29 L Hgb 10.9 L Hct 30.9 L MCV MCH 33 H MCHC 35 H RDW Plt Count Lymph % (Auto) [place] % (Auto) Lymph # (Auto) [place] # (Auto) Seg Neutrophils % Seg Neuts % (Manual) Lymphocytes % (Manual) Monocytes % (Manual) Nucleated RBC % Seg Neutrophils # Seg Neutrophils # Man Abs Lymphs (Manual) Lymphocytes # (Manual) PT INR APTT D-Dimer Heparin Anti-Xa Level ABG pH POC ABG pCO2 POC ABG pO2 ABG Oxyhemoglobin ABG Sodium ABG Potassium ABG Glucose Carboxyhemoglobin Sodium 133 L Potassium Chloride Carbon Dioxide 17 L BUN 94 H Creatinine 5.0 H Glucose 120 H POC Glucose Calcium Phosphorus 6.30 H Ferritin Total Bilirubin 2.40 H AST 163 H ALT 109 H Alkaline Phosphatase 160 H Lactate Dehydrogenase Total Creatine Kinase 20 L Troponin T C-Reactive Protein NT-Pro-B Natriuret Pep Serum Total Protein Total Protein 6.2 L Albumin 2.0 L Cholesterol LDL Cholesterol Direct HDL Cholesterol PTH Intact 161.4 H Arterial Blood Glucose Urine WBC (Auto) Urine Creatinine Valproic Acid Heparin-induced Plt Ab Lymph Enumerat CD4/CD8 Absolute CD3 Count Absolute CD4 Count % CD8 Cells Absolute CD8 Count Absolute CD19 Count Coronavirus (PCR) HIV-1 RNA PCR copies/ml HIV-1 RNA (PCR) log 09/19/20 09/19/20 09/19/20 06:35 13:35 13:35 WBC RBC Hgb Hct MCV MCH MCHC RDW Plt Count Lymph % (Auto) [place] % (Auto) Lymph # (Auto) [place] # (Auto) Seg Neutrophils % Seg Neuts % (Manual) Lymphocytes % (Manual) Monocytes % (Manual) Nucleated RBC % Seg Neutrophils # Seg Neutrophils # Man Abs Lymphs (Manual) 223 L Lymphocytes # (Manual) PT INR APTT D-Dimer Heparin Anti-Xa Level ABG pH POC ABG pCO2 POC ABG pO2 ABG Oxyhemoglobin ABG Sodium ABG Potassium ABG Glucose Carboxyhemoglobin Sodium Potassium Chloride Carbon Dioxide BUN Creatinine Glucose POC Glucose 123 H Calcium Phosphorus Ferritin Total Bilirubin AST ALT Alkaline Phosphatase Lactate Dehydrogenase Total Creatine Kinase Troponin T C-Reactive Protein NT-Pro-B Natriuret Pep Serum Total Protein Total Protein Albumin Cholesterol LDL Cholesterol Direct HDL Cholesterol PTH Intact Arterial Blood Glucose Urine WBC (Auto) Urine Creatinine Valproic Acid Heparin-induced Plt Ab Lymph Enumerat CD4/CD8 0.70 L Absolute CD3 Count 175 L Absolute CD4 Count 70 L % CD8 Cells 45 H Absolute CD8 Count 101 L Absolute CD19 Count 26 L Coronavirus (PCR) HIV-1 RNA PCR copies/ml 67 H HIV-1 RNA (PCR) log 1.83 H 09/19/20 09/20/20 09/20/20 23:37 04:00 04:00 WBC RBC 3.43 L Hgb 11.1 L Hct 32.2 L MCV MCH MCHC RDW Plt Count 131 L Lymph % (Auto) [place] % (Auto) Lymph # (Auto) [place] # (Auto) Seg Neutrophils % Seg Neuts % (Manual) 88.0 H Lymphocytes % (Manual) 3.0 L Monocytes % (Manual) 9.0 H Nucleated RBC % Seg Neutrophils # Seg Neutrophils # Man 8.2 H Abs Lymphs (Manual) Lymphocytes # (Manual) 0.3 L PT INR APTT D-Dimer Heparin Anti-Xa Level 0.10 L ABG pH POC ABG pCO2 POC ABG pO2 ABG Oxyhemoglobin ABG Sodium ABG Potassium ABG Glucose Carboxyhemoglobin Sodium Potassium Chloride Carbon Dioxide BUN Creatinine Glucose POC Glucose 135 H Calcium Phosphorus Ferritin Total Bilirubin AST ALT Alkaline Phosphatase Lactate Dehydrogenase Total Creatine Kinase Troponin T C-Reactive Protein NT-Pro-B Natriuret Pep Serum Total Protein Total Protein Albumin Cholesterol LDL Cholesterol Direct HDL Cholesterol PTH Intact Arterial Blood Glucose Urine WBC (Auto) Urine Creatinine Valproic Acid Heparin-induced Plt Ab Lymph Enumerat CD4/CD8 Absolute CD3 Count Absolute CD4 Count % CD8 Cells Absolute CD8 Count Absolute CD19 Count Coronavirus (PCR) HIV-1 RNA PCR copies/ml HIV-1 RNA (PCR) log 09/20/20 09/20/20 09/20/20 04:00 05:37 11:20 WBC RBC Hgb Hct MCV MCH MCHC RDW Plt Count Lymph % (Auto) [place] % (Auto) Lymph # (Auto) [place] # (Auto) Seg Neutrophils % Seg Neuts % (Manual) Lymphocytes % (Manual) Monocytes % (Manual) Nucleated RBC % Seg Neutrophils # Seg Neutrophils # Man Abs Lymphs (Manual) Lymphocytes # (Manual) PT INR APTT D-Dimer Heparin Anti-Xa Level ABG pH POC ABG pCO2 POC ABG pO2 ABG Oxyhemoglobin ABG Sodium ABG Potassium ABG Glucose Carboxyhemoglobin Sodium Potassium Chloride Carbon Dioxide 16 L BUN 119 H Creatinine 6.2 H Glucose 136 H POC Glucose 137 H 108 H Calcium Phosphorus Ferritin Total Bilirubin AST ALT Alkaline Phosphatase Lactate Dehydrogenase Total Creatine Kinase Troponin T C-Reactive Protein NT-Pro-B Natriuret Pep Serum Total Protein Total Protein Albumin Cholesterol LDL Cholesterol Direct HDL Cholesterol PTH Intact Arterial Blood Glucose Urine WBC (Auto) Urine Creatinine Valproic Acid Heparin-induced Plt Ab Lymph Enumerat CD4/CD8 Absolute CD3 Count Absolute CD4 Count % CD8 Cells Absolute CD8 Count Absolute CD19 Count Coronavirus (PCR) HIV-1 RNA PCR copies/ml HIV-1 RNA (PCR) log 09/20/20 09/20/20 09/20/20 17:10 17:10 17:10 WBC RBC Hgb Hct MCV MCH MCHC RDW Plt Count Lymph % (Auto) [place] % (Auto) Lymph # (Auto) [place] # (Auto) Seg Neutrophils % Seg Neuts % (Manual) Lymphocytes % (Manual) Monocytes % (Manual) Nucleated RBC % Seg Neutrophils # Seg Neutrophils # Man Abs Lymphs (Manual) Lymphocytes # (Manual) PT INR APTT D-Dimer 4271.58 H Heparin Anti-Xa Level ABG pH POC ABG pCO2 POC ABG pO2 ABG Oxyhemoglobin ABG Sodium ABG Potassium ABG Glucose Carboxyhemoglobin Sodium Potassium Chloride Carbon Dioxide BUN Creatinine 6.0 H Glucose POC Glucose Calcium Phosphorus Ferritin 696.6 H Total Bilirubin AST ALT Alkaline Phosphatase Lactate Dehydrogenase Total Creatine Kinase Troponin T C-Reactive Protein NT-Pro-B Natriuret Pep Serum Total Protein Total Protein Albumin Cholesterol LDL Cholesterol Direct HDL Cholesterol PTH Intact Arterial Blood Glucose Urine WBC (Auto) Urine Creatinine Valproic Acid Heparin-induced Plt Ab Lymph Enumerat CD4/CD8 Absolute CD3 Count Absolute CD4 Count % CD8 Cells Absolute CD8 Count Absolute CD19 Count Coronavirus (PCR) HIV-1 RNA PCR copies/ml HIV-1 RNA (PCR) log 09/20/20 09/20/20 09/20/20 17:10 18:21 23:14 WBC RBC Hgb Hct MCV MCH MCHC RDW Plt Count Lymph % (Auto) [place] % (Auto) Lymph # (Auto) [place] # (Auto) Seg Neutrophils % Seg Neuts % (Manual) Lymphocytes % (Manual) Monocytes % (Manual) Nucleated RBC % Seg Neutrophils # Seg Neutrophils # Man Abs Lymphs (Manual) Lymphocytes # (Manual) PT INR APTT D-Dimer Heparin Anti-Xa Level ABG pH POC ABG pCO2 POC ABG pO2 ABG Oxyhemoglobin ABG Sodium ABG Potassium ABG Glucose Carboxyhemoglobin Sodium Potassium Chloride Carbon Dioxide BUN Creatinine Glucose POC Glucose 129 H 170 H Calcium Phosphorus Ferritin Total Bilirubin AST ALT Alkaline Phosphatase Lactate Dehydrogenase 209 H Total Creatine Kinase Troponin T C-Reactive Protein 10.60 H NT-Pro-B Natriuret Pep Serum Total Protein Total Protein Albumin Cholesterol LDL Cholesterol Direct HDL Cholesterol PTH Intact Arterial Blood Glucose Urine WBC (Auto) Urine Creatinine Valproic Acid Heparin-induced Plt Ab Lymph Enumerat CD4/CD8 Absolute CD3 Count Absolute CD4 Count % CD8 Cells Absolute CD8 Count Absolute CD19 Count Coronavirus (PCR) HIV-1 RNA PCR copies/ml HIV-1 RNA (PCR) log 09/21/20 09/21/20 09/21/20 05:35 17:09 23:18 WBC RBC Hgb Hct MCV MCH MCHC RDW Plt Count Lymph % (Auto) [place] % (Auto) Lymph # (Auto) [place] # (Auto) Seg Neutrophils % Seg Neuts % (Manual) Lymphocytes % (Manual) Monocytes % (Manual) Nucleated RBC % Seg Neutrophils # Seg Neutrophils # Man Abs Lymphs (Manual) Lymphocytes # (Manual) PT INR APTT D-Dimer Heparin Anti-Xa Level ABG pH POC ABG pCO2 POC ABG pO2 ABG Oxyhemoglobin ABG Sodium ABG Potassium ABG Glucose Carboxyhemoglobin Sodium Potassium Chloride Carbon Dioxide BUN Creatinine Glucose POC Glucose 170 H 140 H 139 H Calcium Phosphorus Ferritin Total Bilirubin AST ALT Alkaline Phosphatase Lactate Dehydrogenase Total Creatine Kinase Troponin T C-Reactive Protein NT-Pro-B Natriuret Pep Serum Total Protein Total Protein Albumin Cholesterol LDL Cholesterol Direct HDL Cholesterol PTH Intact Arterial Blood Glucose Urine WBC (Auto) Urine Creatinine Valproic Acid Heparin-induced Plt Ab Lymph Enumerat CD4/CD8 Absolute CD3 Count Absolute CD4 Count % CD8 Cells Absolute CD8 Count Absolute CD19 Count Coronavirus (PCR) HIV-1 RNA PCR copies/ml HIV-1 RNA (PCR) log 09/21/20 09/21/20 09/21/20 Unknown Unknown Unknown WBC RBC 3.56 L Hgb 11.3 L Hct 33.2 L MCV MCH MCHC RDW Plt Count 125 L Lymph % (Auto) [place] % (Auto) Lymph # (Auto) [place] # (Auto) Seg Neutrophils % Seg Neuts % (Manual) 90.0 H Lymphocytes % (Manual) 8.0 L Monocytes % (Manual) Nucleated RBC % 1.0 H Seg Neutrophils # Seg Neutrophils # Man 9.4 H Abs Lymphs (Manual) Lymphocytes # (Manual) 0.8 L PT 16.8 H INR 1.36 H APTT D-Dimer Heparin Anti-Xa Level ABG pH POC ABG pCO2 POC ABG pO2 ABG Oxyhemoglobin ABG Sodium ABG Potassium ABG Glucose Carboxyhemoglobin Sodium Potassium Chloride Carbon Dioxide BUN 83 H Creatinine 4.3 H Glucose 163 H POC Glucose Calcium Phosphorus Ferritin Total Bilirubin 2.40 H AST ALT 57 H Alkaline Phosphatase < 5 L Lactate Dehydrogenase Total Creatine Kinase Troponin T C-Reactive Protein NT-Pro-B Natriuret Pep Serum Total Protein Total Protein Albumin 1.9 L Cholesterol LDL Cholesterol Direct HDL Cholesterol PTH Intact Arterial Blood Glucose Urine WBC (Auto) Urine Creatinine Valproic Acid Heparin-induced Plt Ab Lymph Enumerat CD4/CD8 Absolute CD3 Count Absolute CD4 Count % CD8 Cells Absolute CD8 Count Absolute CD19 Count Coronavirus (PCR) HIV-1 RNA PCR copies/ml HIV-1 RNA (PCR) log 09/22/20 09/22/20 09/22/20 05:38 05:38 05:38 WBC 15.8 H RBC 3.36 L Hgb 10.8 L Hct 31.0 L MCV MCH MCHC 35 H RDW Plt Count 68 L Lymph % (Auto) 3.1 L [place] % (Auto) 10.7 H Lymph # (Auto) 0.5 L [place] # (Auto) 1.7 H Seg Neutrophils % 85.9 H Seg Neuts % (Manual) Lymphocytes % (Manual) Monocytes % (Manual) Nucleated RBC % Seg Neutrophils # 13.6 H Seg Neutrophils # Man Abs Lymphs (Manual) Lymphocytes # (Manual) PT INR APTT D-Dimer 3281.49 H Heparin Anti-Xa Level ABG pH POC ABG pCO2 POC ABG pO2 ABG Oxyhemoglobin ABG Sodium ABG Potassium ABG Glucose Carboxyhemoglobin Sodium Potassium Chloride Carbon Dioxide BUN 61 H Creatinine 3.1 H Glucose 129 H POC Glucose Calcium Phosphorus Ferritin Total Bilirubin AST ALT Alkaline Phosphatase Lactate Dehydrogenase 277 H Total Creatine Kinase Troponin T C-Reactive Protein 6.60 H NT-Pro-B Natriuret Pep Serum Total Protein Total Protein Albumin Cholesterol LDL Cholesterol Direct HDL Cholesterol PTH Intact Arterial Blood Glucose Urine WBC (Auto) Urine Creatinine Valproic Acid Heparin-induced Plt Ab Lymph Enumerat CD4/CD8 Absolute CD3 Count Absolute CD4 Count % CD8 Cells Absolute CD8 Count Absolute CD19 Count Coronavirus (PCR) HIV-1 RNA PCR copies/ml HIV-1 RNA (PCR) log 09/22/20 09/22/20 09/22/20 05:38 05:44 11:26 WBC RBC Hgb Hct MCV MCH MCHC RDW Plt Count Lymph % (Auto) [place] % (Auto) Lymph # (Auto) [place] # (Auto) Seg Neutrophils % Seg Neuts % (Manual) Lymphocytes % (Manual) Monocytes % (Manual) Nucleated RBC % Seg Neutrophils # Seg Neutrophils # Man Abs Lymphs (Manual) Lymphocytes # (Manual) PT INR APTT D-Dimer Heparin Anti-Xa Level ABG pH POC ABG pCO2 POC ABG pO2 ABG Oxyhemoglobin ABG Sodium ABG Potassium ABG Glucose Carboxyhemoglobin Sodium Potassium Chloride Carbon Dioxide BUN Creatinine Glucose POC Glucose 112 H 131 H Calcium Phosphorus Ferritin 927.8 H Total Bilirubin AST ALT Alkaline Phosphatase Lactate Dehydrogenase Total Creatine Kinase Troponin T C-Reactive Protein NT-Pro-B Natriuret Pep Serum Total Protein Total Protein Albumin Cholesterol LDL Cholesterol Direct HDL Cholesterol PTH Intact Arterial Blood Glucose Urine WBC (Auto) Urine Creatinine Valproic Acid Heparin-induced Plt Ab Lymph Enumerat CD4/CD8 Absolute CD3 Count Absolute CD4 Count % CD8 Cells Absolute CD8 Count Absolute CD19 Count Coronavirus (PCR) HIV-1 RNA PCR copies/ml HIV-1 RNA (PCR) log 09/22/20 09/22/20 09/22/20 15:12 15:12 15:12 WBC RBC Hgb Hct MCV MCH MCHC RDW Plt Count Lymph % (Auto) [place] % (Auto) Lymph # (Auto) [place] # (Auto) Seg Neutrophils % Seg Neuts % (Manual) Lymphocytes % (Manual) Monocytes % (Manual) Nucleated RBC % Seg Neutrophils # Seg Neutrophils # Man Abs Lymphs (Manual) Lymphocytes # (Manual) PT 17.3 H INR 1.42 H APTT D-Dimer Heparin Anti-Xa Level ABG pH POC ABG pCO2 POC ABG pO2 ABG Oxyhemoglobin ABG Sodium ABG Potassium ABG Glucose Carboxyhemoglobin Sodium Potassium Chloride Carbon Dioxide BUN Creatinine 3.0 H Glucose POC Glucose Calcium Phosphorus Ferritin Total Bilirubin AST ALT Alkaline Phosphatase Lactate Dehydrogenase Total Creatine Kinase Troponin T C-Reactive Protein NT-Pro-B Natriuret Pep Serum Total Protein Total Protein Albumin Cholesterol LDL Cholesterol Direct HDL Cholesterol PTH Intact Arterial Blood Glucose Urine WBC (Auto) Urine Creatinine Valproic Acid Heparin-induced Plt Ab Weak positive H Lymph Enumerat CD4/CD8 Absolute CD3 Count Absolute CD4 Count % CD8 Cells Absolute CD8 Count Absolute CD19 Count Coronavirus (PCR) HIV-1 RNA PCR copies/ml HIV-1 RNA (PCR) log 09/22/20 09/22/20 09/23/20 16:53 23:55 04:36 WBC 14.2 H RBC 3.05 L Hgb 9.8 L Hct 28.4 L MCV MCH MCHC RDW Plt Count 39 L Lymph % (Auto) [place] % (Auto) Lymph # (Auto) [place] # (Auto) Seg Neutrophils % Seg Neuts % (Manual) 91.0 H Lymphocytes % (Manual) 2.0 L Monocytes % (Manual) Nucleated RBC % Seg Neutrophils # Seg Neutrophils # Man 12.9 H Abs Lymphs (Manual) Lymphocytes # (Manual) 0.3 L PT INR APTT D-Dimer Heparin Anti-Xa Level ABG pH POC ABG pCO2 POC ABG pO2 ABG Oxyhemoglobin ABG Sodium ABG Potassium ABG Glucose Carboxyhemoglobin Sodium Potassium Chloride Carbon Dioxide BUN Creatinine Glucose POC Glucose 138 H 171 H Calcium Phosphorus Ferritin Total Bilirubin AST ALT Alkaline Phosphatase Lactate Dehydrogenase Total Creatine Kinase Troponin T C-Reactive Protein NT-Pro-B Natriuret Pep Serum Total Protein Total Protein Albumin Cholesterol LDL Cholesterol Direct HDL Cholesterol PTH Intact Arterial Blood Glucose Urine WBC (Auto) Urine Creatinine Valproic Acid Heparin-induced Plt Ab Lymph Enumerat CD4/CD8 Absolute CD3 Count Absolute CD4 Count % CD8 Cells Absolute CD8 Count Absolute CD19 Count Coronavirus (PCR) HIV-1 RNA PCR copies/ml HIV-1 RNA (PCR) log 09/23/20 09/23/20 09/23/20 04:36 05:41 11:38 WBC RBC Hgb Hct MCV MCH MCHC RDW Plt Count Lymph % (Auto) [place] % (Auto) Lymph # (Auto) [place] # (Auto) Seg Neutrophils % Seg Neuts % (Manual) Lymphocytes % (Manual) Monocytes % (Manual) Nucleated RBC % Seg Neutrophils # Seg Neutrophils # Man Abs Lymphs (Manual) Lymphocytes # (Manual) PT INR APTT D-Dimer Heparin Anti-Xa Level ABG pH POC ABG pCO2 POC ABG pO2 ABG Oxyhemoglobin ABG Sodium ABG Potassium ABG Glucose Carboxyhemoglobin Sodium Potassium Chloride Carbon Dioxide BUN 76 H Creatinine 3.1 H Glucose 157 H POC Glucose 136 H 141 H Calcium Phosphorus Ferritin Total Bilirubin AST ALT Alkaline Phosphatase Lactate Dehydrogenase Total Creatine Kinase Troponin T C-Reactive Protein NT-Pro-B Natriuret Pep Serum Total Protein Total Protein Albumin Cholesterol LDL Cholesterol Direct HDL Cholesterol PTH Intact Arterial Blood Glucose Urine WBC (Auto) Urine Creatinine Valproic Acid Heparin-induced Plt Ab Lymph Enumerat CD4/CD8 Absolute CD3 Count Absolute CD4 Count % CD8 Cells Absolute CD8 Count Absolute CD19 Count Coronavirus (PCR) HIV-1 RNA PCR copies/ml HIV-1 RNA (PCR) log 09/23/20 09/23/20 09/24/20 17:09 23:51 05:00 WBC 24.2 H RBC 3.23 L Hgb 10.0 L Hct 29.7 L MCV MCH MCHC RDW Plt Count 74 L Lymph % (Auto) [place] % (Auto) Lymph # (Auto) [place] # (Auto) Seg Neutrophils % Seg Neuts % (Manual) Lymphocytes % (Manual) Monocytes % (Manual) Nucleated RBC % Seg Neutrophils # Seg Neutrophils # Man Abs Lymphs (Manual) Lymphocytes # (Manual) PT INR APTT D-Dimer Heparin Anti-Xa Level ABG pH POC ABG pCO2 POC ABG pO2 ABG Oxyhemoglobin ABG Sodium ABG Potassium ABG Glucose Carboxyhemoglobin Sodium Potassium Chloride Carbon Dioxide BUN Creatinine Glucose POC Glucose 128 H 128 H Calcium Phosphorus Ferritin Total Bilirubin AST ALT Alkaline Phosphatase Lactate Dehydrogenase Total Creatine Kinase Troponin T C-Reactive Protein NT-Pro-B Natriuret Pep Serum Total Protein Total Protein Albumin Cholesterol LDL Cholesterol Direct HDL Cholesterol PTH Intact Arterial Blood Glucose Urine WBC (Auto) Urine Creatinine Valproic Acid Heparin-induced Plt Ab Lymph Enumerat CD4/CD8 Absolute CD3 Count Absolute CD4 Count % CD8 Cells Absolute CD8 Count Absolute CD19 Count Coronavirus (PCR) HIV-1 RNA PCR copies/ml HIV-1 RNA (PCR) log 09/24/20 09/24/20 09/24/20 05:00 05:00 05:00 WBC RBC Hgb Hct MCV MCH MCHC RDW Plt Count Lymph % (Auto) [place] % (Auto) Lymph # (Auto) [place] # (Auto) Seg Neutrophils % Seg Neuts % (Manual) Lymphocytes % (Manual) Monocytes % (Manual) Nucleated RBC % Seg Neutrophils # Seg Neutrophils # Man Abs Lymphs (Manual) Lymphocytes # (Manual) PT INR APTT D-Dimer 1772.86 H Heparin Anti-Xa Level ABG pH POC ABG pCO2 POC ABG pO2 ABG Oxyhemoglobin ABG Sodium ABG Potassium ABG Glucose Carboxyhemoglobin Sodium Potassium Chloride 107.1 H Carbon Dioxide BUN 90 H Creatinine 3.1 H Glucose 118 H POC Glucose Calcium Phosphorus Ferritin 1190.0 H Total Bilirubin AST ALT Alkaline Phosphatase Lactate Dehydrogenase 276 H Total Creatine Kinase Troponin T C-Reactive Protein 4.20 H NT-Pro-B Natriuret Pep Serum Total Protein Total Protein Albumin Cholesterol LDL Cholesterol Direct HDL Cholesterol PTH Intact Arterial Blood Glucose Urine WBC (Auto) Urine Creatinine Valproic Acid Heparin-induced Plt Ab Lymph Enumerat CD4/CD8 Absolute CD3 Count Absolute CD4 Count % CD8 Cells Absolute CD8 Count Absolute CD19 Count Coronavirus (PCR) HIV-1 RNA PCR copies/ml HIV-1 RNA (PCR) log 09/24/20 09/24/20 09/24/20 05:12 11:25 12:09 WBC RBC Hgb Hct MCV MCH MCHC RDW Plt Count Lymph % (Auto) [place] % (Auto) Lymph # (Auto) [place] # (Auto) Seg Neutrophils % Seg Neuts % (Manual) Lymphocytes % (Manual) Monocytes % (Manual) Nucleated RBC % Seg Neutrophils # Seg Neutrophils # Man Abs Lymphs (Manual) Lymphocytes # (Manual) PT INR APTT D-Dimer Heparin Anti-Xa Level ABG pH POC ABG pCO2 POC ABG pO2 ABG Oxyhemoglobin ABG Sodium ABG Potassium ABG Glucose Carboxyhemoglobin Sodium Potassium Chloride Carbon Dioxide BUN Creatinine 3.1 H Glucose POC Glucose 114 H 110 H Calcium Phosphorus Ferritin Total Bilirubin AST ALT Alkaline Phosphatase Lactate Dehydrogenase Total Creatine Kinase Troponin T C-Reactive Protein NT-Pro-B Natriuret Pep Serum Total Protein Total Protein Albumin Cholesterol LDL Cholesterol Direct HDL Cholesterol PTH Intact Arterial Blood Glucose Urine WBC (Auto) Urine Creatinine Valproic Acid Heparin-induced Plt Ab Lymph Enumerat CD4/CD8 Absolute CD3 Count Absolute CD4 Count % CD8 Cells Absolute CD8 Count Absolute CD19 Count Coronavirus (PCR) HIV-1 RNA PCR copies/ml HIV-1 RNA (PCR) log 09/24/20 09/24/20 09/24/20 12:13 12:13 17:41 WBC 20.8 H RBC 3.04 L Hgb 9.5 L Hct 28.0 L MCV MCH MCHC RDW Plt Count 78 L Lymph % (Auto) [place] % (Auto) Lymph # (Auto) [place] # (Auto) Seg Neutrophils % Seg Neuts % (Manual) Lymphocytes % (Manual) Monocytes % (Manual) Nucleated RBC % Seg Neutrophils # Seg Neutrophils # Man Abs Lymphs (Manual) Lymphocytes # (Manual) PT 15.7 H INR 1.27 H APTT D-Dimer Heparin Anti-Xa Level ABG pH POC ABG pCO2 POC ABG pO2 ABG Oxyhemoglobin ABG Sodium ABG Potassium ABG Glucose Carboxyhemoglobin Sodium Potassium Chloride Carbon Dioxide BUN Creatinine Glucose POC Glucose 133 H Calcium Phosphorus Ferritin Total Bilirubin AST ALT Alkaline Phosphatase Lactate Dehydrogenase Total Creatine Kinase Troponin T C-Reactive Protein NT-Pro-B Natriuret Pep Serum Total Protein Total Protein Albumin Cholesterol LDL Cholesterol Direct HDL Cholesterol PTH Intact Arterial Blood Glucose Urine WBC (Auto) Urine Creatinine Valproic Acid Heparin-induced Plt Ab Lymph Enumerat CD4/CD8 Absolute CD3 Count Absolute CD4 Count % CD8 Cells Absolute CD8 Count Absolute CD19 Count Coronavirus (PCR) HIV-1 RNA PCR copies/ml HIV-1 RNA (PCR) log 09/24/20 09/25/20 09/25/20 23:34 06:40 06:40 WBC RBC Hgb Hct MCV MCH MCHC RDW Plt Count Lymph % (Auto) [place] % (Auto) Lymph # (Auto) [place] # (Auto) Seg Neutrophils % Seg Neuts % (Manual) Lymphocytes % (Manual) Monocytes % (Manual) Nucleated RBC % Seg Neutrophils # Seg Neutrophils # Man Abs Lymphs (Manual) Lymphocytes # (Manual) PT INR APTT D-Dimer Heparin Anti-Xa Level ABG pH POC ABG pCO2 POC ABG pO2 ABG Oxyhemoglobin ABG Sodium ABG Potassium ABG Glucose Carboxyhemoglobin Sodium Potassium Chloride 109.0 H Carbon Dioxide BUN 98 H Creatinine 3.0 H 3.0 H Glucose 111 H POC Glucose 113 H Calcium Phosphorus Ferritin Total Bilirubin AST ALT Alkaline Phosphatase Lactate Dehydrogenase Total Creatine Kinase Troponin T C-Reactive Protein NT-Pro-B Natriuret Pep Serum Total Protein Total Protein Albumin Cholesterol LDL Cholesterol Direct HDL Cholesterol PTH Intact Arterial Blood Glucose Urine WBC (Auto) Urine Creatinine Valproic Acid Heparin-induced Plt Ab Lymph Enumerat CD4/CD8 Absolute CD3 Count Absolute CD4 Count % CD8 Cells Absolute CD8 Count Absolute CD19 Count Coronavirus (PCR) HIV-1 RNA PCR copies/ml HIV-1 RNA (PCR) log 09/25/20 09/25/20 09/25/20 10:45 12:45 18:03 WBC 20.7 H RBC 3.33 L Hgb 10.2 L Hct 31.3 L MCV MCH MCHC RDW Plt Count 139 L Lymph % (Auto) [place] % (Auto) Lymph # (Auto) [place] # (Auto) Seg Neutrophils % Seg Neuts % (Manual) Lymphocytes % (Manual) Monocytes % (Manual) Nucleated RBC % Seg Neutrophils # Seg Neutrophils # Man Abs Lymphs (Manual) Lymphocytes # (Manual) PT INR APTT D-Dimer Heparin Anti-Xa Level ABG pH POC ABG pCO2 POC ABG pO2 ABG Oxyhemoglobin ABG Sodium ABG Potassium ABG Glucose Carboxyhemoglobin Sodium Potassium Chloride Carbon Dioxide BUN Creatinine Glucose POC Glucose 108 H 114 H Calcium Phosphorus Ferritin Total Bilirubin AST ALT Alkaline Phosphatase Lactate Dehydrogenase Total Creatine Kinase Troponin T C-Reactive Protein NT-Pro-B Natriuret Pep Serum Total Protein Total Protein Albumin Cholesterol LDL Cholesterol Direct HDL Cholesterol PTH Intact Arterial Blood Glucose Urine WBC (Auto) Urine Creatinine Valproic Acid Heparin-induced Plt Ab Lymph Enumerat CD4/CD8 Absolute CD3 Count Absolute CD4 Count % CD8 Cells Absolute CD8 Count Absolute CD19 Count Coronavirus (PCR) HIV-1 RNA PCR copies/ml HIV-1 RNA (PCR) log 09/25/20 09/26/20 09/26/20 23:29 05:00 07:06 WBC 17.0 H RBC 3.10 L Hgb 9.6 L Hct 28.8 L MCV MCH MCHC RDW Plt Count Lymph % (Auto) [place] % (Auto) Lymph # (Auto) [place] # (Auto) Seg Neutrophils % Seg Neuts % (Manual) Lymphocytes % (Manual) Monocytes % (Manual) Nucleated RBC % Seg Neutrophils # Seg Neutrophils # Man Abs Lymphs (Manual) Lymphocytes # (Manual) PT INR APTT D-Dimer Heparin Anti-Xa Level ABG pH POC ABG pCO2 POC ABG pO2 ABG Oxyhemoglobin ABG Sodium ABG Potassium ABG Glucose Carboxyhemoglobin Sodium Potassium Chloride Carbon Dioxide BUN Creatinine Glucose POC Glucose 111 H 115 H Calcium Phosphorus Ferritin Total Bilirubin AST ALT Alkaline Phosphatase Lactate Dehydrogenase Total Creatine Kinase Troponin T C-Reactive Protein NT-Pro-B Natriuret Pep Serum Total Protein Total Protein Albumin Cholesterol LDL Cholesterol Direct HDL Cholesterol PTH Intact Arterial Blood Glucose Urine WBC (Auto) Urine Creatinine Valproic Acid Heparin-induced Plt Ab Lymph Enumerat CD4/CD8 Absolute CD3 Count Absolute CD4 Count % CD8 Cells Absolute CD8 Count Absolute CD19 Count Coronavirus (PCR) HIV-1 RNA PCR copies/ml HIV-1 RNA (PCR) log 09/26/20 09/26/20 09/27/20 07:06 17:26 04:00 WBC RBC Hgb Hct MCV MCH MCHC RDW Plt Count Lymph % (Auto) [place] % (Auto) Lymph # (Auto) [place] # (Auto) Seg Neutrophils % Seg Neuts % (Manual) Lymphocytes % (Manual) Monocytes % (Manual) Nucleated RBC % Seg Neutrophils # Seg Neutrophils # Man Abs Lymphs (Manual) Lymphocytes # (Manual) PT INR APTT D-Dimer Heparin Anti-Xa Level ABG pH POC ABG pCO2 POC ABG pO2 ABG Oxyhemoglobin ABG Sodium ABG Potassium ABG Glucose Carboxyhemoglobin Sodium Potassium Chloride Carbon Dioxide BUN 69 H 67 H Creatinine 2.2 H 2.3 H Glucose 107 H 121 H POC Glucose 124 H Calcium Phosphorus Ferritin Total Bilirubin AST ALT Alkaline Phosphatase Lactate Dehydrogenase Total Creatine Kinase Troponin T C-Reactive Protein NT-Pro-B Natriuret Pep Serum Total Protein Total Protein Albumin Cholesterol LDL Cholesterol Direct HDL Cholesterol PTH Intact Arterial Blood Glucose Urine WBC (Auto) Urine Creatinine Valproic Acid Heparin-induced Plt Ab Lymph Enumerat CD4/CD8 Absolute CD3 Count Absolute CD4 Count % CD8 Cells Absolute CD8 Count Absolute CD19 Count Coronavirus (PCR) HIV-1 RNA PCR copies/ml HIV-1 RNA (PCR) log 09/27/20 09/27/20 09/27/20 04:00 05:00 17:11 WBC 14.6 H RBC 2.72 L Hgb 8.6 L Hct 25.8 L MCV 95 H MCH MCHC RDW Plt Count Lymph % (Auto) 4.3 L [place] % (Auto) Lymph # (Auto) 0.6 L [place] # (Auto) 0.9 H Seg Neutrophils % 89.6 H Seg Neuts % (Manual) Lymphocytes % (Manual) Monocytes % (Manual) Nucleated RBC % Seg Neutrophils # 13.1 H Seg Neutrophils # Man Abs Lymphs (Manual) Lymphocytes # (Manual) PT INR APTT D-Dimer Heparin Anti-Xa Level ABG pH POC ABG pCO2 POC ABG pO2 ABG Oxyhemoglobin ABG Sodium ABG Potassium ABG Glucose Carboxyhemoglobin Sodium Potassium Chloride Carbon Dioxide BUN Creatinine 2.4 H Glucose POC Glucose 132 H Calcium Phosphorus Ferritin Total Bilirubin AST ALT Alkaline Phosphatase Lactate Dehydrogenase Total Creatine Kinase Troponin T C-Reactive Protein NT-Pro-B Natriuret Pep Serum Total Protein Total Protein Albumin Cholesterol LDL Cholesterol Direct HDL Cholesterol PTH Intact Arterial Blood Glucose Urine WBC (Auto) Urine Creatinine Valproic Acid Heparin-induced Plt Ab Lymph Enumerat CD4/CD8 Absolute CD3 Count Absolute CD4 Count % CD8 Cells Absolute CD8 Count Absolute CD19 Count Coronavirus (PCR) HIV-1 RNA PCR copies/ml HIV-1 RNA (PCR) log 09/28/20 09/28/20 09/29/20 04:46 04:46 04:45 WBC 14.6 H RBC 2.66 L Hgb 8.4 L Hct 25.3 L MCV 95 H MCH MCHC RDW Plt Count Lymph % (Auto) [place] % (Auto) Lymph # (Auto) [place] # (Auto) Seg Neutrophils % Seg Neuts % (Manual) Lymphocytes % (Manual) Monocytes % (Manual) Nucleated RBC % Seg Neutrophils # Seg Neutrophils # Man Abs Lymphs (Manual) Lymphocytes # (Manual) PT INR APTT D-Dimer Heparin Anti-Xa Level ABG pH POC ABG pCO2 POC ABG pO2 ABG Oxyhemoglobin ABG Sodium ABG Potassium ABG Glucose Carboxyhemoglobin Sodium Potassium Chloride Carbon Dioxide BUN 71 H 63 H Creatinine 2.3 H 2.2 H Glucose 105 H POC Glucose Calcium Phosphorus Ferritin Total Bilirubin AST ALT Alkaline Phosphatase Lactate Dehydrogenase Total Creatine Kinase Troponin T C-Reactive Protein NT-Pro-B Natriuret Pep Serum Total Protein Total Protein Albumin Cholesterol LDL Cholesterol Direct HDL Cholesterol PTH Intact Arterial Blood Glucose Urine WBC (Auto) Urine Creatinine Valproic Acid Heparin-induced Plt Ab Lymph Enumerat CD4/CD8 Absolute CD3 Count Absolute CD4 Count % CD8 Cells Absolute CD8 Count Absolute CD19 Count Coronavirus (PCR) HIV-1 RNA PCR copies/ml HIV-1 RNA (PCR) log 09/29/20 09/29/20 09/29/20 04:45 05:43 17:50 WBC RBC 2.92 L Hgb 9.6 L Hct 28.1 L MCV 96 H MCH 33 H MCHC RDW Plt Count Lymph % (Auto) [place] % (Auto) Lymph # (Auto) [place] # (Auto) Seg Neutrophils % Seg Neuts % (Manual) Lymphocytes % (Manual) Monocytes % (Manual) Nucleated RBC % Seg Neutrophils # Seg Neutrophils # Man Abs Lymphs (Manual) Lymphocytes # (Manual) PT INR APTT D-Dimer Heparin Anti-Xa Level ABG pH POC ABG pCO2 POC ABG pO2 ABG Oxyhemoglobin ABG Sodium ABG Potassium ABG Glucose Carboxyhemoglobin Sodium Potassium Chloride Carbon Dioxide BUN Creatinine Glucose POC Glucose 69 L 132 H Calcium Phosphorus Ferritin Total Bilirubin AST ALT Alkaline Phosphatase Lactate Dehydrogenase Total Creatine Kinase Troponin T C-Reactive Protein NT-Pro-B Natriuret Pep Serum Total Protein Total Protein Albumin Cholesterol LDL Cholesterol Direct HDL Cholesterol PTH Intact Arterial Blood Glucose Urine WBC (Auto) Urine Creatinine Valproic Acid Heparin-induced Plt Ab Lymph Enumerat CD4/CD8 Absolute CD3 Count Absolute CD4 Count % CD8 Cells Absolute CD8 Count Absolute CD19 Count Coronavirus (PCR) HIV-1 RNA PCR copies/ml HIV-1 RNA (PCR) log 09/30/20 09/30/20 09/30/20 04:47 04:47 04:47 WBC RBC 2.47 L Hgb 8.1 L Hct 23.9 L MCV 97 H MCH 33 H MCHC RDW Plt Count Lymph % (Auto) [place] % (Auto) Lymph # (Auto) [place] # (Auto) Seg Neutrophils % Seg Neuts % (Manual) Lymphocytes % (Manual) Monocytes % (Manual) Nucleated RBC % Seg Neutrophils # Seg Neutrophils # Man Abs Lymphs (Manual) Lymphocytes # (Manual) PT INR APTT D-Dimer Heparin Anti-Xa Level ABG pH POC ABG pCO2 POC ABG pO2 ABG Oxyhemoglobin ABG Sodium ABG Potassium ABG Glucose Carboxyhemoglobin Sodium Potassium Chloride Carbon Dioxide 31 H BUN 63 H Creatinine 2.1 H Glucose POC Glucose Calcium Phosphorus Ferritin Total Bilirubin AST ALT Alkaline Phosphatase Lactate Dehydrogenase Total Creatine Kinase Troponin T C-Reactive Protein NT-Pro-B Natriuret Pep Serum Total Protein 5.5 L Total Protein 5.9 L Albumin 2.2 L 2.1 L Cholesterol LDL Cholesterol Direct HDL Cholesterol PTH Intact Arterial Blood Glucose Urine WBC (Auto) Urine Creatinine Valproic Acid Heparin-induced Plt Ab Lymph Enumerat CD4/CD8 Absolute CD3 Count Absolute CD4 Count % CD8 Cells Absolute CD8 Count Absolute CD19 Count Coronavirus (PCR) HIV-1 RNA PCR copies/ml HIV-1 RNA (PCR) log 10/01/20 10/01/20 10/02/20 07:16 08:30 05:10 WBC RBC Hgb Hct MCV MCH MCHC RDW Plt Count Lymph % (Auto) [place] % (Auto) Lymph # (Auto) [place] # (Auto) Seg Neutrophils % Seg Neuts % (Manual) Lymphocytes % (Manual) Monocytes % (Manual) Nucleated RBC % Seg Neutrophils # Seg Neutrophils # Man Abs Lymphs (Manual) Lymphocytes # (Manual) PT INR APTT D-Dimer Heparin Anti-Xa Level ABG pH POC ABG pCO2 POC ABG pO2 ABG Oxyhemoglobin ABG Sodium ABG Potassium ABG Glucose Carboxyhemoglobin Sodium Potassium Chloride Carbon Dioxide BUN 58 H 48 H Creatinine 2.2 H 2.0 H Glucose POC Glucose Calcium Phosphorus Ferritin Total Bilirubin AST ALT Alkaline Phosphatase Lactate Dehydrogenase Total Creatine Kinase Troponin T C-Reactive Protein NT-Pro-B Natriuret Pep Serum Total Protein Total Protein Albumin Cholesterol LDL Cholesterol Direct HDL Cholesterol PTH Intact Arterial Blood Glucose Urine WBC (Auto) Urine Creatinine Valproic Acid Heparin-induced Plt Ab Lymph Enumerat CD4/CD8 Absolute CD3 Count Absolute CD4 Count % CD8 Cells Absolute CD8 Count Absolute CD19 Count Coronavirus (PCR) Positive A HIV-1 RNA PCR copies/ml HIV-1 RNA (PCR) log 10/03/20 10/03/20 10/04/20 08:12 08:12 18:19 WBC RBC Hgb Hct MCV MCH MCHC RDW Plt Count Lymph % (Auto) [place] % (Auto) Lymph # (Auto) [place] # (Auto) Seg Neutrophils % Seg Neuts % (Manual) Lymphocytes % (Manual) Monocytes % (Manual) Nucleated RBC % Seg Neutrophils # Seg Neutrophils # Man Abs Lymphs (Manual) Lymphocytes # (Manual) PT INR APTT D-Dimer Heparin Anti-Xa Level ABG pH POC ABG pCO2 POC ABG pO2 ABG Oxyhemoglobin ABG Sodium ABG Potassium ABG Glucose Carboxyhemoglobin Sodium Potassium 5.4 H D Chloride Carbon Dioxide BUN 48 H 39 H Creatinine 2.2 H 2.7 H Glucose POC Glucose Calcium 8.0 L Phosphorus Ferritin Total Bilirubin AST ALT Alkaline Phosphatase Lactate Dehydrogenase Total Creatine Kinase Troponin T C-Reactive Protein NT-Pro-B Natriuret Pep Serum Total Protein Total Protein Albumin Cholesterol LDL Cholesterol Direct HDL Cholesterol PTH Intact Arterial Blood Glucose Urine WBC (Auto) Urine Creatinine Valproic Acid 17.8 L Heparin-induced Plt Ab Lymph Enumerat CD4/CD8 Absolute CD3 Count Absolute CD4 Count % CD8 Cells Absolute CD8 Count Absolute CD19 Count Coronavirus (PCR) HIV-1 RNA PCR copies/ml HIV-1 RNA (PCR) log 10/04/20 10/05/20 10/05/20 18:19 07:14 07:14 WBC RBC 2.44 L 2.36 L Hgb 8.0 L 7.8 L Hct 24.0 L 23.3 L MCV 98 H 99 H MCH 33 H 33 H MCHC RDW 15.6 H 16.0 H Plt Count Lymph % (Auto) [place] % (Auto) Lymph # (Auto) [place] # (Auto) Seg Neutrophils % Seg Neuts % (Manual) Lymphocytes % (Manual) Monocytes % (Manual) Nucleated RBC % Seg Neutrophils # Seg Neutrophils # Man Abs Lymphs (Manual) Lymphocytes # (Manual) PT INR APTT D-Dimer Heparin Anti-Xa Level ABG pH POC ABG pCO2 POC ABG pO2 ABG Oxyhemoglobin ABG Sodium ABG Potassium ABG Glucose Carboxyhemoglobin Sodium Potassium Chloride Carbon Dioxide BUN 36 H Creatinine 2.5 H Glucose POC Glucose Calcium Phosphorus Ferritin Total Bilirubin AST ALT Alkaline Phosphatase Lactate Dehydrogenase Total Creatine Kinase Troponin T C-Reactive Protein NT-Pro-B Natriuret Pep Serum Total Protein Total Protein Albumin Cholesterol LDL Cholesterol Direct HDL Cholesterol PTH Intact Arterial Blood Glucose Urine WBC (Auto) Urine Creatinine Valproic Acid Heparin-induced Plt Ab Lymph Enumerat CD4/CD8 Absolute CD3 Count Absolute CD4 Count % CD8 Cells Absolute CD8 Count Absolute CD19 Count Coronavirus (PCR) HIV-1 RNA PCR copies/ml HIV-1 RNA (PCR) log 10/06/20 10/06/20 10/07/20 08:04 Unknown 06:45 WBC RBC 2.38 L Hgb 7.9 L Hct 23.2 L MCV 98 H MCH 33 H MCHC RDW 15.4 H Plt Count Lymph % (Auto) [place] % (Auto) Lymph # (Auto) [place] # (Auto) Seg Neutrophils % Seg Neuts % (Manual) Lymphocytes % (Manual) Monocytes % (Manual) Nucleated RBC % Seg Neutrophils # Seg Neutrophils # Man Abs Lymphs (Manual) Lymphocytes # (Manual) PT INR APTT D-Dimer Heparin Anti-Xa Level ABG pH POC ABG pCO2 POC ABG pO2 ABG Oxyhemoglobin ABG Sodium ABG Potassium ABG Glucose Carboxyhemoglobin Sodium Potassium 3.5 L Chloride 107.2 H Carbon Dioxide BUN 30 H Creatinine 2.2 H Glucose POC Glucose Calcium Phosphorus Ferritin Total Bilirubin AST ALT Alkaline Phosphatase Lactate Dehydrogenase Total Creatine Kinase Troponin T C-Reactive Protein NT-Pro-B Natriuret Pep Serum Total Protein Total Protein Albumin Cholesterol LDL Cholesterol Direct HDL Cholesterol PTH Intact Arterial Blood Glucose Urine WBC (Auto) Urine Creatinine Valproic Acid Heparin-induced Plt Ab Lymph Enumerat CD4/CD8 Absolute CD3 Count Absolute CD4 Count % CD8 Cells Absolute CD8 Count Absolute CD19 Count Coronavirus (PCR) Positive A HIV-1 RNA PCR copies/ml HIV-1 RNA (PCR) log 10/07/20 10/08/20 06:45 20:19 WBC RBC Hgb Hct MCV MCH MCHC RDW Plt Count Lymph % (Auto) [place] % (Auto) Lymph # (Auto) [place] # (Auto) Seg Neutrophils % Seg Neuts % (Manual) Lymphocytes % (Manual) Monocytes % (Manual) Nucleated RBC % Seg Neutrophils # Seg Neutrophils # Man Abs Lymphs (Manual) Lymphocytes # (Manual) PT INR APTT D-Dimer Heparin Anti-Xa Level ABG pH POC ABG pCO2 POC ABG pO2 ABG Oxyhemoglobin ABG Sodium ABG Potassium ABG Glucose Carboxyhemoglobin Sodium 135 L Potassium Chloride Carbon Dioxide BUN 28 H 22 H Creatinine 2.2 H 2.0 H Glucose POC Glucose Calcium Phosphorus Ferritin Total Bilirubin AST ALT Alkaline Phosphatase Lactate Dehydrogenase Total Creatine Kinase Troponin T C-Reactive Protein NT-Pro-B Natriuret Pep Serum Total Protein Total Protein Albumin Cholesterol LDL Cholesterol Direct HDL Cholesterol PTH Intact Arterial Blood Glucose Urine WBC (Auto) Urine Creatinine Valproic Acid Heparin-induced Plt Ab Lymph Enumerat CD4/CD8 Absolute CD3 Count Absolute CD4 Count % CD8 Cells Absolute CD8 Count Absolute CD19 Count Coronavirus (PCR) HIV-1 RNA PCR copies/ml HIV-1 RNA (PCR) log Allied health notes reviewed: nursing
--- NOTE | 2020-10-09 12:29 | Progress Note ---
Assessment and Plan 1. Acute kidney injury: Vasomotor LOLI in the setting of shock. ATN likely. Renal US negative for hydro. Multiple bladder scan negative. Patient required hemodialysis due to significant decline in the renal function. Hemodialysis: 09/20, 09/21, 09/25. Monitor renal function. Creatinine level is improving. Renal prognosis is guarded. Avoid nephrotoxic agents. Meds dosage based on GFR. No labs from today. 2. FEN: Hyperkalemia, improved. Metabolic acidosis, improved, monitor. Monitor volume status and lytes. 3. Acute hypoxic respiratory failure: Covid test positive. Supplemental O2. 4. Acute CHF: Echocardiogram: EF 40-45%. CHF orderset / pathway. Monitor. 5. Atrial fibrillation with RVR: On Amio and Metoprolol. Followed by Cards. 6. Elevated troponin: Followed by Cards. 7. Coagulopathy: Trend. 8. Shock / Hypotension: Multifactorial, monitor. Off pressors. 9. Elevated Transaminases: Improved. 10. Metabolic encephalopathy: Monitor. 11. HIV. 12. Anemia, POA: Monitor. Subjective: Patient was not examined today. However the examination findings from other providers noted. The current and previous medical records are reviewed in detail as are laboratory and imaging data reviewed when appropriate. Medications being given are also reviewed. In addition the case has been discussed with the attending hospitalist and the nurse when needed. New renal recommendations as above. Subjective Date of service: 10/09/20 Principal diagnosis: Acute Hypoxemic Resp Failure; COVID-19 infxn; Septic Shock; A-Fib with RVR Objective - Vital Signs Vital signs: Vital Signs - 12hr 10/09/20 10/09/20 10/09/20 00:37 05:25 11:31 Temperature 98.6 F 98.5 F Pulse Rate 94 H 97 H Respiratory 16 18 Rate Blood Pressure 93/65 111/73 O2 Sat by Pulse 96 98 98 Oximetry 10/09/20 11:43 Temperature Pulse Rate 59 L Respiratory Rate Blood Pressure 91/61 O2 Sat by Pulse 96 Oximetry - Lab 10/07/20 06:45 10/10/20 06:57 Most recent lab results ABG pH 7.508 (7.320-7.450) H 09/17/20 10:28 ABG O2 Saturation 93.4 (0-100) 09/17/20 10:28 Calcium 8.5 mg/dL (8.4-10.2) 10/08/20 20:19 Phosphorus 2.90 mg/dL (2.5-4.5) 09/26/20 07:06 Magnesium 1.70 mg/dL (1.7-2.3) 09/26/20 07:06 Urine Creatinine 61.0 mg/dL (0.1-20.0) H 09/18/20 12:00 Urine Sodium 62 mmol/L 09/18/20 12:00 Medications & Allergies - Medications Allergies/Adverse Reactions: Allergies heparin Adverse Reaction (Verified 09/29/20 16:33) thrombocytopenia PF4 Home Medications: Home Medications Medication Instructions Recorded Confirmed Last Taken Type AtorvaSTATin [Lipitor] 20 mg PO QHS 09/18/20 09/18/20 Unknown History Dolutegravir [Tivicay] 50 mg PO DAILY 09/18/20 09/18/20 Unknown History Emtricitabine/Tenofov Alafenam 1 tab PO DAILY 09/18/20 09/18/20 Unknown History [Descovy 200-25 mg (Nf)] allopurinoL [Zyloprim] 300 mg PO QDAY 09/18/20 09/18/20 Unknown History Amiodarone [Cordarone 200 MG TAB] 200 mg PO DAILY #60 tablet 10/01/20 Unknown Rx Apixaban [Eliquis] 2.5 mg PO Q12HR #60 tablet 10/01/20 Unknown Rx Ascorbic Acid [Vitamin C] 500 mg PO BID #60 tablet 10/01/20 Unknown Rx Cholecalciferol Vit D3 [Vitamin D3 1,000 unit PO QDAY #30 tablet 10/01/20 Unknown Rx 1,000 UNIT TAB] Famotidine [Pepcid] 20 mg PO DAILY #30 tablet 10/01/20 Unknown Rx Midodrine [Proamatine] 5 mg PO TID@0800,1200,1600 #90 10/01/20 Unknown Rx tablet QUEtiapine [SEROquel] 25 mg PO BID #30 tablet 10/01/20 Unknown Rx Zinc Sulfate 220 mg PO QDAY #30 capsule 10/01/20 Unknown Rx carvediloL [Coreg] 3.125 mg PO BID #60 tablet 10/01/20 Unknown Rx haloperidoL [Haldol] 2 mg PO Q8H PRN #30 tablet 10/01/20 Unknown Rx Active Medications: Generic Name Dose Route Start Last Admin Trade Name Freq PRN Reason Stop Dose Admin Acetaminophen 650 mg 09/17/20 13:52 09/30/20 21:12 Acetaminophen 325 Mg Tab PO 650 mg Q4H PRN Administration Pain MILD(1-3)/Fever >100.5/ANGEL Albuterol 2.5 mg 09/17/20 13:52 09/17/20 20:47 Albuterol 2.5 Mg/3 Ml Nebu IH 2.5 mg Q4HRT PRN Administration Shortness Of Breath Amiodarone HCl 200 mg 10/01/20 22:00 10/09/20 09:07 Amiodarone 200 Mg Tab PO 200 mg BID EDIE Administration Lipase/Protease/Amylase 1 each 09/20/20 13:10 Lipase 10,500/Protease 25,000/Amylase 43,750 (Units) Dr Patrick FEEDTUBE PRN PRN For Clogged Feeding Tube Apixaban 5 mg 10/05/20 22:00 10/09/20 09:07 Apixaban 5 Mg Tab PO 5 mg Q12HR EDIE Administration Ascorbic Acid 500 mg 09/20/20 22:00 10/09/20 09:07 Ascorbic Acid 500 Mg Tab PO 500 mg BID EDIE Administration Cholecalciferol 1,000 unit 09/21/20 10:00 10/09/20 09:41 Cholecalciferol (Vit D3) 1000 Unit (25 Mcg) Tab PO 1,000 unit QDAY EDIE Administration Docusate Sodium 100 mg 10/05/20 11:00 10/09/20 09:07 Docusate Sodium 100 Mg/10 Ml Oral Liqd PO 100 mg BID EDIE Administration Emtricitabine 200 mg 09/30/20 11:00 10/08/20 11:45 Emtricitabine 200 Mg Cap PO 200 mg Q48H EDIE Administration Famotidine 20 mg 09/24/20 10:00 10/09/20 09:07 Famotidine 20 Mg Tab PO 20 mg DAILY EDIE Administration Haloperidol Lactate 5 mg 10/01/20 11:34 10/04/20 13:32 Haloperidol Lactate 5 Mg/1 Ml Inj IM 5 mg Q6H PRN Administration Agitation Heparin Sodium (Porcine) 3,000 unit 09/20/20 10:06 Heparin 10,000 Units/10 Ml Vial IV VIRGIL PRN hemodialysis Sodium Chloride 100 mls @ 999 mls/hr 05/03/21 10:06 Nacl 0.9% IV VIRGIL PRN Hypotension Metoprolol Tartrate 5 mg 09/19/20 19:06 09/24/20 10:59 Metoprolol Tartrate 5 Mg/5 Ml Inj IV 5 mg Q8HR PRN Administration HR > 135 Minute Metoprolol Tartrate 12.5 mg 10/05/20 14:00 10/09/20 09:39 Metoprolol Tartrate 25 Mg Tab PO 12.5 mg TID EDIE Administration Midodrine 10 mg 10/07/20 08:00 10/09/20 09:38 Midodrine 5 Mg Tab PO 10 mg TID@0800,1200,1600 EDIE Administration Ondansetron HCl 4 mg 09/17/20 13:52 Ondansetron 4 Mg/2 Ml Inj IV Q8H PRN Nausea And Vomiting Quetiapine Fumarate 12.5 mg 10/03/20 22:00 10/08/20 21:10 Quetiapine 25 Mg Tab PO 12.5 mg QHS EDIE Administration Quetiapine Fumarate 12.5 mg 10/04/20 10:00 10/09/20 09:38 Quetiapine 25 Mg Tab PO 12.5 mg QAM EDIE Administration Simple Syrup 15 ml 09/20/20 13:10 Simple Syrup 15 Ml FEEDTUBE PRN PRN Hypoglycemia Simple Syrup 30 ml 09/20/20 13:10 Simple Syrup 15 Ml FEEDTUBE PRN PRN Hypoglycemia Sodium Bicarbonate 325 mg 09/20/20 13:10 Sodium Bicarbonate 325 Mg Tab FEEDTUBE PRN PRN For Clogged Feeding Tube Sodium Chloride 10 ml 09/17/20 22:00 10/09/20 09:07 Sodium Chloride 0.9% 10 Ml Flush Syringe IV 10 ml BID EDIE Administration Sodium Chloride 10 ml 09/17/20 13:52 09/24/20 09:15 Sodium Chloride 0.9% 10 Ml Flush Syringe IV 10 ml PRN PRN Administration LINE FLUSH Tamsulosin HCl 0.4 mg 10/07/20 13:00 10/09/20 09:07 Tamsulosin 0.4 Mg Cap PO 0.4 mg QDAY EDIE Administration Tenofovir Disoproxil Fumarate 300 mg 09/30/20 11:00 10/08/20 11:45 Tenofovir 300 Mg Tab PO 300 mg Q48H EDIE Administration Valproic Acid 250 mg 10/03/20 22:00 10/09/20 09:08 Valproic Acid 250 Mg Cap PO 250 mg BID EDIE Administration Zinc Sulfate 220 mg 09/21/20 10:00 10/09/20 09:07 Zinc Sulfate 220 Mg Cap PO 220 mg QDAY EDIE Administration
--- NOTE | 2020-10-10 07:46 | Progress Note ---
Assessment and Plan Assessment and plan: This is 70-year-old male with HIV, HTN, and atrial fibrillation (currently on therapeutic anticoagulation with Xarelto) admitted with atrial fibrillation with RVR, SIRs, metabolic acidosis, acute kidney injury, acute hypoxic respiratory failure, hypotension, and CHF Septic Shock Acute hypoxemic respiratory failure 2/2 to volume overload/chf exacerbation Acute systolic heart failure exacerbation Atrial fibrillation with RVR Acute on chronic kidney injury Hypotension Anemia Thrombocytopenia E coli bacteremia E. coli urinary tract infection NSTEMI Elevated Ddimer Leukocytosis HIV, asymptomatic HTN Coagulopathy Transaminitis -Cardiology, CCM, Nephrology, ID, general surgery, heme/onc consulted, appreciate recommendations -09/20 COVID-19 PCR positive -Droplet/isolation precautions -Dexamethasone 6 mg p.o. (09/20-09/30) -Vitamin D, vitamin C, zinc -Vasopressor support with levophed and vasopressin, midodrine -09/17 CXR shows borderline heart size, mild central pulmonary venous congestion -09/17 renal ultrasound shows no acute findings -09/18 echocardiogram shows left ventricle systolic function mildly decreased, LVEF of 40 to 45% with mild concentric left ventricle hypertrophy, trace MR, mild TR, trace MT -09/19 abdominal ultrasound shows large gallstone within the gallbladder, no pericholecystic fluid, gallbladder wall upper limits of normal measuring 3 mm -09/21 HIDA scan shows no evidence of acute cholecystitis -09/21 BLE Dopplar US no evidence for DVT -09/23 CT head shows no acute intracranial hemorrhage or parenchymal abnormality, mild diffuse brain atrophy with commensurate ventricular enlargement which is likely age appropriate, small frontal scalp lipoma measuring 9 mm in thickness, 4 cm in length, and 4 cm in width., Sinuses and mastoid air cells are clear. -09/17 proBNP 21128 -S/p IV Lasix twice daily -09/20 nephrology initiated the patient on dialysis -Pulmonary hygiene -Bipap qhs -09/25 CT abd/pelvis without contrast pending -PO amiodarone -HIV meds per ID -IV abx therapy -HIT pending -Trend CBC, BMP, LFTs DVT/GI prophylaxis: PPI, SCDs to bilateral lower extremities while in bed, no chemical anticoagulation at this time d/t thrombocytopenia Disposition: IMCU History Interval history: This is 70-year-old male with HIV, HTN, and atrial fibrillation (currently on therapeutic anticoagulation with Xarelto) presents the emergency department on 09/17 with complaints of shortness of breath over the past 3 days and on arrival of EMS patient was found to have a pulse oximetry of 85% on room air. He was placed on supplemental oxygenation. Of note patient was admitted on 09/15 with similar complaints and found to have A. fib with RVR, hyponatremia, hypomagnesemia and acute kidney injury and left AMA. He was admitted to the hospital service with atrial fibrillation with RVR, SIRs, metabolic acidosis, acute kidney injury, acute hypoxic respiratory failure, hypotension, and CHF . Cardiology, CCM and nephrology were consulted. 09/18/2020. Await echocardiogram to assess for diastolic versus systolic etiology. Patient with elevated BNP greater than 18,000. Patient apparently was admitted approximately 3 days ago but left AMA. Cardiology consulted for heart failure, A. fib with RVR and elevated troponin. Patient denies chest pain. Also, patient with elevated creatinine of 4.7 with creatinine 2.8 on recent admission. We do not have a previous creatinine as a baseline to compare. Nephrology consultation pending. Follow-up renal ultrasound. Patient with coagulopathy and INR 3.04. Unsure if patient was on anticoagulation for A. fib. 09/19/2020. Patient likely with vasomotor acute kidney injury in the setting of s hock. Follow-up urine studies and renal ultrasound. Creatinine continues to worsen. Nephrology following. Etiology of respiratory failure secondary to heart failure with Covid testing pending. Elevated troponin suggestive of NSTEMI. Continue diuresis with Lasix. Continue IV amiodarone for rate control of A. fib with RVR. Continue heparin. Follow-up echocardiogram. Cardiology following. 09/20/2020: This time my examination patient was on BiPAP therapy and now is on nasal cannula. Patient remains on amiodarone drip with heart rate in the 130s to 140s and vasopressor support with Levophed. Today nephrology will initiate hemodialysis given worsening renal function studies and has stopped diuresis with Lasix. ID resumed antiretroviral therapy and ordered a HIDA scan. Today the patient received a temporary Vas-Cath and is COVID-19 PCR resulted as positive. Patient will be started on vitamin C, vitamin D and zinc and dexamethasone given need for supplemental oxygenation. 09/21: Ecoli UTI and bacteremia and ID has changed him to meropenem, Patient received HD yesterday and patient remains on amiodarone drip. He is off the floor to obtain a HIDA scan. 09/22: HIDA scan did not show acute cholecystitis. Ecoli bacteremia is sensitive to ceftriaxone and ID changed his abx. Mentation is better. BP is liable. Remains on levophed and vasopressin. We started midodrine. HIT panel pending and hem/onc consulted. 09/23: Patient noted to have unequal pupils with left >right, STAT CT head ordered. Nephro will withhold hemodialysis and assess needs as kidney function has gotten better. Patient symptomatically follows commands and is on nasal cannula. Cardiology stopped his Eliquis due to persistent thrombocytopenia. 09/24: Patient remains confused, pupils still unequal. Started on eliquis 2.5 today and he will be transferred to IMCU. 09/25: Patient remains confused, had Bipap overnight, CT abd/pelvis ordered per ID recommendations given persistent leukocytosis. Cr remains unchanged but BUN in rising. Nephrology is on the case. 09/26/2020; patient was confused and on 3 L of oxygen. ID is following the patient and continue with antiretroviral medications, no OI prophylaxis needed. Patient is on IV Rocephin lasted 09/28 per ID recommendation for E. coli bacteremia. ID ordered CT abdomen and pelvis. We will follow the results. Patient is being followed by cardiology and they recommend to resume Eliquis with 2.5 mg p.o. twice daily, thrombocytopenia is improving. Patient is on amiodarone and metoprolol. Patient is being followed by nephrology and is on dialysis. Blood pressure was normal this morning. Patient was tachycardic in A. fib with RVR. CT head was normal. Prognosis is guarded. Continue IMCU care. 09/27: Continue IMCU care, still with unresolved Afib, will continue to adjust medications for better control. 09/28: Start Seroquel DUE TO THE AGITATION, Discussed with daughter, will work on getting Afib better controlled. Per daughter the confusion is new, although some improvement noted today. Patient will benefit from SNF 09/29: Seroquel started today as it was not started yesterday, await PT/OT, Continue to monitor mental status, will transfer to Tele. Anticipate discharge when bed available. 09/30: Discussed extensively with the daughter about her clinical condition, Seroquel discontinued as patient did not tolerate, still with low BP responded to Fluids. Hold BB and continue to monitor and redirect. Discussed with Nursing staff. 10/01: Patient seen and examined resting comfortably still with intermittent delirium. Blood pressure has improved although beta-ruddy was held midodrine was given. Will change to Coreg 3.125 with holding parameters on discharge. Per cardiology amiodarone changed to 200 mg daily. Neurology evaluation is still pending. I have initiated placement to a SNF facility and once approved patient can be discharged. Daughter has been updated on medical condition. For now on anticoagulation left in place although outpatient this may be discontinued due to patient's mental status if there is no improvement. 10/02: Neurology evaluated the patient for increased agitation and aggressive behavior and confusion. Exam suggestive of delirium stopped. Due to not tolerating Seroquel, now Geodon trial Haldol however recommended also valproic acid. No overnight issues reported. Continue awaiting SNF placement for continued rehab. Blood pressure has remained stable no further fever recorded. Monitor for any recurrence of the pain in the leg. 10/03: I have asked for a sitter a few days ago unfortunately not as available as a result restraints have been used and reassurances. Will decrease Seroquel to 12.5 twice daily as patient did not tolerate the 25 mg. Continue supportive care blood pressure meds held due to hypotension. Delirium still present delirium preventive methods including keeping the lights on through the night windows shades up discussed with nursing staff. Also discussed with neurologist. 10/04: 70-year-old male admitted to the hospital with hypoxic respiratory failure history of Covid. During hospitalization developed A. fib with RVR status metabolic acidosis and acute kidney injury. Has also been exhibiting some delirium was managed in the ICU and IMCU and subsequently is awaiting placement. He was seen by neurologist delirium of diagnosis secondary to metabolic issues. Seroquel was started initially at 25 mg p.o. twice daily but patient developed hypotension now better improved BP, Continue seroquel 12.5mg po BID seems to have good improvement in mental status. awaiting labs due to noted hyperkalemia yesterday. Repeat covud test for placement. 10/05/2020; patient is pending for placement. Repeat Covid test is negative. Blood pressure is within normal limit. Patient is confused. 10/06/2020; repeat Covid test is negative. Patient is confused. Patient last dialysis was on 09/25, renal function is stable, no need dialysis, nephrology is following. 10/07/2020; Covid test was done yesterday and was positive. Renal function is improving and nephrology is following at this time. Last dialysis was on 09/25. Patient is pending placement. Mental health consulted for confusion. 10/08/2020; patient was calm and cooperative. Patient was on condom cath. Patient was oriented only to self. 10/09/2020; patient was calm and cooperative. Patient was oriented only to self. Renal function is improving. Patient is pending placement. 10/10/2020; pending SNF placement. Patient is stable for discharge. History Interval history: Patient was seen and evaluated this morning Patient was off restraint, calm and cooperative Patient was alert and oriented to place and person, not oriented to time No complaints Hospitalist Physical - Physical exam Narrative exam: Patient was noting cardiopulmonary distress. The patient appeared well nourished and normally developed. Vital signs as documented. Head exam is unremarkable. No scleral icterus . Neck is without jugular venous distension, thyromegaly, or carotid bruits. Lungs are clear to auscultation. Cardiac exam reveals regular rate and Rhythm. Abdominal exam reveals normal bowel sounds, nontender, no organomegaly. Extremities are nonedematous and both femoral and pedal pulses are normal. MILIEU COUNSELOR: Patient was calm and cooperative. Patient was ordered oriented to self and place. Not oriented to time. - Constitutional Vitals: Temp Pulse Resp BP Pulse Ox 98.6 F 77 16 93/62 100 10/10/20 04:21 10/09/20 22:10 10/10/20 04:21 10/10/20 04:21 10/09/20 21:27 General appearance: Present: no acute distress HEART Score - HEART Score Troponin: Troponin T < 0.010 ng/mL (0.00-0.029) 09/22/20 05:38 Results - Labs CBC & Chem 7: 10/07/20 06:45 10/10/20 06:57 Labs: Laboratory Last Values WBC 6.1 K/mm3 (4.5-11.0) 10/07/20 06:45 RBC 2.38 M/mm3 (3.65-5.03) L 10/07/20 06:45 Hgb 7.9 gm/dl (11.8-15.2) L 10/07/20 06:45 Hct 23.2 % (35.5-45.6) L 10/07/20 06:45 MCV 98 fl (84-94) H 10/07/20 06:45 MCH 33 pg (28-32) H 10/07/20 06:45 MCHC 34 % (32-34) 10/07/20 06:45 RDW 15.4 % (13.2-15.2) H 10/07/20 06:45 Plt Count 203 K/mm3 (140-440) 10/07/20 06:45 Lymph % (Auto) 4.3 % (13.4-35.0) L 09/27/20 04:00 [place] % (Auto) 6.0 % (0.0-7.3) 09/27/20 04:00 Eos % (Auto) 0.1 % (0.0-4.3) 09/27/20 04:00 Baso % (Auto) 0.0 % (0.0-1.8) 09/27/20 04:00 Lymph # (Auto) 0.6 K/mm3 (1.2-5.4) L 09/27/20 04:00 [place] # (Auto) 0.9 K/mm3 (0.0-0.8) H 09/27/20 04:00 Eos # (Auto) 0.0 K/mm3 (0.0-0.4) 09/27/20 04:00 Baso # (Auto) 0.0 K/mm3 (0.0-0.1) 09/27/20 04:00 Add Manual Diff Complete 09/23/20 04:36 Total Counted 100 09/23/20 04:36 Seg Neutrophils % 89.6 % (40.0-70.0) H 09/27/20 04:00 Seg Neuts % (Manual) 91.0 % (40.0-70.0) H 09/23/20 04:36 Band Neutrophils % 2.0 % 09/23/20 04:36 Lymphocytes % (Manual) 2.0 % (13.4-35.0) L 09/23/20 04:36 Monocytes % (Manual) 5.0 % (0.0-7.3) 09/23/20 04:36 Nucleated RBC % Not Reportable 09/23/20 04:36 Seg Neutrophils # 13.1 K/mm3 (1.8-7.7) H 09/27/20 04:00 Seg Neutrophils # Man 12.9 K/mm3 (1.8-7.7) H 09/23/20 04:36 Band Neutrophils # 0.3 K/mm3 09/23/20 04:36 Abs Lymphs (Manual) 223 cells/uL (850-3900) L 09/19/20 13:35 Lymphocytes # (Manual) 0.3 K/mm3 (1.2-5.4) L 09/23/20 04:36 Abs React Lymphs (Man) 0.0 K/mm3 09/23/20 04:36 Monocytes # (Manual) 0.7 K/mm3 (0.0-0.8) 09/23/20 04:36 Eosinophils # (Manual) 0.0 K/mm3 (0.0-0.4) 09/23/20 04:36 Basophils # (Manual) 0.0 K/mm3 (0.0-0.1) 09/23/20 04:36 Metamyelocytes # 0.0 K/mm3 09/23/20 04:36 Myelocytes # 0.0 K/mm3 09/23/20 04:36 Promyelocytes # 0.0 K/mm3 09/23/20 04:36 Blast Cells # 0.0 K/mm3 09/23/20 04:36 WBC Morphology Not Reportable 09/23/20 04:36 Hypersegmented Neuts Not Reportable 09/23/20 04:36 Hyposegmented Neuts Not Reportable 09/23/20 04:36 Hypogranular Neuts Not Reportable 09/23/20 04:36 Smudge Cells Not Reportable 09/23/20 04:36 Toxic Granulation Not Reportable 09/23/20 04:36 Toxic Vacuolation Not Reportable 09/23/20 04:36 Dohle Bodies Not Reportable 09/23/20 04:36 Pelger-Huet Anomaly Not Reportable 09/23/20 04:36 Vinh Rods Not Reportable 09/23/20 04:36 Platelet Estimate Consistent w auto 09/23/20 04:36 Clumped Platelets Not Reportable 09/23/20 04:36 Plt Clumps, EDTA Not Reportable 09/23/20 04:36 Large Platelets Not Reportable 09/23/20 04:36 Giant Platelets Not Reportable 09/23/20 04:36 Platelet Satelliting Not Reportable 09/23/20 04:36 Plt Morphology Comment Not Reportable 09/23/20 04:36 RBC Morphology Not Reportable 09/23/20 04:36 Dimorphic RBCs Not Reportable 09/23/20 04:36 Polychromasia Not Reportable 09/23/20 04:36 Hypochromasia Not Reportable 09/23/20 04:36 Poikilocytosis Not Reportable 09/23/20 04:36 Anisocytosis 1+ 09/23/20 04:36 Microcytosis Not Reportable 09/23/20 04:36 Macrocytosis Not Reportable 09/23/20 04:36 Spherocytes Not Reportable 09/23/20 04:36 Pappenheimer Bodies Not Reportable 09/23/20 04:36 Sickle Cells Not Reportable 09/23/20 04:36 Target Cells Few 09/23/20 04:36 Tear Drop Cells Not Reportable 09/23/20 04:36 Ovalocytes Not Reportable 09/23/20 04:36 Helmet Cells Not Reportable 09/23/20 04:36 [place] Bodies Not Reportable 09/23/20 04:36 [place] Rings Not Reportable 09/23/20 04:36 Vita Cells Not Reportable 09/23/20 04:36 Bite Cells Not Reportable 09/23/20 04:36 Crenated Cell Not Reportable 09/23/20 04:36 Elliptocytes Not Reportable 09/23/20 04:36 Acanthocytes (Spur) Not Reportable 09/23/20 04:36 Rouleaux Not Reportable 09/23/20 04:36 Hemoglobin C Crystals Not Reportable 09/23/20 04:36 Schistocytes Not Reportable 09/23/20 04:36 Malaria parasites Not Reportable 09/23/20 04:36 Zachary Bodies Not Reportable 09/23/20 04:36 Hem Pathologist Commnt No 09/23/20 04:36 PT 15.7 Sec. (12.2-14.9) H 09/24/20 12:13 INR 1.27 (0.87-1.13) H 09/24/20 12:13 APTT 25.7 Sec. (24.2-36.6) 09/24/20 12:13 D-Dimer 1772.86 ng/mlDDU (0-234) H 09/24/20 05:00 Heparin Anti-Xa Level 0.10 U.I./ml (0.3-0.7) L 09/20/20 04:00 Heparin Anti-Xa, Unfract Negative (Negative) 09/22/20 15:12 ABG pH 7.508 (7.320-7.450) H 09/17/20 10:28 POC ABG pCO2 22.8 mmHg (32.0-48.0) L 09/17/20 10:28 POC ABG pO2 66.8 mmHg (83-108) L 09/17/20 10:28 POC ABG HCO3 17.7 09/17/20 10:28 ABG O2 Saturation 93.4 (0-100) 09/17/20 10:28 POC ABG Base Excess -3.5 09/17/20 10:28 ABG Hemoglobin 12.7 (12.0-17.5) 09/17/20 10:28 ABG Oxyhemoglobin 92.7 (94-98) L 09/17/20 10:28 ABG Methemoglobin 0.3 (0.0-1.5) 09/17/20 10:28 ABG Sodium 127.4 mmol/L (136.0-145.0) L 09/17/20 10:28 ABG Potassium 4.7 mmol/L (3.40-4.50) H 09/17/20 10:28 ABG Chloride 101.0 mmol/L (98-107) 09/17/20 10:28 ABG Glucose 121 mg/dL (65-95) H 09/17/20 10:28 Carboxyhemoglobin 0.4 (0.5-1.5) L 09/17/20 10:28 FiO2 % 21 09/17/20 10:28 Sodium 135 mmol/L (137-145) L 10/08/20 20:19 Potassium 3.9 mmol/L (3.6-5.0) 10/08/20 20:19 Chloride 101.6 mmol/L (98-107) 10/08/20 20:19 Carbon Dioxide 25 mmol/L (22-30) 10/08/20 20:19 Anion Gap 12 mmol/L 10/08/20 20:19 BUN 22 mg/dL (9-20) H 10/08/20 20:19 Creatinine 2.0 mg/dL (0.8-1.3) H 10/08/20 20:19 Estimated GFR 40 ml/min 10/08/20 20:19 BUN/Creatinine Ratio 11 % 10/08/20 20:19 Glucose 99 mg/dL (75-100) 10/08/20 20:19 POC Glucose 72 mg/dL (70-105) 09/30/20 11:45 Lactic Acid 1.00 mmol/L (0.7-2.0) 09/20/20 17:10 Calcium 8.5 mg/dL (8.4-10.2) 10/08/20 20:19 Phosphorus 2.90 mg/dL (2.5-4.5) 09/26/20 07:06 Magnesium 1.70 mg/dL (1.7-2.3) 09/26/20 07:06 Ferritin 1190.0 ng/mL (30.0-300.0) H 09/24/20 05:00 Total Bilirubin 0.80 mg/dL (0.1-1.2) 09/30/20 04:47 AST 14 units/L (5-40) 09/30/20 04:47 ALT 21 units/L (7-56) 09/30/20 04:47 Alkaline Phosphatase 81 units/L (35-129) 09/30/20 04:47 Lactate Dehydrogenase 276 units/L (91-180) H 09/24/20 05:00 Total Creatine Kinase 20 units/L (55-170) L 09/19/20 03:30 Troponin T < 0.010 ng/mL (0.00-0.029) 09/22/20 05:38 C-Reactive Protein 4.20 mg/dL (0.00-1.30) H 09/24/20 05:00 NT-Pro-B Natriuret Pep 11990 pg/mL (0-900) H 09/17/20 10:47 Serum Total Protein 5.5 g/dL (6.1-8.1) L 09/30/20 04:47 Total Protein 5.9 g/dL (6.3-8.2) L 09/30/20 04:47 Albumin 2.1 g/dL (3.8-4.8) L 09/30/20 04:47 Albumin 2.2 g/dL (3.9-5) L 09/30/20 04:47 Albumin/Globulin Ratio 0.6 % 09/30/20 04:47 Qqsye-9-Ecqzpmwni 0.3 g/dL (0.2-0.3) 09/30/20 04:47 Ddumc-0-Sufkaauti 0.7 g/dL (0.5-0.9) 09/30/20 04:47 Beta Globulins 0.3 g/dL (0.2-0.5) 09/30/20 04:47 Gamma Globulins 1.7 g/dL (0.8-1.7) 09/30/20 04:47 Abnorm Protein Band 1 see below 09/30/20 04:47 PEP Interpretation see below 09/30/20 04:47 Triglycerides 137 mg/dL (2-149) 09/17/20 13:54 Cholesterol 48 mg/dL (50-199) L 09/17/20 13:54 LDL Cholesterol Direct 4 mg/dL (50-130) L 09/17/20 13:54 HDL Cholesterol 9 mg/dL (40-59) L 09/17/20 13:54 Cholesterol/HDL Ratio 5.33 % 09/17/20 13:54 Free PSA See scanned result 09/17/20 17:35 % Free PSA Calc See scanned result 09/17/20 17:35 Total PSA See scanned result 09/17/20 17:35 Serotonin Release Assay See scanned result 09/22/20 15:12 Procalcitonin 2.10 ng/mL (<0.15) 09/25/20 06:40 PTH Intact 161.4 pg/mL (15-65) H 09/19/20 03:30 Arterial Blood Glucose 121 mg/dL (65-95) H 09/17/20 10:28 Arterial Blood Ionized Calcium 5.0 mg/dL (4.6-5.3) 09/17/20 10:28 Urine Color Yellow (Yellow) 09/18/20 12:00 Urine Turbidity Cloudy (Clear) 09/18/20 12:00 Urine pH 5.0 (5.0-7.0) 09/18/20 12:00 Ur Specific [place] 1.009 (1.003-1.030) 09/18/20 12:00 Urine Protein 30 mg/dl mg/dL (Negative) 09/18/20 12:00 Urine Glucose (UA) Neg mg/dL (Negative) 09/18/20 12:00 Urine Ketones Neg mg/dL (Negative) 09/18/20 12:00 Urine Blood Sm (Negative) 09/18/20 12:00 Urine Nitrite Neg (Negative) 09/18/20 12:00 Urine Bilirubin Neg (Negative) 09/18/20 12:00 Urine Urobilinogen < 2.0 mg/dL (<2.0) 09/18/20 12:00 Ur Leukocyte Esterase Mod (Negative) 09/18/20 12:00 Urine WBC (Auto) 71.0 /HPF (0.0-6.0) H 09/18/20 12:00 Urine RBC (Auto) 2.0 /HPF (0.0-6.0) 09/18/20 12:00 U Epithel Cells (Auto) 1.0 /HPF (0-13.0) 09/18/20 12:00 Urine Bacteria (Auto) 4+ /HPF (Negative) 09/18/20 12:00 Urine WBC Clumps 2+ /HPF 09/18/20 12:00 Hyaline Casts 3 /LPF 09/18/20 12:00 Granular Casts 3 /LPF 09/18/20 12:00 Urine Mucus Few /HPF 09/18/20 12:00 Urine Eosinophils None seen (None Seen) 09/19/20 03:15 Urine Creatinine 61.0 mg/dL (0.1-20.0) H 09/18/20 12:00 Urine Sodium 62 mmol/L 09/18/20 12:00 Random Vancomycin 12.7 ug/mL (0-40.0) 09/19/20 03:30 Valproic Acid 17.8 ug/mL (50-100) L 10/03/20 08:12 Heparin-induced Plt Ab Weak positive (Negative) H 09/22/20 15:12 UF Heparin High Dose 0 % Release 09/22/20 15:12 CORAZON UFH Low Dose 0.1 0 % Release 09/22/20 15:12 [place] UFH Low Dose 0.5 0 % Release 09/22/20 15:12 Lymph Enumerat CD4/CD8 0.70 (0.86-5.00) L 09/19/20 13:35 % CD3 Cells 79 % (57-85) 09/19/20 13:35 Absolute CD3 Count 175 cells/uL (840-3060) L 09/19/20 13:35 % CD4 Cells 31 % (30-61) 09/19/20 13:35 Absolute CD4 Count 70 cells/uL (490-1740) L 09/19/20 13:35 % CD8 Cells 45 % (12-42) H 09/19/20 13:35 Absolute CD8 Count 101 cells/uL (180-1170) L 09/19/20 13:35 % CD19 Cells 12 % (6-29) 09/19/20 13:35 Absolute CD19 Count 26 cells/uL (110-660) L 09/19/20 13:35 Coronavirus (PCR) Positive (Negative) A 10/06/20 Unknown Hepatitis A IgM Ab Non-reactive (NonReactive) 09/20/20 17:10 Hep Bs Antigen Non-reactive (Negative) 09/20/20 17:10 Hep B Core IgM Ab Non-reactive (NonReactive) 09/20/20 17:10 Hepatitis C Antibody Non-reactive (NonReactive) 09/20/20 17:10 HIV-1 RNA PCR copies/ml 67 Copies/mL H 09/19/20 13:35 HIV-1 RNA (PCR) log 1.83 Log cps/mL H 09/19/20 13:35 Gardner/IV: Voiding Method Indwelling Catheter Active Medications - Current Medications Current Medications: Generic Name Dose Route Start Last Admin Trade Name Freq PRN Reason Stop Dose Admin Acetaminophen 650 mg 09/17/20 13:52 09/30/20 21:12 Acetaminophen 325 Mg Tab PO 650 mg Q4H PRN Administration Pain MILD(1-3)/Fever >100.5/ANGEL Albuterol 2.5 mg 09/17/20 13:52 09/17/20 20:47 Albuterol 2.5 Mg/3 Ml Nebu IH 2.5 mg Q4HRT PRN Administration Shortness Of Breath Amiodarone HCl 200 mg 10/01/20 22:00 10/09/20 22:03 Amiodarone 200 Mg Tab PO 200 mg BID EDIE Administration Lipase/Protease/Amylase 1 each 09/20/20 13:10 Lipase 10,500/Protease 25,000/Amylase 43,750 (Units) Dr Patrick FEEDTUBE PRN PRN For Clogged Feeding Tube Apixaban 5 mg 10/05/20 22:00 10/09/20 22:03 Apixaban 5 Mg Tab PO 5 mg Q12HR EDIE Administration Ascorbic Acid 500 mg 09/20/20 22:00 10/09/20 22:10 Ascorbic Acid 500 Mg Tab PO 500 mg BID EDIE Administration Cholecalciferol 1,000 unit 09/21/20 10:00 10/09/20 09:41 Cholecalciferol (Vit D3) 1000 Unit (25 Mcg) Tab PO 1,000 unit QDAY EDIE Administration Docusate Sodium 100 mg 10/05/20 11:00 10/09/20 22:09 Docusate Sodium 100 Mg/10 Ml Oral Liqd PO Not Given BID EDIE Emtricitabine 200 mg 09/30/20 11:00 10/08/20 11:45 Emtricitabine 200 Mg Cap PO 200 mg Q48H EDIE Administration Famotidine 20 mg 09/24/20 10:00 10/09/20 09:07 Famotidine 20 Mg Tab PO 20 mg DAILY EDIE Administration Haloperidol Lactate 5 mg 10/01/20 11:34 10/04/20 13:32 Haloperidol Lactate 5 Mg/1 Ml Inj IM 5 mg Q6H PRN Administration Agitation Heparin Sodium (Porcine) 3,000 unit 09/20/20 10:06 Heparin 10,000 Units/10 Ml Vial IV VIRGIL PRN hemodialysis Sodium Chloride 100 mls @ 999 mls/hr 09/20/20 10:06 Nacl 0.9% IV VIRGIL PRN Hypotension Metoprolol Tartrate 5 mg 09/19/20 19:06 09/24/20 10:59 Metoprolol Tartrate 5 Mg/5 Ml Inj IV 5 mg Q8HR PRN Administration HR > 135 Minute Metoprolol Tartrate 12.5 mg 10/05/20 14:00 10/09/20 22:10 Metoprolol Tartrate 25 Mg Tab PO Not Given TID EDIE Midodrine 10 mg 10/07/20 08:00 10/09/20 17:20 Midodrine 5 Mg Tab PO 10 mg TID@0800,1200,1600 EDIE Administration Ondansetron HCl 4 mg 09/17/20 13:52 Ondansetron 4 Mg/2 Ml Inj IV Q8H PRN Nausea And Vomiting Quetiapine Fumarate 12.5 mg 10/03/20 22:00 10/09/20 22:03 Quetiapine 25 Mg Tab PO 12.5 mg QHS EDIE Administration Quetiapine Fumarate 12.5 mg 10/04/20 10:00 10/09/20 09:38 Quetiapine 25 Mg Tab PO 12.5 mg QAM EDIE Administration Simple Syrup 15 ml 09/20/20 13:10 Simple Syrup 15 Ml FEEDTUBE PRN PRN Hypoglycemia Simple Syrup 30 ml 09/20/20 13:10 Simple Syrup 15 Ml FEEDTUBE PRN PRN Hypoglycemia Sodium Bicarbonate 325 mg 09/20/20 13:10 Sodium Bicarbonate 325 Mg Tab FEEDTUBE PRN PRN For Clogged Feeding Tube Sodium Chloride 10 ml 09/17/20 22:00 10/09/20 22:03 Sodium Chloride 0.9% 10 Ml Flush Syringe IV 10 ml BID EDIE Administration Sodium Chloride 10 ml 09/17/20 13:52 09/24/20 09:15 Sodium Chloride 0.9% 10 Ml Flush Syringe IV 10 ml PRN PRN Administration LINE FLUSH Tamsulosin HCl 0.4 mg 10/07/20 13:00 10/09/20 09:07 Tamsulosin 0.4 Mg Cap PO 0.4 mg QDAY EDIE Administration Tenofovir Disoproxil Fumarate 300 mg 09/30/20 11:00 10/08/20 11:45 Tenofovir 300 Mg Tab PO 300 mg Q48H EDIE Administration Valproic Acid 250 mg 10/03/20 22:00 10/09/20 22:11 Valproic Acid 250 Mg Cap PO Not Given BID EDIE Zinc Sulfate 220 mg 09/21/20 10:00 10/09/20 09:07 Zinc Sulfate 220 Mg Cap PO 220 mg QDAY EDIE Administration Nutrition/Malnutrition Assess - Dietary Evaluation Nutrition/Malnutrition Findings: Nutrition Notes Start: 09/18/20 11:30 Freq: Status: Active Protocol: Document 10/08/20 11:36 AL (Rec: 10/08/20 11:47 AL [id number]) Co-Sign 10/08/20 11:36 LP Nutrition Notes Initial or Follow up Reassessment Current Diagnosis Acute Kidney Injury,Sepsis, Hypertension,Heart Failure, Respiratory Failure Other Pertinent Diagnosis COVID-19 (+), AMS, UTI, afib with RVR, HIV (+) Current Diet Pureed Renal Labs/Tests BUN 28 Cr 2.2 Pertinent Medications Colace Height 6 ft 1 in Weight 88.6 kg [place] Body Weight (kg) 83.63 BMI 25.7 Weight Status Overweight Subjective/Other Information F/U for intakes and ONS tolerance. Pt tolerateing pureed diet at about 60% and ONS at 50% (1 shake). 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 No Is Patient Ambulatory and/or Out of Bed No REE-([place]-[facility] Jeor-confined to bed) 2044.507 Calculation [facility] Additional Notes Pro needs: 73 - 88g (1 - 1.2 g /kg 73kg) Fluid needs 1-1.5L/day Nutrition Intervention Change Diet Order: Continue pureed renal diet Add Supplement/Snack (indicate name/kcal Nepro BID /protein ) Provides kCal: 850 Provides Protein (gm) 38 Goal #1 Meet at least 75% of estimated kcal and protein needs via PO Goal #2 Weight maintenance/weight gain Anticipated Discharge Needs: Pureed Renal Diet Follow-Up By: 10/13/20 Additional Comments F/U for stable intakes and ONS tolerance.
[2020-10-10 07:56] LABS: Calcium 8.5 mg/dL (8.4-10.2)
[2020-10-10] MEDS: METOPROLOL TARTRATE 25 MG TAB PO SCH ×3 (10:10→22:30)
[2020-10-10] MEDS: AMIODARONE 200 MG TAB PO SCH ×2 (10:11→22:30)
[2020-10-10] MEDS: DOCUSATE SODIUM 100 MG/10 ML ORAL LIQD PO SCH ×2 (10:11→22:31)
[2020-10-10] MEDS: MIDODRINE 5 MG TAB PO SCH ×3 (10:11→18:14)
[2020-10-10] MEDS: APIXABAN 5 MG TAB PO SCH ×2 (10:12→22:30)
[2020-10-10] MEDS: TAMSULOSIN 0.4 MG CAP PO SCH (10:12)
[2020-10-10] MEDS: VALPROIC ACID 250 MG CAP PO SCH ×2 (10:12→22:30)
[2020-10-10] MEDS: FAMOTIDINE 20 MG TAB PO SCH (10:13)
[2020-10-10] MEDS: QUEtiapine 25 MG TAB PO SCH ×2 (10:13→22:30)
[2020-10-10] MEDS: ZINC SULFATE 220 MG CAP PO SCH (10:14)
[2020-10-10] MEDS: CHOLECALCIFEROL (VIT D3) 1000 UNIT (25 mcg) TAB PO SCH (10:14)
[2020-10-10] MEDS: EMTRICITABINE 200 MG CAP PO SCH (10:14)
[2020-10-10] MEDS: ASCORBIC ACID 500 MG TAB PO SCH ×2 (10:14→22:30)
[2020-10-10] MEDS: DOLUTEGRAVIR 50 MG TAB PO SCH (10:14)
[2020-10-10] MEDS: TENOFOVIR 300 MG TAB PO SCH (11:10)
--- NOTE | 2020-10-10 12:13 | Progress Note ---
Assessment and Plan 1. Acute kidney injury: Vasomotor LOLI in the setting of shock. ATN likely. Renal US negative for hydro. Multiple bladder scan negative. Patient required hemodialysis due to significant decline in the renal function. Hemodialysis: 09/20, 09/21, 09/25. Monitor renal function. Creatinine leveled off. Renal prognosis is guarded. Avoid nephrotoxic agents. Meds dosage based on GFR. 2. FEN: Hyperkalemia, improved. Metabolic acidosis, improved, monitor. Monitor volume status and lytes. 3. Acute hypoxic respiratory failure: Covid test positive. Supplemental O2 as needed. 4. Acute CHF: Echocardiogram: EF 40-45%. CHF orderset / pathway. Monitor. 5. Atrial fibrillation with RVR: On Amio and Metoprolol. Followed by Cards. 6. Elevated troponin: Followed by Cards. 7. Coagulopathy: Trend. 8. Shock / Hypotension: Multifactorial, monitor. Off pressors. 9. Elevated Transaminases: Improved. 10. Metabolic encephalopathy: Monitor. 11. HIV. 12. Anemia, POA: Monitor. Subjective: Patient was seen and examined at the bedside. Objective: General appearance: well-developed, appears stated age, not in distress HEENT: ATNC, L pupil dilated Neck: trachea midline Respiratory: bilateral diminished breath sounds Heart: S1S2, irregular, no murmur Abdomen: soft, normoactive bowel sounds, not tender Integumentary: no obvious rash Ext: no edema Neurologic: alert, conversing, moving extremities Subjective Date of service: 10/10/20 Principal diagnosis: Acute Hypoxemic Resp Failure; COVID-19 infxn; Septic Shock; A-Fib with RVR Objective - Vital Signs Vital signs: Vital Signs - 12hr 10/10/20 10/10/20 10/10/20 04:21 11:04 11:09 Temperature 98.6 F 99.1 F Pulse Rate 88 Respiratory 16 16 Rate Blood Pressure 93/62 90/54 O2 Sat by Pulse 100 Oximetry - Lab 10/07/20 06:45 10/10/20 06:57 Most recent lab results ABG pH 7.508 (7.320-7.450) H 09/17/20 10:28 ABG O2 Saturation 93.4 (0-100) 09/17/20 10:28 Calcium 8.5 mg/dL (8.4-10.2) 10/10/20 06:57 Phosphorus 2.90 mg/dL (2.5-4.5) 09/26/20 07:06 Magnesium 1.70 mg/dL (1.7-2.3) 09/26/20 07:06 Urine Creatinine 61.0 mg/dL (0.1-20.0) H 09/18/20 12:00 Urine Sodium 62 mmol/L 09/18/20 12:00 Medications & Allergies - Medications Allergies/Adverse Reactions: Allergies heparin Adverse Reaction (Verified 09/29/20 16:33) thrombocytopenia PF4 Home Medications: Home Medications Medication Instructions Recorded Confirmed Last Taken Type AtorvaSTATin [Lipitor] 20 mg PO QHS 09/18/20 09/18/20 Unknown History Dolutegravir [Tivicay] 50 mg PO DAILY 09/18/20 09/18/20 Unknown History Emtricitabine/Tenofov Alafenam 1 tab PO DAILY 09/18/20 09/18/20 Unknown History [Descovy 200-25 mg (Nf)] allopurinoL [Zyloprim] 300 mg PO QDAY 09/18/20 09/18/20 Unknown History Amiodarone [Cordarone 200 MG TAB] 200 mg PO DAILY #60 tablet 10/01/20 Unknown Rx Apixaban [Eliquis] 2.5 mg PO Q12HR #60 tablet 10/01/20 Unknown Rx Ascorbic Acid [Vitamin C] 500 mg PO BID #60 tablet 10/01/20 Unknown Rx Cholecalciferol Vit D3 [Vitamin D3 1,000 unit PO QDAY #30 tablet 10/01/20 Unknown Rx 1,000 UNIT TAB] Famotidine [Pepcid] 20 mg PO DAILY #30 tablet 10/01/20 Unknown Rx Midodrine [Proamatine] 5 mg PO TID@0800,1200,1600 #90 10/01/20 Unknown Rx tablet QUEtiapine [SEROquel] 25 mg PO BID #30 tablet 10/01/20 Unknown Rx Zinc Sulfate 220 mg PO QDAY #30 capsule 10/01/20 Unknown Rx carvediloL [Coreg] 3.125 mg PO BID #60 tablet 10/01/20 Unknown Rx haloperidoL [Haldol] 2 mg PO Q8H PRN #30 tablet 10/01/20 Unknown Rx Active Medications: Generic Name Dose Route Start Last Admin Trade Name Freq PRN Reason Stop Dose Admin Acetaminophen 650 mg 09/17/20 13:52 09/30/20 21:12 Acetaminophen 325 Mg Tab PO 650 mg Q4H PRN Administration Pain MILD(1-3)/Fever >100.5/ANGEL Albuterol 2.5 mg 09/17/20 13:52 09/17/20 20:47 Albuterol 2.5 Mg/3 Ml Nebu IH 2.5 mg Q4HRT PRN Administration Shortness Of Breath Amiodarone HCl 200 mg 10/01/20 22:00 10/10/20 10:11 Amiodarone 200 Mg Tab PO 200 mg BID EDIE Administration Lipase/Protease/Amylase 1 each 09/20/20 13:10 Lipase 10,500/Protease 25,000/Amylase 43,750 (Units) Dr Patrick FEEDTUBE PRN PRN For Clogged Feeding Tube Apixaban 5 mg 10/05/20 22:00 10/10/20 10:12 Apixaban 5 Mg Tab PO 5 mg Q12HR EDIE Administration Ascorbic Acid 500 mg 09/20/20 22:00 10/10/20 10:14 Ascorbic Acid 500 Mg Tab PO 500 mg BID EDIE Administration Cholecalciferol 1,000 unit 09/21/20 10:00 10/10/20 10:14 Cholecalciferol (Vit D3) 1000 Unit (25 Mcg) Tab PO 1,000 unit QDAY EDIE Administration Docusate Sodium 100 mg 10/05/20 11:00 10/10/20 10:11 Docusate Sodium 100 Mg/10 Ml Oral Liqd PO Not Given BID EDIE Emtricitabine 200 mg 09/30/20 11:00 10/10/20 10:14 Emtricitabine 200 Mg Cap PO 200 mg Q48H EDIE Administration Famotidine 20 mg 09/24/20 10:00 10/10/20 10:13 Famotidine 20 Mg Tab PO 20 mg DAILY EDIE Administration Haloperidol Lactate 5 mg 10/01/20 11:34 10/04/20 13:32 Haloperidol Lactate 5 Mg/1 Ml Inj IM 5 mg Q6H PRN Administration Agitation Heparin Sodium (Porcine) 3,000 unit 09/20/20 10:06 Heparin 10,000 Units/10 Ml Vial IV VIRGIL PRN hemodialysis Sodium Chloride 100 mls @ 999 mls/hr 09/20/20 10:06 Nacl 0.9% IV VIRGIL PRN Hypotension Metoprolol Tartrate 5 mg 09/19/20 19:06 09/24/20 10:59 Metoprolol Tartrate 5 Mg/5 Ml Inj IV 5 mg Q8HR PRN Administration HR > 135 Minute Metoprolol Tartrate 12.5 mg 10/05/20 14:00 10/10/20 10:10 Metoprolol Tartrate 25 Mg Tab PO 12.5 mg TID EDIE Administration Midodrine 10 mg 10/07/20 08:00 10/10/20 11:10 Midodrine 5 Mg Tab PO 10 mg TID@0800,1200,1600 EDIE Administration Ondansetron HCl 4 mg 09/17/20 13:52 Ondansetron 4 Mg/2 Ml Inj IV Q8H PRN Nausea And Vomiting Quetiapine Fumarate 12.5 mg 10/03/20 22:00 10/09/20 22:03 Quetiapine 25 Mg Tab PO 12.5 mg QHS EDIE Administration Quetiapine Fumarate 12.5 mg 10/04/20 10:00 10/10/20 10:13 Quetiapine 25 Mg Tab PO 12.5 mg QAM EDIE Administration Simple Syrup 15 ml 09/20/20 13:10 Simple Syrup 15 Ml FEEDTUBE PRN PRN Hypoglycemia Simple Syrup 30 ml 09/20/20 13:10 Simple Syrup 15 Ml FEEDTUBE PRN PRN Hypoglycemia Sodium Bicarbonate 325 mg 09/20/20 13:10 Sodium Bicarbonate 325 Mg Tab FEEDTUBE PRN PRN For Clogged Feeding Tube Sodium Chloride 10 ml 09/17/20 22:00 10/10/20 10:13 Sodium Chloride 0.9% 10 Ml Flush Syringe IV 10 ml BID EDIE Administration Sodium Chloride 10 ml 09/17/20 13:52 09/24/20 09:15 Sodium Chloride 0.9% 10 Ml Flush Syringe IV 10 ml PRN PRN Administration LINE FLUSH Tamsulosin HCl 0.4 mg 10/07/20 13:00 10/10/20 10:12 Tamsulosin 0.4 Mg Cap PO 0.4 mg QDAY EDIE Administration Tenofovir Disoproxil Fumarate 300 mg 09/30/20 11:00 10/10/20 11:10 Tenofovir 300 Mg Tab PO 300 mg Q48H EDIE Administration Valproic Acid 250 mg 10/03/20 22:00 10/10/20 10:12 Valproic Acid 250 Mg Cap PO 250 mg BID EDIE Administration Zinc Sulfate 220 mg 09/21/20 10:00 10/10/20 10:14 Zinc Sulfate 220 Mg Cap PO 220 mg QDAY EDIE Administration
--- NOTE | 2020-10-10 14:20 | Progress Note ---
Assessment and Plan Acute hypoxemic respiratory failure. Atrial fibrillation with rapid ventricular response. Gram negative bacteremia Acute congestive heart failure exacerbation. Acute on chronic kidney injury. Anemia that is microcytic. Coagulopathy appears to be acquired. Respiratory alkalosis. Mild metabolic acidosis. Possible severe sepsis with shock due to a urinary tract infection. Urinary tract infection (i do feel that despite his CHF history he is septic now and with relative IVVD and will benefit from gentle hydration acutely - advance diet per PROFESSOR OF NURSING - no new issues today, continue care as below; - continue to wean supplemental oxygen for target O2 sat's > 92% acutely - Aspiration precautions - prn bronchodilators with pulmonary hygiene per RT - continue accuchecks with glycemic control per SSI for target blood glucose of < 180 mg/dL; avoid hypoglycemia - avoid nephrotoxins, renally dose all medications - continue to avoid benzodiazepine's, reduce the possibility of delirium - prn analgesia per pain score - Maintenance of sleep-wake cycle, avoid delirium - G.I. & VTE prophylaxis - PT/OT/ROM exercises - continue mobility protocols for pressure ulcer prophylaxis - Monitor hemodynamics closely - continue other care per attending / other consultants - discharge planning ongoing concurrently COVID SPECIFIC INTERVENTIONS - Remdesivir as per ID/Pulmonary developed protocols (not given due to LOLI) - systemic steroids for severe COVID-19 infection (s/p Decadron) - follow repeat COVID tests results - zinc and vitamin C supplementation - Monitor inflammatory markers per facility protocol - ferritin, Ddimer, CRP - therapeutic anticoagulation per system Protocol based on d-dimer and clinical considerations - Continue contact and airborne isolation .... Re-evaluate in am & prn Subjective Date of service: 10/10/20 Principal diagnosis: Acute Hypoxemic Resp Failure; COVID-19 infxn; Septic Shock; A-Fib with RVR Interval history: Patient is seen today for: Acute hypoxemic respiratory failure; A-fib with RVR; AE-CHF; LOLI on CKD; Severe sepsis with shock; UTI Seen and examined at bedside; 24hour events reviewed; nursing and respiratory care staff consulted; no adverse overnight events reported to me; resting peacefully in bed;c Objective Vital Signs - 12hr 10/10/20 10/10/20 10/10/20 04:21 11:04 11:09 Temperature 98.6 F 99.1 F Pulse Rate 88 Respiratory 16 16 Rate Blood Pressure 93/62 90/54 O2 Sat by Pulse 100 Oximetry Constitutional: no acute distress, alert, other (elderly male without increased respiratory effort at rest) Eyes: non-icteric ENT: oropharynx moist Neck: supple, no lymphadenopathy, no JVD Effort: normal Ascultation: Bilateral: clear, rhonchi, other (right SCVL Trialysis catheter) Percussion: Bilateral: not dull Cardiovascular: irregular rhythm Gastrointestinal: normoactive bowel sounds, soft, non-tender, non-distended Integumentary: normal Extremities: no cyanosis, no edema, pulses normal, no ischemia or petechiae Neurologic: non-focal exam (grossly), pupils equal and round, CN II-XII normal, motor strength normal and Psychiatric: mood appropriate, affect normal CBC and BMP: 10/07/20 06:45 10/10/20 06:57 ABG, PT/INR, D-dimer: ABG ABG pH 7.508 (7.320-7.450) H 09/17/20 10:28 POC ABG pCO2 22.8 mmHg (32.0-48.0) L 09/17/20 10:28 POC ABG pO2 66.8 mmHg (83-108) L 09/17/20 10:28 POC ABG HCO3 17.7 09/17/20 10:28 ABG O2 Saturation 93.4 (0-100) 09/17/20 10:28 PT/INR, D-dimer PT 15.7 Sec. (12.2-14.9) H 09/24/20 12:13 INR 1.27 (0.87-1.13) H 09/24/20 12:13 D-Dimer 1772.86 ng/mlDDU (0-234) H 09/24/20 05:00 Abnormal lab findings: Abnormal Labs 09/17/20 09/17/20 09/17/20 10:28 10:47 10:47 WBC 11.1 H RBC 3.44 L Hgb 11.2 L Hct 32.8 L MCV 95 H MCH MCHC RDW Plt Count Lymph % (Auto) [place] % (Auto) Lymph # (Auto) [place] # (Auto) Seg Neutrophils % Seg Neuts % (Manual) Lymphocytes % (Manual) 4.0 L Monocytes % (Manual) Nucleated RBC % Seg Neutrophils # Seg Neutrophils # Man 10.7 H Abs Lymphs (Manual) Lymphocytes # (Manual) 0.4 L PT 32.9 H INR 3.16 H APTT 51.1 H D-Dimer Heparin Anti-Xa Level ABG pH 7.508 H POC ABG pCO2 22.8 L POC ABG pO2 66.8 L ABG Oxyhemoglobin 92.7 L ABG Sodium 127.4 L ABG Potassium 4.7 H ABG Glucose 121 H Carboxyhemoglobin 0.4 L Sodium Potassium Chloride Carbon Dioxide BUN Creatinine Glucose POC Glucose Calcium Phosphorus Ferritin Total Bilirubin AST ALT Alkaline Phosphatase Lactate Dehydrogenase Total Creatine Kinase Troponin T C-Reactive Protein NT-Pro-B Natriuret Pep Serum Total Protein Total Protein Albumin Cholesterol LDL Cholesterol Direct HDL Cholesterol PTH Intact Arterial Blood Glucose 121 H Urine WBC (Auto) Urine Creatinine Valproic Acid Heparin-induced Plt Ab Lymph Enumerat CD4/CD8 Absolute CD3 Count Absolute CD4 Count % CD8 Cells Absolute CD8 Count Absolute CD19 Count Coronavirus (PCR) HIV-1 RNA PCR copies/ml HIV-1 RNA (PCR) log 09/17/20 09/17/20 09/17/20 10:47 10:47 13:54 WBC RBC Hgb Hct MCV MCH MCHC RDW Plt Count Lymph % (Auto) [place] % (Auto) Lymph # (Auto) [place] # (Auto) Seg Neutrophils % Seg Neuts % (Manual) Lymphocytes % (Manual) Monocytes % (Manual) Nucleated RBC % Seg Neutrophils # Seg Neutrophils # Man Abs Lymphs (Manual) Lymphocytes # (Manual) PT INR APTT D-Dimer Heparin Anti-Xa Level ABG pH POC ABG pCO2 POC ABG pO2 ABG Oxyhemoglobin ABG Sodium ABG Potassium ABG Glucose Carboxyhemoglobin Sodium 125 L Potassium Chloride 95.3 L Carbon Dioxide 17 L BUN 64 H Creatinine 4.6 H D Glucose 104 H POC Glucose Calcium Phosphorus Ferritin Total Bilirubin AST 69 H ALT Alkaline Phosphatase Lactate Dehydrogenase Total Creatine Kinase Troponin T 0.061 H D 0.058 H C-Reactive Protein NT-Pro-B Natriuret Pep 49744 H Serum Total Protein Total Protein Albumin 1.9 L Cholesterol 48 L LDL Cholesterol Direct 4 L HDL Cholesterol 9 L PTH Intact Arterial Blood Glucose Urine WBC (Auto) Urine Creatinine Valproic Acid Heparin-induced Plt Ab Lymph Enumerat CD4/CD8 Absolute CD3 Count Absolute CD4 Count % CD8 Cells Absolute CD8 Count Absolute CD19 Count Coronavirus (PCR) HIV-1 RNA PCR copies/ml HIV-1 RNA (PCR) log 09/17/20 09/17/20 09/17/20 16:36 17:35 17:35 WBC RBC 3.25 L Hgb 10.7 L Hct 31.1 L MCV 96 H MCH 33 H MCHC RDW Plt Count Lymph % (Auto) [place] % (Auto) Lymph # (Auto) [place] # (Auto) Seg Neutrophils % Seg Neuts % (Manual) Lymphocytes % (Manual) Monocytes % (Manual) Nucleated RBC % Seg Neutrophils # Seg Neutrophils # Man Abs Lymphs (Manual) Lymphocytes # (Manual) PT 31.9 H INR 3.04 H APTT 50.9 H D-Dimer Heparin Anti-Xa Level ABG pH POC ABG pCO2 POC ABG pO2 ABG Oxyhemoglobin ABG Sodium ABG Potassium ABG Glucose Carboxyhemoglobin Sodium Potassium Chloride Carbon Dioxide BUN Creatinine Glucose POC Glucose Calcium Phosphorus Ferritin Total Bilirubin AST ALT Alkaline Phosphatase Lactate Dehydrogenase Total Creatine Kinase Troponin T 0.057 H C-Reactive Protein NT-Pro-B Natriuret Pep Serum Total Protein Total Protein Albumin Cholesterol LDL Cholesterol Direct HDL Cholesterol PTH Intact Arterial Blood Glucose Urine WBC (Auto) Urine Creatinine Valproic Acid Heparin-induced Plt Ab Lymph Enumerat CD4/CD8 Absolute CD3 Count Absolute CD4 Count % CD8 Cells Absolute CD8 Count Absolute CD19 Count Coronavirus (PCR) HIV-1 RNA PCR copies/ml HIV-1 RNA (PCR) log 09/17/20 09/18/20 09/18/20 17:35 03:19 03:19 WBC RBC 3.32 L Hgb 10.9 L Hct 32.0 L MCV 96 H MCH 33 H MCHC RDW Plt Count 138 L Lymph % (Auto) [place] % (Auto) Lymph # (Auto) [place] # (Auto) Seg Neutrophils % Seg Neuts % (Manual) 95.0 H Lymphocytes % (Manual) 3.0 L Monocytes % (Manual) Nucleated RBC % Seg Neutrophils # Seg Neutrophils # Man 8.1 H Abs Lymphs (Manual) Lymphocytes # (Manual) 0.3 L PT INR APTT D-Dimer Heparin Anti-Xa Level ABG pH POC ABG pCO2 POC ABG pO2 ABG Oxyhemoglobin ABG Sodium ABG Potassium ABG Glucose Carboxyhemoglobin Sodium Potassium Chloride Carbon Dioxide 16 L BUN 70 H Creatinine 4.6 H 4.7 H Glucose 104 H POC Glucose Calcium 8.2 L Phosphorus Ferritin Total Bilirubin 1.60 H AST 128 H ALT 67 H Alkaline Phosphatase Lactate Dehydrogenase Total Creatine Kinase Troponin T C-Reactive Protein NT-Pro-B Natriuret Pep Serum Total Protein Total Protein 5.2 L D Albumin 2.5 L Cholesterol LDL Cholesterol Direct HDL Cholesterol PTH Intact Arterial Blood Glucose Urine WBC (Auto) Urine Creatinine Valproic Acid Heparin-induced Plt Ab Lymph Enumerat CD4/CD8 Absolute CD3 Count Absolute CD4 Count % CD8 Cells Absolute CD8 Count Absolute CD19 Count Coronavirus (PCR) HIV-1 RNA PCR copies/ml HIV-1 RNA (PCR) log 09/18/20 09/18/20 09/18/20 09:39 12:00 12:00 WBC RBC Hgb Hct MCV MCH MCHC RDW Plt Count Lymph % (Auto) [place] % (Auto) Lymph # (Auto) [place] # (Auto) Seg Neutrophils % Seg Neuts % (Manual) Lymphocytes % (Manual) Monocytes % (Manual) Nucleated RBC % Seg Neutrophils # Seg Neutrophils # Man Abs Lymphs (Manual) Lymphocytes # (Manual) PT INR APTT D-Dimer Heparin Anti-Xa Level ABG pH POC ABG pCO2 POC ABG pO2 ABG Oxyhemoglobin ABG Sodium ABG Potassium ABG Glucose Carboxyhemoglobin Sodium Potassium Chloride Carbon Dioxide BUN Creatinine Glucose POC Glucose Calcium Phosphorus Ferritin Total Bilirubin AST ALT Alkaline Phosphatase Lactate Dehydrogenase Total Creatine Kinase Troponin T C-Reactive Protein NT-Pro-B Natriuret Pep Serum Total Protein Total Protein Albumin Cholesterol LDL Cholesterol Direct HDL Cholesterol PTH Intact Arterial Blood Glucose Urine WBC (Auto) 71.0 H Urine Creatinine 61.0 H Valproic Acid Heparin-induced Plt Ab Lymph Enumerat CD4/CD8 Absolute CD3 Count Absolute CD4 Count % CD8 Cells Absolute CD8 Count Absolute CD19 Count Coronavirus (PCR) Positive A HIV-1 RNA PCR copies/ml HIV-1 RNA (PCR) log 09/18/20 09/18/20 09/18/20 15:07 15:07 18:33 WBC RBC Hgb 10.7 L Hct 31.3 L MCV MCH MCHC RDW Plt Count Lymph % (Auto) [place] % (Auto) Lymph # (Auto) [place] # (Auto) Seg Neutrophils % Seg Neuts % (Manual) Lymphocytes % (Manual) Monocytes % (Manual) Nucleated RBC % Seg Neutrophils # Seg Neutrophils # Man Abs Lymphs (Manual) Lymphocytes # (Manual) PT 20.3 H INR 1.73 H APTT 40.8 H D-Dimer Heparin Anti-Xa Level 1.09 H ABG pH POC ABG pCO2 POC ABG pO2 ABG Oxyhemoglobin ABG Sodium ABG Potassium ABG Glucose Carboxyhemoglobin Sodium Potassium Chloride Carbon Dioxide BUN Creatinine Glucose POC Glucose Calcium Phosphorus Ferritin Total Bilirubin AST ALT Alkaline Phosphatase Lactate Dehydrogenase Total Creatine Kinase Troponin T C-Reactive Protein NT-Pro-B Natriuret Pep Serum Total Protein Total Protein Albumin Cholesterol LDL Cholesterol Direct HDL Cholesterol PTH Intact Arterial Blood Glucose Urine WBC (Auto) Urine Creatinine Valproic Acid Heparin-induced Plt Ab Lymph Enumerat CD4/CD8 Absolute CD3 Count Absolute CD4 Count % CD8 Cells Absolute CD8 Count Absolute CD19 Count Coronavirus (PCR) HIV-1 RNA PCR copies/ml HIV-1 RNA (PCR) log 09/19/20 09/19/20 09/19/20 03:30 03:30 03:30 WBC RBC 3.29 L Hgb 10.9 L Hct 30.9 L MCV MCH 33 H MCHC 35 H RDW Plt Count Lymph % (Auto) [place] % (Auto) Lymph # (Auto) [place] # (Auto) Seg Neutrophils % Seg Neuts % (Manual) Lymphocytes % (Manual) Monocytes % (Manual) Nucleated RBC % Seg Neutrophils # Seg Neutrophils # Man Abs Lymphs (Manual) Lymphocytes # (Manual) PT INR APTT D-Dimer Heparin Anti-Xa Level ABG pH POC ABG pCO2 POC ABG pO2 ABG Oxyhemoglobin ABG Sodium ABG Potassium ABG Glucose Carboxyhemoglobin Sodium 133 L Potassium Chloride Carbon Dioxide 17 L BUN 94 H Creatinine 5.0 H Glucose 120 H POC Glucose Calcium Phosphorus 6.30 H Ferritin Total Bilirubin 2.40 H AST 163 H ALT 109 H Alkaline Phosphatase 160 H Lactate Dehydrogenase Total Creatine Kinase 20 L Troponin T C-Reactive Protein NT-Pro-B Natriuret Pep Serum Total Protein Total Protein 6.2 L Albumin 2.0 L Cholesterol LDL Cholesterol Direct HDL Cholesterol PTH Intact 161.4 H Arterial Blood Glucose Urine WBC (Auto) Urine Creatinine Valproic Acid Heparin-induced Plt Ab Lymph Enumerat CD4/CD8 Absolute CD3 Count Absolute CD4 Count % CD8 Cells Absolute CD8 Count Absolute CD19 Count Coronavirus (PCR) HIV-1 RNA PCR copies/ml HIV-1 RNA (PCR) log 09/19/20 09/19/20 09/19/20 06:35 13:35 13:35 WBC RBC Hgb Hct MCV MCH MCHC RDW Plt Count Lymph % (Auto) [place] % (Auto) Lymph # (Auto) [place] # (Auto) Seg Neutrophils % Seg Neuts % (Manual) Lymphocytes % (Manual) Monocytes % (Manual) Nucleated RBC % Seg Neutrophils # Seg Neutrophils # Man Abs Lymphs (Manual) 223 L Lymphocytes # (Manual) PT INR APTT D-Dimer Heparin Anti-Xa Level ABG pH POC ABG pCO2 POC ABG pO2 ABG Oxyhemoglobin ABG Sodium ABG Potassium ABG Glucose Carboxyhemoglobin Sodium Potassium Chloride Carbon Dioxide BUN Creatinine Glucose POC Glucose 123 H Calcium Phosphorus Ferritin Total Bilirubin AST ALT Alkaline Phosphatase Lactate Dehydrogenase Total Creatine Kinase Troponin T C-Reactive Protein NT-Pro-B Natriuret Pep Serum Total Protein Total Protein Albumin Cholesterol LDL Cholesterol Direct HDL Cholesterol PTH Intact Arterial Blood Glucose Urine WBC (Auto) Urine Creatinine Valproic Acid Heparin-induced Plt Ab Lymph Enumerat CD4/CD8 0.70 L Absolute CD3 Count 175 L Absolute CD4 Count 70 L % CD8 Cells 45 H Absolute CD8 Count 101 L Absolute CD19 Count 26 L Coronavirus (PCR) HIV-1 RNA PCR copies/ml 67 H HIV-1 RNA (PCR) log 1.83 H 09/19/20 09/20/20 09/20/20 23:37 04:00 04:00 WBC RBC 3.43 L Hgb 11.1 L Hct 32.2 L MCV MCH MCHC RDW Plt Count 131 L Lymph % (Auto) [place] % (Auto) Lymph # (Auto) [place] # (Auto) Seg Neutrophils % Seg Neuts % (Manual) 88.0 H Lymphocytes % (Manual) 3.0 L Monocytes % (Manual) 9.0 H Nucleated RBC % Seg Neutrophils # Seg Neutrophils # Man 8.2 H Abs Lymphs (Manual) Lymphocytes # (Manual) 0.3 L PT INR APTT D-Dimer Heparin Anti-Xa Level 0.10 L ABG pH POC ABG pCO2 POC ABG pO2 ABG Oxyhemoglobin ABG Sodium ABG Potassium ABG Glucose Carboxyhemoglobin Sodium Potassium Chloride Carbon Dioxide BUN Creatinine Glucose POC Glucose 135 H Calcium Phosphorus Ferritin Total Bilirubin AST ALT Alkaline Phosphatase Lactate Dehydrogenase Total Creatine Kinase Troponin T C-Reactive Protein NT-Pro-B Natriuret Pep Serum Total Protein Total Protein Albumin Cholesterol LDL Cholesterol Direct HDL Cholesterol PTH Intact Arterial Blood Glucose Urine WBC (Auto) Urine Creatinine Valproic Acid Heparin-induced Plt Ab Lymph Enumerat CD4/CD8 Absolute CD3 Count Absolute CD4 Count % CD8 Cells Absolute CD8 Count Absolute CD19 Count Coronavirus (PCR) HIV-1 RNA PCR copies/ml HIV-1 RNA (PCR) log 09/20/20 09/20/20 09/20/20 04:00 05:37 11:20 WBC RBC Hgb Hct MCV MCH MCHC RDW Plt Count Lymph % (Auto) [place] % (Auto) Lymph # (Auto) [place] # (Auto) Seg Neutrophils % Seg Neuts % (Manual) Lymphocytes % (Manual) Monocytes % (Manual) Nucleated RBC % Seg Neutrophils # Seg Neutrophils # Man Abs Lymphs (Manual) Lymphocytes # (Manual) PT INR APTT D-Dimer Heparin Anti-Xa Level ABG pH POC ABG pCO2 POC ABG pO2 ABG Oxyhemoglobin ABG Sodium ABG Potassium ABG Glucose Carboxyhemoglobin Sodium Potassium Chloride Carbon Dioxide 16 L BUN 119 H Creatinine 6.2 H Glucose 136 H POC Glucose 137 H 108 H Calcium Phosphorus Ferritin Total Bilirubin AST ALT Alkaline Phosphatase Lactate Dehydrogenase Total Creatine Kinase Troponin T C-Reactive Protein NT-Pro-B Natriuret Pep Serum Total Protein Total Protein Albumin Cholesterol LDL Cholesterol Direct HDL Cholesterol PTH Intact Arterial Blood Glucose Urine WBC (Auto) Urine Creatinine Valproic Acid Heparin-induced Plt Ab Lymph Enumerat CD4/CD8 Absolute CD3 Count Absolute CD4 Count % CD8 Cells Absolute CD8 Count Absolute CD19 Count Coronavirus (PCR) HIV-1 RNA PCR copies/ml HIV-1 RNA (PCR) log 09/20/20 09/20/20 09/20/20 17:10 17:10 17:10 WBC RBC Hgb Hct MCV MCH MCHC RDW Plt Count Lymph % (Auto) [place] % (Auto) Lymph # (Auto) [place] # (Auto) Seg Neutrophils % Seg Neuts % (Manual) Lymphocytes % (Manual) Monocytes % (Manual) Nucleated RBC % Seg Neutrophils # Seg Neutrophils # Man Abs Lymphs (Manual) Lymphocytes # (Manual) PT INR APTT D-Dimer 4271.58 H Heparin Anti-Xa Level ABG pH POC ABG pCO2 POC ABG pO2 ABG Oxyhemoglobin ABG Sodium ABG Potassium ABG Glucose Carboxyhemoglobin Sodium Potassium Chloride Carbon Dioxide BUN Creatinine 6.0 H Glucose POC Glucose Calcium Phosphorus Ferritin 696.6 H Total Bilirubin AST ALT Alkaline Phosphatase Lactate Dehydrogenase Total Creatine Kinase Troponin T C-Reactive Protein NT-Pro-B Natriuret Pep Serum Total Protein Total Protein Albumin Cholesterol LDL Cholesterol Direct HDL Cholesterol PTH Intact Arterial Blood Glucose Urine WBC (Auto) Urine Creatinine Valproic Acid Heparin-induced Plt Ab Lymph Enumerat CD4/CD8 Absolute CD3 Count Absolute CD4 Count % CD8 Cells Absolute CD8 Count Absolute CD19 Count Coronavirus (PCR) HIV-1 RNA PCR copies/ml HIV-1 RNA (PCR) log 09/20/20 09/20/20 09/20/20 17:10 18:21 23:14 WBC RBC Hgb Hct MCV MCH MCHC RDW Plt Count Lymph % (Auto) [place] % (Auto) Lymph # (Auto) [place] # (Auto) Seg Neutrophils % Seg Neuts % (Manual) Lymphocytes % (Manual) Monocytes % (Manual) Nucleated RBC % Seg Neutrophils # Seg Neutrophils # Man Abs Lymphs (Manual) Lymphocytes # (Manual) PT INR APTT D-Dimer Heparin Anti-Xa Level ABG pH POC ABG pCO2 POC ABG pO2 ABG Oxyhemoglobin ABG Sodium ABG Potassium ABG Glucose Carboxyhemoglobin Sodium Potassium Chloride Carbon Dioxide BUN Creatinine Glucose POC Glucose 129 H 170 H Calcium Phosphorus Ferritin Total Bilirubin AST ALT Alkaline Phosphatase Lactate Dehydrogenase 209 H Total Creatine Kinase Troponin T C-Reactive Protein 10.60 H NT-Pro-B Natriuret Pep Serum Total Protein Total Protein Albumin Cholesterol LDL Cholesterol Direct HDL Cholesterol PTH Intact Arterial Blood Glucose Urine WBC (Auto) Urine Creatinine Valproic Acid Heparin-induced Plt Ab Lymph Enumerat CD4/CD8 Absolute CD3 Count Absolute CD4 Count % CD8 Cells Absolute CD8 Count Absolute CD19 Count Coronavirus (PCR) HIV-1 RNA PCR copies/ml HIV-1 RNA (PCR) log 09/21/20 09/21/20 09/21/20 05:35 17:09 23:18 WBC RBC Hgb Hct MCV MCH MCHC RDW Plt Count Lymph % (Auto) [place] % (Auto) Lymph # (Auto) [place] # (Auto) Seg Neutrophils % Seg Neuts % (Manual) Lymphocytes % (Manual) Monocytes % (Manual) Nucleated RBC % Seg Neutrophils # Seg Neutrophils # Man Abs Lymphs (Manual) Lymphocytes # (Manual) PT INR APTT D-Dimer Heparin Anti-Xa Level ABG pH POC ABG pCO2 POC ABG pO2 ABG Oxyhemoglobin ABG Sodium ABG Potassium ABG Glucose Carboxyhemoglobin Sodium Potassium Chloride Carbon Dioxide BUN Creatinine Glucose POC Glucose 170 H 140 H 139 H Calcium Phosphorus Ferritin Total Bilirubin AST ALT Alkaline Phosphatase Lactate Dehydrogenase Total Creatine Kinase Troponin T C-Reactive Protein NT-Pro-B Natriuret Pep Serum Total Protein Total Protein Albumin Cholesterol LDL Cholesterol Direct HDL Cholesterol PTH Intact Arterial Blood Glucose Urine WBC (Auto) Urine Creatinine Valproic Acid Heparin-induced Plt Ab Lymph Enumerat CD4/CD8 Absolute CD3 Count Absolute CD4 Count % CD8 Cells Absolute CD8 Count Absolute CD19 Count Coronavirus (PCR) HIV-1 RNA PCR copies/ml HIV-1 RNA (PCR) log 09/21/20 09/21/20 09/21/20 Unknown Unknown Unknown WBC RBC 3.56 L Hgb 11.3 L Hct 33.2 L MCV MCH MCHC RDW Plt Count 125 L Lymph % (Auto) [place] % (Auto) Lymph # (Auto) [place] # (Auto) Seg Neutrophils % Seg Neuts % (Manual) 90.0 H Lymphocytes % (Manual) 8.0 L Monocytes % (Manual) Nucleated RBC % 1.0 H Seg Neutrophils # Seg Neutrophils # Man 9.4 H Abs Lymphs (Manual) Lymphocytes # (Manual) 0.8 L PT 16.8 H INR 1.36 H APTT D-Dimer Heparin Anti-Xa Level ABG pH POC ABG pCO2 POC ABG pO2 ABG Oxyhemoglobin ABG Sodium ABG Potassium ABG Glucose Carboxyhemoglobin Sodium Potassium Chloride Carbon Dioxide BUN 83 H Creatinine 4.3 H Glucose 163 H POC Glucose Calcium Phosphorus Ferritin Total Bilirubin 2.40 H AST ALT 57 H Alkaline Phosphatase < 5 L Lactate Dehydrogenase Total Creatine Kinase Troponin T C-Reactive Protein NT-Pro-B Natriuret Pep Serum Total Protein Total Protein Albumin 1.9 L Cholesterol LDL Cholesterol Direct HDL Cholesterol PTH Intact Arterial Blood Glucose Urine WBC (Auto) Urine Creatinine Valproic Acid Heparin-induced Plt Ab Lymph Enumerat CD4/CD8 Absolute CD3 Count Absolute CD4 Count % CD8 Cells Absolute CD8 Count Absolute CD19 Count Coronavirus (PCR) HIV-1 RNA PCR copies/ml HIV-1 RNA (PCR) log 09/22/20 09/22/20 09/22/20 05:38 05:38 05:38 WBC 15.8 H RBC 3.36 L Hgb 10.8 L Hct 31.0 L MCV MCH MCHC 35 H RDW Plt Count 68 L Lymph % (Auto) 3.1 L [place] % (Auto) 10.7 H Lymph # (Auto) 0.5 L [place] # (Auto) 1.7 H Seg Neutrophils % 85.9 H Seg Neuts % (Manual) Lymphocytes % (Manual) Monocytes % (Manual) Nucleated RBC % Seg Neutrophils # 13.6 H Seg Neutrophils # Man Abs Lymphs (Manual) Lymphocytes # (Manual) PT INR APTT D-Dimer 3281.49 H Heparin Anti-Xa Level ABG pH POC ABG pCO2 POC ABG pO2 ABG Oxyhemoglobin ABG Sodium ABG Potassium ABG Glucose Carboxyhemoglobin Sodium Potassium Chloride Carbon Dioxide BUN 61 H Creatinine 3.1 H Glucose 129 H POC Glucose Calcium Phosphorus Ferritin Total Bilirubin AST ALT Alkaline Phosphatase Lactate Dehydrogenase 277 H Total Creatine Kinase Troponin T C-Reactive Protein 6.60 H NT-Pro-B Natriuret Pep Serum Total Protein Total Protein Albumin Cholesterol LDL Cholesterol Direct HDL Cholesterol PTH Intact Arterial Blood Glucose Urine WBC (Auto) Urine Creatinine Valproic Acid Heparin-induced Plt Ab Lymph Enumerat CD4/CD8 Absolute CD3 Count Absolute CD4 Count % CD8 Cells Absolute CD8 Count Absolute CD19 Count Coronavirus (PCR) HIV-1 RNA PCR copies/ml HIV-1 RNA (PCR) log 09/22/20 09/22/20 09/22/20 05:38 05:44 11:26 WBC RBC Hgb Hct MCV MCH MCHC RDW Plt Count Lymph % (Auto) [place] % (Auto) Lymph # (Auto) [place] # (Auto) Seg Neutrophils % Seg Neuts % (Manual) Lymphocytes % (Manual) Monocytes % (Manual) Nucleated RBC % Seg Neutrophils # Seg Neutrophils # Man Abs Lymphs (Manual) Lymphocytes # (Manual) PT INR APTT D-Dimer Heparin Anti-Xa Level ABG pH POC ABG pCO2 POC ABG pO2 ABG Oxyhemoglobin ABG Sodium ABG Potassium ABG Glucose Carboxyhemoglobin Sodium Potassium Chloride Carbon Dioxide BUN Creatinine Glucose POC Glucose 112 H 131 H Calcium Phosphorus Ferritin 927.8 H Total Bilirubin AST ALT Alkaline Phosphatase Lactate Dehydrogenase Total Creatine Kinase Troponin T C-Reactive Protein NT-Pro-B Natriuret Pep Serum Total Protein Total Protein Albumin Cholesterol LDL Cholesterol Direct HDL Cholesterol PTH Intact Arterial Blood Glucose Urine WBC (Auto) Urine Creatinine Valproic Acid Heparin-induced Plt Ab Lymph Enumerat CD4/CD8 Absolute CD3 Count Absolute CD4 Count % CD8 Cells Absolute CD8 Count Absolute CD19 Count Coronavirus (PCR) HIV-1 RNA PCR copies/ml HIV-1 RNA (PCR) log 09/22/20 09/22/20 09/22/20 15:12 15:12 15:12 WBC RBC Hgb Hct MCV MCH MCHC RDW Plt Count Lymph % (Auto) [place] % (Auto) Lymph # (Auto) [place] # (Auto) Seg Neutrophils % Seg Neuts % (Manual) Lymphocytes % (Manual) Monocytes % (Manual) Nucleated RBC % Seg Neutrophils # Seg Neutrophils # Man Abs Lymphs (Manual) Lymphocytes # (Manual) PT 17.3 H INR 1.42 H APTT D-Dimer Heparin Anti-Xa Level ABG pH POC ABG pCO2 POC ABG pO2 ABG Oxyhemoglobin ABG Sodium ABG Potassium ABG Glucose Carboxyhemoglobin Sodium Potassium Chloride Carbon Dioxide BUN Creatinine 3.0 H Glucose POC Glucose Calcium Phosphorus Ferritin Total Bilirubin AST ALT Alkaline Phosphatase Lactate Dehydrogenase Total Creatine Kinase Troponin T C-Reactive Protein NT-Pro-B Natriuret Pep Serum Total Protein Total Protein Albumin Cholesterol LDL Cholesterol Direct HDL Cholesterol PTH Intact Arterial Blood Glucose Urine WBC (Auto) Urine Creatinine Valproic Acid Heparin-induced Plt Ab Weak positive H Lymph Enumerat CD4/CD8 Absolute CD3 Count Absolute CD4 Count % CD8 Cells Absolute CD8 Count Absolute CD19 Count Coronavirus (PCR) HIV-1 RNA PCR copies/ml HIV-1 RNA (PCR) log 09/22/20 09/22/20 09/23/20 16:53 23:55 04:36 WBC 14.2 H RBC 3.05 L Hgb 9.8 L Hct 28.4 L MCV MCH MCHC RDW Plt Count 39 L Lymph % (Auto) [place] % (Auto) Lymph # (Auto) [place] # (Auto) Seg Neutrophils % Seg Neuts % (Manual) 91.0 H Lymphocytes % (Manual) 2.0 L Monocytes % (Manual) Nucleated RBC % Seg Neutrophils # Seg Neutrophils # Man 12.9 H Abs Lymphs (Manual) Lymphocytes # (Manual) 0.3 L PT INR APTT D-Dimer Heparin Anti-Xa Level ABG pH POC ABG pCO2 POC ABG pO2 ABG Oxyhemoglobin ABG Sodium ABG Potassium ABG Glucose Carboxyhemoglobin Sodium Potassium Chloride Carbon Dioxide BUN Creatinine Glucose POC Glucose 138 H 171 H Calcium Phosphorus Ferritin Total Bilirubin AST ALT Alkaline Phosphatase Lactate Dehydrogenase Total Creatine Kinase Troponin T C-Reactive Protein NT-Pro-B Natriuret Pep Serum Total Protein Total Protein Albumin Cholesterol LDL Cholesterol Direct HDL Cholesterol PTH Intact Arterial Blood Glucose Urine WBC (Auto) Urine Creatinine Valproic Acid Heparin-induced Plt Ab Lymph Enumerat CD4/CD8 Absolute CD3 Count Absolute CD4 Count % CD8 Cells Absolute CD8 Count Absolute CD19 Count Coronavirus (PCR) HIV-1 RNA PCR copies/ml HIV-1 RNA (PCR) log 09/23/20 09/23/20 09/23/20 04:36 05:41 11:38 WBC RBC Hgb Hct MCV MCH MCHC RDW Plt Count Lymph % (Auto) [place] % (Auto) Lymph # (Auto) [place] # (Auto) Seg Neutrophils % Seg Neuts % (Manual) Lymphocytes % (Manual) Monocytes % (Manual) Nucleated RBC % Seg Neutrophils # Seg Neutrophils # Man Abs Lymphs (Manual) Lymphocytes # (Manual) PT INR APTT D-Dimer Heparin Anti-Xa Level ABG pH POC ABG pCO2 POC ABG pO2 ABG Oxyhemoglobin ABG Sodium ABG Potassium ABG Glucose Carboxyhemoglobin Sodium Potassium Chloride Carbon Dioxide BUN 76 H Creatinine 3.1 H Glucose 157 H POC Glucose 136 H 141 H Calcium Phosphorus Ferritin Total Bilirubin AST ALT Alkaline Phosphatase Lactate Dehydrogenase Total Creatine Kinase Troponin T C-Reactive Protein NT-Pro-B Natriuret Pep Serum Total Protein Total Protein Albumin Cholesterol LDL Cholesterol Direct HDL Cholesterol PTH Intact Arterial Blood Glucose Urine WBC (Auto) Urine Creatinine Valproic Acid Heparin-induced Plt Ab Lymph Enumerat CD4/CD8 Absolute CD3 Count Absolute CD4 Count % CD8 Cells Absolute CD8 Count Absolute CD19 Count Coronavirus (PCR) HIV-1 RNA PCR copies/ml HIV-1 RNA (PCR) log 09/23/20 09/23/20 09/24/20 17:09 23:51 05:00 WBC 24.2 H RBC 3.23 L Hgb 10.0 L Hct 29.7 L MCV MCH MCHC RDW Plt Count 74 L Lymph % (Auto) [place] % (Auto) Lymph # (Auto) [place] # (Auto) Seg Neutrophils % Seg Neuts % (Manual) Lymphocytes % (Manual) Monocytes % (Manual) Nucleated RBC % Seg Neutrophils # Seg Neutrophils # Man Abs Lymphs (Manual) Lymphocytes # (Manual) PT INR APTT D-Dimer Heparin Anti-Xa Level ABG pH POC ABG pCO2 POC ABG pO2 ABG Oxyhemoglobin ABG Sodium ABG Potassium ABG Glucose Carboxyhemoglobin Sodium Potassium Chloride Carbon Dioxide BUN Creatinine Glucose POC Glucose 128 H 128 H Calcium Phosphorus Ferritin Total Bilirubin AST ALT Alkaline Phosphatase Lactate Dehydrogenase Total Creatine Kinase Troponin T C-Reactive Protein NT-Pro-B Natriuret Pep Serum Total Protein Total Protein Albumin Cholesterol LDL Cholesterol Direct HDL Cholesterol PTH Intact Arterial Blood Glucose Urine WBC (Auto) Urine Creatinine Valproic Acid Heparin-induced Plt Ab Lymph Enumerat CD4/CD8 Absolute CD3 Count Absolute CD4 Count % CD8 Cells Absolute CD8 Count Absolute CD19 Count Coronavirus (PCR) HIV-1 RNA PCR copies/ml HIV-1 RNA (PCR) log 09/24/20 09/24/20 09/24/20 05:00 05:00 05:00 WBC RBC Hgb Hct MCV MCH MCHC RDW Plt Count Lymph % (Auto) [place] % (Auto) Lymph # (Auto) [place] # (Auto) Seg Neutrophils % Seg Neuts % (Manual) Lymphocytes % (Manual) Monocytes % (Manual) Nucleated RBC % Seg Neutrophils # Seg Neutrophils # Man Abs Lymphs (Manual) Lymphocytes # (Manual) PT INR APTT D-Dimer 1772.86 H Heparin Anti-Xa Level ABG pH POC ABG pCO2 POC ABG pO2 ABG Oxyhemoglobin ABG Sodium ABG Potassium ABG Glucose Carboxyhemoglobin Sodium Potassium Chloride 107.1 H Carbon Dioxide BUN 90 H Creatinine 3.1 H Glucose 118 H POC Glucose Calcium Phosphorus Ferritin 1190.0 H Total Bilirubin AST ALT Alkaline Phosphatase Lactate Dehydrogenase 276 H Total Creatine Kinase Troponin T C-Reactive Protein 4.20 H NT-Pro-B Natriuret Pep Serum Total Protein Total Protein Albumin Cholesterol LDL Cholesterol Direct HDL Cholesterol PTH Intact Arterial Blood Glucose Urine WBC (Auto) Urine Creatinine Valproic Acid Heparin-induced Plt Ab Lymph Enumerat CD4/CD8 Absolute CD3 Count Absolute CD4 Count % CD8 Cells Absolute CD8 Count Absolute CD19 Count Coronavirus (PCR) HIV-1 RNA PCR copies/ml HIV-1 RNA (PCR) log 09/24/20 09/24/20 09/24/20 05:12 11:25 12:09 WBC RBC Hgb Hct MCV MCH MCHC RDW Plt Count Lymph % (Auto) [place] % (Auto) Lymph # (Auto) [place] # (Auto) Seg Neutrophils % Seg Neuts % (Manual) Lymphocytes % (Manual) Monocytes % (Manual) Nucleated RBC % Seg Neutrophils # Seg Neutrophils # Man Abs Lymphs (Manual) Lymphocytes # (Manual) PT INR APTT D-Dimer Heparin Anti-Xa Level ABG pH POC ABG pCO2 POC ABG pO2 ABG Oxyhemoglobin ABG Sodium ABG Potassium ABG Glucose Carboxyhemoglobin Sodium Potassium Chloride Carbon Dioxide BUN Creatinine 3.1 H Glucose POC Glucose 114 H 110 H Calcium Phosphorus Ferritin Total Bilirubin AST ALT Alkaline Phosphatase Lactate Dehydrogenase Total Creatine Kinase Troponin T C-Reactive Protein NT-Pro-B Natriuret Pep Serum Total Protein Total Protein Albumin Cholesterol LDL Cholesterol Direct HDL Cholesterol PTH Intact Arterial Blood Glucose Urine WBC (Auto) Urine Creatinine Valproic Acid Heparin-induced Plt Ab Lymph Enumerat CD4/CD8 Absolute CD3 Count Absolute CD4 Count % CD8 Cells Absolute CD8 Count Absolute CD19 Count Coronavirus (PCR) HIV-1 RNA PCR copies/ml HIV-1 RNA (PCR) log 09/24/20 09/24/20 09/24/20 12:13 12:13 17:41 WBC 20.8 H RBC 3.04 L Hgb 9.5 L Hct 28.0 L MCV MCH MCHC RDW Plt Count 78 L Lymph % (Auto) [place] % (Auto) Lymph # (Auto) [place] # (Auto) Seg Neutrophils % Seg Neuts % (Manual) Lymphocytes % (Manual) Monocytes % (Manual) Nucleated RBC % Seg Neutrophils # Seg Neutrophils # Man Abs Lymphs (Manual) Lymphocytes # (Manual) PT 15.7 H INR 1.27 H APTT D-Dimer Heparin Anti-Xa Level ABG pH POC ABG pCO2 POC ABG pO2 ABG Oxyhemoglobin ABG Sodium ABG Potassium ABG Glucose Carboxyhemoglobin Sodium Potassium Chloride Carbon Dioxide BUN Creatinine Glucose POC Glucose 133 H Calcium Phosphorus Ferritin Total Bilirubin AST ALT Alkaline Phosphatase Lactate Dehydrogenase Total Creatine Kinase Troponin T C-Reactive Protein NT-Pro-B Natriuret Pep Serum Total Protein Total Protein Albumin Cholesterol LDL Cholesterol Direct HDL Cholesterol PTH Intact Arterial Blood Glucose Urine WBC (Auto) Urine Creatinine Valproic Acid Heparin-induced Plt Ab Lymph Enumerat CD4/CD8 Absolute CD3 Count Absolute CD4 Count % CD8 Cells Absolute CD8 Count Absolute CD19 Count Coronavirus (PCR) HIV-1 RNA PCR copies/ml HIV-1 RNA (PCR) log 09/24/20 09/25/20 09/25/20 23:34 06:40 06:40 WBC RBC Hgb Hct MCV MCH MCHC RDW Plt Count Lymph % (Auto) [place] % (Auto) Lymph # (Auto) [place] # (Auto) Seg Neutrophils % Seg Neuts % (Manual) Lymphocytes % (Manual) Monocytes % (Manual) Nucleated RBC % Seg Neutrophils # Seg Neutrophils # Man Abs Lymphs (Manual) Lymphocytes # (Manual) PT INR APTT D-Dimer Heparin Anti-Xa Level ABG pH POC ABG pCO2 POC ABG pO2 ABG Oxyhemoglobin ABG Sodium ABG Potassium ABG Glucose Carboxyhemoglobin Sodium Potassium Chloride 109.0 H Carbon Dioxide BUN 98 H Creatinine 3.0 H 3.0 H Glucose 111 H POC Glucose 113 H Calcium Phosphorus Ferritin Total Bilirubin AST ALT Alkaline Phosphatase Lactate Dehydrogenase Total Creatine Kinase Troponin T C-Reactive Protein NT-Pro-B Natriuret Pep Serum Total Protein Total Protein Albumin Cholesterol LDL Cholesterol Direct HDL Cholesterol PTH Intact Arterial Blood Glucose Urine WBC (Auto) Urine Creatinine Valproic Acid Heparin-induced Plt Ab Lymph Enumerat CD4/CD8 Absolute CD3 Count Absolute CD4 Count % CD8 Cells Absolute CD8 Count Absolute CD19 Count Coronavirus (PCR) HIV-1 RNA PCR copies/ml HIV-1 RNA (PCR) log 09/25/20 09/25/20 09/25/20 10:45 12:45 18:03 WBC 20.7 H RBC 3.33 L Hgb 10.2 L Hct 31.3 L MCV MCH MCHC RDW Plt Count 139 L Lymph % (Auto) [place] % (Auto) Lymph # (Auto) [place] # (Auto) Seg Neutrophils % Seg Neuts % (Manual) Lymphocytes % (Manual) Monocytes % (Manual) Nucleated RBC % Seg Neutrophils # Seg Neutrophils # Man Abs Lymphs (Manual) Lymphocytes # (Manual) PT INR APTT D-Dimer Heparin Anti-Xa Level ABG pH POC ABG pCO2 POC ABG pO2 ABG Oxyhemoglobin ABG Sodium ABG Potassium ABG Glucose Carboxyhemoglobin Sodium Potassium Chloride Carbon Dioxide BUN Creatinine Glucose POC Glucose 108 H 114 H Calcium Phosphorus Ferritin Total Bilirubin AST ALT Alkaline Phosphatase Lactate Dehydrogenase Total Creatine Kinase Troponin T C-Reactive Protein NT-Pro-B Natriuret Pep Serum Total Protein Total Protein Albumin Cholesterol LDL Cholesterol Direct HDL Cholesterol PTH Intact Arterial Blood Glucose Urine WBC (Auto) Urine Creatinine Valproic Acid Heparin-induced Plt Ab Lymph Enumerat CD4/CD8 Absolute CD3 Count Absolute CD4 Count % CD8 Cells Absolute CD8 Count Absolute CD19 Count Coronavirus (PCR) HIV-1 RNA PCR copies/ml HIV-1 RNA (PCR) log 09/25/20 09/26/20 09/26/20 23:29 05:00 07:06 WBC 17.0 H RBC 3.10 L Hgb 9.6 L Hct 28.8 L MCV MCH MCHC RDW Plt Count Lymph % (Auto) [place] % (Auto) Lymph # (Auto) [place] # (Auto) Seg Neutrophils % Seg Neuts % (Manual) Lymphocytes % (Manual) Monocytes % (Manual) Nucleated RBC % Seg Neutrophils # Seg Neutrophils # Man Abs Lymphs (Manual) Lymphocytes # (Manual) PT INR APTT D-Dimer Heparin Anti-Xa Level ABG pH POC ABG pCO2 POC ABG pO2 ABG Oxyhemoglobin ABG Sodium ABG Potassium ABG Glucose Carboxyhemoglobin Sodium Potassium Chloride Carbon Dioxide BUN Creatinine Glucose POC Glucose 111 H 115 H Calcium Phosphorus Ferritin Total Bilirubin AST ALT Alkaline Phosphatase Lactate Dehydrogenase Total Creatine Kinase Troponin T C-Reactive Protein NT-Pro-B Natriuret Pep Serum Total Protein Total Protein Albumin Cholesterol LDL Cholesterol Direct HDL Cholesterol PTH Intact Arterial Blood Glucose Urine WBC (Auto) Urine Creatinine Valproic Acid Heparin-induced Plt Ab Lymph Enumerat CD4/CD8 Absolute CD3 Count Absolute CD4 Count % CD8 Cells Absolute CD8 Count Absolute CD19 Count Coronavirus (PCR) HIV-1 RNA PCR copies/ml HIV-1 RNA (PCR) log 09/26/20 09/26/20 09/27/20 07:06 17:26 04:00 WBC RBC Hgb Hct MCV MCH MCHC RDW Plt Count Lymph % (Auto) [place] % (Auto) Lymph # (Auto) [place] # (Auto) Seg Neutrophils % Seg Neuts % (Manual) Lymphocytes % (Manual) Monocytes % (Manual) Nucleated RBC % Seg Neutrophils # Seg Neutrophils # Man Abs Lymphs (Manual) Lymphocytes # (Manual) PT INR APTT D-Dimer Heparin Anti-Xa Level ABG pH POC ABG pCO2 POC ABG pO2 ABG Oxyhemoglobin ABG Sodium ABG Potassium ABG Glucose Carboxyhemoglobin Sodium Potassium Chloride Carbon Dioxide BUN 69 H 67 H Creatinine 2.2 H 2.3 H Glucose 107 H 121 H POC Glucose 124 H Calcium Phosphorus Ferritin Total Bilirubin AST ALT Alkaline Phosphatase Lactate Dehydrogenase Total Creatine Kinase Troponin T C-Reactive Protein NT-Pro-B Natriuret Pep Serum Total Protein Total Protein Albumin Cholesterol LDL Cholesterol Direct HDL Cholesterol PTH Intact Arterial Blood Glucose Urine WBC (Auto) Urine Creatinine Valproic Acid Heparin-induced Plt Ab Lymph Enumerat CD4/CD8 Absolute CD3 Count Absolute CD4 Count % CD8 Cells Absolute CD8 Count Absolute CD19 Count Coronavirus (PCR) HIV-1 RNA PCR copies/ml HIV-1 RNA (PCR) log 09/27/20 09/27/20 09/27/20 04:00 05:00 17:11 WBC 14.6 H RBC 2.72 L Hgb 8.6 L Hct 25.8 L MCV 95 H MCH MCHC RDW Plt Count Lymph % (Auto) 4.3 L [place] % (Auto) Lymph # (Auto) 0.6 L [place] # (Auto) 0.9 H Seg Neutrophils % 89.6 H Seg Neuts % (Manual) Lymphocytes % (Manual) Monocytes % (Manual) Nucleated RBC % Seg Neutrophils # 13.1 H Seg Neutrophils # Man Abs Lymphs (Manual) Lymphocytes # (Manual) PT INR APTT D-Dimer Heparin Anti-Xa Level ABG pH POC ABG pCO2 POC ABG pO2 ABG Oxyhemoglobin ABG Sodium ABG Potassium ABG Glucose Carboxyhemoglobin Sodium Potassium Chloride Carbon Dioxide BUN Creatinine 2.4 H Glucose POC Glucose 132 H Calcium Phosphorus Ferritin Total Bilirubin AST ALT Alkaline Phosphatase Lactate Dehydrogenase Total Creatine Kinase Troponin T C-Reactive Protein NT-Pro-B Natriuret Pep Serum Total Protein Total Protein Albumin Cholesterol LDL Cholesterol Direct HDL Cholesterol PTH Intact Arterial Blood Glucose Urine WBC (Auto) Urine Creatinine Valproic Acid Heparin-induced Plt Ab Lymph Enumerat CD4/CD8 Absolute CD3 Count Absolute CD4 Count % CD8 Cells Absolute CD8 Count Absolute CD19 Count Coronavirus (PCR) HIV-1 RNA PCR copies/ml HIV-1 RNA (PCR) log 09/28/20 09/28/20 09/29/20 04:46 04:46 04:45 WBC 14.6 H RBC 2.66 L Hgb 8.4 L Hct 25.3 L MCV 95 H MCH MCHC RDW Plt Count Lymph % (Auto) [place] % (Auto) Lymph # (Auto) [place] # (Auto) Seg Neutrophils % Seg Neuts % (Manual) Lymphocytes % (Manual) Monocytes % (Manual) Nucleated RBC % Seg Neutrophils # Seg Neutrophils # Man Abs Lymphs (Manual) Lymphocytes # (Manual) PT INR APTT D-Dimer Heparin Anti-Xa Level ABG pH POC ABG pCO2 POC ABG pO2 ABG Oxyhemoglobin ABG Sodium ABG Potassium ABG Glucose Carboxyhemoglobin Sodium Potassium Chloride Carbon Dioxide BUN 71 H 63 H Creatinine 2.3 H 2.2 H Glucose 105 H POC Glucose Calcium Phosphorus Ferritin Total Bilirubin AST ALT Alkaline Phosphatase Lactate Dehydrogenase Total Creatine Kinase Troponin T C-Reactive Protein NT-Pro-B Natriuret Pep Serum Total Protein Total Protein Albumin Cholesterol LDL Cholesterol Direct HDL Cholesterol PTH Intact Arterial Blood Glucose Urine WBC (Auto) Urine Creatinine Valproic Acid Heparin-induced Plt Ab Lymph Enumerat CD4/CD8 Absolute CD3 Count Absolute CD4 Count % CD8 Cells Absolute CD8 Count Absolute CD19 Count Coronavirus (PCR) HIV-1 RNA PCR copies/ml HIV-1 RNA (PCR) log 09/29/20 09/29/20 09/29/20 04:45 05:43 17:50 WBC RBC 2.92 L Hgb 9.6 L Hct 28.1 L MCV 96 H MCH 33 H MCHC RDW Plt Count Lymph % (Auto) [place] % (Auto) Lymph # (Auto) [place] # (Auto) Seg Neutrophils % Seg Neuts % (Manual) Lymphocytes % (Manual) Monocytes % (Manual) Nucleated RBC % Seg Neutrophils # Seg Neutrophils # Man Abs Lymphs (Manual) Lymphocytes # (Manual) PT INR APTT D-Dimer Heparin Anti-Xa Level ABG pH POC ABG pCO2 POC ABG pO2 ABG Oxyhemoglobin ABG Sodium ABG Potassium ABG Glucose Carboxyhemoglobin Sodium Potassium Chloride Carbon Dioxide BUN Creatinine Glucose POC Glucose 69 L 132 H Calcium Phosphorus Ferritin Total Bilirubin AST ALT Alkaline Phosphatase Lactate Dehydrogenase Total Creatine Kinase Troponin T C-Reactive Protein NT-Pro-B Natriuret Pep Serum Total Protein Total Protein Albumin Cholesterol LDL Cholesterol Direct HDL Cholesterol PTH Intact Arterial Blood Glucose Urine WBC (Auto) Urine Creatinine Valproic Acid Heparin-induced Plt Ab Lymph Enumerat CD4/CD8 Absolute CD3 Count Absolute CD4 Count % CD8 Cells Absolute CD8 Count Absolute CD19 Count Coronavirus (PCR) HIV-1 RNA PCR copies/ml HIV-1 RNA (PCR) log 09/30/20 09/30/20 09/30/20 04:47 04:47 04:47 WBC RBC 2.47 L Hgb 8.1 L Hct 23.9 L MCV 97 H MCH 33 H MCHC RDW Plt Count Lymph % (Auto) [place] % (Auto) Lymph # (Auto) [place] # (Auto) Seg Neutrophils % Seg Neuts % (Manual) Lymphocytes % (Manual) Monocytes % (Manual) Nucleated RBC % Seg Neutrophils # Seg Neutrophils # Man Abs Lymphs (Manual) Lymphocytes # (Manual) PT INR APTT D-Dimer Heparin Anti-Xa Level ABG pH POC ABG pCO2 POC ABG pO2 ABG Oxyhemoglobin ABG Sodium ABG Potassium ABG Glucose Carboxyhemoglobin Sodium Potassium Chloride Carbon Dioxide 31 H BUN 63 H Creatinine 2.1 H Glucose POC Glucose Calcium Phosphorus Ferritin Total Bilirubin AST ALT Alkaline Phosphatase Lactate Dehydrogenase Total Creatine Kinase Troponin T C-Reactive Protein NT-Pro-B Natriuret Pep Serum Total Protein 5.5 L Total Protein 5.9 L Albumin 2.2 L 2.1 L Cholesterol LDL Cholesterol Direct HDL Cholesterol PTH Intact Arterial Blood Glucose Urine WBC (Auto) Urine Creatinine Valproic Acid Heparin-induced Plt Ab Lymph Enumerat CD4/CD8 Absolute CD3 Count Absolute CD4 Count % CD8 Cells Absolute CD8 Count Absolute CD19 Count Coronavirus (PCR) HIV-1 RNA PCR copies/ml HIV-1 RNA (PCR) log 10/01/20 10/01/20 10/02/20 07:16 08:30 05:10 WBC RBC Hgb Hct MCV MCH MCHC RDW Plt Count Lymph % (Auto) [place] % (Auto) Lymph # (Auto) [place] # (Auto) Seg Neutrophils % Seg Neuts % (Manual) Lymphocytes % (Manual) Monocytes % (Manual) Nucleated RBC % Seg Neutrophils # Seg Neutrophils # Man Abs Lymphs (Manual) Lymphocytes # (Manual) PT INR APTT D-Dimer Heparin Anti-Xa Level ABG pH POC ABG pCO2 POC ABG pO2 ABG Oxyhemoglobin ABG Sodium ABG Potassium ABG Glucose Carboxyhemoglobin Sodium Potassium Chloride Carbon Dioxide BUN 58 H 48 H Creatinine 2.2 H 2.0 H Glucose POC Glucose Calcium Phosphorus Ferritin Total Bilirubin AST ALT Alkaline Phosphatase Lactate Dehydrogenase Total Creatine Kinase Troponin T C-Reactive Protein NT-Pro-B Natriuret Pep Serum Total Protein Total Protein Albumin Cholesterol LDL Cholesterol Direct HDL Cholesterol PTH Intact Arterial Blood Glucose Urine WBC (Auto) Urine Creatinine Valproic Acid Heparin-induced Plt Ab Lymph Enumerat CD4/CD8 Absolute CD3 Count Absolute CD4 Count % CD8 Cells Absolute CD8 Count Absolute CD19 Count Coronavirus (PCR) Positive A HIV-1 RNA PCR copies/ml HIV-1 RNA (PCR) log 10/03/20 10/03/20 10/04/20 08:12 08:12 18:19 WBC RBC Hgb Hct MCV MCH MCHC RDW Plt Count Lymph % (Auto) [place] % (Auto) Lymph # (Auto) [place] # (Auto) Seg Neutrophils % Seg Neuts % (Manual) Lymphocytes % (Manual) Monocytes % (Manual) Nucleated RBC % Seg Neutrophils # Seg Neutrophils # Man Abs Lymphs (Manual) Lymphocytes # (Manual) PT INR APTT D-Dimer Heparin Anti-Xa Level ABG pH POC ABG pCO2 POC ABG pO2 ABG Oxyhemoglobin ABG Sodium ABG Potassium ABG Glucose Carboxyhemoglobin Sodium Potassium 5.4 H D Chloride Carbon Dioxide BUN 48 H 39 H Creatinine 2.2 H 2.7 H Glucose POC Glucose Calcium 8.0 L Phosphorus Ferritin Total Bilirubin AST ALT Alkaline Phosphatase Lactate Dehydrogenase Total Creatine Kinase Troponin T C-Reactive Protein NT-Pro-B Natriuret Pep Serum Total Protein Total Protein Albumin Cholesterol LDL Cholesterol Direct HDL Cholesterol PTH Intact Arterial Blood Glucose Urine WBC (Auto) Urine Creatinine Valproic Acid 17.8 L Heparin-induced Plt Ab Lymph Enumerat CD4/CD8 Absolute CD3 Count Absolute CD4 Count % CD8 Cells Absolute CD8 Count Absolute CD19 Count Coronavirus (PCR) HIV-1 RNA PCR copies/ml HIV-1 RNA (PCR) log 10/04/20 10/05/20 10/05/20 18:19 07:14 07:14 WBC RBC 2.44 L 2.36 L Hgb 8.0 L 7.8 L Hct 24.0 L 23.3 L MCV 98 H 99 H MCH 33 H 33 H MCHC RDW 15.6 H 16.0 H Plt Count Lymph % (Auto) [place] % (Auto) Lymph # (Auto) [place] # (Auto) Seg Neutrophils % Seg Neuts % (Manual) Lymphocytes % (Manual) Monocytes % (Manual) Nucleated RBC % Seg Neutrophils # Seg Neutrophils # Man Abs Lymphs (Manual) Lymphocytes # (Manual) PT INR APTT D-Dimer Heparin Anti-Xa Level ABG pH POC ABG pCO2 POC ABG pO2 ABG Oxyhemoglobin ABG Sodium ABG Potassium ABG Glucose Carboxyhemoglobin Sodium Potassium Chloride Carbon Dioxide BUN 36 H Creatinine 2.5 H Glucose POC Glucose Calcium Phosphorus Ferritin Total Bilirubin AST ALT Alkaline Phosphatase Lactate Dehydrogenase Total Creatine Kinase Troponin T C-Reactive Protein NT-Pro-B Natriuret Pep Serum Total Protein Total Protein Albumin Cholesterol LDL Cholesterol Direct HDL Cholesterol PTH Intact Arterial Blood Glucose Urine WBC (Auto) Urine Creatinine Valproic Acid Heparin-induced Plt Ab Lymph Enumerat CD4/CD8 Absolute CD3 Count Absolute CD4 Count % CD8 Cells Absolute CD8 Count Absolute CD19 Count Coronavirus (PCR) HIV-1 RNA PCR copies/ml HIV-1 RNA (PCR) log 10/06/20 10/06/20 10/07/20 08:04 Unknown 06:45 WBC RBC 2.38 L Hgb 7.9 L Hct 23.2 L MCV 98 H MCH 33 H MCHC RDW 15.4 H Plt Count Lymph % (Auto) [place] % (Auto) Lymph # (Auto) [place] # (Auto) Seg Neutrophils % Seg Neuts % (Manual) Lymphocytes % (Manual) Monocytes % (Manual) Nucleated RBC % Seg Neutrophils # Seg Neutrophils # Man Abs Lymphs (Manual) Lymphocytes # (Manual) PT INR APTT D-Dimer Heparin Anti-Xa Level ABG pH POC ABG pCO2 POC ABG pO2 ABG Oxyhemoglobin ABG Sodium ABG Potassium ABG Glucose Carboxyhemoglobin Sodium Potassium 3.5 L Chloride 107.2 H Carbon Dioxide BUN 30 H Creatinine 2.2 H Glucose POC Glucose Calcium Phosphorus Ferritin Total Bilirubin AST ALT Alkaline Phosphatase Lactate Dehydrogenase Total Creatine Kinase Troponin T C-Reactive Protein NT-Pro-B Natriuret Pep Serum Total Protein Total Protein Albumin Cholesterol LDL Cholesterol Direct HDL Cholesterol PTH Intact Arterial Blood Glucose Urine WBC (Auto) Urine Creatinine Valproic Acid Heparin-induced Plt Ab Lymph Enumerat CD4/CD8 Absolute CD3 Count Absolute CD4 Count % CD8 Cells Absolute CD8 Count Absolute CD19 Count Coronavirus (PCR) Positive A HIV-1 RNA PCR copies/ml HIV-1 RNA (PCR) log 10/07/20 10/08/20 10/10/20 06:45 20:19 06:57 WBC RBC Hgb Hct MCV MCH MCHC RDW Plt Count Lymph % (Auto) [place] % (Auto) Lymph # (Auto) [place] # (Auto) Seg Neutrophils % Seg Neuts % (Manual) Lymphocytes % (Manual) Monocytes % (Manual) Nucleated RBC % Seg Neutrophils # Seg Neutrophils # Man Abs Lymphs (Manual) Lymphocytes # (Manual) PT INR APTT D-Dimer Heparin Anti-Xa Level ABG pH POC ABG pCO2 POC ABG pO2 ABG Oxyhemoglobin ABG Sodium ABG Potassium ABG Glucose Carboxyhemoglobin Sodium 135 L Potassium 3.5 L Chloride Carbon Dioxide BUN 28 H 22 H Creatinine 2.2 H 2.0 H 2.0 H Glucose POC Glucose Calcium Phosphorus Ferritin Total Bilirubin AST ALT Alkaline Phosphatase Lactate Dehydrogenase Total Creatine Kinase Troponin T C-Reactive Protein NT-Pro-B Natriuret Pep Serum Total Protein Total Protein Albumin Cholesterol LDL Cholesterol Direct HDL Cholesterol PTH Intact Arterial Blood Glucose Urine WBC (Auto) Urine Creatinine Valproic Acid Heparin-induced Plt Ab Lymph Enumerat CD4/CD8 Absolute CD3 Count Absolute CD4 Count % CD8 Cells Absolute CD8 Count Absolute CD19 Count Coronavirus (PCR) HIV-1 RNA PCR copies/ml HIV-1 RNA (PCR) log Allied health notes reviewed: nursing
[2020-10-11 08:13] LABS: Calcium 8.3 mg/dL (8.4-10.2)
[2020-10-11] MEDS: METOPROLOL TARTRATE 25 MG TAB PO SCH ×3 (08:54→22:24)
[2020-10-11] MEDS: MIDODRINE 5 MG TAB PO SCH ×3 (08:55→17:29)
--- NOTE | 2020-10-11 10:27 | Progress Note ---
Subjective - Reason for Consult Consult date: 10/11/20 Reason for consult: delirium - Chief Complaint Chief complaint: The patient was seen today. He is a/o x 3. He is calm and cooperative. He is pleasant and polite. The patient states he feels well. He says he's been sleeping fantastic. He denies SI/HI or hallucinations of any kind. REVIEW OF SYSTEMS Constitutional: Negative for weight loss ENT: Negative for stridor Respiratory: Negative for cough or hemoptysis All other systems reviewed and are negative MENTAL STATUS EXAMINATION General Appearance and Behavior: Age appropriate, good hygiene, wearing appropriate clothes, good eye contact, cooperative polite with questioning. Cooperation: Participating/engaged Psychomotor Behavior: unremarkable and within normal limits Mood: okay Affect and affective range: congruent with mood Thought Process: Fluent/Logical Thought Content: Within reality Speech: Normal volume, Regular rate and rhythm Intellectual Functioning: Average Suicidal Ideation: Denies SI Homicidal Ideation: Denies HI Hallucinations: Denies Delusions: Note elicited Impulse Control: Unimpaired Insight and Judgment: Limited insight and judgment, Memory: Limited Attention: Normal Orientation: Alert, oriented x 2 Assessment (1) Delirium Current Visit: Yes Status: Acute Treatment Plan Agree with currently prescribed meds Sitter: Defer to primary Medical: Per primary Disposition: Do not recommend acute psychiatric inpatient The 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 Case staffed with Dr. Ulloa Mental Status Exam - Vital signs Last Vital Signs Temp 99.1 F 10/11/20 06:23 Pulse 109 H 10/11/20 08:54 Resp 18 10/11/20 06:19 BP 101/75 10/11/20 04:22 Pulse Ox 99 10/11/20 04:22
[2020-10-11] MEDS: ASCORBIC ACID 500 MG TAB PO SCH ×2 (11:24→22:23)
[2020-10-11] MEDS: CHOLECALCIFEROL (VIT D3) 1000 UNIT (25 mcg) TAB PO SCH (11:24)
[2020-10-11] MEDS: ZINC SULFATE 220 MG CAP PO SCH (11:24)
[2020-10-11] MEDS: AMIODARONE 200 MG TAB PO SCH ×2 (11:25→22:23)
[2020-10-11] MEDS: APIXABAN 5 MG TAB PO SCH ×2 (11:25→22:23)
[2020-10-11] MEDS: FAMOTIDINE 20 MG TAB PO SCH (11:26)
[2020-10-11] MEDS: TAMSULOSIN 0.4 MG CAP PO SCH (11:26)
[2020-10-11] MEDS: DOLUTEGRAVIR 50 MG TAB PO SCH (11:27)
[2020-10-11] MEDS: VALPROIC ACID 250 MG CAP PO SCH ×2 (11:27→22:22)
[2020-10-11] MEDS: QUEtiapine 25 MG TAB PO SCH ×2 (11:29→22:23)
[2020-10-11] MEDS: DOCUSATE SODIUM 100 MG/10 ML ORAL LIQD PO SCH ×2 (11:30→22:22)
--- NOTE | 2020-10-11 12:27 | Progress Note ---
Assessment and Plan Assessment and plan: This is 70-year-old male with HIV, HTN, and atrial fibrillation (currently on therapeutic anticoagulation with Xarelto) presents the emergency department on 09/17 with complaints of shortness of breath over the past 3 days and on arrival of EMS patient was found to have a pulse oximetry of 85% on room air. He was placed on supplemental oxygenation. Of note patient was admitted on 09/15 with similar complaints and found to have A. fib with RVR, hyponatremia, hypomagnesemia and acute kidney injury and left AMA. He was admitted to the hospital service with atrial fibrillation with RVR, SIRs, metabolic acidosis, acute kidney injury, acute hypoxic respiratory failure, hypotension, and CHF . Cardiology, CCM and nephrology were consulted. 09/18/2020. Await echocardiogram to assess for diastolic versus systolic etiology. Patient with elevated BNP greater than 18,000. Patient apparently was admitted approximately 3 days ago but left AMA. Cardiology consulted for heart failure, A. fib with RVR and elevated troponin. Patient denies chest pain. Also, patient with elevated creatinine of 4.7 with creatinine 2.8 on recent admission. We do not have a previous creatinine as a baseline to compar e. Nephrology consultation pending. Follow-up renal ultrasound. Patient with coagulopathy and INR 3.04. Unsure if patient was on anticoagulation for A. fib. 09/19/2020. Patient likely with vasomotor acute kidney injury in the setting of shock. Follow-up urine studies and renal ultrasound. Creatinine continues to worsen. Nephrology following. Etiology of respiratory failure secondary to hea rt failure with Covid testing pending. Elevated troponin suggestive of NSTEMI. Continue diuresis with Lasix. Continue IV amiodarone for rate control of A. fib with RVR. Continue heparin. Follow-up echocardiogram. Cardiology following. 09/20/2020: This time my examination patient was on BiPAP therapy and now is on nasal cannula. Patient remains on amiodarone drip with heart rate in the 130s t o 140s and vasopressor support with Levophed. Today nephrology will initiate hemodialysis given worsening renal function studies and has stopped diuresis with Lasix. ID resumed antiretroviral therapy and ordered a HIDA scan. Today the patient received a temporary Vas-Cath and is COVID-19 PCR resulted as positive. Patient will be started on vitamin C, vitamin D and zinc and dexamethasone given need for supplemental oxygenation. 09/21: Ecoli UTI and bacteremia and ID has changed him to meropenem, Patient received HD yesterday and patient remains on amiodarone drip. He is off the floor to obtain a HIDA scan. 09/22: HIDA scan did not show acute cholecystitis. Ecoli bacteremia is sensitive to ceftriaxone and ID changed his abx. Mentation is better. BP is liable. Remains on levophed and vasopressin. We started midodrine. HIT panel pending and hem/onc consulted. 09/23: Patient noted to have unequal pupils with left >right, STAT CT head ordered. Nephro will withhold hemodialysis and assess needs as kidney function has gotten better. Patient symptomatically follows commands and is on nasal cannula. Cardiology stopped his Eliquis due to persistent thrombocytopenia. 09/24: Patient remains confused, pupils still unequal. Started on eliquis 2.5 today and he will be transferred to IMCU. 09/25: Patient remains confused, had Bipap overnight, CT abd/pelvis ordered per ID recommendations given persistent leukocytosis. Cr remains unchanged but BUN in rising. Nephrology is on the case. 09/26/2020; patient was confused and on 3 L of oxygen. ID is following the patient and continue with antiretroviral medications, no OI prophylaxis needed. Patient is on IV Rocephin lasted 09/28 per ID recommendation for E. coli bacteremia. ID ordered CT abdomen and pelvis. We will follow the results. Sulaiman wild is being followed by cardiology and they recommend to resume Eliquis with 2.5 mg p.o. twice daily, thrombocytopenia is improving. Patient is on amiodarone and metoprolol. Patient is being followed by nephrology and is on dialysis. Blood pressure was normal this morning. Patient was tachycardic in A. fib with RVR. CT head was normal. Prognosis is guarded. Continue IMCU care. 09/27: Continue IMCU care, still with unresolved Afib, will continue to adjust medications for better control. 09/28: Start Seroquel DUE TO THE AGITATION, Discussed with daughter, will work on getting Afib better controlled. Per daughter the confusion is new, although some improvement noted today. Patient will benefit from SNF 09/29: Seroquel started today as it was not started yesterday, await PT/OT, Continue to monitor mental status, will transfer to Tele. Anticipate discharge when bed available. 09/30: Discussed extensively with the daughter about her clinical condition, Seroquel discontinued as patient did not tolerate, still with low BP responded to Fluids. Hold BB and continue to monitor and redirect. Discussed with Nursing staff. 10/01: Patient seen and examined resting comfortably still with intermittent delirium. Blood pressure has improved although beta-ruddy was held midodrine was given. Will change to Coreg 3.125 with holding parameters on discharge. Per cardiology amiodarone changed to 200 mg daily. Neurology evaluation is still pending. I have initiated placement to a SNF facility and once approved patient can be discharged. Daughter has been updated on medical condition. For now on anticoagulation left in place although outpatient this may be discontinued due to patient's mental status if there is no improvement. 10/02: Neurology evaluated the patient for increased agitation and aggressive behavior and confusion. Exam suggestive of delirium stopped. Due to not tolerating Seroquel, now Geodon trial Haldol however recommended also valproic acid. No overnight issues reported. Continue awaiting SNF placement for continued rehab. Blood pressure has remained stable no further fever recorded. Monitor for any recurrence of the pain in the leg. 10/03: I have asked for a sitter a few days ago unfortunately not as available as a result restraints have been used and reassurances. Will decrease Seroquel to 12.5 twice daily as patient did not tolerate the 25 mg. Continue supportive care blood pressure meds held due to hypotension. Delirium still present delirium preventive methods including keeping the lights on through the night windows shades up discussed with nursing staff. Also discussed with neurologist. 10/04: 70-year-old male admitted to the hospital with hypoxic respiratory failure history of Covid. During hospitalization developed A. fib with RVR status metabolic acidosis and acute kidney injury. Has also been exhibiting some delirium was managed in the ICU and IMCU and subsequently is awaiting placement. He was seen by neurologist delirium of diagnosis secondary to metabolic issues. Seroquel was started initially at 25 mg p.o. twice daily but patient developed hypotension now better improved BP, Continue seroquel 12.5mg po BID seems to have good improvement in mental status. awaiting labs due to noted hyperkalemia yesterday. Repeat covud test for placement. 10/05/2020; patient is pending for placement. Repeat Covid test is negative. Blood pressure is within normal limit. Patient is confused. 10/06/2020; repeat Covid test is negative. Patient is confused. Patient last dialysis was on 09/25, renal function is stable, no need dialysis, nephrology is following. 10/07/2020; Covid test was done yesterday and was positive. Renal function is improving and nephrology is following at this time. Last dialysis was on 09/25. Patient is pending placement. Mental health consulted for confusion. 10/08/2020; patient was calm and cooperative. Patient was on condom cath. Patient was oriented only to self. 10/09/2020; patient was calm and cooperative. Patient was oriented only to self. Renal function is improving. Patient is pending placement. 10/10/2020; pending SNF placement. Patient is stable for discharge. 10/11: Continue supportive care. Awaiting placement. This morning was still confused ambulating saying that he was leaving. No worsening respiratory status noted. Safety precautions and fall precautions discussed extensively with nursing staff Septic Shock Acute hypoxemic respiratory failure / to volume overload/chf exacerbation Acute systolic heart failure exacerbation Atrial fibrillation with RVR Acute on chronic kidney injury Hypotension Anemia Thrombocytopenia E coli bacteremia E. coli urinary tract infection NSTEMI Elevated Ddimer Leukocytosis HIV, asymptomatic HTN Coagulopathy Transaminitis -Cardiology, CCM, Nephrology, ID, general surgery, heme/onc consulted, appreciate recommendations -09/20 COVID-19 PCR positive -Droplet/isolation precautions -Dexamethasone 6 mg p.o. (09/20-09/30) -Vitamin D, vitamin C, zinc -Vasopressor support with levophed and vasopressin, midodrine -09/17 CXR shows borderline heart size, mild central pulmonary venous congestion -09/17 renal ultrasound shows no acute findings -09/18 echocardiogram shows left ventricle systolic function mildly decreased, L VEF of 40 to 45% with mild concentric left ventricle hypertrophy, trace MR, mild TR, trace OH -09/19 abdominal ultrasound shows large gallstone within the gallbladder, no pericholecystic fluid, gallbladder wall upper limits of normal measuring 3 mm -09/21 HIDA scan shows no evidence of acute cholecystitis -09/21 BLE Dopplar US no evidence for DVT -09/23 CT head shows no acute intracranial hemorrhage or parenchymal abnormality, mild diffuse brain atrophy with commensurate ventricular enlargement which is likely age appropriate, small frontal scalp lipoma measuring 9 mm in thickness, 4 cm in length, and 4 cm in width., Sinuses and mastoid air cells are clear. -09/17 proBNP 14953 -S/p IV Lasix twice daily -09/20 nephrology initiated the patient on dialysis -Pulmonary hygiene -Bipap qhs -09/25 CT abd/pelvis without contrast pending -PO amiodarone -HIV meds per ID -IV abx therapy -HIT pending -Trend CBC, BMP, LFTs DVT/GI prophylaxis: PPI, SCDs to bilateral lower extremities while in bed, no chemical anticoagulation at this time d/t thrombocytopenia Disposition: IMCU History Interval history: This is 70-year-old male with HIV, HTN, and atrial fibrillation (currently on therapeutic anticoagulation with Xarelto) admitted with atrial fibrillation with RVR, SIRs, metabolic acidosis, acute kidney injury, acute hypoxic respiratory failure, hypotension, and CHF Patient seen and examined, clinical improving. No adverse event by nursing staff. Hospitalist Physical - Physical exam Narrative exam: Resting comfortably The patient appeared well nourished and normally developed. Vital signs as documented. Head exam is unremarkable. No scleral icterus . Neck is without jugular venous distension, thyromegaly, or carotid bruits. Lungs are clear to auscultation. Cardiac exam reveals regular rate and Rhythm. Abdominal exam reveals normal bowel sounds, nontender, no organomegaly. Extremities are nonedematous and both femoral and pedal pulses are normal. SIGNAL WORKER: Alert awake oriented x2 no focal deficit noted, per nursing staff still with intermittent delirium - Constitutional Vitals: Temp Pulse Resp BP Pulse Ox 99.1 F 109 H 18 101/75 99 10/11/20 06:23 10/11/20 08:54 10/11/20 06:19 10/11/20 04:22 10/11/20 04:22 General appearance: Present: no acute distress HEART Score - HEART Score Troponin: Troponin T < 0.010 ng/mL (0.00-0.029) 09/22/20 05:38 Results - Labs CBC & Chem 7: 10/07/20 06:45 10/11/20 07:29 Labs: Laboratory Last Values WBC 6.1 K/mm3 (4.5-11.0) 10/07/20 06:45 RBC 2.38 M/mm3 (3.65-5.03) L 10/07/20 06:45 Hgb 7.9 gm/dl (11.8-15.2) L 10/07/20 06:45 Hct 23.2 % (35.5-45.6) L 10/07/20 06:45 MCV 98 fl (84-94) H 10/07/20 06:45 MCH 33 pg (28-32) H 10/07/20 06:45 MCHC 34 % (32-34) 10/07/20 06:45 RDW 15.4 % (13.2-15.2) H 10/07/20 06:45 Plt Count 203 K/mm3 (140-440) 10/07/20 06:45 Lymph % (Auto) 4.3 % (13.4-35.0) L 09/27/20 04:00 Rolette % (Auto) 6.0 % (0.0-7.3) 09/27/20 04:00 Eos % (Auto) 0.1 % (0.0-4.3) 09/27/20 04:00 Baso % (Auto) 0.0 % (0.0-1.8) 09/27/20 04:00 Lymph # (Auto) 0.6 K/mm3 (1.2-5.4) L 09/27/20 04:00 [place] # (Auto) 0.9 K/mm3 (0.0-0.8) H 09/27/20 04:00 Eos # (Auto) 0.0 K/mm3 (0.0-0.4) 09/27/20 04:00 Baso # (Auto) 0.0 K/mm3 (0.0-0.1) 09/27/20 04:00 Add Manual Diff Complete 09/23/20 04:36 Total Counted 100 09/23/20 04:36 Seg Neutrophils % 89.6 % (40.0-70.0) H 09/27/20 04:00 Seg Neuts % (Manual) 91.0 % (40.0-70.0) H 09/23/20 04:36 Band Neutrophils % 2.0 % 09/23/20 04:36 Lymphocytes % (Manual) 2.0 % (13.4-35.0) L 09/23/20 04:36 Monocytes % (Manual) 5.0 % (0.0-7.3) 09/23/20 04:36 Nucleated RBC % Not Reportable 09/23/20 04:36 Seg Neutrophils # 13.1 K/mm3 (1.8-7.7) H 09/27/20 04:00 Seg Neutrophils # Man 12.9 K/mm3 (1.8-7.7) H 09/23/20 04:36 Band Neutrophils # 0.3 K/mm3 09/23/20 04:36 Abs Lymphs (Manual) 223 cells/uL (850-3900) L 09/19/20 13:35 Lymphocytes # (Manual) 0.3 K/mm3 (1.2-5.4) L 09/23/20 04:36 Abs React Lymphs (Man) 0.0 K/mm3 09/23/20 04:36 Monocytes # (Manual) 0.7 K/mm3 (0.0-0.8) 09/23/20 04:36 Eosinophils # (Manual) 0.0 K/mm3 (0.0-0.4) 09/23/20 04:36 Basophils # (Manual) 0.0 K/mm3 (0.0-0.1) 09/23/20 04:36 Metamyelocytes # 0.0 K/mm3 09/23/20 04:36 Myelocytes # 0.0 K/mm3 09/23/20 04:36 Promyelocytes # 0.0 K/mm3 09/23/20 04:36 Blast Cells # 0.0 K/mm3 09/23/20 04:36 WBC Morphology Not Reportable 09/23/20 04:36 Hypersegmented Neuts Not Reportable 09/23/20 04:36 Hyposegmented Neuts Not Reportable 09/23/20 04:36 Hypogranular Neuts Not Reportable 09/23/20 04:36 Smudge Cells Not Reportable 09/23/20 04:36 Toxic Granulation Not Reportable 09/23/20 04:36 Toxic Vacuolation Not Reportable 09/23/20 04:36 Dohle Bodies Not Reportable 09/23/20 04:36 Pelger-Huet Anomaly Not Reportable 09/23/20 04:36 Vinh Rods Not Reportable 09/23/20 04:36 Platelet Estimate Consistent w auto 09/23/20 04:36 Clumped Platelets Not Reportable 09/23/20 04:36 Plt Clumps, EDTA Not Reportable 09/23/20 04:36 Large Platelets Not Reportable 09/23/20 04:36 Giant Platelets Not Reportable 09/23/20 04:36 Platelet Satelliting Not Reportable 09/23/20 04:36 Plt Morphology Comment Not Reportable 09/23/20 04:36 RBC Morphology Not Reportable 09/23/20 04:36 Dimorphic RBCs Not Reportable 09/23/20 04:36 Polychromasia Not Reportable 09/23/20 04:36 Hypochromasia Not Reportable 09/23/20 04:36 Poikilocytosis Not Reportable 09/23/20 04:36 Anisocytosis 1+ 09/23/20 04:36 Microcytosis Not Reportable 09/23/20 04:36 Macrocytosis Not Reportable 09/23/20 04:36 Spherocytes Not Reportable 09/23/20 04:36 Pappenheimer Bodies Not Reportable 09/23/20 04:36 Sickle Cells Not Reportable 09/23/20 04:36 Target Cells Few 09/23/20 04:36 Tear Drop Cells Not Reportable 09/23/20 04:36 Ovalocytes Not Reportable 09/23/20 04:36 Helmet Cells Not Reportable 09/23/20 04:36 Lazo-Hollis Bodies Not Reportable 09/23/20 04:36 [place] Rings Not Reportable 09/23/20 04:36 Nora Cells Not Reportable 09/23/20 04:36 Bite Cells Not Reportable 09/23/20 04:36 Crenated Cell Not Reportable 09/23/20 04:36 Elliptocytes Not Reportable 09/23/20 04:36 Acanthocytes (Spur) Not Reportable 09/23/20 04:36 Rouleaux Not Reportable 09/23/20 04:36 Hemoglobin C Crystals Not Reportable 09/23/20 04:36 Schistocytes Not Reportable 09/23/20 04:36 Malaria parasites Not Reportable 09/23/20 04:36 Zachary Bodies Not Reportable 09/23/20 04:36 Hem Pathologist Commnt No 09/23/20 04:36 PT 15.7 Sec. (12.2-14.9) H 09/24/20 12:13 INR 1.27 (0.87-1.13) H 09/24/20 12:13 APTT 25.7 Sec. (24.2-36.6) 09/24/20 12:13 D-Dimer 1772.86 ng/mlDDU (0-234) H 09/24/20 05:00 Heparin Anti-Xa Level 0.10 U.I./ml (0.3-0.7) L 09/20/20 04:00 Heparin Anti-Xa, Unfract Negative (Negative) 09/22/20 15:12 ABG pH 7.508 (7.320-7.450) H 09/17/20 10:28 POC ABG pCO2 22.8 mmHg (32.0-48.0) L 09/17/20 10:28 POC ABG pO2 66.8 mmHg (83-108) L 09/17/20 10:28 POC ABG HCO3 17.7 09/17/20 10:28 ABG O2 Saturation 93.4 (0-100) 09/17/20 10:28 POC ABG Base Excess -3.5 09/17/20 10:28 ABG Hemoglobin 12.7 (12.0-17.5) 09/17/20 10:28 ABG Oxyhemoglobin 92.7 (94-98) L 09/17/20 10:28 ABG Methemoglobin 0.3 (0.0-1.5) 09/17/20 10:28 ABG Sodium 127.4 mmol/L (136.0-145.0) L 09/17/20 10:28 ABG Potassium 4.7 mmol/L (3.40-4.50) H 09/17/20 10:28 ABG Chloride 101.0 mmol/L (98-107) 09/17/20 10:28 ABG Glucose 121 mg/dL (65-95) H 09/17/20 10:28 Carboxyhemoglobin 0.4 (0.5-1.5) L 09/17/20 10:28 FiO2 % 21 09/17/20 10:28 Sodium 137 mmol/L (137-145) 10/11/20 07:29 Potassium 3.6 mmol/L (3.6-5.0) 10/11/20 07:29 Chloride 101.4 mmol/L (98-107) 10/11/20 07:29 Carbon Dioxide 27 mmol/L (22-30) 10/11/20 07:29 Anion Gap 12 mmol/L 10/11/20 07:29 BUN 19 mg/dL (9-20) 10/11/20 07:29 Creatinine 2.0 mg/dL (0.8-1.3) H 10/11/20 07:29 Estimated GFR 40 ml/min 10/11/20 07:29 BUN/Creatinine Ratio 10 % 10/11/20 07:29 Glucose 95 mg/dL (75-100) 10/11/20 07:29 POC Glucose 72 mg/dL (70-105) 09/30/20 11:45 Lactic Acid 1.00 mmol/L (0.7-2.0) 09/20/20 17:10 Calcium 8.3 mg/dL (8.4-10.2) L 10/11/20 07:29 Phosphorus 2.90 mg/dL (2.5-4.5) 09/26/20 07:06 Magnesium 1.70 mg/dL (1.7-2.3) 09/26/20 07:06 Ferritin 1190.0 ng/mL (30.0-300.0) H 09/24/20 05:00 Total Bilirubin 0.80 mg/dL (0.1-1.2) 09/30/20 04:47 AST 14 units/L (5-40) 09/30/20 04:47 ALT 21 units/L (7-56) 09/30/20 04:47 Alkaline Phosphatase 81 units/L (35-129) 09/30/20 04:47 Lactate Dehydrogenase 276 units/L (91-180) H 09/24/20 05:00 Total Creatine Kinase 20 units/L (55-170) L 09/19/20 03:30 Troponin T < 0.010 ng/mL (0.00-0.029) 09/22/20 05:38 C-Reactive Protein 4.20 mg/dL (0.00-1.30) H 09/24/20 05:00 NT-Pro-B Natriuret Pep 86129 pg/mL (0-900) H 09/17/20 10:47 Serum Total Protein 5.5 g/dL (6.1-8.1) L 09/30/20 04:47 Total Protein 5.9 g/dL (6.3-8.2) L 09/30/20 04:47 Albumin 2.1 g/dL (3.8-4.8) L 09/30/20 04:47 Albumin 2.2 g/dL (3.9-5) L 09/30/20 04:47 Albumin/Globulin Ratio 0.6 % 09/30/20 04:47 Aayhj-3-Rywuhfvoa 0.3 g/dL (0.2-0.3) 09/30/20 04:47 Bmdln-1-Kexqhftix 0.7 g/dL (0.5-0.9) 09/30/20 04:47 Beta Globulins 0.3 g/dL (0.2-0.5) 09/30/20 04:47 Gamma Globulins 1.7 g/dL (0.8-1.7) 09/30/20 04:47 Abnorm Protein Band 1 see below 09/30/20 04:47 PEP Interpretation see below 09/30/20 04:47 Triglycerides 137 mg/dL (2-149) 09/17/20 13:54 Cholesterol 48 mg/dL (50-199) L 09/17/20 13:54 LDL Cholesterol Direct 4 mg/dL (50-130) L 09/17/20 13:54 HDL Cholesterol 9 mg/dL (40-59) L 09/17/20 13:54 Cholesterol/HDL Ratio 5.33 % 09/17/20 13:54 Free PSA See scanned result 09/17/20 17:35 % Free PSA Calc See scanned result 09/17/20 17:35 Total PSA See scanned result 09/17/20 17:35 Serotonin Release Assay See scanned result 09/22/20 15:12 Procalcitonin 2.10 ng/mL (<0.15) 09/25/20 06:40 PTH Intact 161.4 pg/mL (15-65) H 09/19/20 03:30 Arterial Blood Glucose 121 mg/dL (65-95) H 09/17/20 10:28 Arterial Blood Ionized Calcium 5.0 mg/dL (4.6-5.3) 09/17/20 10:28 Urine Color Yellow (Yellow) 09/18/20 12:00 Urine Turbidity Cloudy (Clear) 09/18/20 12:00 Urine pH 5.0 (5.0-7.0) 09/18/20 12:00 Ur Specific [place] 1.009 (1.003-1.030) 09/18/20 12:00 Urine Protein 30 mg/dl mg/dL (Negative) 09/18/20 12:00 Urine Glucose (UA) Neg mg/dL (Negative) 09/18/20 12:00 Urine Ketones Neg mg/dL (Negative) 09/18/20 12:00 Urine Blood Sm (Negative) 09/18/20 12:00 Urine Nitrite Neg (Negative) 09/18/20 12:00 Urine Bilirubin Neg (Negative) 09/18/20 12:00 Urine Urobilinogen < 2.0 mg/dL (<2.0) 09/18/20 12:00 Ur Leukocyte Esterase Mod (Negative) 09/18/20 12:00 Urine WBC (Auto) 71.0 /HPF (0.0-6.0) H 09/18/20 12:00 Urine RBC (Auto) 2.0 /HPF (0.0-6.0) 09/18/20 12:00 U Epithel Cells (Auto) 1.0 /HPF (0-13.0) 09/18/20 12:00 Urine Bacteria (Auto) 4+ /HPF (Negative) 09/18/20 12:00 Urine WBC Clumps 2+ /HPF 09/18/20 12:00 Hyaline Casts 3 /LPF 09/18/20 12:00 Granular Casts 3 /LPF 09/18/20 12:00 Urine Mucus Few /HPF 09/18/20 12:00 Urine Eosinophils None seen (None Seen) 09/19/20 03:15 Urine Creatinine 61.0 mg/dL (0.1-20.0) H 09/18/20 12:00 Urine Sodium 62 mmol/L 09/18/20 12:00 Random Vancomycin 12.7 ug/mL (0-40.0) 09/19/20 03:30 Valproic Acid 17.8 ug/mL (50-100) L 10/03/20 08:12 Heparin-induced Plt Ab Weak positive (Negative) H 09/22/20 15:12 UF Heparin High Dose 0 % Release 09/22/20 15:12 [place]ON UFH Low Dose 0.1 0 % Release 09/22/20 15:12 [place] UFH Low Dose 0.5 0 % Release 09/22/20 15:12 Lymph Enumerat CD4/CD8 0.70 (0.86-5.00) L 09/19/20 13:35 % CD3 Cells 79 % (57-85) 09/19/20 13:35 Absolute CD3 Count 175 cells/uL (840-3060) L 09/19/20 13:35 % CD4 Cells 31 % (30-61) 09/19/20 13:35 Absolute CD4 Count 70 cells/uL (490-1740) L 09/19/20 13:35 % CD8 Cells 45 % (12-42) H 09/19/20 13:35 Absolute CD8 Count 101 cells/uL (180-1170) L 09/19/20 13:35 % CD19 Cells 12 % (6-29) 09/19/20 13:35 Absolute CD19 Count 26 cells/uL (110-660) L 09/19/20 13:35 C. difficile Tox (PCR) Negative (Negative) 10/09/20 15:15 Coronavirus (PCR) Positive (Negative) A 10/06/20 Unknown Hepatitis A IgM Ab Non-reactive (NonReactive) 09/20/20 17:10 Hep Bs Antigen Non-reactive (Negative) 09/20/20 17:10 Hep B Core IgM Ab Non-reactive (NonReactive) 09/20/20 17:10 Hepatitis C Antibody Non-reactive (NonReactive) 09/20/20 17:10 HIV-1 RNA PCR copies/ml 67 Copies/mL H 09/19/20 13:35 HIV-1 RNA (PCR) log 1.83 Log cps/mL H 09/19/20 13:35 Gardner/IV: Voiding Method Indwelling Catheter Active Medications - Current Medications Current Medications: Generic Name Dose Route Start Last Admin Trade Name Freq PRN Reason Stop Dose Admin Acetaminophen 650 mg 09/17/20 13:52 09/30/20 21:12 Acetaminophen 325 Mg Tab PO 650 mg Q4H PRN Administration Pain MILD(1-3)/Fever >100.5/ANGEL Albuterol 2.5 mg 09/17/20 13:52 09/17/20 20:47 Albuterol 2.5 Mg/3 Ml Nebu IH 2.5 mg Q4HRT PRN Administration Shortness Of Breath Amiodarone HCl 200 mg 10/01/20 22:00 10/11/20 11:25 Amiodarone 200 Mg Tab PO 200 mg BID EDIE Administration Lipase/Protease/Amylase 1 each 09/20/20 13:10 Lipase 10,500/Protease 25,000/Amylase 43,750 (Units) Dr Patrick FEEDTUBE PRN PRN For Clogged Feeding Tube Apixaban 5 mg 10/05/20 22:00 10/11/20 11:25 Apixaban 5 Mg Tab PO 5 mg Q12HR EDIE Administration Ascorbic Acid 500 mg 09/20/20 22:00 10/11/20 11:24 Ascorbic Acid 500 Mg Tab PO 500 mg BID EDIE Administration Cholecalciferol 1,000 unit 09/21/20 10:00 10/11/20 11:24 Cholecalciferol (Vit D3) 1000 Unit (25 Mcg) Tab PO 1,000 unit QDAY EDIE Administration Docusate Sodium 100 mg 10/05/20 11:00 10/11/20 11:30 Docusate Sodium 100 Mg/10 Ml Oral Liqd PO Not Given BID [facility] Emtricitabine 200 mg 09/30/20 11:00 10/10/20 10:14 Emtricitabine 200 Mg Cap PO 200 mg Q48H EDIE Administration Famotidine 20 mg 09/24/20 10:00 10/11/20 11:26 Famotidine 20 Mg Tab PO 20 mg DAILY EDIE Administration Haloperidol Lactate 5 mg 10/01/20 11:34 10/04/20 13:32 Haloperidol Lactate 5 Mg/1 Ml Inj IM 5 mg Q6H PRN Administration Agitation Heparin Sodium (Porcine) 3,000 unit 09/20/20 10:06 Heparin 10,000 Units/10 Ml Vial IV VIRGIL PRN hemodialysis Sodium Chloride 100 mls @ 999 mls/hr 09/20/20 10:06 Nacl 0.9% IV VIRGIL PRN Hypotension Metoprolol Tartrate 5 mg 09/19/20 19:06 09/24/20 10:59 Metoprolol Tartrate 5 Mg/5 Ml Inj IV 5 mg Q8HR PRN Administration HR > 135 Minute Metoprolol Tartrate 12.5 mg 10/05/20 14:00 10/11/20 08:54 Metoprolol Tartrate 25 Mg Tab PO 12.5 mg TID EDIE Administration Midodrine 10 mg 10/07/20 08:00 10/11/20 11:24 Midodrine 5 Mg Tab PO 10 mg TID@0800,1200,1600 EDIE Administration Ondansetron HCl 4 mg 09/17/20 13:52 Ondansetron 4 Mg/2 Ml Inj IV Q8H PRN Nausea And Vomiting Quetiapine Fumarate 12.5 mg 10/03/20 22:00 10/10/20 22:30 Quetiapine 25 Mg Tab PO 12.5 mg QHS EDIE Administration Quetiapine Fumarate 12.5 mg 10/04/20 10:00 10/11/20 11:29 Quetiapine 25 Mg Tab PO 12.5 mg QAM EDIE Administration Simple Syrup 15 ml 09/20/20 13:10 Simple Syrup 15 Ml FEEDTUBE PRN PRN Hypoglycemia Simple Syrup 30 ml 09/20/20 13:10 Simple Syrup 15 Ml FEEDTUBE PRN PRN Hypoglycemia Sodium Bicarbonate 325 mg 09/20/20 13:10 Sodium Bicarbonate 325 Mg Tab FEEDTUBE PRN PRN For Clogged Feeding Tube Sodium Chloride 10 ml 09/17/20 22:00 10/11/20 11:27 Sodium Chloride 0.9% 10 Ml Flush Syringe IV 10 ml BID EDIE Administration Sodium Chloride 10 ml 09/17/20 13:52 09/24/20 09:15 Sodium Chloride 0.9% 10 Ml Flush Syringe IV 10 ml PRN PRN Administration LINE FLUSH Tamsulosin HCl 0.4 mg 10/07/20 13:00 10/11/20 11:26 Tamsulosin 0.4 Mg Cap PO 0.4 mg QDAY EDIE Administration Tenofovir Disoproxil Fumarate 300 mg 09/30/20 11:00 10/10/20 11:10 Tenofovir 300 Mg Tab PO 300 mg Q48H EDIE Administration Valproic Acid 250 mg 10/03/20 22:00 10/11/20 11:27 Valproic Acid 250 Mg Cap PO 250 mg BID EDIE Administration Zinc Sulfate 220 mg 09/21/20 10:00 10/11/20 11:24 Zinc Sulfate 220 Mg Cap PO 220 mg QDAY EDIE Administration Nutrition/Malnutrition Assess - Dietary Evaluation Nutrition/Malnutrition Findings: Nutrition Notes Start: 09/18/20 11:30 Freq: Status: Active Protocol: Document 10/08/20 11:36 AL (Rec: 10/08/20 11:47 AL [id number]) Co-Sign 10/08/20 11:36 LP Nutrition Notes Initial or Follow up Reassessment Current Diagnosis Acute Kidney Injury,Sepsis, Hypertension,Heart Failure, Respiratory Failure Other Pertinent Diagnosis COVID-19 (+), AMS, UTI, afib with RVR, HIV (+) Current Diet Pureed Renal Labs/Tests BUN 28 Cr 2.2 Pertinent Medications Colace Height 6 ft 1 in Weight 88.6 kg Superior Body Weight (kg) 83.63 BMI 25.7 Weight Status Overweight Subjective/Other Information F/U for intakes and ONS tolerance. Pt tolerateing pureed diet at about 60% and ONS at 50% (1 shake). Percent of energy/protein needs met: 83%/90% Burn Absent Trauma Absent GI Symptoms Constipation Current % PO Good (75-100%) Minimum of two criteria No Reduced Ironer Strength Measurably Reduced (severe) #2 Nutrition Diagnosis Inadequate oral intake As Evidenced by Signs and Symptoms pt meeting 83%/90% of estimated energy/protein needs PO Diagnosis Progress(for reassessment Improved documentation) Is patient on ventilator? No Is Patient Ambulatory and/or Out of Bed No REE-([facility]-confined to bed) [phone] Calculation Used for Recommendations [facility] Additional Notes Pro needs: 73 - 88g (1 - 1.2 g /kg 73kg) Fluid needs 1-1.5L/day Nutrition Intervention Change Diet Order: Continue pureed renal diet Add Supplement/Snack (indicate name/kcal Nepro BID /protein ) Provides kCal: 850 Provides Protein (gm) 38 Goal #1 Meet at least 75% of estimated kcal and protein needs via PO Goal #2 Weight maintenance/weight gain Anticipated Discharge Needs: Pureed Renal Diet Follow-Up By: 10/13/20 Additional Comments F/U for stable intakes and ONS tolerance.
--- NOTE | 2020-10-11 13:57 | Progress Note ---
Assessment and Plan 70 YO Male with HIV, HTN, Atrial Fib currently of therapeutic anticoagulation with Xarelto presents to ED for evaluation. Patient reports "I just can't breathe". Patient states that he has experienced shortness of breath over the past 3 days with persistently worsening symptoms over the same timeframe. EMS notified and upon arrival the patient was found to be in distress with a pulse oximetry of 85% on room air. The patient was placed on supplemental oxygen and subsequently transported to [facility] for further care and evaluation of the aforementioned symptoms. The patient was admitted to this hospital 2 days ago, 09/15, for similar complaints and was found to have A. fib with RVR, hyponatremia, hypomagnesemia and acute kidney injury. Shortly after the patient was admitted he left AMA. The patient was seen and evaluated in the emergency department. All lab and imaging studies reviewed. The patient was also found to have a pulse oximetry of 86% on room air which is consistent with acute hypoxemic respiratory failure. The patient was found to have atrial fibrillation with rapid ventricular response, metabolic acidosis, acute kidney injury, as well as symptoms consistent with acute CHF decompensation. The patient was found to be hypotensive with a blood pressure of 78/43 which resulted in a MAP less than 65. Patient admitted to [facility] due to increased risk of cardiopulmonary decompensation. Patient treated with antiarrhythmic therapy in the emergency department, and initiated on CHF protocol. Cardiology and Nep hrology and pulmonary and critical care consulted. Patient awake.and patient presently resting on room air. O2 saturation running 99%. No acute respiratory distress at rest. Patient running low grade temp with no leukocytosis. Patient's coronavirus test was positive. Patient's inflammatory markers: D-dimer: 1772.86, Ferritin: 1,190, Lactic: 1.00, C-reactive protein: 4.20, NT Pro-BNP: 18,204, Troponin < 0.01, CPK: 20, LDH: 276 Medications include apixaban, albuterol, famotidine. Chest x-ray done on 09/20/20 showed no acute pulmonary or pleural findings. No pneumothorax. - Patient Problems (1) Acute hypoxemic respiratory failure Current Visit: Yes Status: Acute Plan to address problem: Patient resting on room air. O2 saturation running 99%. No acute respiratory distress at rest. Albuterol inhaler (2) CHF (congestive heart failure) Current Visit: Yes Status: Acute Qualifiers: Heart failure type: systolic Heart failure chronicity: acute Qualified Code(s): I50.21 - Acute systolic (congestive) heart failure Plan to address problem: Management as per cardiology (3) LOLI (acute kidney injury) Current Visit: Yes Status: Acute Plan to address problem: Management as per nephrology. (4) AMS (altered mental status) Current Visit: Yes Status: Acute Qualifiers: Altered mental status type: somnolence Qualified Code(s): R40.0 - Somnolence Plan to address problem: Management as per primary team. (5) Atrial fibrillation with RVR Current Visit: Yes Status: Acute Plan to address problem: Management as cardiology. Patient is on Apixaban (6) Coronavirus infection Current Visit: Yes Status: Acute Plan to address problem: Patients [place] virus PCR is positive. Management as per ID. (7) HIV (human immunodeficiency virus infection) Current Visit: Yes Status: Chronic Plan to address problem: Management as per ID. Subjective Date of service: 10/11/20 Principal diagnosis: Acute Hypoxemic Resp Failure; COVID-19 infxn; Septic Shock; A-Fib with RVR Interval history: 70 YO Male with HIV, HTN, Atrial Fib currently of therapeutic anticoagulation with Xarelto presents to ED for evaluation. Patient reports "I just can't breathe". Patient states that he has experienced shortness of breath over the past 3 days with persistently worsening symptoms over the same timeframe. EMS notified and upon arrival the patient was found to be in distress with a pulse oximetry of 85% on room air. The patient was placed on supplemental oxygen and subsequently transported to [facility] for further care and evaluation of the aforementioned symptoms. The patient was admitted to this hospital 2 days ago, 09/15, for similar complaints and was found to have A. fib with RVR, hyponatre luba, hypomagnesemia and acute kidney injury. Shortly after the patient was admitted he left A. The patient was seen and evaluated in the emergency department. All lab and imaging studies reviewed. The patient was also found to have a pulse oximetry of 86% on room air which is consistent with acute hypoxemic respiratory failure. The patient was found to have atrial fibrillation with rapid ventricular response, metabolic acidosis, acute kidney injury, as well as symptoms consistent with acute CHF decompensation. The patient was found to be hypotensive with a blood pressure of 78/43 which resulted in a MAP less than 65. Patient admitted to [facility] due to increased risk of cardiopulmonary decompensation. Patient treated with antiarrhythmic therapy in the emergency department, and initiated on CHF protocol. Cardiology and Nephrology and pulmonary and critical care consulted. Patient awake.and patient presently resting on room air. O2 saturation running 99%. No acute respiratory distress at rest. Patient running low grade temp with no leukocytosis. Patient's coronavirus test was positive. Patient's inflammatory markers: D-dimer: 1772.86, Ferritin: 1,190, Lactic: 1.00, C-reactive protein: 4.20, NT Pro-BNP: 18,204, Troponin < 0.01, CPK: 20, LDH: 276 Medications include apixaban, albuterol, famotidine. Chest x-ray done on 09/20/20 showed no acute pulmonary or pleural findings. No pneumothorax. Objective Vital Signs - 12hr 10/11/20 10/11/20 10/11/20 04:22 06:19 06:23 Temperature 95.5 F L 99.1 F Pulse Rate 109 H Respiratory 16 18 Rate Blood Pressure 101/75 O2 Sat by Pulse 99 Oximetry 10/11/20 08:54 Temperature Pulse Rate 109 H Respiratory Rate Blood Pressure O2 Sat by Pulse Oximetry Constitutional: no acute distress, alert, other (elderly male without increased respiratory effort at rest) Eyes: non-icteric ENT: oropharynx moist Neck: supple, no lymphadenopathy, no JVD Effort: normal Ascultation: Bilateral: rhonchi, other (right SCVL Trialysis catheter) Percussion: Bilateral: not dull Cardiovascular: irregular rhythm Gastrointestinal: normoactive bowel sounds, soft, non-tender, non-distended Integumentary: normal Extremities: no cyanosis, no edema, pulses normal, no ischemia or petechiae Neurologic: non-focal exam (grossly), pupils equal and round, CN II-XII normal, motor strength normal and Psychiatric: mood appropriate, affect normal CBC and BMP: 10/07/20 06:45 10/11/20 07:29 ABG, PT/INR, D-dimer: ABG ABG pH 7.508 (7.320-7.450) H 09/17/20 10:28 POC ABG pCO2 22.8 mmHg (32.0-48.0) L 09/17/20 10:28 POC ABG pO2 66.8 mmHg (83-108) L 09/17/20 10:28 POC ABG HCO3 17.7 09/17/20 10:28 ABG O2 Saturation 93.4 (0-100) 09/17/20 10:28 PT/INR, D-dimer PT 15.7 Sec. (12.2-14.9) H 09/24/20 12:13 INR 1.27 (0.87-1.13) H 09/24/20 12:13 D-Dimer 1772.86 ng/mlDDU (0-234) H 09/24/20 05:00 Abnormal lab findings: Abnormal Labs 09/17/20 09/17/20 09/17/20 10:28 10:47 10:47 WBC 11.1 H RBC 3.44 L Hgb 11.2 L Hct 32.8 L MCV 95 H MCH MCHC RDW Plt Count Lymph % (Auto) [place] % (Auto) Lymph # (Auto) [place] # (Auto) Seg Neutrophils % Seg Neuts % (Manual) Lymphocytes % (Manual) 4.0 L Monocytes % (Manual) Nucleated RBC % Seg Neutrophils # Seg Neutrophils # Man 10.7 H Abs Lymphs (Manual) Lymphocytes # (Manual) 0.4 L PT 32.9 H INR 3.16 H APTT 51.1 H D-Dimer Heparin Anti-Xa Level ABG pH 7.508 H POC ABG pCO2 22.8 L POC ABG pO2 66.8 L ABG Oxyhemoglobin 92.7 L ABG Sodium 127.4 L ABG Potassium 4.7 H ABG Glucose 121 H Carboxyhemoglobin 0.4 L Sodium Potassium Chloride Carbon Dioxide BUN Creatinine Glucose POC Glucose Calcium Phosphorus Ferritin Total Bilirubin AST ALT Alkaline Phosphatase Lactate Dehydrogenase Total Creatine Kinase Troponin T C-Reactive Protein NT-Pro-B Natriuret Pep Serum Total Protein Total Protein Albumin Cholesterol LDL Cholesterol Direct HDL Cholesterol PTH Intact Arterial Blood Glucose 121 H Urine WBC (Auto) Urine Creatinine Valproic Acid Heparin-induced Plt Ab Lymph Enumerat CD4/CD8 Absolute CD3 Count Absolute CD4 Count % CD8 Cells Absolute CD8 Count Absolute CD19 Count Coronavirus (PCR) HIV-1 RNA PCR copies/ml HIV-1 RNA (PCR) log 09/17/20 09/17/20 09/17/20 10:47 10:47 13:54 WBC RBC Hgb Hct MCV MCH MCHC RDW Plt Count Lymph % (Auto) [place] % (Auto) Lymph # (Auto) [place] # (Auto) Seg Neutrophils % Seg Neuts % (Manual) Lymphocytes % (Manual) Monocytes % (Manual) Nucleated RBC % Seg Neutrophils # Seg Neutrophils # Man Abs Lymphs (Manual) Lymphocytes # (Manual) PT INR APTT D-Dimer Heparin Anti-Xa Level ABG pH POC ABG pCO2 POC ABG pO2 ABG Oxyhemoglobin ABG Sodium ABG Potassium ABG Glucose Carboxyhemoglobin Sodium 125 L Potassium Chloride 95.3 L Carbon Dioxide 17 L BUN 64 H Creatinine 4.6 H D Glucose 104 H POC Glucose Calcium Phosphorus Ferritin Total Bilirubin AST 69 H ALT Alkaline Phosphatase Lactate Dehydrogenase Total Creatine Kinase Troponin T 0.061 H D 0.058 H C-Reactive Protein NT-Pro-B Natriuret Pep 25350 H Serum Total Protein Total Protein Albumin 1.9 L Cholesterol 48 L LDL Cholesterol Direct 4 L HDL Cholesterol 9 L PTH Intact Arterial Blood Glucose Urine WBC (Auto) Urine Creatinine Valproic Acid Heparin-induced Plt Ab Lymph Enumerat CD4/CD8 Absolute CD3 Count Absolute CD4 Count % CD8 Cells Absolute CD8 Count Absolute CD19 Count Coronavirus (PCR) HIV-1 RNA PCR copies/ml HIV-1 RNA (PCR) log 09/17/20 09/17/20 09/17/20 16:36 17:35 17:35 WBC RBC 3.25 L Hgb 10.7 L Hct 31.1 L MCV 96 H MCH 33 H MCHC RDW Plt Count Lymph % (Auto) [place] % (Auto) Lymph # (Auto) [place] # (Auto) Seg Neutrophils % Seg Neuts % (Manual) Lymphocytes % (Manual) Monocytes % (Manual) Nucleated RBC % Seg Neutrophils # Seg Neutrophils # Man Abs Lymphs (Manual) Lymphocytes # (Manual) PT 31.9 H INR 3.04 H APTT 50.9 H D-Dimer Heparin Anti-Xa Level ABG pH POC ABG pCO2 POC ABG pO2 ABG Oxyhemoglobin ABG Sodium ABG Potassium ABG Glucose Carboxyhemoglobin Sodium Potassium Chloride Carbon Dioxide BUN Creatinine Glucose POC Glucose Calcium Phosphorus Ferritin Total Bilirubin AST ALT Alkaline Phosphatase Lactate Dehydrogenase Total Creatine Kinase Troponin T 0.057 H C-Reactive Protein NT-Pro-B Natriuret Pep Serum Total Protein Total Protein Albumin Cholesterol LDL Cholesterol Direct HDL Cholesterol PTH Intact Arterial Blood Glucose Urine WBC (Auto) Urine Creatinine Valproic Acid Heparin-induced Plt Ab Lymph Enumerat CD4/CD8 Absolute CD3 Count Absolute CD4 Count % CD8 Cells Absolute CD8 Count Absolute CD19 Count Coronavirus (PCR) HIV-1 RNA PCR copies/ml HIV-1 RNA (PCR) log 09/17/20 09/18/20 09/18/20 17:35 03:19 03:19 WBC RBC 3.32 L Hgb 10.9 L Hct 32.0 L MCV 96 H MCH 33 H MCHC RDW Plt Count 138 L Lymph % (Auto) [place] % (Auto) Lymph # (Auto) [place] # (Auto) Seg Neutrophils % Seg Neuts % (Manual) 95.0 H Lymphocytes % (Manual) 3.0 L Monocytes % (Manual) Nucleated RBC % Seg Neutrophils # Seg Neutrophils # Man 8.1 H Abs Lymphs (Manual) Lymphocytes # (Manual) 0.3 L PT INR APTT D-Dimer Heparin Anti-Xa Level ABG pH POC ABG pCO2 POC ABG pO2 ABG Oxyhemoglobin ABG Sodium ABG Potassium ABG Glucose Carboxyhemoglobin Sodium Potassium Chloride Carbon Dioxide 16 L BUN 70 H Creatinine 4.6 H 4.7 H Glucose 104 H POC Glucose Calcium 8.2 L Phosphorus Ferritin Total Bilirubin 1.60 H AST 128 H ALT 67 H Alkaline Phosphatase Lactate Dehydrogenase Total Creatine Kinase Troponin T C-Reactive Protein NT-Pro-B Natriuret Pep Serum Total Protein Total Protein 5.2 L D Albumin 2.5 L Cholesterol LDL Cholesterol Direct HDL Cholesterol PTH Intact Arterial Blood Glucose Urine WBC (Auto) Urine Creatinine Valproic Acid Heparin-induced Plt Ab Lymph Enumerat CD4/CD8 Absolute CD3 Count Absolute CD4 Count % CD8 Cells Absolute CD8 Count Absolute CD19 Count Coronavirus (PCR) HIV-1 RNA PCR copies/ml HIV-1 RNA (PCR) log 09/18/20 09/18/20 09/18/20 09:39 12:00 12:00 WBC RBC Hgb Hct MCV MCH MCHC RDW Plt Count Lymph % (Auto) [place] % (Auto) Lymph # (Auto) [place] # (Auto) Seg Neutrophils % Seg Neuts % (Manual) Lymphocytes % (Manual) Monocytes % (Manual) Nucleated RBC % Seg Neutrophils # Seg Neutrophils # Man Abs Lymphs (Manual) Lymphocytes # (Manual) PT INR APTT D-Dimer Heparin Anti-Xa Level ABG pH POC ABG pCO2 POC ABG pO2 ABG Oxyhemoglobin ABG Sodium ABG Potassium ABG Glucose Carboxyhemoglobin Sodium Potassium Chloride Carbon Dioxide BUN Creatinine Glucose POC Glucose Calcium Phosphorus Ferritin Total Bilirubin AST ALT Alkaline Phosphatase Lactate Dehydrogenase Total Creatine Kinase Troponin T C-Reactive Protein NT-Pro-B Natriuret Pep Serum Total Protein Total Protein Albumin Cholesterol LDL Cholesterol Direct HDL Cholesterol PTH Intact Arterial Blood Glucose Urine WBC (Auto) 71.0 H Urine Creatinine 61.0 H Valproic Acid Heparin-induced Plt Ab Lymph Enumerat CD4/CD8 Absolute CD3 Count Absolute CD4 Count % CD8 Cells Absolute CD8 Count Absolute CD19 Count Coronavirus (PCR) Positive A HIV-1 RNA PCR copies/ml HIV-1 RNA (PCR) log 09/18/20 09/18/20 09/18/20 15:07 15:07 18:33 WBC RBC Hgb 10.7 L Hct 31.3 L MCV MCH MCHC RDW Plt Count Lymph % (Auto) [place] % (Auto) Lymph # (Auto) [place] # (Auto) Seg Neutrophils % Seg Neuts % (Manual) Lymphocytes % (Manual) Monocytes % (Manual) Nucleated RBC % Seg Neutrophils # Seg Neutrophils # Man Abs Lymphs (Manual) Lymphocytes # (Manual) PT 20.3 H INR 1.73 H APTT 40.8 H D-Dimer Heparin Anti-Xa Level 1.09 H ABG pH POC ABG pCO2 POC ABG pO2 ABG Oxyhemoglobin ABG Sodium ABG Potassium ABG Glucose Carboxyhemoglobin Sodium Potassium Chloride Carbon Dioxide BUN Creatinine Glucose POC Glucose Calcium Phosphorus Ferritin Total Bilirubin AST ALT Alkaline Phosphatase Lactate Dehydrogenase Total Creatine Kinase Troponin T C-Reactive Protein NT-Pro-B Natriuret Pep Serum Total Protein Total Protein Albumin Cholesterol LDL Cholesterol Direct HDL Cholesterol PTH Intact Arterial Blood Glucose Urine WBC (Auto) Urine Creatinine Valproic Acid Heparin-induced Plt Ab Lymph Enumerat CD4/CD8 Absolute CD3 Count Absolute CD4 Count % CD8 Cells Absolute CD8 Count Absolute CD19 Count Coronavirus (PCR) HIV-1 RNA PCR copies/ml HIV-1 RNA (PCR) log 09/19/20 09/19/20 09/19/20 03:30 03:30 03:30 WBC RBC 3.29 L Hgb 10.9 L Hct 30.9 L MCV MCH 33 H MCHC 35 H RDW Plt Count Lymph % (Auto) [place] % (Auto) Lymph # (Auto) [place] # (Auto) Seg Neutrophils % Seg Neuts % (Manual) Lymphocytes % (Manual) Monocytes % (Manual) Nucleated RBC % Seg Neutrophils # Seg Neutrophils # Man Abs Lymphs (Manual) Lymphocytes # (Manual) PT INR APTT D-Dimer Heparin Anti-Xa Level ABG pH POC ABG pCO2 POC ABG pO2 ABG Oxyhemoglobin ABG Sodium ABG Potassium ABG Glucose Carboxyhemoglobin Sodium 133 L Potassium Chloride Carbon Dioxide 17 L BUN 94 H Creatinine 5.0 H Glucose 120 H POC Glucose Calcium Phosphorus 6.30 H Ferritin Total Bilirubin 2.40 H AST 163 H ALT 109 H Alkaline Phosphatase 160 H Lactate Dehydrogenase Total Creatine Kinase 20 L Troponin T C-Reactive Protein NT-Pro-B Natriuret Pep Serum Total Protein Total Protein 6.2 L Albumin 2.0 L Cholesterol LDL Cholesterol Direct HDL Cholesterol PTH Intact 161.4 H Arterial Blood Glucose Urine WBC (Auto) Urine Creatinine Valproic Acid Heparin-induced Plt Ab Lymph Enumerat CD4/CD8 Absolute CD3 Count Absolute CD4 Count % CD8 Cells Absolute CD8 Count Absolute CD19 Count Coronavirus (PCR) HIV-1 RNA PCR copies/ml HIV-1 RNA (PCR) log 09/19/20 09/19/20 09/19/20 06:35 13:35 13:35 WBC RBC Hgb Hct MCV MCH MCHC RDW Plt Count Lymph % (Auto) [place] % (Auto) Lymph # (Auto) [place] # (Auto) Seg Neutrophils % Seg Neuts % (Manual) Lymphocytes % (Manual) Monocytes % (Manual) Nucleated RBC % Seg Neutrophils # Seg Neutrophils # Man Abs Lymphs (Manual) 223 L Lymphocytes # (Manual) PT INR APTT D-Dimer Heparin Anti-Xa Level ABG pH POC ABG pCO2 POC ABG pO2 ABG Oxyhemoglobin ABG Sodium ABG Potassium ABG Glucose Carboxyhemoglobin Sodium Potassium Chloride Carbon Dioxide BUN Creatinine Glucose POC Glucose 123 H Calcium Phosphorus Ferritin Total Bilirubin AST ALT Alkaline Phosphatase Lactate Dehydrogenase Total Creatine Kinase Troponin T C-Reactive Protein NT-Pro-B Natriuret Pep Serum Total Protein Total Protein Albumin Cholesterol LDL Cholesterol Direct HDL Cholesterol PTH Intact Arterial Blood Glucose Urine WBC (Auto) Urine Creatinine Valproic Acid Heparin-induced Plt Ab Lymph Enumerat CD4/CD8 0.70 L Absolute CD3 Count 175 L Absolute CD4 Count 70 L % CD8 Cells 45 H Absolute CD8 Count 101 L Absolute CD19 Count 26 L Coronavirus (PCR) HIV-1 RNA PCR copies/ml 67 H HIV-1 RNA (PCR) log 1.83 H 09/19/20 09/20/20 09/20/20 23:37 04:00 04:00 WBC RBC 3.43 L Hgb 11.1 L Hct 32.2 L MCV MCH MCHC RDW Plt Count 131 L Lymph % (Auto) [place] % (Auto) Lymph # (Auto) [place] # (Auto) Seg Neutrophils % Seg Neuts % (Manual) 88.0 H Lymphocytes % (Manual) 3.0 L Monocytes % (Manual) 9.0 H Nucleated RBC % Seg Neutrophils # Seg Neutrophils # Man 8.2 H Abs Lymphs (Manual) Lymphocytes # (Manual) 0.3 L PT INR APTT D-Dimer Heparin Anti-Xa Level 0.10 L ABG pH POC ABG pCO2 POC ABG pO2 ABG Oxyhemoglobin ABG Sodium ABG Potassium ABG Glucose Carboxyhemoglobin Sodium Potassium Chloride Carbon Dioxide BUN Creatinine Glucose POC Glucose 135 H Calcium Phosphorus Ferritin Total Bilirubin AST ALT Alkaline Phosphatase Lactate Dehydrogenase Total Creatine Kinase Troponin T C-Reactive Protein NT-Pro-B Natriuret Pep Serum Total Protein Total Protein Albumin Cholesterol LDL Cholesterol Direct HDL Cholesterol PTH Intact Arterial Blood Glucose Urine WBC (Auto) Urine Creatinine Valproic Acid Heparin-induced Plt Ab Lymph Enumerat CD4/CD8 Absolute CD3 Count Absolute CD4 Count % CD8 Cells Absolute CD8 Count Absolute CD19 Count Coronavirus (PCR) HIV-1 RNA PCR copies/ml HIV-1 RNA (PCR) log 09/20/20 09/20/20 09/20/20 04:00 05:37 11:20 WBC RBC Hgb Hct MCV MCH MCHC RDW Plt Count Lymph % (Auto) [place] % (Auto) Lymph # (Auto) [place] # (Auto) Seg Neutrophils % Seg Neuts % (Manual) Lymphocytes % (Manual) Monocytes % (Manual) Nucleated RBC % Seg Neutrophils # Seg Neutrophils # Man Abs Lymphs (Manual) Lymphocytes # (Manual) PT INR APTT D-Dimer Heparin Anti-Xa Level ABG pH POC ABG pCO2 POC ABG pO2 ABG Oxyhemoglobin ABG Sodium ABG Potassium ABG Glucose Carboxyhemoglobin Sodium Potassium Chloride Carbon Dioxide 16 L BUN 119 H Creatinine 6.2 H Glucose 136 H POC Glucose 137 H 108 H Calcium Phosphorus Ferritin Total Bilirubin AST ALT Alkaline Phosphatase Lactate Dehydrogenase Total Creatine Kinase Troponin T C-Reactive Protein NT-Pro-B Natriuret Pep Serum Total Protein Total Protein Albumin Cholesterol LDL Cholesterol Direct HDL Cholesterol PTH Intact Arterial Blood Glucose Urine WBC (Auto) Urine Creatinine Valproic Acid Heparin-induced Plt Ab Lymph Enumerat CD4/CD8 Absolute CD3 Count Absolute CD4 Count % CD8 Cells Absolute CD8 Count Absolute CD19 Count Coronavirus (PCR) HIV-1 RNA PCR copies/ml HIV-1 RNA (PCR) log 09/20/20 09/20/20 09/20/20 17:10 17:10 17:10 WBC RBC Hgb Hct MCV MCH MCHC RDW Plt Count Lymph % (Auto) [place] % (Auto) Lymph # (Auto) [place] # (Auto) Seg Neutrophils % Seg Neuts % (Manual) Lymphocytes % (Manual) Monocytes % (Manual) Nucleated RBC % Seg Neutrophils # Seg Neutrophils # Man Abs Lymphs (Manual) Lymphocytes # (Manual) PT INR APTT D-Dimer 4271.58 H Heparin Anti-Xa Level ABG pH POC ABG pCO2 POC ABG pO2 ABG Oxyhemoglobin ABG Sodium ABG Potassium ABG Glucose Carboxyhemoglobin Sodium Potassium Chloride Carbon Dioxide BUN Creatinine 6.0 H Glucose POC Glucose Calcium Phosphorus Ferritin 696.6 H Total Bilirubin AST ALT Alkaline Phosphatase Lactate Dehydrogenase Total Creatine Kinase Troponin T C-Reactive Protein NT-Pro-B Natriuret Pep Serum Total Protein Total Protein Albumin Cholesterol LDL Cholesterol Direct HDL Cholesterol PTH Intact Arterial Blood Glucose Urine WBC (Auto) Urine Creatinine Valproic Acid Heparin-induced Plt Ab Lymph Enumerat CD4/CD8 Absolute CD3 Count Absolute CD4 Count % CD8 Cells Absolute CD8 Count Absolute CD19 Count Coronavirus (PCR) HIV-1 RNA PCR copies/ml HIV-1 RNA (PCR) log 09/20/20 09/20/20 09/20/20 17:10 18:21 23:14 WBC RBC Hgb Hct MCV MCH MCHC RDW Plt Count Lymph % (Auto) [place] % (Auto) Lymph # (Auto) [place] # (Auto) Seg Neutrophils % Seg Neuts % (Manual) Lymphocytes % (Manual) Monocytes % (Manual) Nucleated RBC % Seg Neutrophils # Seg Neutrophils # Man Abs Lymphs (Manual) Lymphocytes # (Manual) PT INR APTT D-Dimer Heparin Anti-Xa Level ABG pH POC ABG pCO2 POC ABG pO2 ABG Oxyhemoglobin ABG Sodium ABG Potassium ABG Glucose Carboxyhemoglobin Sodium Potassium Chloride Carbon Dioxide BUN Creatinine Glucose POC Glucose 129 H 170 H Calcium Phosphorus Ferritin Total Bilirubin AST ALT Alkaline Phosphatase Lactate Dehydrogenase 209 H Total Creatine Kinase Troponin T C-Reactive Protein 10.60 H NT-Pro-B Natriuret Pep Serum Total Protein Total Protein Albumin Cholesterol LDL Cholesterol Direct HDL Cholesterol PTH Intact Arterial Blood Glucose Urine WBC (Auto) Urine Creatinine Valproic Acid Heparin-induced Plt Ab Lymph Enumerat CD4/CD8 Absolute CD3 Count Absolute CD4 Count % CD8 Cells Absolute CD8 Count Absolute CD19 Count Coronavirus (PCR) HIV-1 RNA PCR copies/ml HIV-1 RNA (PCR) log 09/21/20 09/21/20 09/21/20 05:35 17:09 23:18 WBC RBC Hgb Hct MCV MCH MCHC RDW Plt Count Lymph % (Auto) [place] % (Auto) Lymph # (Auto) [place] # (Auto) Seg Neutrophils % Seg Neuts % (Manual) Lymphocytes % (Manual) Monocytes % (Manual) Nucleated RBC % Seg Neutrophils # Seg Neutrophils # Man Abs Lymphs (Manual) Lymphocytes # (Manual) PT INR APTT D-Dimer Heparin Anti-Xa Level ABG pH POC ABG pCO2 POC ABG pO2 ABG Oxyhemoglobin ABG Sodium ABG Potassium ABG Glucose Carboxyhemoglobin Sodium Potassium Chloride Carbon Dioxide BUN Creatinine Glucose POC Glucose 170 H 140 H 139 H Calcium Phosphorus Ferritin Total Bilirubin AST ALT Alkaline Phosphatase Lactate Dehydrogenase Total Creatine Kinase Troponin T C-Reactive Protein NT-Pro-B Natriuret Pep Serum Total Protein Total Protein Albumin Cholesterol LDL Cholesterol Direct HDL Cholesterol PTH Intact Arterial Blood Glucose Urine WBC (Auto) Urine Creatinine Valproic Acid Heparin-induced Plt Ab Lymph Enumerat CD4/CD8 Absolute CD3 Count Absolute CD4 Count % CD8 Cells Absolute CD8 Count Absolute CD19 Count Coronavirus (PCR) HIV-1 RNA PCR copies/ml HIV-1 RNA (PCR) log 09/21/20 09/21/20 09/21/20 Unknown Unknown Unknown WBC RBC 3.56 L Hgb 11.3 L Hct 33.2 L MCV MCH MCHC RDW Plt Count 125 L Lymph % (Auto) [place] % (Auto) Lymph # (Auto) [place] # (Auto) Seg Neutrophils % Seg Neuts % (Manual) 90.0 H Lymphocytes % (Manual) 8.0 L Monocytes % (Manual) Nucleated RBC % 1.0 H Seg Neutrophils # Seg Neutrophils # Man 9.4 H Abs Lymphs (Manual) Lymphocytes # (Manual) 0.8 L PT 16.8 H INR 1.36 H APTT D-Dimer Heparin Anti-Xa Level ABG pH POC ABG pCO2 POC ABG pO2 ABG Oxyhemoglobin ABG Sodium ABG Potassium ABG Glucose Carboxyhemoglobin Sodium Potassium Chloride Carbon Dioxide BUN 83 H Creatinine 4.3 H Glucose 163 H POC Glucose Calcium Phosphorus Ferritin Total Bilirubin 2.40 H AST ALT 57 H Alkaline Phosphatase < 5 L Lactate Dehydrogenase Total Creatine Kinase Troponin T C-Reactive Protein NT-Pro-B Natriuret Pep Serum Total Protein Total Protein Albumin 1.9 L Cholesterol LDL Cholesterol Direct HDL Cholesterol PTH Intact Arterial Blood Glucose Urine WBC (Auto) Urine Creatinine Valproic Acid Heparin-induced Plt Ab Lymph Enumerat CD4/CD8 Absolute CD3 Count Absolute CD4 Count % CD8 Cells Absolute CD8 Count Absolute CD19 Count Coronavirus (PCR) HIV-1 RNA PCR copies/ml HIV-1 RNA (PCR) log 09/22/20 09/22/20 09/22/20 05:38 05:38 05:38 WBC 15.8 H RBC 3.36 L Hgb 10.8 L Hct 31.0 L MCV MCH MCHC 35 H RDW Plt Count 68 L Lymph % (Auto) 3.1 L [place] % (Auto) 10.7 H Lymph # (Auto) 0.5 L [place] # (Auto) 1.7 H Seg Neutrophils % 85.9 H Seg Neuts % (Manual) Lymphocytes % (Manual) Monocytes % (Manual) Nucleated RBC % Seg Neutrophils # 13.6 H Seg Neutrophils # Man Abs Lymphs (Manual) Lymphocytes # (Manual) PT INR APTT D-Dimer 3281.49 H Heparin Anti-Xa Level ABG pH POC ABG pCO2 POC ABG pO2 ABG Oxyhemoglobin ABG Sodium ABG Potassium ABG Glucose Carboxyhemoglobin Sodium Potassium Chloride Carbon Dioxide BUN 61 H Creatinine 3.1 H Glucose 129 H POC Glucose Calcium Phosphorus Ferritin Total Bilirubin AST ALT Alkaline Phosphatase Lactate Dehydrogenase 277 H Total Creatine Kinase Troponin T C-Reactive Protein 6.60 H NT-Pro-B Natriuret Pep Serum Total Protein Total Protein Albumin Cholesterol LDL Cholesterol Direct HDL Cholesterol PTH Intact Arterial Blood Glucose Urine WBC (Auto) Urine Creatinine Valproic Acid Heparin-induced Plt Ab Lymph Enumerat CD4/CD8 Absolute CD3 Count Absolute CD4 Count % CD8 Cells Absolute CD8 Count Absolute CD19 Count Coronavirus (PCR) HIV-1 RNA PCR copies/ml HIV-1 RNA (PCR) log 09/22/20 09/22/20 09/22/20 05:38 05:44 11:26 WBC RBC Hgb Hct MCV MCH MCHC RDW Plt Count Lymph % (Auto) [place] % (Auto) Lymph # (Auto) [place] # (Auto) Seg Neutrophils % Seg Neuts % (Manual) Lymphocytes % (Manual) Monocytes % (Manual) Nucleated RBC % Seg Neutrophils # Seg Neutrophils # Man Abs Lymphs (Manual) Lymphocytes # (Manual) PT INR APTT D-Dimer Heparin Anti-Xa Level ABG pH POC ABG pCO2 POC ABG pO2 ABG Oxyhemoglobin ABG Sodium ABG Potassium ABG Glucose Carboxyhemoglobin Sodium Potassium Chloride Carbon Dioxide BUN Creatinine Glucose POC Glucose 112 H 131 H Calcium Phosphorus Ferritin 927.8 H Total Bilirubin AST ALT Alkaline Phosphatase Lactate Dehydrogenase Total Creatine Kinase Troponin T C-Reactive Protein NT-Pro-B Natriuret Pep Serum Total Protein Total Protein Albumin Cholesterol LDL Cholesterol Direct HDL Cholesterol PTH Intact Arterial Blood Glucose Urine WBC (Auto) Urine Creatinine Valproic Acid Heparin-induced Plt Ab Lymph Enumerat CD4/CD8 Absolute CD3 Count Absolute CD4 Count % CD8 Cells Absolute CD8 Count Absolute CD19 Count Coronavirus (PCR) HIV-1 RNA PCR copies/ml HIV-1 RNA (PCR) log 09/22/20 09/22/20 09/22/20 15:12 15:12 15:12 WBC RBC Hgb Hct MCV MCH MCHC RDW Plt Count Lymph % (Auto) [place] % (Auto) Lymph # (Auto) [place] # (Auto) Seg Neutrophils % Seg Neuts % (Manual) Lymphocytes % (Manual) Monocytes % (Manual) Nucleated RBC % Seg Neutrophils # Seg Neutrophils # Man Abs Lymphs (Manual) Lymphocytes # (Manual) PT 17.3 H INR 1.42 H APTT D-Dimer Heparin Anti-Xa Level ABG pH POC ABG pCO2 POC ABG pO2 ABG Oxyhemoglobin ABG Sodium ABG Potassium ABG Glucose Carboxyhemoglobin Sodium Potassium Chloride Carbon Dioxide BUN Creatinine 3.0 H Glucose POC Glucose Calcium Phosphorus Ferritin Total Bilirubin AST ALT Alkaline Phosphatase Lactate Dehydrogenase Total Creatine Kinase Troponin T C-Reactive Protein NT-Pro-B Natriuret Pep Serum Total Protein Total Protein Albumin Cholesterol LDL Cholesterol Direct HDL Cholesterol PTH Intact Arterial Blood Glucose Urine WBC (Auto) Urine Creatinine Valproic Acid Heparin-induced Plt Ab Weak positive H Lymph Enumerat CD4/CD8 Absolute CD3 Count Absolute CD4 Count % CD8 Cells Absolute CD8 Count Absolute CD19 Count Coronavirus (PCR) HIV-1 RNA PCR copies/ml HIV-1 RNA (PCR) log 09/22/20 09/22/20 09/23/20 16:53 23:55 04:36 WBC 14.2 H RBC 3.05 L Hgb 9.8 L Hct 28.4 L MCV MCH MCHC RDW Plt Count 39 L Lymph % (Auto) [place] % (Auto) Lymph # (Auto) [place] # (Auto) Seg Neutrophils % Seg Neuts % (Manual) 91.0 H Lymphocytes % (Manual) 2.0 L Monocytes % (Manual) Nucleated RBC % Seg Neutrophils # Seg Neutrophils # Man 12.9 H Abs Lymphs (Manual) Lymphocytes # (Manual) 0.3 L PT INR APTT D-Dimer Heparin Anti-Xa Level ABG pH POC ABG pCO2 POC ABG pO2 ABG Oxyhemoglobin ABG Sodium ABG Potassium ABG Glucose Carboxyhemoglobin Sodium Potassium Chloride Carbon Dioxide BUN Creatinine Glucose POC Glucose 138 H 171 H Calcium Phosphorus Ferritin Total Bilirubin AST ALT Alkaline Phosphatase Lactate Dehydrogenase Total Creatine Kinase Troponin T C-Reactive Protein NT-Pro-B Natriuret Pep Serum Total Protein Total Protein Albumin Cholesterol LDL Cholesterol Direct HDL Cholesterol PTH Intact Arterial Blood Glucose Urine WBC (Auto) Urine Creatinine Valproic Acid Heparin-induced Plt Ab Lymph Enumerat CD4/CD8 Absolute CD3 Count Absolute CD4 Count % CD8 Cells Absolute CD8 Count Absolute CD19 Count Coronavirus (PCR) HIV-1 RNA PCR copies/ml HIV-1 RNA (PCR) log 09/23/20 09/23/20 09/23/20 04:36 05:41 11:38 WBC RBC Hgb Hct MCV MCH MCHC RDW Plt Count Lymph % (Auto) [place] % (Auto) Lymph # (Auto) [place] # (Auto) Seg Neutrophils % Seg Neuts % (Manual) Lymphocytes % (Manual) Monocytes % (Manual) Nucleated RBC % Seg Neutrophils # Seg Neutrophils # Man Abs Lymphs (Manual) Lymphocytes # (Manual) PT INR APTT D-Dimer Heparin Anti-Xa Level ABG pH POC ABG pCO2 POC ABG pO2 ABG Oxyhemoglobin ABG Sodium ABG Potassium ABG Glucose Carboxyhemoglobin Sodium Potassium Chloride Carbon Dioxide BUN 76 H Creatinine 3.1 H Glucose 157 H POC Glucose 136 H 141 H Calcium Phosphorus Ferritin Total Bilirubin AST ALT Alkaline Phosphatase Lactate Dehydrogenase Total Creatine Kinase Troponin T C-Reactive Protein NT-Pro-B Natriuret Pep Serum Total Protein Total Protein Albumin Cholesterol LDL Cholesterol Direct HDL Cholesterol PTH Intact Arterial Blood Glucose Urine WBC (Auto) Urine Creatinine Valproic Acid Heparin-induced Plt Ab Lymph Enumerat CD4/CD8 Absolute CD3 Count Absolute CD4 Count % CD8 Cells Absolute CD8 Count Absolute CD19 Count Coronavirus (PCR) HIV-1 RNA PCR copies/ml HIV-1 RNA (PCR) log 09/23/20 09/23/20 09/24/20 17:09 23:51 05:00 WBC 24.2 H RBC 3.23 L Hgb 10.0 L Hct 29.7 L MCV MCH MCHC RDW Plt Count 74 L Lymph % (Auto) [place] % (Auto) Lymph # (Auto) [place] # (Auto) Seg Neutrophils % Seg Neuts % (Manual) Lymphocytes % (Manual) Monocytes % (Manual) Nucleated RBC % Seg Neutrophils # Seg Neutrophils # Man Abs Lymphs (Manual) Lymphocytes # (Manual) PT INR APTT D-Dimer Heparin Anti-Xa Level ABG pH POC ABG pCO2 POC ABG pO2 ABG Oxyhemoglobin ABG Sodium ABG Potassium ABG Glucose Carboxyhemoglobin Sodium Potassium Chloride Carbon Dioxide BUN Creatinine Glucose POC Glucose 128 H 128 H Calcium Phosphorus Ferritin Total Bilirubin AST ALT Alkaline Phosphatase Lactate Dehydrogenase Total Creatine Kinase Troponin T C-Reactive Protein NT-Pro-B Natriuret Pep Serum Total Protein Total Protein Albumin Cholesterol LDL Cholesterol Direct HDL Cholesterol PTH Intact Arterial Blood Glucose Urine WBC (Auto) Urine Creatinine Valproic Acid Heparin-induced Plt Ab Lymph Enumerat CD4/CD8 Absolute CD3 Count Absolute CD4 Count % CD8 Cells Absolute CD8 Count Absolute CD19 Count Coronavirus (PCR) HIV-1 RNA PCR copies/ml HIV-1 RNA (PCR) log 09/24/20 09/24/20 09/24/20 05:00 05:00 05:00 WBC RBC Hgb Hct MCV MCH MCHC RDW Plt Count Lymph % (Auto) [place] % (Auto) Lymph # (Auto) [place] # (Auto) Seg Neutrophils % Seg Neuts % (Manual) Lymphocytes % (Manual) Monocytes % (Manual) Nucleated RBC % Seg Neutrophils # Seg Neutrophils # Man Abs Lymphs (Manual) Lymphocytes # (Manual) PT INR APTT D-Dimer 1772.86 H Heparin Anti-Xa Level ABG pH POC ABG pCO2 POC ABG pO2 ABG Oxyhemoglobin ABG Sodium ABG Potassium ABG Glucose Carboxyhemoglobin Sodium Potassium Chloride 107.1 H Carbon Dioxide BUN 90 H Creatinine 3.1 H Glucose 118 H POC Glucose Calcium Phosphorus Ferritin 1190.0 H Total Bilirubin AST ALT Alkaline Phosphatase Lactate Dehydrogenase 276 H Total Creatine Kinase Troponin T C-Reactive Protein 4.20 H NT-Pro-B Natriuret Pep Serum Total Protein Total Protein Albumin Cholesterol LDL Cholesterol Direct HDL Cholesterol PTH Intact Arterial Blood Glucose Urine WBC (Auto) Urine Creatinine Valproic Acid Heparin-induced Plt Ab Lymph Enumerat CD4/CD8 Absolute CD3 Count Absolute CD4 Count % CD8 Cells Absolute CD8 Count Absolute CD19 Count Coronavirus (PCR) HIV-1 RNA PCR copies/ml HIV-1 RNA (PCR) log 09/24/20 09/24/20 09/24/20 05:12 11:25 12:09 WBC RBC Hgb Hct MCV MCH MCHC RDW Plt Count Lymph % (Auto) [place] % (Auto) Lymph # (Auto) [place] # (Auto) Seg Neutrophils % Seg Neuts % (Manual) Lymphocytes % (Manual) Monocytes % (Manual) Nucleated RBC % Seg Neutrophils # Seg Neutrophils # Man Abs Lymphs (Manual) Lymphocytes # (Manual) PT INR APTT D-Dimer Heparin Anti-Xa Level ABG pH POC ABG pCO2 POC ABG pO2 ABG Oxyhemoglobin ABG Sodium ABG Potassium ABG Glucose Carboxyhemoglobin Sodium Potassium Chloride Carbon Dioxide BUN Creatinine 3.1 H Glucose POC Glucose 114 H 110 H Calcium Phosphorus Ferritin Total Bilirubin AST ALT Alkaline Phosphatase Lactate Dehydrogenase Total Creatine Kinase Troponin T C-Reactive Protein NT-Pro-B Natriuret Pep Serum Total Protein Total Protein Albumin Cholesterol LDL Cholesterol Direct HDL Cholesterol PTH Intact Arterial Blood Glucose Urine WBC (Auto) Urine Creatinine Valproic Acid Heparin-induced Plt Ab Lymph Enumerat CD4/CD8 Absolute CD3 Count Absolute CD4 Count % CD8 Cells Absolute CD8 Count Absolute CD19 Count Coronavirus (PCR) HIV-1 RNA PCR copies/ml HIV-1 RNA (PCR) log 09/24/20 09/24/20 09/24/20 12:13 12:13 17:41 WBC 20.8 H RBC 3.04 L Hgb 9.5 L Hct 28.0 L MCV MCH MCHC RDW Plt Count 78 L Lymph % (Auto) [place] % (Auto) Lymph # (Auto) [place] # (Auto) Seg Neutrophils % Seg Neuts % (Manual) Lymphocytes % (Manual) Monocytes % (Manual) Nucleated RBC % Seg Neutrophils # Seg Neutrophils # Man Abs Lymphs (Manual) Lymphocytes # (Manual) PT 15.7 H INR 1.27 H APTT D-Dimer Heparin Anti-Xa Level ABG pH POC ABG pCO2 POC ABG pO2 ABG Oxyhemoglobin ABG Sodium ABG Potassium ABG Glucose Carboxyhemoglobin Sodium Potassium Chloride Carbon Dioxide BUN Creatinine Glucose POC Glucose 133 H Calcium Phosphorus Ferritin Total Bilirubin AST ALT Alkaline Phosphatase Lactate Dehydrogenase Total Creatine Kinase Troponin T C-Reactive Protein NT-Pro-B Natriuret Pep Serum Total Protein Total Protein Albumin Cholesterol LDL Cholesterol Direct HDL Cholesterol PTH Intact Arterial Blood Glucose Urine WBC (Auto) Urine Creatinine Valproic Acid Heparin-induced Plt Ab Lymph Enumerat CD4/CD8 Absolute CD3 Count Absolute CD4 Count % CD8 Cells Absolute CD8 Count Absolute CD19 Count Coronavirus (PCR) HIV-1 RNA PCR copies/ml HIV-1 RNA (PCR) log 09/24/20 09/25/20 09/25/20 23:34 06:40 06:40 WBC RBC Hgb Hct MCV MCH MCHC RDW Plt Count Lymph % (Auto) [place] % (Auto) Lymph # (Auto) [place] # (Auto) Seg Neutrophils % Seg Neuts % (Manual) Lymphocytes % (Manual) Monocytes % (Manual) Nucleated RBC % Seg Neutrophils # Seg Neutrophils # Man Abs Lymphs (Manual) Lymphocytes # (Manual) PT INR APTT D-Dimer Heparin Anti-Xa Level ABG pH POC ABG pCO2 POC ABG pO2 ABG Oxyhemoglobin ABG Sodium ABG Potassium ABG Glucose Carboxyhemoglobin Sodium Potassium Chloride 109.0 H Carbon Dioxide BUN 98 H Creatinine 3.0 H 3.0 H Glucose 111 H POC Glucose 113 H Calcium Phosphorus Ferritin Total Bilirubin AST ALT Alkaline Phosphatase Lactate Dehydrogenase Total Creatine Kinase Troponin T C-Reactive Protein NT-Pro-B Natriuret Pep Serum Total Protein Total Protein Albumin Cholesterol LDL Cholesterol Direct HDL Cholesterol PTH Intact Arterial Blood Glucose Urine WBC (Auto) Urine Creatinine Valproic Acid Heparin-induced Plt Ab Lymph Enumerat CD4/CD8 Absolute CD3 Count Absolute CD4 Count % CD8 Cells Absolute CD8 Count Absolute CD19 Count Coronavirus (PCR) HIV-1 RNA PCR copies/ml HIV-1 RNA (PCR) log 09/25/20 09/25/20 09/25/20 10:45 12:45 18:03 WBC 20.7 H RBC 3.33 L Hgb 10.2 L Hct 31.3 L MCV MCH MCHC RDW Plt Count 139 L Lymph % (Auto) [place] % (Auto) Lymph # (Auto) [place] # (Auto) Seg Neutrophils % Seg Neuts % (Manual) Lymphocytes % (Manual) Monocytes % (Manual) Nucleated RBC % Seg Neutrophils # Seg Neutrophils # Man Abs Lymphs (Manual) Lymphocytes # (Manual) PT INR APTT D-Dimer Heparin Anti-Xa Level ABG pH POC ABG pCO2 POC ABG pO2 ABG Oxyhemoglobin ABG Sodium ABG Potassium ABG Glucose Carboxyhemoglobin Sodium Potassium Chloride Carbon Dioxide BUN Creatinine Glucose POC Glucose 108 H 114 H Calcium Phosphorus Ferritin Total Bilirubin AST ALT Alkaline Phosphatase Lactate Dehydrogenase Total Creatine Kinase Troponin T C-Reactive Protein NT-Pro-B Natriuret Pep Serum Total Protein Total Protein Albumin Cholesterol LDL Cholesterol Direct HDL Cholesterol PTH Intact Arterial Blood Glucose Urine WBC (Auto) Urine Creatinine Valproic Acid Heparin-induced Plt Ab Lymph Enumerat CD4/CD8 Absolute CD3 Count Absolute CD4 Count % CD8 Cells Absolute CD8 Count Absolute CD19 Count Coronavirus (PCR) HIV-1 RNA PCR copies/ml HIV-1 RNA (PCR) log 09/25/20 09/26/20 09/26/20 23:29 05:00 07:06 WBC 17.0 H RBC 3.10 L Hgb 9.6 L Hct 28.8 L MCV MCH MCHC RDW Plt Count Lymph % (Auto) [place] % (Auto) Lymph # (Auto) [place] # (Auto) Seg Neutrophils % Seg Neuts % (Manual) Lymphocytes % (Manual) Monocytes % (Manual) Nucleated RBC % Seg Neutrophils # Seg Neutrophils # Man Abs Lymphs (Manual) Lymphocytes # (Manual) PT INR APTT D-Dimer Heparin Anti-Xa Level ABG pH POC ABG pCO2 POC ABG pO2 ABG Oxyhemoglobin ABG Sodium ABG Potassium ABG Glucose Carboxyhemoglobin Sodium Potassium Chloride Carbon Dioxide BUN Creatinine Glucose POC Glucose 111 H 115 H Calcium Phosphorus Ferritin Total Bilirubin AST ALT Alkaline Phosphatase Lactate Dehydrogenase Total Creatine Kinase Troponin T C-Reactive Protein NT-Pro-B Natriuret Pep Serum Total Protein Total Protein Albumin Cholesterol LDL Cholesterol Direct HDL Cholesterol PTH Intact Arterial Blood Glucose Urine WBC (Auto) Urine Creatinine Valproic Acid Heparin-induced Plt Ab Lymph Enumerat CD4/CD8 Absolute CD3 Count Absolute CD4 Count % CD8 Cells Absolute CD8 Count Absolute CD19 Count Coronavirus (PCR) HIV-1 RNA PCR copies/ml HIV-1 RNA (PCR) log 09/26/20 09/26/20 09/27/20 07:06 17:26 04:00 WBC RBC Hgb Hct MCV MCH MCHC RDW Plt Count Lymph % (Auto) [place] % (Auto) Lymph # (Auto) [place] # (Auto) Seg Neutrophils % Seg Neuts % (Manual) Lymphocytes % (Manual) Monocytes % (Manual) Nucleated RBC % Seg Neutrophils # Seg Neutrophils # Man Abs Lymphs (Manual) Lymphocytes # (Manual) PT INR APTT D-Dimer Heparin Anti-Xa Level ABG pH POC ABG pCO2 POC ABG pO2 ABG Oxyhemoglobin ABG Sodium ABG Potassium ABG Glucose Carboxyhemoglobin Sodium Potassium Chloride Carbon Dioxide BUN 69 H 67 H Creatinine 2.2 H 2.3 H Glucose 107 H 121 H POC Glucose 124 H Calcium Phosphorus Ferritin Total Bilirubin AST ALT Alkaline Phosphatase Lactate Dehydrogenase Total Creatine Kinase Troponin T C-Reactive Protein NT-Pro-B Natriuret Pep Serum Total Protein Total Protein Albumin Cholesterol LDL Cholesterol Direct HDL Cholesterol PTH Intact Arterial Blood Glucose Urine WBC (Auto) Urine Creatinine Valproic Acid Heparin-induced Plt Ab Lymph Enumerat CD4/CD8 Absolute CD3 Count Absolute CD4 Count % CD8 Cells Absolute CD8 Count Absolute CD19 Count Coronavirus (PCR) HIV-1 RNA PCR copies/ml HIV-1 RNA (PCR) log 09/27/20 09/27/20 09/27/20 04:00 05:00 17:11 WBC 14.6 H RBC 2.72 L Hgb 8.6 L Hct 25.8 L MCV 95 H MCH MCHC RDW Plt Count Lymph % (Auto) 4.3 L [place] % (Auto) Lymph # (Auto) 0.6 L [place] # (Auto) 0.9 H Seg Neutrophils % 89.6 H Seg Neuts % (Manual) Lymphocytes % (Manual) Monocytes % (Manual) Nucleated RBC % Seg Neutrophils # 13.1 H Seg Neutrophils # Man Abs Lymphs (Manual) Lymphocytes # (Manual) PT INR APTT D-Dimer Heparin Anti-Xa Level ABG pH POC ABG pCO2 POC ABG pO2 ABG Oxyhemoglobin ABG Sodium ABG Potassium ABG Glucose Carboxyhemoglobin Sodium Potassium Chloride Carbon Dioxide BUN Creatinine 2.4 H Glucose POC Glucose 132 H Calcium Phosphorus Ferritin Total Bilirubin AST ALT Alkaline Phosphatase Lactate Dehydrogenase Total Creatine Kinase Troponin T C-Reactive Protein NT-Pro-B Natriuret Pep Serum Total Protein Total Protein Albumin Cholesterol LDL Cholesterol Direct HDL Cholesterol PTH Intact Arterial Blood Glucose Urine WBC (Auto) Urine Creatinine Valproic Acid Heparin-induced Plt Ab Lymph Enumerat CD4/CD8 Absolute CD3 Count Absolute CD4 Count % CD8 Cells Absolute CD8 Count Absolute CD19 Count Coronavirus (PCR) HIV-1 RNA PCR copies/ml HIV-1 RNA (PCR) log 09/28/20 09/28/20 09/29/20 04:46 04:46 04:45 WBC 14.6 H RBC 2.66 L Hgb 8.4 L Hct 25.3 L MCV 95 H MCH MCHC RDW Plt Count Lymph % (Auto) [place] % (Auto) Lymph # (Auto) [place] # (Auto) Seg Neutrophils % Seg Neuts % (Manual) Lymphocytes % (Manual) Monocytes % (Manual) Nucleated RBC % Seg Neutrophils # Seg Neutrophils # Man Abs Lymphs (Manual) Lymphocytes # (Manual) PT INR APTT D-Dimer Heparin Anti-Xa Level ABG pH POC ABG pCO2 POC ABG pO2 ABG Oxyhemoglobin ABG Sodium ABG Potassium ABG Glucose Carboxyhemoglobin Sodium Potassium Chloride Carbon Dioxide BUN 71 H 63 H Creatinine 2.3 H 2.2 H Glucose 105 H POC Glucose Calcium Phosphorus Ferritin Total Bilirubin AST ALT Alkaline Phosphatase Lactate Dehydrogenase Total Creatine Kinase Troponin T C-Reactive Protein NT-Pro-B Natriuret Pep Serum Total Protein Total Protein Albumin Cholesterol LDL Cholesterol Direct HDL Cholesterol PTH Intact Arterial Blood Glucose Urine WBC (Auto) Urine Creatinine Valproic Acid Heparin-induced Plt Ab Lymph Enumerat CD4/CD8 Absolute CD3 Count Absolute CD4 Count % CD8 Cells Absolute CD8 Count Absolute CD19 Count Coronavirus (PCR) HIV-1 RNA PCR copies/ml HIV-1 RNA (PCR) log 09/29/20 09/29/20 09/29/20 04:45 05:43 17:50 WBC RBC 2.92 L Hgb 9.6 L Hct 28.1 L MCV 96 H MCH 33 H MCHC RDW Plt Count Lymph % (Auto) [place] % (Auto) Lymph # (Auto) [place] # (Auto) Seg Neutrophils % Seg Neuts % (Manual) Lymphocytes % (Manual) Monocytes % (Manual) Nucleated RBC % Seg Neutrophils # Seg Neutrophils # Man Abs Lymphs (Manual) Lymphocytes # (Manual) PT INR APTT D-Dimer Heparin Anti-Xa Level ABG pH POC ABG pCO2 POC ABG pO2 ABG Oxyhemoglobin ABG Sodium ABG Potassium ABG Glucose Carboxyhemoglobin Sodium Potassium Chloride Carbon Dioxide BUN Creatinine Glucose POC Glucose 69 L 132 H Calcium Phosphorus Ferritin Total Bilirubin AST ALT Alkaline Phosphatase Lactate Dehydrogenase Total Creatine Kinase Troponin T C-Reactive Protein NT-Pro-B Natriuret Pep Serum Total Protein Total Protein Albumin Cholesterol LDL Cholesterol Direct HDL Cholesterol PTH Intact Arterial Blood Glucose Urine WBC (Auto) Urine Creatinine Valproic Acid Heparin-induced Plt Ab Lymph Enumerat CD4/CD8 Absolute CD3 Count Absolute CD4 Count % CD8 Cells Absolute CD8 Count Absolute CD19 Count Coronavirus (PCR) HIV-1 RNA PCR copies/ml HIV-1 RNA (PCR) log 09/30/20 09/30/20 09/30/20 04:47 04:47 04:47 WBC RBC 2.47 L Hgb 8.1 L Hct 23.9 L MCV 97 H MCH 33 H MCHC RDW Plt Count Lymph % (Auto) [place] % (Auto) Lymph # (Auto) [place] # (Auto) Seg Neutrophils % Seg Neuts % (Manual) Lymphocytes % (Manual) Monocytes % (Manual) Nucleated RBC % Seg Neutrophils # Seg Neutrophils # Man Abs Lymphs (Manual) Lymphocytes # (Manual) PT INR APTT D-Dimer Heparin Anti-Xa Level ABG pH POC ABG pCO2 POC ABG pO2 ABG Oxyhemoglobin ABG Sodium ABG Potassium ABG Glucose Carboxyhemoglobin Sodium Potassium Chloride Carbon Dioxide 31 H BUN 63 H Creatinine 2.1 H Glucose POC Glucose Calcium Phosphorus Ferritin Total Bilirubin AST ALT Alkaline Phosphatase Lactate Dehydrogenase Total Creatine Kinase Troponin T C-Reactive Protein NT-Pro-B Natriuret Pep Serum Total Protein 5.5 L Total Protein 5.9 L Albumin 2.2 L 2.1 L Cholesterol LDL Cholesterol Direct HDL Cholesterol PTH Intact Arterial Blood Glucose Urine WBC (Auto) Urine Creatinine Valproic Acid Heparin-induced Plt Ab Lymph Enumerat CD4/CD8 Absolute CD3 Count Absolute CD4 Count % CD8 Cells Absolute CD8 Count Absolute CD19 Count Coronavirus (PCR) HIV-1 RNA PCR copies/ml HIV-1 RNA (PCR) log 10/01/20 10/01/20 10/02/20 07:16 08:30 05:10 WBC RBC Hgb Hct MCV MCH MCHC RDW Plt Count Lymph % (Auto) [place] % (Auto) Lymph # (Auto) [place] # (Auto) Seg Neutrophils % Seg Neuts % (Manual) Lymphocytes % (Manual) Monocytes % (Manual) Nucleated RBC % Seg Neutrophils # Seg Neutrophils # Man Abs Lymphs (Manual) Lymphocytes # (Manual) PT INR APTT D-Dimer Heparin Anti-Xa Level ABG pH POC ABG pCO2 POC ABG pO2 ABG Oxyhemoglobin ABG Sodium ABG Potassium ABG Glucose Carboxyhemoglobin Sodium Potassium Chloride Carbon Dioxide BUN 58 H 48 H Creatinine 2.2 H 2.0 H Glucose POC Glucose Calcium Phosphorus Ferritin Total Bilirubin AST ALT Alkaline Phosphatase Lactate Dehydrogenase Total Creatine Kinase Troponin T C-Reactive Protein NT-Pro-B Natriuret Pep Serum Total Protein Total Protein Albumin Cholesterol LDL Cholesterol Direct HDL Cholesterol PTH Intact Arterial Blood Glucose Urine WBC (Auto) Urine Creatinine Valproic Acid Heparin-induced Plt Ab Lymph Enumerat CD4/CD8 Absolute CD3 Count Absolute CD4 Count % CD8 Cells Absolute CD8 Count Absolute CD19 Count Coronavirus (PCR) Positive A HIV-1 RNA PCR copies/ml HIV-1 RNA (PCR) log 10/03/20 10/03/20 10/04/20 08:12 08:12 18:19 WBC RBC Hgb Hct MCV MCH MCHC RDW Plt Count Lymph % (Auto) [place] % (Auto) Lymph # (Auto) [place] # (Auto) Seg Neutrophils % Seg Neuts % (Manual) Lymphocytes % (Manual) Monocytes % (Manual) Nucleated RBC % Seg Neutrophils # Seg Neutrophils # Man Abs Lymphs (Manual) Lymphocytes # (Manual) PT INR APTT D-Dimer Heparin Anti-Xa Level ABG pH POC ABG pCO2 POC ABG pO2 ABG Oxyhemoglobin ABG Sodium ABG Potassium ABG Glucose Carboxyhemoglobin Sodium Potassium 5.4 H D Chloride Carbon Dioxide BUN 48 H 39 H Creatinine 2.2 H 2.7 H Glucose POC Glucose Calcium 8.0 L Phosphorus Ferritin Total Bilirubin AST ALT Alkaline Phosphatase Lactate Dehydrogenase Total Creatine Kinase Troponin T C-Reactive Protein NT-Pro-B Natriuret Pep Serum Total Protein Total Protein Albumin Cholesterol LDL Cholesterol Direct HDL Cholesterol PTH Intact Arterial Blood Glucose Urine WBC (Auto) Urine Creatinine Valproic Acid 17.8 L Heparin-induced Plt Ab Lymph Enumerat CD4/CD8 Absolute CD3 Count Absolute CD4 Count % CD8 Cells Absolute CD8 Count Absolute CD19 Count Coronavirus (PCR) HIV-1 RNA PCR copies/ml HIV-1 RNA (PCR) log 10/04/20 10/05/20 10/05/20 18:19 07:14 07:14 WBC RBC 2.44 L 2.36 L Hgb 8.0 L 7.8 L Hct 24.0 L 23.3 L MCV 98 H 99 H MCH 33 H 33 H MCHC RDW 15.6 H 16.0 H Plt Count Lymph % (Auto) [place] % (Auto) Lymph # (Auto) [place] # (Auto) Seg Neutrophils % Seg Neuts % (Manual) Lymphocytes % (Manual) Monocytes % (Manual) Nucleated RBC % Seg Neutrophils # Seg Neutrophils # Man Abs Lymphs (Manual) Lymphocytes # (Manual) PT INR APTT D-Dimer Heparin Anti-Xa Level ABG pH POC ABG pCO2 POC ABG pO2 ABG Oxyhemoglobin ABG Sodium ABG Potassium ABG Glucose Carboxyhemoglobin Sodium Potassium Chloride Carbon Dioxide BUN 36 H Creatinine 2.5 H Glucose POC Glucose Calcium Phosphorus Ferritin Total Bilirubin AST ALT Alkaline Phosphatase Lactate Dehydrogenase Total Creatine Kinase Troponin T C-Reactive Protein NT-Pro-B Natriuret Pep Serum Total Protein Total Protein Albumin Cholesterol LDL Cholesterol Direct HDL Cholesterol PTH Intact Arterial Blood Glucose Urine WBC (Auto) Urine Creatinine Valproic Acid Heparin-induced Plt Ab Lymph Enumerat CD4/CD8 Absolute CD3 Count Absolute CD4 Count % CD8 Cells Absolute CD8 Count Absolute CD19 Count Coronavirus (PCR) HIV-1 RNA PCR copies/ml HIV-1 RNA (PCR) log 10/06/20 10/06/20 10/07/20 08:04 Unknown 06:45 WBC RBC 2.38 L Hgb 7.9 L Hct 23.2 L MCV 98 H MCH 33 H MCHC RDW 15.4 H Plt Count Lymph % (Auto) [place] % (Auto) Lymph # (Auto) [place] # (Auto) Seg Neutrophils % Seg Neuts % (Manual) Lymphocytes % (Manual) Monocytes % (Manual) Nucleated RBC % Seg Neutrophils # Seg Neutrophils # Man Abs Lymphs (Manual) Lymphocytes # (Manual) PT INR APTT D-Dimer Heparin Anti-Xa Level ABG pH POC ABG pCO2 POC ABG pO2 ABG Oxyhemoglobin ABG Sodium ABG Potassium ABG Glucose Carboxyhemoglobin Sodium Potassium 3.5 L Chloride 107.2 H Carbon Dioxide BUN 30 H Creatinine 2.2 H Glucose POC Glucose Calcium Phosphorus Ferritin Total Bilirubin AST ALT Alkaline Phosphatase Lactate Dehydrogenase Total Creatine Kinase Troponin T C-Reactive Protein NT-Pro-B Natriuret Pep Serum Total Protein Total Protein Albumin Cholesterol LDL Cholesterol Direct HDL Cholesterol PTH Intact Arterial Blood Glucose Urine WBC (Auto) Urine Creatinine Valproic Acid Heparin-induced Plt Ab Lymph Enumerat CD4/CD8 Absolute CD3 Count Absolute CD4 Count % CD8 Cells Absolute CD8 Count Absolute CD19 Count Coronavirus (PCR) Positive A HIV-1 RNA PCR copies/ml HIV-1 RNA (PCR) log 10/07/20 10/08/20 10/10/20 06:45 20:19 06:57 WBC RBC Hgb Hct MCV MCH MCHC RDW Plt Count Lymph % (Auto) [place] % (Auto) Lymph # (Auto) [place] # (Auto) Seg Neutrophils % Seg Neuts % (Manual) Lymphocytes % (Manual) Monocytes % (Manual) Nucleated RBC % Seg Neutrophils # Seg Neutrophils # Man Abs Lymphs (Manual) Lymphocytes # (Manual) PT INR APTT D-Dimer Heparin Anti-Xa Level ABG pH POC ABG pCO2 POC ABG pO2 ABG Oxyhemoglobin ABG Sodium ABG Potassium ABG Glucose Carboxyhemoglobin Sodium 135 L Potassium 3.5 L Chloride Carbon Dioxide BUN 28 H 22 H Creatinine 2.2 H 2.0 H 2.0 H Glucose POC Glucose Calcium Phosphorus Ferritin Total Bilirubin AST ALT Alkaline Phosphatase Lactate Dehydrogenase Total Creatine Kinase Troponin T C-Reactive Protein NT-Pro-B Natriuret Pep Serum Total Protein Total Protein Albumin Cholesterol LDL Cholesterol Direct HDL Cholesterol PTH Intact Arterial Blood Glucose Urine WBC (Auto) Urine Creatinine Valproic Acid Heparin-induced Plt Ab Lymph Enumerat CD4/CD8 Absolute CD3 Count Absolute CD4 Count % CD8 Cells Absolute CD8 Count Absolute CD19 Count Coronavirus (PCR) HIV-1 RNA PCR copies/ml HIV-1 RNA (PCR) log 10/11/20 07:29 WBC RBC Hgb Hct MCV MCH MCHC RDW Plt Count Lymph % (Auto) [place] % (Auto) Lymph # (Auto) [place] # (Auto) Seg Neutrophils % Seg Neuts % (Manual) Lymphocytes % (Manual) Monocytes % (Manual) Nucleated RBC % Seg Neutrophils # Seg Neutrophils # Man Abs Lymphs (Manual) Lymphocytes # (Manual) PT INR APTT D-Dimer Heparin Anti-Xa Level ABG pH POC ABG pCO2 POC ABG pO2 ABG Oxyhemoglobin ABG Sodium ABG Potassium ABG Glucose Carboxyhemoglobin Sodium Potassium Chloride Carbon Dioxide BUN Creatinine 2.0 H Glucose POC Glucose Calcium 8.3 L Phosphorus Ferritin Total Bilirubin AST ALT Alkaline Phosphatase Lactate Dehydrogenase Total Creatine Kinase Troponin T C-Reactive Protein NT-Pro-B Natriuret Pep Serum Total Protein Total Protein Albumin Cholesterol LDL Cholesterol Direct HDL Cholesterol PTH Intact Arterial Blood Glucose Urine WBC (Auto) Urine Creatinine Valproic Acid Heparin-induced Plt Ab Lymph Enumerat CD4/CD8 Absolute CD3 Count Absolute CD4 Count % CD8 Cells Absolute CD8 Count Absolute CD19 Count Coronavirus (PCR) HIV-1 RNA PCR copies/ml HIV-1 RNA (PCR) log Allied health notes reviewed: nursing
--- NOTE | 2020-10-11 15:22 | Progress Note ---
Assessment and Plan 1. Acute kidney injury: Vasomotor LOLI in the setting of shock. ATN likely. Renal US negative for hydro. Multiple bladder scan negative. Patient required hemodialysis due to significant decline in the renal function. Hemodialysis: 09/20, 09/21, 09/25. Monitor renal function. Creatinine leveled off. Gentle IV fluids. Renal prognosis is guarded. Avoid nephrotoxic agents. Meds dosage based on GFR. 2. FEN: Hyperkalemia, improved. Metabolic acidosis, improved, monitor. Monitor volume status and lytes. 3. Acute hypoxic respiratory failure: Covid test positive. Supplemental O2 as needed. 4. Acute CHF: Echocardiogram: EF 40-45%. CHF orderset / pathway. Monitor. 5. Atrial fibrillation with RVR: On Amio and Metoprolol. Followed by Cards. 6. Elevated troponin: Followed by Cards. 7. Coagulopathy: Trend. 8. Shock / Hypotension: Multifactorial, monitor. Off pressors. 9. Elevated Transaminases: Improved. 10. Metabolic encephalopathy: Monitor. 11. HIV. 12. Anemia, POA: Monitor. Subjective: Patient was seen and examined at the bedside. Doing ok. Objective: General appearance: well-developed, appears stated age, appears emaciated, not in distress HEENT: ATNC, L pupil dilated Neck: trachea midline Respiratory: bilateral diminished breath sounds Heart: S1S2, irregular, no murmur Abdomen: soft, normoactive bowel sounds, not tender Integumentary: no obvious rash, decreased turgor Ext: no edema Neurologic: alert, conversing, moving extremities Subjective Date of service: 10/11/20 Principal diagnosis: Acute Hypoxemic Resp Failure; COVID-19 infxn; Septic Shock; A-Fib with RVR Objective - Vital Signs Vital signs: Vital Signs - 12hr 10/11/20 10/11/20 10/11/20 04:22 06:19 06:23 Temperature 95.5 F L 99.1 F Pulse Rate 109 H Respiratory 16 18 Rate Blood Pressure 101/75 O2 Sat by Pulse 99 Oximetry 10/11/20 08:54 Temperature Pulse Rate 109 H Respiratory Rate Blood Pressure O2 Sat by Pulse Oximetry - Lab 10/07/20 06:45 10/11/20 07:29 Most recent lab results ABG pH 7.508 (7.320-7.450) H 09/17/20 10:28 ABG O2 Saturation 93.4 (0-100) 09/17/20 10:28 Calcium 8.3 mg/dL (8.4-10.2) L 10/11/20 07:29 Phosphorus 2.90 mg/dL (2.5-4.5) 09/26/20 07:06 Magnesium 1.70 mg/dL (1.7-2.3) 09/26/20 07:06 Urine Creatinine 61.0 mg/dL (0.1-20.0) H 09/18/20 12:00 Urine Sodium 62 mmol/L 09/18/20 12:00 Medications & Allergies - Medications Allergies/Adverse Reactions: Allergies heparin Adverse Reaction (Verified 09/29/20 16:33) thrombocytopenia PF4 Home Medications: Home Medications Medication Instructions Recorded Confirmed Last Taken Type AtorvaSTATin [Lipitor] 20 mg PO QHS 09/18/20 09/18/20 Unknown History Dolutegravir [Tivicay] 50 mg PO DAILY 09/18/20 09/18/20 Unknown History Emtricitabine/Tenofov Alafenam 1 tab PO DAILY 09/18/20 09/18/20 Unknown History [Descovy 200-25 mg (Nf)] allopurinoL [Zyloprim] 300 mg PO QDAY 09/18/20 09/18/20 Unknown History Amiodarone [Cordarone 200 MG TAB] 200 mg PO DAILY #60 tablet 10/01/20 Unknown Rx Apixaban [Eliquis] 2.5 mg PO Q12HR #60 tablet 10/01/20 Unknown Rx Ascorbic Acid [Vitamin C] 500 mg PO BID #60 tablet 10/01/20 Unknown Rx Cholecalciferol Vit D3 [Vitamin D3 1,000 unit PO QDAY #30 tablet 10/01/20 Unknown Rx 1,000 UNIT TAB] Famotidine [Pepcid] 20 mg PO DAILY #30 tablet 10/01/20 Unknown Rx Midodrine [Proamatine] 5 mg PO TID@0800,1200,1600 #90 10/01/20 Unknown Rx tablet QUEtiapine [SEROquel] 25 mg PO BID #30 tablet 10/01/20 Unknown Rx Zinc Sulfate 220 mg PO QDAY #30 capsule 10/01/20 Unknown Rx carvediloL [Coreg] 3.125 mg PO BID #60 tablet 10/01/20 Unknown Rx haloperidoL [Haldol] 2 mg PO Q8H PRN #30 tablet 10/01/20 Unknown Rx Active Medications: Generic Name Dose Route Start Last Admin Trade Name Freq PRN Reason Stop Dose Admin Acetaminophen 650 mg 09/17/20 13:52 09/30/20 21:12 Acetaminophen 325 Mg Tab PO 650 mg Q4H PRN Administration Pain MILD(1-3)/Fever >100.5/ANGEL Albuterol 2.5 mg 09/17/20 13:52 09/17/20 20:47 Albuterol 2.5 Mg/3 Ml Nebu IH 2.5 mg Q4HRT PRN Administration Shortness Of Breath Amiodarone HCl 200 mg 10/01/20 22:00 10/11/20 11:25 Amiodarone 200 Mg Tab PO 200 mg BID EDIE Administration Lipase/Protease/Amylase 1 each 09/20/20 13:10 Lipase 10,500/Protease 25,000/Amylase 43,750 (Units) Dr Patrick FEEDTUBE PRN PRN For Clogged Feeding Tube Apixaban 5 mg 10/05/20 22:00 10/11/20 11:25 Apixaban 5 Mg Tab PO 5 mg Q12HR EDIE Administration Ascorbic Acid 500 mg 09/20/20 22:00 10/11/20 11:24 Ascorbic Acid 500 Mg Tab PO 500 mg BID EDIE Administration Cholecalciferol 1,000 unit 09/21/20 10:00 10/11/20 11:24 Cholecalciferol (Vit D3) 1000 Unit (25 Mcg) Tab PO 1,000 unit QDAY EDIE Administration Docusate Sodium 100 mg 10/05/20 11:00 10/11/20 11:30 Docusate Sodium 100 Mg/10 Ml Oral Liqd PO Not Given BID EDIE Emtricitabine 200 mg 09/30/20 11:00 10/10/20 10:14 Emtricitabine 200 Mg Cap PO 200 mg Q48H EDIE Administration Famotidine 20 mg 09/24/20 10:00 10/11/20 11:26 Famotidine 20 Mg Tab PO 20 mg DAILY EIDE Administration Haloperidol Lactate 5 mg 10/01/20 11:34 10/04/20 13:32 Haloperidol Lactate 5 Mg/1 Ml Inj IM 5 mg Q6H PRN Administration Agitation Heparin Sodium (Porcine) 3,000 unit 09/20/20 10:06 Heparin 10,000 Units/10 Ml Vial IV VIRGIL PRN hemodialysis Sodium Chloride 100 mls @ 999 mls/hr 09/20/20 10:06 Nacl 0.9% IV VIRGIL PRN Hypotension Metoprolol Tartrate 5 mg 09/19/20 19:06 09/24/20 10:59 Metoprolol Tartrate 5 Mg/5 Ml Inj IV 5 mg Q8HR PRN Administration HR > 135 Minute Metoprolol Tartrate 12.5 mg 10/05/20 14:00 10/11/20 08:54 Metoprolol Tartrate 25 Mg Tab PO 12.5 mg TID EDIE Administration Midodrine 10 mg 10/07/20 08:00 10/11/20 11:24 Midodrine 5 Mg Tab PO 10 mg TID@0800,1200,1600 EDIE Administration Ondansetron HCl 4 mg 09/17/20 13:52 Ondansetron 4 Mg/2 Ml Inj IV Q8H PRN Nausea And Vomiting Quetiapine Fumarate 12.5 mg 10/03/20 22:00 10/10/20 22:30 Quetiapine 25 Mg Tab PO 12.5 mg QHS EDIE Administration Quetiapine Fumarate 12.5 mg 10/04/20 10:00 10/11/20 11:29 Quetiapine 25 Mg Tab PO 12.5 mg QAM EDIE Administration Simple Syrup 15 ml 09/20/20 13:10 Simple Syrup 15 Ml FEEDTUBE PRN PRN Hypoglycemia Simple Syrup 30 ml 09/20/20 13:10 Simple Syrup 15 Ml FEEDTUBE PRN PRN Hypoglycemia Sodium Bicarbonate 325 mg 09/20/20 13:10 Sodium Bicarbonate 325 Mg Tab FEEDTUBE PRN PRN For Clogged Feeding Tube Sodium Chloride 10 ml 09/17/20 22:00 10/11/20 11:27 Sodium Chloride 0.9% 10 Ml Flush Syringe IV 10 ml BID EDIE Administration Sodium Chloride 10 ml 09/17/20 13:52 09/24/20 09:15 Sodium Chloride 0.9% 10 Ml Flush Syringe IV 10 ml PRN PRN Administration LINE FLUSH Tamsulosin HCl 0.4 mg 10/07/20 13:00 10/11/20 11:26 Tamsulosin 0.4 Mg Cap PO 0.4 mg QDAY EDIE Administration Tenofovir Disoproxil Fumarate 300 mg 09/30/20 11:00 10/10/20 11:10 Tenofovir 300 Mg Tab PO 300 mg Q48H EDIE Administration Valproic Acid 250 mg 10/03/20 22:00 10/11/20 11:27 Valproic Acid 250 Mg Cap PO 250 mg BID EDIE Administration Zinc Sulfate 220 mg 09/21/20 10:00 10/11/20 11:24 Zinc Sulfate 220 Mg Cap PO 220 mg QDAY EDIE Administration
[2020-10-11] MEDS: SODIUM CHLORIDE 0.9% 1000 ML 1,000 ML IV SCH (17:27)
[2020-10-12 06:41] LABS: Calcium 8.4 mg/dL (8.4-10.2)
[2020-10-12] MEDS: APIXABAN 5 MG TAB PO SCH ×2 (10:15→22:20)
[2020-10-12] MEDS: ASCORBIC ACID 500 MG TAB PO SCH ×2 (10:15→22:19)
[2020-10-12] MEDS: ZINC SULFATE 220 MG CAP PO SCH (10:15)
[2020-10-12] MEDS: MIDODRINE 5 MG TAB PO SCH ×3 (10:16→18:48)
[2020-10-12] MEDS: FAMOTIDINE 20 MG TAB PO SCH (10:16)
[2020-10-12] MEDS: TAMSULOSIN 0.4 MG CAP PO SCH (10:16)
[2020-10-12] MEDS: AMIODARONE 200 MG TAB PO SCH ×2 (10:16→22:21)
[2020-10-12] MEDS: CHOLECALCIFEROL (VIT D3) 1000 UNIT (25 mcg) TAB PO SCH (10:16)
[2020-10-12] MEDS: DOCUSATE SODIUM 100 MG/10 ML ORAL LIQD PO SCH ×2 (10:17→22:21)
[2020-10-12] MEDS: QUEtiapine 25 MG TAB PO SCH ×2 (10:18→22:20)
--- NOTE | 2020-10-12 10:19 | Progress Note ---
Assessment and Plan 1. Acute kidney injury: Vasomotor LOLI in the setting of shock. ATN likely. Renal US negative for hydro. Multiple bladder scan negative. Patient required hemodialysis due to significant decline in the renal function. Hemodialysis: 09/20, 09/21, 09/25. Monitor renal function. Creatinine leveled off. Gentle IV fluids. Avoid nephrotoxic agents. Meds dosage based on GFR. 2. FEN: Hyperkalemia, improved. Metabolic acidosis, improved, monitor. Monitor volume status and lytes. 3. Acute hypoxic respiratory failure: Covid test positive. Supplemental O2 as needed. 4. Acute CHF: Echocardiogram: EF 40-45%. Appears compensated now. Monitor. 5. Atrial fibrillation with RVR: On Amio and Metoprolol. Followed by Cards. 6. Elevated troponin: Followed by Cards. 7. Coagulopathy: Trend. 8. Shock / Hypotension: Multifactorial, monitor. Off pressors. 9. Elevated Transaminases: Improved. 10. Metabolic encephalopathy: Monitor. 11. HIV. 12. Anemia, POA: Monitor. Subjective: Patient was seen and examined at the bedside. Doing ok. Objective: General appearance: well-developed, appears stated age, appears emaciated, not in distress HEENT: ATNC, L pupil dilated Neck: trachea midline Respiratory: bilateral diminished breath sounds Heart: S1S2, irregular, no murmur Abdomen: soft, normoactive bowel sounds, not tender Integumentary: no obvious rash, decreased turgor Ext: no edema Neurologic: alert, conversing, moving extremities Subjective Date of service: 10/12/20 Principal diagnosis: Acute Hypoxemic Resp Failure; COVID-19 infxn; Septic Shock; A-Fib with RVR Objective - Vital Signs Vital signs: Vital Signs - 12hr 10/11/20 10/12/20 10/12/20 23:39 05:18 09:54 Temperature 98.4 F 98.8 F Pulse Rate 103 H 101 H 111 H Respiratory 18 18 Rate Blood Pressure 103/72 102/65 O2 Sat by Pulse 98 94 99 Oximetry - Lab 10/07/20 06:45 10/12/20 05:48 Most recent lab results ABG pH 7.508 (7.320-7.450) H 09/17/20 10:28 ABG O2 Saturation 93.4 (0-100) 09/17/20 10:28 Calcium 8.4 mg/dL (8.4-10.2) 10/12/20 05:48 Phosphorus 2.90 mg/dL (2.5-4.5) 09/26/20 07:06 Magnesium 1.70 mg/dL (1.7-2.3) 09/26/20 07:06 Urine Creatinine 61.0 mg/dL (0.1-20.0) H 09/18/20 12:00 Urine Sodium 62 mmol/L 09/18/20 12:00 Medications & Allergies - Medications Allergies/Adverse Reactions: Allergies heparin Adverse Reaction (Verified 09/29/20 16:33) thrombocytopenia PF4 Home Medications: Home Medications Medication Instructions Recorded Confirmed Last Taken Type AtorvaSTATin [Lipitor] 20 mg PO QHS 09/18/20 09/18/20 Unknown History Dolutegravir [Tivicay] 50 mg PO DAILY 09/18/20 09/18/20 Unknown History Emtricitabine/Tenofov Alafenam 1 tab PO DAILY 09/18/20 09/18/20 Unknown History [Descovy 200-25 mg (Nf)] allopurinoL [Zyloprim] 300 mg PO QDAY 09/18/20 09/18/20 Unknown History Amiodarone [Cordarone 200 MG TAB] 200 mg PO DAILY #60 tablet 10/01/20 Unknown Rx Apixaban [Eliquis] 2.5 mg PO Q12HR #60 tablet 10/01/20 Unknown Rx Ascorbic Acid [Vitamin C] 500 mg PO BID #60 tablet 10/01/20 Unknown Rx Cholecalciferol Vit D3 [Vitamin D3 1,000 unit PO QDAY #30 tablet 10/01/20 Unknown Rx 1,000 UNIT TAB] Famotidine [Pepcid] 20 mg PO DAILY #30 tablet 10/01/20 Unknown Rx Midodrine [Proamatine] 5 mg PO TID@0800,1200,1600 #90 10/01/20 Unknown Rx tablet QUEtiapine [SEROquel] 25 mg PO BID #30 tablet 10/01/20 Unknown Rx Zinc Sulfate 220 mg PO QDAY #30 capsule 10/01/20 Unknown Rx carvediloL [Coreg] 3.125 mg PO BID #60 tablet 10/01/20 Unknown Rx haloperidoL [Haldol] 2 mg PO Q8H PRN #30 tablet 10/01/20 Unknown Rx Active Medications: Generic Name Dose Route Start Last Admin Trade Name Freq PRN Reason Stop Dose Admin Acetaminophen 650 mg 09/17/20 13:52 09/30/20 21:12 Acetaminophen 325 Mg Tab PO 650 mg Q4H PRN Administration Pain MILD(1-3)/Fever >100.5/ANGEL Albuterol 2.5 mg 09/17/20 13:52 09/17/20 20:47 Albuterol 2.5 Mg/3 Ml Nebu IH 2.5 mg Q4HRT PRN Administration Shortness Of Breath Amiodarone HCl 200 mg 10/01/20 22:00 10/11/20 22:23 Amiodarone 200 Mg Tab PO 200 mg BID EDIE Administration Lipase/Protease/Amylase 1 each 09/20/20 13:10 Lipase 10,500/Protease 25,000/Amylase 43,750 (Units) Dr Patrick FEEDTUBE PRN PRN For Clogged Feeding Tube Apixaban 5 mg 10/05/20 22:00 10/11/20 22:23 Apixaban 5 Mg Tab PO 5 mg Q12HR EDIE Administration Ascorbic Acid 500 mg 09/20/20 22:00 10/11/20 22:23 Ascorbic Acid 500 Mg Tab PO 500 mg BID EDIE Administration Cholecalciferol 1,000 unit 09/21/20 10:00 10/11/20 11:24 Cholecalciferol (Vit D3) 1000 Unit (25 Mcg) Tab PO 1,000 unit QDAY EDIE Administration Docusate Sodium 100 mg 10/05/20 11:00 10/11/20 22:22 Docusate Sodium 100 Mg/10 Ml Oral Liqd PO 100 mg BID EDIE Administration Emtricitabine 200 mg 09/30/20 11:00 10/10/20 10:14 Emtricitabine 200 Mg Cap PO 200 mg Q48H EDIE Administration Famotidine 20 mg 09/24/20 10:00 10/11/20 11:26 Famotidine 20 Mg Tab PO 20 mg DAILY EDIE Administration Haloperidol Lactate 5 mg 10/01/20 11:34 10/04/20 13:32 Haloperidol Lactate 5 Mg/1 Ml Inj IM 5 mg Q6H PRN Administration Agitation Sodium Chloride 1,000 mls @ 50 mls/hr 10/11/20 15:45 10/11/20 17:27 Nacl 0.9% 1000 Ml IV 50 mls/hr DIRECT EDIE Administration Metoprolol Tartrate 5 mg 09/19/20 19:06 09/24/20 10:59 Metoprolol Tartrate 5 Mg/5 Ml Inj IV 5 mg Q8HR PRN Administration HR > 135 Minute Metoprolol Tartrate 12.5 mg 10/05/20 14:00 10/11/20 22:24 Metoprolol Tartrate 25 Mg Tab PO Not Given TID EDIE Midodrine 10 mg 10/07/20 08:00 10/11/20 17:29 Midodrine 5 Mg Tab PO 10 mg TID@0800,1200,1600 EDIE Administration Ondansetron HCl 4 mg 09/17/20 13:52 Ondansetron 4 Mg/2 Ml Inj IV Q8H PRN Nausea And Vomiting Quetiapine Fumarate 12.5 mg 10/03/20 22:00 10/11/20 22:23 Quetiapine 25 Mg Tab PO 12.5 mg QHS EDIE Administration Quetiapine Fumarate 12.5 mg 10/04/20 10:00 10/11/20 11:29 Quetiapine 25 Mg Tab PO 12.5 mg QAM EDIE Administration Simple Syrup 15 ml 09/20/20 13:10 Simple Syrup 15 Ml FEEDTUBE PRN PRN Hypoglycemia Simple Syrup 30 ml 09/20/20 13:10 Simple Syrup 15 Ml FEEDTUBE PRN PRN Hypoglycemia Sodium Bicarbonate 325 mg 09/20/20 13:10 Sodium Bicarbonate 325 Mg Tab FEEDTUBE PRN PRN For Clogged Feeding Tube Sodium Chloride 10 ml 09/17/20 22:00 10/11/20 22:24 Sodium Chloride 0.9% 10 Ml Flush Syringe IV 10 ml BID EDIE Administration Sodium Chloride 10 ml 09/17/20 13:52 09/24/20 09:15 Sodium Chloride 0.9% 10 Ml Flush Syringe IV 10 ml PRN PRN Administration LINE FLUSH Tamsulosin HCl 0.4 mg 10/07/20 13:00 10/11/20 11:26 Tamsulosin 0.4 Mg Cap PO 0.4 mg QDAY EDIE Administration Tenofovir Disoproxil Fumarate 300 mg 09/30/20 11:00 10/10/20 11:10 Tenofovir 300 Mg Tab PO 300 mg Q48H EDIE Administration Valproic Acid 250 mg 10/03/20 22:00 10/11/20 22:22 Valproic Acid 250 Mg Cap PO 250 mg BID EDIE Administration Zinc Sulfate 220 mg 09/21/20 10:00 10/11/20 11:24 Zinc Sulfate 220 Mg Cap PO 220 mg QDAY EDIE Administration
--- NOTE | 2020-10-12 11:12 | Progress Note ---
Assessment and Plan 70 YO Male with HIV, HTN, Atrial Fib currently of therapeutic anticoagulation with Xarelto presents to ED for evaluation. Patient reports "I just can't breathe". Patient states that he has experienced shortness of breath over the past 3 days with persistently worsening symptoms over the same timeframe. EMS notified and upon arrival the patient was found to be in distress with a pulse oximetry of 85% on room air. The patient was placed on supplemental oxygen and subsequently transported to [facility] for further care and evaluation of the aforementioned symptoms. The patient was admitted to this hospital 2 days ago, 09/15, for similar complaints and was found to have A. fib with RVR, hyponatremia, hypomagnesemia and acute kidney injury. Shortly after the patient was admitted he left AMA. The patient was seen and evaluated in the emergency department. All lab and imaging studies reviewed. The patient was also found to have a pulse oximetry of 86% on room air which is consistent with acute hypoxemic respiratory failure. The patient was found to have atrial fibrillation with rapid ventricular response, metabolic acidosis, acute kidney injury, as well as symptoms consistent with acute CHF decompensation. The patient was found to be hypotensive with a blood pressure of 78/43 which resulted in a MAP less than 65. Patient admitted to [facility] due to increased risk of cardiopulmonary decompensation. Patient treated with antiarrhythmic therapy in the emergency department, and initiated on CHF protocol. Cardiology and Nep hrology and pulmonary and critical care consulted. Patient sleeping on room air. O2 saturation running 99%. No acute respiratory distress. Patient running low grade temp with no leukocytosis. Patient's coronavirus test was positive. Patient's inflammatory markers: D-dimer: 1772.86, Ferritin: 1,190, Lactic: 1.00, C-reactive protein: 4.20, NT Pro-BNP: 18,204, Troponin < 0.01, CPK: 20, LDH: 276 Medications include apixaban, albuterol, famotidine. Chest x-ray done on 09/20/20 showed no acute pulmonary or pleural findings. No pneumothorax. - Patient Problems (1) Acute hypoxemic respiratory failure Current Visit: Yes Status: Acute Plan to address problem: Patient resting on room air. O2 saturation running 99%. No acute respiratory distress at rest. Albuterol inhaler (2) CHF (congestive heart failure) Current Visit: Yes Status: Acute Qualifiers: Heart failure type: systolic Heart failure chronicity: acute Qualified Code(s): I50.21 - Acute systolic (congestive) heart failure Plan to address problem: Management as per cardiology (3) LOLI (acute kidney injury) Current Visit: Yes Status: Acute Plan to address problem: Management as per nephrology. (4) AMS (altered mental status) Current Visit: Yes Status: Acute Qualifiers: Altered mental status type: somnolence Qualified Code(s): R40.0 - Somnolence Plan to address problem: Management as per primary team. (5) Atrial fibrillation with RVR Current Visit: Yes Status: Acute Plan to address problem: Management as cardiology. Patient is on Apixaban (6) Coronavirus infection Current Visit: Yes Status: Acute Plan to address problem: Patients [place] virus PCR is positive. Management as per ID. (7) HIV (human immunodeficiency virus infection) Current Visit: Yes Status: Chronic Plan to address problem: Management as per ID. Subjective Date of service: 10/12/20 Principal diagnosis: Acute Hypoxemic Resp Failure; COVID-19 infxn; Septic Shock; A-Fib with RVR Interval history: 70 YO Male with HIV, HTN, Atrial Fib currently of therapeutic anticoagulation with Xarelto presents to ED for evaluation. Patient reports "I just can't breathe". Patient states that he has experienced shortness of breath over the past 3 days with persistently worsening symptoms over the same timeframe. EMS notified and upon arrival the patient was found to be in distress with a pulse oximetry of 85% on room air. The patient was placed on supplemental oxygen and subsequently transported to [facility] for further care and evaluation of the aforementioned symptoms. The patient was admitted to this hospital 2 days ago, 09/15, for similar complaints and was found to have A. fib with RVR, hyponatremia, hypomagnesemia and acute kidney injury. Shortly after the patient was admitted he left A. The patient was seen and evaluated in the emergency department. All lab and imaging studies reviewed. The patient was also found to have a pulse oximetry of 86% on room air which is consistent with acute hypoxemic respiratory failure. The patient was found to have atrial fibrillation with rapid ventricular response, metabolic acidosis, acute kidney injury, as well as symptoms consistent with acute CHF decompensation. The patient was found to be hypotensive with a blood pressure of 78/43 which resulted in a MAP less than 65. Patient admitted to [facility] due to increased risk of cardiopulmonary decompensation. Patient treated with antiarrhythmic therapy in the emergency department, and initiated on CHF protocol. Cardiology and Nephrology and pulmonary and critical care consulted. Patient sleeping on room air. O2 saturation running 99%. No acute respiratory distress. Patient running low grade temp with no leukocytosis. Patient's coronavirus test was positive. Patient's inflammatory markers: D-dimer: 1772.86, Ferritin: 1,190, Lactic: 1.00, C-reactive protein: 4.20, NT Pro-BNP: 18,204, Troponin < 0.01, CPK: 20, LDH: 276 Medications include apixaban, albuterol, famotidine. Chest x-ray done on 09/20/20 showed no acute pulmonary or pleural findings. No pneumothorax. Objective Vital Signs - 12hr 10/11/20 10/12/20 10/12/20 23:39 05:18 09:54 Temperature 98.4 F 98.8 F Pulse Rate 103 H 101 H 111 H Respiratory 18 18 Rate Blood Pressure 103/72 102/65 O2 Sat by Pulse 98 94 99 Oximetry Constitutional: no acute distress, alert, other (elderly male without increased respiratory effort at rest) Eyes: non-icteric ENT: oropharynx moist Neck: supple, no lymphadenopathy, no JVD Effort: normal Ascultation: Bilateral: rhonchi, other (right SCVL Trialysis catheter) Percussion: Bilateral: not dull Cardiovascular: irregular rhythm Gastrointestinal: normoactive bowel sounds, soft, non-tender, non-distended Integumentary: normal Extremities: no cyanosis, no edema, pulses normal, no ischemia or petechiae Neurologic: non-focal exam (grossly), pupils equal and round, CN II-XII normal, motor strength normal and Psychiatric: mood appropriate, affect normal CBC and BMP: 10/12/20 13:42 10/12/20 05:48 ABG, PT/INR, D-dimer: ABG ABG pH 7.508 (7.320-7.450) H 09/17/20 10:28 POC ABG pCO2 22.8 mmHg (32.0-48.0) L 09/17/20 10:28 POC ABG pO2 66.8 mmHg (83-108) L 09/17/20 10:28 POC ABG HCO3 17.7 09/17/20 10:28 ABG O2 Saturation 93.4 (0-100) 09/17/20 10:28 PT/INR, D-dimer PT 15.7 Sec. (12.2-14.9) H 09/24/20 12:13 INR 1.27 (0.87-1.13) H 09/24/20 12:13 D-Dimer 1772.86 ng/mlDDU (0-234) H 09/24/20 05:00 Abnormal lab findings: Abnormal Labs 09/17/20 09/17/20 09/17/20 10:28 10:47 10:47 WBC 11.1 H RBC 3.44 L Hgb 11.2 L Hct 32.8 L MCV 95 H MCH MCHC RDW Plt Count Lymph % (Auto) [place] % (Auto) Lymph # (Auto) [place] # (Auto) Seg Neutrophils % Seg Neuts % (Manual) Lymphocytes % (Manual) 4.0 L Monocytes % (Manual) Nucleated RBC % Seg Neutrophils # Seg Neutrophils # Man 10.7 H Abs Lymphs (Manual) Lymphocytes # (Manual) 0.4 L PT 32.9 H INR 3.16 H APTT 51.1 H D-Dimer Heparin Anti-Xa Level ABG pH 7.508 H POC ABG pCO2 22.8 L POC ABG pO2 66.8 L ABG Oxyhemoglobin 92.7 L ABG Sodium 127.4 L ABG Potassium 4.7 H ABG Glucose 121 H Carboxyhemoglobin 0.4 L Sodium Potassium Chloride Carbon Dioxide BUN Creatinine Glucose POC Glucose Calcium Phosphorus Ferritin Total Bilirubin AST ALT Alkaline Phosphatase Lactate Dehydrogenase Total Creatine Kinase Troponin T C-Reactive Protein NT-Pro-B Natriuret Pep Serum Total Protein Total Protein Albumin Cholesterol LDL Cholesterol Direct HDL Cholesterol PTH Intact Arterial Blood Glucose 121 H Urine WBC (Auto) Urine Creatinine Valproic Acid Heparin-induced Plt Ab Lymph Enumerat CD4/CD8 Absolute CD3 Count Absolute CD4 Count % CD8 Cells Absolute CD8 Count Absolute CD19 Count Coronavirus (PCR) HIV-1 RNA PCR copies/ml HIV-1 RNA (PCR) log 09/17/20 09/17/20 09/17/20 10:47 10:47 13:54 WBC RBC Hgb Hct MCV MCH MCHC RDW Plt Count Lymph % (Auto) [place] % (Auto) Lymph # (Auto) [place] # (Auto) Seg Neutrophils % Seg Neuts % (Manual) Lymphocytes % (Manual) Monocytes % (Manual) Nucleated RBC % Seg Neutrophils # Seg Neutrophils # Man Abs Lymphs (Manual) Lymphocytes # (Manual) PT INR APTT D-Dimer Heparin Anti-Xa Level ABG pH POC ABG pCO2 POC ABG pO2 ABG Oxyhemoglobin ABG Sodium ABG Potassium ABG Glucose Carboxyhemoglobin Sodium 125 L Potassium Chloride 95.3 L Carbon Dioxide 17 L BUN 64 H Creatinine 4.6 H D Glucose 104 H POC Glucose Calcium Phosphorus Ferritin Total Bilirubin AST 69 H ALT Alkaline Phosphatase Lactate Dehydrogenase Total Creatine Kinase Troponin T 0.061 H D 0.058 H C-Reactive Protein NT-Pro-B Natriuret Pep 74710 H Serum Total Protein Total Protein Albumin 1.9 L Cholesterol 48 L LDL Cholesterol Direct 4 L HDL Cholesterol 9 L PTH Intact Arterial Blood Glucose Urine WBC (Auto) Urine Creatinine Valproic Acid Heparin-induced Plt Ab Lymph Enumerat CD4/CD8 Absolute CD3 Count Absolute CD4 Count % CD8 Cells Absolute CD8 Count Absolute CD19 Count Coronavirus (PCR) HIV-1 RNA PCR copies/ml HIV-1 RNA (PCR) log 09/17/20 09/17/20 09/17/20 16:36 17:35 17:35 WBC RBC 3.25 L Hgb 10.7 L Hct 31.1 L MCV 96 H MCH 33 H MCHC RDW Plt Count Lymph % (Auto) [place] % (Auto) Lymph # (Auto) [place] # (Auto) Seg Neutrophils % Seg Neuts % (Manual) Lymphocytes % (Manual) Monocytes % (Manual) Nucleated RBC % Seg Neutrophils # Seg Neutrophils # Man Abs Lymphs (Manual) Lymphocytes # (Manual) PT 31.9 H INR 3.04 H APTT 50.9 H D-Dimer Heparin Anti-Xa Level ABG pH POC ABG pCO2 POC ABG pO2 ABG Oxyhemoglobin ABG Sodium ABG Potassium ABG Glucose Carboxyhemoglobin Sodium Potassium Chloride Carbon Dioxide BUN Creatinine Glucose POC Glucose Calcium Phosphorus Ferritin Total Bilirubin AST ALT Alkaline Phosphatase Lactate Dehydrogenase Total Creatine Kinase Troponin T 0.057 H C-Reactive Protein NT-Pro-B Natriuret Pep Serum Total Protein Total Protein Albumin Cholesterol LDL Cholesterol Direct HDL Cholesterol PTH Intact Arterial Blood Glucose Urine WBC (Auto) Urine Creatinine Valproic Acid Heparin-induced Plt Ab Lymph Enumerat CD4/CD8 Absolute CD3 Count Absolute CD4 Count % CD8 Cells Absolute CD8 Count Absolute CD19 Count Coronavirus (PCR) HIV-1 RNA PCR copies/ml HIV-1 RNA (PCR) log 09/17/20 09/18/20 09/18/20 17:35 03:19 03:19 WBC RBC 3.32 L Hgb 10.9 L Hct 32.0 L MCV 96 H MCH 33 H MCHC RDW Plt Count 138 L Lymph % (Auto) [place] % (Auto) Lymph # (Auto) [place] # (Auto) Seg Neutrophils % Seg Neuts % (Manual) 95.0 H Lymphocytes % (Manual) 3.0 L Monocytes % (Manual) Nucleated RBC % Seg Neutrophils # Seg Neutrophils # Man 8.1 H Abs Lymphs (Manual) Lymphocytes # (Manual) 0.3 L PT INR APTT D-Dimer Heparin Anti-Xa Level ABG pH POC ABG pCO2 POC ABG pO2 ABG Oxyhemoglobin ABG Sodium ABG Potassium ABG Glucose Carboxyhemoglobin Sodium Potassium Chloride Carbon Dioxide 16 L BUN 70 H Creatinine 4.6 H 4.7 H Glucose 104 H POC Glucose Calcium 8.2 L Phosphorus Ferritin Total Bilirubin 1.60 H AST 128 H ALT 67 H Alkaline Phosphatase Lactate Dehydrogenase Total Creatine Kinase Troponin T C-Reactive Protein NT-Pro-B Natriuret Pep Serum Total Protein Total Protein 5.2 L D Albumin 2.5 L Cholesterol LDL Cholesterol Direct HDL Cholesterol PTH Intact Arterial Blood Glucose Urine WBC (Auto) Urine Creatinine Valproic Acid Heparin-induced Plt Ab Lymph Enumerat CD4/CD8 Absolute CD3 Count Absolute CD4 Count % CD8 Cells Absolute CD8 Count Absolute CD19 Count Coronavirus (PCR) HIV-1 RNA PCR copies/ml HIV-1 RNA (PCR) log 09/18/20 09/18/20 09/18/20 09:39 12:00 12:00 WBC RBC Hgb Hct MCV MCH MCHC RDW Plt Count Lymph % (Auto) [place] % (Auto) Lymph # (Auto) [place] # (Auto) Seg Neutrophils % Seg Neuts % (Manual) Lymphocytes % (Manual) Monocytes % (Manual) Nucleated RBC % Seg Neutrophils # Seg Neutrophils # Man Abs Lymphs (Manual) Lymphocytes # (Manual) PT INR APTT D-Dimer Heparin Anti-Xa Level ABG pH POC ABG pCO2 POC ABG pO2 ABG Oxyhemoglobin ABG Sodium ABG Potassium ABG Glucose Carboxyhemoglobin Sodium Potassium Chloride Carbon Dioxide BUN Creatinine Glucose POC Glucose Calcium Phosphorus Ferritin Total Bilirubin AST ALT Alkaline Phosphatase Lactate Dehydrogenase Total Creatine Kinase Troponin T C-Reactive Protein NT-Pro-B Natriuret Pep Serum Total Protein Total Protein Albumin Cholesterol LDL Cholesterol Direct HDL Cholesterol PTH Intact Arterial Blood Glucose Urine WBC (Auto) 71.0 H Urine Creatinine 61.0 H Valproic Acid Heparin-induced Plt Ab Lymph Enumerat CD4/CD8 Absolute CD3 Count Absolute CD4 Count % CD8 Cells Absolute CD8 Count Absolute CD19 Count Coronavirus (PCR) Positive A HIV-1 RNA PCR copies/ml HIV-1 RNA (PCR) log 09/18/20 09/18/20 09/18/20 15:07 15:07 18:33 WBC RBC Hgb 10.7 L Hct 31.3 L MCV MCH MCHC RDW Plt Count Lymph % (Auto) [place] % (Auto) Lymph # (Auto) [place] # (Auto) Seg Neutrophils % Seg Neuts % (Manual) Lymphocytes % (Manual) Monocytes % (Manual) Nucleated RBC % Seg Neutrophils # Seg Neutrophils # Man Abs Lymphs (Manual) Lymphocytes # (Manual) PT 20.3 H INR 1.73 H APTT 40.8 H D-Dimer Heparin Anti-Xa Level 1.09 H ABG pH POC ABG pCO2 POC ABG pO2 ABG Oxyhemoglobin ABG Sodium ABG Potassium ABG Glucose Carboxyhemoglobin Sodium Potassium Chloride Carbon Dioxide BUN Creatinine Glucose POC Glucose Calcium Phosphorus Ferritin Total Bilirubin AST ALT Alkaline Phosphatase Lactate Dehydrogenase Total Creatine Kinase Troponin T C-Reactive Protein NT-Pro-B Natriuret Pep Serum Total Protein Total Protein Albumin Cholesterol LDL Cholesterol Direct HDL Cholesterol PTH Intact Arterial Blood Glucose Urine WBC (Auto) Urine Creatinine Valproic Acid Heparin-induced Plt Ab Lymph Enumerat CD4/CD8 Absolute CD3 Count Absolute CD4 Count % CD8 Cells Absolute CD8 Count Absolute CD19 Count Coronavirus (PCR) HIV-1 RNA PCR copies/ml HIV-1 RNA (PCR) log 09/19/20 09/19/20 09/19/20 03:30 03:30 03:30 WBC RBC 3.29 L Hgb 10.9 L Hct 30.9 L MCV MCH 33 H MCHC 35 H RDW Plt Count Lymph % (Auto) [place] % (Auto) Lymph # (Auto) [place] # (Auto) Seg Neutrophils % Seg Neuts % (Manual) Lymphocytes % (Manual) Monocytes % (Manual) Nucleated RBC % Seg Neutrophils # Seg Neutrophils # Man Abs Lymphs (Manual) Lymphocytes # (Manual) PT INR APTT D-Dimer Heparin Anti-Xa Level ABG pH POC ABG pCO2 POC ABG pO2 ABG Oxyhemoglobin ABG Sodium ABG Potassium ABG Glucose Carboxyhemoglobin Sodium 133 L Potassium Chloride Carbon Dioxide 17 L BUN 94 H Creatinine 5.0 H Glucose 120 H POC Glucose Calcium Phosphorus 6.30 H Ferritin Total Bilirubin 2.40 H AST 163 H ALT 109 H Alkaline Phosphatase 160 H Lactate Dehydrogenase Total Creatine Kinase 20 L Troponin T C-Reactive Protein NT-Pro-B Natriuret Pep Serum Total Protein Total Protein 6.2 L Albumin 2.0 L Cholesterol LDL Cholesterol Direct HDL Cholesterol PTH Intact 161.4 H Arterial Blood Glucose Urine WBC (Auto) Urine Creatinine Valproic Acid Heparin-induced Plt Ab Lymph Enumerat CD4/CD8 Absolute CD3 Count Absolute CD4 Count % CD8 Cells Absolute CD8 Count Absolute CD19 Count Coronavirus (PCR) HIV-1 RNA PCR copies/ml HIV-1 RNA (PCR) log 09/19/20 09/19/20 09/19/20 06:35 13:35 13:35 WBC RBC Hgb Hct MCV MCH MCHC RDW Plt Count Lymph % (Auto) [place] % (Auto) Lymph # (Auto) [place] # (Auto) Seg Neutrophils % Seg Neuts % (Manual) Lymphocytes % (Manual) Monocytes % (Manual) Nucleated RBC % Seg Neutrophils # Seg Neutrophils # Man Abs Lymphs (Manual) 223 L Lymphocytes # (Manual) PT INR APTT D-Dimer Heparin Anti-Xa Level ABG pH POC ABG pCO2 POC ABG pO2 ABG Oxyhemoglobin ABG Sodium ABG Potassium ABG Glucose Carboxyhemoglobin Sodium Potassium Chloride Carbon Dioxide BUN Creatinine Glucose POC Glucose 123 H Calcium Phosphorus Ferritin Total Bilirubin AST ALT Alkaline Phosphatase Lactate Dehydrogenase Total Creatine Kinase Troponin T C-Reactive Protein NT-Pro-B Natriuret Pep Serum Total Protein Total Protein Albumin Cholesterol LDL Cholesterol Direct HDL Cholesterol PTH Intact Arterial Blood Glucose Urine WBC (Auto) Urine Creatinine Valproic Acid Heparin-induced Plt Ab Lymph Enumerat CD4/CD8 0.70 L Absolute CD3 Count 175 L Absolute CD4 Count 70 L % CD8 Cells 45 H Absolute CD8 Count 101 L Absolute CD19 Count 26 L Coronavirus (PCR) HIV-1 RNA PCR copies/ml 67 H HIV-1 RNA (PCR) log 1.83 H 09/19/20 09/20/20 09/20/20 23:37 04:00 04:00 WBC RBC 3.43 L Hgb 11.1 L Hct 32.2 L MCV MCH MCHC RDW Plt Count 131 L Lymph % (Auto) [place] % (Auto) Lymph # (Auto) [place] # (Auto) Seg Neutrophils % Seg Neuts % (Manual) 88.0 H Lymphocytes % (Manual) 3.0 L Monocytes % (Manual) 9.0 H Nucleated RBC % Seg Neutrophils # Seg Neutrophils # Man 8.2 H Abs Lymphs (Manual) Lymphocytes # (Manual) 0.3 L PT INR APTT D-Dimer Heparin Anti-Xa Level 0.10 L ABG pH POC ABG pCO2 POC ABG pO2 ABG Oxyhemoglobin ABG Sodium ABG Potassium ABG Glucose Carboxyhemoglobin Sodium Potassium Chloride Carbon Dioxide BUN Creatinine Glucose POC Glucose 135 H Calcium Phosphorus Ferritin Total Bilirubin AST ALT Alkaline Phosphatase Lactate Dehydrogenase Total Creatine Kinase Troponin T C-Reactive Protein NT-Pro-B Natriuret Pep Serum Total Protein Total Protein Albumin Cholesterol LDL Cholesterol Direct HDL Cholesterol PTH Intact Arterial Blood Glucose Urine WBC (Auto) Urine Creatinine Valproic Acid Heparin-induced Plt Ab Lymph Enumerat CD4/CD8 Absolute CD3 Count Absolute CD4 Count % CD8 Cells Absolute CD8 Count Absolute CD19 Count Coronavirus (PCR) HIV-1 RNA PCR copies/ml HIV-1 RNA (PCR) log 09/20/20 09/20/20 09/20/20 04:00 05:37 11:20 WBC RBC Hgb Hct MCV MCH MCHC RDW Plt Count Lymph % (Auto) [place] % (Auto) Lymph # (Auto) [place] # (Auto) Seg Neutrophils % Seg Neuts % (Manual) Lymphocytes % (Manual) Monocytes % (Manual) Nucleated RBC % Seg Neutrophils # Seg Neutrophils # Man Abs Lymphs (Manual) Lymphocytes # (Manual) PT INR APTT D-Dimer Heparin Anti-Xa Level ABG pH POC ABG pCO2 POC ABG pO2 ABG Oxyhemoglobin ABG Sodium ABG Potassium ABG Glucose Carboxyhemoglobin Sodium Potassium Chloride Carbon Dioxide 16 L BUN 119 H Creatinine 6.2 H Glucose 136 H POC Glucose 137 H 108 H Calcium Phosphorus Ferritin Total Bilirubin AST ALT Alkaline Phosphatase Lactate Dehydrogenase Total Creatine Kinase Troponin T C-Reactive Protein NT-Pro-B Natriuret Pep Serum Total Protein Total Protein Albumin Cholesterol LDL Cholesterol Direct HDL Cholesterol PTH Intact Arterial Blood Glucose Urine WBC (Auto) Urine Creatinine Valproic Acid Heparin-induced Plt Ab Lymph Enumerat CD4/CD8 Absolute CD3 Count Absolute CD4 Count % CD8 Cells Absolute CD8 Count Absolute CD19 Count Coronavirus (PCR) HIV-1 RNA PCR copies/ml HIV-1 RNA (PCR) log 09/20/20 09/20/20 09/20/20 17:10 17:10 17:10 WBC RBC Hgb Hct MCV MCH MCHC RDW Plt Count Lymph % (Auto) [place] % (Auto) Lymph # (Auto) [place] # (Auto) Seg Neutrophils % Seg Neuts % (Manual) Lymphocytes % (Manual) Monocytes % (Manual) Nucleated RBC % Seg Neutrophils # Seg Neutrophils # Man Abs Lymphs (Manual) Lymphocytes # (Manual) PT INR APTT D-Dimer 4271.58 H Heparin Anti-Xa Level ABG pH POC ABG pCO2 POC ABG pO2 ABG Oxyhemoglobin ABG Sodium ABG Potassium ABG Glucose Carboxyhemoglobin Sodium Potassium Chloride Carbon Dioxide BUN Creatinine 6.0 H Glucose POC Glucose Calcium Phosphorus Ferritin 696.6 H Total Bilirubin AST ALT Alkaline Phosphatase Lactate Dehydrogenase Total Creatine Kinase Troponin T C-Reactive Protein NT-Pro-B Natriuret Pep Serum Total Protein Total Protein Albumin Cholesterol LDL Cholesterol Direct HDL Cholesterol PTH Intact Arterial Blood Glucose Urine WBC (Auto) Urine Creatinine Valproic Acid Heparin-induced Plt Ab Lymph Enumerat CD4/CD8 Absolute CD3 Count Absolute CD4 Count % CD8 Cells Absolute CD8 Count Absolute CD19 Count Coronavirus (PCR) HIV-1 RNA PCR copies/ml HIV-1 RNA (PCR) log 09/20/20 09/20/20 09/20/20 17:10 18:21 23:14 WBC RBC Hgb Hct MCV MCH MCHC RDW Plt Count Lymph % (Auto) [place] % (Auto) Lymph # (Auto) [place] # (Auto) Seg Neutrophils % Seg Neuts % (Manual) Lymphocytes % (Manual) Monocytes % (Manual) Nucleated RBC % Seg Neutrophils # Seg Neutrophils # Man Abs Lymphs (Manual) Lymphocytes # (Manual) PT INR APTT D-Dimer Heparin Anti-Xa Level ABG pH POC ABG pCO2 POC ABG pO2 ABG Oxyhemoglobin ABG Sodium ABG Potassium ABG Glucose Carboxyhemoglobin Sodium Potassium Chloride Carbon Dioxide BUN Creatinine Glucose POC Glucose 129 H 170 H Calcium Phosphorus Ferritin Total Bilirubin AST ALT Alkaline Phosphatase Lactate Dehydrogenase 209 H Total Creatine Kinase Troponin T C-Reactive Protein 10.60 H NT-Pro-B Natriuret Pep Serum Total Protein Total Protein Albumin Cholesterol LDL Cholesterol Direct HDL Cholesterol PTH Intact Arterial Blood Glucose Urine WBC (Auto) Urine Creatinine Valproic Acid Heparin-induced Plt Ab Lymph Enumerat CD4/CD8 Absolute CD3 Count Absolute CD4 Count % CD8 Cells Absolute CD8 Count Absolute CD19 Count Coronavirus (PCR) HIV-1 RNA PCR copies/ml HIV-1 RNA (PCR) log 09/21/20 09/21/20 09/21/20 05:35 17:09 23:18 WBC RBC Hgb Hct MCV MCH MCHC RDW Plt Count Lymph % (Auto) [place] % (Auto) Lymph # (Auto) [place] # (Auto) Seg Neutrophils % Seg Neuts % (Manual) Lymphocytes % (Manual) Monocytes % (Manual) Nucleated RBC % Seg Neutrophils # Seg Neutrophils # Man Abs Lymphs (Manual) Lymphocytes # (Manual) PT INR APTT D-Dimer Heparin Anti-Xa Level ABG pH POC ABG pCO2 POC ABG pO2 ABG Oxyhemoglobin ABG Sodium ABG Potassium ABG Glucose Carboxyhemoglobin Sodium Potassium Chloride Carbon Dioxide BUN Creatinine Glucose POC Glucose 170 H 140 H 139 H Calcium Phosphorus Ferritin Total Bilirubin AST ALT Alkaline Phosphatase Lactate Dehydrogenase Total Creatine Kinase Troponin T C-Reactive Protein NT-Pro-B Natriuret Pep Serum Total Protein Total Protein Albumin Cholesterol LDL Cholesterol Direct HDL Cholesterol PTH Intact Arterial Blood Glucose Urine WBC (Auto) Urine Creatinine Valproic Acid Heparin-induced Plt Ab Lymph Enumerat CD4/CD8 Absolute CD3 Count Absolute CD4 Count % CD8 Cells Absolute CD8 Count Absolute CD19 Count Coronavirus (PCR) HIV-1 RNA PCR copies/ml HIV-1 RNA (PCR) log 09/21/20 09/21/20 09/21/20 Unknown Unknown Unknown WBC RBC 3.56 L Hgb 11.3 L Hct 33.2 L MCV MCH MCHC RDW Plt Count 125 L Lymph % (Auto) [place] % (Auto) Lymph # (Auto) [place] # (Auto) Seg Neutrophils % Seg Neuts % (Manual) 90.0 H Lymphocytes % (Manual) 8.0 L Monocytes % (Manual) Nucleated RBC % 1.0 H Seg Neutrophils # Seg Neutrophils # Man 9.4 H Abs Lymphs (Manual) Lymphocytes # (Manual) 0.8 L PT 16.8 H INR 1.36 H APTT D-Dimer Heparin Anti-Xa Level ABG pH POC ABG pCO2 POC ABG pO2 ABG Oxyhemoglobin ABG Sodium ABG Potassium ABG Glucose Carboxyhemoglobin Sodium Potassium Chloride Carbon Dioxide BUN 83 H Creatinine 4.3 H Glucose 163 H POC Glucose Calcium Phosphorus Ferritin Total Bilirubin 2.40 H AST ALT 57 H Alkaline Phosphatase < 5 L Lactate Dehydrogenase Total Creatine Kinase Troponin T C-Reactive Protein NT-Pro-B Natriuret Pep Serum Total Protein Total Protein Albumin 1.9 L Cholesterol LDL Cholesterol Direct HDL Cholesterol PTH Intact Arterial Blood Glucose Urine WBC (Auto) Urine Creatinine Valproic Acid Heparin-induced Plt Ab Lymph Enumerat CD4/CD8 Absolute CD3 Count Absolute CD4 Count % CD8 Cells Absolute CD8 Count Absolute CD19 Count Coronavirus (PCR) HIV-1 RNA PCR copies/ml HIV-1 RNA (PCR) log 09/22/20 09/22/20 09/22/20 05:38 05:38 05:38 WBC 15.8 H RBC 3.36 L Hgb 10.8 L Hct 31.0 L MCV MCH MCHC 35 H RDW Plt Count 68 L Lymph % (Auto) 3.1 L [place] % (Auto) 10.7 H Lymph # (Auto) 0.5 L [place] # (Auto) 1.7 H Seg Neutrophils % 85.9 H Seg Neuts % (Manual) Lymphocytes % (Manual) Monocytes % (Manual) Nucleated RBC % Seg Neutrophils # 13.6 H Seg Neutrophils # Man Abs Lymphs (Manual) Lymphocytes # (Manual) PT INR APTT D-Dimer 3281.49 H Heparin Anti-Xa Level ABG pH POC ABG pCO2 POC ABG pO2 ABG Oxyhemoglobin ABG Sodium ABG Potassium ABG Glucose Carboxyhemoglobin Sodium Potassium Chloride Carbon Dioxide BUN 61 H Creatinine 3.1 H Glucose 129 H POC Glucose Calcium Phosphorus Ferritin Total Bilirubin AST ALT Alkaline Phosphatase Lactate Dehydrogenase 277 H Total Creatine Kinase Troponin T C-Reactive Protein 6.60 H NT-Pro-B Natriuret Pep Serum Total Protein Total Protein Albumin Cholesterol LDL Cholesterol Direct HDL Cholesterol PTH Intact Arterial Blood Glucose Urine WBC (Auto) Urine Creatinine Valproic Acid Heparin-induced Plt Ab Lymph Enumerat CD4/CD8 Absolute CD3 Count Absolute CD4 Count % CD8 Cells Absolute CD8 Count Absolute CD19 Count Coronavirus (PCR) HIV-1 RNA PCR copies/ml HIV-1 RNA (PCR) log 09/22/20 09/22/20 09/22/20 05:38 05:44 11:26 WBC RBC Hgb Hct MCV MCH MCHC RDW Plt Count Lymph % (Auto) [place] % (Auto) Lymph # (Auto) [place] # (Auto) Seg Neutrophils % Seg Neuts % (Manual) Lymphocytes % (Manual) Monocytes % (Manual) Nucleated RBC % Seg Neutrophils # Seg Neutrophils # Man Abs Lymphs (Manual) Lymphocytes # (Manual) PT INR APTT D-Dimer Heparin Anti-Xa Level ABG pH POC ABG pCO2 POC ABG pO2 ABG Oxyhemoglobin ABG Sodium ABG Potassium ABG Glucose Carboxyhemoglobin Sodium Potassium Chloride Carbon Dioxide BUN Creatinine Glucose POC Glucose 112 H 131 H Calcium Phosphorus Ferritin 927.8 H Total Bilirubin AST ALT Alkaline Phosphatase Lactate Dehydrogenase Total Creatine Kinase Troponin T C-Reactive Protein NT-Pro-B Natriuret Pep Serum Total Protein Total Protein Albumin Cholesterol LDL Cholesterol Direct HDL Cholesterol PTH Intact Arterial Blood Glucose Urine WBC (Auto) Urine Creatinine Valproic Acid Heparin-induced Plt Ab Lymph Enumerat CD4/CD8 Absolute CD3 Count Absolute CD4 Count % CD8 Cells Absolute CD8 Count Absolute CD19 Count Coronavirus (PCR) HIV-1 RNA PCR copies/ml HIV-1 RNA (PCR) log 09/22/20 09/22/20 09/22/20 15:12 15:12 15:12 WBC RBC Hgb Hct MCV MCH MCHC RDW Plt Count Lymph % (Auto) [place] % (Auto) Lymph # (Auto) [place] # (Auto) Seg Neutrophils % Seg Neuts % (Manual) Lymphocytes % (Manual) Monocytes % (Manual) Nucleated RBC % Seg Neutrophils # Seg Neutrophils # Man Abs Lymphs (Manual) Lymphocytes # (Manual) PT 17.3 H INR 1.42 H APTT D-Dimer Heparin Anti-Xa Level ABG pH POC ABG pCO2 POC ABG pO2 ABG Oxyhemoglobin ABG Sodium ABG Potassium ABG Glucose Carboxyhemoglobin Sodium Potassium Chloride Carbon Dioxide BUN Creatinine 3.0 H Glucose POC Glucose Calcium Phosphorus Ferritin Total Bilirubin AST ALT Alkaline Phosphatase Lactate Dehydrogenase Total Creatine Kinase Troponin T C-Reactive Protein NT-Pro-B Natriuret Pep Serum Total Protein Total Protein Albumin Cholesterol LDL Cholesterol Direct HDL Cholesterol PTH Intact Arterial Blood Glucose Urine WBC (Auto) Urine Creatinine Valproic Acid Heparin-induced Plt Ab Weak positive H Lymph Enumerat CD4/CD8 Absolute CD3 Count Absolute CD4 Count % CD8 Cells Absolute CD8 Count Absolute CD19 Count Coronavirus (PCR) HIV-1 RNA PCR copies/ml HIV-1 RNA (PCR) log 09/22/20 09/22/20 09/23/20 16:53 23:55 04:36 WBC 14.2 H RBC 3.05 L Hgb 9.8 L Hct 28.4 L MCV MCH MCHC RDW Plt Count 39 L Lymph % (Auto) [place] % (Auto) Lymph # (Auto) [place] # (Auto) Seg Neutrophils % Seg Neuts % (Manual) 91.0 H Lymphocytes % (Manual) 2.0 L Monocytes % (Manual) Nucleated RBC % Seg Neutrophils # Seg Neutrophils # Man 12.9 H Abs Lymphs (Manual) Lymphocytes # (Manual) 0.3 L PT INR APTT D-Dimer Heparin Anti-Xa Level ABG pH POC ABG pCO2 POC ABG pO2 ABG Oxyhemoglobin ABG Sodium ABG Potassium ABG Glucose Carboxyhemoglobin Sodium Potassium Chloride Carbon Dioxide BUN Creatinine Glucose POC Glucose 138 H 171 H Calcium Phosphorus Ferritin Total Bilirubin AST ALT Alkaline Phosphatase Lactate Dehydrogenase Total Creatine Kinase Troponin T C-Reactive Protein NT-Pro-B Natriuret Pep Serum Total Protein Total Protein Albumin Cholesterol LDL Cholesterol Direct HDL Cholesterol PTH Intact Arterial Blood Glucose Urine WBC (Auto) Urine Creatinine Valproic Acid Heparin-induced Plt Ab Lymph Enumerat CD4/CD8 Absolute CD3 Count Absolute CD4 Count % CD8 Cells Absolute CD8 Count Absolute CD19 Count Coronavirus (PCR) HIV-1 RNA PCR copies/ml HIV-1 RNA (PCR) log 09/23/20 09/23/20 09/23/20 04:36 05:41 11:38 WBC RBC Hgb Hct MCV MCH MCHC RDW Plt Count Lymph % (Auto) [place] % (Auto) Lymph # (Auto) [place] # (Auto) Seg Neutrophils % Seg Neuts % (Manual) Lymphocytes % (Manual) Monocytes % (Manual) Nucleated RBC % Seg Neutrophils # Seg Neutrophils # Man Abs Lymphs (Manual) Lymphocytes # (Manual) PT INR APTT D-Dimer Heparin Anti-Xa Level ABG pH POC ABG pCO2 POC ABG pO2 ABG Oxyhemoglobin ABG Sodium ABG Potassium ABG Glucose Carboxyhemoglobin Sodium Potassium Chloride Carbon Dioxide BUN 76 H Creatinine 3.1 H Glucose 157 H POC Glucose 136 H 141 H Calcium Phosphorus Ferritin Total Bilirubin AST ALT Alkaline Phosphatase Lactate Dehydrogenase Total Creatine Kinase Troponin T C-Reactive Protein NT-Pro-B Natriuret Pep Serum Total Protein Total Protein Albumin Cholesterol LDL Cholesterol Direct HDL Cholesterol PTH Intact Arterial Blood Glucose Urine WBC (Auto) Urine Creatinine Valproic Acid Heparin-induced Plt Ab Lymph Enumerat CD4/CD8 Absolute CD3 Count Absolute CD4 Count % CD8 Cells Absolute CD8 Count Absolute CD19 Count Coronavirus (PCR) HIV-1 RNA PCR copies/ml HIV-1 RNA (PCR) log 09/23/20 09/23/20 09/24/20 17:09 23:51 05:00 WBC 24.2 H RBC 3.23 L Hgb 10.0 L Hct 29.7 L MCV MCH MCHC RDW Plt Count 74 L Lymph % (Auto) [place] % (Auto) Lymph # (Auto) [place] # (Auto) Seg Neutrophils % Seg Neuts % (Manual) Lymphocytes % (Manual) Monocytes % (Manual) Nucleated RBC % Seg Neutrophils # Seg Neutrophils # Man Abs Lymphs (Manual) Lymphocytes # (Manual) PT INR APTT D-Dimer Heparin Anti-Xa Level ABG pH POC ABG pCO2 POC ABG pO2 ABG Oxyhemoglobin ABG Sodium ABG Potassium ABG Glucose Carboxyhemoglobin Sodium Potassium Chloride Carbon Dioxide BUN Creatinine Glucose POC Glucose 128 H 128 H Calcium Phosphorus Ferritin Total Bilirubin AST ALT Alkaline Phosphatase Lactate Dehydrogenase Total Creatine Kinase Troponin T C-Reactive Protein NT-Pro-B Natriuret Pep Serum Total Protein Total Protein Albumin Cholesterol LDL Cholesterol Direct HDL Cholesterol PTH Intact Arterial Blood Glucose Urine WBC (Auto) Urine Creatinine Valproic Acid Heparin-induced Plt Ab Lymph Enumerat CD4/CD8 Absolute CD3 Count Absolute CD4 Count % CD8 Cells Absolute CD8 Count Absolute CD19 Count Coronavirus (PCR) HIV-1 RNA PCR copies/ml HIV-1 RNA (PCR) log 09/24/20 09/24/20 09/24/20 05:00 05:00 05:00 WBC RBC Hgb Hct MCV MCH MCHC RDW Plt Count Lymph % (Auto) [place] % (Auto) Lymph # (Auto) [place] # (Auto) Seg Neutrophils % Seg Neuts % (Manual) Lymphocytes % (Manual) Monocytes % (Manual) Nucleated RBC % Seg Neutrophils # Seg Neutrophils # Man Abs Lymphs (Manual) Lymphocytes # (Manual) PT INR APTT D-Dimer 1772.86 H Heparin Anti-Xa Level ABG pH POC ABG pCO2 POC ABG pO2 ABG Oxyhemoglobin ABG Sodium ABG Potassium ABG Glucose Carboxyhemoglobin Sodium Potassium Chloride 107.1 H Carbon Dioxide BUN 90 H Creatinine 3.1 H Glucose 118 H POC Glucose Calcium Phosphorus Ferritin 1190.0 H Total Bilirubin AST ALT Alkaline Phosphatase Lactate Dehydrogenase 276 H Total Creatine Kinase Troponin T C-Reactive Protein 4.20 H NT-Pro-B Natriuret Pep Serum Total Protein Total Protein Albumin Cholesterol LDL Cholesterol Direct HDL Cholesterol PTH Intact Arterial Blood Glucose Urine WBC (Auto) Urine Creatinine Valproic Acid Heparin-induced Plt Ab Lymph Enumerat CD4/CD8 Absolute CD3 Count Absolute CD4 Count % CD8 Cells Absolute CD8 Count Absolute CD19 Count Coronavirus (PCR) HIV-1 RNA PCR copies/ml HIV-1 RNA (PCR) log 09/24/20 09/24/20 09/24/20 05:12 11:25 12:09 WBC RBC Hgb Hct MCV MCH MCHC RDW Plt Count Lymph % (Auto) [place] % (Auto) Lymph # (Auto) [place] # (Auto) Seg Neutrophils % Seg Neuts % (Manual) Lymphocytes % (Manual) Monocytes % (Manual) Nucleated RBC % Seg Neutrophils # Seg Neutrophils # Man Abs Lymphs (Manual) Lymphocytes # (Manual) PT INR APTT D-Dimer Heparin Anti-Xa Level ABG pH POC ABG pCO2 POC ABG pO2 ABG Oxyhemoglobin ABG Sodium ABG Potassium ABG Glucose Carboxyhemoglobin Sodium Potassium Chloride Carbon Dioxide BUN Creatinine 3.1 H Glucose POC Glucose 114 H 110 H Calcium Phosphorus Ferritin Total Bilirubin AST ALT Alkaline Phosphatase Lactate Dehydrogenase Total Creatine Kinase Troponin T C-Reactive Protein NT-Pro-B Natriuret Pep Serum Total Protein Total Protein Albumin Cholesterol LDL Cholesterol Direct HDL Cholesterol PTH Intact Arterial Blood Glucose Urine WBC (Auto) Urine Creatinine Valproic Acid Heparin-induced Plt Ab Lymph Enumerat CD4/CD8 Absolute CD3 Count Absolute CD4 Count % CD8 Cells Absolute CD8 Count Absolute CD19 Count Coronavirus (PCR) HIV-1 RNA PCR copies/ml HIV-1 RNA (PCR) log 09/24/20 09/24/20 09/24/20 12:13 12:13 17:41 WBC 20.8 H RBC 3.04 L Hgb 9.5 L Hct 28.0 L MCV MCH MCHC RDW Plt Count 78 L Lymph % (Auto) [place] % (Auto) Lymph # (Auto) [place] # (Auto) Seg Neutrophils % Seg Neuts % (Manual) Lymphocytes % (Manual) Monocytes % (Manual) Nucleated RBC % Seg Neutrophils # Seg Neutrophils # Man Abs Lymphs (Manual) Lymphocytes # (Manual) PT 15.7 H INR 1.27 H APTT D-Dimer Heparin Anti-Xa Level ABG pH POC ABG pCO2 POC ABG pO2 ABG Oxyhemoglobin ABG Sodium ABG Potassium ABG Glucose Carboxyhemoglobin Sodium Potassium Chloride Carbon Dioxide BUN Creatinine Glucose POC Glucose 133 H Calcium Phosphorus Ferritin Total Bilirubin AST ALT Alkaline Phosphatase Lactate Dehydrogenase Total Creatine Kinase Troponin T C-Reactive Protein NT-Pro-B Natriuret Pep Serum Total Protein Total Protein Albumin Cholesterol LDL Cholesterol Direct HDL Cholesterol PTH Intact Arterial Blood Glucose Urine WBC (Auto) Urine Creatinine Valproic Acid Heparin-induced Plt Ab Lymph Enumerat CD4/CD8 Absolute CD3 Count Absolute CD4 Count % CD8 Cells Absolute CD8 Count Absolute CD19 Count Coronavirus (PCR) HIV-1 RNA PCR copies/ml HIV-1 RNA (PCR) log 09/24/20 09/25/20 09/25/20 23:34 06:40 06:40 WBC RBC Hgb Hct MCV MCH MCHC RDW Plt Count Lymph % (Auto) [place] % (Auto) Lymph # (Auto) [place] # (Auto) Seg Neutrophils % Seg Neuts % (Manual) Lymphocytes % (Manual) Monocytes % (Manual) Nucleated RBC % Seg Neutrophils # Seg Neutrophils # Man Abs Lymphs (Manual) Lymphocytes # (Manual) PT INR APTT D-Dimer Heparin Anti-Xa Level ABG pH POC ABG pCO2 POC ABG pO2 ABG Oxyhemoglobin ABG Sodium ABG Potassium ABG Glucose Carboxyhemoglobin Sodium Potassium Chloride 109.0 H Carbon Dioxide BUN 98 H Creatinine 3.0 H 3.0 H Glucose 111 H POC Glucose 113 H Calcium Phosphorus Ferritin Total Bilirubin AST ALT Alkaline Phosphatase Lactate Dehydrogenase Total Creatine Kinase Troponin T C-Reactive Protein NT-Pro-B Natriuret Pep Serum Total Protein Total Protein Albumin Cholesterol LDL Cholesterol Direct HDL Cholesterol PTH Intact Arterial Blood Glucose Urine WBC (Auto) Urine Creatinine Valproic Acid Heparin-induced Plt Ab Lymph Enumerat CD4/CD8 Absolute CD3 Count Absolute CD4 Count % CD8 Cells Absolute CD8 Count Absolute CD19 Count Coronavirus (PCR) HIV-1 RNA PCR copies/ml HIV-1 RNA (PCR) log 09/25/20 09/25/20 09/25/20 10:45 12:45 18:03 WBC 20.7 H RBC 3.33 L Hgb 10.2 L Hct 31.3 L MCV MCH MCHC RDW Plt Count 139 L Lymph % (Auto) [place] % (Auto) Lymph # (Auto) [place] # (Auto) Seg Neutrophils % Seg Neuts % (Manual) Lymphocytes % (Manual) Monocytes % (Manual) Nucleated RBC % Seg Neutrophils # Seg Neutrophils # Man Abs Lymphs (Manual) Lymphocytes # (Manual) PT INR APTT D-Dimer Heparin Anti-Xa Level ABG pH POC ABG pCO2 POC ABG pO2 ABG Oxyhemoglobin ABG Sodium ABG Potassium ABG Glucose Carboxyhemoglobin Sodium Potassium Chloride Carbon Dioxide BUN Creatinine Glucose POC Glucose 108 H 114 H Calcium Phosphorus Ferritin Total Bilirubin AST ALT Alkaline Phosphatase Lactate Dehydrogenase Total Creatine Kinase Troponin T C-Reactive Protein NT-Pro-B Natriuret Pep Serum Total Protein Total Protein Albumin Cholesterol LDL Cholesterol Direct HDL Cholesterol PTH Intact Arterial Blood Glucose Urine WBC (Auto) Urine Creatinine Valproic Acid Heparin-induced Plt Ab Lymph Enumerat CD4/CD8 Absolute CD3 Count Absolute CD4 Count % CD8 Cells Absolute CD8 Count Absolute CD19 Count Coronavirus (PCR) HIV-1 RNA PCR copies/ml HIV-1 RNA (PCR) log 09/25/20 09/26/20 09/26/20 23:29 05:00 07:06 WBC 17.0 H RBC 3.10 L Hgb 9.6 L Hct 28.8 L MCV MCH MCHC RDW Plt Count Lymph % (Auto) [place] % (Auto) Lymph # (Auto) [place] # (Auto) Seg Neutrophils % Seg Neuts % (Manual) Lymphocytes % (Manual) Monocytes % (Manual) Nucleated RBC % Seg Neutrophils # Seg Neutrophils # Man Abs Lymphs (Manual) Lymphocytes # (Manual) PT INR APTT D-Dimer Heparin Anti-Xa Level ABG pH POC ABG pCO2 POC ABG pO2 ABG Oxyhemoglobin ABG Sodium ABG Potassium ABG Glucose Carboxyhemoglobin Sodium Potassium Chloride Carbon Dioxide BUN Creatinine Glucose POC Glucose 111 H 115 H Calcium Phosphorus Ferritin Total Bilirubin AST ALT Alkaline Phosphatase Lactate Dehydrogenase Total Creatine Kinase Troponin T C-Reactive Protein NT-Pro-B Natriuret Pep Serum Total Protein Total Protein Albumin Cholesterol LDL Cholesterol Direct HDL Cholesterol PTH Intact Arterial Blood Glucose Urine WBC (Auto) Urine Creatinine Valproic Acid Heparin-induced Plt Ab Lymph Enumerat CD4/CD8 Absolute CD3 Count Absolute CD4 Count % CD8 Cells Absolute CD8 Count Absolute CD19 Count Coronavirus (PCR) HIV-1 RNA PCR copies/ml HIV-1 RNA (PCR) log 09/26/20 09/26/20 09/27/20 07:06 17:26 04:00 WBC RBC Hgb Hct MCV MCH MCHC RDW Plt Count Lymph % (Auto) [place] % (Auto) Lymph # (Auto) [place] # (Auto) Seg Neutrophils % Seg Neuts % (Manual) Lymphocytes % (Manual) Monocytes % (Manual) Nucleated RBC % Seg Neutrophils # Seg Neutrophils # Man Abs Lymphs (Manual) Lymphocytes # (Manual) PT INR APTT D-Dimer Heparin Anti-Xa Level ABG pH POC ABG pCO2 POC ABG pO2 ABG Oxyhemoglobin ABG Sodium ABG Potassium ABG Glucose Carboxyhemoglobin Sodium Potassium Chloride Carbon Dioxide BUN 69 H 67 H Creatinine 2.2 H 2.3 H Glucose 107 H 121 H POC Glucose 124 H Calcium Phosphorus Ferritin Total Bilirubin AST ALT Alkaline Phosphatase Lactate Dehydrogenase Total Creatine Kinase Troponin T C-Reactive Protein NT-Pro-B Natriuret Pep Serum Total Protein Total Protein Albumin Cholesterol LDL Cholesterol Direct HDL Cholesterol PTH Intact Arterial Blood Glucose Urine WBC (Auto) Urine Creatinine Valproic Acid Heparin-induced Plt Ab Lymph Enumerat CD4/CD8 Absolute CD3 Count Absolute CD4 Count % CD8 Cells Absolute CD8 Count Absolute CD19 Count Coronavirus (PCR) HIV-1 RNA PCR copies/ml HIV-1 RNA (PCR) log 09/27/20 09/27/20 09/27/20 04:00 05:00 17:11 WBC 14.6 H RBC 2.72 L Hgb 8.6 L Hct 25.8 L MCV 95 H MCH MCHC RDW Plt Count Lymph % (Auto) 4.3 L [place] % (Auto) Lymph # (Auto) 0.6 L [place] # (Auto) 0.9 H Seg Neutrophils % 89.6 H Seg Neuts % (Manual) Lymphocytes % (Manual) Monocytes % (Manual) Nucleated RBC % Seg Neutrophils # 13.1 H Seg Neutrophils # Man Abs Lymphs (Manual) Lymphocytes # (Manual) PT INR APTT D-Dimer Heparin Anti-Xa Level ABG pH POC ABG pCO2 POC ABG pO2 ABG Oxyhemoglobin ABG Sodium ABG Potassium ABG Glucose Carboxyhemoglobin Sodium Potassium Chloride Carbon Dioxide BUN Creatinine 2.4 H Glucose POC Glucose 132 H Calcium Phosphorus Ferritin Total Bilirubin AST ALT Alkaline Phosphatase Lactate Dehydrogenase Total Creatine Kinase Troponin T C-Reactive Protein NT-Pro-B Natriuret Pep Serum Total Protein Total Protein Albumin Cholesterol LDL Cholesterol Direct HDL Cholesterol PTH Intact Arterial Blood Glucose Urine WBC (Auto) Urine Creatinine Valproic Acid Heparin-induced Plt Ab Lymph Enumerat CD4/CD8 Absolute CD3 Count Absolute CD4 Count % CD8 Cells Absolute CD8 Count Absolute CD19 Count Coronavirus (PCR) HIV-1 RNA PCR copies/ml HIV-1 RNA (PCR) log 09/28/20 09/28/20 09/29/20 04:46 04:46 04:45 WBC 14.6 H RBC 2.66 L Hgb 8.4 L Hct 25.3 L MCV 95 H MCH MCHC RDW Plt Count Lymph % (Auto) [place] % (Auto) Lymph # (Auto) [place] # (Auto) Seg Neutrophils % Seg Neuts % (Manual) Lymphocytes % (Manual) Monocytes % (Manual) Nucleated RBC % Seg Neutrophils # Seg Neutrophils # Man Abs Lymphs (Manual) Lymphocytes # (Manual) PT INR APTT D-Dimer Heparin Anti-Xa Level ABG pH POC ABG pCO2 POC ABG pO2 ABG Oxyhemoglobin ABG Sodium ABG Potassium ABG Glucose Carboxyhemoglobin Sodium Potassium Chloride Carbon Dioxide BUN 71 H 63 H Creatinine 2.3 H 2.2 H Glucose 105 H POC Glucose Calcium Phosphorus Ferritin Total Bilirubin AST ALT Alkaline Phosphatase Lactate Dehydrogenase Total Creatine Kinase Troponin T C-Reactive Protein NT-Pro-B Natriuret Pep Serum Total Protein Total Protein Albumin Cholesterol LDL Cholesterol Direct HDL Cholesterol PTH Intact Arterial Blood Glucose Urine WBC (Auto) Urine Creatinine Valproic Acid Heparin-induced Plt Ab Lymph Enumerat CD4/CD8 Absolute CD3 Count Absolute CD4 Count % CD8 Cells Absolute CD8 Count Absolute CD19 Count Coronavirus (PCR) HIV-1 RNA PCR copies/ml HIV-1 RNA (PCR) log 09/29/20 09/29/20 09/29/20 04:45 05:43 17:50 WBC RBC 2.92 L Hgb 9.6 L Hct 28.1 L MCV 96 H MCH 33 H MCHC RDW Plt Count Lymph % (Auto) [place] % (Auto) Lymph # (Auto) [place] # (Auto) Seg Neutrophils % Seg Neuts % (Manual) Lymphocytes % (Manual) Monocytes % (Manual) Nucleated RBC % Seg Neutrophils # Seg Neutrophils # Man Abs Lymphs (Manual) Lymphocytes # (Manual) PT INR APTT D-Dimer Heparin Anti-Xa Level ABG pH POC ABG pCO2 POC ABG pO2 ABG Oxyhemoglobin ABG Sodium ABG Potassium ABG Glucose Carboxyhemoglobin Sodium Potassium Chloride Carbon Dioxide BUN Creatinine Glucose POC Glucose 69 L 132 H Calcium Phosphorus Ferritin Total Bilirubin AST ALT Alkaline Phosphatase Lactate Dehydrogenase Total Creatine Kinase Troponin T C-Reactive Protein NT-Pro-B Natriuret Pep Serum Total Protein Total Protein Albumin Cholesterol LDL Cholesterol Direct HDL Cholesterol PTH Intact Arterial Blood Glucose Urine WBC (Auto) Urine Creatinine Valproic Acid Heparin-induced Plt Ab Lymph Enumerat CD4/CD8 Absolute CD3 Count Absolute CD4 Count % CD8 Cells Absolute CD8 Count Absolute CD19 Count Coronavirus (PCR) HIV-1 RNA PCR copies/ml HIV-1 RNA (PCR) log 09/30/20 09/30/20 09/30/20 04:47 04:47 04:47 WBC RBC 2.47 L Hgb 8.1 L Hct 23.9 L MCV 97 H MCH 33 H MCHC RDW Plt Count Lymph % (Auto) [place] % (Auto) Lymph # (Auto) [place] # (Auto) Seg Neutrophils % Seg Neuts % (Manual) Lymphocytes % (Manual) Monocytes % (Manual) Nucleated RBC % Seg Neutrophils # Seg Neutrophils # Man Abs Lymphs (Manual) Lymphocytes # (Manual) PT INR APTT D-Dimer Heparin Anti-Xa Level ABG pH POC ABG pCO2 POC ABG pO2 ABG Oxyhemoglobin ABG Sodium ABG Potassium ABG Glucose Carboxyhemoglobin Sodium Potassium Chloride Carbon Dioxide 31 H BUN 63 H Creatinine 2.1 H Glucose POC Glucose Calcium Phosphorus Ferritin Total Bilirubin AST ALT Alkaline Phosphatase Lactate Dehydrogenase Total Creatine Kinase Troponin T C-Reactive Protein NT-Pro-B Natriuret Pep Serum Total Protein 5.5 L Total Protein 5.9 L Albumin 2.2 L 2.1 L Cholesterol LDL Cholesterol Direct HDL Cholesterol PTH Intact Arterial Blood Glucose Urine WBC (Auto) Urine Creatinine Valproic Acid Heparin-induced Plt Ab Lymph Enumerat CD4/CD8 Absolute CD3 Count Absolute CD4 Count % CD8 Cells Absolute CD8 Count Absolute CD19 Count Coronavirus (PCR) HIV-1 RNA PCR copies/ml HIV-1 RNA (PCR) log 10/01/20 10/01/20 10/02/20 07:16 08:30 05:10 WBC RBC Hgb Hct MCV MCH MCHC RDW Plt Count Lymph % (Auto) [place] % (Auto) Lymph # (Auto) [place] # (Auto) Seg Neutrophils % Seg Neuts % (Manual) Lymphocytes % (Manual) Monocytes % (Manual) Nucleated RBC % Seg Neutrophils # Seg Neutrophils # Man Abs Lymphs (Manual) Lymphocytes # (Manual) PT INR APTT D-Dimer Heparin Anti-Xa Level ABG pH POC ABG pCO2 POC ABG pO2 ABG Oxyhemoglobin ABG Sodium ABG Potassium ABG Glucose Carboxyhemoglobin Sodium Potassium Chloride Carbon Dioxide BUN 58 H 48 H Creatinine 2.2 H 2.0 H Glucose POC Glucose Calcium Phosphorus Ferritin Total Bilirubin AST ALT Alkaline Phosphatase Lactate Dehydrogenase Total Creatine Kinase Troponin T C-Reactive Protein NT-Pro-B Natriuret Pep Serum Total Protein Total Protein Albumin Cholesterol LDL Cholesterol Direct HDL Cholesterol PTH Intact Arterial Blood Glucose Urine WBC (Auto) Urine Creatinine Valproic Acid Heparin-induced Plt Ab Lymph Enumerat CD4/CD8 Absolute CD3 Count Absolute CD4 Count % CD8 Cells Absolute CD8 Count Absolute CD19 Count Coronavirus (PCR) Positive A HIV-1 RNA PCR copies/ml HIV-1 RNA (PCR) log 10/03/20 10/03/20 10/04/20 08:12 08:12 18:19 WBC RBC Hgb Hct MCV MCH MCHC RDW Plt Count Lymph % (Auto) [place] % (Auto) Lymph # (Auto) [place] # (Auto) Seg Neutrophils % Seg Neuts % (Manual) Lymphocytes % (Manual) Monocytes % (Manual) Nucleated RBC % Seg Neutrophils # Seg Neutrophils # Man Abs Lymphs (Manual) Lymphocytes # (Manual) PT INR APTT D-Dimer Heparin Anti-Xa Level ABG pH POC ABG pCO2 POC ABG pO2 ABG Oxyhemoglobin ABG Sodium ABG Potassium ABG Glucose Carboxyhemoglobin Sodium Potassium 5.4 H D Chloride Carbon Dioxide BUN 48 H 39 H Creatinine 2.2 H 2.7 H Glucose POC Glucose Calcium 8.0 L Phosphorus Ferritin Total Bilirubin AST ALT Alkaline Phosphatase Lactate Dehydrogenase Total Creatine Kinase Troponin T C-Reactive Protein NT-Pro-B Natriuret Pep Serum Total Protein Total Protein Albumin Cholesterol LDL Cholesterol Direct HDL Cholesterol PTH Intact Arterial Blood Glucose Urine WBC (Auto) Urine Creatinine Valproic Acid 17.8 L Heparin-induced Plt Ab Lymph Enumerat CD4/CD8 Absolute CD3 Count Absolute CD4 Count % CD8 Cells Absolute CD8 Count Absolute CD19 Count Coronavirus (PCR) HIV-1 RNA PCR copies/ml HIV-1 RNA (PCR) log 10/04/20 10/05/20 10/05/20 18:19 07:14 07:14 WBC RBC 2.44 L 2.36 L Hgb 8.0 L 7.8 L Hct 24.0 L 23.3 L MCV 98 H 99 H MCH 33 H 33 H MCHC RDW 15.6 H 16.0 H Plt Count Lymph % (Auto) [place] % (Auto) Lymph # (Auto) [place] # (Auto) Seg Neutrophils % Seg Neuts % (Manual) Lymphocytes % (Manual) Monocytes % (Manual) Nucleated RBC % Seg Neutrophils # Seg Neutrophils # Man Abs Lymphs (Manual) Lymphocytes # (Manual) PT INR APTT D-Dimer Heparin Anti-Xa Level ABG pH POC ABG pCO2 POC ABG pO2 ABG Oxyhemoglobin ABG Sodium ABG Potassium ABG Glucose Carboxyhemoglobin Sodium Potassium Chloride Carbon Dioxide BUN 36 H Creatinine 2.5 H Glucose POC Glucose Calcium Phosphorus Ferritin Total Bilirubin AST ALT Alkaline Phosphatase Lactate Dehydrogenase Total Creatine Kinase Troponin T C-Reactive Protein NT-Pro-B Natriuret Pep Serum Total Protein Total Protein Albumin Cholesterol LDL Cholesterol Direct HDL Cholesterol PTH Intact Arterial Blood Glucose Urine WBC (Auto) Urine Creatinine Valproic Acid Heparin-induced Plt Ab Lymph Enumerat CD4/CD8 Absolute CD3 Count Absolute CD4 Count % CD8 Cells Absolute CD8 Count Absolute CD19 Count Coronavirus (PCR) HIV-1 RNA PCR copies/ml HIV-1 RNA (PCR) log 10/06/20 10/06/20 10/07/20 08:04 Unknown 06:45 WBC RBC 2.38 L Hgb 7.9 L Hct 23.2 L MCV 98 H MCH 33 H MCHC RDW 15.4 H Plt Count Lymph % (Auto) [place] % (Auto) Lymph # (Auto) [place] # (Auto) Seg Neutrophils % Seg Neuts % (Manual) Lymphocytes % (Manual) Monocytes % (Manual) Nucleated RBC % Seg Neutrophils # Seg Neutrophils # Man Abs Lymphs (Manual) Lymphocytes # (Manual) PT INR APTT D-Dimer Heparin Anti-Xa Level ABG pH POC ABG pCO2 POC ABG pO2 ABG Oxyhemoglobin ABG Sodium ABG Potassium ABG Glucose Carboxyhemoglobin Sodium Potassium 3.5 L Chloride 107.2 H Carbon Dioxide BUN 30 H Creatinine 2.2 H Glucose POC Glucose Calcium Phosphorus Ferritin Total Bilirubin AST ALT Alkaline Phosphatase Lactate Dehydrogenase Total Creatine Kinase Troponin T C-Reactive Protein NT-Pro-B Natriuret Pep Serum Total Protein Total Protein Albumin Cholesterol LDL Cholesterol Direct HDL Cholesterol PTH Intact Arterial Blood Glucose Urine WBC (Auto) Urine Creatinine Valproic Acid Heparin-induced Plt Ab Lymph Enumerat CD4/CD8 Absolute CD3 Count Absolute CD4 Count % CD8 Cells Absolute CD8 Count Absolute CD19 Count Coronavirus (PCR) Positive A HIV-1 RNA PCR copies/ml HIV-1 RNA (PCR) log 10/07/20 10/08/20 10/10/20 06:45 20:19 06:57 WBC RBC Hgb Hct MCV MCH MCHC RDW Plt Count Lymph % (Auto) [place] % (Auto) Lymph # (Auto) [place] # (Auto) Seg Neutrophils % Seg Neuts % (Manual) Lymphocytes % (Manual) Monocytes % (Manual) Nucleated RBC % Seg Neutrophils # Seg Neutrophils # Man Abs Lymphs (Manual) Lymphocytes # (Manual) PT INR APTT D-Dimer Heparin Anti-Xa Level ABG pH POC ABG pCO2 POC ABG pO2 ABG Oxyhemoglobin ABG Sodium ABG Potassium ABG Glucose Carboxyhemoglobin Sodium 135 L Potassium 3.5 L Chloride Carbon Dioxide BUN 28 H 22 H Creatinine 2.2 H 2.0 H 2.0 H Glucose POC Glucose Calcium Phosphorus Ferritin Total Bilirubin AST ALT Alkaline Phosphatase Lactate Dehydrogenase Total Creatine Kinase Troponin T C-Reactive Protein NT-Pro-B Natriuret Pep Serum Total Protein Total Protein Albumin Cholesterol LDL Cholesterol Direct HDL Cholesterol PTH Intact Arterial Blood Glucose Urine WBC (Auto) Urine Creatinine Valproic Acid Heparin-induced Plt Ab Lymph Enumerat CD4/CD8 Absolute CD3 Count Absolute CD4 Count % CD8 Cells Absolute CD8 Count Absolute CD19 Count Coronavirus (PCR) HIV-1 RNA PCR copies/ml HIV-1 RNA (PCR) log 10/11/20 10/12/20 07:29 05:48 WBC RBC Hgb Hct MCV MCH MCHC RDW Plt Count Lymph % (Auto) [place] % (Auto) Lymph # (Auto) [place] # (Auto) Seg Neutrophils % Seg Neuts % (Manual) Lymphocytes % (Manual) Monocytes % (Manual) Nucleated RBC % Seg Neutrophils # Seg Neutrophils # Man Abs Lymphs (Manual) Lymphocytes # (Manual) PT INR APTT D-Dimer Heparin Anti-Xa Level ABG pH POC ABG pCO2 POC ABG pO2 ABG Oxyhemoglobin ABG Sodium ABG Potassium ABG Glucose Carboxyhemoglobin Sodium 136 L Potassium Chloride Carbon Dioxide BUN 21 H Creatinine 2.0 H 1.9 H Glucose POC Glucose Calcium 8.3 L Phosphorus Ferritin Total Bilirubin AST ALT Alkaline Phosphatase Lactate Dehydrogenase Total Creatine Kinase Troponin T C-Reactive Protein NT-Pro-B Natriuret Pep Serum Total Protein Total Protein Albumin Cholesterol LDL Cholesterol Direct HDL Cholesterol PTH Intact Arterial Blood Glucose Urine WBC (Auto) Urine Creatinine Valproic Acid Heparin-induced Plt Ab Lymph Enumerat CD4/CD8 Absolute CD3 Count Absolute CD4 Count % CD8 Cells Absolute CD8 Count Absolute CD19 Count Coronavirus (PCR) HIV-1 RNA PCR copies/ml HIV-1 RNA (PCR) log Allied health notes reviewed: nursing
--- NOTE | 2020-10-12 11:23 | Progress Note ---
Assessment and Plan Assessment and plan: This is 70-year-old male with HIV, HTN, and atrial fibrillation (currently on therapeutic anticoagulation with Xarelto) presents the emergency department on 09/17 with complaints of shortness of breath over the past 3 days and on arrival of EMS patient was found to have a pulse oximetry of 85% on room air. He was placed on supplemental oxygenation. Of note patient was admitted on 09/15 with similar complaints and found to have A. fib with RVR, hyponatremia, hypomagnesemia and acute kidney injury and left AMA. He was admitted to the hospital service with atrial fibrillation with RVR, SIRs, metabolic acidosis, acute kidney injury, acute hypoxic respiratory failure, hypotension, and CHF . Cardiology, CCM and nephrology were consulted. 09/18/2020. Await echocardiogram to assess for diastolic versus systolic etiology. Patient with elevated BNP greater than 18,000. Patient apparently was admitted approximately 3 days ago but left AMA. Cardiology consulted for heart failure, A. fib with RVR and elevated troponin. Patient denies chest pain. Also, patient with elevated creatinine of 4.7 with creatinine 2.8 on recent admission. We do not have a previous creatinine as a baseline to compar e. Nephrology consultation pending. Follow-up renal ultrasound. Patient with coagulopathy and INR 3.04. Unsure if patient was on anticoagulation for A. fib. 09/19/2020. Patient likely with vasomotor acute kidney injury in the setting of shock. Follow-up urine studies and renal ultrasound. Creatinine continues to worsen. Nephrology following. Etiology of respiratory failure secondary to hea rt failure with Covid testing pending. Elevated troponin suggestive of NSTEMI. Continue diuresis with Lasix. Continue IV amiodarone for rate control of A. fib with RVR. Continue heparin. Follow-up echocardiogram. Cardiology following. 09/20/2020: This time my examination patient was on BiPAP therapy and now is on nasal cannula. Patient remains on amiodarone drip with heart rate in the 130s t o 140s and vasopressor support with Levophed. Today nephrology will initiate hemodialysis given worsening renal function studies and has stopped diuresis with Lasix. ID resumed antiretroviral therapy and ordered a HIDA scan. Today the patient received a temporary Vas-Cath and is COVID-19 PCR resulted as positive. Patient will be started on vitamin C, vitamin D and zinc and dexamethasone given need for supplemental oxygenation. 09/21: Ecoli UTI and bacteremia and ID has changed him to meropenem, Patient received HD yesterday and patient remains on amiodarone drip. He is off the floor to obtain a HIDA scan. 09/22: HIDA scan did not show acute cholecystitis. Ecoli bacteremia is sensitive to ceftriaxone and ID changed his abx. Mentation is better. BP is liable. Remains on levophed and vasopressin. We started midodrine. HIT panel pending and hem/onc consulted. 09/23: Patient noted to have unequal pupils with left >right, STAT CT head ordered. Nephro will withhold hemodialysis and assess needs as kidney function has gotten better. Patient symptomatically follows commands and is on nasal cannula. Cardiology stopped his Eliquis due to persistent thrombocytopenia. 09/24: Patient remains confused, pupils still unequal. Started on eliquis 2.5 today and he will be transferred to IMCU. 09/25: Patient remains confused, had Bipap overnight, CT abd/pelvis ordered per ID recommendations given persistent leukocytosis. Cr remains unchanged but BUN in rising. Nephrology is on the case. 09/26/2020; patient was confused and on 3 L of oxygen. ID is following the patient and continue with antiretroviral medications, no OI prophylaxis needed. Patient is on IV Rocephin lasted 09/28 per ID recommendation for E. coli bacteremia. ID ordered CT abdomen and pelvis. We will follow the results. Sulaiman wild is being followed by cardiology and they recommend to resume Eliquis with 2.5 mg p.o. twice daily, thrombocytopenia is improving. Patient is on amiodarone and metoprolol. Patient is being followed by nephrology and is on dialysis. Blood pressure was normal this morning. Patient was tachycardic in A. fib with RVR. CT head was normal. Prognosis is guarded. Continue IMCU care. 09/27: Continue IMCU care, still with unresolved Afib, will continue to adjust medications for better control. 09/28: Start Seroquel DUE TO THE AGITATION, Discussed with daughter, will work on getting Afib better controlled. Per daughter the confusion is new, although some improvement noted today. Patient will benefit from SNF 09/29: Seroquel started today as it was not started yesterday, await PT/OT, Continue to monitor mental status, will transfer to Tele. Anticipate discharge when bed available. 09/30: Discussed extensively with the daughter about her clinical condition, Seroquel discontinued as patient did not tolerate, still with low BP responded to Fluids. Hold BB and continue to monitor and redirect. Discussed with Nursing staff. 10/01: Patient seen and examined resting comfortably still with intermittent delirium. Blood pressure has improved although beta-ruddy was held midodrine was given. Will change to Coreg 3.125 with holding parameters on discharge. Per cardiology amiodarone changed to 200 mg daily. Neurology evaluation is still pending. I have initiated placement to a SNF facility and once approved patient can be discharged. Daughter has been updated on medical condition. For now on anticoagulation left in place although outpatient this may be discontinued due to patient's mental status if there is no improvement. 10/02: Neurology evaluated the patient for increased agitation and aggressive behavior and confusion. Exam suggestive of delirium stopped. Due to not tolerating Seroquel, now Geodon trial Haldol however recommended also valproic acid. No overnight issues reported. Continue awaiting SNF placement for continued rehab. Blood pressure has remained stable no further fever recorded. Monitor for any recurrence of the pain in the leg. 10/03: I have asked for a sitter a few days ago unfortunately not as available as a result restraints have been used and reassurances. Will decrease Seroquel to 12.5 twice daily as patient did not tolerate the 25 mg. Continue supportive care blood pressure meds held due to hypotension. Delirium still present delirium preventive methods including keeping the lights on through the night windows shades up discussed with nursing staff. Also discussed with neurologist. 10/04: 70-year-old male admitted to the hospital with hypoxic respiratory failure history of Covid. During hospitalization developed A. fib with RVR status metabolic acidosis and acute kidney injury. Has also been exhibiting some delirium was managed in the ICU and IMCU and subsequently is awaiting placement. He was seen by neurologist delirium of diagnosis secondary to metabolic issues. Seroquel was started initially at 25 mg p.o. twice daily but patient developed hypotension now better improved BP, Continue seroquel 12.5mg po BID seems to have good improvement in mental status. awaiting labs due to noted hyperkalemia yesterday. Repeat covud test for placement. 10/05/2020; patient is pending for placement. Repeat Covid test is negative. Blood pressure is within normal limit. Patient is confused. 10/06/2020; repeat Covid test is negative. Patient is confused. Patient last dialysis was on 09/25, renal function is stable, no need dialysis, nephrology is following. 10/07/2020; Covid test was done yesterday and was positive. Renal function is improving and nephrology is following at this time. Last dialysis was on 09/25. Patient is pending placement. Mental health consulted for confusion. 10/08/2020; patient was calm and cooperative. Patient was on condom cath. Patient was oriented only to self. 10/09/2020; patient was calm and cooperative. Patient was oriented only to self. Renal function is improving. Patient is pending placement. 10/10/2020; pending SNF placement. Patient is stable for discharge. 10/11: Continue supportive care. Awaiting placement. This morning was still confused ambulating saying that he was leaving. No worsening respiratory status noted. Safety precautions and fall precautions discussed extensively with nursing staff 10/12: Continue supportive care, discontinue Gardner Following irrigation. We will check a CBC to ensure no further decreasing H&H. Continue current management patient tolerating diet and completing 100% of his meal per staff. Altered mental status is significantly improved. Septic Shock Acute hypoxemic respiratory failure 2/2 to volume overload/chf exacerbation Acute systolic heart failure exacerbation Atrial fibrillation with RVR Hematuria Acute on chronic kidney injury Hypotension Anemia Thrombocytopenia E coli bacteremia E. coli urinary tract infection NSTEMI Elevated Ddimer Leukocytosis HIV, asymptomatic HTN Coagulopathy Transaminitis -Cardiology, CCM, Nephrology, ID, general surgery, heme/onc consulted, appreciate recommendations -09/20 COVID-19 PCR positive -Droplet/isolation precautions -Dexamethasone 6 mg p.o. (09/20-09/30) -Vitamin D, vitamin C, zinc -Vasopressor support with levophed and vasopressin, midodrine -09/17 CXR shows borderline heart size, mild central pulmonary venous congestion -09/17 renal ultrasound shows no acute findings -09/18 echocardiogram shows left ventricle systolic function mildly decreased, LVEF of 40 to 45% with mild concentric left ventricle hypertrophy, trace MR, mild TR, trace OK -5/2 abdominal ultrasound shows large gallstone within the gallbladder, no pericholecystic fluid, gallbladder wall upper limits of normal measuring 3 mm -09/21 HIDA scan shows no evidence of acute cholecystitis -09/21 BLE Dopplar US no evidence for DVT -09/23 CT head shows no acute intracranial hemorrhage or parenchymal abnormality, mild diffuse brain atrophy with commensurate ventricular enlargement which is likely age appropriate, small frontal scalp lipoma measuring 9 mm in thickness, 4 cm in length, and 4 cm in width., Sinuses and mastoid air cells are clear. -09/17 proBNP 24292 -S/p IV Lasix twice daily -09/20 nephrology initiated the patient on dialysis -Pulmonary hygiene -Bipap qhs -09/25 CT abd/pelvis without contrast pending -PO amiodarone -HIV meds per ID -IV abx therapy -HIT pending -Trend CBC, BMP, LFTs DVT/GI prophylaxis: PPI, SCDs to bilateral lower extremities while in bed, no chemical anticoagulation at this time d/t thrombocytopenia Disposition: IMCU History Interval history: This is 70-year-old male with HIV, HTN, and atrial fibrillation (currently on therapeutic anticoagulation with Xarelto) admitted with atrial fibrillation with RVR, SIRs, metabolic acidosis, acute kidney injury, acute hypoxic respiratory failure, hypotension, and CHF Patient seen and examined, clinical improving. No adverse event by nursing staff. Hospitalist Physical - Physical exam Narrative exam: Resting comfortably The patient appeared well nourished and normally developed. Vital signs as documented. Head exam is unremarkable. No scleral icterus . Neck is without jugular venous distension, thyromegaly, or carotid bruits. Lungs are clear to auscultation. Cardiac exam reveals regular rate and Rhythm. Abdominal exam reveals normal bowel sounds, nontender, no organomegaly. Extremities are nonedematous and both femoral and pedal pulses are normal. [employer]: Alert awake oriented x2 no focal deficit noted, per nursing staff still with intermittent delirium - Constitutional Vitals: Temp Pulse Resp BP Pulse Ox 98.8 F 111 H 18 102/65 99 10/12/20 05:18 10/12/20 09:54 10/12/20 05:18 10/12/20 05:18 10/12/20 09:54 General appearance: Present: no acute distress HEART Score - HEART Score Troponin: Troponin T < 0.010 ng/mL (0.00-0.029) 09/22/20 05:38 Results - Labs CBC & Chem 7: 10/07/20 06:45 10/12/20 05:48 Labs: Laboratory Last Values WBC 6.1 K/mm3 (4.5-11.0) 10/07/20 06:45 RBC 2.38 M/mm3 (3.65-5.03) L 10/07/20 06:45 Hgb 7.9 gm/dl (11.8-15.2) L 10/07/20 06:45 Hct 23.2 % (35.5-45.6) L 10/07/20 06:45 MCV 98 fl (84-94) H 10/07/20 06:45 MCH 33 pg (28-32) H 10/07/20 06:45 MCHC 34 % (32-34) 10/07/20 06:45 RDW 15.4 % (13.2-15.2) H 10/07/20 06:45 Plt Count 203 K/mm3 (140-440) 10/07/20 06:45 Lymph % (Auto) 4.3 % (13.4-35.0) L 09/27/20 04:00 Hoke % (Auto) 6.0 % (0.0-7.3) 09/27/20 04:00 Eos % (Auto) 0.1 % (0.0-4.3) 09/27/20 04:00 Baso % (Auto) 0.0 % (0.0-1.8) 09/27/20 04:00 Lymph # (Auto) 0.6 K/mm3 (1.2-5.4) L 09/27/20 04:00 Hoke # (Auto) 0.9 K/mm3 (0.0-0.8) H 09/27/20 04:00 Eos # (Auto) 0.0 K/mm3 (0.0-0.4) 09/27/20 04:00 Baso # (Auto) 0.0 K/mm3 (0.0-0.1) 09/27/20 04:00 Add Manual Diff Complete 09/23/20 04:36 Total Counted 100 09/23/20 04:36 Seg Neutrophils % 89.6 % (40.0-70.0) H 09/27/20 04:00 Seg Neuts % (Manual) 91.0 % (40.0-70.0) H 09/23/20 04:36 Band Neutrophils % 2.0 % 09/23/20 04:36 Lymphocytes % (Manual) 2.0 % (13.4-35.0) L 09/23/20 04:36 Monocytes % (Manual) 5.0 % (0.0-7.3) 09/23/20 04:36 Nucleated RBC % Not Reportable 09/23/20 04:36 Seg Neutrophils # 13.1 K/mm3 (1.8-7.7) H 09/27/20 04:00 Seg Neutrophils # Man 12.9 K/mm3 (1.8-7.7) H 09/23/20 04:36 Band Neutrophils # 0.3 K/mm3 09/23/20 04:36 Abs Lymphs (Manual) 223 cells/uL (850-3900) L 09/19/20 13:35 Lymphocytes # (Manual) 0.3 K/mm3 (1.2-5.4) L 09/23/20 04:36 Abs React Lymphs (Man) 0.0 K/mm3 09/23/20 04:36 Monocytes # (Manual) 0.7 K/mm3 (0.0-0.8) 09/23/20 04:36 Eosinophils # (Manual) 0.0 K/mm3 (0.0-0.4) 09/23/20 04:36 Basophils # (Manual) 0.0 K/mm3 (0.0-0.1) 09/23/20 04:36 Metamyelocytes # 0.0 K/mm3 09/23/20 04:36 Myelocytes # 0.0 K/mm3 09/23/20 04:36 Promyelocytes # 0.0 K/mm3 09/23/20 04:36 Blast Cells # 0.0 K/mm3 09/23/20 04:36 WBC Morphology Not Reportable 09/23/20 04:36 Hypersegmented Neuts Not Reportable 09/23/20 04:36 Hyposegmented Neuts Not Reportable 09/23/20 04:36 Hypogranular Neuts Not Reportable 09/23/20 04:36 Smudge Cells Not Reportable 09/23/20 04:36 Toxic Granulation Not Reportable 09/23/20 04:36 Toxic Vacuolation Not Reportable 09/23/20 04:36 Dohle Bodies Not Reportable 09/23/20 04:36 Pelger-Huet Anomaly Not Reportable 09/23/20 04:36 Vinh Rods Not Reportable 09/23/20 04:36 Platelet Estimate Consistent w auto 09/23/20 04:36 Clumped Platelets Not Reportable 09/23/20 04:36 Plt Clumps, EDTA Not Reportable 09/23/20 04:36 Large Platelets Not Reportable 09/23/20 04:36 Giant Platelets Not Reportable 09/23/20 04:36 Platelet Satelliting Not Reportable 09/23/20 04:36 Plt Morphology Comment Not Reportable 09/23/20 04:36 RBC Morphology Not Reportable 09/23/20 04:36 Dimorphic RBCs Not Reportable 09/23/20 04:36 Polychromasia Not Reportable 09/23/20 04:36 Hypochromasia Not Reportable 09/23/20 04:36 Poikilocytosis Not Reportable 09/23/20 04:36 Anisocytosis 1+ 09/23/20 04:36 Microcytosis Not Reportable 09/23/20 04:36 Macrocytosis Not Reportable 09/23/20 04:36 Spherocytes Not Reportable 09/23/20 04:36 Pappenheimer Bodies Not Reportable 09/23/20 04:36 Sickle Cells Not Reportable 09/23/20 04:36 Target Cells Few 09/23/20 04:36 Tear Drop Cells Not Reportable 09/23/20 04:36 Ovalocytes Not Reportable 09/23/20 04:36 Helmet Cells Not Reportable 09/23/20 04:36 Lazo-Sartell Bodies Not Reportable 09/23/20 04:36 Bow Rings Not Reportable 09/23/20 04:36 [place] Cells Not Reportable 09/23/20 04:36 Bite Cells Not Reportable 09/23/20 04:36 Crenated Cell Not Reportable 09/23/20 04:36 Elliptocytes Not Reportable 09/23/20 04:36 Acanthocytes (Spur) Not Reportable 09/23/20 04:36 Rouleaux Not Reportable 09/23/20 04:36 Hemoglobin C Crystals Not Reportable 09/23/20 04:36 Schistocytes Not Reportable 09/23/20 04:36 Malaria parasites Not Reportable 09/23/20 04:36 Zachary Bodies Not Reportable 09/23/20 04:36 Hem Pathologist Commnt No 09/23/20 04:36 PT 15.7 Sec. (12.2-14.9) H 09/24/20 12:13 INR 1.27 (0.87-1.13) H 09/24/20 12:13 APTT 25.7 Sec. (24.2-36.6) 09/24/20 12:13 D-Dimer 1772.86 ng/mlDDU (0-234) H 09/24/20 05:00 Heparin Anti-Xa Level 0.10 U.I./ml (0.3-0.7) L 09/20/20 04:00 Heparin Anti-Xa, Unfract Negative (Negative) 09/22/20 15:12 ABG pH 7.508 (7.320-7.450) H 09/17/20 10:28 POC ABG pCO2 22.8 mmHg (32.0-48.0) L 09/17/20 10:28 POC ABG pO2 66.8 mmHg (83-108) L 09/17/20 10:28 POC ABG HCO3 17.7 09/17/20 10:28 ABG O2 Saturation 93.4 (0-100) 09/17/20 10:28 POC ABG Base Excess -3.5 09/17/20 10:28 ABG Hemoglobin 12.7 (12.0-17.5) 09/17/20 10:28 ABG Oxyhemoglobin 92.7 (94-98) L 09/17/20 10:28 ABG Methemoglobin 0.3 (0.0-1.5) 09/17/20 10:28 ABG Sodium 127.4 mmol/L (136.0-145.0) L 09/17/20 10:28 ABG Potassium 4.7 mmol/L (3.40-4.50) H 09/17/20 10:28 ABG Chloride 101.0 mmol/L (98-107) 09/17/20 10:28 ABG Glucose 121 mg/dL (65-95) H 09/17/20 10:28 Carboxyhemoglobin 0.4 (0.5-1.5) L 09/17/20 10:28 FiO2 % 21 09/17/20 10:28 Sodium 136 mmol/L (137-145) L 10/12/20 05:48 Potassium 3.7 mmol/L (3.6-5.0) 10/12/20 05:48 Chloride 101.7 mmol/L (98-107) 10/12/20 05:48 Carbon Dioxide 27 mmol/L (22-30) 10/12/20 05:48 Anion Gap 11 mmol/L 10/12/20 05:48 BUN 21 mg/dL (9-20) H 10/12/20 05:48 Creatinine 1.9 mg/dL (0.8-1.3) H 10/12/20 05:48 Estimated GFR 43 ml/min 10/12/20 05:48 BUN/Creatinine Ratio 11 % 10/12/20 05:48 Glucose 79 mg/dL (75-100) 10/12/20 05:48 POC Glucose 72 mg/dL (70-105) 09/30/20 11:45 Lactic Acid 1.00 mmol/L (0.7-2.0) 09/20/20 17:10 Calcium 8.4 mg/dL (8.4-10.2) 10/12/20 05:48 Phosphorus 2.90 mg/dL (2.5-4.5) 09/26/20 07:06 Magnesium 1.70 mg/dL (1.7-2.3) 09/26/20 07:06 Ferritin 1190.0 ng/mL (30.0-300.0) H 09/24/20 05:00 Total Bilirubin 0.80 mg/dL (0.1-1.2) 09/30/20 04:47 AST 14 units/L (5-40) 09/30/20 04:47 ALT 21 units/L (7-56) 09/30/20 04:47 Alkaline Phosphatase 81 units/L (35-129) 09/30/20 04:47 Lactate Dehydrogenase 276 units/L (91-180) H 09/24/20 05:00 Total Creatine Kinase 20 units/L (55-170) L 09/19/20 03:30 Troponin T < 0.010 ng/mL (0.00-0.029) 09/22/20 05:38 C-Reactive Protein 4.20 mg/dL (0.00-1.30) H 09/24/20 05:00 NT-Pro-B Natriuret Pep 98326 pg/mL (0-900) H 09/17/20 10:47 Serum Total Protein 5.5 g/dL (6.1-8.1) L 09/30/20 04:47 Total Protein 5.9 g/dL (6.3-8.2) L 09/30/20 04:47 Albumin 2.1 g/dL (3.8-4.8) L 09/30/20 04:47 Albumin 2.2 g/dL (3.9-5) L 09/30/20 04:47 Albumin/Globulin Ratio 0.6 % 09/30/20 04:47 Ifhut-9-Zkyaxdtjk 0.3 g/dL (0.2-0.3) 09/30/20 04:47 Mgohp-0-Lgfbjybkd 0.7 g/dL (0.5-0.9) 09/30/20 04:47 Beta Globulins 0.3 g/dL (0.2-0.5) 09/30/20 04:47 Gamma Globulins 1.7 g/dL (0.8-1.7) 09/30/20 04:47 Abnorm Protein Band 1 see below 09/30/20 04:47 PEP Interpretation see below 09/30/20 04:47 Triglycerides 137 mg/dL (2-149) 09/17/20 13:54 Cholesterol 48 mg/dL (50-199) L 09/17/20 13:54 LDL Cholesterol Direct 4 mg/dL (50-130) L 09/17/20 13:54 HDL Cholesterol 9 mg/dL (40-59) L 09/17/20 13:54 Cholesterol/HDL Ratio 5.33 % 09/17/20 13:54 Free PSA See scanned result 09/17/20 17:35 % Free PSA Calc See scanned result 09/17/20 17:35 Total PSA See scanned result 09/17/20 17:35 Serotonin Release Assay See scanned result 09/22/20 15:12 Procalcitonin 2.10 ng/mL (<0.15) 09/25/20 06:40 PTH Intact 161.4 pg/mL (15-65) H 09/19/20 03:30 Arterial Blood Glucose 121 mg/dL (65-95) H 09/17/20 10:28 Arterial Blood Ionized Calcium 5.0 mg/dL (4.6-5.3) 09/17/20 10:28 Urine Color Yellow (Yellow) 09/18/20 12:00 Urine Turbidity Cloudy (Clear) 09/18/20 12:00 Urine pH 5.0 (5.0-7.0) 09/18/20 12:00 Ur Specific Grant 1.009 (1.003-1.030) 09/18/20 12:00 Urine Protein 30 mg/dl mg/dL (Negative) 09/18/20 12:00 Urine Glucose (UA) Neg mg/dL (Negative) 09/18/20 12:00 Urine Ketones Neg mg/dL (Negative) 09/18/20 12:00 Urine Blood Sm (Negative) 09/18/20 12:00 Urine Nitrite Neg (Negative) 09/18/20 12:00 Urine Bilirubin Neg (Negative) 09/18/20 12:00 Urine Urobilinogen < 2.0 mg/dL (<2.0) 09/18/20 12:00 Ur Leukocyte Esterase Mod (Negative) 09/18/20 12:00 Urine WBC (Auto) 71.0 /HPF (0.0-6.0) H 09/18/20 12:00 Urine RBC (Auto) 2.0 /HPF (0.0-6.0) 09/18/20 12:00 U Epithel Cells (Auto) 1.0 /HPF (0-13.0) 09/18/20 12:00 Urine Bacteria (Auto) 4+ /HPF (Negative) 09/18/20 12:00 Urine WBC Clumps 2+ /HPF 09/18/20 12:00 Hyaline Casts 3 /LPF 09/18/20 12:00 Granular Casts 3 /LPF 09/18/20 12:00 Urine Mucus Few /HPF 09/18/20 12:00 Urine Eosinophils None seen (None Seen) 09/19/20 03:15 Urine Creatinine 61.0 mg/dL (0.1-20.0) H 09/18/20 12:00 Urine Sodium 62 mmol/L 09/18/20 12:00 Random Vancomycin 12.7 ug/mL (0-40.0) 09/19/20 03:30 Valproic Acid 17.8 ug/mL (50-100) L 10/03/20 08:12 Heparin-induced Plt Ab Weak positive (Negative) H 09/22/20 15:12 UF Heparin High Dose 0 % Release 09/22/20 15:12 COR[place]ON UFH Low Dose 0.1 0 % Release 09/22/20 15:12 [place] UFH Low Dose 0.5 0 % Release 09/22/20 15:12 Lymph Enumerat CD4/CD8 0.70 (0.86-5.00) L 09/19/20 13:35 % CD3 Cells 79 % (57-85) 09/19/20 13:35 Absolute CD3 Count 175 cells/uL (840-3060) L 09/19/20 13:35 % CD4 Cells 31 % (30-61) 09/19/20 13:35 Absolute CD4 Count 70 cells/uL (490-1740) L 09/19/20 13:35 % CD8 Cells 45 % (12-42) H 09/19/20 13:35 Absolute CD8 Count 101 cells/uL (180-1170) L 09/19/20 13:35 % CD19 Cells 12 % (6-29) 09/19/20 13:35 Absolute CD19 Count 26 cells/uL (110-660) L 09/19/20 13:35 C. difficile Tox (PCR) Negative (Negative) 10/09/20 15:15 Coronavirus (PCR) Positive (Negative) A 10/06/20 Unknown Hepatitis A IgM Ab Non-reactive (NonReactive) 09/20/20 17:10 Hep Bs Antigen Non-reactive (Negative) 09/20/20 17:10 Hep B Core IgM Ab Non-reactive (NonReactive) 09/20/20 17:10 Hepatitis C Antibody Non-reactive (NonReactive) 09/20/20 17:10 HIV-1 RNA PCR copies/ml 67 Copies/mL H 09/19/20 13:35 HIV-1 RNA (PCR) log 1.83 Log cps/mL H 09/19/20 13:35 Gardner/IV: Voiding Method Indwelling Catheter Active Medications - Current Medications Current Medications: Generic Name Dose Route Start Last Admin Trade Name Freq PRN Reason Stop Dose Admin Acetaminophen 650 mg 09/17/20 13:52 09/30/20 21:12 Acetaminophen 325 Mg Tab PO 650 mg Q4H PRN Administration Pain MILD(1-3)/Fever >100.5/ANGEL Albuterol 2.5 mg 09/17/20 13:52 09/17/20 20:47 Albuterol 2.5 Mg/3 Ml Nebu IH 2.5 mg Q4HRT PRN Administration Shortness Of Breath Amiodarone HCl 200 mg 10/01/20 22:00 10/12/20 10:16 Amiodarone 200 Mg Tab PO 200 mg BID EDIE Administration Lipase/Protease/Amylase 1 each 09/20/20 13:10 Lipase 10,500/Protease 25,000/Amylase 43,750 (Units) Dr Patrick FEEDTUBE PRN PRN For Clogged Feeding Tube Apixaban 5 mg 10/05/20 22:00 10/12/20 10:15 Apixaban 5 Mg Tab PO 5 mg Q12HR EDIE Administration Ascorbic Acid 500 mg 09/20/20 22:00 10/12/20 10:15 Ascorbic Acid 500 Mg Tab PO 500 mg BID EDIE Administration Cholecalciferol 1,000 unit 09/21/20 10:00 10/12/20 10:16 Cholecalciferol (Vit D3) 1000 Unit (25 Mcg) Tab PO 1,000 unit QDAY EDIE Administration Docusate Sodium 100 mg 10/05/20 11:00 10/12/20 10:17 Docusate Sodium 100 Mg/10 Ml Oral Liqd PO 100 mg BID EDIE Administration Emtricitabine 200 mg 09/30/20 11:00 10/10/20 10:14 Emtricitabine 200 Mg Cap PO 200 mg Q48H EDIE Administration Famotidine 20 mg 09/24/20 10:00 10/12/20 10:16 Famotidine 20 Mg Tab PO 20 mg DAILY EDIE Administration Haloperidol Lactate 5 mg 10/01/20 11:34 10/04/20 13:32 Haloperidol Lactate 5 Mg/1 Ml Inj IM 5 mg Q6H PRN Administration Agitation Sodium Chloride 1,000 mls @ 50 mls/hr 10/11/20 15:45 10/11/20 17:27 Nacl 0.9% 1000 Ml IV 50 mls/hr DIRECT EDIE Administration Metoprolol Tartrate 5 mg 09/19/20 19:06 09/24/20 10:59 Metoprolol Tartrate 5 Mg/5 Ml Inj IV 5 mg Q8HR PRN Administration HR > 135 Minute Metoprolol Tartrate 12.5 mg 10/05/20 14:00 10/11/20 22:24 Metoprolol Tartrate 25 Mg Tab PO Not Given TID EDIE Midodrine 10 mg 10/07/20 08:00 10/12/20 10:16 Midodrine 5 Mg Tab PO 10 mg TID@0800,1200,1600 EDIE Administration Ondansetron HCl 4 mg 09/17/20 13:52 Ondansetron 4 Mg/2 Ml Inj IV Q8H PRN Nausea And Vomiting Quetiapine Fumarate 12.5 mg 10/03/20 22:00 10/11/20 22:23 Quetiapine 25 Mg Tab PO 12.5 mg QHS EDIE Administration Quetiapine Fumarate 12.5 mg 10/04/20 10:00 10/12/20 10:18 Quetiapine 25 Mg Tab PO 12.5 mg QAM EDIE Administration Simple Syrup 15 ml 09/20/20 13:10 Simple Syrup 15 Ml FEEDTUBE PRN PRN Hypoglycemia Simple Syrup 30 ml 09/20/20 13:10 Simple Syrup 15 Ml FEEDTUBE PRN PRN Hypoglycemia Sodium Bicarbonate 325 mg 09/20/20 13:10 Sodium Bicarbonate 325 Mg Tab FEEDTUBE PRN PRN For Clogged Feeding Tube Sodium Chloride 10 ml 09/17/20 22:00 10/11/20 22:24 Sodium Chloride 0.9% 10 Ml Flush Syringe IV 10 ml BID EDIE Administration Sodium Chloride 10 ml 09/17/20 13:52 10/12/20 10:19 Sodium Chloride 0.9% 10 Ml Flush Syringe IV 10 ml PRN PRN Administration LINE FLUSH Tamsulosin HCl 0.4 mg 10/07/20 13:00 10/12/20 10:16 Tamsulosin 0.4 Mg Cap PO 0.4 mg QDAY EDIE Administration Tenofovir Disoproxil Fumarate 300 mg 09/30/20 11:00 10/10/20 11:10 Tenofovir 300 Mg Tab PO 300 mg Q48H EDIE Administration Valproic Acid 250 mg 10/03/20 22:00 10/11/20 22:22 Valproic Acid 250 Mg Cap PO 250 mg BID EDIE Administration Zinc Sulfate 220 mg 09/21/20 10:00 10/12/20 10:15 Zinc Sulfate 220 Mg Cap PO 220 mg QDAY EDIE Administration Nutrition/Malnutrition Assess - Dietary Evaluation Nutrition/Malnutrition Findings: Nutrition Notes Start: 09/18/20 11:30 Freq: Status: Active Protocol: Document 10/08/20 11:36 AL (Rec: 10/08/20 11:47 AL [id number]) Co-Sign 10/08/20 11:36 LP Nutrition Notes Initial or Follow up Reassessment Current Diagnosis Acute Kidney Injury,Sepsis, Hypertension,Heart Failure, Respiratory Failure Other Pertinent Diagnosis COVID-19 (+), AMS, UTI, afib with RVR, HIV (+) Current Diet Pureed Renal Labs/Tests BUN 28 Cr 2.2 Pertinent Medications Colace Height 6 ft 1 in Weight 88.6 kg [place] Body Weight (kg) 83.63 BMI 25.7 Weight Status Overweight Subjective/Other Information F/U for intakes and ONS tolerance. Pt tolerateing pureed diet at about 60% and ONS at 50% (1 shake). Percent of energy/protein needs met: 83%/90% Burn Absent Trauma Absent GI Symptoms Constipation Current % PO Good (75-100%) Minimum of two criteria No Reduced Wreath Machine Tender Strength Measurably Reduced (severe) #2 Nutrition Diagnosis Inadequate oral intake As Evidenced by Signs and Symptoms pt meeting 83%/90% of estimated energy/protein needs PO Diagnosis Progress(for reassessment Improved documentation) Is patient on ventilator? No Is Patient Ambulatory and/or Out of Bed No REE-([facility]-confined to bed) 2044.508 Calculation Used for Recommendations [facility] Additional Notes Pro needs: 73 - 88g (1 - 1.2 g /kg 73kg) Fluid needs 1-1.5L/day Nutrition Intervention Change Diet Order: Continue pureed renal diet Add Supplement/Snack (indicate name/kcal Nepro BID /protein ) Provides kCal: 850 Provides Protein (gm) 38 Goal #1 Meet at least 75% of estimated kcal and protein needs via PO Goal #2 Weight maintenance/weight gain Anticipated Discharge Needs: Pureed Renal Diet Follow-Up By: 10/13/20 Additional Comments F/U for stable intakes and ONS tolerance.
[2020-10-12] MEDS: TENOFOVIR 300 MG TAB PO SCH (11:43)
[2020-10-12] MEDS: EMTRICITABINE 200 MG CAP PO SCH (11:43)
[2020-10-12] MEDS: DOLUTEGRAVIR 50 MG TAB PO SCH (11:43)
[2020-10-12] MEDS: VALPROIC ACID 250 MG CAP PO SCH ×2 (11:43→22:21)
[2020-10-12] MEDS: METOPROLOL TARTRATE 25 MG TAB PO SCH ×3 (11:45→22:21)
[2020-10-12 14:39] LABS: Hematocrit 23.5 % (35.5-45.6); Hemoglobin 8.1 gm/dl (11.8-15.2); Mean Corpuscular HGB Conc 35 % (32-34); Mean Corpuscular Volume 97 fl (84-94); Platelet Count 192 K/mm3 (140-440); Red Blood Count 2.42 M/mm3 (3.65-5.03); Red Cell Distribution Width 16.1 % (13.2-15.2)
[2020-10-12 15:34] LABS: Total Cells Counted 100
[2020-10-12 15:37] LABS: Platelet Estimate Consistent w Auto; RBC Morphology Normal
[2020-10-13 07:00] LABS: Calcium 8.4 mg/dL (8.4-10.2)
[2020-10-13] MEDS: MIDODRINE 5 MG TAB PO SCH ×3 (08:41→18:15)
[2020-10-13] MEDS: METOPROLOL TARTRATE 25 MG TAB PO SCH ×3 (08:42→21:20)
--- NOTE | 2020-10-13 10:21 | Progress Note ---
Assessment and Plan 1. Acute kidney injury: Vasomotor LOLI in the setting of shock. ATN likely. Renal US negative for hydro. Multiple bladder scan negative. Patient required hemodialysis due to significant decline in the renal function. Hemodialysis: 09/20, 09/21, 09/25. Monitor renal function. Creatinine level slowly improving. Gentle IV fluids. Avoid nephrotoxic agents. Meds dosage based on GFR. 2. FEN: Hyperkalemia, improved. Metabolic acidosis, improved, monitor. Monitor volume status and lytes. 3. Acute hypoxic respiratory failure: Covid test positive. Supplemental O2 as needed. 4. Acute CHF: Echocardiogram: EF 40-45%. Appears compensated now. Monitor. 5. Atrial fibrillation with RVR: On Amio and Metoprolol. Followed by Cards. 6. Elevated troponin: Followed by Cards. 7. Coagulopathy: Trend. 8. Shock / Hypotension: Multifactorial, monitor. Off pressors. 9. Elevated Transaminases: Improved. 10. Metabolic encephalopathy: Monitor. 11. HIV. 12. Anemia, POA: Monitor. Subjective: Patient was seen and examined at the bedside. Doing ok. Objective: General appearance: well-developed, appears stated age, appears emaciated, not in distress HEENT: ATNC, L pupil dilated Neck: trachea midline Respiratory: bilateral diminished breath sounds Heart: S1S2, irregular, no murmur Abdomen: soft, normoactive bowel sounds, not tender Integumentary: no obvious rash Ext: no edema Neurologic: alert, conversing, moving extremities Subjective Date of service: 10/13/20 Principal diagnosis: Acute Hypoxemic Resp Failure; COVID-19 infxn; Septic Shock; A-Fib with RVR Objective - Vital Signs Vital signs: Vital Signs - 12hr 10/12/20 10/13/20 10/13/20 22:32 05:24 08:42 Temperature 99.1 F 98.2 F Pulse Rate 111 H 97 H 97 H Respiratory 18 18 Rate Blood Pressure 108/80 99/63 99/69 O2 Sat by Pulse 98 97 Oximetry - Lab 10/12/20 13:42 10/13/20 06:35 Most recent lab results ABG pH 7.508 (7.320-7.450) H 09/17/20 10:28 ABG O2 Saturation 93.4 (0-100) 09/17/20 10:28 Calcium 8.4 mg/dL (8.4-10.2) 10/13/20 06:35 Phosphorus 2.90 mg/dL (2.5-4.5) 09/26/20 07:06 Magnesium 1.70 mg/dL (1.7-2.3) 09/26/20 07:06 Urine Creatinine 61.0 mg/dL (0.1-20.0) H 09/18/20 12:00 Urine Sodium 62 mmol/L 09/18/20 12:00 Medications & Allergies - Medications Allergies/Adverse Reactions: Allergies heparin Adverse Reaction (Verified 09/29/20 16:33) thrombocytopenia PF4 Home Medications: Home Medications Medication Instructions Recorded Confirmed Last Taken Type AtorvaSTATin [Lipitor] 20 mg PO QHS 09/18/20 09/18/20 Unknown History Dolutegravir [Tivicay] 50 mg PO DAILY 09/18/20 09/18/20 Unknown History Emtricitabine/Tenofov Alafenam 1 tab PO DAILY 09/18/20 09/18/20 Unknown History [Descovy 200-25 mg (Nf)] allopurinoL [Zyloprim] 300 mg PO QDAY 09/18/20 09/18/20 Unknown History Amiodarone [Cordarone 200 MG TAB] 200 mg PO DAILY #60 tablet 10/01/20 Unknown Rx Apixaban [Eliquis] 2.5 mg PO Q12HR #60 tablet 10/01/20 Unknown Rx Ascorbic Acid [Vitamin C] 500 mg PO BID #60 tablet 10/01/20 Unknown Rx Cholecalciferol Vit D3 [Vitamin D3 1,000 unit PO QDAY #30 tablet 10/01/20 Unknown Rx 1,000 UNIT TAB] Famotidine [Pepcid] 20 mg PO DAILY #30 tablet 10/01/20 Unknown Rx Midodrine [Proamatine] 5 mg PO TID@0800,1200,1600 #90 10/01/20 Unknown Rx tablet QUEtiapine [SEROquel] 25 mg PO BID #30 tablet 10/01/20 Unknown Rx Zinc Sulfate 220 mg PO QDAY #30 capsule 10/01/20 Unknown Rx carvediloL [Coreg] 3.125 mg PO BID #60 tablet 10/01/20 Unknown Rx haloperidoL [Haldol] 2 mg PO Q8H PRN #30 tablet 10/01/20 Unknown Rx Active Medications: Generic Name Dose Route Start Last Admin Trade Name Freq PRN Reason Stop Dose Admin Acetaminophen 650 mg 09/17/20 13:52 09/30/20 21:12 Acetaminophen 325 Mg Tab PO 650 mg Q4H PRN Administration Pain MILD(1-3)/Fever >100.5/ANGEL Albuterol 2.5 mg 09/17/20 13:52 09/17/20 20:47 Albuterol 2.5 Mg/3 Ml Nebu IH 2.5 mg Q4HRT PRN Administration Shortness Of Breath Amiodarone HCl 200 mg 10/01/20 22:00 10/12/20 22:21 Amiodarone 200 Mg Tab PO 200 mg BID EDIE Administration Lipase/Protease/Amylase 1 each 09/20/20 13:10 Lipase 10,500/Protease 25,000/Amylase 43,750 (Units) Dr Patrick FEEDTUBE PRN PRN For Clogged Feeding Tube Apixaban 5 mg 10/05/20 22:00 10/12/20 22:20 Apixaban 5 Mg Tab PO 5 mg Q12HR EDIE Administration Ascorbic Acid 500 mg 09/20/20 22:00 10/12/20 22:19 Ascorbic Acid 500 Mg Tab PO 500 mg BID EDIE Administration Cholecalciferol 1,000 unit 09/21/20 10:00 10/12/20 10:16 Cholecalciferol (Vit D3) 1000 Unit (25 Mcg) Tab PO 1,000 unit QDAY EDIE Administration Docusate Sodium 100 mg 10/05/20 11:00 10/12/20 22:21 Docusate Sodium 100 Mg/10 Ml Oral Liqd PO 100 mg BID EDIE Administration Emtricitabine 200 mg 09/30/20 11:00 10/12/20 11:43 Emtricitabine 200 Mg Cap PO 200 mg Q48H EDIE Administration Famotidine 20 mg 09/24/20 10:00 10/12/20 10:16 Famotidine 20 Mg Tab PO 20 mg DAILY EDIE Administration Haloperidol Lactate 5 mg 10/01/20 11:34 10/04/20 13:32 Haloperidol Lactate 5 Mg/1 Ml Inj IM 5 mg Q6H PRN Administration Agitation Sodium Chloride 1,000 mls @ 50 mls/hr 10/11/20 15:45 10/11/20 17:27 Nacl 0.9% 1000 Ml IV 50 mls/hr DIRECT EDIE Administration Metoprolol Tartrate 5 mg 09/19/20 19:06 09/24/20 10:59 Metoprolol Tartrate 5 Mg/5 Ml Inj IV 5 mg Q8HR PRN Administration HR > 135 Minute Metoprolol Tartrate 12.5 mg 10/05/20 14:00 10/13/20 08:42 Metoprolol Tartrate 25 Mg Tab PO 12.5 mg TID EDIE Administration Midodrine 10 mg 10/07/20 08:00 10/13/20 08:41 Midodrine 5 Mg Tab PO 10 mg TID@0800,1200,1600 EDIE Administration Ondansetron HCl 4 mg 09/17/20 13:52 Ondansetron 4 Mg/2 Ml Inj IV Q8H PRN Nausea And Vomiting Quetiapine Fumarate 12.5 mg 10/03/20 22:00 10/12/20 22:20 Quetiapine 25 Mg Tab PO 12.5 mg QHS EDIE Administration Quetiapine Fumarate 12.5 mg 10/04/20 10:00 10/12/20 10:18 Quetiapine 25 Mg Tab PO 12.5 mg QAM EDIE Administration Simple Syrup 15 ml 09/20/20 13:10 Simple Syrup 15 Ml FEEDTUBE PRN PRN Hypoglycemia Simple Syrup 30 ml 09/20/20 13:10 Simple Syrup 15 Ml FEEDTUBE PRN PRN Hypoglycemia Sodium Bicarbonate 325 mg 09/20/20 13:10 Sodium Bicarbonate 325 Mg Tab FEEDTUBE PRN PRN For Clogged Feeding Tube Sodium Chloride 10 ml 09/17/20 22:00 10/12/20 22:00 Sodium Chloride 0.9% 10 Ml Flush Syringe IV Not Given BID EDIE Sodium Chloride 10 ml 09/17/20 13:52 10/12/20 10:19 Sodium Chloride 0.9% 10 Ml Flush Syringe IV 10 ml PRN PRN Administration LINE FLUSH Tamsulosin HCl 0.4 mg 10/07/20 13:00 10/12/20 10:16 Tamsulosin 0.4 Mg Cap PO 0.4 mg QDAY EDIE Administration Tenofovir Disoproxil Fumarate 300 mg 09/30/20 11:00 10/12/20 11:43 Tenofovir 300 Mg Tab PO 300 mg Q48H EDIE Administration Valproic Acid 250 mg 10/03/20 22:00 10/12/20 22:21 Valproic Acid 250 Mg Cap PO 250 mg BID EDIE Administration Zinc Sulfate 220 mg 09/21/20 10:00 10/12/20 10:15 Zinc Sulfate 220 Mg Cap PO 220 mg QDAY EDIE Administration
--- NOTE | 2020-10-13 10:30 | Progress Note ---
Assessment and Plan Assessment and plan: This is 70-year-old male with HIV, HTN, and atrial fibrillation (currently on therapeutic anticoagulation with Xarelto) presents the emergency department on 09/17 with complaints of shortness of breath over the past 3 days and on arrival of EMS patient was found to have a pulse oximetry of 85% on room air. He was placed on supplemental oxygenation. Of note patient was admitted on 09/15 with similar complaints and found to have A. fib with RVR, hyponatremia, hypomagnesemia and acute kidney injury and left AMA. He was admitted to the hospital service with atrial fibrillation with RVR, SIRs, metabolic acidosis, acute kidney injury, acute hypoxic respiratory failure, hypotension, and CHF . Cardiology, CCM and nephrology were consulted. 09/18/2020. Await echocardiogram to assess for diastolic versus systolic etiology. Patient with elevated BNP greater than 18,000. Patient apparently was admitted approximately 3 days ago but left AMA. Cardiology consulted for heart failure, A. fib with RVR and elevated troponin. Patient denies chest pain. Also, patient with elevated creatinine of 4.7 with creatinine 2.8 on recent admission. We do not have a previous creatinine as a baseline to compar e. Nephrology consultation pending. Follow-up renal ultrasound. Patient with coagulopathy and INR 3.04. Unsure if patient was on anticoagulation for A. fib. 09/19/2020. Patient likely with vasomotor acute kidney injury in the setting of shock. Follow-up urine studies and renal ultrasound. Creatinine continues to worsen. Nephrology following. Etiology of respiratory failure secondary to hea rt failure with Covid testing pending. Elevated troponin suggestive of NSTEMI. Continue diuresis with Lasix. Continue IV amiodarone for rate control of A. fib with RVR. Continue heparin. Follow-up echocardiogram. Cardiology following. 09/20/2020: This time my examination patient was on BiPAP therapy and now is on nasal cannula. Patient remains on amiodarone drip with heart rate in the 130s t o 140s and vasopressor support with Levophed. Today nephrology will initiate hemodialysis given worsening renal function studies and has stopped diuresis with Lasix. ID resumed antiretroviral therapy and ordered a HIDA scan. Today the patient received a temporary Vas-Cath and is COVID-19 PCR resulted as positive. Patient will be started on vitamin C, vitamin D and zinc and dexamethasone given need for supplemental oxygenation. 09/21: Ecoli UTI and bacteremia and ID has changed him to meropenem, Patient received HD yesterday and patient remains on amiodarone drip. He is off the floor to obtain a HIDA scan. 09/22: HIDA scan did not show acute cholecystitis. Ecoli bacteremia is sensitive to ceftriaxone and ID changed his abx. Mentation is better. BP is liable. Remains on levophed and vasopressin. We started midodrine. HIT panel pending and hem/onc consulted. 09/23: Patient noted to have unequal pupils with left >right, STAT CT head ordered. Nephro will withhold hemodialysis and assess needs as kidney function has gotten better. Patient symptomatically follows commands and is on nasal cannula. Cardiology stopped his Eliquis due to persistent thrombocytopenia. 09/24: Patient remains confused, pupils still unequal. Started on eliquis 2.5 today and he will be transferred to IMCU. 09/25: Patient remains confused, had Bipap overnight, CT abd/pelvis ordered per ID recommendations given persistent leukocytosis. Cr remains unchanged but BUN in rising. Nephrology is on the case. 09/26/2020; patient was confused and on 3 L of oxygen. ID is following the patient and continue with antiretroviral medications, no OI prophylaxis needed. Patient is on IV Rocephin lasted 09/28 per ID recommendation for E. coli bacteremia. ID ordered CT abdomen and pelvis. We will follow the results. Sulaiman wild is being followed by cardiology and they recommend to resume Eliquis with 2.5 mg p.o. twice daily, thrombocytopenia is improving. Patient is on amiodarone and metoprolol. Patient is being followed by nephrology and is on dialysis. Blood pressure was normal this morning. Patient was tachycardic in A. fib with RVR. CT head was normal. Prognosis is guarded. Continue IMCU care. 09/27: Continue IMCU care, still with unresolved Afib, will continue to adjust medications for better control. 09/28: Start Seroquel DUE TO THE AGITATION, Discussed with daughter, will work on getting Afib better controlled. Per daughter the confusion is new, although some improvement noted today. Patient will benefit from SNF 09/29: Seroquel started today as it was not started yesterday, await PT/OT, Continue to monitor mental status, will transfer to Tele. Anticipate discharge when bed available. 09/30: Discussed extensively with the daughter about her clinical condition, Seroquel discontinued as patient did not tolerate, still with low BP responded to Fluids. Hold BB and continue to monitor and redirect. Discussed with Nursing staff. 10/01: Patient seen and examined resting comfortably still with intermittent delirium. Blood pressure has improved although beta-ruddy was held midodrine was given. Will change to Coreg 3.125 with holding parameters on discharge. Per cardiology amiodarone changed to 200 mg daily. Neurology evaluation is still pending. I have initiated placement to a SNF facility and once approved patient can be discharged. Daughter has been updated on medical condition. For now on anticoagulation left in place although outpatient this may be discontinued due to patient's mental status if there is no improvement. 10/02: Neurology evaluated the patient for increased agitation and aggressive behavior and confusion. Exam suggestive of delirium stopped. Due to not tolerating Seroquel, now Geodon trial Haldol however recommended also valproic acid. No overnight issues reported. Continue awaiting SNF placement for continued rehab. Blood pressure has remained stable no further fever recorded. Monitor for any recurrence of the pain in the leg. 10/03: I have asked for a sitter a few days ago unfortunately not as available as a result restraints have been used and reassurances. Will decrease Seroquel to 12.5 twice daily as patient did not tolerate the 25 mg. Continue supportive care blood pressure meds held due to hypotension. Delirium still present delirium preventive methods including keeping the lights on through the night windows shades up discussed with nursing staff. Also discussed with neurologist. 10/04: 70-year-old male admitted to the hospital with hypoxic respiratory failure history of Covid. During hospitalization developed A. fib with RVR status metabolic acidosis and acute kidney injury. Has also been exhibiting some delirium was managed in the ICU and IMCU and subsequently is awaiting placement. He was seen by neurologist delirium of diagnosis secondary to metabolic issues. Seroquel was started initially at 25 mg p.o. twice daily but patient developed hypotension now better improved BP, Continue seroquel 12.5mg po BID seems to have good improvement in mental status. awaiting labs due to noted hyperkalemia yesterday. Repeat covud test for placement. 10/05/2020; patient is pending for placement. Repeat Covid test is negative. Blood pressure is within normal limit. Patient is confused. 10/06/2020; repeat Covid test is negative. Patient is confused. Patient last dialysis was on 09/25, renal function is stable, no need dialysis, nephrology is following. 10/07/2020; Covid test was done yesterday and was positive. Renal function is improving and nephrology is following at this time. Last dialysis was on 09/25. Patient is pending placement. Mental health consulted for confusion. 10/08/2020; patient was calm and cooperative. Patient was on condom cath. Patient was oriented only to self. 10/09/2020; patient was calm and cooperative. Patient was oriented only to self. Renal function is improving. Patient is pending placement. 10/10/2020; pending SNF placement. Patient is stable for discharge. 10/11: Continue supportive care. Awaiting placement. This morning was still confused ambulating saying that he was leaving. No worsening respiratory status noted. Safety precautions and fall precautions discussed extensively with nursing staff 10/12: Continue supportive care, discontinue Gardner Following irrigation. We will check a CBC to ensure no further decreasing H&H. Continue current management patient tolerating diet and completing 100% of his meal per staff. Altered mental status is significantly improved. 10/13: Gardner was discontinued yesterday patient had to be straight cath we will continue to monitor if required repeat straight catheter pulled back Gardner. Blood pressure still low. Outpatient follow-up with urology strongly recommended due to presumed urinary retention although no hydronephrosis is noted. Continue awaiting placement. H&H is stable. Septic Shock Acute hypoxemic respiratory failure 2/2 to volume overload/chf exacerbation Acute systolic heart failure exacerbation Atrial fibrillation with RVR Hematuria Acute on chronic kidney injury Hypotension Anemia Thrombocytopenia E coli bacteremia E. coli urinary tract infection NSTEMI Elevated Ddimer Leukocytosis HIV, asymptomatic HTN Coagulopathy Transaminitis -Cardiology, CCM, Nephrology, ID, general surgery, heme/onc consulted, appreciate recommendations -09/20 COVID-19 PCR positive -Droplet/isolation precautions -Dexamethasone 6 mg p.o. (09/20-09/30) -Vitamin D, vitamin C, zinc -Vasopressor support with levophed and vasopressin, midodrine -4/30 CXR shows borderline heart size, mild central pulmonary venous congestion -09/17 renal ultrasound shows no acute findings -09/18 echocardiogram shows left ventricle systolic function mildly decreased, LVEF of 40 to 45% with mild concentric left ventricle hypertrophy, trace MR, mild TR, trace OR -09/19 abdominal ultrasound shows large gallstone within the gallbladder, no pericholecystic fluid, gallbladder wall upper limits of normal measuring 3 mm -09/21 HIDA scan shows no evidence of acute cholecystitis -09/21 BLE Dopplar US no evidence for DVT -09/23 CT head shows no acute intracranial hemorrhage or parenchymal abnormality, mild diffuse brain atrophy with commensurate ventricular enlargement which is likely age appropriate, small frontal scalp lipoma measuring 9 mm in thickness, 4 cm in length, and 4 cm in width., Sinuses and mastoid air cells are clear. -09/17 proBNP 04572 -S/p IV Lasix twice daily -09/20 nephrology initiated the patient on dialysis -Pulmonary hygiene -Bipap qhs -09/25 CT abd/pelvis without contrast pending -PO amiodarone -HIV meds per ID -IV abx therapy -HIT pending -Trend CBC, BMP, LFTs DVT/GI prophylaxis: PPI, SCDs to bilateral lower extremities while in bed, no chemical anticoagulation at this time d/t thrombocytopenia Disposition: IMCU History Interval history: This is 70-year-old male with HIV, HTN, and atrial fibrillation (currently on therapeutic anticoagulation with Xarelto) admitted with atrial fibrillation with RVR, SIRs, metabolic acidosis, acute kidney injury, acute hypoxic respiratory failure, hypotension, and CHF Patient seen and examined, clinical improving. No adverse event by nursing staff. Hospitalist Physical - Physical exam Narrative exam: Resting comfortably The patient appeared well nourished and normally developed. Vital signs as documented. Head exam is unremarkable. No scleral icterus . Neck is without jugular venous distension, thyromegaly, or carotid bruits. Lungs are clear to auscultation. Cardiac exam reveals regular rate and Rhythm. Abdominal exam reveals normal bowel sounds, nontender, no organomegaly. Extremities are nonedematous and both femoral and pedal pulses are normal. IRRIGATION TECHNICIAN: Alert awake oriented x2 no focal deficit noted, per nursing staff still with intermittent delirium - Constitutional Vitals: Temp Pulse Resp BP Pulse Ox 98.2 F 97 H 18 99/69 97 10/13/20 05:24 10/13/20 08:42 10/13/20 05:24 10/13/20 08:42 10/13/20 05:24 General appearance: Present: no acute distress HEART Score - HEART Score Troponin: Troponin T < 0.010 ng/mL (0.00-0.029) 09/22/20 05:38 Results - Labs CBC & Chem 7: 10/12/20 13:42 10/13/20 06:35 Labs: Laboratory Last Values WBC 5.2 K/mm3 (4.5-11.0) 10/12/20 13:42 RBC 2.42 M/mm3 (3.65-5.03) L 10/12/20 13:42 Hgb 8.1 gm/dl (11.8-15.2) L 10/12/20 13:42 Hct 23.5 % (35.5-45.6) L 10/12/20 13:42 MCV 97 fl (84-94) H 10/12/20 13:42 MCH 34 pg (28-32) H 10/12/20 13:42 MCHC 35 % (32-34) H 10/12/20 13:42 RDW 16.1 % (13.2-15.2) H 10/12/20 13:42 Plt Count 192 K/mm3 (140-440) 10/12/20 13:42 Lymph % (Auto) 4.3 % (13.4-35.0) L 09/27/20 04:00 [place] % (Auto) Slip Caster 10/12/20 13:42 Eos % (Auto) 0.1 % (0.0-4.3) 09/27/20 04:00 Baso % (Auto) 0.0 % (0.0-1.8) 09/27/20 04:00 Lymph # (Auto) 0.6 K/mm3 (1.2-5.4) L 09/27/20 04:00 [place] # (Auto) 0.9 K/mm3 (0.0-0.8) H 09/27/20 04:00 Eos # (Auto) 0.0 K/mm3 (0.0-0.4) 09/27/20 04:00 Baso # (Auto) 0.0 K/mm3 (0.0-0.1) 09/27/20 04:00 Add Manual Diff Complete 10/12/20 13:42 Total Counted 100 10/12/20 13:42 Seg Neutrophils % 89.6 % (40.0-70.0) H 09/27/20 04:00 Seg Neuts % (Manual) 69.0 % (40.0-70.0) 10/12/20 13:42 Band Neutrophils % 2.0 % 09/23/20 04:36 Lymphocytes % (Manual) 21.0 % (13.4-35.0) 10/12/20 13:42 Monocytes % (Manual) 6.0 % (0.0-7.3) 10/12/20 13:42 Eosinophils % (Manual) 3.0 % (0.0-4.3) 10/12/20 13:42 Basophils % (Manual) 1.0 % (0.0-1.8) 10/12/20 13:42 Nucleated RBC % Not Reportable 10/12/20 13:42 Seg Neutrophils # 13.1 K/mm3 (1.8-7.7) H 09/27/20 04:00 Seg Neutrophils # Man 3.6 K/mm3 (1.8-7.7) 10/12/20 13:42 Band Neutrophils # 0.0 K/mm3 10/12/20 13:42 Abs Lymphs (Manual) 223 cells/uL (850-3900) L 09/19/20 13:35 Lymphocytes # (Manual) 1.1 K/mm3 (1.2-5.4) L 10/12/20 13:42 Abs React Lymphs (Man) 0.0 K/mm3 10/12/20 13:42 Monocytes # (Manual) 0.3 K/mm3 (0.0-0.8) 10/12/20 13:42 Eosinophils # (Manual) 0.2 K/mm3 (0.0-0.4) 10/12/20 13:42 Basophils # (Manual) 0.1 K/mm3 (0.0-0.1) 10/12/20 13:42 Metamyelocytes # 0.0 K/mm3 10/12/20 13:42 Myelocytes # 0.0 K/mm3 10/12/20 13:42 Promyelocytes # 0.0 K/mm3 10/12/20 13:42 Blast Cells # 0.0 K/mm3 10/12/20 13:42 WBC Morphology Not Reportable 10/12/20 13:42 Hypersegmented Neuts Not Reportable 10/12/20 13:42 Hyposegmented Neuts Not Reportable 10/12/20 13:42 Hypogranular Neuts Not Reportable 10/12/20 13:42 Smudge Cells Not Reportable 10/12/20 13:42 Toxic Granulation Not Reportable 10/12/20 13:42 Toxic Vacuolation Not Reportable 10/12/20 13:42 Dohle Bodies Not Reportable 10/12/20 13:42 Pelger-Huet Anomaly Not Reportable 10/12/20 13:42 Vinh Rods Not Reportable 10/12/20 13:42 Platelet Estimate Consistent w auto 10/12/20 13:42 Clumped Platelets Not Reportable 10/12/20 13:42 Plt Clumps, EDTA Not Reportable 10/12/20 13:42 Large Platelets Not Reportable 10/12/20 13:42 Giant Platelets Not Reportable 10/12/20 13:42 Platelet Satelliting Not Reportable 10/12/20 13:42 Plt Morphology Comment Not Reportable 10/12/20 13:42 RBC Morphology Normal 10/12/20 13:42 Dimorphic RBCs Not Reportable 10/12/20 13:42 Polychromasia Not Reportable 10/12/20 13:42 Hypochromasia Not Reportable 10/12/20 13:42 Poikilocytosis Not Reportable 10/12/20 13:42 Anisocytosis Not Reportable 10/12/20 13:42 Microcytosis Not Reportable 10/12/20 13:42 Macrocytosis Not Reportable 10/12/20 13:42 Spherocytes Not Reportable 10/12/20 13:42 Pappenheimer Bodies Not Reportable 10/12/20 13:42 Sickle Cells Not Reportable 10/12/20 13:42 Target Cells Not Reportable 10/12/20 13:42 Tear Drop Cells Not Reportable 10/12/20 13:42 Ovalocytes Not Reportable 10/12/20 13:42 Helmet Cells Not Reportable 10/12/20 13:42 [place] Bodies Not Reportable 10/12/20 13:42 [place] Rings Not Reportable 10/12/20 13:42 [place] Cells Not Reportable 10/12/20 13:42 Bite Cells Not Reportable 10/12/20 13:42 Crenated Cell Not Reportable 10/12/20 13:42 Elliptocytes Not Reportable 10/12/20 13:42 Acanthocytes (Spur) Not Reportable 10/12/20 13:42 Rouleaux Not Reportable 10/12/20 13:42 Hemoglobin C Crystals Not Reportable 10/12/20 13:42 Schistocytes Not Reportable 10/12/20 13:42 Malaria parasites Not Reportable 10/12/20 13:42 Zachary Bodies Not Reportable 10/12/20 13:42 Hem Pathologist Commnt No 10/12/20 13:42 PT 15.7 Sec. (12.2-14.9) H 09/24/20 12:13 INR 1.27 (0.87-1.13) H 09/24/20 12:13 APTT 25.7 Sec. (24.2-36.6) 09/24/20 12:13 D-Dimer 1772.86 ng/mlDDU (0-234) H 09/24/20 05:00 Heparin Anti-Xa Level 0.10 U.I./ml (0.3-0.7) L 09/20/20 04:00 Heparin Anti-Xa, Unfract Negative (Negative) 09/22/20 15:12 ABG pH 7.508 (7.320-7.450) H 09/17/20 10:28 POC ABG pCO2 22.8 mmHg (32.0-48.0) L 09/17/20 10:28 POC ABG pO2 66.8 mmHg (83-108) L 09/17/20 10:28 POC ABG HCO3 17.7 09/17/20 10:28 ABG O2 Saturation 93.4 (0-100) 09/17/20 10:28 POC ABG Base Excess -3.5 09/17/20 10:28 ABG Hemoglobin 12.7 (12.0-17.5) 09/17/20 10:28 ABG Oxyhemoglobin 92.7 (94-98) L 09/17/20 10:28 ABG Methemoglobin 0.3 (0.0-1.5) 09/17/20 10:28 ABG Sodium 127.4 mmol/L (136.0-145.0) L 09/17/20 10:28 ABG Potassium 4.7 mmol/L (3.40-4.50) H 09/17/20 10:28 ABG Chloride 101.0 mmol/L (98-107) 09/17/20 10:28 ABG Glucose 121 mg/dL (65-95) H 09/17/20 10:28 Carboxyhemoglobin 0.4 (0.5-1.5) L 09/17/20 10:28 FiO2 % 21 09/17/20 10:28 Sodium 135 mmol/L (137-145) L 10/13/20 06:35 Potassium 3.7 mmol/L (3.6-5.0) 10/13/20 06:35 Chloride 99.5 mmol/L (98-107) 10/13/20 06:35 Carbon Dioxide 29 mmol/L (22-30) 10/13/20 06:35 Anion Gap 10 mmol/L 10/13/20 06:35 BUN 22 mg/dL (9-20) H 10/13/20 06:35 Creatinine 1.8 mg/dL (0.8-1.3) H 10/13/20 06:35 Estimated GFR 45 ml/min 10/13/20 06:35 BUN/Creatinine Ratio 12 % 10/13/20 06:35 Glucose 88 mg/dL (75-100) 10/13/20 06:35 POC Glucose 103 mg/dL (70-105) 10/12/20 22:33 Lactic Acid 1.00 mmol/L (0.7-2.0) 09/20/20 17:10 Calcium 8.4 mg/dL (8.4-10.2) 10/13/20 06:35 Phosphorus 2.90 mg/dL (2.5-4.5) 09/26/20 07:06 Magnesium 1.70 mg/dL (1.7-2.3) 09/26/20 07:06 Ferritin 1190.0 ng/mL (30.0-300.0) H 09/24/20 05:00 Total Bilirubin 0.80 mg/dL (0.1-1.2) 09/30/20 04:47 AST 14 units/L (5-40) 09/30/20 04:47 ALT 21 units/L (7-56) 09/30/20 04:47 Alkaline Phosphatase 81 units/L (35-129) 09/30/20 04:47 Lactate Dehydrogenase 276 units/L (91-180) H 09/24/20 05:00 Total Creatine Kinase 20 units/L (55-170) L 09/19/20 03:30 Troponin T < 0.010 ng/mL (0.00-0.029) 09/22/20 05:38 C-Reactive Protein 4.20 mg/dL (0.00-1.30) H 09/24/20 05:00 NT-Pro-B Natriuret Pep 72484 pg/mL (0-900) H 09/17/20 10:47 Serum Total Protein 5.5 g/dL (6.1-8.1) L 09/30/20 04:47 Total Protein 5.9 g/dL (6.3-8.2) L 09/30/20 04:47 Albumin 2.1 g/dL (3.8-4.8) L 09/30/20 04:47 Albumin 2.2 g/dL (3.9-5) L 09/30/20 04:47 Albumin/Globulin Ratio 0.6 % 09/30/20 04:47 Blfef-3-Feyorfhxp 0.3 g/dL (0.2-0.3) 09/30/20 04:47 Mcmsq-0-Omvhbjxfm 0.7 g/dL (0.5-0.9) 09/30/20 04:47 Beta Globulins 0.3 g/dL (0.2-0.5) 09/30/20 04:47 Gamma Globulins 1.7 g/dL (0.8-1.7) 09/30/20 04:47 Abnorm Protein Band 1 see below 09/30/20 04:47 PEP Interpretation see below 09/30/20 04:47 Triglycerides 137 mg/dL (2-149) 09/17/20 13:54 Cholesterol 48 mg/dL (50-199) L 09/17/20 13:54 LDL Cholesterol Direct 4 mg/dL (50-130) L 09/17/20 13:54 HDL Cholesterol 9 mg/dL (40-59) L 09/17/20 13:54 Cholesterol/HDL Ratio 5.33 % 09/17/20 13:54 Free PSA See scanned result 09/17/20 17:35 % Free PSA Calc See scanned result 09/17/20 17:35 Total PSA See scanned result 09/17/20 17:35 Serotonin Release Assay See scanned result 09/22/20 15:12 Procalcitonin 2.10 ng/mL (<0.15) 09/25/20 06:40 PTH Intact 161.4 pg/mL (15-65) H 09/19/20 03:30 Arterial Blood Glucose 121 mg/dL (65-95) H 09/17/20 10:28 Arterial Blood Ionized Calcium 5.0 mg/dL (4.6-5.3) 09/17/20 10:28 Urine Color Yellow (Yellow) 09/18/20 12:00 Urine Turbidity Cloudy (Clear) 09/18/20 12:00 Urine pH 5.0 (5.0-7.0) 09/18/20 12:00 Ur Specific [place] 1.009 (1.003-1.030) 09/18/20 12:00 Urine Protein 30 mg/dl mg/dL (Negative) 09/18/20 12:00 Urine Glucose (UA) Neg mg/dL (Negative) 09/18/20 12:00 Urine Ketones Neg mg/dL (Negative) 09/18/20 12:00 Urine Blood Sm (Negative) 09/18/20 12:00 Urine Nitrite Neg (Negative) 09/18/20 12:00 Urine Bilirubin Neg (Negative) 09/18/20 12:00 Urine Urobilinogen < 2.0 mg/dL (<2.0) 09/18/20 12:00 Ur Leukocyte Esterase Mod (Negative) 09/18/20 12:00 Urine WBC (Auto) 71.0 /HPF (0.0-6.0) H 09/18/20 12:00 Urine RBC (Auto) 2.0 /HPF (0.0-6.0) 09/18/20 12:00 U Epithel Cells (Auto) 1.0 /HPF (0-13.0) 09/18/20 12:00 Urine Bacteria (Auto) 4+ /HPF (Negative) 09/18/20 12:00 Urine WBC Clumps 2+ /HPF 09/18/20 12:00 Hyaline Casts 3 /LPF 09/18/20 12:00 Granular Casts 3 /LPF 09/18/20 12:00 Urine Mucus Few /HPF 09/18/20 12:00 Urine Eosinophils None seen (None Seen) 09/19/20 03:15 Urine Creatinine 61.0 mg/dL (0.1-20.0) H 09/18/20 12:00 Urine Sodium 62 mmol/L 09/18/20 12:00 Random Vancomycin 12.7 ug/mL (0-40.0) 09/19/20 03:30 Valproic Acid 17.8 ug/mL (50-100) L 10/03/20 08:12 Heparin-induced Plt Ab Weak positive (Negative) H 09/22/20 15:12 UF Heparin High Dose 0 % Release 09/22/20 15:12 [place] UFH Low Dose 0.1 0 % Release 09/22/20 15:12 [place] UFH Low Dose 0.5 0 % Release 09/22/20 15:12 Lymph Enumerat CD4/CD8 0.70 (0.86-5.00) L 09/19/20 13:35 % CD3 Cells 79 % (57-85) 09/19/20 13:35 Absolute CD3 Count 175 cells/uL (840-3060) L 09/19/20 13:35 % CD4 Cells 31 % (30-61) 09/19/20 13:35 Absolute CD4 Count 70 cells/uL (490-1740) L 09/19/20 13:35 % CD8 Cells 45 % (12-42) H 09/19/20 13:35 Absolute CD8 Count 101 cells/uL (180-1170) L 09/19/20 13:35 % CD19 Cells 12 % (6-29) 09/19/20 13:35 Absolute CD19 Count 26 cells/uL (110-660) L 09/19/20 13:35 C. difficile Tox (PCR) Negative (Negative) 10/09/20 15:15 Coronavirus (PCR) Positive (Negative) A 10/06/20 Unknown Hepatitis A IgM Ab Non-reactive (NonReactive) 09/20/20 17:10 Hep Bs Antigen Non-reactive (Negative) 09/20/20 17:10 Hep B Core IgM Ab Non-reactive (NonReactive) 09/20/20 17:10 Hepatitis C Antibody Non-reactive (NonReactive) 09/20/20 17:10 HIV-1 RNA PCR copies/ml 67 Copies/mL H 09/19/20 13:35 HIV-1 RNA (PCR) log 1.83 Log cps/mL H 09/19/20 13:35 Gardner/IV: Voiding Method Indwelling Catheter Active Medications - Current Medications Current Medications: Generic Name Dose Route Start Last Admin Trade Name Freq PRN Reason Stop Dose Admin Acetaminophen 650 mg 09/17/20 13:52 09/30/20 21:12 Acetaminophen 325 Mg Tab PO 650 mg Q4H PRN Administration Pain MILD(1-3)/Fever >100.5/ANGEL Albuterol 2.5 mg 09/17/20 13:52 09/17/20 20:47 Albuterol 2.5 Mg/3 Ml Nebu IH 2.5 mg Q4HRT PRN Administration Shortness Of Breath Amiodarone HCl 200 mg 10/01/20 22:00 10/12/20 22:21 Amiodarone 200 Mg Tab PO 200 mg BID EDIE Administration Lipase/Protease/Amylase 1 each 09/20/20 13:10 Lipase 10,500/Protease 25,000/Amylase 43,750 (Units) Dr Patrick FEEDTUBE PRN PRN For Clogged Feeding Tube Apixaban 5 mg 10/05/20 22:00 10/12/20 22:20 Apixaban 5 Mg Tab PO 5 mg Q12HR EDIE Administration Ascorbic Acid 500 mg 09/20/20 22:00 10/12/20 22:19 Ascorbic Acid 500 Mg Tab PO 500 mg BID EDIE Administration Cholecalciferol 1,000 unit 09/21/20 10:00 10/12/20 10:16 Cholecalciferol (Vit D3) 1000 Unit (25 Mcg) Tab PO 1,000 unit QDAY EDIE Administration Docusate Sodium 100 mg 10/05/20 11:00 10/12/20 22:21 Docusate Sodium 100 Mg/10 Ml Oral Liqd PO 100 mg BID EDIE Administration Emtricitabine 200 mg 09/30/20 11:00 10/12/20 11:43 Emtricitabine 200 Mg Cap PO 200 mg Q48H EDIE Administration Famotidine 20 mg 09/24/20 10:00 10/12/20 10:16 Famotidine 20 Mg Tab PO 20 mg DAILY EDIE Administration Haloperidol Lactate 5 mg 10/01/20 11:34 10/04/20 13:32 Haloperidol Lactate 5 Mg/1 Ml Inj IM 5 mg Q6H PRN Administration Agitation Sodium Chloride 1,000 mls @ 50 mls/hr 10/11/20 15:45 10/11/20 17:27 Nacl 0.9% 1000 Ml IV 50 mls/hr DIRECT EDIE Administration Metoprolol Tartrate 5 mg 09/19/20 19:06 09/24/20 10:59 Metoprolol Tartrate 5 Mg/5 Ml Inj IV 5 mg Q8HR PRN Administration HR > 135 Minute Metoprolol Tartrate 12.5 mg 10/05/20 14:00 10/13/20 08:42 Metoprolol Tartrate 25 Mg Tab PO 12.5 mg TID EDIE Administration Midodrine 10 mg 10/07/20 08:00 10/13/20 08:41 Midodrine 5 Mg Tab PO 10 mg TID@0800,1200,1600 EDIE Administration Ondansetron HCl 4 mg 09/17/20 13:52 Ondansetron 4 Mg/2 Ml Inj IV Q8H PRN Nausea And Vomiting Quetiapine Fumarate 12.5 mg 10/03/20 22:00 10/12/20 22:20 Quetiapine 25 Mg Tab PO 12.5 mg QHS EDIE Administration Quetiapine Fumarate 12.5 mg 10/04/20 10:00 10/12/20 10:18 Quetiapine 25 Mg Tab PO 12.5 mg QAM EDIE Administration Simple Syrup 15 ml 09/20/20 13:10 Simple Syrup 15 Ml FEEDTUBE PRN PRN Hypoglycemia Simple Syrup 30 ml 09/20/20 13:10 Simple Syrup 15 Ml FEEDTUBE PRN PRN Hypoglycemia Sodium Bicarbonate 325 mg 09/20/20 13:10 Sodium Bicarbonate 325 Mg Tab FEEDTUBE PRN PRN For Clogged Feeding Tube Sodium Chloride 10 ml 09/17/20 22:00 10/12/20 22:00 Sodium Chloride 0.9% 10 Ml Flush Syringe IV Not Given BID EDIE Sodium Chloride 10 ml 09/17/20 13:52 10/12/20 10:19 Sodium Chloride 0.9% 10 Ml Flush Syringe IV 10 ml PRN PRN Administration LINE FLUSH Tamsulosin HCl 0.4 mg 10/07/20 13:00 10/12/20 10:16 Tamsulosin 0.4 Mg Cap PO 0.4 mg QDAY EDIE Administration Tenofovir Disoproxil Fumarate 300 mg 09/30/20 11:00 10/12/20 11:43 Tenofovir 300 Mg Tab PO 300 mg Q48H EDIE Administration Valproic Acid 250 mg 10/03/20 22:00 10/12/20 22:21 Valproic Acid 250 Mg Cap PO 250 mg BID EDIE Administration Zinc Sulfate 220 mg 09/21/20 10:00 10/12/20 10:15 Zinc Sulfate 220 Mg Cap PO 220 mg QDAY EDIE Administration Nutrition/Malnutrition Assess - Dietary Evaluation Nutrition/Malnutrition Findings: Nutrition Notes Start: 09/18/20 11:30 Freq: Status: Active Protocol: Document 10/08/20 11:36 AL (Rec: 10/08/20 11:47 AL [id number]) Co-Sign 10/08/20 11:36 LP Nutrition Notes Initial or Follow up Reassessment Current Diagnosis Acute Kidney Injury,Sepsis, Hypertension,Heart Failure, Respiratory Failure Other Pertinent Diagnosis COVID-19 (+), AMS, UTI, afib with RVR, HIV (+) Current Diet Pureed Renal Labs/Tests BUN 28 Cr 2.2 Pertinent Medications Colace Height 6 ft 1 in Weight 88.6 kg [place] Body Weight (kg) 83.63 BMI 25.7 Weight Status Overweight Subjective/Other Information F/U for intakes and ONS tolerance. Pt tolerateing pureed diet at about 60% and ONS at 50% (1 shake). 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 No Is Patient Ambulatory and/or Out of Bed No REE-([facility] Jeak-confined to bed) Calculation Used for Recommendations [facility] Additional Notes Pro needs: 73 - 88g (1 - 1.2 g /kg 73kg) Fluid needs 1-1.5L/day Nutrition Intervention Change Diet Order: Continue pureed renal diet Add Supplement/Snack (indicate name/kcal Nepro BID /protein ) Provides kCal: 850 Provides Protein (gm) 38 Goal #1 Meet at least 75% of estimated kcal and protein needs via PO Goal #2 Weight maintenance/weight gain Anticipated Discharge Needs: Pureed Renal Diet Follow-Up By: 10/13/20 Additional Comments F/U for stable intakes and ONS tolerance.
[2020-10-13] MEDS: ACETAMINOPHEN 325 MG TAB PO PRN (11:55)
[2020-10-13] MEDS: ZINC SULFATE 220 MG CAP PO SCH (11:56)
[2020-10-13] MEDS: DOCUSATE SODIUM 100 MG/10 ML ORAL LIQD PO SCH ×2 (11:56→21:12)
[2020-10-13] MEDS: APIXABAN 5 MG TAB PO SCH ×2 (11:57→21:21)
[2020-10-13] MEDS: FAMOTIDINE 20 MG TAB PO SCH (11:57)
[2020-10-13] MEDS: ASCORBIC ACID 500 MG TAB PO SCH ×2 (11:57→21:20)
[2020-10-13] MEDS: CHOLECALCIFEROL (VIT D3) 1000 UNIT (25 mcg) TAB PO SCH (11:57)
[2020-10-13] MEDS: VALPROIC ACID 250 MG CAP PO SCH ×2 (11:57→21:36)
[2020-10-13] MEDS: AMIODARONE 200 MG TAB PO SCH ×2 (11:58→21:21)
[2020-10-13] MEDS: DOLUTEGRAVIR 50 MG TAB PO SCH (11:59)
[2020-10-13] MEDS: QUEtiapine 25 MG TAB PO SCH ×2 (12:00→21:20)
[2020-10-13] MEDS: TAMSULOSIN 0.4 MG CAP PO SCH (13:07)
--- NOTE | 2020-10-13 14:04 | Progress Note ---
Assessment and Plan 70 YO Male with HIV, HTN, Atrial Fib currently of therapeutic anticoagulation with Xarelto presents to ED for evaluation. Patient reports "I just can't breathe". Patient states that he has experienced shortness of breath over the past 3 days with persistently worsening symptoms over the same timeframe. EMS notified and upon arrival the patient was found to be in distress with a pulse oximetry of 85% on room air. The patient was placed on supplemental oxygen and subsequently transported to [facility] for further care and evaluation of the aforementioned symptoms. The patient was admitted to this hospital 2 days ago, 09/15, for similar complaints and was found to have A. fib with RVR, hyponatremia, hypomagnesemia and acute kidney injury. Shortly after the patient was admitted he left AMA. The patient was seen and evaluated in the emergency department. All lab and imaging studies reviewed. The patient was also found to have a pulse oximetry of 86% on room air which is consistent with acute hypoxemic respiratory failure. The patient was found to have atrial fibrillation with rapid ventricular response, metabolic acidosis, acute kidney injury, as well as symptoms consistent with acute CHF decompensation. The patient was found to be hypotensive with a blood pressure of 78/43 which resulted in a MAP less than 65. Patient admitted to [facility] due to increased risk of cardiopulmonary decompensation. Patient treated with antiarrhythmic therapy in the emergency department, and initiated on CHF protocol. Cardiology and Nep hrology and pulmonary and critical care consulted. Patient awake. Complaining pain in lower abdomen. Bladder distended. Nursing staff inserting cabral catheter. Patient is on room air. O2 saturation running 100%. No acute respiratory distress. Patient running low grade temp at times. No leukocytosis. Patient's coronavirus test was positive. Patient's inflammatory markers: D-dimer: 1772.86, Ferritin: 1,190, Lactic: 1.00, C-reactive protein: 4.20, NT Pro-BNP: 18,204, Troponin < 0.01, CPK: 20, LDH: 276 Medications include apixaban, albuterol, famotidine. Chest x-ray done on 09/20/20 showed no acute pulmonary or pleural findings. No pneumothorax. - Patient Problems (1) Acute hypoxemic respiratory failure Current Visit: Yes Status: Acute Plan to address problem: Patient resting on room air. O2 saturation running 100%. No acute respiratory distress at rest. Albuterol inhaler (2) CHF (congestive heart failure) Current Visit: Yes Status: Acute Qualifiers: Heart failure type: systolic Heart failure chronicity: acute Qualified Code(s): I50.21 - Acute systolic (congestive) heart failure Plan to address problem: Management as per cardiology (3) LOLI (acute kidney injury) Current Visit: Yes Status: Acute Plan to address problem: Management as per nephrology. (4) AMS (altered mental status) Current Visit: Yes Status: Acute Qualifiers: Altered mental status type: somnolence Qualified Code(s): R40.0 - Somnolence Plan to address problem: Management as per primary team. (5) Atrial fibrillation with RVR Current Visit: Yes Status: Acute Plan to address problem: Management as cardiology. Patient is on Apixaban (6) Coronavirus infection Current Visit: Yes Status: Acute Plan to address problem: Patients [place] virus PCR is positive. Management as per ID. (7) HIV (human immunodeficiency virus infection) Current Visit: Yes Status: Chronic Plan to address problem: Management as per ID. Subjective Date of service: 10/13/20 Principal diagnosis: Acute Hypoxemic Resp Failure; COVID-19 infxn; Septic Shock; A-Fib with RVR Interval history: 70 YO Male with HIV, HTN, Atrial Fib currently of therapeutic anticoagulation with Xarelto presents to ED for evaluation. Patient reports "I just can't breathe". Patient states that he has experienced shortness of breath over the past 3 days with persistently worsening symptoms over the same timeframe. EMS notified and upon arrival the patient was found to be in distress with a pulse oximetry of 85% on room air. The patient was placed on supplemental oxygen and subsequently transported to [facility] for further care and evaluation of the aforementioned symptoms. The patient was admitted to this hospital 2 days ago, 09/15, for similar complaints and was found to have A. fib with RVR, hyponatremia, hypomagnesemia and acute kidney injury. Shortly after the patient was admitted he left AMA. The patient was seen and evaluated in the emergency department. All lab and imaging studies reviewed. The patient was also found to have a pulse oximetry of 86% on room air which is consistent with acute hypoxemic respiratory failure. The patient was found to have atrial fibrillation with rapid ventricular response, metabolic acidosis, acute kidney injury, as well as symptoms consistent with acute CHF decompensation. The patient was found to be hypotensive with a blood pressure of 78/43 which resulted in a MAP less than 65. Patient admitted to [facility] due to increased risk of cardiopulmonary decompensation. Patient treated with antiarrhythmic therapy in the emergency department, and initiated on CHF protocol. Cardiology and Nephrology and pulmonary and critical care consulted. Patient awake. Complaining pain in lower abdomen. Bladder distended. Nursing staff inserting cabral catheter. Patient is on room air. O2 saturation running 100%. No acute respiratory distress. Patient running low grade temp at times. No leukocytosis. Patient's coronavirus test was positive. Patient's inflammatory markers: D-dimer: 1772.86, Ferritin: 1,190, Lactic: 1.00, C-reactive protein: 4.20, NT Pro-BNP: 18,204, Troponin < 0.01, CPK: 20, LDH: 276 Medications include apixaban, albuterol, famotidine. Chest x-ray done on 09/20/20 showed no acute pulmonary or pleural findings. No pneumothorax. Objective Vital Signs - 12hr 10/13/20 10/13/20 10/13/20 05:24 08:42 11:35 Temperature 98.2 F 97.6 F Pulse Rate 97 H 97 H 95 H Respiratory 18 22 Rate Blood Pressure 99/63 99/69 141/95 O2 Sat by Pulse 97 100 Oximetry Constitutional: no acute distress, alert, other (elderly male without increased respiratory effort at rest) Eyes: non-icteric ENT: oropharynx moist Neck: supple, no lymphadenopathy, no JVD Effort: normal Ascultation: Bilateral: rhonchi, other (right SCVL Trialysis catheter) Percussion: Bilateral: not dull Cardiovascular: irregular rhythm Gastrointestinal: normoactive bowel sounds, soft, non-tender, non-distended Integumentary: normal Extremities: no cyanosis, no edema, pulses normal, no ischemia or petechiae Neurologic: non-focal exam (grossly), pupils equal and round, CN II-XII normal, motor strength normal and Psychiatric: mood appropriate, affect normal CBC and BMP: 10/12/20 13:42 10/13/20 06:35 ABG, PT/INR, D-dimer: ABG ABG pH 7.508 (7.320-7.450) H 09/17/20 10:28 POC ABG pCO2 22.8 mmHg (32.0-48.0) L 09/17/20 10:28 POC ABG pO2 66.8 mmHg (83-108) L 09/17/20 10:28 POC ABG HCO3 17.7 09/17/20 10:28 ABG O2 Saturation 93.4 (0-100) 09/17/20 10:28 PT/INR, D-dimer PT 15.7 Sec. (12.2-14.9) H 09/24/20 12:13 INR 1.27 (0.87-1.13) H 09/24/20 12:13 D-Dimer 1772.86 ng/mlDDU (0-234) H 09/24/20 05:00 Abnormal lab findings: Abnormal Labs 09/17/20 09/17/20 09/17/20 10:28 10:47 10:47 WBC 11.1 H RBC 3.44 L Hgb 11.2 L Hct 32.8 L MCV 95 H MCH MCHC RDW Plt Count Lymph % (Auto) [place] % (Auto) Lymph # (Auto) [place] # (Auto) Seg Neutrophils % Seg Neuts % (Manual) Lymphocytes % (Manual) 4.0 L Monocytes % (Manual) Nucleated RBC % Seg Neutrophils # Seg Neutrophils # Man 10.7 H Abs Lymphs (Manual) Lymphocytes # (Manual) 0.4 L PT 32.9 H INR 3.16 H APTT 51.1 H D-Dimer Heparin Anti-Xa Level ABG pH 7.508 H POC ABG pCO2 22.8 L POC ABG pO2 66.8 L ABG Oxyhemoglobin 92.7 L ABG Sodium 127.4 L ABG Potassium 4.7 H ABG Glucose 121 H Carboxyhemoglobin 0.4 L Sodium Potassium Chloride Carbon Dioxide BUN Creatinine Glucose POC Glucose Calcium Phosphorus Ferritin Total Bilirubin AST ALT Alkaline Phosphatase Lactate Dehydrogenase Total Creatine Kinase Troponin T C-Reactive Protein NT-Pro-B Natriuret Pep Serum Total Protein Total Protein Albumin Cholesterol LDL Cholesterol Direct HDL Cholesterol PTH Intact Arterial Blood Glucose 121 H Urine WBC (Auto) Urine Creatinine Valproic Acid Heparin-induced Plt Ab Lymph Enumerat CD4/CD8 Absolute CD3 Count Absolute CD4 Count % CD8 Cells Absolute CD8 Count Absolute CD19 Count Coronavirus (PCR) HIV-1 RNA PCR copies/ml HIV-1 RNA (PCR) log 09/17/20 09/17/20 09/17/20 10:47 10:47 13:54 WBC RBC Hgb Hct MCV MCH MCHC RDW Plt Count Lymph % (Auto) [place] % (Auto) Lymph # (Auto) [place] # (Auto) Seg Neutrophils % Seg Neuts % (Manual) Lymphocytes % (Manual) Monocytes % (Manual) Nucleated RBC % Seg Neutrophils # Seg Neutrophils # Man Abs Lymphs (Manual) Lymphocytes # (Manual) PT INR APTT D-Dimer Heparin Anti-Xa Level ABG pH POC ABG pCO2 POC ABG pO2 ABG Oxyhemoglobin ABG Sodium ABG Potassium ABG Glucose Carboxyhemoglobin Sodium 125 L Potassium Chloride 95.3 L Carbon Dioxide 17 L BUN 64 H Creatinine 4.6 H D Glucose 104 H POC Glucose Calcium Phosphorus Ferritin Total Bilirubin AST 69 H ALT Alkaline Phosphatase Lactate Dehydrogenase Total Creatine Kinase Troponin T 0.061 H D 0.058 H C-Reactive Protein NT-Pro-B Natriuret Pep 70343 H Serum Total Protein Total Protein Albumin 1.9 L Cholesterol 48 L LDL Cholesterol Direct 4 L HDL Cholesterol 9 L PTH Intact Arterial Blood Glucose Urine WBC (Auto) Urine Creatinine Valproic Acid Heparin-induced Plt Ab Lymph Enumerat CD4/CD8 Absolute CD3 Count Absolute CD4 Count % CD8 Cells Absolute CD8 Count Absolute CD19 Count Coronavirus (PCR) HIV-1 RNA PCR copies/ml HIV-1 RNA (PCR) log 09/17/20 09/17/20 09/17/20 16:36 17:35 17:35 WBC RBC 3.25 L Hgb 10.7 L Hct 31.1 L MCV 96 H MCH 33 H MCHC RDW Plt Count Lymph % (Auto) [place] % (Auto) Lymph # (Auto) [place] # (Auto) Seg Neutrophils % Seg Neuts % (Manual) Lymphocytes % (Manual) Monocytes % (Manual) Nucleated RBC % Seg Neutrophils # Seg Neutrophils # Man Abs Lymphs (Manual) Lymphocytes # (Manual) PT 31.9 H INR 3.04 H APTT 50.9 H D-Dimer Heparin Anti-Xa Level ABG pH POC ABG pCO2 POC ABG pO2 ABG Oxyhemoglobin ABG Sodium ABG Potassium ABG Glucose Carboxyhemoglobin Sodium Potassium Chloride Carbon Dioxide BUN Creatinine Glucose POC Glucose Calcium Phosphorus Ferritin Total Bilirubin AST ALT Alkaline Phosphatase Lactate Dehydrogenase Total Creatine Kinase Troponin T 0.057 H C-Reactive Protein NT-Pro-B Natriuret Pep Serum Total Protein Total Protein Albumin Cholesterol LDL Cholesterol Direct HDL Cholesterol PTH Intact Arterial Blood Glucose Urine WBC (Auto) Urine Creatinine Valproic Acid Heparin-induced Plt Ab Lymph Enumerat CD4/CD8 Absolute CD3 Count Absolute CD4 Count % CD8 Cells Absolute CD8 Count Absolute CD19 Count Coronavirus (PCR) HIV-1 RNA PCR copies/ml HIV-1 RNA (PCR) log 09/17/20 09/18/20 09/18/20 17:35 03:19 03:19 WBC RBC 3.32 L Hgb 10.9 L Hct 32.0 L MCV 96 H MCH 33 H MCHC RDW Plt Count 138 L Lymph % (Auto) [place] % (Auto) Lymph # (Auto) [place] # (Auto) Seg Neutrophils % Seg Neuts % (Manual) 95.0 H Lymphocytes % (Manual) 3.0 L Monocytes % (Manual) Nucleated RBC % Seg Neutrophils # Seg Neutrophils # Man 8.1 H Abs Lymphs (Manual) Lymphocytes # (Manual) 0.3 L PT INR APTT D-Dimer Heparin Anti-Xa Level ABG pH POC ABG pCO2 POC ABG pO2 ABG Oxyhemoglobin ABG Sodium ABG Potassium ABG Glucose Carboxyhemoglobin Sodium Potassium Chloride Carbon Dioxide 16 L BUN 70 H Creatinine 4.6 H 4.7 H Glucose 104 H POC Glucose Calcium 8.2 L Phosphorus Ferritin Total Bilirubin 1.60 H AST 128 H ALT 67 H Alkaline Phosphatase Lactate Dehydrogenase Total Creatine Kinase Troponin T C-Reactive Protein NT-Pro-B Natriuret Pep Serum Total Protein Total Protein 5.2 L D Albumin 2.5 L Cholesterol LDL Cholesterol Direct HDL Cholesterol PTH Intact Arterial Blood Glucose Urine WBC (Auto) Urine Creatinine Valproic Acid Heparin-induced Plt Ab Lymph Enumerat CD4/CD8 Absolute CD3 Count Absolute CD4 Count % CD8 Cells Absolute CD8 Count Absolute CD19 Count Coronavirus (PCR) HIV-1 RNA PCR copies/ml HIV-1 RNA (PCR) log 09/18/20 09/18/20 09/18/20 09:39 12:00 12:00 WBC RBC Hgb Hct MCV MCH MCHC RDW Plt Count Lymph % (Auto) [place] % (Auto) Lymph # (Auto) [place] # (Auto) Seg Neutrophils % Seg Neuts % (Manual) Lymphocytes % (Manual) Monocytes % (Manual) Nucleated RBC % Seg Neutrophils # Seg Neutrophils # Man Abs Lymphs (Manual) Lymphocytes # (Manual) PT INR APTT D-Dimer Heparin Anti-Xa Level ABG pH POC ABG pCO2 POC ABG pO2 ABG Oxyhemoglobin ABG Sodium ABG Potassium ABG Glucose Carboxyhemoglobin Sodium Potassium Chloride Carbon Dioxide BUN Creatinine Glucose POC Glucose Calcium Phosphorus Ferritin Total Bilirubin AST ALT Alkaline Phosphatase Lactate Dehydrogenase Total Creatine Kinase Troponin T C-Reactive Protein NT-Pro-B Natriuret Pep Serum Total Protein Total Protein Albumin Cholesterol LDL Cholesterol Direct HDL Cholesterol PTH Intact Arterial Blood Glucose Urine WBC (Auto) 71.0 H Urine Creatinine 61.0 H Valproic Acid Heparin-induced Plt Ab Lymph Enumerat CD4/CD8 Absolute CD3 Count Absolute CD4 Count % CD8 Cells Absolute CD8 Count Absolute CD19 Count Coronavirus (PCR) Positive A HIV-1 RNA PCR copies/ml HIV-1 RNA (PCR) log 09/18/20 09/18/20 09/18/20 15:07 15:07 18:33 WBC RBC Hgb 10.7 L Hct 31.3 L MCV MCH MCHC RDW Plt Count Lymph % (Auto) [place] % (Auto) Lymph # (Auto) [place] # (Auto) Seg Neutrophils % Seg Neuts % (Manual) Lymphocytes % (Manual) Monocytes % (Manual) Nucleated RBC % Seg Neutrophils # Seg Neutrophils # Man Abs Lymphs (Manual) Lymphocytes # (Manual) PT 20.3 H INR 1.73 H APTT 40.8 H D-Dimer Heparin Anti-Xa Level 1.09 H ABG pH POC ABG pCO2 POC ABG pO2 ABG Oxyhemoglobin ABG Sodium ABG Potassium ABG Glucose Carboxyhemoglobin Sodium Potassium Chloride Carbon Dioxide BUN Creatinine Glucose POC Glucose Calcium Phosphorus Ferritin Total Bilirubin AST ALT Alkaline Phosphatase Lactate Dehydrogenase Total Creatine Kinase Troponin T C-Reactive Protein NT-Pro-B Natriuret Pep Serum Total Protein Total Protein Albumin Cholesterol LDL Cholesterol Direct HDL Cholesterol PTH Intact Arterial Blood Glucose Urine WBC (Auto) Urine Creatinine Valproic Acid Heparin-induced Plt Ab Lymph Enumerat CD4/CD8 Absolute CD3 Count Absolute CD4 Count % CD8 Cells Absolute CD8 Count Absolute CD19 Count Coronavirus (PCR) HIV-1 RNA PCR copies/ml HIV-1 RNA (PCR) log 09/19/20 09/19/20 09/19/20 03:30 03:30 03:30 WBC RBC 3.29 L Hgb 10.9 L Hct 30.9 L MCV MCH 33 H MCHC 35 H RDW Plt Count Lymph % (Auto) [place] % (Auto) Lymph # (Auto) [place] # (Auto) Seg Neutrophils % Seg Neuts % (Manual) Lymphocytes % (Manual) Monocytes % (Manual) Nucleated RBC % Seg Neutrophils # Seg Neutrophils # Man Abs Lymphs (Manual) Lymphocytes # (Manual) PT INR APTT D-Dimer Heparin Anti-Xa Level ABG pH POC ABG pCO2 POC ABG pO2 ABG Oxyhemoglobin ABG Sodium ABG Potassium ABG Glucose Carboxyhemoglobin Sodium 133 L Potassium Chloride Carbon Dioxide 17 L BUN 94 H Creatinine 5.0 H Glucose 120 H POC Glucose Calcium Phosphorus 6.30 H Ferritin Total Bilirubin 2.40 H AST 163 H ALT 109 H Alkaline Phosphatase 160 H Lactate Dehydrogenase Total Creatine Kinase 20 L Troponin T C-Reactive Protein NT-Pro-B Natriuret Pep Serum Total Protein Total Protein 6.2 L Albumin 2.0 L Cholesterol LDL Cholesterol Direct HDL Cholesterol PTH Intact 161.4 H Arterial Blood Glucose Urine WBC (Auto) Urine Creatinine Valproic Acid Heparin-induced Plt Ab Lymph Enumerat CD4/CD8 Absolute CD3 Count Absolute CD4 Count % CD8 Cells Absolute CD8 Count Absolute CD19 Count Coronavirus (PCR) HIV-1 RNA PCR copies/ml HIV-1 RNA (PCR) log 09/19/20 09/19/20 09/19/20 06:35 13:35 13:35 WBC RBC Hgb Hct MCV MCH MCHC RDW Plt Count Lymph % (Auto) [place] % (Auto) Lymph # (Auto) [place] # (Auto) Seg Neutrophils % Seg Neuts % (Manual) Lymphocytes % (Manual) Monocytes % (Manual) Nucleated RBC % Seg Neutrophils # Seg Neutrophils # Man Abs Lymphs (Manual) 223 L Lymphocytes # (Manual) PT INR APTT D-Dimer Heparin Anti-Xa Level ABG pH POC ABG pCO2 POC ABG pO2 ABG Oxyhemoglobin ABG Sodium ABG Potassium ABG Glucose Carboxyhemoglobin Sodium Potassium Chloride Carbon Dioxide BUN Creatinine Glucose POC Glucose 123 H Calcium Phosphorus Ferritin Total Bilirubin AST ALT Alkaline Phosphatase Lactate Dehydrogenase Total Creatine Kinase Troponin T C-Reactive Protein NT-Pro-B Natriuret Pep Serum Total Protein Total Protein Albumin Cholesterol LDL Cholesterol Direct HDL Cholesterol PTH Intact Arterial Blood Glucose Urine WBC (Auto) Urine Creatinine Valproic Acid Heparin-induced Plt Ab Lymph Enumerat CD4/CD8 0.70 L Absolute CD3 Count 175 L Absolute CD4 Count 70 L % CD8 Cells 45 H Absolute CD8 Count 101 L Absolute CD19 Count 26 L Coronavirus (PCR) HIV-1 RNA PCR copies/ml 67 H HIV-1 RNA (PCR) log 1.83 H 09/19/20 09/20/20 09/20/20 23:37 04:00 04:00 WBC RBC 3.43 L Hgb 11.1 L Hct 32.2 L MCV MCH MCHC RDW Plt Count 131 L Lymph % (Auto) [place] % (Auto) Lymph # (Auto) [place] # (Auto) Seg Neutrophils % Seg Neuts % (Manual) 88.0 H Lymphocytes % (Manual) 3.0 L Monocytes % (Manual) 9.0 H Nucleated RBC % Seg Neutrophils # Seg Neutrophils # Man 8.2 H Abs Lymphs (Manual) Lymphocytes # (Manual) 0.3 L PT INR APTT D-Dimer Heparin Anti-Xa Level 0.10 L ABG pH POC ABG pCO2 POC ABG pO2 ABG Oxyhemoglobin ABG Sodium ABG Potassium ABG Glucose Carboxyhemoglobin Sodium Potassium Chloride Carbon Dioxide BUN Creatinine Glucose POC Glucose 135 H Calcium Phosphorus Ferritin Total Bilirubin AST ALT Alkaline Phosphatase Lactate Dehydrogenase Total Creatine Kinase Troponin T C-Reactive Protein NT-Pro-B Natriuret Pep Serum Total Protein Total Protein Albumin Cholesterol LDL Cholesterol Direct HDL Cholesterol PTH Intact Arterial Blood Glucose Urine WBC (Auto) Urine Creatinine Valproic Acid Heparin-induced Plt Ab Lymph Enumerat CD4/CD8 Absolute CD3 Count Absolute CD4 Count % CD8 Cells Absolute CD8 Count Absolute CD19 Count Coronavirus (PCR) HIV-1 RNA PCR copies/ml HIV-1 RNA (PCR) log 09/20/20 09/20/20 09/20/20 04:00 05:37 11:20 WBC RBC Hgb Hct MCV MCH MCHC RDW Plt Count Lymph % (Auto) [place] % (Auto) Lymph # (Auto) [place] # (Auto) Seg Neutrophils % Seg Neuts % (Manual) Lymphocytes % (Manual) Monocytes % (Manual) Nucleated RBC % Seg Neutrophils # Seg Neutrophils # Man Abs Lymphs (Manual) Lymphocytes # (Manual) PT INR APTT D-Dimer Heparin Anti-Xa Level ABG pH POC ABG pCO2 POC ABG pO2 ABG Oxyhemoglobin ABG Sodium ABG Potassium ABG Glucose Carboxyhemoglobin Sodium Potassium Chloride Carbon Dioxide 16 L BUN 119 H Creatinine 6.2 H Glucose 136 H POC Glucose 137 H 108 H Calcium Phosphorus Ferritin Total Bilirubin AST ALT Alkaline Phosphatase Lactate Dehydrogenase Total Creatine Kinase Troponin T C-Reactive Protein NT-Pro-B Natriuret Pep Serum Total Protein Total Protein Albumin Cholesterol LDL Cholesterol Direct HDL Cholesterol PTH Intact Arterial Blood Glucose Urine WBC (Auto) Urine Creatinine Valproic Acid Heparin-induced Plt Ab Lymph Enumerat CD4/CD8 Absolute CD3 Count Absolute CD4 Count % CD8 Cells Absolute CD8 Count Absolute CD19 Count Coronavirus (PCR) HIV-1 RNA PCR copies/ml HIV-1 RNA (PCR) log 09/20/20 09/20/20 09/20/20 17:10 17:10 17:10 WBC RBC Hgb Hct MCV MCH MCHC RDW Plt Count Lymph % (Auto) [place] % (Auto) Lymph # (Auto) [place] # (Auto) Seg Neutrophils % Seg Neuts % (Manual) Lymphocytes % (Manual) Monocytes % (Manual) Nucleated RBC % Seg Neutrophils # Seg Neutrophils # Man Abs Lymphs (Manual) Lymphocytes # (Manual) PT INR APTT D-Dimer 4271.58 H Heparin Anti-Xa Level ABG pH POC ABG pCO2 POC ABG pO2 ABG Oxyhemoglobin ABG Sodium ABG Potassium ABG Glucose Carboxyhemoglobin Sodium Potassium Chloride Carbon Dioxide BUN Creatinine 6.0 H Glucose POC Glucose Calcium Phosphorus Ferritin 696.6 H Total Bilirubin AST ALT Alkaline Phosphatase Lactate Dehydrogenase Total Creatine Kinase Troponin T C-Reactive Protein NT-Pro-B Natriuret Pep Serum Total Protein Total Protein Albumin Cholesterol LDL Cholesterol Direct HDL Cholesterol PTH Intact Arterial Blood Glucose Urine WBC (Auto) Urine Creatinine Valproic Acid Heparin-induced Plt Ab Lymph Enumerat CD4/CD8 Absolute CD3 Count Absolute CD4 Count % CD8 Cells Absolute CD8 Count Absolute CD19 Count Coronavirus (PCR) HIV-1 RNA PCR copies/ml HIV-1 RNA (PCR) log 09/20/20 09/20/20 09/20/20 17:10 18:21 23:14 WBC RBC Hgb Hct MCV MCH MCHC RDW Plt Count Lymph % (Auto) [place] % (Auto) Lymph # (Auto) [place] # (Auto) Seg Neutrophils % Seg Neuts % (Manual) Lymphocytes % (Manual) Monocytes % (Manual) Nucleated RBC % Seg Neutrophils # Seg Neutrophils # Man Abs Lymphs (Manual) Lymphocytes # (Manual) PT INR APTT D-Dimer Heparin Anti-Xa Level ABG pH POC ABG pCO2 POC ABG pO2 ABG Oxyhemoglobin ABG Sodium ABG Potassium ABG Glucose Carboxyhemoglobin Sodium Potassium Chloride Carbon Dioxide BUN Creatinine Glucose POC Glucose 129 H 170 H Calcium Phosphorus Ferritin Total Bilirubin AST ALT Alkaline Phosphatase Lactate Dehydrogenase 209 H Total Creatine Kinase Troponin T C-Reactive Protein 10.60 H NT-Pro-B Natriuret Pep Serum Total Protein Total Protein Albumin Cholesterol LDL Cholesterol Direct HDL Cholesterol PTH Intact Arterial Blood Glucose Urine WBC (Auto) Urine Creatinine Valproic Acid Heparin-induced Plt Ab Lymph Enumerat CD4/CD8 Absolute CD3 Count Absolute CD4 Count % CD8 Cells Absolute CD8 Count Absolute CD19 Count Coronavirus (PCR) HIV-1 RNA PCR copies/ml HIV-1 RNA (PCR) log 09/21/20 09/21/20 09/21/20 05:35 17:09 23:18 WBC RBC Hgb Hct MCV MCH MCHC RDW Plt Count Lymph % (Auto) [place] % (Auto) Lymph # (Auto) [place] # (Auto) Seg Neutrophils % Seg Neuts % (Manual) Lymphocytes % (Manual) Monocytes % (Manual) Nucleated RBC % Seg Neutrophils # Seg Neutrophils # Man Abs Lymphs (Manual) Lymphocytes # (Manual) PT INR APTT D-Dimer Heparin Anti-Xa Level ABG pH POC ABG pCO2 POC ABG pO2 ABG Oxyhemoglobin ABG Sodium ABG Potassium ABG Glucose Carboxyhemoglobin Sodium Potassium Chloride Carbon Dioxide BUN Creatinine Glucose POC Glucose 170 H 140 H 139 H Calcium Phosphorus Ferritin Total Bilirubin AST ALT Alkaline Phosphatase Lactate Dehydrogenase Total Creatine Kinase Troponin T C-Reactive Protein NT-Pro-B Natriuret Pep Serum Total Protein Total Protein Albumin Cholesterol LDL Cholesterol Direct HDL Cholesterol PTH Intact Arterial Blood Glucose Urine WBC (Auto) Urine Creatinine Valproic Acid Heparin-induced Plt Ab Lymph Enumerat CD4/CD8 Absolute CD3 Count Absolute CD4 Count % CD8 Cells Absolute CD8 Count Absolute CD19 Count Coronavirus (PCR) HIV-1 RNA PCR copies/ml HIV-1 RNA (PCR) log 09/21/20 09/21/20 09/21/20 Unknown Unknown Unknown WBC RBC 3.56 L Hgb 11.3 L Hct 33.2 L MCV MCH MCHC RDW Plt Count 125 L Lymph % (Auto) [place] % (Auto) Lymph # (Auto) [place] # (Auto) Seg Neutrophils % Seg Neuts % (Manual) 90.0 H Lymphocytes % (Manual) 8.0 L Monocytes % (Manual) Nucleated RBC % 1.0 H Seg Neutrophils # Seg Neutrophils # Man 9.4 H Abs Lymphs (Manual) Lymphocytes # (Manual) 0.8 L PT 16.8 H INR 1.36 H APTT D-Dimer Heparin Anti-Xa Level ABG pH POC ABG pCO2 POC ABG pO2 ABG Oxyhemoglobin ABG Sodium ABG Potassium ABG Glucose Carboxyhemoglobin Sodium Potassium Chloride Carbon Dioxide BUN 83 H Creatinine 4.3 H Glucose 163 H POC Glucose Calcium Phosphorus Ferritin Total Bilirubin 2.40 H AST ALT 57 H Alkaline Phosphatase < 5 L Lactate Dehydrogenase Total Creatine Kinase Troponin T C-Reactive Protein NT-Pro-B Natriuret Pep Serum Total Protein Total Protein Albumin 1.9 L Cholesterol LDL Cholesterol Direct HDL Cholesterol PTH Intact Arterial Blood Glucose Urine WBC (Auto) Urine Creatinine Valproic Acid Heparin-induced Plt Ab Lymph Enumerat CD4/CD8 Absolute CD3 Count Absolute CD4 Count % CD8 Cells Absolute CD8 Count Absolute CD19 Count Coronavirus (PCR) HIV-1 RNA PCR copies/ml HIV-1 RNA (PCR) log 09/22/20 09/22/20 09/22/20 05:38 05:38 05:38 WBC 15.8 H RBC 3.36 L Hgb 10.8 L Hct 31.0 L MCV MCH MCHC 35 H RDW Plt Count 68 L Lymph % (Auto) 3.1 L [place] % (Auto) 10.7 H Lymph # (Auto) 0.5 L [place] # (Auto) 1.7 H Seg Neutrophils % 85.9 H Seg Neuts % (Manual) Lymphocytes % (Manual) Monocytes % (Manual) Nucleated RBC % Seg Neutrophils # 13.6 H Seg Neutrophils # Man Abs Lymphs (Manual) Lymphocytes # (Manual) PT INR APTT D-Dimer 3281.49 H Heparin Anti-Xa Level ABG pH POC ABG pCO2 POC ABG pO2 ABG Oxyhemoglobin ABG Sodium ABG Potassium ABG Glucose Carboxyhemoglobin Sodium Potassium Chloride Carbon Dioxide BUN 61 H Creatinine 3.1 H Glucose 129 H POC Glucose Calcium Phosphorus Ferritin Total Bilirubin AST ALT Alkaline Phosphatase Lactate Dehydrogenase 277 H Total Creatine Kinase Troponin T C-Reactive Protein 6.60 H NT-Pro-B Natriuret Pep Serum Total Protein Total Protein Albumin Cholesterol LDL Cholesterol Direct HDL Cholesterol PTH Intact Arterial Blood Glucose Urine WBC (Auto) Urine Creatinine Valproic Acid Heparin-induced Plt Ab Lymph Enumerat CD4/CD8 Absolute CD3 Count Absolute CD4 Count % CD8 Cells Absolute CD8 Count Absolute CD19 Count Coronavirus (PCR) HIV-1 RNA PCR copies/ml HIV-1 RNA (PCR) log 09/22/20 09/22/20 09/22/20 05:38 05:44 11:26 WBC RBC Hgb Hct MCV MCH MCHC RDW Plt Count Lymph % (Auto) [place] % (Auto) Lymph # (Auto) [place] # (Auto) Seg Neutrophils % Seg Neuts % (Manual) Lymphocytes % (Manual) Monocytes % (Manual) Nucleated RBC % Seg Neutrophils # Seg Neutrophils # Man Abs Lymphs (Manual) Lymphocytes # (Manual) PT INR APTT D-Dimer Heparin Anti-Xa Level ABG pH POC ABG pCO2 POC ABG pO2 ABG Oxyhemoglobin ABG Sodium ABG Potassium ABG Glucose Carboxyhemoglobin Sodium Potassium Chloride Carbon Dioxide BUN Creatinine Glucose POC Glucose 112 H 131 H Calcium Phosphorus Ferritin 927.8 H Total Bilirubin AST ALT Alkaline Phosphatase Lactate Dehydrogenase Total Creatine Kinase Troponin T C-Reactive Protein NT-Pro-B Natriuret Pep Serum Total Protein Total Protein Albumin Cholesterol LDL Cholesterol Direct HDL Cholesterol PTH Intact Arterial Blood Glucose Urine WBC (Auto) Urine Creatinine Valproic Acid Heparin-induced Plt Ab Lymph Enumerat CD4/CD8 Absolute CD3 Count Absolute CD4 Count % CD8 Cells Absolute CD8 Count Absolute CD19 Count Coronavirus (PCR) HIV-1 RNA PCR copies/ml HIV-1 RNA (PCR) log 09/22/20 09/22/20 09/22/20 15:12 15:12 15:12 WBC RBC Hgb Hct MCV MCH MCHC RDW Plt Count Lymph % (Auto) [place] % (Auto) Lymph # (Auto) [place] # (Auto) Seg Neutrophils % Seg Neuts % (Manual) Lymphocytes % (Manual) Monocytes % (Manual) Nucleated RBC % Seg Neutrophils # Seg Neutrophils # Man Abs Lymphs (Manual) Lymphocytes # (Manual) PT 17.3 H INR 1.42 H APTT D-Dimer Heparin Anti-Xa Level ABG pH POC ABG pCO2 POC ABG pO2 ABG Oxyhemoglobin ABG Sodium ABG Potassium ABG Glucose Carboxyhemoglobin Sodium Potassium Chloride Carbon Dioxide BUN Creatinine 3.0 H Glucose POC Glucose Calcium Phosphorus Ferritin Total Bilirubin AST ALT Alkaline Phosphatase Lactate Dehydrogenase Total Creatine Kinase Troponin T C-Reactive Protein NT-Pro-B Natriuret Pep Serum Total Protein Total Protein Albumin Cholesterol LDL Cholesterol Direct HDL Cholesterol PTH Intact Arterial Blood Glucose Urine WBC (Auto) Urine Creatinine Valproic Acid Heparin-induced Plt Ab Weak positive H Lymph Enumerat CD4/CD8 Absolute CD3 Count Absolute CD4 Count % CD8 Cells Absolute CD8 Count Absolute CD19 Count Coronavirus (PCR) HIV-1 RNA PCR copies/ml HIV-1 RNA (PCR) log 09/22/20 09/22/20 09/23/20 16:53 23:55 04:36 WBC 14.2 H RBC 3.05 L Hgb 9.8 L Hct 28.4 L MCV MCH MCHC RDW Plt Count 39 L Lymph % (Auto) [place] % (Auto) Lymph # (Auto) [place] # (Auto) Seg Neutrophils % Seg Neuts % (Manual) 91.0 H Lymphocytes % (Manual) 2.0 L Monocytes % (Manual) Nucleated RBC % Seg Neutrophils # Seg Neutrophils # Man 12.9 H Abs Lymphs (Manual) Lymphocytes # (Manual) 0.3 L PT INR APTT D-Dimer Heparin Anti-Xa Level ABG pH POC ABG pCO2 POC ABG pO2 ABG Oxyhemoglobin ABG Sodium ABG Potassium ABG Glucose Carboxyhemoglobin Sodium Potassium Chloride Carbon Dioxide BUN Creatinine Glucose POC Glucose 138 H 171 H Calcium Phosphorus Ferritin Total Bilirubin AST ALT Alkaline Phosphatase Lactate Dehydrogenase Total Creatine Kinase Troponin T C-Reactive Protein NT-Pro-B Natriuret Pep Serum Total Protein Total Protein Albumin Cholesterol LDL Cholesterol Direct HDL Cholesterol PTH Intact Arterial Blood Glucose Urine WBC (Auto) Urine Creatinine Valproic Acid Heparin-induced Plt Ab Lymph Enumerat CD4/CD8 Absolute CD3 Count Absolute CD4 Count % CD8 Cells Absolute CD8 Count Absolute CD19 Count Coronavirus (PCR) HIV-1 RNA PCR copies/ml HIV-1 RNA (PCR) log 09/23/20 09/23/20 09/23/20 04:36 05:41 11:38 WBC RBC Hgb Hct MCV MCH MCHC RDW Plt Count Lymph % (Auto) [place] % (Auto) Lymph # (Auto) [place] # (Auto) Seg Neutrophils % Seg Neuts % (Manual) Lymphocytes % (Manual) Monocytes % (Manual) Nucleated RBC % Seg Neutrophils # Seg Neutrophils # Man Abs Lymphs (Manual) Lymphocytes # (Manual) PT INR APTT D-Dimer Heparin Anti-Xa Level ABG pH POC ABG pCO2 POC ABG pO2 ABG Oxyhemoglobin ABG Sodium ABG Potassium ABG Glucose Carboxyhemoglobin Sodium Potassium Chloride Carbon Dioxide BUN 76 H Creatinine 3.1 H Glucose 157 H POC Glucose 136 H 141 H Calcium Phosphorus Ferritin Total Bilirubin AST ALT Alkaline Phosphatase Lactate Dehydrogenase Total Creatine Kinase Troponin T C-Reactive Protein NT-Pro-B Natriuret Pep Serum Total Protein Total Protein Albumin Cholesterol LDL Cholesterol Direct HDL Cholesterol PTH Intact Arterial Blood Glucose Urine WBC (Auto) Urine Creatinine Valproic Acid Heparin-induced Plt Ab Lymph Enumerat CD4/CD8 Absolute CD3 Count Absolute CD4 Count % CD8 Cells Absolute CD8 Count Absolute CD19 Count Coronavirus (PCR) HIV-1 RNA PCR copies/ml HIV-1 RNA (PCR) log 09/23/20 09/23/20 09/24/20 17:09 23:51 05:00 WBC 24.2 H RBC 3.23 L Hgb 10.0 L Hct 29.7 L MCV MCH MCHC RDW Plt Count 74 L Lymph % (Auto) [place] % (Auto) Lymph # (Auto) [place] # (Auto) Seg Neutrophils % Seg Neuts % (Manual) Lymphocytes % (Manual) Monocytes % (Manual) Nucleated RBC % Seg Neutrophils # Seg Neutrophils # Man Abs Lymphs (Manual) Lymphocytes # (Manual) PT INR APTT D-Dimer Heparin Anti-Xa Level ABG pH POC ABG pCO2 POC ABG pO2 ABG Oxyhemoglobin ABG Sodium ABG Potassium ABG Glucose Carboxyhemoglobin Sodium Potassium Chloride Carbon Dioxide BUN Creatinine Glucose POC Glucose 128 H 128 H Calcium Phosphorus Ferritin Total Bilirubin AST ALT Alkaline Phosphatase Lactate Dehydrogenase Total Creatine Kinase Troponin T C-Reactive Protein NT-Pro-B Natriuret Pep Serum Total Protein Total Protein Albumin Cholesterol LDL Cholesterol Direct HDL Cholesterol PTH Intact Arterial Blood Glucose Urine WBC (Auto) Urine Creatinine Valproic Acid Heparin-induced Plt Ab Lymph Enumerat CD4/CD8 Absolute CD3 Count Absolute CD4 Count % CD8 Cells Absolute CD8 Count Absolute CD19 Count Coronavirus (PCR) HIV-1 RNA PCR copies/ml HIV-1 RNA (PCR) log 09/24/20 09/24/20 09/24/20 05:00 05:00 05:00 WBC RBC Hgb Hct MCV MCH MCHC RDW Plt Count Lymph % (Auto) [place] % (Auto) Lymph # (Auto) [place] # (Auto) Seg Neutrophils % Seg Neuts % (Manual) Lymphocytes % (Manual) Monocytes % (Manual) Nucleated RBC % Seg Neutrophils # Seg Neutrophils # Man Abs Lymphs (Manual) Lymphocytes # (Manual) PT INR APTT D-Dimer 1772.86 H Heparin Anti-Xa Level ABG pH POC ABG pCO2 POC ABG pO2 ABG Oxyhemoglobin ABG Sodium ABG Potassium ABG Glucose Carboxyhemoglobin Sodium Potassium Chloride 107.1 H Carbon Dioxide BUN 90 H Creatinine 3.1 H Glucose 118 H POC Glucose Calcium Phosphorus Ferritin 1190.0 H Total Bilirubin AST ALT Alkaline Phosphatase Lactate Dehydrogenase 276 H Total Creatine Kinase Troponin T C-Reactive Protein 4.20 H NT-Pro-B Natriuret Pep Serum Total Protein Total Protein Albumin Cholesterol LDL Cholesterol Direct HDL Cholesterol PTH Intact Arterial Blood Glucose Urine WBC (Auto) Urine Creatinine Valproic Acid Heparin-induced Plt Ab Lymph Enumerat CD4/CD8 Absolute CD3 Count Absolute CD4 Count % CD8 Cells Absolute CD8 Count Absolute CD19 Count Coronavirus (PCR) HIV-1 RNA PCR copies/ml HIV-1 RNA (PCR) log 09/24/20 09/24/20 09/24/20 05:12 11:25 12:09 WBC RBC Hgb Hct MCV MCH MCHC RDW Plt Count Lymph % (Auto) [place] % (Auto) Lymph # (Auto) [place] # (Auto) Seg Neutrophils % Seg Neuts % (Manual) Lymphocytes % (Manual) Monocytes % (Manual) Nucleated RBC % Seg Neutrophils # Seg Neutrophils # Man Abs Lymphs (Manual) Lymphocytes # (Manual) PT INR APTT D-Dimer Heparin Anti-Xa Level ABG pH POC ABG pCO2 POC ABG pO2 ABG Oxyhemoglobin ABG Sodium ABG Potassium ABG Glucose Carboxyhemoglobin Sodium Potassium Chloride Carbon Dioxide BUN Creatinine 3.1 H Glucose POC Glucose 114 H 110 H Calcium Phosphorus Ferritin Total Bilirubin AST ALT Alkaline Phosphatase Lactate Dehydrogenase Total Creatine Kinase Troponin T C-Reactive Protein NT-Pro-B Natriuret Pep Serum Total Protein Total Protein Albumin Cholesterol LDL Cholesterol Direct HDL Cholesterol PTH Intact Arterial Blood Glucose Urine WBC (Auto) Urine Creatinine Valproic Acid Heparin-induced Plt Ab Lymph Enumerat CD4/CD8 Absolute CD3 Count Absolute CD4 Count % CD8 Cells Absolute CD8 Count Absolute CD19 Count Coronavirus (PCR) HIV-1 RNA PCR copies/ml HIV-1 RNA (PCR) log 09/24/20 09/24/20 09/24/20 12:13 12:13 17:41 WBC 20.8 H RBC 3.04 L Hgb 9.5 L Hct 28.0 L MCV MCH MCHC RDW Plt Count 78 L Lymph % (Auto) [place] % (Auto) Lymph # (Auto) [place] # (Auto) Seg Neutrophils % Seg Neuts % (Manual) Lymphocytes % (Manual) Monocytes % (Manual) Nucleated RBC % Seg Neutrophils # Seg Neutrophils # Man Abs Lymphs (Manual) Lymphocytes # (Manual) PT 15.7 H INR 1.27 H APTT D-Dimer Heparin Anti-Xa Level ABG pH POC ABG pCO2 POC ABG pO2 ABG Oxyhemoglobin ABG Sodium ABG Potassium ABG Glucose Carboxyhemoglobin Sodium Potassium Chloride Carbon Dioxide BUN Creatinine Glucose POC Glucose 133 H Calcium Phosphorus Ferritin Total Bilirubin AST ALT Alkaline Phosphatase Lactate Dehydrogenase Total Creatine Kinase Troponin T C-Reactive Protein NT-Pro-B Natriuret Pep Serum Total Protein Total Protein Albumin Cholesterol LDL Cholesterol Direct HDL Cholesterol PTH Intact Arterial Blood Glucose Urine WBC (Auto) Urine Creatinine Valproic Acid Heparin-induced Plt Ab Lymph Enumerat CD4/CD8 Absolute CD3 Count Absolute CD4 Count % CD8 Cells Absolute CD8 Count Absolute CD19 Count Coronavirus (PCR) HIV-1 RNA PCR copies/ml HIV-1 RNA (PCR) log 09/24/20 09/25/20 09/25/20 23:34 06:40 06:40 WBC RBC Hgb Hct MCV MCH MCHC RDW Plt Count Lymph % (Auto) [place] % (Auto) Lymph # (Auto) [place] # (Auto) Seg Neutrophils % Seg Neuts % (Manual) Lymphocytes % (Manual) Monocytes % (Manual) Nucleated RBC % Seg Neutrophils # Seg Neutrophils # Man Abs Lymphs (Manual) Lymphocytes # (Manual) PT INR APTT D-Dimer Heparin Anti-Xa Level ABG pH POC ABG pCO2 POC ABG pO2 ABG Oxyhemoglobin ABG Sodium ABG Potassium ABG Glucose Carboxyhemoglobin Sodium Potassium Chloride 109.0 H Carbon Dioxide BUN 98 H Creatinine 3.0 H 3.0 H Glucose 111 H POC Glucose 113 H Calcium Phosphorus Ferritin Total Bilirubin AST ALT Alkaline Phosphatase Lactate Dehydrogenase Total Creatine Kinase Troponin T C-Reactive Protein NT-Pro-B Natriuret Pep Serum Total Protein Total Protein Albumin Cholesterol LDL Cholesterol Direct HDL Cholesterol PTH Intact Arterial Blood Glucose Urine WBC (Auto) Urine Creatinine Valproic Acid Heparin-induced Plt Ab Lymph Enumerat CD4/CD8 Absolute CD3 Count Absolute CD4 Count % CD8 Cells Absolute CD8 Count Absolute CD19 Count Coronavirus (PCR) HIV-1 RNA PCR copies/ml HIV-1 RNA (PCR) log 09/25/20 09/25/20 09/25/20 10:45 12:45 18:03 WBC 20.7 H RBC 3.33 L Hgb 10.2 L Hct 31.3 L MCV MCH MCHC RDW Plt Count 139 L Lymph % (Auto) [place] % (Auto) Lymph # (Auto) [place] # (Auto) Seg Neutrophils % Seg Neuts % (Manual) Lymphocytes % (Manual) Monocytes % (Manual) Nucleated RBC % Seg Neutrophils # Seg Neutrophils # Man Abs Lymphs (Manual) Lymphocytes # (Manual) PT INR APTT D-Dimer Heparin Anti-Xa Level ABG pH POC ABG pCO2 POC ABG pO2 ABG Oxyhemoglobin ABG Sodium ABG Potassium ABG Glucose Carboxyhemoglobin Sodium Potassium Chloride Carbon Dioxide BUN Creatinine Glucose POC Glucose 108 H 114 H Calcium Phosphorus Ferritin Total Bilirubin AST ALT Alkaline Phosphatase Lactate Dehydrogenase Total Creatine Kinase Troponin T C-Reactive Protein NT-Pro-B Natriuret Pep Serum Total Protein Total Protein Albumin Cholesterol LDL Cholesterol Direct HDL Cholesterol PTH Intact Arterial Blood Glucose Urine WBC (Auto) Urine Creatinine Valproic Acid Heparin-induced Plt Ab Lymph Enumerat CD4/CD8 Absolute CD3 Count Absolute CD4 Count % CD8 Cells Absolute CD8 Count Absolute CD19 Count Coronavirus (PCR) HIV-1 RNA PCR copies/ml HIV-1 RNA (PCR) log 09/25/20 09/26/20 09/26/20 23:29 05:00 07:06 WBC 17.0 H RBC 3.10 L Hgb 9.6 L Hct 28.8 L MCV MCH MCHC RDW Plt Count Lymph % (Auto) [place] % (Auto) Lymph # (Auto) [place] # (Auto) Seg Neutrophils % Seg Neuts % (Manual) Lymphocytes % (Manual) Monocytes % (Manual) Nucleated RBC % Seg Neutrophils # Seg Neutrophils # Man Abs Lymphs (Manual) Lymphocytes # (Manual) PT INR APTT D-Dimer Heparin Anti-Xa Level ABG pH POC ABG pCO2 POC ABG pO2 ABG Oxyhemoglobin ABG Sodium ABG Potassium ABG Glucose Carboxyhemoglobin Sodium Potassium Chloride Carbon Dioxide BUN Creatinine Glucose POC Glucose 111 H 115 H Calcium Phosphorus Ferritin Total Bilirubin AST ALT Alkaline Phosphatase Lactate Dehydrogenase Total Creatine Kinase Troponin T C-Reactive Protein NT-Pro-B Natriuret Pep Serum Total Protein Total Protein Albumin Cholesterol LDL Cholesterol Direct HDL Cholesterol PTH Intact Arterial Blood Glucose Urine WBC (Auto) Urine Creatinine Valproic Acid Heparin-induced Plt Ab Lymph Enumerat CD4/CD8 Absolute CD3 Count Absolute CD4 Count % CD8 Cells Absolute CD8 Count Absolute CD19 Count Coronavirus (PCR) HIV-1 RNA PCR copies/ml HIV-1 RNA (PCR) log 09/26/20 09/26/2021 07:06 17:26 04:00 WBC RBC Hgb Hct MCV MCH MCHC RDW Plt Count Lymph % (Auto) [place] % (Auto) Lymph # (Auto) [place] # (Auto) Seg Neutrophils % Seg Neuts % (Manual) Lymphocytes % (Manual) Monocytes % (Manual) Nucleated RBC % Seg Neutrophils # Seg Neutrophils # Man Abs Lymphs (Manual) Lymphocytes # (Manual) PT INR APTT D-Dimer Heparin Anti-Xa Level ABG pH POC ABG pCO2 POC ABG pO2 ABG Oxyhemoglobin ABG Sodium ABG Potassium ABG Glucose Carboxyhemoglobin Sodium Potassium Chloride Carbon Dioxide BUN 69 H 67 H Creatinine 2.2 H 2.3 H Glucose 107 H 121 H POC Glucose 124 H Calcium Phosphorus Ferritin Total Bilirubin AST ALT Alkaline Phosphatase Lactate Dehydrogenase Total Creatine Kinase Troponin T C-Reactive Protein NT-Pro-B Natriuret Pep Serum Total Protein Total Protein Albumin Cholesterol LDL Cholesterol Direct HDL Cholesterol PTH Intact Arterial Blood Glucose Urine WBC (Auto) Urine Creatinine Valproic Acid Heparin-induced Plt Ab Lymph Enumerat CD4/CD8 Absolute CD3 Count Absolute CD4 Count % CD8 Cells Absolute CD8 Count Absolute CD19 Count Coronavirus (PCR) HIV-1 RNA PCR copies/ml HIV-1 RNA (PCR) log 09/27/20 09/27/20 09/27/20 04:00 05:00 17:11 WBC 14.6 H RBC 2.72 L Hgb 8.6 L Hct 25.8 L MCV 95 H MCH MCHC RDW Plt Count Lymph % (Auto) 4.3 L [place] % (Auto) Lymph # (Auto) 0.6 L [place] # (Auto) 0.9 H Seg Neutrophils % 89.6 H Seg Neuts % (Manual) Lymphocytes % (Manual) Monocytes % (Manual) Nucleated RBC % Seg Neutrophils # 13.1 H Seg Neutrophils # Man Abs Lymphs (Manual) Lymphocytes # (Manual) PT INR APTT D-Dimer Heparin Anti-Xa Level ABG pH POC ABG pCO2 POC ABG pO2 ABG Oxyhemoglobin ABG Sodium ABG Potassium ABG Glucose Carboxyhemoglobin Sodium Potassium Chloride Carbon Dioxide BUN Creatinine 2.4 H Glucose POC Glucose 132 H Calcium Phosphorus Ferritin Total Bilirubin AST ALT Alkaline Phosphatase Lactate Dehydrogenase Total Creatine Kinase Troponin T C-Reactive Protein NT-Pro-B Natriuret Pep Serum Total Protein Total Protein Albumin Cholesterol LDL Cholesterol Direct HDL Cholesterol PTH Intact Arterial Blood Glucose Urine WBC (Auto) Urine Creatinine Valproic Acid Heparin-induced Plt Ab Lymph Enumerat CD4/CD8 Absolute CD3 Count Absolute CD4 Count % CD8 Cells Absolute CD8 Count Absolute CD19 Count Coronavirus (PCR) HIV-1 RNA PCR copies/ml HIV-1 RNA (PCR) log 09/28/20 09/28/20 09/29/20 04:46 04:46 04:45 WBC 14.6 H RBC 2.66 L Hgb 8.4 L Hct 25.3 L MCV 95 H MCH MCHC RDW Plt Count Lymph % (Auto) [place] % (Auto) Lymph # (Auto) [place] # (Auto) Seg Neutrophils % Seg Neuts % (Manual) Lymphocytes % (Manual) Monocytes % (Manual) Nucleated RBC % Seg Neutrophils # Seg Neutrophils # Man Abs Lymphs (Manual) Lymphocytes # (Manual) PT INR APTT D-Dimer Heparin Anti-Xa Level ABG pH POC ABG pCO2 POC ABG pO2 ABG Oxyhemoglobin ABG Sodium ABG Potassium ABG Glucose Carboxyhemoglobin Sodium Potassium Chloride Carbon Dioxide BUN 71 H 63 H Creatinine 2.3 H 2.2 H Glucose 105 H POC Glucose Calcium Phosphorus Ferritin Total Bilirubin AST ALT Alkaline Phosphatase Lactate Dehydrogenase Total Creatine Kinase Troponin T C-Reactive Protein NT-Pro-B Natriuret Pep Serum Total Protein Total Protein Albumin Cholesterol LDL Cholesterol Direct HDL Cholesterol PTH Intact Arterial Blood Glucose Urine WBC (Auto) Urine Creatinine Valproic Acid Heparin-induced Plt Ab Lymph Enumerat CD4/CD8 Absolute CD3 Count Absolute CD4 Count % CD8 Cells Absolute CD8 Count Absolute CD19 Count Coronavirus (PCR) HIV-1 RNA PCR copies/ml HIV-1 RNA (PCR) log 09/29/20 09/29/20 09/29/20 04:45 05:43 17:50 WBC RBC 2.92 L Hgb 9.6 L Hct 28.1 L MCV 96 H MCH 33 H MCHC RDW Plt Count Lymph % (Auto) [place] % (Auto) Lymph # (Auto) [place] # (Auto) Seg Neutrophils % Seg Neuts % (Manual) Lymphocytes % (Manual) Monocytes % (Manual) Nucleated RBC % Seg Neutrophils # Seg Neutrophils # Man Abs Lymphs (Manual) Lymphocytes # (Manual) PT INR APTT D-Dimer Heparin Anti-Xa Level ABG pH POC ABG pCO2 POC ABG pO2 ABG Oxyhemoglobin ABG Sodium ABG Potassium ABG Glucose Carboxyhemoglobin Sodium Potassium Chloride Carbon Dioxide BUN Creatinine Glucose POC Glucose 69 L 132 H Calcium Phosphorus Ferritin Total Bilirubin AST ALT Alkaline Phosphatase Lactate Dehydrogenase Total Creatine Kinase Troponin T C-Reactive Protein NT-Pro-B Natriuret Pep Serum Total Protein Total Protein Albumin Cholesterol LDL Cholesterol Direct HDL Cholesterol PTH Intact Arterial Blood Glucose Urine WBC (Auto) Urine Creatinine Valproic Acid Heparin-induced Plt Ab Lymph Enumerat CD4/CD8 Absolute CD3 Count Absolute CD4 Count % CD8 Cells Absolute CD8 Count Absolute CD19 Count Coronavirus (PCR) HIV-1 RNA PCR copies/ml HIV-1 RNA (PCR) log 09/30/20 09/30/20 09/30/20 04:47 04:47 04:47 WBC RBC 2.47 L Hgb 8.1 L Hct 23.9 L MCV 97 H MCH 33 H MCHC RDW Plt Count Lymph % (Auto) [place] % (Auto) Lymph # (Auto) [place] # (Auto) Seg Neutrophils % Seg Neuts % (Manual) Lymphocytes % (Manual) Monocytes % (Manual) Nucleated RBC % Seg Neutrophils # Seg Neutrophils # Man Abs Lymphs (Manual) Lymphocytes # (Manual) PT INR APTT D-Dimer Heparin Anti-Xa Level ABG pH POC ABG pCO2 POC ABG pO2 ABG Oxyhemoglobin ABG Sodium ABG Potassium ABG Glucose Carboxyhemoglobin Sodium Potassium Chloride Carbon Dioxide 31 H BUN 63 H Creatinine 2.1 H Glucose POC Glucose Calcium Phosphorus Ferritin Total Bilirubin AST ALT Alkaline Phosphatase Lactate Dehydrogenase Total Creatine Kinase Troponin T C-Reactive Protein NT-Pro-B Natriuret Pep Serum Total Protein 5.5 L Total Protein 5.9 L Albumin 2.2 L 2.1 L Cholesterol LDL Cholesterol Direct HDL Cholesterol PTH Intact Arterial Blood Glucose Urine WBC (Auto) Urine Creatinine Valproic Acid Heparin-induced Plt Ab Lymph Enumerat CD4/CD8 Absolute CD3 Count Absolute CD4 Count % CD8 Cells Absolute CD8 Count Absolute CD19 Count Coronavirus (PCR) HIV-1 RNA PCR copies/ml HIV-1 RNA (PCR) log 10/01/20 10/01/20 10/02/20 07:16 08:30 05:10 WBC RBC Hgb Hct MCV MCH MCHC RDW Plt Count Lymph % (Auto) [place] % (Auto) Lymph # (Auto) [place] # (Auto) Seg Neutrophils % Seg Neuts % (Manual) Lymphocytes % (Manual) Monocytes % (Manual) Nucleated RBC % Seg Neutrophils # Seg Neutrophils # Man Abs Lymphs (Manual) Lymphocytes # (Manual) PT INR APTT D-Dimer Heparin Anti-Xa Level ABG pH POC ABG pCO2 POC ABG pO2 ABG Oxyhemoglobin ABG Sodium ABG Potassium ABG Glucose Carboxyhemoglobin Sodium Potassium Chloride Carbon Dioxide BUN 58 H 48 H Creatinine 2.2 H 2.0 H Glucose POC Glucose Calcium Phosphorus Ferritin Total Bilirubin AST ALT Alkaline Phosphatase Lactate Dehydrogenase Total Creatine Kinase Troponin T C-Reactive Protein NT-Pro-B Natriuret Pep Serum Total Protein Total Protein Albumin Cholesterol LDL Cholesterol Direct HDL Cholesterol PTH Intact Arterial Blood Glucose Urine WBC (Auto) Urine Creatinine Valproic Acid Heparin-induced Plt Ab Lymph Enumerat CD4/CD8 Absolute CD3 Count Absolute CD4 Count % CD8 Cells Absolute CD8 Count Absolute CD19 Count Coronavirus (PCR) Positive A HIV-1 RNA PCR copies/ml HIV-1 RNA (PCR) log 10/03/20 10/03/20 10/04/20 08:12 08:12 18:19 WBC RBC Hgb Hct MCV MCH MCHC RDW Plt Count Lymph % (Auto) [place] % (Auto) Lymph # (Auto) [place] # (Auto) Seg Neutrophils % Seg Neuts % (Manual) Lymphocytes % (Manual) Monocytes % (Manual) Nucleated RBC % Seg Neutrophils # Seg Neutrophils # Man Abs Lymphs (Manual) Lymphocytes # (Manual) PT INR APTT D-Dimer Heparin Anti-Xa Level ABG pH POC ABG pCO2 POC ABG pO2 ABG Oxyhemoglobin ABG Sodium ABG Potassium ABG Glucose Carboxyhemoglobin Sodium Potassium 5.4 H D Chloride Carbon Dioxide BUN 48 H 39 H Creatinine 2.2 H 2.7 H Glucose POC Glucose Calcium 8.0 L Phosphorus Ferritin Total Bilirubin AST ALT Alkaline Phosphatase Lactate Dehydrogenase Total Creatine Kinase Troponin T C-Reactive Protein NT-Pro-B Natriuret Pep Serum Total Protein Total Protein Albumin Cholesterol LDL Cholesterol Direct HDL Cholesterol PTH Intact Arterial Blood Glucose Urine WBC (Auto) Urine Creatinine Valproic Acid 17.8 L Heparin-induced Plt Ab Lymph Enumerat CD4/CD8 Absolute CD3 Count Absolute CD4 Count % CD8 Cells Absolute CD8 Count Absolute CD19 Count Coronavirus (PCR) HIV-1 RNA PCR copies/ml HIV-1 RNA (PCR) log 10/04/20 10/05/20 10/05/20 18:19 07:14 07:14 WBC RBC 2.44 L 2.36 L Hgb 8.0 L 7.8 L Hct 24.0 L 23.3 L MCV 98 H 99 H MCH 33 H 33 H MCHC RDW 15.6 H 16.0 H Plt Count Lymph % (Auto) [place] % (Auto) Lymph # (Auto) [place] # (Auto) Seg Neutrophils % Seg Neuts % (Manual) Lymphocytes % (Manual) Monocytes % (Manual) Nucleated RBC % Seg Neutrophils # Seg Neutrophils # Man Abs Lymphs (Manual) Lymphocytes # (Manual) PT INR APTT D-Dimer Heparin Anti-Xa Level ABG pH POC ABG pCO2 POC ABG pO2 ABG Oxyhemoglobin ABG Sodium ABG Potassium ABG Glucose Carboxyhemoglobin Sodium Potassium Chloride Carbon Dioxide BUN 36 H Creatinine 2.5 H Glucose POC Glucose Calcium Phosphorus Ferritin Total Bilirubin AST ALT Alkaline Phosphatase Lactate Dehydrogenase Total Creatine Kinase Troponin T C-Reactive Protein NT-Pro-B Natriuret Pep Serum Total Protein Total Protein Albumin Cholesterol LDL Cholesterol Direct HDL Cholesterol PTH Intact Arterial Blood Glucose Urine WBC (Auto) Urine Creatinine Valproic Acid Heparin-induced Plt Ab Lymph Enumerat CD4/CD8 Absolute CD3 Count Absolute CD4 Count % CD8 Cells Absolute CD8 Count Absolute CD19 Count Coronavirus (PCR) HIV-1 RNA PCR copies/ml HIV-1 RNA (PCR) log 10/06/20 10/06/20 10/07/20 08:04 Unknown 06:45 WBC RBC 2.38 L Hgb 7.9 L Hct 23.2 L MCV 98 H MCH 33 H MCHC RDW 15.4 H Plt Count Lymph % (Auto) [place] % (Auto) Lymph # (Auto) [place] # (Auto) Seg Neutrophils % Seg Neuts % (Manual) Lymphocytes % (Manual) Monocytes % (Manual) Nucleated RBC % Seg Neutrophils # Seg Neutrophils # Man Abs Lymphs (Manual) Lymphocytes # (Manual) PT INR APTT D-Dimer Heparin Anti-Xa Level ABG pH POC ABG pCO2 POC ABG pO2 ABG Oxyhemoglobin ABG Sodium ABG Potassium ABG Glucose Carboxyhemoglobin Sodium Potassium 3.5 L Chloride 107.2 H Carbon Dioxide BUN 30 H Creatinine 2.2 H Glucose POC Glucose Calcium Phosphorus Ferritin Total Bilirubin AST ALT Alkaline Phosphatase Lactate Dehydrogenase Total Creatine Kinase Troponin T C-Reactive Protein NT-Pro-B Natriuret Pep Serum Total Protein Total Protein Albumin Cholesterol LDL Cholesterol Direct HDL Cholesterol PTH Intact Arterial Blood Glucose Urine WBC (Auto) Urine Creatinine Valproic Acid Heparin-induced Plt Ab Lymph Enumerat CD4/CD8 Absolute CD3 Count Absolute CD4 Count % CD8 Cells Absolute CD8 Count Absolute CD19 Count Coronavirus (PCR) Positive A HIV-1 RNA PCR copies/ml HIV-1 RNA (PCR) log 10/07/20 10/08/20 10/10/20 06:45 20:19 06:57 WBC RBC Hgb Hct MCV MCH MCHC RDW Plt Count Lymph % (Auto) [place] % (Auto) Lymph # (Auto) [place] # (Auto) Seg Neutrophils % Seg Neuts % (Manual) Lymphocytes % (Manual) Monocytes % (Manual) Nucleated RBC % Seg Neutrophils # Seg Neutrophils # Man Abs Lymphs (Manual) Lymphocytes # (Manual) PT INR APTT D-Dimer Heparin Anti-Xa Level ABG pH POC ABG pCO2 POC ABG pO2 ABG Oxyhemoglobin ABG Sodium ABG Potassium ABG Glucose Carboxyhemoglobin Sodium 135 L Potassium 3.5 L Chloride Carbon Dioxide BUN 28 H 22 H Creatinine 2.2 H 2.0 H 2.0 H Glucose POC Glucose Calcium Phosphorus Ferritin Total Bilirubin AST ALT Alkaline Phosphatase Lactate Dehydrogenase Total Creatine Kinase Troponin T C-Reactive Protein NT-Pro-B Natriuret Pep Serum Total Protein Total Protein Albumin Cholesterol LDL Cholesterol Direct HDL Cholesterol PTH Intact Arterial Blood Glucose Urine WBC (Auto) Urine Creatinine Valproic Acid Heparin-induced Plt Ab Lymph Enumerat CD4/CD8 Absolute CD3 Count Absolute CD4 Count % CD8 Cells Absolute CD8 Count Absolute CD19 Count Coronavirus (PCR) HIV-1 RNA PCR copies/ml HIV-1 RNA (PCR) log 10/11/20 10/12/20 10/12/20 07:29 05:48 13:42 WBC RBC 2.42 L Hgb 8.1 L Hct 23.5 L MCV 97 H MCH 34 H MCHC 35 H RDW 16.1 H Plt Count Lymph % (Auto) [place] % (Auto) Lymph # (Auto) [place] # (Auto) Seg Neutrophils % Seg Neuts % (Manual) Lymphocytes % (Manual) Monocytes % (Manual) Nucleated RBC % Seg Neutrophils # Seg Neutrophils # Man Abs Lymphs (Manual) Lymphocytes # (Manual) 1.1 L PT INR APTT D-Dimer Heparin Anti-Xa Level ABG pH POC ABG pCO2 POC ABG pO2 ABG Oxyhemoglobin ABG Sodium ABG Potassium ABG Glucose Carboxyhemoglobin Sodium 136 L Potassium Chloride Carbon Dioxide BUN 21 H Creatinine 2.0 H 1.9 H Glucose POC Glucose Calcium 8.3 L Phosphorus Ferritin Total Bilirubin AST ALT Alkaline Phosphatase Lactate Dehydrogenase Total Creatine Kinase Troponin T C-Reactive Protein NT-Pro-B Natriuret Pep Serum Total Protein Total Protein Albumin Cholesterol LDL Cholesterol Direct HDL Cholesterol PTH Intact Arterial Blood Glucose Urine WBC (Auto) Urine Creatinine Valproic Acid Heparin-induced Plt Ab Lymph Enumerat CD4/CD8 Absolute CD3 Count Absolute CD4 Count % CD8 Cells Absolute CD8 Count Absolute CD19 Count Coronavirus (PCR) HIV-1 RNA PCR copies/ml HIV-1 RNA (PCR) log 10/13/20 06:35 WBC RBC Hgb Hct MCV MCH MCHC RDW Plt Count Lymph % (Auto) [place] % (Auto) Lymph # (Auto) [place] # (Auto) Seg Neutrophils % Seg Neuts % (Manual) Lymphocytes % (Manual) Monocytes % (Manual) Nucleated RBC % Seg Neutrophils # Seg Neutrophils # Man Abs Lymphs (Manual) Lymphocytes # (Manual) PT INR APTT D-Dimer Heparin Anti-Xa Level ABG pH POC ABG pCO2 POC ABG pO2 ABG Oxyhemoglobin ABG Sodium ABG Potassium ABG Glucose Carboxyhemoglobin Sodium 135 L Potassium Chloride Carbon Dioxide BUN 22 H Creatinine 1.8 H Glucose POC Glucose Calcium Phosphorus Ferritin Total Bilirubin AST ALT Alkaline Phosphatase Lactate Dehydrogenase Total Creatine Kinase Troponin T C-Reactive Protein NT-Pro-B Natriuret Pep Serum Total Protein Total Protein Albumin Cholesterol LDL Cholesterol Direct HDL Cholesterol PTH Intact Arterial Blood Glucose Urine WBC (Auto) Urine Creatinine Valproic Acid Heparin-induced Plt Ab Lymph Enumerat CD4/CD8 Absolute CD3 Count Absolute CD4 Count % CD8 Cells Absolute CD8 Count Absolute CD19 Count Coronavirus (PCR) HIV-1 RNA PCR copies/ml HIV-1 RNA (PCR) log Allied health notes reviewed: nursing
[2020-10-13] MEDS: HALOPERIDOL LACTATE 5 MG/1 ML INJ IM PRN (19:38)
[2020-10-14] MEDS: HALOPERIDOL LACTATE 5 MG/1 ML INJ IM PRN ×2 (03:56→15:33)
[2020-10-14 06:22] LABS: Calcium 8.5 mg/dL (8.4-10.2)
[2020-10-14] MEDS ORDERED: SODIUM CHLORIDE 0.9% 500 ML 500 ML IV ONE (08:00)
[2020-10-14] MEDS: MIDODRINE 5 MG TAB PO SCH ×3 (08:08→19:39)
[2020-10-14] MEDS: ZINC SULFATE 220 MG CAP PO SCH (09:17)
[2020-10-14] MEDS: FAMOTIDINE 20 MG TAB PO SCH (09:17)
[2020-10-14] MEDS: VALPROIC ACID 250 MG CAP PO SCH (09:17)
[2020-10-14] MEDS: TAMSULOSIN 0.4 MG CAP PO SCH (09:17)
[2020-10-14] MEDS: DOCUSATE SODIUM 100 MG/10 ML ORAL LIQD PO SCH ×2 (09:17→22:57)
[2020-10-14] MEDS: ASCORBIC ACID 500 MG TAB PO SCH ×2 (09:17→22:54)
[2020-10-14] MEDS: APIXABAN 5 MG TAB PO SCH ×2 (09:17→22:56)
[2020-10-14] MEDS: CHOLECALCIFEROL (VIT D3) 1000 UNIT (25 mcg) TAB PO SCH (09:17)
[2020-10-14] MEDS: DOLUTEGRAVIR 50 MG TAB PO SCH (09:18)
[2020-10-14] MEDS ORDERED: POTASSIUM CHLORIDE ER 20 MEQ TAB PO NR (09:30)
--- NOTE | 2020-10-14 09:50 | Progress Note ---
Assessment and Plan Assessment and plan: This is 70-year-old male with HIV, HTN, and atrial fibrillation (currently on therapeutic anticoagulation with Xarelto) presents the emergency department on 09/17 with complaints of shortness of breath over the past 3 days and on arrival of EMS patient was found to have a pulse oximetry of 85% on room air. He was placed on supplemental oxygenation. Of note patient was admitted on 09/15 with similar complaints and found to have A. fib with RVR, hyponatremia, hypomagnesemia and acute kidney injury and left AMA. He was admitted to the hospital service with atrial fibrillation with RVR, SIRs, metabolic acidosis, acute kidney injury, acute hypoxic respiratory failure, hypotension, and CHF . Cardiology, CCM and nephrology were consulted. 09/18/2020. Await echocardiogram to assess for diastolic versus systolic etiology. Patient with elevated BNP greater than 18,000. Patient apparently was admitted approximately 3 days ago but left AMA. Cardiology consulted for heart failure, A. fib with RVR and elevated troponin. Patient denies chest pain. Also, patient with elevated creatinine of 4.7 with creatinine 2.8 on recent admission. We do not have a previous creatinine as a baseline to compar e. Nephrology consultation pending. Follow-up renal ultrasound. Patient with coagulopathy and INR 3.04. Unsure if patient was on anticoagulation for A. fib. 09/19/2020. Patient likely with vasomotor acute kidney injury in the setting of shock. Follow-up urine studies and renal ultrasound. Creatinine continues to worsen. Nephrology following. Etiology of respiratory failure secondary to hea rt failure with Covid testing pending. Elevated troponin suggestive of NSTEMI. Continue diuresis with Lasix. Continue IV amiodarone for rate control of A. fib with RVR. Continue heparin. Follow-up echocardiogram. Cardiology following. 09/20/2020: This time my examination patient was on BiPAP therapy and now is on nasal cannula. Patient remains on amiodarone drip with heart rate in the 130s t o 140s and vasopressor support with Levophed. Today nephrology will initiate hemodialysis given worsening renal function studies and has stopped diuresis with Lasix. ID resumed antiretroviral therapy and ordered a HIDA scan. Today the patient received a temporary Vas-Cath and is COVID-19 PCR resulted as positive. Patient will be started on vitamin C, vitamin D and zinc and dexamethasone given need for supplemental oxygenation. 09/21: Ecoli UTI and bacteremia and ID has changed him to meropenem, Patient received HD yesterday and patient remains on amiodarone drip. He is off the floor to obtain a HIDA scan. 09/22: HIDA scan did not show acute cholecystitis. Ecoli bacteremia is sensitive to ceftriaxone and ID changed his abx. Mentation is better. BP is liable. Remains on levophed and vasopressin. We started midodrine. HIT panel pending and hem/onc consulted. 09/23: Patient noted to have unequal pupils with left >right, STAT CT head ordered. Nephro will withhold hemodialysis and assess needs as kidney function has gotten better. Patient symptomatically follows commands and is on nasal cannula. Cardiology stopped his Eliquis due to persistent thrombocytopenia. 09/24: Patient remains confused, pupils still unequal. Started on eliquis 2.5 today and he will be transferred to IMCU. 09/25: Patient remains confused, had Bipap overnight, CT abd/pelvis ordered per ID recommendations given persistent leukocytosis. Cr remains unchanged but BUN in rising. Nephrology is on the case. 09/26/2020; patient was confused and on 3 L of oxygen. ID is following the patient and continue with antiretroviral medications, no OI prophylaxis needed. Patient is on IV Rocephin lasted 09/28 per ID recommendation for E. coli bacteremia. ID ordered CT abdomen and pelvis. We will follow the results. Sulaiman wild is being followed by cardiology and they recommend to resume Eliquis with 2.5 mg p.o. twice daily, thrombocytopenia is improving. Patient is on amiodarone and metoprolol. Patient is being followed by nephrology and is on dialysis. Blood pressure was normal this morning. Patient was tachycardic in A. fib with RVR. CT head was normal. Prognosis is guarded. Continue IMCU care. 09/27: Continue IMCU care, still with unresolved Afib, will continue to adjust medications for better control. 09/28: Start Seroquel DUE TO THE AGITATION, Discussed with daughter, will work on getting Afib better controlled. Per daughter the confusion is new, although some improvement noted today. Patient will benefit from SNF 09/29: Seroquel started today as it was not started yesterday, await PT/OT, Continue to monitor mental status, will transfer to Tele. Anticipate discharge when bed available. 09/30: Discussed extensively with the daughter about her clinical condition, Seroquel discontinued as patient did not tolerate, still with low BP responded to Fluids. Hold BB and continue to monitor and redirect. Discussed with Nursing staff. 10/01: Patient seen and examined resting comfortably still with intermittent delirium. Blood pressure has improved although beta-ruddy was held midodrine was given. Will change to Coreg 3.125 with holding parameters on discharge. Per cardiology amiodarone changed to 200 mg daily. Neurology evaluation is still pending. I have initiated placement to a SNF facility and once approved patient can be discharged. Daughter has been updated on medical condition. For now on anticoagulation left in place although outpatient this may be discontinued due to patient's mental status if there is no improvement. 10/02: Neurology evaluated the patient for increased agitation and aggressive behavior and confusion. Exam suggestive of delirium stopped. Due to not tolerating Seroquel, now Geodon trial Haldol however recommended also valproic acid. No overnight issues reported. Continue awaiting SNF placement for continued rehab. Blood pressure has remained stable no further fever recorded. Monitor for any recurrence of the pain in the leg. 10/03: I have asked for a sitter a few days ago unfortunately not as available as a result restraints have been used and reassurances. Will decrease Seroquel to 12.5 twice daily as patient did not tolerate the 25 mg. Continue supportive care blood pressure meds held due to hypotension. Delirium still present delirium preventive methods including keeping the lights on through the night windows shades up discussed with nursing staff. Also discussed with neurologist. 10/04: 70-year-old male admitted to the hospital with hypoxic respiratory failure history of Covid. During hospitalization developed A. fib with RVR status metabolic acidosis and acute kidney injury. Has also been exhibiting some delirium was managed in the ICU and IMCU and subsequently is awaiting placement. He was seen by neurologist delirium of diagnosis secondary to metabolic issues. Seroquel was started initially at 25 mg p.o. twice daily but patient developed hypotension now better improved BP, Continue seroquel 12.5mg po BID seems to have good improvement in mental status. awaiting labs due to noted hyperkalemia yesterday. Repeat covud test for placement. 10/05/2020; patient is pending for placement. Repeat Covid test is negative. Blood pressure is within normal limit. Patient is confused. 10/06/2020; repeat Covid test is negative. Patient is confused. Patient last dialysis was on 09/25, renal function is stable, no need dialysis, nephrology is following. 10/07/2020; Covid test was done yesterday and was positive. Renal function is improving and nephrology is following at this time. Last dialysis was on 09/25. Patient is pending placement. Mental health consulted for confusion. 10/08/2020; patient was calm and cooperative. Patient was on condom cath. Patient was oriented only to self. 10/09/2020; patient was calm and cooperative. Patient was oriented only to self. Renal function is improving. Patient is pending placement. 10/10/2020; pending SNF placement. Patient is stable for discharge. 10/11: Continue supportive care. Awaiting placement. This morning was still confused ambulating saying that he was leaving. No worsening respiratory status noted. Safety precautions and fall precautions discussed extensively with nursing staff 10/12: Continue supportive care, discontinue Cabral Following irrigation. We will check a CBC to ensure no further decreasing H&H. Continue current management patient tolerating diet and completing 100% of his meal per staff. Altered mental status is significantly improved. 10/13: Cabral was discontinued yesterday patient had to be straight cath we will continue to monitor if required repeat straight catheter pulled back Cabral. Blood pressure still low. Outpatient follow-up with urology strongly recommended due to presumed urinary retention although no hydronephrosis is noted. Continue awaiting placement. H&H is stable. 10/14: Cabral placed due to persistent urinary retention, hematuria is resolved, maybe as a result of patient pulling on cabral. He continues to await placement due to severe debility. Patient noted to have low BP, adjusted BB down to BID from TID. will discontinue day time seroquel. Septic Shock Acute hypoxemic respiratory failure 2/2 to volume overload/chf exacerbation Acute systolic heart failure exacerbation Atrial fibrillation with RVR Hematuria- resolved Acute on chronic kidney injury Hypotension Anemia Thrombocytopenia E coli bacteremia E. coli urinary tract infection NSTEMI Elevated Ddimer Leukocytosis HIV, asymptomatic HTN Coagulopathy Transaminitis -Cardiology, CCM, Nephrology, ID, general surgery, heme/onc consulted, appreciate recommendations -09/20 COVID-19 PCR positive -Droplet/isolation precautions -Dexamethasone 6 mg p.o. (09/20-09/30) -Vitamin D, vitamin C, zinc -Vasopressor support with levophed and vasopressin, midodrine -09/17 CXR shows borderline heart size, mild central pulmonary venous congestion -09/17 renal ultrasound shows no acute findings -09/18 echocardiogram shows left ventricle systolic function mildly decreased, LVEF of 40 to 45% with mild concentric left ventricle hypertrophy, trace MR, mild TR, trace OK -09/19 abdominal ultrasound shows large gallstone within the gallbladder, no pericholecystic fluid, gallbladder wall upper limits of normal measuring 3 mm -09/21 HIDA scan shows no evidence of acute cholecystitis -09/21 BLE Dopplar US no evidence for DVT -09/23 CT head shows no acute intracranial hemorrhage or parenchymal abnormality, mild diffuse brain atrophy with commensurate ventricular enlargement which is likely age appropriate, small frontal scalp lipoma measuring 9 mm in thickness, 4 cm in length, and 4 cm in width., Sinuses and mastoid air cells are clear. -09/17 proBNP 71059 -S/p IV Lasix twice daily -09/20 nephrology initiated the patient on dialysis -Pulmonary hygiene -Bipap qhs -09/25 CT abd/pelvis without contrast pending -PO amiodarone -HIV meds per ID -IV abx therapy -HIT pending -Trend CBC, BMP, LFTs DVT/GI prophylaxis: PPI, SCDs to bilateral lower extremities while in bed, no chemical anticoagulation at this time d/t thrombocytopenia Disposition: IMCU History Interval history: This is 70-year-old male with HIV, HTN, and atrial fibrillation (currently on therapeutic anticoagulation with Xarelto) admitted with atrial fibrillation with RVR, SIRs, metabolic acidosis, acute kidney injury, acute hypoxic respiratory failure, hypotension, and CHF Patient seen and examined, clinical improving. Required replacement of Cabral catheter yesterday due to urinary retention Hospitalist Physical - Physical exam Narrative exam: Resting comfortably The patient appeared well nourished and normally developed. Vital signs as documented. Head exam is unremarkable. No scleral icterus . Neck is without jugular venous distension, thyromegaly, or carotid bruits. Lungs are clear to auscultation. Cardiac exam reveals regular rate and Rhythm. Abdominal exam reveals normal bowel sounds, nontender, no organomegaly. : Cabral in, clear suzanne urine Extremities are nonedematous and both femoral and pedal pulses are normal. 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2) L 10/12/20 13:42 Hct 23.5 % (35.5-45.6) L 10/12/20 13:42 MCV 97 fl (84-94) H 10/12/20 13:42 MCH 34 pg (28-32) H 10/12/20 13:42 MCHC 35 % (32-34) H 10/12/20 13:42 RDW 16.1 % (13.2-15.2) H 10/12/20 13:42 Plt Count 192 K/mm3 (140-440) 10/12/20 13:42 Lymph % (Auto) 4.3 % (13.4-35.0) L 09/27/20 04:00 [place] % (Auto) Grader Operator 10/12/20 13:42 Eos % (Auto) 0.1 % (0.0-4.3) 09/27/20 04:00 Baso % (Auto) 0.0 % (0.0-1.8) 09/27/20 04:00 Lymph # (Auto) 0.6 K/mm3 (1.2-5.4) L 09/27/20 04:00 [place] # (Auto) 0.9 K/mm3 (0.0-0.8) H 09/27/20 04:00 Eos # (Auto) 0.0 K/mm3 (0.0-0.4) 09/27/20 04:00 Baso # (Auto) 0.0 K/mm3 (0.0-0.1) 09/27/20 04:00 Add Manual Diff Complete 10/12/20 13:42 Total Counted 100 10/12/20 13:42 Seg Neutrophils % 89.6 % (40.0-70.0) H 09/27/20 04:00 Seg Neuts % (Manual) 69.0 % (40.0-70.0) 10/12/20 13:42 Band Neutrophils % 2.0 % 09/23/20 04:36 Lymphocytes % (Manual) 21.0 % (13.4-35.0) 10/12/20 13:42 Monocytes % (Manual) 6.0 % (0.0-7.3) 10/12/20 13:42 Eosinophils % (Manual) 3.0 % (0.0-4.3) 10/12/20 13:42 Basophils % (Manual) 1.0 % (0.0-1.8) 10/12/20 13:42 Nucleated RBC % Not Reportable 10/12/20 13:42 Seg Neutrophils # 13.1 K/mm3 (1.8-7.7) H 09/27/20 04:00 Seg Neutrophils # Man 3.6 K/mm3 (1.8-7.7) 10/12/20 13:42 Band Neutrophils # 0.0 K/mm3 10/12/20 13:42 Abs Lymphs (Manual) 223 cells/uL (850-3900) L 09/19/20 13:35 Lymphocytes # (Manual) 1.1 K/mm3 (1.2-5.4) L 10/12/20 13:42 Abs React Lymphs (Man) 0.0 K/mm3 10/12/20 13:42 Monocytes # (Manual) 0.3 K/mm3 (0.0-0.8) 10/12/20 13:42 Eosinophils # (Manual) 0.2 K/mm3 (0.0-0.4) 10/12/20 13:42 Basophils # (Manual) 0.1 K/mm3 (0.0-0.1) 10/12/20 13:42 Metamyelocytes # 0.0 K/mm3 10/12/20 13:42 Myelocytes # 0.0 K/mm3 10/12/20 13:42 Promyelocytes # 0.0 K/mm3 10/12/20 13:42 Blast Cells # 0.0 K/mm3 10/12/20 13:42 WBC Morphology Not Reportable 10/12/20 13:42 Hypersegmented Neuts Not Reportable 10/12/20 13:42 Hyposegmented Neuts Not Reportable 10/12/20 13:42 Hypogranular Neuts Not Reportable 10/12/20 13:42 Smudge Cells Not Reportable 10/12/20 13:42 Toxic Granulation Not Reportable 10/12/20 13:42 Toxic Vacuolation Not Reportable 10/12/20 13:42 Dohle Bodies Not Reportable 10/12/20 13:42 Pelger-Huet Anomaly Not Reportable 10/12/20 13:42 Vinh Rods Not Reportable 10/12/20 13:42 Platelet Estimate Consistent w auto 10/12/20 13:42 Clumped Platelets Not Reportable 10/12/20 13:42 Plt Clumps, EDTA Not Reportable 10/12/20 13:42 Large Platelets Not Reportable 10/12/20 13:42 Giant Platelets Not Reportable 10/12/20 13:42 Platelet Satelliting Not Reportable 10/12/20 13:42 Plt Morphology Comment Not Reportable 10/12/20 13:42 RBC Morphology Normal 10/12/20 13:42 Dimorphic RBCs Not Reportable 10/12/20 13:42 Polychromasia Not Reportable 10/12/20 13:42 Hypochromasia Not Reportable 10/12/20 13:42 Poikilocytosis Not Reportable 10/12/20 13:42 Anisocytosis Not Reportable 10/12/20 13:42 Microcytosis Not Reportable 10/12/20 13:42 Macrocytosis Not Reportable 10/12/20 13:42 Spherocytes Not Reportable 10/12/20 13:42 Pappenheimer Bodies Not Reportable 10/12/20 13:42 Sickle Cells Not Reportable 10/12/20 13:42 Target Cells Not Reportable 10/12/20 13:42 Tear Drop Cells Not Reportable 10/12/20 13:42 Ovalocytes Not Reportable 10/12/20 13:42 Helmet Cells Not Reportable 10/12/20 13:42 [place] Bodies Not Reportable 10/12/20 13:42 [place] Rings Not Reportable 10/12/20 13:42 [place] Cells Not Reportable 10/12/20 13:42 Bite Cells Not Reportable 10/12/20 13:42 Crenated Cell Not Reportable 10/12/20 13:42 Elliptocytes Not Reportable 10/12/20 13:42 Acanthocytes (Spur) Not Reportable 10/12/20 13:42 Rouleaux Not Reportable 10/12/20 13:42 Hemoglobin C Crystals Not Reportable 10/12/20 13:42 Schistocytes Not Reportable 10/12/20 13:42 Malaria parasites Not Reportable 10/12/20 13:42 Zachary Bodies Not Reportable 10/12/20 13:42 Hem Pathologist Commnt No 10/12/20 13:42 PT 15.7 Sec. (12.2-14.9) H 09/24/20 12:13 INR 1.27 (0.87-1.13) H 09/24/20 12:13 APTT 25.7 Sec. (24.2-36.6) 09/24/20 12:13 D-Dimer 1772.86 ng/mlDDU (0-234) H 09/24/20 05:00 Heparin Anti-Xa Level 0.10 U.I./ml (0.3-0.7) L 09/20/20 04:00 Heparin Anti-Xa, Unfract Negative (Negative) 09/22/20 15:12 ABG pH 7.508 (7.320-7.450) H 09/17/20 10:28 POC ABG pCO2 22.8 mmHg (32.0-48.0) L 09/17/20 10:28 POC ABG pO2 66.8 mmHg (83-108) L 09/17/20 10:28 POC ABG HCO3 17.7 09/17/20 10:28 ABG O2 Saturation 93.4 (0-100) 09/17/20 10:28 POC ABG Base Excess -3.5 09/17/20 10:28 ABG Hemoglobin 12.7 (12.0-17.5) 09/17/20 10:28 ABG Oxyhemoglobin 92.7 (94-98) L 09/17/20 10:28 ABG Methemoglobin 0.3 (0.0-1.5) 09/17/20 10:28 ABG Sodium 127.4 mmol/L (136.0-145.0) L 09/17/20 10:28 ABG Potassium 4.7 mmol/L (3.40-4.50) H 09/17/20 10:28 ABG Chloride 101.0 mmol/L (98-107) 09/17/20 10:28 ABG Glucose 121 mg/dL (65-95) H 09/17/20 10:28 Carboxyhemoglobin 0.4 (0.5-1.5) L 09/17/20 10:28 FiO2 % 21 09/17/20 10:28 Sodium 138 mmol/L (137-145) 10/14/20 05:32 Potassium 3.5 mmol/L (3.6-5.0) L 10/14/20 05:32 Chloride 102.3 mmol/L (98-107) 10/14/20 05:32 Carbon Dioxide 27 mmol/L (22-30) 10/14/20 05:32 Anion Gap 12 mmol/L 10/14/20 05:32 BUN 24 mg/dL (9-20) H 10/14/20 05:32 Creatinine 2.2 mg/dL (0.8-1.3) H 10/14/20 05:32 Estimated GFR 36 ml/min 10/14/20 05:32 BUN/Creatinine Ratio 11 % 10/14/20 05:32 Glucose 107 mg/dL (75-100) H 10/14/20 05:32 POC Glucose 103 mg/dL (70-105) 10/12/20 22:33 Lactic Acid 1.00 mmol/L (0.7-2.0) 09/20/20 17:10 Calcium 8.5 mg/dL (8.4-10.2) 10/14/20 05:32 Phosphorus 2.90 mg/dL (2.5-4.5) 09/26/20 07:06 Magnesium 1.70 mg/dL (1.7-2.3) 09/26/20 07:06 Ferritin 1190.0 ng/mL (30.0-300.0) H 09/24/20 05:00 Total Bilirubin 0.80 mg/dL (0.1-1.2) 09/30/20 04:47 AST 14 units/L (5-40) 09/30/20 04:47 ALT 21 units/L (7-56) 09/30/20 04:47 Alkaline Phosphatase 81 units/L (35-129) 09/30/20 04:47 Lactate Dehydrogenase 276 units/L (91-180) H 09/24/20 05:00 Total Creatine Kinase 20 units/L (55-170) L 09/19/20 03:30 Troponin T < 0.010 ng/mL (0.00-0.029) 09/22/20 05:38 C-Reactive Protein 4.20 mg/dL (0.00-1.30) H 09/24/20 05:00 NT-Pro-B Natriuret Pep 37058 pg/mL (0-900) H 09/17/20 10:47 Serum Total Protein 5.5 g/dL (6.1-8.1) L 09/30/20 04:47 Total Protein 5.9 g/dL (6.3-8.2) L 09/30/20 04:47 Albumin 2.1 g/dL (3.8-4.8) L 09/30/20 04:47 Albumin 2.2 g/dL (3.9-5) L 09/30/20 04:47 Albumin/Globulin Ratio 0.6 % 09/30/20 04:47 Qehzm-1-Smxcsagwz 0.3 g/dL (0.2-0.3) 09/30/20 04:47 Pysxi-5-Ymujxmlmx 0.7 g/dL (0.5-0.9) 09/30/20 04:47 Beta Globulins 0.3 g/dL (0.2-0.5) 09/30/20 04:47 Gamma Globulins 1.7 g/dL (0.8-1.7) 09/30/20 04:47 Abnorm Protein Band 1 see below 09/30/20 04:47 PEP Interpretation see below 09/30/20 04:47 Triglycerides 137 mg/dL (2-149) 09/17/20 13:54 Cholesterol 48 mg/dL (50-199) L 09/17/20 13:54 LDL Cholesterol Direct 4 mg/dL (50-130) L 09/17/20 13:54 HDL Cholesterol 9 mg/dL (40-59) L 09/17/20 13:54 Cholesterol/HDL Ratio 5.33 % 09/17/20 13:54 Free PSA See scanned result 09/17/20 17:35 % Free PSA Calc See scanned result 09/17/20 17:35 Total PSA See scanned result 09/17/20 17:35 Serotonin Release Assay See scanned result 09/22/20 15:12 Procalcitonin 2.10 ng/mL (<0.15) 09/25/20 06:40 PTH Intact 161.4 pg/mL (15-65) H 09/19/20 03:30 Arterial Blood Glucose 121 mg/dL (65-95) H 09/17/20 10:28 Arterial Blood Ionized Calcium 5.0 mg/dL (4.6-5.3) 09/17/20 10:28 Urine Color Yellow (Yellow) 09/18/20 12:00 Urine Turbidity Cloudy (Clear) 09/18/20 12:00 Urine pH 5.0 (5.0-7.0) 09/18/20 12:00 Ur Specific [place] 1.009 (1.003-1.030) 09/18/20 12:00 Urine Protein 30 mg/dl mg/dL (Negative) 09/18/20 12:00 Urine Glucose (UA) Neg mg/dL (Negative) 09/18/20 12:00 Urine Ketones Neg mg/dL (Negative) 09/18/20 12:00 Urine Blood Sm (Negative) 09/18/20 12:00 Urine Nitrite Neg (Negative) 09/18/20 12:00 Urine Bilirubin Neg (Negative) 09/18/20 12:00 Urine Urobilinogen < 2.0 mg/dL (<2.0) 09/18/20 12:00 Ur Leukocyte Esterase Mod (Negative) 09/18/20 12:00 Urine WBC (Auto) 71.0 /HPF (0.0-6.0) H 09/18/20 12:00 Urine RBC (Auto) 2.0 /HPF (0.0-6.0) 09/18/20 12:00 U Epithel Cells (Auto) 1.0 /HPF (0-13.0) 09/18/20 12:00 Urine Bacteria (Auto) 4+ /HPF (Negative) 09/18/20 12:00 Urine WBC Clumps 2+ /HPF 09/18/20 12:00 Hyaline Casts 3 /LPF 09/18/20 12:00 Granular Casts 3 /LPF 09/18/20 12:00 Urine Mucus Few /HPF 09/18/20 12:00 Urine Eosinophils None seen (None Seen) 09/19/20 03:15 Urine Creatinine 61.0 mg/dL (0.1-20.0) H 09/18/20 12:00 Urine Sodium 62 mmol/L 09/18/20 12:00 Random Vancomycin 12.7 ug/mL (0-40.0) 09/19/20 03:30 Valproic Acid 17.8 ug/mL (50-100) L 10/03/20 08:12 Heparin-induced Plt Ab Weak positive (Negative) H 09/22/20 15:12 UF Heparin High Dose 0 % Release 09/22/20 15:12 [place] UFH Low Dose 0.1 0 % Release 09/22/20 15:12 [place] UFH Low Dose 0.5 0 % Release 09/22/20 15:12 Lymph Enumerat CD4/CD8 0.70 (0.86-5.00) L 09/19/20 13:35 % CD3 Cells 79 % (57-85) 09/19/20 13:35 Absolute CD3 Count 175 cells/uL (840-3060) L 09/19/20 13:35 % CD4 Cells 31 % (30-61) 09/19/20 13:35 Absolute CD4 Count 70 cells/uL (490-1740) L 09/19/20 13:35 % CD8 Cells 45 % (12-42) H 09/19/20 13:35 Absolute CD8 Count 101 cells/uL (180-1170) L 09/19/20 13:35 % CD19 Cells 12 % (6-29) 09/19/20 13:35 Absolute CD19 Count 26 cells/uL (110-660) L 09/19/20 13:35 C. difficile Tox (PCR) Negative (Negative) 10/09/20 15:15 Coronavirus (PCR) Positive (Negative) A 10/06/20 Unknown Hepatitis A IgM Ab Non-reactive (NonReactive) 09/20/20 17:10 Hep Bs Antigen Non-reactive (Negative) 09/20/20 17:10 Hep B Core IgM Ab Non-reactive (NonReactive) 09/20/20 17:10 Hepatitis C Antibody Non-reactive (NonReactive) 09/20/20 17:10 HIV-1 RNA PCR copies/ml 67 Copies/mL H 09/19/20 13:35 HIV-1 RNA (PCR) log 1.83 Log cps/mL H 09/19/20 13:35 Cabral/IV: Voiding Method Indwelling Catheter Active Medications - Current Medications Current Medications: Generic Name Dose Route Start Last Admin Trade Name Freq PRN Reason Stop Dose Admin Acetaminophen 650 mg 09/17/20 13:52 10/13/20 11:55 Acetaminophen 325 Mg Tab PO 650 mg Q4H PRN Administration Pain MILD(1-3)/Fever >100.5/ANGEL Albuterol 2.5 mg 09/17/20 13:52 09/17/20 20:47 Albuterol 2.5 Mg/3 Ml Nebu IH 2.5 mg Q4HRT PRN Administration Shortness Of Breath Amiodarone HCl 200 mg 10/01/20 22:00 10/13/20 21:21 Amiodarone 200 Mg Tab PO 200 mg BID EDIE Administration Lipase/Protease/Amylase 1 each 09/20/20 13:10 Lipase 10,500/Protease 25,000/Amylase 43,750 (Units) Dr Patrick FEEDTUBE PRN PRN For Clogged Feeding Tube Apixaban 5 mg 10/05/20 22:00 10/14/20 09:17 Apixaban 5 Mg Tab PO 5 mg Q12HR EDIE Administration Ascorbic Acid 500 mg 09/20/20 22:00 10/14/20 09:17 Ascorbic Acid 500 Mg Tab PO 500 mg BID EDIE Administration Cholecalciferol 1,000 unit 09/21/20 10:00 10/14/20 09:17 Cholecalciferol (Vit D3) 1000 Unit (25 Mcg) Tab PO 1,000 unit QDAY EDIE Administration Docusate Sodium 100 mg 10/05/20 11:00 10/14/20 09:17 Docusate Sodium 100 Mg/10 Ml Oral Liqd PO Not Given BID EDIE Emtricitabine 200 mg 09/30/20 11:00 10/12/20 11:43 Emtricitabine 200 Mg Cap PO 200 mg Q48H EDIE Administration Famotidine 20 mg 09/24/20 10:00 10/14/20 09:17 Famotidine 20 Mg Tab PO 20 mg DAILY EDIE Administration Haloperidol Lactate 5 mg 10/01/20 11:34 10/14/20 03:56 Haloperidol Lactate 5 Mg/1 Ml Inj IM 5 mg Q6H PRN Administration Agitation Sodium Chloride 1,000 mls @ 50 mls/hr 10/11/20 15:45 10/11/20 17:27 Nacl 0.9% 1000 Ml IV 50 mls/hr DIRECT EDIE Administration Metoprolol Tartrate 12.5 mg 10/14/20 10:00 Metoprolol Tartrate 25 Mg Tab PO BID EDIE Midodrine 10 mg 10/07/20 08:00 10/14/20 08:08 Midodrine 5 Mg Tab PO 10 mg TID@0800,1200,1600 EDIE Administration Ondansetron HCl 4 mg 09/17/20 13:52 Ondansetron 4 Mg/2 Ml Inj IV Q8H PRN Nausea And Vomiting Potassium Chloride 40 meq 10/14/20 09:30 Potassium Chloride Er 20 Meq Tab PO 10/14/20 13:00 ONCE@0930 NR Quetiapine Fumarate 12.5 mg 10/03/20 22:00 10/13/20 21:20 Quetiapine 25 Mg Tab PO 12.5 mg QHS EDIE Administration Simple Syrup 15 ml 09/20/20 13:10 Simple Syrup 15 Ml FEEDTUBE PRN PRN Hypoglycemia Simple Syrup 30 ml 09/20/20 13:10 Simple Syrup 15 Ml FEEDTUBE PRN PRN Hypoglycemia Sodium Bicarbonate 325 mg 09/20/20 13:10 Sodium Bicarbonate 325 Mg Tab FEEDTUBE PRN PRN For Clogged Feeding Tube Sodium Chloride 10 ml 09/17/20 22:00 10/14/20 09:18 Sodium Chloride 0.9% 10 Ml Flush Syringe IV 10 ml BID EDIE Administration Sodium Chloride 10 ml 09/17/20 13:52 10/12/20 10:19 Sodium Chloride 0.9% 10 Ml Flush Syringe IV 10 ml PRN PRN Administration LINE FLUSH Tamsulosin HCl 0.4 mg 10/07/20 13:00 10/14/20 09:17 Tamsulosin 0.4 Mg Cap PO 0.4 mg QDAY EDIE Administration Tenofovir Disoproxil Fumarate 300 mg 09/30/20 11:00 10/12/20 11:43 Tenofovir 300 Mg Tab PO 300 mg Q48H EDIE Administration Valproic Acid 250 mg 10/03/20 22:00 10/14/20 09:17 Valproic Acid 250 Mg Cap PO 250 mg BID EDIE Administration Zinc Sulfate 220 mg 09/21/20 10:00 10/14/20 09:17 Zinc Sulfate 220 Mg Cap PO 220 mg QDAY EDIE Administration Nutrition/Malnutrition Assess - Dietary Evaluation Nutrition/Malnutrition Findings: Nutrition Notes Start: 09/18/20 11:30 Freq: Status: Active Protocol: Document 10/13/20 12:18 (Rec: 10/13/20 12:22 [id number]) Nutrition Notes Initial or Follow up Reassessment Current Diagnosis Acute Kidney Injury,Sepsis, Hypertension,Heart Failure, Respiratory Failure Other Pertinent Diagnosis COVID-19 (+), AMS, UTI, afib with RVR, HIV (+) Current Diet Pureed Renal Labs/Tests Na 135 BUN 22 Cr 1.8 Pertinent Medications Reviewed Height 6 ft 1 in Weight 88.6 kg [place] Body Weight (kg) 83.63 BMI 25.7 Weight Status Overweight Subjective/Other Information FU for intakes. Per chart, pt eating 75-100% of meals. RN unsure of intake amount but knows pt is eating. Percent of energy/protein needs met: 77%/92% Burn Absent Trauma Absent GI Symptoms None Current % PO Good (75-100%) Minimum of two criteria No Reduced [employer] Strength Measurably Reduced (severe) #2 Nutrition Diagnosis Inadequate oral intake Diagnosis Progress(for reassessment Continues documentation) Is patient on ventilator? No Is Patient Ambulatory and/or Out of Bed No REE-([facility]-confined to bed) 356 Calculation Used for Recommendations [facility] Additional Notes Pro needs: 73 - 88g (1 - 1.2 g /kg 73kg) Fluid needs 1-1.5L/day Nutrition Intervention Change Diet Order: Continue pureed renal diet Add Supplement/Snack (indicate name/kcal [place] BID /protein ) Provides kCal: 850 Provides Protein (gm) 38 Goal #1 Meet at least 75% of estimated kcal and protein needs via PO Goal #2 Weight maintenance/weight gain Anticipated Discharge Needs: Pureed Renal Diet Follow-Up By: 10/19/20 Additional Comments FU for stable intakes and ONS tolerance
[2020-10-14] MEDS: AMIODARONE 200 MG TAB PO SCH ×2 (10:00→22:58)
[2020-10-14] MEDS: METOPROLOL TARTRATE 25 MG TAB PO SCH ×2 (10:00→22:55)
[2020-10-14] MEDS: EMTRICITABINE 200 MG CAP PO SCH (10:33)
[2020-10-14] MEDS: TENOFOVIR 300 MG TAB PO SCH (10:33)
--- NOTE | 2020-10-14 14:15 | Progress Note ---
Assessment and Plan 1. Acute kidney injury: Vasomotor LOLI in the setting of shock. ATN likely. Renal US negative for hydro. Multiple bladder scan negative. Patient required hemodialysis due to significant decline in the renal function. Hemodialysis: 09/20, 09/21, 09/25. Monitor renal function. Creatinine level fluctuates. Gentle IV fluids. Avoid nephrotoxic agents. Meds dosage based on GFR. 2. FEN: Hyperkalemia, improved. Metabolic acidosis, improved, monitor. Monitor volume status and lytes. 3. Acute hypoxic respiratory failure: Covid test positive. Supplemental O2 as needed. 4. Acute CHF: Echocardiogram: EF 40-45%. Appears compensated now. Monitor. 5. Atrial fibrillation with RVR: On Amio and Metoprolol. Followed by Cards. 6. Elevated troponin: Followed by Cards. 7. Coagulopathy: Improving, trend. 8. Shock / Hypotension: Multifactorial, monitor. Off pressors. 9. Elevated Transaminases: Improved. 10. Metabolic encephalopathy: Monitor. 11. HIV. 12. Anemia, POA: Monitor. Subjective: Patient was seen and examined at the bedside. Doing ok. Objective: General appearance: well-developed, appears stated age, appears emaciated, not in distress HEENT: ATNC, L pupil dilated Neck: trachea midline Respiratory: ctab Heart: S1S2, irregular, no murmur Abdomen: soft, normoactive bowel sounds, not tender Integumentary: no obvious rash Ext: no edema Neurologic: alert, conversing, moving extremities Subjective Date of service: 10/14/20 Principal diagnosis: Acute Hypoxemic Resp Failure; COVID-19 infxn; Septic Shock; A-Fib with RVR Objective - Vital Signs Vital signs: Vital Signs - 12hr 10/14/20 10/14/20 10/14/20 05:50 11:47 12:23 Temperature 98.0 F 98.4 F Pulse Rate 37 L 55 L Respiratory 16 20 22 Rate Blood Pressure 82/57 92/55 O2 Sat by Pulse 70 L 97 90 Oximetry - Lab 10/12/20 13:42 10/14/20 05:32 Most recent lab results ABG pH 7.508 (7.320-7.450) H 09/17/20 10:28 ABG O2 Saturation 93.4 (0-100) 09/17/20 10:28 Calcium 8.5 mg/dL (8.4-10.2) 10/14/20 05:32 Phosphorus 2.90 mg/dL (2.5-4.5) 09/26/20 07:06 Magnesium 1.70 mg/dL (1.7-2.3) 09/26/20 07:06 Urine Creatinine 61.0 mg/dL (0.1-20.0) H 09/18/20 12:00 Urine Sodium 62 mmol/L 09/18/20 12:00 Medications & Allergies - Medications Allergies/Adverse Reactions: Allergies heparin Adverse Reaction (Verified 09/29/20 16:33) thrombocytopenia PF4 Home Medications: Home Medications Medication Instructions Recorded Confirmed Last Taken Type AtorvaSTATin [Lipitor] 20 mg PO QHS 09/18/20 09/18/20 Unknown History Dolutegravir [Tivicay] 50 mg PO DAILY 09/18/20 09/18/20 Unknown History Emtricitabine/Tenofov Alafenam 1 tab PO DAILY 09/18/20 09/18/20 Unknown History [Descovy 200-25 mg (Nf)] allopurinoL [Zyloprim] 300 mg PO QDAY 09/18/20 09/18/20 Unknown History Amiodarone [Cordarone 200 MG TAB] 200 mg PO DAILY #60 tablet 10/01/20 Unknown Rx Apixaban [Eliquis] 2.5 mg PO Q12HR #60 tablet 10/01/20 Unknown Rx Ascorbic Acid [Vitamin C] 500 mg PO BID #60 tablet 10/01/20 Unknown Rx Cholecalciferol Vit D3 [Vitamin D3 1,000 unit PO QDAY #30 tablet 10/01/20 Unknown Rx 1,000 UNIT TAB] Famotidine [Pepcid] 20 mg PO DAILY #30 tablet 10/01/20 Unknown Rx Midodrine [Proamatine] 5 mg PO TID@0800,1200,1600 #90 10/01/20 Unknown Rx tablet QUEtiapine [SEROquel] 25 mg PO BID #30 tablet 10/01/20 Unknown Rx Zinc Sulfate 220 mg PO QDAY #30 capsule 10/01/20 Unknown Rx carvediloL [Coreg] 3.125 mg PO BID #60 tablet 10/01/20 Unknown Rx haloperidoL [Haldol] 2 mg PO Q8H PRN #30 tablet 10/01/20 Unknown Rx Active Medications: Generic Name Dose Route Start Last Admin Trade Name Freq PRN Reason Stop Dose Admin Acetaminophen 650 mg 09/17/20 13:52 10/13/20 11:55 Acetaminophen 325 Mg Tab PO 650 mg Q4H PRN Administration Pain MILD(1-3)/Fever >100.5/ANGEL Albuterol 2.5 mg 09/17/20 13:52 09/17/20 20:47 Albuterol 2.5 Mg/3 Ml Nebu IH 2.5 mg Q4HRT PRN Administration Shortness Of Breath Amiodarone HCl 200 mg 10/01/20 22:00 10/13/20 21:21 Amiodarone 200 Mg Tab PO 200 mg BID EDIE Administration Lipase/Protease/Amylase 1 each 09/20/20 13:10 Lipase 10,500/Protease 25,000/Amylase 43,750 (Units) Dr Patrick FEEDTUBE PRN PRN For Clogged Feeding Tube Apixaban 5 mg 10/05/20 22:00 10/14/20 09:17 Apixaban 5 Mg Tab PO 5 mg Q12HR EDIE Administration Ascorbic Acid 500 mg 09/20/20 22:00 10/14/20 09:17 Ascorbic Acid 500 Mg Tab PO 500 mg BID EDIE Administration Cholecalciferol 1,000 unit 09/21/20 10:00 10/14/20 09:17 Cholecalciferol (Vit D3) 1000 Unit (25 Mcg) Tab PO 1,000 unit QDAY EDIE Administration Docusate Sodium 100 mg 10/05/20 11:00 10/14/20 09:17 Docusate Sodium 100 Mg/10 Ml Oral Liqd PO Not Given BID EDIE Emtricitabine 200 mg 09/30/20 11:00 10/14/20 10:33 Emtricitabine 200 Mg Cap PO 200 mg Q48H EDIE Administration Famotidine 20 mg 09/24/20 10:00 10/14/20 09:17 Famotidine 20 Mg Tab PO 20 mg DAILY EDIE Administration Haloperidol Lactate 5 mg 10/01/20 11:34 10/14/20 03:56 Haloperidol Lactate 5 Mg/1 Ml Inj IM 5 mg Q6H PRN Administration Agitation Sodium Chloride 1,000 mls @ 50 mls/hr 10/11/20 15:45 10/11/20 17:27 Nacl 0.9% 1000 Ml IV 50 mls/hr DIRECT EDIE Administration Metoprolol Tartrate 12.5 mg 10/14/20 10:00 Metoprolol Tartrate 25 Mg Tab PO BID EDIE Midodrine 10 mg 10/07/20 08:00 10/14/20 08:08 Midodrine 5 Mg Tab PO 10 mg TID@0800,1200,1600 EDIE Administration Ondansetron HCl 4 mg 09/17/20 13:52 Ondansetron 4 Mg/2 Ml Inj IV Q8H PRN Nausea And Vomiting Quetiapine Fumarate 12.5 mg 10/03/20 22:00 10/13/20 21:20 Quetiapine 25 Mg Tab PO 12.5 mg QHS EDIE Administration Simple Syrup 15 ml 09/20/20 13:10 Simple Syrup 15 Ml FEEDTUBE PRN PRN Hypoglycemia Simple Syrup 30 ml 09/20/20 13:10 Simple Syrup 15 Ml FEEDTUBE PRN PRN Hypoglycemia Sodium Bicarbonate 325 mg 09/20/20 13:10 Sodium Bicarbonate 325 Mg Tab FEEDTUBE PRN PRN For Clogged Feeding Tube Sodium Chloride 10 ml 09/17/20 22:00 10/14/20 09:18 Sodium Chloride 0.9% 10 Ml Flush Syringe IV 10 ml BID EDIE Administration Sodium Chloride 10 ml 09/17/20 13:52 10/12/20 10:19 Sodium Chloride 0.9% 10 Ml Flush Syringe IV 10 ml PRN PRN Administration LINE FLUSH Tamsulosin HCl 0.4 mg 10/07/20 13:00 10/14/20 09:17 Tamsulosin 0.4 Mg Cap PO 0.4 mg QDAY EDIE Administration Tenofovir Disoproxil Fumarate 300 mg 09/30/20 11:00 10/14/20 10:33 Tenofovir 300 Mg Tab PO 300 mg Q48H EDIE Administration Valproic Acid 250 mg 10/03/20 22:00 10/14/20 09:17 Valproic Acid 250 Mg Cap PO 250 mg BID EDIE Administration Zinc Sulfate 220 mg 09/21/20 10:00 10/14/20 09:17 Zinc Sulfate 220 Mg Cap PO 220 mg QDAY EDIE Administration
--- NOTE | 2020-10-14 15:53 | Progress Note ---
Assessment and Plan Acute hypoxemic respiratory failure. Atrial fibrillation with rapid ventricular response. Gram negative bacteremia Acute congestive heart failure exacerbation. Acute on chronic kidney injury. Anemia that is microcytic. Coagulopathy appears to be acquired. Respiratory alkalosis. Mild metabolic acidosis. Possible severe sepsis with shock due to a urinary tract infection. Urinary tract infection (i do feel that despite his CHF history he is septic now and with relative IVVD and will benefit from gentle hydration acutely - advance diet per [employer] - no new issues today, continue care as below; - continue to wean supplemental oxygen for target O2 sat's > 92% acutely - Aspiration precautions - prn bronchodilators with pulmonary hygiene per RT - continue accuchecks with glycemic control per SSI for target blood glucose of < 180 mg/dL; avoid hypoglycemia - avoid nephrotoxins, renally dose all medications - continue to avoid benzodiazepine's, reduce the possibility of delirium - prn analgesia per pain score - Maintenance of sleep-wake cycle, avoid delirium - G.I. & VTE prophylaxis - PT/OT/ROM exercises - continue mobility protocols for pressure ulcer prophylaxis - Monitor hemodynamics closely - continue other care per attending / other consultants - discharge planning ongoing concurrently COVID SPECIFIC INTERVENTIONS - Remdesivir as per ID/Pulmonary developed protocols (not given due to LOLI) - systemic steroids for severe COVID-19 infection (s/p Decadron) - follow repeat COVID tests results - zinc and vitamin C supplementation - Monitor inflammatory markers per facility protocol - ferritin, Ddimer, CRP - therapeutic anticoagulation per system Protocol based on d-dimer and clinical considerations - Continue contact and airborne isolation .... Re-evaluate in am & prn Subjective Date of service: 10/14/20 Principal diagnosis: Acute Hypoxemic Resp Failure; COVID-19 infxn; Septic Shock; A-Fib with RVR Interval history: Patient is seen today for: Acute hypoxemic respiratory failure; A-fib with RVR; AE-CHF; LOLI on CKD; Severe sepsis with shock; UTI Seen and examined at bedside; 24hour events reviewed; nursing and respiratory care staff consulted; no adverse overnight events reported to me; resting peacefully in bed; Objective Vital Signs - 12hr 10/14/20 10/14/20 10/14/20 05:50 11:47 12:23 Temperature 98.0 F 98.4 F Pulse Rate 37 L 55 L Respiratory 16 20 22 Rate Blood Pressure 82/57 92/55 O2 Sat by Pulse 70 L 97 90 Oximetry Constitutional: no acute distress, alert, other (elderly male without increased respiratory effort at rest) Eyes: non-icteric ENT: oropharynx moist Neck: supple, no lymphadenopathy, no JVD Effort: normal Ascultation: Bilateral: clear, rhonchi, other (right SCVL Trialysis catheter) Percussion: Bilateral: not dull Cardiovascular: irregular rhythm Gastrointestinal: normoactive bowel sounds, soft, non-tender, non-distended Integumentary: normal Extremities: no cyanosis, no edema, pulses normal, no ischemia or petechiae Neurologic: non-focal exam (grossly), pupils equal and round, CN II-XII normal, motor strength normal and Psychiatric: mood appropriate, affect normal CBC and BMP: 10/12/20 13:42 10/14/20 05:32 ABG, PT/INR, D-dimer: ABG ABG pH 7.508 (7.320-7.450) H 09/17/20 10:28 POC ABG pCO2 22.8 mmHg (32.0-48.0) L 09/17/20 10:28 POC ABG pO2 66.8 mmHg (83-108) L 09/17/20 10:28 POC ABG HCO3 17.7 09/17/20 10:28 ABG O2 Saturation 93.4 (0-100) 09/17/20 10:28 PT/INR, D-dimer PT 15.7 Sec. (12.2-14.9) H 09/24/20 12:13 INR 1.27 (0.87-1.13) H 09/24/20 12:13 D-Dimer 1772.86 ng/mlDDU (0-234) H 09/24/20 05:00 Abnormal lab findings: Abnormal Labs 09/17/20 09/17/20 09/17/20 10:28 10:47 10:47 WBC 11.1 H RBC 3.44 L Hgb 11.2 L Hct 32.8 L MCV 95 H MCH MCHC RDW Plt Count Lymph % (Auto) [place] % (Auto) Lymph # (Auto) [place] # (Auto) Seg Neutrophils % Seg Neuts % (Manual) Lymphocytes % (Manual) 4.0 L Monocytes % (Manual) Nucleated RBC % Seg Neutrophils # Seg Neutrophils # Man 10.7 H Abs Lymphs (Manual) Lymphocytes # (Manual) 0.4 L PT 32.9 H INR 3.16 H APTT 51.1 H D-Dimer Heparin Anti-Xa Level ABG pH 7.508 H POC ABG pCO2 22.8 L POC ABG pO2 66.8 L ABG Oxyhemoglobin 92.7 L ABG Sodium 127.4 L ABG Potassium 4.7 H ABG Glucose 121 H Carboxyhemoglobin 0.4 L Sodium Potassium Chloride Carbon Dioxide BUN Creatinine Glucose POC Glucose Calcium Phosphorus Ferritin Total Bilirubin AST ALT Alkaline Phosphatase Lactate Dehydrogenase Total Creatine Kinase Troponin T C-Reactive Protein NT-Pro-B Natriuret Pep Serum Total Protein Total Protein Albumin Cholesterol LDL Cholesterol Direct HDL Cholesterol PTH Intact Arterial Blood Glucose 121 H Urine WBC (Auto) Urine Creatinine Valproic Acid Heparin-induced Plt Ab Lymph Enumerat CD4/CD8 Absolute CD3 Count Absolute CD4 Count % CD8 Cells Absolute CD8 Count Absolute CD19 Count Coronavirus (PCR) HIV-1 RNA PCR copies/ml HIV-1 RNA (PCR) log 09/17/20 09/17/20 09/17/20 10:47 10:47 13:54 WBC RBC Hgb Hct MCV MCH MCHC RDW Plt Count Lymph % (Auto) [place] % (Auto) Lymph # (Auto) [place] # (Auto) Seg Neutrophils % Seg Neuts % (Manual) Lymphocytes % (Manual) Monocytes % (Manual) Nucleated RBC % Seg Neutrophils # Seg Neutrophils # Man Abs Lymphs (Manual) Lymphocytes # (Manual) PT INR APTT D-Dimer Heparin Anti-Xa Level ABG pH POC ABG pCO2 POC ABG pO2 ABG Oxyhemoglobin ABG Sodium ABG Potassium ABG Glucose Carboxyhemoglobin Sodium 125 L Potassium Chloride 95.3 L Carbon Dioxide 17 L BUN 64 H Creatinine 4.6 H D Glucose 104 H POC Glucose Calcium Phosphorus Ferritin Total Bilirubin AST 69 H ALT Alkaline Phosphatase Lactate Dehydrogenase Total Creatine Kinase Troponin T 0.061 H D 0.058 H C-Reactive Protein NT-Pro-B Natriuret Pep 56175 H Serum Total Protein Total Protein Albumin 1.9 L Cholesterol 48 L LDL Cholesterol Direct 4 L HDL Cholesterol 9 L PTH Intact Arterial Blood Glucose Urine WBC (Auto) Urine Creatinine Valproic Acid Heparin-induced Plt Ab Lymph Enumerat CD4/CD8 Absolute CD3 Count Absolute CD4 Count % CD8 Cells Absolute CD8 Count Absolute CD19 Count Coronavirus (PCR) HIV-1 RNA PCR copies/ml HIV-1 RNA (PCR) log 09/17/20 09/17/20 09/17/20 16:36 17:35 17:35 WBC RBC 3.25 L Hgb 10.7 L Hct 31.1 L MCV 96 H MCH 33 H MCHC RDW Plt Count Lymph % (Auto) [place] % (Auto) Lymph # (Auto) [place] # (Auto) Seg Neutrophils % Seg Neuts % (Manual) Lymphocytes % (Manual) Monocytes % (Manual) Nucleated RBC % Seg Neutrophils # Seg Neutrophils # Man Abs Lymphs (Manual) Lymphocytes # (Manual) PT 31.9 H INR 3.04 H APTT 50.9 H D-Dimer Heparin Anti-Xa Level ABG pH POC ABG pCO2 POC ABG pO2 ABG Oxyhemoglobin ABG Sodium ABG Potassium ABG Glucose Carboxyhemoglobin Sodium Potassium Chloride Carbon Dioxide BUN Creatinine Glucose POC Glucose Calcium Phosphorus Ferritin Total Bilirubin AST ALT Alkaline Phosphatase Lactate Dehydrogenase Total Creatine Kinase Troponin T 0.057 H C-Reactive Protein NT-Pro-B Natriuret Pep Serum Total Protein Total Protein Albumin Cholesterol LDL Cholesterol Direct HDL Cholesterol PTH Intact Arterial Blood Glucose Urine WBC (Auto) Urine Creatinine Valproic Acid Heparin-induced Plt Ab Lymph Enumerat CD4/CD8 Absolute CD3 Count Absolute CD4 Count % CD8 Cells Absolute CD8 Count Absolute CD19 Count Coronavirus (PCR) HIV-1 RNA PCR copies/ml HIV-1 RNA (PCR) log 09/17/20 09/18/20 09/18/20 17:35 03:19 03:19 WBC RBC 3.32 L Hgb 10.9 L Hct 32.0 L MCV 96 H MCH 33 H MCHC RDW Plt Count 138 L Lymph % (Auto) [place] % (Auto) Lymph # (Auto) [place] # (Auto) Seg Neutrophils % Seg Neuts % (Manual) 95.0 H Lymphocytes % (Manual) 3.0 L Monocytes % (Manual) Nucleated RBC % Seg Neutrophils # Seg Neutrophils # Man 8.1 H Abs Lymphs (Manual) Lymphocytes # (Manual) 0.3 L PT INR APTT D-Dimer Heparin Anti-Xa Level ABG pH POC ABG pCO2 POC ABG pO2 ABG Oxyhemoglobin ABG Sodium ABG Potassium ABG Glucose Carboxyhemoglobin Sodium Potassium Chloride Carbon Dioxide 16 L BUN 70 H Creatinine 4.6 H 4.7 H Glucose 104 H POC Glucose Calcium 8.2 L Phosphorus Ferritin Total Bilirubin 1.60 H AST 128 H ALT 67 H Alkaline Phosphatase Lactate Dehydrogenase Total Creatine Kinase Troponin T C-Reactive Protein NT-Pro-B Natriuret Pep Serum Total Protein Total Protein 5.2 L D Albumin 2.5 L Cholesterol LDL Cholesterol Direct HDL Cholesterol PTH Intact Arterial Blood Glucose Urine WBC (Auto) Urine Creatinine Valproic Acid Heparin-induced Plt Ab Lymph Enumerat CD4/CD8 Absolute CD3 Count Absolute CD4 Count % CD8 Cells Absolute CD8 Count Absolute CD19 Count Coronavirus (PCR) HIV-1 RNA PCR copies/ml HIV-1 RNA (PCR) log 09/18/20 09/18/20 09/18/20 09:39 12:00 12:00 WBC RBC Hgb Hct MCV MCH MCHC RDW Plt Count Lymph % (Auto) [place] % (Auto) Lymph # (Auto) [place] # (Auto) Seg Neutrophils % Seg Neuts % (Manual) Lymphocytes % (Manual) Monocytes % (Manual) Nucleated RBC % Seg Neutrophils # Seg Neutrophils # Man Abs Lymphs (Manual) Lymphocytes # (Manual) PT INR APTT D-Dimer Heparin Anti-Xa Level ABG pH POC ABG pCO2 POC ABG pO2 ABG Oxyhemoglobin ABG Sodium ABG Potassium ABG Glucose Carboxyhemoglobin Sodium Potassium Chloride Carbon Dioxide BUN Creatinine Glucose POC Glucose Calcium Phosphorus Ferritin Total Bilirubin AST ALT Alkaline Phosphatase Lactate Dehydrogenase Total Creatine Kinase Troponin T C-Reactive Protein NT-Pro-B Natriuret Pep Serum Total Protein Total Protein Albumin Cholesterol LDL Cholesterol Direct HDL Cholesterol PTH Intact Arterial Blood Glucose Urine WBC (Auto) 71.0 H Urine Creatinine 61.0 H Valproic Acid Heparin-induced Plt Ab Lymph Enumerat CD4/CD8 Absolute CD3 Count Absolute CD4 Count % CD8 Cells Absolute CD8 Count Absolute CD19 Count Coronavirus (PCR) Positive A HIV-1 RNA PCR copies/ml HIV-1 RNA (PCR) log 09/18/20 09/18/20 09/18/20 15:07 15:07 18:33 WBC RBC Hgb 10.7 L Hct 31.3 L MCV MCH MCHC RDW Plt Count Lymph % (Auto) [place] % (Auto) Lymph # (Auto) [place] # (Auto) Seg Neutrophils % Seg Neuts % (Manual) Lymphocytes % (Manual) Monocytes % (Manual) Nucleated RBC % Seg Neutrophils # Seg Neutrophils # Man Abs Lymphs (Manual) Lymphocytes # (Manual) PT 20.3 H INR 1.73 H APTT 40.8 H D-Dimer Heparin Anti-Xa Level 1.09 H ABG pH POC ABG pCO2 POC ABG pO2 ABG Oxyhemoglobin ABG Sodium ABG Potassium ABG Glucose Carboxyhemoglobin Sodium Potassium Chloride Carbon Dioxide BUN Creatinine Glucose POC Glucose Calcium Phosphorus Ferritin Total Bilirubin AST ALT Alkaline Phosphatase Lactate Dehydrogenase Total Creatine Kinase Troponin T C-Reactive Protein NT-Pro-B Natriuret Pep Serum Total Protein Total Protein Albumin Cholesterol LDL Cholesterol Direct HDL Cholesterol PTH Intact Arterial Blood Glucose Urine WBC (Auto) Urine Creatinine Valproic Acid Heparin-induced Plt Ab Lymph Enumerat CD4/CD8 Absolute CD3 Count Absolute CD4 Count % CD8 Cells Absolute CD8 Count Absolute CD19 Count Coronavirus (PCR) HIV-1 RNA PCR copies/ml HIV-1 RNA (PCR) log 09/19/20 09/19/20 09/19/20 03:30 03:30 03:30 WBC RBC 3.29 L Hgb 10.9 L Hct 30.9 L MCV MCH 33 H MCHC 35 H RDW Plt Count Lymph % (Auto) [place] % (Auto) Lymph # (Auto) [place] # (Auto) Seg Neutrophils % Seg Neuts % (Manual) Lymphocytes % (Manual) Monocytes % (Manual) Nucleated RBC % Seg Neutrophils # Seg Neutrophils # Man Abs Lymphs (Manual) Lymphocytes # (Manual) PT INR APTT D-Dimer Heparin Anti-Xa Level ABG pH POC ABG pCO2 POC ABG pO2 ABG Oxyhemoglobin ABG Sodium ABG Potassium ABG Glucose Carboxyhemoglobin Sodium 133 L Potassium Chloride Carbon Dioxide 17 L BUN 94 H Creatinine 5.0 H Glucose 120 H POC Glucose Calcium Phosphorus 6.30 H Ferritin Total Bilirubin 2.40 H AST 163 H ALT 109 H Alkaline Phosphatase 160 H Lactate Dehydrogenase Total Creatine Kinase 20 L Troponin T C-Reactive Protein NT-Pro-B Natriuret Pep Serum Total Protein Total Protein 6.2 L Albumin 2.0 L Cholesterol LDL Cholesterol Direct HDL Cholesterol PTH Intact 161.4 H Arterial Blood Glucose Urine WBC (Auto) Urine Creatinine Valproic Acid Heparin-induced Plt Ab Lymph Enumerat CD4/CD8 Absolute CD3 Count Absolute CD4 Count % CD8 Cells Absolute CD8 Count Absolute CD19 Count Coronavirus (PCR) HIV-1 RNA PCR copies/ml HIV-1 RNA (PCR) log 09/19/20 09/19/20 09/19/20 06:35 13:35 13:35 WBC RBC Hgb Hct MCV MCH MCHC RDW Plt Count Lymph % (Auto) [place] % (Auto) Lymph # (Auto) [place] # (Auto) Seg Neutrophils % Seg Neuts % (Manual) Lymphocytes % (Manual) Monocytes % (Manual) Nucleated RBC % Seg Neutrophils # Seg Neutrophils # Man Abs Lymphs (Manual) 223 L Lymphocytes # (Manual) PT INR APTT D-Dimer Heparin Anti-Xa Level ABG pH POC ABG pCO2 POC ABG pO2 ABG Oxyhemoglobin ABG Sodium ABG Potassium ABG Glucose Carboxyhemoglobin Sodium Potassium Chloride Carbon Dioxide BUN Creatinine Glucose POC Glucose 123 H Calcium Phosphorus Ferritin Total Bilirubin AST ALT Alkaline Phosphatase Lactate Dehydrogenase Total Creatine Kinase Troponin T C-Reactive Protein NT-Pro-B Natriuret Pep Serum Total Protein Total Protein Albumin Cholesterol LDL Cholesterol Direct HDL Cholesterol PTH Intact Arterial Blood Glucose Urine WBC (Auto) Urine Creatinine Valproic Acid Heparin-induced Plt Ab Lymph Enumerat CD4/CD8 0.70 L Absolute CD3 Count 175 L Absolute CD4 Count 70 L % CD8 Cells 45 H Absolute CD8 Count 101 L Absolute CD19 Count 26 L Coronavirus (PCR) HIV-1 RNA PCR copies/ml 67 H HIV-1 RNA (PCR) log 1.83 H 09/19/20 09/20/20 09/20/20 23:37 04:00 04:00 WBC RBC 3.43 L Hgb 11.1 L Hct 32.2 L MCV MCH MCHC RDW Plt Count 131 L Lymph % (Auto) [place] % (Auto) Lymph # (Auto) [place] # (Auto) Seg Neutrophils % Seg Neuts % (Manual) 88.0 H Lymphocytes % (Manual) 3.0 L Monocytes % (Manual) 9.0 H Nucleated RBC % Seg Neutrophils # Seg Neutrophils # Man 8.2 H Abs Lymphs (Manual) Lymphocytes # (Manual) 0.3 L PT INR APTT D-Dimer Heparin Anti-Xa Level 0.10 L ABG pH POC ABG pCO2 POC ABG pO2 ABG Oxyhemoglobin ABG Sodium ABG Potassium ABG Glucose Carboxyhemoglobin Sodium Potassium Chloride Carbon Dioxide BUN Creatinine Glucose POC Glucose 135 H Calcium Phosphorus Ferritin Total Bilirubin AST ALT Alkaline Phosphatase Lactate Dehydrogenase Total Creatine Kinase Troponin T C-Reactive Protein NT-Pro-B Natriuret Pep Serum Total Protein Total Protein Albumin Cholesterol LDL Cholesterol Direct HDL Cholesterol PTH Intact Arterial Blood Glucose Urine WBC (Auto) Urine Creatinine Valproic Acid Heparin-induced Plt Ab Lymph Enumerat CD4/CD8 Absolute CD3 Count Absolute CD4 Count % CD8 Cells Absolute CD8 Count Absolute CD19 Count Coronavirus (PCR) HIV-1 RNA PCR copies/ml HIV-1 RNA (PCR) log 09/20/20 09/20/20 09/20/20 04:00 05:37 11:20 WBC RBC Hgb Hct MCV MCH MCHC RDW Plt Count Lymph % (Auto) [place] % (Auto) Lymph # (Auto) [place] # (Auto) Seg Neutrophils % Seg Neuts % (Manual) Lymphocytes % (Manual) Monocytes % (Manual) Nucleated RBC % Seg Neutrophils # Seg Neutrophils # Man Abs Lymphs (Manual) Lymphocytes # (Manual) PT INR APTT D-Dimer Heparin Anti-Xa Level ABG pH POC ABG pCO2 POC ABG pO2 ABG Oxyhemoglobin ABG Sodium ABG Potassium ABG Glucose Carboxyhemoglobin Sodium Potassium Chloride Carbon Dioxide 16 L BUN 119 H Creatinine 6.2 H Glucose 136 H POC Glucose 137 H 108 H Calcium Phosphorus Ferritin Total Bilirubin AST ALT Alkaline Phosphatase Lactate Dehydrogenase Total Creatine Kinase Troponin T C-Reactive Protein NT-Pro-B Natriuret Pep Serum Total Protein Total Protein Albumin Cholesterol LDL Cholesterol Direct HDL Cholesterol PTH Intact Arterial Blood Glucose Urine WBC (Auto) Urine Creatinine Valproic Acid Heparin-induced Plt Ab Lymph Enumerat CD4/CD8 Absolute CD3 Count Absolute CD4 Count % CD8 Cells Absolute CD8 Count Absolute CD19 Count Coronavirus (PCR) HIV-1 RNA PCR copies/ml HIV-1 RNA (PCR) log 09/20/20 09/20/20 09/20/20 17:10 17:10 17:10 WBC RBC Hgb Hct MCV MCH MCHC RDW Plt Count Lymph % (Auto) [place] % (Auto) Lymph # (Auto) [place] # (Auto) Seg Neutrophils % Seg Neuts % (Manual) Lymphocytes % (Manual) Monocytes % (Manual) Nucleated RBC % Seg Neutrophils # Seg Neutrophils # Man Abs Lymphs (Manual) Lymphocytes # (Manual) PT INR APTT D-Dimer 4271.58 H Heparin Anti-Xa Level ABG pH POC ABG pCO2 POC ABG pO2 ABG Oxyhemoglobin ABG Sodium ABG Potassium ABG Glucose Carboxyhemoglobin Sodium Potassium Chloride Carbon Dioxide BUN Creatinine 6.0 H Glucose POC Glucose Calcium Phosphorus Ferritin 696.6 H Total Bilirubin AST ALT Alkaline Phosphatase Lactate Dehydrogenase Total Creatine Kinase Troponin T C-Reactive Protein NT-Pro-B Natriuret Pep Serum Total Protein Total Protein Albumin Cholesterol LDL Cholesterol Direct HDL Cholesterol PTH Intact Arterial Blood Glucose Urine WBC (Auto) Urine Creatinine Valproic Acid Heparin-induced Plt Ab Lymph Enumerat CD4/CD8 Absolute CD3 Count Absolute CD4 Count % CD8 Cells Absolute CD8 Count Absolute CD19 Count Coronavirus (PCR) HIV-1 RNA PCR copies/ml HIV-1 RNA (PCR) log 09/20/20 09/20/20 09/20/20 17:10 18:21 23:14 WBC RBC Hgb Hct MCV MCH MCHC RDW Plt Count Lymph % (Auto) [place] % (Auto) Lymph # (Auto) [place] # (Auto) Seg Neutrophils % Seg Neuts % (Manual) Lymphocytes % (Manual) Monocytes % (Manual) Nucleated RBC % Seg Neutrophils # Seg Neutrophils # Man Abs Lymphs (Manual) Lymphocytes # (Manual) PT INR APTT D-Dimer Heparin Anti-Xa Level ABG pH POC ABG pCO2 POC ABG pO2 ABG Oxyhemoglobin ABG Sodium ABG Potassium ABG Glucose Carboxyhemoglobin Sodium Potassium Chloride Carbon Dioxide BUN Creatinine Glucose POC Glucose 129 H 170 H Calcium Phosphorus Ferritin Total Bilirubin AST ALT Alkaline Phosphatase Lactate Dehydrogenase 209 H Total Creatine Kinase Troponin T C-Reactive Protein 10.60 H NT-Pro-B Natriuret Pep Serum Total Protein Total Protein Albumin Cholesterol LDL Cholesterol Direct HDL Cholesterol PTH Intact Arterial Blood Glucose Urine WBC (Auto) Urine Creatinine Valproic Acid Heparin-induced Plt Ab Lymph Enumerat CD4/CD8 Absolute CD3 Count Absolute CD4 Count % CD8 Cells Absolute CD8 Count Absolute CD19 Count Coronavirus (PCR) HIV-1 RNA PCR copies/ml HIV-1 RNA (PCR) log 09/21/20 09/21/20 09/21/20 05:35 17:09 23:18 WBC RBC Hgb Hct MCV MCH MCHC RDW Plt Count Lymph % (Auto) [place] % (Auto) Lymph # (Auto) [place] # (Auto) Seg Neutrophils % Seg Neuts % (Manual) Lymphocytes % (Manual) Monocytes % (Manual) Nucleated RBC % Seg Neutrophils # Seg Neutrophils # Man Abs Lymphs (Manual) Lymphocytes # (Manual) PT INR APTT D-Dimer Heparin Anti-Xa Level ABG pH POC ABG pCO2 POC ABG pO2 ABG Oxyhemoglobin ABG Sodium ABG Potassium ABG Glucose Carboxyhemoglobin Sodium Potassium Chloride Carbon Dioxide BUN Creatinine Glucose POC Glucose 170 H 140 H 139 H Calcium Phosphorus Ferritin Total Bilirubin AST ALT Alkaline Phosphatase Lactate Dehydrogenase Total Creatine Kinase Troponin T C-Reactive Protein NT-Pro-B Natriuret Pep Serum Total Protein Total Protein Albumin Cholesterol LDL Cholesterol Direct HDL Cholesterol PTH Intact Arterial Blood Glucose Urine WBC (Auto) Urine Creatinine Valproic Acid Heparin-induced Plt Ab Lymph Enumerat CD4/CD8 Absolute CD3 Count Absolute CD4 Count % CD8 Cells Absolute CD8 Count Absolute CD19 Count Coronavirus (PCR) HIV-1 RNA PCR copies/ml HIV-1 RNA (PCR) log 09/21/20 09/21/20 09/21/20 Unknown Unknown Unknown WBC RBC 3.56 L Hgb 11.3 L Hct 33.2 L MCV MCH MCHC RDW Plt Count 125 L Lymph % (Auto) [place] % (Auto) Lymph # (Auto) [place] # (Auto) Seg Neutrophils % Seg Neuts % (Manual) 90.0 H Lymphocytes % (Manual) 8.0 L Monocytes % (Manual) Nucleated RBC % 1.0 H Seg Neutrophils # Seg Neutrophils # Man 9.4 H Abs Lymphs (Manual) Lymphocytes # (Manual) 0.8 L PT 16.8 H INR 1.36 H APTT D-Dimer Heparin Anti-Xa Level ABG pH POC ABG pCO2 POC ABG pO2 ABG Oxyhemoglobin ABG Sodium ABG Potassium ABG Glucose Carboxyhemoglobin Sodium Potassium Chloride Carbon Dioxide BUN 83 H Creatinine 4.3 H Glucose 163 H POC Glucose Calcium Phosphorus Ferritin Total Bilirubin 2.40 H AST ALT 57 H Alkaline Phosphatase < 5 L Lactate Dehydrogenase Total Creatine Kinase Troponin T C-Reactive Protein NT-Pro-B Natriuret Pep Serum Total Protein Total Protein Albumin 1.9 L Cholesterol LDL Cholesterol Direct HDL Cholesterol PTH Intact Arterial Blood Glucose Urine WBC (Auto) Urine Creatinine Valproic Acid Heparin-induced Plt Ab Lymph Enumerat CD4/CD8 Absolute CD3 Count Absolute CD4 Count % CD8 Cells Absolute CD8 Count Absolute CD19 Count Coronavirus (PCR) HIV-1 RNA PCR copies/ml HIV-1 RNA (PCR) log 09/22/20 09/22/20 09/22/20 05:38 05:38 05:38 WBC 15.8 H RBC 3.36 L Hgb 10.8 L Hct 31.0 L MCV MCH MCHC 35 H RDW Plt Count 68 L Lymph % (Auto) 3.1 L [place] % (Auto) 10.7 H Lymph # (Auto) 0.5 L [place] # (Auto) 1.7 H Seg Neutrophils % 85.9 H Seg Neuts % (Manual) Lymphocytes % (Manual) Monocytes % (Manual) Nucleated RBC % Seg Neutrophils # 13.6 H Seg Neutrophils # Man Abs Lymphs (Manual) Lymphocytes # (Manual) PT INR APTT D-Dimer 3281.49 H Heparin Anti-Xa Level ABG pH POC ABG pCO2 POC ABG pO2 ABG Oxyhemoglobin ABG Sodium ABG Potassium ABG Glucose Carboxyhemoglobin Sodium Potassium Chloride Carbon Dioxide BUN 61 H Creatinine 3.1 H Glucose 129 H POC Glucose Calcium Phosphorus Ferritin Total Bilirubin AST ALT Alkaline Phosphatase Lactate Dehydrogenase 277 H Total Creatine Kinase Troponin T C-Reactive Protein 6.60 H NT-Pro-B Natriuret Pep Serum Total Protein Total Protein Albumin Cholesterol LDL Cholesterol Direct HDL Cholesterol PTH Intact Arterial Blood Glucose Urine WBC (Auto) Urine Creatinine Valproic Acid Heparin-induced Plt Ab Lymph Enumerat CD4/CD8 Absolute CD3 Count Absolute CD4 Count % CD8 Cells Absolute CD8 Count Absolute CD19 Count Coronavirus (PCR) HIV-1 RNA PCR copies/ml HIV-1 RNA (PCR) log 09/22/20 09/22/20 09/22/20 05:38 05:44 11:26 WBC RBC Hgb Hct MCV MCH MCHC RDW Plt Count Lymph % (Auto) [place] % (Auto) Lymph # (Auto) [place] # (Auto) Seg Neutrophils % Seg Neuts % (Manual) Lymphocytes % (Manual) Monocytes % (Manual) Nucleated RBC % Seg Neutrophils # Seg Neutrophils # Man Abs Lymphs (Manual) Lymphocytes # (Manual) PT INR APTT D-Dimer Heparin Anti-Xa Level ABG pH POC ABG pCO2 POC ABG pO2 ABG Oxyhemoglobin ABG Sodium ABG Potassium ABG Glucose Carboxyhemoglobin Sodium Potassium Chloride Carbon Dioxide BUN Creatinine Glucose POC Glucose 112 H 131 H Calcium Phosphorus Ferritin 927.8 H Total Bilirubin AST ALT Alkaline Phosphatase Lactate Dehydrogenase Total Creatine Kinase Troponin T C-Reactive Protein NT-Pro-B Natriuret Pep Serum Total Protein Total Protein Albumin Cholesterol LDL Cholesterol Direct HDL Cholesterol PTH Intact Arterial Blood Glucose Urine WBC (Auto) Urine Creatinine Valproic Acid Heparin-induced Plt Ab Lymph Enumerat CD4/CD8 Absolute CD3 Count Absolute CD4 Count % CD8 Cells Absolute CD8 Count Absolute CD19 Count Coronavirus (PCR) HIV-1 RNA PCR copies/ml HIV-1 RNA (PCR) log 09/22/20 09/22/20 09/22/20 15:12 15:12 15:12 WBC RBC Hgb Hct MCV MCH MCHC RDW Plt Count Lymph % (Auto) [place] % (Auto) Lymph # (Auto) [place] # (Auto) Seg Neutrophils % Seg Neuts % (Manual) Lymphocytes % (Manual) Monocytes % (Manual) Nucleated RBC % Seg Neutrophils # Seg Neutrophils # Man Abs Lymphs (Manual) Lymphocytes # (Manual) PT 17.3 H INR 1.42 H APTT D-Dimer Heparin Anti-Xa Level ABG pH POC ABG pCO2 POC ABG pO2 ABG Oxyhemoglobin ABG Sodium ABG Potassium ABG Glucose Carboxyhemoglobin Sodium Potassium Chloride Carbon Dioxide BUN Creatinine 3.0 H Glucose POC Glucose Calcium Phosphorus Ferritin Total Bilirubin AST ALT Alkaline Phosphatase Lactate Dehydrogenase Total Creatine Kinase Troponin T C-Reactive Protein NT-Pro-B Natriuret Pep Serum Total Protein Total Protein Albumin Cholesterol LDL Cholesterol Direct HDL Cholesterol PTH Intact Arterial Blood Glucose Urine WBC (Auto) Urine Creatinine Valproic Acid Heparin-induced Plt Ab Weak positive H Lymph Enumerat CD4/CD8 Absolute CD3 Count Absolute CD4 Count % CD8 Cells Absolute CD8 Count Absolute CD19 Count Coronavirus (PCR) HIV-1 RNA PCR copies/ml HIV-1 RNA (PCR) log 09/22/20 09/22/20 09/23/20 16:53 23:55 04:36 WBC 14.2 H RBC 3.05 L Hgb 9.8 L Hct 28.4 L MCV MCH MCHC RDW Plt Count 39 L Lymph % (Auto) [place] % (Auto) Lymph # (Auto) [place] # (Auto) Seg Neutrophils % Seg Neuts % (Manual) 91.0 H Lymphocytes % (Manual) 2.0 L Monocytes % (Manual) Nucleated RBC % Seg Neutrophils # Seg Neutrophils # Man 12.9 H Abs Lymphs (Manual) Lymphocytes # (Manual) 0.3 L PT INR APTT D-Dimer Heparin Anti-Xa Level ABG pH POC ABG pCO2 POC ABG pO2 ABG Oxyhemoglobin ABG Sodium ABG Potassium ABG Glucose Carboxyhemoglobin Sodium Potassium Chloride Carbon Dioxide BUN Creatinine Glucose POC Glucose 138 H 171 H Calcium Phosphorus Ferritin Total Bilirubin AST ALT Alkaline Phosphatase Lactate Dehydrogenase Total Creatine Kinase Troponin T C-Reactive Protein NT-Pro-B Natriuret Pep Serum Total Protein Total Protein Albumin Cholesterol LDL Cholesterol Direct HDL Cholesterol PTH Intact Arterial Blood Glucose Urine WBC (Auto) Urine Creatinine Valproic Acid Heparin-induced Plt Ab Lymph Enumerat CD4/CD8 Absolute CD3 Count Absolute CD4 Count % CD8 Cells Absolute CD8 Count Absolute CD19 Count Coronavirus (PCR) HIV-1 RNA PCR copies/ml HIV-1 RNA (PCR) log 09/23/20 09/23/20 09/23/20 04:36 05:41 11:38 WBC RBC Hgb Hct MCV MCH MCHC RDW Plt Count Lymph % (Auto) [place] % (Auto) Lymph # (Auto) [place] # (Auto) Seg Neutrophils % Seg Neuts % (Manual) Lymphocytes % (Manual) Monocytes % (Manual) Nucleated RBC % Seg Neutrophils # Seg Neutrophils # Man Abs Lymphs (Manual) Lymphocytes # (Manual) PT INR APTT D-Dimer Heparin Anti-Xa Level ABG pH POC ABG pCO2 POC ABG pO2 ABG Oxyhemoglobin ABG Sodium ABG Potassium ABG Glucose Carboxyhemoglobin Sodium Potassium Chloride Carbon Dioxide BUN 76 H Creatinine 3.1 H Glucose 157 H POC Glucose 136 H 141 H Calcium Phosphorus Ferritin Total Bilirubin AST ALT Alkaline Phosphatase Lactate Dehydrogenase Total Creatine Kinase Troponin T C-Reactive Protein NT-Pro-B Natriuret Pep Serum Total Protein Total Protein Albumin Cholesterol LDL Cholesterol Direct HDL Cholesterol PTH Intact Arterial Blood Glucose Urine WBC (Auto) Urine Creatinine Valproic Acid Heparin-induced Plt Ab Lymph Enumerat CD4/CD8 Absolute CD3 Count Absolute CD4 Count % CD8 Cells Absolute CD8 Count Absolute CD19 Count Coronavirus (PCR) HIV-1 RNA PCR copies/ml HIV-1 RNA (PCR) log 09/23/20 09/23/20 09/24/20 17:09 23:51 05:00 WBC 24.2 H RBC 3.23 L Hgb 10.0 L Hct 29.7 L MCV MCH MCHC RDW Plt Count 74 L Lymph % (Auto) [place] % (Auto) Lymph # (Auto) [place] # (Auto) Seg Neutrophils % Seg Neuts % (Manual) Lymphocytes % (Manual) Monocytes % (Manual) Nucleated RBC % Seg Neutrophils # Seg Neutrophils # Man Abs Lymphs (Manual) Lymphocytes # (Manual) PT INR APTT D-Dimer Heparin Anti-Xa Level ABG pH POC ABG pCO2 POC ABG pO2 ABG Oxyhemoglobin ABG Sodium ABG Potassium ABG Glucose Carboxyhemoglobin Sodium Potassium Chloride Carbon Dioxide BUN Creatinine Glucose POC Glucose 128 H 128 H Calcium Phosphorus Ferritin Total Bilirubin AST ALT Alkaline Phosphatase Lactate Dehydrogenase Total Creatine Kinase Troponin T C-Reactive Protein NT-Pro-B Natriuret Pep Serum Total Protein Total Protein Albumin Cholesterol LDL Cholesterol Direct HDL Cholesterol PTH Intact Arterial Blood Glucose Urine WBC (Auto) Urine Creatinine Valproic Acid Heparin-induced Plt Ab Lymph Enumerat CD4/CD8 Absolute CD3 Count Absolute CD4 Count % CD8 Cells Absolute CD8 Count Absolute CD19 Count Coronavirus (PCR) HIV-1 RNA PCR copies/ml HIV-1 RNA (PCR) log 09/24/20 09/24/20 09/24/20 05:00 05:00 05:00 WBC RBC Hgb Hct MCV MCH MCHC RDW Plt Count Lymph % (Auto) [place] % (Auto) Lymph # (Auto) [place] # (Auto) Seg Neutrophils % Seg Neuts % (Manual) Lymphocytes % (Manual) Monocytes % (Manual) Nucleated RBC % Seg Neutrophils # Seg Neutrophils # Man Abs Lymphs (Manual) Lymphocytes # (Manual) PT INR APTT D-Dimer 1772.86 H Heparin Anti-Xa Level ABG pH POC ABG pCO2 POC ABG pO2 ABG Oxyhemoglobin ABG Sodium ABG Potassium ABG Glucose Carboxyhemoglobin Sodium Potassium Chloride 107.1 H Carbon Dioxide BUN 90 H Creatinine 3.1 H Glucose 118 H POC Glucose Calcium Phosphorus Ferritin 1190.0 H Total Bilirubin AST ALT Alkaline Phosphatase Lactate Dehydrogenase 276 H Total Creatine Kinase Troponin T C-Reactive Protein 4.20 H NT-Pro-B Natriuret Pep Serum Total Protein Total Protein Albumin Cholesterol LDL Cholesterol Direct HDL Cholesterol PTH Intact Arterial Blood Glucose Urine WBC (Auto) Urine Creatinine Valproic Acid Heparin-induced Plt Ab Lymph Enumerat CD4/CD8 Absolute CD3 Count Absolute CD4 Count % CD8 Cells Absolute CD8 Count Absolute CD19 Count Coronavirus (PCR) HIV-1 RNA PCR copies/ml HIV-1 RNA (PCR) log 09/24/20 09/24/20 09/24/20 05:12 11:25 12:09 WBC RBC Hgb Hct MCV MCH MCHC RDW Plt Count Lymph % (Auto) [place] % (Auto) Lymph # (Auto) [place] # (Auto) Seg Neutrophils % Seg Neuts % (Manual) Lymphocytes % (Manual) Monocytes % (Manual) Nucleated RBC % Seg Neutrophils # Seg Neutrophils # Man Abs Lymphs (Manual) Lymphocytes # (Manual) PT INR APTT D-Dimer Heparin Anti-Xa Level ABG pH POC ABG pCO2 POC ABG pO2 ABG Oxyhemoglobin ABG Sodium ABG Potassium ABG Glucose Carboxyhemoglobin Sodium Potassium Chloride Carbon Dioxide BUN Creatinine 3.1 H Glucose POC Glucose 114 H 110 H Calcium Phosphorus Ferritin Total Bilirubin AST ALT Alkaline Phosphatase Lactate Dehydrogenase Total Creatine Kinase Troponin T C-Reactive Protein NT-Pro-B Natriuret Pep Serum Total Protein Total Protein Albumin Cholesterol LDL Cholesterol Direct HDL Cholesterol PTH Intact Arterial Blood Glucose Urine WBC (Auto) Urine Creatinine Valproic Acid Heparin-induced Plt Ab Lymph Enumerat CD4/CD8 Absolute CD3 Count Absolute CD4 Count % CD8 Cells Absolute CD8 Count Absolute CD19 Count Coronavirus (PCR) HIV-1 RNA PCR copies/ml HIV-1 RNA (PCR) log 09/24/20 09/24/20 09/24/20 12:13 12:13 17:41 WBC 20.8 H RBC 3.04 L Hgb 9.5 L Hct 28.0 L MCV MCH MCHC RDW Plt Count 78 L Lymph % (Auto) [place] % (Auto) Lymph # (Auto) [place] # (Auto) Seg Neutrophils % Seg Neuts % (Manual) Lymphocytes % (Manual) Monocytes % (Manual) Nucleated RBC % Seg Neutrophils # Seg Neutrophils # Man Abs Lymphs (Manual) Lymphocytes # (Manual) PT 15.7 H INR 1.27 H APTT D-Dimer Heparin Anti-Xa Level ABG pH POC ABG pCO2 POC ABG pO2 ABG Oxyhemoglobin ABG Sodium ABG Potassium ABG Glucose Carboxyhemoglobin Sodium Potassium Chloride Carbon Dioxide BUN Creatinine Glucose POC Glucose 133 H Calcium Phosphorus Ferritin Total Bilirubin AST ALT Alkaline Phosphatase Lactate Dehydrogenase Total Creatine Kinase Troponin T C-Reactive Protein NT-Pro-B Natriuret Pep Serum Total Protein Total Protein Albumin Cholesterol LDL Cholesterol Direct HDL Cholesterol PTH Intact Arterial Blood Glucose Urine WBC (Auto) Urine Creatinine Valproic Acid Heparin-induced Plt Ab Lymph Enumerat CD4/CD8 Absolute CD3 Count Absolute CD4 Count % CD8 Cells Absolute CD8 Count Absolute CD19 Count Coronavirus (PCR) HIV-1 RNA PCR copies/ml HIV-1 RNA (PCR) log 09/24/20 09/25/20 09/25/20 23:34 06:40 06:40 WBC RBC Hgb Hct MCV MCH MCHC RDW Plt Count Lymph % (Auto) [place] % (Auto) Lymph # (Auto) [place] # (Auto) Seg Neutrophils % Seg Neuts % (Manual) Lymphocytes % (Manual) Monocytes % (Manual) Nucleated RBC % Seg Neutrophils # Seg Neutrophils # Man Abs Lymphs (Manual) Lymphocytes # (Manual) PT INR APTT D-Dimer Heparin Anti-Xa Level ABG pH POC ABG pCO2 POC ABG pO2 ABG Oxyhemoglobin ABG Sodium ABG Potassium ABG Glucose Carboxyhemoglobin Sodium Potassium Chloride 109.0 H Carbon Dioxide BUN 98 H Creatinine 3.0 H 3.0 H Glucose 111 H POC Glucose 113 H Calcium Phosphorus Ferritin Total Bilirubin AST ALT Alkaline Phosphatase Lactate Dehydrogenase Total Creatine Kinase Troponin T C-Reactive Protein NT-Pro-B Natriuret Pep Serum Total Protein Total Protein Albumin Cholesterol LDL Cholesterol Direct HDL Cholesterol PTH Intact Arterial Blood Glucose Urine WBC (Auto) Urine Creatinine Valproic Acid Heparin-induced Plt Ab Lymph Enumerat CD4/CD8 Absolute CD3 Count Absolute CD4 Count % CD8 Cells Absolute CD8 Count Absolute CD19 Count Coronavirus (PCR) HIV-1 RNA PCR copies/ml HIV-1 RNA (PCR) log 09/25/20 09/25/20 09/25/20 10:45 12:45 18:03 WBC 20.7 H RBC 3.33 L Hgb 10.2 L Hct 31.3 L MCV MCH MCHC RDW Plt Count 139 L Lymph % (Auto) [place] % (Auto) Lymph # (Auto) [place] # (Auto) Seg Neutrophils % Seg Neuts % (Manual) Lymphocytes % (Manual) Monocytes % (Manual) Nucleated RBC % Seg Neutrophils # Seg Neutrophils # Man Abs Lymphs (Manual) Lymphocytes # (Manual) PT INR APTT D-Dimer Heparin Anti-Xa Level ABG pH POC ABG pCO2 POC ABG pO2 ABG Oxyhemoglobin ABG Sodium ABG Potassium ABG Glucose Carboxyhemoglobin Sodium Potassium Chloride Carbon Dioxide BUN Creatinine Glucose POC Glucose 108 H 114 H Calcium Phosphorus Ferritin Total Bilirubin AST ALT Alkaline Phosphatase Lactate Dehydrogenase Total Creatine Kinase Troponin T C-Reactive Protein NT-Pro-B Natriuret Pep Serum Total Protein Total Protein Albumin Cholesterol LDL Cholesterol Direct HDL Cholesterol PTH Intact Arterial Blood Glucose Urine WBC (Auto) Urine Creatinine Valproic Acid Heparin-induced Plt Ab Lymph Enumerat CD4/CD8 Absolute CD3 Count Absolute CD4 Count % CD8 Cells Absolute CD8 Count Absolute CD19 Count Coronavirus (PCR) HIV-1 RNA PCR copies/ml HIV-1 RNA (PCR) log 09/25/20 09/26/20 09/26/20 23:29 05:00 07:06 WBC 17.0 H RBC 3.10 L Hgb 9.6 L Hct 28.8 L MCV MCH MCHC RDW Plt Count Lymph % (Auto) [place] % (Auto) Lymph # (Auto) [place] # (Auto) Seg Neutrophils % Seg Neuts % (Manual) Lymphocytes % (Manual) Monocytes % (Manual) Nucleated RBC % Seg Neutrophils # Seg Neutrophils # Man Abs Lymphs (Manual) Lymphocytes # (Manual) PT INR APTT D-Dimer Heparin Anti-Xa Level ABG pH POC ABG pCO2 POC ABG pO2 ABG Oxyhemoglobin ABG Sodium ABG Potassium ABG Glucose Carboxyhemoglobin Sodium Potassium Chloride Carbon Dioxide BUN Creatinine Glucose POC Glucose 111 H 115 H Calcium Phosphorus Ferritin Total Bilirubin AST ALT Alkaline Phosphatase Lactate Dehydrogenase Total Creatine Kinase Troponin T C-Reactive Protein NT-Pro-B Natriuret Pep Serum Total Protein Total Protein Albumin Cholesterol LDL Cholesterol Direct HDL Cholesterol PTH Intact Arterial Blood Glucose Urine WBC (Auto) Urine Creatinine Valproic Acid Heparin-induced Plt Ab Lymph Enumerat CD4/CD8 Absolute CD3 Count Absolute CD4 Count % CD8 Cells Absolute CD8 Count Absolute CD19 Count Coronavirus (PCR) HIV-1 RNA PCR copies/ml HIV-1 RNA (PCR) log 09/26/20 09/26/20 09/27/20 07:06 17:26 04:00 WBC RBC Hgb Hct MCV MCH MCHC RDW Plt Count Lymph % (Auto) [place] % (Auto) Lymph # (Auto) [place] # (Auto) Seg Neutrophils % Seg Neuts % (Manual) Lymphocytes % (Manual) Monocytes % (Manual) Nucleated RBC % Seg Neutrophils # Seg Neutrophils # Man Abs Lymphs (Manual) Lymphocytes # (Manual) PT INR APTT D-Dimer Heparin Anti-Xa Level ABG pH POC ABG pCO2 POC ABG pO2 ABG Oxyhemoglobin ABG Sodium ABG Potassium ABG Glucose Carboxyhemoglobin Sodium Potassium Chloride Carbon Dioxide BUN 69 H 67 H Creatinine 2.2 H 2.3 H Glucose 107 H 121 H POC Glucose 124 H Calcium Phosphorus Ferritin Total Bilirubin AST ALT Alkaline Phosphatase Lactate Dehydrogenase Total Creatine Kinase Troponin T C-Reactive Protein NT-Pro-B Natriuret Pep Serum Total Protein Total Protein Albumin Cholesterol LDL Cholesterol Direct HDL Cholesterol PTH Intact Arterial Blood Glucose Urine WBC (Auto) Urine Creatinine Valproic Acid Heparin-induced Plt Ab Lymph Enumerat CD4/CD8 Absolute CD3 Count Absolute CD4 Count % CD8 Cells Absolute CD8 Count Absolute CD19 Count Coronavirus (PCR) HIV-1 RNA PCR copies/ml HIV-1 RNA (PCR) log 09/27/20 09/27/20 09/27/20 04:00 05:00 17:11 WBC 14.6 H RBC 2.72 L Hgb 8.6 L Hct 25.8 L MCV 95 H MCH MCHC RDW Plt Count Lymph % (Auto) 4.3 L [place] % (Auto) Lymph # (Auto) 0.6 L [place] # (Auto) 0.9 H Seg Neutrophils % 89.6 H Seg Neuts % (Manual) Lymphocytes % (Manual) Monocytes % (Manual) Nucleated RBC % Seg Neutrophils # 13.1 H Seg Neutrophils # Man Abs Lymphs (Manual) Lymphocytes # (Manual) PT INR APTT D-Dimer Heparin Anti-Xa Level ABG pH POC ABG pCO2 POC ABG pO2 ABG Oxyhemoglobin ABG Sodium ABG Potassium ABG Glucose Carboxyhemoglobin Sodium Potassium Chloride Carbon Dioxide BUN Creatinine 2.4 H Glucose POC Glucose 132 H Calcium Phosphorus Ferritin Total Bilirubin AST ALT Alkaline Phosphatase Lactate Dehydrogenase Total Creatine Kinase Troponin T C-Reactive Protein NT-Pro-B Natriuret Pep Serum Total Protein Total Protein Albumin Cholesterol LDL Cholesterol Direct HDL Cholesterol PTH Intact Arterial Blood Glucose Urine WBC (Auto) Urine Creatinine Valproic Acid Heparin-induced Plt Ab Lymph Enumerat CD4/CD8 Absolute CD3 Count Absolute CD4 Count % CD8 Cells Absolute CD8 Count Absolute CD19 Count Coronavirus (PCR) HIV-1 RNA PCR copies/ml HIV-1 RNA (PCR) log 09/28/20 09/28/20 09/29/20 04:46 04:46 04:45 WBC 14.6 H RBC 2.66 L Hgb 8.4 L Hct 25.3 L MCV 95 H MCH MCHC RDW Plt Count Lymph % (Auto) [place] % (Auto) Lymph # (Auto) [place] # (Auto) Seg Neutrophils % Seg Neuts % (Manual) Lymphocytes % (Manual) Monocytes % (Manual) Nucleated RBC % Seg Neutrophils # Seg Neutrophils # Man Abs Lymphs (Manual) Lymphocytes # (Manual) PT INR APTT D-Dimer Heparin Anti-Xa Level ABG pH POC ABG pCO2 POC ABG pO2 ABG Oxyhemoglobin ABG Sodium ABG Potassium ABG Glucose Carboxyhemoglobin Sodium Potassium Chloride Carbon Dioxide BUN 71 H 63 H Creatinine 2.3 H 2.2 H Glucose 105 H POC Glucose Calcium Phosphorus Ferritin Total Bilirubin AST ALT Alkaline Phosphatase Lactate Dehydrogenase Total Creatine Kinase Troponin T C-Reactive Protein NT-Pro-B Natriuret Pep Serum Total Protein Total Protein Albumin Cholesterol LDL Cholesterol Direct HDL Cholesterol PTH Intact Arterial Blood Glucose Urine WBC (Auto) Urine Creatinine Valproic Acid Heparin-induced Plt Ab Lymph Enumerat CD4/CD8 Absolute CD3 Count Absolute CD4 Count % CD8 Cells Absolute CD8 Count Absolute CD19 Count Coronavirus (PCR) HIV-1 RNA PCR copies/ml HIV-1 RNA (PCR) log 09/29/20 09/29/20 09/29/20 04:45 05:43 17:50 WBC RBC 2.92 L Hgb 9.6 L Hct 28.1 L MCV 96 H MCH 33 H MCHC RDW Plt Count Lymph % (Auto) [place] % (Auto) Lymph # (Auto) [place] # (Auto) Seg Neutrophils % Seg Neuts % (Manual) Lymphocytes % (Manual) Monocytes % (Manual) Nucleated RBC % Seg Neutrophils # Seg Neutrophils # Man Abs Lymphs (Manual) Lymphocytes # (Manual) PT INR APTT D-Dimer Heparin Anti-Xa Level ABG pH POC ABG pCO2 POC ABG pO2 ABG Oxyhemoglobin ABG Sodium ABG Potassium ABG Glucose Carboxyhemoglobin Sodium Potassium Chloride Carbon Dioxide BUN Creatinine Glucose POC Glucose 69 L 132 H Calcium Phosphorus Ferritin Total Bilirubin AST ALT Alkaline Phosphatase Lactate Dehydrogenase Total Creatine Kinase Troponin T C-Reactive Protein NT-Pro-B Natriuret Pep Serum Total Protein Total Protein Albumin Cholesterol LDL Cholesterol Direct HDL Cholesterol PTH Intact Arterial Blood Glucose Urine WBC (Auto) Urine Creatinine Valproic Acid Heparin-induced Plt Ab Lymph Enumerat CD4/CD8 Absolute CD3 Count Absolute CD4 Count % CD8 Cells Absolute CD8 Count Absolute CD19 Count Coronavirus (PCR) HIV-1 RNA PCR copies/ml HIV-1 RNA (PCR) log 09/30/20 09/30/20 09/30/20 04:47 04:47 04:47 WBC RBC 2.47 L Hgb 8.1 L Hct 23.9 L MCV 97 H MCH 33 H MCHC RDW Plt Count Lymph % (Auto) [place] % (Auto) Lymph # (Auto) [place] # (Auto) Seg Neutrophils % Seg Neuts % (Manual) Lymphocytes % (Manual) Monocytes % (Manual) Nucleated RBC % Seg Neutrophils # Seg Neutrophils # Man Abs Lymphs (Manual) Lymphocytes # (Manual) PT INR APTT D-Dimer Heparin Anti-Xa Level ABG pH POC ABG pCO2 POC ABG pO2 ABG Oxyhemoglobin ABG Sodium ABG Potassium ABG Glucose Carboxyhemoglobin Sodium Potassium Chloride Carbon Dioxide 31 H BUN 63 H Creatinine 2.1 H Glucose POC Glucose Calcium Phosphorus Ferritin Total Bilirubin AST ALT Alkaline Phosphatase Lactate Dehydrogenase Total Creatine Kinase Troponin T C-Reactive Protein NT-Pro-B Natriuret Pep Serum Total Protein 5.5 L Total Protein 5.9 L Albumin 2.2 L 2.1 L Cholesterol LDL Cholesterol Direct HDL Cholesterol PTH Intact Arterial Blood Glucose Urine WBC (Auto) Urine Creatinine Valproic Acid Heparin-induced Plt Ab Lymph Enumerat CD4/CD8 Absolute CD3 Count Absolute CD4 Count % CD8 Cells Absolute CD8 Count Absolute CD19 Count Coronavirus (PCR) HIV-1 RNA PCR copies/ml HIV-1 RNA (PCR) log 10/01/20 10/01/20 10/02/20 07:16 08:30 05:10 WBC RBC Hgb Hct MCV MCH MCHC RDW Plt Count Lymph % (Auto) [place] % (Auto) Lymph # (Auto) [place] # (Auto) Seg Neutrophils % Seg Neuts % (Manual) Lymphocytes % (Manual) Monocytes % (Manual) Nucleated RBC % Seg Neutrophils # Seg Neutrophils # Man Abs Lymphs (Manual) Lymphocytes # (Manual) PT INR APTT D-Dimer Heparin Anti-Xa Level ABG pH POC ABG pCO2 POC ABG pO2 ABG Oxyhemoglobin ABG Sodium ABG Potassium ABG Glucose Carboxyhemoglobin Sodium Potassium Chloride Carbon Dioxide BUN 58 H 48 H Creatinine 2.2 H 2.0 H Glucose POC Glucose Calcium Phosphorus Ferritin Total Bilirubin AST ALT Alkaline Phosphatase Lactate Dehydrogenase Total Creatine Kinase Troponin T C-Reactive Protein NT-Pro-B Natriuret Pep Serum Total Protein Total Protein Albumin Cholesterol LDL Cholesterol Direct HDL Cholesterol PTH Intact Arterial Blood Glucose Urine WBC (Auto) Urine Creatinine Valproic Acid Heparin-induced Plt Ab Lymph Enumerat CD4/CD8 Absolute CD3 Count Absolute CD4 Count % CD8 Cells Absolute CD8 Count Absolute CD19 Count Coronavirus (PCR) Positive A HIV-1 RNA PCR copies/ml HIV-1 RNA (PCR) log 10/03/20 10/03/20 10/04/20 08:12 08:12 18:19 WBC RBC Hgb Hct MCV MCH MCHC RDW Plt Count Lymph % (Auto) [place] % (Auto) Lymph # (Auto) [place] # (Auto) Seg Neutrophils % Seg Neuts % (Manual) Lymphocytes % (Manual) Monocytes % (Manual) Nucleated RBC % Seg Neutrophils # Seg Neutrophils # Man Abs Lymphs (Manual) Lymphocytes # (Manual) PT INR APTT D-Dimer Heparin Anti-Xa Level ABG pH POC ABG pCO2 POC ABG pO2 ABG Oxyhemoglobin ABG Sodium ABG Potassium ABG Glucose Carboxyhemoglobin Sodium Potassium 5.4 H D Chloride Carbon Dioxide BUN 48 H 39 H Creatinine 2.2 H 2.7 H Glucose POC Glucose Calcium 8.0 L Phosphorus Ferritin Total Bilirubin AST ALT Alkaline Phosphatase Lactate Dehydrogenase Total Creatine Kinase Troponin T C-Reactive Protein NT-Pro-B Natriuret Pep Serum Total Protein Total Protein Albumin Cholesterol LDL Cholesterol Direct HDL Cholesterol PTH Intact Arterial Blood Glucose Urine WBC (Auto) Urine Creatinine Valproic Acid 17.8 L Heparin-induced Plt Ab Lymph Enumerat CD4/CD8 Absolute CD3 Count Absolute CD4 Count % CD8 Cells Absolute CD8 Count Absolute CD19 Count Coronavirus (PCR) HIV-1 RNA PCR copies/ml HIV-1 RNA (PCR) log 10/04/20 10/05/20 10/05/20 18:19 07:14 07:14 WBC RBC 2.44 L 2.36 L Hgb 8.0 L 7.8 L Hct 24.0 L 23.3 L MCV 98 H 99 H MCH 33 H 33 H MCHC RDW 15.6 H 16.0 H Plt Count Lymph % (Auto) [place] % (Auto) Lymph # (Auto) [place] # (Auto) Seg Neutrophils % Seg Neuts % (Manual) Lymphocytes % (Manual) Monocytes % (Manual) Nucleated RBC % Seg Neutrophils # Seg Neutrophils # Man Abs Lymphs (Manual) Lymphocytes # (Manual) PT INR APTT D-Dimer Heparin Anti-Xa Level ABG pH POC ABG pCO2 POC ABG pO2 ABG Oxyhemoglobin ABG Sodium ABG Potassium ABG Glucose Carboxyhemoglobin Sodium Potassium Chloride Carbon Dioxide BUN 36 H Creatinine 2.5 H Glucose POC Glucose Calcium Phosphorus Ferritin Total Bilirubin AST ALT Alkaline Phosphatase Lactate Dehydrogenase Total Creatine Kinase Troponin T C-Reactive Protein NT-Pro-B Natriuret Pep Serum Total Protein Total Protein Albumin Cholesterol LDL Cholesterol Direct HDL Cholesterol PTH Intact Arterial Blood Glucose Urine WBC (Auto) Urine Creatinine Valproic Acid Heparin-induced Plt Ab Lymph Enumerat CD4/CD8 Absolute CD3 Count Absolute CD4 Count % CD8 Cells Absolute CD8 Count Absolute CD19 Count Coronavirus (PCR) HIV-1 RNA PCR copies/ml HIV-1 RNA (PCR) log 10/06/20 10/06/20 10/07/20 08:04 Unknown 06:45 WBC RBC 2.38 L Hgb 7.9 L Hct 23.2 L MCV 98 H MCH 33 H MCHC RDW 15.4 H Plt Count Lymph % (Auto) [place] % (Auto) Lymph # (Auto) [place] # (Auto) Seg Neutrophils % Seg Neuts % (Manual) Lymphocytes % (Manual) Monocytes % (Manual) Nucleated RBC % Seg Neutrophils # Seg Neutrophils # Man Abs Lymphs (Manual) Lymphocytes # (Manual) PT INR APTT D-Dimer Heparin Anti-Xa Level ABG pH POC ABG pCO2 POC ABG pO2 ABG Oxyhemoglobin ABG Sodium ABG Potassium ABG Glucose Carboxyhemoglobin Sodium Potassium 3.5 L Chloride 107.2 H Carbon Dioxide BUN 30 H Creatinine 2.2 H Glucose POC Glucose Calcium Phosphorus Ferritin Total Bilirubin AST ALT Alkaline Phosphatase Lactate Dehydrogenase Total Creatine Kinase Troponin T C-Reactive Protein NT-Pro-B Natriuret Pep Serum Total Protein Total Protein Albumin Cholesterol LDL Cholesterol Direct HDL Cholesterol PTH Intact Arterial Blood Glucose Urine WBC (Auto) Urine Creatinine Valproic Acid Heparin-induced Plt Ab Lymph Enumerat CD4/CD8 Absolute CD3 Count Absolute CD4 Count % CD8 Cells Absolute CD8 Count Absolute CD19 Count Coronavirus (PCR) Positive A HIV-1 RNA PCR copies/ml HIV-1 RNA (PCR) log 10/07/20 10/08/20 10/10/20 06:45 20:19 06:57 WBC RBC Hgb Hct MCV MCH MCHC RDW Plt Count Lymph % (Auto) [place] % (Auto) Lymph # (Auto) [place] # (Auto) Seg Neutrophils % Seg Neuts % (Manual) Lymphocytes % (Manual) Monocytes % (Manual) Nucleated RBC % Seg Neutrophils # Seg Neutrophils # Man Abs Lymphs (Manual) Lymphocytes # (Manual) PT INR APTT D-Dimer Heparin Anti-Xa Level ABG pH POC ABG pCO2 POC ABG pO2 ABG Oxyhemoglobin ABG Sodium ABG Potassium ABG Glucose Carboxyhemoglobin Sodium 135 L Potassium 3.5 L Chloride Carbon Dioxide BUN 28 H 22 H Creatinine 2.2 H 2.0 H 2.0 H Glucose POC Glucose Calcium Phosphorus Ferritin Total Bilirubin AST ALT Alkaline Phosphatase Lactate Dehydrogenase Total Creatine Kinase Troponin T C-Reactive Protein NT-Pro-B Natriuret Pep Serum Total Protein Total Protein Albumin Cholesterol LDL Cholesterol Direct HDL Cholesterol PTH Intact Arterial Blood Glucose Urine WBC (Auto) Urine Creatinine Valproic Acid Heparin-induced Plt Ab Lymph Enumerat CD4/CD8 Absolute CD3 Count Absolute CD4 Count % CD8 Cells Absolute CD8 Count Absolute CD19 Count Coronavirus (PCR) HIV-1 RNA PCR copies/ml HIV-1 RNA (PCR) log 10/11/20 10/12/20 10/12/20 07:29 05:48 13:42 WBC RBC 2.42 L Hgb 8.1 L Hct 23.5 L MCV 97 H MCH 34 H MCHC 35 H RDW 16.1 H Plt Count Lymph % (Auto) [place] % (Auto) Lymph # (Auto) [place] # (Auto) Seg Neutrophils % Seg Neuts % (Manual) Lymphocytes % (Manual) Monocytes % (Manual) Nucleated RBC % Seg Neutrophils # Seg Neutrophils # Man Abs Lymphs (Manual) Lymphocytes # (Manual) 1.1 L PT INR APTT D-Dimer Heparin Anti-Xa Level ABG pH POC ABG pCO2 POC ABG pO2 ABG Oxyhemoglobin ABG Sodium ABG Potassium ABG Glucose Carboxyhemoglobin Sodium 136 L Potassium Chloride Carbon Dioxide BUN 21 H Creatinine 2.0 H 1.9 H Glucose POC Glucose Calcium 8.3 L Phosphorus Ferritin Total Bilirubin AST ALT Alkaline Phosphatase Lactate Dehydrogenase Total Creatine Kinase Troponin T C-Reactive Protein NT-Pro-B Natriuret Pep Serum Total Protein Total Protein Albumin Cholesterol LDL Cholesterol Direct HDL Cholesterol PTH Intact Arterial Blood Glucose Urine WBC (Auto) Urine Creatinine Valproic Acid Heparin-induced Plt Ab Lymph Enumerat CD4/CD8 Absolute CD3 Count Absolute CD4 Count % CD8 Cells Absolute CD8 Count Absolute CD19 Count Coronavirus (PCR) HIV-1 RNA PCR copies/ml HIV-1 RNA (PCR) log 10/13/20 10/14/20 06:35 05:32 WBC RBC Hgb Hct MCV MCH MCHC RDW Plt Count Lymph % (Auto) [place] % (Auto) Lymph # (Auto) [place] # (Auto) Seg Neutrophils % Seg Neuts % (Manual) Lymphocytes % (Manual) Monocytes % (Manual) Nucleated RBC % Seg Neutrophils # Seg Neutrophils # Man Abs Lymphs (Manual) Lymphocytes # (Manual) PT INR APTT D-Dimer Heparin Anti-Xa Level ABG pH POC ABG pCO2 POC ABG pO2 ABG Oxyhemoglobin ABG Sodium ABG Potassium ABG Glucose Carboxyhemoglobin Sodium 135 L Potassium 3.5 L Chloride Carbon Dioxide BUN 22 H 24 H Creatinine 1.8 H 2.2 H Glucose 107 H POC Glucose Calcium Phosphorus Ferritin Total Bilirubin AST ALT Alkaline Phosphatase Lactate Dehydrogenase Total Creatine Kinase Troponin T C-Reactive Protein NT-Pro-B Natriuret Pep Serum Total Protein Total Protein Albumin Cholesterol LDL Cholesterol Direct HDL Cholesterol PTH Intact Arterial Blood Glucose Urine WBC (Auto) Urine Creatinine Valproic Acid Heparin-induced Plt Ab Lymph Enumerat CD4/CD8 Absolute CD3 Count Absolute CD4 Count % CD8 Cells Absolute CD8 Count Absolute CD19 Count Coronavirus (PCR) HIV-1 RNA PCR copies/ml HIV-1 RNA (PCR) log Allied health notes reviewed: nursing
[2020-10-14] MEDS: QUEtiapine 25 MG TAB PO SCH (22:56)
[2020-10-15] MEDS: VALPROIC ACID 250 MG CAP PO SCH ×3 (00:48→22:27)
[2020-10-15] MEDS: SODIUM CHLORIDE 0.9% 1000 ML 1,000 ML IV SCH (04:28)
[2020-10-15] MEDS ORDERED: MIDODRINE 5 MG TAB PO ONE (04:46)
[2020-10-15 07:08] LABS: Calcium 8.2 mg/dL (8.4-10.2)
[2020-10-15] MEDS: ASCORBIC ACID 500 MG TAB PO SCH ×2 (09:58→22:27)
[2020-10-15] MEDS: MIDODRINE 5 MG TAB PO SCH ×3 (09:59→18:53)
[2020-10-15] MEDS: CHOLECALCIFEROL (VIT D3) 1000 UNIT (25 mcg) TAB PO SCH (09:59)
[2020-10-15] MEDS: DOCUSATE SODIUM 100 MG/10 ML ORAL LIQD PO SCH ×2 (10:00→22:26)
[2020-10-15] MEDS: DOLUTEGRAVIR 50 MG TAB PO SCH (10:00)
[2020-10-15] MEDS: APIXABAN 5 MG TAB PO SCH ×2 (10:00→22:27)
[2020-10-15] MEDS: ZINC SULFATE 220 MG CAP PO SCH (10:00)
[2020-10-15] MEDS: FAMOTIDINE 20 MG TAB PO SCH (10:00)
[2020-10-15] MEDS: TAMSULOSIN 0.4 MG CAP PO SCH (10:00)
[2020-10-15] MEDS: METOPROLOL TARTRATE 25 MG TAB PO SCH ×2 (10:01→21:48)
[2020-10-15] MEDS: AMIODARONE 200 MG TAB PO SCH ×2 (10:02→22:27)
--- NOTE | 2020-10-15 10:31 | Discharge Summary ---
Providers - Providers Date of Admission: 09/17/20 14:11 Attending physician: CHRIS VAZQUEZ MD 09/17/20 13:57 Consult to Physician [CONS] Routine Comment: Consulting Provider: JV MARTINEZ Physician Instructions: Reason For Exam: mariya 09/17/20 17:00 Consult to Physician [CONS] Routine Comment: Consulting Provider: MARIE SMYTH Physician Instructions: Reason For Exam: CHF/A Fib 09/18/20 01:24 Consult to Physician [CONS] Urgent Comment: Consulting Provider: MARGARITO CONNER Physician Instructions: Reason For Exam: ccu admit 09/18/20 13:50 Consult to Physician [CONS] Routine Comment: Consulting Provider: CHARANJIT ERNANDEZ Physician Instructions: Reason For Exam: bacteremia (gram negative) 09/20/20 11:17 Consult to Dietitian/Nutrition [CONS] Routine Physician Instructions: Reason For Exam: Reason for Consult: Write/Manage Tube Feeding 09/20/20 11:33 Consult to Physician [CONS] Routine Comment: Consulting Provider: REBECCA JEREZ Physician Instructions: Reason For Exam: Sepsis, large gall stone, ?cholecystitis 09/22/20 12:25 Consult to Physician [CONS] Routine Comment: Consulting Provider: EH NGUYEN Physician Instructions: Reason For Exam: Thrombocytopenia 09/28/20 11:56 Physical Therapy Evaluation and Treat [CONS] Urgent Comment: Reason For Exam: bedrest post resp fx 09/28/20 13:34 Speech Therapy Evaluation and Treat [CONS] Routine Reason For Exam: swallow eval 09/28/20 16:12 Physical Therapy Evaluation and Treat [CONS] Routine Comment: Reason For Exam: Debility 09/28/20 16:18 Occupational Therapy Evaluate and Treat [CONS] Routine Comment: Reason For Exam: Debility 09/30/20 15:02 Consult to Physician [CONS] Routine Comment: Consulting Provider: STEPHANIE YEPEZ Physician Instructions: Reason For Exam: delirium 10/07/20 09:46 Consult to Mental Health [CONS] Routine Reason For Exam: confusion 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 He was placed on supplemental oxygenation. Of note patient was admitted on 09/15 with similar complaints and found to have A. fib with RVR, hyponatremia, hypomagnesemia and acute kidney injury and left AMA. He was admitted to the hospital service with atrial fibrillation with RVR, SIRs, metabolic acidosis, acute kidney injury, acute hypoxic respiratory failure, hypotension, and CHF . Cardiology, CCM and nephrology were consulted. 09/18/2020. Await echocardiogram to assess for diastolic versus systolic etiology. Patient with elevated BNP greater than 18,000. Patient apparently was admitted approximately 3 days ago but left AMA. Cardiology consulted for heart failure, A. fib with RVR and elevated troponin. Patient denies chest pain. Also, patient with elevated creatinine of 4.7 with creatinine 2.8 on recent admission. We do not have a previous creatinine as a baseline to compare. Nephrology consultation pending. Follow-up renal ultrasound. Patient with coagulopathy and INR 3.04. Unsure if patient was on anticoagulation for A. fib. 09/19/2020. Patient likely with vasomotor acute kidney injury in the setting of shock. Follow-up urine studies and renal ultrasound. Creatinine continues to worsen. Nephrology following. Etiology of respiratory failure secondary to heart failure with Covid testing pending. Elevated troponin suggestive of NSTEMI. Continue diuresis with Lasix. Continue IV amiodarone for rate control of A. fib with RVR. Continue heparin. Follow-up echocardiogram. Cardiology following. 09/20/2020: This time my examination patient was on BiPAP therapy and now is on nasal cannula. Patient remains on amiodarone drip with heart rate in the 130s to 140s and vasopressor support with Levophed. Today nephrology will initiate hemodialysis given worsening renal function studies and has stopped diuresis with Lasix. ID resumed antiretroviral therapy and ordered a HIDA scan. Today the patient received a temporary Vas-Cath and is COVID-19 PCR resulted as positive. Patient will be started on vitamin C, vitamin D and zinc and dexamethasone given need for supplemental oxygenation. 09/21: Ecoli UTI and bacteremia and ID has changed him to meropenem, Patient received HD yesterday and patient remains on amiodarone drip. He is off the floor to obtain a HIDA scan. 09/22: HIDA scan did not show acute cholecystitis. Ecoli bacteremia is sensitive to ceftriaxone and ID changed his abx. Mentation is better. BP is liable. Remains on levophed and vasopressin. We started midodrine. HIT panel pending and hem/onc consulted. 09/23: Patient noted to have unequal pupils with left >right, STAT CT head ordered. Nephro will withhold hemodialysis and assess needs as kidney function has gotten better. Patient symptomatically follows commands and is on nasal cannula. Cardiology stopped his Eliquis due to persistent thrombocytopenia. 09/24: Patient remains confused, pupils still unequal. Started on eliquis 2.5 today and he will be transferred to IMCU. 09/25: Patient remains confused, had Bipap overnight, CT abd/pelvis ordered per ID recommendations given persistent leukocytosis. Cr remains unchanged but BUN in rising. Nephrology is on the case. 09/26/2020; patient was confused and on 3 L of oxygen. ID is following the patient and continue with antiretroviral medications, no OI prophylaxis needed. Patient is on IV Rocephin lasted 09/28 per ID recommendation for E. coli bacteremia. ID ordered CT abdomen and pelvis. We will follow the results. Patient is being followed by cardiology and they recommend to resume Eliquis with 2.5 mg p.o. twice daily, thrombocytopenia is improving. Patient is on amiodarone and metoprolol. Patient is being followed by nephrology and is on dialysis. Blood pressure was normal this morning. Patient was tachycardic in A. fib with RVR. CT head was normal. Prognosis is guarded. Continue IMCU care. 09/27: Continue IMCU care, still with unresolved Afib, will continue to adjust medications for better control. 09/28: Start Seroquel DUE TO THE AGITATION, Discussed with daughter, will work on getting Afib better controlled. Per daughter the confusion is new, although some improvement noted today. Patient will benefit from SNF 09/29: Seroquel started today as it was not started yesterday, await PT/OT, Continue to monitor mental status, will transfer to Tele. Anticipate discharge when bed available. 09/30: Discussed extensively with the daughter about her clinical condition, Seroquel discontinued as patient did not tolerate, still with low BP responded to Fluids. Hold BB and continue to monitor and redirect. Discussed with Nursing staff. 10/01: Patient seen and examined resting comfortably still with intermittent delirium. Blood pressure has improved although beta-ruddy was held midodrine was given. Will change to Coreg 3.125 with holding parameters on discharge. Per cardiology amiodarone changed to 200 mg daily. Neurology evaluation is still pending. I have initiated placement to a SNF facility and once approved patient can be discharged. Daughter has been updated on medical condition. For now on anticoagulation left in place although outpatient this may be discontinued due to patient's mental status if there is no improvement. 10/02: Neurology evaluated the patient for increased agitation and aggressive behavior and confusion. Exam suggestive of delirium stopped. Due to not tolerating Seroquel, now Geodon trial Haldol however recommended also valproic acid. No overnight issues reported. Continue awaiting SNF placement for continued rehab. Blood pressure has remained stable no further fever recorded. Monitor for any recurrence of the pain in the leg. 10/03: I have asked for a sitter a few days ago unfortunately not as available as a result restraints have been used and reassurances. Will decrease Seroquel to 12.5 twice daily as patient did not tolerate the 25 mg. Continue supportive care blood pressure meds held due to hypotension. Delirium still present delirium preventive methods including keeping the lights on through the night windows shades up discussed with nursing staff. Also discussed with neurologist. 10/04: 70-year-old male admitted to the hospital with hypoxic respiratory failure history of Covid. During hospitalization developed A. fib with RVR status metabolic acidosis and acute kidney injury. Has also been exhibiting some delirium was managed in the ICU and IMCU and subsequently is awaiting placement. He was seen by neurologist delirium of diagnosis secondary to metabolic issues. Seroquel was started initially at 25 mg p.o. twice daily but patient developed hypotension now better improved BP, Continue seroquel 12.5mg po BID seems to have good improvement in mental status. awaiting labs due to noted hyperkalemia yesterday. Repeat covud test for placement. 10/05/2020; patient is pending for placement. Repeat Covid test is negative. Blood pressure is within normal limit. Patient is confused. 10/06/2020; repeat Covid test is negative. Patient is confused. Patient last dialysis was on 09/25, renal function is stable, no need dialysis, nephrology is following. 10/07/2020; Covid test was done yesterday and was positive. Renal function is improving and nephrology is following at this time. Last dialysis was on 09/25. Patient is pending placement. Mental health consulted for confusion. 10/08/2020; patient was calm and cooperative. Patient was on condom cath. Patient was oriented only to self. 10/09/2020; patient was calm and cooperative. Patient was oriented only to self. Renal function is improving. Patient is pending placement. 10/10/2020; pending SNF placement. Patient is stable for discharge. 10/11: Continue supportive care. Awaiting placement. This morning was still confused ambulating saying that he was leaving. No worsening respiratory status noted. Safety precautions and fall precautions discussed extensively with nursing staff 10/12: Continue supportive care, discontinue Cabral Following irrigation. We will check a CBC to ensure no further decreasing H&H. Continue current management patient tolerating diet and completing 100% of his meal per staff. Altered mental status is significantly improved. 10/13: Cabral was discontinued yesterday patient had to be straight cath we will continue to monitor if required repeat straight catheter pulled back Cabral. Blood pressure still low. Outpatient follow-up with urology strongly recommended due to presumed urinary retention although no hydronephrosis is noted. Continue awaiting placement. H&H is stable. 10/14: Cabral placed due to persistent urinary retention, hematuria is resolved, maybe as a result of patient pulling on cabral. He continues to await placement due to severe debility. Patient noted to have low BP, adjusted BB down to BID from TID. will discontinue day time seroquel. 10/15: Patient clinically stable, no new complaints, renal function is improving, BP stable. Family wants to take home and declines SNF at this time. Outpatient follow ups placed. Septic Shock Acute hypoxemic respiratory failure 2/2 to volume overload/chf exacerbation Acute systolic heart failure exacerbation Atrial fibrillation with RVR Hematuria- resolved Acute on chronic kidney injury Hypotension Anemia Thrombocytopenia E coli bacteremia E. coli urinary tract infection NSTEMI Elevated Ddimer Leukocytosis HIV, asymptomatic HTN Coagulopathy Transaminitis Disposition: [id number] HOME [facility]ER [facility] Final Discharge Diagnosis (Prints w/discharge instructions): septic shock Time spent for discharge: 35 mins Core Measure Documentation - Palliative Care Palliative Care/ Comfort Measures: Not Applicable - Core Measures Any of the following diagnoses?: none Exam - Physical Exam Narrative exam: Resting comfortably The patient appeared well nourished and normally developed. Vital signs as documented. Head exam is unremarkable. No scleral icterus . Neck is without jugular venous distension, thyromegaly, or carotid bruits. Lungs are clear to auscultation. Cardiac exam reveals regular rate and Rhythm. Abdominal exam reveals normal bowel sounds, nontender, no organomegaly. : Cabral in, clear suzanne urine Extremities are nonedematous and both femoral and pedal pulses are normal. DERRICK BUILDER: Alert awake oriented x2 no focal deficit noted, per nursing staff still with intermittent delirium - Constitutional Vitals: Temp Pulse Resp BP Pulse Ox 98.8 F 109 H 16 93/65 96 10/15/20 03:53 10/15/20 10:20 10/15/20 03:53 10/15/20 10:20 10/15/20 10:20 Plan Activity: advance as tolerated, fall precautions Diet: renal Wound: per wound nurse instructions (pureed with thin liquids) Special Instructions: record daily weights, record daily BP diary, physical therapy, occupational therapy, home health RN Plan of Treatment: Must follow with an vacuum system tester outpatient Follow up with: SCOUT KESSLER MD [Primary Care Provider] - 7 Days JV MARTINEZ MD [Staff Physician] - 7 Days REINALDO WONG MD [Staff Physician] - 7 Days EDMOND HYLTON MD [Staff Physician] - 7 Days HARMAN PARK MD [Staff Physician] - 7 Days MATILDE GONZALEZ MD [Staff Physician] - 7 Days Prescriptions: QUEtiapine [SEROquel] 12.5 mg PO QHS #30 tablet Amiodarone [Cordarone 200 MG TAB] 200 mg PO BID #60 tablet carvediloL [Coreg] 3.125 mg PO BID #60 tablet Valproic Acid [Depakene] 250 mg PO BID #60 capsule Apixaban [Eliquis] 5 mg PO Q12HR #60 tablet Tamsulosin [Flomax] 0.4 mg PO QDAY #30 capsule Famotidine [Pepcid] 20 mg PO DAILY #30 tablet Midodrine [Proamatine] 10 mg PO TID@0800,1200,1600 #90 tablet Ascorbic Acid [Vitamin C] 500 mg PO BID #60 tablet Cholecalciferol Vit D3 [Vitamin D3 1,000 UNIT TAB] 1,000 unit PO QDAY #30 tablet Zinc Sulfate 220 mg PO QDAY #30 capsule
--- NOTE | 2020-10-15 12:06 | Progress Note ---
Assessment and Plan 1. Acute kidney injury: Vasomotor LOLI in the setting of shock. ATN likely. Renal US negative for hydro. Multiple bladder scan negative. Patient required hemodialysis due to significant decline in the renal function. Hemodialysis: 09/20, 09/21, 09/25. Monitor renal function. Creatinine level fluctuates. Gentle IV fluids. Avoid nephrotoxic agents. Meds dosage based on GFR. 2. FEN: Hyperkalemia, improved. Metabolic acidosis, improved, monitor. Monitor volume status and lytes. 3. Acute hypoxic respiratory failure: Covid test positive. Supplemental O2 as needed. 4. Acute CHF: Echocardiogram: EF 40-45%. Appears compensated now. Monitor. 5. Atrial fibrillation with RVR: On Amio and Metoprolol. Followed by Cards. 6. Elevated troponin: Followed by Cards. 7. Shock / Hypotension: Multifactorial, monitor. Off pressors. 8. Urinary retention: Gardner catheter. Outpatient f/u with Urology. 9. Metabolic encephalopathy: Monitor. 10. HIV. 11. Anemia, POA: Monitor. Subjective: Patient was seen and examined at the bedside. Doing ok. Objective: General appearance: well-developed, appears stated age, appears emaciated, not in distress HEENT: ATNC, L pupil dilated Neck: trachea midline Respiratory: ctab Heart: S1S2, irregular, no murmur Abdomen: soft, normoactive bowel sounds, not tender Integumentary: no obvious rash Ext: no edema Neurologic: alert, conversing, moving extremities : Gardner catheter Subjective Date of service: 10/15/20 Principal diagnosis: Acute Hypoxemic Resp Failure; COVID-19 infxn; Septic Shock; A-Fib with RVR Objective - Vital Signs Vital signs: Vital Signs - 12hr 10/15/20 10/15/20 10/15/20 03:53 04:04 04:06 Temperature 98.8 F Pulse Rate 98 H 93 H Respiratory 16 Rate Blood Pressure 86/57 79/54 Blood Pressure [Right] O2 Sat by Pulse 98 95 Oximetry 10/15/20 10/15/20 10:01 10:20 Temperature Pulse Rate 109 H 109 H Respiratory Rate Blood Pressure 93/65 Blood Pressure 93/65 [Right] O2 Sat by Pulse 96 Oximetry - Lab 10/12/20 13:42 10/15/20 06:26 Most recent lab results ABG pH 7.508 (7.320-7.450) H 09/17/20 10:28 ABG O2 Saturation 93.4 (0-100) 09/17/20 10:28 Calcium 8.2 mg/dL (8.4-10.2) L 10/15/20 06:26 Phosphorus 2.90 mg/dL (2.5-4.5) 09/26/20 07:06 Magnesium 1.70 mg/dL (1.7-2.3) 09/26/20 07:06 Urine Creatinine 61.0 mg/dL (0.1-20.0) H 09/18/20 12:00 Urine Sodium 62 mmol/L 09/18/20 12:00 Medications & Allergies - Medications Allergies/Adverse Reactions: Allergies heparin Adverse Reaction (Verified 09/29/20 16:33) thrombocytopenia PF4 Home Medications: Home Medications Medication Instructions Recorded Confirmed Last Taken Type AtorvaSTATin [Lipitor] 20 mg PO QHS 09/18/20 09/18/20 Unknown History Dolutegravir [Tivicay] 50 mg PO DAILY 09/18/20 09/18/20 Unknown History Emtricitabine/Tenofov Alafenam 1 tab PO DAILY 09/18/20 09/18/20 Unknown History [Descovy 200-25 mg (Nf)] allopurinoL [Zyloprim] 300 mg PO QDAY 09/18/20 09/18/20 Unknown History Ascorbic Acid [Vitamin C] 500 mg PO BID #60 tablet 10/01/20 Unknown Rx Cholecalciferol Vit D3 [Vitamin D3 1,000 unit PO QDAY #30 tablet 10/01/20 Unknown Rx 1,000 UNIT TAB] Famotidine [Pepcid] 20 mg PO DAILY #30 tablet 10/01/20 Unknown Rx Zinc Sulfate 220 mg PO QDAY #30 capsule 10/01/20 Unknown Rx carvediloL [Coreg] 3.125 mg PO BID #60 tablet 10/01/20 Unknown Rx Amiodarone [Cordarone 200 MG TAB] 200 mg PO BID #60 tablet 10/15/20 Unknown Rx Apixaban [Eliquis] 5 mg PO Q12HR #60 tablet 10/15/20 Unknown Rx Midodrine [Proamatine] 10 mg PO TID@0800,1200,1600 #90 10/15/20 Unknown Rx tablet QUEtiapine [SEROquel] 12.5 mg PO QHS #30 tablet 10/15/20 Unknown Rx Tamsulosin [Flomax] 0.4 mg PO QDAY #30 capsule 10/15/20 Unknown Rx Valproic Acid [Depakene] 250 mg PO BID #60 capsule 10/15/20 Unknown Rx Active Medications: Generic Name Dose Route Start Last Admin Trade Name Freq PRN Reason Stop Dose Admin Acetaminophen 650 mg 09/17/20 13:52 10/13/20 11:55 Acetaminophen 325 Mg Tab PO 650 mg Q4H PRN Administration Pain MILD(1-3)/Fever >100.5/ANGEL Albuterol 2.5 mg 09/17/20 13:52 09/17/20 20:47 Albuterol 2.5 Mg/3 Ml Nebu IH 2.5 mg Q4HRT PRN Administration Shortness Of Breath Amiodarone HCl 200 mg 10/01/20 22:00 10/15/20 10:02 Amiodarone 200 Mg Tab PO 200 mg BID EDIE Administration Lipase/Protease/Amylase 1 each 09/20/20 13:10 Lipase 10,500/Protease 25,000/Amylase 43,750 (Units) Dr Patrick FEEDTUBE PRN PRN For Clogged Feeding Tube Apixaban 5 mg 10/05/20 22:00 10/15/20 10:00 Apixaban 5 Mg Tab PO 5 mg Q12HR EDIE Administration Ascorbic Acid 500 mg 09/20/20 22:00 10/15/20 09:58 Ascorbic Acid 500 Mg Tab PO 500 mg BID EDIE Administration Cholecalciferol 1,000 unit 09/21/20 10:00 10/15/20 09:59 Cholecalciferol (Vit D3) 1000 Unit (25 Mcg) Tab PO 1,000 unit QDAY EDIE Administration Docusate Sodium 100 mg 10/05/20 11:00 10/15/20 10:00 Docusate Sodium 100 Mg/10 Ml Oral Liqd PO 100 mg BID EDIE Administration Emtricitabine 200 mg 09/30/20 11:00 10/14/20 10:33 Emtricitabine 200 Mg Cap PO 200 mg Q48H EDIE Administration Famotidine 20 mg 09/24/20 10:00 10/15/20 10:00 Famotidine 20 Mg Tab PO 20 mg DAILY EDIE Administration Haloperidol Lactate 5 mg 10/01/20 11:34 10/14/20 15:33 Haloperidol Lactate 5 Mg/1 Ml Inj IM 5 mg Q6H PRN Administration Agitation Sodium Chloride 1,000 mls @ 50 mls/hr 10/11/20 15:45 10/15/20 04:28 Nacl 0.9% 1000 Ml IV 50 mls/hr DIRECT EDIE Administration Metoprolol Tartrate 12.5 mg 10/14/20 10:00 10/15/20 10:01 Metoprolol Tartrate 25 Mg Tab PO Not Given BID EDIE Midodrine 10 mg 10/07/20 08:00 10/15/20 09:59 Midodrine 5 Mg Tab PO 10 mg TID@0800,1200,1600 EDIE Administration Ondansetron HCl 4 mg 09/17/20 13:52 Ondansetron 4 Mg/2 Ml Inj IV Q8H PRN Nausea And Vomiting Quetiapine Fumarate 12.5 mg 10/03/20 22:00 10/14/20 22:56 Quetiapine 25 Mg Tab PO 12.5 mg QHS EDIE Administration Simple Syrup 15 ml 09/20/20 13:10 Simple Syrup 15 Ml FEEDTUBE PRN PRN Hypoglycemia Simple Syrup 30 ml 09/20/20 13:10 Simple Syrup 15 Ml FEEDTUBE PRN PRN Hypoglycemia Sodium Bicarbonate 325 mg 09/20/20 13:10 Sodium Bicarbonate 325 Mg Tab FEEDTUBE PRN PRN For Clogged Feeding Tube Sodium Chloride 10 ml 09/17/20 22:00 10/15/20 10:01 Sodium Chloride 0.9% 10 Ml Flush Syringe IV 10 ml BID EDIE Administration Sodium Chloride 10 ml 09/17/20 13:52 10/12/20 10:19 Sodium Chloride 0.9% 10 Ml Flush Syringe IV 10 ml PRN PRN Administration LINE FLUSH Tamsulosin HCl 0.4 mg 10/07/20 13:00 10/15/20 10:00 Tamsulosin 0.4 Mg Cap PO 0.4 mg QDAY EDIE Administration Tenofovir Disoproxil Fumarate 300 mg 09/30/20 11:00 10/14/20 10:33 Tenofovir 300 Mg Tab PO 300 mg Q48H EDIE Administration Valproic Acid 250 mg 10/03/20 22:00 10/15/20 09:59 Valproic Acid 250 Mg Cap PO 250 mg BID EDIE Administration Zinc Sulfate 220 mg 09/21/20 10:00 10/15/20 10:00 Zinc Sulfate 220 Mg Cap PO 220 mg QDAY EDIE Administration
--- NOTE | 2020-10-15 16:22 | Progress Note ---
Assessment and Plan Acute hypoxemic respiratory failure. Atrial fibrillation with rapid ventricular response. Gram negative bacteremia Acute congestive heart failure exacerbation. Acute on chronic kidney injury. Anemia that is microcytic. Coagulopathy appears to be acquired. Respiratory alkalosis. Mild metabolic acidosis. Possible severe sepsis with shock due to a urinary tract infection. Urinary tract infection HIV COVID positive - Continue to titrate supplemental oxygen to keep O2 sast 89-92% -continue with aspiration precautions, HOB >40 - ART therapy per ID service - continue bronchodilators with pulmonary hygiene per RT - continue accuchecks with glycemic control per SSI (Ttarget blood glucose of 140-180 mg/dL; avoid hypoglycemia) - avoid nephrotoxins, renally dose all medications - continue to avoid benzodiazepines, reduce the possibility of delirium - prn analgesia per pain score - Maintain of sleep-wake cycle, avoid delirium - Stress ulcer and VTE prophylaxis( Famotidine and SCDs, no chemical anticoagulation secondary to thrombocytopenia) - PT/OT/ROM exercises - continue mobility, off loading, frequent turning per facility protocol to prevent pressure ulcers - Continue to monitor hemodynamics closely -Trend temperature curve andWCC, continue to monitor off antibiotics -Has a Gardner secondary to hematuria and urinary retention - continue other care per attending / other consultants COVID SPECIFIC INTERVENTIONS - Did not receive Remdesivir secondary to renal failure - Completed Dexamethasone - zinc and vitamin C supplementation - Monitor inflammatory markers per facility protocol - ferritin, D dimer, CRP - therapeutic anticoagulation per system Protocol based on d-dimer and clinical considerations - Continue contact and airborne isolation per facility protocol Subjective Date of service: 10/15/20 Principal diagnosis: Acute Hypoxemic Resp Failure; COVID-19 infxn; Septic Shock; A-Fib with RVR Interval history: Patient is seen today for: Acute hypoxemic respiratory failure; A-fib with RVR; AE-CHF; LOLI on CKD; Severe sepsis with shock; UTI Seen and examined at bedside; 24hour events reviewed; nursing and respiratory care staff consulted; no adverse overnight events reported to me; resting peacefully in bed; no emesis or overt aspiration; no documented fevers, Awake and alert, weak, states that he will be going home today Objective Vital Signs - 12hr 10/15/20 10/15/20 10:01 10:20 Pulse Rate 109 H 109 H Blood Pressure 93/65 Blood Pressure 93/65 [Right] O2 Sat by Pulse 96 Oximetry Constitutional: no acute distress, alert, other (elderly male without increased respiratory effort at rest) Eyes: non-icteric ENT: oropharynx moist Neck: supple, no lymphadenopathy, no JVD Effort: normal Ascultation: Bilateral: clear, rhonchi, other (right SCVL Trialysis catheter) Percussion: Bilateral: not dull Cardiovascular: irregular rhythm Gastrointestinal: normoactive bowel sounds, soft, non-tender, non-distended Integumentary: normal Extremities: no cyanosis, no edema, pulses normal, no ischemia or petechiae Neurologic: non-focal exam (grossly), pupils equal and round, CN II-XII normal, motor strength normal and Psychiatric: mood appropriate, affect normal CBC and BMP: 10/12/20 13:42 10/16/20 05:12 ABG, PT/INR, D-dimer: ABG ABG pH 7.508 (7.320-7.450) H 09/17/20 10:28 POC ABG pCO2 22.8 mmHg (32.0-48.0) L 09/17/20 10:28 POC ABG pO2 66.8 mmHg (83-108) L 09/17/20 10:28 POC ABG HCO3 17.7 09/17/20 10:28 ABG O2 Saturation 93.4 (0-100) 09/17/20 10:28 PT/INR, D-dimer PT 15.7 Sec. (12.2-14.9) H 09/24/20 12:13 INR 1.27 (0.87-1.13) H 09/24/20 12:13 D-Dimer 1772.86 ng/mlDDU (0-234) H 09/24/20 05:00 Abnormal lab findings: Abnormal Labs 09/17/20 09/17/20 09/17/20 10:28 10:47 10:47 WBC 11.1 H RBC 3.44 L Hgb 11.2 L Hct 32.8 L MCV 95 H MCH MCHC RDW Plt Count Lymph % (Auto) [place] % (Auto) Lymph # (Auto) [place] # (Auto) Seg Neutrophils % Seg Neuts % (Manual) Lymphocytes % (Manual) 4.0 L Monocytes % (Manual) Nucleated RBC % Seg Neutrophils # Seg Neutrophils # Man 10.7 H Abs Lymphs (Manual) Lymphocytes # (Manual) 0.4 L PT 32.9 H INR 3.16 H APTT 51.1 H D-Dimer Heparin Anti-Xa Level ABG pH 7.508 H POC ABG pCO2 22.8 L POC ABG pO2 66.8 L ABG Oxyhemoglobin 92.7 L ABG Sodium 127.4 L ABG Potassium 4.7 H ABG Glucose 121 H Carboxyhemoglobin 0.4 L Sodium Potassium Chloride Carbon Dioxide BUN Creatinine Glucose POC Glucose Calcium Phosphorus Ferritin Total Bilirubin AST ALT Alkaline Phosphatase Lactate Dehydrogenase Total Creatine Kinase Troponin T C-Reactive Protein NT-Pro-B Natriuret Pep Serum Total Protein Total Protein Albumin Cholesterol LDL Cholesterol Direct HDL Cholesterol PTH Intact Arterial Blood Glucose 121 H Urine WBC (Auto) Urine Creatinine Valproic Acid Heparin-induced Plt Ab Lymph Enumerat CD4/CD8 Absolute CD3 Count Absolute CD4 Count % CD8 Cells Absolute CD8 Count Absolute CD19 Count Coronavirus (PCR) HIV-1 RNA PCR copies/ml HIV-1 RNA (PCR) log 09/17/20 09/17/20 09/17/20 10:47 10:47 13:54 WBC RBC Hgb Hct MCV MCH MCHC RDW Plt Count Lymph % (Auto) [place] % (Auto) Lymph # (Auto) [place] # (Auto) Seg Neutrophils % Seg Neuts % (Manual) Lymphocytes % (Manual) Monocytes % (Manual) Nucleated RBC % Seg Neutrophils # Seg Neutrophils # Man Abs Lymphs (Manual) Lymphocytes # (Manual) PT INR APTT D-Dimer Heparin Anti-Xa Level ABG pH POC ABG pCO2 POC ABG pO2 ABG Oxyhemoglobin ABG Sodium ABG Potassium ABG Glucose Carboxyhemoglobin Sodium 125 L Potassium Chloride 95.3 L Carbon Dioxide 17 L BUN 64 H Creatinine 4.6 H D Glucose 104 H POC Glucose Calcium Phosphorus Ferritin Total Bilirubin AST 69 H ALT Alkaline Phosphatase Lactate Dehydrogenase Total Creatine Kinase Troponin T 0.061 H D 0.058 H C-Reactive Protein NT-Pro-B Natriuret Pep 01062 H Serum Total Protein Total Protein Albumin 1.9 L Cholesterol 48 L LDL Cholesterol Direct 4 L HDL Cholesterol 9 L PTH Intact Arterial Blood Glucose Urine WBC (Auto) Urine Creatinine Valproic Acid Heparin-induced Plt Ab Lymph Enumerat CD4/CD8 Absolute CD3 Count Absolute CD4 Count % CD8 Cells Absolute CD8 Count Absolute CD19 Count Coronavirus (PCR) HIV-1 RNA PCR copies/ml HIV-1 RNA (PCR) log 09/17/20 09/17/20 09/17/20 16:36 17:35 17:35 WBC RBC 3.25 L Hgb 10.7 L Hct 31.1 L MCV 96 H MCH 33 H MCHC RDW Plt Count Lymph % (Auto) [place] % (Auto) Lymph # (Auto) [place] # (Auto) Seg Neutrophils % Seg Neuts % (Manual) Lymphocytes % (Manual) Monocytes % (Manual) Nucleated RBC % Seg Neutrophils # Seg Neutrophils # Man Abs Lymphs (Manual) Lymphocytes # (Manual) PT 31.9 H INR 3.04 H APTT 50.9 H D-Dimer Heparin Anti-Xa Level ABG pH POC ABG pCO2 POC ABG pO2 ABG Oxyhemoglobin ABG Sodium ABG Potassium ABG Glucose Carboxyhemoglobin Sodium Potassium Chloride Carbon Dioxide BUN Creatinine Glucose POC Glucose Calcium Phosphorus Ferritin Total Bilirubin AST ALT Alkaline Phosphatase Lactate Dehydrogenase Total Creatine Kinase Troponin T 0.057 H C-Reactive Protein NT-Pro-B Natriuret Pep Serum Total Protein Total Protein Albumin Cholesterol LDL Cholesterol Direct HDL Cholesterol PTH Intact Arterial Blood Glucose Urine WBC (Auto) Urine Creatinine Valproic Acid Heparin-induced Plt Ab Lymph Enumerat CD4/CD8 Absolute CD3 Count Absolute CD4 Count % CD8 Cells Absolute CD8 Count Absolute CD19 Count Coronavirus (PCR) HIV-1 RNA PCR copies/ml HIV-1 RNA (PCR) log 09/17/20 09/18/20 09/18/20 17:35 03:19 03:19 WBC RBC 3.32 L Hgb 10.9 L Hct 32.0 L MCV 96 H MCH 33 H MCHC RDW Plt Count 138 L Lymph % (Auto) [place] % (Auto) Lymph # (Auto) [place] # (Auto) Seg Neutrophils % Seg Neuts % (Manual) 95.0 H Lymphocytes % (Manual) 3.0 L Monocytes % (Manual) Nucleated RBC % Seg Neutrophils # Seg Neutrophils # Man 8.1 H Abs Lymphs (Manual) Lymphocytes # (Manual) 0.3 L PT INR APTT D-Dimer Heparin Anti-Xa Level ABG pH POC ABG pCO2 POC ABG pO2 ABG Oxyhemoglobin ABG Sodium ABG Potassium ABG Glucose Carboxyhemoglobin Sodium Potassium Chloride Carbon Dioxide 16 L BUN 70 H Creatinine 4.6 H 4.7 H Glucose 104 H POC Glucose Calcium 8.2 L Phosphorus Ferritin Total Bilirubin 1.60 H AST 128 H ALT 67 H Alkaline Phosphatase Lactate Dehydrogenase Total Creatine Kinase Troponin T C-Reactive Protein NT-Pro-B Natriuret Pep Serum Total Protein Total Protein 5.2 L D Albumin 2.5 L Cholesterol LDL Cholesterol Direct HDL Cholesterol PTH Intact Arterial Blood Glucose Urine WBC (Auto) Urine Creatinine Valproic Acid Heparin-induced Plt Ab Lymph Enumerat CD4/CD8 Absolute CD3 Count Absolute CD4 Count % CD8 Cells Absolute CD8 Count Absolute CD19 Count Coronavirus (PCR) HIV-1 RNA PCR copies/ml HIV-1 RNA (PCR) log 09/18/20 09/18/20 09/18/20 09:39 12:00 12:00 WBC RBC Hgb Hct MCV MCH MCHC RDW Plt Count Lymph % (Auto) [place] % (Auto) Lymph # (Auto) [place] # (Auto) Seg Neutrophils % Seg Neuts % (Manual) Lymphocytes % (Manual) Monocytes % (Manual) Nucleated RBC % Seg Neutrophils # Seg Neutrophils # Man Abs Lymphs (Manual) Lymphocytes # (Manual) PT INR APTT D-Dimer Heparin Anti-Xa Level ABG pH POC ABG pCO2 POC ABG pO2 ABG Oxyhemoglobin ABG Sodium ABG Potassium ABG Glucose Carboxyhemoglobin Sodium Potassium Chloride Carbon Dioxide BUN Creatinine Glucose POC Glucose Calcium Phosphorus Ferritin Total Bilirubin AST ALT Alkaline Phosphatase Lactate Dehydrogenase Total Creatine Kinase Troponin T C-Reactive Protein NT-Pro-B Natriuret Pep Serum Total Protein Total Protein Albumin Cholesterol LDL Cholesterol Direct HDL Cholesterol PTH Intact Arterial Blood Glucose Urine WBC (Auto) 71.0 H Urine Creatinine 61.0 H Valproic Acid Heparin-induced Plt Ab Lymph Enumerat CD4/CD8 Absolute CD3 Count Absolute CD4 Count % CD8 Cells Absolute CD8 Count Absolute CD19 Count Coronavirus (PCR) Positive A HIV-1 RNA PCR copies/ml HIV-1 RNA (PCR) log 09/18/20 09/18/20 09/18/20 15:07 15:07 18:33 WBC RBC Hgb 10.7 L Hct 31.3 L MCV MCH MCHC RDW Plt Count Lymph % (Auto) [place] % (Auto) Lymph # (Auto) [place] # (Auto) Seg Neutrophils % Seg Neuts % (Manual) Lymphocytes % (Manual) Monocytes % (Manual) Nucleated RBC % Seg Neutrophils # Seg Neutrophils # Man Abs Lymphs (Manual) Lymphocytes # (Manual) PT 20.3 H INR 1.73 H APTT 40.8 H D-Dimer Heparin Anti-Xa Level 1.09 H ABG pH POC ABG pCO2 POC ABG pO2 ABG Oxyhemoglobin ABG Sodium ABG Potassium ABG Glucose Carboxyhemoglobin Sodium Potassium Chloride Carbon Dioxide BUN Creatinine Glucose POC Glucose Calcium Phosphorus Ferritin Total Bilirubin AST ALT Alkaline Phosphatase Lactate Dehydrogenase Total Creatine Kinase Troponin T C-Reactive Protein NT-Pro-B Natriuret Pep Serum Total Protein Total Protein Albumin Cholesterol LDL Cholesterol Direct HDL Cholesterol PTH Intact Arterial Blood Glucose Urine WBC (Auto) Urine Creatinine Valproic Acid Heparin-induced Plt Ab Lymph Enumerat CD4/CD8 Absolute CD3 Count Absolute CD4 Count % CD8 Cells Absolute CD8 Count Absolute CD19 Count Coronavirus (PCR) HIV-1 RNA PCR copies/ml HIV-1 RNA (PCR) log 09/19/20 09/19/20 09/19/20 03:30 03:30 03:30 WBC RBC 3.29 L Hgb 10.9 L Hct 30.9 L MCV MCH 33 H MCHC 35 H RDW Plt Count Lymph % (Auto) [place] % (Auto) Lymph # (Auto) [place] # (Auto) Seg Neutrophils % Seg Neuts % (Manual) Lymphocytes % (Manual) Monocytes % (Manual) Nucleated RBC % Seg Neutrophils # Seg Neutrophils # Man Abs Lymphs (Manual) Lymphocytes # (Manual) PT INR APTT D-Dimer Heparin Anti-Xa Level ABG pH POC ABG pCO2 POC ABG pO2 ABG Oxyhemoglobin ABG Sodium ABG Potassium ABG Glucose Carboxyhemoglobin Sodium 133 L Potassium Chloride Carbon Dioxide 17 L BUN 94 H Creatinine 5.0 H Glucose 120 H POC Glucose Calcium Phosphorus 6.30 H Ferritin Total Bilirubin 2.40 H AST 163 H ALT 109 H Alkaline Phosphatase 160 H Lactate Dehydrogenase Total Creatine Kinase 20 L Troponin T C-Reactive Protein NT-Pro-B Natriuret Pep Serum Total Protein Total Protein 6.2 L Albumin 2.0 L Cholesterol LDL Cholesterol Direct HDL Cholesterol PTH Intact 161.4 H Arterial Blood Glucose Urine WBC (Auto) Urine Creatinine Valproic Acid Heparin-induced Plt Ab Lymph Enumerat CD4/CD8 Absolute CD3 Count Absolute CD4 Count % CD8 Cells Absolute CD8 Count Absolute CD19 Count Coronavirus (PCR) HIV-1 RNA PCR copies/ml HIV-1 RNA (PCR) log 09/19/20 09/19/20 09/19/20 06:35 13:35 13:35 WBC RBC Hgb Hct MCV MCH MCHC RDW Plt Count Lymph % (Auto) [place] % (Auto) Lymph # (Auto) [place] # (Auto) Seg Neutrophils % Seg Neuts % (Manual) Lymphocytes % (Manual) Monocytes % (Manual) Nucleated RBC % Seg Neutrophils # Seg Neutrophils # Man Abs Lymphs (Manual) 223 L Lymphocytes # (Manual) PT INR APTT D-Dimer Heparin Anti-Xa Level ABG pH POC ABG pCO2 POC ABG pO2 ABG Oxyhemoglobin ABG Sodium ABG Potassium ABG Glucose Carboxyhemoglobin Sodium Potassium Chloride Carbon Dioxide BUN Creatinine Glucose POC Glucose 123 H Calcium Phosphorus Ferritin Total Bilirubin AST ALT Alkaline Phosphatase Lactate Dehydrogenase Total Creatine Kinase Troponin T C-Reactive Protein NT-Pro-B Natriuret Pep Serum Total Protein Total Protein Albumin Cholesterol LDL Cholesterol Direct HDL Cholesterol PTH Intact Arterial Blood Glucose Urine WBC (Auto) Urine Creatinine Valproic Acid Heparin-induced Plt Ab Lymph Enumerat CD4/CD8 0.70 L Absolute CD3 Count 175 L Absolute CD4 Count 70 L % CD8 Cells 45 H Absolute CD8 Count 101 L Absolute CD19 Count 26 L Coronavirus (PCR) HIV-1 RNA PCR copies/ml 67 H HIV-1 RNA (PCR) log 1.83 H 09/19/20 09/20/20 09/20/20 23:37 04:00 04:00 WBC RBC 3.43 L Hgb 11.1 L Hct 32.2 L MCV MCH MCHC RDW Plt Count 131 L Lymph % (Auto) [place] % (Auto) Lymph # (Auto) [place] # (Auto) Seg Neutrophils % Seg Neuts % (Manual) 88.0 H Lymphocytes % (Manual) 3.0 L Monocytes % (Manual) 9.0 H Nucleated RBC % Seg Neutrophils # Seg Neutrophils # Man 8.2 H Abs Lymphs (Manual) Lymphocytes # (Manual) 0.3 L PT INR APTT D-Dimer Heparin Anti-Xa Level 0.10 L ABG pH POC ABG pCO2 POC ABG pO2 ABG Oxyhemoglobin ABG Sodium ABG Potassium ABG Glucose Carboxyhemoglobin Sodium Potassium Chloride Carbon Dioxide BUN Creatinine Glucose POC Glucose 135 H Calcium Phosphorus Ferritin Total Bilirubin AST ALT Alkaline Phosphatase Lactate Dehydrogenase Total Creatine Kinase Troponin T C-Reactive Protein NT-Pro-B Natriuret Pep Serum Total Protein Total Protein Albumin Cholesterol LDL Cholesterol Direct HDL Cholesterol PTH Intact Arterial Blood Glucose Urine WBC (Auto) Urine Creatinine Valproic Acid Heparin-induced Plt Ab Lymph Enumerat CD4/CD8 Absolute CD3 Count Absolute CD4 Count % CD8 Cells Absolute CD8 Count Absolute CD19 Count Coronavirus (PCR) HIV-1 RNA PCR copies/ml HIV-1 RNA (PCR) log 09/20/20 09/20/20 09/20/20 04:00 05:37 11:20 WBC RBC Hgb Hct MCV MCH MCHC RDW Plt Count Lymph % (Auto) [place] % (Auto) Lymph # (Auto) [place] # (Auto) Seg Neutrophils % Seg Neuts % (Manual) Lymphocytes % (Manual) Monocytes % (Manual) Nucleated RBC % Seg Neutrophils # Seg Neutrophils # Man Abs Lymphs (Manual) Lymphocytes # (Manual) PT INR APTT D-Dimer Heparin Anti-Xa Level ABG pH POC ABG pCO2 POC ABG pO2 ABG Oxyhemoglobin ABG Sodium ABG Potassium ABG Glucose Carboxyhemoglobin Sodium Potassium Chloride Carbon Dioxide 16 L BUN 119 H Creatinine 6.2 H Glucose 136 H POC Glucose 137 H 108 H Calcium Phosphorus Ferritin Total Bilirubin AST ALT Alkaline Phosphatase Lactate Dehydrogenase Total Creatine Kinase Troponin T C-Reactive Protein NT-Pro-B Natriuret Pep Serum Total Protein Total Protein Albumin Cholesterol LDL Cholesterol Direct HDL Cholesterol PTH Intact Arterial Blood Glucose Urine WBC (Auto) Urine Creatinine Valproic Acid Heparin-induced Plt Ab Lymph Enumerat CD4/CD8 Absolute CD3 Count Absolute CD4 Count % CD8 Cells Absolute CD8 Count Absolute CD19 Count Coronavirus (PCR) HIV-1 RNA PCR copies/ml HIV-1 RNA (PCR) log 09/20/20 09/20/20 09/20/20 17:10 17:10 17:10 WBC RBC Hgb Hct MCV MCH MCHC RDW Plt Count Lymph % (Auto) [place] % (Auto) Lymph # (Auto) [place] # (Auto) Seg Neutrophils % Seg Neuts % (Manual) Lymphocytes % (Manual) Monocytes % (Manual) Nucleated RBC % Seg Neutrophils # Seg Neutrophils # Man Abs Lymphs (Manual) Lymphocytes # (Manual) PT INR APTT D-Dimer 4271.58 H Heparin Anti-Xa Level ABG pH POC ABG pCO2 POC ABG pO2 ABG Oxyhemoglobin ABG Sodium ABG Potassium ABG Glucose Carboxyhemoglobin Sodium Potassium Chloride Carbon Dioxide BUN Creatinine 6.0 H Glucose POC Glucose Calcium Phosphorus Ferritin 696.6 H Total Bilirubin AST ALT Alkaline Phosphatase Lactate Dehydrogenase Total Creatine Kinase Troponin T C-Reactive Protein NT-Pro-B Natriuret Pep Serum Total Protein Total Protein Albumin Cholesterol LDL Cholesterol Direct HDL Cholesterol PTH Intact Arterial Blood Glucose Urine WBC (Auto) Urine Creatinine Valproic Acid Heparin-induced Plt Ab Lymph Enumerat CD4/CD8 Absolute CD3 Count Absolute CD4 Count % CD8 Cells Absolute CD8 Count Absolute CD19 Count Coronavirus (PCR) HIV-1 RNA PCR copies/ml HIV-1 RNA (PCR) log 09/20/20 09/20/20 09/20/20 17:10 18:21 23:14 WBC RBC Hgb Hct MCV MCH MCHC RDW Plt Count Lymph % (Auto) [place] % (Auto) Lymph # (Auto) [place] # (Auto) Seg Neutrophils % Seg Neuts % (Manual) Lymphocytes % (Manual) Monocytes % (Manual) Nucleated RBC % Seg Neutrophils # Seg Neutrophils # Man Abs Lymphs (Manual) Lymphocytes # (Manual) PT INR APTT D-Dimer Heparin Anti-Xa Level ABG pH POC ABG pCO2 POC ABG pO2 ABG Oxyhemoglobin ABG Sodium ABG Potassium ABG Glucose Carboxyhemoglobin Sodium Potassium Chloride Carbon Dioxide BUN Creatinine Glucose POC Glucose 129 H 170 H Calcium Phosphorus Ferritin Total Bilirubin AST ALT Alkaline Phosphatase Lactate Dehydrogenase 209 H Total Creatine Kinase Troponin T C-Reactive Protein 10.60 H NT-Pro-B Natriuret Pep Serum Total Protein Total Protein Albumin Cholesterol LDL Cholesterol Direct HDL Cholesterol PTH Intact Arterial Blood Glucose Urine WBC (Auto) Urine Creatinine Valproic Acid Heparin-induced Plt Ab Lymph Enumerat CD4/CD8 Absolute CD3 Count Absolute CD4 Count % CD8 Cells Absolute CD8 Count Absolute CD19 Count Coronavirus (PCR) HIV-1 RNA PCR copies/ml HIV-1 RNA (PCR) log 09/21/20 09/21/20 09/21/20 05:35 17:09 23:18 WBC RBC Hgb Hct MCV MCH MCHC RDW Plt Count Lymph % (Auto) [place] % (Auto) Lymph # (Auto) [place] # (Auto) Seg Neutrophils % Seg Neuts % (Manual) Lymphocytes % (Manual) Monocytes % (Manual) Nucleated RBC % Seg Neutrophils # Seg Neutrophils # Man Abs Lymphs (Manual) Lymphocytes # (Manual) PT INR APTT D-Dimer Heparin Anti-Xa Level ABG pH POC ABG pCO2 POC ABG pO2 ABG Oxyhemoglobin ABG Sodium ABG Potassium ABG Glucose Carboxyhemoglobin Sodium Potassium Chloride Carbon Dioxide BUN Creatinine Glucose POC Glucose 170 H 140 H 139 H Calcium Phosphorus Ferritin Total Bilirubin AST ALT Alkaline Phosphatase Lactate Dehydrogenase Total Creatine Kinase Troponin T C-Reactive Protein NT-Pro-B Natriuret Pep Serum Total Protein Total Protein Albumin Cholesterol LDL Cholesterol Direct HDL Cholesterol PTH Intact Arterial Blood Glucose Urine WBC (Auto) Urine Creatinine Valproic Acid Heparin-induced Plt Ab Lymph Enumerat CD4/CD8 Absolute CD3 Count Absolute CD4 Count % CD8 Cells Absolute CD8 Count Absolute CD19 Count Coronavirus (PCR) HIV-1 RNA PCR copies/ml HIV-1 RNA (PCR) log 09/21/20 09/21/20 09/21/20 Unknown Unknown Unknown WBC RBC 3.56 L Hgb 11.3 L Hct 33.2 L MCV MCH MCHC RDW Plt Count 125 L Lymph % (Auto) [place] % (Auto) Lymph # (Auto) [place] # (Auto) Seg Neutrophils % Seg Neuts % (Manual) 90.0 H Lymphocytes % (Manual) 8.0 L Monocytes % (Manual) Nucleated RBC % 1.0 H Seg Neutrophils # Seg Neutrophils # Man 9.4 H Abs Lymphs (Manual) Lymphocytes # (Manual) 0.8 L PT 16.8 H INR 1.36 H APTT D-Dimer Heparin Anti-Xa Level ABG pH POC ABG pCO2 POC ABG pO2 ABG Oxyhemoglobin ABG Sodium ABG Potassium ABG Glucose Carboxyhemoglobin Sodium Potassium Chloride Carbon Dioxide BUN 83 H Creatinine 4.3 H Glucose 163 H POC Glucose Calcium Phosphorus Ferritin Total Bilirubin 2.40 H AST ALT 57 H Alkaline Phosphatase < 5 L Lactate Dehydrogenase Total Creatine Kinase Troponin T C-Reactive Protein NT-Pro-B Natriuret Pep Serum Total Protein Total Protein Albumin 1.9 L Cholesterol LDL Cholesterol Direct HDL Cholesterol PTH Intact Arterial Blood Glucose Urine WBC (Auto) Urine Creatinine Valproic Acid Heparin-induced Plt Ab Lymph Enumerat CD4/CD8 Absolute CD3 Count Absolute CD4 Count % CD8 Cells Absolute CD8 Count Absolute CD19 Count Coronavirus (PCR) HIV-1 RNA PCR copies/ml HIV-1 RNA (PCR) log 09/22/20 09/22/20 09/22/20 05:38 05:38 05:38 WBC 15.8 H RBC 3.36 L Hgb 10.8 L Hct 31.0 L MCV MCH MCHC 35 H RDW Plt Count 68 L Lymph % (Auto) 3.1 L [place] % (Auto) 10.7 H Lymph # (Auto) 0.5 L [place] # (Auto) 1.7 H Seg Neutrophils % 85.9 H Seg Neuts % (Manual) Lymphocytes % (Manual) Monocytes % (Manual) Nucleated RBC % Seg Neutrophils # 13.6 H Seg Neutrophils # Man Abs Lymphs (Manual) Lymphocytes # (Manual) PT INR APTT D-Dimer 3281.49 H Heparin Anti-Xa Level ABG pH POC ABG pCO2 POC ABG pO2 ABG Oxyhemoglobin ABG Sodium ABG Potassium ABG Glucose Carboxyhemoglobin Sodium Potassium Chloride Carbon Dioxide BUN 61 H Creatinine 3.1 H Glucose 129 H POC Glucose Calcium Phosphorus Ferritin Total Bilirubin AST ALT Alkaline Phosphatase Lactate Dehydrogenase 277 H Total Creatine Kinase Troponin T C-Reactive Protein 6.60 H NT-Pro-B Natriuret Pep Serum Total Protein Total Protein Albumin Cholesterol LDL Cholesterol Direct HDL Cholesterol PTH Intact Arterial Blood Glucose Urine WBC (Auto) Urine Creatinine Valproic Acid Heparin-induced Plt Ab Lymph Enumerat CD4/CD8 Absolute CD3 Count Absolute CD4 Count % CD8 Cells Absolute CD8 Count Absolute CD19 Count Coronavirus (PCR) HIV-1 RNA PCR copies/ml HIV-1 RNA (PCR) log 09/22/20 09/22/20 09/22/20 05:38 05:44 11:26 WBC RBC Hgb Hct MCV MCH MCHC RDW Plt Count Lymph % (Auto) [place] % (Auto) Lymph # (Auto) [place] # (Auto) Seg Neutrophils % Seg Neuts % (Manual) Lymphocytes % (Manual) Monocytes % (Manual) Nucleated RBC % Seg Neutrophils # Seg Neutrophils # Man Abs Lymphs (Manual) Lymphocytes # (Manual) PT INR APTT D-Dimer Heparin Anti-Xa Level ABG pH POC ABG pCO2 POC ABG pO2 ABG Oxyhemoglobin ABG Sodium ABG Potassium ABG Glucose Carboxyhemoglobin Sodium Potassium Chloride Carbon Dioxide BUN Creatinine Glucose POC Glucose 112 H 131 H Calcium Phosphorus Ferritin 927.8 H Total Bilirubin AST ALT Alkaline Phosphatase Lactate Dehydrogenase Total Creatine Kinase Troponin T C-Reactive Protein NT-Pro-B Natriuret Pep Serum Total Protein Total Protein Albumin Cholesterol LDL Cholesterol Direct HDL Cholesterol PTH Intact Arterial Blood Glucose Urine WBC (Auto) Urine Creatinine Valproic Acid Heparin-induced Plt Ab Lymph Enumerat CD4/CD8 Absolute CD3 Count Absolute CD4 Count % CD8 Cells Absolute CD8 Count Absolute CD19 Count Coronavirus (PCR) HIV-1 RNA PCR copies/ml HIV-1 RNA (PCR) log 09/22/20 09/22/20 09/22/20 15:12 15:12 15:12 WBC RBC Hgb Hct MCV MCH MCHC RDW Plt Count Lymph % (Auto) [place] % (Auto) Lymph # (Auto) [place] # (Auto) Seg Neutrophils % Seg Neuts % (Manual) Lymphocytes % (Manual) Monocytes % (Manual) Nucleated RBC % Seg Neutrophils # Seg Neutrophils # Man Abs Lymphs (Manual) Lymphocytes # (Manual) PT 17.3 H INR 1.42 H APTT D-Dimer Heparin Anti-Xa Level ABG pH POC ABG pCO2 POC ABG pO2 ABG Oxyhemoglobin ABG Sodium ABG Potassium ABG Glucose Carboxyhemoglobin Sodium Potassium Chloride Carbon Dioxide BUN Creatinine 3.0 H Glucose POC Glucose Calcium Phosphorus Ferritin Total Bilirubin AST ALT Alkaline Phosphatase Lactate Dehydrogenase Total Creatine Kinase Troponin T C-Reactive Protein NT-Pro-B Natriuret Pep Serum Total Protein Total Protein Albumin Cholesterol LDL Cholesterol Direct HDL Cholesterol PTH Intact Arterial Blood Glucose Urine WBC (Auto) Urine Creatinine Valproic Acid Heparin-induced Plt Ab Weak positive H Lymph Enumerat CD4/CD8 Absolute CD3 Count Absolute CD4 Count % CD8 Cells Absolute CD8 Count Absolute CD19 Count Coronavirus (PCR) HIV-1 RNA PCR copies/ml HIV-1 RNA (PCR) log 09/22/20 09/22/20 09/23/20 16:53 23:55 04:36 WBC 14.2 H RBC 3.05 L Hgb 9.8 L Hct 28.4 L MCV MCH MCHC RDW Plt Count 39 L Lymph % (Auto) [place] % (Auto) Lymph # (Auto) [place] # (Auto) Seg Neutrophils % Seg Neuts % (Manual) 91.0 H Lymphocytes % (Manual) 2.0 L Monocytes % (Manual) Nucleated RBC % Seg Neutrophils # Seg Neutrophils # Man 12.9 H Abs Lymphs (Manual) Lymphocytes # (Manual) 0.3 L PT INR APTT D-Dimer Heparin Anti-Xa Level ABG pH POC ABG pCO2 POC ABG pO2 ABG Oxyhemoglobin ABG Sodium ABG Potassium ABG Glucose Carboxyhemoglobin Sodium Potassium Chloride Carbon Dioxide BUN Creatinine Glucose POC Glucose 138 H 171 H Calcium Phosphorus Ferritin Total Bilirubin AST ALT Alkaline Phosphatase Lactate Dehydrogenase Total Creatine Kinase Troponin T C-Reactive Protein NT-Pro-B Natriuret Pep Serum Total Protein Total Protein Albumin Cholesterol LDL Cholesterol Direct HDL Cholesterol PTH Intact Arterial Blood Glucose Urine WBC (Auto) Urine Creatinine Valproic Acid Heparin-induced Plt Ab Lymph Enumerat CD4/CD8 Absolute CD3 Count Absolute CD4 Count % CD8 Cells Absolute CD8 Count Absolute CD19 Count Coronavirus (PCR) HIV-1 RNA PCR copies/ml HIV-1 RNA (PCR) log 09/23/20 09/23/20 09/23/20 04:36 05:41 11:38 WBC RBC Hgb Hct MCV MCH MCHC RDW Plt Count Lymph % (Auto) [place] % (Auto) Lymph # (Auto) [place] # (Auto) Seg Neutrophils % Seg Neuts % (Manual) Lymphocytes % (Manual) Monocytes % (Manual) Nucleated RBC % Seg Neutrophils # Seg Neutrophils # Man Abs Lymphs (Manual) Lymphocytes # (Manual) PT INR APTT D-Dimer Heparin Anti-Xa Level ABG pH POC ABG pCO2 POC ABG pO2 ABG Oxyhemoglobin ABG Sodium ABG Potassium ABG Glucose Carboxyhemoglobin Sodium Potassium Chloride Carbon Dioxide BUN 76 H Creatinine 3.1 H Glucose 157 H POC Glucose 136 H 141 H Calcium Phosphorus Ferritin Total Bilirubin AST ALT Alkaline Phosphatase Lactate Dehydrogenase Total Creatine Kinase Troponin T C-Reactive Protein NT-Pro-B Natriuret Pep Serum Total Protein Total Protein Albumin Cholesterol LDL Cholesterol Direct HDL Cholesterol PTH Intact Arterial Blood Glucose Urine WBC (Auto) Urine Creatinine Valproic Acid Heparin-induced Plt Ab Lymph Enumerat CD4/CD8 Absolute CD3 Count Absolute CD4 Count % CD8 Cells Absolute CD8 Count Absolute CD19 Count Coronavirus (PCR) HIV-1 RNA PCR copies/ml HIV-1 RNA (PCR) log 09/23/20 09/23/20 09/24/20 17:09 23:51 05:00 WBC 24.2 H RBC 3.23 L Hgb 10.0 L Hct 29.7 L MCV MCH MCHC RDW Plt Count 74 L Lymph % (Auto) [place] % (Auto) Lymph # (Auto) [place] # (Auto) Seg Neutrophils % Seg Neuts % (Manual) Lymphocytes % (Manual) Monocytes % (Manual) Nucleated RBC % Seg Neutrophils # Seg Neutrophils # Man Abs Lymphs (Manual) Lymphocytes # (Manual) PT INR APTT D-Dimer Heparin Anti-Xa Level ABG pH POC ABG pCO2 POC ABG pO2 ABG Oxyhemoglobin ABG Sodium ABG Potassium ABG Glucose Carboxyhemoglobin Sodium Potassium Chloride Carbon Dioxide BUN Creatinine Glucose POC Glucose 128 H 128 H Calcium Phosphorus Ferritin Total Bilirubin AST ALT Alkaline Phosphatase Lactate Dehydrogenase Total Creatine Kinase Troponin T C-Reactive Protein NT-Pro-B Natriuret Pep Serum Total Protein Total Protein Albumin Cholesterol LDL Cholesterol Direct HDL Cholesterol PTH Intact Arterial Blood Glucose Urine WBC (Auto) Urine Creatinine Valproic Acid Heparin-induced Plt Ab Lymph Enumerat CD4/CD8 Absolute CD3 Count Absolute CD4 Count % CD8 Cells Absolute CD8 Count Absolute CD19 Count Coronavirus (PCR) HIV-1 RNA PCR copies/ml HIV-1 RNA (PCR) log 09/24/20 09/24/20 09/24/20 05:00 05:00 05:00 WBC RBC Hgb Hct MCV MCH MCHC RDW Plt Count Lymph % (Auto) [place] % (Auto) Lymph # (Auto) [place] # (Auto) Seg Neutrophils % Seg Neuts % (Manual) Lymphocytes % (Manual) Monocytes % (Manual) Nucleated RBC % Seg Neutrophils # Seg Neutrophils # Man Abs Lymphs (Manual) Lymphocytes # (Manual) PT INR APTT D-Dimer 1772.86 H Heparin Anti-Xa Level ABG pH POC ABG pCO2 POC ABG pO2 ABG Oxyhemoglobin ABG Sodium ABG Potassium ABG Glucose Carboxyhemoglobin Sodium Potassium Chloride 107.1 H Carbon Dioxide BUN 90 H Creatinine 3.1 H Glucose 118 H POC Glucose Calcium Phosphorus Ferritin 1190.0 H Total Bilirubin AST ALT Alkaline Phosphatase Lactate Dehydrogenase 276 H Total Creatine Kinase Troponin T C-Reactive Protein 4.20 H NT-Pro-B Natriuret Pep Serum Total Protein Total Protein Albumin Cholesterol LDL Cholesterol Direct HDL Cholesterol PTH Intact Arterial Blood Glucose Urine WBC (Auto) Urine Creatinine Valproic Acid Heparin-induced Plt Ab Lymph Enumerat CD4/CD8 Absolute CD3 Count Absolute CD4 Count % CD8 Cells Absolute CD8 Count Absolute CD19 Count Coronavirus (PCR) HIV-1 RNA PCR copies/ml HIV-1 RNA (PCR) log 09/24/20 09/24/20 09/24/20 05:12 11:25 12:09 WBC RBC Hgb Hct MCV MCH MCHC RDW Plt Count Lymph % (Auto) [place] % (Auto) Lymph # (Auto) [place] # (Auto) Seg Neutrophils % Seg Neuts % (Manual) Lymphocytes % (Manual) Monocytes % (Manual) Nucleated RBC % Seg Neutrophils # Seg Neutrophils # Man Abs Lymphs (Manual) Lymphocytes # (Manual) PT INR APTT D-Dimer Heparin Anti-Xa Level ABG pH POC ABG pCO2 POC ABG pO2 ABG Oxyhemoglobin ABG Sodium ABG Potassium ABG Glucose Carboxyhemoglobin Sodium Potassium Chloride Carbon Dioxide BUN Creatinine 3.1 H Glucose POC Glucose 114 H 110 H Calcium Phosphorus Ferritin Total Bilirubin AST ALT Alkaline Phosphatase Lactate Dehydrogenase Total Creatine Kinase Troponin T C-Reactive Protein NT-Pro-B Natriuret Pep Serum Total Protein Total Protein Albumin Cholesterol LDL Cholesterol Direct HDL Cholesterol PTH Intact Arterial Blood Glucose Urine WBC (Auto) Urine Creatinine Valproic Acid Heparin-induced Plt Ab Lymph Enumerat CD4/CD8 Absolute CD3 Count Absolute CD4 Count % CD8 Cells Absolute CD8 Count Absolute CD19 Count Coronavirus (PCR) HIV-1 RNA PCR copies/ml HIV-1 RNA (PCR) log 09/24/20 09/24/20 09/24/20 12:13 12:13 17:41 WBC 20.8 H RBC 3.04 L Hgb 9.5 L Hct 28.0 L MCV MCH MCHC RDW Plt Count 78 L Lymph % (Auto) [place] % (Auto) Lymph # (Auto) [place] # (Auto) Seg Neutrophils % Seg Neuts % (Manual) Lymphocytes % (Manual) Monocytes % (Manual) Nucleated RBC % Seg Neutrophils # Seg Neutrophils # Man Abs Lymphs (Manual) Lymphocytes # (Manual) PT 15.7 H INR 1.27 H APTT D-Dimer Heparin Anti-Xa Level ABG pH POC ABG pCO2 POC ABG pO2 ABG Oxyhemoglobin ABG Sodium ABG Potassium ABG Glucose Carboxyhemoglobin Sodium Potassium Chloride Carbon Dioxide BUN Creatinine Glucose POC Glucose 133 H Calcium Phosphorus Ferritin Total Bilirubin AST ALT Alkaline Phosphatase Lactate Dehydrogenase Total Creatine Kinase Troponin T C-Reactive Protein NT-Pro-B Natriuret Pep Serum Total Protein Total Protein Albumin Cholesterol LDL Cholesterol Direct HDL Cholesterol PTH Intact Arterial Blood Glucose Urine WBC (Auto) Urine Creatinine Valproic Acid Heparin-induced Plt Ab Lymph Enumerat CD4/CD8 Absolute CD3 Count Absolute CD4 Count % CD8 Cells Absolute CD8 Count Absolute CD19 Count Coronavirus (PCR) HIV-1 RNA PCR copies/ml HIV-1 RNA (PCR) log 09/24/20 09/25/20 09/25/20 23:34 06:40 06:40 WBC RBC Hgb Hct MCV MCH MCHC RDW Plt Count Lymph % (Auto) [place] % (Auto) Lymph # (Auto) [place] # (Auto) Seg Neutrophils % Seg Neuts % (Manual) Lymphocytes % (Manual) Monocytes % (Manual) Nucleated RBC % Seg Neutrophils # Seg Neutrophils # Man Abs Lymphs (Manual) Lymphocytes # (Manual) PT INR APTT D-Dimer Heparin Anti-Xa Level ABG pH POC ABG pCO2 POC ABG pO2 ABG Oxyhemoglobin ABG Sodium ABG Potassium ABG Glucose Carboxyhemoglobin Sodium Potassium Chloride 109.0 H Carbon Dioxide BUN 98 H Creatinine 3.0 H 3.0 H Glucose 111 H POC Glucose 113 H Calcium Phosphorus Ferritin Total Bilirubin AST ALT Alkaline Phosphatase Lactate Dehydrogenase Total Creatine Kinase Troponin T C-Reactive Protein NT-Pro-B Natriuret Pep Serum Total Protein Total Protein Albumin Cholesterol LDL Cholesterol Direct HDL Cholesterol PTH Intact Arterial Blood Glucose Urine WBC (Auto) Urine Creatinine Valproic Acid Heparin-induced Plt Ab Lymph Enumerat CD4/CD8 Absolute CD3 Count Absolute CD4 Count % CD8 Cells Absolute CD8 Count Absolute CD19 Count Coronavirus (PCR) HIV-1 RNA PCR copies/ml HIV-1 RNA (PCR) log 09/25/20 09/25/20 09/25/20 10:45 12:45 18:03 WBC 20.7 H RBC 3.33 L Hgb 10.2 L Hct 31.3 L MCV MCH MCHC RDW Plt Count 139 L Lymph % (Auto) [place] % (Auto) Lymph # (Auto) [place] # (Auto) Seg Neutrophils % Seg Neuts % (Manual) Lymphocytes % (Manual) Monocytes % (Manual) Nucleated RBC % Seg Neutrophils # Seg Neutrophils # Man Abs Lymphs (Manual) Lymphocytes # (Manual) PT INR APTT D-Dimer Heparin Anti-Xa Level ABG pH POC ABG pCO2 POC ABG pO2 ABG Oxyhemoglobin ABG Sodium ABG Potassium ABG Glucose Carboxyhemoglobin Sodium Potassium Chloride Carbon Dioxide BUN Creatinine Glucose POC Glucose 108 H 114 H Calcium Phosphorus Ferritin Total Bilirubin AST ALT Alkaline Phosphatase Lactate Dehydrogenase Total Creatine Kinase Troponin T C-Reactive Protein NT-Pro-B Natriuret Pep Serum Total Protein Total Protein Albumin Cholesterol LDL Cholesterol Direct HDL Cholesterol PTH Intact Arterial Blood Glucose Urine WBC (Auto) Urine Creatinine Valproic Acid Heparin-induced Plt Ab Lymph Enumerat CD4/CD8 Absolute CD3 Count Absolute CD4 Count % CD8 Cells Absolute CD8 Count Absolute CD19 Count Coronavirus (PCR) HIV-1 RNA PCR copies/ml HIV-1 RNA (PCR) log 09/25/20 09/26/20 09/26/20 23:29 05:00 07:06 WBC 17.0 H RBC 3.10 L Hgb 9.6 L Hct 28.8 L MCV MCH MCHC RDW Plt Count Lymph % (Auto) [place] % (Auto) Lymph # (Auto) [place] # (Auto) Seg Neutrophils % Seg Neuts % (Manual) Lymphocytes % (Manual) Monocytes % (Manual) Nucleated RBC % Seg Neutrophils # Seg Neutrophils # Man Abs Lymphs (Manual) Lymphocytes # (Manual) PT INR APTT D-Dimer Heparin Anti-Xa Level ABG pH POC ABG pCO2 POC ABG pO2 ABG Oxyhemoglobin ABG Sodium ABG Potassium ABG Glucose Carboxyhemoglobin Sodium Potassium Chloride Carbon Dioxide BUN Creatinine Glucose POC Glucose 111 H 115 H Calcium Phosphorus Ferritin Total Bilirubin AST ALT Alkaline Phosphatase Lactate Dehydrogenase Total Creatine Kinase Troponin T C-Reactive Protein NT-Pro-B Natriuret Pep Serum Total Protein Total Protein Albumin Cholesterol LDL Cholesterol Direct HDL Cholesterol PTH Intact Arterial Blood Glucose Urine WBC (Auto) Urine Creatinine Valproic Acid Heparin-induced Plt Ab Lymph Enumerat CD4/CD8 Absolute CD3 Count Absolute CD4 Count % CD8 Cells Absolute CD8 Count Absolute CD19 Count Coronavirus (PCR) HIV-1 RNA PCR copies/ml HIV-1 RNA (PCR) log 09/26/20 09/26/20 09/27/20 07:06 17:26 04:00 WBC RBC Hgb Hct MCV MCH MCHC RDW Plt Count Lymph % (Auto) [place] % (Auto) Lymph # (Auto) [place] # (Auto) Seg Neutrophils % Seg Neuts % (Manual) Lymphocytes % (Manual) Monocytes % (Manual) Nucleated RBC % Seg Neutrophils # Seg Neutrophils # Man Abs Lymphs (Manual) Lymphocytes # (Manual) PT INR APTT D-Dimer Heparin Anti-Xa Level ABG pH POC ABG pCO2 POC ABG pO2 ABG Oxyhemoglobin ABG Sodium ABG Potassium ABG Glucose Carboxyhemoglobin Sodium Potassium Chloride Carbon Dioxide BUN 69 H 67 H Creatinine 2.2 H 2.3 H Glucose 107 H 121 H POC Glucose 124 H Calcium Phosphorus Ferritin Total Bilirubin AST ALT Alkaline Phosphatase Lactate Dehydrogenase Total Creatine Kinase Troponin T C-Reactive Protein NT-Pro-B Natriuret Pep Serum Total Protein Total Protein Albumin Cholesterol LDL Cholesterol Direct HDL Cholesterol PTH Intact Arterial Blood Glucose Urine WBC (Auto) Urine Creatinine Valproic Acid Heparin-induced Plt Ab Lymph Enumerat CD4/CD8 Absolute CD3 Count Absolute CD4 Count % CD8 Cells Absolute CD8 Count Absolute CD19 Count Coronavirus (PCR) HIV-1 RNA PCR copies/ml HIV-1 RNA (PCR) log 09/27/20 09/27/20 09/27/20 04:00 05:00 17:11 WBC 14.6 H RBC 2.72 L Hgb 8.6 L Hct 25.8 L MCV 95 H MCH MCHC RDW Plt Count Lymph % (Auto) 4.3 L [place] % (Auto) Lymph # (Auto) 0.6 L [place] # (Auto) 0.9 H Seg Neutrophils % 89.6 H Seg Neuts % (Manual) Lymphocytes % (Manual) Monocytes % (Manual) Nucleated RBC % Seg Neutrophils # 13.1 H Seg Neutrophils # Man Abs Lymphs (Manual) Lymphocytes # (Manual) PT INR APTT D-Dimer Heparin Anti-Xa Level ABG pH POC ABG pCO2 POC ABG pO2 ABG Oxyhemoglobin ABG Sodium ABG Potassium ABG Glucose Carboxyhemoglobin Sodium Potassium Chloride Carbon Dioxide BUN Creatinine 2.4 H Glucose POC Glucose 132 H Calcium Phosphorus Ferritin Total Bilirubin AST ALT Alkaline Phosphatase Lactate Dehydrogenase Total Creatine Kinase Troponin T C-Reactive Protein NT-Pro-B Natriuret Pep Serum Total Protein Total Protein Albumin Cholesterol LDL Cholesterol Direct HDL Cholesterol PTH Intact Arterial Blood Glucose Urine WBC (Auto) Urine Creatinine Valproic Acid Heparin-induced Plt Ab Lymph Enumerat CD4/CD8 Absolute CD3 Count Absolute CD4 Count % CD8 Cells Absolute CD8 Count Absolute CD19 Count Coronavirus (PCR) HIV-1 RNA PCR copies/ml HIV-1 RNA (PCR) log 09/28/20 09/28/20 09/29/20 04:46 04:46 04:45 WBC 14.6 H RBC 2.66 L Hgb 8.4 L Hct 25.3 L MCV 95 H MCH MCHC RDW Plt Count Lymph % (Auto) [place] % (Auto) Lymph # (Auto) [place] # (Auto) Seg Neutrophils % Seg Neuts % (Manual) Lymphocytes % (Manual) Monocytes % (Manual) Nucleated RBC % Seg Neutrophils # Seg Neutrophils # Man Abs Lymphs (Manual) Lymphocytes # (Manual) PT INR APTT D-Dimer Heparin Anti-Xa Level ABG pH POC ABG pCO2 POC ABG pO2 ABG Oxyhemoglobin ABG Sodium ABG Potassium ABG Glucose Carboxyhemoglobin Sodium Potassium Chloride Carbon Dioxide BUN 71 H 63 H Creatinine 2.3 H 2.2 H Glucose 105 H POC Glucose Calcium Phosphorus Ferritin Total Bilirubin AST ALT Alkaline Phosphatase Lactate Dehydrogenase Total Creatine Kinase Troponin T C-Reactive Protein NT-Pro-B Natriuret Pep Serum Total Protein Total Protein Albumin Cholesterol LDL Cholesterol Direct HDL Cholesterol PTH Intact Arterial Blood Glucose Urine WBC (Auto) Urine Creatinine Valproic Acid Heparin-induced Plt Ab Lymph Enumerat CD4/CD8 Absolute CD3 Count Absolute CD4 Count % CD8 Cells Absolute CD8 Count Absolute CD19 Count Coronavirus (PCR) HIV-1 RNA PCR copies/ml HIV-1 RNA (PCR) log 09/29/20 09/29/20 09/29/20 04:45 05:43 17:50 WBC RBC 2.92 L Hgb 9.6 L Hct 28.1 L MCV 96 H MCH 33 H MCHC RDW Plt Count Lymph % (Auto) [place] % (Auto) Lymph # (Auto) [place] # (Auto) Seg Neutrophils % Seg Neuts % (Manual) Lymphocytes % (Manual) Monocytes % (Manual) Nucleated RBC % Seg Neutrophils # Seg Neutrophils # Man Abs Lymphs (Manual) Lymphocytes # (Manual) PT INR APTT D-Dimer Heparin Anti-Xa Level ABG pH POC ABG pCO2 POC ABG pO2 ABG Oxyhemoglobin ABG Sodium ABG Potassium ABG Glucose Carboxyhemoglobin Sodium Potassium Chloride Carbon Dioxide BUN Creatinine Glucose POC Glucose 69 L 132 H Calcium Phosphorus Ferritin Total Bilirubin AST ALT Alkaline Phosphatase Lactate Dehydrogenase Total Creatine Kinase Troponin T C-Reactive Protein NT-Pro-B Natriuret Pep Serum Total Protein Total Protein Albumin Cholesterol LDL Cholesterol Direct HDL Cholesterol PTH Intact Arterial Blood Glucose Urine WBC (Auto) Urine Creatinine Valproic Acid Heparin-induced Plt Ab Lymph Enumerat CD4/CD8 Absolute CD3 Count Absolute CD4 Count % CD8 Cells Absolute CD8 Count Absolute CD19 Count Coronavirus (PCR) HIV-1 RNA PCR copies/ml HIV-1 RNA (PCR) log 09/30/20 09/30/20 09/30/20 04:47 04:47 04:47 WBC RBC 2.47 L Hgb 8.1 L Hct 23.9 L MCV 97 H MCH 33 H MCHC RDW Plt Count Lymph % (Auto) [place] % (Auto) Lymph # (Auto) [place] # (Auto) Seg Neutrophils % Seg Neuts % (Manual) Lymphocytes % (Manual) Monocytes % (Manual) Nucleated RBC % Seg Neutrophils # Seg Neutrophils # Man Abs Lymphs (Manual) Lymphocytes # (Manual) PT INR APTT D-Dimer Heparin Anti-Xa Level ABG pH POC ABG pCO2 POC ABG pO2 ABG Oxyhemoglobin ABG Sodium ABG Potassium ABG Glucose Carboxyhemoglobin Sodium Potassium Chloride Carbon Dioxide 31 H BUN 63 H Creatinine 2.1 H Glucose POC Glucose Calcium Phosphorus Ferritin Total Bilirubin AST ALT Alkaline Phosphatase Lactate Dehydrogenase Total Creatine Kinase Troponin T C-Reactive Protein NT-Pro-B Natriuret Pep Serum Total Protein 5.5 L Total Protein 5.9 L Albumin 2.2 L 2.1 L Cholesterol LDL Cholesterol Direct HDL Cholesterol PTH Intact Arterial Blood Glucose Urine WBC (Auto) Urine Creatinine Valproic Acid Heparin-induced Plt Ab Lymph Enumerat CD4/CD8 Absolute CD3 Count Absolute CD4 Count % CD8 Cells Absolute CD8 Count Absolute CD19 Count Coronavirus (PCR) HIV-1 RNA PCR copies/ml HIV-1 RNA (PCR) log 10/01/20 10/01/20 10/02/20 07:16 08:30 05:10 WBC RBC Hgb Hct MCV MCH MCHC RDW Plt Count Lymph % (Auto) [place] % (Auto) Lymph # (Auto) [place] # (Auto) Seg Neutrophils % Seg Neuts % (Manual) Lymphocytes % (Manual) Monocytes % (Manual) Nucleated RBC % Seg Neutrophils # Seg Neutrophils # Man Abs Lymphs (Manual) Lymphocytes # (Manual) PT INR APTT D-Dimer Heparin Anti-Xa Level ABG pH POC ABG pCO2 POC ABG pO2 ABG Oxyhemoglobin ABG Sodium ABG Potassium ABG Glucose Carboxyhemoglobin Sodium Potassium Chloride Carbon Dioxide BUN 58 H 48 H Creatinine 2.2 H 2.0 H Glucose POC Glucose Calcium Phosphorus Ferritin Total Bilirubin AST ALT Alkaline Phosphatase Lactate Dehydrogenase Total Creatine Kinase Troponin T C-Reactive Protein NT-Pro-B Natriuret Pep Serum Total Protein Total Protein Albumin Cholesterol LDL Cholesterol Direct HDL Cholesterol PTH Intact Arterial Blood Glucose Urine WBC (Auto) Urine Creatinine Valproic Acid Heparin-induced Plt Ab Lymph Enumerat CD4/CD8 Absolute CD3 Count Absolute CD4 Count % CD8 Cells Absolute CD8 Count Absolute CD19 Count Coronavirus (PCR) Positive A HIV-1 RNA PCR copies/ml HIV-1 RNA (PCR) log 10/03/20 10/03/20 10/04/20 08:12 08:12 18:19 WBC RBC Hgb Hct MCV MCH MCHC RDW Plt Count Lymph % (Auto) [place] % (Auto) Lymph # (Auto) [place] # (Auto) Seg Neutrophils % Seg Neuts % (Manual) Lymphocytes % (Manual) Monocytes % (Manual) Nucleated RBC % Seg Neutrophils # Seg Neutrophils # Man Abs Lymphs (Manual) Lymphocytes # (Manual) PT INR APTT D-Dimer Heparin Anti-Xa Level ABG pH POC ABG pCO2 POC ABG pO2 ABG Oxyhemoglobin ABG Sodium ABG Potassium ABG Glucose Carboxyhemoglobin Sodium Potassium 5.4 H D Chloride Carbon Dioxide BUN 48 H 39 H Creatinine 2.2 H 2.7 H Glucose POC Glucose Calcium 8.0 L Phosphorus Ferritin Total Bilirubin AST ALT Alkaline Phosphatase Lactate Dehydrogenase Total Creatine Kinase Troponin T C-Reactive Protein NT-Pro-B Natriuret Pep Serum Total Protein Total Protein Albumin Cholesterol LDL Cholesterol Direct HDL Cholesterol PTH Intact Arterial Blood Glucose Urine WBC (Auto) Urine Creatinine Valproic Acid 17.8 L Heparin-induced Plt Ab Lymph Enumerat CD4/CD8 Absolute CD3 Count Absolute CD4 Count % CD8 Cells Absolute CD8 Count Absolute CD19 Count Coronavirus (PCR) HIV-1 RNA PCR copies/ml HIV-1 RNA (PCR) log 10/04/20 10/05/20 10/05/20 18:19 07:14 07:14 WBC RBC 2.44 L 2.36 L Hgb 8.0 L 7.8 L Hct 24.0 L 23.3 L MCV 98 H 99 H MCH 33 H 33 H MCHC RDW 15.6 H 16.0 H Plt Count Lymph % (Auto) [place] % (Auto) Lymph # (Auto) [place] # (Auto) Seg Neutrophils % Seg Neuts % (Manual) Lymphocytes % (Manual) Monocytes % (Manual) Nucleated RBC % Seg Neutrophils # Seg Neutrophils # Man Abs Lymphs (Manual) Lymphocytes # (Manual) PT INR APTT D-Dimer Heparin Anti-Xa Level ABG pH POC ABG pCO2 POC ABG pO2 ABG Oxyhemoglobin ABG Sodium ABG Potassium ABG Glucose Carboxyhemoglobin Sodium Potassium Chloride Carbon Dioxide BUN 36 H Creatinine 2.5 H Glucose POC Glucose Calcium Phosphorus Ferritin Total Bilirubin AST ALT Alkaline Phosphatase Lactate Dehydrogenase Total Creatine Kinase Troponin T C-Reactive Protein NT-Pro-B Natriuret Pep Serum Total Protein Total Protein Albumin Cholesterol LDL Cholesterol Direct HDL Cholesterol PTH Intact Arterial Blood Glucose Urine WBC (Auto) Urine Creatinine Valproic Acid Heparin-induced Plt Ab Lymph Enumerat CD4/CD8 Absolute CD3 Count Absolute CD4 Count % CD8 Cells Absolute CD8 Count Absolute CD19 Count Coronavirus (PCR) HIV-1 RNA PCR copies/ml HIV-1 RNA (PCR) log 10/06/20 10/06/20 10/07/20 08:04 Unknown 06:45 WBC RBC 2.38 L Hgb 7.9 L Hct 23.2 L MCV 98 H MCH 33 H MCHC RDW 15.4 H Plt Count Lymph % (Auto) [place] % (Auto) Lymph # (Auto) [place] # (Auto) Seg Neutrophils % Seg Neuts % (Manual) Lymphocytes % (Manual) Monocytes % (Manual) Nucleated RBC % Seg Neutrophils # Seg Neutrophils # Man Abs Lymphs (Manual) Lymphocytes # (Manual) PT INR APTT D-Dimer Heparin Anti-Xa Level ABG pH POC ABG pCO2 POC ABG pO2 ABG Oxyhemoglobin ABG Sodium ABG Potassium ABG Glucose Carboxyhemoglobin Sodium Potassium 3.5 L Chloride 107.2 H Carbon Dioxide BUN 30 H Creatinine 2.2 H Glucose POC Glucose Calcium Phosphorus Ferritin Total Bilirubin AST ALT Alkaline Phosphatase Lactate Dehydrogenase Total Creatine Kinase Troponin T C-Reactive Protein NT-Pro-B Natriuret Pep Serum Total Protein Total Protein Albumin Cholesterol LDL Cholesterol Direct HDL Cholesterol PTH Intact Arterial Blood Glucose Urine WBC (Auto) Urine Creatinine Valproic Acid Heparin-induced Plt Ab Lymph Enumerat CD4/CD8 Absolute CD3 Count Absolute CD4 Count % CD8 Cells Absolute CD8 Count Absolute CD19 Count Coronavirus (PCR) Positive A HIV-1 RNA PCR copies/ml HIV-1 RNA (PCR) log 10/07/20 10/08/20 10/10/20 06:45 20:19 06:57 WBC RBC Hgb Hct MCV MCH MCHC RDW Plt Count Lymph % (Auto) [place] % (Auto) Lymph # (Auto) [place] # (Auto) Seg Neutrophils % Seg Neuts % (Manual) Lymphocytes % (Manual) Monocytes % (Manual) Nucleated RBC % Seg Neutrophils # Seg Neutrophils # Man Abs Lymphs (Manual) Lymphocytes # (Manual) PT INR APTT D-Dimer Heparin Anti-Xa Level ABG pH POC ABG pCO2 POC ABG pO2 ABG Oxyhemoglobin ABG Sodium ABG Potassium ABG Glucose Carboxyhemoglobin Sodium 135 L Potassium 3.5 L Chloride Carbon Dioxide BUN 28 H 22 H Creatinine 2.2 H 2.0 H 2.0 H Glucose POC Glucose Calcium Phosphorus Ferritin Total Bilirubin AST ALT Alkaline Phosphatase Lactate Dehydrogenase Total Creatine Kinase Troponin T C-Reactive Protein NT-Pro-B Natriuret Pep Serum Total Protein Total Protein Albumin Cholesterol LDL Cholesterol Direct HDL Cholesterol PTH Intact Arterial Blood Glucose Urine WBC (Auto) Urine Creatinine Valproic Acid Heparin-induced Plt Ab Lymph Enumerat CD4/CD8 Absolute CD3 Count Absolute CD4 Count % CD8 Cells Absolute CD8 Count Absolute CD19 Count Coronavirus (PCR) HIV-1 RNA PCR copies/ml HIV-1 RNA (PCR) log 10/11/20 10/12/20 10/12/20 07:29 05:48 13:42 WBC RBC 2.42 L Hgb 8.1 L Hct 23.5 L MCV 97 H MCH 34 H MCHC 35 H RDW 16.1 H Plt Count Lymph % (Auto) [place] % (Auto) Lymph # (Auto) [place] # (Auto) Seg Neutrophils % Seg Neuts % (Manual) Lymphocytes % (Manual) Monocytes % (Manual) Nucleated RBC % Seg Neutrophils # Seg Neutrophils # Man Abs Lymphs (Manual) Lymphocytes # (Manual) 1.1 L PT INR APTT D-Dimer Heparin Anti-Xa Level ABG pH POC ABG pCO2 POC ABG pO2 ABG Oxyhemoglobin ABG Sodium ABG Potassium ABG Glucose Carboxyhemoglobin Sodium 136 L Potassium Chloride Carbon Dioxide BUN 21 H Creatinine 2.0 H 1.9 H Glucose POC Glucose Calcium 8.3 L Phosphorus Ferritin Total Bilirubin AST ALT Alkaline Phosphatase Lactate Dehydrogenase Total Creatine Kinase Troponin T C-Reactive Protein NT-Pro-B Natriuret Pep Serum Total Protein Total Protein Albumin Cholesterol LDL Cholesterol Direct HDL Cholesterol PTH Intact Arterial Blood Glucose Urine WBC (Auto) Urine Creatinine Valproic Acid Heparin-induced Plt Ab Lymph Enumerat CD4/CD8 Absolute CD3 Count Absolute CD4 Count % CD8 Cells Absolute CD8 Count Absolute CD19 Count Coronavirus (PCR) HIV-1 RNA PCR copies/ml HIV-1 RNA (PCR) log 10/13/20 10/14/20 10/15/20 06:35 05:32 06:26 WBC RBC Hgb Hct MCV MCH MCHC RDW Plt Count Lymph % (Auto) [place] % (Auto) Lymph # (Auto) [place] # (Auto) Seg Neutrophils % Seg Neuts % (Manual) Lymphocytes % (Manual) Monocytes % (Manual) Nucleated RBC % Seg Neutrophils # Seg Neutrophils # Man Abs Lymphs (Manual) Lymphocytes # (Manual) PT INR APTT D-Dimer Heparin Anti-Xa Level ABG pH POC ABG pCO2 POC ABG pO2 ABG Oxyhemoglobin ABG Sodium ABG Potassium ABG Glucose Carboxyhemoglobin Sodium 135 L Potassium 3.5 L Chloride Carbon Dioxide BUN 22 H 24 H 21 H Creatinine 1.8 H 2.2 H 1.8 H Glucose 107 H POC Glucose Calcium 8.2 L Phosphorus Ferritin Total Bilirubin AST ALT Alkaline Phosphatase Lactate Dehydrogenase Total Creatine Kinase Troponin T C-Reactive Protein NT-Pro-B Natriuret Pep Serum Total Protein Total Protein Albumin Cholesterol LDL Cholesterol Direct HDL Cholesterol PTH Intact Arterial Blood Glucose Urine WBC (Auto) Urine Creatinine Valproic Acid Heparin-induced Plt Ab Lymph Enumerat CD4/CD8 Absolute CD3 Count Absolute CD4 Count % CD8 Cells Absolute CD8 Count Absolute CD19 Count Coronavirus (PCR) HIV-1 RNA PCR copies/ml HIV-1 RNA (PCR) log Allied health notes reviewed: nursing
[2020-10-15] MEDS: QUEtiapine 25 MG TAB PO SCH (22:28)
[2020-10-16 05:01] VITALS: BP 95/61
[2020-10-16 06:32] LABS: Calcium 8.9 mg/dL (8.4-10.2)
--- NOTE | 2020-10-16 08:54 | Progress Note ---
Assessment and Plan 1. Acute kidney injury: Vasomotor LOLI in the setting of shock. ATN likely. Renal US negative for hydro. Multiple bladder scan negative. Patient required hemodialysis due to significant decline in the renal function. Hemodialysis: 09/20, 09/21, 09/25. Monitor renal function. Creatinine level fluctuates. Avoid nephrotoxic agents. Meds dosage based on GFR. 2. FEN: Hyperkalemia, improved. Metabolic acidosis, improved, monitor. Monitor volume status and lytes. 3. Acute hypoxic respiratory failure: Covid test positive. Supplemental O2 as needed. 4. Acute CHF: Echocardiogram: EF 40-45%. Appears compensated now. Monitor. 5. Atrial fibrillation with RVR: On Amio and Metoprolol. Followed by Cards. 6. Elevated troponin: Followed by Cards. 7. Shock / Hypotension: Multifactorial, monitor. Off pressors. 8. Urinary retention: Gardner catheter. Outpatient f/u with Urology. 9. Metabolic encephalopathy: Monitor. 10. HIV. 11. Anemia, POA: Monitor. Subjective: Patient was seen and examined at the bedside. Doing ok. Objective: General appearance: well-developed, appears stated age, appears emaciated, not in distress HEENT: ATNC, L pupil dilated Neck: trachea midline Respiratory: ctab Heart: S1S2, irregular, no murmur Abdomen: soft, normoactive bowel sounds, not tender Integumentary: no obvious rash Ext: no edema Neurologic: alert, conversing, moving extremities : Gardner catheter Subjective Date of service: 10/16/20 Principal diagnosis: Acute Hypoxemic Resp Failure; COVID-19 infxn; Septic Shock; A-Fib with RVR Objective - Vital Signs Vital signs: Vital Signs - 12hr 10/15/20 10/15/20 10/16/20 21:48 22:19 04:19 Temperature 98.0 F 97.8 F Pulse Rate 102 H Respiratory 20 16 Rate Blood Pressure 93/65 123/70 95/61 O2 Sat by Pulse 98 Oximetry - Lab 10/12/20 13:42 10/16/20 05:12 Most recent lab results ABG pH 7.508 (7.320-7.450) H 09/17/20 10:28 ABG O2 Saturation 93.4 (0-100) 09/17/20 10:28 Calcium 8.9 mg/dL (8.4-10.2) 10/16/20 05:12 Phosphorus 2.90 mg/dL (2.5-4.5) 09/26/20 07:06 Magnesium 1.70 mg/dL (1.7-2.3) 09/26/20 07:06 Urine Creatinine 61.0 mg/dL (0.1-20.0) H 09/18/20 12:00 Urine Sodium 62 mmol/L 09/18/20 12:00 Medications & Allergies - Medications Allergies/Adverse Reactions: Allergies heparin Adverse Reaction (Verified 09/29/20 16:33) thrombocytopenia PF4 Home Medications: Home Medications Medication Instructions Recorded Confirmed Last Taken Type AtorvaSTATin [Lipitor] 20 mg PO QHS 09/18/20 09/18/20 Unknown History Dolutegravir [Tivicay] 50 mg PO DAILY 09/18/20 09/18/20 Unknown History Emtricitabine/Tenofov Alafenam 1 tab PO DAILY 09/18/20 09/18/20 Unknown History [Descovy 200-25 mg (Nf)] allopurinoL [Zyloprim] 300 mg PO QDAY 09/18/20 09/18/20 Unknown History Ascorbic Acid [Vitamin C] 500 mg PO BID #60 tablet 10/01/20 Unknown Rx Cholecalciferol Vit D3 [Vitamin D3 1,000 unit PO QDAY #30 tablet 10/01/20 Unknown Rx 1,000 UNIT TAB] Famotidine [Pepcid] 20 mg PO DAILY #30 tablet 10/01/20 Unknown Rx Zinc Sulfate 220 mg PO QDAY #30 capsule 10/01/20 Unknown Rx carvediloL [Coreg] 3.125 mg PO BID #60 tablet 10/01/20 Unknown Rx Amiodarone [Cordarone 200 MG TAB] 200 mg PO BID #60 tablet 10/15/20 Unknown Rx Apixaban [Eliquis] 5 mg PO Q12HR #60 tablet 10/15/20 Unknown Rx Midodrine [Proamatine] 10 mg PO TID@0800,1200,1600 #90 10/15/20 Unknown Rx tablet QUEtiapine [SEROquel] 12.5 mg PO QHS #30 tablet 10/15/20 Unknown Rx Tamsulosin [Flomax] 0.4 mg PO QDAY #30 capsule 10/15/20 Unknown Rx Valproic Acid [Depakene] 250 mg PO BID #60 capsule 10/15/20 Unknown Rx Active Medications: Generic Name Dose Route Start Last Admin Trade Name Freq PRN Reason Stop Dose Admin Acetaminophen 650 mg 09/17/20 13:52 10/13/20 11:55 Acetaminophen 325 Mg Tab PO 650 mg Q4H PRN Administration Pain MILD(1-3)/Fever >100.5/ANGEL Albuterol 2.5 mg 09/17/20 13:52 09/17/20 20:47 Albuterol 2.5 Mg/3 Ml Nebu IH 2.5 mg Q4HRT PRN Administration Shortness Of Breath Amiodarone HCl 200 mg 10/01/20 22:00 10/15/20 22:27 Amiodarone 200 Mg Tab PO 200 mg BID EDIE Administration Lipase/Protease/Amylase 1 each 09/20/20 13:10 Lipase 10,500/Protease 25,000/Amylase 43,750 (Units) Dr Darnell FEEDTUBE PRN PRN For Clogged Feeding Tube Apixaban 5 mg 10/05/20 22:00 10/15/20 22:27 Apixaban 5 Mg Tab PO 5 mg Q12HR EDIE Administration Ascorbic Acid 500 mg 09/20/20 22:00 10/15/20 22:27 Ascorbic Acid 500 Mg Tab PO 500 mg BID EDIE Administration Cholecalciferol 1,000 unit 09/21/20 10:00 10/15/20 09:59 Cholecalciferol (Vit D3) 1000 Unit (25 Mcg) Tab PO 1,000 unit QDAY EDIE Administration Docusate Sodium 100 mg 10/05/20 11:00 10/15/20 22:26 Docusate Sodium 100 Mg/10 Ml Oral Liqd PO 100 mg BID EDIE Administration Emtricitabine 200 mg 09/30/20 11:00 10/14/20 10:33 Emtricitabine 200 Mg Cap PO 200 mg Q48H EDIE Administration Famotidine 20 mg 09/24/20 10:00 10/15/20 10:00 Famotidine 20 Mg Tab PO 20 mg DAILY EDIE Administration Haloperidol Lactate 5 mg 10/01/20 11:34 10/14/20 15:33 Haloperidol Lactate 5 Mg/1 Ml Inj IM 5 mg Q6H PRN Administration Agitation Sodium Chloride 1,000 mls @ 50 mls/hr 10/11/20 15:45 10/15/20 04:28 Nacl 0.9% 1000 Ml IV 50 mls/hr DIRECT EDIE Administration Metoprolol Tartrate 12.5 mg 10/14/20 10:00 10/15/20 21:48 Metoprolol Tartrate 25 Mg Tab PO Not Given BID EDIE Midodrine 10 mg 10/07/20 08:00 10/15/20 18:53 Midodrine 5 Mg Tab PO 10 mg TID@0800,1200,1600 EDIE Administration Ondansetron HCl 4 mg 09/17/20 13:52 Ondansetron 4 Mg/2 Ml Inj IV Q8H PRN Nausea And Vomiting Quetiapine Fumarate 12.5 mg 10/03/20 22:00 10/15/20 22:28 Quetiapine 25 Mg Tab PO 12.5 mg QHS EDIE Administration Simple Syrup 15 ml 09/20/20 13:10 Simple Syrup 15 Ml FEEDTUBE PRN PRN Hypoglycemia Simple Syrup 30 ml 09/20/20 13:10 Simple Syrup 15 Ml FEEDTUBE PRN PRN Hypoglycemia Sodium Bicarbonate 325 mg 09/20/20 13:10 Sodium Bicarbonate 325 Mg Tab FEEDTUBE PRN PRN For Clogged Feeding Tube Sodium Chloride 10 ml 09/17/20 22:00 10/15/20 21:49 Sodium Chloride 0.9% 10 Ml Flush Syringe IV Not Given BID EDIE Sodium Chloride 10 ml 09/17/20 13:52 10/12/20 10:19 Sodium Chloride 0.9% 10 Ml Flush Syringe IV 10 ml PRN PRN Administration LINE FLUSH Tamsulosin HCl 0.4 mg 10/07/20 13:00 10/15/20 10:00 Tamsulosin 0.4 Mg Cap PO 0.4 mg QDAY EDIE Administration Tenofovir Disoproxil Fumarate 300 mg 09/30/20 11:00 10/14/20 10:33 Tenofovir 300 Mg Tab PO 300 mg Q48H EDIE Administration Valproic Acid 250 mg 10/03/20 22:00 10/15/20 22:27 Valproic Acid 250 Mg Cap PO 250 mg BID EDIE Administration Zinc Sulfate 220 mg 09/21/20 10:00 10/15/20 10:00 Zinc Sulfate 220 Mg Cap PO 220 mg QDAY EDIE Administration
--- NOTE | 2020-10-16 09:28 | Progress Note ---
Assessment and Plan Assessment and plan: This is 70-year-old male with HIV, HTN, and atrial fibrillation (currently on therapeutic anticoagulation with Xarelto) presents the emergency department on 09/17 with complaints of shortness of breath over the past 3 days and on arrival of EMS patient was found to have a pulse oximetry of 85% on room air. He was placed on supplemental oxygenation. Of note patient was admitted on 09/15 with similar complaints and found to have A. fib with RVR, hyponatremia, hypomagnesemia and acute kidney injury and left AMA. He was admitted to the hospital service with atrial fibrillation with RVR, SIRs, metabolic acidosis, acute kidney injury, acute hypoxic respiratory failure, hypotension, and CHF . Cardiology, CCM and nephrology were consulted. Cardiology, CCM, Nephrology, ID, general surgery, heme/onc consulted, appreciate recommendations -09/20 COVID-19 PCR positive -Droplet/isolation precautions -Dexamethasone 6 mg p.o. (09/20-09/30) -Vitamin D, vitamin C, zinc -Vasopressor support with levophed and vasopressin, midodrine -09/17 CXR shows borderline heart size, mild central pulmonary venous congestion -09/17 renal ultrasound shows no acute findings 09/18/2020. Await echocardiogram to assess for diastolic versus systolic etiology. Patient with elevated BNP greater than 18,000. Patient apparently was admitted approximately 3 days ago but left AMA. Cardiology consulted for heart failure, A. fib with RVR and elevated troponin. Patient denies chest pain. Also, patient with elevated creatinine of 4.7 with creatinine 2.8 on recent admission. We do not have a previous creatinine as a baseline to compare. Nephrology consultation pending. Follow-up renal ultrasound. Patient with coagulopathy and INR 3.04. Unsure if patient was on anticoagulation for A. fib. -09/18 echocardiogram shows left ventricle systolic function mildly decreased, LVEF of 40 to 45% with mild concentric left ventricle hypertrophy, trace MR, mild TR, trace NE -09/19 abdominal ultrasound shows large gallstone within the gallbladder, no pericholecystic fluid, gallbladder wall upper limits of normal measuring 3 mm -09/21 HIDA scan shows no evidence of acute cholecystitis -09/21 BLE Dopplar US no evidence for DVT -09/23 CT head shows no acute intracranial hemorrhage or parenchymal abnormality, mild diffuse brain atrophy with commensurate ventricular enlargement which is likely age appropriate, small frontal scalp lipoma measuring 9 mm in thickness, 4 cm in length, and 4 cm in width., Sinuses and mastoid air cells are clear. -09/17 proBNP 22138 -S/p IV Lasix twice daily -09/20 nephrology initiated the patient on dialysis -Pulmonary hygiene -Bipap qhs -09/25 CT abd/pelvis without contrast pending -PO amiodarone 09/19/2020. Patient likely with vasomotor acute kidney injury in the setting of shock. Follow-up urine studies and renal ultrasound. Creatinine continues to worsen. Nephrology following. Etiology of respiratory failure secondary to heart failure with Covid testing pending. Elevated troponin suggestive of NSTEMI. Continue diuresis with Lasix. Continue IV amiodarone for rate control of A. fib with RVR. Continue heparin. Follow-up echocardiogram. Cardiology following. 09/20/2020: This time my examination patient was on BiPAP therapy and now is on nasal cannula. Patient remains on amiodarone drip with heart rate in the 130s to 140s and vasopressor support with Levophed. Today nephrology will initiate hemodialysis given worsening renal function studies and has stopped diuresis with Lasix. ID resumed antiretroviral therapy and ordered a HIDA scan. Today the patient received a temporary Vas-Cath and is COVID-19 PCR resulted as positive. Patient will be started on vitamin C, vitamin D and zinc and dexamethasone given need for supplemental oxygenation. 09/21: Ecoli UTI and bacteremia and ID has changed him to meropenem, Patient received HD yesterday and patient remains on amiodarone drip. He is off the floor to obtain a HIDA scan. 09/22: HIDA scan did not show acute cholecystitis. Ecoli bacteremia is sensitive to ceftriaxone and ID changed his abx. Mentation is better. BP is liable. Remains on levophed and vasopressin. We started midodrine. HIT panel pending and hem/onc consulted. 09/23: Patient noted to have unequal pupils with left >right, STAT CT head ordered. Nephro will withhold hemodialysis and assess needs as kidney function has gotten better. Patient symptomatically follows commands and is on nasal cannula. Cardiology stopped his Eliquis due to persistent thrombocytopenia. 09/24: Patient remains confused, pupils still unequal. Started on eliquis 2.5 today and he will be transferred to IMCU. 09/25: Patient remains confused, had Bipap overnight, CT abd/pelvis ordered per ID recommendations given persistent leukocytosis. Cr remains unchanged but BUN in rising. Nephrology is on the case. 09/26/2020; patient was confused and on 3 L of oxygen. ID is following the patient and continue with antiretroviral medications, no OI prophylaxis needed. Patient is on IV Rocephin lasted 09/28 per ID recommendation for E. coli bacteremia. ID ordered CT abdomen and pelvis. We will follow the results. Patient is being followed by cardiology and they recommend to resume Eliquis with 2.5 mg p.o. twice daily, thrombocytopenia is improving. Patient is on amiodarone and metoprolol. Patient is being followed by nephrology and is on dialysis. Blood pressure was normal this morning. Patient was tachycardic in A. fib with RVR. CT head was normal. Prognosis is guarded. Continue IMCU care. 09/27: Continue IMCU care, still with unresolved Afib, will continue to adjust medications for better control. 09/28: Start Seroquel DUE TO THE AGITATION, Discussed with daughter, will work on getting Afib better controlled. Per daughter the confusion is new, although some improvement noted today. Patient will benefit from SNF 09/29: Seroquel started today as it was not started yesterday, await PT/OT, Continue to monitor mental status, will transfer to Tele. Anticipate discharge when bed available. 09/30: Discussed extensively with the daughter about her clinical condition, Seroquel discontinued as patient did not tolerate, still with low BP responded to Fluids. Hold BB and continue to monitor and redirect. Discussed with Nursing staff. 10/01: Patient seen and examined resting comfortably still with intermittent delirium. Blood pressure has improved although beta-ruddy was held midodrine was given. Will change to Coreg 3.125 with holding parameters on discharge. Per cardiology amiodarone changed to 200 mg daily. Neurology evaluation is still pending. I have initiated placement to a SNF facility and once approved patient can be discharged. Daughter has been updated on medical condition. For now on anticoagulation left in place although outpatient this may be discontinued due to patient's mental status if there is no improvement. 10/02: Neurology evaluated the patient for increased agitation and aggressive behavior and confusion. Exam suggestive of delirium stopped. Due to not tolerating Seroquel, now Geodon trial Haldol however recommended also valproic acid. No overnight issues reported. Continue awaiting SNF placement for continued rehab. Blood pressure has remained stable no further fever recorded. Monitor for any recurrence of the pain in the leg. 10/03: I have asked for a sitter a few days ago unfortunately not as available as a result restraints have been used and reassurances. Will decrease Seroquel to 12.5 twice daily as patient did not tolerate the 25 mg. Continue supportive care blood pressure meds held due to hypotension. Delirium still present delirium preventive methods including keeping the lights on through the night windows shades up discussed with nursing staff. Also discussed with neurologist. 10/04: 70-year-old male admitted to the hospital with hypoxic respiratory failure history of Covid. During hospitalization developed A. fib with RVR status metabolic acidosis and acute kidney injury. Has also been exhibiting some delirium was managed in the ICU and IMCU and subsequently is awaiting placement. He was seen by neurologist delirium of diagnosis secondary to metabolic issues. Seroquel was started initially at 25 mg p.o. twice daily but patient developed hypotension now better improved BP, Continue seroquel 12.5mg po BID seems to have good improvement in mental status. awaiting labs due to noted hyperkalemia yesterday. Repeat covud test for placement. 10/05/2020; patient is pending for placement. Repeat Covid test is negative. Blood pressure is within normal limit. Patient is confused. 10/06/2020; repeat Covid test is negative. Patient is confused. Patient last dialysis was on 09/25, renal function is stable, no need dialysis, nephrology is following. 10/07/2020; Covid test was done yesterday and was positive. Renal function is improving and nephrology is following at this time. Last dialysis was on 09/25. Patient is pending placement. Mental health consulted for confusion. 10/08/2020; patient was calm and cooperative. Patient was on condom cath. Patient was oriented only to self. 10/09/2020; patient was calm and cooperative. Patient was oriented only to self. Renal function is improving. Patient is pending placement. 10/10/2020; pending SNF placement. Patient is stable for discharge. 10/11: Continue supportive care. Awaiting placement. This morning was still confused ambulating saying that he was leaving. No worsening respiratory status noted. Safety precautions and fall precautions discussed extensively with nursing staff 10/12: Continue supportive care, discontinue Cabral Following irrigation. We will check a CBC to ensure no further decreasing H&H. Continue current management patient tolerating diet and completing 100% of his meal per staff. Altered mental status is significantly improved. 10/13: Cabral was discontinued yesterday patient had to be straight cath we will continue to monitor if required repeat straight catheter pulled back Cabral. Blood pressure still low. Outpatient follow-up with urology strongly recommended due to presumed urinary retention although no hydronephrosis is noted. Continue awaiting placement. H&H is stable. 10/14: Cabral placed due to persistent urinary retention, hematuria is resolved, maybe as a result of patient pulling on cabral. He continues to await placement due to severe debility. Patient noted to have low BP, adjusted BB down to BID from TID. will discontinue day time seroquel. 10/15: Was discharged but did not leave due to transportation issues 10/16: Patient stable for discharge awaiting transportation discussed with team we do not know why the transportation team did not come yesterday. He is in no acute distress he is dressed and ready to go home and is thankful for the care that was provided here. I called the patients daughter and discussed her father. Discussed plan and follow up and she verablized. Septic Shock Acute hypoxemic respiratory failure 2/2 to volume overload/chf exacerbation Acute systolic heart failure exacerbation Atrial fibrillation with RVR Hematuria- resolved Acute on chronic kidney injury Hypotension Anemia Thrombocytopenia E coli bacteremia E. coli urinary tract infection NSTEMI Elevated Ddimer Leukocytosis HIV, asymptomatic HTN Coagulopathy Transaminitis History Interval history: This is 70-year-old male with HIV, HTN, and atrial fibrillation (currently on therapeutic anticoagulation with Xarelto) admitted with atrial fibrillation with RVR, SIRs, metabolic acidosis, acute kidney injury, acute hypoxic respiratory failure, hypotension, and CHF Patient seen and examined, clinical improving. No new complaints. Awaiting transportation for discharge Hospitalist Physical - Physical exam Narrative exam: Resting comfortably The patient appeared well nourished and normally developed. Vital signs as documented. Head exam is unremarkable. No scleral icterus . Neck is without jugular venous distension, thyromegaly, or carotid bruits. Lungs are clear to auscultation. Cardiac exam reveals regular rate and Rhythm. Abdominal exam reveals normal bowel sounds, nontender, no organomegaly. : Cabral in, clear suzanne urine Extremities are nonedematous and both femoral and pedal pulses are normal. ORDINARY SEAMAN: Alert awake oriented x2 no focal deficit noted, per nursing staff still with intermittent delirium - Constitutional Vitals: Temp Pulse Resp BP Pulse Ox 97.8 F 102 H 16 95/61 98 10/16/20 04:19 10/16/20 04:19 10/16/20 04:19 10/16/20 04:19 10/16/20 04:19 General appearance: Present: no acute distress HEART Score - HEART Score Troponin: Troponin T < 0.010 ng/mL (0.00-0.029) 09/22/20 05:38 Results - Labs CBC & Chem 7: 10/12/20 13:42 10/16/20 05:12 Labs: Laboratory Last Values WBC 5.2 K/mm3 (4.5-11.0) 10/12/20 13:42 RBC 2.42 M/mm3 (3.65-5.03) L 10/12/20 13:42 Hgb 8.1 gm/dl (11.8-15.2) L 10/12/20 13:42 Hct 23.5 % (35.5-45.6) L 10/12/20 13:42 MCV 97 fl (84-94) H 10/12/20 13:42 MCH 34 pg (28-32) H 10/12/20 13:42 MCHC 35 % (32-34) H 10/12/20 13:42 RDW 16.1 % (13.2-15.2) H 10/12/20 13:42 Plt Count 192 K/mm3 (140-440) 10/12/20 13:42 Lymph % (Auto) 4.3 % (13.4-35.0) L 09/27/20 04:00 Rice % (Auto) [place] 10/12/20 13:42 Eos % (Auto) 0.1 % (0.0-4.3) 09/27/20 04:00 Baso % (Auto) 0.0 % (0.0-1.8) 09/27/20 04:00 Lymph # (Auto) 0.6 K/mm3 (1.2-5.4) L 09/27/20 04:00 Rice # (Auto) 0.9 K/mm3 (0.0-0.8) H 09/27/20 04:00 Eos # (Auto) 0.0 K/mm3 (0.0-0.4) 09/27/20 04:00 Baso # (Auto) 0.0 K/mm3 (0.0-0.1) 09/27/20 04:00 Add Manual Diff Complete 10/12/20 13:42 Total Counted 100 10/12/20 13:42 Seg Neutrophils % 89.6 % (40.0-70.0) H 09/27/20 04:00 Seg Neuts % (Manual) 69.0 % (40.0-70.0) 10/12/20 13:42 Band Neutrophils % 2.0 % 09/23/20 04:36 Lymphocytes % (Manual) 21.0 % (13.4-35.0) 10/12/20 13:42 Monocytes % (Manual) 6.0 % (0.0-7.3) 10/12/20 13:42 Eosinophils % (Manual) 3.0 % (0.0-4.3) 10/12/20 13:42 Basophils % (Manual) 1.0 % (0.0-1.8) 10/12/20 13:42 Nucleated RBC % Not Reportable 10/12/20 13:42 Seg Neutrophils # 13.1 K/mm3 (1.8-7.7) H 09/27/20 04:00 Seg Neutrophils # Man 3.6 K/mm3 (1.8-7.7) 10/12/20 13:42 Band Neutrophils # 0.0 K/mm3 10/12/20 13:42 Abs Lymphs (Manual) 223 cells/uL (850-3900) L 09/19/20 13:35 Lymphocytes # (Manual) 1.1 K/mm3 (1.2-5.4) L 10/12/20 13:42 Abs React Lymphs (Man) 0.0 K/mm3 10/12/20 13:42 Monocytes # (Manual) 0.3 K/mm3 (0.0-0.8) 10/12/20 13:42 Eosinophils # (Manual) 0.2 K/mm3 (0.0-0.4) 10/12/20 13:42 Basophils # (Manual) 0.1 K/mm3 (0.0-0.1) 10/12/20 13:42 Metamyelocytes # 0.0 K/mm3 10/12/20 13:42 Myelocytes # 0.0 K/mm3 10/12/20 13:42 Promyelocytes # 0.0 K/mm3 10/12/20 13:42 Blast Cells # 0.0 K/mm3 10/12/20 13:42 WBC Morphology Not Reportable 10/12/20 13:42 Hypersegmented Neuts Not Reportable 10/12/20 13:42 Hyposegmented Neuts Not Reportable 10/12/20 13:42 Hypogranular Neuts Not Reportable 10/12/20 13:42 Smudge Cells Not Reportable 10/12/20 13:42 Toxic Granulation Not Reportable 10/12/20 13:42 Toxic Vacuolation Not Reportable 10/12/20 13:42 Dohle Bodies Not Reportable 10/12/20 13:42 Pelger-Huet Anomaly Not Reportable 10/12/20 13:42 Vinh Rods Not Reportable 10/12/20 13:42 Platelet Estimate Consistent w auto 10/12/20 13:42 Clumped Platelets Not Reportable 10/12/20 13:42 Plt Clumps, EDTA Not Reportable 10/12/20 13:42 Large Platelets Not Reportable 10/12/20 13:42 Giant Platelets Not Reportable 10/12/20 13:42 Platelet Satelliting Not Reportable 10/12/20 13:42 Plt Morphology Comment Not Reportable 10/12/20 13:42 RBC Morphology Normal 10/12/20 13:42 Dimorphic RBCs Not Reportable 10/12/20 13:42 Polychromasia Not Reportable 10/12/20 13:42 Hypochromasia Not Reportable 10/12/20 13:42 Poikilocytosis Not Reportable 10/12/20 13:42 Anisocytosis Not Reportable 10/12/20 13:42 Microcytosis Not Reportable 10/12/20 13:42 Macrocytosis Not Reportable 10/12/20 13:42 Spherocytes Not Reportable 10/12/20 13:42 Pappenheimer Bodies Not Reportable 10/12/20 13:42 Sickle Cells Not Reportable 10/12/20 13:42 Target Cells Not Reportable 10/12/20 13:42 Tear Drop Cells Not Reportable 10/12/20 13:42 Ovalocytes Not Reportable 10/12/20 13:42 Helmet Cells Not Reportable 10/12/20 13:42 [place] Bodies Not Reportable 10/12/20 13:42 [place] Rings Not Reportable 10/12/20 13:42 [place] Cells Not Reportable 10/12/20 13:42 Bite Cells Not Reportable 10/12/20 13:42 Crenated Cell Not Reportable 10/12/20 13:42 Elliptocytes Not Reportable 10/12/20 13:42 Acanthocytes (Spur) Not Reportable 10/12/20 13:42 Rouleaux Not Reportable 10/12/20 13:42 Hemoglobin C Crystals Not Reportable 10/12/20 13:42 Schistocytes Not Reportable 10/12/20 13:42 Malaria parasites Not Reportable 10/12/20 13:42 Zachary Bodies Not Reportable 10/12/20 13:42 Hem Pathologist Commnt No 10/12/20 13:42 PT 15.7 Sec. (12.2-14.9) H 09/24/20 12:13 INR 1.27 (0.87-1.13) H 09/24/20 12:13 APTT 25.7 Sec. (24.2-36.6) 09/24/20 12:13 D-Dimer 1772.86 ng/mlDDU (0-234) H 09/24/20 05:00 Heparin Anti-Xa Level 0.10 U.I./ml (0.3-0.7) L 09/20/20 04:00 Heparin Anti-Xa, Unfract Negative (Negative) 09/22/20 15:12 ABG pH 7.508 (7.320-7.450) H 09/17/20 10:28 POC ABG pCO2 22.8 mmHg (32.0-48.0) L 09/17/20 10:28 POC ABG pO2 66.8 mmHg (83-108) L 09/17/20 10:28 POC ABG HCO3 17.7 09/17/20 10:28 ABG O2 Saturation 93.4 (0-100) 09/17/20 10:28 POC ABG Base Excess -3.5 09/17/20 10:28 ABG Hemoglobin 12.7 (12.0-17.5) 09/17/20 10:28 ABG Oxyhemoglobin 92.7 (94-98) L 09/17/20 10:28 ABG Methemoglobin 0.3 (0.0-1.5) 09/17/20 10:28 ABG Sodium 127.4 mmol/L (136.0-145.0) L 09/17/20 10:28 ABG Potassium 4.7 mmol/L (3.40-4.50) H 09/17/20 10:28 ABG Chloride 101.0 mmol/L (98-107) 09/17/20 10:28 ABG Glucose 121 mg/dL (65-95) H 09/17/20 10:28 Carboxyhemoglobin 0.4 (0.5-1.5) L 09/17/20 10:28 FiO2 % 21 09/17/20 10:28 Sodium 134 mmol/L (137-145) L 10/16/20 05:12 Potassium 3.7 mmol/L (3.6-5.0) 10/16/20 05:12 Chloride 100.7 mmol/L (98-107) 10/16/20 05:12 Carbon Dioxide 28 mmol/L (22-30) 10/16/20 05:12 Anion Gap 9 mmol/L 10/16/20 05:12 BUN 18 mg/dL (9-20) 10/16/20 05:12 Creatinine 1.9 mg/dL (0.8-1.3) H 10/16/20 05:12 Estimated GFR 43 ml/min 10/16/20 05:12 BUN/Creatinine Ratio 9 % 10/16/20 05:12 Glucose 84 mg/dL (75-100) 10/16/20 05:12 POC Glucose 74 mg/dL (70-105) 10/15/20 22:15 Lactic Acid 1.00 mmol/L (0.7-2.0) 09/20/20 17:10 Calcium 8.9 mg/dL (8.4-10.2) 10/16/20 05:12 Phosphorus 2.90 mg/dL (2.5-4.5) 09/26/20 07:06 Magnesium 1.70 mg/dL (1.7-2.3) 09/26/20 07:06 Ferritin 1190.0 ng/mL (30.0-300.0) H 09/24/20 05:00 Total Bilirubin 0.80 mg/dL (0.1-1.2) 09/30/20 04:47 AST 14 units/L (5-40) 09/30/20 04:47 ALT 21 units/L (7-56) 09/30/20 04:47 Alkaline Phosphatase 81 units/L (35-129) 09/30/20 04:47 Lactate Dehydrogenase 276 units/L (91-180) H 09/24/20 05:00 Total Creatine Kinase 20 units/L (55-170) L 09/19/20 03:30 Troponin T < 0.010 ng/mL (0.00-0.029) 09/22/20 05:38 C-Reactive Protein 4.20 mg/dL (0.00-1.30) H 09/24/20 05:00 NT-Pro-B Natriuret Pep 05267 pg/mL (0-900) H 09/17/20 10:47 Serum Total Protein 5.5 g/dL (6.1-8.1) L 09/30/20 04:47 Total Protein 5.9 g/dL (6.3-8.2) L 09/30/20 04:47 Albumin 2.1 g/dL (3.8-4.8) L 09/30/20 04:47 Albumin 2.2 g/dL (3.9-5) L 09/30/20 04:47 Albumin/Globulin Ratio 0.6 % 09/30/20 04:47 Odpww-9-Wfussuuia 0.3 g/dL (0.2-0.3) 09/30/20 04:47 Bxwod-7-Pkcofgtad 0.7 g/dL (0.5-0.9) 09/30/20 04:47 Beta Globulins 0.3 g/dL (0.2-0.5) 09/30/20 04:47 Gamma Globulins 1.7 g/dL (0.8-1.7) 09/30/20 04:47 Abnorm Protein Band 1 see below 09/30/20 04:47 PEP Interpretation see below 09/30/20 04:47 Triglycerides 137 mg/dL (2-149) 09/17/20 13:54 Cholesterol 48 mg/dL (50-199) L 09/17/20 13:54 LDL Cholesterol Direct 4 mg/dL (50-130) L 09/17/20 13:54 HDL Cholesterol 9 mg/dL (40-59) L 09/17/20 13:54 Cholesterol/HDL Ratio 5.33 % 09/17/20 13:54 Free PSA See scanned result 09/17/20 17:35 % Free PSA Calc See scanned result 09/17/20 17:35 Total PSA See scanned result 09/17/20 17:35 Serotonin Release Assay See scanned result 09/22/20 15:12 Procalcitonin 2.10 ng/mL (<0.15) 09/25/20 06:40 PTH Intact 161.4 pg/mL (15-65) H 09/19/20 03:30 Arterial Blood Glucose 121 mg/dL (65-95) H 09/17/20 10:28 Arterial Blood Ionized Calcium 5.0 mg/dL (4.6-5.3) 09/17/20 10:28 Urine Color Yellow (Yellow) 09/18/20 12:00 Urine Turbidity Cloudy (Clear) 09/18/20 12:00 Urine pH 5.0 (5.0-7.0) 09/18/20 12:00 Ur Specific [place] 1.009 (1.003-1.030) 09/18/20 12:00 Urine Protein 30 mg/dl mg/dL (Negative) 09/18/20 12:00 Urine Glucose (UA) Neg mg/dL (Negative) 09/18/20 12:00 Urine Ketones Neg mg/dL (Negative) 09/18/20 12:00 Urine Blood Sm (Negative) 09/18/20 12:00 Urine Nitrite Neg (Negative) 09/18/20 12:00 Urine Bilirubin Neg (Negative) 09/18/20 12:00 Urine Urobilinogen < 2.0 mg/dL (<2.0) 09/18/20 12:00 Ur Leukocyte Esterase Mod (Negative) 09/18/20 12:00 Urine WBC (Auto) 71.0 /HPF (0.0-6.0) H 09/18/20 12:00 Urine RBC (Auto) 2.0 /HPF (0.0-6.0) 09/18/20 12:00 U Epithel Cells (Auto) 1.0 /HPF (0-13.0) 09/18/20 12:00 Urine Bacteria (Auto) 4+ /HPF (Negative) 09/18/20 12:00 Urine WBC Clumps 2+ /HPF 09/18/20 12:00 Hyaline Casts 3 /LPF 09/18/20 12:00 Granular Casts 3 /LPF 09/18/20 12:00 Urine Mucus Few /HPF 09/18/20 12:00 Urine Eosinophils None seen (None Seen) 09/19/20 03:15 Urine Creatinine 61.0 mg/dL (0.1-20.0) H 09/18/20 12:00 Urine Sodium 62 mmol/L 09/18/20 12:00 Random Vancomycin 12.7 ug/mL (0-40.0) 09/19/20 03:30 Valproic Acid 17.8 ug/mL (50-100) L 10/03/20 08:12 Heparin-induced Plt Ab Weak positive (Negative) H 09/22/20 15:12 UF Heparin High Dose 0 % Release 09/22/20 15:12 COR[place]ON UFH Low Dose 0.1 0 % Release 09/22/20 15:12 [place] UFH Low Dose 0.5 0 % Release 09/22/20 15:12 Lymph Enumerat CD4/CD8 0.70 (0.86-5.00) L 09/19/20 13:35 % CD3 Cells 79 % (57-85) 09/19/20 13:35 Absolute CD3 Count 175 cells/uL (840-3060) L 09/19/20 13:35 % CD4 Cells 31 % (30-61) 09/19/20 13:35 Absolute CD4 Count 70 cells/uL (490-1740) L 09/19/20 13:35 % CD8 Cells 45 % (12-42) H 09/19/20 13:35 Absolute CD8 Count 101 cells/uL (180-1170) L 09/19/20 13:35 % CD19 Cells 12 % (6-29) 09/19/20 13:35 Absolute CD19 Count 26 cells/uL (110-660) L 09/19/20 13:35 C. difficile Tox (PCR) Negative (Negative) 10/09/20 15:15 Coronavirus (PCR) Positive (Negative) A 10/06/20 Unknown Hepatitis A IgM Ab Non-reactive (NonReactive) 09/20/20 17:10 Hep Bs Antigen Non-reactive (Negative) 09/20/20 17:10 Hep B Core IgM Ab Non-reactive (NonReactive) 09/20/20 17:10 Hepatitis C Antibody Non-reactive (NonReactive) 09/20/20 17:10 HIV-1 RNA PCR copies/ml 67 Copies/mL H 09/19/20 13:35 HIV-1 RNA (PCR) log 1.83 Log cps/mL H 09/19/20 13:35 Cabral/IV: Voiding Method Urinal Active Medications - Current Medications Current Medications: Generic Name Dose Route Start Last Admin Trade Name Freq PRN Reason Stop Dose Admin Acetaminophen 650 mg 09/17/20 13:52 10/13/20 11:55 Acetaminophen 325 Mg Tab PO 650 mg Q4H PRN Administration Pain MILD(1-3)/Fever >100.5/ANGEL Albuterol 2.5 mg 09/17/20 13:52 09/17/20 20:47 Albuterol 2.5 Mg/3 Ml Nebu IH 2.5 mg Q4HRT PRN Administration Shortness Of Breath Amiodarone HCl 200 mg 10/01/20 22:00 10/15/20 22:27 Amiodarone 200 Mg Tab PO 200 mg BID EDEI Administration Lipase/Protease/Amylase 1 each 09/20/20 13:10 Lipase 10,500/Protease 25,000/Amylase 43,750 (Units) Dr Patrick FEEDTUBE PRN PRN For Clogged Feeding Tube Apixaban 5 mg 10/05/20 22:00 10/15/20 22:27 Apixaban 5 Mg Tab PO 5 mg Q12HR EDIE Administration Ascorbic Acid 500 mg 09/20/20 22:00 10/15/20 22:27 Ascorbic Acid 500 Mg Tab PO 500 mg BID EDIE Administration Cholecalciferol 1,000 unit 09/21/20 10:00 10/15/20 09:59 Cholecalciferol (Vit D3) 1000 Unit (25 Mcg) Tab PO 1,000 unit QDAY EDIE Administration Docusate Sodium 100 mg 10/05/20 11:00 10/15/20 22:26 Docusate Sodium 100 Mg/10 Ml Oral Liqd PO 100 mg BID EDIE Administration Emtricitabine 200 mg 09/30/20 11:00 10/14/20 10:33 Emtricitabine 200 Mg Cap PO 200 mg Q48H EDIE Administration Famotidine 20 mg 09/24/20 10:00 10/15/20 10:00 Famotidine 20 Mg Tab PO 20 mg DAILY EDIE Administration Haloperidol Lactate 5 mg 10/01/20 11:34 10/14/20 15:33 Haloperidol Lactate 5 Mg/1 Ml Inj IM 5 mg Q6H PRN Administration Agitation Sodium Chloride 1,000 mls @ 50 mls/hr 10/11/20 15:45 10/15/20 04:28 Nacl 0.9% 1000 Ml IV 50 mls/hr DIRECT EDIE Administration Metoprolol Tartrate 12.5 mg 10/14/20 10:00 10/15/20 21:48 Metoprolol Tartrate 25 Mg Tab PO Not Given BID EDIE Midodrine 10 mg 10/07/20 08:00 10/15/20 18:53 Midodrine 5 Mg Tab PO 10 mg TID@0800,1200,1600 EDIE Administration Ondansetron HCl 4 mg 09/17/20 13:52 Ondansetron 4 Mg/2 Ml Inj IV Q8H PRN Nausea And Vomiting Quetiapine Fumarate 12.5 mg 10/03/20 22:00 10/15/20 22:28 Quetiapine 25 Mg Tab PO 12.5 mg QHS EDIE Administration Simple Syrup 15 ml 09/20/20 13:10 Simple Syrup 15 Ml FEEDTUBE PRN PRN Hypoglycemia Simple Syrup 30 ml 09/20/20 13:10 Simple Syrup 15 Ml FEEDTUBE PRN PRN Hypoglycemia Sodium Bicarbonate 325 mg 09/20/20 13:10 Sodium Bicarbonate 325 Mg Tab FEEDTUBE PRN PRN For Clogged Feeding Tube Sodium Chloride 10 ml 09/17/20 22:00 10/15/20 21:49 Sodium Chloride 0.9% 10 Ml Flush Syringe IV Not Given BID EDIE Sodium Chloride 10 ml 09/17/20 13:52 10/12/20 10:19 Sodium Chloride 0.9% 10 Ml Flush Syringe IV 10 ml PRN PRN Administration LINE FLUSH Tamsulosin HCl 0.4 mg 10/07/20 13:00 10/15/20 10:00 Tamsulosin 0.4 Mg Cap PO 0.4 mg QDAY EDIE Administration Tenofovir Disoproxil Fumarate 300 mg 09/30/20 11:00 10/14/20 10:33 Tenofovir 300 Mg Tab PO 300 mg Q48H EDIE Administration Valproic Acid 250 mg 10/03/20 22:00 10/15/20 22:27 Valproic Acid 250 Mg Cap PO 250 mg BID EDIE Administration Zinc Sulfate 220 mg 09/21/20 10:00 10/15/20 10:00 Zinc Sulfate 220 Mg Cap PO 220 mg QDAY EDIE Administration Nutrition/Malnutrition Assess - Dietary Evaluation Nutrition/Malnutrition Findings: Nutrition Notes Start: 09/18/20 11:30 Freq: Status: Active Protocol: Document 10/13/20 12:18 (Rec: 10/13/20 12:22 [id number]) Nutrition Notes Initial or Follow up Reassessment Current Diagnosis Acute Kidney Injury,Sepsis, Hypertension,Heart Failure, Respiratory Failure Other Pertinent Diagnosis COVID-19 (+), AMS, UTI, afib with RVR, HIV (+) Current Diet Pureed Renal Labs/Tests Na 135 BUN 22 Cr 1.8 Pertinent Medications Reviewed Height 6 ft 1 in Weight 88.6 kg [place] Body Weight (kg) 83.63 BMI 25.7 Weight Status Overweight Subjective/Other Information FU for intakes. Per chart, pt eating 75-100% of meals. RN unsure of intake amount but knows pt is eating. Percent of energy/protein needs met: 77%/92% Burn Absent Trauma Absent GI Symptoms None Current % PO Good (75-100%) Minimum of two criteria No Reduced Body Welder Strength Measurably Reduced (severe) #2 Nutrition Diagnosis Inadequate oral intake Diagnosis Progress(for reassessment Continues documentation) Is patient on ventilator? No Is Patient Ambulatory and/or Out of Bed No REE-([facility]-confined to bed) 783 Calculation Used for Recommendations [facility] Additional Notes Pro needs: 73 - 88g (1 - 1.2 g /kg 73kg) Fluid needs 1-1.5L/day Nutrition Intervention Change Diet Order: Continue pureed renal diet Add Supplement/Snack (indicate name/kcal Nepro BID /protein ) Provides kCal: 850 Provides Protein (gm) 38 Goal #1 Meet at least 75% of estimated kcal and protein needs via PO Goal #2 Weight maintenance/weight gain Anticipated Discharge Needs: Pureed Renal Diet Follow-Up By: 10/19/20 Additional Comments FU for stable intakes and ONS tolerance
== END 2020-10-16 09:46 | disposition home health service (06) | DRG 974 ==
LOC: ED 09:20 → 4A 14:11 → IMCU 17:02 → CC1 23:40 → IMCU 09-25 20:37 → 3A 09-30 15:55
PROVIDERS: ADMIT Internal Medicine; ATTEND Internal Medicine
PROC: 02HV33Z Insertion of Infusion Device into Superior Vena Cava, Percutaneous Approach (ICD-10-PCS; 2020-09-17)
PROC: B548ZZA Ultrasonography of Superior Vena Cava, Guidance (ICD-10-PCS; 2020-09-17)
PROC: 4A033R1 Measurement of Arterial Saturation, Peripheral, Percutaneous Approach (ICD-10-PCS; 2020-09-17)
PROC: 5A09557 Assistance with Respiratory Ventilation, Greater than 96 Consecutive Hours, Continuous Positive Airway Pressure (ICD-10-PCS; principal; 2020-09-18)
PROC: 5A1D70Z Performance of Urinary Filtration, Intermittent, Less than 6 Hours Per Day (ICD-10-PCS; 2020-09-20)
PROC: 02HV33Z Insertion of Infusion Device into Superior Vena Cava, Percutaneous Approach (ICD-10-PCS; 2020-09-20)
PROC: B548ZZA Ultrasonography of Superior Vena Cava, Guidance (ICD-10-PCS; 2020-09-20)
PROC: 5A1D70Z Performance of Urinary Filtration, Intermittent, Less than 6 Hours Per Day (ICD-10-PCS; 2020-09-21)
PROC: 5A1D70Z Performance of Urinary Filtration, Intermittent, Less than 6 Hours Per Day (ICD-10-PCS; 2020-09-25)
DX: A41.9 Sepsis, unspecified organism (principal); I21.4 Non-ST elevation (NSTEMI) myocardial infarction; B20 Human immunodeficiency virus [HIV] disease; N17.0 Acute kidney failure with tubular necrosis; J96.01 Acute respiratory failure with hypoxia; I50.21 Acute systolic (congestive) heart failure; G93.41 Metabolic encephalopathy; U07.1 COVID-19; R65.21 Severe sepsis with septic shock; E87.2 Acidosis; E87.1 Hypo-osmolality and hyponatremia; N39.0 Urinary tract infection, site not specified; E87.3 Alkalosis; D68.9 Coagulation defect, unspecified; I13.0 Hypertensive heart and chronic kidney disease with heart failure and stage 1 through stage 4 chronic kidney disease, or unspecified chronic kidney disease; Z20.822 Contact with and (suspected) exposure to COVID-19; I95.9 Hypotension, unspecified; E87.70 Fluid overload, unspecified; B96.20 Unspecified Escherichia coli [E. coli] as the cause of diseases classified elsewhere; E87.5 Hyperkalemia; D69.6 Thrombocytopenia, unspecified; R41.0 Disorientation, unspecified; E83.42 Hypomagnesemia; D64.9 Anemia, unspecified; N18.9 Chronic kidney disease, unspecified; I48.91 Unspecified atrial fibrillation; E78.5 Hyperlipidemia, unspecified; Z87.891 Personal history of nicotine dependence; Z79.899 Other long term (current) drug therapy; Z79.01 Long term (current) use of anticoagulants; Z79.891 Long term (current) use of opiate analgesic; Z82.49 Family history of ischemic heart disease and other diseases of the circulatory system
CPT/HCPCS: 36415; 70450; 71045; 73521; 74018; 74176; 76705; 76770; 78226; 80048; 80053; 80061; 80074; 80164; 80202; 81001; 82024; 82140; 82550; 82565; 82570; 82728; 82805; 82962; 83615; 83735; 83880; 83970; 84100; 84145; 84154; 84165; 84300; 84439; 84443; 84484; 85007; 85014; 85018; 85025; 85027; 85049; 85379; 85520; 85610; 85730; 86022; 86140; 87040; 87076; 87086; 87186; 87205; 87493; 87536; 89050; 93005; 93306; 93970; 94640; 94644; 94660; 96374; 96375; G0378; A9537; J0282; J0692; J0696; J1170; J1630; J1644; J1940; J2060; J2185; J2270; J2370; J3370; J3475; J7030; J7040; J7050; J7060; J8540; U0003

== ENCOUNTER 2020-12-31 08:28 | Emergency (ER) | payer MEDICARE ==
--- NOTE | 2020-12-31 15:25 | Emergency Department Report ---
ED Male HPI - General Chief complaint: Urogenital-Male Stated complaint: MORALES CATHERER OUT Source: patient, EMS Mode of arrival: Stretcher Limitations: No Limitations - History of Present Illness Initial comments: 70-year-old -[place] male presents to the emergency room stating his Morales catheter is not working. Patient states he has had a catheter changed about a week ago. Patient states he has a Morales catheter due to enlarged prostate. Patient states he is followed by urology at [place] but called today and they are closed on Fridays. Patient therefore came to be evaluated for catheter change. Onset/Timin -: days(s) - Related Data Home Medications Medication Instructions Recorded Confirmed Last Taken AtorvaSTATin [Lipitor] 20 mg PO QHS 09/18/20 09/18/20 Unknown Dolutegravir [Tivicay] 50 mg PO DAILY 09/18/20 09/18/20 Unknown Emtricitabine/Tenofov Alafenam 1 tab PO DAILY 09/18/20 09/18/20 Unknown [Descovy 200-25 mg (Nf)] allopurinoL [Zyloprim] 300 mg PO QDAY 09/18/20 09/18/20 Unknown Previous Rx's Medication Instructions Recorded Last Taken Type Ascorbic Acid [Vitamin C] 500 mg PO BID #60 tablet 10/01/20 Unknown Rx Cholecalciferol Vit D3 [Vitamin D3 1,000 unit PO QDAY #30 tablet 10/01/20 Unknown Rx 1,000 UNIT TAB] Famotidine [Pepcid] 20 mg PO DAILY #30 tablet 10/01/20 Unknown Rx Zinc Sulfate 220 mg PO QDAY #30 capsule 10/01/20 Unknown Rx carvediloL [Coreg] 3.125 mg PO BID #60 tablet 10/01/20 Unknown Rx Amiodarone [Cordarone 200 MG TAB] 200 mg PO BID #60 tablet 10/15/20 Unknown Rx Apixaban [Eliquis] 5 mg PO Q12HR #60 tablet 10/15/20 Unknown Rx Midodrine [Proamatine] 10 mg PO TID@0800,1200,1600 #90 10/15/20 Unknown Rx tablet QUEtiapine [SEROquel] 12.5 mg PO QHS #30 tablet 10/15/20 Unknown Rx Tamsulosin [Flomax] 0.4 mg PO QDAY #30 capsule 10/15/20 Unknown Rx Valproic Acid [Depakene] 250 mg PO BID #60 capsule 10/15/20 Unknown Rx Allergies Allergy/AdvReac Type Severity Reaction Status Date / Time heparin AdvReac thrombocyto Verified 09/29/20 16:33 [facility] ED Review of Systems ROS: Stated complaint: MORALES CATHERER OUT Other details as noted in HPI ED Past Medical Hx - Past Medical History Previous Medical History?: Yes Hx Hypertension: Yes Hx Heart Attack/AMI: Yes Hx Congestive Heart Failure: Yes Hx HIV: Yes (Unknown last CD4. Followed at [place]) Additional medical history: Afib - Surgical History Past Surgical History?: Yes Additional Surgical History: Herniorrhaphy - Social History Smoking Status: Former Smoker (None since 1985) Substance Use Type: None (Denies illicit drug use) - Medications Home Medications: Home Medications Medication Instructions Recorded Confirmed Last Taken Type AtorvaSTATin [Lipitor] 20 mg PO QHS 09/18/20 09/18/20 Unknown History Dolutegravir [Tivicay] 50 mg PO DAILY 09/18/20 09/18/20 Unknown History Emtricitabine/Tenofov Alafenam 1 tab PO DAILY 09/18/20 09/18/20 Unknown History [Descovy 200-25 mg (Nf)] allopurinoL [Zyloprim] 300 mg PO QDAY 09/18/20 09/18/20 Unknown History Ascorbic Acid [Vitamin C] 500 mg PO BID #60 tablet 10/01/20 Unknown Rx Cholecalciferol Vit D3 [Vitamin D3 1,000 unit PO QDAY #30 tablet 10/01/20 Unknown Rx 1,000 UNIT TAB] Famotidine [Pepcid] 20 mg PO DAILY #30 tablet 10/01/20 Unknown Rx Zinc Sulfate 220 mg PO QDAY #30 capsule 10/01/20 Unknown Rx carvediloL [Coreg] 3.125 mg PO BID #60 tablet 10/01/20 Unknown Rx Amiodarone [Cordarone 200 MG TAB] 200 mg PO BID #60 tablet 10/15/20 Unknown Rx Apixaban [Eliquis] 5 mg PO Q12HR #60 tablet 10/15/20 Unknown Rx Midodrine [Proamatine] 10 mg PO TID@0800,1200,1600 #90 10/15/20 Unknown Rx tablet QUEtiapine [SEROquel] 12.5 mg PO QHS #30 tablet 10/15/20 Unknown Rx Tamsulosin [Flomax] 0.4 mg PO QDAY #30 capsule 10/15/20 Unknown Rx Valproic Acid [Depakene] 250 mg PO BID #60 capsule 10/15/20 Unknown Rx ED Physical Exam - General Limitations: No Limitations General appearance: alert, in no apparent distress - Head Head exam: Present: atraumatic, normocephalic - Eye Eye exam: Present: normal appearance - ENT ENT exam: Present: normal external ear exam - Neck Neck exam: Present: normal inspection - Respiratory Respiratory exam: Absent: respiratory distress, chest wall tenderness, accessory muscle use - Cardiovascular Cardiovascular Exam: Present: regular rate - Extremities Exam Extremities exam: Present: normal inspection, full ROM - Back Exam Back exam: Present: normal inspection, full ROM - Neurological Exam Neurological exam: Present: alert, oriented X3, normal gait - Psychiatric Psychiatric exam: Present: normal affect, normal mood - Skin Skin exam: Present: warm, dry, intact, normal color. Absent: rash ED Course Vital Signs 12/31/20 08:41 Temperature 97.9 F Pulse Rate 119 H Respiratory 18 Rate Blood Pressure 119/93 [Right] O2 Sat by Pulse 97 Oximetry ED Medical Decision Making - Medical Decision Making 70-year-old -[place] male presents to the emergency room stating his Morales catheter is not working. Patient states he has had a catheter changed about a week ago. Patient states he has a Morales catheter due to enlarged prostate. Patient states he is followed by urology at [place] but called today and they are closed on Fridays. Patient therefore came to be evaluated for catheter change. Morales catheter to be replaced. Patient is to follow-up with his urologist at [place] Critical care attestation.: If time is entered above; I have spent that time in minutes in the direct care of this critically ill patient, excluding procedure time. ED Disposition Clinical Impression: Encounter for Morales catheter replacement Disposition: HOME / SELF CARE / HOMELESS Is pt being admited?: No Does the pt Need Aspirin: No Condition: Stable Additional Instructions: Please follow-up with your [place] urologist. Referrals: PRIMARY CARE, [Primary Care Provider] - 3-5 Days [facility] [Outside] - 3-5 Days Time of Disposition: 18:22
[2020-12-31 18:51] VITALS: BP 150/90
== END 2020-12-31 18:50 | disposition home or self-care (01) ==
LOC: ED 08:28
DX: Z46.6 Encounter for fitting and adjustment of urinary device (principal); I11.0 Hypertensive heart disease with heart failure; I50.9 Heart failure, unspecified; I25.2 Old myocardial infarction; I48.91 Unspecified atrial fibrillation; Z88.8 Allergy status to other drugs, medicaments and biological substances; Z79.899 Other long term (current) drug therapy; Z87.891 Personal history of nicotine dependence; Z98.890 Other specified postprocedural states; Z21 Asymptomatic human immunodeficiency virus [HIV] infection status
CPT/HCPCS: 51702